=== PATIENT | male | born 1955 | race Two or more races ===

== ENCOUNTER 2016-11-28 16:06 | Inpatient (IN) | payer MEDICARE ==
[~2016-11-28] VITALS: Ht 170.2 cm; Wt 74.5 kg
[~2016-11-28 16:06] MED LIST: ALPR0.5T PO; ALPR0.5T6 PO; ALPR1TAB5; AMLO10TA2 PO; AMLO10TA4; AMLO10TA4 PO; ASPI-39 PO; CALC200T3 PO; CALC500O; CALC500T PO; CHOL20003 PO; CLON0.3T PO; CLOP75TA PO; DEXT50DI2 IV; DICY10CA53 PO; FERR210T; FURO80TA3 PO; FURO80TA72 PO; HYDR-2869; HYDR100T24 PO; Hydrocodone/Acetaminophen PO; ISOS30TA4 PO; LANT1000; LOSA100T6 PO; METO100T2 PO; OMEP20CA4 PO; OMEP20TA63 PO; PANT40TA3 PO; PARO10TA24 PO; PARO20TA2 PO; SULF500T PO; TAMS0.4C97 PO; VIT1TABL71 PO; [UNRECOGNIZED DRUG - CODE] PO; [UNRECOGNIZED DRUG - OTHER] PO
[2016-11-28 17:44] LABS: BASO # 0.1 x10^3/uL (0.0-0.2); BASO % 1 % (0-3); EOS % 3 % (0-3); HEMATOCRIT 35.3 % (39.0-53.0); HEMOGLOBIN 11.8 g/dL (13.0-17.5); LYMPH # 1.3 x10^3/uL (1.0-4.8); LYMPH % 12 % (24-48); MEAN CORPUSCULAR HEMOGLOBIN 31 pg (25-35); MEAN CORPUSCULAR HGB CONC 33 g/dL (31-37); MEAN CORPUSCULAR VOLUME 93 fL (79-100); MONO % 12 % (0-9); NEUT % 71 % (31-73); PLATELET COUNT 188 x10^3/uL (140-400); RED BLOOD COUNT 3.79 x10^6/uL (4.30-5.70); RED CELL DISTRIBUTION WIDTH 12.8 % (11.5-14.5)
[2016-11-28] MEDS ORDERED: ALPRAZOLAM 0.5 MG TABLET PO ONE (17:45)
[2016-11-28] MEDS ORDERED: IV NORMAL SALINE 500ML BAG 500 ML IV ONE (17:45)
[2016-11-28 18:00] LABS: ALBUMIN 3.8 g/dL (3.4-5.0); ALBUMIN/GLOBULIN RATIO 1.1 (1.0-1.7); CALCIUM 7.8 mg/dL (8.5-10.1); CREATININE 11.4 mg/dL (0.7-1.3); GFR 4.6; TOTAL BILIRUBIN 0.4 mg/dL (0.2-1.0); TOTAL PROTEIN 7.4 g/dL (6.4-8.2)
--- NOTE | 2016-11-28 18:02 | PHYS DOC ---
Past Medical History Past Medical History: Hypertension, AR, Renal Disease, Renal Failure Additional Past Medical Histor: Ulcers, Cardiac Stent, polycystic disease, dialysis Past Surgical History: Appendectomy, Cholecystectomy, Other Additional Past Surgical Histo: Dialysis shunt L) arm. cardiac stent, lens implants Alcohol Use: Sober Drug Use: None Adult General Chief Complaint Chief Complaint: NAUSEA/VOMITING/DIARRHA HPI HPI 61-year-old male with a history of multiple medical problems including end- stage renal disease on dialysis presents stating he has a headache and body aches some shortness of breath and generally just feeling bad. He states he had dialysis yesterday and was half a kilo below his dry weight. He also states that he is been very anxious lately and has actually out of his Xanax that he takes 3 times daily. He states he didn't have to wait and see his family doctor before he can get this prescription refill. He denies any fever chills or sweats. He's had a mild headache but no neck pain. He also states he has had a little bit of diarrhea today. He also saw his radar technician in the clinic and was told that his potassium was elevated. [] Review of Systems Review of Systems Constitutional: Denies fever or chills [] Eyes: Denies change in visual acuity, redness, or eye pain [] HENT: Denies nasal congestion or sore throat [] Respiratory: Denies cough or shortness of breath [] Cardiovascular: No additional information not addressed in HPI [] GI: Denies abdominal pain, nausea, vomiting, bloody stools or diarrhea [] : Denies dysuria or hematuria [] Musculoskeletal: Denies back pain or joint pain [] Integument: Denies rash or skin lesions [] Neurologic: Denies headache, focal weakness or sensory changes [] Endocrine: Denies polyuria or polydipsia [] Current Medications Current Medications Current Medications Medications (Trade) Dose Ordered Sig/Cirilo Start Time Stop Time Status Last Admin Dose Admin Albuterol Sulfate (Ventolin Neb Soln) 5 mg 1X ONCE 11/28/16 18:15 11/28/16 18:19 DC 11/28/16 18:39 5 MG Alprazolam 1 mg 1 mg 1X ONCE 11/28/16 17:45 11/28/16 17:46 DC 11/28/16 18:10 1 MG Calcium Gluconate 1,000 mg 1X ONCE 11/28/16 18:15 11/28/16 18:19 DC 11/28/16 18:28 1,000 MG Dextrose 25 gm 1X ONCE 11/28/16 18:15 11/28/16 18:19 DC 11/28/16 18:39 25 GM Insulin Human Regular (Novolin R Vial) 10 unit 1X ONCE 11/28/16 18:15 11/28/16 18:19 DC 11/28/16 18:37 10 UNIT Sodium Polystyrene Sulfonate (Kayexalate) 15 gm 1X ONCE 11/28/16 18:15 11/28/16 18:19 DC 11/28/16 18:39 15 GM Sodium Bicarbonate 50 meq 1X ONCE 11/28/16 18:15 11/28/16 18:19 DC 11/28/16 18:35 50 MEQ Sodium Chloride (Iv Sodium Chloride 0.9% 500ml Bag) 500 ml @ 0 mls/hr 1X ONCE 11/28/16 17:45 11/28/16 17:46 DC 11/28/16 18:10 0 MLS/HR Allergies Allergies Allergies Coded Allergies Type Severity Reaction Last Updated Verified aspirin Adverse Reaction Intermediate GI UPSET, TAKES 81MG ASPIRIN AT HOME 04/23 Yes Physical Exam Physical Exam Constitutional: Well developed, well nourished, no acute distress, non-toxic appearance. [] HENT: Normocephalic, atraumatic, bilateral external ears normal, oropharynx moist, no oral exudates, nose normal. [] Eyes: PERRLA, EOMI, conjunctiva normal, no discharge. [] Neck: Normal range of motion, no tenderness, supple, no stridor. [] Cardiovascular:Heart rate regular rhythm, no murmur [] Lungs & Thorax: Bilateral breath sounds clear to auscultation [] Abdomen: Bowel sounds normal, soft, no tenderness, no masses, no pulsatile masses. [] Skin: Warm, dry, no erythema, no rash. [] Back: No tenderness, no CVA tenderness. [] Extremities: Fistula left lower arm good thrill. [] Neurologic: Alert and oriented X 3, normal motor function, normal sensory function, no focal deficits noted. [] Psychologic: Very anxious. [] Current Patient Data Vital Signs Vital Signs Date Time Temp Pulse Resp B/P Pulse Ox O2 Delivery O2 Flow Rate FiO2 11/28/16 18:00 64 18 143/65 98 11/28/16 17:00 Room Air 11/28/16 16:30 96.8 96.8 Lab Values Laboratory Tests Test 11/28/16 17:34 11/28/16 18:14 White Blood Count 11.0x10^3/uL (4.0-11.0) Red Blood Count 3.79x10^6/uL (4.30-5.70) L Hemoglobin 11.8g/dL (13.0-17.5) L Hematocrit 35.3% (39.0-53.0) L Mean Corpuscular Volume 93fL (79-100) Mean Corpuscular Hemoglobin 31pg (25-35) Mean Corpuscular Hemoglobin Concent 33g/dL (31-37) Red Cell Distribution Width 12.8% (11.5-14.5) Platelet Count 188x10^3/uL (140-400) Neutrophils (%) (Auto) 71% (31-73) Lymphocytes (%) (Auto) 12% (24-48) L Monocytes (%) (Auto) 12% (0-9) H Eosinophils (%) (Auto) 3% (0-3) Basophils (%) (Auto) 1% (0-3) Neutrophils # (Auto) 7.8x10^3uL (1.8-7.7) H Lymphocytes # (Auto) 1.3x10^3/uL (1.0-4.8) Monocytes # (Auto) 1.3x10^3/uL (0.0-1.1) H Eosinophils # (Auto) 0.4x10^3/uL (0.0-0.7) Basophils # (Auto) 0.1x10^3/uL (0.0-0.2) Sodium Level 137mmol/L (136-145) Potassium Level 7.2mmol/L (3.5-5.1) *H Chloride Level 99mmol/L (98-107) Carbon Dioxide Level 23mmol/L (21-32) Anion Gap 15 (6-14) H Blood Urea Nitrogen 71mg/dL (8-26) H Creatinine 11.4mg/dL (0.7-1.3) H Estimated GFR (Cockcroft-Gault) 4.6 BUN/Creatinine Ratio 6 (6-20) Glucose Level 99mg/dL (70-99) Calcium Level 7.8mg/dL (8.5-10.1) L Total Bilirubin 0.4mg/dL (0.2-1.0) Aspartate Amino Transferase (AST) 16U/L (15-37) Alanine Aminotransferase (ALT) 17U/L (16-63) Alkaline Phosphatase 62U/L (46-116) WW-Lal-S-Type Natriuretic Peptide 27240mo/mL (0-124) H Total Protein 7.4g/dL (6.4-8.2) Albumin 3.8g/dL (3.4-5.0) Albumin/Globulin Ratio 1.1 (1.0-1.7) Influenza Type A Antigen Negative (NEGATIVE) Influenza Type B Antigen Negative (NEGATIVE) Laboratory Tests 11/28/16 17:34 Laboratory Tests 11/28/16 17:34 EKG EKG [] Radiology/Procedures Radiology/Procedures [] Course & Med Decision Making Course & Med Decision Making Pertinent Labs and Imaging studies reviewed. (See chart for details) [CRITICAL CARE time was 30 minutes - time exclusive of any procedures performed. Care included medical management, x-ray/lab interpretation, discussions with the patient and their family as well as appropriate medical consultants. ED course: Evaluation reveals 61-year-old male on dialysis with a potassium of 7.2. Patient was given multiple medications for his potassium and I spoke with the radar technician to [place] someone in to dialyze the patient.] Dragon Disclaimer Dragon Disclaimer This electronic medical record was generated, in whole or in part, using a voice recognition dictation system. Departure Departure Impression: Primary Impression: Hyperkalemia Disposition: ADMITTED INPATIENT Admitting Physician: Nevin Angel Condition: STABLE Referrals: TRACY POLANCO MD (PCP) GARETT SMITH DO Nov 28, 2016 18:02
[2016-11-28 18:12] LABS: POTASSIUM 7.2 mmol/L (3.5-5.1)
[2016-11-28] MEDS ORDERED: CALCIUM GLUCONATE 1,000 MG/10 ML VIAL IVP ONE (18:15)
[2016-11-28] MEDS ORDERED: SODIUM BICARB ADULT 8.4% 50 MEQ/50 ML DISP.SYRIN. IV ONE (18:15)
[2016-11-28] MEDS ORDERED: DEXTROSE 50% 25 GM / 50ML DISP.SYRIN. IV ONE (18:15)
[2016-11-28] MEDS ORDERED: ALBUTEROL SULFATE 2.5 MG/3 ML NEBU. NEB ONE (18:15)
[2016-11-28] MEDS ORDERED: SODIUM POLYSTYRENE SULFONATE 15 GM/60 ML ORAL.SUSP. PO ONE (18:15)
[2016-11-28] MEDS ORDERED: INSULIN REGULAR 100 UNIT/ML 10ML VIAL. IV ONE (18:15)
--- NOTE | 2016-11-28 18:22 | ACF ---
Admission Forms Criteria HYPONATREMIA; HYPERNATREMIA; HYPOKALEMIA; HYPERKALEMIA; HYPOCALCEMIA; HYPERCALCEMIA Clinical Indications for Inpatient Care (Place 'X' for any and all applicable criteria): Ongoing inpatient care may be indicated for ANY ONE of the following [G](1)(2)(3 )(5): [ ]I. Hyponatremia with ANY ONE of the following: [ ]a) Sodium less than 130 mEq/L (mmol/L) (new) (6)(22) [ ]b) Sodium less than 135 mEq/L (mmol/L) with ANY ONE of the following: [ ]i) Severe medical etiology requiring inpatient management (eg, heart failure, hypovolemia) [ ]ii) Altered mental status [ ]iii) Seizures [ ]II. Hypernatremia with ANY ONE of the following: [ ]a) Sodium greater than 155 mEq/L (mmol/L) [ ]b) Sodium greater than 150 mEq/L (mmol/L) with ANY ONE of the following: [ ] i) Altered mental status [ ]ii) Seizures [ ]iii) Severe medical etiology (eg, hypovolemia, diabetes insipidus) [ ]iv) Severe weakness [ ]v) Severe medical etiology (eg, hemolysis, infection, drug overdose) [ ]III. Hypokalemia with ANY ONE of the following: [ ]a) Potassium less than 2.5 mEq/L (mmol/L) despite outpatient and emergency treatment [ ]b) Potassium less than 3.0 mEq/L (mmol/L) with ANY ONE of the following: [ ]i) Weakness [ ]ii) Cardiac abnormality (eg, arrhythmia, conduction disturbance) [ ]iii) Cardiac ischemia [ ]iv) Ileus [ ]v) Ongoing medical cause requiring inpatient management. ( e.g., acute renal wasting, SIADH) [ ]vi) Other severe symptoms [X] IV. Hyperkalemia with ANY ONE of the following: [X]a) Potassium greater than 6.5 mEq/L (mmol/L) [ ]b) Potassium greater than 5 mEq/L (mmol/L) with ANY ONE of the following: [ ]i) Severe ECG findings [H] [ ]ii) Acute worsening of renal failure (creatinine greater than 2.5 mg/dL (221 micromoles/L) or significant elevation for age and size) [ ] V. Hypocalcemia with ANY ONE of the following: [ ]a) Calcium less than 7 mg/dL (1.75 mmol/L) despite outpatient and emergency treatment(19) [ ]b) Calcium less than 8 mg/dL (2 mmol/L) with significant symptoms or findings; examples include: [ ]i) Cardiac abnormality (eg, arrhythmia or conduction disturbance) [ ]ii) Altered mental status [ ]iii) Seizures [ ]iv) Breathing difficulty [ ]v) Muscle spasms [ ]. Hypercalcemia with ANY ONE of the following: [ ]a) Calcium greater than 14 mg/dL (3.5 mmol/L) [ ]b) Calcium greater than 12 mg/dL (3 mmol/L) with ANY ONE of the following: [ ]i) Significant dehydration or hypovolemia as indicated by ANY ONE of the following(2): [ ]1. Clinically significant dehydration as indicated by ANY ONE of the following: [ ]A. Acute loss of weight from baseline (5% of body weight in adults, 9% in pediatric patients) [ ]B. Hemodynamic instability [ ]C. Acute renal failure [ ]D. Serum sodium greater than 150 mEq/L (mmol/L) [ ]2) Dehydration that is persistent indicated by ALL of the following: [ ]A. Oral rehydration therapy not tolerated or insufficient to adequately correct dehydration [ ]B. Appropriate intravenous treatment (eg, fluids ) does not readily correct dehydration ie, after 12 to 24 hours of treatment) [ ]ii) Significant symptoms or findings; examples include: [ ]1) Altered mental status [ ]2) Cardiac abnormality (eg, arrhythmia, conduction disturbance) [ ]3) Cardiac abnormality (eg, arrhythmia, conduction disturbance) The original [facility] content created by [facility] has been revised. The portions of the content which have been revised are identified through the use of italic text or in bold, and [facility] has neither reviewed nor approved the modified material. All other unmodified content is copyright [facility] [employer] Please see references footnoted in the original [facility] [employer] edition 2016 Admission Criteria Met?: Yes YONI CRANE Nov 28, 2016 18:22
[2016-11-28] MEDS ORDERED: ONDANSETRON PF 4 MG/2 ML VIAL. IV PRN (18:30)
[2016-11-28 18:39] LABS: OBC FLU VALID
[2016-11-28] MEDS ORDERED: FENTANYL PF 100 MCG/2 ML VIAL. IV ONE (18:45)
[2016-11-28 19:45] VITALS: BP 130/62
[2016-11-28] MEDS ORDERED: IV NORMAL SALINE 1000ML BAG 1,000 ML IV PRN (20:36)
[2016-11-28] MEDS ORDERED: ALBUMIN HUMAN 25% 200 ML IV PRN (20:45)
[2016-11-28] MEDS ORDERED: ACETAMINOPHEN 500 MG TABLET PO PRN (20:45)
[2016-11-28] MEDS ORDERED: DIALYSIS PATIENT. MC PRN (20:45)
[2016-11-28] MEDS ORDERED: TAMSULOSIN 0.4 MG CAP.ER.24H. PO SCH (21:00)
[2016-11-28] MEDS: DIPHENHYDRAMINE 50 MG/ML VIAL IV PRN (21:03)
--- NOTE | 2016-11-28 21:35 | PDOC1 ---
History and Physical Date of Admission Date of Admission DATE: 11/28/16 TIME: 21:28 Identification/Chief Complaint Chief Complaint muscle cramps Source Source: Chart review, Patient History of Present Illness History of Present Illness Mr. Long is a 61-year-old male presents stating he has a headache and body aches some shortness of breath. He had foot and hand cramps and did not feel well in the ER. He went to HD yesterday and was compliant with diet, his K+ was 7.2, Ca++ insulin given, to HD, and he now feels better, I saw him in the hallway of the ER 3 hours ago, and now on HD, he reports feeling much better, better str. and no cramps He's had a mild headache but no neck pain. . [] Past Medical History Cardiovascular: CAD, HTN, [place] Pulmonary: Other GI: Constipation, GERD, Other Heme/Onc: Anemia NOS Psych: Depression Renal/: Chronic renal failure, Other Endocrine: Hyperparathyroidism Past Surgical History Past Surgical History: Appendectomy, Cholecystectomy, Other Family History Family History: Cancer, Diabetes, Kidney Disease, Stroke Social History Smoke: No ALCOHOL: none Drugs: None Current Problem List Problem List Problems Medical Problems: (1) Hyperkalemia Status: Acute Problems: Current Medications Current Medications Current Medications Alprazolam 1 mg 1 mg 1X ONCE PO Last administered on 11/28/16 18:10; Start at 17:45; Stop 11/28/16 at 17:46; Status DC Sodium Chloride (Iv Sodium Chloride 0.9% 500ml Bag) 500 ml @ 0 mls/hr 1X ONCE IV Last administered on 11/28/16 18:10; Start 11/28/16 at 17:45; Stop at 17:46; Status DC Sodium Polystyrene Sulfonate (Kayexalate) 15 gm 1X ONCE PO Last administered on 11/28/16 18:39; Start 11/28/16 at 18:15; Stop 11/28/16 at 18:19; Status DC Sodium Bicarbonate 50 meq 1X ONCE IV Last administered on 11/28/16 18:35; Start 11/28/16 at 18:15; Stop 11/28/16 at 18:19; Status DC Dextrose 25 gm 1X ONCE IV Last administered on 11/28/16 18:39; Start at 18:15; Stop 11/28/16 at 18:19; Status DC Insulin Human Regular (Novolin R Vial) 10 unit 1X ONCE IV Last administered on 11/28/16 18:37; Start 11/28/16 at 18:15; Stop 11/28/16 at 18:19; Status DC Calcium Gluconate 1,000 mg 1X ONCE IVP Last administered on 11/28/16 18:28; Start 11/28/16 at 18:15; Stop 11/28/16 at 18:19; Status DC Albuterol Sulfate (Ventolin Neb Soln) 5 mg 1X ONCE NEB Last administered on 18:39; Start 11/28/16 at 18:15; Stop 11/28/16 at 18:19; Status DC Ondansetron HCl (Zofran) 4 mg PRN Q8HRS PRN IV NAUSEA/VOMITING; Start 11/28/16 at 18:30; Stop 11/29/16 at 18:29 Fentanyl Citrate (Fentanyl 2ml Vial) 50 mcg 1X ONCE IV Last administered on 18:43; Start 11/28/16 at 18:45; Stop 11/28/16 at 18:46; Status DC Amlodipine Besylate (Norvasc) 10 mg BID PO ; Start 11/28/16 at 21:00 Tamsulosin HCl (Flomax) 0.4 mg QHS PO ; Start 11/28/16 at 21:00 Hydralazine HCl (Apresoline) 100 mg TID PO ; Start 11/28/16 at 21:00 Metoprolol Tartrate 100 mg 100 mg BID PO ; Start 11/28/16 at 21:00 Sodium Chloride 1,000 ml @ 1,000 mls/hr Q1H PRN IV hypotension; Start 11/28/16 at 20:36; Stop 11/29/16 at 02:35 Albumin Human (Albuminar) 200 ml @ 200 mls/hr 1X PRN PRN IV Hypotension; Start 11/28/16 at 20:45; Stop 11/29/16 at 02:44 Acetaminophen (Tylenol) 500 mg 1X PRN PRN PO MILD PAIN / TEMP; Start 11/28/16 at 20:45; Stop 11/29/16 at 20:44 Diphenhydramine HCl (Benadryl) 25 mg 1X PRN PRN IV ITCHING Last administered on 11/28/16t 21:03; Start 11/28/16 at 20:45; Stop 11/29/16 at 20:44 Info (PHARMACY MONITORING -- do not chart) 1 each PRN DAILY PRN MC SEE COMMENTS ; Start 11/28/16 at 20:45 Active Scripts Active Isosorbide Mononitrate Er (Isosorbide Mononitrate) 30 Mg Tab.er.24h 30 Mg PO DAILY Flomax (Tamsulosin Hcl) 0.4 Mg Cap.er.24h 0.4 Mg PO QHS Reported Paroxetine Cr (Paroxetine HCl) 12.5 Mg Tab.er.24h 10 Mg PO DAILY Omeprazole Magnesium 20 Mg Capsule.dr 20 Mg PO Clopidogrel (Clopidogrel Bisulfate) 75 Mg Tablet 1 Tab PO DAILY Clonidine Hcl 0.3 Mg Tablet 1 Tab PO Calcium Carbonate 500 Mg Tablet 2,000 Mg PO TIDWMEALS Hydralazine Hcl 100 Mg Tablet 100 Mg PO TID LAST DOSE: 02/24/16 AFTERNOON NEXT DOSE: 02/24/16 BEDTIME Amlodipine Besylate 10 Mg Tablet 10 Mg PO BID LAST DOSE: 02/24/16 AM NEXT DOSE: 02/25/16 AM Xanax (Alprazolam) 0.5 Mg Tablet 0.5 Mg PO Q6HRS PRN LAST DOSE: 02/23/16 BEDTIME NEXT DOSE: 02/24/16 BEDTIME Losartan Potassium 100 Mg Tablet 100 Mg PO HS LAST DOSE: 02/23/16 BEDTIME NEXT DOSE: 02/24/16 BEDTIME Metoprolol Tartrate 100 Mg Tablet 100 Mg PO BID LAST DOSE: 02/24/16 AM NEXT DOSE: 02/24/16 BEDTIME Lillian Chewable (Aspirin) 81 Mg Tab.chew 81 Mg PO DAILY LAST DOSE: 02/24/16 AM NEXT DOSE: 02/25/16 AM Allergies Allergies: Coded Allergies: aspirin (Verified Adverse Reaction, Intermediate, GI UPSET, TAKES 81MG ASPIRIN AT HOME, 04/23/16) Pt states GI upset with higher doses of ASA, tolerates 81mg daily home med ASA. ROS General: YES: Fatigue, Malaise, No: Appetite, Chills, Night Sweats, Other PSYCHOLOGICAL ROS: No: Anxiety, Behavioral Disorder, Concentration difficultie , Decreased libido, Depression, Disorientation, Hallucinations, Hostility, Irritablity, Memory difficulties, Mood Swings, Obsessive thoughts, Other, Physical abuse, Sexual abuse, Sleep disturbances, Suicidal ideation Eyes: No Blurry vision, No Decreased vision, No Double vision, No Dry eyes, No Excessive tearing, No Eye Pain, No Itchy Eyes, No Loss of vision, No Other, No Photophobia, No Scotomata, No Uses contacts, No Uses glasses HEENT: YES: Heacaches, No: Epistaxis, Hearing change, Nasal congestion, Nasal discharge, Oral lesions, Other, Sinus pain, Sneezing, Snoring, Sore Throat, Tinnitus, Vertigo, Visual Changes, Vocal changes Respiratory: No: Cough, Hemoptysis, Orthopnea, Other, Pleuritic Pain, SOB with excertion, Shortness of breath, Sputum Changes, Stridor, Tachypnea, Wheezing Cardiovascular: No Chest Pain, No Edema, No Lt Headedness, No Orthopnea, No Other, No Palpitations, No Paroxysmal Noc. Dyspnea Gastrointestinal: No Abdominal Pain, No Constipation, No Diarrhea, No Hematochezia, No Melena, No Nausea, No Other, No Vomiting Genitourinary: No , No , No , No , No , No , No , No Discharge, No Dysuria, No Flank Pain, No Frequency, No Hematuria, No Incontinence, No Other, No Pain, No Retention, No Urgency Musculoskeletal: Yes Muscle Pain, Yes Muscular Weakness, No Gait Disturbance, No Joint Pain, No Joint Stiffness, No Joint Swelling, No Other, No Pain In:, No Swelling In: Neurological: Yes Gait Disturbance, No Behavorial Changes, No Bowel/Bladder ControlChng, No Confusion, No Dizziness, No Headaches, No Impaired Coord/balance, No Memory Loss, No Numbness/ Tingling, No Other, No Seizures, No Speech Problems, No Tremors, No Visual Changes, No Weakness Skin: No Acne, No Dry Skin, No Eczema, No Hair Changes, No Lumps, No Mole Changes, No Mottling, No Nail Changes, No Other, No Pruritus, No Rash, No Skin Lesion Changes Physical Exam General: Alert, Oriented X3, Cooperative HEENT: Atraumatic, EOMI, Mucous membr. moist/pink Lungs: Normal air movement Heart: no gallops, no murmurs Abdomen: Normal bowel sounds, Soft Rectal Exam: not examined Extremities: No edema Skin: No significant lesion Neuro: Normal gait, Cranial nerves 3-12 NL Psych/Mental Status: Mood NL Vitals Vitals Vital Signs Date Time Temp Pulse Resp B/P Pulse Ox O2 Delivery O2 Flow Rate FiO2 11/28/16 19:45 97.9 86 22 130/62 96 Room Air 97.9 Labs Labs Laboratory Tests Test 11/28/16 17:34 11/28/16 18:14 White Blood Count 11.0x10^3/uL (4.0-11.0) Red Blood Count 3.79x10^6/uL (4.30-5.70) Hemoglobin 11.8g/dL (13.0-17.5) Hematocrit 35.3% (39.0-53.0) Mean Corpuscular Volume 93fL (79-100) Mean Corpuscular Hemoglobin 31pg (25-35) Mean Corpuscular Hemoglobin Concent 33g/dL (31-37) Red Cell Distribution Width 12.8% (11.5-14.5) Platelet Count 188x10^3/uL (140-400) Neutrophils (%) (Auto) 71% (31-73) Lymphocytes (%) (Auto) 12% (24-48) Monocytes (%) (Auto) 12% (0-9) Eosinophils (%) (Auto) 3% (0-3) Basophils (%) (Auto) 1% (0-3) Neutrophils # (Auto) 7.8x10^3uL (1.8-7.7) Lymphocytes # (Auto) 1.3x10^3/uL (1.0-4.8) Monocytes # (Auto) 1.3x10^3/uL (0.0-1.1) Eosinophils # (Auto) 0.4x10^3/uL (0.0-0.7) Basophils # (Auto) 0.1x10^3/uL (0.0-0.2) Sodium Level 137mmol/L (136-145) Potassium Level 7.2mmol/L (3.5-5.1) Chloride Level 99mmol/L (98-107) Carbon Dioxide Level 23mmol/L (21-32) Anion Gap 15 (6-14) Blood Urea Nitrogen 71mg/dL (8-26) Creatinine 11.4mg/dL (0.7-1.3) Estimated GFR (Cockcroft-Gault) 4.6 BUN/Creatinine Ratio 6 (6-20) Glucose Level 99mg/dL (70-99) Calcium Level 7.8mg/dL (8.5-10.1) Total Bilirubin 0.4mg/dL (0.2-1.0) Aspartate Amino Transf (AST/SGOT) 16U/L (15-37) Alanine Aminotransferase (ALT/SGPT) 17U/L (16-63) Alkaline Phosphatase 62U/L (46-116) UU-Bmx-F-Type Natriuretic Peptide 04223fs/mL (0-124) Total Protein 7.4g/dL (6.4-8.2) Albumin 3.8g/dL (3.4-5.0) Albumin/Globulin Ratio 1.1 (1.0-1.7) Influenza Type A Antigen Negative (NEGATIVE) Influenza Type B Antigen Negative (NEGATIVE) Laboratory Tests Test 11/28/16 17:34 11/28/16 18:14 White Blood Count 11.0x10^3/uL (4.0-11.0) Red Blood Count 3.79x10^6/uL (4.30-5.70) Hemoglobin 11.8g/dL (13.0-17.5) Hematocrit 35.3% (39.0-53.0) Mean Corpuscular Volume 93fL (79-100) Mean Corpuscular Hemoglobin 31pg (25-35) Mean Corpuscular Hemoglobin Concent 33g/dL (31-37) Red Cell Distribution Width 12.8% (11.5-14.5) Platelet Count 188x10^3/uL (140-400) Neutrophils (%) (Auto) 71% (31-73) Lymphocytes (%) (Auto) 12% (24-48) Monocytes (%) (Auto) 12% (0-9) Eosinophils (%) (Auto) 3% (0-3) Basophils (%) (Auto) 1% (0-3) Neutrophils # (Auto) 7.8x10^3uL (1.8-7.7) Lymphocytes # (Auto) 1.3x10^3/uL (1.0-4.8) Monocytes # (Auto) 1.3x10^3/uL (0.0-1.1) Eosinophils # (Auto) 0.4x10^3/uL (0.0-0.7) Basophils # (Auto) 0.1x10^3/uL (0.0-0.2) Sodium Level 137mmol/L (136-145) Potassium Level 7.2mmol/L (3.5-5.1) Chloride Level 99mmol/L (98-107) Carbon Dioxide Level 23mmol/L (21-32) Anion Gap 15 (6-14) Blood Urea Nitrogen 71mg/dL (8-26) Creatinine 11.4mg/dL (0.7-1.3) Estimated GFR (Cockcroft-Gault) 4.6 BUN/Creatinine Ratio 6 (6-20) Glucose Level 99mg/dL (70-99) Calcium Level 7.8mg/dL (8.5-10.1) Total Bilirubin 0.4mg/dL (0.2-1.0) Aspartate Amino Transf (AST/SGOT) 16U/L (15-37) Alanine Aminotransferase (ALT/SGPT) 17U/L (16-63) Alkaline Phosphatase 62U/L (46-116) QS-Dbr-Q-Type Natriuretic Peptide 22757zn/mL (0-124) Total Protein 7.4g/dL (6.4-8.2) Albumin 3.8g/dL (3.4-5.0) Albumin/Globulin Ratio 1.1 (1.0-1.7) Influenza Type A Antigen Negative (NEGATIVE) Influenza Type B Antigen Negative (NEGATIVE) VTE Prophylaxis Ordered VTE Prophylaxis Devices: Yes VTE Pharmacological Prophylaxi: No Assessment/Plan Assessment/Plan muscle cramps hyperkalemia ESRD admit for urgent HD tonight chronic diastolic CHF, htn BPH anemia of chronic CKD anxiety depression appear improved HD tonight, labs in JANNA VERA MD Nov 28, 2016 21:35
[2016-11-28] MEDS ORDERED: ALPRAZOLAM 0.5 MG TABLET PO PRN (21:45)
[2016-11-28] MEDS ORDERED: DIPHENHYDRAMINE HCL 25 MG CAPSULE PO PRN (22:00)
[2016-11-28] MEDS: AMLODIPINE BESYLATE 10 MG TABLET PO SCH (23:37)
[2016-11-28] MEDS: HYDRALAZINE 50 MG TABLET PO SCH (23:38)
[2016-11-28] MEDS: METOPROLOL TART IMMED RELEASE 50 MG TABLET PO SCH (23:38)
[2016-11-28] MEDS: CLONIDINE HCL 0.3 MG TABLET PO SCH (23:39)
[2016-11-28 23:43] VITALS: BP 168/78
[2016-11-29 03:20] VITALS: BP 101/49
[2016-11-29 05:50] LABS: BASO # 0.1 x10^3/uL (0.0-0.2); BASO % 1 % (0-3); EOS % 3 % (0-3); HEMATOCRIT 30.6 % (39.0-53.0); HEMOGLOBIN 10.2 g/dL (13.0-17.5); LYMPH # 1.2 x10^3/uL (1.0-4.8); LYMPH % 17 % (24-48); MEAN CORPUSCULAR HEMOGLOBIN 31 pg (25-35); MEAN CORPUSCULAR HGB CONC 34 g/dL (31-37); MEAN CORPUSCULAR VOLUME 94 fL (79-100); MONO % 12 % (0-9); NEUT % 67 % (31-73); PLATELET COUNT 150 x10^3/uL (140-400); RED BLOOD COUNT 3.26 x10^6/uL (4.30-5.70); RED CELL DISTRIBUTION WIDTH 12.9 % (11.5-14.5); WHITE BLOOD COUNT 7.1 x10^3/uL (4.0-11.0)
[2016-11-29 06:03] LABS: CALCIUM 7.7 mg/dL (8.5-10.1); CREATININE 8.1 mg/dL (0.7-1.3); GFR 6.8; POTASSIUM 4.1 mmol/L (3.5-5.1)
[2016-11-29 06:06] LABS: MAGNESIUM 2.3 mg/dL (1.8-2.4); PHOSPHORUS 7.2 mg/dL (2.6-4.7)
--- NOTE | 2016-11-29 06:41 | EKG ---
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
--- NOTE | 2016-11-29 07:27 | RAD ---
EXAM: Chest, single view. HISTORY: Cramping. COMPARISON: 09/05/2016. FINDINGS: A frontal view of the chest is obtained. There is no consolidation, effusion or pneumothorax. The heart is normal in size. There is a left port catheter with the tip in the superior vena cava.. There is nodular opacity overlying the right lower lobe, possibly corresponding with the combination of a nipple shadow and airspace disease within the right lower lobe on a prior CT. IMPRESSION: 1. No acute pulmonary finding. 2. Nodular opacity within the right lower lobe, possibly due to a nipple shadow and atelectasis or scarring when compared to a prior CT.
[2016-11-29 07:55] VITALS: BP 96/42
[2016-11-29] MEDS ORDERED: CALCIUM CARBONATE 500 MG TABLET PO SCH (08:00)
[2016-11-29] MEDS: CLONIDINE HCL 0.3 MG TABLET PO SCH (09:00)
[2016-11-29] MEDS ORDERED: ASPIRIN 81 MG TAB.CHEW PO SCH (09:00)
[2016-11-29] MEDS ORDERED: CLOPIDOGREL BISULFATE 75 MG TABLET PO SCH (09:00)
[2016-11-29] MEDS ORDERED: ISOSORBIDE MONONITRATE ER 30 MG TAB.ER.24H PO SCH (09:00)
[2016-11-29] MEDS ORDERED: PAROXETINE 10 MG TABLET. PO SCH (09:00)
[2016-11-29] MEDS ORDERED: IV NORMAL SALINE 1000ML BAG 1,000 ML IV PRN (10:12)
[2016-11-29] MEDS ORDERED: DIPHENHYDRAMINE 50 MG/ML VIAL IV PRN ×2 (10:15)
[2016-11-29] MEDS ORDERED: ACETAMINOPHEN 500 MG TABLET PO PRN (10:15)
[2016-11-29] MEDS ORDERED: DIALYSIS PATIENT. MC PRN (10:15)
[2016-11-29] MEDS ORDERED: ALBUMIN HUMAN 25% 200 ML IV PRN (10:15)
[2016-11-29] MEDS: DIPHENHYDRAMINE 50 MG/ML VIAL IV PRN (10:50)
--- NOTE | 2016-11-29 11:28 | PDOC2 ---
CONSULT Date of Consult Date of Consult DATE: 11/29/16 TIME: 11:24 Reason for Consult Reason for Consult: HYPERKALEMIA AND ESRD Referring Physician Referring Physician: FEDERICA Identification/Chief Complaint Chief Complaint GENERALIZED WEAKNESS Source Source: Chart review, Patient History of Present Illness Reason for Visit: THIS IS A 61 YR OLD ADMITTED WITH COMPLAINTS OF WEAKNESS WHEN HE WAS NOTED TO HAVE A K OF 7.2. HE HAS ESRD AND IS COMPLIANT WITH HIS HD ON TTS IN [place]. HE HAS HAD SIMILAR PRESENTATIONS IN THE PAST. OTHERWISE LABS ARE C/ W ESRD Past Medical History Cardiovascular: CAD, HTN, [place] Pulmonary: Other GI: Constipation, GERD, Other Heme/Onc: Anemia NOS Psych: Depression Renal/: Chronic renal failure, Other Endocrine: Hyperparathyroidism Past Surgical History Past Surgical History: Appendectomy, Cholecystectomy, Other Family History Family History: Cancer, Diabetes, Kidney Disease, Stroke Social History No ALCOHOL: none Drugs: None Lives: with Family Domestic Violence: Neg Current Problem List Problem List Problems Medical Problems: (1) Hyperkalemia Status: Acute Current Medications Current Medications Current Medications Alprazolam 1 mg 1 mg 1X ONCE PO Last administered on 11/28/16 18:10; Start at 17:45; Stop 11/28/16 at 17:46; Status DC Sodium Chloride (Iv Sodium Chloride 0.9% 500ml Bag) 500 ml @ 0 mls/hr 1X ONCE IV Last administered on 11/28/16 18:10; Start 11/28/16 at 17:45; Stop at 17:46; Status DC Sodium Polystyrene Sulfonate (Kayexalate) 15 gm 1X ONCE PO Last administered on 11/28/16 18:39; Start 11/28/16 at 18:15; Stop 11/28/16 at 18:19; Status DC Sodium Bicarbonate 50 meq 1X ONCE IV Last administered on 11/28/16 18:35; Start 11/28/16 at 18:15; Stop 11/28/16 at 18:19; Status DC Dextrose 25 gm 1X ONCE IV Last administered on 11/28/16 18:39; Start at 18:15; Stop 11/28/16 at 18:19; Status DC Insulin Human Regular (Novolin R Vial) 10 unit 1X ONCE IV Last administered on 11/28/16 18:37; Start 11/28/16 at 18:15; Stop 11/28/16 at 18:19; Status DC Calcium Gluconate 1,000 mg 1X ONCE IVP Last administered on 11/28/16 18:28; Start 11/28/16 at 18:15; Stop 11/28/16 at 18:19; Status DC Albuterol Sulfate (Ventolin Neb Soln) 5 mg 1X ONCE NEB Last administered on 18:39; Start 11/28/16 at 18:15; Stop 11/28/16 at 18:19; Status DC Ondansetron HCl (Zofran) 4 mg PRN Q8HRS PRN IV NAUSEA/VOMITING; Start 11/28/16 at 18:30; Stop 11/29/16 at 18:29 Fentanyl Citrate (Fentanyl 2ml Vial) 50 mcg 1X ONCE IV Last administered on 18:43; Start 11/28/16 at 18:45; Stop 11/28/16 at 18:46; Status DC Amlodipine Besylate (Norvasc) 10 mg BID PO Last administered on 11/28/16 23:37 ; Start 11/28/16 at 21:00 Tamsulosin HCl (Flomax) 0.4 mg QHS PO Last administered on 11/28/16 23:37; Start 11/28/16 at 21:00 Hydralazine HCl (Apresoline) 100 mg TID PO Last administered on 11/28/16 23:38 ; Start 11/28/16 at 21:00 Metoprolol Tartrate 100 mg 100 mg BID PO Last administered on 11/28/16 23:38; Start 11/28/16 at 21:00 Sodium Chloride 1,000 ml @ 1,000 mls/hr Q1H PRN IV hypotension; Start 11/28/16 at 20:36; Stop 11/29/16 at 02:35; Status DC Albumin Human (Albuminar) 200 ml @ 200 mls/hr 1X PRN PRN IV Hypotension; Start 11/28/16 at 20:45; Stop 11/29/16 at 02:44; Status DC Acetaminophen (Tylenol) 500 mg 1X PRN PRN PO MILD PAIN / TEMP; Start 11/28/16 at 20:45; Stop 11/29/16 at 20:44 Diphenhydramine HCl (Benadryl) 25 mg 1X PRN PRN IV ITCHING Last administered on 11/29/16 10:50; Start 11/28/16 at 20:45; Stop 11/29/16 at 20:44 Info (PHARMACY MONITORING -- do not chart) 1 each PRN DAILY PRN MC SEE COMMENTS ; Start 11/28/16 at 20:45 Alprazolam (Xanax) 0.5 mg PRN Q6HRS PRN PO ANXIETY / AGITATION Last administered on 11/29/16 05:47; Start 11/28/16 at 21:45 Aspirin (Children'S Aspirin) 81 mg DAILY PO ; Start 11/29/16 at 09:00 Calcium Carbonate/ Glycine (Oscal) 2,000 mg TIDWMEALS PO ; Start 11/29/16 at 08: 00 Clonidine HCl (Catapres) 0.3 mg BID PO Last administered on 11/28/16 23:39; Start 11/28/16 at 22:00 Clopidogrel Bisulfate (Plavix) 75 mg DAILY PO ; Start 11/29/16 at 09:00 Isosorbide Mononitrate (Imdur) 30 mg DAILY PO ; Start 11/29/16 at 09:00 Paroxetine HCl (Paxil) 10 mg DAILY PO ; Start 11/29/16 at 09:00 Diphenhydramine HCl 50 mg 50 mg PRN Q6HRS PRN PO ITCHING; Start 11/28/16 at 22: 00 Sodium Chloride 1,000 ml @ 1,000 mls/hr Q1H PRN IV hypotension; Start 11/29/16 at 10:12; Stop 11/29/16 at 16:11 Albumin Human (Albuminar) 200 ml @ 200 mls/hr 1X PRN PRN IV Hypotension; Start 11/29/16 at 10:15; Stop 11/29/16 at 16:14 Acetaminophen (Tylenol) 500 mg 1X PRN PRN PO MILD PAIN / TEMP; Start 11/29/16 at 10:15; Stop 11/30/16 at 10:14 Diphenhydramine HCl (Benadryl) 25 mg 1X PRN PRN IV ITCHING; Start 11/29/16 at 10:15; Stop 11/30/16 at 10:14 Diphenhydramine HCl (Benadryl) 25 mg 1X PRN PRN IV ITCHING; Start 11/29/16 at 10:15; Stop 11/30/16 at 10:14 Info (PHARMACY MONITORING -- do not chart) 1 each PRN DAILY PRN MC SEE COMMENTS ; Start 11/29/16 at 10:15; Status UNV Active Scripts Active Isosorbide Mononitrate Er (Isosorbide Mononitrate) 30 Mg Tab.er.24h 30 Mg PO DAILY Flomax (Tamsulosin Hcl) 0.4 Mg Cap.er.24h 0.4 Mg PO QHS Reported Paroxetine Cr (Paroxetine HCl) 12.5 Mg Tab.er.24h 10 Mg PO DAILY Omeprazole Magnesium 20 Mg Capsule.dr 20 Mg PO Clopidogrel (Clopidogrel Bisulfate) 75 Mg Tablet 1 Tab PO DAILY Clonidine Hcl 0.3 Mg Tablet 1 Tab PO Calcium Carbonate 500 Mg Tablet 2,000 Mg PO TIDWMEALS Hydralazine Hcl 100 Mg Tablet 100 Mg PO TID LAST DOSE: 02/24/16 AFTERNOON NEXT DOSE: 02/24/16 BEDTIME Amlodipine Besylate 10 Mg Tablet 10 Mg PO BID LAST DOSE: 02/24/16 AM NEXT DOSE: 02/25/16 AM Xanax (Alprazolam) 0.5 Mg Tablet 0.5 Mg PO Q6HRS PRN LAST DOSE: 02/23/16 BEDTIME NEXT DOSE: 02/24/16 BEDTIME Losartan Potassium 100 Mg Tablet 100 Mg PO HS LAST DOSE: 02/23/16 BEDTIME NEXT DOSE: 02/24/16 BEDTIME Metoprolol Tartrate 100 Mg Tablet 100 Mg PO BID LAST DOSE: 02/24/16 AM NEXT DOSE: 02/24/16 BEDTIME Lillian Chewable (Aspirin) 81 Mg Tab.chew 81 Mg PO DAILY LAST DOSE: 02/24/16 AM NEXT DOSE: 02/25/16 AM Allergies Allergies: Coded Allergies: aspirin (Verified Adverse Reaction, Intermediate, GI UPSET, TAKES 81MG ASPIRIN AT HOME, 04/23/16) Pt states GI upset with higher doses of ASA, tolerates 81mg daily home med ASA. ROS General: YES: Appetite, Fatigue PSYCHOLOGICAL ROS: YES: Anxiety Eyes: Yes Decreased vision HEENT: YES: Heacaches ALLERGY AND IMMUNOLOGY: YES: Hives Respiratory: YES: Cough, Shortness of breath Gastrointestinal: Yes Constipation Genitourinary: YES Other (OLIGURIC) Musculoskeletal: Yes Muscular Weakness Neurological: Yes Weakness Skin: Yes Dry Skin Physical Exam General: Alert, Oriented X3, Cooperative, No acute distress HEENT: Atraumatic, PERRLA, EOMI, Mucous membr. moist/pink Lungs: Clear to auscultation, Normal air movement Heart: Regular rate, Normal S1, Normal S2 Abdomen: Normal bowel sounds, Soft, No tenderness Extremities: No clubbing Skin: No rashes Neuro: Normal speech, Cranial nerves 3-12 NL Psych/Mental Status: Mental status NL, Mood NL MUSCULOSKELETAL: No deformity, No swelling Vitals VITALS Vital Signs Date Time Temp Pulse Resp B/P Pulse Ox O2 Delivery O2 Flow Rate FiO2 11/29/16 07:55 97.9 53 18 96/42 98 Room Air 97.9 Labs Labs Laboratory Tests Test 11/28/16 17:34 11/28/16 18:14 11/28/16 19:31 11/28/16 19:45 White Blood Count 11.0x10^3/uL (4.0-11.0) Red Blood Count 3.79x10^6/uL (4.30-5.70) Hemoglobin 11.8g/dL (13.0-17.5) Hematocrit 35.3% (39.0-53.0) Mean Corpuscular Volume 93fL (79-100) Mean Corpuscular Hemoglobin 31pg (25-35) Mean Corpuscular Hemoglobin Concent 33g/dL (31-37) Red Cell Distribution Width 12.8% (11.5-14.5) Platelet Count 188x10^3/uL (140-400) Neutrophils (%) (Auto) 71% (31-73) Lymphocytes (%) (Auto) 12% (24-48) Monocytes (%) (Auto) 12% (0-9) Eosinophils (%) (Auto) 3% (0-3) Basophils (%) (Auto) 1% (0-3) Neutrophils # (Auto) 7.8x10^3uL (1.8-7.7) Lymphocytes # (Auto) 1.3x10^3/uL (1.0-4.8) Monocytes # (Auto) 1.3x10^3/uL (0.0-1.1) Eosinophils # (Auto) 0.4x10^3/uL (0.0-0.7) Basophils # (Auto) 0.1x10^3/uL (0.0-0.2) Sodium Level 137mmol/L (136-145) Potassium Level 7.2mmol/L (3.5-5.1) Chloride Level 99mmol/L (98-107) Carbon Dioxide Level 23mmol/L (21-32) Anion Gap 15 (6-14) Blood Urea Nitrogen 71mg/dL (8-26) Creatinine 11.4mg/dL (0.7-1.3) Estimated GFR (Cockcroft-Gault) 4.6 BUN/Creatinine Ratio 6 (6-20) Glucose Level 99mg/dL (70-99) Calcium Level 7.8mg/dL (8.5-10.1) Total Bilirubin 0.4mg/dL (0.2-1.0) Aspartate Amino Transf (AST/SGOT) 16U/L (15-37) Alanine Aminotransferase (ALT/SGPT) 17U/L (16-63) Alkaline Phosphatase 62U/L (46-116) TQ-Gok-L-Type Natriuretic Peptide 27618sa/mL (0-124) Total Protein 7.4g/dL (6.4-8.2) Albumin 3.8g/dL (3.4-5.0) Albumin/Globulin Ratio 1.1 (1.0-1.7) Influenza Type A Antigen Negative (NEGATIVE) Influenza Type B Antigen Negative (NEGATIVE) Glucose (Fingerstick) 25mg/dL (70-99) 131mg/dL (70-99) Test 11/28/16 20:37 11/29/16 05:20 11/29/16 08:33 Glucose (Fingerstick) 100mg/dL (70-99) 77mg/dL (70-99) White Blood Count 7.1x10^3/uL (4.0-11.0) Red Blood Count 3.26x10^6/uL (4.30-5.70) Hemoglobin 10.2g/dL (13.0-17.5) Hematocrit 30.6% (39.0-53.0) Mean Corpuscular Volume 94fL (79-100) Mean Corpuscular Hemoglobin 31pg (25-35) Mean Corpuscular Hemoglobin Concent 34g/dL (31-37) Red Cell Distribution Width 12.9% (11.5-14.5) Platelet Count 150x10^3/uL (140-400) Neutrophils (%) (Auto) 67% (31-73) Lymphocytes (%) (Auto) 17% (24-48) Monocytes (%) (Auto) 12% (0-9) Eosinophils (%) (Auto) 3% (0-3) Basophils (%) (Auto) 1% (0-3) Neutrophils # (Auto) 4.8x10^3uL (1.8-7.7) Lymphocytes # (Auto) 1.2x10^3/uL (1.0-4.8) Monocytes # (Auto) 0.9x10^3/uL (0.0-1.1) Eosinophils # (Auto) 0.2x10^3/uL (0.0-0.7) Basophils # (Auto) 0.1x10^3/uL (0.0-0.2) Sodium Level 142mmol/L (136-145) Potassium Level 4.1mmol/L (3.5-5.1) Chloride Level 100mmol/L (98-107) Carbon Dioxide Level 27mmol/L (21-32) Anion Gap 15 (6-14) Blood Urea Nitrogen 45mg/dL (8-26) Creatinine 8.1mg/dL (0.7-1.3) Estimated GFR (Cockcroft-Gault) 6.8 Glucose Level 128mg/dL (70-99) Calcium Level 7.7mg/dL (8.5-10.1) Phosphorus Level 7.2mg/dL (2.6-4.7) Magnesium Level 2.3mg/dL (1.8-2.4) Laboratory Tests Test 11/28/16 17:34 11/28/16 18:14 11/28/16 19:31 11/28/16 19:45 White Blood Count 11.0x10^3/uL (4.0-11.0) Red Blood Count 3.79x10^6/uL (4.30-5.70) Hemoglobin 11.8g/dL (13.0-17.5) Hematocrit 35.3% (39.0-53.0) Mean Corpuscular Volume 93fL (79-100) Mean Corpuscular Hemoglobin 31pg (25-35) Mean Corpuscular Hemoglobin Concent 33g/dL (31-37) Red Cell Distribution Width 12.8% (11.5-14.5) Platelet Count 188x10^3/uL (140-400) Neutrophils (%) (Auto) 71% (31-73) Lymphocytes (%) (Auto) 12% (24-48) Monocytes (%) (Auto) 12% (0-9) Eosinophils (%) (Auto) 3% (0-3) Basophils (%) (Auto) 1% (0-3) Neutrophils # (Auto) 7.8x10^3uL (1.8-7.7) Lymphocytes # (Auto) 1.3x10^3/uL (1.0-4.8) Monocytes # (Auto) 1.3x10^3/uL (0.0-1.1) Eosinophils # (Auto) 0.4x10^3/uL (0.0-0.7) Basophils # (Auto) 0.1x10^3/uL (0.0-0.2) Sodium Level 137mmol/L (136-145) Potassium Level 7.2mmol/L (3.5-5.1) Chloride Level 99mmol/L (98-107) Carbon Dioxide Level 23mmol/L (21-32) Anion Gap 15 (6-14) Blood Urea Nitrogen 71mg/dL (8-26) Creatinine 11.4mg/dL (0.7-1.3) Estimated GFR (Cockcroft-Gault) 4.6 BUN/Creatinine Ratio 6 (6-20) Glucose Level 99mg/dL (70-99) Calcium Level 7.8mg/dL (8.5-10.1) Total Bilirubin 0.4mg/dL (0.2-1.0) Aspartate Amino Transf (AST/SGOT) 16U/L (15-37) Alanine Aminotransferase (ALT/SGPT) 17U/L (16-63) Alkaline Phosphatase 62U/L (46-116) NU-Lkn-G-Type Natriuretic Peptide 71639dx/mL (0-124) Total Protein 7.4g/dL (6.4-8.2) Albumin 3.8g/dL (3.4-5.0) Albumin/Globulin Ratio 1.1 (1.0-1.7) Influenza Type A Antigen Negative (NEGATIVE) Influenza Type B Antigen Negative (NEGATIVE) Glucose (Fingerstick) 25mg/dL (70-99) 131mg/dL (70-99) Test 11/28/16 20:37 11/29/16 05:20 11/29/16 08:33 Glucose (Fingerstick) 100mg/dL (70-99) 77mg/dL (70-99) White Blood Count 7.1x10^3/uL (4.0-11.0) Red Blood Count 3.26x10^6/uL (4.30-5.70) Hemoglobin 10.2g/dL (13.0-17.5) Hematocrit 30.6% (39.0-53.0) Mean Corpuscular Volume 94fL (79-100) Mean Corpuscular Hemoglobin 31pg (25-35) Mean Corpuscular Hemoglobin Concent 34g/dL (31-37) Red Cell Distribution Width 12.9% (11.5-14.5) Platelet Count 150x10^3/uL (140-400) Neutrophils (%) (Auto) 67% (31-73) Lymphocytes (%) (Auto) 17% (24-48) Monocytes (%) (Auto) 12% (0-9) Eosinophils (%) (Auto) 3% (0-3) Basophils (%) (Auto) 1% (0-3) Neutrophils # (Auto) 4.8x10^3uL (1.8-7.7) Lymphocytes # (Auto) 1.2x10^3/uL (1.0-4.8) Monocytes # (Auto) 0.9x10^3/uL (0.0-1.1) Eosinophils # (Auto) 0.2x10^3/uL (0.0-0.7) Basophils # (Auto) 0.1x10^3/uL (0.0-0.2) Sodium Level 142mmol/L (136-145) Potassium Level 4.1mmol/L (3.5-5.1) Chloride Level 100mmol/L (98-107) Carbon Dioxide Level 27mmol/L (21-32) Anion Gap 15 (6-14) Blood Urea Nitrogen 45mg/dL (8-26) Creatinine 8.1mg/dL (0.7-1.3) Estimated GFR (Cockcroft-Gault) 6.8 Glucose Level 128mg/dL (70-99) Calcium Level 7.7mg/dL (8.5-10.1) Phosphorus Level 7.2mg/dL (2.6-4.7) Magnesium Level 2.3mg/dL (1.8-2.4) Assessment/Plan Assessment/Plan IMP HYPERKALEMIA ANEMIA ESRD HTN PLAN EMERGENT HD DONE LAST NIGHT USING A LOW K DIALYSATE HD AGAIN TODAY TO DW ENC LOW DIET COMPLIANCE ARANESP OK TO D/C AFTER DIALYSIS TODAY FROM [facility] WILL FOLLOW NEEDED JAYDE NGUYEN MD Nov 29, 2016 11:28
[2016-11-29] MEDS: AMLODIPINE BESYLATE 10 MG TABLET PO SCH (14:40)
[2016-11-29] MEDS: METOPROLOL TART IMMED RELEASE 50 MG TABLET PO SCH (14:40)
[2016-11-29 14:41] VITALS: BP 124/66
[2016-11-29] MEDS: HYDRALAZINE 50 MG TABLET PO SCH (14:41)
[2016-11-29] MEDS ORDERED: DARBEPOETIN ALFA 60 MCG/0.3 ML DISP.SYRIN. SQ SCH (21:00)
== END 2016-11-29 15:14 | disposition home or self-care (01) | DRG 291 ==
LOC: ER 16:06 → 2 SOUTH 18:20
PROVIDERS: ADMIT Internal Medicine; ATTEND Internal Medicine
PROC: 5A1D00Z (ICD-10-PCS; principal; 2016-11-28)
DX: I13.2 Hypertensive heart and chronic kidney disease with heart failure and with stage 5 chronic kidney disease, or end stage renal disease (principal); N18.6 End stage renal disease; I50.32 Chronic diastolic (congestive) heart failure; E87.5 Hyperkalemia; D63.1 Anemia in chronic kidney disease; F41.8 Other specified anxiety disorders; Z96.1 Presence of intraocular lens; I25.10 Atherosclerotic heart disease of native coronary artery without angina pectoris; K21.9 Gastro-esophageal reflux disease without esophagitis; N40.0 Benign prostatic hyperplasia without lower urinary tract symptoms; Z82.3 Family history of stroke; Z83.3 Family history of diabetes mellitus; Z90.49 Acquired absence of other specified parts of digestive tract; Z95.5 Presence of coronary angioplasty implant and graft; Z99.2 Dependence on renal dialysis; Z88.6 Allergy status to analgesic agent
CPT/HCPCS: 36415; 71010; 80048; 80053; 82947; 83735; 83880; 84100; 85027; 87804; 93005; 94250; 94640; 96361; 96374; 96375; J0610; J1200; J1815; J3010; J7040; J7042; 99291-25

== ENCOUNTER 2016-12-15 17:19 | Inpatient (IN) | payer MEDICARE ==
[2016-12-14] MEDS: AMLODIPINE BESYLATE 10 MG TABLET PO SCH (21:30)
[~2016-12-15] VITALS: Ht 170.2 cm; Wt 73.2 kg
[2016-12-15] MEDS: AMLODIPINE BESYLATE 10 MG TABLET PO SCH ×2 (09:00→21:00)
[2016-12-15 20:04] VITALS: BP 119/82
[2016-12-15] MEDS ORDERED: CALC200T3 PO (20:15)
[2016-12-15] MEDS ORDERED: ONDANSETRON PF 4 MG/2 ML VIAL. IV PRN (21:00)
[2016-12-15] MEDS ORDERED: hydrALAZINE 20 MG/ML VIAL. IVP PRN (21:00)
[2016-12-15] MEDS ORDERED: ACETAMINOPHEN 325 MG TABLET. PO PRN (21:00)
[2016-12-15] MEDS ORDERED: PARO20TA2 PO (21:27)
[2016-12-15] MEDS: LOSARTAN POTASSIUM 50 MG TABLET. PO SCH (21:30)
[2016-12-15] MEDS: HYDRALAZINE 50 MG TABLET PO SCH (21:30)
[2016-12-15] MEDS: MORPHINE SULFATE 4 MG/ML DISP.SYRIN. IV PRN ×2 (21:48→23:37)
[2016-12-15] MEDS: METOPROLOL TART IMMED RELEASE 50 MG TABLET PO SCH (21:49)
[2016-12-15] MEDS: TAMSULOSIN 0.4 MG CAP.ER.24H. PO SCH (21:49)
[2016-12-15] MEDS ORDERED: DIPHENHYDRAMINE HCL 25 MG CAPSULE PO ONE (23:15)
[2016-12-15 23:20] VITALS: BP 108/65
[2016-12-15] MEDS: ALPRAZOLAM 0.5 MG TABLET PO PRN (23:35)
[2016-12-16] MEDS: MORPHINE SULFATE 4 MG/ML DISP.SYRIN. IV PRN ×3 (02:47→09:17)
[2016-12-16 03:40] VITALS: BP 89/53
[2016-12-16 05:49] LABS: BASO % 1 % (0-3); EOS % 2 % (0-3); HEMATOCRIT 36.7 % (39.0-53.0); HEMOGLOBIN 12.2 g/dL (13.0-17.5); LYMPH % 17 % (24-48); MEAN CORPUSCULAR HEMOGLOBIN 31 pg (25-35); MEAN CORPUSCULAR HGB CONC 33 g/dL (31-37); MEAN CORPUSCULAR VOLUME 93 fL (79-100); MONO % 15 % (0-9); NEUT % 66 % (31-73); PLATELET COUNT 184 x10^3/uL (140-400); RED BLOOD COUNT 3.93 x10^6/uL (4.30-5.70); RED CELL DISTRIBUTION WIDTH 13.5 % (11.5-14.5); WHITE BLOOD COUNT 6.1 x10^3/uL (4.0-11.0)
[2016-12-16] MEDS: ALPRAZOLAM 0.5 MG TABLET PO PRN ×2 (05:59→11:51)
[2016-12-16 06:50] LABS: CALCIUM 8.3 mg/dL (8.5-10.1); CREATININE 8.4 mg/dL (0.7-1.3); GFR 6.5; POTASSIUM 5.4 mmol/L (3.5-5.1)
[2016-12-16 07:00] VITALS: BP 101/53
[2016-12-16] MEDS: AMLODIPINE BESYLATE 10 MG TABLET PO SCH ×2 (09:00→21:00)
[2016-12-16] MEDS ORDERED: PAROXETINE ER 12.5 MG TAB.ER.24H. PO SCH (09:00)
[2016-12-16] MEDS: ISOSORBIDE MONONITRATE ER 30 MG TAB.ER.24H PO SCH (09:00)
[2016-12-16] MEDS: METOPROLOL TART IMMED RELEASE 50 MG TABLET PO SCH ×2 (09:00→21:00)
[2016-12-16] MEDS: CLONIDINE HCL 0.3 MG TABLET PO SCH (09:00)
[2016-12-16] MEDS: HYDRALAZINE 50 MG TABLET PO SCH ×3 (09:00→21:00)
[2016-12-16] MEDS ORDERED: SODIUM POLYSTYRENE SULFONATE 15 GM/60 ML ORAL.SUSP. PO ONE (09:15)
[2016-12-16] MEDS: PAROXETINE 10 MG TABLET. PO SCH (09:40)
[2016-12-16] MEDS: ASPIRIN 81 MG TAB.CHEW PO SCH (09:40)
[2016-12-16] MEDS: CALCIUM CARBONATE 500 MG TAB.CHEW PO SCH ×3 (09:41→15:56)
[2016-12-16] MEDS: CALCIUM CARBONATE 500 MG TABLET PO SCH ×3 (09:41→15:56)
[2016-12-16] MEDS: PANTOPRAZOLE 40 MG TABLET. PO SCH (09:42)
[2016-12-16 11:00] VITALS: BP 92/54
--- NOTE | 2016-12-16 11:00 | PDOC2 ---
CONSULT Date of Consult Date of Consult DATE: 12/16/16 TIME: 10:54 Reason for Consult Reason for Consult: HYPERKALEMIA, ESRD Referring Physician Referring Physician: KEIRA Identification/Chief Complaint Chief Complaint NOT FEELING WELL, CHEST PAIN, ITCHING, ANXIETY Source Source: Chart review, Patient History of Present Illness Reason for Visit: THIS IS A 61 YR OLD ADMITTED WITH CHEST PAIN, HE ALSO COMPLAINS OF WHOLE BODY ITCHING AND FEELING ANXIOUS. HE HAS SIMILAR ADMITS IN THE PAST AND CARDIAC W/U HAS BEEN NEGATIVE. HE HAS SIGNIFICANT ISSUES WITH ANXIETY AND HAS BEEN ON XANAX. LABS SHOWED MILD HYPERKALEMIA, OTHERWISE C/W ESRD Past Medical History Cardiovascular: CAD, HTN, [place] Pulmonary: Other GI: Constipation, GERD, Other Heme/Onc: Anemia NOS Psych: Depression Renal/: Chronic renal failure, Other Endocrine: Hyperparathyroidism Past Surgical History Past Surgical History: Appendectomy, Cholecystectomy, Other Family History Family History: Cancer, Diabetes, Kidney Disease, Stroke Social History ALCOHOL: none Drugs: None Lives: with Family Domestic Violence: Neg Current Medications Current Medications Current Medications Ondansetron HCl (Zofran) 4 mg PRN Q6HRS PRN IV NAUSEA/VOMITING; Start 12/15/16 at 21:00 Acetaminophen (Tylenol) 325 mg PRN Q4HRS PRN PO MILD PAIN / TEMP Last administered on 12/15/16 21:49; Start 12/15/16 at 21:00 Morphine Sulfate 3 mg PRN Q2HR PRN IV PAIN Last administered on 12/16/16 09:17 ; Start 12/15/16 at 21:00 Hydralazine HCl (Apresoline) 10 mg PRN Q4HRS PRN IVP ELEVATED BP, SEE COMMENTS ; Start 12/15/16 at 21:00 Alprazolam (Xanax) 0.5 mg PRN Q6HRS PRN PO ANXIETY / AGITATION Last administered on 12/16/16 05:59; Start 12/15/16 at 21:00 Amlodipine Besylate (Norvasc) 10 mg BID PO ; Start 12/14/16 at 21:30 Aspirin (Children'S Aspirin) 324 mg DAILY PO Last administered on 12/16/16 09: 40; Start 12/16/16 at 09:00 Calcium Carbonate/ Glycine (Oscal) 2,000 mg TIDWMEALS PO Last administered on 09:41; Start 12/16/16 at 08:00 Calcium Carbonate/ Glycine (Tums) 750 mg TIDAC PO Last administered on 09:41; Start 12/16/16 at 07:30 Isosorbide Mononitrate (Imdur) 30 mg DAILY PO ; Start 12/16/16 at 09:00 Paroxetine HCl (Paxil Cr) 10 mg DAILY PO ; Start 12/16/16 at 09:00; Status UNV Tamsulosin HCl (Flomax) 0.4 mg QHS PO Last administered on 12/15/16 21:49; Start 12/15/16 at 21:30 Hydralazine HCl (Apresoline) 100 mg TID PO HTN; Start 12/15/16 at 21:30 Losartan Potassium (Cozaar) 100 mg HS PO HTN; Start 12/15/16 at 21:30 Metoprolol Tartrate (Lopressor) 100 mg BID PO Heart Last administered on 21:49; Start 12/15/16 at 21:30 Pantoprazole Sodium (Protonix) 40 mg DAILYAC PO Last administered on 12/16/16 09:42; Start 12/16/16 at 07:30 Clonidine HCl (Catapres) 0.3 mg DAILY PO ; Start 12/16/16 at 09:00 Paroxetine HCl (Paxil) 10 mg DAILY PO Last administered on 12/16/16 09:40; Start 12/16/16 at 09:00 Diphenhydramine HCl (Benadryl) 25 mg 1X ONCE PO Last administered on 23:36; Start 12/15/16 at 23:15; Stop 12/15/16 at 23:16; Status DC Sodium Polystyrene Sulfonate (Kayexalate) 30 gm 1X ONCE PO Last administered on 12/16/16 09:42; Start 12/16/16 at 09:15; Stop 12/16/16 at 09:16; Status DC Active Scripts Active Isosorbide Mononitrate Er (Isosorbide Mononitrate) 30 Mg Tab.er.24h 30 Mg PO DAILY Flomax (Tamsulosin Hcl) 0.4 Mg Cap.er.24h 0.4 Mg PO QHS Reported Paroxetine Hcl 20 Mg Tablet 10 Mg PO DAILY Tums (Calcium Carbonate) 200 Mg Tab.chew 800 Mg PO TIDAC Omeprazole Magnesium 20 Mg Capsule.dr 20 Mg PO DAILY Clonidine Hcl 0.3 Mg Tablet 1 Tab PO DAILY Calcium Carbonate 500 Mg Tablet 2,000 Mg PO TIDWMEALS Hydralazine Hcl 100 Mg Tablet 100 Mg PO TID LAST DOSE: 02/24/16 AFTERNOON NEXT DOSE: 02/24/16 BEDTIME Amlodipine Besylate 10 Mg Tablet 10 Mg PO BID LAST DOSE: 02/24/16 AM NEXT DOSE: 02/25/16 AM Xanax (Alprazolam) 0.5 Mg Tablet 0.5 Mg PO Q6HRS PRN LAST DOSE: 02/23/16 BEDTIME NEXT DOSE: 02/24/16 BEDTIME Losartan Potassium 100 Mg Tablet 100 Mg PO HS LAST DOSE: 02/23/16 BEDTIME NEXT DOSE: 02/24/16 BEDTIME Metoprolol Tartrate 100 Mg Tablet 100 Mg PO BID LAST DOSE: 02/24/16 AM NEXT DOSE: 02/24/16 BEDTIME Lillian Chewable (Aspirin) 81 Mg Tab.chew 324 Mg PO DAILY LAST DOSE: 02/24/16 AM NEXT DOSE: 02/25/16 AM Allergies Allergies: Coded Allergies: aspirin (Verified Adverse Reaction, Intermediate, GI UPSET, TAKES 81MG ASPIRIN AT HOME, 04/23/16) Pt states GI upset with higher doses of ASA, tolerates 81mg daily home med ASA. ROS General: YES: Fatigue, Malaise PSYCHOLOGICAL ROS: YES: Anxiety Eyes: Yes Decreased vision Respiratory: YES: Cough Genitourinary: YES Other (ANURIA) Musculoskeletal: Yes Muscular Weakness Neurological: Yes Weakness Skin: Yes Dry Skin Physical Exam General: Alert, Oriented X3, Cooperative, No acute distress HEENT: Atraumatic, PERRLA Lungs: Clear to auscultation Heart: Regular rate, Normal S1, Normal S2 Abdomen: Normal bowel sounds, Soft, No tenderness Extremities: No clubbing, No cyanosis Skin: No rashes, No breakdown Neuro: Normal speech, Cranial nerves 3-12 NL Psych/Mental Status: Mental status NL, Other (ANXIOUS AFFECT) Vitals VITALS Vital Signs Date Time Temp Pulse Resp B/P Pulse Ox O2 Delivery O2 Flow Rate FiO2 12/16/16 09:47 18 95 Room Air 12/16/16 09:00 61 101/53 1/29/17 07:00 97.8 97.8 Labs Labs Laboratory Tests Test 12/15/16 21:50 12/15/16 23:25 12/16/16 05:00 12/16/16 05:15 Troponin I Quantitative 0.671ng/mL (0.000-0.055) 0.579ng/mL (0.000-0.055) Glucose (Fingerstick) 105mg/dL (70-99) Sodium Level 139mmol/L (136-145) Potassium Level 5.4mmol/L (3.5-5.1) Chloride Level 98mmol/L (98-107) Carbon Dioxide Level 29mmol/L (21-32) Anion Gap 12 (6-14) Blood Urea Nitrogen 41mg/dL (8-26) Creatinine 8.4mg/dL (0.7-1.3) Estimated GFR (Cockcroft-Gault) 6.5 Glucose Level 87mg/dL (70-99) Calcium Level 8.3mg/dL (8.5-10.1) White Blood Count 6.1x10^3/uL (4.0-11.0) Red Blood Count 3.93x10^6/uL (4.30-5.70) Hemoglobin 12.2g/dL (13.0-17.5) Hematocrit 36.7% (39.0-53.0) Mean Corpuscular Volume 93fL (79-100) Mean Corpuscular Hemoglobin 31pg (25-35) Mean Corpuscular Hemoglobin Concent 33g/dL (31-37) Red Cell Distribution Width 13.5% (11.5-14.5) Platelet Count 184x10^3/uL (140-400) Neutrophils (%) (Auto) 66% (31-73) Lymphocytes (%) (Auto) 17% (24-48) Monocytes (%) (Auto) 15% (0-9) Eosinophils (%) (Auto) 2% (0-3) Basophils (%) (Auto) 1% (0-3) Neutrophils # (Auto) 4.0x10^3uL (1.8-7.7) Lymphocytes # (Auto) 1.0x10^3/uL (1.0-4.8) Monocytes # (Auto) 0.9x10^3/uL (0.0-1.1) Eosinophils # (Auto) 0.1x10^3/uL (0.0-0.7) Basophils # (Auto) 0.0x10^3/uL (0.0-0.2) Laboratory Tests Test 12/15/16 21:50 12/15/16 23:25 12/16/16 05:00 12/16/16 05:15 Troponin I Quantitative 0.671ng/mL (0.000-0.055) 0.579ng/mL (0.000-0.055) Glucose (Fingerstick) 105mg/dL (70-99) Sodium Level 139mmol/L (136-145) Potassium Level 5.4mmol/L (3.5-5.1) Chloride Level 98mmol/L (98-107) Carbon Dioxide Level 29mmol/L (21-32) Anion Gap 12 (6-14) Blood Urea Nitrogen 41mg/dL (8-26) Creatinine 8.4mg/dL (0.7-1.3) Estimated GFR (Cockcroft-Gault) 6.5 Glucose Level 87mg/dL (70-99) Calcium Level 8.3mg/dL (8.5-10.1) White Blood Count 6.1x10^3/uL (4.0-11.0) Red Blood Count 3.93x10^6/uL (4.30-5.70) Hemoglobin 12.2g/dL (13.0-17.5) Hematocrit 36.7% (39.0-53.0) Mean Corpuscular Volume 93fL (79-100) Mean Corpuscular Hemoglobin 31pg (25-35) Mean Corpuscular Hemoglobin Concent 33g/dL (31-37) Red Cell Distribution Width 13.5% (11.5-14.5) Platelet Count 184x10^3/uL (140-400) Neutrophils (%) (Auto) 66% (31-73) Lymphocytes (%) (Auto) 17% (24-48) Monocytes (%) (Auto) 15% (0-9) Eosinophils (%) (Auto) 2% (0-3) Basophils (%) (Auto) 1% (0-3) Neutrophils # (Auto) 4.0x10^3uL (1.8-7.7) Lymphocytes # (Auto) 1.0x10^3/uL (1.0-4.8) Monocytes # (Auto) 0.9x10^3/uL (0.0-1.1) Eosinophils # (Auto) 0.1x10^3/uL (0.0-0.7) Basophils # (Auto) 0.0x10^3/uL (0.0-0.2) Assessment/Plan Assessment/Plan IMP HYPERKALEMIA ANEMIA-CONTROLLED CHEST PAIN-MOST LIKELY ANXIETY SEVERE ANXIETY ESRD HTN PRURITUS-MOST C/W ESRD RELATED HYPERPHOSPHATEMIA PLAN HD SaturdayLATE TODAY CARDIOLOGY EVAL LAINEY ENC LOW PO4 DIET AND COMPLIANCE WILL FOLLOW JAYDE NGUYEN MD Dec 16, 2016 11:00
[2016-12-16 15:00] VITALS: BP 110/41
--- NOTE | 2016-12-16 15:41 | PDOC1 ---
History and Physical Date of Admission Date of Admission DATE: 12/16/16 TIME: 15:38 Identification/Chief Complaint Chief Complaint anxiety' Source Source: Chart review, Patient History of Present Illness History of Present Illness 61 Male known to us, bec of CP, has had full work up in recent past. Very anxious, anxious again. Asking for benadryl and IV pain meds, LAbs ok except as what is seen in CKD. ALso chornic diarrhea known to GI hx of collagenous colitis, was on an unrecalled medication pt cant tell me but everytime he gets put back on it his diarrhea resolves. I really doubt his compliance now, HEAVY conversations in the past that seems to be going nowher with him with his frequent admits, ALl labs, stable as in past,except for ESRD numbers VS good Past Medical History Cardiovascular: CAD, HTN, [place] Pulmonary: Other GI: Constipation, GERD, Other Heme/Onc: Anemia NOS Psych: Depression Renal/: Chronic renal failure, Other Endocrine: Hyperparathyroidism Past Surgical History Past Surgical History: Appendectomy, Cholecystectomy, Other Family History Family History: Cancer, Diabetes, Kidney Disease, Stroke Social History Smoke: No ALCOHOL: none Drugs: None Current Medications Current Medications Current Medications Ondansetron HCl (Zofran) 4 mg PRN Q6HRS PRN IV NAUSEA/VOMITING; Start 12/15/16 at 21:00 Acetaminophen (Tylenol) 325 mg PRN Q4HRS PRN PO MILD PAIN / TEMP Last administered on 12/15/16 21:49; Start 12/15/16 at 21:00 Morphine Sulfate 3 mg PRN Q2HR PRN IV PAIN Last administered on 12/16/16 09:17 ; Start 12/15/16 at 21:00 Hydralazine HCl (Apresoline) 10 mg PRN Q4HRS PRN IVP ELEVATED BP, SEE COMMENTS ; Start 12/15/16 at 21:00 Alprazolam (Xanax) 0.5 mg PRN Q6HRS PRN PO ANXIETY / AGITATION Last administered on 12/16/16 11:51; Start 12/15/16 at 21:00 Amlodipine Besylate (Norvasc) 10 mg BID PO ; Start 12/14/16 at 21:30 Aspirin (Children'S Aspirin) 324 mg DAILY PO Last administered on 12/16/16 09: 40; Start 12/16/16 at 09:00 Calcium Carbonate/ Glycine (Oscal) 2,000 mg TIDWMEALS PO Last administered on 11:51; Start 12/16/16 at 08:00 Calcium Carbonate/ Glycine (Tums) 750 mg TIDAC PO Last administered on 11:51; Start 12/16/16 at 07:30 Isosorbide Mononitrate (Imdur) 30 mg DAILY PO ; Start 12/16/16 at 09:00 Paroxetine HCl (Paxil Cr) 10 mg DAILY PO ; Start 12/16/16 at 09:00; Status UNV Tamsulosin HCl (Flomax) 0.4 mg QHS PO Last administered on 12/15/16 21:49; Start 12/15/16 at 21:30 Hydralazine HCl (Apresoline) 100 mg TID PO HTN; Start 12/15/16 at 21:30 Losartan Potassium (Cozaar) 100 mg HS PO HTN; Start 12/15/16 at 21:30 Metoprolol Tartrate (Lopressor) 100 mg BID PO Heart Last administered on 21:49; Start 12/15/16 at 21:30 Pantoprazole Sodium (Protonix) 40 mg DAILYAC PO Last administered on 12/16/16 09:42; Start 12/16/16 at 07:30 Clonidine HCl (Catapres) 0.3 mg DAILY PO ; Start 12/16/16 at 09:00 Paroxetine HCl (Paxil) 10 mg DAILY PO Last administered on 12/16/16 09:40; Start 12/16/16 at 09:00 Diphenhydramine HCl (Benadryl) 25 mg 1X ONCE PO Last administered on 23:36; Start 12/15/16 at 23:15; Stop 12/15/16 at 23:16; Status DC Sodium Polystyrene Sulfonate (Kayexalate) 30 gm 1X ONCE PO Last administered on 12/16/16 09:42; Start 12/16/16 at 09:15; Stop 12/16/16 at 09:16; Status DC Active Scripts Active Isosorbide Mononitrate Er (Isosorbide Mononitrate) 30 Mg Tab.er.24h 30 Mg PO DAILY Flomax (Tamsulosin Hcl) 0.4 Mg Cap.er.24h 0.4 Mg PO QHS Reported Paroxetine Hcl 20 Mg Tablet 10 Mg PO DAILY Tums (Calcium Carbonate) 200 Mg Tab.chew 800 Mg PO TIDAC Omeprazole Magnesium 20 Mg Capsule.dr 20 Mg PO DAILY Clonidine Hcl 0.3 Mg Tablet 1 Tab PO DAILY Calcium Carbonate 500 Mg Tablet 2,000 Mg PO TIDWMEALS Hydralazine Hcl 100 Mg Tablet 100 Mg PO TID LAST DOSE: 02/24/16 AFTERNOON NEXT DOSE: 02/24/16 BEDTIME Amlodipine Besylate 10 Mg Tablet 10 Mg PO BID LAST DOSE: 02/24/16 AM NEXT DOSE: 02/25/16 AM Xanax (Alprazolam) 0.5 Mg Tablet 0.5 Mg PO Q6HRS PRN LAST DOSE: 02/23/16 BEDTIME NEXT DOSE: 02/24/16 BEDTIME Losartan Potassium 100 Mg Tablet 100 Mg PO HS LAST DOSE: 02/23/16 BEDTIME NEXT DOSE: 02/24/16 BEDTIME Metoprolol Tartrate 100 Mg Tablet 100 Mg PO BID LAST DOSE: 02/24/16 AM NEXT DOSE: 02/24/16 BEDTIME Lillian Chewable (Aspirin) 81 Mg Tab.chew 324 Mg PO DAILY LAST DOSE: 02/24/16 AM NEXT DOSE: 02/25/16 AM Allergies Allergies: Coded Allergies: aspirin (Verified Adverse Reaction, Intermediate, GI UPSET, TAKES 81MG ASPIRIN AT HOME, 04/23/16) Pt states GI upset with higher doses of ASA, tolerates 81mg daily home med ASA. ROS Review of System itchy, anxious, Physical Exam General: Alert, Oriented X3, Cooperative, No acute distress, Other (anxious) HEENT: Atraumatic, PERRLA Lungs: Clear to auscultation, Normal air movement Heart: S1S2, RRR, no thrills, no rubs, no gallops Cardiovascular: S1, S2 Breasts: Normal Abdomen: Normal bowel sounds, Soft, No tenderness, No hepatosplenomegaly, No masses Male Genitals Exam: normal genitalia, normal prostate Rectal Exam: not examined, mass PELVIC: Nml ext genitalia Extremities: No clubbing, No cyanosis, No edema, Normal pulses, No tenderness/ swelling Skin: No rashes, No breakdown, No significant lesion Psych/Mental Status: Other (anxious) Vitals Vitals Vital Signs Date Time Temp Pulse Resp B/P Pulse Ox O2 Delivery O2 Flow Rate FiO2 12/16/16 13:41 67 92/54 12/16/16 11:00 97.3 20 96 Room Air 97.3 Labs Labs Laboratory Tests Test 12/15/16 21:50 12/15/16 23:25 12/16/16 05:00 12/16/16 05:15 Troponin I Quantitative 0.671ng/mL (0.000-0.055) 0.579ng/mL (0.000-0.055) Glucose (Fingerstick) 105mg/dL (70-99) Sodium Level 139mmol/L (136-145) Potassium Level 5.4mmol/L (3.5-5.1) Chloride Level 98mmol/L (98-107) Carbon Dioxide Level 29mmol/L (21-32) Anion Gap 12 (6-14) Blood Urea Nitrogen 41mg/dL (8-26) Creatinine 8.4mg/dL (0.7-1.3) Estimated GFR (Cockcroft-Gault) 6.5 Glucose Level 87mg/dL (70-99) Calcium Level 8.3mg/dL (8.5-10.1) White Blood Count 6.1x10^3/uL (4.0-11.0) Red Blood Count 3.93x10^6/uL (4.30-5.70) Hemoglobin 12.2g/dL (13.0-17.5) Hematocrit 36.7% (39.0-53.0) Mean Corpuscular Volume 93fL (79-100) Mean Corpuscular Hemoglobin 31pg (25-35) Mean Corpuscular Hemoglobin Concent 33g/dL (31-37) Red Cell Distribution Width 13.5% (11.5-14.5) Platelet Count 184x10^3/uL (140-400) Neutrophils (%) (Auto) 66% (31-73) Lymphocytes (%) (Auto) 17% (24-48) Monocytes (%) (Auto) 15% (0-9) Eosinophils (%) (Auto) 2% (0-3) Basophils (%) (Auto) 1% (0-3) Neutrophils # (Auto) 4.0x10^3uL (1.8-7.7) Lymphocytes # (Auto) 1.0x10^3/uL (1.0-4.8) Monocytes # (Auto) 0.9x10^3/uL (0.0-1.1) Eosinophils # (Auto) 0.1x10^3/uL (0.0-0.7) Basophils # (Auto) 0.0x10^3/uL (0.0-0.2) Laboratory Tests Test 12/15/16 21:50 12/15/16 23:25 12/16/16 05:00 12/16/16 05:15 Troponin I Quantitative 0.671ng/mL (0.000-0.055) 0.579ng/mL (0.000-0.055) Glucose (Fingerstick) 105mg/dL (70-99) Sodium Level 139mmol/L (136-145) Potassium Level 5.4mmol/L (3.5-5.1) Chloride Level 98mmol/L (98-107) Carbon Dioxide Level 29mmol/L (21-32) Anion Gap 12 (6-14) Blood Urea Nitrogen 41mg/dL (8-26) Creatinine 8.4mg/dL (0.7-1.3) Estimated GFR (Cockcroft-Gault) 6.5 Glucose Level 87mg/dL (70-99) Calcium Level 8.3mg/dL (8.5-10.1) White Blood Count 6.1x10^3/uL (4.0-11.0) Red Blood Count 3.93x10^6/uL (4.30-5.70) Hemoglobin 12.2g/dL (13.0-17.5) Hematocrit 36.7% (39.0-53.0) Mean Corpuscular Volume 93fL (79-100) Mean Corpuscular Hemoglobin 31pg (25-35) Mean Corpuscular Hemoglobin Concent 33g/dL (31-37) Red Cell Distribution Width 13.5% (11.5-14.5) Platelet Count 184x10^3/uL (140-400) Neutrophils (%) (Auto) 66% (31-73) Lymphocytes (%) (Auto) 17% (24-48) Monocytes (%) (Auto) 15% (0-9) Eosinophils (%) (Auto) 2% (0-3) Basophils (%) (Auto) 1% (0-3) Neutrophils # (Auto) 4.0x10^3uL (1.8-7.7) Lymphocytes # (Auto) 1.0x10^3/uL (1.0-4.8) Monocytes # (Auto) 0.9x10^3/uL (0.0-1.1) Eosinophils # (Auto) 0.1x10^3/uL (0.0-0.7) Basophils # (Auto) 0.0x10^3/uL (0.0-0.2) VTE Prophylaxis Ordered VTE Prophylaxis Devices: Yes VTE Pharmacological Prophylaxi: Yes Assessment/Plan Assessment/Plan 1. 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 COllagenous colitis 3. Severe anxiety 4. Dietary indiscretion 5, AOCD 6. NOn cardiac cp 7. Pruritus sec to hyperphosphatemia PLAN: Ok for benadryl HD per renal Dw [facility] meds ARSALAN ESCAMILLA MD Dec 16, 2016 15:41
[2016-12-16] MEDS: DIPHENHYDRAMINE 50 MG/ML VIAL IVP PRN ×2 (15:54→21:02)
[2016-12-16 19:40] VITALS: BP 84/59
[2016-12-16] MEDS: TAMSULOSIN 0.4 MG CAP.ER.24H. PO SCH (20:56)
[2016-12-16] MEDS: LOSARTAN POTASSIUM 50 MG TABLET. PO SCH (21:00)
[2016-12-16 23:35] VITALS: BP 92/62
[2016-12-17 03:13] VITALS: BP 120/61
[2016-12-17] MEDS: ALPRAZOLAM 0.5 MG TABLET PO PRN ×3 (04:30→16:57)
[2016-12-17 05:55] LABS: CREATININE 11.6 mg/dL (0.7-1.3); GFR 4.5; POTASSIUM 4.9 mmol/L (3.5-5.1)
[2016-12-17 07:00] VITALS: BP 117/62
[2016-12-17] MEDS: DIPHENHYDRAMINE 50 MG/ML VIAL IVP PRN ×3 (08:53→23:16)
[2016-12-17] MEDS: PANTOPRAZOLE 40 MG TABLET. PO SCH (08:57)
[2016-12-17] MEDS: PAROXETINE 10 MG TABLET. PO SCH (08:57)
[2016-12-17] MEDS: CALCIUM CARBONATE 500 MG TABLET PO SCH ×3 (08:57→16:57)
[2016-12-17] MEDS: ASPIRIN 81 MG TAB.CHEW PO SCH (08:58)
[2016-12-17] MEDS: CALCIUM CARBONATE 500 MG TAB.CHEW PO SCH ×3 (08:58→16:57)
[2016-12-17] MEDS: METOPROLOL TART IMMED RELEASE 50 MG TABLET PO SCH ×2 (08:59→21:03)
[2016-12-17] MEDS: CLONIDINE HCL 0.3 MG TABLET PO SCH (09:00)
[2016-12-17] MEDS: HYDRALAZINE 50 MG TABLET PO SCH (09:00)
--- NOTE | 2016-12-17 10:46 | PDOC2 ---
CONSULT Date of Consult Date of Consult DATE: 12/17/16 TIME: 10:32 Reason for Consult Reason for Consult: Chest pain Referring Physician Referring Physician: Dr. Escobar Identification/Chief Complaint Chief Complaint Chest pain History of Present Illness Reason for Visit: Patient is a pleasant 61 year old male with history of CAD, HTN, [place] and CKD who presented with chest pain according to chart review. In talking with the patient today, he denied having chest pain or dyspnea on presentation. He says he was having severe muscle cramps in his neck, lower ribs, back and legs after dialysis yesterday and that he was "too dry". This diffuse pain came on while he was laying in bed, and he also had dizziness, a headache and lost his balance when he tried to walk due to the leg cramps. He denied chest pain, dyspnea, blurry vision, and leg swelling. While in the ED, his labs showed a mild hyperkalemia and elevated Cr and BUN consistent with his CKD. He had a troponin elevation of 0.579. He was given benadryl for his severe anxiety at the time. Today, he denies chest pain or dyspnea. Admits to pruritis all over his body. Still having some cramping, especially in his legs. Past Medical History Cardiovascular: CAD, HTN, [place] Pulmonary: Other GI: Constipation, GERD, Other Heme/Onc: Anemia NOS Psych: Depression Renal/: Chronic renal failure, Other Endocrine: Hyperparathyroidism Past Surgical History Past Surgical History: Appendectomy, Cholecystectomy, Other Family History Family History: Cancer, Diabetes, Kidney Disease, Stroke Social History No ALCOHOL: none Drugs: None Lives: with Family Domestic Violence: Neg Current Medications Current Medications Current Medications Ondansetron HCl (Zofran) 4 mg PRN Q6HRS PRN IV NAUSEA/VOMITING; Start 12/15/16 at 21:00 Acetaminophen (Tylenol) 325 mg PRN Q4HRS PRN PO MILD PAIN / TEMP Last administered on 12/15/16 21:49; Start 12/15/16 at 21:00 Morphine Sulfate 3 mg PRN Q2HR PRN IV PAIN Last administered on 12/16/16 09:17 ; Start 12/15/16 at 21:00 Hydralazine HCl (Apresoline) 10 mg PRN Q4HRS PRN IVP ELEVATED BP, SEE COMMENTS ; Start 12/15/16 at 21:00 Alprazolam (Xanax) 0.5 mg PRN Q6HRS PRN PO ANXIETY / AGITATION Last administered on 12/17/16 04:30; Start 12/15/16 at 21:00 Amlodipine Besylate (Norvasc) 10 mg BID PO ; Start 12/14/16 at 21:30 Aspirin (Children'S Aspirin) 324 mg DAILY PO Last administered on 12/17/16 08: 58; Start 12/16/16 at 09:00 Calcium Carbonate/ Glycine (Oscal) 2,000 mg TIDWMEALS PO Last administered on 08:57; Start 12/16/16 at 08:00 Calcium Carbonate/ Glycine (Tums) 750 mg TIDAC PO Last administered on 08:58; Start 12/16/16 at 07:30 Isosorbide Mononitrate (Imdur) 30 mg DAILY PO ; Start 12/16/16 at 09:00 Paroxetine HCl (Paxil Cr) 10 mg DAILY PO ; Start 12/16/16 at 09:00; Status UNV Tamsulosin HCl (Flomax) 0.4 mg QHS PO Last administered on 12/16/16 20:56; Start 12/15/16 at 21:30 Hydralazine HCl (Apresoline) 100 mg TID PO HTN; Start 12/15/16 at 21:30 Losartan Potassium (Cozaar) 100 mg HS PO HTN; Start 12/15/16 at 21:30 Metoprolol Tartrate (Lopressor) 100 mg BID PO Heart Last administered on 08:59; Start 12/15/16 at 21:30 Pantoprazole Sodium (Protonix) 40 mg DAILYAC PO Last administered on 12/17/16 08:57; Start 12/16/16 at 07:30 Clonidine HCl (Catapres) 0.3 mg DAILY PO ; Start 12/16/16 at 09:00 Paroxetine HCl (Paxil) 10 mg DAILY PO Last administered on 12/17/16 08:57; Start 12/16/16 at 09:00 Diphenhydramine HCl (Benadryl) 25 mg 1X ONCE PO Last administered on 23:36; Start 12/15/16 at 23:15; Stop 12/15/16 at 23:16; Status DC Sodium Polystyrene Sulfonate (Kayexalate) 30 gm 1X ONCE PO Last administered on 12/16/16 09:42; Start 12/16/16 at 09:15; Stop 12/16/16 at 09:16; Status DC Diphenhydramine HCl (Benadryl) 25 mg PRN Q6HRS PRN IVP ITCHING Last administered on 12/17/16 08:53; Start 12/16/16 at 15:45 Active Scripts Active Isosorbide Mononitrate Er (Isosorbide Mononitrate) 30 Mg Tab.er.24h 30 Mg PO DAILY Flomax (Tamsulosin Hcl) 0.4 Mg Cap.er.24h 0.4 Mg PO QHS Reported Paroxetine Hcl 20 Mg Tablet 10 Mg PO DAILY Tums (Calcium Carbonate) 200 Mg Tab.chew 800 Mg PO TIDAC Omeprazole Magnesium 20 Mg Capsule.dr 20 Mg PO DAILY Clonidine Hcl 0.3 Mg Tablet 1 Tab PO DAILY Calcium Carbonate 500 Mg Tablet 2,000 Mg PO TIDWMEALS Hydralazine Hcl 100 Mg Tablet 100 Mg PO TID LAST DOSE: 02/24/16 AFTERNOON NEXT DOSE: 02/24/16 BEDTIME Amlodipine Besylate 10 Mg Tablet 10 Mg PO BID LAST DOSE: 02/24/16 AM NEXT DOSE: 02/25/16 AM Xanax (Alprazolam) 0.5 Mg Tablet 0.5 Mg PO Q6HRS PRN LAST DOSE: 02/23/16 BEDTIME NEXT DOSE: 02/24/16 BEDTIME Losartan Potassium 100 Mg Tablet 100 Mg PO HS LAST DOSE: 02/23/16 BEDTIME NEXT DOSE: 02/24/16 BEDTIME Metoprolol Tartrate 100 Mg Tablet 100 Mg PO BID LAST DOSE: 02/24/16 AM NEXT DOSE: 02/24/16 BEDTIME Lillian Chewable (Aspirin) 81 Mg Tab.chew 324 Mg PO DAILY LAST DOSE: 02/24/16 AM NEXT DOSE: 02/25/16 AM Allergies Allergies: Coded Allergies: aspirin (Verified Adverse Reaction, Intermediate, GI UPSET, TAKES 81MG ASPIRIN AT HOME, 04/23/16) Pt states GI upset with higher doses of ASA, tolerates 81mg daily home med ASA. Physical Exam Physical Exam General: AAOx3, no acute distress Heart: regular rate, normal S1, normal S2 Lungs: clear to auscultation Abdomen: soft, nontender, bowel sounds heard Extremities: pulses +2/4 all extremities, no pretibial edema, HD cath in L arm Vitals VITALS Vital Signs Date Time Temp Pulse Resp B/P Pulse Ox O2 Delivery O2 Flow Rate FiO2 12/17/16 08:59 82 117/62 12/17/16 08:00 Room Air 12/17/16 07:00 97.5 20 92 97.5 Labs Labs Laboratory Tests Test 12/15/16 21:50 12/15/16 23:25 12/16/16 05:00 12/16/16 05:15 Troponin I Quantitative 0.671ng/mL (0.000-0.055) 0.579ng/mL (0.000-0.055) Glucose (Fingerstick) 105mg/dL (70-99) Sodium Level 139mmol/L (136-145) Potassium Level 5.4mmol/L (3.5-5.1) Chloride Level 98mmol/L (98-107) Carbon Dioxide Level 29mmol/L (21-32) Anion Gap 12 (6-14) Blood Urea Nitrogen 41mg/dL (8-26) Creatinine 8.4mg/dL (0.7-1.3) Estimated GFR (Cockcroft-Gault) 6.5 Glucose Level 87mg/dL (70-99) Calcium Level 8.3mg/dL (8.5-10.1) White Blood Count 6.1x10^3/uL (4.0-11.0) Red Blood Count 3.93x10^6/uL (4.30-5.70) Hemoglobin 12.2g/dL (13.0-17.5) Hematocrit 36.7% (39.0-53.0) Mean Corpuscular Volume 93fL (79-100) Mean Corpuscular Hemoglobin 31pg (25-35) Mean Corpuscular Hemoglobin Concent 33g/dL (31-37) Red Cell Distribution Width 13.5% (11.5-14.5) Platelet Count 184x10^3/uL (140-400) Neutrophils (%) (Auto) 66% (31-73) Lymphocytes (%) (Auto) 17% (24-48) Monocytes (%) (Auto) 15% (0-9) Eosinophils (%) (Auto) 2% (0-3) Basophils (%) (Auto) 1% (0-3) Neutrophils # (Auto) 4.0x10^3uL (1.8-7.7) Lymphocytes # (Auto) 1.0x10^3/uL (1.0-4.8) Monocytes # (Auto) 0.9x10^3/uL (0.0-1.1) Eosinophils # (Auto) 0.1x10^3/uL (0.0-0.7) Basophils # (Auto) 0.0x10^3/uL (0.0-0.2) Test 12/16/16 09:16 12/17/16 05:19 12/17/16 08:31 Glucose (Fingerstick) 92mg/dL (70-99) 100mg/dL (70-99) Sodium Level 143mmol/L (136-145) Potassium Level 4.9mmol/L (3.5-5.1) Chloride Level 99mmol/L (98-107) Carbon Dioxide Level 32mmol/L (21-32) Anion Gap 12 (6-14) Blood Urea Nitrogen 58mg/dL (8-26) Creatinine 11.6mg/dL (0.7-1.3) Estimated GFR (Cockcroft-Gault) 4.5 Glucose Level 110mg/dL (70-99) Calcium Level 8.0mg/dL (8.5-10.1) Laboratory Tests Test 12/17/16 05:19 12/17/16 08:31 Sodium Level 143mmol/L (136-145) Potassium Level 4.9mmol/L (3.5-5.1) Chloride Level 99mmol/L (98-107) Carbon Dioxide Level 32mmol/L (21-32) Anion Gap 12 (6-14) Blood Urea Nitrogen 58mg/dL (8-26) Creatinine 11.6mg/dL (0.7-1.3) Estimated GFR (Cockcroft-Gault) 4.5 Glucose Level 110mg/dL (70-99) Calcium Level 8.0mg/dL (8.5-10.1) Glucose (Fingerstick) 100mg/dL (70-99) Assessment/Plan Assessment/Plan Patient not currently having chest pain. Chest pain was likely noncardiac in nature since it resolved when the patient's anxiety subsided. Leg pains may be claudication. He has known PVD and has had previous stenting in view of this I would like to get an aortogram with runoff and then depending on the results then go from there but if he has restenosis of the stents he may be better off with surgery. Thank you for allowing me to participate in the care of this patient. ESTEFANÍA MANZO MD Dec 17, 2016 10:46
[2016-12-17] MEDS: AMLODIPINE BESYLATE 10 MG TABLET PO SCH ×2 (11:02→21:03)
[2016-12-17] MEDS: ISOSORBIDE MONONITRATE ER 30 MG TAB.ER.24H PO SCH (11:03)
--- NOTE | 2016-12-17 11:50 | PDOC ---
PROGRESS NOTES Chief Complaint Chief Complaint 1. 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 COllagenous colitis 3. Severe anxiety 4. Dietary indiscretion 5, AOCD 6. NOn cardiac cp 7. Pruritus sec to hyperphosphatemia 8. BIlateral leg pains, claudication? 9./ Generalized cramps History of Present Illness History of Present Illness PAin and anxiety better Itching better after the benadryl\ BUt dry mouth now bec of benadryl - has ice chips COmplains of claudication. Wants cards to check for arterial circulation Kidney transplant being on the works - follows with [facility] Still crampy all over - K ok Vitals Vitals Vital Signs Date Time Temp Pulse Resp B/P Pulse Ox O2 Delivery O2 Flow Rate FiO2 12/17/16 11:03 75 125/58 12/17/16 08:00 Room Air 12/17/16 07:00 97.5 20 92 97.5 Physical Exam General: Alert, Oriented X3, Cooperative, No acute distress, Other (anxious) Heart: Regular rate, Normal S1, Normal S2 Lungs: Clear Abdomen: Normal bowel sounds, Soft, No tenderness, No hepatosplenomegaly, No masses Extremities: No clubbing, No cyanosis, No edema, Normal pulses, No tenderness/ swelling Skin: No rashes, No breakdown, No significant lesion Labs LABS Laboratory Tests Test 12/17/16 05:19 12/17/16 08:31 12/17/16 11:04 Sodium Level 143mmol/L (136-145) Potassium Level 4.9mmol/L (3.5-5.1) Chloride Level 99mmol/L (98-107) Carbon Dioxide Level 32mmol/L (21-32) Anion Gap 12 (6-14) Blood Urea Nitrogen 58mg/dL (8-26) Creatinine 11.6mg/dL (0.7-1.3) Estimated GFR (Cockcroft-Gault) 4.5 Glucose Level 110mg/dL (70-99) Calcium Level 8.0mg/dL (8.5-10.1) Glucose (Fingerstick) 100mg/dL (70-99) 116mg/dL (70-99) Review of Systems Review of Systems anxiety, itch, cramps, shakes etc, leg pains Assessment and Plan Assessmemt and Plan Trial of zanaflex Will defer to cards work up for arterial insuff if deemed appropriate by the service Due HD eddie CPM Problems: Comment Review of Relevant I have reviewed the following items dionte (where applicable) has been applied. Labs Laboratory Tests Test 12/15/16 21:50 12/15/16 23:25 12/16/16 05:00 12/16/16 05:15 Troponin I Quantitative 0.671ng/mL (0.000-0.055) 0.579ng/mL (0.000-0.055) Glucose (Fingerstick) 105mg/dL (70-99) Sodium Level 139mmol/L (136-145) Potassium Level 5.4mmol/L (3.5-5.1) Chloride Level 98mmol/L (98-107) Carbon Dioxide Level 29mmol/L (21-32) Anion Gap 12 (6-14) Blood Urea Nitrogen 41mg/dL (8-26) Creatinine 8.4mg/dL (0.7-1.3) Estimated GFR (Cockcroft-Gault) 6.5 Glucose Level 87mg/dL (70-99) Calcium Level 8.3mg/dL (8.5-10.1) White Blood Count 6.1x10^3/uL (4.0-11.0) Red Blood Count 3.93x10^6/uL (4.30-5.70) Hemoglobin 12.2g/dL (13.0-17.5) Hematocrit 36.7% (39.0-53.0) Mean Corpuscular Volume 93fL (79-100) Mean Corpuscular Hemoglobin 31pg (25-35) Mean Corpuscular Hemoglobin Concent 33g/dL (31-37) Red Cell Distribution Width 13.5% (11.5-14.5) Platelet Count 184x10^3/uL (140-400) Neutrophils (%) (Auto) 66% (31-73) Lymphocytes (%) (Auto) 17% (24-48) Monocytes (%) (Auto) 15% (0-9) Eosinophils (%) (Auto) 2% (0-3) Basophils (%) (Auto) 1% (0-3) Neutrophils # (Auto) 4.0x10^3uL (1.8-7.7) Lymphocytes # (Auto) 1.0x10^3/uL (1.0-4.8) Monocytes # (Auto) 0.9x10^3/uL (0.0-1.1) Eosinophils # (Auto) 0.1x10^3/uL (0.0-0.7) Basophils # (Auto) 0.0x10^3/uL (0.0-0.2) Test 12/16/16 09:16 12/17/16 05:19 12/17/16 08:31 12/17/16 11:04 Glucose (Fingerstick) 92mg/dL (70-99) 100mg/dL (70-99) 116mg/dL (70-99) Sodium Level 143mmol/L (136-145) Potassium Level 4.9mmol/L (3.5-5.1) Chloride Level 99mmol/L (98-107) Carbon Dioxide Level 32mmol/L (21-32) Anion Gap 12 (6-14) Blood Urea Nitrogen 58mg/dL (8-26) Creatinine 11.6mg/dL (0.7-1.3) Estimated GFR (Cockcroft-Gault) 4.5 Glucose Level 110mg/dL (70-99) Calcium Level 8.0mg/dL (8.5-10.1) Laboratory Tests Test 12/17/16 05:19 12/17/16 08:31 12/17/16 11:04 Sodium Level 143mmol/L (136-145) Potassium Level 4.9mmol/L (3.5-5.1) Chloride Level 99mmol/L (98-107) Carbon Dioxide Level 32mmol/L (21-32) Anion Gap 12 (6-14) Blood Urea Nitrogen 58mg/dL (8-26) Creatinine 11.6mg/dL (0.7-1.3) Estimated GFR (Cockcroft-Gault) 4.5 Glucose Level 110mg/dL (70-99) Calcium Level 8.0mg/dL (8.5-10.1) Glucose (Fingerstick) 100mg/dL (70-99) 116mg/dL (70-99) Medications Current Medications Ondansetron HCl (Zofran) 4 mg PRN Q6HRS PRN IV NAUSEA/VOMITING; Start 12/15/16 at 21:00 Acetaminophen (Tylenol) 325 mg PRN Q4HRS PRN PO MILD PAIN / TEMP Last administered on 12/15/16 21:49; Start 12/15/16 at 21:00 Morphine Sulfate 3 mg PRN Q2HR PRN IV PAIN Last administered on 12/16/16 09:17 ; Start 12/15/16 at 21:00 Hydralazine HCl (Apresoline) 10 mg PRN Q4HRS PRN IVP ELEVATED BP, SEE COMMENTS ; Start 12/15/16 at 21:00 Alprazolam (Xanax) 0.5 mg PRN Q6HRS PRN PO ANXIETY / AGITATION Last administered on 12/17/16 10:59; Start 12/15/16 at 21:00 Amlodipine Besylate (Norvasc) 10 mg BID PO Last administered on 12/17/16 11:02 ; Start 12/14/16 at 21:30 Aspirin (Children'S Aspirin) 324 mg DAILY PO Last administered on 12/17/16 08: 58; Start 12/16/16 at 09:00 Calcium Carbonate/ Glycine (Oscal) 2,000 mg TIDWMEALS PO Last administered on 08:57; Start 12/16/16 at 08:00 Calcium Carbonate/ Glycine (Tums) 750 mg TIDAC PO Last administered on 08:58; Start 12/16/16 at 07:30 Isosorbide Mononitrate (Imdur) 30 mg DAILY PO Last administered on 12/17/16 11 :03; Start 12/16/16 at 09:00 Paroxetine HCl (Paxil Cr) 10 mg DAILY PO ; Start 12/16/16 at 09:00; Status UNV Tamsulosin HCl (Flomax) 0.4 mg QHS PO Last administered on 12/16/16 20:56; Start 12/15/16 at 21:30 Hydralazine HCl (Apresoline) 100 mg TID PO HTN; Start 12/15/16 at 21:30 Losartan Potassium (Cozaar) 100 mg HS PO HTN; Start 12/15/16 at 21:30 Metoprolol Tartrate (Lopressor) 100 mg BID PO Heart Last administered on 08:59; Start 12/15/16 at 21:30 Pantoprazole Sodium (Protonix) 40 mg DAILYAC PO Last administered on 12/17/16 08:57; Start 12/16/16 at 07:30 Clonidine HCl (Catapres) 0.3 mg DAILY PO ; Start 12/16/16 at 09:00 Paroxetine HCl (Paxil) 10 mg DAILY PO Last administered on 12/17/16 08:57; Start 12/16/16 at 09:00 Diphenhydramine HCl (Benadryl) 25 mg 1X ONCE PO Last administered on 23:36; Start 12/15/16 at 23:15; Stop 12/15/16 at 23:16; Status DC Sodium Polystyrene Sulfonate (Kayexalate) 30 gm 1X ONCE PO Last administered on 12/16/16 09:42; Start 12/16/16 at 09:15; Stop 12/16/16 at 09:16; Status DC Diphenhydramine HCl (Benadryl) 25 mg PRN Q6HRS PRN IVP ITCHING Last administered on 12/17/16 08:53; Start 12/16/16 at 15:45 Active Scripts Active Isosorbide Mononitrate Er (Isosorbide Mononitrate) 30 Mg Tab.er.24h 30 Mg PO DAILY Flomax (Tamsulosin Hcl) 0.4 Mg Cap.er.24h 0.4 Mg PO QHS Reported Paroxetine Hcl 20 Mg Tablet 10 Mg PO DAILY Tums (Calcium Carbonate) 200 Mg Tab.chew 800 Mg PO TIDAC Omeprazole Magnesium 20 Mg Capsule.dr 20 Mg PO DAILY Clonidine Hcl 0.3 Mg Tablet 1 Tab PO DAILY Calcium Carbonate 500 Mg Tablet 2,000 Mg PO TIDWMEALS Hydralazine Hcl 100 Mg Tablet 100 Mg PO TID LAST DOSE: 02/24/16 AFTERNOON NEXT DOSE: 02/24/16 BEDTIME Amlodipine Besylate 10 Mg Tablet 10 Mg PO BID LAST DOSE: 02/24/16 AM NEXT DOSE: 02/25/16 AM Xanax (Alprazolam) 0.5 Mg Tablet 0.5 Mg PO Q6HRS PRN LAST DOSE: 02/23/16 BEDTIME NEXT DOSE: 02/24/16 BEDTIME Losartan Potassium 100 Mg Tablet 100 Mg PO HS LAST DOSE: 02/23/16 BEDTIME NEXT DOSE: 02/24/16 BEDTIME Metoprolol Tartrate 100 Mg Tablet 100 Mg PO BID LAST DOSE: 02/24/16 AM NEXT DOSE: 02/24/16 BEDTIME Lillian Chewable (Aspirin) 81 Mg Tab.chew 324 Mg PO DAILY LAST DOSE: 02/24/16 AM NEXT DOSE: 02/25/16 AM Vitals/I & O Vital Sign - Last 24 Hours 12/16/16 12/16/16 12/16/16 12/16/16 13:41 15:00 19:40 20:00 Temp 97.3 98.2 97.3 98.2 Pulse 67 66 72 Resp 20 16 B/P 92/54 110/41 84/59 Pulse Ox 98 100 O2 Delivery Room Air Room Air Room Air 12/16/16 12/16/16 12/16/16 12/16/16 21:00 21:00 21:00 21:00 Pulse 72 72 72 72 B/P 84/59 84/59 84/59 84/59 12/16/16 12/17/16 12/17/16 12/17/16 23:35 03:13 07:00 08:00 Temp 98.5 98.6 97.5 98.5 98.6 97.5 Pulse 95 78 84 Resp 16 20 20 B/P 92/62 120/61 117/62 Pulse Ox 96 98 92 O2 Delivery Room Air Room Air Room Air Room Air 12/17/16 12/17/16 12/17/16 08:59 11:02 11:03 Pulse 82 75 75 B/P 117/62 125/68 125/58 Intake and Output 12/16/16 12/16/16 12/17/16 15:00 23:00 07:00 Intake Total 180 ml 500 ml Balance 180 ml 500 ml ARSALAN ESCAMILLA MD Dec 17, 2016 11:50
[2016-12-17 11:52] VITALS: BP 125/58
[2016-12-17] MEDS ORDERED: tiZANidine 4 MG TABLET. PO PRN (12:00)
--- NOTE | 2016-12-17 14:56 | PDOC ---
SUBJECTIVE ROS ESRD still min [id number] CVS: no Orthopnea, no CP RESP: no SOB, no FERNANDEZ GI: no Nausea, no Vomiting : no Dysuria, no Urgency OBJECTIVE Vital Signs Vital Signs Date Time Temp Pulse Resp B/P Pulse Ox O2 Delivery O2 Flow Rate FiO2 12/17/16 11:52 98.5 66 18 125/58 98 Room Air 98.5 I & 0 Intake and Output 12/17/16 07:00 Intake Total 680 ml Balance 680 ml Intake Oral 680 ml # Voids 5 PHYSICAL EXAM Physical Exam GEN: Awake, Oriented x 3, In no distress EYES: Vision Unchanged, Conjunctiva Normal EN: No EN Drainage, Mucous Membranes moist NECK: no JVD, no JVP, Supple, no Thyromegaly CVS: S1S2, soft Murmur, No Gallop, No Rub,no Edema RESP: no Rales, no Rhonchi,no Acc. Muscle Use GI: BS + ve, NO Bruit, Non Tender, Non Distended : no CVA tenderness, no Suprapubic Tenderness DIAGNOSIS/ASSESSMENT Assessment & Plan ESRD: Current fluid and E-lyte status does not necessitate emergent need for dialysis. Will re-evaluate for dialysis in the am and continue on TTSat schedule. ANEMIA; no Aranesp ordered for Hgb > 11, Transfuse with next HD as needed HTN: Current BP meds as reviewed. See orders for changes. Cramping - Will hold off of IVF for now; ? PVD eval ^K OA - now better CP with min +ve Trop - Given recurrence of CP - he may merit C Discussed Plan of Care with pt at bedside Problems: COMMENT/RELEVANT DATA Meds Current Medications Medications (Trade) Dose Ordered Sig/Cirilo Start Time Stop Time Status Last Admin Dose Admin Acetaminophen (Tylenol) 325 mg PRN Q4HRS PRN 12/15/16 21:00 12/15/16 21:49 325 MG Alprazolam (Xanax) 0.5 mg PRN Q6HRS PRN 12/15/16 21:00 12/17/16 10:59 0.5 MG Amlodipine Besylate (Norvasc) 10 mg BID 12/14/16 21:30 12/17/16 11:02 10 MG Aspirin (Children'S Aspirin) 324 mg DAILY 12/16/16 09:00 12/17/16 08:58 324 MG Calcium Carbonate/ Glycine (Oscal) 2,000 mg TIDWMEALS 12/16/16 08:00 12/17/16 12:18 2,000 MG Calcium Carbonate/ Glycine (Tums) 750 mg TIDAC 12/16/16 07:30 12/17/16 12:19 750 MG Clonidine HCl (Catapres) 0.3 mg DAILY 12/16/16 09:00 12/17/16 12:03 DC Diphenhydramine HCl (Benadryl) 25 mg PRN Q6HRS PRN 12/16/16 15:45 12/17/16 08:53 25 MG Hydralazine HCl (Apresoline) 100 mg TID 12/15/16 21:30 12/17/16 12:03 DC Isosorbide Mononitrate (Imdur) 30 mg DAILY 12/16/16 09:00 12/17/16 11:03 30 MG Losartan Potassium (Cozaar) 100 mg HS 12/15/16 21:30 Metoprolol Tartrate (Lopressor) 100 mg BID 12/15/16 21:30 12/17/16 08:59 100 MG Morphine Sulfate 3 mg PRN Q2HR PRN 12/15/16 21:00 12/16/16 09:17 3 MG Ondansetron HCl (Zofran) 4 mg PRN Q6HRS PRN 12/15/16 21:00 Pantoprazole Sodium (Protonix) 40 mg DAILYAC 12/16/16 07:30 12/17/16 08:57 40 MG Paroxetine HCl (Paxil Cr) 10 mg DAILY 12/16/16 09:00 UNV Paroxetine HCl (Paxil) 10 mg DAILY 12/16/16 09:00 12/17/16 08:57 10 MG Sodium Polystyrene Sulfonate (Kayexalate) 30 gm 1X ONCE 12/16/16 09:15 12/16/16 09:16 DC 12/16/16 09:42 30 GM Tamsulosin HCl (Flomax) 0.4 mg QHS 12/15/16 21:30 12/16/16 20:56 0.4 MG Tizanidine HCl (Zanaflex) 4 mg PRN Q8HRS PRN 12/17/16 12:00 12/17/16 12:25 4 MG Lab Laboratory Tests Test 12/17/16 05:19 12/17/16 08:31 12/17/16 11:04 Sodium Level 143mmol/L (136-145) Potassium Level 4.9mmol/L (3.5-5.1) Chloride Level 99mmol/L (98-107) Carbon Dioxide Level 32mmol/L (21-32) Anion Gap 12 (6-14) Blood Urea Nitrogen 58mg/dL (8-26) Creatinine 11.6mg/dL (0.7-1.3) Estimated GFR (Cockcroft-Gault) 4.5 Glucose Level 110mg/dL (70-99) Calcium Level 8.0mg/dL (8.5-10.1) Glucose (Fingerstick) 100mg/dL (70-99) 116mg/dL (70-99) TING GARDUNO MD Dec 17, 2016 14:56
[2016-12-17] MEDS ORDERED: MAGNESIUM SULFATE 2GM 50 ML IV PRN (15:00)
[2016-12-17 15:34] VITALS: BP 110/48
[2016-12-17 19:05] VITALS: BP 141/75
[2016-12-17] MEDS: LOSARTAN POTASSIUM 50 MG TABLET. PO SCH (21:04)
[2016-12-17] MEDS: TAMSULOSIN 0.4 MG CAP.ER.24H. PO SCH (21:04)
[2016-12-17] MEDS: MORPHINE SULFATE 4 MG/ML DISP.SYRIN. IV PRN (21:08)
[2016-12-17 23:05] VITALS: BP 137/53
[2016-12-18] VITALS (8 sets, daily range): BP systolic 115–138; BP diastolic 32–69
[2016-12-18 04:25] LABS: ALBUMIN 3.4 g/dL (3.4-5.0); CALCIUM 8.1 mg/dL (8.5-10.1); CREATININE 13.8 mg/dL (0.7-1.3); GFR 3.7; POTASSIUM 5.5 mmol/L (3.5-5.1)
[2016-12-18 04:27] LABS: PHOSPHORUS 10.1 mg/dL (2.6-4.7)
[2016-12-18] MEDS: CALCIUM CARBONATE 500 MG TAB.CHEW PO SCH ×3 (07:30→21:05)
[2016-12-18] MEDS: CALCIUM CARBONATE 500 MG TABLET PO SCH ×3 (08:00→21:04)
[2016-12-18 08:34] LABS: PROTHROMBIN TIME PATIENT 12.6 SEC (11.7-14.0)
[2016-12-18] MEDS: ASPIRIN 81 MG TAB.CHEW PO SCH (09:00)
[2016-12-18] MEDS: DIPHENHYDRAMINE 50 MG/ML VIAL IVP PRN (09:17)
[2016-12-18] MEDS: METOPROLOL TART IMMED RELEASE 50 MG TABLET PO SCH ×2 (09:18→21:05)
[2016-12-18] MEDS: ISOSORBIDE MONONITRATE ER 30 MG TAB.ER.24H PO SCH (09:18)
[2016-12-18] MEDS: PANTOPRAZOLE 40 MG TABLET. PO SCH (09:18)
[2016-12-18] MEDS: PAROXETINE 10 MG TABLET. PO SCH (09:18)
[2016-12-18] MEDS: ALPRAZOLAM 0.5 MG TABLET PO PRN ×3 (09:19→22:03)
[2016-12-18] MEDS: AMLODIPINE BESYLATE 10 MG TABLET PO SCH ×2 (09:19→21:05)
--- NOTE | 2016-12-18 10:25 | PDOC ---
PROGRESS NOTES Chief Complaint Chief Complaint 1. 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 COllagenous colitis 3. Severe anxiety 4. Dietary indiscretion 5, AOCD 6. NOn cardiac cp 7. Pruritus sec to hyperphosphatemia 8. BIlateral leg pains, claudication? 9./ Generalized cramps History of Present Illness History of Present Illness PAin and anxiety better Itching better after the benadryl\ BUt dry mouth now bec of benadryl - has ice chips COmplains of claudication. Wants cards to check for arterial circulation - ordered arteriogram today Kidney transplant being on the works - follows with [facility] Still crampy all over - K ok PLAN: arteriogarm today HD today Dc home eddie Cont present meds Vitals Vitals Vital Signs Date Time Temp Pulse Resp B/P Pulse Ox O2 Delivery O2 Flow Rate FiO2 12/18/16 09:19 61 127/57 12/18/16 08:00 97.7 18 98 Room Air 97.7 Physical Exam General: Alert, Oriented X3, Cooperative, No acute distress, Other (anxious) Heart: Regular rate, Normal S1, Normal S2 Lungs: Clear Abdomen: Normal bowel sounds, Soft, No tenderness, No hepatosplenomegaly, No masses Extremities: No clubbing, No cyanosis, No edema, Normal pulses, No tenderness/ swelling Skin: No rashes, No breakdown, No significant lesion Labs LABS Laboratory Tests Test 12/17/16 11:04 12/18/16 03:30 12/18/16 08:15 Glucose (Fingerstick) 116mg/dL (70-99) Hemoglobin 10.1g/dL (13.0-17.5) Sodium Level 142mmol/L (136-145) Potassium Level 5.5mmol/L (3.5-5.1) Chloride Level 99mmol/L (98-107) Carbon Dioxide Level 33mmol/L (21-32) Anion Gap 10 (6-14) Blood Urea Nitrogen 72mg/dL (8-26) Creatinine 13.8mg/dL (0.7-1.3) Estimated GFR (Cockcroft-Gault) 3.7 Glucose Level 106mg/dL (70-99) Calcium Level 8.1mg/dL (8.5-10.1) Phosphorus Level 10.1mg/dL (2.6-4.7) Magnesium Level 3.0mg/dL (1.8-2.4) Albumin 3.4g/dL (3.4-5.0) Prothrombin Time 12.6SEC (11.7-14.0) Prothromb Time International Ratio 1.0 (0.8-1.1) Comment Review of Relevant I have reviewed the following items dionte (where applicable) has been applied. Labs Laboratory Tests Test 12/17/16 05:19 12/17/16 08:31 12/17/16 11:04 12/18/16 03:30 Sodium Level 143mmol/L (136-145) 142mmol/L (136-145) Potassium Level 4.9mmol/L (3.5-5.1) 5.5mmol/L (3.5-5.1) Chloride Level 99mmol/L (98-107) 99mmol/L (98-107) Carbon Dioxide Level 32mmol/L (21-32) 33mmol/L (21-32) Anion Gap 12 (6-14) 10 (6-14) Blood Urea Nitrogen 58mg/dL (8-26) 72mg/dL (8-26) Creatinine 11.6mg/dL (0.7-1.3) 13.8mg/dL (0.7-1.3) Estimated GFR (Cockcroft-Gault) 4.5 3.7 Glucose Level 110mg/dL (70-99) 106mg/dL (70-99) Calcium Level 8.0mg/dL (8.5-10.1) 8.1mg/dL (8.5-10.1) Lipase 121U/L (73-393) Glucose (Fingerstick) 100mg/dL (70-99) 116mg/dL (70-99) Hemoglobin 10.1g/dL (13.0-17.5) Phosphorus Level 10.1mg/dL (2.6-4.7) Magnesium Level 3.0mg/dL (1.8-2.4) Albumin 3.4g/dL (3.4-5.0) Test 12/18/16 08:15 Prothrombin Time 12.6SEC (11.7-14.0) Prothromb Time International Ratio 1.0 (0.8-1.1) Laboratory Tests Test 12/17/16 11:04 12/18/16 03:30 12/18/16 08:15 Glucose (Fingerstick) 116mg/dL (70-99) Hemoglobin 10.1g/dL (13.0-17.5) Sodium Level 142mmol/L (136-145) Potassium Level 5.5mmol/L (3.5-5.1) Chloride Level 99mmol/L (98-107) Carbon Dioxide Level 33mmol/L (21-32) Anion Gap 10 (6-14) Blood Urea Nitrogen 72mg/dL (8-26) Creatinine 13.8mg/dL (0.7-1.3) Estimated GFR (Cockcroft-Gault) 3.7 Glucose Level 106mg/dL (70-99) Calcium Level 8.1mg/dL (8.5-10.1) Phosphorus Level 10.1mg/dL (2.6-4.7) Magnesium Level 3.0mg/dL (1.8-2.4) Albumin 3.4g/dL (3.4-5.0) Prothrombin Time 12.6SEC (11.7-14.0) Prothromb Time International Ratio 1.0 (0.8-1.1) Medications Current Medications Ondansetron HCl (Zofran) 4 mg PRN Q6HRS PRN IV NAUSEA/VOMITING; Start 12/15/16 at 21:00 Acetaminophen (Tylenol) 325 mg PRN Q4HRS PRN PO MILD PAIN / TEMP Last administered on 12/15/16 21:49; Start 12/15/16 at 21:00 Morphine Sulfate 3 mg PRN Q2HR PRN IV PAIN Last administered on 12/17/16 21:08 ; Start 12/15/16 at 21:00 Hydralazine HCl (Apresoline) 10 mg PRN Q4HRS PRN IVP ELEVATED BP, SEE COMMENTS ; Start 12/15/16 at 21:00 Alprazolam (Xanax) 0.5 mg PRN Q6HRS PRN PO ANXIETY / AGITATION Last administered on 12/18/16 09:19; Start 12/15/16 at 21:00 Amlodipine Besylate (Norvasc) 10 mg BID PO Last administered on 12/18/16 09:19 ; Start 12/14/16 at 21:30 Aspirin (Children'S Aspirin) 324 mg DAILY PO Last administered on 12/17/16 08: 58; Start 12/16/16 at 09:00 Calcium Carbonate/ Glycine (Oscal) 2,000 mg TIDWMEALS PO Last administered on 16:57; Start 12/16/16 at 08:00 Calcium Carbonate/ Glycine (Tums) 750 mg TIDAC PO Last administered on 16:57; Start 12/16/16 at 07:30 Isosorbide Mononitrate (Imdur) 30 mg DAILY PO Last administered on 12/18/16 09 :18; Start 12/16/16 at 09:00 Paroxetine HCl (Paxil Cr) 10 mg DAILY PO ; Start 12/16/16 at 09:00; Status UNV Tamsulosin HCl (Flomax) 0.4 mg QHS PO Last administered on 12/17/16 21:04; Start 12/15/16 at 21:30 Hydralazine HCl (Apresoline) 100 mg TID PO HTN; Start 12/15/16 at 21:30; Stop at 12:03; Status DC Losartan Potassium (Cozaar) 100 mg HS PO HTN Last administered on 12/17/16 21: 04; Start 12/15/16 at 21:30 Metoprolol Tartrate (Lopressor) 100 mg BID PO Heart Last administered on 09:18; Start 12/15/16 at 21:30 Pantoprazole Sodium (Protonix) 40 mg DAILYAC PO Last administered on 12/18/16 09:18; Start 12/16/16 at 07:30 Clonidine HCl (Catapres) 0.3 mg DAILY PO ; Start 12/16/16 at 09:00; Stop at 12:03; Status DC Paroxetine HCl (Paxil) 10 mg DAILY PO Last administered on 12/18/16 09:18; Start 12/16/16 at 09:00 Diphenhydramine HCl (Benadryl) 25 mg 1X ONCE PO Last administered on 23:36; Start 12/15/16 at 23:15; Stop 12/15/16 at 23:16; Status DC Sodium Polystyrene Sulfonate (Kayexalate) 30 gm 1X ONCE PO Last administered on 12/16/16 09:42; Start 12/16/16 at 09:15; Stop 12/16/16 at 09:16; Status DC Diphenhydramine HCl (Benadryl) 25 mg PRN Q6HRS PRN IVP ITCHING Last administered on 12/18/16 09:17; Start 12/16/16 at 15:45 Tizanidine HCl 4 mg 4 mg PRN Q8HRS PRN PO MUSCLE SPASMS Last administered on 12:25; Start 12/17/16 at 12:00 Magnesium Sulfate/ Dextrose (Magnesium Sulfate PREMIX 2GM) 50 ml @ 25 mls/hr PRN DAILY PRN IV for Mag < 1.7 on am labs; Start 12/17/16 at 15:00 Active Scripts Active Isosorbide Mononitrate Er (Isosorbide Mononitrate) 30 Mg Tab.er.24h 30 Mg PO DAILY Flomax (Tamsulosin Hcl) 0.4 Mg Cap.er.24h 0.4 Mg PO QHS Reported Paroxetine Hcl 20 Mg Tablet 10 Mg PO DAILY Tums (Calcium Carbonate) 200 Mg Tab.chew 800 Mg PO TIDAC Omeprazole Magnesium 20 Mg Capsule.dr 20 Mg PO DAILY Clonidine Hcl 0.3 Mg Tablet 1 Tab PO DAILY Calcium Carbonate 500 Mg Tablet 2,000 Mg PO TIDWMEALS Hydralazine Hcl 100 Mg Tablet 100 Mg PO TID LAST DOSE: 02/24/16 AFTERNOON NEXT DOSE: 02/24/16 BEDTIME Amlodipine Besylate 10 Mg Tablet 10 Mg PO BID LAST DOSE: 02/24/16 AM NEXT DOSE: 02/25/16 AM Xanax (Alprazolam) 0.5 Mg Tablet 0.5 Mg PO Q6HRS PRN LAST DOSE: 02/23/16 BEDTIME NEXT DOSE: 02/24/16 BEDTIME Losartan Potassium 100 Mg Tablet 100 Mg PO HS LAST DOSE: 02/23/16 BEDTIME NEXT DOSE: 02/24/16 BEDTIME Metoprolol Tartrate 100 Mg Tablet 100 Mg PO BID LAST DOSE: 02/24/16 AM NEXT DOSE: 02/24/16 BEDTIME Lillian Chewable (Aspirin) 81 Mg Tab.chew 324 Mg PO DAILY LAST DOSE: 02/24/16 AM NEXT DOSE: 02/25/16 AM Vitals/I & O Vital Sign - Last 24 Hours 12/17/16 12/17/16 12/17/16 12/17/16 11:02 11:03 11:52 15:34 Temp 98.5 97.7 98.5 97.7 Pulse 75 75 66 59 Resp 18 18 B/P 125/68 125/58 125/58 110/48 Pulse Ox 98 97 O2 Delivery Room Air Room Air 12/17/16 12/17/16 12/17/16 12/17/16 19:05 19:59 21:03 21:03 Temp 97.6 97.6 Pulse 64 64 64 Resp 18 B/P 141/75 141/75 141/75 Pulse Ox 97 O2 Delivery Room Air Room Air 12/17/16 12/17/16 12/18/16 12/18/16 21:04 23:05 03:00 07:48 Temp 97.4 97.8 97.4 97.8 Pulse 64 61 56 Resp 16 16 B/P 141/75 137/53 130/55 Pulse Ox 94 96 O2 Delivery Room Air Room Air Room Air 12/18/16 12/18/16 12/18/16 12/18/16 08:00 09:18 09:18 09:19 Temp 97.7 97.7 Pulse 61 61 61 61 Resp 18 B/P 127/57 127/57 127/57 127/57 Pulse Ox 98 O2 Delivery Room Air Intake and Output 12/17/16 12/17/16 12/18/16 15:00 23:00 07:00 Intake Total 300 ml 0 ml Balance 300 ml 0 ml ARSALAN ESCAMILLA MD Dec 18, 2016 10:25
--- NOTE | 2016-12-18 10:42 | PDOC ---
PROGRESS NOTES Subjective Subjective Patient says he is 50% better with Zanaflex for his cramps. Denies chest pain or dyspnea. Objective Objective Vital Signs Date Time Temp Pulse Resp B/P Pulse Ox O2 Delivery O2 Flow Rate FiO2 12/18/16 09:19 61 127/57 12/18/16 08:00 97.7 18 98 Room Air 97.7 Intake and Output 12/18/16 07:00 Intake Total 300 ml Balance 300 ml Intake Oral 300 ml # Voids 3 Physical Exam Physical Exam No significant changes in cardiac exam. Plan Plan of Care Aortogram with runoff pending for today. Results will determine need for further treatment. Comment Review of Relevant I have reviewed the following items dionte (where applicable) has been applied. Labs Laboratory Tests Test 12/17/16 05:19 12/17/16 08:31 12/17/16 11:04 12/18/16 03:30 Sodium Level 143mmol/L (136-145) 142mmol/L (136-145) Potassium Level 4.9mmol/L (3.5-5.1) 5.5mmol/L (3.5-5.1) Chloride Level 99mmol/L (98-107) 99mmol/L (98-107) Carbon Dioxide Level 32mmol/L (21-32) 33mmol/L (21-32) Anion Gap 12 (6-14) 10 (6-14) Blood Urea Nitrogen 58mg/dL (8-26) 72mg/dL (8-26) Creatinine 11.6mg/dL (0.7-1.3) 13.8mg/dL (0.7-1.3) Estimated GFR (Cockcroft-Gault) 4.5 3.7 Glucose Level 110mg/dL (70-99) 106mg/dL (70-99) Calcium Level 8.0mg/dL (8.5-10.1) 8.1mg/dL (8.5-10.1) Lipase 121U/L (73-393) Glucose (Fingerstick) 100mg/dL (70-99) 116mg/dL (70-99) Hemoglobin 10.1g/dL (13.0-17.5) Phosphorus Level 10.1mg/dL (2.6-4.7) Magnesium Level 3.0mg/dL (1.8-2.4) Albumin 3.4g/dL (3.4-5.0) Test 12/18/16 08:15 Prothrombin Time 12.6SEC (11.7-14.0) Prothromb Time International Ratio 1.0 (0.8-1.1) Laboratory Tests Test 12/17/16 11:04 12/18/16 03:30 12/18/16 08:15 Glucose (Fingerstick) 116mg/dL (70-99) Hemoglobin 10.1g/dL (13.0-17.5) Sodium Level 142mmol/L (136-145) Potassium Level 5.5mmol/L (3.5-5.1) Chloride Level 99mmol/L (98-107) Carbon Dioxide Level 33mmol/L (21-32) Anion Gap 10 (6-14) Blood Urea Nitrogen 72mg/dL (8-26) Creatinine 13.8mg/dL (0.7-1.3) Estimated GFR (Cockcroft-Gault) 3.7 Glucose Level 106mg/dL (70-99) Calcium Level 8.1mg/dL (8.5-10.1) Phosphorus Level 10.1mg/dL (2.6-4.7) Magnesium Level 3.0mg/dL (1.8-2.4) Albumin 3.4g/dL (3.4-5.0) Prothrombin Time 12.6SEC (11.7-14.0) Prothromb Time International Ratio 1.0 (0.8-1.1) Medications Current Medications Ondansetron HCl (Zofran) 4 mg PRN Q6HRS PRN IV NAUSEA/VOMITING; Start 12/15/16 at 21:00 Acetaminophen (Tylenol) 325 mg PRN Q4HRS PRN PO MILD PAIN / TEMP Last administered on 12/15/16 21:49; Start 12/15/16 at 21:00 Morphine Sulfate 3 mg PRN Q2HR PRN IV PAIN Last administered on 12/17/16 21:08 ; Start 12/15/16 at 21:00 Hydralazine HCl (Apresoline) 10 mg PRN Q4HRS PRN IVP ELEVATED BP, SEE COMMENTS ; Start 12/15/16 at 21:00 Alprazolam (Xanax) 0.5 mg PRN Q6HRS PRN PO ANXIETY / AGITATION Last administered on 12/18/16 09:19; Start 12/15/16 at 21:00 Amlodipine Besylate (Norvasc) 10 mg BID PO Last administered on 12/18/16 09:19 ; Start 12/14/16 at 21:30 Aspirin (Children'S Aspirin) 324 mg DAILY PO Last administered on 12/17/16 08: 58; Start 12/16/16 at 09:00 Calcium Carbonate/ Glycine (Oscal) 2,000 mg TIDWMEALS PO Last administered on 16:57; Start 12/16/16 at 08:00 Calcium Carbonate/ Glycine (Tums) 750 mg TIDAC PO Last administered on 16:57; Start 12/16/16 at 07:30 Isosorbide Mononitrate (Imdur) 30 mg DAILY PO Last administered on 12/18/16 09 :18; Start 12/16/16 at 09:00 Paroxetine HCl (Paxil Cr) 10 mg DAILY PO ; Start 12/16/16 at 09:00; Status UNV Tamsulosin HCl (Flomax) 0.4 mg QHS PO Last administered on 12/17/16 21:04; Start 12/15/16 at 21:30 Hydralazine HCl (Apresoline) 100 mg TID PO HTN; Start 12/15/16 at 21:30; Stop at 12:03; Status DC Losartan Potassium (Cozaar) 100 mg HS PO HTN Last administered on 12/17/16 21: 04; Start 12/15/16 at 21:30 Metoprolol Tartrate (Lopressor) 100 mg BID PO Heart Last administered on 09:18; Start 12/15/16 at 21:30 Pantoprazole Sodium (Protonix) 40 mg DAILYAC PO Last administered on 12/18/16 09:18; Start 12/16/16 at 07:30 Clonidine HCl (Catapres) 0.3 mg DAILY PO ; Start 12/16/16 at 09:00; Stop at 12:03; Status DC Paroxetine HCl (Paxil) 10 mg DAILY PO Last administered on 12/18/16 09:18; Start 12/16/16 at 09:00 Diphenhydramine HCl (Benadryl) 25 mg 1X ONCE PO Last administered on 23:36; Start 12/15/16 at 23:15; Stop 12/15/16 at 23:16; Status DC Sodium Polystyrene Sulfonate (Kayexalate) 30 gm 1X ONCE PO Last administered on 12/16/16 09:42; Start 12/16/16 at 09:15; Stop 12/16/16 at 09:16; Status DC Diphenhydramine HCl (Benadryl) 25 mg PRN Q6HRS PRN IVP ITCHING Last administered on 12/18/16 09:17; Start 12/16/16 at 15:45 Tizanidine HCl 4 mg 4 mg PRN Q8HRS PRN PO MUSCLE SPASMS Last administered on 12:25; Start 12/17/16 at 12:00 Magnesium Sulfate/ Dextrose (Magnesium Sulfate PREMIX 2GM) 50 ml @ 25 mls/hr PRN DAILY PRN IV for Mag < 1.7 on am labs; Start 12/17/16 at 15:00 Active Scripts Active Isosorbide Mononitrate Er (Isosorbide Mononitrate) 30 Mg Tab.er.24h 30 Mg PO DAILY Flomax (Tamsulosin Hcl) 0.4 Mg Cap.er.24h 0.4 Mg PO QHS Reported Paroxetine Hcl 20 Mg Tablet 10 Mg PO DAILY Tums (Calcium Carbonate) 200 Mg Tab.chew 800 Mg PO TIDAC Omeprazole Magnesium 20 Mg Capsule.dr 20 Mg PO DAILY Clonidine Hcl 0.3 Mg Tablet 1 Tab PO DAILY Calcium Carbonate 500 Mg Tablet 2,000 Mg PO TIDWMEALS Hydralazine Hcl 100 Mg Tablet 100 Mg PO TID LAST DOSE: 02/24/16 AFTERNOON NEXT DOSE: 02/24/16 BEDTIME Amlodipine Besylate 10 Mg Tablet 10 Mg PO BID LAST DOSE: 02/24/16 AM NEXT DOSE: 02/25/16 AM Xanax (Alprazolam) 0.5 Mg Tablet 0.5 Mg PO Q6HRS PRN LAST DOSE: 02/23/16 BEDTIME NEXT DOSE: 02/24/16 BEDTIME Losartan Potassium 100 Mg Tablet 100 Mg PO HS LAST DOSE: 02/23/16 BEDTIME NEXT DOSE: 02/24/16 BEDTIME Metoprolol Tartrate 100 Mg Tablet 100 Mg PO BID LAST DOSE: 02/24/16 AM NEXT DOSE: 02/24/16 BEDTIME Lillian Chewable (Aspirin) 81 Mg Tab.chew 324 Mg PO DAILY LAST DOSE: 02/24/16 AM NEXT DOSE: 02/25/16 AM Vitals/I & O Vital Sign - Last 24 Hours 12/17/16 12/17/16 12/17/16 12/17/16 11:02 11:03 11:52 15:34 Temp 98.5 97.7 98.5 97.7 Pulse 75 75 66 59 Resp 18 18 B/P 125/68 125/58 125/58 110/48 Pulse Ox 98 97 O2 Delivery Room Air Room Air 12/17/16 12/17/16 12/17/16 12/17/16 19:05 19:59 21:03 21:03 Temp 97.6 97.6 Pulse 64 64 64 Resp 18 B/P 141/75 141/75 141/75 Pulse Ox 97 O2 Delivery Room Air Room Air 12/17/16 12/17/16 12/18/16 12/18/16 21:04 23:05 03:00 07:48 Temp 97.4 97.8 97.4 97.8 Pulse 64 61 56 Resp 16 16 B/P 141/75 137/53 130/55 Pulse Ox 94 96 O2 Delivery Room Air Room Air Room Air 12/18/16 12/18/16 12/18/16 12/18/16 08:00 09:18 09:18 09:19 Temp 97.7 97.7 Pulse 61 61 61 61 Resp 18 B/P 127/57 127/57 127/57 127/57 Pulse Ox 98 O2 Delivery Room Air Intake and Output 12/17/16 12/17/16 12/18/16 15:00 23:00 07:00 Intake Total 300 ml 0 ml Balance 300 ml 0 ml ESTEFANÍA MANZO MD Dec 18, 2016 10:42
[2016-12-18] MEDS ORDERED: IODIXANOL 320MG/ML 50ML VIAL. ONE (12:31)
[2016-12-18] MEDS ORDERED: LIDOCAINE 1% / SOD BICARB 8.4% 20 ML VIAL. IJ ONE ×2 (12:31→13:15)
[2016-12-18] MEDS ORDERED: IOHEXOL 300 MG/ML 100ML VIAL. ONE (12:32)
[2016-12-18] MEDS ORDERED: HEPARIN for ARTERIAL LINE 1,500 ML ONE (12:34)
[2016-12-18] MEDS ORDERED: IODIXANOL 320 MG/ML 100 ML VIAL. ONE (12:34)
[2016-12-18] MEDS ORDERED: MIDAZOLAM HCL/PF 5 MG/5 ML VIAL IV ONE (13:15)
[2016-12-18] MEDS ORDERED: FENTANYL PF 250 MCG/5 ML VIAL. IV ONE (13:15)
[2016-12-18] MEDS ORDERED: IODIXANOL 320 MG/ML 100 ML VIAL. IART ONE (13:15)
[2016-12-18] MEDS ORDERED: IOHEXOL 300 MG/ML 100ML VIAL. IART ONE (13:15)
[2016-12-18] MEDS ORDERED: MIDAZOLAM HCL/PF 5 MG/5 ML VIAL ONE (13:19)
[2016-12-18] MEDS ORDERED: FENTANYL PF 250 MCG/5 ML VIAL. ONE (13:19)
[2016-12-18] MEDS ORDERED: CONTRAST GIVEN MC PRN (13:30)
[2016-12-18] MEDS ORDERED: HEPARIN for IV BOLUS 10,000 UNIT/10 ML VIAL. ONE (13:33)
[2016-12-18] MEDS ORDERED: DIPHENHYDRAMINE 50 MG/ML VIAL IVP ONE (14:15)
[2016-12-18] MEDS ORDERED: HEPARIN for IV BOLUS 10,000 UNIT/10 ML VIAL. IART ONE ×2 (14:15→16:00)
--- NOTE | 2016-12-18 14:48 | PDOC ---
SUBJECTIVE ROS ESRD Seen on IR Suite CVS: no Orthopnea, no CP RESP: no SOB, no FERNANDEZ GI: no Nausea, no Vomiting : no Dysuria, no Urgency OBJECTIVE Vital Signs Vital Signs Date Time Temp Pulse Resp B/P Pulse Ox O2 Delivery O2 Flow Rate FiO2 12/18/16 11:04 97.8 57 17 121/55 97 Room Air 97.8 I & 0 Intake and Output 12/18/16 07:00 Intake Total 300 ml Balance 300 ml Intake Oral 300 ml # Voids 3 PHYSICAL EXAM Physical Exam GEN: Awake, Oriented x 3, In no distress EYES: Vision Unchanged, Conjunctiva Normal EN: No EN Drainage, Mucous Membranes moist NECK: no JVD, no JVP, Supple, no Thyromegaly CVS: S1S2, soft Murmur, No Gallop, No Rub,no Edema RESP: no Rales, no Rhonchi,no Acc. Muscle Use GI: BS + ve, NO Bruit, Non Tender, Non Distended : no CVA tenderness, no Suprapubic Tenderness DIAGNOSIS/ASSESSMENT Assessment & Plan ESRD: Dialysis as below F 180 NR 3.5 Hrs 2 K 2.5 Ca 140 Na 30 HC03 Qb 350 + Qd 500+ Heparin 0 Units Uf to dry weight as tolerated May give 25-50 gms of 25% Albumin if needed to maintain Hemodynamic stability Treatment plan reviewed and discussed with portrait photographer ANEMIA; Aranap as ordered, Transfuse with next HD as needed HTN: Current BP meds as reviewed. See orders for changes. JANNA - (^^ Phos) suspect due to pts Non-compliance with Diet and binder regimen. PVD - S/p angion +/- PCI today Problems: COMMENT/RELEVANT DATA Meds Current Medications Medications (Trade) Dose Ordered Sig/Cirilo Start Time Stop Time Status Last Admin Dose Admin Acetaminophen (Tylenol) 325 mg PRN Q4HRS PRN 12/15/16 21:00 12/15/16 21:49 325 MG Alprazolam (Xanax) 0.5 mg PRN Q6HRS PRN 12/15/16 21:00 12/18/16 09:19 0.5 MG Amlodipine Besylate (Norvasc) 10 mg BID 12/14/16 21:30 12/18/16 09:19 10 MG Aspirin (Children'S Aspirin) 324 mg DAILY 12/16/16 09:00 12/17/16 08:58 324 MG Calcium Carbonate/ Glycine (Oscal) 2,000 mg TIDWMEALS 12/16/16 08:00 12/17/16 16:57 2,000 MG Calcium Carbonate/ Glycine (Tums) 750 mg TIDAC 12/16/16 07:30 12/17/16 16:57 750 MG Clonidine HCl (Catapres) 0.3 mg DAILY 12/16/16 09:00 12/17/16 12:03 DC Diphenhydramine HCl (Benadryl) 50 mg 1X ONCE 12/18/16 14:15 12/18/16 14:19 DC Fentanyl Citrate (Fentanyl 5ml Vial) 250 mcg 1X ONCE 12/18/16 13:15 12/18/16 13:26 DC Heparin Sodium (Porcine) 5,000 unit 1X ONCE 12/18/16 14:15 12/18/16 14:19 DC Heparin Sodium/ Sodium Chloride 1,000 unit 1X ONCE 12/18/16 13:15 12/18/16 13:26 DC Hydralazine HCl (Apresoline) 100 mg TID 12/15/16 21:30 12/17/16 12:03 DC Info (Do NOT chart on this entry -- for MONITORING) 1 each PRN DAILY PRN 12/18/16 13:30 12/20/16 13:29 Iodixanol (Visipaque 320) 150 ml 1X ONCE 12/18/16 13:15 12/18/16 13:26 DC Iohexol (Omnipaque 300 Mg/ml) 100 ml 1X ONCE 12/18/16 13:15 12/18/16 13:26 DC Isosorbide Mononitrate (Imdur) 30 mg DAILY 12/16/16 09:00 12/18/16 09:18 30 MG Lidocaine/Sodium Bicarbonate (Buffered Lidocaine 1%) 20 ml 1X ONCE 12/18/16 13:15 12/18/16 13:26 DC Losartan Potassium (Cozaar) 100 mg HS 12/15/16 21:30 12/17/16 21:04 100 MG Magnesium Sulfate/ Dextrose (Magnesium Sulfate PREMIX 2GM) 50 ml @ 25 mls/hr PRN DAILY PRN 12/17/16 15:00 Metoprolol Tartrate (Lopressor) 100 mg BID 12/15/16 21:30 12/18/16 09:18 100 MG Midazolam HCl (Versed) 5 mg 1X ONCE 12/18/16 13:15 12/18/16 13:26 DC Morphine Sulfate 3 mg PRN Q2HR PRN 12/15/16 21:00 12/17/16 21:08 3 MG Ondansetron HCl (Zofran) 4 mg PRN Q6HRS PRN 12/15/16 21:00 Pantoprazole Sodium (Protonix) 40 mg DAILYAC 12/16/16 07:30 12/18/16 09:18 40 MG Paroxetine HCl (Paxil Cr) 10 mg DAILY 12/16/16 09:00 UNV Paroxetine HCl (Paxil) 10 mg DAILY 12/16/16 09:00 12/18/16 09:18 10 MG Sodium Polystyrene Sulfonate (Kayexalate) 30 gm 1X ONCE 12/16/16 09:15 12/16/16 09:16 DC 12/16/16 09:42 30 GM Tamsulosin HCl (Flomax) 0.4 mg QHS 12/15/16 21:30 12/17/16 21:04 0.4 MG Tizanidine HCl 4 mg 4 mg PRN Q8HRS PRN 12/17/16 12:00 12/17/16 12:25 4 MG Lab Laboratory Tests Test 12/18/16 03:30 12/18/16 08:15 Hemoglobin 10.1g/dL (13.0-17.5) Sodium Level 142mmol/L (136-145) Potassium Level 5.5mmol/L (3.5-5.1) Chloride Level 99mmol/L (98-107) Carbon Dioxide Level 33mmol/L (21-32) Anion Gap 10 (6-14) Blood Urea Nitrogen 72mg/dL (8-26) Creatinine 13.8mg/dL (0.7-1.3) Estimated GFR (Cockcroft-Gault) 3.7 Glucose Level 106mg/dL (70-99) Calcium Level 8.1mg/dL (8.5-10.1) Phosphorus Level 10.1mg/dL (2.6-4.7) Magnesium Level 3.0mg/dL (1.8-2.4) Albumin 3.4g/dL (3.4-5.0) Prothrombin Time 12.6SEC (11.7-14.0) Prothromb Time International Ratio 1.0 (0.8-1.1) TING GARDUNO MD Dec 18, 2016 14:48
[2016-12-18] MEDS ORDERED: CLOPIDOGREL BISULFATE 75 MG TABLET ONE (14:50)
[2016-12-18] MEDS ORDERED: CLOPIDOGREL BISULFATE 75 MG TABLET PO ONE (15:00)
--- NOTE | 2016-12-18 15:51 | PDOC ---
MODERATE SEDATION ASSESSMENT RISKS/ALTERNATIVES Risks/Alternatives Risks and alternatives of this type of sedation and procedure discussed with: RISK/ALTERNATIVES: Patient H & P ON CHART H & P H & P on chart and reviewed for co-morbid conditions and appropriate labs. H&P ON CHART: Yes STATUS PREG STATUS ASSESSED: N/A MEDS/ALLERGIES REVIEWED Meds/Allergies Reviewed Medications and Allergies including time and route of recently administered narcotics and sedatives. MEDS/ALLERGIES REVIEWED: Yes ASA RATING ASA RATING: III AIRWAY ASSESSMENT Airway Assessment Airway patency, oral function limitations, presence of caps, crowns, dentures, partials, and ability to extend neck assessed. AIRWAY ASSESSMENT: Yes MALLAMPATI SCORE MALLAMPATI SCORE: II PRE-SEDATION ASSESSMENT PRE-SEDATION ASSESSMENT: Yes NATALIA OLSEN MD Dec 18, 2016 15:51
[2016-12-18] MEDS: MORPHINE SULFATE 4 MG/ML DISP.SYRIN. IV PRN ×2 (16:02→22:04)
--- NOTE | 2016-12-18 16:08 | PDOC ---
Exam Va Underwriter Va Underwriter Viola Aquatics Lifeguard Aquatics Lifeguard B Cates Pre-Procedure Diagnosis Pre-Procedure Diagnosis 61 YO male with known, angiographically proven significant bilateral SFA-Pop atherosclerotic occlusive disease, with bilateral calf claudication. Post-Procedure Diagnosis Post-Procedure Diagnosis Same. Advanced in-stent restenosis within previously placed bare metal right SFA stents. Severe, long segment gambell left SFA occlusive disease. Procedure Performed Procedure Performed Abdominal aortogram with selective left lower extremity angio Left SFA SOFTWARE ENGINEER KERNEL followed by Viabahn endograft implantation Type of Anesthesia Type of Anesthesia Local + mod sedation Estimated Blood Loss EBL: 50 cc Condition of Patient Condition of Patient Stable. No apparent complication. Disposition Disposition From IR to ICU for groin monitoring and for HD. F/u with Renal, HIMS, and Dr Kiran. Will reschedule for right SFA intervention in near future. Full report to follow. NATALIA OLSEN MD Dec 18, 2016 16:08
[2016-12-18] MEDS ORDERED: DIALYSIS PATIENT. MC PRN ×2 (17:15)
[2016-12-18] MEDS: TAMSULOSIN 0.4 MG CAP.ER.24H. PO SCH (21:03)
[2016-12-18] MEDS: LOSARTAN POTASSIUM 50 MG TABLET. PO SCH (21:04)
[2016-12-19 03:00] VITALS: BP 107/31
[2016-12-19 07:00] VITALS: BP 107/31
--- NOTE | 2016-12-19 07:10 | RAD ---
Abdominal aortogram with left lower extremity arteriogram Left SFA GRAIN GRADER followed by Viabahn endograft placement Indication: 61-year-old male with known, angiographically proven, significant bilateral SFA-popliteal atherosclerotic occlusive disease. He has bilateral calf claudication. Diagnostic arteriogram, with possible intervention, has been requested by cardiology. Fluoroscopy time: 30.0 minutes Kerma-area Product: 311 Gycm2 Contrast material: 55 cc Omnipaque 300. 126 cc Visipaque 320. Anesthesia: 96 minutes moderate sedation was provided utilizing a total of 4 mg Versed and 200 mcg fentanyl, IV. The patient was appropriately monitored by a qualified independent observer throughout the time of moderate sedation. Consent: The procedure was explained in its entirety to the patient and/or the patient's designated data entry representative by a member of the treatment team. This included a discussion of risks and benefits and commonly accepted alternatives to the procedure, as well as expected consequences of no treatment at all. Discussion of risks included, but was not limited to, those that are most frequent and those that are rare, but possibly severe or life-threatening, as well as the possibility of unforeseen complications. Sterility: All elements of maximal sterile barrier technique were utilized, including cap, mask, sterile gown, sterile gloves, large sterile sheet, appropriate hand hygiene, and 2% chlorhexidine for cutaneous antisepsis. Procedure: Informed consent was obtained from the patient. He was placed supine on the angiography table. Preliminary ultrasound examination of right groin revealed wide patency of right common femoral artery, which was documented with a single hard copy ultrasound image. Right groin was then prepped and draped in the usual sterile fashion, utilizing all elements of maximal sterile barrier technique, as described above. Moderate sedation was provided with IV Versed and fentanyl. Using aseptic technique, local anesthesia, direct ultrasound guidance, and the micropuncture system, a 5 [place]an right common femoral artery sheath was successfully introduced. Abdominal aortogram: A 5 [place] Omni Flush catheter was advanced through the right groin sheath and was positioned within suprarenal abdominal aorta. Omnipaque 300 was injected and abdominal aortogram DSA images were obtained. Findings: Distal infrarenal abdominal aorta shows moderate as described plaquing, without significant stricture, and without aneurysmal dilatation. Renal arteries are small, bilaterally, consistent with this patient's known end-stage renal disease, without hemodynamically significant stenosis. Celiac trunk, SMA, and FIFI are opacified. Oblique pelvis injections: The Omni Flush catheter was withdrawn into distal abdominal aorta. Omnipaque 300 was injected and DSA images were obtained over pelvis and groins in the JON and MILLER projections. Findings: Common iliac arteries show mild to moderate atherosclerotic plaquing, without hemodynamically significant stenosis. No significant stenosis is identified within external iliac arteries, bilaterally. Both hypogastric arteries are patent, with high-grade origin stenoses, bilaterally. Selective left lower extremity arteriogram: The Omni Flush catheter was advanced across aortic bifurcation over a Glidewire and was positioned within contralateral left common femoral artery. Visipaque was injected and DSA images were obtained from groin through knee. Following left SFA recanalization procedure, as described below, a Devin Cross catheter was successfully positioned within mid left popliteal artery. Visipaque was injected and DSA images were obtained from knee through foot. Findings: Left common femoral artery shows moderate calcific plaquing, without significant stenosis. Left deep femoral artery is widely patent. Proximal segment of left superficial femoral artery is diffusely small in caliber, with areas of moderate stenosis. Mid left superficial femoral artery is severely and diffusely disease, with focal areas of critical stenosis. Distal segment of left superficial femoral artery is completely occluded. Left popliteal artery is reconstituted near abductor canal. The reconstituted left popliteal artery shows moderate as described plaquing, without localized flow-limiting stenosis. Left tibial trifurcation is widely patent. With three-vessel runoff to distal calf/ankle. Perfusion to left foot is suboptimal, suggesting significant distal small vessel disease. Left SFA GRAIN GRADER and covered stent placement: Given this patient's left calf claudication, the decision was made to proceed with attempted recanalization of his severely diseased left superficial femoral artery. The patient's 5 Guinean right common femoral artery sheath was exchanged for a 7 Guinean 45 cm long Yrn sheath, which was directed across aortic bifurcation into contralateral left common femoral artery over a Terumo advantage guidewire. Subsequently, following IV bolus ministration of 5000 units heparin, a Devin Cross catheter was advanced through the Yrn sheath and was carefully directed over a 0.0.35 inch Terumo advantage guidewire, followed by a 0.018 inch Terumo advantage guidewire, through the patient's severely diseased left superficial femoral artery into mid left popliteal artery. Satisfactory intraluminal position of the Devin Cross catheter was confirmed with a contrast injection. The Devin Cross catheter was then removed over a 0.014 inch grand slam microguidewire. A 2.5 mm x 150 mm orifice saber GRAIN GRADER balloon was then advanced over the grand slam wire through the Yrn sheath and was utilized to perform preliminary balloon dilatation of the completely occluded distal left superficial femoral artery. The 2.5 mm saber GRAIN GRADER balloon was then exchanged for a 4 mm I 120 mm Cordis chocolate GRAIN GRADER balloon, which was utilized to perform prolonged balloon dilatation of entire left SFA, from origin through abductor canal, to a peak pressure of 12 chito. The chocolate GRAIN GRADER balloon was then deflated and removed. Subsequently, utilizing fluoroscopic guidance and road mapping technique, a 5 mm x 250 mm [place] Viabahn endograft was advanced through the Ancel sheath over the grand slam wire, and was successfully deployed, extending from origin SFA through distal SFA. Post dilatation of the endograft was then performed utilizing a 5 mm x 100 mm Cordis Powerflex GRAIN GRADER balloon, inflated to a peak pressure of 10 chito. The Powerflex balloon was then deflated and removed. Visipaque was injected through the Yrn sheath and completion DSA images were obtained. Those images revealed brisk antegrade flow through widely patent left superficial femoral artery, without evidence of complicating dissection, thrombosis, or distal embolization. Patient tolerated the procedures well without apparent complication. Prior to removal, the right groin Yrn sheath was withdrawn and was positioned with its tip within its lateral distal right external iliac artery. A single low volume hand-injection of Visipaque was performed and DSA images were obtained over right groin and the distal right thigh. Those images confirmed complete origin occlusion of previously stented right superficial femoral artery, with popliteal artery reconstitution near abductor canal. The Yrn sheath was then removed, and hemostasis was achieved at the right groin puncture site utilizing the Angio-Seal system. Impression: 1. No abdominal aortic aneurysm or significant iliac inflow stenosis, bilaterally. 2. Widely patent left deep femoral artery. 3. Diffusely and severely diseased left superficial femoral artery, with mid segment critical stenoses and the distal segment occlusion, for which successful, uneventful GRAIN GRADER followed by placement of a single 250 mm long Viabahn endograft was performed, as described. 4. Widely patent tibial trifurcation, with three-vessel distal runoff to ankle. Perfusion to left foot is suboptimal, raising the question of significant distal small vessel disease. 5. Prior to right groin sheath removal, a hand-injection of Visipaque was performed, confirming origin occlusion of previously stented right superficial femoral artery, with popliteal artery reconstitution near abductor canal. Given this patient's history of bilateral calf claudication, repeat right SFA percutaneous intervention or referral to vascular surgery for femoral-popliteal bypass graft placement is considered indicated.
[2016-12-19] MEDS ORDERED: CLOPIDOGREL BISULFATE 75 MG TABLET PO SCH (08:00)
[2016-12-19] MEDS: ALPRAZOLAM 0.5 MG TABLET PO PRN (08:18)
[2016-12-19] MEDS: CALCIUM CARBONATE 500 MG TAB.CHEW PO SCH (08:18)
[2016-12-19] MEDS: PAROXETINE 10 MG TABLET. PO SCH (08:18)
[2016-12-19] MEDS: AMLODIPINE BESYLATE 10 MG TABLET PO SCH (08:19)
[2016-12-19] MEDS: CALCIUM CARBONATE 500 MG TABLET PO SCH (08:19)
[2016-12-19] MEDS: PANTOPRAZOLE 40 MG TABLET. PO SCH (08:19)
[2016-12-19] MEDS: ISOSORBIDE MONONITRATE ER 30 MG TAB.ER.24H PO SCH ×2 (08:19→11:01)
[2016-12-19] MEDS: METOPROLOL TART IMMED RELEASE 50 MG TABLET PO SCH ×2 (08:21→11:12)
[2016-12-19] MEDS: ASPIRIN 81 MG TAB.CHEW PO SCH (08:22)
[2016-12-19] MEDS: MORPHINE SULFATE 4 MG/ML DISP.SYRIN. IV PRN (08:28)
[2016-12-19] MEDS ORDERED: CLOP75TA PO (10:29)
--- NOTE | 2016-12-19 10:33 | PDOC3 ---
Discharge Summary Visit Information Date of Admission: Dec 17, 2016 Date of Discharge: Dec 19, 2016 Admitting Diagnosis Comment: 1. 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 COllagenous colitis 3. Severe anxiety 4. Dietary indiscretion 5, AOCD 6. NOn cardiac cp 7. Pruritus sec to hyperphosphatemia 8. BIlateral leg pains, claudication? 9./ Generalized cramps 10. FEmoral artery dse s/p stenting (IR 12/18) Final Diagnosis Problems Medical Problems: (1) Femoral-popliteal artery atherosclerosis Status: Acute Brief Hospital Course Allergies Allergies Coded Allergies Type Severity Reaction Last Updated Verified aspirin Adverse Reaction Intermediate GI UPSET, TAKES 81MG ASPIRIN AT HOME 04/23 Yes Vital Signs Vital Signs Date Time Temp Pulse Resp B/P Pulse Ox O2 Delivery O2 Flow Rate FiO2 12/19/16 08:28 100 Room Air 12/19/16 08:19 56 136/31 12/19/16 07:00 10 12/19/16 03:00 98.6 98.6 12/18/16 16:02 3.0 Lab Results Laboratory Tests Test 12/17/16 11:04 12/18/16 03:30 12/18/16 08:15 Glucose (Fingerstick) 116mg/dL (70-99) Hemoglobin 10.1g/dL (13.0-17.5) Sodium Level 142mmol/L (136-145) Potassium Level 5.5mmol/L (3.5-5.1) Chloride Level 99mmol/L (98-107) Carbon Dioxide Level 33mmol/L (21-32) Anion Gap 10 (6-14) Blood Urea Nitrogen 72mg/dL (8-26) Creatinine 13.8mg/dL (0.7-1.3) Estimated GFR (Cockcroft-Gault) 3.7 Glucose Level 106mg/dL (70-99) Calcium Level 8.1mg/dL (8.5-10.1) Phosphorus Level 10.1mg/dL (2.6-4.7) Magnesium Level 3.0mg/dL (1.8-2.4) Albumin 3.4g/dL (3.4-5.0) Prothrombin Time 12.6SEC (11.7-14.0) Prothromb Time International Ratio 1.0 (0.8-1.1) Brief Hospital Course Mr. Long is a 61 old male known to us bec of high anxiety level, ESRD from PKD on HD TTHS. This time he also complained of claudication, arteriogram showed superficial fem artery dse needing stenting by IR., Tolerated proc well, started on plavix. To come back as oP for IR to do the other leg Rx for hydrocodones and plavix given Dc instructions discussed Pt seen and examined Dw [facility] [employer] DispO; home time 31 mins Discharge Information Condition at Discharge: Improved, Stable Follow Up: Weeks (Lalo martinez next week for stenting other leg) Disposition/Orders: D/C to Home Scheduled Amlodipine Besylate (Amlodipine Besylate) 10 MG PO BID (Reported) Aspirin (Lillian Chewable) 324 MG PO DAILY (Reported) Calcium Carbonate (Calcium Carbonate) 2,000 MG PO TIDWMEALS (Reported) Calcium Carbonate (Tums) 800 MG PO TIDAC (Reported) Clonidine Hcl (Clonidine Hcl) 1 TAB PO DAILY (Reported) Hydralazine Hcl (Hydralazine Hcl) 100 MG PO TID (Reported) Isosorbide Mononitrate (Isosorbide Mononitrate Er) 30 MG PO DAILY Losartan Potassium (Losartan Potassium) 100 MG PO HS (Reported) Metoprolol Tartrate (Metoprolol Tartrate) 100 MG PO BID (Reported) Omeprazole Magnesium (Omeprazole Magnesium) 20 MG PO DAILY (Reported) Paroxetine Hcl (Paroxetine Hcl) 10 MG PO DAILY (Reported) Tamsulosin Hcl (Flomax) 0.4 MG PO QHS Scheduled PRN Alprazolam (Xanax) 0.5 MG PO Q6HRS PRN PRN ANXIETY / AGITATION (Reported) Discontinued Medications Clopidogrel Bisulfate (Clopidogrel) 1 TAB PO DAILY (Reported) Paroxetine HCl (Paroxetine Cr) 10 MG PO DAILY (Reported) ARSALAN ESCAMILLA MD Dec 19, 2016 10:33
[2016-12-19] MEDS ORDERED: MAGNESIUM SULFATE 2GM 50 ML IV PRN (10:45)
[2016-12-19 11:05] LABS: ALBUMIN 3.2 g/dL (3.4-5.0); CALCIUM 8.7 mg/dL (8.5-10.1); CREATININE 9.2 mg/dL (0.7-1.3); GFR 5.9; PHOSPHORUS 5.7 mg/dL (2.6-4.7); POTASSIUM 4.9 mmol/L (3.5-5.1)
--- NOTE | 2016-12-19 11:13 | PDOC ---
SUBJECTIVE ROS ESRD Doing better this am CVS: no Orthopnea, no CP RESP: no SOB, no FERNANDEZ GI: no Nausea, no Vomiting : no Dysuria, no Urgency OBJECTIVE Vital Signs Vital Signs Date Time Temp Pulse Resp B/P Pulse Ox O2 Delivery O2 Flow Rate FiO2 12/19/16 11:01 62 136/36 12/19/16 08:58 100 Room Air 12/19/16 07:00 10 12/19/16 03:00 98.6 98.6 12/18/16 16:02 3.0 I & 0 Intake and Output 12/19/16 07:00 Intake Total 360 ml Balance 360 ml Intake Oral 360 ml PHYSICAL EXAM Physical Exam GEN: Awake, Oriented x 3, In no distress EYES: Vision Unchanged, Conjunctiva Normal EN: No EN Drainage, Mucous Membranes moist NECK: no JVD, no JVP, Supple, no Thyromegaly CVS: S1S2, soft Murmur, No Gallop, No Rub,no Edema RESP: no Rales, no Rhonchi,no Acc. Muscle Use GI: BS + ve, NO Bruit, Non Tender, Non Distended : no CVA tenderness, no Suprapubic Tenderness DIAGNOSIS/ASSESSMENT Assessment & Plan ESRD: Current fluid and E-lyte status does not necessitate emergent need for dialysis. Will re-evaluate for dialysis in the am and continue on TTSat schedule. ANEMIA; no Aranesp ordered for Hgb > 11 in the past, Transfuse with next HD as needed; restart EPO per OP Protocol HTN: Current BP meds as reviewed. See orders for changes. PVD eval as done yest, for more PCI in 2 weeks. Discussed Plan of Care with pt at bedside COMMENT/RELEVANT DATA Meds Current Medications Medications (Trade) Dose Ordered Sig/Cirilo Start Time Stop Time Status Last Admin Dose Admin Acetaminophen (Tylenol) 325 mg PRN Q4HRS PRN 12/15/16 21:00 12/15/16 21:49 325 MG Alprazolam (Xanax) 0.5 mg PRN Q6HRS PRN 12/15/16 21:00 12/19/16 08:18 0.5 MG Amlodipine Besylate (Norvasc) 10 mg BID 12/14/16 21:30 12/19/16 08:19 10 MG Aspirin (Children'S Aspirin) 324 mg DAILY 12/16/16 09:00 12/19/16 08:22 324 MG Calcium Carbonate/ Glycine (Oscal) 2,000 mg TIDWMEALS 12/16/16 08:00 12/19/16 08:19 2,000 MG Calcium Carbonate/ Glycine (Tums) 750 mg TIDAC 12/16/16 07:30 12/19/16 08:18 750 MG Clonidine HCl (Catapres) 0.3 mg DAILY 12/16/16 09:00 12/17/16 12:03 DC Clopidogrel Bisulfate (Plavix) 75 mg DAILYWBKFT 12/19/16 08:00 06/18/17 08:00 12/19/16 08:19 75 MG Diphenhydramine HCl (Benadryl) 50 mg 1X ONCE 12/18/16 14:15 12/18/16 14:19 DC 12/18/16 15:21 50 MG Fentanyl Citrate (Fentanyl 5ml Vial) 250 mcg 1X ONCE 12/18/16 13:15 12/18/16 13:26 DC 12/18/16 15:19 200 MCG Heparin Sodium (Porcine) 2,500 unit 1X ONCE 12/18/16 16:00 12/18/16 16:01 DC 12/18/16 15:30 2,500 UNIT Heparin Sodium/ Sodium Chloride 1,000 unit 1X ONCE 12/18/16 13:15 12/18/16 13:26 DC 12/18/16 15:20 1,000 UNIT Hydralazine HCl (Apresoline) 100 mg TID 12/15/16 21:30 12/17/16 12:03 DC Info (Do NOT chart on this entry -- for MONITORING) 1 each PRN DAILY PRN 12/18/16 13:30 12/20/16 13:29 Info (PHARMACY MONITORING -- do not chart) 1 each PRN DAILY PRN 12/18/16 17:15 UNV Info 1 each 1 each PRN DAILY PRN 12/18/16 17:15 Iodixanol (Visipaque 320) 150 ml 1X ONCE 12/18/16 13:15 12/18/16 13:26 DC 12/18/16 15:20 100 ML Iohexol (Omnipaque 300 Mg/ml) 100 ml 1X ONCE 12/18/16 13:15 12/18/16 13:26 DC 12/18/16 15:20 55 ML Isosorbide Mononitrate (Imdur) 30 mg DAILY 12/16/16 09:00 12/19/16 11:01 30 MG Lidocaine/Sodium Bicarbonate (Buffered Lidocaine 1%) 20 ml 1X ONCE 12/18/16 13:15 12/18/16 13:26 DC 12/18/16 15:19 7 ML Losartan Potassium (Cozaar) 100 mg HS 12/15/16 21:30 12/18/16 21:04 100 MG Magnesium Sulfate/ Dextrose (Magnesium Sulfate PREMIX 2GM) 50 ml @ 25 mls/hr PRN DAILY PRN 12/19/16 10:45 Metoprolol Tartrate (Lopressor) 100 mg BID 12/15/16 21:30 12/18/16 21:05 100 MG Midazolam HCl (Versed) 5 mg 1X ONCE 12/18/16 13:15 12/18/16 13:26 DC 12/18/16 15:18 4 MG Morphine Sulfate 3 mg PRN Q2HR PRN 12/15/16 21:00 12/19/16 08:28 3 MG Ondansetron HCl (Zofran) 4 mg PRN Q6HRS PRN 12/15/16 21:00 Pantoprazole Sodium (Protonix) 40 mg DAILYAC 12/16/16 07:30 12/19/16 08:19 40 MG Paroxetine HCl (Paxil Cr) 10 mg DAILY 12/16/16 09:00 UNV Paroxetine HCl (Paxil) 10 mg DAILY 12/16/16 09:00 12/19/16 08:18 10 MG Sodium Polystyrene Sulfonate (Kayexalate) 30 gm 1X ONCE 12/16/16 09:15 12/16/16 09:16 DC 12/16/16 09:42 30 GM Tamsulosin HCl (Flomax) 0.4 mg QHS 12/15/16 21:30 12/18/16 21:03 0.4 MG Tizanidine HCl (Zanaflex) 4 mg PRN Q8HRS PRN 12/17/16 12:00 12/17/16 12:25 4 MG Lab Laboratory Tests Test 12/19/16 10:45 Sodium Level 138mmol/L (136-145) Potassium Level 4.9mmol/L (3.5-5.1) Chloride Level 100mmol/L (98-107) Carbon Dioxide Level 30mmol/L (21-32) Anion Gap 8 (6-14) Blood Urea Nitrogen 38mg/dL (8-26) Creatinine 9.2mg/dL (0.7-1.3) Estimated GFR (Cockcroft-Gault) 5.9 Glucose Level 113mg/dL (70-99) Calcium Level 8.7mg/dL (8.5-10.1) Phosphorus Level 5.7mg/dL (2.6-4.7) Magnesium Level 2.2mg/dL (1.8-2.4) Albumin 3.2g/dL (3.4-5.0) TING GARDUNO MD Dec 19, 2016 11:13
[2016-12-19 11:14] VITALS: BP 121/36
--- NOTE | 2016-12-19 12:33 | PDOC ---
PROGRESS NOTES Subjective Subjective Patient reports he is feeling well enough to be discharged home. No new cardiac complaints Objective Objective Vital Signs Date Time Temp Pulse Resp B/P Pulse Ox O2 Delivery O2 Flow Rate FiO2 12/19/16 11:14 62 10 121/36 100 Room Air 12/19/16 03:00 98.6 98.6 12/18/16 16:02 3.0 Intake and Output 12/19/16 07:00 Intake Total 360 ml Balance 360 ml Intake Oral 360 ml Physical Exam Physical Exam Cardiac exam is unchanged Assessment Assessment Problems Medical Problems: (1) Femoral-popliteal artery atherosclerosis Status: Acute Plan Plan of Care Patient is stable from a cardiac standpoint for discharge. Recommend continuing aspirin and plavix. Patient reports he is coming back in two weeks for stenting of other leg, will see patient then and then set up follow up as outpatient at that time. Thank you for the consultation. Comment Review of Relevant I have reviewed the following items dionte (where applicable) has been applied. Labs Laboratory Tests Test 12/18/16 03:30 12/18/16 08:15 12/19/16 10:45 Hemoglobin 10.1g/dL (13.0-17.5) Sodium Level 142mmol/L (136-145) 138mmol/L (136-145) Potassium Level 5.5mmol/L (3.5-5.1) 4.9mmol/L (3.5-5.1) Chloride Level 99mmol/L (98-107) 100mmol/L (98-107) Carbon Dioxide Level 33mmol/L (21-32) 30mmol/L (21-32) Anion Gap 10 (6-14) 8 (6-14) Blood Urea Nitrogen 72mg/dL (8-26) 38mg/dL (8-26) Creatinine 13.8mg/dL (0.7-1.3) 9.2mg/dL (0.7-1.3) Estimated GFR (Cockcroft-Gault) 3.7 5.9 Glucose Level 106mg/dL (70-99) 113mg/dL (70-99) Calcium Level 8.1mg/dL (8.5-10.1) 8.7mg/dL (8.5-10.1) Phosphorus Level 10.1mg/dL (2.6-4.7) 5.7mg/dL (2.6-4.7) Magnesium Level 3.0mg/dL (1.8-2.4) 2.2mg/dL (1.8-2.4) Albumin 3.4g/dL (3.4-5.0) 3.2g/dL (3.4-5.0) Prothrombin Time 12.6SEC (11.7-14.0) Prothromb Time International Ratio 1.0 (0.8-1.1) Laboratory Tests Test 12/19/16 10:45 Sodium Level 138mmol/L (136-145) Potassium Level 4.9mmol/L (3.5-5.1) Chloride Level 100mmol/L (98-107) Carbon Dioxide Level 30mmol/L (21-32) Anion Gap 8 (6-14) Blood Urea Nitrogen 38mg/dL (8-26) Creatinine 9.2mg/dL (0.7-1.3) Estimated GFR (Cockcroft-Gault) 5.9 Glucose Level 113mg/dL (70-99) Calcium Level 8.7mg/dL (8.5-10.1) Phosphorus Level 5.7mg/dL (2.6-4.7) Magnesium Level 2.2mg/dL (1.8-2.4) Albumin 3.2g/dL (3.4-5.0) Medications Current Medications Ondansetron HCl (Zofran) 4 mg PRN Q6HRS PRN IV NAUSEA/VOMITING; Start 12/15/16 at 21:00 Acetaminophen (Tylenol) 325 mg PRN Q4HRS PRN PO MILD PAIN / TEMP Last administered on 12/15/16 21:49; Start 12/15/16 at 21:00 Morphine Sulfate 3 mg PRN Q2HR PRN IV PAIN Last administered on 12/19/16 08:28 ; Start 12/15/16 at 21:00 Hydralazine HCl (Apresoline) 10 mg PRN Q4HRS PRN IVP ELEVATED BP, SEE COMMENTS ; Start 12/15/16 at 21:00 Alprazolam (Xanax) 0.5 mg PRN Q6HRS PRN PO ANXIETY / AGITATION Last administered on 12/19/16 08:18; Start 12/15/16 at 21:00 Amlodipine Besylate (Norvasc) 10 mg BID PO Last administered on 12/19/16 08:19 ; Start 12/14/16 at 21:30 Aspirin (Children'S Aspirin) 324 mg DAILY PO Last administered on 12/19/16 08: 22; Start 12/16/16 at 09:00 Calcium Carbonate/ Glycine (Oscal) 2,000 mg TIDWMEALS PO Last administered on 08:19; Start 12/16/16 at 08:00 Calcium Carbonate/ Glycine (Tums) 750 mg TIDAC PO Last administered on 08:18; Start 12/16/16 at 07:30 Isosorbide Mononitrate (Imdur) 30 mg DAILY PO Last administered on 12/19/16 11: 01; Start 12/16/16 at 09:00 Paroxetine HCl (Paxil Cr) 10 mg DAILY PO ; Start 12/16/16 at 09:00; Status UNV Tamsulosin HCl (Flomax) 0.4 mg QHS PO Last administered on 12/18/16 21:03; Start 12/15/16 at 21:30 Hydralazine HCl (Apresoline) 100 mg TID PO HTN; Start 12/15/16 at 21:30; Stop at 12:03; Status DC Losartan Potassium (Cozaar) 100 mg HS PO HTN Last administered on 12/18/16 21: 04; Start 12/15/16 at 21:30 Metoprolol Tartrate (Lopressor) 100 mg BID PO Heart Last administered on 11:12; Start 12/15/16 at 21:30 Pantoprazole Sodium (Protonix) 40 mg DAILYAC PO Last administered on 12/19/16 08:19; Start 12/16/16 at 07:30 Clonidine HCl (Catapres) 0.3 mg DAILY PO ; Start 12/16/16 at 09:00; Stop at 12:03; Status DC Paroxetine HCl (Paxil) 10 mg DAILY PO Last administered on 12/19/16 08:18; Start 12/16/16 at 09:00 Diphenhydramine HCl (Benadryl) 25 mg 1X ONCE PO Last administered on 23:36; Start 12/15/16 at 23:15; Stop 12/15/16 at 23:16; Status DC Sodium Polystyrene Sulfonate (Kayexalate) 30 gm 1X ONCE PO Last administered on 12/16/16 09:42; Start 12/16/16 at 09:15; Stop 12/16/16 at 09:16; Status DC Diphenhydramine HCl (Benadryl) 25 mg PRN Q6HRS PRN IVP ITCHING Last administered on 12/18/16 09:17; Start 12/16/16 at 15:45 Tizanidine HCl 4 mg 4 mg PRN Q8HRS PRN PO MUSCLE SPASMS Last administered on 12:25; Start 12/17/16 at 12:00 Magnesium Sulfate/ Dextrose (Magnesium Sulfate PREMIX 2GM) 50 ml @ 25 mls/hr PRN DAILY PRN IV for Mag < 1.7 on am labs; Start 12/17/16 at 15:00 Lidocaine/Sodium Bicarbonate (Buffered Lidocaine 1%) 20 ml STK-MED ONCE IJ ; Start 12/18/16 at 12:31; Stop 12/18/16 at 12:32; Status DC Iodixanol (Visipaque 320) 50 ml STK-MED ONCE .ROUTE ; Start 12/18/16 at 12:31; Stop 12/18/16 at 12:32; Status DC Iohexol 100 ml 100 ml STK-MED ONCE .ROUTE ; Start 12/18/16 at 12:32; Stop at 12:33; Status DC Heparin Sodium/ Sodium Chloride 1,500 ml @ As Directed STK-MED ONCE .ROUTE ; Start 12/18/16 at 12:34; Stop 12/18/16 at 12:35; Status DC Iodixanol (Visipaque 320) 100 ml STK-MED ONCE .ROUTE ; Start 12/18/16 at 12:34; Stop 12/18/16 at 12:35; Status DC Midazolam HCl (Versed) 5 mg STK-MED ONCE .ROUTE ; Start 12/18/16 at 13:19; Stop 12/18/16 at 13:20; Status DC Fentanyl Citrate (Fentanyl 5ml Vial) 250 mcg STK-MED ONCE .ROUTE ; Start at 13:19; Stop 12/18/16 at 13:20; Status DC Heparin Sodium/ Sodium Chloride 1,000 unit 1X ONCE IART Last administered on 15:20; Start 12/18/16 at 13:15; Stop 12/18/16 at 13:26; Status DC Lidocaine/Sodium Bicarbonate (Buffered Lidocaine 1%) 20 ml 1X ONCE IJ Last administered on 12/18/16 15:19; Start 12/18/16 at 13:15; Stop 12/18/16 at 13:26 ; Status DC Midazolam HCl (Versed) 5 mg 1X ONCE IV Last administered on 12/18/16 15:18; Start 12/18/16 at 13:15; Stop 12/18/16 at 13:26; Status DC Fentanyl Citrate (Fentanyl 5ml Vial) 250 mcg 1X ONCE IV Last administered on 15:19; Start 12/18/16 at 13:15; Stop 12/18/16 at 13:26; Status DC Iohexol (Omnipaque 300 Mg/ml) 100 ml 1X ONCE IART Last administered on 15:20; Start 12/18/16 at 13:15; Stop 12/18/16 at 13:26; Status DC Iodixanol (Visipaque 320) 150 ml 1X ONCE IART Last administered on 12/18/16 15:20; Start 12/18/16 at 13:15; Stop 12/18/16 at 13:26; Status DC Info (Do NOT chart on this entry -- for MONITORING) 1 each PRN DAILY PRN MC SEE COMMENTS; Start 12/18/16 at 13:30; Stop 12/20/16 at 13:29 Heparin Sodium (Porcine) 10,000 unit STK-MED ONCE .ROUTE ; Start 12/18/16 at 13: 33; Stop 12/18/16 at 13:34; Status DC Heparin Sodium (Porcine) 5,000 unit 1X ONCE IART Last administered on 15:21; Start 12/18/16 at 14:15; Stop 12/18/16 at 14:19; Status DC Diphenhydramine HCl (Benadryl) 50 mg 1X ONCE IVP Last administered on 15:21; Start 12/18/16 at 14:15; Stop 12/18/16 at 14:19; Status DC Clopidogrel Bisulfate (Plavix) 75 mg STK-MED ONCE .ROUTE ; Start 12/18/16 at 14: 50; Stop 12/18/16 at 14:51; Status DC Clopidogrel Bisulfate (Plavix) 600 mg 1X ONCE PO Last administered on 15:17; Start 12/18/16 at 15:00; Stop 12/18/16 at 15:01; Status DC Heparin Sodium (Porcine) 2,500 unit 1X ONCE IART Last administered on 15:30; Start 12/18/16 at 16:00; Stop 12/18/16 at 16:01; Status DC Clopidogrel Bisulfate (Plavix) 75 mg DAILYWBKFT PO Last administered on 08:19; Start 12/19/16 at 08:00; Stop 06/18/17 at 08:00 Info (PHARMACY MONITORING -- do not chart) 1 each PRN DAILY PRN MC SEE COMMENTS ; Start 12/18/16 at 17:15; Status UNV Info 1 each 1 each PRN DAILY PRN MC SEE COMMENTS; Start 12/18/16 at 17:15 Magnesium Sulfate/ Dextrose (Magnesium Sulfate PREMIX 2GM) 50 ml @ 25 mls/hr PRN DAILY PRN IV for Mag < 1.7 on am labs; Start 12/19/16 at 10:45; Stop at 12:21; Status DC Active Scripts Active Clopidogrel (Clopidogrel Bisulfate) 75 Mg Tablet 1 Tab PO DAILY Isosorbide Mononitrate Er (Isosorbide Mononitrate) 30 Mg Tab.er.24h 30 Mg PO DAILY Flomax (Tamsulosin Hcl) 0.4 Mg Cap.er.24h 0.4 Mg PO QHS Reported Paroxetine Hcl 20 Mg Tablet 10 Mg PO DAILY Tums (Calcium Carbonate) 200 Mg Tab.chew 800 Mg PO TIDAC Omeprazole Magnesium 20 Mg Capsule.dr 20 Mg PO DAILY Clonidine Hcl 0.3 Mg Tablet 1 Tab PO DAILY Calcium Carbonate 500 Mg Tablet 2,000 Mg PO TIDWMEALS Hydralazine Hcl 100 Mg Tablet 100 Mg PO TID LAST DOSE: 02/24/16 AFTERNOON NEXT DOSE: 02/24/16 BEDTIME Amlodipine Besylate 10 Mg Tablet 10 Mg PO BID LAST DOSE: 02/24/16 AM NEXT DOSE: 02/25/16 AM Xanax (Alprazolam) 0.5 Mg Tablet 0.5 Mg PO Q6HRS PRN LAST DOSE: 02/23/16 BEDTIME NEXT DOSE: 02/24/16 BEDTIME Losartan Potassium 100 Mg Tablet 100 Mg PO HS LAST DOSE: 02/23/16 BEDTIME NEXT DOSE: 02/24/16 BEDTIME Metoprolol Tartrate 100 Mg Tablet 100 Mg PO BID LAST DOSE: 02/24/16 AM NEXT DOSE: 02/24/16 BEDTIME Lillian Chewable (Aspirin) 81 Mg Tab.chew 324 Mg PO DAILY LAST DOSE: 02/24/16 AM NEXT DOSE: 02/25/16 AM Vitals/I & O Vital Sign - Last 24 Hours 12/18/16 12/18/16 12/18/16 12/18/16 14:58 15:19 15:45 16:02 Pulse 59 Resp 15 20 Pulse Ox 92 92 92 O2 Delivery Nasal Cannula Nasal Cannula Room Air Room Air O2 Flow Rate 4.0 3.0 3.0 12/18/16 12/18/16 12/18/16 12/18/16 19:00 20:30 21:00 21:04 Temp 97.7 97.7 Pulse 54 56 61 Resp 16 16 B/P 116/46 115/48 116/69 Pulse Ox 99 100 O2 Delivery Room Air Room Air Room Air 12/18/16 12/18/16 12/18/16 12/18/16 21:05 21:05 22:00 22:04 Pulse 61 61 61 Resp 13 18 B/P 116/69 116/69 116/69 Pulse Ox 100 98 O2 Delivery Room Air 12/18/16 12/18/16 12/19/16 12/19/16 22:45 23:00 03:00 07:00 Temp 98.3 98.6 98.3 98.6 Pulse 61 54 56 Resp 20 20 10 10 B/P 138/32 107/31 107/31 Pulse Ox 95 100 100 O2 Delivery Room Air Room Air Room Air 12/19/16 12/19/16 12/19/16 12/19/16 08:00 08:19 08:28 08:58 Pulse 56 B/P 136/31 Pulse Ox 100 100 O2 Delivery Room Air Room Air Room Air 212/19/16 12/19/16 11:01 11:12 11:14 Pulse 62 58 62 Resp 10 B/P 136/36 121/36 121/36 Pulse Ox 100 O2 Delivery Room Air Intake and Output 12/18/16 12/18/16 12/19/16 15:00 23:00 07:00 Intake Total 240 ml 120 ml Balance 240 ml 120 ml ESTEFANÍA MANZO MD Dec 19, 2016 12:33
--- NOTE | 2016-12-19 12:47 | ACF ---
Admission Forms Criteria VASCULAR DISEASE GRG Clinical Indications for Admission to Inpatient Care (Place 'X' for any and all applicable criteria): Hospital admission is needed for appropriate care of the patient because of ANY ONE of the following (1)(2)(3)(4): [ ]I. Life-threatening or limb-threatening skin ulcer as indicated by ANY ONE of the following(5): [ ]a) Surrounding cellulitis unresponsive to outpatient treatment [ ]b) Wet gangrene [ ]c) Lymphangitis [ ]d) Bacteremia [ ]II. Gangrene requiring intensity and frequency of care not manageable to outpatient, emergency, or observation level of care(5) [ ]III. Severe pain requiring acute inpatient management [X]IV. Interventional revascularization (eg, surgery, thrombolysis) needed (eg , critical limb ischemia)(21) [ ]V. Urgent inpatient IV anticoagulation needed due to ALL of the following: [ ]a) Temporary subtherapeutic anticoagulation unacceptable because of high risk of short-term venous or arterial thromboembolism due to ANY ONE of the following(7)(8)(9): [ ]i) Venous thromboembolism within the past 12 months [ ]ii) Underlying malignancy [ ]iii) Patient with mechanical cardiac valve(10)(11) [ ]iv) Underlying hypercoagulable state (eg, protein C or protein S deficiency, antithrombin deficiency, antiphospholipid antibodies) [ ]v) Patient at high risk of thromboembolism (eg, status post orthopedic surgery, history of recurrent venous thromboembolism) [ ]vi) Atrial fibrillation with rheumatic valvular heart disease [ ]vii) Atrial fibrillation with 3 or MORE of the following : [ ]1) Congestive heart failure [ ]2) Hypertension [ ]3) Age 65 years or older [ ]4) Diabetes mellitus [ ]5) History of thromboembolism (eg, stroke, TIA , or systemic embolization) more than 3 months ago [ ]6) Female gender [ ]b) Contraindications to outpatient use of "bridging" agent or alternative oral anticoagulant as indicated by ALL of the following: [ ]i) Contraindication to outpatient use of low-molecular -weight heparin as "bridging" agent as indicated by ANY ONE of the following(8) : [ ]1) Documented current or history of heparin- induced thrombocytopenia(12) [ ]2) Severe thrombocytopenia (eg, platelet count less than 50,000/mm3 (50 x109/L)) [ ]3) Documented allergy to heparin, low- molecular-weight heparin, or pork products [ ]4) Renal failure (creatinine clearance < 30 mL /min/1.73m2 (0.50 mL/sec/1.73m2) or on dialysis) [ ]5) Inability to manage self-injection (eg, by patient, caregiver, or visiting nurse) [ ]ii) Contraindication to outpatient use of fondaparinux as "bridging" agent as indicated by ANY ONE of the following(13)(14)(15)(16): [ ]1) Severe thrombocytopenia (eg, platelet count less than 50,000/mm3 (50 x109/L)) [ ]2) Hypersensitivity to fondaparinux, related drugs, or product components [ ]3) Renal failure (creatinine clearance less than 30 mL/min/1.73m2 (0.50 mL/sec/1.73m2) or on dialysis) [ ]4) Inability to manage self-injection (eg, by patient, caregiver, or visiting nurse) [ ]iii) Oral direct thrombin inhibitor (eg, dabigatran) or oral coagulation factor Xa inhibitor (eg, rivaroxaban) not appropriate as oral anticoagulation (eg, indication not appropriate) or contraindicated (eg, hypersensitivity, renal failure)(13)(16)(17)(18)(19)(20) [ ]. Suspected severe acute ischemia due to peripheral vascular disease as indicated by ANY ONE of the following(5)(6): [ ]a) Tissue necrosis [ ]b) Severe pain [ ]c) Acute pulselessness [ ]d) Other evidence of acute severe ischemia (eg, lactic acidosis , motor dysfunction) [ ]VII. Acute or newly diagnosed major vessel (eg, aorta) dissection, rupture, or leakage(5)(6)(22)(23) [ ]VIII.Vascular Disease and ALL of the following: [ ]a) Symptom or finding for which emergency and observation care have failed or are not considered appropriate (Use General Criteria: Observation Care as appropriate) [ ]b) Presence of ANY ONE of the following: [ ]i) A General Admission Criteria [ ]ii) A Pediatric General Admission Criteria The [facility] content created by [facility] has been revised. The portions of the content which have been revised are identified through the use of italic text or in bold, and [facility] has neither reviewed nor approved the modified material. All other unmodified content is copyright [facility]. Please see references footnoted in the original [facility] edition 2016 Admission Criteria Met?: Yes ROB DAI Dec 19, 2016 12:47 SHANNAN CROCKETT MD Dec 24, 2016 08:51
== END 2016-12-19 13:10 | disposition home or self-care (01) | DRG 270 ==
LOC: 2 SOUTH 19:32 → OBSVTOIN 12-17 14:51 → 1 WEST ICU 12-18 15:40
PROVIDERS: ADMIT Internal Medicine; ATTEND Internal Medicine
PROC: 04VL3DZ Restriction of Left Femoral Artery with Intraluminal Device, Percutaneous Approach (ICD-10-PCS; principal; 2016-12-18)
PROC: 047L3ZZ Dilation of Left Femoral Artery, Percutaneous Approach (ICD-10-PCS; 2016-12-18)
PROC: B41D1ZZ Fluoroscopy of Aorta and Bilateral Lower Extremity Arteries using Low Osmolar Contrast (ICD-10-PCS; 2016-12-18)
DX: I70.213 Atherosclerosis of native arteries of extremities with intermittent claudication, bilateral legs (principal); N18.6 End stage renal disease; I12.0 Hypertensive chronic kidney disease with stage 5 chronic kidney disease or end stage renal disease; D63.8 Anemia in other chronic diseases classified elsewhere; E87.5 Hyperkalemia; F41.9 Anxiety disorder, unspecified; I25.10 Atherosclerotic heart disease of native coronary artery without angina pectoris; K21.9 Gastro-esophageal reflux disease without esophagitis; K52.831 Collagenous colitis; L29.9 Pruritus, unspecified; Z82.3 Family history of stroke; Z88.6 Allergy status to analgesic agent; Z83.3 Family history of diabetes mellitus
CPT/HCPCS: 36415; 37226; 75625; 75710; 75774; 76937; 80048; 80069; 82947; 83690; 83735; 84484; 85018; 85027; 85610; 99406; A4215; C1713; C1725; C1758; C1760; C1769; C1892; C1894; G0269; G0378; G0379; J1200; J2250; J2270; J3010; Q0163; Q9967

== ENCOUNTER 2017-01-02 08:24 | Outpatient (CLI) | payer MEDICARE ==
[~2017-01-02] VITALS: Ht 170.2 cm; Wt 73.5 kg
[2017-01-02] VITALS (9 sets, daily range): BP systolic 92–121; BP diastolic 48–58
[2017-01-02] MEDS ORDERED: FOLI0.8T3 PO (08:36)
[2017-01-02] MEDS ORDERED: FURO80TA3 PO (08:36)
[2017-01-02 08:45] LABS: BASO # 0.2 x10^3/uL (0.0-0.2); BASO % 1 % (0-3); EOS % 3 % (0-3); HEMATOCRIT 36.5 % (39.0-53.0); HEMOGLOBIN 11.9 g/dL (13.0-17.5); LYMPH # 1.4 x10^3/uL (1.0-4.8); LYMPH % 11 % (24-48); MEAN CORPUSCULAR HEMOGLOBIN 30 pg (25-35); MEAN CORPUSCULAR HGB CONC 33 g/dL (31-37); MEAN CORPUSCULAR VOLUME 93 fL (79-100); MONO % 12 % (0-9); NEUT % 73 % (31-73); PLATELET COUNT 400 x10^3/uL (140-400); RED BLOOD COUNT 3.91 x10^6/uL (4.30-5.70); WHITE BLOOD COUNT 12.2 x10^3/uL (4.0-11.0)
[2017-01-02 08:55] LABS: INR 0.9 (0.8-1.1); PROTHROMBIN TIME PATIENT 11.8 SEC (11.7-14.0)
[2017-01-02 09:12] LABS: CALCIUM 8.2 mg/dL (8.5-10.1); CREATININE 9.3 mg/dL (0.7-1.3); GFR 5.8; POTASSIUM 5.9 mmol/L (3.5-5.1)
[2017-01-02] MEDS ORDERED: IODIXANOL 320MG/ML 50ML VIAL. ONE (09:23)
[2017-01-02] MEDS ORDERED: HEPARIN for ARTERIAL LINE 1,500 ML ONE (09:23)
[2017-01-02] MEDS ORDERED: IOHEXOL 300 MG/ML 100ML VIAL. ONE (09:23)
[2017-01-02] MEDS ORDERED: IODIXANOL 320 MG/ML 100 ML VIAL. ONE (09:24)
[2017-01-02] MEDS ORDERED: MIDAZOLAM HCL 2 MG/2 ML VIAL. ONE (09:37)
[2017-01-02] MEDS ORDERED: FENTANYL PF 100 MCG/2 ML VIAL. ONE (09:37)
[2017-01-02] MEDS ORDERED: LIDOCAINE 1% / SOD BICARB 8.4% 20 ML VIAL. IJ ONE ×2 (09:45→10:00)
[2017-01-02] MEDS ORDERED: DIPHENHYDRAMINE 50 MG/ML VIAL ONE (09:47)
[2017-01-02] MEDS ORDERED: IODIXANOL 320 MG/ML 100 ML VIAL. IART ONE (10:00)
[2017-01-02] MEDS ORDERED: MIDAZOLAM HCL 2 MG/2 ML VIAL. IV ONE (10:00)
[2017-01-02] MEDS ORDERED: FENTANYL PF 100 MCG/2 ML VIAL. IV ONE (10:00)
--- NOTE | 2017-01-02 11:39 | PDOC ---
MODERATE SEDATION ASSESSMENT RISKS/ALTERNATIVES Risks/Alternatives Risks and alternatives of this type of sedation and procedure discussed with: RISK/ALTERNATIVES: Patient H & P ON CHART H & P H & P on chart and reviewed for co-morbid conditions and appropriate labs. H&P ON CHART: Yes STATUS PREG STATUS ASSESSED: N/A MEDS/ALLERGIES REVIEWED Meds/Allergies Reviewed Medications and Allergies including time and route of recently administered narcotics and sedatives. MEDS/ALLERGIES REVIEWED: Yes ASA RATING ASA RATING: III AIRWAY ASSESSMENT Airway Assessment Airway patency, oral function limitations, presence of caps, crowns, dentures, partials, and ability to extend neck assessed. AIRWAY ASSESSMENT: Yes MALLAMPATI SCORE MALLAMPATI SCORE: II PRE-SEDATION ASSESSMENT PRE-SEDATION ASSESSMENT: Yes NATALIA OLSEN MD Jan 02, 2017 11:39
--- NOTE | 2017-01-02 11:43 | PDOC1 ---
History and Physical Date of Procedure Date of Admission 01/02/17 Procedure Procedure Right lower extremity arteriogram with intervention Indication Indication 61 YO male with PAD. Multiple CV risk factors. Recurrent rt calf claudication. Recurrent rt SFA-POP in-stent re-stenosis/occlusion, s/p prior intervention in 2013. Past Medical History Past Medical History See Nursing Pre procedure PMH Past Surgical History Past Surgical History See Nursing Pre Procedure PSH Current Medications Current Medications Current Medications Iodixanol (Visipaque 320) 50 ml STK-MED ONCE .ROUTE ; Start 01/02/17 at 09:23; Stop 01/02/17 at 09:24; Status DC Iohexol 100 ml 100 ml STK-MED ONCE .ROUTE ; Start 01/02/17 at 09:23; Stop at 09:24; Status DC Heparin Sodium/ Sodium Chloride 1,500 ml @ As Directed STK-MED ONCE .ROUTE ; Start 01/02/17 at 09:23; Stop 01/02/17 at 09:24; Status DC Iodixanol (Visipaque 320) 100 ml STK-MED ONCE .ROUTE ; Start 01/02/17 at 09:24; Stop 01/02/17 at 09:25; Status DC Lidocaine/Sodium Bicarbonate (Buffered Lidocaine 1%) 20 ml 1X ONCE IJ Last administered on 01/02/17t 11:15; Start 01/02/17 at 09:45; Stop 01/02/17 at 09:46 ; Status DC Fentanyl Citrate (Fentanyl 2ml Vial) 100 mcg STK-MED ONCE .ROUTE ; Start at 09:37; Stop 01/02/17 at 09:38; Status DC Midazolam HCl (Versed) 2 mg STK-MED ONCE .ROUTE ; Start 01/02/17 at 09:37; Stop 01/02/17 at 09:38; Status DC Diphenhydramine HCl (Benadryl) 50 mg STK-MED ONCE .ROUTE ; Start 01/02/17 at 09: 47; Stop 01/02/17 at 09:49; Status DC Heparin Sodium/ Sodium Chloride 1,000 unit 1X ONCE IART Last administered on t 11:15; Start 01/02/17 at 10:00; Stop 01/02/17 at 10:01; Status DC Lidocaine/Sodium Bicarbonate (Buffered Lidocaine 1%) 20 ml 1X ONCE IJ ; Start 01/02/17 at 10:00; Stop 01/02/17 at 11:36; Status DC Midazolam HCl (Versed) 2 mg 1X ONCE IV Last administered on 01/02/17 11:16; Start 01/02/17 at 10:00; Stop 01/02/17 at 10:01; Status DC Fentanyl Citrate (Fentanyl 2ml Vial) 100 mcg 1X ONCE IV Last administered on 11:16; Start 01/02/17 at 10:00; Stop 01/02/17 at 10:01; Status DC Iodixanol (Visipaque 320) 100 ml 1X ONCE IART Last administered on 01/02/17 11:15; Start 01/02/17 at 10:00; Stop 01/02/17 at 10:01; Status DC Active Scripts Active Clopidogrel (Clopidogrel Bisulfate) 75 Mg Tablet 1 Tab PO DAILY Isosorbide Mononitrate Er (Isosorbide Mononitrate) 30 Mg Tab.er.24h 30 Mg PO DAILY Flomax (Tamsulosin Hcl) 0.4 Mg Cap.er.24h 0.4 Mg PO QHS Reported Furosemide 80 Mg Tablet 1 Tab PO BID Nephro-Chilo Tablet (Folic Acid/Vitamin B Comp W-C) 0.8 Mg Tablet 1 Tab PO DAILY Paroxetine Hcl 20 Mg Tablet 40 Mg PO DAILY Tums (Calcium Carbonate) 200 Mg Tab.chew 800 Mg PO TIDAC Omeprazole Magnesium 20 Mg Capsule.dr 20 Mg PO DAILY Clonidine Hcl 0.3 Mg Tablet 1 Tab PO DAILY Calcium Carbonate 500 Mg Tablet 2,000 Mg PO TIDWMEALS Hydralazine Hcl 100 Mg Tablet 100 Mg PO TID LAST DOSE: 02/24/16 AFTERNOON NEXT DOSE: 02/24/16 BEDTIME Amlodipine Besylate 10 Mg Tablet 10 Mg PO BID LAST DOSE: 02/24/16 AM NEXT DOSE: 02/25/16 AM Xanax (Alprazolam) 0.5 Mg Tablet 0.5 Mg PO Q6HRS PRN LAST DOSE: 02/23/16 BEDTIME NEXT DOSE: 02/24/16 BEDTIME Losartan Potassium 100 Mg Tablet 100 Mg PO HS LAST DOSE: 02/23/16 BEDTIME NEXT DOSE: 02/24/16 BEDTIME Metoprolol Tartrate 100 Mg Tablet 100 Mg PO BID LAST DOSE: 02/24/16 AM NEXT DOSE: 02/24/16 BEDTIME Lillian Chewable (Aspirin) 81 Mg Tab.chew 324 Mg PO DAILY LAST DOSE: 02/24/16 AM NEXT DOSE: 02/25/16 AM Allergies Allergies: Coded Allergies: No Known Drug Allergies (Unverified , 01/02/17) Physical Exam Vital Signs Vital Signs Date Time Temp Pulse Resp B/P Pulse Ox O2 Delivery O2 Flow Rate FiO2 01/02/17 11:24 56 10 98 Room Air 01/02/17 09:26 98.0 120/58 98.0 Lungs: Clear to auscultation Heart: Regular rate Psych/Mental Status: Mental status NL 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 Recurrent rt calf claudication. Nonpalpable rt ankle/foot pulses. Recurrent stenosis/occlusion rt SFA-POP stents. Problems: Plan Plan Diagnostic right lower extremity arteriogram with possible intervention NATALIA OLSEN MD Jan 02, 2017 11:43
--- NOTE | 2017-01-02 12:18 | PDOC ---
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 Recurrent rt calf claudication. Probable restenosis/occlusion within multiple right SFA-POP stents. Post-Procedure Diagnosis Post-Procedure Diagnosis Same. Mod to high grade stenosis at rt profunda origin. Long segment chronic occlusion thruout previously stented right SFA-POP segment. Pop reconstituted above patella. Dominant AT distal r/o. Focal severe stenosis at distal TPT, extending to peroneal and PT origins. Peroneal otherwise widely patent thru ankle, with collateral perfusion to plantar distribution at hindfoot. Diffusely tiny PT occluded distally. Procedure Performed Procedure Performed Selective rt lower extremity angio. Failed attempts to cross chronically occluded rt SFA-POP stents. Type of Anesthesia Type of Anesthesia Local + Mod sedation Estimated Blood Loss EBL: 50 cc Condition of Patient Condition of Patient Stable. No apparent complication. Disposition Disposition Home from [facility] post recovery, if no problems. F/U with Dr Muir at his office for consideration of rt leg bypass graft, with profundoplasty. Continue daily Plavix. Full report to follow. NATALIA OLSEN MD Jan 02, 2017 12:18
[2017-01-02] MEDS ORDERED: HEPARIN PF 500 UNIT/5 ML DISP.SYRIN. IV ONE (14:00)
--- NOTE | 2017-01-02 17:06 | RAD ---
Selective right lower extremity arteriogram Unsuccessful attempted right SFA-popliteal arterial intervention Indication: 61-year-old male smoker with hypertension, coronary artery disease, and end-stage renal disease, and angiographically proven PAD. He has multiple right SFA-popliteal stents, and is status post balloon angioplasty for in-stent restenosis in 2013. He now has recurrent right calf claudication and nonpalpable right ankle/foot pulses, consistent with recurrent right SFA-popliteal in-stent occlusive disease. Diagnostic angiography, with possible intervention, has been requested. Fluoroscopy time: 19.1 minutes Kerma-area Product: 76 Gycm2 Contrast material: 106 cc Visipaque 320 Anesthesia: 77 minutes moderate sedation was provided utilizing a total of 2 mg Versed and 100 mcg fentanyl, IV. The patient was appropriately monitored by a qualified independent observer throughout the time of moderate sedation. Consent: The procedure was explained in its entirety to the patient and/or the patient's designated traffic representative by a member of the treatment team. This included a discussion of risks and benefits and commonly accepted alternatives to the procedure, as well as expected consequences of no treatment at all. Discussion of risks included, but was not limited to, those that are most frequent and those that are rare, but possibly severe or life-threatening, as well as the possibility of unforeseen complications. Sterility: All elements of maximal sterile barrier technique were utilized, including cap, mask, sterile gown, sterile gloves, large sterile sheet, appropriate hand hygiene, and 2% chlorhexidine for cutaneous antisepsis. Procedure: Informed consent was obtained from the patient. He was placed supine on the angiography table. Preliminary ultrasound examination of left groin revealed wide patency of left common femoral artery, which was documented with a single hard copy ultrasound image. Left groin was then prepped and draped in the usual sterile fashion, utilizing all elements of maximal sterile barrier technique, as described above. Moderate sedation was provided with IV Versed and fentanyl. Using aseptic technique, local anesthesia, direct ultrasound guidance, and the micropuncture system, a 5 Faroese left common femoral artery sheath was successfully introduced. Right lower extremity arteriogram: A 5 Faroese Omni Flush catheter was advanced through the left groin sheath and was then successfully directed across aortic bifurcation over a Glidewire into contralateral right common femoral artery. Visipaque was injected and DSA images were obtained over right groin in the MILLER projection. Additional Visipaque was injected and digital angiographic images were obtained from distal right thigh through right foot. Findings: Atherosclerotic plaquing is identified within mid-distal right common femoral artery, without high-grade lesion. Note is made of moderate to high-grade stenosis at origin of right deep femoral artery, which is otherwise widely patent. Proximal 8 to 10 cm of right SFA is diffusely and severely diseased. Previously placed metallic stents commence at mid right SFA, and extend through right popliteal artery approximately 3 cm above patella. There is abrupt, complete, chronic occlusion of right SFA stents. Right popliteal artery is reconstituted just below the proximal popliteal artery stent. Retrograde opacification of the proximal popliteal artery stent revealed significant in-stent restenosis. The reconstituted mid-distal right popliteal artery shows mild to moderate atherosclerotic plaquing, without flow-limiting lesion. Dominant right lower extremity distal runoff is via anterior tibial artery, which is widely patent from origin through dorsalis pedis artery at mid foot. Most distal right tibial peroneal trunk shows focal, severe stenosis, extending to origins of peroneal artery and posterior tibial artery. Peroneal artery is otherwise widely patent through ankle, and provides collateral perfusion to plantar vessels at hindfoot. Posterior tibial artery is diffusely tiny throughout its length and is occluded at distal calf. Unsuccessful attempted percutaneous recanalization of right SFA-popliteal segment: Due to this patient's recurrent right calf claudication, the decision was made to attempt endovascular intervention. The Omni Flush catheter, previously positioned within right common femoral artery, was removed over a Poxelumo advantage guidewire, which was positioned with its tip within the diffusely diseased proximal right SFA segment. The 5 Faroese left groin sheath was exchanged over the advantage wire for a 7 Faroese Yrn sheath, which was directed across aortic bifurcation into contralateral right common femoral artery. A 0.035 inch quick cross catheter was then advanced through the Yrn sheath over the advantage wire across the diffusely diseased proximal right SFA segment. Subsequently, multiple unsuccessful attempts were made to cross the chronically occluded right SFA stents with this quick cross catheter, in conjunction with Terumo advantage guidewire and and road runner guidewire. The 0.035 inch quick cross catheter was then exchanged over the Terumo advantage guidewire for a 5 Faroese Tasty[employer] crossover guiding catheter, which was advanced through the diffusely diseased proximal right SFA segment to lie just proximal to the chronically occluded SFA stents. A 0.018 inch quick cross catheter advanced through the guiding catheter over an Astato guidewire could not be advanced through the chronically occluded stents. Similarly, a 0.014 inch quick cross catheter advanced through the guiding catheter could not be advanced across the chronically occluded stents over the Astato guidewire. At this point, further attempts at endovascular recanalization were abandoned. Patient tolerated the procedures well without apparent complication. Hemostasis was achieved at the left groin puncture site utilizing the Mynx closure system. Impression: 1. Moderate to high-grade stenosis lies at origin of right deep femoral artery. 2. Severe proximal right SFA recurrent stenosis, followed by marked, recurrent chronic occlusive disease throughout previously stented mid right SFA through proximal popliteal artery segment. Despite multiple attempts, endovascular recanalization of right SFA-popliteal segment could not be successfully performed. 3. Reconstituted mid--distal right popliteal artery shows no hemodynamically significant lesion. 4. Dominant right lower extremity distal runoff is via widely patent anterior tibial artery. 5. High-grade stenosis within most distal tibioperoneal trunk extends to origin of right peroneal artery, which is otherwise widely patent through distal calf, and provides collateral perfusion to plantar distribution at hindfoot. 6. Posterior tibial artery shows high-grade origin stenosis, is diffusely and severely attenuated, and is occluded at distal calf. 7. Follow-up with vascular surgery has been arranged, for consideration of possible right lower extremity bypass graft, with profundoplasty.
== END 2017-01-02 14:00 | disposition home or self-care (01) ==
LOC: INTRAD 08:24
PROVIDERS: ATTEND Radiology Vascular & Interventional Radiology
DX: I70.201 Unspecified atherosclerosis of native arteries of extremities, right leg (principal); I73.9 Peripheral vascular disease, unspecified; I12.0 Hypertensive chronic kidney disease with stage 5 chronic kidney disease or end stage renal disease; N18.6 End stage renal disease; E78.00 Pure hypercholesterolemia, unspecified; J44.9 Chronic obstructive pulmonary disease, unspecified; F41.9 Anxiety disorder, unspecified; F32.9 Major depressive disorder, single episode, unspecified; M19.90 Unspecified osteoarthritis, unspecified site; Z98.42 Cataract extraction status, left eye; Z98.41 Cataract extraction status, right eye
CPT/HCPCS: 36245; 36415; 75710; 75774; 76937; 80048; 85027; 85610; C1713; C1760; C1769; C1892; C1894; G0269; J2250; J3010

== ENCOUNTER 2017-01-28 22:01 | Inpatient (IN) | payer MEDICARE ==
[~2017-01-28] VITALS: Ht 170.2 cm; Wt 79.4 kg
[~2017-01-28 22:01] MED LIST changes: +FOLI0.8T3 PO; -PARO20TA2 PO; +PARO20TA3 PO
--- NOTE | 2017-01-28 23:09 | PHYS DOC ---
Past Medical History Past Medical History: Hypertension, LA, Pancreatitis, Renal Disease, Renal Failure Additional Past Medical Histor: Ulcers, Cardiac Stent, polycystic disease, dialysis Past Surgical History: Appendectomy, Cholecystectomy, Other Additional Past Surgical Histo: Dialysis shunt L) arm. cardiac stent, lens implants Alcohol Use: Sober Drug Use: None Adult General Chief Complaint Chief Complaint: FLANK PAIN HPI HPI 61-year-old male with a history of polycystic kidney disease with chronic right flank pain and a history of pancreatitis who is on dialysis presents with worsening pain in his right flank. I saw the patient at [facility] last night treated his pain and anxiety and let him go home. Today he states the pain is not been any better. He denies any fever chills or sweats. He has had some nausea but no vomiting. He has eaten today without difficulty. He denies melena or hematemesis. [] Review of Systems Review of Systems Constitutional: Denies fever or chills [] Eyes: Denies change in visual acuity, redness, or eye pain [] HENT: Denies nasal congestion or sore throat [] Respiratory: Denies cough or shortness of breath [] Cardiovascular: No additional information not addressed in HPI [] GI: Denies abdominal pain, nausea, vomiting, bloody stools or diarrhea [] : Denies dysuria or hematuria [] Musculoskeletal: Denies back pain or joint pain [] Integument: Denies rash or skin lesions [] Neurologic: Denies headache, focal weakness or sensory changes [] Endocrine: Denies polyuria or polydipsia [] Current Medications Current Medications Current Medications Medications (Trade) Dose Ordered Sig/Cirilo Start Time Stop Time Status Last Admin Dose Admin Diphenhydramine HCl (Benadryl) 50 mg STK-MED ONCE 01/29/17 00:26 01/29/17 00:27 DC Hydromorphone HCl (Dilaudid) 1 mg 1X ONCE 01/28/17 23:30 01/28/17 23:31 DC 01/28/17 23:57 1 MG Morphine Sulfate 4 mg 1X ONCE 01/29/17 02:15 01/29/17 02:16 UNV Ondansetron HCl 4 mg 4 mg 1X ONCE 01/28/17 23:30 01/28/17 23:31 DC 01/28/17 23:57 4 MG Sodium Chloride (Iv Sodium Chloride 0.9% 500ml Bag) 500 ml @ 0 mls/hr 1X ONCE 01/28/17 23:30 01/28/17 23:31 DC 01/28/17 23:39 999 MLS/HR Allergies Allergies Allergies Coded Allergies Type Severity Reaction Last Updated Verified No Known Drug Allergies 01/02/17 No Physical Exam Physical Exam Constitutional: Well developed, well nourished, moderate distress, non-toxic appearance. [] HENT: Normocephalic, atraumatic, bilateral external ears normal, oropharynx moist, no oral exudates, nose normal. [] Eyes: PERRLA, EOMI, conjunctiva normal, no discharge. [] Neck: Normal range of motion, no tenderness, supple, no stridor. [] Cardiovascular:Heart rate regular rhythm, no murmur [] Lungs & Thorax: Bilateral breath sounds clear to auscultation [] Abdomen: Bowel sounds normal, soft, no tenderness, no masses, no pulsatile masses. [] Skin: Warm, dry, no erythema, no rash. [] Back: No tenderness, no CVA tenderness. [] Extremities: Dialysis fistula left forearm good thrill. [] Neurologic: Alert and oriented X 3, normal motor function, normal sensory function, no focal deficits noted. [] Psychologic: Affect normal, judgement normal, mood normal. [] Current Patient Data Vital Signs Vital Signs Date Time Temp Pulse Resp B/P Pulse Ox O2 Delivery O2 Flow Rate FiO2 01/29/17 00:15 70 20 174/83 97 Room Air 01/28/17 22:41 97.6 97.6 Lab Values Laboratory Tests Test 01/28/17 23:40 White Blood Count 8.9x10^3/uL (4.0-11.0) Red Blood Count 3.17x10^6/uL (4.30-5.70) L Hemoglobin 9.9g/dL (13.0-17.5) L Hematocrit 29.3% (39.0-53.0) L Mean Corpuscular Volume 93fL (79-100) Mean Corpuscular Hemoglobin 31pg (25-35) Mean Corpuscular Hemoglobin Concent 34g/dL (31-37) Red Cell Distribution Width 13.7% (11.5-14.5) Platelet Count 178x10^3/uL (140-400) Neutrophils (%) (Auto) 77% (31-73) H Lymphocytes (%) (Auto) 13% (24-48) L Monocytes (%) (Auto) 7% (0-9) Eosinophils (%) (Auto) 2% (0-3) Basophils (%) (Auto) 1% (0-3) Neutrophils # (Auto) 6.9x10^3uL (1.8-7.7) Lymphocytes # (Auto) 1.2x10^3/uL (1.0-4.8) Monocytes # (Auto) 0.7x10^3/uL (0.0-1.1) Eosinophils # (Auto) 0.2x10^3/uL (0.0-0.7) Basophils # (Auto) 0.1x10^3/uL (0.0-0.2) Sodium Level 143mmol/L (136-145) Potassium Level 4.9mmol/L (3.5-5.1) Chloride Level 101mmol/L (98-107) Carbon Dioxide Level 22mmol/L (21-32) Anion Gap 20 (6-14) H Blood Urea Nitrogen 114mg/dL (8-26) H Creatinine 13.4mg/dL (0.7-1.3) H Estimated GFR (Cockcroft-Gault) 3.8 BUN/Creatinine Ratio 9 (6-20) Glucose Level 149mg/dL (70-99) H Calcium Level 6.7mg/dL (8.5-10.1) L Total Bilirubin 0.3mg/dL (0.2-1.0) Aspartate Amino Transferase (AST) 16U/L (15-37) Alanine Aminotransferase (ALT) 14U/L (16-63) L Alkaline Phosphatase 74U/L (46-116) Troponin I Quantitative 0.048ng/mL (0.000-0.055) Total Protein 6.8g/dL (6.4-8.2) Albumin 3.1g/dL (3.4-5.0) L Albumin/Globulin Ratio 0.8 (1.0-1.7) L Lipase 736U/L (73-393) H Laboratory Tests 01/28/17 23:40 Laboratory Tests 01/28/17 23:40 EKG EKG [] Radiology/Procedures Radiology/Procedures CT A/P: Impression: Stable CT abdomen and pelvis when compared with exam from May 2015. No acute feature is detected. Course & Med Decision Making Course & Med Decision Making Pertinent Labs and Imaging studies reviewed. (See chart for details) [ED course: Evaluation reveals 61-year-old male in mild to moderate distress secondary to flank pain. He was given pain medication and IV fluids during his stay in the department which did help alleviate his symptoms. Laboratory studies were pending at the time of this dictations turned over his care to Dr. Jaz Raman who will follow-up on laboratory studies and final disposition.] Patient care assumed from Dr. De Jesus. Imaging results as above. Labs notable for elevated lipase. Discussed results with patient, who continues to have significant pain. Will admit under the care of Dr. Giles for further evaluation and treatment. Dragon Disclaimer Dragon Disclaimer This electronic medical record was generated, in whole or in part, using a voice recognition dictation system. Departure Departure Impression: Primary Impression: Flank pain Additional Impression: Pancreatitis Disposition: ADMITTED INPATIENT Admitting Physician: Chi Giles Condition: STABLE Referrals: TRACY POLANCO MD (PCP) Problem Qualifiers GARETT DE JESUS DO Jan 28, 2017 23:08 JAZ RAMAN MD Jan 29, 2017 02:16
[2017-01-28] MEDS ORDERED: IV NORMAL SALINE 500ML BAG 500 ML IV ONE (23:30)
[2017-01-28] MEDS ORDERED: ONDANSETRON PF 4 MG/2 ML VIAL. IV ONE (23:30)
[2017-01-28] MEDS ORDERED: HYDROMORPHONE 2 MG/ML VIAL. IV ONE (23:30)
[2017-01-28 23:47] LABS: BASO # 0.1 x10^3/uL (0.0-0.2); BASO % 1 % (0-3); EOS % 2 % (0-3); HEMATOCRIT 29.3 % (39.0-53.0); HEMOGLOBIN 9.9 g/dL (13.0-17.5); LYMPH # 1.2 x10^3/uL (1.0-4.8); LYMPH % 13 % (24-48); MEAN CORPUSCULAR HEMOGLOBIN 31 pg (25-35); MEAN CORPUSCULAR HGB CONC 34 g/dL (31-37); MEAN CORPUSCULAR VOLUME 93 fL (79-100); MONO % 7 % (0-9); NEUT % 77 % (31-73); PLATELET COUNT 178 x10^3/uL (140-400); RED BLOOD COUNT 3.17 x10^6/uL (4.30-5.70); RED CELL DISTRIBUTION WIDTH 13.7 % (11.5-14.5); WHITE BLOOD COUNT 8.9 x10^3/uL (4.0-11.0)
[2017-01-28 23:59] LABS: CALCIUM 6.7 mg/dL (8.5-10.1); CREATININE 13.4 mg/dL (0.7-1.3); GFR 3.8; POTASSIUM 4.9 mmol/L (3.5-5.1)
[2017-01-29] VITALS (10 sets, daily range): BP systolic 90–179; BP diastolic 54–90
--- NOTE | 2017-01-29 00:03 | RAD ---
CT abdomen and pelvis without contrast Indication: Right-sided flank pain. Patient's history polycystic kidneys and pancreatitis. Axial imaging through the abdomen and pelvis was performed without contrast. PQRS STATEMENT One or more of the following individualized dose reduction techniques were utilized for this study: 1.Automated exposure control. 2.Adjustment of the mA and/orkVaccording to patient size. 3.Use of iterative reconstruction technique. Comparison is made with prior CT from 05/20/2015. The lung bases are clear. No discrete liver mass is detected. The gallbladder is surgically absent. The pancreas and spleen are unremarkable. No adrenal mass is identified. Findings consistent with autosomal dominant polycystic kidney disease is again noted. Multiple calcifications are identified bilaterally consistent with nonobstructing calculi. No definite hydronephrosis is seen. The ureters are not dilated. Aorta is calcified but not aneurysmal. The small and large bowel loops are normal caliber. There is no ascites. No definite acute inflammatory process is detected. Impression: Stable CT abdomen and pelvis when compared with exam from May 2015. No acute feature is detected. Electronically signed by: Layton Virgen MD (Jan 29, 2017 00:01:51)
[2017-01-29] MEDS ORDERED: DIPHENHYDRAMINE 50 MG/ML VIAL ONE (00:26)
[2017-01-29] MEDS ORDERED: DIPHENHYDRAMINE 50 MG/ML VIAL IVP ONE (00:30)
[2017-01-29 01:41] LABS: ALBUMIN 3.1 g/dL (3.4-5.0); ALBUMIN/GLOBULIN RATIO 0.8 (1.0-1.7); TOTAL BILIRUBIN 0.3 mg/dL (0.2-1.0); TOTAL PROTEIN 6.8 g/dL (6.4-8.2)
[2017-01-29] MEDS ORDERED: MORPHINE SULFATE 4 MG/ML DISP.SYRIN. IV ONE (02:15)
[2017-01-29] MEDS: IV NORMAL SALINE 1000ML BAG 1,000 ML IV SCH (02:54)
[2017-01-29] MEDS ORDERED: ONDANSETRON PF 4 MG/2 ML VIAL. IV PRN ×2 (03:00→18:45)
[2017-01-29] MEDS ORDERED: HYDR-2666 PO (03:40)
--- NOTE | 2017-01-29 04:54 | ACF ---
Admission Forms Criteria PANCREATITIS Clinical Indications for Admission to Inpatient Care (Place 'X' for any and all applicable criteria): Admission is indicated for ANY ONE of the following (1)(2)(3)(4): [ ]I. Acute pancreatitis[A] as indicated by 2 or more of the following: [ ]a) Abdominal pain (eg, epigastric, left upper quadrant) [ ]b) Serum amylase or serum lipase greater than 3 times the upper limit of normal [ ]c) Characteristic findings from abdominal imaging (eg, pancreatic inflammation, pancreatic necrosis, peripancreatic fluid collection)[B] [X]II. Pancreatitis (acute or chronic ) requiring inpatient care as indicated by 1 or more of the following : [ ]a) Inability to maintain oral hydration Hypoxemia [ ]b) Evidence of infection (eg, fever, peripancreatic abscess) [X]c) Severe pain requiring acute inpatient management [ ]d) Hemodynamic instability [ ]e) Hypoxemia [ ]f) Acute renal failure [ ]g) Severe electrolyte abnormalities Extended stay beyond goal length of stay may be needed for (1)(11) [ ]a) Severe acute pancreatitis (10)(19) [ ]b) Persistent symptoms, ascites, or pleural effusion [ ]c) Abdominal compartment syndrome (10) [ ]d) Late complications [ ]e) Acute renal failure (27) [ ]f) Gallstones in gallbladder The original [employer] content created by [employer] has been revised. The portions of the content which have been revised are identified through the use of italic text or in bold,and [facility] has neither reviewed nor approved the modified material.All other unmodified content is copyright [employer] [email or web address]. Please see references footnoted in the original [facility] [email or web address] edition 2016 Admission Criteria Met?: Yes EAMON CARROLL Jan 29, 2017 04:54
--- NOTE | 2017-01-29 07:09 | EKG ---
[facility] [address] [place] [address] Test Date: 2017-01-28 Test Time: 23:20:17 Pat Name: IVORY OCONNOR Department: Room: 567 1 Gender: Male Winemaker: IQRA : 1955 Requested By: GARETT SMITH Order Number: [id number] Reading MD: Leyla Jackson Measurements Intervals [place] Rate: 73 P: 51 MO: 144 QRS: 36 QRSD: 100 T: 103 QT: 456 QTc: 507 Interpretive Statements SINUS RHYTHM MISSING LEAD V4 LEFT ATRIAL ABNORMALITY Electronically Signed On 01-30-2017 21:05:25 CDT by Leyla Jackson
[2017-01-29] MEDS: MORPHINE SULFATE 4 MG/ML DISP.SYRIN. IV PRN ×2 (08:00→09:59)
[2017-01-29] MEDS ORDERED: HYDROCODONE/APAP 5/325MG TABLET. PO PRN (11:30)
[2017-01-29] MEDS: CALCIUM CARBONATE 500 MG TAB.CHEW PO SCH ×2 (11:30→16:30)
--- NOTE | 2017-01-29 11:37 | PDOC2 ---
CONSULT Date of Consult Date of Consult DATE: 01/29/17 TIME: 11:34 Reason for Consult Reason for Consult: ESRD Referring Physician Referring Physician: ROBINA Identification/Chief Complaint Chief Complaint ABD PAIN Source Source: Chart review History of Present Illness Reason for Visit: THIS IS A 61 YR OLD ADMITTED WITH ABD PAIN AND PANCREATITIS. HX IS NOTABLE FOR ESRD AND HE IS ON HD ON TTS AT [facility]. LAST HD WAS SAT. LABS ARE C/ W ESRD STATUS Past Medical History Cardiovascular: CAD, HTN, [place] Pulmonary: Other GI: Constipation, GERD, Other Heme/Onc: Anemia NOS Psych: Depression Renal/: Chronic renal failure, Other Endocrine: Hyperparathyroidism Past Surgical History Past Surgical History: Appendectomy, Cholecystectomy, Other Family History Family History: Cancer, Diabetes, Kidney Disease, Stroke Social History ALCOHOL: none Drugs: None Lives: with Family Domestic Violence: Neg Current Problem List Problem List Problems Medical Problems: (1) Flank pain Status: Acute (2) Pancreatitis Status: Acute Current Medications Current Medications Current Medications Hydromorphone HCl (Dilaudid) 1 mg 1X ONCE IV Last administered on 01/28/17 23 :57; Start 01/28/17 at 23:30; Stop 01/28/17 at 23:31; Status DC Ondansetron HCl 4 mg 4 mg 1X ONCE IV Last administered on 01/28/17 23:57; Start 01/28/17 at 23:30; Stop 01/28/17 at 23:31; Status DC Sodium Chloride (Iv Sodium Chloride 0.9% 500ml Bag) 500 ml @ 0 mls/hr 1X ONCE IV Last administered on 01/28/17 23:39; Start 01/28/17 at 23:30; Stop at 23:31; Status DC Diphenhydramine HCl (Benadryl) 50 mg 1X ONCE IVP Last administered on 00:29; Start 01/29/17 at 00:30; Stop 01/29/17 at 00:31; Status DC Diphenhydramine HCl (Benadryl) 50 mg STK-MED ONCE .ROUTE ; Start 01/29/17 at 00: 26; Stop 01/29/17 at 00:27; Status DC Morphine Sulfate 4 mg 1X ONCE IV Last administered on 01/29/17 03:55; Start 01/29/17 at 02:15; Stop 01/29/17 at 02:16; Status DC Ondansetron HCl (Zofran) 4 mg PRN Q8HRS PRN IV NAUSEA/VOMITING; Start 01/29/17 at 03:00; Stop 01/30/17 at 02:59 Morphine Sulfate 4 mg 4 mg PRN Q2HR PRN IV PAIN Last administered on 01/29/17t 09:59; Start 01/29/17 at 03:00; Stop 01/30/17 at 02:59 Sodium Chloride (Iv Sodium Chloride 0.9% 1000ml Bag) 1,000 ml @ 50 mls/hr Q20H IV Last administered on 01/29/17t 02:54; Start 01/29/17 at 02:12; Stop at 02:11 Alprazolam (Xanax) 0.5 mg Q6HRS PRN PO ANXIETY / AGITATION; Start 01/29/17 at 11:30; Status UNV Amlodipine Besylate (Norvasc) 10 mg BID PO ; Start 01/29/17 at 21:00; Status UNV Aspirin (Children'S Aspirin) 324 mg DAILY PO ; Start 01/30/17 at 09:00; Status UNV Calcium Carbonate/ Glycine (Tums) 800 mg TIDAC PO ; Start 01/29/17 at 11:30; Status UNV Clonidine HCl (Catapres) 0.3 mg DAILY PO ; Start 01/30/17 at 09:00; Status UNV Clopidogrel Bisulfate (Plavix) 75 mg DAILY PO ; Start 01/30/17 at 09:00; Status UNV Vitamin B Complex/ Vitamin C (Nephro-Chilo) 1 tab DAILY PO ; Start 01/30/17 at 09 :00; Status UNV Furosemide (Lasix) 80 mg BID PO ; Start 01/29/17 at 21:00; Status UNV Acetaminophen/ Hydrocodone Bitart (Lortab 5/325) 1 tab PRN Q6HRS PRN PO PAIN; Start 01/29/17 at 11:30; Status UNV Isosorbide Mononitrate (Imdur) 30 mg DAILY PO ; Start 01/30/17 at 09:00; Status UNV Paroxetine HCl (Paxil) 40 mg DAILY PO ; Start 01/30/17 at 09:00; Status UNV Tamsulosin HCl (Flomax) 0.4 mg QHS PO ; Start 01/29/17 at 21:00; Status UNV Non-Formulary Medication 100 mg TID PO HTN; Start 01/29/17 at 14:00; Status UNV Non-Formulary Medication 100 mg HS PO HTN; Start 01/29/17 at 21:00; Status UNV Non-Formulary Medication 100 mg BID PO Heart; Start 01/29/17 at 21:00; Status UNV Non-Formulary Medication 20 mg DAILY PO ; Start 01/30/17 at 09:00; Status UNV Active Scripts Active Clopidogrel (Clopidogrel Bisulfate) 75 Mg Tablet 1 Tab PO DAILY Isosorbide Mononitrate Er (Isosorbide Mononitrate) 30 Mg Tab.er.24h 30 Mg PO DAILY Flomax (Tamsulosin Hcl) 0.4 Mg Cap.er.24h 0.4 Mg PO QHS Reported Hydrocodone-Apap 5-325 (Hydrocodone Bit/Acetaminophen) 1 Each Tablet 1 Tab PO PRN Q6HRS PRN Furosemide 80 Mg Tablet 1 Tab PO BID Nephro-Chilo Tablet (Folic Acid/Vitamin B Comp W-C) 0.8 Mg Tablet 1 Tab PO DAILY Paroxetine Hcl 20 Mg Tablet 40 Mg PO DAILY Tums (Calcium Carbonate) 200 Mg Tab.chew 800 Mg PO TIDAC Omeprazole Magnesium 20 Mg Capsule.dr 20 Mg PO DAILY Clonidine Hcl 0.3 Mg Tablet 1 Tab PO DAILY Hydralazine Hcl 100 Mg Tablet 100 Mg PO TID LAST DOSE: 02/24/16 AFTERNOON NEXT DOSE: 02/24/16 BEDTIME Amlodipine Besylate 10 Mg Tablet 10 Mg PO BID LAST DOSE: 02/24/16 AM NEXT DOSE: 02/25/16 AM Xanax (Alprazolam) 0.5 Mg Tablet 0.5 Mg PO Q6HRS PRN LAST DOSE: 02/23/16 BEDTIME NEXT DOSE: 02/24/16 BEDTIME Losartan Potassium 100 Mg Tablet 100 Mg PO HS LAST DOSE: 02/23/16 BEDTIME NEXT DOSE: 02/24/16 BEDTIME Metoprolol Tartrate 100 Mg Tablet 100 Mg PO BID LAST DOSE: 02/24/16 AM NEXT DOSE: 02/24/16 BEDTIME Lillian Chewable (Aspirin) 81 Mg Tab.chew 324 Mg PO DAILY LAST DOSE: 02/24/16 AM NEXT DOSE: 02/25/16 AM Allergies Allergies: Coded Allergies: No Known Drug Allergies (Unverified , 01/02/17) ROS General: YES: Appetite, Fatigue, Malaise PSYCHOLOGICAL ROS: YES: Anxiety Eyes: Yes Decreased vision HEENT: YES: Heacaches Hematological and Lymphatic: YES: Bleeding Problems Respiratory: YES: Cough Gastrointestinal: Yes Abdominal Pain, Yes Constipation, Yes Nausea Musculoskeletal: Yes Joint Stiffness, Yes Muscular Weakness Neurological: Yes Weakness Skin: Yes Dry Skin Physical Exam General: Alert, Oriented X3, Cooperative, No acute distress HEENT: Atraumatic, PERRLA Lungs: Clear to auscultation Heart: Regular rate, Normal S1, Normal S2 Abdomen: Normal bowel sounds Extremities: No clubbing Skin: No breakdown Neuro: Normal speech, Sensation intact Psych/Mental Status: Mental status NL, Mood NL MUSCULOSKELETAL: No swelling Vitals VITALS Vital Signs Date Time Temp Pulse Resp B/P Pulse Ox O2 Delivery O2 Flow Rate FiO2 01/29/17 11:00 95.4 73 22 167/77 96 Room Air 95.4 Labs Labs Laboratory Tests Test 01/28/17 23:40 White Blood Count 8.9x10^3/uL (4.0-11.0) Red Blood Count 3.17x10^6/uL (4.30-5.70) Hemoglobin 9.9g/dL (13.0-17.5) Hematocrit 29.3% (39.0-53.0) Mean Corpuscular Volume 93fL (79-100) Mean Corpuscular Hemoglobin 31pg (25-35) Mean Corpuscular Hemoglobin Concent 34g/dL (31-37) Red Cell Distribution Width 13.7% (11.5-14.5) Platelet Count 178x10^3/uL (140-400) Neutrophils (%) (Auto) 77% (31-73) Lymphocytes (%) (Auto) 13% (24-48) Monocytes (%) (Auto) 7% (0-9) Eosinophils (%) (Auto) 2% (0-3) Basophils (%) (Auto) 1% (0-3) Neutrophils # (Auto) 6.9x10^3uL (1.8-7.7) Lymphocytes # (Auto) 1.2x10^3/uL (1.0-4.8) Monocytes # (Auto) 0.7x10^3/uL (0.0-1.1) Eosinophils # (Auto) 0.2x10^3/uL (0.0-0.7) Basophils # (Auto) 0.1x10^3/uL (0.0-0.2) Sodium Level 143mmol/L (136-145) Potassium Level 4.9mmol/L (3.5-5.1) Chloride Level 101mmol/L (98-107) Carbon Dioxide Level 22mmol/L (21-32) Anion Gap 20 (6-14) Blood Urea Nitrogen 114mg/dL (8-26) Creatinine 13.4mg/dL (0.7-1.3) Estimated GFR (Cockcroft-Gault) 3.8 BUN/Creatinine Ratio 9 (6-20) Glucose Level 149mg/dL (70-99) Calcium Level 6.7mg/dL (8.5-10.1) Total Bilirubin 0.3mg/dL (0.2-1.0) Aspartate Amino Transf (AST/SGOT) 16U/L (15-37) Alanine Aminotransferase (ALT/SGPT) 14U/L (16-63) Alkaline Phosphatase 74U/L (46-116) Troponin I Quantitative 0.048ng/mL (0.000-0.055) Total Protein 6.8g/dL (6.4-8.2) Albumin 3.1g/dL (3.4-5.0) Albumin/Globulin Ratio 0.8 (1.0-1.7) Lipase 736U/L (73-393) Laboratory Tests Test 01/28/17 23:40 White Blood Count 8.9x10^3/uL (4.0-11.0) Red Blood Count 3.17x10^6/uL (4.30-5.70) Hemoglobin 9.9g/dL (13.0-17.5) Hematocrit 29.3% (39.0-53.0) Mean Corpuscular Volume 93fL (79-100) Mean Corpuscular Hemoglobin 31pg (25-35) Mean Corpuscular Hemoglobin Concent 34g/dL (31-37) Red Cell Distribution Width 13.7% (11.5-14.5) Platelet Count 178x10^3/uL (140-400) Neutrophils (%) (Auto) 77% (31-73) Lymphocytes (%) (Auto) 13% (24-48) Monocytes (%) (Auto) 7% (0-9) Eosinophils (%) (Auto) 2% (0-3) Basophils (%) (Auto) 1% (0-3) Neutrophils # (Auto) 6.9x10^3uL (1.8-7.7) Lymphocytes # (Auto) 1.2x10^3/uL (1.0-4.8) Monocytes # (Auto) 0.7x10^3/uL (0.0-1.1) Eosinophils # (Auto) 0.2x10^3/uL (0.0-0.7) Basophils # (Auto) 0.1x10^3/uL (0.0-0.2) Sodium Level 143mmol/L (136-145) Potassium Level 4.9mmol/L (3.5-5.1) Chloride Level 101mmol/L (98-107) Carbon Dioxide Level 22mmol/L (21-32) Anion Gap 20 (6-14) Blood Urea Nitrogen 114mg/dL (8-26) Creatinine 13.4mg/dL (0.7-1.3) Estimated GFR (Cockcroft-Gault) 3.8 BUN/Creatinine Ratio 9 (6-20) Glucose Level 149mg/dL (70-99) Calcium Level 6.7mg/dL (8.5-10.1) Total Bilirubin 0.3mg/dL (0.2-1.0) Aspartate Amino Transf (AST/SGOT) 16U/L (15-37) Alanine Aminotransferase (ALT/SGPT) 14U/L (16-63) Alkaline Phosphatase 74U/L (46-116) Troponin I Quantitative 0.048ng/mL (0.000-0.055) Total Protein 6.8g/dL (6.4-8.2) Albumin 3.1g/dL (3.4-5.0) Albumin/Globulin Ratio 0.8 (1.0-1.7) Lipase 736U/L (73-393) Assessment/Plan Assessment/Plan IMP PANCREATITIS ANEMIA ESRD PLAN HD TODAY UF TO [facility] ARANESP WILL FOLLOW JAYDE NGUYEN MD Jan 29, 2017 11:37
--- NOTE | 2017-01-29 11:43 | HP ---
ADMIT DATE: 01/29/2017 CHIEF COMPLAINT: Abdominal pain. HISTORY OF PRESENT ILLNESS: The patient is a pleasant middle-aged male who is on dialysis for quite a few years. We know him well, he is admitted multiple times. At this time, he has got abdominal pain, it appears he has pancreatitis, rates it at 10/10. He has associated nausea and anxiety. I discussed the case with the ER physician. 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 PAST MEDICAL HISTORY: Previous pancreatitis a few years ago, myocardial infarction, hypertension, end-stage renal disease on dialysis for many years, polycystic kidney disease, appendectomy, cholecystectomy, anxiety, left arm shunt and lens implant. ALLERGIES: None. FAMILY HISTORY: Diabetes. SOCIAL HISTORY: Does not drink, smoke or take drugs. MEDICATIONS: Reviewed, please refer to the MRAD. REVIEW OF SYSTEMS: GENERAL: No history of weight change, weakness or fevers. SKIN: No bruising, hair changes or rashes. EYES: No blurred, double or loss of vision. NOSE AND THROAT: No history of nosebleeds, hoarseness or sore throat. HEART: No history of palpitations, chest pain or shortness of breath on exertion. LUNGS: Denies cough, hemoptysis, wheezing or shortness of breath. GASTROINTESTINAL: Severe abdominal pain. GENITOURINARY: No history of frequency, urgency, hesitancy or nocturia. NEUROLOGIC: Denies history of numbness, tingling, tremor or weakness. PSYCHIATRIC: No history of panic, anxiety or depression. ENDOCRINE: No history of heat or cold intolerance, polyuria or polydipsia. EXTREMITIES: Denies muscle weakness, joint pain, pain on walking or stiffness. PHYSICAL EXAMINATION: VITAL SIGNS: Temperature afebrile, pulse 68, respirations 18, blood pressure 178/82. GENERAL: He is alert, complaining of pain. HEART: Normal S1, S2. LUNGS: Clear. ABDOMEN: Soft. Decreased bowel sounds, tender to touch. EXTREMITIES: No edema. SKIN: No rashes. PSYCHIATRIC: He is anxious and depressed. VASCULAR: Good capillary refill. ENDOCRINE: No thyromegaly. LYMPHATICS: No cervical nodes. HEMATOPOIETIC: No bruising. LABORATORY DATA: White count 8.9, hemoglobin 9.9, platelets 178. Electrolytes: Sodium 143, potassium 4.6, chloride 101, bicarbonate 22, BUN 114, creatinine 13.4, glucose 149. Troponin 0.048. Lipase 736. ASSESSMENT AND PLAN: Pancreatitis in a middle-aged male with above-noted comorbidities. The patient has been admitted, will consult GI, gentle IV fluids. Consult Nephrology, p.r.n. narcotics. Continue his home meds. PROGNOSIS: Guarded. YIN QUARLES DO DR: EVELIN/alyson JOB#: [id number] / [id number]
[2017-01-29] MEDS: CLOPIDOGREL BISULFATE 75 MG TABLET PO SCH (12:00)
[2017-01-29] MEDS: ISOSORBIDE MONONITRATE ER 30 MG TAB.ER.24H PO SCH (12:00)
[2017-01-29] MEDS: PAROXETINE 20 MG TABLET. PO SCH (12:00)
[2017-01-29] MEDS: FOLIC/VIT B COMP W-C (RENAL) TABLET. PO SCH (12:00)
[2017-01-29] MEDS: AMLODIPINE BESYLATE 10 MG TABLET PO SCH ×2 (12:00→21:00)
[2017-01-29] MEDS: PANTOPRAZOLE 40 MG TABLET. PO SCH (12:00)
[2017-01-29] MEDS: METOPROLOL TART IMMED RELEASE 50 MG TABLET PO SCH ×2 (12:00→21:00)
[2017-01-29] MEDS: ASPIRIN 81 MG TAB.CHEW PO SCH (12:00)
[2017-01-29] MEDS: MORPHINE SULFATE 10 MG/ML VIAL. IV PRN ×4 (12:17→17:26)
[2017-01-29] MEDS: ALPRAZOLAM 0.5 MG TABLET PO PRN ×2 (12:31→20:27)
[2017-01-29] MEDS ORDERED: IV NORMAL SALINE 1000ML BAG 1,000 ML IV PRN (12:55)
[2017-01-29] MEDS ORDERED: DIALYSIS PATIENT. MC PRN ×2 (13:00)
[2017-01-29] MEDS ORDERED: DIPHENHYDRAMINE 50 MG/ML VIAL IV PRN (13:00)
[2017-01-29] MEDS: DIPHENHYDRAMINE 50 MG/ML VIAL IV PRN ×2 (13:06→19:12)
--- NOTE | 2017-01-29 13:14 | PDOC2 ---
GI CONSULT Reason For Consult: Pancreatitis HPI: HPI: 61 y/o male well-known to GI service. Admitted through ER for abd pain. Labs notable for normal WBC, Hgb 9.9, lipase 726, Cr 13.4. CT w/o contrast unrevealing. He reports epigastric and RUQ pain began last Saturday. He felt a little better after dialysis, but worse on Saturday after eating. Pain feels similar to pancreatitis. No n/v or diarrhea, but not much appetite. Tolerating clear liquids. Pain improved w/ morphine. PMH significant for recurrent pancreatitis s/p cholecystectomy w/ h/o alcohol use, PUD, GERD (always on PPI here, only takes Tums at home), microscopic/ lymphocytic colitis (previously on sulfasalazine, says he needs a refill). Prior workup: EGD 2014: mild gastritis and duodenitis. Colonoscopy 06/2016: internal hemorrhoids and random colon biopsies w/ microscopic/lymphocytic colitis. MRCP 11/2014: unremarkable. Labs 02/2016: CA19-9, IgG4, lipid profile WNL. CTA chest/abd/pelvis 10/2016: thoracic aorta shows mild calcification, moderately calcific abdominal aorta, moderately calcific common iliac arteries, bilaterally patent hypogastric arteries, external iliac arteries and common femoral arteries are small in caliber with moderate calcification, proximal segments of superficial femoral arteries show diffuse severe atherosclerotic involvement (right > left). (Additional imaging below). PMH: PMH: per HPI plus ESRD on dialysis, PA, CAD s/p stents, PVD s/p stents (Plavix, ASA) , HTN, RIC, appendectomy, bladder cancer, arthritis, hyperparathyroidism, depression/anxiety, anemia, peripheral neuropathy, PUD, A Fib, BPH, pneumonia, port placement/re-placement FH: Family History: Cancer, CAD, CVA, DM Social History: ALCOHOL: none Drugs: None ROS: GEN: Denies fevers, chills, sweats HEENT: Denies blurred vision, sore throat CV: Denies chest pain RESP: Denies shortness of air, cough GI: Per HPI : Denies hematuria, dysuria ENDO: Denies weight changes NEURO: Denies confusion, dizziness MSK: Denies weakness, joint pain/swelling SKIN: Denies jaundice, pruritus VItals: Vitals: Vital Signs Date Time Temp Pulse Resp B/P Pulse Ox O2 Delivery O2 Flow Rate FiO2 01/29/17 12:17 Room Air 01/29/17 11:00 95.4 73 22 167/77 96 95.4 Labs: Labs: Laboratory Tests Test 01/28/17 23:40 White Blood Count 8.9x10^3/uL (4.0-11.0) Red Blood Count 3.17x10^6/uL (4.30-5.70) Hemoglobin 9.9g/dL (13.0-17.5) Hematocrit 29.3% (39.0-53.0) Mean Corpuscular Volume 93fL (79-100) Mean Corpuscular Hemoglobin 31pg (25-35) Mean Corpuscular Hemoglobin Concent 34g/dL (31-37) Red Cell Distribution Width 13.7% (11.5-14.5) Platelet Count 178x10^3/uL (140-400) Neutrophils (%) (Auto) 77% (31-73) Lymphocytes (%) (Auto) 13% (24-48) Monocytes (%) (Auto) 7% (0-9) Eosinophils (%) (Auto) 2% (0-3) Basophils (%) (Auto) 1% (0-3) Neutrophils # (Auto) 6.9x10^3uL (1.8-7.7) Lymphocytes # (Auto) 1.2x10^3/uL (1.0-4.8) Monocytes # (Auto) 0.7x10^3/uL (0.0-1.1) Eosinophils # (Auto) 0.2x10^3/uL (0.0-0.7) Basophils # (Auto) 0.1x10^3/uL (0.0-0.2) Sodium Level 143mmol/L (136-145) Potassium Level 4.9mmol/L (3.5-5.1) Chloride Level 101mmol/L (98-107) Carbon Dioxide Level 22mmol/L (21-32) Anion Gap 20 (6-14) Blood Urea Nitrogen 114mg/dL (8-26) Creatinine 13.4mg/dL (0.7-1.3) Estimated GFR (Cockcroft-Gault) 3.8 BUN/Creatinine Ratio 9 (6-20) Glucose Level 149mg/dL (70-99) Calcium Level 6.7mg/dL (8.5-10.1) Total Bilirubin 0.3mg/dL (0.2-1.0) Aspartate Amino Transf (AST/SGOT) 16U/L (15-37) Alanine Aminotransferase (ALT/SGPT) 14U/L (16-63) Alkaline Phosphatase 74U/L (46-116) Troponin I Quantitative 0.048ng/mL (0.000-0.055) Total Protein 6.8g/dL (6.4-8.2) Albumin 3.1g/dL (3.4-5.0) Albumin/Globulin Ratio 0.8 (1.0-1.7) Lipase 736U/L (73-393) Allergies: Coded Allergies: No Known Drug Allergies (Unverified , 01/02/17) Medications: Current Medications Medications (Trade) Dose Ordered Sig/Cirilo Route PRN Reason Start Time Stop Time Status Last Admin Dose Admin Hydromorphone HCl (Dilaudid) 1 mg 1X ONCE IV 01/28/17 23:30 01/28/17 23:31 DC 01/28/17 23:57 Ondansetron HCl 4 mg 4 mg 1X ONCE IV 01/28/17 23:30 01/28/17 23:31 DC 01/28/17 23:57 Sodium Chloride (Iv Sodium Chloride 0.9% 500ml Bag) 500 ml @ 0 mls/hr 1X ONCE IV 01/28/17 23:30 01/28/17 23:31 DC 01/28/17 23:39 Diphenhydramine HCl (Benadryl) 50 mg 1X ONCE IVP 01/29/17 00:30 01/29/17 00:31 DC 01/29/17 00:29 Morphine Sulfate 4 mg 1X ONCE IV 01/29/17 02:15 01/29/17 02:16 DC 01/29/17 03:55 Morphine Sulfate 4 mg 4 mg PRN Q2HR PRN IV PAIN 01/29/17 03:00 01/29/17 11:47 DC 01/29/17 09:59 Sodium Chloride (Iv Sodium Chloride 0.9% 1000ml Bag) 1,000 ml @ 50 mls/hr Q20H IV 01/29/17 02:12 01/30/17 02:11 01/29/17 02:54 Alprazolam (Xanax) 0.5 mg PRN Q6HRS PRN PO ANXIETY / AGITATION 01/29/17 11:30 01/29/17 12:31 Morphine Sulfate 6 mg PRN Q2HR PRN IV PAIN 01/29/17 11:45 01/29/17 12:17 Imaging: Imaging: CT A/P w/o contrast 01/28/17 Impression: Stable CT abdomen and pelvis when compared with exam from May 2015. No acute feature is detected. Since we've last seen him: Abdominal aortogram with left lower extremity arteriogram 12/2016 Impression: 1. No abdominal aortic aneurysm or significant iliac inflow stenosis, bilaterally. 2. Widely patent left deep femoral artery. 3. Diffusely and severely diseased left superficial femoral artery, with mid segment critical stenoses and the distal segment occlusion, for which successful , uneventful AUGER PRESS OPERATOR followed by placement of a single 250 mm long Viabahn endograft was performed, as described. 4. Widely patent tibial trifurcation, with three-vessel distal runoff to ankle. Perfusion to left foot is suboptimal, raising the question of significant distal small vessel disease. 5. Prior to right groin sheath removal, a hand-injection of Visipaque was performed, confirming origin occlusion of previously stented right superficial femoral artery, with popliteal artery reconstitution near abductor canal. Given this patient's history of bilateral calf claudication, repeat right SFA percutaneous intervention or referral to vascular surgery for femoral-popliteal bypass graft placement is considered indicated. Selective RLE arteriogram 12/2016 Impression: 1. Moderate to high-grade stenosis lies at origin of right deep femoral artery. 2. Severe proximal right SFA recurrent stenosis, followed by marked, recurrent chronic occlusive disease throughout previously stented mid right SFA through proximal popliteal artery segment. Despite multiple attempts, endovascular recanalization of right SFA-popliteal segment could not be successfully performed. 3. Reconstituted mid--distal right popliteal artery shows no hemodynamically significant lesion. 4. Dominant right lower extremity distal runoff is via widely patent anterior tibial artery. 5. High-grade stenosis within most distal tibioperoneal trunk extends to origin of right peroneal artery, which is otherwise widely patent through distal calf, and provides collateral perfusion to plantar distribution at hindfoot. 6. Posterior tibial artery shows high-grade origin stenosis, is diffusely and severely attenuated, and is occluded at distal calf. 7. Follow-up with vascular surgery has been arranged, for consideration of possible right lower extremity bypass graft, with profundoplasty. PE: GEN: NAD, dialyzing HEENT: Atraumatic, PERRL LUNGS: CTAB anteriorly HEART: RRR ABD: NABS, S/ND, epigastric to RUQ/right flank tenderness EXTREMITY: No edema SKIN: No rashes, no jaundice NEURO/PSYCH: A & O 3 A/P: A/P: Epigastric/RUQ pain, right flank pain, anorexia Recurrent pancreatitis, elevated lipase -s/p cholecystectomy w/o h/o alcohol use GERD, h/o PUD -last EGD 2014 -always on PPI here, doesn't take at home (but instead uses Tums) Lymphocytic colitis -last colonoscopy 2015, sulfasalazine improved diarrhea (currently not taking) ESRD on HD PAD -says was supposed to see vascular surgery tomorrow as an outpatient to discuss possible RLE bypass -- Medical therapy for likely recurrent pancreatitis. He would like to continue clear liquids. Continue PPI. Doesn't have diarrhea currently, even off sulfasalazine. TOMMY SALVADOR Jan 29, 2017 13:14
[2017-01-29] MEDS: HYDRALAZINE 50 MG TABLET PO SCH ×2 (14:00→21:00)
[2017-01-29] MEDS: FUROSEMIDE 80 MG TABLET PO SCH (14:00)
[2017-01-29] MEDS ORDERED: NITROGLYCERIN SUBLINGUAL 0.4 MG BOTTLE OF 25. SL ONE ×2 (16:55→17:00)
--- NOTE | 2017-01-29 17:12 | EKG ---
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
[2017-01-29] MEDS ORDERED: HEPARIN for IV BOLUS 10,000 UNIT/10 ML VIAL. IV ONE ×2 (17:30→18:45)
--- NOTE | 2017-01-29 17:35 | PDOC2 ---
CONSULT Date of Consult Date of Consult DATE: 01/29/17 TIME: 17:30 Reason for Consult Reason for Consult: Chest pain Referring Physician Referring Physician: Dr Giles History of Present Illness Reason for Visit: Pt is a 61 y o gentleman that is a vasculopath with CAD, PVD, ESRD on dialysis. Pt developed acute onset of chest pain and the EKG shows acute ST elevation of inferior leads and this is new for him Past Medical History Cardiovascular: CAD, HTN, [place] Pulmonary: Other GI: Constipation, GERD, Other Heme/Onc: Anemia NOS Psych: Depression Renal/: Chronic renal failure, Other Endocrine: Hyperparathyroidism Past Surgical History Past Surgical History: Appendectomy, Cholecystectomy, Other Family History Family History: Cancer, Diabetes, Kidney Disease, Stroke Social History ALCOHOL: none Drugs: None Lives: with Family Domestic Violence: Neg Current Problem List Problem List Problems Medical Problems: (1) Flank pain Status: Acute (2) Pancreatitis Status: Acute Current Medications Current Medications Current Medications Hydromorphone HCl (Dilaudid) 1 mg 1X ONCE IV Last administered on 01/28/17 23 :57; Start 01/28/17 at 23:30; Stop 01/28/17 at 23:31; Status DC Ondansetron HCl 4 mg 4 mg 1X ONCE IV Last administered on 01/28/17 23:57; Start 01/28/17 at 23:30; Stop 01/28/17 at 23:31; Status DC Sodium Chloride (Iv Sodium Chloride 0.9% 500ml Bag) 500 ml @ 0 mls/hr 1X ONCE IV Last administered on 01/28/17 23:39; Start 01/28/17 at 23:30; Stop at 23:31; Status DC Diphenhydramine HCl (Benadryl) 50 mg 1X ONCE IVP Last administered on 00:29; Start 01/29/17 at 00:30; Stop 01/29/17 at 00:31; Status DC Diphenhydramine HCl (Benadryl) 50 mg STK-MED ONCE .ROUTE ; Start 01/29/17 at 00: 26; Stop 01/29/17 at 00:27; Status DC Morphine Sulfate 4 mg 1X ONCE IV Last administered on 01/29/17 03:55; Start 01/29/17 at 02:15; Stop 01/29/17 at 02:16; Status DC Ondansetron HCl (Zofran) 4 mg PRN Q8HRS PRN IV NAUSEA/VOMITING; Start 01/29/17 at 03:00; Stop 01/30/17 at 02:59 Morphine Sulfate 4 mg 4 mg PRN Q2HR PRN IV PAIN Last administered on 01/29/17 09:59; Start 01/29/17 at 03:00; Stop 01/29/17 at 11:47; Status DC Sodium Chloride (Iv Sodium Chloride 0.9% 1000ml Bag) 1,000 ml @ 50 mls/hr Q20H IV Last administered on 01/29/17 02:54; Start 01/29/17 at 02:12; Stop at 02:11 Alprazolam (Xanax) 0.5 mg PRN Q6HRS PRN PO ANXIETY / AGITATION Last administered on 01/29/17 12:31; Start 01/29/17 at 11:30 Amlodipine Besylate (Norvasc) 10 mg BID PO ; Start 01/29/17 at 12:00 Aspirin (Children'S Aspirin) 324 mg DAILY PO ; Start 01/29/17 at 12:00 Calcium Carbonate/ Glycine (Tums) 800 mg TIDAC PO ; Start 01/29/17 at 11:30 Clonidine HCl (Catapres) 0.3 mg DAILY PO ; Start 01/30/17 at 09:00 Clopidogrel Bisulfate (Plavix) 75 mg DAILY PO ; Start 01/29/17 at 12:00 Vitamin B Complex/ Vitamin C (Nephro-Chilo) 1 tab DAILY PO ; Start 01/29/17 at 12 :00 Furosemide (Lasix) 80 mg BID92 PO ; Start 01/29/17 at 14:00 Acetaminophen/ Hydrocodone Bitart (Lortab 5/325) 1 tab PRN Q6HRS PRN PO PAIN; Start 01/29/17 at 11:30 Isosorbide Mononitrate (Imdur) 30 mg DAILY PO ; Start 01/29/17 at 12:00 Paroxetine HCl (Paxil) 40 mg DAILY PO ; Start 01/29/17 at 12:00 Tamsulosin HCl (Flomax) 0.4 mg QHS PO ; Start 01/29/17 at 21:00 Hydralazine HCl (Apresoline) 100 mg TID PO ; Start 01/29/17 at 14:00 Losartan Potassium (Cozaar) 100 mg QHS PO ; Start 01/29/17 at 21:00 Metoprolol Tartrate (Lopressor) 100 mg BID PO ; Start 01/29/17 at 12:00 Pantoprazole Sodium (Protonix) 40 mg DAILYAC PO ; Start 01/29/17 at 12:00 Darbepoetin Percy (Aranesp) 60 mcg WEEKLYHS SQ ; Start 01/31/17 at 21:00 Morphine Sulfate 6 mg 6 mg PRN Q2HR PRN IV PAIN Last administered on 01/29/17 17:26; Start 01/29/17 at 11:45 Sodium Chloride (Iv Sodium Chloride 0.9% 1000ml Bag) 1,000 ml @ 1,000 mls/hr Q1H PRN IV hypotension; Start 01/29/17 at 12:55; Stop 01/29/17 at 18:54 Diphenhydramine HCl (Benadryl) 25 mg 1X PRN PRN IV ITCHING Last administered on 01/29/17 13:06; Start 01/29/17 at 13:00; Stop 01/30/17 at 12:59 Diphenhydramine HCl (Benadryl) 25 mg 1X PRN PRN IV ITCHING Last administered on 01/29/17 13:16; Start 01/29/17 at 13:00; Stop 01/30/17 at 12:59 Info (PHARMACY MONITORING -- do not chart) 1 each PRN DAILY PRN MC SEE COMMENTS ; Start 01/29/17 at 13:00; Status UNV Info (PHARMACY MONITORING -- do not chart) 1 each PRN DAILY PRN MC SEE COMMENTS ; Start 01/29/17 at 13:00 Nitroglycerin (Nitrostat) 0.4 mg STK-MED ONCE SL ; Start 01/29/17 at 16:55; Stop 01/29/17 at 16:56; Status DC Heparin Sodium (Porcine) 4,000 unit 1X ONCE IV ; Start 01/29/17 at 17:30; Stop 01/29/17 at 17:31 Active Scripts Active Clopidogrel (Clopidogrel Bisulfate) 75 Mg Tablet 1 Tab PO DAILY Isosorbide Mononitrate Er (Isosorbide Mononitrate) 30 Mg Tab.er.24h 30 Mg PO DAILY Flomax (Tamsulosin Hcl) 0.4 Mg Cap.er.24h 0.4 Mg PO QHS Reported Hydrocodone-Apap 5-325 (Hydrocodone Bit/Acetaminophen) 1 Each Tablet 1 Tab PO PRN Q6HRS PRN Furosemide 80 Mg Tablet 1 Tab PO BID Nephro-Chilo Tablet (Folic Acid/Vitamin B Comp W-C) 0.8 Mg Tablet 1 Tab PO DAILY Paroxetine Hcl 20 Mg Tablet 40 Mg PO DAILY Tums (Calcium Carbonate) 200 Mg Tab.chew 800 Mg PO TIDAC Omeprazole Magnesium 20 Mg Capsule.dr 20 Mg PO DAILY Clonidine Hcl 0.3 Mg Tablet 1 Tab PO DAILY Hydralazine Hcl 100 Mg Tablet 100 Mg PO TID LAST DOSE: 02/24/16 AFTERNOON NEXT DOSE: 02/24/16 BEDTIME Amlodipine Besylate 10 Mg Tablet 10 Mg PO BID LAST DOSE: 02/24/16 AM NEXT DOSE: 02/25/16 AM Xanax (Alprazolam) 0.5 Mg Tablet 0.5 Mg PO Q6HRS PRN LAST DOSE: 02/23/16 BEDTIME NEXT DOSE: 02/24/16 BEDTIME Losartan Potassium 100 Mg Tablet 100 Mg PO HS LAST DOSE: 02/23/16 BEDTIME NEXT DOSE: 02/24/16 BEDTIME Metoprolol Tartrate 100 Mg Tablet 100 Mg PO BID LAST DOSE: 02/24/16 AM NEXT DOSE: 02/24/16 BEDTIME Lillian Chewable (Aspirin) 81 Mg Tab.chew 324 Mg PO DAILY LAST DOSE: 02/24/16 AM NEXT DOSE: 02/25/16 AM Allergies Allergies: Coded Allergies: No Known Drug Allergies (Unverified , 01/02/17) Physical Exam General: Alert, Oriented X3, Cooperative HEENT: Atraumatic Lungs: Clear to auscultation Heart: Regular rate, Normal S1, Normal S2, Other (tachy and irregular) Abdomen: Other (BS (+), mild tenderness) Extremities: No edema, Other (poor pulses) Vitals VITALS Vital Signs Date Time Temp Pulse Resp B/P Pulse Ox O2 Delivery O2 Flow Rate FiO2 01/29/17 17:26 16 Nasal Cannula 2.0 01/29/17 15:00 73 143/71 01/29/17 11:00 95.4 96 95.4 Labs Labs Laboratory Tests Test 01/28/17 23:40 White Blood Count 8.9x10^3/uL (4.0-11.0) Red Blood Count 3.17x10^6/uL (4.30-5.70) Hemoglobin 9.9g/dL (13.0-17.5) Hematocrit 29.3% (39.0-53.0) Mean Corpuscular Volume 93fL (79-100) Mean Corpuscular Hemoglobin 31pg (25-35) Mean Corpuscular Hemoglobin Concent 34g/dL (31-37) Red Cell Distribution Width 13.7% (11.5-14.5) Platelet Count 178x10^3/uL (140-400) Neutrophils (%) (Auto) 77% (31-73) Lymphocytes (%) (Auto) 13% (24-48) Monocytes (%) (Auto) 7% (0-9) Eosinophils (%) (Auto) 2% (0-3) Basophils (%) (Auto) 1% (0-3) Neutrophils # (Auto) 6.9x10^3uL (1.8-7.7) Lymphocytes # (Auto) 1.2x10^3/uL (1.0-4.8) Monocytes # (Auto) 0.7x10^3/uL (0.0-1.1) Eosinophils # (Auto) 0.2x10^3/uL (0.0-0.7) Basophils # (Auto) 0.1x10^3/uL (0.0-0.2) Sodium Level 143mmol/L (136-145) Potassium Level 4.9mmol/L (3.5-5.1) Chloride Level 101mmol/L (98-107) Carbon Dioxide Level 22mmol/L (21-32) Anion Gap 20 (6-14) Blood Urea Nitrogen 114mg/dL (8-26) Creatinine 13.4mg/dL (0.7-1.3) Estimated GFR (Cockcroft-Gault) 3.8 BUN/Creatinine Ratio 9 (6-20) Glucose Level 149mg/dL (70-99) Calcium Level 6.7mg/dL (8.5-10.1) Total Bilirubin 0.3mg/dL (0.2-1.0) Aspartate Amino Transf (AST/SGOT) 16U/L (15-37) Alanine Aminotransferase (ALT/SGPT) 14U/L (16-63) Alkaline Phosphatase 74U/L (46-116) Troponin I Quantitative 0.048ng/mL (0.000-0.055) Total Protein 6.8g/dL (6.4-8.2) Albumin 3.1g/dL (3.4-5.0) Albumin/Globulin Ratio 0.8 (1.0-1.7) Lipase 736U/L (73-393) Laboratory Tests Test 01/28/17 23:40 White Blood Count 8.9x10^3/uL (4.0-11.0) Red Blood Count 3.17x10^6/uL (4.30-5.70) Hemoglobin 9.9g/dL (13.0-17.5) Hematocrit 29.3% (39.0-53.0) Mean Corpuscular Volume 93fL (79-100) Mean Corpuscular Hemoglobin 31pg (25-35) Mean Corpuscular Hemoglobin Concent 34g/dL (31-37) Red Cell Distribution Width 13.7% (11.5-14.5) Platelet Count 178x10^3/uL (140-400) Neutrophils (%) (Auto) 77% (31-73) Lymphocytes (%) (Auto) 13% (24-48) Monocytes (%) (Auto) 7% (0-9) Eosinophils (%) (Auto) 2% (0-3) Basophils (%) (Auto) 1% (0-3) Neutrophils # (Auto) 6.9x10^3uL (1.8-7.7) Lymphocytes # (Auto) 1.2x10^3/uL (1.0-4.8) Monocytes # (Auto) 0.7x10^3/uL (0.0-1.1) Eosinophils # (Auto) 0.2x10^3/uL (0.0-0.7) Basophils # (Auto) 0.1x10^3/uL (0.0-0.2) Sodium Level 143mmol/L (136-145) Potassium Level 4.9mmol/L (3.5-5.1) Chloride Level 101mmol/L (98-107) Carbon Dioxide Level 22mmol/L (21-32) Anion Gap 20 (6-14) Blood Urea Nitrogen 114mg/dL (8-26) Creatinine 13.4mg/dL (0.7-1.3) Estimated GFR (Cockcroft-Gault) 3.8 BUN/Creatinine Ratio 9 (6-20) Glucose Level 149mg/dL (70-99) Calcium Level 6.7mg/dL (8.5-10.1) Total Bilirubin 0.3mg/dL (0.2-1.0) Aspartate Amino Transf (AST/SGOT) 16U/L (15-37) Alanine Aminotransferase (ALT/SGPT) 14U/L (16-63) Alkaline Phosphatase 74U/L (46-116) Troponin I Quantitative 0.048ng/mL (0.000-0.055) Total Protein 6.8g/dL (6.4-8.2) Albumin 3.1g/dL (3.4-5.0) Albumin/Globulin Ratio 0.8 (1.0-1.7) Lipase 736U/L (73-393) Assessment/Plan Assessment/Plan Chest Pain Acute Inferior Wall [place] STEMI Will take to cath-lab emergently. Thank you ESTEFANÍA MANZO MD Jan 29, 2017 17:35
--- NOTE | 2017-01-29 17:36 | PDOC ---
MODERATE SEDATION ASSESSMENT RISKS/ALTERNATIVES Risks/Alternatives Risks and alternatives of this type of sedation and procedure discussed with: RISK/ALTERNATIVES: Patient H & P ON CHART H & P H & P on chart and reviewed for co-morbid conditions and appropriate labs. H&P ON CHART: Yes STATUS PREG STATUS ASSESSED: Yes MEDS/ALLERGIES REVIEWED Meds/Allergies Reviewed Medications and Allergies including time and route of recently administered narcotics and sedatives. MEDS/ALLERGIES REVIEWED: Yes ASA RATING ASA RATING: II AIRWAY ASSESSMENT Airway Assessment Airway patency, oral function limitations, presence of caps, crowns, dentures, partials, and ability to extend neck assessed. AIRWAY ASSESSMENT: Yes MALLAMPATI SCORE MALLAMPATI SCORE: II PRE-SEDATION ASSESSMENT PRE-SEDATION ASSESSMENT: Yes ESTEFANÍA MANZO MD Jan 29, 2017 17:35
[2017-01-29] MEDS ORDERED: IODIXANOL 320 MG/ML 100 ML VIAL. ONE (17:54)
[2017-01-29] MEDS ORDERED: LIDOCAINE 2% 20 ML VIAL. ONE (17:54)
[2017-01-29] MEDS ORDERED: FENTANYL PF 100 MCG/2 ML VIAL. ONE (18:05)
[2017-01-29] MEDS ORDERED: MIDAZOLAM HCL 2 MG/2 ML VIAL. ONE (18:05)
[2017-01-29] MEDS ORDERED: METOPROLOL TARTRATE 5 MG/5 ML VIAL. ONE ×2 (18:05→18:25)
[2017-01-29] MEDS ORDERED: HEPARIN for IV BOLUS 10,000 UNIT/10 ML VIAL. ONE (18:18)
[2017-01-29] MEDS ORDERED: HEPARIN 25,000UTS/500ML PREMIX 500 ML IV ONE (18:18)
[2017-01-29] MEDS ORDERED: HEPARIN 25,000UTS/500ML PREMIX 500 ML IV PRN (18:24)
[2017-01-29] MEDS ORDERED: MIDAZOLAM HCL 2 MG/2 ML VIAL. IV ONE (18:45)
[2017-01-29] MEDS ORDERED: NITROGLYCERIN SUBLINGUAL 0.4 MG BOTTLE OF 25. SL PRN (18:45)
[2017-01-29] MEDS ORDERED: 0.9 % SODIUM CHLORIDE 10 ML DISP.SYRIN. IV PRN (18:45)
[2017-01-29] MEDS ORDERED: FENTANYL PF 100 MCG/2 ML VIAL. IV ONE (18:45)
[2017-01-29] MEDS ORDERED: METOPROLOL TARTRATE 5 MG/5 ML VIAL. IVP ONE (18:45)
[2017-01-29] MEDS ORDERED: IODIXANOL 320 MG/ML 100 ML VIAL. IART ONE (18:45)
[2017-01-29] MEDS ORDERED: LIDOCAINE 2% 20 ML VIAL. IJ ONE (18:45)
[2017-01-29] MEDS ORDERED: DILTIAZEM 125 MG in IV DEXTROSE 5% 100 ML IV PRN (19:15)
[2017-01-29] MEDS ORDERED: DILTIAZEM IV PUSH 25 MG/5 ML VIAL. IVP ONE (19:15)
--- NOTE | 2017-01-29 19:22 | CARD ---
APPROVED REPORT Procedure(s) performed: Left Heart Catheterization HISTORY previous NH: diabetes mellitus with treatment, peripheral vascular disease, coronary artery disease, tobacco history() , hypertension, dyslipidemia, family history of premature CAD, Pt developed chest p ain at the end of dialysis with acute EKG changes of inferior leads. INDICATION The indication(s) include : chest pain, STEMI (>0 to less than or equal to 6 hours), abnormal ECG. CASE TECHNIQUE The patient was brought emergently into the cardiac catheterization lab. A timeout was performed conf irming the patient's name, date of , procedure, and site of procedure. All necessary parties wer e wearing the appropriate personal protective equipment and radiation monitoring devices. After expla ining the risks and benefits of the procedure, informed consent was obtained.(See nursing notes for m edications administered). The left groin was sterilely prepped and draped. The left femoral groin was infiltrated with 2% Lidocaine subcutaneous anesthesia. During this case, Fluoroscopy and low osmolar contrast were used for imaging. A sheath was inserted into the left femoral artery without difficult y. Coronary angiography was performed using coronary diagnostic catheters. The left coronary system w as accessed and visualized with a Diagnostic catheter. The right coronary system was accessed and vis ualized with a Diagnostic catheter. The left ventricle was accessed and visualized with a Diagnostic catheter. Left ventricular/Aortic Valve gradient assessed on pullback. Left ventriculogram was perfor med in MILLER projection. Pre-demployment femoral angiogram was performed . The patient tolerated the pr ocedure well and there were no complications associated with the procedure. The pt needs continued an ticoagulation and the L femoral artery has disease and is too small to deploy any closure device ther efore the sheath was sutured in place and pt transfered to ICU for further care. Coronary Angiography The patient's coronary anatomy is co-dominant. The left main coronary artery is a large size vessel with stenosis. There is a 65% stenosis in the di stal segment. The left main trifurcates to the left anterior descending, circumflex, and ramus. The left anterior descending artery is a large size vessel with intimal irregularities and without si gnificant stenosis. The first diagonal branch is a medium size vessel free of disease. The second reed gonal branch is a small size vessel free of disease. The third diagonal branch is a small size vessel free of disease. The circumflex artery is a large size vessel with stenosis. There is a 99% stenosis in the ostial seg ment. at the bifurcation with the LM The first obtuse marginal branch is a large size vessel with int imal irregularities and without significant stenosis. The second obtuse marginal branch is a large si ze vessel free of disease. The third obtuse marginal branch is a medium size vessel free of disease. The ramus intermedius artery is a small size vessel with intimal irregularities and without significa nt stenosis. The right coronary artery is a large size vessel with diffuse calcification noted throughout this ves peggy and with significant stenosis. there is thrombus distally and stenosis of 80% distal The right po sterior descending artery is a medium size vessel with intimal irregularities. There is a % stenosis i. there is good flow around the thrombus in the RCA into the PDA and it is a good size vessel The ri ght posterolateral branch is a small size vessel with stenosis. There is a 100% stenosis in the proxi mal segment. Left Ventriculography The left ventricle is hypertrophic in size with normal contractility. The left ventricular ejection f raction is estimated to be 65%. The left ventricular end diastolic pressure is 28 mmHg. There was no gradient across the aortic valve upon pullback. Conclusion This pt with severe CAD that includes LM disease, ostial Cx and distal RCA with associated thrombus h as a preserved LV function and from a cardiac standpoint he needs CABGS but he has noncardiac issues that need to be consider. The pancreatitis, PVD, DM, ESRD all play a role in his condition and prognosis. Will consult Dr Holbrook to get the surgical opinion. Keep the pt heparinized due to the presence of thrombus. If he is going to have surgery I do not want to give him thrombolitics because of the surgery AND the pancreatitis. I only want to give him heparin at this time.
[2017-01-29] MEDS: FENTANYL PF 100 MCG/2 ML VIAL. IV PRN ×2 (20:27→23:25)
[2017-01-29] MEDS: TAMSULOSIN 0.4 MG CAP.ER.24H. PO SCH (21:00)
[2017-01-29] MEDS: CYCLOBENZAPRINE 10 MG TABLET. PO PRN (21:00)
[2017-01-29] MEDS: DOCUSATE SODIUM 100 MG CAPSULE PO SCH (21:00)
[2017-01-29] MEDS: LOSARTAN POTASSIUM 50 MG TABLET. PO SCH (21:00)
[2017-01-29] MEDS: HYDROCODONE/APAP 5/325MG TABLET. PO PRN (21:01)
[2017-01-30] VITALS (24 sets, daily range): BP systolic 106–148; BP diastolic 49–80
[2017-01-30] MEDS: MORPHINE SULFATE 10 MG/ML VIAL. IV PRN ×3 (00:36→19:22)
[2017-01-30] MEDS: HYDROCODONE/APAP 5/325MG TABLET. PO PRN (05:21)
[2017-01-30] MEDS: ALPRAZOLAM 0.5 MG TABLET PO PRN ×2 (05:22→19:21)
[2017-01-30] MEDS: CYCLOBENZAPRINE 10 MG TABLET. PO PRN (05:22)
[2017-01-30 06:12] LABS: BASO % 1 % (0-3); EOS % 1 % (0-3); HEMATOCRIT 30.7 % (39.0-53.0); HEMOGLOBIN 10.3 g/dL (13.0-17.5); LYMPH # 0.9 x10^3/uL (1.0-4.8); LYMPH % 10 % (24-48); MEAN CORPUSCULAR HEMOGLOBIN 31 pg (25-35); MEAN CORPUSCULAR HGB CONC 33 g/dL (31-37); MEAN CORPUSCULAR VOLUME 94 fL (79-100); MONO % 10 % (0-9); NEUT % 79 % (31-73); PLATELET COUNT 193 x10^3/uL (140-400); RED BLOOD COUNT 3.28 x10^6/uL (4.30-5.70); WHITE BLOOD COUNT 8.9 x10^3/uL (4.0-11.0)
[2017-01-30 06:15] LABS: CALCIUM 7.4 mg/dL (8.5-10.1); CREATININE 8.8 mg/dL (0.7-1.3); GFR 6.2
[2017-01-30 06:17] LABS: POTASSIUM 5.4 mmol/L (3.5-5.1)
[2017-01-30 06:28] LABS: INR 1.2 (0.8-1.1); PROTHROMBIN TIME PATIENT 14.7 SEC (11.7-14.0)
[2017-01-30] MEDS: DIPHENHYDRAMINE 50 MG/ML VIAL IVP PRN ×2 (07:26→19:21)
[2017-01-30] MEDS: FUROSEMIDE 80 MG TABLET PO SCH ×2 (07:27→12:59)
[2017-01-30] MEDS: CALCIUM CARBONATE 500 MG TAB.CHEW PO SCH ×3 (07:27→16:30)
[2017-01-30] MEDS: PANTOPRAZOLE 40 MG TABLET. PO SCH (07:27)
[2017-01-30] MEDS: FOLIC/VIT B COMP W-C (RENAL) TABLET. PO SCH (07:27)
[2017-01-30] MEDS: IV NORMAL SALINE 1000ML BAG 1,000 ML IV SCH (07:28)
[2017-01-30] MEDS: ISOSORBIDE MONONITRATE ER 30 MG TAB.ER.24H PO SCH (07:38)
[2017-01-30] MEDS: ASPIRIN 81 MG TAB.CHEW PO SCH (07:38)
[2017-01-30] MEDS: CLONIDINE HCL 0.3 MG TABLET PO SCH (07:38)
[2017-01-30] MEDS: HYDRALAZINE 50 MG TABLET PO SCH ×3 (07:38→21:00)
[2017-01-30] MEDS: DOCUSATE SODIUM 100 MG CAPSULE PO SCH ×2 (07:38→21:00)
[2017-01-30] MEDS: METOPROLOL TART IMMED RELEASE 50 MG TABLET PO SCH ×2 (07:39→21:05)
[2017-01-30] MEDS: AMLODIPINE BESYLATE 10 MG TABLET PO SCH ×2 (07:39→21:00)
[2017-01-30] MEDS: CLOPIDOGREL BISULFATE 75 MG TABLET PO SCH (07:39)
--- NOTE | 2017-01-30 08:01 | EKG ---
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
[2017-01-30] MEDS: PAROXETINE 20 MG TABLET. PO SCH (08:51)
--- NOTE | 2017-01-30 10:12 | PDOC ---
Provider Note Provider Note Pt seen/examined full note dictated Pt has presented with pancreatitis Apparently developed acute NE while in hospital troponin today is 21 [facility] shows left main and sig multi-vessel cad I agree witht the need for cabg for HIM Timing is the main issue He has been off plavix since saturday He will need further w/u with echo, carotid duplex and EMILY's will also need vein mapping I anticipate CABG early next week to allow time to recover from Acute NE and to be off plavix Thanks ZUHAIR DÍAZ MD Jan 30, 2017 10:12
--- NOTE | 2017-01-30 10:25 | PDOC ---
PROGRESS NOTES Subjective Subjective Pt continues to report right flank pain, but improved from yesterday. Denies chest pain, nausea, and shortness of breath at this time. Objective Objective Vital Signs Date Time Temp Pulse Resp B/P Pulse Ox O2 Delivery O2 Flow Rate FiO2 01/30/17 10:00 87 23 125/65 94 Nasal Cannula 2.0 01/30/17 08:00 99.0 99.0 Intake and Output 01/30/17 07:00 Intake Total 1503 ml Output Total 0 ml Balance 1503 ml Intake Oral 230 ml IV Total 1273 ml Output Urine Total 0 ml Physical Exam Physical Exam No changes in cardiac exam. Assessment Assessment Pt with severe CAD that is a Vasculopath and is awaiting CABGS. Groin line DC'ed Problems Medical Problems: (1) Flank pain Status: Acute (2) Pancreatitis Status: Acute Plan Plan of Care Acute Inferior Wall CO STEMI Removed femoral line w/o complications Agree with current plan Continue medical management Plan for CABG Will restart heparin after 6pm Thank you Comment Review of Relevant I have reviewed the following items dionte (where applicable) has been applied. Labs Laboratory Tests Test 01/28/17 23:40 01/30/17 05:45 White Blood Count 8.9x10^3/uL (4.0-11.0) 8.9x10^3/uL (4.0-11.0) Red Blood Count 3.17x10^6/uL (4.30-5.70) 3.28x10^6/uL (4.30-5.70) Hemoglobin 9.9g/dL (13.0-17.5) 10.3g/dL (13.0-17.5) Hematocrit 29.3% (39.0-53.0) 30.7% (39.0-53.0) Mean Corpuscular Volume 93fL (79-100) 94fL (79-100) Mean Corpuscular Hemoglobin 31pg (25-35) 31pg (25-35) Mean Corpuscular Hemoglobin Concent 34g/dL (31-37) 33g/dL (31-37) Red Cell Distribution Width 13.7% (11.5-14.5) 14.0% (11.5-14.5) Platelet Count 178x10^3/uL (140-400) 193x10^3/uL (140-400) Neutrophils (%) (Auto) 77% (31-73) 79% (31-73) Lymphocytes (%) (Auto) 13% (24-48) 10% (24-48) Monocytes (%) (Auto) 7% (0-9) 10% (0-9) Eosinophils (%) (Auto) 2% (0-3) 1% (0-3) Basophils (%) (Auto) 1% (0-3) 1% (0-3) Neutrophils # (Auto) 6.9x10^3uL (1.8-7.7) 7.0x10^3uL (1.8-7.7) Lymphocytes # (Auto) 1.2x10^3/uL (1.0-4.8) 0.9x10^3/uL (1.0-4.8) Monocytes # (Auto) 0.7x10^3/uL (0.0-1.1) 0.9x10^3/uL (0.0-1.1) Eosinophils # (Auto) 0.2x10^3/uL (0.0-0.7) 0.1x10^3/uL (0.0-0.7) Basophils # (Auto) 0.1x10^3/uL (0.0-0.2) 0.0x10^3/uL (0.0-0.2) Sodium Level 143mmol/L (136-145) 140mmol/L (136-145) Potassium Level 4.9mmol/L (3.5-5.1) 5.4mmol/L (3.5-5.1) Chloride Level 101mmol/L (98-107) 102mmol/L (98-107) Carbon Dioxide Level 22mmol/L (21-32) 27mmol/L (21-32) Anion Gap 20 (6-14) 11 (6-14) Blood Urea Nitrogen 114mg/dL (8-26) 52mg/dL (8-26) Creatinine 13.4mg/dL (0.7-1.3) 8.8mg/dL (0.7-1.3) Estimated GFR (Cockcroft-Gault) 3.8 6.2 BUN/Creatinine Ratio 9 (6-20) Glucose Level 149mg/dL (70-99) 94mg/dL (70-99) Calcium Level 6.7mg/dL (8.5-10.1) 7.4mg/dL (8.5-10.1) Total Bilirubin 0.3mg/dL (0.2-1.0) Aspartate Amino Transf (AST/SGOT) 16U/L (15-37) Alanine Aminotransferase (ALT/SGPT) 14U/L (16-63) Alkaline Phosphatase 74U/L (46-116) Troponin I Quantitative 0.048ng/mL (0.000-0.055) 21.034ng/mL (0.000-0.055) Total Protein 6.8g/dL (6.4-8.2) Albumin 3.1g/dL (3.4-5.0) Albumin/Globulin Ratio 0.8 (1.0-1.7) Lipase 736U/L (73-393) 222U/L (73-393) Prothrombin Time 14.7SEC (11.7-14.0) Prothromb Time International Ratio 1.2 (0.8-1.1) Heparin Anti-Xa Act, Unfractionated 0.23IU/mL (0.30-0.70) Amylase Level 99U/L (25-115) Laboratory Tests Test 01/30/17 05:45 White Blood Count 8.9x10^3/uL (4.0-11.0) Red Blood Count 3.28x10^6/uL (4.30-5.70) Hemoglobin 10.3g/dL (13.0-17.5) Hematocrit 30.7% (39.0-53.0) Mean Corpuscular Volume 94fL (79-100) Mean Corpuscular Hemoglobin 31pg (25-35) Mean Corpuscular Hemoglobin Concent 33g/dL (31-37) Red Cell Distribution Width 14.0% (11.5-14.5) Platelet Count 193x10^3/uL (140-400) Neutrophils (%) (Auto) 79% (31-73) Lymphocytes (%) (Auto) 10% (24-48) Monocytes (%) (Auto) 10% (0-9) Eosinophils (%) (Auto) 1% (0-3) Basophils (%) (Auto) 1% (0-3) Neutrophils # (Auto) 7.0x10^3uL (1.8-7.7) Lymphocytes # (Auto) 0.9x10^3/uL (1.0-4.8) Monocytes # (Auto) 0.9x10^3/uL (0.0-1.1) Eosinophils # (Auto) 0.1x10^3/uL (0.0-0.7) Basophils # (Auto) 0.0x10^3/uL (0.0-0.2) Prothrombin Time 14.7SEC (11.7-14.0) Prothromb Time International Ratio 1.2 (0.8-1.1) Heparin Anti-Xa Act, Unfractionated 0.23IU/mL (0.30-0.70) Sodium Level 140mmol/L (136-145) Potassium Level 5.4mmol/L (3.5-5.1) Chloride Level 102mmol/L (98-107) Carbon Dioxide Level 27mmol/L (21-32) Anion Gap 11 (6-14) Blood Urea Nitrogen 52mg/dL (8-26) Creatinine 8.8mg/dL (0.7-1.3) Estimated GFR (Cockcroft-Gault) 6.2 Glucose Level 94mg/dL (70-99) Calcium Level 7.4mg/dL (8.5-10.1) Troponin I Quantitative 21.034ng/mL (0.000-0.055) Amylase Level 99U/L (25-115) Lipase 222U/L (73-393) Medications Current Medications Hydromorphone HCl (Dilaudid) 1 mg 1X ONCE IV Last administered on 01/28/17 23 :57; Start 01/28/17 at 23:30; Stop 01/28/17 at 23:31; Status DC Ondansetron HCl 4 mg 4 mg 1X ONCE IV Last administered on 01/28/17 23:57; Start 01/28/17 at 23:30; Stop 01/28/17 at 23:31; Status DC Sodium Chloride (Iv Sodium Chloride 0.9% 500ml Bag) 500 ml @ 0 mls/hr 1X ONCE IV Last administered on 01/28/17 23:39; Start 01/28/17 at 23:30; Stop at 23:31; Status DC Diphenhydramine HCl (Benadryl) 50 mg 1X ONCE IVP Last administered on 00:29; Start 01/29/17 at 00:30; Stop 01/29/17 at 00:31; Status DC Diphenhydramine HCl (Benadryl) 50 mg STK-MED ONCE .ROUTE ; Start 01/29/17 at 00: 26; Stop 01/29/17 at 00:27; Status DC Morphine Sulfate 4 mg 1X ONCE IV Last administered on 01/29/17 03:55; Start 01/29/17 at 02:15; Stop 01/29/17 at 02:16; Status DC Ondansetron HCl (Zofran) 4 mg PRN Q8HRS PRN IV NAUSEA/VOMITING; Start 01/29/17 at 03:00; Stop 01/30/17 at 02:59; Status DC Morphine Sulfate 4 mg 4 mg PRN Q2HR PRN IV PAIN Last administered on 01/29/17 09:59; Start 01/29/17 at 03:00; Stop 01/29/17 at 11:47; Status DC Sodium Chloride (Iv Sodium Chloride 0.9% 1000ml Bag) 1,000 ml @ 50 mls/hr Q20H IV Last administered on 01/30/17 07:28; Start 01/29/17 at 02:12; Stop at 02:11; Status DC Alprazolam (Xanax) 0.5 mg PRN Q6HRS PRN PO ANXIETY / AGITATION Last administered on 01/30/17 05:22; Start 01/29/17 at 11:30 Amlodipine Besylate (Norvasc) 10 mg BID PO ; Start 01/29/17 at 12:00 Aspirin (Children'S Aspirin) 324 mg DAILY PO ; Start 01/29/17 at 12:00 Calcium Carbonate/ Glycine (Tums) 800 mg TIDAC PO Last administered on 07:27; Start 01/29/17 at 11:30 Clonidine HCl (Catapres) 0.3 mg DAILY PO ; Start 01/30/17 at 09:00 Clopidogrel Bisulfate (Plavix) 75 mg DAILY PO ; Start 01/29/17 at 12:00; Stop at 09:45; Status DC Vitamin B Complex/ Vitamin C (Nephro-Chilo) 1 tab DAILY PO Last administered on 01/30/17 07:27; Start 01/29/17 at 12:00 Furosemide (Lasix) 80 mg BID92 PO Last administered on 01/30/17 07:27; Start 01/29/17 at 14:00 Acetaminophen/ Hydrocodone Bitart (Lortab 5/325) 1 tab PRN Q6HRS PRN PO PAIN; Start 01/29/17 at 11:30; Stop 01/29/17 at 18:58; Status DC Isosorbide Mononitrate (Imdur) 30 mg DAILY PO ; Start 01/29/17 at 12:00 Paroxetine HCl (Paxil) 40 mg DAILY PO Last administered on 01/30/17 08:51; Start 01/29/17 at 12:00 Tamsulosin HCl (Flomax) 0.4 mg QHS PO ; Start 01/29/17 at 21:00 Hydralazine HCl (Apresoline) 100 mg TID PO ; Start 01/29/17 at 14:00 Losartan Potassium (Cozaar) 100 mg QHS PO ; Start 01/29/17 at 21:00 Metoprolol Tartrate (Lopressor) 100 mg BID PO ; Start 01/29/17 at 12:00 Pantoprazole Sodium (Protonix) 40 mg DAILYAC PO Last administered on 01/30/17 07:27; Start 01/29/17 at 12:00 Darbepoetin Percy (Aranesp) 60 mcg WEEKLYHS SQ ; Start 01/31/17 at 21:00 Morphine Sulfate 6 mg 6 mg PRN Q2HR PRN IV PAIN Last administered on 01/30/17 07:27; Start 01/29/17 at 11:45 Sodium Chloride (Iv Sodium Chloride 0.9% 1000ml Bag) 1,000 ml @ 1,000 mls/hr Q1H PRN IV hypotension; Start 01/29/17 at 12:55; Stop 01/29/17 at 18:54; Status DC Diphenhydramine HCl (Benadryl) 25 mg 1X PRN PRN IV ITCHING Last administered on 01/29/17 19:12; Start 01/29/17 at 13:00; Stop 01/30/17 at 12:59 Diphenhydramine HCl (Benadryl) 25 mg 1X PRN PRN IV ITCHING Last administered on 01/29/17 13:16; Start 01/29/17 at 13:00; Stop 01/30/17 at 12:59 Info (PHARMACY MONITORING -- do not chart) 1 each PRN DAILY PRN MC SEE COMMENTS ; Start 01/29/17 at 13:00; Status UNV Info (PHARMACY MONITORING -- do not chart) 1 each PRN DAILY PRN MC SEE COMMENTS ; Start 01/29/17 at 13:00 Nitroglycerin (Nitrostat) 0.4 mg STK-MED ONCE SL ; Start 01/29/17 at 16:55; Stop 01/29/17 at 16:56; Status DC Heparin Sodium (Porcine) 4000 unit 4,000 unit 1X ONCE IV Last administered on 01/29/17 17:37; Start 01/29/17 at 17:30; Stop 01/29/17 at 17:31; Status DC Heparin Sodium/ Sodium Chloride 500 ml @ As Directed STK-MED ONCE .ROUTE ; Start 01/29/17 at 17:54; Stop 01/29/17 at 17:55; Status DC Lidocaine HCl 20 ml STK-MED ONCE .ROUTE ; Start 01/29/17 at 17:54; Stop at 17:55; Status DC Iodixanol (Visipaque 320) 100 ml STK-MED ONCE .ROUTE ; Start 01/29/17 at 17:54; Stop 01/29/17 at 17:55; Status DC Metoprolol Tartrate (Lopressor) 5 mg STK-MED ONCE .ROUTE ; Start 01/29/17 at 18: 05; Stop 01/29/17 at 18:06; Status DC Fentanyl Citrate (Fentanyl 2ml Vial) 100 mcg STK-MED ONCE .ROUTE ; Start at 18:05; Stop 01/29/17 at 18:06; Status DC Midazolam HCl 2 mg 2 mg STK-MED ONCE .ROUTE ; Start 01/29/17 at 18:05; Stop at 18:06; Status DC Heparin Sodium/ Dextrose 500 ml @ As Directed STK-MED ONCE IV ; Start 01/29/17 at 18:18; Stop 01/29/17 at 18:19; Status DC Heparin Sodium (Porcine) 10,000 unit STK-MED ONCE .ROUTE ; Start 01/29/17 at 18: 18; Stop 01/29/17 at 18:19; Status DC Metoprolol Tartrate (Lopressor) 5 mg STK-MED ONCE .ROUTE ; Start 01/29/17 at 18: 25; Stop 01/29/17 at 18:26; Status DC Heparin Sodium/ Sodium Chloride 1,000 unit 1X ONCE IART Last administered on 18:51; Start 01/29/17 at 18:45; Stop 01/29/17 at 18:53; Status DC Heparin Sodium/ Sodium Chloride 1,000 unit 1X ONCE IART Last administered on 18:51; Start 01/29/17 at 18:45; Stop 01/29/17 at 18:53; Status DC Midazolam HCl (Versed) 1 mg 1X ONCE IV Last administered on 01/29/17 18:53; Start 01/29/17 at 18:45; Stop 01/29/17 at 18:53; Status DC Fentanyl Citrate (Fentanyl 2ml Vial) 50 mcg 1X ONCE IV Last administered on 18:53; Start 01/29/17 at 18:45; Stop 01/29/17 at 18:53; Status DC Iodixanol (Visipaque 320) 105 ml 1X ONCE IART Last administered on 01/29/17 18:52; Start 01/29/17 at 18:45; Stop 01/29/17 at 18:53; Status DC Heparin Sodium (Porcine) 4000 unit 4,000 unit 1X ONCE IV Last administered on 01/29/17 18:53; Start 01/29/17 at 18:45; Stop 01/29/17 at 18:53; Status DC Heparin Sodium/ Dextrose 500 ml @ 20 mls/hr CONT PRN IV SEE I/O RECORD; Start 01/29/17 at 18:24 Metoprolol Tartrate (Lopressor) 10 mg 1X ONCE IVP Last administered on 18:52; Start 01/29/17 at 18:45; Stop 01/29/17 at 18:53; Status DC Lidocaine HCl 10 ml 1X ONCE IJ Last administered on 01/29/17 18:52; Start at 18:45; Stop 01/29/17 at 18:53; Status DC Sodium Chloride (Normal Saline Flush) 3 ml QSHIFT PRN IV AFTER MEDS AND BLOOD DRAWS; Start 01/29/17 at 18:45 Docusate Sodium (Colace) 100 mg BID PO ; Start 01/29/17 at 21:00 Fentanyl Citrate (Fentanyl 2ml Vial) 50 mcg PRN Q1HR PRN IV Moderate or severe pain Last administered on 01/29/17 23:25; Start 01/29/17 at 18:45 Cyclobenzaprine HCl (Flexeril) 10 mg PRN TID PRN PO MUSCLE SPASMS Last administered on 01/30/17 05:22; Start 01/29/17 at 18:45 Ondansetron HCl (Zofran) 4 mg PRN Q6HRS PRN IV NAUSEA/VOMITING; Start 01/29/17 at 18:45 Nitroglycerin (Nitrostat) 0.4 mg PRN Q5MIN PRN SL CHEST PAIN; Start 01/29/17 at 18:45 Acetaminophen/ Hydrocodone Bitart (Lortab 5/325) 1 tab PRN Q4HRS PRN PO MILD PAIN Last administered on 01/30/17 05:21; Start 01/29/17 at 18:45 Diltiazem HCl 5 mg 5 mg 1X ONCE IVP Last administered on 01/29/17 19:23; Start 01/29/17 at 19:15; Stop 01/29/17 at 19:18; Status DC Diltiazem HCl/ Dextrose (Cardizem) 125 ml @ 0 mls/hr CONT PRN IV SEE I/O RECORD ; Start 01/29/17 at 19:15 Diphenhydramine HCl (Benadryl) 50 mg PRN Q8HRS PRN IVP ITCHING Last administered on 01/30/17 07:26; Start 01/29/17 at 19:15 Nitroglycerin (Nitrostat) 0.4 mg STK-MED ONCE SL ; Start 01/29/17 at 17:00; Stop 01/30/17 at 08:02; Status DC Active Scripts Active Clopidogrel (Clopidogrel Bisulfate) 75 Mg Tablet 1 Tab PO DAILY Isosorbide Mononitrate Er (Isosorbide Mononitrate) 30 Mg Tab.er.24h 30 Mg PO DAILY Flomax (Tamsulosin Hcl) 0.4 Mg Cap.er.24h 0.4 Mg PO QHS Reported Hydrocodone-Apap 5-325 (Hydrocodone Bit/Acetaminophen) 1 Each Tablet 1 Tab PO PRN Q6HRS PRN Furosemide 80 Mg Tablet 1 Tab PO BID Nephro-Chilo Tablet (Folic Acid/Vitamin B Comp W-C) 0.8 Mg Tablet 1 Tab PO DAILY Paroxetine Hcl 20 Mg Tablet 40 Mg PO DAILY Tums (Calcium Carbonate) 200 Mg Tab.chew 800 Mg PO TIDAC Omeprazole Magnesium 20 Mg Capsule.dr 20 Mg PO DAILY Clonidine Hcl 0.3 Mg Tablet 1 Tab PO DAILY Hydralazine Hcl 100 Mg Tablet 100 Mg PO TID LAST DOSE: 02/24/16 AFTERNOON NEXT DOSE: 02/24/16 BEDTIME Amlodipine Besylate 10 Mg Tablet 10 Mg PO BID LAST DOSE: 02/24/16 AM NEXT DOSE: 02/25/16 AM Xanax (Alprazolam) 0.5 Mg Tablet 0.5 Mg PO Q6HRS PRN LAST DOSE: 02/23/16 BEDTIME NEXT DOSE: 02/24/16 BEDTIME Losartan Potassium 100 Mg Tablet 100 Mg PO HS LAST DOSE: 02/23/16 BEDTIME NEXT DOSE: 02/24/16 BEDTIME Metoprolol Tartrate 100 Mg Tablet 100 Mg PO BID LAST DOSE: 02/24/16 AM NEXT DOSE: 02/24/16 BEDTIME Lillian Chewable (Aspirin) 81 Mg Tab.chew 324 Mg PO DAILY LAST DOSE: 02/24/16 AM NEXT DOSE: 02/25/16 AM Vitals/I & O Vital Sign - Last 24 Hours 01/29/17 01/29/17 01/29/17 01/29/17 11:00 12:17 14:17 15:00 Temp 95.4 95.4 Pulse 73 73 Resp 22 16 B/P 167/77 143/71 Pulse Ox 96 O2 Delivery Room Air Room Air Room Air Room Air 01/29/17 01/29/17 01/29/17 01/29/17 16:18 17:26 18:52 18:53 Pulse 146 Resp 16 12 Pulse Ox 98 O2 Delivery Room Air Nasal Cannula Nasal Cannula O2 Flow Rate 2.0 2.0 01/29/17 01/29/17 01/29/17 01/29/17 18:54 19:00 19:23 20:00 Temp 98.7 98.7 Pulse 146 76 77 Resp 18 12 B/P 90/54 114/60 Pulse Ox 96 96 O2 Delivery Nasal Cannula Nasal Cannula Nasal Cannula O2 Flow Rate 2.0 2.0 2.0 01/29/17 01/29/17 01/29/17 01/29/17 20:00 20:27 20:57 21:00 Pulse 76 77 Resp 10 31 12 B/P 112/64 114/60 Pulse Ox 97 96 100 O2 Delivery Nasal Cannula Nasal Cannula Nasal Cannula O2 Flow Rate 2.0 2.0 2.0 01/29/17 01/29/17 01/29/17 01/29/17 21:00 21:01 22:00 23:00 Pulse 76 76 77 Resp B/P 116/90 116/75 104/63 Pulse Ox 93 96 100 100 O2 Delivery Room Air Room Air Nasal Cannula Nasal Cannula O2 Flow Rate 2.0 2.0 2.0 2.0 01/29/17 01/30/17 01/30/17 01/30/17 23:25 00:00 00:36 01:00 Temp 97.4 97.4 Pulse 78 75 Resp B/P 106/65 119/68 Pulse Ox 100 100 100 100 O2 Delivery Nasal Cannula Nasal Cannula Nasal Cannula Nasal Cannula O2 Flow Rate 2.0 2.0 2.0 2.0 01/30/17 01/30/17 01/30/17 01/30/17 02:00 03:00 04:00 05:00 Temp 99.1 99.1 Pulse 75 75 83 75 Resp 10 29 12 12 B/P 111/73 106/66 144/66 136/71 Pulse Ox 100 95 98 95 O2 Delivery Nasal Cannula Nasal Cannula Nasal Cannula Nasal Cannula O2 Flow Rate 2.0 2.0 2.0 2.0 01/30/17 01/30/17 01/30/17 01/30/17 05:21 06:00 06:21 07:00 Pulse 81 89 Resp 10 29 12 30 B/P 113/59 113/59 Pulse Ox 95 95 95 99 O2 Delivery Nasal Cannula Nasal Cannula Nasal Cannula Room Air O2 Flow Rate 2.0 2.0 2.0 01/30/17 01/30/17 01/30/17 01/30/17 07:27 08:00 08:00 08:03 Temp 99.0 99.0 Pulse 87 Resp 18 8 8 B/P 109/65 Pulse Ox 97 93 93 O2 Delivery Room Air Nasal Cannula Nasal Cannula Nasal Cannula O2 Flow Rate 2.0 2.0 2.0 01/30/17 01/30/17 09:00 10:00 Pulse 90 87 Resp 23 23 B/P 123/61 125/65 Pulse Ox 96 94 O2 Delivery Nasal Cannula Nasal Cannula O2 Flow Rate 2.0 2.0 Intake and Output 01/29/17 01/29/17 01/30/17 15:00 23:00 07:00 Intake Total 180 ml 750 ml 573 ml Output Total 0 ml Balance 180 ml 750 ml 573 ml ESTEFANÍA MANZO MD Jan 30, 2017 10:25
[2017-01-30] MEDS: ANTI-COAG MONITOR BY PHARMACY. MC PRN (10:49)
--- NOTE | 2017-01-30 10:54 | PDOC ---
Renal-Progress Notes Subjective Notes Notes FEELING BETTER History of Present Illness Hx of present illness HAD AFIB RVR YESTERDAY AT END OF HD AND THEN HEART CATH THAT REVEALED CAD Vitals Vitals Vital Signs Date Time Temp Pulse Resp B/P Pulse Ox O2 Delivery O2 Flow Rate FiO2 01/30/17 10:00 87 23 125/65 94 Nasal Cannula 2.0 01/30/17 08:00 99.0 99.0 Weight Weight [ ] I.O. Intake and Output Intake and Output 01/30/17 07:00 Intake Total 1503 ml Output Total 0 ml Balance 1503 ml Intake Oral 230 ml IV Total 1273 ml Output Urine Total 0 ml Labs Labs Laboratory Tests Test 01/30/17 05:45 White Blood Count 8.9x10^3/uL (4.0-11.0) Red Blood Count 3.28x10^6/uL (4.30-5.70) Hemoglobin 10.3g/dL (13.0-17.5) Hematocrit 30.7% (39.0-53.0) Mean Corpuscular Volume 94fL (79-100) Mean Corpuscular Hemoglobin 31pg (25-35) Mean Corpuscular Hemoglobin Concent 33g/dL (31-37) Red Cell Distribution Width 14.0% (11.5-14.5) Platelet Count 193x10^3/uL (140-400) Neutrophils (%) (Auto) 79% (31-73) Lymphocytes (%) (Auto) 10% (24-48) Monocytes (%) (Auto) 10% (0-9) Eosinophils (%) (Auto) 1% (0-3) Basophils (%) (Auto) 1% (0-3) Neutrophils # (Auto) 7.0x10^3uL (1.8-7.7) Lymphocytes # (Auto) 0.9x10^3/uL (1.0-4.8) Monocytes # (Auto) 0.9x10^3/uL (0.0-1.1) Eosinophils # (Auto) 0.1x10^3/uL (0.0-0.7) Basophils # (Auto) 0.0x10^3/uL (0.0-0.2) Prothrombin Time 14.7SEC (11.7-14.0) Prothromb Time International Ratio 1.2 (0.8-1.1) Heparin Anti-Xa Act, Unfractionated 0.23IU/mL (0.30-0.70) Sodium Level 140mmol/L (136-145) Potassium Level 5.4mmol/L (3.5-5.1) Chloride Level 102mmol/L (98-107) Carbon Dioxide Level 27mmol/L (21-32) Anion Gap 11 (6-14) Blood Urea Nitrogen 52mg/dL (8-26) Creatinine 8.8mg/dL (0.7-1.3) Estimated GFR (Cockcroft-Gault) 6.2 Glucose Level 94mg/dL (70-99) Calcium Level 7.4mg/dL (8.5-10.1) Troponin I Quantitative 21.034ng/mL (0.000-0.055) Amylase Level 99U/L (25-115) Lipase 222U/L (73-393) Review of Systems Constitutional: yes: alert, oriented Ears/Nose/Throat: Yes: no symptom reported Eyes: Yes: no symptom reported Pulmonary: Yes no symptom reported Cardiovascular: Yes no symptom reported Gastrointestional: Yes: no symptom reported Musculoskeletal: Yes: no symptom reported Psychiatric/Neurological: Yes: no symptom reported Physical Exam General Appearance: no apparent distress Respiratory: bilateral CTA Heart: S1S2 Abdomen: soft Extremities: pulses present Neurology: alert Assessment Assessment IMP ESRD ANEMIA AMI CAD PLAN HD TOMORROW CABG PENDING D/W CTS CONT JAYDE MILLER MD Jan 30, 2017 10:54
--- NOTE | 2017-01-30 12:22 | PDOC ---
PROGRESS NOTES Chief Complaint Chief Complaint Pancreatitis ASSESSMENT AND PLAN: 1. Pancreatitis: lipase improving 2. STEMI: EKG changes (incl brief afib), troponin #2 of [address] for further cardiac W/U prior to CABG poss early next week. on heparin gtt. cont cardiac meds 3. ESRD: on HD, Dr Luz sharma 4. Anemia: stable around 10. 2/2 ESRD. EPO, iron with HD as indicated 5. Prophylaxis: PPI Vitals Vitals Vital Signs Date Time Temp Pulse Resp B/P Pulse Ox O2 Delivery O2 Flow Rate FiO2 01/30/17 11:00 84 16 126/66 96 Nasal Cannula 2.0 01/30/17 08:00 99.0 99.0 Physical Exam General: Alert, Oriented X3, Cooperative Heart: Normal S1, Normal S2, Other (irreg) Lungs: Clear Abdomen: Normal bowel sounds, Soft, No tenderness Extremities: No edema, Other (poor pulses) Skin: No breakdown Labs LABS Laboratory Tests Test 01/30/17 05:45 White Blood Count 8.9x10^3/uL (4.0-11.0) Red Blood Count 3.28x10^6/uL (4.30-5.70) Hemoglobin 10.3g/dL (13.0-17.5) Hematocrit 30.7% (39.0-53.0) Mean Corpuscular Volume 94fL (79-100) Mean Corpuscular Hemoglobin 31pg (25-35) Mean Corpuscular Hemoglobin Concent 33g/dL (31-37) Red Cell Distribution Width 14.0% (11.5-14.5) Platelet Count 193x10^3/uL (140-400) Neutrophils (%) (Auto) 79% (31-73) Lymphocytes (%) (Auto) 10% (24-48) Monocytes (%) (Auto) 10% (0-9) Eosinophils (%) (Auto) 1% (0-3) Basophils (%) (Auto) 1% (0-3) Neutrophils # (Auto) 7.0x10^3uL (1.8-7.7) Lymphocytes # (Auto) 0.9x10^3/uL (1.0-4.8) Monocytes # (Auto) 0.9x10^3/uL (0.0-1.1) Eosinophils # (Auto) 0.1x10^3/uL (0.0-0.7) Basophils # (Auto) 0.0x10^3/uL (0.0-0.2) Prothrombin Time 14.7SEC (11.7-14.0) Prothromb Time International Ratio 1.2 (0.8-1.1) Heparin Anti-Xa Act, Unfractionated 0.23IU/mL (0.30-0.70) Sodium Level 140mmol/L (136-145) Potassium Level 5.4mmol/L (3.5-5.1) Chloride Level 102mmol/L (98-107) Carbon Dioxide Level 27mmol/L (21-32) Anion Gap 11 (6-14) Blood Urea Nitrogen 52mg/dL (8-26) Creatinine 8.8mg/dL (0.7-1.3) Estimated GFR (Cockcroft-Gault) 6.2 Glucose Level 94mg/dL (70-99) Calcium Level 7.4mg/dL (8.5-10.1) Troponin I Quantitative 21.034ng/mL (0.000-0.055) Amylase Level 99U/L (25-115) Lipase 222U/L (73-393) Review of Systems Review of Systems no further CP. no SOB. undergoing HD Comment Review of Relevant WENDI GUTIERREZ MD Jan 30, 2017 12:22
--- NOTE | 2017-01-30 12:57 | PDOC ---
Subjective: Subjective: Feeling a little better. Objective: Objective: D/w Dr. Kiran, RN. [place], card cath last night w/o intervention. Possible bypass on Saturday. On clears - not eating much. Anxious. Vital Signs: Vital Signs Date Time Temp Pulse Resp B/P Pulse Ox O2 Delivery O2 Flow Rate FiO2 01/30/17 11:00 84 16 126/66 96 Nasal Cannula 2.0 01/30/17 08:00 99.0 99.0 Labs: Laboratory Tests Test 01/30/17 05:45 White Blood Count 8.9x10^3/uL Red Blood Count 3.28x10^6/uL Hemoglobin 10.3g/dL Hematocrit 30.7% Mean Corpuscular Volume 94fL Mean Corpuscular Hemoglobin 31pg Mean Corpuscular Hemoglobin Concent 33g/dL Red Cell Distribution Width 14.0% Platelet Count 193x10^3/uL Neutrophils (%) (Auto) 79% Lymphocytes (%) (Auto) 10% Monocytes (%) (Auto) 10% Eosinophils (%) (Auto) 1% Basophils (%) (Auto) 1% Neutrophils # (Auto) 7.0x10^3uL Lymphocytes # (Auto) 0.9x10^3/uL Monocytes # (Auto) 0.9x10^3/uL Eosinophils # (Auto) 0.1x10^3/uL Basophils # (Auto) 0.0x10^3/uL Prothrombin Time 14.7SEC Prothromb Time International Ratio 1.2 Heparin Anti-Xa Act, Unfractionated 0.23IU/mL Sodium Level 140mmol/L Potassium Level 5.4mmol/L Chloride Level 102mmol/L Carbon Dioxide Level 27mmol/L Anion Gap 11 Blood Urea Nitrogen 52mg/dL Creatinine 8.8mg/dL Estimated GFR (Cockcroft-Gault) 6.2 Glucose Level 94mg/dL Calcium Level 7.4mg/dL Troponin I Quantitative 21.034ng/mL Amylase Level 99U/L Lipase 222U/L Imaging: Cath 01/29/17 Conclusion This pt with severe CAD that includes LM disease, ostial Cx and distal RCA with associated thrombus has a preserved LV function and from a cardiac standpoint he needs CABGS but he has noncardiac issues that need to be consider. The pancreatitis, PVD, DM, ESRD all play a role in his condition and prognosis. Will consult Dr Holbrook to get the surgical opinion. Keep the pt heparinized due to the presence of thrombus. If he is going to have surgery I do not want to give him thrombolitics because of the surgery AND the pancreatitis. I only want to give him heparin at this time. PE: GEN: NAD LUNGS: CTAB HEART: RRR ABD: less tender NEURO/PSYCH: A & O 3, anxious A/P: STEMI -cath 01/29, possible CABG later this week -Heparin drip to restart this evening Recurrent pancreatitis -upper abd pain improved, ongoing anorexia, lipase now WNL -s/p cholecystectomy w/o h/o alcohol use GERD, h/o PUD -last EGD 2014 -on PPI Lymphocytic colitis -last colonoscopy 2015, sulfasalazine improved diarrhea (currently not taking) ESRD on HD PAD -- Continue same per GI (clears, PPI). Will review w/ Dr. Nair. TOMMY SALVADOR Jan 30, 2017 12:57
--- NOTE | 2017-01-30 15:26 | RAD ---
Carotid ultrasound, 01/30/2017: History: Peripheral vascular disease, preop for heart surgery Duplex evaluation of the carotid arteries in the neck was performed including grayscale, color-flow and spectral Doppler analysis. There are mild to moderate scattered atherosclerotic plaques in the common carotid arteries and at the carotid bifurcations, left or right. The plaques are partially calcified. The internal carotid arteries are tortuous. The carotid velocity measurements in the left neck are generally higher than those on the right in this patient. No significant focal velocity acceleration is seen on either side to suggest high-grade stenosis. The internal carotid to common carotid artery ratio on the left is 1.2 and on the right is 0.9. Antegrade flow is present in both vertebral arteries in the neck. IMPRESSION: Moderate atherosclerotic plaquing, left greater than right, with underlying luminal narrowing at the bifurcations in the 0-50% diameter range bilaterally. Note: Stenosis calculations for CT, MRA and conventional angiography are based upon determination of the distal ICA diameter in accordance with the NASCET methodology. Stenosis calculations for Doppler studies are derived from validated velocity criteria which are known to correlate with NASCET methodology of determining stenosis.
--- NOTE | 2017-01-30 15:47 | RAD ---
Bilateral lower extremity arterial ultrasound, 01/30/2017: History: Peripheral vascular disease Duplex evaluation of the major arteries in both lower extremities was performed including grayscale, color-flow and spectral Doppler analysis. There are moderate bilateral calcific plaquing. On the right, the common femoral artery is patent with a biphasic Doppler waveform. There is a velocity acceleration at the origin of the right deep femoral artery up to 421 cm/s. This suggests moderate stenosis at the origin of that vessel. There appears to be an occluded stent within the [place] right superficial femoral artery. No blood flow is seen in that region. There is reconstitution of blood flow in the right popliteal artery which demonstrates a dampened monophasic Doppler waveform. Patent posterior tibial, anterior tibial, peroneal and dorsalis pedis arteries are present in the right lower leg and at the right ankle demonstrating abnormal dampened monophasic Doppler waveforms. On the left, the common femoral artery is patent demonstrating a biphasic Doppler waveform. Patent femoral and popliteal arteries are present in the left thigh. The Doppler waveforms are monophasic. No significant focal velocity acceleration is seen in these vessels to suggest high-grade stenosis. Patent anterior tibial, posterior tibial and peroneal arteries are present in the left lower leg demonstrating monophasic Doppler waveforms. The waveforms are of better amplitude and demonstrate a good systolic upstroke compared to the right side. The left dorsalis pedis artery is patent with a similar monophasic Doppler waveform. IMPRESSION: 1. Moderate bilateral calcific plaquing. 2. Occluded stent in the right superficial femoral artery. 3. High-grade stenosis at the origin of the right profunda femoris artery. 4. Reconstitution of the right popliteal artery with abnormal, dampened monophasic Doppler waveforms at and distal to that level. 5. Mild degradation of the Doppler waveforms at and distal to the left superficial femoral artery level without evidence of high-grade focal stenosis on the left.
[2017-01-30] MEDS: HEPARIN 25,000UTS/500ML PREMIX 500 ML IV PRN (17:37)
[2017-01-30] MEDS ORDERED: HEPARIN for IV BOLUS 10,000 UNIT/10 ML VIAL. IV ONE (18:00)
--- NOTE | 2017-01-30 18:27 | CARD ---
APPROVED REPORT EXAM: Two-dimensional and M-mode echocardiogram with Doppler and color Doppler. Other Information Quality : GoodHR: 94bpm Rhythm : NSR INDICATION Post AR 2D DIMENSIONS RVDd2.6 (2.9-3.5cm)Left Atrium(2D)3.7 (1.6-4.0cm) IVSd1.1 (0.7-1.1cm)Aortic Root(2D)2.8 (2.0-3.7cm) LVDd4.8 (3.9-5.9cm)LVOT Diameter2.0 (1.8-2.4cm) PWd1.2 (0.7-1.1cm)LVDs3.4 (2.5-4.0cm) FS (%) 28.8 %SV60.5 ml LVEF(%)60.0 (>50%) Aortic Valve AoV Peak Nathanael.149.8cm/sAoV VTI21.9cm AO Peak GR.9.0mmHgLVOT VTI 19.73cm AO Mean GR.5mmHg Mitral Valve MV E Hgyqwklx59.7cm/sMV E Peak Gr.3mmHg MV DECEL [id number] A Fqtfgxaa33.2cm/s MV E Mean Gr.1mmHgE/A Ratio0.8 MV A [id number] TDI Lateral E' P. V7.40cm/sMedial E' P. V6.02cm/s E/Lateral E'10.2E/Medial E'12.6 Pulmonary Vein S1 Dnjqhyhv02.8cm/sS2 Vzbytyfa88.13cm/s D2 Nnterbaw83.1cm/sPVa [id number] LEFT VENTRICLE The left ventricle is normal size. There is concentric left ventricular hypertrophy. The left ventric ular systolic function is normal and the ejection fraction is within normal range. The Ejection Fract ion is 60%. There is hypokinesis in the basal, mid and apical inferior calix. Transmitral Doppler sohail w pattern is Grade I-abnormal relaxation pattern. No left ventricle thrombus noted on this study. RIGHT VENTRICLE The right ventricle is normal size. There is normal right ventricular wall thickness. The right ventr icular systolic function is normal. ATRIA The left atrium size is normal. The right atrium size is normal. The interatrial septum is intact wit h no evidence for an atrial septal defect or patent foramen ovale as noted on 2-D or Doppler imaging. AORTIC VALVE The aortic valve is mildly The aortic valve is trileaflet. Doppler and Color Flow revealed no signifi cant aortic regurgitation. There is no significant aortic valvular stenosis. MITRAL VALVE Mitral annular calcification is mild. The mitral valve leaflets are thickened. There is no evidence o f mitral valve prolapse. There is no mitral valve stenosis. Doppler and Color Flow revealed mild mitr al regurgitation. TRICUSPID VALVE The tricuspid valve is normal in structure and function. Doppler and Color Flow revealed no tricuspid valve regurgitation noted. There is no pulmonary hypertension. PULMONIC VALVE Doppler and Color Flow revealed trace pulmonic valvular regurgitation. There is no pulmonic valvular stenosis. GREAT VESSELS The aortic root is normal in size. The ascending aorta is normal in size. The pulmonary artery is nor mal. The IVC is normal in size and collapses >50% with inspiration. PERICARDIAL EFFUSION There is no evidence of significant pericardial effusion. Critical Notification Critical Value: No <Conclusion> The left ventricular systolic function is normal and the ejection fraction is within normal range. The Ejection Fraction is 60%. There is concentric left ventricular hypertrophy. Transmitral Doppler flow pattern is Grade I-abnormal relaxation pattern. The left atrium size is normal. The right atrium size is normal. The aortic valve is mildly The aortic valve is trileaflet. Doppler and Color Flow revealed mild mitral regurgitation. Mitral annular calcification is mild. The mitral valve leaflets are thickened. The tricuspid valve is normal in structure and function. Doppler and Color Flow revealed trace pulmonic valvular regurgitation. There is no evidence of significant pericardial effusion.
--- NOTE | 2017-01-30 20:11 | PDOC ---
PROGRESS NOTES Chief Complaint Chief Complaint Pancreatitis ASSESSMENT AND PLAN: 1. Pancreatitis: lipase improving, asymptomatic. recurrent panc w/o EtOH hx, and s/p CCY 2. STEMI: EKG changes (incl brief afib), troponin #2 of [address] Kiran [facility] consulted. cath last nite , with plan for further cardiac W/ U prior to CABG poss early next week. on heparin gtt. cont cardiac meds 3. ESRD: on HD, Dr Luz sharma 4. Anemia: stable around 10. 2/2 ESRD. EPO, iron with HD as indicated 5. Prophylaxis: PPI 6. Disp: transfer to CCU Vitals Vitals Vital Signs Date Time Temp Pulse Resp B/P Pulse Ox O2 Delivery O2 Flow Rate FiO2 01/30/17 19:22 8 91 Nasal Cannula 01/30/17 19:00 84 144/64 2.0 01/30/17 12:00 98.2 98.2 Physical Exam General: Alert, Oriented X3, Cooperative Heart: Regular rate, Normal S1, Normal S2, Other (tachy and irregular) Lungs: Clear Abdomen: Other (BS (+), mild tenderness) Extremities: No edema, Other (poor pulses) Skin: No breakdown Labs LABS Laboratory Tests Test 01/29/17 21:00 01/30/17 05:45 Nasal Screen MRSA (PCR) Negative (Negative) White Blood Count 8.9x10^3/uL (4.0-11.0) Red Blood Count 3.28x10^6/uL (4.30-5.70) Hemoglobin 10.3g/dL (13.0-17.5) Hematocrit 30.7% (39.0-53.0) Mean Corpuscular Volume 94fL (79-100) Mean Corpuscular Hemoglobin 31pg (25-35) Mean Corpuscular Hemoglobin Concent 33g/dL (31-37) Red Cell Distribution Width 14.0% (11.5-14.5) Platelet Count 193x10^3/uL (140-400) Neutrophils (%) (Auto) 79% (31-73) Lymphocytes (%) (Auto) 10% (24-48) Monocytes (%) (Auto) 10% (0-9) Eosinophils (%) (Auto) 1% (0-3) Basophils (%) (Auto) 1% (0-3) Neutrophils # (Auto) 7.0x10^3uL (1.8-7.7) Lymphocytes # (Auto) 0.9x10^3/uL (1.0-4.8) Monocytes # (Auto) 0.9x10^3/uL (0.0-1.1) Eosinophils # (Auto) 0.1x10^3/uL (0.0-0.7) Basophils # (Auto) 0.0x10^3/uL (0.0-0.2) Prothrombin Time 14.7SEC (11.7-14.0) Prothromb Time International Ratio 1.2 (0.8-1.1) Heparin Anti-Xa Act, Unfractionated 0.23IU/mL (0.30-0.70) Sodium Level 140mmol/L (136-145) Potassium Level 5.4mmol/L (3.5-5.1) Chloride Level 102mmol/L (98-107) Carbon Dioxide Level 27mmol/L (21-32) Anion Gap 11 (6-14) Blood Urea Nitrogen 52mg/dL (8-26) Creatinine 8.8mg/dL (0.7-1.3) Estimated GFR (Cockcroft-Gault) 6.2 Glucose Level 94mg/dL (70-99) Calcium Level 7.4mg/dL (8.5-10.1) Troponin I Quantitative 21.034ng/mL (0.000-0.055) Amylase Level 99U/L (25-115) Lipase 222U/L (73-393) Review of Systems Review of Systems no further chest or abd pain, no SOB. Nutrition Consultation Dietary Evaluation: Recommendations by RD: Increase Calorie Intake Comments: Boost breeze TID - 250kcal and 9g protein per serving Expected Outcomes/Goals: diet advancement Malnutrition Findings: Weight Status: Overweight WENDI GUTIERREZ MD Jan 30, 2017 20:11
[2017-01-30] MEDS: LOSARTAN POTASSIUM 50 MG TABLET. PO SCH (21:00)
[2017-01-30] MEDS: TAMSULOSIN 0.4 MG CAP.ER.24H. PO SCH (21:05)
--- NOTE | 2017-01-30 21:59 | CONS ---
DATE OF CONSULTATION: 01/30/2017 CONSULTING PHYSICIAN: Dr. Leighton Kiran. CLINICAL HISTORY: The patient is a 61-year-old male with known multiple medical problems including hypertension, polycystic kidney disease, coronary artery disease, peripheral vascular occlusive disease, previous history of pancreatitis and end-stage renal disease on dialysis for many years. The patient was recently admitted on the with complaints of abdominal pain. He had an elevated lipase level consistent with pancreatitis. He was undergoing dialysis yesterday and apparently developed chest pain while in the hospital. His EKG demonstrated evidence of inferior wall myocardial infarction. He went to the [facility] emergently, was found to have multivessel coronary artery disease as well as left main coronary artery disease. There was some thrombus present at the takeoff of the PDA. The patient has been maintained on heparin since then. I have been asked to see him now to consider coronary bypass grafting. PAST MEDICAL HISTORY: As noted above. 1. Hypertension. 2. Coronary artery disease with prior stent by Dr. Kiran 4 years ago. 3. Peripheral vascular occlusive disease with prior stent in the left leg per patient. 4. Polycystic kidney disease. 5. End-stage renal disease. 6. History of pancreatitis. OPERATIONS IN THE PAST: 1. Appendectomy. 2. Cholecystectomy. 3. Left arm shunt. ALLERGIES: There are no known drug allergies. FAMILY HISTORY: Notable for diabetes. SOCIAL HISTORY: The patient is retired now. He has had multiple jobs in the past. He lives with his in [address] [place] [address]. He is a sufficiently active individual. MEDICATIONS: At home have included Flomax, isosorbide, Plavix. He is also on amlodipine, hydralazine, Xanax, losartan, Lopressor and aspirin. REVIEW OF SYSTEMS: This patient is a difficult historian and has a known history of noncompliance in the past. PHYSICAL EXAMINATION: GENERAL: Today reveals an awake, alert male, appears in no active distress. VITAL SIGNS: Heart rate 84 and sinus rhythm. Blood pressure is 110/80. He is on room air with good saturations. HEENT: Unremarkable. NECK: Shows no JVD. There are no bruits noted. CARDIOVASCULAR: Shows a regular rhythm and rate without murmur. LUNGS: Clear and equal bilaterally. ABDOMEN: His abdomen is soft, it is mildly tender. SKIN: There is a port in his left chest wall. There is an AV fistula in his left arm. EXTREMITIES: Legs show no edema. Pedal pulses are palpable. NEUROLOGIC: Without focal abnormalities. LABORATORY DATA: Notable for a troponin jump to 21 this morning. His lipase on admission was 736, has now gone to 222. Chemistries are noted. Potassium is 5.4. ASSESSMENT: This is a 61-year-old male with multiple medical problems, now presents with a complex setting with acute pancreatitis and also acute myocardial infarction. I have reviewed his left heart catheterization and agreed that coronary bypass grafting would be appropriate for him. We will need to wait at least 5 days off of Plavix. We also need to get an echo to assess his LV function after his acute [place]. We will also need further evaluation with a carotid duplex and lower extremity ABIs as well. I have discussed risks, benefits, alternatives of coronary bypass grafting with the patient. He appears to understand and is amenable to proceed. I am anticipating either this Saturday or next week for bypass surgery. Thank you very much for asking me to see this very pleasant gentleman in consultation. ZUHAIR DÍAZ MD DR: MARÍA ELENA/alyson JOB#: [id number] / [id number]
[2017-01-31] VITALS (17 sets, daily range): BP systolic 103–158; BP diastolic 43–87
[2017-01-31] MEDS: IV NORMAL SALINE 1000ML BAG 1,000 ML IV SCH ×3 (02:45→23:30)
[2017-01-31 05:19] LABS: BASO % 1 % (0-3); EOS % 1 % (0-3); HEMATOCRIT 31.2 % (39.0-53.0); HEMOGLOBIN 10.4 g/dL (13.0-17.5); LYMPH # 0.8 x10^3/uL (1.0-4.8); LYMPH % 10 % (24-48); MEAN CORPUSCULAR HEMOGLOBIN 31 pg (25-35); MEAN CORPUSCULAR HGB CONC 33 g/dL (31-37); MEAN CORPUSCULAR VOLUME 93 fL (79-100); MONO % 12 % (0-9); NEUT % 77 % (31-73); PLATELET COUNT 186 x10^3/uL (140-400); RED BLOOD COUNT 3.34 x10^6/uL (4.30-5.70); RED CELL DISTRIBUTION WIDTH 14.2 % (11.5-14.5); WHITE BLOOD COUNT 8.8 x10^3/uL (4.0-11.0)
[2017-01-31 05:40] LABS: CALCIUM 7.6 mg/dL (8.5-10.1); CREATININE 11.2 mg/dL (0.7-1.3); GFR 4.7
[2017-01-31 05:44] LABS: POTASSIUM 6.9 mmol/L (3.5-5.1)
[2017-01-31] MEDS: DIPHENHYDRAMINE 50 MG/ML VIAL IVP PRN ×2 (06:15→19:55)
[2017-01-31] MEDS ORDERED: DEXTROSE 50% 25 GM / 50ML DISP.SYRIN. IV ONE ×2 (06:30→09:00)
[2017-01-31] MEDS ORDERED: INSULIN REGULAR 100 UNIT/ML 10ML VIAL. IV ONE (06:30)
[2017-01-31] MEDS: DOCUSATE SODIUM 100 MG CAPSULE PO SCH ×2 (09:00→21:51)
[2017-01-31] MEDS: ISOSORBIDE MONONITRATE ER 30 MG TAB.ER.24H PO SCH (09:00)
[2017-01-31] MEDS: FUROSEMIDE 80 MG TABLET PO SCH ×2 (09:00→14:00)
[2017-01-31] MEDS: AMLODIPINE BESYLATE 10 MG TABLET PO SCH ×2 (09:00→21:54)
[2017-01-31] MEDS: HYDRALAZINE 50 MG TABLET PO SCH ×3 (09:00→21:52)
[2017-01-31] MEDS: CLONIDINE HCL 0.3 MG TABLET PO SCH (09:00)
[2017-01-31] MEDS: METOPROLOL TART IMMED RELEASE 50 MG TABLET PO SCH ×2 (09:00→21:53)
[2017-01-31] MEDS: CALCIUM CARBONATE 500 MG TAB.CHEW PO SCH ×3 (09:11→18:09)
[2017-01-31] MEDS: PANTOPRAZOLE 40 MG TABLET. PO SCH (09:11)
[2017-01-31] MEDS: PAROXETINE 20 MG TABLET. PO SCH (09:12)
[2017-01-31] MEDS: FOLIC/VIT B COMP W-C (RENAL) TABLET. PO SCH (09:12)
[2017-01-31] MEDS ORDERED: IV NORMAL SALINE 1000ML BAG 1,000 ML IV PRN (09:28)
[2017-01-31] MEDS ORDERED: ALBUMIN HUMAN 25% 200 ML IV PRN (09:30)
[2017-01-31] MEDS ORDERED: ACETAMINOPHEN 500 MG TABLET PO PRN (09:30)
[2017-01-31] MEDS ORDERED: DIPHENHYDRAMINE 50 MG/ML VIAL IV PRN (09:30)
[2017-01-31] MEDS ORDERED: DIALYSIS PATIENT. MC PRN (09:30)
--- NOTE | 2017-01-31 10:12 | PDOC ---
G I PROGRESS NOTE Reason for Follow-up Abd pain/pancreatitis Subjective ABd pain resolved Physical Exam Lungs decreased BS CV S1 S2 ABD distended, +BS, soft Review of Relevant I have reviewed the following items dionte (where applicable) has been applied. Labs Laboratory Tests Test 01/29/17 21:00 01/30/17 05:45 01/31/17 05:10 01/31/17 08:57 Nasal Screen MRSA (PCR) Negative (Negative) White Blood Count 8.9x10^3/uL (4.0-11.0) 8.8x10^3/uL (4.0-11.0) Red Blood Count 3.28x10^6/uL (4.30-5.70) 3.34x10^6/uL (4.30-5.70) Hemoglobin 10.3g/dL (13.0-17.5) 10.4g/dL (13.0-17.5) Hematocrit 30.7% (39.0-53.0) 31.2% (39.0-53.0) Mean Corpuscular Volume 94fL (79-100) 93fL (79-100) Mean Corpuscular Hemoglobin 31pg (25-35) 31pg (25-35) Mean Corpuscular Hemoglobin Concent 33g/dL (31-37) 33g/dL (31-37) Red Cell Distribution Width 14.0% (11.5-14.5) 14.2% (11.5-14.5) Platelet Count 193x10^3/uL (140-400) 186x10^3/uL (140-400) Neutrophils (%) (Auto) 79% (31-73) 77% (31-73) Lymphocytes (%) (Auto) 10% (24-48) 10% (24-48) Monocytes (%) (Auto) 10% (0-9) 12% (0-9) Eosinophils (%) (Auto) 1% (0-3) 1% (0-3) Basophils (%) (Auto) 1% (0-3) 1% (0-3) Neutrophils # (Auto) 7.0x10^3uL (1.8-7.7) 6.7x10^3uL (1.8-7.7) Lymphocytes # (Auto) 0.9x10^3/uL (1.0-4.8) 0.8x10^3/uL (1.0-4.8) Monocytes # (Auto) 0.9x10^3/uL (0.0-1.1) 1.1x10^3/uL (0.0-1.1) Eosinophils # (Auto) 0.1x10^3/uL (0.0-0.7) 0.1x10^3/uL (0.0-0.7) Basophils # (Auto) 0.0x10^3/uL (0.0-0.2) 0.0x10^3/uL (0.0-0.2) Prothrombin Time 14.7SEC (11.7-14.0) Prothromb Time International Ratio 1.2 (0.8-1.1) Heparin Anti-Xa Act, Unfractionated 0.23IU/mL (0.30-0.70) 0.45IU/mL (0.30-0.70) Sodium Level 140mmol/L (136-145) 137mmol/L (136-145) Potassium Level 5.4mmol/L (3.5-5.1) 6.9mmol/L (3.5-5.1) Chloride Level 102mmol/L (98-107) 97mmol/L (98-107) Carbon Dioxide Level 27mmol/L (21-32) 22mmol/L (21-32) Anion Gap 11 (6-14) 18 (6-14) Blood Urea Nitrogen 52mg/dL (8-26) 67mg/dL (8-26) Creatinine 8.8mg/dL (0.7-1.3) 11.2mg/dL (0.7-1.3) Estimated GFR (Cockcroft-Gault) 6.2 4.7 Glucose Level 94mg/dL (70-99) 70mg/dL (70-99) Calcium Level 7.4mg/dL (8.5-10.1) 7.6mg/dL (8.5-10.1) Troponin I Quantitative 21.034ng/mL (0.000-0.055) Amylase Level 99U/L (25-115) Lipase 222U/L (73-393) Glucose (Fingerstick) 28mg/dL (70-99) Test 01/31/17 09:06 Glucose (Fingerstick) 165mg/dL (70-99) Laboratory Tests Test 01/31/17 05:10 01/31/17 08:57 01/31/17 09:06 White Blood Count 8.8x10^3/uL (4.0-11.0) Red Blood Count 3.34x10^6/uL (4.30-5.70) Hemoglobin 10.4g/dL (13.0-17.5) Hematocrit 31.2% (39.0-53.0) Mean Corpuscular Volume 93fL (79-100) Mean Corpuscular Hemoglobin 31pg (25-35) Mean Corpuscular Hemoglobin Concent 33g/dL (31-37) Red Cell Distribution Width 14.2% (11.5-14.5) Platelet Count 186x10^3/uL (140-400) Neutrophils (%) (Auto) 77% (31-73) Lymphocytes (%) (Auto) 10% (24-48) Monocytes (%) (Auto) 12% (0-9) Eosinophils (%) (Auto) 1% (0-3) Basophils (%) (Auto) 1% (0-3) Neutrophils # (Auto) 6.7x10^3uL (1.8-7.7) Lymphocytes # (Auto) 0.8x10^3/uL (1.0-4.8) Monocytes # (Auto) 1.1x10^3/uL (0.0-1.1) Eosinophils # (Auto) 0.1x10^3/uL (0.0-0.7) Basophils # (Auto) 0.0x10^3/uL (0.0-0.2) Heparin Anti-Xa Act, Unfractionated 0.45IU/mL (0.30-0.70) Sodium Level 137mmol/L (136-145) Potassium Level 6.9mmol/L (3.5-5.1) Chloride Level 97mmol/L (98-107) Carbon Dioxide Level 22mmol/L (21-32) Anion Gap 18 (6-14) Blood Urea Nitrogen 67mg/dL (8-26) Creatinine 11.2mg/dL (0.7-1.3) Estimated GFR (Cockcroft-Gault) 4.7 Glucose Level 70mg/dL (70-99) Calcium Level 7.6mg/dL (8.5-10.1) Glucose (Fingerstick) 28mg/dL (70-99) 165mg/dL (70-99) Medications Current Medications Hydromorphone HCl (Dilaudid) 1 mg 1X ONCE IV Last administered on 01/28/17 23 :57; Start 01/28/17 at 23:30; Stop 01/28/17 at 23:31; Status DC Ondansetron HCl 4 mg 4 mg 1X ONCE IV Last administered on 01/28/17 23:57; Start 01/28/17 at 23:30; Stop 01/28/17 at 23:31; Status DC Sodium Chloride (Iv Sodium Chloride 0.9% 500ml Bag) 500 ml @ 0 mls/hr 1X ONCE IV Last administered on 01/28/17 23:39; Start 01/28/17 at 23:30; Stop at 23:31; Status DC Diphenhydramine HCl (Benadryl) 50 mg 1X ONCE IVP Last administered on 00:29; Start 01/29/17 at 00:30; Stop 01/29/17 at 00:31; Status DC Diphenhydramine HCl (Benadryl) 50 mg STK-MED ONCE .ROUTE ; Start 01/29/17 at 00: 26; Stop 01/29/17 at 00:27; Status DC Morphine Sulfate 4 mg 1X ONCE IV Last administered on 01/29/17 03:55; Start 01/29/17 at 02:15; Stop 01/29/17 at 02:16; Status DC Ondansetron HCl (Zofran) 4 mg PRN Q8HRS PRN IV NAUSEA/VOMITING; Start 01/29/17 at 03:00; Stop 01/30/17 at 02:59; Status DC Morphine Sulfate 4 mg 4 mg PRN Q2HR PRN IV PAIN Last administered on 01/29/17 09:59; Start 01/29/17 at 03:00; Stop 01/29/17 at 11:47; Status DC Sodium Chloride (Iv Sodium Chloride 0.9% 1000ml Bag) 1,000 ml @ 50 mls/hr Q20H IV Last administered on 01/30/17 07:28; Start 01/29/17 at 02:12; Stop at 02:11; Status DC Alprazolam (Xanax) 0.5 mg PRN Q6HRS PRN PO ANXIETY / AGITATION Last administered on 01/30/17 19:21; Start 01/29/17 at 11:30 Amlodipine Besylate (Norvasc) 10 mg BID PO ; Start 01/29/17 at 12:00 Aspirin (Children'S Aspirin) 324 mg DAILY PO ; Start 01/29/17 at 12:00; Stop at 18:32; Status DC Calcium Carbonate/ Glycine (Tums) 800 mg TIDAC PO Last administered on 09:11; Start 01/29/17 at 11:30 Clonidine HCl (Catapres) 0.3 mg DAILY PO ; Start 01/30/17 at 09:00 Clopidogrel Bisulfate (Plavix) 75 mg DAILY PO ; Start 01/29/17 at 12:00; Stop at 09:45; Status DC Vitamin B Complex/ Vitamin C (Nephro-Chilo) 1 tab DAILY PO Last administered on 01/31/17 09:12; Start 01/29/17 at 12:00 Furosemide (Lasix) 80 mg [id number] PO Last administered on 01/30/17 12:59; Start 01/29/17 at 14:00 Acetaminophen/ Hydrocodone Bitart (Lortab 5/325) 1 tab PRN Q6HRS PRN PO PAIN; Start 01/29/17 at 11:30; Stop 01/29/17 at 18:58; Status DC Isosorbide Mononitrate (Imdur) 30 mg DAILY PO ; Start 01/29/17 at 12:00 Paroxetine HCl (Paxil) 40 mg DAILY PO Last administered on 01/31/17 09:12; Start 01/29/17 at 12:00 Tamsulosin HCl (Flomax) 0.4 mg QHS PO Last administered on 01/30/17 21:05; Start 01/29/17 at 21:00 Hydralazine HCl (Apresoline) 100 mg TID PO ; Start 01/29/17 at 14:00 Losartan Potassium (Cozaar) 100 mg QHS PO ; Start 01/29/17 at 21:00 Metoprolol Tartrate (Lopressor) 100 mg BID PO Last administered on 01/30/17 21 :05; Start 01/29/17 at 12:00 Pantoprazole Sodium (Protonix) 40 mg DAILYAC PO Last administered on 01/31/17 09:11; Start 01/29/17 at 12:00 Darbepoetin Percy (Aranesp) 60 mcg [id number] SQ ; Start 02/02/17 at 21:00 Morphine Sulfate 6 mg 6 mg PRN Q2HR PRN IV PAIN Last administered on 01/30/17 19:22; Start 01/29/17 at 11:45 Sodium Chloride (Iv Sodium Chloride 0.9% 1000ml Bag) 1,000 ml @ 1,000 mls/hr Q1H PRN IV hypotension; Start 01/29/17 at 12:55; Stop 01/29/17 at 18:54; Status DC Diphenhydramine HCl (Benadryl) 25 mg 1X PRN PRN IV ITCHING Last administered on 01/29/17 19:12; Start 01/29/17 at 13:00; Stop 01/30/17 at 12:59; Status DC Diphenhydramine HCl (Benadryl) 25 mg 1X PRN PRN IV ITCHING Last administered on 01/29/17 13:16; Start 01/29/17 at 13:00; Stop 01/30/17 at 12:59; Status DC Info (PHARMACY MONITORING -- do not chart) 1 each PRN DAILY PRN MC SEE COMMENTS ; Start 01/29/17 at 13:00; Status UNV Info (PHARMACY MONITORING -- do not chart) 1 each PRN DAILY PRN MC SEE COMMENTS ; Start 01/29/17 at 13:00 Nitroglycerin (Nitrostat) 0.4 mg STK-MED ONCE SL ; Start 01/29/17 at 16:55; Stop 01/29/17 at 16:56; Status DC Heparin Sodium (Porcine) 4000 unit 4,000 unit 1X ONCE IV Last administered on 01/29/17 17:37; Start 01/29/17 at 17:30; Stop 01/29/17 at 17:31; Status DC Heparin Sodium/ Sodium Chloride 500 ml @ As Directed STK-MED ONCE .ROUTE ; Start 01/29/17 at 17:54; Stop 01/29/17 at 17:55; Status DC Lidocaine HCl 20 ml STK-MED ONCE .ROUTE ; Start 01/29/17 at 17:54; Stop at 17:55; Status DC Iodixanol (Visipaque 320) 100 ml STK-MED ONCE .ROUTE ; Start 01/29/17 at 17:54; Stop 01/29/17 at 17:55; Status DC Metoprolol Tartrate (Lopressor) 5 mg STK-MED ONCE .ROUTE ; Start 01/29/17 at 18: 05; Stop 01/29/17 at 18:06; Status DC Fentanyl Citrate (Fentanyl 2ml Vial) 100 mcg STK-MED ONCE .ROUTE ; Start at 18:05; Stop 01/29/17 at 18:06; Status DC Midazolam HCl 2 mg 2 mg STK-MED ONCE .ROUTE ; Start 01/29/17 at 18:05; Stop at 18:06; Status DC Heparin Sodium/ Dextrose 500 ml @ As Directed STK-MED ONCE IV ; Start 01/29/17 at 18:18; Stop 01/29/17 at 18:19; Status DC Heparin Sodium (Porcine) 10,000 unit STK-MED ONCE .ROUTE ; Start 01/29/17 at 18: 18; Stop 01/29/17 at 18:19; Status DC Metoprolol Tartrate (Lopressor) 5 mg STK-MED ONCE .ROUTE ; Start 01/29/17 at 18: 25; Stop 01/29/17 at 18:26; Status DC Heparin Sodium/ Sodium Chloride 1,000 unit 1X ONCE IART Last administered on 18:51; Start 01/29/17 at 18:45; Stop 01/29/17 at 18:53; Status DC Heparin Sodium/ Sodium Chloride 1,000 unit 1X ONCE IART Last administered on 18:51; Start 01/29/17 at 18:45; Stop 01/29/17 at 18:53; Status DC Midazolam HCl (Versed) 1 mg 1X ONCE IV Last administered on 01/29/17 18:53; Start 01/29/17 at 18:45; Stop 01/29/17 at 18:53; Status DC Fentanyl Citrate (Fentanyl 2ml Vial) 50 mcg 1X ONCE IV Last administered on 18:53; Start 01/29/17 at 18:45; Stop 01/29/17 at 18:53; Status DC Iodixanol (Visipaque 320) 105 ml 1X ONCE IART Last administered on 01/29/17 18:52; Start 01/29/17 at 18:45; Stop 01/29/17 at 18:53; Status DC Heparin Sodium (Porcine) 4000 unit 4,000 unit 1X ONCE IV Last administered on 01/29/17 18:53; Start 01/29/17 at 18:45; Stop 01/29/17 at 18:53; Status DC Heparin Sodium/ Dextrose 500 ml @ 20 mls/hr CONT PRN IV SEE I/O RECORD; Start 01/29/17 at 18:24; Stop 01/30/17 at 14:01; Status DC Metoprolol Tartrate (Lopressor) 10 mg 1X ONCE IVP Last administered on 18:52; Start 01/29/17 at 18:45; Stop 01/29/17 at 18:53; Status DC Lidocaine HCl 10 ml 1X ONCE IJ Last administered on 01/29/17 18:52; Start at 18:45; Stop 01/29/17 at 18:53; Status DC Sodium Chloride (Normal Saline Flush) 3 ml QSHIFT PRN IV AFTER MEDS AND BLOOD DRAWS; Start 01/29/17 at 18:45 Docusate Sodium (Colace) 100 mg BID PO ; Start 01/29/17 at 21:00 Fentanyl Citrate (Fentanyl 2ml Vial) 50 mcg PRN Q1HR PRN IV Moderate or severe pain Last administered on 01/29/17 23:25; Start 01/29/17 at 18:45 Cyclobenzaprine HCl (Flexeril) 10 mg PRN TID PRN PO MUSCLE SPASMS Last administered on 01/30/17 05:22; Start 01/29/17 at 18:45 Ondansetron HCl (Zofran) 4 mg PRN Q6HRS PRN IV NAUSEA/VOMITING; Start 01/29/17 at 18:45 Nitroglycerin (Nitrostat) 0.4 mg PRN Q5MIN PRN SL CHEST PAIN; Start 01/29/17 at 18:45 Acetaminophen/ Hydrocodone Bitart (Lortab 5/325) 1 tab PRN Q4HRS PRN PO MILD PAIN Last administered on 01/30/17 05:21; Start 01/29/17 at 18:45 Diltiazem HCl 5 mg 5 mg 1X ONCE IVP Last administered on 01/29/17 19:23; Start 01/29/17 at 19:15; Stop 01/29/17 at 19:18; Status DC Diltiazem HCl/ Dextrose (Cardizem) 125 ml @ 0 mls/hr CONT PRN IV SEE I/O RECORD ; Start 01/29/17 at 19:15 Diphenhydramine HCl (Benadryl) 50 mg PRN Q8HRS PRN IVP ITCHING Last administered on 01/31/17 06:15; Start 01/29/17 at 19:15 Nitroglycerin (Nitrostat) 0.4 mg STK-MED ONCE SL ; Start 01/29/17 at 17:00; Stop 01/30/17 at 08:02; Status DC Info (Anti-Coagulation Monitoring By Pharmacy) 1 each PRN DAILY PRN MC SEE COMMENTS Last administered on 01/30/17 10:49; Start 01/30/17 at 10:45 Heparin Sodium (Porcine) 3000 unit 3,000 unit 1X ONCE IV Last administered on 01/30/17 17:36; Start 01/30/17 at 18:00; Stop 01/30/17 at 18:01; Status DC Heparin Sodium/ Dextrose 500 ml @ 24 mls/hr CONT PRN IV SEE I/O RECORD Last administered on 01/30/17 17:37; Start 01/30/17 at 18:00 Sodium Chloride (Iv Sodium Chloride 0.9% 1000ml Bag) 1,000 ml @ 50 mls/hr Q20H IV Last administered on 01/31/17 02:45; Start 01/31/17 at 02:45 Dextrose 25 gm 1X ONCE IV Last administered on 01/31/17 06:05; Start at 06:30; Stop 01/31/17 at 06:31; Status DC Insulin Human Regular (Novolin R Vial) 10 unit 1X ONCE IV Last administered on 01/31/17 06:09; Start 01/31/17 at 06:30; Stop 01/31/17 at 06:31; Status DC Dextrose 25 gm 25 gm 1X ONCE IV Last administered on 01/31/17 09:04; Start at 09:00; Stop 01/31/17 at 09:03; Status DC Sodium Chloride 1,000 ml @ 1,000 mls/hr Q1H PRN IV hypotension; Start 01/31/17 at 09:28; Stop 01/31/17 at 15:27 Albumin Human (Albuminar) 200 ml @ 200 mls/hr 1X PRN PRN IV Hypotension; Start 01/31/17 at 09:30; Stop 01/31/17 at 15:29 Acetaminophen (Tylenol) 500 mg 1X PRN PRN PO MILD PAIN / TEMP; Start 01/31/17 at 09:30; Stop 02/01/17 at 09:29 Diphenhydramine HCl (Benadryl) 25 mg 1X PRN PRN IV ITCHING; Start 01/31/17 at 09:30; Stop 02/01/17 at 09:29 Diphenhydramine HCl (Benadryl) 25 mg 1X PRN PRN IV ITCHING; Start 01/31/17 at 09:30; Stop 02/01/17 at 09:29 Info (PHARMACY MONITORING -- do not chart) 1 each PRN DAILY PRN MC SEE COMMENTS ; Start 01/31/17 at 09:30; Status UNV Active Scripts Active Clopidogrel (Clopidogrel Bisulfate) 75 Mg Tablet 1 Tab PO DAILY Isosorbide Mononitrate Er (Isosorbide Mononitrate) 30 Mg Tab.er.24h 30 Mg PO DAILY Flomax (Tamsulosin Hcl) 0.4 Mg Cap.er.24h 0.4 Mg PO QHS Reported Hydrocodone-Apap 5-325 (Hydrocodone Bit/Acetaminophen) 1 Each Tablet 1 Tab PO PRN Q6HRS PRN Furosemide 80 Mg Tablet 1 Tab PO BID Nephro-Chilo Tablet (Folic Acid/Vitamin B Comp W-C) 0.8 Mg Tablet 1 Tab PO DAILY Paroxetine Hcl 20 Mg Tablet 40 Mg PO DAILY Tums (Calcium Carbonate) 200 Mg Tab.chew 800 Mg PO TIDAC Omeprazole Magnesium 20 Mg Capsule.dr 20 Mg PO DAILY Clonidine Hcl 0.3 Mg Tablet 1 Tab PO DAILY Hydralazine Hcl 100 Mg Tablet 100 Mg PO TID LAST DOSE: 02/24/16 AFTERNOON NEXT DOSE: 02/24/16 BEDTIME Amlodipine Besylate 10 Mg Tablet 10 Mg PO BID LAST DOSE: 02/24/16 AM NEXT DOSE: 02/25/16 AM Xanax (Alprazolam) 0.5 Mg Tablet 0.5 Mg PO Q6HRS PRN LAST DOSE: 02/23/16 BEDTIME NEXT DOSE: 02/24/16 BEDTIME Losartan Potassium 100 Mg Tablet 100 Mg PO HS LAST DOSE: 02/23/16 BEDTIME NEXT DOSE: 02/24/16 BEDTIME Metoprolol Tartrate 100 Mg Tablet 100 Mg PO BID LAST DOSE: 02/24/16 AM NEXT DOSE: 02/24/16 BEDTIME Lillian Chewable (Aspirin) 81 Mg Tab.chew 324 Mg PO DAILY LAST DOSE: 02/24/16 AM NEXT DOSE: 02/25/16 AM Vitals/I & O Vital Sign - Last 24 Hours 01/30/17 01/30/17 01/30/17 01/30/17 11:00 12:00 12:00 13:00 Temp 98.2 98.2 Pulse 84 94 89 Resp 16 34 32 B/P 126/66 129/66 148/67 Pulse Ox 96 92 100 O2 Delivery Nasal Cannula Room Air Room Air Nasal Cannula O2 Flow Rate 2.0 2.0 01/30/17 01/30/17 01/30/17 01/30/17 14:00 15:00 16:00 16:00 Pulse 89 86 86 Resp 13 14 13 B/P 132/67 145/80 146/68 Pulse Ox 89 99 92 O2 Delivery Nasal Cannula Nasal Cannula Nasal Cannula Nasal Cannula O2 Flow Rate 2.0 2.0 2.0 2.0 01/30/17 01/30/17 01/30/17 01/30/17 17:00 18:00 19:00 19:22 Pulse 87 87 84 Resp 13 9 9 8 B/P 106/72 143/65 144/64 Pulse Ox 96 98 91 91 O2 Delivery Nasal Cannula Nasal Cannula Nasal Cannula Nasal Cannula O2 Flow Rate 2.0 2.0 2.0 3/15/17 3/15/17 3/15/17 3/15/17 20:00 20:00 21:00 21:00 Temp 98.4 98.4 Pulse 88 86 86 Resp 11 B/P 143/72 140/72 140/72 Pulse Ox 93 O2 Delivery Nasal Cannula Nasal Cannula O2 Flow Rate 2.0 2.0 01/30/17 01/30/17 01/30/17 01/30/17 21:00 21:00 21:05 22:00 Pulse 86 86 85 Resp 15 9 B/P 140/72 140/72 140/72 Pulse Ox 93 O2 Delivery Nasal Cannula O2 Flow Rate 2.0 01/30/17 01/30/17 01/31/17 01/31/17 22:00 23:00 00:00 00:00 Temp 98.3 98.3 Pulse 82 81 82 Resp 16 11 18 B/P 115/69 134/71 145/67 Pulse Ox 96 96 97 O2 Delivery Nasal Cannula Nasal Cannula Nasal Cannula Nasal Cannula O2 Flow Rate 2.0 2.0 4.0 2.0 01/31/17 01/31/17 01/31/17 01/31/17 01:00 02:00 03:00 04:00 Pulse 84 84 85 Resp 16 20 23 B/P 131/87 122/67 143/70 Pulse Ox 99 97 99 O2 Delivery Nasal Cannula Nasal Cannula Nasal Cannula Nasal Cannula O2 Flow Rate 4.0 4.0 4.0 2.0 01/31/17 01/31/17 01/31/17 04:00 05:00 06:00 Temp 99.4 99.4 Pulse 89 101 72 Resp 29 22 16 B/P 143/64 148/69 158/74 Pulse Ox 94 94 97 O2 Delivery Nasal Cannula Nasal Cannula Nasal Cannula O2 Flow Rate 4.0 4.0 4.0 Intake and Output 01/30/17 01/30/17 01/31/17 15:00 23:00 07:00 Intake Total 600 ml 400 ml 1427 ml Output Total 0 ml 0 ml Balance 600 ml 400 ml 1427 ml Problem List Problems Medical Problems: (1) Flank pain Status: Acute (2) Pancreatitis Status: Acute Assessment Acute pancreatitis- S/p erin, clinically and biochemically improved OHD- S/P GA, CABG tentatively next week,cpm NGOZI SANCHEZ MD Jan 31, 2017 10:12
[2017-01-31] MEDS: DIPHENHYDRAMINE 50 MG/ML VIAL IV PRN ×2 (10:34→18:05)
--- NOTE | 2017-01-31 11:28 | PDOC ---
Renal-Progress Notes Vitals Vitals Vital Signs Date Time Temp Pulse Resp B/P Pulse Ox O2 Delivery O2 Flow Rate FiO2 01/31/17 11:00 62 12 125/43 100 Nasal Cannula 4.0 01/31/17 08:00 99.0 99.0 Weight Weight [ ] I.O. Intake and Output Intake and Output 01/31/17 07:00 Intake Total 2427 ml Output Total 0 ml Balance 2427 ml Intake Oral 1000 ml IV Total 1427 ml Output Urine Total 0 ml Labs Labs Laboratory Tests Test 01/31/17 05:10 01/31/17 08:57 01/31/17 09:06 01/31/17 11:02 White Blood Count 8.8x10^3/uL (4.0-11.0) Red Blood Count 3.34x10^6/uL (4.30-5.70) Hemoglobin 10.4g/dL (13.0-17.5) Hematocrit 31.2% (39.0-53.0) Mean Corpuscular Volume 93fL (79-100) Mean Corpuscular Hemoglobin 31pg (25-35) Mean Corpuscular Hemoglobin Concent 33g/dL (31-37) Red Cell Distribution Width 14.2% (11.5-14.5) Platelet Count 186x10^3/uL (140-400) Neutrophils (%) (Auto) 77% (31-73) Lymphocytes (%) (Auto) 10% (24-48) Monocytes (%) (Auto) 12% (0-9) Eosinophils (%) (Auto) 1% (0-3) Basophils (%) (Auto) 1% (0-3) Neutrophils # (Auto) 6.7x10^3uL (1.8-7.7) Lymphocytes # (Auto) 0.8x10^3/uL (1.0-4.8) Monocytes # (Auto) 1.1x10^3/uL (0.0-1.1) Eosinophils # (Auto) 0.1x10^3/uL (0.0-0.7) Basophils # (Auto) 0.0x10^3/uL (0.0-0.2) Heparin Anti-Xa Act, Unfractionated 0.45IU/mL (0.30-0.70) Sodium Level 137mmol/L (136-145) Potassium Level 6.9mmol/L (3.5-5.1) Chloride Level 97mmol/L (98-107) Carbon Dioxide Level 22mmol/L (21-32) Anion Gap 18 (6-14) Blood Urea Nitrogen 67mg/dL (8-26) Creatinine 11.2mg/dL (0.7-1.3) Estimated GFR (Cockcroft-Gault) 4.7 Glucose Level 70mg/dL (70-99) Calcium Level 7.6mg/dL (8.5-10.1) Glucose (Fingerstick) 28mg/dL (70-99) 165mg/dL (70-99) 127mg/dL (70-99) Review of Systems Constitutional: yes: alert, oriented Ears/Nose/Throat: Yes: no symptom reported Eyes: Yes: no symptom reported Pulmonary: Yes no symptom reported Cardiovascular: Yes no symptom reported Gastrointestional: Yes: no symptom reported Musculoskeletal: Yes: no symptom reported Psychiatric/Neurological: Yes: no symptom reported Physical Exam General Appearance: no apparent distress Respiratory: bilateral CTA Heart: S1S2 Abdomen: soft Extremities: pulses present Neurology: alert Assessment Assessment IMP ESRD ANEMIA AMI CAD HYPERKALEMIA PLAN HD TODAY UF TO DW CABG PENDING D/W CTS CONT JAYDE MILLER MD Jan 31, 2017 11:28
--- NOTE | 2017-01-31 11:30 | PDOC ---
PROGRESS NOTES Chief Complaint Chief Complaint error Nutrition Consultation Dietary Evaluation: Recommendations by RD: Increase Calorie Intake Comments: Boost breeze TID - 250kcal and 9g protein per serving Expected Outcomes/Goals: diet advancement Malnutrition Findings: Weight Status: Overweight WENID GUTIERREZ MD Jan 31, 2017 11:30
[2017-01-31] MEDS: ALPRAZOLAM 0.5 MG TABLET PO PRN ×2 (12:29→19:56)
[2017-01-31] MEDS: HEPARIN 25,000UTS/500ML PREMIX 500 ML IV PRN (12:41)
--- NOTE | 2017-01-31 13:52 | PDOC ---
PROGRESS NOTES Subjective Subjective No acute distress overnight. Pt getting dialyzed now, reports doing well. Denies chest pain or shortness of breath. Objective Objective Vital Signs Date Time Temp Pulse Resp B/P Pulse Ox O2 Delivery O2 Flow Rate FiO2 01/31/17 12:00 98.8 60 14 134/63 100 Nasal Cannula 4.0 98.8 Intake and Output 01/31/17 07:00 Intake Total 2427 ml Output Total 0 ml Balance 2427 ml Intake Oral 1000 ml IV Total 1427 ml Output Urine Total 0 ml Physical Exam Physical Exam No changes in cardiac exam. Groin looks clean without hematoma. Assessment Assessment Severe CAD Problems Medical Problems: (1) Flank pain Status: Acute (2) Pancreatitis Status: Acute Plan Plan of Care Pt with severe CAD that is a Vasculopath and is awaiting CABGS. Comment Review of Relevant I have reviewed the following items dionte (where applicable) has been applied. Labs Laboratory Tests Test 01/29/17 21:00 01/30/17 05:45 01/31/17 05:10 01/31/17 08:57 Nasal Screen MRSA (PCR) Negative (Negative) White Blood Count 8.9x10^3/uL (4.0-11.0) 8.8x10^3/uL (4.0-11.0) Red Blood Count 3.28x10^6/uL (4.30-5.70) 3.34x10^6/uL (4.30-5.70) Hemoglobin 10.3g/dL (13.0-17.5) 10.4g/dL (13.0-17.5) Hematocrit 30.7% (39.0-53.0) 31.2% (39.0-53.0) Mean Corpuscular Volume 94fL (79-100) 93fL (79-100) Mean Corpuscular Hemoglobin 31pg (25-35) 31pg (25-35) Mean Corpuscular Hemoglobin Concent 33g/dL (31-37) 33g/dL (31-37) Red Cell Distribution Width 14.0% (11.5-14.5) 14.2% (11.5-14.5) Platelet Count 193x10^3/uL (140-400) 186x10^3/uL (140-400) Neutrophils (%) (Auto) 79% (31-73) 77% (31-73) Lymphocytes (%) (Auto) 10% (24-48) 10% (24-48) Monocytes (%) (Auto) 10% (0-9) 12% (0-9) Eosinophils (%) (Auto) 1% (0-3) 1% (0-3) Basophils (%) (Auto) 1% (0-3) 1% (0-3) Neutrophils # (Auto) 7.0x10^3uL (1.8-7.7) 6.7x10^3uL (1.8-7.7) Lymphocytes # (Auto) 0.9x10^3/uL (1.0-4.8) 0.8x10^3/uL (1.0-4.8) Monocytes # (Auto) 0.9x10^3/uL (0.0-1.1) 1.1x10^3/uL (0.0-1.1) Eosinophils # (Auto) 0.1x10^3/uL (0.0-0.7) 0.1x10^3/uL (0.0-0.7) Basophils # (Auto) 0.0x10^3/uL (0.0-0.2) 0.0x10^3/uL (0.0-0.2) Prothrombin Time 14.7SEC (11.7-14.0) Prothromb Time International Ratio 1.2 (0.8-1.1) Heparin Anti-Xa Act, Unfractionated 0.23IU/mL (0.30-0.70) 0.45IU/mL (0.30-0.70) Sodium Level 140mmol/L (136-145) 137mmol/L (136-145) Potassium Level 5.4mmol/L (3.5-5.1) 6.9mmol/L (3.5-5.1) Chloride Level 102mmol/L (98-107) 97mmol/L (98-107) Carbon Dioxide Level 27mmol/L (21-32) 22mmol/L (21-32) Anion Gap 11 (6-14) 18 (6-14) Blood Urea Nitrogen 52mg/dL (8-26) 67mg/dL (8-26) Creatinine 8.8mg/dL (0.7-1.3) 11.2mg/dL (0.7-1.3) Estimated GFR (Cockcroft-Gault) 6.2 4.7 Glucose Level 94mg/dL (70-99) 70mg/dL (70-99) Calcium Level 7.4mg/dL (8.5-10.1) 7.6mg/dL (8.5-10.1) Troponin I Quantitative 21.034ng/mL (0.000-0.055) Amylase Level 99U/L (25-115) Lipase 222U/L (73-393) Glucose (Fingerstick) 28mg/dL (70-99) Test 01/31/17 09:06 01/31/17 11:02 01/31/17 11:25 Glucose (Fingerstick) 165mg/dL (70-99) 127mg/dL (70-99) Potassium Level 4.1mmol/L (3.5-5.1) Laboratory Tests Test 01/31/17 05:10 01/31/17 08:57 01/31/17 09:06 01/31/17 11:02 White Blood Count 8.8x10^3/uL (4.0-11.0) Red Blood Count 3.34x10^6/uL (4.30-5.70) Hemoglobin 10.4g/dL (13.0-17.5) Hematocrit 31.2% (39.0-53.0) Mean Corpuscular Volume 93fL (79-100) Mean Corpuscular Hemoglobin 31pg (25-35) Mean Corpuscular Hemoglobin Concent 33g/dL (31-37) Red Cell Distribution Width 14.2% (11.5-14.5) Platelet Count 186x10^3/uL (140-400) Neutrophils (%) (Auto) 77% (31-73) Lymphocytes (%) (Auto) 10% (24-48) Monocytes (%) (Auto) 12% (0-9) Eosinophils (%) (Auto) 1% (0-3) Basophils (%) (Auto) 1% (0-3) Neutrophils # (Auto) 6.7x10^3uL (1.8-7.7) Lymphocytes # (Auto) 0.8x10^3/uL (1.0-4.8) Monocytes # (Auto) 1.1x10^3/uL (0.0-1.1) Eosinophils # (Auto) 0.1x10^3/uL (0.0-0.7) Basophils # (Auto) 0.0x10^3/uL (0.0-0.2) Heparin Anti-Xa Act, Unfractionated 0.45IU/mL (0.30-0.70) Sodium Level 137mmol/L (136-145) Potassium Level 6.9mmol/L (3.5-5.1) Chloride Level 97mmol/L (98-107) Carbon Dioxide Level 22mmol/L (21-32) Anion Gap 18 (6-14) Blood Urea Nitrogen 67mg/dL (8-26) Creatinine 11.2mg/dL (0.7-1.3) Estimated GFR (Cockcroft-Gault) 4.7 Glucose Level 70mg/dL (70-99) Calcium Level 7.6mg/dL (8.5-10.1) Glucose (Fingerstick) 28mg/dL (70-99) 165mg/dL (70-99) 127mg/dL (70-99) Test 01/31/17 11:25 Potassium Level 4.1mmol/L (3.5-5.1) Medications Current Medications Hydromorphone HCl (Dilaudid) 1 mg 1X ONCE IV Last administered on 01/28/17 23 :57; Start 01/28/17 at 23:30; Stop 01/28/17 at 23:31; Status DC Ondansetron HCl 4 mg 4 mg 1X ONCE IV Last administered on 01/28/17 23:57; Start 01/28/17 at 23:30; Stop 01/28/17 at 23:31; Status DC Sodium Chloride (Iv Sodium Chloride 0.9% 500ml Bag) 500 ml @ 0 mls/hr 1X ONCE IV Last administered on 01/28/17 23:39; Start 01/28/17 at 23:30; Stop at 23:31; Status DC Diphenhydramine HCl (Benadryl) 50 mg 1X ONCE IVP Last administered on 00:29; Start 01/29/17 at 00:30; Stop 01/29/17 at 00:31; Status DC Diphenhydramine HCl (Benadryl) 50 mg STK-MED ONCE .ROUTE ; Start 01/29/17 at 00: 26; Stop 01/29/17 at 00:27; Status DC Morphine Sulfate 4 mg 1X ONCE IV Last administered on 01/29/17 03:55; Start 01/29/17 at 02:15; Stop 01/29/17 at 02:16; Status DC Ondansetron HCl (Zofran) 4 mg PRN Q8HRS PRN IV NAUSEA/VOMITING; Start 01/29/17 at 03:00; Stop 01/30/17 at 02:59; Status DC Morphine Sulfate 4 mg 4 mg PRN Q2HR PRN IV PAIN Last administered on 01/29/17 09:59; Start 01/29/17 at 03:00; Stop 01/29/17 at 11:47; Status DC Sodium Chloride (Iv Sodium Chloride 0.9% 1000ml Bag) 1,000 ml @ 50 mls/hr Q20H IV Last administered on 01/30/17 07:28; Start 01/29/17 at 02:12; Stop at 02:11; Status DC Alprazolam (Xanax) 0.5 mg PRN Q6HRS PRN PO ANXIETY / AGITATION Last administered on 01/31/17 12:29; Start 01/29/17 at 11:30 Amlodipine Besylate (Norvasc) 10 mg BID PO ; Start 01/29/17 at 12:00 Aspirin (Children'S Aspirin) 324 mg DAILY PO ; Start 01/29/17 at 12:00; Stop at 18:32; Status DC Calcium Carbonate/ Glycine (Tums) 800 mg TIDAC PO Last administered on 12:30; Start 01/29/17 at 11:30 Clonidine HCl (Catapres) 0.3 mg DAILY PO ; Start 01/30/17 at 09:00 Clopidogrel Bisulfate (Plavix) 75 mg DAILY PO ; Start 01/29/17 at 12:00; Stop at 09:45; Status DC Vitamin B Complex/ Vitamin C (Nephro-Chilo) 1 tab DAILY PO Last administered on 01/31/17 09:12; Start 01/29/17 at 12:00 Furosemide (Lasix) 80 mg [id number] PO Last administered on 01/30/17 12:59; Start 01/29/17 at 14:00 Acetaminophen/ Hydrocodone Bitart (Lortab 5/325) 1 tab PRN Q6HRS PRN PO PAIN; Start 01/29/17 at 11:30; Stop 01/29/17 at 18:58; Status DC Isosorbide Mononitrate (Imdur) 30 mg DAILY PO ; Start 01/29/17 at 12:00 Paroxetine HCl (Paxil) 40 mg DAILY PO Last administered on 01/31/17 09:12; Start 01/29/17 at 12:00 Tamsulosin HCl (Flomax) 0.4 mg QHS PO Last administered on 01/30/17 21:05; Start 01/29/17 at 21:00 Hydralazine HCl (Apresoline) 100 mg TID PO ; Start 01/29/17 at 14:00 Losartan Potassium (Cozaar) 100 mg QHS PO ; Start 01/29/17 at 21:00 Metoprolol Tartrate (Lopressor) 100 mg BID PO Last administered on 01/30/17 21 :05; Start 01/29/17 at 12:00 Pantoprazole Sodium (Protonix) 40 mg DAILYAC PO Last administered on 01/31/17 09:11; Start 01/29/17 at 12:00 Darbepoetin Percy (Aranesp) 60 mcg WEEKLYHS SQ ; Start 02/02/17 at 21:00 Morphine Sulfate 6 mg 6 mg PRN Q2HR PRN IV PAIN Last administered on 01/30/17 19:22; Start 01/29/17 at 11:45 Sodium Chloride (Iv Sodium Chloride 0.9% 1000ml Bag) 1,000 ml @ 1,000 mls/hr Q1H PRN IV hypotension; Start 01/29/17 at 12:55; Stop 01/29/17 at 18:54; Status DC Diphenhydramine HCl (Benadryl) 25 mg 1X PRN PRN IV ITCHING Last administered on 01/29/17 19:12; Start 01/29/17 at 13:00; Stop 01/30/17 at 12:59; Status DC Diphenhydramine HCl (Benadryl) 25 mg 1X PRN PRN IV ITCHING Last administered on 01/29/17t 13:16; Start 01/29/17 at 13:00; Stop 01/30/17 at 12:59; Status DC Info (PHARMACY MONITORING -- do not chart) 1 each PRN DAILY PRN MC SEE COMMENTS ; Start 01/29/17 at 13:00; Status UNV Info (PHARMACY MONITORING -- do not chart) 1 each PRN DAILY PRN MC SEE COMMENTS ; Start 01/29/17 at 13:00 Nitroglycerin (Nitrostat) 0.4 mg STK-MED ONCE SL ; Start 01/29/17 at 16:55; Stop 01/29/17 at 16:56; Status DC Heparin Sodium (Porcine) 4000 unit 4,000 unit 1X ONCE IV Last administered on 01/29/17t 17:37; Start 01/29/17 at 17:30; Stop 01/29/17 at 17:31; Status DC Heparin Sodium/ Sodium Chloride 500 ml @ As Directed STK-MED ONCE .ROUTE ; Start 01/29/17 at 17:54; Stop 01/29/17 at 17:55; Status DC Lidocaine HCl 20 ml STK-MED ONCE .ROUTE ; Start 01/29/17 at 17:54; Stop at 17:55; Status DC Iodixanol (Visipaque 320) 100 ml STK-MED ONCE .ROUTE ; Start 01/29/17 at 17:54; Stop 01/29/17 at 17:55; Status DC Metoprolol Tartrate (Lopressor) 5 mg STK-MED ONCE .ROUTE ; Start 01/29/17 at 18: 05; Stop 01/29/17 at 18:06; Status DC Fentanyl Citrate (Fentanyl 2ml Vial) 100 mcg STK-MED ONCE .ROUTE ; Start at 18:05; Stop 01/29/17 at 18:06; Status DC Midazolam HCl 2 mg 2 mg STK-MED ONCE .ROUTE ; Start 01/29/17 at 18:05; Stop at 18:06; Status DC Heparin Sodium/ Dextrose 500 ml @ As Directed STK-MED ONCE IV ; Start 01/29/17 at 18:18; Stop 01/29/17 at 18:19; Status DC Heparin Sodium (Porcine) 10,000 unit STK-MED ONCE .ROUTE ; Start 01/29/17 at 18: 18; Stop 01/29/17 at 18:19; Status DC Metoprolol Tartrate (Lopressor) 5 mg STK-MED ONCE .ROUTE ; Start 01/29/17 at 18: 25; Stop 01/29/17 at 18:26; Status DC Heparin Sodium/ Sodium Chloride 1,000 unit 1X ONCE IART Last administered on 18:51; Start 01/29/17 at 18:45; Stop 01/29/17 at 18:53; Status DC Heparin Sodium/ Sodium Chloride 1,000 unit 1X ONCE IART Last administered on 18:51; Start 01/29/17 at 18:45; Stop 01/29/17 at 18:53; Status DC Midazolam HCl (Versed) 1 mg 1X ONCE IV Last administered on 01/29/17 18:53; Start 01/29/17 at 18:45; Stop 01/29/17 at 18:53; Status DC Fentanyl Citrate (Fentanyl 2ml Vial) 50 mcg 1X ONCE IV Last administered on 18:53; Start 01/29/17 at 18:45; Stop 01/29/17 at 18:53; Status DC Iodixanol (Visipaque 320) 105 ml 1X ONCE IART Last administered on 01/29/17 18:52; Start 01/29/17 at 18:45; Stop 01/29/17 at 18:53; Status DC Heparin Sodium (Porcine) 4000 unit 4,000 unit 1X ONCE IV Last administered on 01/29/17 18:53; Start 01/29/17 at 18:45; Stop 01/29/17 at 18:53; Status DC Heparin Sodium/ Dextrose 500 ml @ 20 mls/hr CONT PRN IV SEE I/O RECORD; Start 01/29/17 at 18:24; Stop 01/30/17 at 14:01; Status DC Metoprolol Tartrate (Lopressor) 10 mg 1X ONCE IVP Last administered on 18:52; Start 01/29/17 at 18:45; Stop 01/29/17 at 18:53; Status DC Lidocaine HCl 10 ml 1X ONCE IJ Last administered on 01/29/17 18:52; Start at 18:45; Stop 01/29/17 at 18:53; Status DC Sodium Chloride (Normal Saline Flush) 3 ml QSHIFT PRN IV AFTER MEDS AND BLOOD DRAWS; Start 01/29/17 at 18:45 Docusate Sodium (Colace) 100 mg BID PO ; Start 01/29/17 at 21:00 Fentanyl Citrate (Fentanyl 2ml Vial) 50 mcg PRN Q1HR PRN IV Moderate or severe pain Last administered on 01/29/17 23:25; Start 01/29/17 at 18:45 Cyclobenzaprine HCl (Flexeril) 10 mg PRN TID PRN PO MUSCLE SPASMS Last administered on 01/30/17 05:22; Start 01/29/17 at 18:45 Ondansetron HCl (Zofran) 4 mg PRN Q6HRS PRN IV NAUSEA/VOMITING; Start 01/29/17 at 18:45 Nitroglycerin (Nitrostat) 0.4 mg PRN Q5MIN PRN SL CHEST PAIN; Start 01/29/17 at 18:45 Acetaminophen/ Hydrocodone Bitart (Lortab 5/325) 1 tab PRN Q4HRS PRN PO MILD PAIN Last administered on 01/30/17 05:21; Start 01/29/17 at 18:45 Diltiazem HCl 5 mg 5 mg 1X ONCE IVP Last administered on 01/29/17 19:23; Start 01/29/17 at 19:15; Stop 01/29/17 at 19:18; Status DC Diltiazem HCl/ Dextrose (Cardizem) 125 ml @ 0 mls/hr CONT PRN IV SEE I/O RECORD ; Start 01/29/17 at 19:15 Diphenhydramine HCl (Benadryl) 50 mg PRN Q8HRS PRN IVP ITCHING Last administered on 01/31/17 06:15; Start 01/29/17 at 19:15 Nitroglycerin (Nitrostat) 0.4 mg STK-MED ONCE SL ; Start 01/29/17 at 17:00; Stop 01/30/17 at 08:02; Status DC Info (Anti-Coagulation Monitoring By Pharmacy) 1 each PRN DAILY PRN MC SEE COMMENTS Last administered on 01/30/17 10:49; Start 01/30/17 at 10:45 Heparin Sodium (Porcine) 3000 unit 3,000 unit 1X ONCE IV Last administered on 01/30/17 17:36; Start 01/30/17 at 18:00; Stop 01/30/17 at 18:01; Status DC Heparin Sodium/ Dextrose 500 ml @ 24 mls/hr CONT PRN IV SEE I/O RECORD Last administered on 01/31/17 12:41; Start 01/30/17 at 18:00 Sodium Chloride (Iv Sodium Chloride 0.9% 1000ml Bag) 1,000 ml @ 50 mls/hr Q20H IV Last administered on 01/31/17 02:45; Start 01/31/17 at 02:45 Dextrose 25 gm 1X ONCE IV Last administered on 01/31/17 06:05; Start at 06:30; Stop 01/31/17 at 06:31; Status DC Insulin Human Regular (Novolin R Vial) 10 unit 1X ONCE IV Last administered on 01/31/17 06:09; Start 01/31/17 at 06:30; Stop 01/31/17 at 06:31; Status DC Dextrose 25 gm 25 gm 1X ONCE IV Last administered on 01/31/17 09:04; Start at 09:00; Stop 01/31/17 at 09:03; Status DC Sodium Chloride 1,000 ml @ 1,000 mls/hr Q1H PRN IV hypotension; Start 01/31/17 at 09:28; Stop 01/31/17 at 15:27 Albumin Human (Albuminar) 200 ml @ 200 mls/hr 1X PRN PRN IV Hypotension; Start 01/31/17 at 09:30; Stop 01/31/17 at 15:29 Acetaminophen (Tylenol) 500 mg 1X PRN PRN PO MILD PAIN / TEMP; Start 01/31/17 at 09:30; Stop 02/01/17 at 09:29 Diphenhydramine HCl (Benadryl) 25 mg 1X PRN PRN IV ITCHING Last administered on 01/31/17 10:34; Start 01/31/17 at 09:30; Stop 02/01/17 at 09:29 Diphenhydramine HCl (Benadryl) 25 mg 1X PRN PRN IV ITCHING; Start 01/31/17 at 09:30; Stop 02/01/17 at 09:29 Info (PHARMACY MONITORING -- do not chart) 1 each PRN DAILY PRN MC SEE COMMENTS ; Start 01/31/17 at 09:30; Status UNV Active Scripts Active Clopidogrel (Clopidogrel Bisulfate) 75 Mg Tablet 1 Tab PO DAILY Isosorbide Mononitrate Er (Isosorbide Mononitrate) 30 Mg Tab.er.24h 30 Mg PO DAILY Flomax (Tamsulosin Hcl) 0.4 Mg Cap.er.24h 0.4 Mg PO QHS Reported Hydrocodone-Apap 5-325 (Hydrocodone Bit/Acetaminophen) 1 Each Tablet 1 Tab PO PRN Q6HRS PRN Furosemide 80 Mg Tablet 1 Tab PO BID Nephro-Chilo Tablet (Folic Acid/Vitamin B Comp W-C) 0.8 Mg Tablet 1 Tab PO DAILY Paroxetine Hcl 20 Mg Tablet 40 Mg PO DAILY Tums (Calcium Carbonate) 200 Mg Tab.chew 800 Mg PO TIDAC Omeprazole Magnesium 20 Mg Capsule.dr 20 Mg PO DAILY Clonidine Hcl 0.3 Mg Tablet 1 Tab PO DAILY Hydralazine Hcl 100 Mg Tablet 100 Mg PO TID LAST DOSE: 02/24/16 AFTERNOON NEXT DOSE: 02/24/16 BEDTIME Amlodipine Besylate 10 Mg Tablet 10 Mg PO BID LAST DOSE: 02/24/16 AM NEXT DOSE: 02/25/16 AM Xanax (Alprazolam) 0.5 Mg Tablet 0.5 Mg PO Q6HRS PRN LAST DOSE: 02/23/16 BEDTIME NEXT DOSE: 02/24/16 BEDTIME Losartan Potassium 100 Mg Tablet 100 Mg PO HS LAST DOSE: 02/23/16 BEDTIME NEXT DOSE: 02/24/16 BEDTIME Metoprolol Tartrate 100 Mg Tablet 100 Mg PO BID LAST DOSE: 02/24/16 AM NEXT DOSE: 02/24/16 BEDTIME Lillian Chewable (Aspirin) 81 Mg Tab.chew 324 Mg PO DAILY LAST DOSE: 02/24/16 AM NEXT DOSE: 02/25/16 AM Vitals/I & O Vital Sign - Last 24 Hours 01/30/17 01/30/17 01/30/17 01/30/17 14:00 15:00 16:00 16:00 Pulse 89 86 86 Resp 13 14 13 B/P 132/67 145/80 146/68 Pulse Ox 89 99 92 O2 Delivery Nasal Cannula Nasal Cannula Nasal Cannula Nasal Cannula O2 Flow Rate 2.0 2.0 2.0 2.0 01/30/17 3/17 315/17 317 17:00 18:00 19:00 19:22 Pulse 87 87 84 Resp 13 9 9 8 B/P 106/72 143/65 144/64 Pulse Ox 96 98 91 91 O2 Delivery Nasal Cannula Nasal Cannula Nasal Cannula Nasal Cannula O2 Flow Rate 2.0 2.0 2.0 01/30/17 01/30/17 3/17 01/30/17 20:00 20:00 21:00 21:00 Temp 98.4 98.4 Pulse 88 86 86 Resp 11 B/P 143/72 140/72 140/72 Pulse Ox 93 O2 Delivery Nasal Cannula Nasal Cannula O2 Flow Rate 2.0 2.0 17 17 01/30/17 01/30/17 21:00 21:00 21:05 22:00 Pulse 86 86 85 Resp 15 9 B/P 140/72 140/72 140/72 Pulse Ox 93 O2 Delivery Nasal Cannula O2 Flow Rate 2.0 01/30/17 01/30/17 01/31/17 17 22:00 23:00 00:00 00:00 Temp 98.3 98.3 Pulse 82 81 82 Resp 16 11 18 B/P 115/69 134/71 145/67 Pulse Ox 96 96 97 O2 Delivery Nasal Cannula Nasal Cannula Nasal Cannula Nasal Cannula O2 Flow Rate 2.0 2.0 4.0 2.0 16/17 16/17 16/17 17 01:00 02:00 03:00 04:00 Pulse 84 84 85 Resp 16 20 23 B/P 131/87 122/67 143/70 Pulse Ox 99 97 99 O2 Delivery Nasal Cannula Nasal Cannula Nasal Cannula Nasal Cannula O2 Flow Rate 4.0 4.0 4.0 2.0 16/17 3/16/17 316/17 316/17 04:00 05:00 06:00 07:00 Temp 99.4 99.4 Pulse 89 101 72 68 Resp 29 22 16 16 B/P 143/64 148/69 158/74 130/55 Pulse Ox 94 94 97 96 O2 Delivery Nasal Cannula Nasal Cannula Nasal Cannula Nasal Cannula O2 Flow Rate 4.0 4.0 4.0 4.0 01/31/17 01/31/17 01/31/17 01/31/17 08:00 08:45 09:00 10:00 Temp 99.0 99.0 Pulse 74 76 64 Resp 14 16 14 B/P 153/85 154/80 133/66 Pulse Ox 94 94 97 O2 Delivery Nasal Cannula Nasal Cannula Nasal Cannula Nasal Cannula O2 Flow Rate 4.0 4.0 4.0 4.0 01/31/17 01/31/17 01/31/17 11:00 12:00 12:00 Temp 98.8 98.8 Pulse 62 60 Resp 12 14 B/P 125/43 134/63 Pulse Ox 100 100 O2 Delivery Nasal Cannula Nasal Cannula Nasal Cannula O2 Flow Rate 4.0 4.0 4.0 Intake and Output 01/30/17 01/30/17 01/31/17 15:00 23:00 07:00 Intake Total 600 ml 400 ml 1427 ml Output Total 0 ml 0 ml Balance 600 ml 400 ml 1427 ml Nutrition Consultation Dietary Evaluation: Recommendations by RD: Increase Calorie Intake Comments: Boost breeze TID - 250kcal and 9g protein per serving Expected Outcomes/Goals: diet advancement Malnutrition Findings: Weight Status: Overweight ESTEFANÍA MANZO MD Jan 31, 2017 13:52
--- NOTE | 2017-01-31 16:46 | PDOC ---
Provider Note Provider Note The Pt is clinically stable and has had no further chest pain SR 71 VSS on RA Abd pain is resolved Carotid duplex and LE Doppler studies noted Will obtain vein from the left leg The Pt reports having a lung Bx at [facility] recently Will obtain a new CT scan of the chest OR plans are for Saturday ZUHAIR SHABAZZ MD Jan 31, 2017 16:46
--- NOTE | 2017-01-31 17:47 | PDOC ---
PROGRESS NOTES Chief Complaint Chief Complaint Pancreatitis ASSESSMENT AND PLAN: 1. Pancreatitis: recurrent, unk etiology. resolved 2. STEMI: EKG changes (incl brief afib), troponin #2 of [address] 01/29with multi-vessel dz. CABG ?Fri. on heparin gtt. cont cardiac meds 3. ESRD: on HD, Dr Luz sharma 4. Hyperkalemia: received insulin/ Glu IV 5. Hypoglycemia (post insulin): symptomatic. IV glu (not diabetic) 4. Anemia: stable around 10. 2/2 ESRD. EPO, iron with HD as indicated 5. Prophylaxis: PPI Vitals Vitals Vital Signs Date Time Temp Pulse Resp B/P Pulse Ox O2 Delivery O2 Flow Rate FiO2 01/31/17 16:00 98.0 66 14 110/63 100 Nasal Cannula 4.0 98.0 Physical Exam General: Alert, Oriented X3, Cooperative Heart: Regular rate, Normal S1, Normal S2, Other (sl irreg) Lungs: Clear Abdomen: Other (BS (+), mild tenderness) Extremities: No edema, Other (poor pulses) Skin: No breakdown Labs LABS Laboratory Tests Test 01/31/17 05:10 01/31/17 08:57 01/31/17 09:06 01/31/17 11:02 White Blood Count 8.8x10^3/uL (4.0-11.0) Red Blood Count 3.34x10^6/uL (4.30-5.70) Hemoglobin 10.4g/dL (13.0-17.5) Hematocrit 31.2% (39.0-53.0) Mean Corpuscular Volume 93fL (79-100) Mean Corpuscular Hemoglobin 31pg (25-35) Mean Corpuscular Hemoglobin Concent 33g/dL (31-37) Red Cell Distribution Width 14.2% (11.5-14.5) Platelet Count 186x10^3/uL (140-400) Neutrophils (%) (Auto) 77% (31-73) Lymphocytes (%) (Auto) 10% (24-48) Monocytes (%) (Auto) 12% (0-9) Eosinophils (%) (Auto) 1% (0-3) Basophils (%) (Auto) 1% (0-3) Neutrophils # (Auto) 6.7x10^3uL (1.8-7.7) Lymphocytes # (Auto) 0.8x10^3/uL (1.0-4.8) Monocytes # (Auto) 1.1x10^3/uL (0.0-1.1) Eosinophils # (Auto) 0.1x10^3/uL (0.0-0.7) Basophils # (Auto) 0.0x10^3/uL (0.0-0.2) Heparin Anti-Xa Act, Unfractionated 0.45IU/mL (0.30-0.70) Sodium Level 137mmol/L (136-145) Potassium Level 6.9mmol/L (3.5-5.1) Chloride Level 97mmol/L (98-107) Carbon Dioxide Level 22mmol/L (21-32) Anion Gap 18 (6-14) Blood Urea Nitrogen 67mg/dL (8-26) Creatinine 11.2mg/dL (0.7-1.3) Estimated GFR (Cockcroft-Gault) 4.7 Glucose Level 70mg/dL (70-99) Calcium Level 7.6mg/dL (8.5-10.1) Glucose (Fingerstick) 28mg/dL (70-99) 165mg/dL (70-99) 127mg/dL (70-99) Test 01/31/17 11:25 Potassium Level 4.1mmol/L (3.5-5.1) Review of Systems Review of Systems feels ok. completely recovered from hypoglycemic episode Nutrition Consultation Dietary Evaluation: Recommendations by RD: Increase Calorie Intake Comments: Boost breeze TID - 250kcal and 9g protein per serving Expected Outcomes/Goals: diet advancement Malnutrition Findings: Weight Status: Overweight WENDI GUTIERREZ MD Jan 31, 2017 17:47
[2017-01-31] MEDS: HYDROCODONE/APAP 5/325MG TABLET. PO PRN (18:09)
[2017-01-31] MEDS: TAMSULOSIN 0.4 MG CAP.ER.24H. PO SCH (21:51)
[2017-01-31] MEDS: LOSARTAN POTASSIUM 50 MG TABLET. PO SCH (21:53)
[2017-02-01] VITALS (7 sets, daily range): BP systolic 109–147; BP diastolic 50–71
[2017-02-01] MEDS: ALPRAZOLAM 0.5 MG TABLET PO PRN ×3 (02:43→21:08)
[2017-02-01 06:02] LABS: BASO % 1 % (0-3); EOS % 1 % (0-3); HEMOGLOBIN 8.6 g/dL (13.0-17.5); LYMPH # 0.8 x10^3/uL (1.0-4.8); LYMPH % 14 % (24-48); MEAN CORPUSCULAR HEMOGLOBIN 31 pg (25-35); MEAN CORPUSCULAR HGB CONC 33 g/dL (31-37); MEAN CORPUSCULAR VOLUME 93 fL (79-100); MONO % 14 % (0-9); NEUT % 71 % (31-73); PLATELET COUNT 153 x10^3/uL (140-400); RED CELL DISTRIBUTION WIDTH 13.7 % (11.5-14.5); WHITE BLOOD COUNT 5.7 x10^3/uL (4.0-11.0)
[2017-02-01 06:17] LABS: CALCIUM 7.8 mg/dL (8.5-10.1); CREATININE 7.5 mg/dL (0.7-1.3); GFR 7.5
--- NOTE | 2017-02-01 07:28 | RAD ---
Portable chest, 01/31/2017: History: Preop CABG Comparison is made to a study from 11/28/2016. A left-sided Port-A-Cath extends into the inferior aspect of the superior vena cava. The heart size and pulmonary vascularity are normal. There is minimal linear atelectasis or scarring in the right parahilar region. The lungs are otherwise clear. There is no evidence of pleural fluid or pneumothorax. IMPRESSION: 1. A left Port-A-Cath is in satisfactory position. 2. Minimal right perihilar linear atelectasis.
[2017-02-01] MEDS: HEPARIN 25,000UTS/500ML PREMIX 500 ML IV PRN (08:02)
[2017-02-01] MEDS: FOLIC/VIT B COMP W-C (RENAL) TABLET. PO SCH (08:02)
[2017-02-01] MEDS: DOCUSATE SODIUM 100 MG CAPSULE PO SCH ×2 (08:03→21:07)
[2017-02-01] MEDS: ISOSORBIDE MONONITRATE ER 30 MG TAB.ER.24H PO SCH (08:04)
[2017-02-01] MEDS: FUROSEMIDE 80 MG TABLET PO SCH ×2 (08:05→14:31)
[2017-02-01] MEDS: PANTOPRAZOLE 40 MG TABLET. PO SCH (08:05)
[2017-02-01] MEDS: CALCIUM CARBONATE 500 MG TAB.CHEW PO SCH ×3 (08:05→17:09)
[2017-02-01] MEDS: PAROXETINE 20 MG TABLET. PO SCH (08:05)
[2017-02-01] MEDS: HYDRALAZINE 50 MG TABLET PO SCH ×3 (09:00→21:08)
[2017-02-01] MEDS: METOPROLOL TART IMMED RELEASE 50 MG TABLET PO SCH ×2 (09:00→21:09)
[2017-02-01] MEDS: AMLODIPINE BESYLATE 10 MG TABLET PO SCH ×2 (09:00→21:10)
[2017-02-01] MEDS: CLONIDINE HCL 0.3 MG TABLET PO SCH (09:00)
--- NOTE | 2017-02-01 09:42 | PDOC ---
PROGRESS NOTES Subjective Subjective Patient is resting comfortably in the bed. Per report from the nurse patient was confused over night but is now reoriented. Plans for surgery Saturday after patient has been off anticoagulants for 5 days. Objective Objective Vital Signs Date Time Temp Pulse Resp B/P Pulse Ox O2 Delivery O2 Flow Rate FiO2 02/01/17 08:04 70 132/57 02/01/17 04:06 Nasal Cannula 4.0 02/01/17 04:00 98.1 18 100 98.1 Intake and Output 02/01/17 07:00 Intake Total 2273 ml Output Total 0 ml Balance 2273 ml Intake Oral 720 ml IV Total 1553 ml Output Urine Total 0 ml Physical Exam Physical Exam no changes in cardiac exam. General: Alert, Oriented X3, Cooperative, No acute distress Assessment Assessment Severe CAD Problems Medical Problems: (1) Flank pain Status: Acute (2) Pancreatitis Status: Acute Plan Plan of Care Patient is currently stable from a cardiac standpoint. Continue current plan of care. Await surgery Saturday. Comment Review of Relevant I have reviewed the following items dionte (where applicable) has been applied. Labs Laboratory Tests Test 01/31/17 05:10 01/31/17 08:57 01/31/17 09:06 01/31/17 11:02 White Blood Count 8.8x10^3/uL (4.0-11.0) Red Blood Count 3.34x10^6/uL (4.30-5.70) Hemoglobin 10.4g/dL (13.0-17.5) Hematocrit 31.2% (39.0-53.0) Mean Corpuscular Volume 93fL (79-100) Mean Corpuscular Hemoglobin 31pg (25-35) Mean Corpuscular Hemoglobin Concent 33g/dL (31-37) Red Cell Distribution Width 14.2% (11.5-14.5) Platelet Count 186x10^3/uL (140-400) Neutrophils (%) (Auto) 77% (31-73) Lymphocytes (%) (Auto) 10% (24-48) Monocytes (%) (Auto) 12% (0-9) Eosinophils (%) (Auto) 1% (0-3) Basophils (%) (Auto) 1% (0-3) Neutrophils # (Auto) 6.7x10^3uL (1.8-7.7) Lymphocytes # (Auto) 0.8x10^3/uL (1.0-4.8) Monocytes # (Auto) 1.1x10^3/uL (0.0-1.1) Eosinophils # (Auto) 0.1x10^3/uL (0.0-0.7) Basophils # (Auto) 0.0x10^3/uL (0.0-0.2) Heparin Anti-Xa Act, Unfractionated 0.45IU/mL (0.30-0.70) Sodium Level 137mmol/L (136-145) Potassium Level 6.9mmol/L (3.5-5.1) Chloride Level 97mmol/L (98-107) Carbon Dioxide Level 22mmol/L (21-32) Anion Gap 18 (6-14) Blood Urea Nitrogen 67mg/dL (8-26) Creatinine 11.2mg/dL (0.7-1.3) Estimated GFR (Cockcroft-Gault) 4.7 Glucose Level 70mg/dL (70-99) Calcium Level 7.6mg/dL (8.5-10.1) Glucose (Fingerstick) 28mg/dL (70-99) 165mg/dL (70-99) 127mg/dL (70-99) Test 01/31/17 11:25 02/01/17 05:25 Potassium Level 4.1mmol/L (3.5-5.1) 4.0mmol/L (3.5-5.1) White Blood Count 5.7x10^3/uL (4.0-11.0) Red Blood Count 2.80x10^6/uL (4.30-5.70) Hemoglobin 8.6g/dL (13.0-17.5) Hematocrit 26.0% (39.0-53.0) Mean Corpuscular Volume 93fL (79-100) Mean Corpuscular Hemoglobin 31pg (25-35) Mean Corpuscular Hemoglobin Concent 33g/dL (31-37) Red Cell Distribution Width 13.7% (11.5-14.5) Platelet Count 153x10^3/uL (140-400) Neutrophils (%) (Auto) 71% (31-73) Lymphocytes (%) (Auto) 14% (24-48) Monocytes (%) (Auto) 14% (0-9) Eosinophils (%) (Auto) 1% (0-3) Basophils (%) (Auto) 1% (0-3) Neutrophils # (Auto) 4.0x10^3uL (1.8-7.7) Lymphocytes # (Auto) 0.8x10^3/uL (1.0-4.8) Monocytes # (Auto) 0.8x10^3/uL (0.0-1.1) Eosinophils # (Auto) 0.1x10^3/uL (0.0-0.7) Basophils # (Auto) 0.0x10^3/uL (0.0-0.2) Heparin Anti-Xa Act, Unfractionated 0.33IU/mL (0.30-0.70) Sodium Level 138mmol/L (136-145) Chloride Level 96mmol/L (98-107) Carbon Dioxide Level 32mmol/L (21-32) Anion Gap 10 (6-14) Blood Urea Nitrogen 36mg/dL (8-26) Creatinine 7.5mg/dL (0.7-1.3) Estimated GFR (Cockcroft-Gault) 7.5 Glucose Level 122mg/dL (70-99) Calcium Level 7.8mg/dL (8.5-10.1) Laboratory Tests Test 01/31/17 11:02 01/31/17 11:25 02/01/17 05:25 Glucose (Fingerstick) 127mg/dL (70-99) Potassium Level 4.1mmol/L (3.5-5.1) 4.0mmol/L (3.5-5.1) White Blood Count 5.7x10^3/uL (4.0-11.0) Red Blood Count 2.80x10^6/uL (4.30-5.70) Hemoglobin 8.6g/dL (13.0-17.5) Hematocrit 26.0% (39.0-53.0) Mean Corpuscular Volume 93fL (79-100) Mean Corpuscular Hemoglobin 31pg (25-35) Mean Corpuscular Hemoglobin Concent 33g/dL (31-37) Red Cell Distribution Width 13.7% (11.5-14.5) Platelet Count 153x10^3/uL (140-400) Neutrophils (%) (Auto) 71% (31-73) Lymphocytes (%) (Auto) 14% (24-48) Monocytes (%) (Auto) 14% (0-9) Eosinophils (%) (Auto) 1% (0-3) Basophils (%) (Auto) 1% (0-3) Neutrophils # (Auto) 4.0x10^3uL (1.8-7.7) Lymphocytes # (Auto) 0.8x10^3/uL (1.0-4.8) Monocytes # (Auto) 0.8x10^3/uL (0.0-1.1) Eosinophils # (Auto) 0.1x10^3/uL (0.0-0.7) Basophils # (Auto) 0.0x10^3/uL (0.0-0.2) Heparin Anti-Xa Act, Unfractionated 0.33IU/mL (0.30-0.70) Sodium Level 138mmol/L (136-145) Chloride Level 96mmol/L (98-107) Carbon Dioxide Level 32mmol/L (21-32) Anion Gap 10 (6-14) Blood Urea Nitrogen 36mg/dL (8-26) Creatinine 7.5mg/dL (0.7-1.3) Estimated GFR (Cockcroft-Gault) 7.5 Glucose Level 122mg/dL (70-99) Calcium Level 7.8mg/dL (8.5-10.1) Medications Current Medications Hydromorphone HCl (Dilaudid) 1 mg 1X ONCE IV Last administered on 01/28/17 23 :57; Start 01/28/17 at 23:30; Stop 01/28/17 at 23:31; Status DC Ondansetron HCl 4 mg 4 mg 1X ONCE IV Last administered on 01/28/17 23:57; Start 01/28/17 at 23:30; Stop 01/28/17 at 23:31; Status DC Sodium Chloride (Iv Sodium Chloride 0.9% 500ml Bag) 500 ml @ 0 mls/hr 1X ONCE IV Last administered on 01/28/17 23:39; Start 01/28/17 at 23:30; Stop at 23:31; Status DC Diphenhydramine HCl (Benadryl) 50 mg 1X ONCE IVP Last administered on 00:29; Start 01/29/17 at 00:30; Stop 01/29/17 at 00:31; Status DC Diphenhydramine HCl (Benadryl) 50 mg STK-MED ONCE .ROUTE ; Start 01/29/17 at 00: 26; Stop 01/29/17 at 00:27; Status DC Morphine Sulfate 4 mg 1X ONCE IV Last administered on 01/29/17 03:55; Start 01/29/17 at 02:15; Stop 01/29/17 at 02:16; Status DC Ondansetron HCl (Zofran) 4 mg PRN Q8HRS PRN IV NAUSEA/VOMITING; Start 01/29/17 at 03:00; Stop 01/30/17 at 02:59; Status DC Morphine Sulfate 4 mg 4 mg PRN Q2HR PRN IV PAIN Last administered on 01/29/17 09:59; Start 01/29/17 at 03:00; Stop 01/29/17 at 11:47; Status DC Sodium Chloride (Iv Sodium Chloride 0.9% 1000ml Bag) 1,000 ml @ 50 mls/hr Q20H IV Last administered on 01/30/17 07:28; Start 01/29/17 at 02:12; Stop at 02:11; Status DC Alprazolam (Xanax) 0.5 mg PRN Q6HRS PRN PO ANXIETY / AGITATION Last administered on 02/01/17 02:43; Start 01/29/17 at 11:30 Amlodipine Besylate (Norvasc) 10 mg BID PO Last administered on 01/31/17 21:54 ; Start 01/29/17 at 12:00 Aspirin (Children'S Aspirin) 324 mg DAILY PO ; Start 01/29/17 at 12:00; Stop at 18:32; Status DC Calcium Carbonate/ Glycine (Tums) 800 mg TIDAC PO Last administered on 08:05; Start 01/29/17 at 11:30 Clonidine HCl (Catapres) 0.3 mg DAILY PO ; Start 01/30/17 at 09:00 Clopidogrel Bisulfate (Plavix) 75 mg DAILY PO ; Start 01/29/17 at 12:00; Stop at 09:45; Status DC Vitamin B Complex/ Vitamin C (Nephro-Chilo) 1 tab DAILY PO Last administered on 02/01/17 08:02; Start 01/29/17 at 12:00 Furosemide (Lasix) 80 mg BID92 PO Last administered on 02/01/17 08:05; Start 01/29/17 at 14:00 Acetaminophen/ Hydrocodone Bitart (Lortab 5/325) 1 tab PRN Q6HRS PRN PO PAIN; Start 01/29/17 at 11:30; Stop 01/29/17 at 18:58; Status DC Isosorbide Mononitrate (Imdur) 30 mg DAILY PO Last administered on 02/01/17 08 :04; Start 01/29/17 at 12:00 Paroxetine HCl (Paxil) 40 mg DAILY PO Last administered on 02/01/17 08:05; Start 01/29/17 at 12:00 Tamsulosin HCl (Flomax) 0.4 mg QHS PO Last administered on 01/31/17 21:51; Start 01/29/17 at 21:00 Hydralazine HCl (Apresoline) 100 mg TID PO Last administered on 01/31/17 21:52 ; Start 01/29/17 at 14:00 Losartan Potassium (Cozaar) 100 mg QHS PO Last administered on 01/31/17 21:53 ; Start 01/29/17 at 21:00 Metoprolol Tartrate (Lopressor) 100 mg BID PO Last administered on 01/31/17 21 :53; Start 01/29/17 at 12:00 Pantoprazole Sodium (Protonix) 40 mg DAILYAC PO Last administered on 02/01/17 08:05; Start 01/29/17 at 12:00 Darbepoetin Percy (Aranesp) 60 mcg WEEKLYHS SQ ; Start 02/02/17 at 21:00 Morphine Sulfate 6 mg 6 mg PRN Q2HR PRN IV PAIN Last administered on 01/30/17 19:22; Start 01/29/17 at 11:45 Sodium Chloride (Iv Sodium Chloride 0.9% 1000ml Bag) 1,000 ml @ 1,000 mls/hr Q1H PRN IV hypotension; Start 01/29/17 at 12:55; Stop 01/29/17 at 18:54; Status DC Diphenhydramine HCl (Benadryl) 25 mg 1X PRN PRN IV ITCHING Last administered on 01/29/17 19:12; Start 01/29/17 at 13:00; Stop 01/30/17 at 12:59; Status DC Diphenhydramine HCl (Benadryl) 25 mg 1X PRN PRN IV ITCHING Last administered on 01/29/17 13:16; Start 01/29/17 at 13:00; Stop 01/30/17 at 12:59; Status DC Info (PHARMACY MONITORING -- do not chart) 1 each PRN DAILY PRN MC SEE COMMENTS ; Start 01/29/17 at 13:00; Status UNV Info (PHARMACY MONITORING -- do not chart) 1 each PRN DAILY PRN MC SEE COMMENTS ; Start 01/29/17 at 13:00 Nitroglycerin (Nitrostat) 0.4 mg STK-MED ONCE SL ; Start 01/29/17 at 16:55; Stop 01/29/17 at 16:56; Status DC Heparin Sodium (Porcine) 4000 unit 4,000 unit 1X ONCE IV Last administered on 01/29/17 17:37; Start 01/29/17 at 17:30; Stop 01/29/17 at 17:31; Status DC Heparin Sodium/ Sodium Chloride 500 ml @ As Directed STK-MED ONCE .ROUTE ; Start 01/29/17 at 17:54; Stop 01/29/17 at 17:55; Status DC Lidocaine HCl 20 ml STK-MED ONCE .ROUTE ; Start 01/29/17 at 17:54; Stop at 17:55; Status DC Iodixanol (Visipaque 320) 100 ml STK-MED ONCE .ROUTE ; Start 01/29/17 at 17:54; Stop 01/29/17 at 17:55; Status DC Metoprolol Tartrate (Lopressor) 5 mg STK-MED ONCE .ROUTE ; Start 01/29/17 at 18: 05; Stop 01/29/17 at 18:06; Status DC Fentanyl Citrate (Fentanyl 2ml Vial) 100 mcg STK-MED ONCE .ROUTE ; Start at 18:05; Stop 01/29/17 at 18:06; Status DC Midazolam HCl 2 mg 2 mg STK-MED ONCE .ROUTE ; Start 01/29/17 at 18:05; Stop at 18:06; Status DC Heparin Sodium/ Dextrose 500 ml @ As Directed STK-MED ONCE IV ; Start 01/29/17 at 18:18; Stop 01/29/17 at 18:19; Status DC Heparin Sodium (Porcine) 10,000 unit STK-MED ONCE .ROUTE ; Start 01/29/17 at 18: 18; Stop 01/29/17 at 18:19; Status DC Metoprolol Tartrate (Lopressor) 5 mg STK-MED ONCE .ROUTE ; Start 01/29/17 at 18: 25; Stop 01/29/17 at 18:26; Status DC Heparin Sodium/ Sodium Chloride 1,000 unit 1X ONCE IART Last administered on 18:51; Start 01/29/17 at 18:45; Stop 01/29/17 at 18:53; Status DC Heparin Sodium/ Sodium Chloride 1,000 unit 1X ONCE IART Last administered on 18:51; Start 01/29/17 at 18:45; Stop 01/29/17 at 18:53; Status DC Midazolam HCl (Versed) 1 mg 1X ONCE IV Last administered on 01/29/17 18:53; Start 01/29/17 at 18:45; Stop 01/29/17 at 18:53; Status DC Fentanyl Citrate (Fentanyl 2ml Vial) 50 mcg 1X ONCE IV Last administered on 18:53; Start 01/29/17 at 18:45; Stop 01/29/17 at 18:53; Status DC Iodixanol (Visipaque 320) 105 ml 1X ONCE IART Last administered on 01/29/17 18:52; Start 01/29/17 at 18:45; Stop 01/29/17 at 18:53; Status DC Heparin Sodium (Porcine) 4000 unit 4,000 unit 1X ONCE IV Last administered on 01/29/17 18:53; Start 01/29/17 at 18:45; Stop 01/29/17 at 18:53; Status DC Heparin Sodium/ Dextrose 500 ml @ 20 mls/hr CONT PRN IV SEE I/O RECORD; Start 01/29/17 at 18:24; Stop 01/30/17 at 14:01; Status DC Metoprolol Tartrate (Lopressor) 10 mg 1X ONCE IVP Last administered on 18:52; Start 01/29/17 at 18:45; Stop 01/29/17 at 18:53; Status DC Lidocaine HCl 10 ml 1X ONCE IJ Last administered on 01/29/17 18:52; Start at 18:45; Stop 01/29/17 at 18:53; Status DC Sodium Chloride (Normal Saline Flush) 3 ml QSHIFT PRN IV AFTER MEDS AND BLOOD DRAWS; Start 01/29/17 at 18:45 Docusate Sodium (Colace) 100 mg BID PO Last administered on 02/01/17 08:03; Start 01/29/17 at 21:00 Fentanyl Citrate (Fentanyl 2ml Vial) 50 mcg PRN Q1HR PRN IV Moderate or severe pain Last administered on 01/29/17 23:25; Start 01/29/17 at 18:45 Cyclobenzaprine HCl (Flexeril) 10 mg PRN TID PRN PO MUSCLE SPASMS Last administered on 01/30/17 05:22; Start 01/29/17 at 18:45 Ondansetron HCl (Zofran) 4 mg PRN Q6HRS PRN IV NAUSEA/VOMITING; Start 01/29/17 at 18:45 Nitroglycerin (Nitrostat) 0.4 mg PRN Q5MIN PRN SL CHEST PAIN; Start 01/29/17 at 18:45 Acetaminophen/ Hydrocodone Bitart (Lortab 5/325) 1 tab PRN Q4HRS PRN PO MILD PAIN Last administered on 01/31/17 18:09; Start 01/29/17 at 18:45 Diltiazem HCl 5 mg 5 mg 1X ONCE IVP Last administered on 01/29/17 19:23; Start 01/29/17 at 19:15; Stop 01/29/17 at 19:18; Status DC Diltiazem HCl/ Dextrose (Cardizem) 125 ml @ 0 mls/hr CONT PRN IV SEE I/O RECORD ; Start 01/29/17 at 19:15 Diphenhydramine HCl (Benadryl) 50 mg PRN Q8HRS PRN IVP ITCHING Last administered on 01/31/17 19:55; Start 01/29/17 at 19:15 Nitroglycerin (Nitrostat) 0.4 mg STK-MED ONCE SL ; Start 01/29/17 at 17:00; Stop 01/30/17 at 08:02; Status DC Info (Anti-Coagulation Monitoring By Pharmacy) 1 each PRN DAILY PRN MC SEE COMMENTS Last administered on 01/30/17 10:49; Start 01/30/17 at 10:45 Heparin Sodium (Porcine) 3000 unit 3,000 unit 1X ONCE IV Last administered on 01/30/17 17:36; Start 01/30/17 at 18:00; Stop 01/30/17 at 18:01; Status DC Heparin Sodium/ Dextrose 500 ml @ 24 mls/hr CONT PRN IV SEE I/O RECORD Last administered on 02/01/17 08:02; Start 01/30/17 at 18:00 Sodium Chloride (Iv Sodium Chloride 0.9% 1000ml Bag) 1,000 ml @ 50 mls/hr Q20H IV Last administered on 01/31/17 21:51; Start 01/31/17 at 02:45 Dextrose 25 gm 1X ONCE IV Last administered on 01/31/17 06:05; Start at 06:30; Stop 01/31/17 at 06:31; Status DC Insulin Human Regular (Novolin R Vial) 10 unit 1X ONCE IV Last administered on 01/31/17 06:09; Start 01/31/17 at 06:30; Stop 01/31/17 at 06:31; Status DC Dextrose 25 gm 25 gm 1X ONCE IV Last administered on 01/31/17 09:04; Start at 09:00; Stop 01/31/17 at 09:03; Status DC Sodium Chloride 1,000 ml @ 1,000 mls/hr Q1H PRN IV hypotension; Start 01/31/17 at 09:28; Stop 01/31/17 at 15:27; Status DC Albumin Human (Albuminar) 200 ml @ 200 mls/hr 1X PRN PRN IV Hypotension; Start 01/31/17 at 09:30; Stop 01/31/17 at 15:29; Status DC Acetaminophen (Tylenol) 500 mg 1X PRN PRN PO MILD PAIN / TEMP; Start 01/31/17 at 09:30; Stop 02/01/17 at 09:29; Status DC Diphenhydramine HCl (Benadryl) 25 mg 1X PRN PRN IV ITCHING Last administered on 01/31/17t 18:05; Start 01/31/17 at 09:30; Stop 02/01/17 at 09:29; Status DC Diphenhydramine HCl (Benadryl) 25 mg 1X PRN PRN IV ITCHING; Start 01/31/17 at 09:30; Stop 02/01/17 at 09:29; Status DC Info (PHARMACY MONITORING -- do not chart) 1 each PRN DAILY PRN MC SEE COMMENTS ; Start 01/31/17 at 09:30; Status UNV Active Scripts Active Clopidogrel (Clopidogrel Bisulfate) 75 Mg Tablet 1 Tab PO DAILY Isosorbide Mononitrate Er (Isosorbide Mononitrate) 30 Mg Tab.er.24h 30 Mg PO DAILY Flomax (Tamsulosin Hcl) 0.4 Mg Cap.er.24h 0.4 Mg PO QHS Reported Hydrocodone-Apap 5-325 (Hydrocodone Bit/Acetaminophen) 1 Each Tablet 1 Tab PO PRN Q6HRS PRN Furosemide 80 Mg Tablet 1 Tab PO BID Nephro-Chilo Tablet (Folic Acid/Vitamin B Comp W-C) 0.8 Mg Tablet 1 Tab PO DAILY Paroxetine Hcl 20 Mg Tablet 40 Mg PO DAILY Tums (Calcium Carbonate) 200 Mg Tab.chew 800 Mg PO TIDAC Omeprazole Magnesium 20 Mg Capsule.dr 20 Mg PO DAILY Clonidine Hcl 0.3 Mg Tablet 1 Tab PO DAILY Hydralazine Hcl 100 Mg Tablet 100 Mg PO TID LAST DOSE: 02/24/16 AFTERNOON NEXT DOSE: 02/24/16 BEDTIME Amlodipine Besylate 10 Mg Tablet 10 Mg PO BID LAST DOSE: 02/24/16 AM NEXT DOSE: 02/25/16 AM Xanax (Alprazolam) 0.5 Mg Tablet 0.5 Mg PO Q6HRS PRN LAST DOSE: 02/23/16 BEDTIME NEXT DOSE: 02/24/16 BEDTIME Losartan Potassium 100 Mg Tablet 100 Mg PO HS LAST DOSE: 02/23/16 BEDTIME NEXT DOSE: 02/24/16 BEDTIME Metoprolol Tartrate 100 Mg Tablet 100 Mg PO BID LAST DOSE: 02/24/16 AM NEXT DOSE: 02/24/16 BEDTIME Lillian Chewable (Aspirin) 81 Mg Tab.chew 324 Mg PO DAILY LAST DOSE: 02/24/16 AM NEXT DOSE: 02/25/16 AM Vitals/I & O Vital Sign - Last 24 Hours 01/31/17 01/31/17 01/31/17 01/31/17 10:00 11:00 12:00 12:00 Temp 98.8 98.8 Pulse 64 62 60 Resp 14 12 14 B/P 133/66 125/43 134/63 Pulse Ox 97 100 100 O2 Delivery Nasal Cannula Nasal Cannula Nasal Cannula Nasal Cannula O2 Flow Rate 4.0 4.0 4.0 4.0 01/31/17 01/31/17 01/31/17 01/31/17 14:00 14:00 15:00 16:00 Pulse 73 70 70 Resp 15 14 B/P 115/59 103/65 103/65 Pulse Ox 96 93 O2 Delivery Nasal Cannula Nasal Cannula Nasal Cannula O2 Flow Rate 4.0 4.0 4.0 01/31/17 01/31/17 01/31/17 01/31/17 16:00 18:09 20:00 20:00 Temp 98.0 98.2 98.0 98.2 Pulse 66 74 Resp 14 22 14 B/P 110/63 127/46 Pulse Ox 100 100 100 O2 Delivery Nasal Cannula Room Air Nasal Cannula Nasal Cannula O2 Flow Rate 4.0 4.0 4.0 01/31/17 01/31/17 01/31/17 01/31/17 21:52 21:53 21:53 21:54 Pulse 79 76 76 76 B/P 146/63 146/63 146/63 146/63 02/01/17 02/01/17 02/01/17 02/01/17 00:00 00:00 04:00 04:06 Temp 98.8 98.1 98.8 98.1 Pulse 76 68 Resp 20 18 B/P 127/50 119/56 Pulse Ox 98 100 O2 Delivery Nasal Cannula Nasal Cannula Nasal Cannula Nasal Cannula O2 Flow Rate 4.0 4.0 4.0 4.0 02/01/17 08:04 Pulse 70 B/P 132/57 Intake and Output 01/31/17 01/31/17 02/01/17 15:00 23:00 07:00 Intake Total 1126 ml 1147 ml Output Total 0 ml 0 ml 0 ml Balance 0 ml 1126 ml 1147 ml Nutrition Consultation Dietary Evaluation: Recommendations by RD: Increase Calorie Intake Comments: Boost breeze TID - 250kcal and 9g protein per serving Expected Outcomes/Goals: diet advancement Malnutrition Findings: Weight Status: Overweight ESTEFANÍA MANZO MD Feb 01, 2017 09:42
[2017-02-01] MEDS: DIPHENHYDRAMINE 50 MG/ML VIAL IVP PRN ×2 (10:14→17:09)
--- NOTE | 2017-02-01 10:16 | PDOC ---
PROGRESS NOTES Chief Complaint Chief Complaint Pancreatitis ACS ASSESSMENT AND PLAN: 1. Pancreatitis: recurrent panc w/o EtOH hx, and s/p CCY. resolved 2. STEMI: EKG changes (incl brief afib). cath on 01/[address] Kiran: multivessel dz. CABG planned for , 02/05 (hold plavix x5d). cont cardiac meds 3. ESRD: on HD, Dr Escobar following 4. Anemia: stable around 10. 2/2 ESRD. EPO, iron with HD as indicated 5. Prophylaxis: PPI 6. AMS : resolved 7. Disp: transfer to CCU Vitals Vitals Vital Signs Date Time Temp Pulse Resp B/P Pulse Ox O2 Delivery O2 Flow Rate FiO2 02/01/17 08:04 70 132/57 02/01/17 04:06 Nasal Cannula 4.0 02/01/17 04:00 98.1 18 100 98.1 Physical Exam General: Alert, Oriented X3, Cooperative, No acute distress Heart: Normal S1, Normal S2, Other (irreg) Abdomen: Normal bowel sounds, Soft, No tenderness Labs LABS Laboratory Tests Test 01/31/17 11:02 01/31/17 11:25 02/01/17 05:25 Glucose (Fingerstick) 127mg/dL (70-99) Potassium Level 4.1mmol/L (3.5-5.1) 4.0mmol/L (3.5-5.1) White Blood Count 5.7x10^3/uL (4.0-11.0) Red Blood Count 2.80x10^6/uL (4.30-5.70) Hemoglobin 8.6g/dL (13.0-17.5) Hematocrit 26.0% (39.0-53.0) Mean Corpuscular Volume 93fL (79-100) Mean Corpuscular Hemoglobin 31pg (25-35) Mean Corpuscular Hemoglobin Concent 33g/dL (31-37) Red Cell Distribution Width 13.7% (11.5-14.5) Platelet Count 153x10^3/uL (140-400) Neutrophils (%) (Auto) 71% (31-73) Lymphocytes (%) (Auto) 14% (24-48) Monocytes (%) (Auto) 14% (0-9) Eosinophils (%) (Auto) 1% (0-3) Basophils (%) (Auto) 1% (0-3) Neutrophils # (Auto) 4.0x10^3uL (1.8-7.7) Lymphocytes # (Auto) 0.8x10^3/uL (1.0-4.8) Monocytes # (Auto) 0.8x10^3/uL (0.0-1.1) Eosinophils # (Auto) 0.1x10^3/uL (0.0-0.7) Basophils # (Auto) 0.0x10^3/uL (0.0-0.2) Heparin Anti-Xa Act, Unfractionated 0.33IU/mL (0.30-0.70) Sodium Level 138mmol/L (136-145) Chloride Level 96mmol/L (98-107) Carbon Dioxide Level 32mmol/L (21-32) Anion Gap 10 (6-14) Blood Urea Nitrogen 36mg/dL (8-26) Creatinine 7.5mg/dL (0.7-1.3) Estimated GFR (Cockcroft-Gault) 7.5 Glucose Level 122mg/dL (70-99) Calcium Level 7.8mg/dL (8.5-10.1) Review of Systems Review of Systems feels well, no CP, SOB or other c/o Nutrition Consultation Dietary Evaluation: Recommendations by RD: Increase Calorie Intake Comments: Boost breeze TID - 250kcal and 9g protein per serving Expected Outcomes/Goals: diet advancement Malnutrition Findings: Weight Status: Overweight WENDI GUTIERREZ MD Feb 01, 2017 10:16
--- NOTE | 2017-02-01 10:50 | PDOC ---
Renal-Progress Notes Subjective Notes Notes BETTER History of Present Illness Hx of present illness BETTER Vitals Vitals Vital Signs Date Time Temp Pulse Resp B/P Pulse Ox O2 Delivery O2 Flow Rate FiO2 02/01/17 08:04 70 132/57 02/01/17 04:06 Nasal Cannula 4.0 02/01/17 04:00 98.1 18 100 98.1 Weight Weight [ ] I.O. Intake and Output Intake and Output 02/01/17 07:00 Intake Total 2273 ml Output Total 0 ml Balance 2273 ml Intake Oral 720 ml IV Total 1553 ml Output Urine Total 0 ml Labs Labs Laboratory Tests Test 01/31/17 11:02 01/31/17 11:25 02/01/17 05:25 Glucose (Fingerstick) 127mg/dL (70-99) Potassium Level 4.1mmol/L (3.5-5.1) 4.0mmol/L (3.5-5.1) White Blood Count 5.7x10^3/uL (4.0-11.0) Red Blood Count 2.80x10^6/uL (4.30-5.70) Hemoglobin 8.6g/dL (13.0-17.5) Hematocrit 26.0% (39.0-53.0) Mean Corpuscular Volume 93fL (79-100) Mean Corpuscular Hemoglobin 31pg (25-35) Mean Corpuscular Hemoglobin Concent 33g/dL (31-37) Red Cell Distribution Width 13.7% (11.5-14.5) Platelet Count 153x10^3/uL (140-400) Neutrophils (%) (Auto) 71% (31-73) Lymphocytes (%) (Auto) 14% (24-48) Monocytes (%) (Auto) 14% (0-9) Eosinophils (%) (Auto) 1% (0-3) Basophils (%) (Auto) 1% (0-3) Neutrophils # (Auto) 4.0x10^3uL (1.8-7.7) Lymphocytes # (Auto) 0.8x10^3/uL (1.0-4.8) Monocytes # (Auto) 0.8x10^3/uL (0.0-1.1) Eosinophils # (Auto) 0.1x10^3/uL (0.0-0.7) Basophils # (Auto) 0.0x10^3/uL (0.0-0.2) Heparin Anti-Xa Act, Unfractionated 0.33IU/mL (0.30-0.70) Sodium Level 138mmol/L (136-145) Chloride Level 96mmol/L (98-107) Carbon Dioxide Level 32mmol/L (21-32) Anion Gap 10 (6-14) Blood Urea Nitrogen 36mg/dL (8-26) Creatinine 7.5mg/dL (0.7-1.3) Estimated GFR (Cockcroft-Gault) 7.5 Glucose Level 122mg/dL (70-99) Calcium Level 7.8mg/dL (8.5-10.1) Review of Systems Constitutional: yes: alert, oriented Ears/Nose/Throat: Yes: no symptom reported Eyes: Yes: no symptom reported Pulmonary: Yes no symptom reported Cardiovascular: Yes no symptom reported Gastrointestional: Yes: no symptom reported Musculoskeletal: Yes: no symptom reported Psychiatric/Neurological: Yes: no symptom reported Physical Exam General Appearance: no apparent distress Respiratory: bilateral CTA Heart: S1S2 Abdomen: soft Extremities: pulses present Neurology: alert Assessment Assessment IMP ESRD ANEMIA AMI CAD PLAN HD TOMORROW CABG PENDING FOR SATURDAY D/ CTS CONT JAYDE MILLER MD Feb 01, 2017 10:50
--- NOTE | 2017-02-01 10:58 | RAD ---
CT of the chest without contrast, 02/01/2017: History: Right upper lobe nodule Noncontrast scans were obtained and compared to a study from 10/19/2016. There is a calcified granuloma laterally in the right upper lobe. In the anterolateral aspect of the right pulmonary apex there is a 11 mm subsolid opacity abutting the pleura as seen on image 33 of series #3. It was not evident on the previous study. There is a peripheral groundglass opacity in the lateral aspect of the right upper lobe as seen on image 61 of series #3 which was also not present on the previous study. It measures nearly 3 cm. This is probably an inflammatory process. A similar new peripheral groundglass opacity is present medially in the left upper lobe as seen on image 109 of series #3. It measures approximately 2 cm. There are new mild linear opacities in both lower lobes, worse on the right, probably due to atelectasis. There are small peripheral subpleural opacities in the right lower lobe posteriorly and in the left posterior costophrenic angle, probably due to atelectasis. There is a trace amount of bilateral pleural fluid in the posterior costophrenic angles. There is moderate calcific plaquing of the thoracic aorta and coronary arteries. There is no evidence of aortic aneurysm. A left Port-A-Cath is in place extending into the superior vena cava. No mediastinal adenopathy is seen. Polycystic renal disease is present with scattered renal parenchymal calcifications. The kidneys are incompletely visualized on the chest images. IMPRESSION: 1. Mild to moderate atelectasis in both lower lobes, more so on the right. 2. Trace bilateral pleural effusions. 3. New small peripheral subsolid opacities in both upper lobes, likely inflammatory in nature. CT follow-up is suggested to exclude a neoplastic etiology. 4. Calcific plaquing of the aorta and coronary arteries. 5. Polycystic renal disease. PQRS Compliance Statement: One or more of the following individualized dose reduction techniques were utilized for this examination: 1. Automated exposure control 2. Adjustment of the mA and/or kV according to patient size 3. Use of iterative reconstruction technique
[2017-02-01] MEDS ORDERED: FENTANYL PF 100 MCG/2 ML VIAL. IV PRN (15:15)
[2017-02-01] MEDS: HYDROCODONE/APAP 5/325MG TABLET. PO PRN ×2 (16:11→21:07)
--- NOTE | 2017-02-01 17:42 | PDOC ---
G I PROGRESS NOTE Reason for Follow-up Abd pain pancreatitis Subjective Tolerating PO Physical Exam Lungs clear CV S1 S2 ABD +BS, soft, nontender Review of Relevant I have reviewed the following items dionte (where applicable) has been applied. Labs Laboratory Tests Test 01/31/17 05:10 01/31/17 08:57 01/31/17 09:06 01/31/17 11:02 White Blood Count 8.8x10^3/uL (4.0-11.0) Red Blood Count 3.34x10^6/uL (4.30-5.70) Hemoglobin 10.4g/dL (13.0-17.5) Hematocrit 31.2% (39.0-53.0) Mean Corpuscular Volume 93fL (79-100) Mean Corpuscular Hemoglobin 31pg (25-35) Mean Corpuscular Hemoglobin Concent 33g/dL (31-37) Red Cell Distribution Width 14.2% (11.5-14.5) Platelet Count 186x10^3/uL (140-400) Neutrophils (%) (Auto) 77% (31-73) Lymphocytes (%) (Auto) 10% (24-48) Monocytes (%) (Auto) 12% (0-9) Eosinophils (%) (Auto) 1% (0-3) Basophils (%) (Auto) 1% (0-3) Neutrophils # (Auto) 6.7x10^3uL (1.8-7.7) Lymphocytes # (Auto) 0.8x10^3/uL (1.0-4.8) Monocytes # (Auto) 1.1x10^3/uL (0.0-1.1) Eosinophils # (Auto) 0.1x10^3/uL (0.0-0.7) Basophils # (Auto) 0.0x10^3/uL (0.0-0.2) Heparin Anti-Xa Act, Unfractionated 0.45IU/mL (0.30-0.70) Sodium Level 137mmol/L (136-145) Potassium Level 6.9mmol/L (3.5-5.1) Chloride Level 97mmol/L (98-107) Carbon Dioxide Level 22mmol/L (21-32) Anion Gap 18 (6-14) Blood Urea Nitrogen 67mg/dL (8-26) Creatinine 11.2mg/dL (0.7-1.3) Estimated GFR (Cockcroft-Gault) 4.7 Glucose Level 70mg/dL (70-99) Calcium Level 7.6mg/dL (8.5-10.1) Glucose (Fingerstick) 28mg/dL (70-99) 165mg/dL (70-99) 127mg/dL (70-99) Test 01/31/17 11:25 02/01/17 05:25 Potassium Level 4.1mmol/L (3.5-5.1) 4.0mmol/L (3.5-5.1) White Blood Count 5.7x10^3/uL (4.0-11.0) Red Blood Count 2.80x10^6/uL (4.30-5.70) Hemoglobin 8.6g/dL (13.0-17.5) Hematocrit 26.0% (39.0-53.0) Mean Corpuscular Volume 93fL (79-100) Mean Corpuscular Hemoglobin 31pg (25-35) Mean Corpuscular Hemoglobin Concent 33g/dL (31-37) Red Cell Distribution Width 13.7% (11.5-14.5) Platelet Count 153x10^3/uL (140-400) Neutrophils (%) (Auto) 71% (31-73) Lymphocytes (%) (Auto) 14% (24-48) Monocytes (%) (Auto) 14% (0-9) Eosinophils (%) (Auto) 1% (0-3) Basophils (%) (Auto) 1% (0-3) Neutrophils # (Auto) 4.0x10^3uL (1.8-7.7) Lymphocytes # (Auto) 0.8x10^3/uL (1.0-4.8) Monocytes # (Auto) 0.8x10^3/uL (0.0-1.1) Eosinophils # (Auto) 0.1x10^3/uL (0.0-0.7) Basophils # (Auto) 0.0x10^3/uL (0.0-0.2) Heparin Anti-Xa Act, Unfractionated 0.33IU/mL (0.30-0.70) Sodium Level 138mmol/L (136-145) Chloride Level 96mmol/L (98-107) Carbon Dioxide Level 32mmol/L (21-32) Anion Gap 10 (6-14) Blood Urea Nitrogen 36mg/dL (8-26) Creatinine 7.5mg/dL (0.7-1.3) Estimated GFR (Cockcroft-Gault) 7.5 Glucose Level 122mg/dL (70-99) Calcium Level 7.8mg/dL (8.5-10.1) Laboratory Tests Test 02/01/17 05:25 White Blood Count 5.7x10^3/uL (4.0-11.0) Red Blood Count 2.80x10^6/uL (4.30-5.70) Hemoglobin 8.6g/dL (13.0-17.5) Hematocrit 26.0% (39.0-53.0) Mean Corpuscular Volume 93fL (79-100) Mean Corpuscular Hemoglobin 31pg (25-35) Mean Corpuscular Hemoglobin Concent 33g/dL (31-37) Red Cell Distribution Width 13.7% (11.5-14.5) Platelet Count 153x10^3/uL (140-400) Neutrophils (%) (Auto) 71% (31-73) Lymphocytes (%) (Auto) 14% (24-48) Monocytes (%) (Auto) 14% (0-9) Eosinophils (%) (Auto) 1% (0-3) Basophils (%) (Auto) 1% (0-3) Neutrophils # (Auto) 4.0x10^3uL (1.8-7.7) Lymphocytes # (Auto) 0.8x10^3/uL (1.0-4.8) Monocytes # (Auto) 0.8x10^3/uL (0.0-1.1) Eosinophils # (Auto) 0.1x10^3/uL (0.0-0.7) Basophils # (Auto) 0.0x10^3/uL (0.0-0.2) Heparin Anti-Xa Act, Unfractionated 0.33IU/mL (0.30-0.70) Sodium Level 138mmol/L (136-145) Potassium Level 4.0mmol/L (3.5-5.1) Chloride Level 96mmol/L (98-107) Carbon Dioxide Level 32mmol/L (21-32) Anion Gap 10 (6-14) Blood Urea Nitrogen 36mg/dL (8-26) Creatinine 7.5mg/dL (0.7-1.3) Estimated GFR (Cockcroft-Gault) 7.5 Glucose Level 122mg/dL (70-99) Calcium Level 7.8mg/dL (8.5-10.1) Medications Current Medications Hydromorphone HCl (Dilaudid) 1 mg 1X ONCE IV Last administered on 01/28/17 23 :57; Start 01/28/17 at 23:30; Stop 01/28/17 at 23:31; Status DC Ondansetron HCl 4 mg 4 mg 1X ONCE IV Last administered on 01/28/17 23:57; Start 01/28/17 at 23:30; Stop 01/28/17 at 23:31; Status DC Sodium Chloride (Iv Sodium Chloride 0.9% 500ml Bag) 500 ml @ 0 mls/hr 1X ONCE IV Last administered on 01/28/17 23:39; Start 01/28/17 at 23:30; Stop at 23:31; Status DC Diphenhydramine HCl (Benadryl) 50 mg 1X ONCE IVP Last administered on 00:29; Start 01/29/17 at 00:30; Stop 01/29/17 at 00:31; Status DC Diphenhydramine HCl (Benadryl) 50 mg STK-MED ONCE .ROUTE ; Start 01/29/17 at 00: 26; Stop 01/29/17 at 00:27; Status DC Morphine Sulfate 4 mg 1X ONCE IV Last administered on 01/29/17 03:55; Start 01/29/17 at 02:15; Stop 01/29/17 at 02:16; Status DC Ondansetron HCl (Zofran) 4 mg PRN Q8HRS PRN IV NAUSEA/VOMITING; Start 01/29/17 at 03:00; Stop 01/30/17 at 02:59; Status DC Morphine Sulfate 4 mg 4 mg PRN Q2HR PRN IV PAIN Last administered on 01/29/17 09:59; Start 01/29/17 at 03:00; Stop 01/29/17 at 11:47; Status DC Sodium Chloride (Iv Sodium Chloride 0.9% 1000ml Bag) 1,000 ml @ 50 mls/hr Q20H IV Last administered on 01/30/17 07:28; Start 01/29/17 at 02:12; Stop at 02:11; Status DC Alprazolam (Xanax) 0.5 mg PRN Q6HRS PRN PO ANXIETY / AGITATION Last administered on 02/01/17 14:30; Start 01/29/17 at 11:30 Amlodipine Besylate (Norvasc) 10 mg BID PO Last administered on 01/31/17 21:54 ; Start 01/29/17 at 12:00 Aspirin (Children'S Aspirin) 324 mg DAILY PO ; Start 01/29/17 at 12:00; Stop at 18:32; Status DC Calcium Carbonate/ Glycine (Tums) 800 mg TIDAC PO Last administered on 17:09; Start 01/29/17 at 11:30 Clonidine HCl (Catapres) 0.3 mg DAILY PO ; Start 01/30/17 at 09:00 Clopidogrel Bisulfate (Plavix) 75 mg DAILY PO ; Start 01/29/17 at 12:00; Stop at 09:45; Status DC Vitamin B Complex/ Vitamin C (Nephro-Chilo) 1 tab DAILY PO Last administered on 02/01/17 08:02; Start 01/29/17 at 12:00 Furosemide (Lasix) 80 mg [id number] PO Last administered on 02/01/17 14:31; Start 01/29/17 at 14:00 Acetaminophen/ Hydrocodone Bitart (Lortab 5/325) 1 tab PRN Q6HRS PRN PO PAIN; Start 01/29/17 at 11:30; Stop 01/29/17 at 18:58; Status DC Isosorbide Mononitrate (Imdur) 30 mg DAILY PO Last administered on 02/01/17 08 :04; Start 01/29/17 at 12:00 Paroxetine HCl (Paxil) 40 mg DAILY PO Last administered on 02/01/17 08:05; Start 01/29/17 at 12:00 Tamsulosin HCl (Flomax) 0.4 mg QHS PO Last administered on 01/31/17 21:51; Start 01/29/17 at 21:00 Hydralazine HCl (Apresoline) 100 mg TID PO Last administered on 01/31/17 21:52 ; Start 01/29/17 at 14:00 Losartan Potassium (Cozaar) 100 mg QHS PO Last administered on 01/31/17 21:53 ; Start 01/29/17 at 21:00 Metoprolol Tartrate (Lopressor) 100 mg BID PO Last administered on 01/31/17 21 :53; Start 01/29/17 at 12:00 Pantoprazole Sodium (Protonix) 40 mg DAILYAC PO Last administered on 02/01/17 08:05; Start 01/29/17 at 12:00 Darbepoetin Percy (Aranesp) 60 mcg WEEKLYHS SQ ; Start 02/02/17 at 21:00 Morphine Sulfate 6 mg 6 mg PRN Q2HR PRN IV PAIN Last administered on 01/30/17 19:22; Start 01/29/17 at 11:45; Stop 02/01/17 at 15:20; Status DC Sodium Chloride (Iv Sodium Chloride 0.9% 1000ml Bag) 1,000 ml @ 1,000 mls/hr Q1H PRN IV hypotension; Start 01/29/17 at 12:55; Stop 01/29/17 at 18:54; Status DC Diphenhydramine HCl (Benadryl) 25 mg 1X PRN PRN IV ITCHING Last administered on 01/29/17 19:12; Start 01/29/17 at 13:00; Stop 01/30/17 at 12:59; Status DC Diphenhydramine HCl (Benadryl) 25 mg 1X PRN PRN IV ITCHING Last administered on 01/29/17 13:16; Start 01/29/17 at 13:00; Stop 01/30/17 at 12:59; Status DC Info (PHARMACY MONITORING -- do not chart) 1 each PRN DAILY PRN MC SEE COMMENTS ; Start 01/29/17 at 13:00; Status UNV Info (PHARMACY MONITORING -- do not chart) 1 each PRN DAILY PRN MC SEE COMMENTS ; Start 01/29/17 at 13:00 Nitroglycerin (Nitrostat) 0.4 mg STK-MED ONCE SL ; Start 01/29/17 at 16:55; Stop 01/29/17 at 16:56; Status DC Heparin Sodium (Porcine) 4000 unit 4,000 unit 1X ONCE IV Last administered on 01/29/17t 17:37; Start 01/29/17 at 17:30; Stop 01/29/17 at 17:31; Status DC Heparin Sodium/ Sodium Chloride 500 ml @ As Directed STK-MED ONCE .ROUTE ; Start 01/29/17 at 17:54; Stop 01/29/17 at 17:55; Status DC Lidocaine HCl 20 ml STK-MED ONCE .ROUTE ; Start 01/29/17 at 17:54; Stop at 17:55; Status DC Iodixanol (Visipaque 320) 100 ml STK-MED ONCE .ROUTE ; Start 01/29/17 at 17:54; Stop 01/29/17 at 17:55; Status DC Metoprolol Tartrate (Lopressor) 5 mg STK-MED ONCE .ROUTE ; Start 01/29/17 at 18: 05; Stop 01/29/17 at 18:06; Status DC Fentanyl Citrate (Fentanyl 2ml Vial) 100 mcg STK-MED ONCE .ROUTE ; Start at 18:05; Stop 01/29/17 at 18:06; Status DC Midazolam HCl 2 mg 2 mg STK-MED ONCE .ROUTE ; Start 01/29/17 at 18:05; Stop at 18:06; Status DC Heparin Sodium/ Dextrose 500 ml @ As Directed STK-MED ONCE IV ; Start 01/29/17 at 18:18; Stop 01/29/17 at 18:19; Status DC Heparin Sodium (Porcine) 10,000 unit STK-MED ONCE .ROUTE ; Start 01/29/17 at 18: 18; Stop 01/29/17 at 18:19; Status DC Metoprolol Tartrate (Lopressor) 5 mg STK-MED ONCE .ROUTE ; Start 01/29/17 at 18: 25; Stop 01/29/17 at 18:26; Status DC Heparin Sodium/ Sodium Chloride 1,000 unit 1X ONCE IART Last administered on t 18:51; Start 01/29/17 at 18:45; Stop 01/29/17 at 18:53; Status DC Heparin Sodium/ Sodium Chloride 1,000 unit 1X ONCE IART Last administered on 18:51; Start 01/29/17 at 18:45; Stop 01/29/17 at 18:53; Status DC Midazolam HCl (Versed) 1 mg 1X ONCE IV Last administered on 01/29/17 18:53; Start 01/29/17 at 18:45; Stop 01/29/17 at 18:53; Status DC Fentanyl Citrate (Fentanyl 2ml Vial) 50 mcg 1X ONCE IV Last administered on 18:53; Start 01/29/17 at 18:45; Stop 01/29/17 at 18:53; Status DC Iodixanol (Visipaque 320) 105 ml 1X ONCE IART Last administered on 01/29/17 18:52; Start 01/29/17 at 18:45; Stop 01/29/17 at 18:53; Status DC Heparin Sodium (Porcine) 4000 unit 4,000 unit 1X ONCE IV Last administered on 01/29/17 18:53; Start 01/29/17 at 18:45; Stop 01/29/17 at 18:53; Status DC Heparin Sodium/ Dextrose 500 ml @ 20 mls/hr CONT PRN IV SEE I/O RECORD; Start 01/29/17 at 18:24; Stop 01/30/17 at 14:01; Status DC Metoprolol Tartrate (Lopressor) 10 mg 1X ONCE IVP Last administered on 18:52; Start 01/29/17 at 18:45; Stop 01/29/17 at 18:53; Status DC Lidocaine HCl 10 ml 1X ONCE IJ Last administered on 01/29/17 18:52; Start at 18:45; Stop 01/29/17 at 18:53; Status DC Sodium Chloride (Normal Saline Flush) 3 ml QSHIFT PRN IV AFTER MEDS AND BLOOD DRAWS; Start 01/29/17 at 18:45 Docusate Sodium (Colace) 100 mg BID PO Last administered on 02/01/17 08:03; Start 01/29/17 at 21:00 Fentanyl Citrate (Fentanyl 2ml Vial) 50 mcg PRN Q1HR PRN IV Moderate or severe pain Last administered on 01/29/17 23:25; Start 01/29/17 at 18:45 Cyclobenzaprine HCl (Flexeril) 10 mg PRN TID PRN PO MUSCLE SPASMS Last administered on 01/30/17 05:22; Start 01/29/17 at 18:45 Ondansetron HCl (Zofran) 4 mg PRN Q6HRS PRN IV NAUSEA/VOMITING; Start 01/29/17 at 18:45 Nitroglycerin (Nitrostat) 0.4 mg PRN Q5MIN PRN SL CHEST PAIN; Start 01/29/17 at 18:45 Acetaminophen/ Hydrocodone Bitart (Lortab 5/325) 1 tab PRN Q4HRS PRN PO MILD PAIN Last administered on 02/01/17 16:11; Start 01/29/17 at 18:45 Diltiazem HCl 5 mg 5 mg 1X ONCE IVP Last administered on 01/29/17 19:23; Start 01/29/17 at 19:15; Stop 01/29/17 at 19:18; Status DC Diltiazem HCl/ Dextrose (Cardizem) 125 ml @ 0 mls/hr CONT PRN IV SEE I/O RECORD ; Start 01/29/17 at 19:15 Diphenhydramine HCl (Benadryl) 50 mg PRN Q8HRS PRN IVP ITCHING Last administered on 02/01/17 10:14; Start 01/29/17 at 19:15 Nitroglycerin (Nitrostat) 0.4 mg STK-MED ONCE SL ; Start 01/29/17 at 17:00; Stop 01/30/17 at 08:02; Status DC Info (Anti-Coagulation Monitoring By Pharmacy) 1 each PRN DAILY PRN MC SEE COMMENTS Last administered on 01/30/17 10:49; Start 01/30/17 at 10:45 Heparin Sodium (Porcine) 3000 unit 3,000 unit 1X ONCE IV Last administered on 01/30/17 17:36; Start 01/30/17 at 18:00; Stop 01/30/17 at 18:01; Status DC Heparin Sodium/ Dextrose 500 ml @ 24 mls/hr CONT PRN IV SEE I/O RECORD Last administered on 02/01/17 08:02; Start 01/30/17 at 18:00 Sodium Chloride (Iv Sodium Chloride 0.9% 1000ml Bag) 1,000 ml @ 50 mls/hr Q20H IV Last administered on 01/31/17 21:51; Start 01/31/17 at 02:45 Dextrose 25 gm 1X ONCE IV Last administered on 01/31/17 06:05; Start at 06:30; Stop 01/31/17 at 06:31; Status DC Insulin Human Regular (Novolin R Vial) 10 unit 1X ONCE IV Last administered on 01/31/17 06:09; Start 01/31/17 at 06:30; Stop 01/31/17 at 06:31; Status DC Dextrose 25 gm 25 gm 1X ONCE IV Last administered on 01/31/17 09:04; Start at 09:00; Stop 01/31/17 at 09:03; Status DC Sodium Chloride 1,000 ml @ 1,000 mls/hr Q1H PRN IV hypotension; Start 01/31/17 at 09:28; Stop 01/31/17 at 15:27; Status DC Albumin Human (Albuminar) 200 ml @ 200 mls/hr 1X PRN PRN IV Hypotension; Start 01/31/17 at 09:30; Stop 01/31/17 at 15:29; Status DC Acetaminophen (Tylenol) 500 mg 1X PRN PRN PO MILD PAIN / TEMP; Start 01/31/17 at 09:30; Stop 02/01/17 at 09:29; Status DC Diphenhydramine HCl (Benadryl) 25 mg 1X PRN PRN IV ITCHING Last administered on 01/31/17 18:05; Start 01/31/17 at 09:30; Stop 02/01/17 at 09:29; Status DC Diphenhydramine HCl (Benadryl) 25 mg 1X PRN PRN IV ITCHING; Start 01/31/17 at 09:30; Stop 02/01/17 at 09:29; Status DC Info (PHARMACY MONITORING -- do not chart) 1 each PRN DAILY PRN MC SEE COMMENTS ; Start 01/31/17 at 09:30; Status UNV Diphenhydramine HCl (Benadryl) 50 mg PRN Q6HRS PRN IVP ITCHING Last administered on 3/17/17at 17:09; Start 02/01/17 at 15:15 Fentanyl Citrate (Fentanyl 2ml Vial) 25 mcg PRN Q4HRS PRN IV PAIN; Start at 15:15 Active Scripts Active Clopidogrel (Clopidogrel Bisulfate) 75 Mg Tablet 1 Tab PO DAILY Isosorbide Mononitrate Er (Isosorbide Mononitrate) 30 Mg Tab.er.24h 30 Mg PO DAILY Flomax (Tamsulosin Hcl) 0.4 Mg Cap.er.24h 0.4 Mg PO QHS Reported Hydrocodone-Apap 5-325 (Hydrocodone Bit/Acetaminophen) 1 Each Tablet 1 Tab PO PRN Q6HRS PRN Furosemide 80 Mg Tablet 1 Tab PO BID Nephro-Chilo Tablet (Folic Acid/Vitamin B Comp W-C) 0.8 Mg Tablet 1 Tab PO DAILY Paroxetine Hcl 20 Mg Tablet 40 Mg PO DAILY Tums (Calcium Carbonate) 200 Mg Tab.chew 800 Mg PO TIDAC Omeprazole Magnesium 20 Mg Capsule.dr 20 Mg PO DAILY Clonidine Hcl 0.3 Mg Tablet 1 Tab PO DAILY Hydralazine Hcl 100 Mg Tablet 100 Mg PO TID LAST DOSE: 02/24/16 AFTERNOON NEXT DOSE: 02/24/16 BEDTIME Amlodipine Besylate 10 Mg Tablet 10 Mg PO BID LAST DOSE: 02/24/16 AM NEXT DOSE: 02/25/16 AM Xanax (Alprazolam) 0.5 Mg Tablet 0.5 Mg PO Q6HRS PRN LAST DOSE: 02/23/16 BEDTIME NEXT DOSE: 02/24/16 BEDTIME Losartan Potassium 100 Mg Tablet 100 Mg PO HS LAST DOSE: 02/23/16 BEDTIME NEXT DOSE: 02/24/16 BEDTIME Metoprolol Tartrate 100 Mg Tablet 100 Mg PO BID LAST DOSE: 02/24/16 AM NEXT DOSE: 02/24/16 BEDTIME Lillian Chewable (Aspirin) 81 Mg Tab.chew 324 Mg PO DAILY LAST DOSE: 02/24/16 AM NEXT DOSE: 02/25/16 AM Vitals/I & O Vital Sign - Last 24 Hours 01/31/17 01/31/17 01/31/17 01/31/17 18:09 20:00 20:00 21:52 Temp 98.2 98.2 Pulse 74 79 Resp 22 14 B/P 127/46 146/63 Pulse Ox 100 100 O2 Delivery Room Air Nasal Cannula Nasal Cannula O2 Flow Rate 4.0 4.0 01/31/17 01/31/17 01/31/17 02/01/17 21:53 21:53 21:54 00:00 Pulse 76 76 76 B/P 146/63 146/63 146/63 O2 Delivery Nasal Cannula O2 Flow Rate 4.0 02/01/17 02/01/17 02/01/17 02/01/17 00:00 04:00 04:06 08:00 Temp 98.8 98.1 98.8 98.1 Pulse 76 68 Resp 20 18 B/P 127/50 119/56 Pulse Ox 98 100 O2 Delivery Nasal Cannula Nasal Cannula Nasal Cannula Room Air O2 Flow Rate 4.0 4.0 4.0 02/01/17 02/01/17 02/01/17 02/01/17 08:00 08:04 10:00 12:00 Temp 98.2 98.2 98.2 98.2 Pulse 70 70 66 66 Resp 20 18 14 B/P 132/57 132/57 109/51 122/58 Pulse Ox 100 100 98 O2 Delivery Room Air Room Air Room Air 02/01/17 02/01/17 16:11 17:12 Resp 16 16 Pulse Ox 98 O2 Delivery Room Air Room Air Intake and Output 01/31/17 01/31/17 02/01/17 15:00 23:00 07:00 Intake Total 1126 ml 1147 ml Output Total 0 ml 0 ml 0 ml Balance 0 ml 1126 ml 1147 ml Problem List Problems Medical Problems: (1) Flank pain Status: Acute (2) Pancreatitis Status: Acute Assessment Recurrent pancreatitis- improving, tolerating PO S/P erin, will reassess Saturday OHD- S/p TN, CABG tentatively next week NGOZI SANCHEZ MD Feb 01, 2017 17:42
[2017-02-01] MEDS: TAMSULOSIN 0.4 MG CAP.ER.24H. PO SCH (21:06)
[2017-02-01] MEDS: LOSARTAN POTASSIUM 50 MG TABLET. PO SCH (21:09)
[2017-02-02 02:50] VITALS: BP 125/55
[2017-02-02 04:22] LABS: BASO % 1 % (0-3); EOS % 2 % (0-3); HEMATOCRIT 25.6 % (39.0-53.0); HEMOGLOBIN 8.5 g/dL (13.0-17.5); LYMPH # 0.7 x10^3/uL (1.0-4.8); LYMPH % 14 % (24-48); MEAN CORPUSCULAR HEMOGLOBIN 31 pg (25-35); MEAN CORPUSCULAR HGB CONC 33 g/dL (31-37); MEAN CORPUSCULAR VOLUME 93 fL (79-100); MONO % 14 % (0-9); NEUT % 69 % (31-73); PLATELET COUNT 155 x10^3/uL (140-400); RED BLOOD COUNT 2.74 x10^6/uL (4.30-5.70); RED CELL DISTRIBUTION WIDTH 13.7 % (11.5-14.5); WHITE BLOOD COUNT 4.8 x10^3/uL (4.0-11.0)
[2017-02-02 04:40] LABS: CALCIUM 7.3 mg/dL (8.5-10.1); CREATININE 9.8 mg/dL (0.7-1.3); GFR 5.5; POTASSIUM 3.9 mmol/L (3.5-5.1)
[2017-02-02 07:25] VITALS: BP 118/62
[2017-02-02] MEDS: PAROXETINE 20 MG TABLET. PO SCH (08:13)
[2017-02-02] MEDS: HYDRALAZINE 50 MG TABLET PO SCH ×3 (08:14→21:09)
[2017-02-02] MEDS: METOPROLOL TART IMMED RELEASE 50 MG TABLET PO SCH ×2 (08:15→21:09)
[2017-02-02] MEDS: FUROSEMIDE 80 MG TABLET PO SCH ×2 (08:16→14:10)
[2017-02-02] MEDS: DOCUSATE SODIUM 100 MG CAPSULE PO SCH ×2 (08:16→21:09)
[2017-02-02] MEDS: ISOSORBIDE MONONITRATE ER 30 MG TAB.ER.24H PO SCH (08:16)
[2017-02-02] MEDS: PANTOPRAZOLE 40 MG TABLET. PO SCH (08:16)
[2017-02-02] MEDS: AMLODIPINE BESYLATE 10 MG TABLET PO SCH ×2 (08:16→21:10)
[2017-02-02] MEDS: CLONIDINE HCL 0.3 MG TABLET PO SCH (08:17)
[2017-02-02] MEDS: FOLIC/VIT B COMP W-C (RENAL) TABLET. PO SCH (08:17)
[2017-02-02] MEDS: CALCIUM CARBONATE 500 MG TAB.CHEW PO SCH ×3 (08:21→16:48)
[2017-02-02] MEDS: ALPRAZOLAM 0.5 MG TABLET PO PRN ×2 (08:22→17:10)
[2017-02-02] MEDS: HEPARIN 25,000UTS/500ML PREMIX 500 ML IV PRN (08:23)
[2017-02-02] MEDS ORDERED: DIALYSIS PATIENT. MC PRN ×2 (09:30)
[2017-02-02] MEDS ORDERED: DIPHENHYDRAMINE 50 MG/ML VIAL IV PRN (09:30)
[2017-02-02] MEDS: DIPHENHYDRAMINE 50 MG/ML VIAL IVP PRN (09:41)
--- NOTE | 2017-02-02 11:00 | PDOC ---
PROGRESS NOTES Chief Complaint Chief Complaint Pancreatitis ACS ASSESSMENT AND PLAN: 1. Pancreatitis: recurrent panc w/o EtOH hx, and s/p CCY. resolved 2. STEMI: EKG changes (incl brief afib). cath on 01/[address] Kiran: multivessel dz. CABG planned for , 02/05 (hold plavix x5d). cont cardiac meds 3. ESRD: on HD, Dr Escobar following 4. Anemia: stable around 10. 2/2 ESRD. EPO, iron with HD as indicated 5. Prophylaxis: PPI 6. AMS : resolved Vitals Vitals Vital Signs Date Time Temp Pulse Resp B/P Pulse Ox O2 Delivery O2 Flow Rate FiO2 02/02/17 08:17 66 149/65 02/02/17 07:45 Room Air 02/02/17 07:25 98.0 20 97 98.0 Physical Exam General: Alert, Oriented X3, Cooperative, No acute distress Heart: Normal S1, Normal S2, Other (irreg) Abdomen: Normal bowel sounds, Soft, No tenderness Labs LABS Laboratory Tests Test 02/02/17 03:45 02/02/17 09:26 White Blood Count 4.8x10^3/uL (4.0-11.0) Red Blood Count 2.74x10^6/uL (4.30-5.70) Hemoglobin 8.5g/dL (13.0-17.5) Hematocrit 25.6% (39.0-53.0) Mean Corpuscular Volume 93fL (79-100) Mean Corpuscular Hemoglobin 31pg (25-35) Mean Corpuscular Hemoglobin Concent 33g/dL (31-37) Red Cell Distribution Width 13.7% (11.5-14.5) Platelet Count 155x10^3/uL (140-400) Neutrophils (%) (Auto) 69% (31-73) Lymphocytes (%) (Auto) 14% (24-48) Monocytes (%) (Auto) 14% (0-9) Eosinophils (%) (Auto) 2% (0-3) Basophils (%) (Auto) 1% (0-3) Neutrophils # (Auto) 3.3x10^3uL (1.8-7.7) Lymphocytes # (Auto) 0.7x10^3/uL (1.0-4.8) Monocytes # (Auto) 0.7x10^3/uL (0.0-1.1) Eosinophils # (Auto) 0.1x10^3/uL (0.0-0.7) Basophils # (Auto) 0.0x10^3/uL (0.0-0.2) Sodium Level 140mmol/L (136-145) Potassium Level 3.9mmol/L (3.5-5.1) Chloride Level 98mmol/L (98-107) Carbon Dioxide Level 28mmol/L (21-32) Anion Gap 14 (6-14) Blood Urea Nitrogen 46mg/dL (8-26) Creatinine 9.8mg/dL (0.7-1.3) Estimated GFR (Cockcroft-Gault) 5.5 Glucose Level 94mg/dL (70-99) Calcium Level 7.3mg/dL (8.5-10.1) Heparin Anti-Xa Act, Unfractionated 0.14IU/mL (0.30-0.70) Review of Systems Review of Systems no c/o Nutrition Consultation Dietary Evaluation: Recommendations by RD: Increase Calorie Intake Comments: Boost breeze TID - 250kcal and 9g protein per serving Expected Outcomes/Goals: diet advancement Malnutrition Findings: Weight Status: Overweight WENDI GUTIERREZ MD Feb 02, 2017 11:00
--- NOTE | 2017-02-02 11:07 | PDOC ---
Provider Note Provider Note Pt seen\examined No c/o chest pain tolerating HD well OR plans for CABG are for Saturday cxr and CT of chest show no sig masses that will require biopsy ZUHAIR DÍAZ MD Feb 02, 2017 11:07
--- NOTE | 2017-02-02 11:17 | PDOC ---
Renal-Progress Notes Subjective Notes Notes NONE History of Present Illness Hx of present illness STABLE Vitals Vitals Vital Signs Date Time Temp Pulse Resp B/P Pulse Ox O2 Delivery O2 Flow Rate FiO2 02/02/17 08:17 66 149/65 02/02/17 07:45 Room Air 02/02/17 07:25 98.0 20 97 98.0 Weight Weight [ ] I.O. Intake and Output Intake and Output 02/02/17 07:00 Intake Total 1285 ml Output Total 0 ml Balance 1285 ml Intake Oral 720 ml IV Total 565 ml Output Urine Total 0 ml Labs Labs Laboratory Tests Test 02/02/17 03:45 02/02/17 09:26 White Blood Count 4.8x10^3/uL (4.0-11.0) Red Blood Count 2.74x10^6/uL (4.30-5.70) Hemoglobin 8.5g/dL (13.0-17.5) Hematocrit 25.6% (39.0-53.0) Mean Corpuscular Volume 93fL (79-100) Mean Corpuscular Hemoglobin 31pg (25-35) Mean Corpuscular Hemoglobin Concent 33g/dL (31-37) Red Cell Distribution Width 13.7% (11.5-14.5) Platelet Count 155x10^3/uL (140-400) Neutrophils (%) (Auto) 69% (31-73) Lymphocytes (%) (Auto) 14% (24-48) Monocytes (%) (Auto) 14% (0-9) Eosinophils (%) (Auto) 2% (0-3) Basophils (%) (Auto) 1% (0-3) Neutrophils # (Auto) 3.3x10^3uL (1.8-7.7) Lymphocytes # (Auto) 0.7x10^3/uL (1.0-4.8) Monocytes # (Auto) 0.7x10^3/uL (0.0-1.1) Eosinophils # (Auto) 0.1x10^3/uL (0.0-0.7) Basophils # (Auto) 0.0x10^3/uL (0.0-0.2) Sodium Level 140mmol/L (136-145) Potassium Level 3.9mmol/L (3.5-5.1) Chloride Level 98mmol/L (98-107) Carbon Dioxide Level 28mmol/L (21-32) Anion Gap 14 (6-14) Blood Urea Nitrogen 46mg/dL (8-26) Creatinine 9.8mg/dL (0.7-1.3) Estimated GFR (Cockcroft-Gault) 5.5 Glucose Level 94mg/dL (70-99) Calcium Level 7.3mg/dL (8.5-10.1) Heparin Anti-Xa Act, Unfractionated 0.14IU/mL (0.30-0.70) Review of Systems Constitutional: yes: alert, oriented Ears/Nose/Throat: Yes: no symptom reported Eyes: Yes: no symptom reported Pulmonary: Yes no symptom reported Cardiovascular: Yes no symptom reported Gastrointestional: Yes: no symptom reported Musculoskeletal: Yes: no symptom reported Psychiatric/Neurological: Yes: no symptom reported Physical Exam General Appearance: no apparent distress Respiratory: bilateral CTA Heart: S1S2 Abdomen: soft Extremities: pulses present Neurology: alert Assessment Assessment IMP ESRD ANEMIA AMI CAD PLAN HD TODAY UF TO DW CABG PENDING FOR SATURDAY D/W CTS CONT JAYDE MILLER MD Feb 02, 2017 11:17
--- NOTE | 2017-02-02 12:47 | PDOC ---
PROGRESS NOTES Subjective Subjective No new cardiac complaints Objective Objective Vital Signs Date Time Temp Pulse Resp B/P Pulse Ox O2 Delivery O2 Flow Rate FiO2 02/02/17 08:17 66 149/65 02/02/17 07:45 Room Air 02/02/17 07:25 98.0 20 97 98.0 02/01/17 04:06 4.0 Intake and Output 02/02/17 07:00 Intake Total 1285 ml Output Total 0 ml Balance 1285 ml Intake Oral 720 ml IV Total 565 ml Output Urine Total 0 ml Physical Exam Physical Exam No changes in cardiac exam Assessment Assessment Severe CAD CABGS on saturday Problems Medical Problems: (1) Flank pain Status: Acute (2) Pancreatitis Status: Acute Comment Review of Relevant I have reviewed the following items dionte (where applicable) has been applied. Labs Laboratory Tests Test 02/01/17 05:25 02/02/17 03:45 02/02/17 09:26 White Blood Count 5.7x10^3/uL (4.0-11.0) 4.8x10^3/uL (4.0-11.0) Red Blood Count 2.80x10^6/uL (4.30-5.70) 2.74x10^6/uL (4.30-5.70) Hemoglobin 8.6g/dL (13.0-17.5) 8.5g/dL (13.0-17.5) Hematocrit 26.0% (39.0-53.0) 25.6% (39.0-53.0) Mean Corpuscular Volume 93fL (79-100) 93fL (79-100) Mean Corpuscular Hemoglobin 31pg (25-35) 31pg (25-35) Mean Corpuscular Hemoglobin Concent 33g/dL (31-37) 33g/dL (31-37) Red Cell Distribution Width 13.7% (11.5-14.5) 13.7% (11.5-14.5) Platelet Count 153x10^3/uL (140-400) 155x10^3/uL (140-400) Neutrophils (%) (Auto) 71% (31-73) 69% (31-73) Lymphocytes (%) (Auto) 14% (24-48) 14% (24-48) Monocytes (%) (Auto) 14% (0-9) 14% (0-9) Eosinophils (%) (Auto) 1% (0-3) 2% (0-3) Basophils (%) (Auto) 1% (0-3) 1% (0-3) Neutrophils # (Auto) 4.0x10^3uL (1.8-7.7) 3.3x10^3uL (1.8-7.7) Lymphocytes # (Auto) 0.8x10^3/uL (1.0-4.8) 0.7x10^3/uL (1.0-4.8) Monocytes # (Auto) 0.8x10^3/uL (0.0-1.1) 0.7x10^3/uL (0.0-1.1) Eosinophils # (Auto) 0.1x10^3/uL (0.0-0.7) 0.1x10^3/uL (0.0-0.7) Basophils # (Auto) 0.0x10^3/uL (0.0-0.2) 0.0x10^3/uL (0.0-0.2) Heparin Anti-Xa Act, Unfractionated 0.33IU/mL (0.30-0.70) 0.14IU/mL (0.30-0.70) Sodium Level 138mmol/L (136-145) 140mmol/L (136-145) Potassium Level 4.0mmol/L (3.5-5.1) 3.9mmol/L (3.5-5.1) Chloride Level 96mmol/L (98-107) 98mmol/L (98-107) Carbon Dioxide Level 32mmol/L (21-32) 28mmol/L (21-32) Anion Gap 10 (6-14) 14 (6-14) Blood Urea Nitrogen 36mg/dL (8-26) 46mg/dL (8-26) Creatinine 7.5mg/dL (0.7-1.3) 9.8mg/dL (0.7-1.3) Estimated GFR (Cockcroft-Gault) 7.5 5.5 Glucose Level 122mg/dL (70-99) 94mg/dL (70-99) Calcium Level 7.8mg/dL (8.5-10.1) 7.3mg/dL (8.5-10.1) Laboratory Tests Test 02/02/17 03:45 02/02/17 09:26 White Blood Count 4.8x10^3/uL (4.0-11.0) Red Blood Count 2.74x10^6/uL (4.30-5.70) Hemoglobin 8.5g/dL (13.0-17.5) Hematocrit 25.6% (39.0-53.0) Mean Corpuscular Volume 93fL (79-100) Mean Corpuscular Hemoglobin 31pg (25-35) Mean Corpuscular Hemoglobin Concent 33g/dL (31-37) Red Cell Distribution Width 13.7% (11.5-14.5) Platelet Count 155x10^3/uL (140-400) Neutrophils (%) (Auto) 69% (31-73) Lymphocytes (%) (Auto) 14% (24-48) Monocytes (%) (Auto) 14% (0-9) Eosinophils (%) (Auto) 2% (0-3) Basophils (%) (Auto) 1% (0-3) Neutrophils # (Auto) 3.3x10^3uL (1.8-7.7) Lymphocytes # (Auto) 0.7x10^3/uL (1.0-4.8) Monocytes # (Auto) 0.7x10^3/uL (0.0-1.1) Eosinophils # (Auto) 0.1x10^3/uL (0.0-0.7) Basophils # (Auto) 0.0x10^3/uL (0.0-0.2) Sodium Level 140mmol/L (136-145) Potassium Level 3.9mmol/L (3.5-5.1) Chloride Level 98mmol/L (98-107) Carbon Dioxide Level 28mmol/L (21-32) Anion Gap 14 (6-14) Blood Urea Nitrogen 46mg/dL (8-26) Creatinine 9.8mg/dL (0.7-1.3) Estimated GFR (Cockcroft-Gault) 5.5 Glucose Level 94mg/dL (70-99) Calcium Level 7.3mg/dL (8.5-10.1) Heparin Anti-Xa Act, Unfractionated 0.14IU/mL (0.30-0.70) Medications Current Medications Hydromorphone HCl (Dilaudid) 1 mg 1X ONCE IV Last administered on 01/28/17 23 :57; Start 01/28/17 at 23:30; Stop 01/28/17 at 23:31; Status DC Ondansetron HCl 4 mg 4 mg 1X ONCE IV Last administered on 01/28/17 23:57; Start 01/28/17 at 23:30; Stop 01/28/17 at 23:31; Status DC Sodium Chloride (Iv Sodium Chloride 0.9% 500ml Bag) 500 ml @ 0 mls/hr 1X ONCE IV Last administered on 01/28/17 23:39; Start 01/28/17 at 23:30; Stop at 23:31; Status DC Diphenhydramine HCl (Benadryl) 50 mg 1X ONCE IVP Last administered on 00:29; Start 01/29/17 at 00:30; Stop 01/29/17 at 00:31; Status DC Diphenhydramine HCl (Benadryl) 50 mg STK-MED ONCE .ROUTE ; Start 01/29/17 at 00: 26; Stop 01/29/17 at 00:27; Status DC Morphine Sulfate 4 mg 1X ONCE IV Last administered on 01/29/17 03:55; Start 01/29/17 at 02:15; Stop 01/29/17 at 02:16; Status DC Ondansetron HCl (Zofran) 4 mg PRN Q8HRS PRN IV NAUSEA/VOMITING; Start 01/29/17 at 03:00; Stop 01/30/17 at 02:59; Status DC Morphine Sulfate 4 mg 4 mg PRN Q2HR PRN IV PAIN Last administered on 01/29/17 09:59; Start 01/29/17 at 03:00; Stop 01/29/17 at 11:47; Status DC Sodium Chloride (Iv Sodium Chloride 0.9% 1000ml Bag) 1,000 ml @ 50 mls/hr Q20H IV Last administered on 01/30/17 07:28; Start 01/29/17 at 02:12; Stop at 02:11; Status DC Alprazolam (Xanax) 0.5 mg PRN Q6HRS PRN PO ANXIETY / AGITATION Last administered on 02/02/17 08:22; Start 01/29/17 at 11:30 Amlodipine Besylate (Norvasc) 10 mg BID PO Last administered on 02/02/17 08:16 ; Start 01/29/17 at 12:00 Aspirin (Children'S Aspirin) 324 mg DAILY PO ; Start 01/29/17 at 12:00; Stop at 18:32; Status DC Calcium Carbonate/ Glycine (Tums) 800 mg TIDAC PO Last administered on 08:21; Start 01/29/17 at 11:30 Clonidine HCl (Catapres) 0.3 mg DAILY PO Last administered on 02/02/17 08:17; Start 01/30/17 at 09:00 Clopidogrel Bisulfate (Plavix) 75 mg DAILY PO ; Start 01/29/17 at 12:00; Stop at 09:45; Status DC Vitamin B Complex/ Vitamin C (Nephro-Chilo) 1 tab DAILY PO Last administered on 02/02/17 08:17; Start 01/29/17 at 12:00 Furosemide (Lasix) 80 mg BID92 PO Last administered on 02/02/17 08:16; Start 01/29/17 at 14:00 Acetaminophen/ Hydrocodone Bitart (Lortab 5/325) 1 tab PRN Q6HRS PRN PO PAIN; Start 01/29/17 at 11:30; Stop 01/29/17 at 18:58; Status DC Isosorbide Mononitrate (Imdur) 30 mg DAILY PO Last administered on 02/02/17 08 :16; Start 01/29/17 at 12:00 Paroxetine HCl (Paxil) 40 mg DAILY PO Last administered on 02/02/17 08:13; Start 01/29/17 at 12:00 Tamsulosin HCl (Flomax) 0.4 mg QHS PO Last administered on 02/01/17 21:06; Start 01/29/17 at 21:00 Hydralazine HCl (Apresoline) 100 mg TID PO Last administered on 02/02/17 08:14 ; Start 01/29/17 at 14:00 Losartan Potassium (Cozaar) 100 mg QHS PO Last administered on 02/01/17 21:09 ; Start 01/29/17 at 21:00 Metoprolol Tartrate (Lopressor) 100 mg BID PO Last administered on 02/02/17 08 :15; Start 01/29/17 at 12:00 Pantoprazole Sodium (Protonix) 40 mg DAILYAC PO Last administered on 02/02/17 08:16; Start 01/29/17 at 12:00 Darbepoetin Percy (Aranesp) 60 mcg WEEKLYHS SQ ; Start 02/02/17 at 21:00 Morphine Sulfate 6 mg 6 mg PRN Q2HR PRN IV PAIN Last administered on 01/30/17 19:22; Start 01/29/17 at 11:45; Stop 02/01/17 at 15:20; Status DC Sodium Chloride (Iv Sodium Chloride 0.9% 1000ml Bag) 1,000 ml @ 1,000 mls/hr Q1H PRN IV hypotension; Start 01/29/17 at 12:55; Stop 01/29/17 at 18:54; Status DC Diphenhydramine HCl (Benadryl) 25 mg 1X PRN PRN IV ITCHING Last administered on 01/29/17 19:12; Start 01/29/17 at 13:00; Stop 01/30/17 at 12:59; Status DC Diphenhydramine HCl (Benadryl) 25 mg 1X PRN PRN IV ITCHING Last administered on 01/29/17 13:16; Start 01/29/17 at 13:00; Stop 01/30/17 at 12:59; Status DC Info (PHARMACY MONITORING -- do not chart) 1 each PRN DAILY PRN MC SEE COMMENTS ; Start 01/29/17 at 13:00; Status UNV Info (PHARMACY MONITORING -- do not chart) 1 each PRN DAILY PRN MC SEE COMMENTS ; Start 01/29/17 at 13:00 Nitroglycerin (Nitrostat) 0.4 mg STK-MED ONCE SL ; Start 01/29/17 at 16:55; Stop 01/29/17 at 16:56; Status DC Heparin Sodium (Porcine) 4000 unit 4,000 unit 1X ONCE IV Last administered on 01/29/17 17:37; Start 01/29/17 at 17:30; Stop 01/29/17 at 17:31; Status DC Heparin Sodium/ Sodium Chloride 500 ml @ As Directed STK-MED ONCE .ROUTE ; Start 01/29/17 at 17:54; Stop 01/29/17 at 17:55; Status DC Lidocaine HCl 20 ml STK-MED ONCE .ROUTE ; Start 01/29/17 at 17:54; Stop at 17:55; Status DC Iodixanol (Visipaque 320) 100 ml STK-MED ONCE .ROUTE ; Start 01/29/17 at 17:54; Stop 01/29/17 at 17:55; Status DC Metoprolol Tartrate (Lopressor) 5 mg STK-MED ONCE .ROUTE ; Start 01/29/17 at 18: 05; Stop 01/29/17 at 18:06; Status DC Fentanyl Citrate (Fentanyl 2ml Vial) 100 mcg STK-MED ONCE .ROUTE ; Start at 18:05; Stop 01/29/17 at 18:06; Status DC Midazolam HCl 2 mg 2 mg STK-MED ONCE .ROUTE ; Start 01/29/17 at 18:05; Stop at 18:06; Status DC Heparin Sodium/ Dextrose 500 ml @ As Directed STK-MED ONCE IV ; Start 01/29/17 at 18:18; Stop 01/29/17 at 18:19; Status DC Heparin Sodium (Porcine) 10,000 unit STK-MED ONCE .ROUTE ; Start 01/29/17 at 18: 18; Stop 01/29/17 at 18:19; Status DC Metoprolol Tartrate (Lopressor) 5 mg STK-MED ONCE .ROUTE ; Start 01/29/17 at 18: 25; Stop 01/29/17 at 18:26; Status DC Heparin Sodium/ Sodium Chloride 1,000 unit 1X ONCE IART Last administered on 18:51; Start 01/29/17 at 18:45; Stop 01/29/17 at 18:53; Status DC Heparin Sodium/ Sodium Chloride 1,000 unit 1X ONCE IART Last administered on 18:51; Start 01/29/17 at 18:45; Stop 01/29/17 at 18:53; Status DC Midazolam HCl (Versed) 1 mg 1X ONCE IV Last administered on 01/29/17 18:53; Start 01/29/17 at 18:45; Stop 01/29/17 at 18:53; Status DC Fentanyl Citrate (Fentanyl 2ml Vial) 50 mcg 1X ONCE IV Last administered on 18:53; Start 01/29/17 at 18:45; Stop 01/29/17 at 18:53; Status DC Iodixanol (Visipaque 320) 105 ml 1X ONCE IART Last administered on 01/29/17 18:52; Start 01/29/17 at 18:45; Stop 01/29/17 at 18:53; Status DC Heparin Sodium (Porcine) 4000 unit 4,000 unit 1X ONCE IV Last administered on 01/29/17 18:53; Start 01/29/17 at 18:45; Stop 01/29/17 at 18:53; Status DC Heparin Sodium/ Dextrose 500 ml @ 20 mls/hr CONT PRN IV SEE I/O RECORD; Start 01/29/17 at 18:24; Stop 01/30/17 at 14:01; Status DC Metoprolol Tartrate (Lopressor) 10 mg 1X ONCE IVP Last administered on 18:52; Start 01/29/17 at 18:45; Stop 01/29/17 at 18:53; Status DC Lidocaine HCl 10 ml 1X ONCE IJ Last administered on 01/29/17 18:52; Start at 18:45; Stop 01/29/17 at 18:53; Status DC Sodium Chloride (Normal Saline Flush) 3 ml QSHIFT PRN IV AFTER MEDS AND BLOOD DRAWS; Start 01/29/17 at 18:45 Docusate Sodium (Colace) 100 mg BID PO Last administered on 02/02/17 08:16; Start 01/29/17 at 21:00 Fentanyl Citrate (Fentanyl 2ml Vial) 50 mcg PRN Q1HR PRN IV Moderate or severe pain Last administered on 01/29/17 23:25; Start 01/29/17 at 18:45 Cyclobenzaprine HCl (Flexeril) 10 mg PRN TID PRN PO MUSCLE SPASMS Last administered on 01/30/17 05:22; Start 01/29/17 at 18:45 Ondansetron HCl (Zofran) 4 mg PRN Q6HRS PRN IV NAUSEA/VOMITING; Start 01/29/17 at 18:45 Nitroglycerin (Nitrostat) 0.4 mg PRN Q5MIN PRN SL CHEST PAIN; Start 01/29/17 at 18:45 Acetaminophen/ Hydrocodone Bitart (Lortab 5/325) 1 tab PRN Q4HRS PRN PO MILD PAIN Last administered on 02/01/17 21:07; Start 01/29/17 at 18:45 Diltiazem HCl 5 mg 5 mg 1X ONCE IVP Last administered on 01/29/17 19:23; Start 01/29/17 at 19:15; Stop 01/29/17 at 19:18; Status DC Diltiazem HCl/ Dextrose (Cardizem) 125 ml @ 0 mls/hr CONT PRN IV SEE I/O RECORD ; Start 01/29/17 at 19:15 Diphenhydramine HCl (Benadryl) 50 mg PRN Q8HRS PRN IVP ITCHING Last administered on 02/02/17 09:41; Start 01/29/17 at 19:15 Nitroglycerin (Nitrostat) 0.4 mg STK-MED ONCE SL ; Start 01/29/17 at 17:00; Stop 01/30/17 at 08:02; Status DC Info (Anti-Coagulation Monitoring By Pharmacy) 1 each PRN DAILY PRN MC SEE COMMENTS Last administered on 01/30/17 10:49; Start 01/30/17 at 10:45 Heparin Sodium (Porcine) 3000 unit 3,000 unit 1X ONCE IV Last administered on 01/30/17 17:36; Start 01/30/17 at 18:00; Stop 01/30/17 at 18:01; Status DC Heparin Sodium/ Dextrose 500 ml @ 24 mls/hr CONT PRN IV SEE I/O RECORD Last administered on 02/02/17 08:23; Start 01/30/17 at 18:00 Sodium Chloride (Iv Sodium Chloride 0.9% 1000ml Bag) 1,000 ml @ 50 mls/hr Q20H IV Last administered on 01/31/17 23:30; Start 01/31/17 at 02:45 Dextrose 25 gm 1X ONCE IV Last administered on 01/31/17 06:05; Start at 06:30; Stop 01/31/17 at 06:31; Status DC Insulin Human Regular (Novolin R Vial) 10 unit 1X ONCE IV Last administered on 01/31/17 06:09; Start 01/31/17 at 06:30; Stop 01/31/17 at 06:31; Status DC Dextrose 25 gm 25 gm 1X ONCE IV Last administered on 01/31/17 09:04; Start at 09:00; Stop 01/31/17 at 09:03; Status DC Sodium Chloride 1,000 ml @ 1,000 mls/hr Q1H PRN IV hypotension; Start 01/31/17 at 09:28; Stop 01/31/17 at 15:27; Status DC Albumin Human (Albuminar) 200 ml @ 200 mls/hr 1X PRN PRN IV Hypotension; Start 01/31/17 at 09:30; Stop 01/31/17 at 15:29; Status DC Acetaminophen (Tylenol) 500 mg 1X PRN PRN PO MILD PAIN / TEMP; Start 01/31/17 at 09:30; Stop 02/01/17 at 09:29; Status DC Diphenhydramine HCl (Benadryl) 25 mg 1X PRN PRN IV ITCHING Last administered on 01/31/17 18:05; Start 01/31/17 at 09:30; Stop 02/01/17 at 09:29; Status DC Diphenhydramine HCl (Benadryl) 25 mg 1X PRN PRN IV ITCHING; Start 01/31/17 at 09:30; Stop 02/01/17 at 09:29; Status DC Info (PHARMACY MONITORING -- do not chart) 1 each PRN DAILY PRN MC SEE COMMENTS ; Start 01/31/17 at 09:30; Status UNV Diphenhydramine HCl (Benadryl) 50 mg PRN Q6HRS PRN IVP ITCHING Last administered on 02/01/17 17:09; Start 02/01/17 at 15:15 Fentanyl Citrate (Fentanyl 2ml Vial) 25 mcg PRN Q4HRS PRN IV PAIN; Start at 15:15 Diphenhydramine HCl (Benadryl) 25 mg 1X PRN PRN IV ITCHING; Start 02/02/17 at 09:30; Stop 02/03/17 at 09:29 Info (PHARMACY MONITORING -- do not chart) 1 each PRN DAILY PRN MC SEE COMMENTS ; Start 02/02/17 at 09:30 Info (PHARMACY MONITORING -- do not chart) 1 each PRN DAILY PRN MC SEE COMMENTS ; Start 02/02/17 at 09:30 Active Scripts Active Clopidogrel (Clopidogrel Bisulfate) 75 Mg Tablet 1 Tab PO DAILY Isosorbide Mononitrate Er (Isosorbide Mononitrate) 30 Mg Tab.er.24h 30 Mg PO DAILY Flomax (Tamsulosin Hcl) 0.4 Mg Cap.er.24h 0.4 Mg PO QHS Reported Hydrocodone-Apap 5-325 (Hydrocodone Bit/Acetaminophen) 1 Each Tablet 1 Tab PO PRN Q6HRS PRN Furosemide 80 Mg Tablet 1 Tab PO BID Nephro-Chilo Tablet (Folic Acid/Vitamin B Comp W-C) 0.8 Mg Tablet 1 Tab PO DAILY Paroxetine Hcl 20 Mg Tablet 40 Mg PO DAILY Tums (Calcium Carbonate) 200 Mg Tab.chew 800 Mg PO TIDAC Omeprazole Magnesium 20 Mg Capsule.dr 20 Mg PO DAILY Clonidine Hcl 0.3 Mg Tablet 1 Tab PO DAILY Hydralazine Hcl 100 Mg Tablet 100 Mg PO TID LAST DOSE: 02/24/16 AFTERNOON NEXT DOSE: 02/24/16 BEDTIME Amlodipine Besylate 10 Mg Tablet 10 Mg PO BID LAST DOSE: 02/24/16 AM NEXT DOSE: 02/25/16 AM Xanax (Alprazolam) 0.5 Mg Tablet 0.5 Mg PO Q6HRS PRN LAST DOSE: 02/23/16 BEDTIME NEXT DOSE: 02/24/16 BEDTIME Losartan Potassium 100 Mg Tablet 100 Mg PO HS LAST DOSE: 02/23/16 BEDTIME NEXT DOSE: 02/24/16 BEDTIME Metoprolol Tartrate 100 Mg Tablet 100 Mg PO BID LAST DOSE: 02/24/16 AM NEXT DOSE: 02/24/16 BEDTIME Lillian Chewable (Aspirin) 81 Mg Tab.chew 324 Mg PO DAILY LAST DOSE: 02/24/16 AM NEXT DOSE: 02/25/16 AM Vitals/I & O Vital Sign - Last 24 Hours 02/01/17 02/01/17 02/01/1702/01/17 16:11 19:30 20:20 21:07 Temp 97.5 97.5 Pulse 67 Resp 16 18 18 B/P 141/63 Pulse Ox 98 96 96 O2 Delivery Room Air Room Air Room Air Room Air 02/01/17 02/01/17 02/01/17 02/01/17 21:08 21:09 21:09 21:10 Pulse 63 63 63 63 B/P 141/63 141/63 141/63 141/63 02/01/17 02/01/17 02/02/17 02/02/17 22:07 22:50 02:50 07:25 Temp 97.6 97.8 98.0 97.6 97.8 98.0 Pulse 68 62 66 Resp 18 20 20 20 B/P 147/71 125/55 118/62 Pulse Ox 98 98 96 97 O2 Delivery Room Air Room Air Room Air Room Air 02/02/17 02/02/17 02/02/17 02/02/17 07:45 08:14 08:15 08:16 Pulse 66 66 66 B/P 118/62 149/65 149/65 O2 Delivery Room Air 02/02/17 02/02/17 08:16 08:17 Pulse 66 66 B/P 149/65 149/65 Intake and Output 02/01/17 02/01/17 02/02/17 15:00 23:00 07:00 Intake Total 1285 ml Output Total 0 ml Balance 0 ml 1285 ml Nutrition Consultation Dietary Evaluation: Recommendations by RD: Increase Calorie Intake Comments: Boost breeze TID - 250kcal and 9g protein per serving Expected Outcomes/Goals: diet advancement Malnutrition Findings: Weight Status: Overweight ESTEFANÍA MANZO MD Feb 02, 2017 12:47
[2017-02-02 14:10] VITALS: BP 116/52
[2017-02-02] MEDS: IV NORMAL SALINE 1000ML BAG 1,000 ML IV SCH (14:45)
[2017-02-02 19:00] VITALS: BP 129/57
[2017-02-02] MEDS ORDERED: DARBEPOETIN ALFA 60 MCG/0.3 ML DISP.SYRIN. SQ SCH (21:00)
[2017-02-02] MEDS: LOSARTAN POTASSIUM 50 MG TABLET. PO SCH (21:08)
[2017-02-02] MEDS: TAMSULOSIN 0.4 MG CAP.ER.24H. PO SCH (21:10)
[2017-02-02] MEDS: HYDROCODONE/APAP 5/325MG TABLET. PO PRN (21:11)
[2017-02-02 23:27] VITALS: BP 115/52
[2017-02-03 03:00] VITALS: BP 121/63
[2017-02-03] MEDS: HEPARIN 25,000UTS/500ML PREMIX 500 ML IV PRN (05:47)
[2017-02-03 06:42] LABS: BASO % 1 % (0-3); EOS % 3 % (0-3); HEMOGLOBIN 9.1 g/dL (13.0-17.5); LYMPH # 0.6 x10^3/uL (1.0-4.8); LYMPH % 12 % (24-48); MEAN CORPUSCULAR HEMOGLOBIN 31 pg (25-35); MEAN CORPUSCULAR HGB CONC 34 g/dL (31-37); MEAN CORPUSCULAR VOLUME 92 fL (79-100); MONO % 13 % (0-9); NEUT % 71 % (31-73); PLATELET COUNT 171 x10^3/uL (140-400); RED BLOOD COUNT 2.93 x10^6/uL (4.30-5.70); RED CELL DISTRIBUTION WIDTH 13.9 % (11.5-14.5); WHITE BLOOD COUNT 5.3 x10^3/uL (4.0-11.0)
[2017-02-03 06:47] LABS: CALCIUM 7.7 mg/dL (8.5-10.1); CREATININE 6.8 mg/dL (0.7-1.3); GFR 8.3; POTASSIUM 4.3 mmol/L (3.5-5.1)
[2017-02-03 07:00] VITALS: BP 138/64
[2017-02-03] MEDS: BENZOCAINE/MENTHOL LOZENGE. PO PRN ×2 (07:40→20:49)
[2017-02-03] MEDS: DOCUSATE SODIUM 100 MG CAPSULE PO SCH ×2 (07:40→20:49)
[2017-02-03] MEDS: CALCIUM CARBONATE 500 MG TAB.CHEW PO SCH ×3 (07:40→17:06)
[2017-02-03] MEDS: FOLIC/VIT B COMP W-C (RENAL) TABLET. PO SCH (07:40)
[2017-02-03] MEDS: FUROSEMIDE 80 MG TABLET PO SCH ×2 (07:40→14:14)
[2017-02-03] MEDS: ISOSORBIDE MONONITRATE ER 30 MG TAB.ER.24H PO SCH (07:41)
[2017-02-03] MEDS: CLONIDINE HCL 0.3 MG TABLET PO SCH (07:41)
[2017-02-03] MEDS: METOPROLOL TART IMMED RELEASE 50 MG TABLET PO SCH ×2 (07:42→20:51)
[2017-02-03] MEDS: PANTOPRAZOLE 40 MG TABLET. PO SCH (07:42)
[2017-02-03] MEDS: PAROXETINE 20 MG TABLET. PO SCH (07:44)
[2017-02-03] MEDS: HYDRALAZINE 50 MG TABLET PO SCH ×4 (07:45→20:52)
[2017-02-03] MEDS: AMLODIPINE BESYLATE 10 MG TABLET PO SCH ×2 (07:45→20:50)
[2017-02-03] MEDS: ALPRAZOLAM 0.5 MG TABLET PO PRN ×2 (07:45→20:49)
--- NOTE | 2017-02-03 10:08 | PDOC ---
PROGRESS NOTES Chief Complaint Chief Complaint Pancreatitis ACS ASSESSMENT AND PLAN: 1. Pancreatitis: recurrent panc w/o EtOH hx, and s/p CCY. resolved 2. STEMI: EKG changes (incl brief afib). cath on 01/[address] Kiran: multivessel dz. CABG planned for , 02/05 (hold plavix x5d). cont cardiac meds 3. ESRD: on HD, Dr Escobar following 4. Anemia: stable around 10. 2/2 ESRD. EPO, iron with HD as indicated 5. Anxiety: Xanax PRN, .25-.5 PRN 6. AMS : resolved (benzo induced) 7. Sore throat: prob viral, but r/o Strep. cepacol 8. Prophylaxis: PPI Vitals Vitals Vital Signs Date Time Temp Pulse Resp B/P Pulse Ox O2 Delivery O2 Flow Rate FiO2 02/03/17 08:00 Room Air 02/03/17 07:45 66 138/64 02/03/17 07:00 98.0 16 99 98.0 Physical Exam General: Alert, Oriented X3, Cooperative, No acute distress Heart: Normal S1, Normal S2, Other (irreg) Lungs: Clear Abdomen: Normal bowel sounds, Soft, No tenderness Skin: No rashes Labs LABS Laboratory Tests Test 02/03/17 04:30 White Blood Count 5.3x10^3/uL (4.0-11.0) Red Blood Count 2.93x10^6/uL (4.30-5.70) Hemoglobin 9.1g/dL (13.0-17.5) Hematocrit 27.0% (39.0-53.0) Mean Corpuscular Volume 92fL (79-100) Mean Corpuscular Hemoglobin 31pg (25-35) Mean Corpuscular Hemoglobin Concent 34g/dL (31-37) Red Cell Distribution Width 13.9% (11.5-14.5) Platelet Count 171x10^3/uL (140-400) Neutrophils (%) (Auto) 71% (31-73) Lymphocytes (%) (Auto) 12% (24-48) Monocytes (%) (Auto) 13% (0-9) Eosinophils (%) (Auto) 3% (0-3) Basophils (%) (Auto) 1% (0-3) Neutrophils # (Auto) 3.8x10^3uL (1.8-7.7) Lymphocytes # (Auto) 0.6x10^3/uL (1.0-4.8) Monocytes # (Auto) 0.7x10^3/uL (0.0-1.1) Eosinophils # (Auto) 0.1x10^3/uL (0.0-0.7) Basophils # (Auto) 0.0x10^3/uL (0.0-0.2) Heparin Anti-Xa Act, Unfractionated 0.23IU/mL (0.30-0.70) Sodium Level 143mmol/L (136-145) Potassium Level 4.3mmol/L (3.5-5.1) Chloride Level 102mmol/L (98-107) Carbon Dioxide Level 30mmol/L (21-32) Anion Gap 11 (6-14) Blood Urea Nitrogen 27mg/dL (8-26) Creatinine 6.8mg/dL (0.7-1.3) Estimated GFR (Cockcroft-Gault) 8.3 Glucose Level 85mg/dL (70-99) Calcium Level 7.7mg/dL (8.5-10.1) Review of Systems Review of Systems very anxious. sore throat Nutrition Consultation Dietary Evaluation: Recommendations by RD: Increase Calorie Intake Comments: Boost breeze TID - 250kcal and 9g protein per serving Expected Outcomes/Goals: diet advancement Malnutrition Findings: Weight Status: Overweight WENDI GUTIERREZ MD Feb 03, 2017 10:08
[2017-02-03] MEDS: IV NORMAL SALINE 1000ML BAG 1,000 ML IV SCH (10:45)
[2017-02-03 10:48] VITALS: BP 129/62
--- NOTE | 2017-02-03 10:50 | PDOC ---
Renal-Progress Notes Subjective Notes Notes NERVOUS History of Present Illness Hx of present illness STABLE Vitals Vitals Vital Signs Date Time Temp Pulse Resp B/P Pulse Ox O2 Delivery O2 Flow Rate FiO2 02/03/17 08:00 Room Air 02/03/17 07:45 66 138/64 02/03/17 07:00 98.0 16 99 98.0 Weight Weight [ ] I.O. Intake and Output Intake and Output 02/03/17 07:00 Intake Total 910 ml Balance 910 ml Intake Oral 100 ml IV Total 810 ml # Voids 4 Labs Labs Laboratory Tests Test 02/03/17 04:30 White Blood Count 5.3x10^3/uL (4.0-11.0) Red Blood Count 2.93x10^6/uL (4.30-5.70) Hemoglobin 9.1g/dL (13.0-17.5) Hematocrit 27.0% (39.0-53.0) Mean Corpuscular Volume 92fL (79-100) Mean Corpuscular Hemoglobin 31pg (25-35) Mean Corpuscular Hemoglobin Concent 34g/dL (31-37) Red Cell Distribution Width 13.9% (11.5-14.5) Platelet Count 171x10^3/uL (140-400) Neutrophils (%) (Auto) 71% (31-73) Lymphocytes (%) (Auto) 12% (24-48) Monocytes (%) (Auto) 13% (0-9) Eosinophils (%) (Auto) 3% (0-3) Basophils (%) (Auto) 1% (0-3) Neutrophils # (Auto) 3.8x10^3uL (1.8-7.7) Lymphocytes # (Auto) 0.6x10^3/uL (1.0-4.8) Monocytes # (Auto) 0.7x10^3/uL (0.0-1.1) Eosinophils # (Auto) 0.1x10^3/uL (0.0-0.7) Basophils # (Auto) 0.0x10^3/uL (0.0-0.2) Heparin Anti-Xa Act, Unfractionated 0.23IU/mL (0.30-0.70) Sodium Level 143mmol/L (136-145) Potassium Level 4.3mmol/L (3.5-5.1) Chloride Level 102mmol/L (98-107) Carbon Dioxide Level 30mmol/L (21-32) Anion Gap 11 (6-14) Blood Urea Nitrogen 27mg/dL (8-26) Creatinine 6.8mg/dL (0.7-1.3) Estimated GFR (Cockcroft-Gault) 8.3 Glucose Level 85mg/dL (70-99) Calcium Level 7.7mg/dL (8.5-10.1) Review of Systems Constitutional: yes: alert, oriented Ears/Nose/Throat: Yes: no symptom reported Eyes: Yes: no symptom reported Pulmonary: Yes no symptom reported Cardiovascular: Yes no symptom reported Gastrointestional: Yes: no symptom reported Musculoskeletal: Yes: no symptom reported Psychiatric/Neurological: Yes: no symptom reported Physical Exam General Appearance: no apparent distress Respiratory: bilateral CTA Heart: S1S2 Abdomen: soft Extremities: pulses present Neurology: alert Assessment Assessment IMP ANXIETY ESRD ANEMIA AMI CAD PLAN HD TOMORROW CABG PENDING FOR SATURDAY PRN LAINEY D/W CTS CONT JAYDE MILLER MD Feb 03, 2017 10:50
[2017-02-03] MEDS ORDERED: ALPRAZOLAM 0.5 MG TABLET PO PRN (12:15)
[2017-02-03 12:41] LABS: NEGATIVE OBC STREP NEG; POSITIVE OBC STREP POS
[2017-02-03 14:29] VITALS: BP 114/55
--- NOTE | 2017-02-03 15:14 | PDOC ---
PROGRESS NOTES Subjective Subjective Very anxious, no confusion today We had a talk Objective Objective Vital Signs Date Time Temp Pulse Resp B/P Pulse Ox O2 Delivery O2 Flow Rate FiO2 02/03/17 14:29 98.0 56 114/55 Room Air 98.0 02/03/17 10:48 16 98 02/01/17 04:06 4.0 Intake and Output 02/03/17 07:00 Intake Total 910 ml Balance 910 ml Intake Oral 100 ml IV Total 810 ml # Voids 4 Physical Exam Physical Exam No changes in cardiac exam Assessment Assessment Severe CAD CABGS on saturday Problems Medical Problems: (1) Flank pain Status: Acute (2) Pancreatitis Status: Acute Comment Review of Relevant I have reviewed the following items dionte (where applicable) has been applied. Labs Laboratory Tests Test 02/02/17 03:45 02/02/17 09:26 02/03/17 04:30 02/03/17 12:17 White Blood Count 4.8x10^3/uL (4.0-11.0) 5.3x10^3/uL (4.0-11.0) Red Blood Count 2.74x10^6/uL (4.30-5.70) 2.93x10^6/uL (4.30-5.70) Hemoglobin 8.5g/dL (13.0-17.5) 9.1g/dL (13.0-17.5) Hematocrit 25.6% (39.0-53.0) 27.0% (39.0-53.0) Mean Corpuscular Volume 93fL (79-100) 92fL (79-100) Mean Corpuscular Hemoglobin 31pg (25-35) 31pg (25-35) Mean Corpuscular Hemoglobin Concent 33g/dL (31-37) 34g/dL (31-37) Red Cell Distribution Width 13.7% (11.5-14.5) 13.9% (11.5-14.5) Platelet Count 155x10^3/uL (140-400) 171x10^3/uL (140-400) Neutrophils (%) (Auto) 69% (31-73) 71% (31-73) Lymphocytes (%) (Auto) 14% (24-48) 12% (24-48) Monocytes (%) (Auto) 14% (0-9) 13% (0-9) Eosinophils (%) (Auto) 2% (0-3) 3% (0-3) Basophils (%) (Auto) 1% (0-3) 1% (0-3) Neutrophils # (Auto) 3.3x10^3uL (1.8-7.7) 3.8x10^3uL (1.8-7.7) Lymphocytes # (Auto) 0.7x10^3/uL (1.0-4.8) 0.6x10^3/uL (1.0-4.8) Monocytes # (Auto) 0.7x10^3/uL (0.0-1.1) 0.7x10^3/uL (0.0-1.1) Eosinophils # (Auto) 0.1x10^3/uL (0.0-0.7) 0.1x10^3/uL (0.0-0.7) Basophils # (Auto) 0.0x10^3/uL (0.0-0.2) 0.0x10^3/uL (0.0-0.2) Sodium Level 140mmol/L (136-145) 143mmol/L (136-145) Potassium Level 3.9mmol/L (3.5-5.1) 4.3mmol/L (3.5-5.1) Chloride Level 98mmol/L (98-107) 102mmol/L (98-107) Carbon Dioxide Level 28mmol/L (21-32) 30mmol/L (21-32) Anion Gap 14 (6-14) 11 (6-14) Blood Urea Nitrogen 46mg/dL (8-26) 27mg/dL (8-26) Creatinine 9.8mg/dL (0.7-1.3) 6.8mg/dL (0.7-1.3) Estimated GFR (Cockcroft-Gault) 5.5 8.3 Glucose Level 94mg/dL (70-99) 85mg/dL (70-99) Calcium Level 7.3mg/dL (8.5-10.1) 7.7mg/dL (8.5-10.1) Heparin Anti-Xa Act, Unfractionated 0.14IU/mL (0.30-0.70) 0.23IU/mL (0.30-0.70) Group A Streptococcus Rapid Negative (NEGATIVE) Laboratory Tests Test 02/03/17 04:30 02/03/17 12:17 White Blood Count 5.3x10^3/uL (4.0-11.0) Red Blood Count 2.93x10^6/uL (4.30-5.70) Hemoglobin 9.1g/dL (13.0-17.5) Hematocrit 27.0% (39.0-53.0) Mean Corpuscular Volume 92fL (79-100) Mean Corpuscular Hemoglobin 31pg (25-35) Mean Corpuscular Hemoglobin Concent 34g/dL (31-37) Red Cell Distribution Width 13.9% (11.5-14.5) Platelet Count 171x10^3/uL (140-400) Neutrophils (%) (Auto) 71% (31-73) Lymphocytes (%) (Auto) 12% (24-48) Monocytes (%) (Auto) 13% (0-9) Eosinophils (%) (Auto) 3% (0-3) Basophils (%) (Auto) 1% (0-3) Neutrophils # (Auto) 3.8x10^3uL (1.8-7.7) Lymphocytes # (Auto) 0.6x10^3/uL (1.0-4.8) Monocytes # (Auto) 0.7x10^3/uL (0.0-1.1) Eosinophils # (Auto) 0.1x10^3/uL (0.0-0.7) Basophils # (Auto) 0.0x10^3/uL (0.0-0.2) Heparin Anti-Xa Act, Unfractionated 0.23IU/mL (0.30-0.70) Sodium Level 143mmol/L (136-145) Potassium Level 4.3mmol/L (3.5-5.1) Chloride Level 102mmol/L (98-107) Carbon Dioxide Level 30mmol/L (21-32) Anion Gap 11 (6-14) Blood Urea Nitrogen 27mg/dL (8-26) Creatinine 6.8mg/dL (0.7-1.3) Estimated GFR (Cockcroft-Gault) 8.3 Glucose Level 85mg/dL (70-99) Calcium Level 7.7mg/dL (8.5-10.1) Group A Streptococcus Rapid Negative (NEGATIVE) Medications Current Medications Hydromorphone HCl (Dilaudid) 1 mg 1X ONCE IV Last administered on 01/28/17 23 :57; Start 01/28/17 at 23:30; Stop 01/28/17 at 23:31; Status DC Ondansetron HCl 4 mg 4 mg 1X ONCE IV Last administered on 01/28/17 23:57; Start 01/28/17 at 23:30; Stop 01/28/17 at 23:31; Status DC Sodium Chloride (Iv Sodium Chloride 0.9% 500ml Bag) 500 ml @ 0 mls/hr 1X ONCE IV Last administered on 01/28/17 23:39; Start 01/28/17 at 23:30; Stop at 23:31; Status DC Diphenhydramine HCl (Benadryl) 50 mg 1X ONCE IVP Last administered on 00:29; Start 01/29/17 at 00:30; Stop 01/29/17 at 00:31; Status DC Diphenhydramine HCl (Benadryl) 50 mg STK-MED ONCE .ROUTE ; Start 01/29/17 at 00: 26; Stop 01/29/17 at 00:27; Status DC Morphine Sulfate 4 mg 1X ONCE IV Last administered on 01/29/17 03:55; Start 01/29/17 at 02:15; Stop 01/29/17 at 02:16; Status DC Ondansetron HCl (Zofran) 4 mg PRN Q8HRS PRN IV NAUSEA/VOMITING; Start 01/29/17 at 03:00; Stop 01/30/17 at 02:59; Status DC Morphine Sulfate 4 mg 4 mg PRN Q2HR PRN IV PAIN Last administered on 01/29/17 09:59; Start 01/29/17 at 03:00; Stop 01/29/17 at 11:47; Status DC Sodium Chloride (Iv Sodium Chloride 0.9% 1000ml Bag) 1,000 ml @ 50 mls/hr Q20H IV Last administered on 01/30/17 07:28; Start 01/29/17 at 02:12; Stop at 02:11; Status DC Alprazolam (Xanax) 0.5 mg PRN Q6HRS PRN PO ANXIETY / AGITATION Last administered on 02/03/17 07:45; Start 01/29/17 at 11:30; Stop 02/03/17 at 12:13 ; Status DC Amlodipine Besylate (Norvasc) 10 mg BID PO Last administered on 02/03/17 07:45 ; Start 01/29/17 at 12:00 Aspirin (Children'S Aspirin) 324 mg DAILY PO ; Start 01/29/17 at 12:00; Stop at 18:32; Status DC Calcium Carbonate/ Glycine (Tums) 800 mg TIDAC PO Last administered on 11:27; Start 01/29/17 at 11:30 Clonidine HCl (Catapres) 0.3 mg DAILY PO Last administered on 02/03/17 07:41; Start 01/30/17 at 09:00 Clopidogrel Bisulfate (Plavix) 75 mg DAILY PO ; Start 01/29/17 at 12:00; Stop at 09:45; Status DC Vitamin B Complex/ Vitamin C (Nephro-Chilo) 1 tab DAILY PO Last administered on 02/03/17 07:40; Start 01/29/17 at 12:00 Furosemide (Lasix) 80 mg BID92 PO Last administered on 02/03/17 14:14; Start 01/29/17 at 14:00 Acetaminophen/ Hydrocodone Bitart (Lortab 5/325) 1 tab PRN Q6HRS PRN PO PAIN; Start 01/29/17 at 11:30; Stop 01/29/17 at 18:58; Status DC Isosorbide Mononitrate (Imdur) 30 mg DAILY PO Last administered on 02/03/17 07 :41; Start 01/29/17 at 12:00 Paroxetine HCl (Paxil) 40 mg DAILY PO Last administered on 02/03/17 07:44; Start 01/29/17 at 12:00 Tamsulosin HCl (Flomax) 0.4 mg QHS PO Last administered on 02/02/17 21:10; Start 01/29/17 at 21:00 Hydralazine HCl (Apresoline) 100 mg TID PO Last administered on 02/03/17 07:45 ; Start 01/29/17 at 14:00 Losartan Potassium (Cozaar) 100 mg QHS PO Last administered on 02/02/17 21:08 ; Start 01/29/17 at 21:00 Metoprolol Tartrate (Lopressor) 100 mg BID PO Last administered on 02/03/17 07 :42; Start 01/29/17 at 12:00 Pantoprazole Sodium (Protonix) 40 mg DAILYAC PO Last administered on 02/03/17 07:42; Start 01/29/17 at 12:00 Darbepoetin Percy (Aranesp) 60 mcg WEEKLYHS SQ Last administered on 02/02/17 21 :15; Start 02/02/17 at 21:00 Morphine Sulfate 6 mg 6 mg PRN Q2HR PRN IV PAIN Last administered on 01/30/17 19:22; Start 01/29/17 at 11:45; Stop 02/01/17 at 15:20; Status DC Sodium Chloride (Iv Sodium Chloride 0.9% 1000ml Bag) 1,000 ml @ 1,000 mls/hr Q1H PRN IV hypotension; Start 01/29/17 at 12:55; Stop 01/29/17 at 18:54; Status DC Diphenhydramine HCl (Benadryl) 25 mg 1X PRN PRN IV ITCHING Last administered on 01/29/17 19:12; Start 01/29/17 at 13:00; Stop 01/30/17 at 12:59; Status DC Diphenhydramine HCl (Benadryl) 25 mg 1X PRN PRN IV ITCHING Last administered on 01/29/17 13:16; Start 01/29/17 at 13:00; Stop 01/30/17 at 12:59; Status DC Info (PHARMACY MONITORING -- do not chart) 1 each PRN DAILY PRN MC SEE COMMENTS ; Start 01/29/17 at 13:00; Status UNV Info (PHARMACY MONITORING -- do not chart) 1 each PRN DAILY PRN MC SEE COMMENTS ; Start 01/29/17 at 13:00; Stop 02/03/17 at 09:04; Status DC Nitroglycerin (Nitrostat) 0.4 mg STK-MED ONCE SL ; Start 01/29/17 at 16:55; Stop 01/29/17 at 16:56; Status DC Heparin Sodium (Porcine) 4000 unit 4,000 unit 1X ONCE IV Last administered on 01/29/17t 17:37; Start 01/29/17 at 17:30; Stop 01/29/17 at 17:31; Status DC Heparin Sodium/ Sodium Chloride 500 ml @ As Directed STK-MED ONCE .ROUTE ; Start 01/29/17 at 17:54; Stop 01/29/17 at 17:55; Status DC Lidocaine HCl 20 ml STK-MED ONCE .ROUTE ; Start 01/29/17 at 17:54; Stop at 17:55; Status DC Iodixanol (Visipaque 320) 100 ml STK-MED ONCE .ROUTE ; Start 01/29/17 at 17:54; Stop 01/29/17 at 17:55; Status DC Metoprolol Tartrate (Lopressor) 5 mg STK-MED ONCE .ROUTE ; Start 01/29/17 at 18: 05; Stop 01/29/17 at 18:06; Status DC Fentanyl Citrate (Fentanyl 2ml Vial) 100 mcg STK-MED ONCE .ROUTE ; Start at 18:05; Stop 01/29/17 at 18:06; Status DC Midazolam HCl 2 mg 2 mg STK-MED ONCE .ROUTE ; Start 01/29/17 at 18:05; Stop at 18:06; Status DC Heparin Sodium/ Dextrose 500 ml @ As Directed STK-MED ONCE IV ; Start 01/29/17 at 18:18; Stop 01/29/17 at 18:19; Status DC Heparin Sodium (Porcine) 10,000 unit STK-MED ONCE .ROUTE ; Start 01/29/17 at 18: 18; Stop 01/29/17 at 18:19; Status DC Metoprolol Tartrate (Lopressor) 5 mg STK-MED ONCE .ROUTE ; Start 01/29/17 at 18: 25; Stop 01/29/17 at 18:26; Status DC Heparin Sodium/ Sodium Chloride 1,000 unit 1X ONCE IART Last administered on t 18:51; Start 01/29/17 at 18:45; Stop 01/29/17 at 18:53; Status DC Heparin Sodium/ Sodium Chloride 1,000 unit 1X ONCE IART Last administered on 18:51; Start 01/29/17 at 18:45; Stop 01/29/17 at 18:53; Status DC Midazolam HCl (Versed) 1 mg 1X ONCE IV Last administered on 01/29/17 18:53; Start 01/29/17 at 18:45; Stop 01/29/17 at 18:53; Status DC Fentanyl Citrate (Fentanyl 2ml Vial) 50 mcg 1X ONCE IV Last administered on 18:53; Start 01/29/17 at 18:45; Stop 01/29/17 at 18:53; Status DC Iodixanol (Visipaque 320) 105 ml 1X ONCE IART Last administered on 01/29/17 18:52; Start 01/29/17 at 18:45; Stop 01/29/17 at 18:53; Status DC Heparin Sodium (Porcine) 4000 unit 4,000 unit 1X ONCE IV Last administered on 01/29/17 18:53; Start 01/29/17 at 18:45; Stop 01/29/17 at 18:53; Status DC Heparin Sodium/ Dextrose 500 ml @ 20 mls/hr CONT PRN IV SEE I/O RECORD; Start 01/29/17 at 18:24; Stop 01/30/17 at 14:01; Status DC Metoprolol Tartrate (Lopressor) 10 mg 1X ONCE IVP Last administered on 18:52; Start 01/29/17 at 18:45; Stop 01/29/17 at 18:53; Status DC Lidocaine HCl 10 ml 1X ONCE IJ Last administered on 01/29/17 18:52; Start at 18:45; Stop 01/29/17 at 18:53; Status DC Sodium Chloride (Normal Saline Flush) 3 ml QSHIFT PRN IV AFTER MEDS AND BLOOD DRAWS; Start 01/29/17 at 18:45 Docusate Sodium (Colace) 100 mg BID PO Last administered on 02/03/17 07:40; Start 01/29/17 at 21:00 Fentanyl Citrate (Fentanyl 2ml Vial) 50 mcg PRN Q1HR PRN IV SEVERE PAIN Last administered on 01/29/17 23:25; Start 01/29/17 at 18:45 Cyclobenzaprine HCl (Flexeril) 10 mg PRN TID PRN PO MUSCLE SPASMS Last administered on 01/30/17 05:22; Start 01/29/17 at 18:45 Ondansetron HCl (Zofran) 4 mg PRN Q6HRS PRN IV NAUSEA/VOMITING; Start 01/29/17 at 18:45 Nitroglycerin (Nitrostat) 0.4 mg PRN Q5MIN PRN SL CHEST PAIN; Start 01/29/17 at 18:45 Acetaminophen/ Hydrocodone Bitart (Lortab 5/325) 1 tab PRN Q4HRS PRN PO MILD PAIN Last administered on 02/02/17 21:11; Start 01/29/17 at 18:45 Diltiazem HCl 5 mg 5 mg 1X ONCE IVP Last administered on 01/29/17 19:23; Start 01/29/17 at 19:15; Stop 01/29/17 at 19:18; Status DC Diltiazem HCl/ Dextrose (Cardizem) 125 ml @ 0 mls/hr CONT PRN IV SEE I/O RECORD ; Start 01/29/17 at 19:15; Stop 02/03/17 at 12:13; Status DC Diphenhydramine HCl (Benadryl) 50 mg PRN Q8HRS PRN IVP ITCHING Last administered on 02/02/17 09:41; Start 01/29/17 at 19:15; Stop 02/03/17 at 09:05 ; Status DC Nitroglycerin (Nitrostat) 0.4 mg STK-MED ONCE SL ; Start 01/29/17 at 17:00; Stop 01/30/17 at 08:02; Status DC Info (Anti-Coagulation Monitoring By Pharmacy) 1 each PRN DAILY PRN MC SEE COMMENTS Last administered on 01/30/17 10:49; Start 01/30/17 at 10:45 Heparin Sodium (Porcine) 3000 unit 3,000 unit 1X ONCE IV Last administered on 01/30/17 17:36; Start 01/30/17 at 18:00; Stop 01/30/17 at 18:01; Status DC Heparin Sodium/ Dextrose 500 ml @ 24 mls/hr CONT PRN IV SEE I/O RECORD Last administered on 02/03/17 05:47; Start 01/30/17 at 18:00 Sodium Chloride (Iv Sodium Chloride 0.9% 1000ml Bag) 1,000 ml @ 50 mls/hr Q20H IV Last administered on 01/31/17 23:30; Start 01/31/17 at 02:45; Stop at 12:13; Status DC Dextrose 25 gm 1X ONCE IV Last administered on 01/31/17 06:05; Start at 06:30; Stop 01/31/17 at 06:31; Status DC Insulin Human Regular (Novolin R Vial) 10 unit 1X ONCE IV Last administered on 01/31/17 06:09; Start 01/31/17 at 06:30; Stop 01/31/17 at 06:31; Status DC Dextrose 25 gm 25 gm 1X ONCE IV Last administered on 01/31/17 09:04; Start at 09:00; Stop 01/31/17 at 09:03; Status DC Sodium Chloride 1,000 ml @ 1,000 mls/hr Q1H PRN IV hypotension; Start 01/31/17 at 09:28; Stop 01/31/17 at 15:27; Status DC Albumin Human (Albuminar) 200 ml @ 200 mls/hr 1X PRN PRN IV Hypotension; Start 01/31/17 at 09:30; Stop 01/31/17 at 15:29; Status DC Acetaminophen (Tylenol) 500 mg 1X PRN PRN PO MILD PAIN / TEMP; Start 01/31/17 at 09:30; Stop 02/01/17 at 09:29; Status DC Diphenhydramine HCl (Benadryl) 25 mg 1X PRN PRN IV ITCHING Last administered on 01/31/17 18:05; Start 01/31/17 at 09:30; Stop 02/01/17 at 09:29; Status DC Diphenhydramine HCl (Benadryl) 25 mg 1X PRN PRN IV ITCHING; Start 01/31/17 at 09:30; Stop 02/01/17 at 09:29; Status DC Info (PHARMACY MONITORING -- do not chart) 1 each PRN DAILY PRN MC SEE COMMENTS ; Start 01/31/17 at 09:30; Status UNV Diphenhydramine HCl (Benadryl) 50 mg PRN Q6HRS PRN IVP ITCHING Last administered on 02/01/17 17:09; Start 02/01/17 at 15:15 Fentanyl Citrate (Fentanyl 2ml Vial) 25 mcg PRN Q4HRS PRN IV MODERATE PAIN; Start 02/01/17 at 15:15 Diphenhydramine HCl (Benadryl) 25 mg 1X PRN PRN IV ITCHING; Start 02/02/17 at 09:30; Stop 02/03/17 at 09:29; Status DC Info (PHARMACY MONITORING -- do not chart) 1 each PRN DAILY PRN MC SEE COMMENTS ; Start 02/02/17 at 09:30; Stop 02/03/17 at 09:05; Status DC Info (PHARMACY MONITORING -- do not chart) 1 each PRN DAILY PRN MC SEE COMMENTS ; Start 02/02/17 at 09:30 Throat Lozenges (Cepacol Sore Throat Lozenge) 1 estelita PRN Q2HRS PRN PO SORE THROAT Last administered on 02/03/17 07:40; Start 02/03/17 at 07:15 Alprazolam (Xanax) 0.25 mg PRN Q6HRS PRN PO ANXIETY / AGITATION, 1ST CHOIC Last administered on 02/03/17 14:15; Start 02/03/17 at 12:15 Alprazolam (Xanax) 0.5 mg PRN Q6HRS PRN PO ANXIETY / AGITATION, 2ND CHOIC; Start 02/03/17 at 12:30 Active Scripts Active Clopidogrel (Clopidogrel Bisulfate) 75 Mg Tablet 1 Tab PO DAILY Isosorbide Mononitrate Er (Isosorbide Mononitrate) 30 Mg Tab.er.24h 30 Mg PO DAILY Flomax (Tamsulosin Hcl) 0.4 Mg Cap.er.24h 0.4 Mg PO QHS Reported Hydrocodone-Apap 5-325 (Hydrocodone Bit/Acetaminophen) 1 Each Tablet 1 Tab PO PRN Q6HRS PRN Furosemide 80 Mg Tablet 1 Tab PO BID Nephro-Chilo Tablet (Folic Acid/Vitamin B Comp W-C) 0.8 Mg Tablet 1 Tab PO DAILY Paroxetine Hcl 20 Mg Tablet 40 Mg PO DAILY Tums (Calcium Carbonate) 200 Mg Tab.chew 800 Mg PO TIDAC Omeprazole Magnesium 20 Mg Capsule.dr 20 Mg PO DAILY Clonidine Hcl 0.3 Mg Tablet 1 Tab PO DAILY Hydralazine Hcl 100 Mg Tablet 100 Mg PO TID LAST DOSE: 02/24/16 AFTERNOON NEXT DOSE: 02/24/16 BEDTIME Amlodipine Besylate 10 Mg Tablet 10 Mg PO BID LAST DOSE: 02/24/16 AM NEXT DOSE: 02/25/16 AM Xanax (Alprazolam) 0.5 Mg Tablet 0.5 Mg PO Q6HRS PRN LAST DOSE: 02/23/16 BEDTIME NEXT DOSE: 02/24/16 BEDTIME Losartan Potassium 100 Mg Tablet 100 Mg PO HS LAST DOSE: 02/23/16 BEDTIME NEXT DOSE: 02/24/16 BEDTIME Metoprolol Tartrate 100 Mg Tablet 100 Mg PO BID LAST DOSE: 02/24/16 AM NEXT DOSE: 02/24/16 BEDTIME Lillian Chewable (Aspirin) 81 Mg Tab.chew 324 Mg PO DAILY LAST DOSE: 02/24/16 AM NEXT DOSE: 02/25/16 AM Vitals/I & O Vital Sign - Last 24 Hours 02/02/17 02/02/17 02/02/17 02/02/17 19:00 20:00 21:08 21:09 Temp 97.9 97.9 Pulse 60 60 60 Resp 16 B/P 129/57 129/57 129/57 Pulse Ox 95 O2 Delivery Room Air Room Air 02/02/17 02/02/17 02/02/17 02/02/17 21:09 21:10 21:11 22:11 Pulse 60 60 Resp 18 20 B/P 129/57 129/57 Pulse Ox 95 95 O2 Delivery Room Air Room Air 02/02/17 02/03/17 02/03/17 02/03/17 23:27 03:00 07:00 07:41 Temp 98.4 98.1 98.0 98.4 98.1 98.0 Pulse 56 60 66 67 Resp 18 18 16 B/P 115/52 121/63 138/64 138/64 Pulse Ox 96 95 99 O2 Delivery Room Air Room Air Room Air 02/03/17 02/03/17 02/03/17 02/03/17 07:41 07:42 07:45 07:45 Pulse 66 66 66 66 B/P 138/64 138/64 138/64 138/64 02/03/17 02/03/17 02/03/17 08:00 10:48 14:29 Temp 98.2 98.0 98.2 98.0 Pulse 56 56 Resp 16 B/P 129/62 114/55 Pulse Ox 98 O2 Delivery Room Air Room Air Room Air Intake and Output 02/02/17 02/02/17 02/03/17 15:00 23:00 07:00 Intake Total 910 ml Balance 910 ml Nutrition Consultation Dietary Evaluation: Recommendations by RD: Increase Calorie Intake Comments: Boost breeze TID - 250kcal and 9g protein per serving Expected Outcomes/Goals: diet advancement Malnutrition Findings: Weight Status: Overweight ESTEFANÍA MANZO MD Feb 03, 2017 15:14
[2017-02-03 19:25] VITALS: BP 125/56
[2017-02-03] MEDS: LOSARTAN POTASSIUM 50 MG TABLET. PO SCH (20:49)
[2017-02-03] MEDS: TAMSULOSIN 0.4 MG CAP.ER.24H. PO SCH (20:49)
[2017-02-03] MEDS: HYDROCODONE/APAP 5/325MG TABLET. PO PRN (20:50)
[2017-02-03 22:45] VITALS: BP 106/40
[2017-02-04 03:50] VITALS: BP 113/57
[2017-02-04] MEDS: ALPRAZOLAM 0.5 MG TABLET PO PRN ×3 (04:54→23:00)
[2017-02-04 04:55] LABS: BASO # 0.1 x10^3/uL (0.0-0.2); BASO % 1 % (0-3); EOS % 2 % (0-3); HEMATOCRIT 26.9 % (39.0-53.0); HEMOGLOBIN 9.1 g/dL (13.0-17.5); LYMPH # 0.6 x10^3/uL (1.0-4.8); LYMPH % 9 % (24-48); MEAN CORPUSCULAR HEMOGLOBIN 31 pg (25-35); MEAN CORPUSCULAR HGB CONC 34 g/dL (31-37); MEAN CORPUSCULAR VOLUME 93 fL (79-100); MONO % 12 % (0-9); NEUT % 77 % (31-73); PLATELET COUNT 169 x10^3/uL (140-400); RED BLOOD COUNT 2.91 x10^6/uL (4.30-5.70); RED CELL DISTRIBUTION WIDTH 13.9 % (11.5-14.5); WHITE BLOOD COUNT 7.2 x10^3/uL (4.0-11.0)
[2017-02-04] MEDS: HYDROCODONE/APAP 5/325MG TABLET. PO PRN ×2 (04:55→17:16)
[2017-02-04 05:27] LABS: CALCIUM 7.7 mg/dL (8.5-10.1); CREATININE 8.9 mg/dL (0.7-1.3); GFR 6.1; POTASSIUM 4.5 mmol/L (3.5-5.1)
[2017-02-04 07:21] VITALS: BP 133/68
[2017-02-04] MEDS: CALCIUM CARBONATE 500 MG TAB.CHEW PO SCH ×3 (07:30→17:19)
[2017-02-04] MEDS: HYDRALAZINE 50 MG TABLET PO SCH ×3 (09:00→20:54)
[2017-02-04] MEDS: DOCUSATE SODIUM 100 MG CAPSULE PO SCH ×2 (09:00→20:54)
[2017-02-04] MEDS: FUROSEMIDE 80 MG TABLET PO SCH ×3 (09:00→15:11)
[2017-02-04] MEDS: ANTI-COAG MONITOR BY PHARMACY. MC PRN (09:51)
--- NOTE | 2017-02-04 09:52 | PDOC ---
Subjective: Subjective: No GI complaints. Does have sore throat and hoarseness. Objective: Objective: Per RN - CABG tomorrow, no GI concerns. Vital Signs: Vital Signs Date Time Temp Pulse Resp B/P Pulse Ox O2 Delivery O2 Flow Rate FiO2 02/04/17 07:21 97.8 61 20 133/68 96 Nasal Cannula 2.0 97.8 Labs: Laboratory Tests Test 02/03/17 12:17 02/04/17 04:45 Group A Streptococcus Rapid Negative White Blood Count 7.2x10^3/uL Red Blood Count 2.91x10^6/uL Hemoglobin 9.1g/dL Hematocrit 26.9% Mean Corpuscular Volume 93fL Mean Corpuscular Hemoglobin 31pg Mean Corpuscular Hemoglobin Concent 34g/dL Red Cell Distribution Width 13.9% Platelet Count 169x10^3/uL Neutrophils (%) (Auto) 77% Lymphocytes (%) (Auto) 9% Monocytes (%) (Auto) 12% Eosinophils (%) (Auto) 2% Basophils (%) (Auto) 1% Neutrophils # (Auto) 5.6x10^3uL Lymphocytes # (Auto) 0.6x10^3/uL Monocytes # (Auto) 0.8x10^3/uL Eosinophils # (Auto) 0.1x10^3/uL Basophils # (Auto) 0.1x10^3/uL Sodium Level 140mmol/L Potassium Level 4.5mmol/L Chloride Level 100mmol/L Carbon Dioxide Level 28mmol/L Anion Gap 12 Blood Urea Nitrogen 34mg/dL Creatinine 8.9mg/dL Estimated GFR (Cockcroft-Gault) 6.1 Glucose Level 100mg/dL Calcium Level 7.7mg/dL PE: GEN: NAD, laying in bed w/ lights off, friendly LUNGS: nasal cannula HEART: S1S2 ABD: S/ND/NT NEURO/PSYCH: A & O 3 A/P: STEMI 01/29, CAD, PAD, ESRD on HD -CABG tomorrow Recurrent pancreatitis -pain resolved, appetite improved -s/p cholecystectomy w/o h/o alcohol use GERD, h/o PUD -last EGD 2014 -on PPI Sore throat, hoarseness -per primary, rapid strep neg -- Stable GI-amado. Will follow. TOMMY SALVADOR Feb 04, 2017 09:52 NGOZI SANCHEZ MD Feb 04, 2017 12:01
[2017-02-04] MEDS ORDERED: IV NORMAL SALINE 1000ML BAG 1,000 ML IV PRN (09:55)
[2017-02-04] MEDS ORDERED: DIALYSIS PATIENT. MC PRN (10:00)
[2017-02-04 10:05] VITALS: BP 127/59
--- NOTE | 2017-02-04 10:34 | PDOC ---
PROGRESS NOTES Subjective Subjective Pt up in chair. Reports shortness of breath overnight, felt like choking, but improved with pain meds/xanax. No complaints this morning. Objective Objective Vital Signs Date Time Temp Pulse Resp B/P Pulse Ox O2 Delivery O2 Flow Rate FiO2 02/04/17 10:05 98.0 62 20 127/59 96 Nasal Cannula 2.0 98.0 Intake and Output 02/04/17 07:00 Intake Total 1988 ml Balance 1988 ml Intake Oral 1700 ml IV Total 288 ml # Voids 2 # Bowel Movements 1 Physical Exam Physical Exam No changes in cardiac exam Assessment Assessment Problems Medical Problems: (1) Flank pain Status: Acute (2) Pancreatitis Status: Acute Plan Plan of Care Severe CAD HD today CABGS tomorrow Comment Review of Relevant I have reviewed the following items dionte (where applicable) has been applied. Labs Laboratory Tests Test 02/03/17 04:30 02/03/17 12:17 02/04/17 04:45 White Blood Count 5.3x10^3/uL (4.0-11.0) 7.2x10^3/uL (4.0-11.0) Red Blood Count 2.93x10^6/uL (4.30-5.70) 2.91x10^6/uL (4.30-5.70) Hemoglobin 9.1g/dL (13.0-17.5) 9.1g/dL (13.0-17.5) Hematocrit 27.0% (39.0-53.0) 26.9% (39.0-53.0) Mean Corpuscular Volume 92fL (79-100) 93fL (79-100) Mean Corpuscular Hemoglobin 31pg (25-35) 31pg (25-35) Mean Corpuscular Hemoglobin Concent 34g/dL (31-37) 34g/dL (31-37) Red Cell Distribution Width 13.9% (11.5-14.5) 13.9% (11.5-14.5) Platelet Count 171x10^3/uL (140-400) 169x10^3/uL (140-400) Neutrophils (%) (Auto) 71% (31-73) 77% (31-73) Lymphocytes (%) (Auto) 12% (24-48) 9% (24-48) Monocytes (%) (Auto) 13% (0-9) 12% (0-9) Eosinophils (%) (Auto) 3% (0-3) 2% (0-3) Basophils (%) (Auto) 1% (0-3) 1% (0-3) Neutrophils # (Auto) 3.8x10^3uL (1.8-7.7) 5.6x10^3uL (1.8-7.7) Lymphocytes # (Auto) 0.6x10^3/uL (1.0-4.8) 0.6x10^3/uL (1.0-4.8) Monocytes # (Auto) 0.7x10^3/uL (0.0-1.1) 0.8x10^3/uL (0.0-1.1) Eosinophils # (Auto) 0.1x10^3/uL (0.0-0.7) 0.1x10^3/uL (0.0-0.7) Basophils # (Auto) 0.0x10^3/uL (0.0-0.2) 0.1x10^3/uL (0.0-0.2) Heparin Anti-Xa Act, Unfractionated 0.23IU/mL (0.30-0.70) Sodium Level 143mmol/L (136-145) 140mmol/L (136-145) Potassium Level 4.3mmol/L (3.5-5.1) 4.5mmol/L (3.5-5.1) Chloride Level 102mmol/L (98-107) 100mmol/L (98-107) Carbon Dioxide Level 30mmol/L (21-32) 28mmol/L (21-32) Anion Gap 11 (6-14) 12 (6-14) Blood Urea Nitrogen 27mg/dL (8-26) 34mg/dL (8-26) Creatinine 6.8mg/dL (0.7-1.3) 8.9mg/dL (0.7-1.3) Estimated GFR (Cockcroft-Gault) 8.3 6.1 Glucose Level 85mg/dL (70-99) 100mg/dL (70-99) Calcium Level 7.7mg/dL (8.5-10.1) 7.7mg/dL (8.5-10.1) Group A Streptococcus Rapid Negative (NEGATIVE) Laboratory Tests Test 02/03/17 12:17 02/04/17 04:45 Group A Streptococcus Rapid Negative (NEGATIVE) White Blood Count 7.2x10^3/uL (4.0-11.0) Red Blood Count 2.91x10^6/uL (4.30-5.70) Hemoglobin 9.1g/dL (13.0-17.5) Hematocrit 26.9% (39.0-53.0) Mean Corpuscular Volume 93fL (79-100) Mean Corpuscular Hemoglobin 31pg (25-35) Mean Corpuscular Hemoglobin Concent 34g/dL (31-37) Red Cell Distribution Width 13.9% (11.5-14.5) Platelet Count 169x10^3/uL (140-400) Neutrophils (%) (Auto) 77% (31-73) Lymphocytes (%) (Auto) 9% (24-48) Monocytes (%) (Auto) 12% (0-9) Eosinophils (%) (Auto) 2% (0-3) Basophils (%) (Auto) 1% (0-3) Neutrophils # (Auto) 5.6x10^3uL (1.8-7.7) Lymphocytes # (Auto) 0.6x10^3/uL (1.0-4.8) Monocytes # (Auto) 0.8x10^3/uL (0.0-1.1) Eosinophils # (Auto) 0.1x10^3/uL (0.0-0.7) Basophils # (Auto) 0.1x10^3/uL (0.0-0.2) Sodium Level 140mmol/L (136-145) Potassium Level 4.5mmol/L (3.5-5.1) Chloride Level 100mmol/L (98-107) Carbon Dioxide Level 28mmol/L (21-32) Anion Gap 12 (6-14) Blood Urea Nitrogen 34mg/dL (8-26) Creatinine 8.9mg/dL (0.7-1.3) Estimated GFR (Cockcroft-Gault) 6.1 Glucose Level 100mg/dL (70-99) Calcium Level 7.7mg/dL (8.5-10.1) Medications Current Medications Hydromorphone HCl (Dilaudid) 1 mg 1X ONCE IV Last administered on 01/28/17 23 :57; Start 01/28/17 at 23:30; Stop 01/28/17 at 23:31; Status DC Ondansetron HCl 4 mg 4 mg 1X ONCE IV Last administered on 01/28/17 23:57; Start 01/28/17 at 23:30; Stop 01/28/17 at 23:31; Status DC Sodium Chloride (Iv Sodium Chloride 0.9% 500ml Bag) 500 ml @ 0 mls/hr 1X ONCE IV Last administered on 01/28/17 23:39; Start 01/28/17 at 23:30; Stop at 23:31; Status DC Diphenhydramine HCl (Benadryl) 50 mg 1X ONCE IVP Last administered on 00:29; Start 01/29/17 at 00:30; Stop 01/29/17 at 00:31; Status DC Diphenhydramine HCl (Benadryl) 50 mg STK-MED ONCE .ROUTE ; Start 01/29/17 at 00: 26; Stop 01/29/17 at 00:27; Status DC Morphine Sulfate 4 mg 1X ONCE IV Last administered on 01/29/17 03:55; Start 01/29/17 at 02:15; Stop 01/29/17 at 02:16; Status DC Ondansetron HCl (Zofran) 4 mg PRN Q8HRS PRN IV NAUSEA/VOMITING; Start 01/29/17 at 03:00; Stop 01/30/17 at 02:59; Status DC Morphine Sulfate 4 mg 4 mg PRN Q2HR PRN IV PAIN Last administered on 01/29/17 09:59; Start 01/29/17 at 03:00; Stop 01/29/17 at 11:47; Status DC Sodium Chloride (Iv Sodium Chloride 0.9% 1000ml Bag) 1,000 ml @ 50 mls/hr Q20H IV Last administered on 01/30/17 07:28; Start 01/29/17 at 02:12; Stop at 02:11; Status DC Alprazolam (Xanax) 0.5 mg PRN Q6HRS PRN PO ANXIETY / AGITATION Last administered on 02/03/17 07:45; Start 01/29/17 at 11:30; Stop 02/03/17 at 12:13 ; Status DC Amlodipine Besylate (Norvasc) 10 mg BID PO Last administered on 02/03/17 20:50 ; Start 01/29/17 at 12:00 Aspirin (Children'S Aspirin) 324 mg DAILY PO ; Start 01/29/17 at 12:00; Stop at 18:32; Status DC Calcium Carbonate/ Glycine (Tums) 800 mg TIDAC PO Last administered on 17:06; Start 01/29/17 at 11:30 Clonidine HCl (Catapres) 0.3 mg DAILY PO Last administered on 02/03/17 07:41; Start 01/30/17 at 09:00 Clopidogrel Bisulfate (Plavix) 75 mg DAILY PO ; Start 01/29/17 at 12:00; Stop at 09:45; Status DC Vitamin B Complex/ Vitamin C (Nephro-Chilo) 1 tab DAILY PO Last administered on 02/03/17 07:40; Start 01/29/17 at 12:00 Furosemide (Lasix) 80 mg [id number] PO Last administered on 02/03/17 14:14; Start 01/29/17 at 14:00 Acetaminophen/ Hydrocodone Bitart (Lortab 5/325) 1 tab PRN Q6HRS PRN PO PAIN; Start 01/29/17 at 11:30; Stop 01/29/17 at 18:58; Status DC Isosorbide Mononitrate (Imdur) 30 mg DAILY PO Last administered on 02/03/17 07 :41; Start 01/29/17 at 12:00 Paroxetine HCl (Paxil) 40 mg DAILY PO Last administered on 02/03/17 07:44; Start 01/29/17 at 12:00 Tamsulosin HCl (Flomax) 0.4 mg QHS PO Last administered on 02/03/17 20:49; Start 01/29/17 at 21:00 Hydralazine HCl (Apresoline) 100 mg TID PO Last administered on 02/03/17 20:52 ; Start 01/29/17 at 14:00 Losartan Potassium (Cozaar) 100 mg QHS PO Last administered on 02/03/17 20:49 ; Start 01/29/17 at 21:00 Metoprolol Tartrate (Lopressor) 100 mg BID PO Last administered on 02/03/17 20 :51; Start 01/29/17 at 12:00 Pantoprazole Sodium (Protonix) 40 mg DAILYAC PO Last administered on 02/03/17 07:42; Start 01/29/17 at 12:00 Darbepoetin Percy (Aranesp) 60 mcg [id number] SQ Last administered on 02/02/17 21 :15; Start 02/02/17 at 21:00 Morphine Sulfate 6 mg 6 mg PRN Q2HR PRN IV PAIN Last administered on 01/30/17 19:22; Start 01/29/17 at 11:45; Stop 02/01/17 at 15:20; Status DC Sodium Chloride (Iv Sodium Chloride 0.9% 1000ml Bag) 1,000 ml @ 1,000 mls/hr Q1H PRN IV hypotension; Start 01/29/17 at 12:55; Stop 01/29/17 at 18:54; Status DC Diphenhydramine HCl (Benadryl) 25 mg 1X PRN PRN IV ITCHING Last administered on 01/29/17 19:12; Start 01/29/17 at 13:00; Stop 01/30/17 at 12:59; Status DC Diphenhydramine HCl (Benadryl) 25 mg 1X PRN PRN IV ITCHING Last administered on 01/29/17 13:16; Start 01/29/17 at 13:00; Stop 01/30/17 at 12:59; Status DC Info (PHARMACY MONITORING -- do not chart) 1 each PRN DAILY PRN MC SEE COMMENTS ; Start 01/29/17 at 13:00; Status UNV Info (PHARMACY MONITORING -- do not chart) 1 each PRN DAILY PRN MC SEE COMMENTS ; Start 01/29/17 at 13:00; Stop 02/03/17 at 09:04; Status DC Nitroglycerin (Nitrostat) 0.4 mg STK-MED ONCE SL ; Start 01/29/17 at 16:55; Stop 01/29/17 at 16:56; Status DC Heparin Sodium (Porcine) 4000 unit 4,000 unit 1X ONCE IV Last administered on 01/29/17 17:37; Start 01/29/17 at 17:30; Stop 01/29/17 at 17:31; Status DC Heparin Sodium/ Sodium Chloride 500 ml @ As Directed STK-MED ONCE .ROUTE ; Start 01/29/17 at 17:54; Stop 01/29/17 at 17:55; Status DC Lidocaine HCl 20 ml STK-MED ONCE .ROUTE ; Start 01/29/17 at 17:54; Stop at 17:55; Status DC Iodixanol (Visipaque 320) 100 ml STK-MED ONCE .ROUTE ; Start 01/29/17 at 17:54; Stop 01/29/17 at 17:55; Status DC Metoprolol Tartrate (Lopressor) 5 mg STK-MED ONCE .ROUTE ; Start 01/29/17 at 18: 05; Stop 01/29/17 at 18:06; Status DC Fentanyl Citrate (Fentanyl 2ml Vial) 100 mcg STK-MED ONCE .ROUTE ; Start at 18:05; Stop 01/29/17 at 18:06; Status DC Midazolam HCl 2 mg 2 mg STK-MED ONCE .ROUTE ; Start 01/29/17 at 18:05; Stop at 18:06; Status DC Heparin Sodium/ Dextrose 500 ml @ As Directed STK-MED ONCE IV ; Start 01/29/17 at 18:18; Stop 01/29/17 at 18:19; Status DC Heparin Sodium (Porcine) 10,000 unit STK-MED ONCE .ROUTE ; Start 01/29/17 at 18: 18; Stop 01/29/17 at 18:19; Status DC Metoprolol Tartrate (Lopressor) 5 mg STK-MED ONCE .ROUTE ; Start 01/29/17 at 18: 25; Stop 01/29/17 at 18:26; Status DC Heparin Sodium/ Sodium Chloride 1,000 unit 1X ONCE IART Last administered on 18:51; Start 01/29/17 at 18:45; Stop 01/29/17 at 18:53; Status DC Heparin Sodium/ Sodium Chloride 1,000 unit 1X ONCE IART Last administered on 18:51; Start 01/29/17 at 18:45; Stop 01/29/17 at 18:53; Status DC Midazolam HCl (Versed) 1 mg 1X ONCE IV Last administered on 01/29/17 18:53; Start 01/29/17 at 18:45; Stop 01/29/17 at 18:53; Status DC Fentanyl Citrate (Fentanyl 2ml Vial) 50 mcg 1X ONCE IV Last administered on 18:53; Start 01/29/17 at 18:45; Stop 01/29/17 at 18:53; Status DC Iodixanol (Visipaque 320) 105 ml 1X ONCE IART Last administered on 01/29/17 18:52; Start 01/29/17 at 18:45; Stop 01/29/17 at 18:53; Status DC Heparin Sodium (Porcine) 4000 unit 4,000 unit 1X ONCE IV Last administered on 01/29/17 18:53; Start 01/29/17 at 18:45; Stop 01/29/17 at 18:53; Status DC Heparin Sodium/ Dextrose 500 ml @ 20 mls/hr CONT PRN IV SEE I/O RECORD; Start 01/29/17 at 18:24; Stop 01/30/17 at 14:01; Status DC Metoprolol Tartrate (Lopressor) 10 mg 1X ONCE IVP Last administered on 18:52; Start 01/29/17 at 18:45; Stop 01/29/17 at 18:53; Status DC Lidocaine HCl 10 ml 1X ONCE IJ Last administered on 01/29/17 18:52; Start at 18:45; Stop 01/29/17 at 18:53; Status DC Sodium Chloride (Normal Saline Flush) 3 ml QSHIFT PRN IV AFTER MEDS AND BLOOD DRAWS; Start 01/29/17 at 18:45 Docusate Sodium (Colace) 100 mg BID PO Last administered on 02/03/17 20:49; Start 01/29/17 at 21:00 Fentanyl Citrate (Fentanyl 2ml Vial) 50 mcg PRN Q1HR PRN IV SEVERE PAIN Last administered on 01/29/17 23:25; Start 01/29/17 at 18:45 Cyclobenzaprine HCl (Flexeril) 10 mg PRN TID PRN PO MUSCLE SPASMS Last administered on 01/30/17 05:22; Start 01/29/17 at 18:45 Ondansetron HCl (Zofran) 4 mg PRN Q6HRS PRN IV NAUSEA/VOMITING; Start 01/29/17 at 18:45 Nitroglycerin (Nitrostat) 0.4 mg PRN Q5MIN PRN SL CHEST PAIN; Start 01/29/17 at 18:45 Acetaminophen/ Hydrocodone Bitart (Lortab 5/325) 1 tab PRN Q4HRS PRN PO MILD PAIN Last administered on 02/04/17 04:55; Start 01/29/17 at 18:45 Diltiazem HCl 5 mg 5 mg 1X ONCE IVP Last administered on 01/29/17 19:23; Start 01/29/17 at 19:15; Stop 01/29/17 at 19:18; Status DC Diltiazem HCl/ Dextrose (Cardizem) 125 ml @ 0 mls/hr CONT PRN IV SEE I/O RECORD ; Start 01/29/17 at 19:15; Stop 02/03/17 at 12:13; Status DC Diphenhydramine HCl (Benadryl) 50 mg PRN Q8HRS PRN IVP ITCHING Last administered on 02/02/17 09:41; Start 01/29/17 at 19:15; Stop 02/03/17 at 09:05 ; Status DC Nitroglycerin (Nitrostat) 0.4 mg STK-MED ONCE SL ; Start 01/29/17 at 17:00; Stop 01/30/17 at 08:02; Status DC Info (Anti-Coagulation Monitoring By Pharmacy) 1 each PRN DAILY PRN MC SEE COMMENTS Last administered on 02/04/17 09:51; Start 01/30/17 at 10:45 Heparin Sodium (Porcine) 3000 unit 3,000 unit 1X ONCE IV Last administered on 01/30/17 17:36; Start 01/30/17 at 18:00; Stop 01/30/17 at 18:01; Status DC Heparin Sodium/ Dextrose 500 ml @ 24 mls/hr CONT PRN IV SEE I/O RECORD Last administered on 02/03/17 05:47; Start 01/30/17 at 18:00 Sodium Chloride (Iv Sodium Chloride 0.9% 1000ml Bag) 1,000 ml @ 50 mls/hr Q20H IV Last administered on 01/31/17 23:30; Start 01/31/17 at 02:45; Stop at 12:13; Status DC Dextrose 25 gm 1X ONCE IV Last administered on 01/31/17 06:05; Start at 06:30; Stop 01/31/17 at 06:31; Status DC Insulin Human Regular (Novolin R Vial) 10 unit 1X ONCE IV Last administered on 01/31/17 06:09; Start 01/31/17 at 06:30; Stop 01/31/17 at 06:31; Status DC Dextrose 25 gm 25 gm 1X ONCE IV Last administered on 01/31/17 09:04; Start at 09:00; Stop 01/31/17 at 09:03; Status DC Sodium Chloride 1,000 ml @ 1,000 mls/hr Q1H PRN IV hypotension; Start 01/31/17 at 09:28; Stop 01/31/17 at 15:27; Status DC Albumin Human (Albuminar) 200 ml @ 200 mls/hr 1X PRN PRN IV Hypotension; Start 01/31/17 at 09:30; Stop 01/31/17 at 15:29; Status DC Acetaminophen (Tylenol) 500 mg 1X PRN PRN PO MILD PAIN / TEMP; Start 01/31/17 at 09:30; Stop 02/01/17 at 09:29; Status DC Diphenhydramine HCl (Benadryl) 25 mg 1X PRN PRN IV ITCHING Last administered on 01/31/17 18:05; Start 01/31/17 at 09:30; Stop 02/01/17 at 09:29; Status DC Diphenhydramine HCl (Benadryl) 25 mg 1X PRN PRN IV ITCHING; Start 01/31/17 at 09:30; Stop 02/01/17 at 09:29; Status DC Info (PHARMACY MONITORING -- do not chart) 1 each PRN DAILY PRN MC SEE COMMENTS ; Start 01/31/17 at 09:30; Status UNV Diphenhydramine HCl (Benadryl) 50 mg PRN Q6HRS PRN IVP ITCHING Last administered on 02/01/17 17:09; Start 02/01/17 at 15:15 Fentanyl Citrate (Fentanyl 2ml Vial) 25 mcg PRN Q4HRS PRN IV MODERATE PAIN; Start 02/01/17 at 15:15 Diphenhydramine HCl (Benadryl) 25 mg 1X PRN PRN IV ITCHING; Start 02/02/17 at 09:30; Stop 02/03/17 at 09:29; Status DC Info (PHARMACY MONITORING -- do not chart) 1 each PRN DAILY PRN MC SEE COMMENTS ; Start 02/02/17 at 09:30; Stop 02/03/17 at 09:05; Status DC Info (PHARMACY MONITORING -- do not chart) 1 each PRN DAILY PRN MC SEE COMMENTS ; Start 02/02/17 at 09:30 Throat Lozenges (Cepacol Sore Throat Lozenge) 1 estelita PRN Q2HRS PRN PO SORE THROAT Last administered on 02/03/17 20:49; Start 02/03/17 at 07:15 Alprazolam (Xanax) 0.25 mg PRN Q6HRS PRN PO ANXIETY / AGITATION, 1ST CHOIC Last administered on 02/03/17 14:15; Start 02/03/17 at 12:15 Alprazolam 0.5 mg 0.5 mg PRN Q6HRS PRN PO ANXIETY / AGITATION, 2ND CHOIC Last administered on 02/04/17 04:54; Start 02/03/17 at 12:30 Vancomycin HCl 250 ml @ 250 mls/hr 1X PREOP ONCE IV ; Start 02/05/17 at 06:00 ; Stop 02/05/17 at 06:59 Ondansetron HCl (Zofran) 4 mg PRN Q6HRS PRN IV Nausea; Start 02/05/17 at 07:00 ; Stop 02/06/17 at 06:59 Fentanyl Citrate (Fentanyl 2ml Vial) 25 mcg PRN Q5MIN PRN IV MILD PAIN; Start 02/05/17 at 07:00; Stop 02/06/17 at 06:59 Fentanyl Citrate (Fentanyl 2ml Vial) 50 mcg PRN Q5MIN PRN IV MODERATE PAIN; Start 02/05/17 at 07:00; Stop 02/06/17 at 06:59 Morphine Sulfate 1 mg 1 mg PRN Q10MIN PRN IV SEVERE PAIN; Start 02/05/17 at 07: 00; Stop 02/06/17 at 06:59 Lactated Ringer's (Iv Lactated Ringers) 1,000 ml @ 0 mls/hr Q0M IV ; Start at 07:00; Stop 02/05/17 at 18:59 Lidocaine HCl 2 ml 1X PRN PRN ID IV START; Start 02/05/17 at 07:00; Stop at 06:59 Hydromorphone HCl (Dilaudid) 0.5 mg PRN Q10MIN PRN IV SEVERE PAIN, Second choice; Start 02/05/17 at 07:00; Stop 02/06/17 at 06:59 Prochlorperazine Edisylate 5 mg 5 mg PACU PRN PRN IV NAUSEA; Start 02/05/17 at 07:00; Stop 02/06/17 at 06:59 Sodium Chloride (Iv Sodium Chloride 0.9% 1000ml Bag) 1,000 ml @ 1,000 mls/hr Q1H PRN IV hypotension; Start 02/04/17 at 09:55; Stop 02/04/17 at 15:54 Info (PHARMACY MONITORING -- do not chart) 1 each PRN DAILY PRN MC SEE COMMENTS ; Start 02/04/17 at 10:00 Active Scripts Active Clopidogrel (Clopidogrel Bisulfate) 75 Mg Tablet 1 Tab PO DAILY Isosorbide Mononitrate Er (Isosorbide Mononitrate) 30 Mg Tab.er.24h 30 Mg PO DAILY Flomax (Tamsulosin Hcl) 0.4 Mg Cap.er.24h 0.4 Mg PO QHS Reported Hydrocodone-Apap 5-325 (Hydrocodone Bit/Acetaminophen) 1 Each Tablet 1 Tab PO PRN Q6HRS PRN Furosemide 80 Mg Tablet 1 Tab PO BID Nephro-Chilo Tablet (Folic Acid/Vitamin B Comp W-C) 0.8 Mg Tablet 1 Tab PO DAILY Paroxetine Hcl 20 Mg Tablet 40 Mg PO DAILY Tums (Calcium Carbonate) 200 Mg Tab.chew 800 Mg PO TIDAC Omeprazole Magnesium 20 Mg Capsule.dr 20 Mg PO DAILY Clonidine Hcl 0.3 Mg Tablet 1 Tab PO DAILY Hydralazine Hcl 100 Mg Tablet 100 Mg PO TID LAST DOSE: 02/24/16 AFTERNOON NEXT DOSE: 02/24/16 BEDTIME Amlodipine Besylate 10 Mg Tablet 10 Mg PO BID LAST DOSE: 02/24/16 AM NEXT DOSE: 02/25/16 AM Xanax (Alprazolam) 0.5 Mg Tablet 0.5 Mg PO Q6HRS PRN LAST DOSE: 02/23/16 BEDTIME NEXT DOSE: 02/24/16 BEDTIME Losartan Potassium 100 Mg Tablet 100 Mg PO HS LAST DOSE: 02/23/16 BEDTIME NEXT DOSE: 02/24/16 BEDTIME Metoprolol Tartrate 100 Mg Tablet 100 Mg PO BID LAST DOSE: 02/24/16 AM NEXT DOSE: 02/24/16 BEDTIME Lillian Chewable (Aspirin) 81 Mg Tab.chew 324 Mg PO DAILY LAST DOSE: 02/24/16 AM NEXT DOSE: 02/25/16 AM Vitals/I & O Vital Sign - Last 24 Hours 02/03/17 02/03/17 02/03/17 02/03/17 10:48 14:29 19:25 20:00 Temp 98.2 98.0 98.0 98.2 98.0 98.0 Pulse 56 56 59 Resp 16 18 B/P 129/62 114/55 125/56 Pulse Ox 98 97 O2 Delivery Room Air Room Air Nasal Cannula Room Air O2 Flow Rate 2.0 02/03/17 02/03/17 02/03/17 02/03/17 20:49 20:50 20:50 20:51 Pulse 60 60 60 Resp 18 B/P 125/56 125/56 125/56 Pulse Ox 97 O2 Delivery Room Air 02/03/17 02/03/17 02/04/17 02/04/17 20:52 22:45 03:50 04:55 Temp 98.0 97.7 98.0 97.7 Pulse 60 61 65 Resp 20 20 22 B/P 125/56 106/40 113/57 Pulse Ox 96 92 92 O2 Delivery Nasal Cannula Nasal Cannula Room Air O2 Flow Rate 2.0 2.0 2.0 02/04/17 02/04/17 02/04/17 06:00 07:21 10:05 Temp 97.8 98.0 97.8 98.0 Pulse 61 62 Resp 20 20 20 B/P 133/68 127/59 Pulse Ox 92 96 96 O2 Delivery Nasal Cannula Nasal Cannula Nasal Cannula O2 Flow Rate 2.0 2.0 2.0 Intake and Output 02/03/17 02/03/17 02/04/17 15:00 23:00 07:00 Intake Total 1388 ml 600 ml Balance 1388 ml 600 ml Nutrition Consultation Dietary Evaluation: Recommendations by RD: Increase Calorie Intake Comments: Tato breeztawnya TID - 250kcal and 9g protein per serving Expected Outcomes/Goals: diet advancement Malnutrition Findings: Weight Status: Overweight ESTEFANÍA MANZO MD Feb 04, 2017 10:34
[2017-02-04] MEDS ORDERED: BENZOCAINE/MENTHOL LOZENGE. PO PRN (11:00)
--- NOTE | 2017-02-04 11:21 | PDOC ---
PROGRESS NOTES Chief Complaint Chief Complaint Pancreatitis ACS ASSESSMENT AND PLAN: 1. Pancreatitis: recurrent panc w/o EtOH hx, and s/p CCY. resolved 2. STEMI: EKG changes (incl brief afib). cath on 01/[address] Kiran: multivessel dz. CABG planned for , 02/05 (hold plavix x5d). cont cardiac meds 3. ESRD: on HD, Dr Escobar following 4. Anemia: stable around 10. 2/2 ESRD. EPO, iron with HD as indicated 5. Anxiety: Xanax PRN, .25-.5 PRN 6. AMS : resolved (benzo induced) 7. Sore throat: prob viral, but r/o Strep. cepacol 8. Prophylaxis: PPI History of Present Illness History of Present Illness Out having HD Planned for CABg eddie Some sore throat per other notes PLAN Cepacol prn CABg eddie Vitals Vitals Vital Signs Date Time Temp Pulse Resp B/P Pulse Ox O2 Delivery O2 Flow Rate FiO2 02/04/17 10:05 98.0 62 20 127/59 96 Nasal Cannula 2.0 98.0 Physical Exam General: Alert, Oriented X3, Cooperative, No acute distress Heart: Normal S1, Normal S2, Other (irreg) Lungs: Clear Abdomen: Normal bowel sounds, Soft, No tenderness Skin: No rashes Labs LABS Laboratory Tests Test 02/03/17 12:17 02/04/17 04:45 Group A Streptococcus Rapid Negative (NEGATIVE) White Blood Count 7.2x10^3/uL (4.0-11.0) Red Blood Count 2.91x10^6/uL (4.30-5.70) Hemoglobin 9.1g/dL (13.0-17.5) Hematocrit 26.9% (39.0-53.0) Mean Corpuscular Volume 93fL (79-100) Mean Corpuscular Hemoglobin 31pg (25-35) Mean Corpuscular Hemoglobin Concent 34g/dL (31-37) Red Cell Distribution Width 13.9% (11.5-14.5) Platelet Count 169x10^3/uL (140-400) Neutrophils (%) (Auto) 77% (31-73) Lymphocytes (%) (Auto) 9% (24-48) Monocytes (%) (Auto) 12% (0-9) Eosinophils (%) (Auto) 2% (0-3) Basophils (%) (Auto) 1% (0-3) Neutrophils # (Auto) 5.6x10^3uL (1.8-7.7) Lymphocytes # (Auto) 0.6x10^3/uL (1.0-4.8) Monocytes # (Auto) 0.8x10^3/uL (0.0-1.1) Eosinophils # (Auto) 0.1x10^3/uL (0.0-0.7) Basophils # (Auto) 0.1x10^3/uL (0.0-0.2) Sodium Level 140mmol/L (136-145) Potassium Level 4.5mmol/L (3.5-5.1) Chloride Level 100mmol/L (98-107) Carbon Dioxide Level 28mmol/L (21-32) Anion Gap 12 (6-14) Blood Urea Nitrogen 34mg/dL (8-26) Creatinine 8.9mg/dL (0.7-1.3) Estimated GFR (Cockcroft-Gault) 6.1 Glucose Level 100mg/dL (70-99) Calcium Level 7.7mg/dL (8.5-10.1) Review of Systems Review of Systems sore throat, no CP, no SOA Assessment and Plan Assessmemt and Plan Problems Medical Problems: (1) Flank pain Status: Acute (2) Pancreatitis Status: Acute Problems: Comment Review of Relevant I have reviewed the following items dionte (where applicable) has been applied. Labs Laboratory Tests Test 02/03/17 04:30 02/03/17 12:17 02/04/17 04:45 White Blood Count 5.3x10^3/uL (4.0-11.0) 7.2x10^3/uL (4.0-11.0) Red Blood Count 2.93x10^6/uL (4.30-5.70) 2.91x10^6/uL (4.30-5.70) Hemoglobin 9.1g/dL (13.0-17.5) 9.1g/dL (13.0-17.5) Hematocrit 27.0% (39.0-53.0) 26.9% (39.0-53.0) Mean Corpuscular Volume 92fL (79-100) 93fL (79-100) Mean Corpuscular Hemoglobin 31pg (25-35) 31pg (25-35) Mean Corpuscular Hemoglobin Concent 34g/dL (31-37) 34g/dL (31-37) Red Cell Distribution Width 13.9% (11.5-14.5) 13.9% (11.5-14.5) Platelet Count 171x10^3/uL (140-400) 169x10^3/uL (140-400) Neutrophils (%) (Auto) 71% (31-73) 77% (31-73) Lymphocytes (%) (Auto) 12% (24-48) 9% (24-48) Monocytes (%) (Auto) 13% (0-9) 12% (0-9) Eosinophils (%) (Auto) 3% (0-3) 2% (0-3) Basophils (%) (Auto) 1% (0-3) 1% (0-3) Neutrophils # (Auto) 3.8x10^3uL (1.8-7.7) 5.6x10^3uL (1.8-7.7) Lymphocytes # (Auto) 0.6x10^3/uL (1.0-4.8) 0.6x10^3/uL (1.0-4.8) Monocytes # (Auto) 0.7x10^3/uL (0.0-1.1) 0.8x10^3/uL (0.0-1.1) Eosinophils # (Auto) 0.1x10^3/uL (0.0-0.7) 0.1x10^3/uL (0.0-0.7) Basophils # (Auto) 0.0x10^3/uL (0.0-0.2) 0.1x10^3/uL (0.0-0.2) Heparin Anti-Xa Act, Unfractionated 0.23IU/mL (0.30-0.70) Sodium Level 143mmol/L (136-145) 140mmol/L (136-145) Potassium Level 4.3mmol/L (3.5-5.1) 4.5mmol/L (3.5-5.1) Chloride Level 102mmol/L (98-107) 100mmol/L (98-107) Carbon Dioxide Level 30mmol/L (21-32) 28mmol/L (21-32) Anion Gap 11 (6-14) 12 (6-14) Blood Urea Nitrogen 27mg/dL (8-26) 34mg/dL (8-26) Creatinine 6.8mg/dL (0.7-1.3) 8.9mg/dL (0.7-1.3) Estimated GFR (Cockcroft-Gault) 8.3 6.1 Glucose Level 85mg/dL (70-99) 100mg/dL (70-99) Calcium Level 7.7mg/dL (8.5-10.1) 7.7mg/dL (8.5-10.1) Group A Streptococcus Rapid Negative (NEGATIVE) Laboratory Tests Test 02/03/17 12:17 02/04/17 04:45 Group A Streptococcus Rapid Negative (NEGATIVE) White Blood Count 7.2x10^3/uL (4.0-11.0) Red Blood Count 2.91x10^6/uL (4.30-5.70) Hemoglobin 9.1g/dL (13.0-17.5) Hematocrit 26.9% (39.0-53.0) Mean Corpuscular Volume 93fL (79-100) Mean Corpuscular Hemoglobin 31pg (25-35) Mean Corpuscular Hemoglobin Concent 34g/dL (31-37) Red Cell Distribution Width 13.9% (11.5-14.5) Platelet Count 169x10^3/uL (140-400) Neutrophils (%) (Auto) 77% (31-73) Lymphocytes (%) (Auto) 9% (24-48) Monocytes (%) (Auto) 12% (0-9) Eosinophils (%) (Auto) 2% (0-3) Basophils (%) (Auto) 1% (0-3) Neutrophils # (Auto) 5.6x10^3uL (1.8-7.7) Lymphocytes # (Auto) 0.6x10^3/uL (1.0-4.8) Monocytes # (Auto) 0.8x10^3/uL (0.0-1.1) Eosinophils # (Auto) 0.1x10^3/uL (0.0-0.7) Basophils # (Auto) 0.1x10^3/uL (0.0-0.2) Sodium Level 140mmol/L (136-145) Potassium Level 4.5mmol/L (3.5-5.1) Chloride Level 100mmol/L (98-107) Carbon Dioxide Level 28mmol/L (21-32) Anion Gap 12 (6-14) Blood Urea Nitrogen 34mg/dL (8-26) Creatinine 8.9mg/dL (0.7-1.3) Estimated GFR (Cockcroft-Gault) 6.1 Glucose Level 100mg/dL (70-99) Calcium Level 7.7mg/dL (8.5-10.1) Medications Current Medications Hydromorphone HCl (Dilaudid) 1 mg 1X ONCE IV Last administered on 01/28/17 23 :57; Start 01/28/17 at 23:30; Stop 01/28/17 at 23:31; Status DC Ondansetron HCl 4 mg 4 mg 1X ONCE IV Last administered on 01/28/17 23:57; Start 01/28/17 at 23:30; Stop 01/28/17 at 23:31; Status DC Sodium Chloride (Iv Sodium Chloride 0.9% 500ml Bag) 500 ml @ 0 mls/hr 1X ONCE IV Last administered on 01/28/17 23:39; Start 01/28/17 at 23:30; Stop at 23:31; Status DC Diphenhydramine HCl (Benadryl) 50 mg 1X ONCE IVP Last administered on 00:29; Start 01/29/17 at 00:30; Stop 01/29/17 at 00:31; Status DC Diphenhydramine HCl (Benadryl) 50 mg STK-MED ONCE .ROUTE ; Start 01/29/17 at 00: 26; Stop 01/29/17 at 00:27; Status DC Morphine Sulfate 4 mg 1X ONCE IV Last administered on 01/29/17 03:55; Start 01/29/17 at 02:15; Stop 01/29/17 at 02:16; Status DC Ondansetron HCl (Zofran) 4 mg PRN Q8HRS PRN IV NAUSEA/VOMITING; Start 01/29/17 at 03:00; Stop 01/30/17 at 02:59; Status DC Morphine Sulfate 4 mg 4 mg PRN Q2HR PRN IV PAIN Last administered on 01/29/17 09:59; Start 01/29/17 at 03:00; Stop 01/29/17 at 11:47; Status DC Sodium Chloride (Iv Sodium Chloride 0.9% 1000ml Bag) 1,000 ml @ 50 mls/hr Q20H IV Last administered on 01/30/17 07:28; Start 01/29/17 at 02:12; Stop at 02:11; Status DC Alprazolam (Xanax) 0.5 mg PRN Q6HRS PRN PO ANXIETY / AGITATION Last administered on 02/03/17 07:45; Start 01/29/17 at 11:30; Stop 02/03/17 at 12:13 ; Status DC Amlodipine Besylate (Norvasc) 10 mg BID PO Last administered on 02/03/17 20:50 ; Start 01/29/17 at 12:00 Aspirin (Children'S Aspirin) 324 mg DAILY PO ; Start 01/29/17 at 12:00; Stop at 18:32; Status DC Calcium Carbonate/ Glycine (Tums) 800 mg TIDAC PO Last administered on 17:06; Start 01/29/17 at 11:30 Clonidine HCl (Catapres) 0.3 mg DAILY PO Last administered on 02/03/17 07:41; Start 01/30/17 at 09:00 Clopidogrel Bisulfate (Plavix) 75 mg DAILY PO ; Start 01/29/17 at 12:00; Stop at 09:45; Status DC Vitamin B Complex/ Vitamin C (Nephro-Chilo) 1 tab DAILY PO Last administered on 02/03/17 07:40; Start 01/29/17 at 12:00 Furosemide (Lasix) 80 mg [id number] PO Last administered on 02/03/17 14:14; Start 01/29/17 at 14:00 Acetaminophen/ Hydrocodone Bitart (Lortab 5/325) 1 tab PRN Q6HRS PRN PO PAIN; Start 01/29/17 at 11:30; Stop 01/29/17 at 18:58; Status DC Isosorbide Mononitrate (Imdur) 30 mg DAILY PO Last administered on 02/03/17 07 :41; Start 01/29/17 at 12:00 Paroxetine HCl (Paxil) 40 mg DAILY PO Last administered on 02/03/17 07:44; Start 01/29/17 at 12:00 Tamsulosin HCl (Flomax) 0.4 mg QHS PO Last administered on 02/03/17 20:49; Start 01/29/17 at 21:00 Hydralazine HCl (Apresoline) 100 mg TID PO Last administered on 02/03/17 20:52 ; Start 01/29/17 at 14:00 Losartan Potassium (Cozaar) 100 mg QHS PO Last administered on 02/03/17 20:49 ; Start 01/29/17 at 21:00 Metoprolol Tartrate (Lopressor) 100 mg BID PO Last administered on 02/03/17 20 :51; Start 01/29/17 at 12:00 Pantoprazole Sodium (Protonix) 40 mg DAILYAC PO Last administered on 02/03/17 07:42; Start 01/29/17 at 12:00 Darbepoetin Percy (Aranesp) 60 mcg [id number] SQ Last administered on 02/02/17 21 :15; Start 02/02/17 at 21:00 Morphine Sulfate 6 mg 6 mg PRN Q2HR PRN IV PAIN Last administered on 01/30/17 19:22; Start 01/29/17 at 11:45; Stop 02/01/17 at 15:20; Status DC Sodium Chloride (Iv Sodium Chloride 0.9% 1000ml Bag) 1,000 ml @ 1,000 mls/hr Q1H PRN IV hypotension; Start 01/29/17 at 12:55; Stop 01/29/17 at 18:54; Status DC Diphenhydramine HCl (Benadryl) 25 mg 1X PRN PRN IV ITCHING Last administered on 01/29/17 19:12; Start 01/29/17 at 13:00; Stop 01/30/17 at 12:59; Status DC Diphenhydramine HCl (Benadryl) 25 mg 1X PRN PRN IV ITCHING Last administered on 01/29/17t 13:16; Start 01/29/17 at 13:00; Stop 01/30/17 at 12:59; Status DC Info (PHARMACY MONITORING -- do not chart) 1 each PRN DAILY PRN MC SEE COMMENTS ; Start 01/29/17 at 13:00; Status UNV Info (PHARMACY MONITORING -- do not chart) 1 each PRN DAILY PRN MC SEE COMMENTS ; Start 01/29/17 at 13:00; Stop 02/03/17 at 09:04; Status DC Nitroglycerin (Nitrostat) 0.4 mg STK-MED ONCE SL ; Start 01/29/17 at 16:55; Stop 01/29/17 at 16:56; Status DC Heparin Sodium (Porcine) 4000 unit 4,000 unit 1X ONCE IV Last administered on 01/29/17t 17:37; Start 01/29/17 at 17:30; Stop 01/29/17 at 17:31; Status DC Heparin Sodium/ Sodium Chloride 500 ml @ As Directed STK-MED ONCE .ROUTE ; Start 01/29/17 at 17:54; Stop 01/29/17 at 17:55; Status DC Lidocaine HCl 20 ml STK-MED ONCE .ROUTE ; Start 01/29/17 at 17:54; Stop at 17:55; Status DC Iodixanol (Visipaque 320) 100 ml STK-MED ONCE .ROUTE ; Start 01/29/17 at 17:54; Stop 01/29/17 at 17:55; Status DC Metoprolol Tartrate (Lopressor) 5 mg STK-MED ONCE .ROUTE ; Start 01/29/17 at 18: 05; Stop 01/29/17 at 18:06; Status DC Fentanyl Citrate (Fentanyl 2ml Vial) 100 mcg STK-MED ONCE .ROUTE ; Start at 18:05; Stop 01/29/17 at 18:06; Status DC Midazolam HCl 2 mg 2 mg STK-MED ONCE .ROUTE ; Start 01/29/17 at 18:05; Stop at 18:06; Status DC Heparin Sodium/ Dextrose 500 ml @ As Directed STK-MED ONCE IV ; Start 01/29/17 at 18:18; Stop 01/29/17 at 18:19; Status DC Heparin Sodium (Porcine) 10,000 unit STK-MED ONCE .ROUTE ; Start 01/29/17 at 18: 18; Stop 01/29/17 at 18:19; Status DC Metoprolol Tartrate (Lopressor) 5 mg STK-MED ONCE .ROUTE ; Start 01/29/17 at 18: 25; Stop 01/29/17 at 18:26; Status DC Heparin Sodium/ Sodium Chloride 1,000 unit 1X ONCE IART Last administered on 18:51; Start 01/29/17 at 18:45; Stop 01/29/17 at 18:53; Status DC Heparin Sodium/ Sodium Chloride 1,000 unit 1X ONCE IART Last administered on 18:51; Start 01/29/17 at 18:45; Stop 01/29/17 at 18:53; Status DC Midazolam HCl (Versed) 1 mg 1X ONCE IV Last administered on 01/29/17 18:53; Start 01/29/17 at 18:45; Stop 01/29/17 at 18:53; Status DC Fentanyl Citrate (Fentanyl 2ml Vial) 50 mcg 1X ONCE IV Last administered on 18:53; Start 01/29/17 at 18:45; Stop 01/29/17 at 18:53; Status DC Iodixanol (Visipaque 320) 105 ml 1X ONCE IART Last administered on 01/29/17 18:52; Start 01/29/17 at 18:45; Stop 01/29/17 at 18:53; Status DC Heparin Sodium (Porcine) 4000 unit 4,000 unit 1X ONCE IV Last administered on 01/29/17 18:53; Start 01/29/17 at 18:45; Stop 01/29/17 at 18:53; Status DC Heparin Sodium/ Dextrose 500 ml @ 20 mls/hr CONT PRN IV SEE I/O RECORD; Start 01/29/17 at 18:24; Stop 01/30/17 at 14:01; Status DC Metoprolol Tartrate (Lopressor) 10 mg 1X ONCE IVP Last administered on 18:52; Start 01/29/17 at 18:45; Stop 01/29/17 at 18:53; Status DC Lidocaine HCl 10 ml 1X ONCE IJ Last administered on 01/29/17 18:52; Start at 18:45; Stop 01/29/17 at 18:53; Status DC Sodium Chloride (Normal Saline Flush) 3 ml QSHIFT PRN IV AFTER MEDS AND BLOOD DRAWS; Start 01/29/17 at 18:45 Docusate Sodium (Colace) 100 mg BID PO Last administered on 02/03/17 20:49; Start 01/29/17 at 21:00 Fentanyl Citrate (Fentanyl 2ml Vial) 50 mcg PRN Q1HR PRN IV SEVERE PAIN Last administered on 01/29/17 23:25; Start 01/29/17 at 18:45 Cyclobenzaprine HCl (Flexeril) 10 mg PRN TID PRN PO MUSCLE SPASMS Last administered on 01/30/17 05:22; Start 01/29/17 at 18:45 Ondansetron HCl (Zofran) 4 mg PRN Q6HRS PRN IV NAUSEA/VOMITING; Start 01/29/17 at 18:45 Nitroglycerin (Nitrostat) 0.4 mg PRN Q5MIN PRN SL CHEST PAIN; Start 01/29/17 at 18:45 Acetaminophen/ Hydrocodone Bitart (Lortab 5/325) 1 tab PRN Q4HRS PRN PO MILD PAIN Last administered on 02/04/17 04:55; Start 01/29/17 at 18:45 Diltiazem HCl 5 mg 5 mg 1X ONCE IVP Last administered on 01/29/17 19:23; Start 01/29/17 at 19:15; Stop 01/29/17 at 19:18; Status DC Diltiazem HCl/ Dextrose (Cardizem) 125 ml @ 0 mls/hr CONT PRN IV SEE I/O RECORD ; Start 01/29/17 at 19:15; Stop 02/03/17 at 12:13; Status DC Diphenhydramine HCl (Benadryl) 50 mg PRN Q8HRS PRN IVP ITCHING Last administered on 02/02/17 09:41; Start 01/29/17 at 19:15; Stop 02/03/17 at 09:05 ; Status DC Nitroglycerin (Nitrostat) 0.4 mg STK-MED ONCE SL ; Start 01/29/17 at 17:00; Stop 01/30/17 at 08:02; Status DC Info (Anti-Coagulation Monitoring By Pharmacy) 1 each PRN DAILY PRN MC SEE COMMENTS Last administered on 02/04/17 09:51; Start 01/30/17 at 10:45 Heparin Sodium (Porcine) 3000 unit 3,000 unit 1X ONCE IV Last administered on 01/30/17 17:36; Start 01/30/17 at 18:00; Stop 01/30/17 at 18:01; Status DC Heparin Sodium/ Dextrose 500 ml @ 24 mls/hr CONT PRN IV SEE I/O RECORD Last administered on 02/03/17 05:47; Start 01/30/17 at 18:00 Sodium Chloride (Iv Sodium Chloride 0.9% 1000ml Bag) 1,000 ml @ 50 mls/hr Q20H IV Last administered on 01/31/17 23:30; Start 01/31/17 at 02:45; Stop at 12:13; Status DC Dextrose 25 gm 1X ONCE IV Last administered on 01/31/17 06:05; Start at 06:30; Stop 01/31/17 at 06:31; Status DC Insulin Human Regular (Novolin R Vial) 10 unit 1X ONCE IV Last administered on 01/31/17 06:09; Start 01/31/17 at 06:30; Stop 01/31/17 at 06:31; Status DC Dextrose 25 gm 25 gm 1X ONCE IV Last administered on 01/31/17 09:04; Start at 09:00; Stop 01/31/17 at 09:03; Status DC Sodium Chloride 1,000 ml @ 1,000 mls/hr Q1H PRN IV hypotension; Start 01/31/17 at 09:28; Stop 01/31/17 at 15:27; Status DC Albumin Human (Albuminar) 200 ml @ 200 mls/hr 1X PRN PRN IV Hypotension; Start 01/31/17 at 09:30; Stop 01/31/17 at 15:29; Status DC Acetaminophen (Tylenol) 500 mg 1X PRN PRN PO MILD PAIN / TEMP; Start 01/31/17 at 09:30; Stop 02/01/17 at 09:29; Status DC Diphenhydramine HCl (Benadryl) 25 mg 1X PRN PRN IV ITCHING Last administered on 01/31/17 18:05; Start 01/31/17 at 09:30; Stop 02/01/17 at 09:29; Status DC Diphenhydramine HCl (Benadryl) 25 mg 1X PRN PRN IV ITCHING; Start 01/31/17 at 09:30; Stop 02/01/17 at 09:29; Status DC Info (PHARMACY MONITORING -- do not chart) 1 each PRN DAILY PRN MC SEE COMMENTS ; Start 01/31/17 at 09:30; Status UNV Diphenhydramine HCl (Benadryl) 50 mg PRN Q6HRS PRN IVP ITCHING Last administered on 02/01/17 17:09; Start 02/01/17 at 15:15 Fentanyl Citrate (Fentanyl 2ml Vial) 25 mcg PRN Q4HRS PRN IV MODERATE PAIN; Start 02/01/17 at 15:15 Diphenhydramine HCl (Benadryl) 25 mg 1X PRN PRN IV ITCHING; Start 02/02/17 at 09:30; Stop 02/03/17 at 09:29; Status DC Info (PHARMACY MONITORING -- do not chart) 1 each PRN DAILY PRN MC SEE COMMENTS ; Start 02/02/17 at 09:30; Stop 02/03/17 at 09:05; Status DC Info (PHARMACY MONITORING -- do not chart) 1 each PRN DAILY PRN MC SEE COMMENTS ; Start 02/02/17 at 09:30 Throat Lozenges (Cepacol Sore Throat Lozenge) 1 estelita PRN Q2HRS PRN PO SORE THROAT Last administered on 02/03/17 20:49; Start 02/03/17 at 07:15 Alprazolam (Xanax) 0.25 mg PRN Q6HRS PRN PO ANXIETY / AGITATION, 1ST CHOIC Last administered on 02/03/17 14:15; Start 02/03/17 at 12:15 Alprazolam 0.5 mg 0.5 mg PRN Q6HRS PRN PO ANXIETY / AGITATION, 2ND CHOIC Last administered on 02/04/17 04:54; Start 02/03/17 at 12:30 Vancomycin HCl 250 ml @ 250 mls/hr 1X PREOP ONCE IV ; Start 02/05/17 at 06:00 ; Stop 02/05/17 at 06:59 Ondansetron HCl (Zofran) 4 mg PRN Q6HRS PRN IV Nausea; Start 02/05/17 at 07:00 ; Stop 02/06/17 at 06:59 Fentanyl Citrate (Fentanyl 2ml Vial) 25 mcg PRN Q5MIN PRN IV MILD PAIN; Start 02/05/17 at 07:00; Stop 02/06/17 at 06:59 Fentanyl Citrate (Fentanyl 2ml Vial) 50 mcg PRN Q5MIN PRN IV MODERATE PAIN; Start 02/05/17 at 07:00; Stop 02/06/17 at 06:59 Morphine Sulfate 1 mg 1 mg PRN Q10MIN PRN IV SEVERE PAIN; Start 02/05/17 at 07: 00; Stop 02/06/17 at 06:59 Lactated Ringer's (Iv Lactated Ringers) 1,000 ml @ 0 mls/hr Q0M IV ; Start at 07:00; Stop 02/05/17 at 18:59 Lidocaine HCl 2 ml 1X PRN PRN ID IV START; Start 02/05/17 at 07:00; Stop at 06:59 Hydromorphone HCl (Dilaudid) 0.5 mg PRN Q10MIN PRN IV SEVERE PAIN, Second choice; Start 02/05/17 at 07:00; Stop 02/06/17 at 06:59 Prochlorperazine Edisylate 5 mg 5 mg PACU PRN PRN IV NAUSEA; Start 02/05/17 at 07:00; Stop 02/06/17 at 06:59 Sodium Chloride (Iv Sodium Chloride 0.9% 1000ml Bag) 1,000 ml @ 1,000 mls/hr Q1H PRN IV hypotension; Start 02/04/17 at 09:55; Stop 02/04/17 at 15:54 Info (PHARMACY MONITORING -- do not chart) 1 each PRN DAILY PRN MC SEE COMMENTS ; Start 02/04/17 at 10:00 Throat Lozenges (Cepacol Sore Throat Lozenge) 1 estelita PRN Q2HRS PRN PO SORE THROAT; Start 02/04/17 at 11:00 Active Scripts Active Clopidogrel (Clopidogrel Bisulfate) 75 Mg Tablet 1 Tab PO DAILY Isosorbide Mononitrate Er (Isosorbide Mononitrate) 30 Mg Tab.er.24h 30 Mg PO DAILY Flomax (Tamsulosin Hcl) 0.4 Mg Cap.er.24h 0.4 Mg PO QHS Reported Hydrocodone-Apap 5-325 (Hydrocodone Bit/Acetaminophen) 1 Each Tablet 1 Tab PO PRN Q6HRS PRN Furosemide 80 Mg Tablet 1 Tab PO BID Nephro-Chilo Tablet (Folic Acid/Vitamin B Comp W-C) 0.8 Mg Tablet 1 Tab PO DAILY Paroxetine Hcl 20 Mg Tablet 40 Mg PO DAILY Tums (Calcium Carbonate) 200 Mg Tab.chew 800 Mg PO TIDAC Omeprazole Magnesium 20 Mg Capsule.dr 20 Mg PO DAILY Clonidine Hcl 0.3 Mg Tablet 1 Tab PO DAILY Hydralazine Hcl 100 Mg Tablet 100 Mg PO TID LAST DOSE: 02/24/16 AFTERNOON NEXT DOSE: 02/24/16 BEDTIME Amlodipine Besylate 10 Mg Tablet 10 Mg PO BID LAST DOSE: 02/24/16 AM NEXT DOSE: 02/25/16 AM Xanax (Alprazolam) 0.5 Mg Tablet 0.5 Mg PO Q6HRS PRN LAST DOSE: 02/23/16 BEDTIME NEXT DOSE: 02/24/16 BEDTIME Losartan Potassium 100 Mg Tablet 100 Mg PO HS LAST DOSE: 02/23/16 BEDTIME NEXT DOSE: 02/24/16 BEDTIME Metoprolol Tartrate 100 Mg Tablet 100 Mg PO BID LAST DOSE: 02/24/16 AM NEXT DOSE: 02/24/16 BEDTIME Lillian Chewable (Aspirin) 81 Mg Tab.chew 324 Mg PO DAILY LAST DOSE: 02/24/16 AM NEXT DOSE: 02/25/16 AM Vitals/I & O Vital Sign - Last 24 Hours 02/03/17 02/03/17 02/03/17 02/03/17 14:29 19:25 20:00 20:49 Temp 98.0 98.0 98.0 98.0 Pulse 56 59 60 Resp 18 B/P 114/55 125/56 125/56 Pulse Ox 97 O2 Delivery Room Air Nasal Cannula Room Air O2 Flow Rate 2.0 02/03/17 02/03/17 02/03/17 02/03/17 20:50 20:50 20:51 20:52 Pulse 60 60 60 Resp 18 B/P 125/56 125/56 125/56 Pulse Ox 97 O2 Delivery Room Air 02/03/17 02/04/17 02/04/17 02/04/17 22:45 03:50 04:55 06:00 Temp 98.0 97.7 98.0 97.7 Pulse 61 65 Resp 20 20 22 20 B/P 106/40 113/57 Pulse Ox 96 92 92 92 O2 Delivery Nasal Cannula Nasal Cannula Room Air Nasal Cannula O2 Flow Rate 2.0 2.0 2.0 2.0 02/04/17 02/04/17 02/04/17 07:21 08:00 10:05 Temp 97.8 98.0 97.8 98.0 Pulse 61 62 Resp 20 20 B/P 133/68 127/59 Pulse Ox 96 96 O2 Delivery Nasal Cannula Room Air Nasal Cannula O2 Flow Rate 2.0 2.0 Intake and Output 02/03/17 02/03/17 02/04/17 15:00 23:00 07:00 Intake Total 1388 ml 600 ml Balance 1388 ml 600 ml Nutrition Consultation Dietary Evaluation: Recommendations by RD: Increase Calorie Intake Comments: Discussed typical nutrition care plan for CABG surgery Continue to encourage diet compliance to the cardiac/renal diets D/C the boost breeze-pt diet advanced, meeting nutrition needs via PO intake Expected Outcomes/Goals: meet 75% estimated nutrition needs Malnutrition Findings: Reduced Investment Counselor Strength: N/A Weight Status: Overweight ARSALAN ESCAMILLA MD Feb 04, 2017 11:21
[2017-02-04] MEDS ORDERED: MAGNESIUM SULFATE 2GM 50 ML IV PRN (11:30)
--- NOTE | 2017-02-04 11:33 | PDOC ---
Dialysis Progress Note Dialysis Note Dialysis Note Seen on Hemodialysis, tolerating treatment Well Vitals on Hemodialysis: 137/66 63 afeb 16 General Appearance: Awake: Alert Oriented x 3 Neck: No JVD or JVP Chest: CTA Oliver Heart: S1 S2 Abdomen - Soft NTND Extremities - No Edema ESRD : Dialysis as below F 180 NR 3.5 Hrs 3 K 2.5 Ca 140 Na 35 HC03 Qb 350 + Qd 500+ Heparin gtt Uf 4-5 Kgs or to dry weight as tolerated may give 25-50 gms of 25% Albumin if needed to maintain Hemodynamic stability Treatment plan reviewed and discussed with combination saw operator Vitals Vital Signs Vital Signs Date Time Temp Pulse Resp B/P Pulse Ox O2 Delivery O2 Flow Rate FiO2 02/04/17 10:05 98.0 62 20 127/59 96 Nasal Cannula 2.0 98.0 Labs Last Labs Laboratory Tests Test 02/03/17 04:30 02/03/17 12:17 02/04/17 04:45 White Blood Count 5.3x10^3/uL (4.0-11.0) 7.2x10^3/uL (4.0-11.0) Red Blood Count 2.93x10^6/uL (4.30-5.70) 2.91x10^6/uL (4.30-5.70) Hemoglobin 9.1g/dL (13.0-17.5) 9.1g/dL (13.0-17.5) Hematocrit 27.0% (39.0-53.0) 26.9% (39.0-53.0) Mean Corpuscular Volume 92fL (79-100) 93fL (79-100) Mean Corpuscular Hemoglobin 31pg (25-35) 31pg (25-35) Mean Corpuscular Hemoglobin Concent 34g/dL (31-37) 34g/dL (31-37) Red Cell Distribution Width 13.9% (11.5-14.5) 13.9% (11.5-14.5) Platelet Count 171x10^3/uL (140-400) 169x10^3/uL (140-400) Neutrophils (%) (Auto) 71% (31-73) 77% (31-73) Lymphocytes (%) (Auto) 12% (24-48) 9% (24-48) Monocytes (%) (Auto) 13% (0-9) 12% (0-9) Eosinophils (%) (Auto) 3% (0-3) 2% (0-3) Basophils (%) (Auto) 1% (0-3) 1% (0-3) Neutrophils # (Auto) 3.8x10^3uL (1.8-7.7) 5.6x10^3uL (1.8-7.7) Lymphocytes # (Auto) 0.6x10^3/uL (1.0-4.8) 0.6x10^3/uL (1.0-4.8) Monocytes # (Auto) 0.7x10^3/uL (0.0-1.1) 0.8x10^3/uL (0.0-1.1) Eosinophils # (Auto) 0.1x10^3/uL (0.0-0.7) 0.1x10^3/uL (0.0-0.7) Basophils # (Auto) 0.0x10^3/uL (0.0-0.2) 0.1x10^3/uL (0.0-0.2) Heparin Anti-Xa Act, Unfractionated 0.23IU/mL (0.30-0.70) Sodium Level 143mmol/L (136-145) 140mmol/L (136-145) Potassium Level 4.3mmol/L (3.5-5.1) 4.5mmol/L (3.5-5.1) Chloride Level 102mmol/L (98-107) 100mmol/L (98-107) Carbon Dioxide Level 30mmol/L (21-32) 28mmol/L (21-32) Anion Gap 11 (6-14) 12 (6-14) Blood Urea Nitrogen 27mg/dL (8-26) 34mg/dL (8-26) Creatinine 6.8mg/dL (0.7-1.3) 8.9mg/dL (0.7-1.3) Estimated GFR (Cockcroft-Gault) 8.3 6.1 Glucose Level 85mg/dL (70-99) 100mg/dL (70-99) Calcium Level 7.7mg/dL (8.5-10.1) 7.7mg/dL (8.5-10.1) Group A Streptococcus Rapid Negative (NEGATIVE) Laboratory Tests Test 02/03/17 12:17 02/04/17 04:45 Group A Streptococcus Rapid Negative (NEGATIVE) White Blood Count 7.2x10^3/uL (4.0-11.0) Red Blood Count 2.91x10^6/uL (4.30-5.70) Hemoglobin 9.1g/dL (13.0-17.5) Hematocrit 26.9% (39.0-53.0) Mean Corpuscular Volume 93fL (79-100) Mean Corpuscular Hemoglobin 31pg (25-35) Mean Corpuscular Hemoglobin Concent 34g/dL (31-37) Red Cell Distribution Width 13.9% (11.5-14.5) Platelet Count 169x10^3/uL (140-400) Neutrophils (%) (Auto) 77% (31-73) Lymphocytes (%) (Auto) 9% (24-48) Monocytes (%) (Auto) 12% (0-9) Eosinophils (%) (Auto) 2% (0-3) Basophils (%) (Auto) 1% (0-3) Neutrophils # (Auto) 5.6x10^3uL (1.8-7.7) Lymphocytes # (Auto) 0.6x10^3/uL (1.0-4.8) Monocytes # (Auto) 0.8x10^3/uL (0.0-1.1) Eosinophils # (Auto) 0.1x10^3/uL (0.0-0.7) Basophils # (Auto) 0.1x10^3/uL (0.0-0.2) Sodium Level 140mmol/L (136-145) Potassium Level 4.5mmol/L (3.5-5.1) Chloride Level 100mmol/L (98-107) Carbon Dioxide Level 28mmol/L (21-32) Anion Gap 12 (6-14) Blood Urea Nitrogen 34mg/dL (8-26) Creatinine 8.9mg/dL (0.7-1.3) Estimated GFR (Cockcroft-Gault) 6.1 Glucose Level 100mg/dL (70-99) Calcium Level 7.7mg/dL (8.5-10.1) Assessment Assessment Problems Medical Problems: (1) Flank pain Status: Acute (2) Pancreatitis Status: Acute Problems: Plan Plan of Care Problems Medical Problems: (1) Flank pain Status: Acute (2) Pancreatitis Status: Acute TING GARDUNO MD Feb 04, 2017 11:33
[2017-02-04] MEDS: CLONIDINE HCL 0.3 MG TABLET PO SCH (14:59)
[2017-02-04] MEDS: FOLIC/VIT B COMP W-C (RENAL) TABLET. PO SCH (14:59)
[2017-02-04] MEDS: PAROXETINE 20 MG TABLET. PO SCH (15:00)
[2017-02-04] MEDS: PANTOPRAZOLE 40 MG TABLET. PO SCH (15:01)
[2017-02-04] MEDS: ISOSORBIDE MONONITRATE ER 30 MG TAB.ER.24H PO SCH (15:01)
[2017-02-04] MEDS: AMLODIPINE BESYLATE 10 MG TABLET PO SCH ×2 (15:02→20:55)
[2017-02-04] MEDS: METOPROLOL TART IMMED RELEASE 50 MG TABLET PO SCH ×2 (17:16→20:56)
[2017-02-04 19:15] VITALS: BP 123/54
[2017-02-04] MEDS: TAMSULOSIN 0.4 MG CAP.ER.24H. PO SCH (20:54)
[2017-02-04] MEDS: LOSARTAN POTASSIUM 50 MG TABLET. PO SCH (20:56)
[2017-02-04 23:00] VITALS: BP 125/61
[2017-02-04] MEDS: DIPHENHYDRAMINE 50 MG/ML VIAL IVP PRN (23:01)
[2017-02-05] VITALS (18 sets, daily range): BP systolic 112–148; BP diastolic 41–87
[2017-02-05 04:11] LABS: ALBUMIN 2.8 g/dL (3.4-5.0); CALCIUM 8.4 mg/dL (8.5-10.1); CREATININE 6.3 mg/dL (0.7-1.3); GFR 9.1; PHOSPHORUS 4.2 mg/dL (2.6-4.7)
[2017-02-05 04:19] LABS: BASO % 1 % (0-3); EOS % 2 % (0-3); HEMATOCRIT 26.2 % (39.0-53.0); HEMOGLOBIN 8.6 g/dL (13.0-17.5); LYMPH # 0.8 x10^3/uL (1.0-4.8); LYMPH % 16 % (24-48); MEAN CORPUSCULAR HEMOGLOBIN 31 pg (25-35); MEAN CORPUSCULAR HGB CONC 33 g/dL (31-37); MEAN CORPUSCULAR VOLUME 93 fL (79-100); MONO % 15 % (0-9); NEUT % 67 % (31-73); PLATELET COUNT 180 x10^3/uL (140-400); RED BLOOD COUNT 2.81 x10^6/uL (4.30-5.70); RED CELL DISTRIBUTION WIDTH 13.9 % (11.5-14.5); WHITE BLOOD COUNT 5.2 x10^3/uL (4.0-11.0)
[2017-02-05] MEDS ORDERED: POTASSIUM CHLORIDE 70 MEQ, SODIUM BICARBONATE VIAL 12.5 MEQ, LIDOCAINE 2% 24 ML in IV E... IRR ONE (06:00)
[2017-02-05] MEDS ORDERED: POTASSIUM CHLORIDE 15 MEQ, SODIUM BICARBONATE VIAL 12.5 MEQ in IV ELECTROLYTE-S (PH 7.4... IRR ONE (06:00)
[2017-02-05] MEDS ORDERED: HEPARIN 20,000 UNIT in IV RINGERS,LACTATED 1000ML 1,000 ML IRR ONE (06:00)
[2017-02-05] MEDS ORDERED: VANCOMYCIN 1GM IVPB FOR OMNI 250 ML IV ONE (06:00)
[2017-02-05] MEDS ORDERED: ETOMIDATE 20 MG/10 ML VIAL. IV ONE (06:13)
[2017-02-05] MEDS ORDERED: LIDOCAINE 2% 100 MG/5 ML DISP.SYRIN. ONE (06:13)
[2017-02-05] MEDS ORDERED: AMINOCAPROIC ACID 5,000 MG/20 ML VIAL IV ONE ×2 (06:13→12:59)
[2017-02-05] MEDS ORDERED: ROCURONIUM 100 MG/10 ML VIAL. ONE ×2 (06:14→09:43)
[2017-02-05] MEDS ORDERED: MIDAZOLAM HCL 2 MG/2 ML VIAL. ONE (06:14)
[2017-02-05] MEDS ORDERED: EPHEDRINE PF IN SALINE 50 MG/5 ML DISP.SYRIN. IV ONE (06:14)
[2017-02-05] MEDS ORDERED: SUFentanil 100 MCG/2 ML AMPUL. ONE ×2 (06:14→08:01)
[2017-02-05] MEDS ORDERED: PHENYLEPHRINE 10 MG/ML VIAL. ONE (06:14)
[2017-02-05] MEDS ORDERED: FENTANYL PF 100 MCG/2 ML VIAL. ONE (06:15)
[2017-02-05] MEDS ORDERED: NITROGLYCERIN PREMIX 250 ML IV ONE (06:15)
[2017-02-05] MEDS ORDERED: HEPARIN 30,000 UNIT/30 ML VIAL. ONE ×2 (06:16→12:59)
[2017-02-05] MEDS: METOPROLOL TART IMMED RELEASE 50 MG TABLET PO SCH (06:34)
[2017-02-05] MEDS ORDERED: ASPIRIN 300 MG SUPP.RECT ONE (06:42)
[2017-02-05] MEDS ORDERED: PAPAVERINE 60 MG/2 ML VIAL FOR OR ONLY. ONE (06:42)
[2017-02-05] MEDS ORDERED: SURGICEL HEMOSTAT 4X8 EACH. ONE (06:42)
[2017-02-05] MEDS ORDERED: MINERAL OIL 10 ML VIAL MC ONE (06:43)
[2017-02-05] MEDS ORDERED: 0.9 % SODIUM CHLORIDE 50 ML VIAL. IJ ONE (06:43)
[2017-02-05] MEDS ORDERED: MORPHINE SULFATE 2 MG/ML DISP.SYRIN. IV PRN (07:00)
[2017-02-05] MEDS ORDERED: HYDROMORPHONE 2 MG/ML VIAL. IV PRN (07:00)
[2017-02-05] MEDS ORDERED: LIDOCAINE 1% 1 ML SYRINGE. ID PRN (07:00)
[2017-02-05] MEDS ORDERED: ONDANSETRON PF 4 MG/2 ML VIAL. IV PRN ×2 (07:00→13:15)
[2017-02-05] MEDS ORDERED: IV RINGERS,LACTATED 1000ML 1,000 ML IV SCH (07:00)
[2017-02-05] MEDS ORDERED: FENTANYL PF 100 MCG/2 ML VIAL. IV PRN ×2 (07:00)
[2017-02-05] MEDS ORDERED: PROCHLORPERAZINE 10 MG/2 ML VIAL. IV PRN (07:00)
[2017-02-05] MEDS ORDERED: MANNITOL 20% PREMIX 500 ML IV ONE (07:15)
[2017-02-05] MEDS: PANTOPRAZOLE 40 MG TABLET. PO SCH (07:30)
[2017-02-05] MEDS: CALCIUM CARBONATE 500 MG TAB.CHEW PO SCH ×3 (07:30→16:06)
[2017-02-05] MEDS: FUROSEMIDE 80 MG TABLET PO SCH ×2 (09:00→14:00)
[2017-02-05] MEDS: ISOSORBIDE MONONITRATE ER 30 MG TAB.ER.24H PO SCH (09:00)
[2017-02-05] MEDS: AMLODIPINE BESYLATE 10 MG TABLET PO SCH ×2 (09:00→21:00)
[2017-02-05] MEDS: CLONIDINE HCL 0.3 MG TABLET PO SCH (09:00)
[2017-02-05] MEDS: DOCUSATE SODIUM 100 MG CAPSULE PO SCH ×2 (09:00→21:00)
[2017-02-05] MEDS: PAROXETINE 20 MG TABLET. PO SCH (09:00)
[2017-02-05] MEDS: FOLIC/VIT B COMP W-C (RENAL) TABLET. PO SCH (09:00)
[2017-02-05] MEDS: HYDRALAZINE 50 MG TABLET PO SCH ×3 (09:00→21:00)
[2017-02-05] MEDS ORDERED: MIDAZOLAM HCL/PF 5 MG/5 ML VIAL ONE (09:10)
[2017-02-05] MEDS ORDERED: HEPARIN for IV BOLUS 10,000 UNIT/10 ML VIAL. ONE ×3 (09:15→12:59)
--- NOTE | 2017-02-05 10:42 | PDOC ---
PROGRESS NOTES Chief Complaint Chief Complaint Pancreatitis ACS ASSESSMENT AND PLAN: 2. STEMI: EKG changes (incl brief afib). cath on 01/[address] Kiran: multivessel dz. CABG this AM. as per CV team 3. ESRD: on HD, Dr Luz sharma 4. Anemia: 2/2 ESRD. EPO, iron with HD as indicated. acute blood loss from surgery. transfuse aggressively (slowed bone marrow response) 5. Anxiety: Xanax PRN, .25-.5 PRN 6. AMS : resolved (benzo induced) 7. Sore throat: prob viral, Strep neg. cepacol 8. Pancreatitis: recurrent panc w/o EtOH hx, and s/p CCY. resolved 9. Prophylaxis: PPI History of Present Illness History of Present Illness Vitals Vitals Vital Signs Date Time Temp Pulse Resp B/P Pulse Ox O2 Delivery O2 Flow Rate FiO2 02/05/17 07:15 97.3 84 18 148/87 96 Nasal Cannula 2.0 97.3 Physical Exam General: Other (intubated, sedated) Heart: Normal S1, Normal S2, Other (irreg) Lungs: Clear Abdomen: Normal bowel sounds, Soft, No tenderness Skin: No rashes Labs LABS Laboratory Tests Test 02/04/17 11:10 02/05/17 03:35 Heparin Anti-Xa Act, Unfractionated 0.17IU/mL (0.30-0.70) White Blood Count 5.2x10^3/uL (4.0-11.0) Red Blood Count 2.81x10^6/uL (4.30-5.70) Hemoglobin 8.6g/dL (13.0-17.5) Hematocrit 26.2% (39.0-53.0) Mean Corpuscular Volume 93fL (79-100) Mean Corpuscular Hemoglobin 31pg (25-35) Mean Corpuscular Hemoglobin Concent 33g/dL (31-37) Red Cell Distribution Width 13.9% (11.5-14.5) Platelet Count 180x10^3/uL (140-400) Neutrophils (%) (Auto) 67% (31-73) Lymphocytes (%) (Auto) 16% (24-48) Monocytes (%) (Auto) 15% (0-9) Eosinophils (%) (Auto) 2% (0-3) Basophils (%) (Auto) 1% (0-3) Neutrophils # (Auto) 3.4x10^3uL (1.8-7.7) Lymphocytes # (Auto) 0.8x10^3/uL (1.0-4.8) Monocytes # (Auto) 0.8x10^3/uL (0.0-1.1) Eosinophils # (Auto) 0.1x10^3/uL (0.0-0.7) Basophils # (Auto) 0.0x10^3/uL (0.0-0.2) Sodium Level 141mmol/L (136-145) Potassium Level 4.0mmol/L (3.5-5.1) Chloride Level 101mmol/L (98-107) Carbon Dioxide Level 32mmol/L (21-32) Anion Gap 8 (6-14) Blood Urea Nitrogen 21mg/dL (8-26) Creatinine 6.3mg/dL (0.7-1.3) Estimated GFR (Cockcroft-Gault) 9.1 Glucose Level 94mg/dL (70-99) Calcium Level 8.4mg/dL (8.5-10.1) Phosphorus Level 4.2mg/dL (2.6-4.7) Magnesium Level 1.7mg/dL (1.8-2.4) Albumin 2.8g/dL (3.4-5.0) Review of Systems Review of Systems intubated Nutrition Consultation Dietary Evaluation: Recommendations by RD: Increase Calorie Intake Comments: Discussed typical nutrition care plan for CABG surgery Continue to encourage diet compliance to the cardiac/renal diets D/C the boost yolanda-pt diet advanced, meeting nutrition needs via PO intake Expected Outcomes/Goals: meet 75% estimated nutrition needs Malnutrition Findings: Reduced Housing Specialist Strength: N/A Weight Status: Overweight WENDI GUTIERREZ MD Feb 05, 2017 10:42
--- NOTE | 2017-02-05 10:52 | PDOC ---
PROGRESS NOTES Subjective Subjective Patient was in surgery this morning when rounds were made. Objective Objective Vital Signs Date Time Temp Pulse Resp B/P Pulse Ox O2 Delivery O2 Flow Rate FiO2 02/05/17 07:15 97.3 84 18 148/87 96 Nasal Cannula 2.0 97.3 Intake and Output 02/05/17 07:00 Intake Total 680 ml Balance 680 ml Intake Oral 680 ml # Voids 2 Physical Exam Physical Exam patient not examined, in surgery Assessment Assessment Problems Medical Problems: (1) Flank pain Status: Acute (2) Pancreatitis Status: Acute Plan Plan of Care follow patient after surgery complete Comment Review of Relevant I have reviewed the following items dionte (where applicable) has been applied. Labs Laboratory Tests Test 02/03/17 12:17 02/04/17 04:45 02/04/17 11:10 02/05/17 03:35 Group A Streptococcus Rapid Negative (NEGATIVE) White Blood Count 7.2x10^3/uL (4.0-11.0) 5.2x10^3/uL (4.0-11.0) Red Blood Count 2.91x10^6/uL (4.30-5.70) 2.81x10^6/uL (4.30-5.70) Hemoglobin 9.1g/dL (13.0-17.5) 8.6g/dL (13.0-17.5) Hematocrit 26.9% (39.0-53.0) 26.2% (39.0-53.0) Mean Corpuscular Volume 93fL (79-100) 93fL (79-100) Mean Corpuscular Hemoglobin 31pg (25-35) 31pg (25-35) Mean Corpuscular Hemoglobin Concent 34g/dL (31-37) 33g/dL (31-37) Red Cell Distribution Width 13.9% (11.5-14.5) 13.9% (11.5-14.5) Platelet Count 169x10^3/uL (140-400) 180x10^3/uL (140-400) Neutrophils (%) (Auto) 77% (31-73) 67% (31-73) Lymphocytes (%) (Auto) 9% (24-48) 16% (24-48) Monocytes (%) (Auto) 12% (0-9) 15% (0-9) Eosinophils (%) (Auto) 2% (0-3) 2% (0-3) Basophils (%) (Auto) 1% (0-3) 1% (0-3) Neutrophils # (Auto) 5.6x10^3uL (1.8-7.7) 3.4x10^3uL (1.8-7.7) Lymphocytes # (Auto) 0.6x10^3/uL (1.0-4.8) 0.8x10^3/uL (1.0-4.8) Monocytes # (Auto) 0.8x10^3/uL (0.0-1.1) 0.8x10^3/uL (0.0-1.1) Eosinophils # (Auto) 0.1x10^3/uL (0.0-0.7) 0.1x10^3/uL (0.0-0.7) Basophils # (Auto) 0.1x10^3/uL (0.0-0.2) 0.0x10^3/uL (0.0-0.2) Sodium Level 140mmol/L (136-145) 141mmol/L (136-145) Potassium Level 4.5mmol/L (3.5-5.1) 4.0mmol/L (3.5-5.1) Chloride Level 100mmol/L (98-107) 101mmol/L (98-107) Carbon Dioxide Level 28mmol/L (21-32) 32mmol/L (21-32) Anion Gap 12 (6-14) 8 (6-14) Blood Urea Nitrogen 34mg/dL (8-26) 21mg/dL (8-26) Creatinine 8.9mg/dL (0.7-1.3) 6.3mg/dL (0.7-1.3) Estimated GFR (Cockcroft-Gault) 6.1 9.1 Glucose Level 100mg/dL (70-99) 94mg/dL (70-99) Calcium Level 7.7mg/dL (8.5-10.1) 8.4mg/dL (8.5-10.1) Heparin Anti-Xa Act, Unfractionated 0.17IU/mL (0.30-0.70) Phosphorus Level 4.2mg/dL (2.6-4.7) Magnesium Level 1.7mg/dL (1.8-2.4) Albumin 2.8g/dL (3.4-5.0) Laboratory Tests Test 02/04/17 11:10 02/05/17 03:35 Heparin Anti-Xa Act, Unfractionated 0.17IU/mL (0.30-0.70) White Blood Count 5.2x10^3/uL (4.0-11.0) Red Blood Count 2.81x10^6/uL (4.30-5.70) Hemoglobin 8.6g/dL (13.0-17.5) Hematocrit 26.2% (39.0-53.0) Mean Corpuscular Volume 93fL (79-100) Mean Corpuscular Hemoglobin 31pg (25-35) Mean Corpuscular Hemoglobin Concent 33g/dL (31-37) Red Cell Distribution Width 13.9% (11.5-14.5) Platelet Count 180x10^3/uL (140-400) Neutrophils (%) (Auto) 67% (31-73) Lymphocytes (%) (Auto) 16% (24-48) Monocytes (%) (Auto) 15% (0-9) Eosinophils (%) (Auto) 2% (0-3) Basophils (%) (Auto) 1% (0-3) Neutrophils # (Auto) 3.4x10^3uL (1.8-7.7) Lymphocytes # (Auto) 0.8x10^3/uL (1.0-4.8) Monocytes # (Auto) 0.8x10^3/uL (0.0-1.1) Eosinophils # (Auto) 0.1x10^3/uL (0.0-0.7) Basophils # (Auto) 0.0x10^3/uL (0.0-0.2) Sodium Level 141mmol/L (136-145) Potassium Level 4.0mmol/L (3.5-5.1) Chloride Level 101mmol/L (98-107) Carbon Dioxide Level 32mmol/L (21-32) Anion Gap 8 (6-14) Blood Urea Nitrogen 21mg/dL (8-26) Creatinine 6.3mg/dL (0.7-1.3) Estimated GFR (Cockcroft-Gault) 9.1 Glucose Level 94mg/dL (70-99) Calcium Level 8.4mg/dL (8.5-10.1) Phosphorus Level 4.2mg/dL (2.6-4.7) Magnesium Level 1.7mg/dL (1.8-2.4) Albumin 2.8g/dL (3.4-5.0) Microbiology 02/03/17 Throat Culture - Preliminary, Resulted 02/03/17 - Preliminary, Resulted Medications Current Medications Hydromorphone HCl (Dilaudid) 1 mg 1X ONCE IV Last administered on 01/28/17 23 :57; Start 01/28/17 at 23:30; Stop 01/28/17 at 23:31; Status DC Ondansetron HCl 4 mg 4 mg 1X ONCE IV Last administered on 01/28/17 23:57; Start 01/28/17 at 23:30; Stop 01/28/17 at 23:31; Status DC Sodium Chloride (Iv Sodium Chloride 0.9% 500ml Bag) 500 ml @ 0 mls/hr 1X ONCE IV Last administered on 01/28/17 23:39; Start 01/28/17 at 23:30; Stop at 23:31; Status DC Diphenhydramine HCl (Benadryl) 50 mg 1X ONCE IVP Last administered on 00:29; Start 01/29/17 at 00:30; Stop 01/29/17 at 00:31; Status DC Diphenhydramine HCl (Benadryl) 50 mg STK-MED ONCE .ROUTE ; Start 01/29/17 at 00: 26; Stop 01/29/17 at 00:27; Status DC Morphine Sulfate 4 mg 1X ONCE IV Last administered on 01/29/17 03:55; Start 01/29/17 at 02:15; Stop 01/29/17 at 02:16; Status DC Ondansetron HCl (Zofran) 4 mg PRN Q8HRS PRN IV NAUSEA/VOMITING; Start 01/29/17 at 03:00; Stop 01/30/17 at 02:59; Status DC Morphine Sulfate 4 mg 4 mg PRN Q2HR PRN IV PAIN Last administered on 01/29/17 09:59; Start 01/29/17 at 03:00; Stop 01/29/17 at 11:47; Status DC Sodium Chloride (Iv Sodium Chloride 0.9% 1000ml Bag) 1,000 ml @ 50 mls/hr Q20H IV Last administered on 01/30/17 07:28; Start 01/29/17 at 02:12; Stop at 02:11; Status DC Alprazolam (Xanax) 0.5 mg PRN Q6HRS PRN PO ANXIETY / AGITATION Last administered on 02/03/17 07:45; Start 01/29/17 at 11:30; Stop 02/03/17 at 12:13 ; Status DC Amlodipine Besylate (Norvasc) 10 mg BID PO Last administered on 02/04/17 20:55 ; Start 01/29/17 at 12:00 Aspirin (Children'S Aspirin) 324 mg DAILY PO ; Start 01/29/17 at 12:00; Stop at 18:32; Status DC Calcium Carbonate/ Glycine (Tums) 800 mg TIDAC PO Last administered on 17:19; Start 01/29/17 at 11:30 Clonidine HCl (Catapres) 0.3 mg DAILY PO Last administered on 02/04/17 14:59; Start 01/30/17 at 09:00 Clopidogrel Bisulfate (Plavix) 75 mg DAILY PO ; Start 01/29/17 at 12:00; Stop at 09:45; Status DC Vitamin B Complex/ Vitamin C (Nephro-Chilo) 1 tab DAILY PO Last administered on 02/04/17 14:59; Start 01/29/17 at 12:00 Furosemide (Lasix) 80 mg [id number] PO Last administered on 02/04/17 15:11; Start 01/29/17 at 14:00 Acetaminophen/ Hydrocodone Bitart (Lortab 5/325) 1 tab PRN Q6HRS PRN PO PAIN; Start 01/29/17 at 11:30; Stop 01/29/17 at 18:58; Status DC Isosorbide Mononitrate (Imdur) 30 mg DAILY PO Last administered on 02/04/17 15 :01; Start 01/29/17 at 12:00 Paroxetine HCl (Paxil) 40 mg DAILY PO Last administered on 02/04/17 15:00; Start 01/29/17 at 12:00 Tamsulosin HCl (Flomax) 0.4 mg QHS PO Last administered on 02/04/17 20:54; Start 01/29/17 at 21:00 Hydralazine HCl (Apresoline) 100 mg TID PO Last administered on 02/04/17 20:54 ; Start 01/29/17 at 14:00 Losartan Potassium (Cozaar) 100 mg QHS PO Last administered on 02/04/17 20:56 ; Start 01/29/17 at 21:00 Metoprolol Tartrate (Lopressor) 100 mg BID PO Last administered on 02/05/17 06 :34; Start 01/29/17 at 12:00 Pantoprazole Sodium (Protonix) 40 mg DAILYAC PO Last administered on 02/04/17 15:01; Start 01/29/17 at 12:00 Darbepoetin Percy (Aranesp) 60 mcg [id number] SQ Last administered on 02/02/17 21 :15; Start 02/02/17 at 21:00 Morphine Sulfate 6 mg 6 mg PRN Q2HR PRN IV PAIN Last administered on 01/30/17 19:22; Start 01/29/17 at 11:45; Stop 02/01/17 at 15:20; Status DC Sodium Chloride (Iv Sodium Chloride 0.9% 1000ml Bag) 1,000 ml @ 1,000 mls/hr Q1H PRN IV hypotension; Start 01/29/17 at 12:55; Stop 01/29/17 at 18:54; Status DC Diphenhydramine HCl (Benadryl) 25 mg 1X PRN PRN IV ITCHING Last administered on 01/29/17 19:12; Start 01/29/17 at 13:00; Stop 01/30/17 at 12:59; Status DC Diphenhydramine HCl (Benadryl) 25 mg 1X PRN PRN IV ITCHING Last administered on 01/29/17 13:16; Start 01/29/17 at 13:00; Stop 01/30/17 at 12:59; Status DC Info (PHARMACY MONITORING -- do not chart) 1 each PRN DAILY PRN MC SEE COMMENTS ; Start 01/29/17 at 13:00; Status UNV Info (PHARMACY MONITORING -- do not chart) 1 each PRN DAILY PRN MC SEE COMMENTS ; Start 01/29/17 at 13:00; Stop 02/03/17 at 09:04; Status DC Nitroglycerin (Nitrostat) 0.4 mg STK-MED ONCE SL ; Start 01/29/17 at 16:55; Stop 01/29/17 at 16:56; Status DC Heparin Sodium (Porcine) 4000 unit 4,000 unit 1X ONCE IV Last administered on 01/29/17t 17:37; Start 01/29/17 at 17:30; Stop 01/29/17 at 17:31; Status DC Heparin Sodium/ Sodium Chloride 500 ml @ As Directed STK-MED ONCE .ROUTE ; Start 01/29/17 at 17:54; Stop 01/29/17 at 17:55; Status DC Lidocaine HCl 20 ml STK-MED ONCE .ROUTE ; Start 01/29/17 at 17:54; Stop at 17:55; Status DC Iodixanol (Visipaque 320) 100 ml STK-MED ONCE .ROUTE ; Start 01/29/17 at 17:54; Stop 01/29/17 at 17:55; Status DC Metoprolol Tartrate (Lopressor) 5 mg STK-MED ONCE .ROUTE ; Start 01/29/17 at 18: 05; Stop 01/29/17 at 18:06; Status DC Fentanyl Citrate (Fentanyl 2ml Vial) 100 mcg STK-MED ONCE .ROUTE ; Start at 18:05; Stop 01/29/17 at 18:06; Status DC Midazolam HCl 2 mg 2 mg STK-MED ONCE .ROUTE ; Start 01/29/17 at 18:05; Stop at 18:06; Status DC Heparin Sodium/ Dextrose 500 ml @ As Directed STK-MED ONCE IV ; Start 01/29/17 at 18:18; Stop 01/29/17 at 18:19; Status DC Heparin Sodium (Porcine) 10,000 unit STK-MED ONCE .ROUTE ; Start 01/29/17 at 18: 18; Stop 01/29/17 at 18:19; Status DC Metoprolol Tartrate (Lopressor) 5 mg STK-MED ONCE .ROUTE ; Start 01/29/17 at 18: 25; Stop 01/29/17 at 18:26; Status DC Heparin Sodium/ Sodium Chloride 1,000 unit 1X ONCE IART Last administered on 18:51; Start 01/29/17 at 18:45; Stop 01/29/17 at 18:53; Status DC Heparin Sodium/ Sodium Chloride 1,000 unit 1X ONCE IART Last administered on 18:51; Start 01/29/17 at 18:45; Stop 01/29/17 at 18:53; Status DC Midazolam HCl (Versed) 1 mg 1X ONCE IV Last administered on 01/29/17 18:53; Start 01/29/17 at 18:45; Stop 01/29/17 at 18:53; Status DC Fentanyl Citrate (Fentanyl 2ml Vial) 50 mcg 1X ONCE IV Last administered on 18:53; Start 01/29/17 at 18:45; Stop 01/29/17 at 18:53; Status DC Iodixanol (Visipaque 320) 105 ml 1X ONCE IART Last administered on 01/29/17 18:52; Start 01/29/17 at 18:45; Stop 01/29/17 at 18:53; Status DC Heparin Sodium (Porcine) 4000 unit 4,000 unit 1X ONCE IV Last administered on 01/29/17 18:53; Start 01/29/17 at 18:45; Stop 01/29/17 at 18:53; Status DC Heparin Sodium/ Dextrose 500 ml @ 20 mls/hr CONT PRN IV SEE I/O RECORD; Start 01/29/17 at 18:24; Stop 01/30/17 at 14:01; Status DC Metoprolol Tartrate (Lopressor) 10 mg 1X ONCE IVP Last administered on 18:52; Start 01/29/17 at 18:45; Stop 01/29/17 at 18:53; Status DC Lidocaine HCl 10 ml 1X ONCE IJ Last administered on 01/29/17 18:52; Start at 18:45; Stop 01/29/17 at 18:53; Status DC Sodium Chloride (Normal Saline Flush) 3 ml QSHIFT PRN IV AFTER MEDS AND BLOOD DRAWS; Start 01/29/17 at 18:45 Docusate Sodium (Colace) 100 mg BID PO Last administered on 02/04/17 20:54; Start 01/29/17 at 21:00 Fentanyl Citrate (Fentanyl 2ml Vial) 50 mcg PRN Q1HR PRN IV SEVERE PAIN Last administered on 01/29/17 23:25; Start 01/29/17 at 18:45 Cyclobenzaprine HCl (Flexeril) 10 mg PRN TID PRN PO MUSCLE SPASMS Last administered on 01/30/17 05:22; Start 01/29/17 at 18:45 Ondansetron HCl (Zofran) 4 mg PRN Q6HRS PRN IV NAUSEA/VOMITING; Start 01/29/17 at 18:45 Nitroglycerin (Nitrostat) 0.4 mg PRN Q5MIN PRN SL CHEST PAIN; Start 01/29/17 at 18:45 Acetaminophen/ Hydrocodone Bitart (Lortab 5/325) 1 tab PRN Q4HRS PRN PO MILD PAIN Last administered on 02/04/17 17:16; Start 01/29/17 at 18:45 Diltiazem HCl 5 mg 5 mg 1X ONCE IVP Last administered on 01/29/17 19:23; Start 01/29/17 at 19:15; Stop 01/29/17 at 19:18; Status DC Diltiazem HCl/ Dextrose (Cardizem) 125 ml @ 0 mls/hr CONT PRN IV SEE I/O RECORD ; Start 01/29/17 at 19:15; Stop 02/03/17 at 12:13; Status DC Diphenhydramine HCl (Benadryl) 50 mg PRN Q8HRS PRN IVP ITCHING Last administered on 02/02/17 09:41; Start 01/29/17 at 19:15; Stop 02/03/17 at 09:05 ; Status DC Nitroglycerin (Nitrostat) 0.4 mg STK-MED ONCE SL ; Start 01/29/17 at 17:00; Stop 01/30/17 at 08:02; Status DC Info (Anti-Coagulation Monitoring By Pharmacy) 1 each PRN DAILY PRN MC SEE COMMENTS Last administered on 02/04/17 09:51; Start 01/30/17 at 10:45; Stop at 18:43; Status DC Heparin Sodium (Porcine) 3000 unit 3,000 unit 1X ONCE IV Last administered on 01/30/17 17:36; Start 01/30/17 at 18:00; Stop 01/30/17 at 18:01; Status DC Heparin Sodium/ Dextrose 500 ml @ 24 mls/hr CONT PRN IV SEE I/O RECORD Last administered on 02/03/17 05:47; Start 01/30/17 at 18:00; Stop 02/04/17 at 18:41 ; Status DC Sodium Chloride (Iv Sodium Chloride 0.9% 1000ml Bag) 1,000 ml @ 50 mls/hr Q20H IV Last administered on 01/31/17 23:30; Start 01/31/17 at 02:45; Stop at 12:13; Status DC Dextrose 25 gm 1X ONCE IV Last administered on 01/31/17 06:05; Start at 06:30; Stop 01/31/17 at 06:31; Status DC Insulin Human Regular (Novolin R Vial) 10 unit 1X ONCE IV Last administered on 01/31/17 06:09; Start 01/31/17 at 06:30; Stop 01/31/17 at 06:31; Status DC Dextrose 25 gm 25 gm 1X ONCE IV Last administered on 01/31/17 09:04; Start at 09:00; Stop 01/31/17 at 09:03; Status DC Sodium Chloride 1,000 ml @ 1,000 mls/hr Q1H PRN IV hypotension; Start 01/31/17 at 09:28; Stop 01/31/17 at 15:27; Status DC Albumin Human (Albuminar) 200 ml @ 200 mls/hr 1X PRN PRN IV Hypotension; Start 01/31/17 at 09:30; Stop 01/31/17 at 15:29; Status DC Acetaminophen (Tylenol) 500 mg 1X PRN PRN PO MILD PAIN / TEMP; Start 01/31/17 at 09:30; Stop 02/01/17 at 09:29; Status DC Diphenhydramine HCl (Benadryl) 25 mg 1X PRN PRN IV ITCHING Last administered on 3/16/17at 18:05; Start 01/31/17 at 09:30; Stop 02/01/17 at 09:29; Status DC Diphenhydramine HCl (Benadryl) 25 mg 1X PRN PRN IV ITCHING; Start 01/31/17 at 09:30; Stop 02/01/17 at 09:29; Status DC Info (PHARMACY MONITORING -- do not chart) 1 each PRN DAILY PRN MC SEE COMMENTS ; Start 01/31/17 at 09:30; Status UNV Diphenhydramine HCl (Benadryl) 50 mg PRN Q6HRS PRN IVP ITCHING Last administered on 02/04/17 23:01; Start 02/01/17 at 15:15 Fentanyl Citrate (Fentanyl 2ml Vial) 25 mcg PRN Q4HRS PRN IV MODERATE PAIN; Start 02/01/17 at 15:15 Diphenhydramine HCl (Benadryl) 25 mg 1X PRN PRN IV ITCHING; Start 02/02/17 at 09:30; Stop 02/03/17 at 09:29; Status DC Info (PHARMACY MONITORING -- do not chart) 1 each PRN DAILY PRN MC SEE COMMENTS ; Start 02/02/17 at 09:30; Stop 02/03/17 at 09:05; Status DC Info (PHARMACY MONITORING -- do not chart) 1 each PRN DAILY PRN MC SEE COMMENTS ; Start 02/02/17 at 09:30; Status Cancel Throat Lozenges (Cepacol Sore Throat Lozenge) 1 estelita PRN Q2HRS PRN PO SORE THROAT Last administered on 02/03/17 20:49; Start 02/03/17 at 07:15 Alprazolam (Xanax) 0.25 mg PRN Q6HRS PRN PO ANXIETY / AGITATION, 1ST CHOIC Last administered on 02/03/17 14:15; Start 02/03/17 at 12:15 Alprazolam 0.5 mg 0.5 mg PRN Q6HRS PRN PO ANXIETY / AGITATION, 2ND CHOIC Last administered on 02/04/17 23:00; Start 02/03/17 at 12:30 Vancomycin HCl 250 ml @ 250 mls/hr 1X PREOP ONCE IV ; Start 02/05/17 at 06:00 ; Stop 02/05/17 at 06:59; Status DC Ondansetron HCl (Zofran) 4 mg PRN Q6HRS PRN IV Nausea; Start 02/05/17 at 07:00 ; Stop 02/06/17 at 06:59 Fentanyl Citrate (Fentanyl 2ml Vial) 25 mcg PRN Q5MIN PRN IV MILD PAIN; Start 02/05/17 at 07:00; Stop 02/06/17 at 06:59 Fentanyl Citrate (Fentanyl 2ml Vial) 50 mcg PRN Q5MIN PRN IV MODERATE PAIN; Start 02/05/17 at 07:00; Stop 02/06/17 at 06:59 Morphine Sulfate 1 mg 1 mg PRN Q10MIN PRN IV SEVERE PAIN; Start 02/05/17 at 07: 00; Stop 02/06/17 at 06:59 Lactated Ringer's (Iv Lactated Ringers) 1,000 ml @ 0 mls/hr Q0M IV Last administered on 02/05/17t 07:32; Start 02/05/17 at 07:00; Stop 02/05/17 at 18:59 Lidocaine HCl 2 ml 1X PRN PRN ID IV START; Start 02/05/17 at 07:00; Stop at 06:59 Hydromorphone HCl (Dilaudid) 0.5 mg PRN Q10MIN PRN IV SEVERE PAIN, Second choice; Start 02/05/17 at 07:00; Stop 02/06/17 at 06:59 Prochlorperazine Edisylate 5 mg 5 mg PACU PRN PRN IV NAUSEA; Start 02/05/17 at 07:00; Stop 02/06/17 at 06:59 Sodium Chloride (Iv Sodium Chloride 0.9% 1000ml Bag) 1,000 ml @ 1,000 mls/hr Q1H PRN IV hypotension; Start 02/04/17 at 09:55; Stop 02/04/17 at 15:54; Status DC Info (PHARMACY MONITORING -- do not chart) 1 each PRN DAILY PRN MC SEE COMMENTS ; Start 02/04/17 at 10:00 Throat Lozenges 1 estelita 1 estelita PRN Q2HRS PRN PO SORE THROAT; Start 02/04/17 at 11: 00 Magnesium Sulfate/ Dextrose 50 ml @ 25 mls/hr PRN DAILY PRN IV for Mag < 1.7 on am labs; Start 02/04/17 at 11:30 Potassium Chloride 70 meq/ Sodium Bicarbonate 12.5 meq/Lidocaine HCl 24 ml/ Parenteral Electrolytes 571.5 ml @ 571.5 mls/ hr 1X PERIOP ONCE IRR Last administered on 02/05/17 09:42; Start 02/05/17 at 06:00; Stop 02/05/17 at 06:59 ; Status DC Potassium Chloride 15 meq/ Sodium Bicarbonate 12.5 meq/Parenteral Electrolytes 520 ml @ 520 mls/hr 1X PERIOP ONCE IRR Last administered on 02/05/17 09:42; Start 02/05/17 at 06:00; Stop 02/05/17 at 06:59; Status DC Heparin Sodium (Porcine)/ Lactated Ringer's (Iv Lactated Ringers) 1,020 ml @ 1, 020 mls/hr 1X PERIOP ONCE IRR Last administered on 02/05/17 08:42; Start at 06:00; Stop 02/05/17 at 06:59; Status DC Aminocaproic Acid (Amicar) 5,000 mg STK-MED ONCE IV ; Start 02/05/17 at 06:13; Stop 02/05/17 at 06:14; Status DC Etomidate (Amidate) 20 mg STK-MED ONCE IV ; Start 02/05/17 at 06:13; Stop at 06:14; Status DC Lidocaine HCl 100 mg STK-MED ONCE .ROUTE ; Start 02/05/17 at 06:13; Stop at 06:14; Status DC Rocuronium [place] (Zemuron) 100 mg STK-MED ONCE .ROUTE ; Start 02/05/17 at 06: 14; Stop 02/05/17 at 06:15; Status DC Ephedrine Sulfate 50 mg STK-MED ONCE IV ; Start 02/05/17 at 06:14; Stop at 06:15; Status DC Phenylephrine HCl (Alexis-Synephrine Inj) 10 mg STK-MED ONCE .ROUTE ; Start at 06:14; Stop 02/05/17 at 06:15; Status DC Sufentanil Citrate (Sufenta) 100 mcg STK-MED ONCE .ROUTE ; Start 02/05/17 at 06: 14; Stop 02/05/17 at 06:15; Status DC Midazolam HCl (Versed) 2 mg STK-MED ONCE .ROUTE ; Start 02/05/17 at 06:14; Stop 02/05/17 at 06:15; Status DC Fentanyl Citrate 100 mcg 100 mcg STK-MED ONCE .ROUTE ; Start 02/05/17 at 06:15; Stop 02/05/17 at 06:16; Status DC Nitroglycerin/ Dextrose (Nitroglycerin Drip) 250 ml @ As Directed STK-MED ONCE IV ; Start 02/05/17 at 06:15; Stop 02/05/17 at 06:16; Status DC Heparin Sodium (Porcine) 30,000 unit STK-MED ONCE .ROUTE ; Start 02/05/17 at 06: 16; Stop 02/05/17 at 06:17; Status DC Cellulose 1 each STK-MED ONCE .ROUTE Last administered on 02/05/17 08:42; Start 02/05/17 at 06:42; Stop 02/05/17 at 06:43; Status DC Papaverine HCl 60 mg STK-MED ONCE .ROUTE Last administered on 02/05/17 08:42; Start 02/05/17 at 06:42; Stop 02/05/17 at 06:43; Status DC Aspirin (Aspirin) 300 mg STK-MED ONCE .ROUTE Last administered on 02/05/17 10: 08; Start 02/05/17 at 06:42; Stop 02/05/17 at 06:43; Status DC Mineral Oil (Muri-Lube) 10 ml STK-MED ONCE MC Last administered on 02/05/17 10 :06; Start 02/05/17 at 06:43; Stop 02/05/17 at 06:44; Status DC Sodium Chloride 50 ml 50 ml STK-MED ONCE IJ Last administered on 02/05/17 08: 42; Start 02/05/17 at 06:43; Stop 02/05/17 at 06:44; Status DC Mannitol (Mannitol Iv Soln) 500 ml @ 0 mls/hr 1X ONCE IV ; Start 02/05/17 at 07 :15; Stop 02/05/17 at 07:16; Status DC Sufentanil Citrate (Sufenta) 100 mcg STK-MED ONCE .ROUTE ; Start 02/05/17 at 08: 01; Stop 02/05/17 at 08:02; Status DC Midazolam HCl (Versed) 5 mg STK-MED ONCE .ROUTE ; Start 02/05/17 at 09:10; Stop 02/05/17 at 09:11; Status DC Heparin Sodium (Porcine) 10,000 unit STK-MED ONCE .ROUTE ; Start 02/05/17 at 09: 15; Stop 02/05/17 at 09:16; Status DC Rocuronium [place] (Zemuron) 100 mg STK-MED ONCE .ROUTE ; Start 02/05/17 at 09: 43; Stop 02/05/17 at 09:44; Status DC Active Scripts Active Clopidogrel (Clopidogrel Bisulfate) 75 Mg Tablet 1 Tab PO DAILY Isosorbide Mononitrate Er (Isosorbide Mononitrate) 30 Mg Tab.er.24h 30 Mg PO DAILY Flomax (Tamsulosin Hcl) 0.4 Mg Cap.er.24h 0.4 Mg PO QHS Reported Hydrocodone-Apap 5-325 (Hydrocodone Bit/Acetaminophen) 1 Each Tablet 1 Tab PO PRN Q6HRS PRN Furosemide 80 Mg Tablet 1 Tab PO BID Nephro-Chilo Tablet (Folic Acid/Vitamin B Comp W-C) 0.8 Mg Tablet 1 Tab PO DAILY Paroxetine Hcl 20 Mg Tablet 40 Mg PO DAILY Tums (Calcium Carbonate) 200 Mg Tab.chew 800 Mg PO TIDAC Omeprazole Magnesium 20 Mg Capsule.dr 20 Mg PO DAILY Clonidine Hcl 0.3 Mg Tablet 1 Tab PO DAILY Hydralazine Hcl 100 Mg Tablet 100 Mg PO TID LAST DOSE: 02/24/16 AFTERNOON NEXT DOSE: 02/24/16 BEDTIME Amlodipine Besylate 10 Mg Tablet 10 Mg PO BID LAST DOSE: 02/24/16 AM NEXT DOSE: 02/25/16 AM Xanax (Alprazolam) 0.5 Mg Tablet 0.5 Mg PO Q6HRS PRN LAST DOSE: 02/23/16 BEDTIME NEXT DOSE: 02/24/16 BEDTIME Losartan Potassium 100 Mg Tablet 100 Mg PO HS LAST DOSE: 02/23/16 BEDTIME NEXT DOSE: 02/24/16 BEDTIME Metoprolol Tartrate 100 Mg Tablet 100 Mg PO BID LAST DOSE: 02/24/16 AM NEXT DOSE: 4/8/16 BEDTIME Lillian Chewable (Aspirin) 81 Mg Tab.chew 324 Mg PO DAILY LAST DOSE: 02/24/16 AM NEXT DOSE: 02/25/16 AM Vitals/I & O Vital Sign - Last 24 Hours 02/04/17 02/04/17 02/04/17 02/04/17 14:59 15:01 15:02 15:03 Pulse 65 65 65 65 B/P 165/77 165/77 165/77 165/77 02/04/17 02/04/17 02/04/17 02/04/17 17:16 17:16 18:24 19:15 Temp 98.3 98.3 Pulse 69 61 Resp 16 16 20 B/P 144/69 123/54 Pulse Ox 94 O2 Delivery Room Air Room Air Room Air 02/04/17 02/04/17 02/04/17 02/04/17 20:00 20:54 20:55 20:56 Pulse 61 61 61 B/P 123/54 123/54 123/54 O2 Delivery Room Air O2 Flow Rate 2.0 02/04/17 02/04/17 02/05/17 02/05/17 20:56 23:00 03:45 06:34 Temp 98.2 97.9 98.2 97.9 Pulse 61 63 60 60 Resp 18 18 B/P 123/54 125/61 128/54 128/54 Pulse Ox 97 95 O2 Delivery Room Air Room Air 02/05/17 02/05/17 07:12 07:15 Temp 97.2 97.3 97.2 97.3 Pulse 60 84 Resp 20 18 B/P 172/64 148/87 Pulse Ox 98 96 O2 Delivery Room Air Nasal Cannula O2 Flow Rate 2.0 Intake and Output 02/04/17 02/04/17 02/05/17 15:00 23:00 07:00 Intake Total 120 ml 560 ml Balance 120 ml 560 ml Nutrition Consultation Dietary Evaluation: Recommendations by RD: Increase Calorie Intake Comments: Discussed typical nutrition care plan for CABG surgery Continue to encourage diet compliance to the cardiac/renal diets D/C the boost brejulio cesare-pt diet advanced, meeting nutrition needs via PO intake Expected Outcomes/Goals: meet 75% estimated nutrition needs Malnutrition Findings: Reduced Sole Stapler Welt Strength: N/A Weight Status: Overweight ESTEFANÍA MANZO MD Feb 05, 2017 10:52
[2017-02-05] MEDS ORDERED: PROTAMINE 250 MG/25 ML VIAL IV ONE (11:08)
[2017-02-05] MEDS ORDERED: PROTAMINE 50 MG/5 ML VIAL. IV ONE ×3 (11:09)
[2017-02-05] MEDS ORDERED: ISOFLURANE > 120 MINUTES. IH ONE (11:34)
[2017-02-05 12:21] LABS: HEMATOCRIT 21.9 % (39.0-53.0); HEMOGLOBIN 7.3 g/dL (13.0-17.5)
[2017-02-05 12:24] LABS: WHITE BLOOD COUNT 4.9 x10^3/uL (4.0-11.0)
[2017-02-05 12:31] LABS: INR 1.6 (0.8-1.1); PROTHROMBIN TIME PATIENT 17.8 SEC (11.7-14.0)
--- NOTE | 2017-02-05 12:48 | PDOC ---
Subjective: Subjective: Out of room. Objective: Vital Signs: Vital Signs Date Time Temp Pulse Resp B/P Pulse Ox O2 Delivery O2 Flow Rate FiO2 02/05/17 07:15 97.3 84 18 148/87 96 Nasal Cannula 2.0 97.3 Labs: Laboratory Tests Test 02/05/17 03:35 02/05/17 12:16 White Blood Count 5.2x10^3/uL 4.9x10^3/uL Red Blood Count 2.81x10^6/uL Hemoglobin 8.6g/dL 7.3g/dL Hematocrit 26.2% 21.9% Mean Corpuscular Volume 93fL Mean Corpuscular Hemoglobin 31pg Mean Corpuscular Hemoglobin Concent 33g/dL Red Cell Distribution Width 13.9% Platelet Count 180x10^3/uL 90x10^3/uL Neutrophils (%) (Auto) 67% Lymphocytes (%) (Auto) 16% Monocytes (%) (Auto) 15% Eosinophils (%) (Auto) 2% Basophils (%) (Auto) 1% Neutrophils # (Auto) 3.4x10^3uL Lymphocytes # (Auto) 0.8x10^3/uL Monocytes # (Auto) 0.8x10^3/uL Eosinophils # (Auto) 0.1x10^3/uL Basophils # (Auto) 0.0x10^3/uL Sodium Level 141mmol/L Potassium Level 4.0mmol/L Chloride Level 101mmol/L Carbon Dioxide Level 32mmol/L Anion Gap 8 Blood Urea Nitrogen 21mg/dL Creatinine 6.3mg/dL Estimated GFR (Cockcroft-Gault) 9.1 Glucose Level 94mg/dL Calcium Level 8.4mg/dL Phosphorus Level 4.2mg/dL Magnesium Level 1.7mg/dL Albumin 2.8g/dL Prothrombin Time 17.8SEC Prothromb Time International Ratio 1.6 Activated Partial Thromboplast Time 42SEC Fibrinogen 392mg/dL PE: no exam A/P: STEMI 01/29, CAD, PAD, ESRD on HD Recurrent pancreatitis - symptoms improved this admission -s/p cholecystectomy w/o h/o alcohol use GERD, h/o PUD -last EGD 2014, on PPI -- Out for CABG, will follow. TOMMY SALVADOR Feb 05, 2017 12:48
[2017-02-05] MEDS ORDERED: MAGNESIUM SULFATE 5 GM/10 ML VIAL. ONE (12:59)
[2017-02-05] MEDS ORDERED: ALBUMIN HUMAN 25% 200 ML IV ONE (12:59)
[2017-02-05] MEDS ORDERED: LIDOCAINE 1% PF 5 ML VIAL. ONE (12:59)
[2017-02-05] MEDS ORDERED: CALCIUM CHLORIDE 1,000 MG/10 ML DISP.SYRIN IV ONE (12:59)
[2017-02-05 13:04] LABS: ART BE ISTAT 4 mmol/L (0-3); ART GLUC ISTAT 107 mg/dL (70-99); ART HCO3 ISTAT 28 mmol/L (21-28); ART HCT ISTAT 23 % (37-52); ART HGB ISTAT 7.8 g/dL (14-18); ART ION CA ISTAT 0.93 mmol/L (1.13-1.32); ART K ISTAT 4.9 mmol/L (3.5-5.0); ART NA ISTAT 135 mmol/L (135-145); ART PCO2 ISTAT 43 mmHg (35-45); ART PH ISTAT 7.42 (7.35-7.45); ART PO2 ISTAT 318 mmHg (75-100); ART SAT O2 SAT 100 % (95-99); ART TCO2 ISTAT 30 mmol/L (21-32); TOSPEC ART
[2017-02-05 13:04] LABS: ART BE ISTAT 7 mmol/L (0-3); ART GLUC ISTAT 103 mg/dL (70-99); ART HCO3 ISTAT 31 mmol/L (21-28); ART HCT ISTAT 23 % (37-52); ART HGB ISTAT 7.8 g/dL (14-18); ART ION CA ISTAT 0.92 mmol/L (1.13-1.32); ART K ISTAT 4.7 mmol/L (3.5-5.0); ART NA ISTAT 136 mmol/L (135-145); ART PCO2 ISTAT 44 mmHg (35-45); ART PH ISTAT 7.46 (7.35-7.45); ART PO2 ISTAT 377 mmHg (75-100); ART SAT O2 SAT 100 % (95-99); ART TCO2 ISTAT 32 mmol/L (21-32); TOSPEC ART
[2017-02-05 13:04] LABS: ART BE ISTAT 5 mmol/L (0-3); ART GLUC ISTAT 108 mg/dL (70-99); ART HCO3 ISTAT 28 mmol/L (21-28); ART HCT ISTAT 25 % (37-52); ART HGB ISTAT 8.5 g/dL (14-18); ART ION CA ISTAT 0.93 mmol/L (1.13-1.32); ART K ISTAT 4.9 mmol/L (3.5-5.0); ART NA ISTAT 136 mmol/L (135-145); ART PCO2 ISTAT 40 mmHg (35-45); ART PH ISTAT 7.46 (7.35-7.45); ART PO2 ISTAT 327 mmHg (75-100); ART SAT O2 SAT 100 % (95-99); ART TCO2 ISTAT 30 mmol/L (21-32); TOSPEC ART
[2017-02-05 13:04] LABS: ART BE ISTAT 5 mmol/L (0-3); ART GLUC ISTAT 97 mg/dL (70-99); ART HCO3 ISTAT 30 mmol/L (21-28); ART HCT ISTAT 25 % (37-52); ART HGB ISTAT 8.5 g/dL (14-18); ART ION CA ISTAT 0.93 mmol/L (1.13-1.32); ART K ISTAT 4.6 mmol/L (3.5-5.0); ART NA ISTAT 136 mmol/L (135-145); ART PCO2 ISTAT 47 mmHg (35-45); ART PH ISTAT 7.41 (7.35-7.45); ART PO2 ISTAT 501 mmHg (75-100); ART SAT O2 SAT 100 % (95-99); ART TCO2 ISTAT 31 mmol/L (21-32); TOSPEC ART
[2017-02-05 13:04] LABS: ART BE ISTAT 12 mmol/L (0-3); ART GLUC ISTAT 100 mg/dL (70-99); ART HCO3 ISTAT 32 mmol/L (21-28); ART HCT ISTAT 24 % (37-52); ART HGB ISTAT 8.2 g/dL (14-18); ART ION CA ISTAT 0.95 mmol/L (1.13-1.32); ART K ISTAT 3.8 mmol/L (3.5-5.0); ART NA ISTAT 136 mmol/L (135-145); ART PCO2 ISTAT 27 mmHg (35-45); ART PH ISTAT 7.68 (7.35-7.45); ART PO2 ISTAT 308 mmHg (75-100); ART SAT O2 SAT 100 % (95-99); ART TCO2 ISTAT 33 mmol/L (21-32); TOSPEC ART
[2017-02-05 13:04] LABS: FIO2 ISTAT 100; TOSPEC VEN; VEN BASE EXCESS ISTAT -1 mmol/L (0-3); VEN GLUC ISTAT 101 mg/dL (70-99); VEN HCO3 ISTAT 24 mmol/L (24-28); VEN HCT ISTAT 23 % (37-52); VEN HGB ISTAT 7.8 g/dL (14-18); VEN ION CA ISTAT 0.88 mmol/L (1.13-1.32); VEN K ISTAT 3.8 mmol/L (3.5-5.0); VEN NA ISTAT 134 mmol/L (135-145); VEN O2 ISTAT 47 mmHg (20-40); VEN PCO2 ISTAT 37 mmHg (41-51); VEN PH ISTAT 7.42 (7.32-7.42); VEN SO2 ISTAT 83 %; VEN TCO2 ISTAT 25 mmol/L (21-32)
[2017-02-05 13:04] LABS: FIO2 ISTAT 100; TOSPEC VEN; VEN BASE EXCESS ISTAT 3 mmol/L (0-3); VEN GLUC ISTAT 94 mg/dL (70-99); VEN HCO3 ISTAT 26 mmol/L (24-28); VEN HCT ISTAT 22 % (37-52); VEN HGB ISTAT 7.5 g/dL (14-18); VEN ION CA ISTAT 0.97 mmol/L (1.13-1.32); VEN K ISTAT 3.5 mmol/L (3.5-5.0); VEN NA ISTAT 137 mmol/L (135-145); VEN O2 ISTAT 34 mmHg (20-40); VEN PCO2 ISTAT 28 mmHg (41-51); VEN PH ISTAT 7.57 (7.32-7.42); VEN SO2 ISTAT 76 %; VEN TCO2 ISTAT 26 mmol/L (21-32)
[2017-02-05 13:04] LABS: ART BE ISTAT 4 mmol/L (0-3); ART GLUC ISTAT 101 mg/dL (70-99); ART HCO3 ISTAT 27 mmol/L (21-28); ART HCT ISTAT 22 % (37-52); ART HGB ISTAT 7.5 g/dL (14-18); ART ION CA ISTAT 1.45 mmol/L (1.13-1.32); ART K ISTAT 4.6 mmol/L (3.5-5.0); ART NA ISTAT 135 mmol/L (135-145); ART PCO2 ISTAT 38 mmHg (35-45); ART PH ISTAT 7.47 (7.35-7.45); ART PO2 ISTAT 286 mmHg (75-100); ART SAT O2 SAT 100 % (95-99); ART TCO2 ISTAT 29 mmol/L (21-32); TOSPEC ART
[2017-02-05 13:04] LABS: ART BE ISTAT 8 mmol/L (0-3); ART GLUC ISTAT 95 mg/dL (70-99); ART HCO3 ISTAT 30 mmol/L (21-28); ART HCT ISTAT 22 % (37-52); ART HGB ISTAT 7.5 g/dL (14-18); ART ION CA ISTAT 0.96 mmol/L (1.13-1.32); ART K ISTAT 3.7 mmol/L (3.5-5.0); ART NA ISTAT 136 mmol/L (135-145); ART PCO2 ISTAT 34 mmHg (35-45); ART PH ISTAT 7.56 (7.35-7.45); ART PO2 ISTAT 357 mmHg (75-100); ART SAT O2 SAT 100 % (95-99); ART TCO2 ISTAT 31 mmol/L (21-32); TOSPEC ART
[2017-02-05] MEDS ORDERED: ACETAMINOPHEN 650 MG SUPP.RECT. PR PRN (13:15)
[2017-02-05] MEDS ORDERED: CLEVIDIPINE BUTYRATE 100 ML IV PRN (13:15)
[2017-02-05] MEDS ORDERED: NITROGLYCERIN PREMIX 250 ML IV PRN (13:15)
[2017-02-05] MEDS ORDERED: AMIODARONE 150 MG in IV DEXTROSE 5% 100 ML IV PRN (13:15)
[2017-02-05] MEDS ORDERED: PROPOFOL 100 ML IV PRN (13:15)
[2017-02-05] MEDS ORDERED: AMIODARONE 900 MG in IV DEXTROSE 5% 500 ML IV PRN (13:15)
[2017-02-05] MEDS ORDERED: DEXTROSE 50% 25 GM / 50ML DISP.SYRIN. IV PRN (13:15)
[2017-02-05] MEDS ORDERED: BISACODYL 10 MG SUPP.RECT PR PRN (13:15)
[2017-02-05] MEDS ORDERED: MEPERIDINE PF 25 MG/ML VIAL. IV PRN (13:15)
[2017-02-05] MEDS ORDERED: MAGNESIUM SULFATE 1GM 100 ML IV PRN (13:15)
[2017-02-05] MEDS ORDERED: ASPIRIN 300 MG SUPP.RECT PR PRN (13:15)
[2017-02-05] MEDS ORDERED: INSULIN REGULAR VIAL 150 UNIT in 0.9 % SODIUM CHLORIDE 150ML 150 ML IV PRN (13:15)
[2017-02-05] MEDS ORDERED: ACETAMINOPHEN 325 MG TABLET. PO PRN (13:15)
--- NOTE | 2017-02-05 13:15 | PDOC ---
BRIEF OPERATIVE NOTE Date: Feb 05, 2017 Pre-Op Diagnosis CAD Acute HI less than 7 days Nl LV function Post-Op Diagnosis same Procedure Performed CABG X 5 with WHITEHEAD to LAD SVG to DX then to OM SVG to PDA then to PL branch Surgeon Brittney Holbrook MD Combining Machine Operator RANGEL Gomez Anesthesiologist Tod Anesthesia Type: General Blood Loss see perfusion record IV Fluid see anesthesia record Urine Output renal failure Pt Specimens Obtained none Findings good target sites and good conduit Pt off CPB without inotropic support Complications none noted ZUHAIR HOLBROOK MD Feb 05, 2017 13:15
[2017-02-05] MEDS ORDERED: VANCOMYCIN 1.5 GM in IV NORMAL SALINE 500ML BAG 500 ML IV SCH (13:30)
[2017-02-05] MEDS ORDERED: VECURONIUM BOLUS 10 MG VIAL. IV ONE ×2 (13:30→13:32)
--- NOTE | 2017-02-05 14:15 | RAD ---
Indication assess endotracheal tube placement. Single view of the chest was obtained at 1350 and is compared to a study approximately 45 minutes earlier. Postoperative changes are noted. Endotracheal tube has been repositioned and now has its tip well above the laura. There is some volume loss in the right upper lobe compatible with atelectasis given positioning of the tube on the previous exam. Left lung is clear. Nasogastric tube has been advanced relative to the previous study and now has its tip beyond the mid body of the stomach. The stomach, however, is somewhat distended with gas. Mediastinal and left chest tubes are noted. There is no pneumothorax. [place]-Caro catheter is unchanged in position and has its tip in the pulmonary outflow tract. IMPRESSION: Repositioning of the endotracheal tube. It is now appropriately positioned above the laura. Mildly atelectatic right upper lobe. Nasogastric tube now has its tip beyond the mid body of the stomach.
--- NOTE | 2017-02-05 14:16 | RAD ---
Indication assess nasogastric tube placement. Single view of the abdomen was obtained. A nasogastric tube is noted which has its tip near the antrum of the stomach. The stomach is moderately distended with gas despite positioning of the nasogastric tube. There are slight dilatation of several small bowel loops. This is nonspecific but may reflect mild ileus. IMPRESSION: NG tube with its tip in the antrum of the stomach
[2017-02-05 14:29] LABS: HEMOGLOBIN 8.7 g/dL (13.0-17.5); RED BLOOD COUNT 2.84 x10^6/uL (4.30-5.70); RED CELL DISTRIBUTION WIDTH 14.8 % (11.5-14.5); WHITE BLOOD COUNT 6.2 x10^3/uL (4.0-11.0)
[2017-02-05 14:40] LABS: CALCIUM 9.8 mg/dL (8.5-10.1); CREATININE 6.8 mg/dL (0.7-1.3); GFR 8.3; POTASSIUM 4.8 mmol/L (3.5-5.1)
[2017-02-05 14:43] LABS: MAGNESIUM 2.1 mg/dL (1.8-2.4)
--- NOTE | 2017-02-05 14:44 | EKG ---
[facility] [address] [place] [address] Test Date: 2017-02-05 Test Time: 14:43:36 Pat Name: IVORY OCONNOR Department: Room: 102 1 Gender: M [employer] System Specialist: : [id number] Requested By: ZUHAIR DÍAZ Order Number: [id number] Reading MD: Measurements Intervals Sherman Rate: 61 P: 64 OK: 166 QRS: 72 QRSD: 108 T: -38 QT: 458 QTc: 467 Interpretive Statements SINUS RHYTHM LOW LIMB LEAD VOLTAGE T ABNORMALITY IN ANTEROLATERAL LEADS INFEROLATERAL LEADS ABNORMAL ECG RI6.01 Compared to ECG 01/30/2017 06:52:35 T-wave abnormality now present
--- NOTE | 2017-02-05 15:29 | RAD ---
Portable chest compared to similar exam dated 01/31/2017 for OR, post CABG. Findings: Endotracheal tube is present approximately 1 cm above the laura. This is functional but should be repositioned by withdrawing 2 to 3 cm. [place]-Caro catheter is present with the distal tip in the main pulmonary artery. Left IJ Port-A-Cath is unchanged. An enteric tube is present in the distal esophagus. A mediastinal drain and 2 left chest tubes are noted. There is no pneumothorax. Mildly increased opacity of the right lung relative the left may represent mild asymmetric pulmonary edema, however no focal infiltrates are evident. Impression: 1. Post surgical changes as described, possibly with mildly asymmetric right pulmonary edema. 2. Lines and tubes as described. Consider advancement or withdrawal of the [place]-Caro catheter for optimal functionality as desired, and consider withdrawal of the endotracheal tube x 2 cm.
--- NOTE | 2017-02-05 16:34 | PDOC ---
PROGRESS NOTES Subjective Subjective PT INTUBATED Objective Objective Vital Signs Date Time Temp Pulse Resp B/P Pulse Ox O2 Delivery O2 Flow Rate FiO2 02/05/17 16:00 Mechanical Ventilator 2.0 02/05/17 16:00 60 120/55 02/05/17 13:25 98 02/05/17 07:15 97.3 18 97.3 Intake and Output 02/05/17 07:00 Intake Total 680 ml Balance 680 ml Intake Oral 680 ml # Voids 2 Physical Exam Physical Exam MOVING AIR WELL (+) PERICARDIAL RUB NO EDEMA Assessment Assessment PT TOLERATED SURGERY WELL Problems Medical Problems: (1) Flank pain Status: Acute (2) Pancreatitis Status: Acute (3) Unstable angina pectoris Status: Acute Plan Plan of Care AGREE WITH PRESENT PLAN Comment Labs Laboratory Tests Test 02/04/17 04:45 02/04/17 11:10 02/05/17 03:35 02/05/17 08:30 White Blood Count 7.2x10^3/uL (4.0-11.0) 5.2x10^3/uL (4.0-11.0) Red Blood Count 2.91x10^6/uL (4.30-5.70) 2.81x10^6/uL (4.30-5.70) Hemoglobin 9.1g/dL (13.0-17.5) 8.6g/dL (13.0-17.5) Hematocrit 26.9% (39.0-53.0) 26.2% (39.0-53.0) Mean Corpuscular Volume 93fL (79-100) 93fL (79-100) Mean Corpuscular Hemoglobin 31pg (25-35) 31pg (25-35) Mean Corpuscular Hemoglobin Concent 34g/dL (31-37) 33g/dL (31-37) Red Cell Distribution Width 13.9% (11.5-14.5) 13.9% (11.5-14.5) Platelet Count 169x10^3/uL (140-400) 180x10^3/uL (140-400) Neutrophils (%) (Auto) 77% (31-73) 67% (31-73) Lymphocytes (%) (Auto) 9% (24-48) 16% (24-48) Monocytes (%) (Auto) 12% (0-9) 15% (0-9) Eosinophils (%) (Auto) 2% (0-3) 2% (0-3) Basophils (%) (Auto) 1% (0-3) 1% (0-3) Neutrophils # (Auto) 5.6x10^3uL (1.8-7.7) 3.4x10^3uL (1.8-7.7) Lymphocytes # (Auto) 0.6x10^3/uL (1.0-4.8) 0.8x10^3/uL (1.0-4.8) Monocytes # (Auto) 0.8x10^3/uL (0.0-1.1) 0.8x10^3/uL (0.0-1.1) Eosinophils # (Auto) 0.1x10^3/uL (0.0-0.7) 0.1x10^3/uL (0.0-0.7) Basophils # (Auto) 0.1x10^3/uL (0.0-0.2) 0.0x10^3/uL (0.0-0.2) Sodium Level 140mmol/L (136-145) 141mmol/L (136-145) Potassium Level 4.5mmol/L (3.5-5.1) 4.0mmol/L (3.5-5.1) Chloride Level 100mmol/L (98-107) 101mmol/L (98-107) Carbon Dioxide Level 28mmol/L (21-32) 32mmol/L (21-32) Anion Gap 12 (6-14) 8 (6-14) Blood Urea Nitrogen 34mg/dL (8-26) 21mg/dL (8-26) Creatinine 8.9mg/dL (0.7-1.3) 6.3mg/dL (0.7-1.3) Estimated GFR (Cockcroft-Gault) 6.1 9.1 Glucose Level 100mg/dL (70-99) 94mg/dL (70-99) 100mg/dL (70-99) Calcium Level 7.7mg/dL (8.5-10.1) 8.4mg/dL (8.5-10.1) Heparin Anti-Xa Act, Unfractionated 0.17IU/mL (0.30-0.70) Phosphorus Level 4.2mg/dL (2.6-4.7) Magnesium Level 1.7mg/dL (1.8-2.4) Albumin 2.8g/dL (3.4-5.0) Bedside Hemoglobin (Calculated) 8.2g/dL (14-18) Bedside Hematocrit 24% (37-52) Bedside Arterial pH 7.68 (7.35-7.45) Bedside Arterial pCO2 27mmHg (35-45) Bedside Arterial pO2 308mmHg (75-100) Bedside Arterial HCO3 32mmol/L (21-28) Bedside Arterial Total CO2 33mmol/L (21-32) Arterial Bld O2 Saturation (Measur) 100% (95-99) Bedside Arterial Blood Base Excess 12mmol/L (0-3) Bedside FiO2 100.0 Bedside Sodium 136mmol/L (135-145) Bedside Potassium 3.8mmol/L (3.5-5.0) Bedside Ionized Calcium (Mac) 0.95mmol/L (1.13-1.32) Test 02/05/17 08:46 02/05/17 09:21 02/05/17 09:48 02/05/17 10:17 Bedside Hematocrit 22% (37-52) 22% (37-52) 23% (37-52) 25% (37-52) Bedside Venous pH 7.57 (7.32-7.42) 7.42 (7.32-7.42) Bedside Venous pCO2 28mmHg (41-51) 37mmHg (41-51) Bedside Venous pO2 34mmHg (20-40) 47mmHg (20-40) Bedside Venous HCO3 26mmol/L (24-28) 24mmol/L (24-28) Bedside Venous Blood Total CO2 26mmol/L (21-32) 25mmol/L (21-32) Bedside Venous Blood O2 Saturation 76% 83% Bedside Venous Blood Base Excess 3mmol/L (0-3) -1mmol/L (0-3) POC Venous Hemoglobin (Calc) 7.5g/dL (14-18) 7.8g/dL (14-18) Bedside FiO2 100 100.0 100 100.0 Bedside Sodium 137mmol/L (135-145) 136mmol/L (135-145) 134mmol/L (135-145) 136mmol/L (135-145) Bedside Potassium 3.5mmol/L (3.5-5.0) 3.7mmol/L (3.5-5.0) 3.8mmol/L (3.5-5.0) 4.6mmol/L (3.5-5.0) Glucose Level 94mg/dL (70-99) 95mg/dL (70-99) 101mg/dL (70-99) 97mg/dL (70-99) Bedside Ionized Calcium (Mac) 0.97mmol/L (1.13-1.32) 0.96mmol/L (1.13-1.32) 0.88mmol/L (1.13-1.32) 0.93mmol/L (1.13-1.32) Bedside Hemoglobin (Calculated) 7.5g/dL (14-18) 8.5g/dL (14-18) Bedside Arterial pH 7.56 (7.35-7.45) 7.41 (7.35-7.45) Bedside Arterial pCO2 34mmHg (35-45) 47mmHg (35-45) Bedside Arterial pO2 357mmHg (75-100) 501mmHg (75-100) Bedside Arterial HCO3 30mmol/L (21-28) 30mmol/L (21-28) Bedside Arterial Total CO2 31mmol/L (21-32) 31mmol/L (21-32) Arterial Bld O2 Saturation (Measur) 100% (95-99) 100% (95-99) Bedside Arterial Blood Base Excess 8mmol/L (0-3) 5mmol/L (0-3) Test 02/05/17 10:47 02/05/17 11:17 02/05/17 11:49 02/05/17 12:14 Bedside Hemoglobin (Calculated) 7.8g/dL (14-18) 8.5g/dL (14-18) 7.8g/dL (14-18) 7.5g/dL (14-18) Bedside Hematocrit 23% (37-52) 25% (37-52) 23% (37-52) 22% (37-52) Bedside Arterial pH 7.46 (7.35-7.45) 7.46 (7.35-7.45) 7.42 (7.35-7.45) 7.47 (7.35-7.45) Bedside Arterial pCO2 44mmHg (35-45) 40mmHg (35-45) 43mmHg (35-45) 38mmHg (35 -45) Bedside Arterial pO2 377mmHg (75-100) 327mmHg (75-100) 318mmHg (75-100) 286mmHg (75-100) Bedside Arterial HCO3 31mmol/L (21-28) 28mmol/L (21-28) 28mmol/L (21-28) 27mmol/L (21-28) Bedside Arterial Total CO2 32mmol/L (21-32) 30mmol/L (21-32) 30mmol/L (21-32) 29mmol/L (21-32) Arterial Bld O2 Saturation (Measur) 100% (95-99) 100% (95-99) 100% (95-99) 100% (95-99) Bedside Arterial Blood Base Excess 7mmol/L (0-3) 5mmol/L (0-3) 4mmol/L (0-3) 4mmol/L (0-3) Bedside FiO2 100.0 80.0 80.0 100.0 Bedside Sodium 136mmol/L (135-145) 136mmol/L (135-145) 135mmol/L (135-145) 135mmol/L (135-145) Bedside Potassium 4.7mmol/L (3.5-5.0) 4.9mmol/L (3.5-5.0) 4.9mmol/L (3.5-5.0) 4.6mmol/L (3.5-5.0) Glucose Level 103mg/dL (70-99) 108mg/dL (70-99) 107mg/dL (70-99) 101mg/dL (70-99) Bedside Ionized Calcium (Mac) 0.92mmol/L (1.13-1.32) 0.93mmol/L (1.13-1.32) 0.93mmol/L (1.13-1.32) 1.45mmol/L (1.13-1.32) Test 02/05/17 12:16 02/05/17 14:20 White Blood Count 4.9x10^3/uL (4.0-11.0) 6.2x10^3/uL (4.0-11.0) Hemoglobin 7.3g/dL (13.0-17.5) 8.7g/dL (13.0-17.5) Hematocrit 21.9% (39.0-53.0) 26.0% (39.0-53.0) Platelet Count 90x10^3/uL (140-400) 135x10^3/uL (140-400) Prothrombin Time 17.8SEC (11.7-14.0) Prothromb Time International Ratio 1.6 (0.8-1.1) Activated Partial Thromboplast Time 42SEC (24-38) Fibrinogen 392mg/dL (200-440) Red Blood Count 2.84x10^6/uL (4.30-5.70) Mean Corpuscular Volume 92fL (79-100) Mean Corpuscular Hemoglobin 31pg (25-35) Mean Corpuscular Hemoglobin Concent 33g/dL (31-37) Red Cell Distribution Width 14.8% (11.5-14.5) Sodium Level 137mmol/L (136-145) Potassium Level 4.8mmol/L (3.5-5.1) Chloride Level 100mmol/L (98-107) Carbon Dioxide Level 22mmol/L (21-32) Anion Gap 15 (6-14) Blood Urea Nitrogen 22mg/dL (8-26) Creatinine 6.8mg/dL (0.7-1.3) Estimated GFR (Cockcroft-Gault) 8.3 Glucose Level 136mg/dL (70-99) Glucose (Fingerstick) 127mg/dL (70-99) Calcium Level 9.8mg/dL (8.5-10.1) Magnesium Level 2.1mg/dL (1.8-2.4) Laboratory Tests Test 02/05/17 03:35 02/05/17 08:30 02/05/17 08:46 02/05/17 09:21 White Blood Count 5.2x10^3/uL (4.0-11.0) Red Blood Count 2.81x10^6/uL (4.30-5.70) Hemoglobin 8.6g/dL (13.0-17.5) Hematocrit 26.2% (39.0-53.0) Mean Corpuscular Volume 93fL (79-100) Mean Corpuscular Hemoglobin 31pg (25-35) Mean Corpuscular Hemoglobin Concent 33g/dL (31-37) Red Cell Distribution Width 13.9% (11.5-14.5) Platelet Count 180x10^3/uL (140-400) Neutrophils (%) (Auto) 67% (31-73) Lymphocytes (%) (Auto) 16% (24-48) Monocytes (%) (Auto) 15% (0-9) Eosinophils (%) (Auto) 2% (0-3) Basophils (%) (Auto) 1% (0-3) Neutrophils # (Auto) 3.4x10^3uL (1.8-7.7) Lymphocytes # (Auto) 0.8x10^3/uL (1.0-4.8) Monocytes # (Auto) 0.8x10^3/uL (0.0-1.1) Eosinophils # (Auto) 0.1x10^3/uL (0.0-0.7) Basophils # (Auto) 0.0x10^3/uL (0.0-0.2) Sodium Level 141mmol/L (136-145) Potassium Level 4.0mmol/L (3.5-5.1) Chloride Level 101mmol/L (98-107) Carbon Dioxide Level 32mmol/L (21-32) Anion Gap 8 (6-14) Blood Urea Nitrogen 21mg/dL (8-26) Creatinine 6.3mg/dL (0.7-1.3) Estimated GFR (Cockcroft-Gault) 9.1 Glucose Level 94mg/dL (70-99) 100mg/dL (70-99) 94mg/dL (70-99) 95mg/dL (70-99) Calcium Level 8.4mg/dL (8.5-10.1) Phosphorus Level 4.2mg/dL (2.6-4.7) Magnesium Level 1.7mg/dL (1.8-2.4) Albumin 2.8g/dL (3.4-5.0) Bedside Hemoglobin (Calculated) 8.2g/dL (14-18) 7.5g/dL (14-18) Bedside Hematocrit 24% (37-52) 22% (37-52) 22% (37-52) Bedside Arterial pH 7.68 (7.35-7.45) 7.56 (7.35-7.45) Bedside Arterial pCO2 27mmHg (35-45) 34mmHg (35-45) Bedside Arterial pO2 308mmHg (75-100) 357mmHg (75-100) Bedside Arterial HCO3 32mmol/L (21-28) 30mmol/L (21-28) Bedside Arterial Total CO2 33mmol/L (21-32) 31mmol/L (21-32) Arterial Bld O2 Saturation (Measur) 100% (95-99) 100% (95-99) Bedside Arterial Blood Base Excess 12mmol/L (0-3) 8mmol/L (0-3) Bedside FiO2 100.0 100 100.0 Bedside Sodium 136mmol/L (135-145) 137mmol/L (135-145) 136mmol/L (135-145) Bedside Potassium 3.8mmol/L (3.5-5.0) 3.5mmol/L (3.5-5.0) 3.7mmol/L (3.5-5.0) Bedside Ionized Calcium (Mac) 0.95mmol/L (1.13-1.32) 0.97mmol/L (1.13-1.32) 0.96mmol/L (1.13-1.32) Bedside Venous pH 7.57 (7.32-7.42) Bedside Venous pCO2 28mmHg (41-51) Bedside Venous pO2 34mmHg (20-40) Bedside Venous HCO3 26mmol/L (24-28) Bedside Venous Blood Total CO2 26mmol/L (21-32) Bedside Venous Blood O2 Saturation 76% Bedside Venous Blood Base Excess 3mmol/L (0-3) POC Venous Hemoglobin (Calc) 7.5g/dL (14-18) Test 3/21/17 09:48 02/05/17 10:17 02/05/17 10:47 02/05/17 11:17 Bedside Hematocrit 23% (37-52) 25% (37-52) 23% (37-52) 25% (37-52) Bedside Venous pH 7.42 (7.32-7.42) Bedside Venous pCO2 37mmHg (41-51) Bedside Venous pO2 47mmHg (20-40) Bedside Venous HCO3 24mmol/L (24-28) Bedside Venous Blood Total CO2 25mmol/L (21-32) Bedside Venous Blood O2 Saturation 83% Bedside Venous Blood Base Excess -1mmol/L (0-3) POC Venous Hemoglobin (Calc) 7.8g/dL (14-18) Bedside FiO2 100 100.0 100.0 80.0 Bedside Sodium 134mmol/L (135-145) 136mmol/L (135-145) 136mmol/L (135-145) 136mmol/L (135-145) Bedside Potassium 3.8mmol/L (3.5-5.0) 4.6mmol/L (3.5-5.0) 4.7mmol/L (3.5-5.0) 4.9mmol/L (3.5-5.0) Glucose Level 101mg/dL (70-99) 97mg/dL (70-99) 103mg/dL (70-99) 108mg/dL (70-99) Bedside Ionized Calcium (Mac) 0.88mmol/L (1.13-1.32) 0.93mmol/L (1.13-1.32) 0.92mmol/L (1.13-1.32) 0.93mmol/L (1.13-1.32) Bedside Hemoglobin (Calculated) 8.5g/dL (14-18) 7.8g/dL (14-18) 8.5g/dL (14-18) Bedside Arterial pH 7.41 (7.35-7.45) 7.46 (7.35-7.45) 7.46 (7.35-7.45) Bedside Arterial pCO2 47mmHg (35-45) 44mmHg (35-45) 40mmHg (35-45) Bedside Arterial pO2 501mmHg (75-100) 377mmHg (75-100) 327mmHg (75-100) Bedside Arterial HCO3 30mmol/L (21-28) 31mmol/L (21-28) 28mmol/L (21-28) Bedside Arterial Total CO2 31mmol/L (21-32) 32mmol/L (21-32) 30mmol/L (21-32) Arterial Bld O2 Saturation (Measur) 100% (95-99) 100% (95-99) 100% (95-99) Bedside Arterial Blood Base Excess 5mmol/L (0-3) 7mmol/L (0-3) 5mmol/L (0-3) Test 02/05/17 11:49 02/05/17 12:14 02/05/17 12:16 02/05/17 14:20 Bedside Hemoglobin (Calculated) 7.8g/dL (14-18) 7.5g/dL (14-18) Bedside Hematocrit 23% (37-52) 22% (37-52) Bedside Arterial pH 7.42 (7.35-7.45) 7.47 (7.35-7.45) Bedside Arterial pCO2 43mmHg (35-45) 38mmHg (35-45) Bedside Arterial pO2 318mmHg (75-100) 286mmHg (75-100) Bedside Arterial HCO3 28mmol/L (21-28) 27mmol/L (21-28) Bedside Arterial Total CO2 30mmol/L (21-32) 29mmol/L (21-32) Arterial Bld O2 Saturation (Measur) 100% (95-99) 100% (95-99) Bedside Arterial Blood Base Excess 4mmol/L (0-3) 4mmol/L (0-3) Bedside FiO2 80.0 100.0 Bedside Sodium 135mmol/L (135-145) 135mmol/L (135-145) Bedside Potassium 4.9mmol/L (3.5-5.0) 4.6mmol/L (3.5-5.0) Glucose Level 107mg/dL (70-99) 101mg/dL (70-99) 136mg/dL (70-99) Bedside Ionized Calcium (Mac) 0.93mmol/L (1.13-1.32) 1.45mmol/L (1.13-1.32) White Blood Count 4.9x10^3/uL (4.0-11.0) 6.2x10^3/uL (4.0-11.0) Hemoglobin 7.3g/dL (13.0-17.5) 8.7g/dL (13.0-17.5) Hematocrit 21.9% (39.0-53.0) 26.0% (39.0-53.0) Platelet Count 90x10^3/uL (140-400) 135x10^3/uL (140-400) Prothrombin Time 17.8SEC (11.7-14.0) Prothromb Time International Ratio 1.6 (0.8-1.1) Activated Partial Thromboplast Time 42SEC (24-38) Fibrinogen 392mg/dL (200-440) Red Blood Count 2.84x10^6/uL (4.30-5.70) Mean Corpuscular Volume 92fL (79-100) Mean Corpuscular Hemoglobin 31pg (25-35) Mean Corpuscular Hemoglobin Concent 33g/dL (31-37) Red Cell Distribution Width 14.8% (11.5-14.5) Sodium Level 137mmol/L (136-145) Potassium Level 4.8mmol/L (3.5-5.1) Chloride Level 100mmol/L (98-107) Carbon Dioxide Level 22mmol/L (21-32) Anion Gap 15 (6-14) Blood Urea Nitrogen 22mg/dL (8-26) Creatinine 6.8mg/dL (0.7-1.3) Estimated GFR (Cockcroft-Gault) 8.3 Glucose (Fingerstick) 127mg/dL (70-99) Calcium Level 9.8mg/dL (8.5-10.1) Magnesium Level 2.1mg/dL (1.8-2.4) Microbiology 02/03/17 Throat Culture - Final, Complete 02/03/17 - Final, Complete Medications Current Medications Hydromorphone HCl (Dilaudid) 1 mg 1X ONCE IV Last administered on 01/28/17t 23 :57; Start 01/28/17 at 23:30; Stop 01/28/17 at 23:31; Status DC Ondansetron HCl 4 mg 4 mg 1X ONCE IV Last administered on 01/28/17 23:57; Start 01/28/17 at 23:30; Stop 01/28/17 at 23:31; Status DC Sodium Chloride (Iv Sodium Chloride 0.9% 500ml Bag) 500 ml @ 0 mls/hr 1X ONCE IV Last administered on 01/28/17 23:39; Start 01/28/17 at 23:30; Stop at 23:31; Status DC Diphenhydramine HCl (Benadryl) 50 mg 1X ONCE IVP Last administered on 00:29; Start 01/29/17 at 00:30; Stop 01/29/17 at 00:31; Status DC Diphenhydramine HCl (Benadryl) 50 mg STK-MED ONCE .ROUTE ; Start 01/29/17 at 00: 26; Stop 01/29/17 at 00:27; Status DC Morphine Sulfate 4 mg 1X ONCE IV Last administered on 01/29/17 03:55; Start 01/29/17 at 02:15; Stop 01/29/17 at 02:16; Status DC Ondansetron HCl (Zofran) 4 mg PRN Q8HRS PRN IV NAUSEA/VOMITING; Start 01/29/17 at 03:00; Stop 01/30/17 at 02:59; Status DC Morphine Sulfate 4 mg 4 mg PRN Q2HR PRN IV PAIN Last administered on 01/29/17 09:59; Start 01/29/17 at 03:00; Stop 01/29/17 at 11:47; Status DC Sodium Chloride (Iv Sodium Chloride 0.9% 1000ml Bag) 1,000 ml @ 50 mls/hr Q20H IV Last administered on 01/30/17 07:28; Start 01/29/17 at 02:12; Stop at 02:11; Status DC Alprazolam (Xanax) 0.5 mg PRN Q6HRS PRN PO ANXIETY / AGITATION Last administered on 02/03/17 07:45; Start 01/29/17 at 11:30; Stop 02/03/17 at 12:13 ; Status DC Amlodipine Besylate (Norvasc) 10 mg BID PO Last administered on 02/04/17 20:55 ; Start 01/29/17 at 12:00 Aspirin (Children'S Aspirin) 324 mg DAILY PO ; Start 01/29/17 at 12:00; Stop at 18:32; Status DC Calcium Carbonate/ Glycine (Tums) 800 mg TIDAC PO Last administered on 17:19; Start 01/29/17 at 11:30 Clonidine HCl (Catapres) 0.3 mg DAILY PO Last administered on 02/04/17 14:59; Start 01/30/17 at 09:00 Clopidogrel Bisulfate (Plavix) 75 mg DAILY PO ; Start 01/29/17 at 12:00; Stop at 09:45; Status DC Vitamin B Complex/ Vitamin C (Nephro-Chilo) 1 tab DAILY PO Last administered on 02/04/17 14:59; Start 01/29/17 at 12:00 Furosemide (Lasix) 80 mg [id number] PO Last administered on 02/04/17 15:11; Start 01/29/17 at 14:00 Acetaminophen/ Hydrocodone Bitart (Lortab 5/325) 1 tab PRN Q6HRS PRN PO PAIN; Start 01/29/17 at 11:30; Stop 01/29/17 at 18:58; Status DC Isosorbide Mononitrate (Imdur) 30 mg DAILY PO Last administered on 02/04/17 15 :01; Start 01/29/17 at 12:00 Paroxetine HCl (Paxil) 40 mg DAILY PO Last administered on 02/04/17 15:00; Start 01/29/17 at 12:00 Tamsulosin HCl (Flomax) 0.4 mg QHS PO Last administered on 02/04/17 20:54; Start 01/29/17 at 21:00 Hydralazine HCl (Apresoline) 100 mg TID PO Last administered on 02/04/17 20:54 ; Start 01/29/17 at 14:00 Losartan Potassium (Cozaar) 100 mg QHS PO Last administered on 02/04/17 20:56 ; Start 01/29/17 at 21:00 Metoprolol Tartrate (Lopressor) 100 mg BID PO Last administered on 02/05/17 06 :34; Start 01/29/17 at 12:00; Stop 02/05/17 at 13:28; Status DC Pantoprazole Sodium (Protonix) 40 mg DAILYAC PO Last administered on 02/04/17 15:01; Start 01/29/17 at 12:00 Darbepoetin Percy (Aranesp) 60 mcg [id number] SQ Last administered on 02/02/17 21 :15; Start 02/02/17 at 21:00 Morphine Sulfate 6 mg 6 mg PRN Q2HR PRN IV PAIN Last administered on 01/30/17 19:22; Start 01/29/17 at 11:45; Stop 02/01/17 at 15:20; Status DC Sodium Chloride (Iv Sodium Chloride 0.9% 1000ml Bag) 1,000 ml @ 1,000 mls/hr Q1H PRN IV hypotension; Start 01/29/17 at 12:55; Stop 01/29/17 at 18:54; Status DC Diphenhydramine HCl (Benadryl) 25 mg 1X PRN PRN IV ITCHING Last administered on 01/29/17 19:12; Start 01/29/17 at 13:00; Stop 01/30/17 at 12:59; Status DC Diphenhydramine HCl (Benadryl) 25 mg 1X PRN PRN IV ITCHING Last administered on 01/29/17 13:16; Start 01/29/17 at 13:00; Stop 01/30/17 at 12:59; Status DC Info (PHARMACY MONITORING -- do not chart) 1 each PRN DAILY PRN MC SEE COMMENTS ; Start 01/29/17 at 13:00; Status UNV Info (PHARMACY MONITORING -- do not chart) 1 each PRN DAILY PRN MC SEE COMMENTS ; Start 01/29/17 at 13:00; Stop 02/03/17 at 09:04; Status DC Nitroglycerin (Nitrostat) 0.4 mg STK-MED ONCE SL ; Start 01/29/17 at 16:55; Stop 01/29/17 at 16:56; Status DC Heparin Sodium (Porcine) 4000 unit 4,000 unit 1X ONCE IV Last administered on 01/29/17 17:37; Start 01/29/17 at 17:30; Stop 01/29/17 at 17:31; Status DC Heparin Sodium/ Sodium Chloride 500 ml @ As Directed STK-MED ONCE .ROUTE ; Start 01/29/17 at 17:54; Stop 01/29/17 at 17:55; Status DC Lidocaine HCl 20 ml STK-MED ONCE .ROUTE ; Start 01/29/17 at 17:54; Stop at 17:55; Status DC Iodixanol (Visipaque 320) 100 ml STK-MED ONCE .ROUTE ; Start 01/29/17 at 17:54; Stop 01/29/17 at 17:55; Status DC Metoprolol Tartrate (Lopressor) 5 mg STK-MED ONCE .ROUTE ; Start 01/29/17 at 18: 05; Stop 01/29/17 at 18:06; Status DC Fentanyl Citrate (Fentanyl 2ml Vial) 100 mcg STK-MED ONCE .ROUTE ; Start at 18:05; Stop 01/29/17 at 18:06; Status DC Midazolam HCl 2 mg 2 mg STK-MED ONCE .ROUTE ; Start 01/29/17 at 18:05; Stop at 18:06; Status DC Heparin Sodium/ Dextrose 500 ml @ As Directed STK-MED ONCE IV ; Start 01/29/17 at 18:18; Stop 01/29/17 at 18:19; Status DC Heparin Sodium (Porcine) 10,000 unit STK-MED ONCE .ROUTE ; Start 01/29/17 at 18: 18; Stop 01/29/17 at 18:19; Status DC Metoprolol Tartrate (Lopressor) 5 mg STK-MED ONCE .ROUTE ; Start 01/29/17 at 18: 25; Stop 01/29/17 at 18:26; Status DC Heparin Sodium/ Sodium Chloride 1,000 unit 1X ONCE IART Last administered on 18:51; Start 01/29/17 at 18:45; Stop 01/29/17 at 18:53; Status DC Heparin Sodium/ Sodium Chloride 1,000 unit 1X ONCE IART Last administered on 18:51; Start 01/29/17 at 18:45; Stop 01/29/17 at 18:53; Status DC Midazolam HCl (Versed) 1 mg 1X ONCE IV Last administered on 01/29/17t 18:53; Start 01/29/17 at 18:45; Stop 01/29/17 at 18:53; Status DC Fentanyl Citrate (Fentanyl 2ml Vial) 50 mcg 1X ONCE IV Last administered on 18:53; Start 01/29/17 at 18:45; Stop 01/29/17 at 18:53; Status DC Iodixanol (Visipaque 320) 105 ml 1X ONCE IART Last administered on 01/29/17 18:52; Start 01/29/17 at 18:45; Stop 01/29/17 at 18:53; Status DC Heparin Sodium (Porcine) 4000 unit 4,000 unit 1X ONCE IV Last administered on 01/29/17 18:53; Start 01/29/17 at 18:45; Stop 01/29/17 at 18:53; Status DC Heparin Sodium/ Dextrose 500 ml @ 20 mls/hr CONT PRN IV SEE I/O RECORD; Start 01/29/17 at 18:24; Stop 01/30/17 at 14:01; Status DC Metoprolol Tartrate (Lopressor) 10 mg 1X ONCE IVP Last administered on 18:52; Start 01/29/17 at 18:45; Stop 01/29/17 at 18:53; Status DC Lidocaine HCl 10 ml 1X ONCE IJ Last administered on 01/29/17 18:52; Start at 18:45; Stop 01/29/17 at 18:53; Status DC Sodium Chloride (Normal Saline Flush) 3 ml QSHIFT PRN IV AFTER MEDS AND BLOOD DRAWS; Start 01/29/17 at 18:45 Docusate Sodium (Colace) 100 mg BID PO Last administered on 02/04/17 20:54; Start 01/29/17 at 21:00 Fentanyl Citrate (Fentanyl 2ml Vial) 50 mcg PRN Q1HR PRN IV SEVERE PAIN Last administered on 01/29/17 23:25; Start 01/29/17 at 18:45 Cyclobenzaprine HCl (Flexeril) 10 mg PRN TID PRN PO MUSCLE SPASMS Last administered on 01/30/17 05:22; Start 01/29/17 at 18:45 Ondansetron HCl (Zofran) 4 mg PRN Q6HRS PRN IV NAUSEA/VOMITING; Start 01/29/17 at 18:45; Stop 02/05/17 at 13:28; Status DC Nitroglycerin (Nitrostat) 0.4 mg PRN Q5MIN PRN SL CHEST PAIN; Start 01/29/17 at 18:45 Acetaminophen/ Hydrocodone Bitart (Lortab 5/325) 1 tab PRN Q4HRS PRN PO MILD PAIN Last administered on 02/04/17 17:16; Start 01/29/17 at 18:45 Diltiazem HCl 5 mg 5 mg 1X ONCE IVP Last administered on 01/29/17 19:23; Start 01/29/17 at 19:15; Stop 01/29/17 at 19:18; Status DC Diltiazem HCl/ Dextrose (Cardizem) 125 ml @ 0 mls/hr CONT PRN IV SEE I/O RECORD ; Start 01/29/17 at 19:15; Stop 02/03/17 at 12:13; Status DC Diphenhydramine HCl (Benadryl) 50 mg PRN Q8HRS PRN IVP ITCHING Last administered on 02/02/17 09:41; Start 01/29/17 at 19:15; Stop 02/03/17 at 09:05 ; Status DC Nitroglycerin (Nitrostat) 0.4 mg STK-MED ONCE SL ; Start 01/29/17 at 17:00; Stop 01/30/17 at 08:02; Status DC Info (Anti-Coagulation Monitoring By Pharmacy) 1 each PRN DAILY PRN MC SEE COMMENTS Last administered on 02/04/17 09:51; Start 01/30/17 at 10:45; Stop at 18:43; Status DC Heparin Sodium (Porcine) 3000 unit 3,000 unit 1X ONCE IV Last administered on 01/30/17 17:36; Start 01/30/17 at 18:00; Stop 01/30/17 at 18:01; Status DC Heparin Sodium/ Dextrose 500 ml @ 24 mls/hr CONT PRN IV SEE I/O RECORD Last administered on 02/03/17 05:47; Start 01/30/17 at 18:00; Stop 02/04/17 at 18:41 ; Status DC Sodium Chloride (Iv Sodium Chloride 0.9% 1000ml Bag) 1,000 ml @ 50 mls/hr Q20H IV Last administered on 01/31/17 23:30; Start 01/31/17 at 02:45; Stop at 12:13; Status DC Dextrose 25 gm 1X ONCE IV Last administered on 01/31/17 06:05; Start at 06:30; Stop 01/31/17 at 06:31; Status DC Insulin Human Regular (Novolin R Vial) 10 unit 1X ONCE IV Last administered on 01/31/17 06:09; Start 01/31/17 at 06:30; Stop 01/31/17 at 06:31; Status DC Dextrose 25 gm 25 gm 1X ONCE IV Last administered on 01/31/17 09:04; Start at 09:00; Stop 01/31/17 at 09:03; Status DC Sodium Chloride 1,000 ml @ 1,000 mls/hr Q1H PRN IV hypotension; Start 01/31/17 at 09:28; Stop 01/31/17 at 15:27; Status DC Albumin Human (Albuminar) 200 ml @ 200 mls/hr 1X PRN PRN IV Hypotension; Start 01/31/17 at 09:30; Stop 01/31/17 at 15:29; Status DC Acetaminophen (Tylenol) 500 mg 1X PRN PRN PO MILD PAIN / TEMP; Start 01/31/17 at 09:30; Stop 02/01/17 at 09:29; Status DC Diphenhydramine HCl (Benadryl) 25 mg 1X PRN PRN IV ITCHING Last administered on 01/31/17 18:05; Start 01/31/17 at 09:30; Stop 02/01/17 at 09:29; Status DC Diphenhydramine HCl (Benadryl) 25 mg 1X PRN PRN IV ITCHING; Start 01/31/17 at 09:30; Stop 02/01/17 at 09:29; Status DC Info (PHARMACY MONITORING -- do not chart) 1 each PRN DAILY PRN MC SEE COMMENTS ; Start 01/31/17 at 09:30; Status UNV Diphenhydramine HCl (Benadryl) 50 mg PRN Q6HRS PRN IVP ITCHING Last administered on 02/04/17 23:01; Start 02/01/17 at 15:15 Fentanyl Citrate (Fentanyl 2ml Vial) 25 mcg PRN Q4HRS PRN IV MODERATE PAIN; Start 02/01/17 at 15:15 Diphenhydramine HCl (Benadryl) 25 mg 1X PRN PRN IV ITCHING; Start 02/02/17 at 09:30; Stop 02/03/17 at 09:29; Status DC Info (PHARMACY MONITORING -- do not chart) 1 each PRN DAILY PRN MC SEE COMMENTS ; Start 02/02/17 at 09:30; Stop 02/03/17 at 09:05; Status DC Info (PHARMACY MONITORING -- do not chart) 1 each PRN DAILY PRN MC SEE COMMENTS ; Start 02/02/17 at 09:30; Status Cancel Throat Lozenges (Cepacol Sore Throat Lozenge) 1 estelita PRN Q2HRS PRN PO SORE THROAT Last administered on 02/03/17 20:49; Start 02/03/17 at 07:15; Stop 02/05 at 13:28; Status DC Alprazolam (Xanax) 0.25 mg PRN Q6HRS PRN PO ANXIETY / AGITATION, 1ST CHOIC Last administered on 02/03/17 14:15; Start 02/03/17 at 12:15 Alprazolam 0.5 mg 0.5 mg PRN Q6HRS PRN PO ANXIETY / AGITATION, 2ND CHOIC Last administered on 02/04/17 23:00; Start 02/03/17 at 12:30 Vancomycin HCl 250 ml @ 250 mls/hr 1X PREOP ONCE IV Last administered on 02/05 08:33; Start 02/05/17 at 06:00; Stop 02/05/17 at 06:59; Status DC Ondansetron HCl (Zofran) 4 mg PRN Q6HRS PRN IV Nausea; Start 02/05/17 at 07:00 ; Stop 02/05/17 at 13:28; Status DC Fentanyl Citrate (Fentanyl 2ml Vial) 25 mcg PRN Q5MIN PRN IV MILD PAIN; Start 02/05/17 at 07:00; Stop 02/06/17 at 06:59 Fentanyl Citrate (Fentanyl 2ml Vial) 50 mcg PRN Q5MIN PRN IV MODERATE PAIN; Start 02/05/17 at 07:00; Stop 02/06/17 at 06:59 Morphine Sulfate 1 mg 1 mg PRN Q10MIN PRN IV SEVERE PAIN; Start 02/05/17 at 07: 00; Stop 02/06/17 at 06:59 Lactated Ringer's (Iv Lactated Ringers) 1,000 ml @ 0 mls/hr Q0M IV Last administered on 02/05/17 07:32; Start 02/05/17 at 07:00; Stop 02/05/17 at 13:28 ; Status DC Lidocaine HCl 2 ml 1X PRN PRN ID IV START; Start 02/05/17 at 07:00; Stop at 06:59 Hydromorphone HCl (Dilaudid) 0.5 mg PRN Q10MIN PRN IV SEVERE PAIN, Second choice; Start 02/05/17 at 07:00; Stop 02/06/17 at 06:59 Prochlorperazine Edisylate 5 mg 5 mg PACU PRN PRN IV NAUSEA; Start 02/05/17 at 07:00; Stop 02/06/17 at 06:59 Sodium Chloride (Iv Sodium Chloride 0.9% 1000ml Bag) 1,000 ml @ 1,000 mls/hr Q1H PRN IV hypotension; Start 02/04/17 at 09:55; Stop 02/04/17 at 15:54; Status DC Info (PHARMACY MONITORING -- do not chart) 1 each PRN DAILY PRN MC SEE COMMENTS ; Start 02/04/17 at 10:00 Throat Lozenges 1 estelita 1 estelita PRN Q2HRS PRN PO SORE THROAT; Start 02/04/17 at 11: 00 Magnesium Sulfate/ Dextrose 50 ml @ 25 mls/hr PRN DAILY PRN IV for Mag < 1.7 on am labs; Start 02/04/17 at 11:30; Stop 02/05/17 at 13:28; Status DC Potassium Chloride 70 meq/ Sodium Bicarbonate 12.5 meq/Lidocaine HCl 24 ml/ Parenteral Electrolytes 571.5 ml @ 571.5 mls/ hr 1X PERIOP ONCE IRR Last administered on 02/05/17 09:42; Start 02/05/17 at 06:00; Stop 02/05/17 at 06:59 ; Status DC Potassium Chloride 15 meq/ Sodium Bicarbonate 12.5 meq/Parenteral Electrolytes 520 ml @ 520 mls/hr 1X PERIOP ONCE IRR Last administered on 02/05/17t 09:42; Start 02/05/17 at 06:00; Stop 02/05/17 at 06:59; Status DC Heparin Sodium (Porcine)/ Lactated Ringer's (Iv Lactated Ringers) 1,020 ml @ 1, 020 mls/hr 1X PERIOP ONCE IRR Last administered on 02/05/17t 08:42; Start at 06:00; Stop 02/05/17 at 06:59; Status DC Aminocaproic Acid (Amicar) 5,000 mg STK-MED ONCE IV ; Start 02/05/17 at 06:13; Stop 02/05/17 at 06:14; Status DC Etomidate (Amidate) 20 mg STK-MED ONCE IV ; Start 02/05/17 at 06:13; Stop at 06:14; Status DC Lidocaine HCl 100 mg STK-MED ONCE .ROUTE ; Start 02/05/17 at 06:13; Stop at 06:14; Status DC Rocuronium [place] (Zemuron) 100 mg STK-MED ONCE .ROUTE ; Start 02/05/17 at 06: 14; Stop 02/05/17 at 06:15; Status DC Ephedrine Sulfate 50 mg STK-MED ONCE IV ; Start 02/05/17 at 06:14; Stop at 06:15; Status DC Phenylephrine HCl (Alexis-Synephrine Inj) 10 mg STK-MED ONCE .ROUTE ; Start at 06:14; Stop 02/05/17 at 06:15; Status DC Sufentanil Citrate (Sufenta) 100 mcg STK-MED ONCE .ROUTE ; Start 02/05/17 at 06: 14; Stop 02/05/17 at 06:15; Status DC Midazolam HCl (Versed) 2 mg STK-MED ONCE .ROUTE ; Start 02/05/17 at 06:14; Stop 02/05/17 at 06:15; Status DC Fentanyl Citrate 100 mcg 100 mcg STK-MED ONCE .ROUTE ; Start 02/05/17 at 06:15; Stop 02/05/17 at 06:16; Status DC Nitroglycerin/ Dextrose (Nitroglycerin Drip) 250 ml @ As Directed STK-MED ONCE IV ; Start 02/05/17 at 06:15; Stop 02/05/17 at 06:16; Status DC Heparin Sodium (Porcine) 30,000 unit STK-MED ONCE .ROUTE ; Start 02/05/17 at 06: 16; Stop 02/05/17 at 06:17; Status DC Cellulose 1 each STK-MED ONCE .ROUTE Last administered on 02/05/17 08:42; Start 02/05/17 at 06:42; Stop 02/05/17 at 06:43; Status DC Papaverine HCl 60 mg STK-MED ONCE .ROUTE Last administered on 02/05/17 08:42; Start 02/05/17 at 06:42; Stop 02/05/17 at 06:43; Status DC Aspirin (Aspirin) 300 mg STK-MED ONCE .ROUTE Last administered on 02/05/17 12: 58; Start 02/05/17 at 06:42; Stop 02/05/17 at 06:43; Status DC Mineral Oil (Muri-Lube) 10 ml STK-MED ONCE MC Last administered on 02/05/17 12 :10; Start 02/05/17 at 06:43; Stop 02/05/17 at 06:44; Status DC Sodium Chloride 50 ml 50 ml STK-MED ONCE IJ Last administered on 02/05/17 08: 42; Start 02/05/17 at 06:43; Stop 02/05/17 at 06:44; Status DC Mannitol (Mannitol Iv Soln) 500 ml @ 0 mls/hr 1X ONCE IV ; Start 02/05/17 at 07 :15; Stop 02/05/17 at 07:16; Status DC Sufentanil Citrate (Sufenta) 100 mcg STK-MED ONCE .ROUTE ; Start 02/05/17 at 08: 01; Stop 02/05/17 at 08:02; Status DC Midazolam HCl (Versed) 5 mg STK-MED ONCE .ROUTE ; Start 02/05/17 at 09:10; Stop 02/05/17 at 09:11; Status DC Heparin Sodium (Porcine) 10,000 unit STK-MED ONCE .ROUTE ; Start 02/05/17 at 09: 15; Stop 02/05/17 at 09:16; Status DC Rocuronium [place] (Zemuron) 100 mg STK-MED ONCE .ROUTE ; Start 02/05/17 at 09: 43; Stop 02/05/17 at 09:44; Status DC Heparin Sodium (Porcine) 10,000 unit STK-MED ONCE .ROUTE ; Start 02/05/17 at 10: 57; Stop 02/05/17 at 10:58; Status DC Protamine Sulfate 250 mg STK-MED ONCE IV ; Start 02/05/17 at 11:08; Stop at 11:09; Status DC Protamine Sulfate 50 mg STK-MED ONCE IV ; Start 02/05/17 at 11:09; Stop at 11:10; Status DC Protamine Sulfate 50 mg STK-MED ONCE IV ; Start 02/05/17 at 11:09; Stop at 11:10; Status DC Protamine Sulfate 50 mg STK-MED ONCE IV ; Start 02/05/17 at 11:09; Stop at 11:10; Status DC Isoflurane (Isoflurane) 90 ml STK-MED ONCE IH ; Start 02/05/17 at 11:34; Stop at 11:35; Status DC Heparin Sodium (Porcine) 10,000 unit STK-MED ONCE .ROUTE ; Start 02/05/17 at 12: 59; Stop 02/05/17 at 13:00; Status DC Lidocaine HCl (Xylocaine-Mpf 1% Vial) 5 ml STK-MED ONCE .ROUTE ; Start 02/05/17 at 12:59; Stop 02/05/17 at 13:00; Status DC Aminocaproic Acid (Amicar) 5,000 mg STK-MED ONCE IV ; Start 02/05/17 at 12:59; Stop 02/05/17 at 13:00; Status DC Magnesium Sulfate 5 gm STK-MED ONCE .ROUTE ; Start 02/05/17 at 12:59; Stop 02/05 at 13:00; Status DC Calcium Chloride 1000 mg 1,000 mg STK-MED ONCE IV ; Start 02/05/17 at 12:59; Stop 02/05/17 at 13:00; Status DC Albumin Human (Albuminar) 200 ml @ As Directed STK-MED ONCE IV ; Start at 12:59; Stop 02/05/17 at 13:00; Status DC Heparin Sodium (Porcine) 12420 unit 30,000 unit STK-MED ONCE .ROUTE ; Start at 12:59; Stop 02/05/17 at 13:00; Status DC Lactated Ringer's 1,000 ml @ 30 mls/hr Q24H IV ; Start 02/05/17 at 13:15 Albumin Human 250 ml @ 60 mls/hr PRN Q4HRS PRN IV SEE I/O RECORD; Start at 13:15 Vancomycin HCl 1.5 gm/Sodium Chloride 500 ml @ 250 mls/hr Q12H IV ; Start 02/05 at 13:30; Stop 02/06/17 at 15:29; Status UNV Insulin Human Regular/Sodium Chloride (Novolin R Vial/ Iv Normal Saline 150ml) 151.5 ml @ 0 mls/hr CONT PRN PRN IV SEE I/O RECORD; Start 02/05/17 at 13:15 Dextrose 25 gm 25 gm PRN Q15MIN PRN IV LOW BLOOD SUGAR; Start 02/05/17 at 13:15 Nitroglycerin/ Dextrose 250 ml @ 0 mls/hr CONT PRN PRN IV SEE I/O RECORD; Start 02/05/17 at 13:15 Amiodarone HCl 900 mg/Dextrose 518 ml @ 33.33 mls/ hr CONT PRN PRN IV RUNS OF VT; Start 02/05/17 at 13:15 Amiodarone HCl 150 mg/Dextrose 103 ml @ 200 mls/hr 1X PRN PRN IV VT; Start at 13:15 Magnesium Sulfate/ Dextrose (Magnesium Sulfate PREMIX 1GM) 100 ml @ 100 mls/hr PRN DAILY PRN IV FOR MAG < 2.2; Start 02/05/17 at 13:15 Famotidine (Pepcid) 20 mg Q48H IVP ; Start 02/05/17 at 21:00 Ondansetron HCl (Zofran) 4 mg PRN Q4HRS PRN IV NAUSEA/VOMITING; Start 02/05/17 at 13:15 Morphine Sulfate 2 mg PRN Q1HR PRN IV PAIN; Start 02/05/17 at 13:15 Acetaminophen (Tylenol) 650 mg PRN Q4HRS PRN PO MILD PAIN / TEMP; Start at 13:15 Acetaminophen (Tylenol) 650 mg PRN Q4HRS PRN RI MILD PAIN / TEMP; Start at 13:15 Meperidine HCl 12.5 mg 12.5 mg PRN Q15MIN PRN IV SHIVERING; Start 02/05/17 at 13:15; Stop 02/06/17 at 23:59 Propofol (Diprivan) 100 ml @ 0 mls/hr CONT PRN PRN IV POSTOP SEDATION UNTIL EXTUBATE; Start 02/05/17 at 13:15 Senna/Docusate Sodium (Senna Plus) 1 tab BID PO ; Start 02/05/17 at 21:00 Bisacodyl (Dulcolax Supp) 10 mg PRN DAILY PRN RI NO BOWEL MOVEMENT; Start 02/05 at 13:15 Chlorhexidine Gluconate (Peridex) 15 ml BID MM ; Start 02/05/17 at 21:00 Aspirin (Ecotrin) 325 mg DAILYWBKFT PO ; Start 02/06/17 at 08:00 Aspirin (Aspirin) 300 mg PRN DAILY PRN RI IF UNABLE TO TAKE PO; Start 02/05/17 at 13:15 Albuterol Sulfate (Ventolin Neb Soln) 2.5 mg PRN Q4HRS PRN NEB SHORTNESS OF BREATH; Start 02/05/17 at 13:15 Metoprolol Tartrate 25 mg 25 mg BID PO ; Start 02/06/17 at 09:00 Clevidipine (Cleviprex) 100 ml @ 0 mls/hr CONT PRN IV PER PROTOCOL; Start 02/05 at 13:15 Oxycodone/ Acetaminophen (Percocet 5/325) 1 tab PRN Q4HRS PRN PO MILD PAIN; Start 02/05/17 at 13:15 Oxycodone/ Acetaminophen (Percocet 5/325) 2 tab PRN Q4HRS PRN PO MODERATE PAIN , SEVERE PAIN; Start 02/05/17 at 13:15 Vecuronium [place] 10 mg 10 mg STK-MED ONCE IV ; Start 02/05/17 at 13:32; Stop 02/05/17 at 13:33; Status DC Vancomycin HCl/ Sodium Chloride (Iv Sodium Chloride 0.9% 100ml) 100 ml @ 100 mls/hr 1X ONCE IV ; Start 02/06/17 at 16:00; Stop 02/06/17 at 16:59 Active Scripts Active Clopidogrel (Clopidogrel Bisulfate) 75 Mg Tablet 1 Tab PO DAILY Isosorbide Mononitrate Er (Isosorbide Mononitrate) 30 Mg Tab.er.24h 30 Mg PO DAILY Flomax (Tamsulosin Hcl) 0.4 Mg Cap.er.24h 0.4 Mg PO QHS Reported Hydrocodone-Apap 5-325 (Hydrocodone Bit/Acetaminophen) 1 Each Tablet 1 Tab PO PRN Q6HRS PRN Furosemide 80 Mg Tablet 1 Tab PO BID Nephro-Chilo Tablet (Folic Acid/Vitamin B Comp W-C) 0.8 Mg Tablet 1 Tab PO DAILY Paroxetine Hcl 20 Mg Tablet 40 Mg PO DAILY Tums (Calcium Carbonate) 200 Mg Tab.chew 800 Mg PO TIDAC Omeprazole Magnesium 20 Mg Capsule.dr 20 Mg PO DAILY Clonidine Hcl 0.3 Mg Tablet 1 Tab PO DAILY Hydralazine Hcl 100 Mg Tablet 100 Mg PO TID LAST DOSE: 02/24/16 AFTERNOON NEXT DOSE: 02/24/16 BEDTIME Amlodipine Besylate 10 Mg Tablet 10 Mg PO BID LAST DOSE: 02/24/16 AM NEXT DOSE: 02/25/16 AM Xanax (Alprazolam) 0.5 Mg Tablet 0.5 Mg PO Q6HRS PRN LAST DOSE: 02/23/16 BEDTIME NEXT DOSE: 02/24/16 BEDTIME Losartan Potassium 100 Mg Tablet 100 Mg PO HS LAST DOSE: 02/23/16 BEDTIME NEXT DOSE: 02/24/16 BEDTIME Metoprolol Tartrate 100 Mg Tablet 100 Mg PO BID LAST DOSE: 02/24/16 AM NEXT DOSE: 02/24/16 BEDTIME Lillian Chewable (Aspirin) 81 Mg Tab.chew 324 Mg PO DAILY LAST DOSE: 02/24/16 AM NEXT DOSE: 02/25/16 AM Vitals/I & O Vital Sign - Last 24 Hours 02/04/17 02/04/17 02/04/17 02/04/17 17:16 17:16 18:24 19:15 Temp 98.3 98.3 Pulse 69 61 Resp 16 16 20 B/P 144/69 123/54 Pulse Ox 94 O2 Delivery Room Air Room Air Room Air 02/04/17 02/04/17 02/04/17 02/04/17 20:00 20:54 20:55 20:56 Pulse 61 61 61 B/P 123/54 123/54 123/54 O2 Delivery Room Air O2 Flow Rate 2.0 02/04/17 02/04/17 02/05/17 02/05/17 20:56 23:00 03:45 06:34 Temp 98.2 97.9 98.2 97.9 Pulse 61 63 60 60 Resp 18 18 B/P 123/54 125/61 128/54 128/54 Pulse Ox 97 95 O2 Delivery Room Air Room Air 02/05/17 02/05/17 02/05/17 02/05/17 07:12 07:15 13:25 13:40 Temp 97.2 97.3 97.2 97.3 Pulse 60 84 80 Resp 20 18 B/P 172/64 148/87 147/68 Pulse Ox 98 96 98 O2 Delivery Room Air Nasal Cannula Ventilator O2 Flow Rate 2.0 02/05/17 02/05/17 02/05/17 02/05/17 13:45 14:00 14:15 14:22 Pulse 80 79 80 B/P 120/80 122/58 125/53 O2 Delivery Mechanical Ventilator O2 Flow Rate 2.0 02/05/17 02/05/17 02/05/17 02/05/17 14:30 15:00 16:00 16:00 Pulse 60 60 60 B/P 119/44 121/52 120/55 O2 Delivery Mechanical Ventilator O2 Flow Rate 2.0 Intake and Output 02/04/17 02/04/17 02/05/17 15:00 23:00 07:00 Intake Total 120 ml 560 ml Balance 120 ml 560 ml Nutrition Consultation Dietary Evaluation: Recommendations by RD: Increase Calorie Intake Comments: Discussed typical nutrition care plan for CABG surgery Continue to encourage diet compliance to the cardiac/renal diets D/C the boost breeze-pt diet advanced, meeting nutrition needs via PO intake Expected Outcomes/Goals: meet 75% estimated nutrition needs Malnutrition Findings: 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
[2017-02-05 16:46] LABS: INR 1.2 (0.8-1.1); PROTHROMBIN TIME PATIENT 14.9 SEC (11.7-14.0)
[2017-02-05] MEDS: MORPHINE SULFATE 2 MG/ML DISP.SYRIN. IV PRN ×4 (17:02→20:35)
[2017-02-05] MEDS: ALBUMIN HUMAN 5% 250 ML IV PRN ×3 (17:18→17:20)
[2017-02-05] MEDS: IV RINGERS,LACTATED 1000ML 1,000 ML IV SCH (17:27)
--- NOTE | 2017-02-05 17:27 | PDOC ---
SUBJECTIVE ROS ESRD Just back from CABG Remains sedated and intubated OBJECTIVE Vital Signs Vital Signs Date Time Temp Pulse Resp B/P Pulse Ox O2 Delivery O2 Flow Rate FiO2 02/05/17 17:14 16 95 02/05/17 17:02 Ventilator 02/05/17 16:00 99.0 60 127/64 99.0 02/05/17 16:00 2.0 I & 0 Intake and Output 02/05/17 07:00 Intake Total 680 ml Balance 680 ml Intake Oral 680 ml # Voids 2 PHYSICAL EXAM Physical Exam GEN: SEdated intubated, In min distress EYES: Vision Unchanged, Conjunctiva Normal EN: No EN Drainage, Mucous Membranes moist NECK: no JVD, no JVP, Supple, no Thyromegaly CVS: S1S2, no Murmur, No Gallop, No Rub,no Edema RESP: no Rales, no Rhonchi,no Acc. Muscle Use GI: BS + ve, NO Bruit, Non Tender, Non Distended : no CVA tenderness, no Suprapubic Tenderness DIAGNOSIS/ASSESSMENT Assessment & Plan ESRD: Current fluid and E-lyte status does not necessitate emergent need for dialysis. Will re-evaluate for dialysis in the am and continue on MWF schedule for now and then TTSat once closer to D/c ANEMIA : Now post op drop, remains on Aranesp as ordered, Transfuse with next HD as needed HTN: Current BP meds as reviewed. Reval once closer to extubation and gradually resume Rx BONE & MINERAL: follow phos and alter/ restart Binders prn Kreplacement post CABG - if K < 4.0 Problems: COMMENT/RELEVANT DATA Meds Current Medications Medications (Trade) Dose Ordered Sig/Cirilo Start Time Stop Time Status Last Admin Dose Admin Acetaminophen (Tylenol) 650 mg PRN Q4HRS PRN 02/05/17 13:15 Acetaminophen/ Hydrocodone Bitart (Lortab 5/325) 1 tab PRN Q4HRS PRN 01/29/17 18:45 02/04/17 17:16 1 TAB Albumin Human 250 ml @ 60 mls/hr PRN Q4HRS PRN 02/05/17 13:15 02/05/17 17:19 60 MLS/HR Albumin Human (Albuminar) 200 ml @ As Directed STK-MED ONCE 02/05/17 12:59 02/05/17 13:00 DC Albuterol Sulfate (Ventolin Neb Soln) 2.5 mg PRN Q4HRS PRN 02/05/17 13:15 Alprazolam (Xanax) 0.5 mg PRN Q6HRS PRN 02/03/17 12:30 02/04/17 23:00 0.5 MG Aminocaproic Acid (Amicar) 5,000 mg STK-MED ONCE 02/05/17 12:59 02/05/17 13:00 DC Amiodarone HCl 150 mg/Dextrose 103 ml @ 200 mls/hr 1X PRN PRN 02/05/17 13:15 Amiodarone HCl 900 mg/Dextrose 518 ml @ 33.33 mls/ hr CONT PRN PRN 02/05/17 13:15 Amlodipine Besylate (Norvasc) 10 mg BID 01/29/17 12:00 02/04/17 20:55 10 MG Aspirin (Aspirin) 300 mg PRN DAILY PRN 02/05/17 13:15 Aspirin (Children'S Aspirin) 324 mg DAILY 01/29/17 12:00 01/30/17 18:32 DC Aspirin (Ecotrin) 325 mg [id number] 02/06/17 08:00 Bisacodyl (Dulcolax Supp) 10 mg PRN DAILY PRN 02/05/17 13:15 Calcium Carbonate/ Glycine (Tums) 800 mg TIDAC 01/29/17 11:30 02/04/17 17:19 800 MG Calcium Chloride 1000 mg 1,000 mg STK-MED ONCE 02/05/17 12:59 02/05/17 13:00 DC Cellulose 1 each STK-MED ONCE 02/05/17 06:42 02/05/17 06:43 DC 02/05/17 08:42 1 EACH Chlorhexidine Gluconate (Peridex) 15 ml BID 02/05/17 21:00 Clevidipine (Cleviprex) 100 ml @ 0 mls/hr CONT PRN 02/05/17 13:15 Clonidine HCl (Catapres) 0.3 mg DAILY 01/30/17 09:00 02/04/17 14:59 0.3 MG Clopidogrel Bisulfate (Plavix) 75 mg DAILY 01/29/17 12:00 01/30/17 09:45 DC Cyclobenzaprine HCl (Flexeril) 10 mg PRN TID PRN 01/29/17 18:45 01/30/17 05:22 10 MG Darbepoetin Percy (Aranesp) 60 mcg WEEKLYHS 02/02/17 21:00 02/02/17 21:15 60 MCG Dextrose 25 gm 1X ONCE 01/31/17 09:00 01/31/17 09:03 DC 01/31/17 09:04 25 GM Dextrose 25 gm 25 gm PRN Q15MIN PRN 02/05/17 13:15 Diltiazem HCl 5 mg 5 mg 1X ONCE 01/29/17 19:15 01/29/17 19:18 DC 01/29/17 19:23 5 MG Diltiazem HCl/ Dextrose (Cardizem) 125 ml @ 0 mls/hr CONT PRN 01/29/17 19:15 02/03/17 12:13 DC Diphenhydramine HCl (Benadryl) 25 mg 1X PRN PRN 02/02/17 09:30 02/03/17 09:29 DC Docusate Sodium (Colace) 100 mg BID 01/29/17 21:00 02/04/17 20:54 100 MG Ephedrine Sulfate 50 mg STK-MED ONCE 02/05/17 06:14 02/05/17 06:15 DC Etomidate (Amidate) 20 mg STK-MED ONCE 02/05/17 06:13 02/05/17 06:14 DC Famotidine (Pepcid) 20 mg Q48H 02/05/17 21:00 Fentanyl Citrate (Fentanyl 2ml Vial) 50 mcg PRN Q5MIN PRN 02/05/17 07:00 02/06/17 06:59 Fentanyl Citrate 100 mcg 100 mcg STK-MED ONCE 02/05/17 06:15 02/05/17 06:16 DC Furosemide (Lasix) 80 mg [id number] 01/29/17 14:00 02/04/17 15:11 80 MG Heparin Sodium (Porcine) 10,000 unit STK-MED ONCE 02/05/17 12:59 02/05/17 13:00 DC Heparin Sodium (Porcine) 3000 unit 3,000 unit 1X ONCE 01/30/17 18:00 01/30/17 18:01 DC 01/30/17 17:36 3 UNIT Heparin Sodium (Porcine) 93518 unit 30,000 unit STK-MED ONCE 02/05/17 12:59 02/05/17 13:00 DC Heparin Sodium (Porcine)/ Lactated Ringer's (Iv Lactated Ringers) 1,020 ml @ 1,020 mls/hr 1X PERIOP ONCE 02/05/17 06:00 02/05/17 06:59 DC 02/05/17 08:42 Heparin Sodium/ Dextrose 500 ml @ 24 mls/hr CONT PRN 01/30/17 18:00 02/04/17 18:41 DC 02/03/17 05:47 24 MLS/HR Heparin Sodium/ Sodium Chloride 1,000 unit 1X ONCE 01/29/17 18:45 01/29/17 18:53 DC 01/29/17 18:51 1,000 UNIT Hydralazine HCl (Apresoline) 100 mg TID 01/29/17 14:00 02/04/17 20:54 100 MG Hydromorphone HCl (Dilaudid) 0.5 mg PRN Q10MIN PRN 02/05/17 07:00 02/06/17 06:59 Info (Anti-Coagulation Monitoring By Pharmacy) 1 each PRN DAILY PRN 01/30/17 10:45 02/04/17 18:43 DC 02/04/17 09:51 1 EACH Info (PHARMACY MONITORING -- do not chart) 1 each PRN DAILY PRN 02/04/17 10:00 Insulin Human Regular (Novolin R Vial) 10 unit 1X ONCE 01/31/17 06:30 01/31/17 06:31 DC 01/31/17 06:09 10 UNIT Insulin Human Regular/Sodium Chloride (Novolin R Vial/ Iv Normal Saline 150ml) 151.5 ml @ 0 mls/hr CONT PRN PRN 02/05/17 13:15 Iodixanol (Visipaque 320) 105 ml 1X ONCE 01/29/17 18:45 01/29/17 18:53 DC 01/29/17 18:52 105 ML Isoflurane (Isoflurane) 90 ml STK-MED ONCE 02/05/17 11:34 02/05/17 11:35 DC Isosorbide Mononitrate (Imdur) 30 mg DAILY 01/29/17 12:00 02/04/17 15:01 30 MG Lactated Ringer's 1,000 ml @ 30 mls/hr Q24H 02/05/17 13:15 Lactated Ringer's (Iv Lactated Ringers) 1,000 ml @ 0 mls/hr Q0M 02/05/17 07:00 02/05/17 13:28 DC 02/05/17 07:32 30 MLS/HR Lidocaine HCl (Xylocaine-Mpf 1% Vial) 5 ml STK-MED ONCE 02/05/17 12:59 02/05/17 13:00 DC Losartan Potassium (Cozaar) 100 mg QHS 01/29/17 21:00 02/04/17 20:56 100 MG Magnesium Sulfate 5 gm STK-MED ONCE 02/05/17 12:59 02/05/17 13:00 DC Magnesium Sulfate/ Dextrose (Magnesium Sulfate PREMIX 1GM) 100 ml @ 100 mls/hr PRN DAILY PRN 02/05/17 13:15 Mannitol (Mannitol Iv Soln) 500 ml @ 0 mls/hr 1X ONCE 02/05/17 07:15 02/05/17 07:16 DC Meperidine HCl 12.5 mg 12.5 mg PRN Q15MIN PRN 02/05/17 13:15 02/06/17 23:59 Metoprolol Tartrate (Lopressor) 10 mg 1X ONCE 01/29/17 18:45 01/29/17 18:53 DC 01/29/17 18:52 10 MG Metoprolol Tartrate 25 mg 25 mg BID 02/06/17 09:00 Midazolam HCl (Versed) 5 mg STK-MED ONCE 02/05/17 09:10 02/05/17 09:11 DC Mineral Oil (Muri-Lube) 10 ml STK-MED ONCE 02/05/17 06:43 02/05/17 06:44 DC 02/05/17 12:10 10 ML Morphine Sulfate 2 mg PRN Q1HR PRN 02/05/17 13:15 02/05/17 17:14 2 MG Morphine Sulfate 1 mg 1 mg PRN Q10MIN PRN 02/05/17 07:00 02/06/17 06:59 Nitroglycerin (Nitrostat) 0.4 mg STK-MED ONCE 01/29/17 17:00 01/30/17 08:02 DC Nitroglycerin/ Dextrose 250 ml @ 0 mls/hr CONT PRN PRN 02/05/17 13:15 Nitroglycerin/ Dextrose (Nitroglycerin Drip) 250 ml @ As Directed STK-MED ONCE 02/05/17 06:15 02/05/17 06:16 DC Ondansetron HCl (Zofran) 4 mg PRN Q4HRS PRN 02/05/17 13:15 Ondansetron HCl 4 mg 4 mg 1X ONCE 01/28/17 23:30 01/28/17 23:31 DC 01/28/17 23:57 4 MG Oxycodone/ Acetaminophen (Percocet 5/325) 2 tab PRN Q4HRS PRN 02/05/17 13:15 Pantoprazole Sodium (Protonix) 40 mg DAILYAC 01/29/17 12:00 02/04/17 15:01 40 MG Papaverine HCl 60 mg STK-MED ONCE 02/05/17 06:42 02/05/17 06:43 DC 02/05/17 08:42 60 MG Paroxetine HCl (Paxil) 40 mg DAILY 01/29/17 12:00 02/04/17 15:00 40 MG Phenylephrine HCl (Alexis-Synephrine Inj) 10 mg STK-MED ONCE 02/05/17 06:14 02/05/17 06:15 DC Potassium Chloride 15 meq/ Sodium Bicarbonate 12.5 meq/Parenteral Electrolytes 520 ml @ 520 mls/hr 1X PERIOP ONCE 02/05/17 06:00 02/05/17 06:59 DC 02/05/17 09:42 520 MLS/HR Potassium Chloride 70 meq/ Sodium Bicarbonate 12.5 meq/Lidocaine HCl 24 ml/Parenteral Electrolytes 571.5 ml @ 571.5 mls/ hr 1X PERIOP ONCE 02/05/17 06:00 02/05/17 06:59 DC 02/05/17 09:42 571.5 MLS/HR Prochlorperazine Edisylate 5 mg 5 mg PACU PRN PRN 02/05/17 07:00 02/06/17 06:59 Propofol (Diprivan) 100 ml @ 0 mls/hr CONT PRN PRN 02/05/17 13:15 Protamine Sulfate 50 mg STK-MED ONCE 02/05/17 11:09 02/05/17 11:10 DC Rocuronium [place] (Zemuron) 100 mg STK-MED ONCE 02/05/17 09:43 02/05/17 09:44 DC Senna/Docusate Sodium (Senna Plus) 1 tab BID 02/05/17 21:00 Sodium Chloride (Iv Sodium Chloride 0.9% 500ml Bag) 500 ml @ 0 mls/hr 1X ONCE 01/28/17 23:30 01/28/17 23:31 DC 01/28/17 23:39 999 MLS/HR Sodium Chloride (Iv Sodium Chloride 0.9% 1000ml Bag) 1,000 ml @ 1,000 mls/hr Q1H PRN 02/04/17 09:55 02/04/17 15:54 DC Sodium Chloride (Normal Saline Flush) 3 ml QSHIFT PRN 01/29/17 18:45 Sodium Chloride 50 ml 50 ml STK-MED ONCE 02/05/17 06:43 02/05/17 06:44 DC 02/05/17 08:42 50 ML Sufentanil Citrate (Sufenta) 100 mcg STK-MED ONCE 02/05/17 08:01 02/05/17 08:02 DC Tamsulosin HCl (Flomax) 0.4 mg QHS 01/29/17 21:00 02/04/17 20:54 0.4 MG Throat Lozenges (Cepacol Sore Throat Lozenge) 1 imka PRN Q2HRS PRN 02/03/17 07:15 02/05/17 13:28 DC 02/03/17 20:49 1 MIKA Throat Lozenges 1 mika 1 mika PRN Q2HRS PRN 02/04/17 11:00 Vancomycin HCl 1.5 gm/Sodium Chloride 500 ml @ 250 mls/hr Q12H 02/05/17 13:30 02/06/17 15:29 UNV Vancomycin HCl/ Sodium Chloride (Iv Sodium Chloride 0.9% 100ml) 100 ml @ 100 mls/hr 1X ONCE 02/06/17 16:00 02/06/17 16:59 Vecuronium [place] 10 mg 10 mg STK-MED ONCE 02/05/17 13:32 02/05/17 13:33 DC Vitamin B Complex/ Vitamin C (Nephro-Chilo) 1 tab DAILY 01/29/17 12:00 02/04/17 14:59 1 TAB Lab Laboratory Tests Test 02/05/17 03:35 02/05/17 08:27 02/05/17 08:30 02/05/17 08:46 White Blood Count 5.2x10^3/uL (4.0-11.0) Red Blood Count 2.81x10^6/uL (4.30-5.70) Hemoglobin 8.6g/dL (13.0-17.5) Hematocrit 26.2% (39.0-53.0) Mean Corpuscular Volume 93fL (79-100) Mean Corpuscular Hemoglobin 31pg (25-35) Mean Corpuscular Hemoglobin Concent 33g/dL (31-37) Red Cell Distribution Width 13.9% (11.5-14.5) Platelet Count 180x10^3/uL (140-400) Neutrophils (%) (Auto) 67% (31-73) Lymphocytes (%) (Auto) 16% (24-48) Monocytes (%) (Auto) 15% (0-9) Eosinophils (%) (Auto) 2% (0-3) Basophils (%) (Auto) 1% (0-3) Neutrophils # (Auto) 3.4x10^3uL (1.8-7.7) Lymphocytes # (Auto) 0.8x10^3/uL (1.0-4.8) Monocytes # (Auto) 0.8x10^3/uL (0.0-1.1) Eosinophils # (Auto) 0.1x10^3/uL (0.0-0.7) Basophils # (Auto) 0.0x10^3/uL (0.0-0.2) Sodium Level 141mmol/L (136-145) Potassium Level 4.0mmol/L (3.5-5.1) Chloride Level 101mmol/L (98-107) Carbon Dioxide Level 32mmol/L (21-32) Anion Gap 8 (6-14) Blood Urea Nitrogen 21mg/dL (8-26) Creatinine 6.3mg/dL (0.7-1.3) Estimated GFR (Cockcroft-Gault) 9.1 Glucose Level 94mg/dL (70-99) 100mg/dL (70-99) 94mg/dL (70-99) Calcium Level 8.4mg/dL (8.5-10.1) Phosphorus Level 4.2mg/dL (2.6-4.7) Magnesium Level 1.7mg/dL (1.8-2.4) Albumin 2.8g/dL (3.4-5.0) Activated Clotting Time 95SEC (90-125) Bedside Hemoglobin (Calculated) 8.2g/dL (14-18) Bedside Hematocrit 24% (37-52) 22% (37-52) Bedside Arterial pH 7.68 (7.35-7.45) Bedside Arterial pCO2 27mmHg (35-45) Bedside Arterial pO2 308mmHg (75-100) Bedside Arterial HCO3 32mmol/L (21-28) Bedside Arterial Total CO2 33mmol/L (21-32) Arterial Bld O2 Saturation (Measur) 100% (95-99) Bedside Arterial Blood Base Excess 12mmol/L (0-3) Bedside FiO2 100.0 100 Bedside Sodium 136mmol/L (135-145) 137mmol/L (135-145) Bedside Potassium 3.8mmol/L (3.5-5.0) 3.5mmol/L (3.5-5.0) Bedside Ionized Calcium (Mac) 0.95mmol/L (1.13-1.32) 0.97mmol/L (1.13-1.32) Bedside Venous pH 7.57 (7.32-7.42) Bedside Venous pCO2 28mmHg (41-51) Bedside Venous pO2 34mmHg (20-40) Bedside Venous HCO3 26mmol/L (24-28) Bedside Venous Blood Total CO2 26mmol/L (21-32) Bedside Venous Blood O2 Saturation 76% Bedside Venous Blood Base Excess 3mmol/L (0-3) POC Venous Hemoglobin (Calc) 7.5g/dL (14-18) Test 02/05/17 09:19 02/05/17 09:21 02/05/17 09:48 02/05/17 10:17 Activated Clotting Time 608SEC (90-125) Bedside Hemoglobin (Calculated) 7.5g/dL (14-18) 8.5g/dL (14-18) Bedside Hematocrit 22% (37-52) 23% (37-52) 25% (37-52) Bedside Arterial pH 7.56 (7.35-7.45) 7.41 (7.35-7.45) Bedside Arterial pCO2 34mmHg (35-45) 47mmHg (35-45) Bedside Arterial pO2 357mmHg (75-100) 501mmHg (75-100) Bedside Arterial HCO3 30mmol/L (21-28) 30mmol/L (21-28) Bedside Arterial Total CO2 31mmol/L (21-32) 31mmol/L (21-32) Arterial Bld O2 Saturation (Measur) 100% (95-99) 100% (95-99) Bedside Arterial Blood Base Excess 8mmol/L (0-3) 5mmol/L (0-3) Bedside FiO2 100.0 100 100.0 Bedside Sodium 136mmol/L (135-145) 134mmol/L (135-145) 136mmol/L (135-145) Bedside Potassium 3.7mmol/L (3.5-5.0) 3.8mmol/L (3.5-5.0) 4.6mmol/L (3.5-5.0) Glucose Level 95mg/dL (70-99) 101mg/dL (70-99) 97mg/dL (70-99) Bedside Ionized Calcium (Mac) 0.96mmol/L (1.13-1.32) 0.88mmol/L (1.13-1.32) 0.93mmol/L (1.13-1.32) Bedside Venous pH 7.42 (7.32-7.42) Bedside Venous pCO2 37mmHg (41-51) Bedside Venous pO2 47mmHg (20-40) Bedside Venous HCO3 24mmol/L (24-28) Bedside Venous Blood Total CO2 25mmol/L (21-32) Bedside Venous Blood O2 Saturation 83% Bedside Venous Blood Base Excess -1mmol/L (0-3) POC Venous Hemoglobin (Calc) 7.8g/dL (14-18) Test 02/05/17 10:45 02/05/17 10:47 02/05/17 11:14 02/05/17 11:17 Activated Clotting Time 500SEC (90-125) 570SEC (90-125) Bedside Hemoglobin (Calculated) 7.8g/dL (14-18) 8.5g/dL (14-18) Bedside Hematocrit 23% (37-52) 25% (37-52) Bedside Arterial pH 7.46 (7.35-7.45) 7.46 (7.35-7.45) Bedside Arterial pCO2 44mmHg (35-45) 40mmHg (35-45) Bedside Arterial pO2 377mmHg (75-100) 327mmHg (75-100) Bedside Arterial HCO3 31mmol/L (21-28) 28mmol/L (21-28) Bedside Arterial Total CO2 32mmol/L (21-32) 30mmol/L (21-32) Arterial Bld O2 Saturation (Measur) 100% (95-99) 100% (95-99) Bedside Arterial Blood Base Excess 7mmol/L (0-3) 5mmol/L (0-3) Bedside FiO2 100.0 80.0 Bedside Sodium 136mmol/L (135-145) 136mmol/L (135-145) Bedside Potassium 4.7mmol/L (3.5-5.0) 4.9mmol/L (3.5-5.0) Glucose Level 103mg/dL (70-99) 108mg/dL (70-99) Bedside Ionized Calcium (Mac) 0.92mmol/L (1.13-1.32) 0.93mmol/L (1.13-1.32) Test 02/05/17 11:47 02/05/17 11:49 02/05/17 12:12 02/05/17 12:14 Activated Clotting Time 446SEC (90-125) 105SEC (90-125) Bedside Hemoglobin (Calculated) 7.8g/dL (14-18) 7.5g/dL (14-18) Bedside Hematocrit 23% (37-52) 22% (37-52) Bedside Arterial pH 7.42 (7.35-7.45) 7.47 (7.35-7.45) Bedside Arterial pCO2 43mmHg (35-45) 38mmHg (35-45) Bedside Arterial pO2 318mmHg (75-100) 286mmHg (75-100) Bedside Arterial HCO3 28mmol/L (21-28) 27mmol/L (21-28) Bedside Arterial Total CO2 30mmol/L (21-32) 29mmol/L (21-32) Arterial Bld O2 Saturation (Measur) 100% (95-99) 100% (95-99) Bedside Arterial Blood Base Excess 4mmol/L (0-3) 4mmol/L (0-3) Bedside FiO2 80.0 100.0 Bedside Sodium 135mmol/L (135-145) 135mmol/L (135-145) Bedside Potassium 4.9mmol/L (3.5-5.0) 4.6mmol/L (3.5-5.0) Glucose Level 107mg/dL (70-99) 101mg/dL (70-99) Bedside Ionized Calcium (Mac) 0.93mmol/L (1.13-1.32) 1.45mmol/L (1.13-1.32) Test 02/05/17 12:16 02/05/17 14:20 White Blood Count 4.9x10^3/uL (4.0-11.0) 6.2x10^3/uL (4.0-11.0) Hemoglobin 7.3g/dL (13.0-17.5) 8.7g/dL (13.0-17.5) Hematocrit 21.9% (39.0-53.0) 26.0% (39.0-53.0) Platelet Count 90x10^3/uL (140-400) 135x10^3/uL (140-400) Prothrombin Time 17.8SEC (11.7-14.0) 14.9SEC (11.7-14.0) Prothromb Time International Ratio 1.6 (0.8-1.1) 1.2 (0.8-1.1) Activated Partial Thromboplast Time 42SEC (24-38) Fibrinogen 392mg/dL (200-440) Red Blood Count 2.84x10^6/uL (4.30-5.70) Mean Corpuscular Volume 92fL (79-100) Mean Corpuscular Hemoglobin 31pg (25-35) Mean Corpuscular Hemoglobin Concent 33g/dL (31-37) Red Cell Distribution Width 14.8% (11.5-14.5) Sodium Level 137mmol/L (136-145) Potassium Level 4.8mmol/L (3.5-5.1) Chloride Level 100mmol/L (98-107) Carbon Dioxide Level 22mmol/L (21-32) Anion Gap 15 (6-14) Blood Urea Nitrogen 22mg/dL (8-26) Creatinine 6.8mg/dL (0.7-1.3) Estimated GFR (Cockcroft-Gault) 8.3 Glucose Level 136mg/dL (70-99) Glucose (Fingerstick) 127mg/dL (70-99) Calcium Level 9.8mg/dL (8.5-10.1) Magnesium Level 2.1mg/dL (1.8-2.4) TING GARDUNO MD Feb 05, 2017 17:27
--- NOTE | 2017-02-05 17:44 | OP ---
DATE OF SURGERY: 02/05/2017 PREOPERATIVE DIAGNOSES: End-stage renal disease, hypertension and normal LV systolic function. FINAL DIAGNOSES: End-stage renal disease, hypertension and normal LV systolic function. OPERATIVE PROCEDURES PERFORMED: 1. Coronary artery bypass grafting x 5 with left internal mammary artery to the LAD, saphenous vein graft sequence to the diagonal vessel and then to OM. 2. Separate saphenous vein graft sequence to the PDA and then to posterolateral branch SURGEON: Dr. Héctor Holbrook. SNOWBOARDER: RANGEL Gomez. ANESTHESIA: General. OPERATIVE INDICATIONS: The patient is a 61-year-old gentleman with a long history of diffuse atherosclerosis. The patient has had stents placed in his heart before as well as his right lower extremity. The patient has been admitted to the hospital and while undergoing dialysis suffer chest pain, was found to have an acute WV, was taken emergently to the laborer cheesemaking and found to have left main disease as well as multivessel disease. It was a clot sitting in the PDA. The patient remained stable post-WV. He was maintained on a heparin drip. We awaited 7 days for his Plavix to wear off. He was brought to the operating room now for coronary bypass grafting. DESCRIPTION OF PROCEDURE: The patient was brought to the operating room and placed on the OR table in supine position. After anesthesia was induced via general endotracheal route, monitoring lines have been position. The patient was prepped and draped in sterile fashion with chlorhexidine. A median sternotomy incision was made. The left internal mammary artery was harvested in standard fashion. Concurrently, saphenous vein was harvested from the left lower extremity using endoscopic techniques. We opened the pericardium systemically, anticoagulate the patient with heparin. Cannulae were placed in ascending aorta and the right atrium. An antegrade cardioplegic cannula was positioned in the ascending aorta. Cardiopulmonary bypass was begun. We then positioned retrograde cardioplegic cannula under low flow conditions, the aorta was cross clamped. The heart was arrested with approximately 1 liter of cold antegrade cardioplegia, followed by 500 mL cold retrograde cardioplegia. This was augmented with topical ice slush ____. Diastolic arrest was achieved and maintained throughout this operation with intermittent doses of cold antegrade and retrograde cardioplegia as well as cardioplegia given down the grafts and topical ice slush. We first opened up the obtuse marginal vessel. A 1.8 mm vessel, minimally diseased at the site of distal anastomosis was carried out and then end-to-side fashion with 7-0 Prolene. We then constructed a [id number] anastomosis to the diagonal vessel. This was done with a 7-0 Prolene as well. This segment of saphenous vein was brought around to the ascending aorta and a proximal fashion to the ascending aorta with a 6-0 Prolene after 4.8 punch aortotomy was created. Next, we examined the right coronary artery system. The posterolateral branch was relatively small vessel, but was graftable. We opened it about a 1.5 or 1.6 mm vessel. Distal anastomosis was carried out in an end-to-side fashion with 7-0 Prolene. We then constructed a quau-if-zikb anastomosis to the PDA was a much larger vessel. There are 2 mm in size. Anastomosis was carried out in a [id number] fashion with 7-0 Prolene. This segment of saphenous vein was brought around to the ascending aorta and anastomosed to the ascending aorta with 6-0 Prolene after 4.8 punch aortotomy was created. Lastly, the FIFI was anastomosed to the LAD. The LAD was intramyocardial and we had to undertake extensive dissection in order to find it. We opened this vessel is about 1.7 or 1.8 mm in size. At this point, a distal anastomosis was carried out in an end-to-side fashion with 7-0 Prolene. We placed a couple of reinforcement sutures. The leak site and use some BioGlue to help seal this. We closed the areas where the dissection had been performed. We then gave a warm cardioplegia both retrograde and antegrade. We took care to deair the ascending aorta and the vein graft. Under low flow conditions, the aortic cross clamp was released to begin the period of reperfusion. The patient was rewarmed to 37 degrees centigrade. We gave 3 successive doses of calcium and single dose of magnesium all over 3-5 minute intervals. After a suitable period of reperfusion, the lungs were reinflated. The patient was weaned from cardiopulmonary bypass without inotropic support. Protamine was given to reverse the heparin. Decannulation was effected. Once satisfactory hemostasis position, we placed two 32-Chinese chest tube in anterior mediastinum and a 24 Zaid drain in left pleural space. They were all brought out through separate stab incisions. The sternum was closed with #7 wire. The fascia, subcutaneous and skin were closed in multiple layers with absorbable suture. The procedure was completed. The patient was taken to the [facility] ICU in stable condition. Cardiopulmonary bypass time was listed at 138 minutes. CROSS CLAMP TIME: 170 minutes. HÉCTOR HOLBROOK MD DR: MARÍA ELENA/alyson JOB#: [id number] / [id number]
[2017-02-05 17:45] LABS: HEMOGLOBIN 8.1 g/dL (13.0-17.5); RED BLOOD COUNT 2.71 x10^6/uL (4.30-5.70); WHITE BLOOD COUNT 9.8 x10^3/uL (4.0-11.0)
[2017-02-05 18:02] LABS: BASE EXCESS COOX -3 mmol/L (-3-3); CARBON MONOXIDE 0.3 % (0.0-1.9); HCO3 COOX 21 mmol/L (21-28); METHEMOGLOBIN 0.2 % (0.0-1.9); PCO2 COOX 32 mmHg (35-46); PH COOX 7.44 (7.35-7.45); PO2 COOX 69 mmHg (65-108); SAT O2 COOX 94 % (92-99); TOTAL HEMOGLOBIN 11.4 g/dL
[2017-02-05 18:02] LABS: HCO3 ABG 20 mmol/L (21-28); PCO2 ABG 34 mmHg (35-46); PH ABG 7.39 (7.35-7.45); PO2 ABG 57 mmHg (65-108); SAT O2 ABG 88 % (92-99)
[2017-02-05 18:03] LABS: FIO2 ABG 40
[2017-02-05 18:04] LABS: FIO2 COOX 80
[2017-02-05] MEDS: OXYCODONE/APAP 5/325 TABLET. PO PRN (20:10)
[2017-02-05] MEDS: ALBUTEROL SULFATE 2.5 MG/3 ML NEBU. NEB PRN (20:12)
[2017-02-05] MEDS: LOSARTAN POTASSIUM 50 MG TABLET. PO SCH (21:00)
[2017-02-05] MEDS ORDERED: FAMOTIDINE 20 MG/2 ML VIAL IVP SCH (21:00)
[2017-02-05] MEDS ORDERED: CHLORHEXIDINE 0.12% 15 ML MOUTHWASH. MM SCH (21:00)
[2017-02-05] MEDS: TAMSULOSIN 0.4 MG CAP.ER.24H. PO SCH (21:00)
[2017-02-05] MEDS: SENNOSIDES/DOCUSATE 8.6/50MG TABLET. PO SCH (21:00)
[2017-02-05] MEDS: FENTANYL PF 100 MCG/2 ML VIAL. IV PRN (22:00)
[2017-02-06] VITALS (24 sets, daily range): BP systolic 96–130; BP diastolic 32–64
[2017-02-06] MEDS: OXYCODONE/APAP 5/325 TABLET. PO PRN ×6 (00:06→23:05)
[2017-02-06] MEDS: ALBUTEROL SULFATE 2.5 MG/3 ML NEBU. NEB PRN (00:15)
[2017-02-06] MEDS: MORPHINE SULFATE 2 MG/ML DISP.SYRIN. IV PRN ×5 (02:17→21:02)
[2017-02-06 06:18] LABS: ALBUMIN 3.5 g/dL (3.4-5.0); CALCIUM 9.2 mg/dL (8.5-10.1); CREATININE 8.3 mg/dL (0.7-1.3); GFR 6.6; PHOSPHORUS 6.5 mg/dL (2.6-4.7)
[2017-02-06 06:22] LABS: HEMATOCRIT 25.3 % (39.0-53.0); HEMOGLOBIN 8.1 g/dL (13.0-17.5); RED BLOOD COUNT 2.71 x10^6/uL (4.30-5.70); WHITE BLOOD COUNT 14.5 x10^3/uL (4.0-11.0)
[2017-02-06] MEDS ORDERED: CALCIUM CHLORIDE 1,000 MG/10 ML DISP.SYRIN IV ONE (07:30)
[2017-02-06] MEDS ORDERED: INSULIN REGULAR 100 UNIT/ML 10ML VIAL. IV ONE (07:30)
[2017-02-06] MEDS ORDERED: DEXTROSE 50% 25 GM / 50ML DISP.SYRIN. IV ONE (07:30)
--- NOTE | 2017-02-06 07:37 | RAD ---
Portable chest, 02/06/2017: History: Postop evaluation Comparison is made to yesterday's study. The ET tube, NG tube and [place]-Car[place] catheter have been removed. A left jugular vascular sheath remains in place. 2 mediastinal drains and a left chest tube are unchanged in positions. A left Port-A-Cath remains in place extending to the atriocaval junction level. The heart size and pulmonary vascularity are within normal limits. Right upper lobe atelectasis has partially cleared. There is a mild residual streaky right perihilar opacity. There is minimal residual left basilar atelectasis. There is no evidence of pneumothorax or pleural fluid. IMPRESSION: 1. Improving right upper lobe atelectasis. 2. Minimal residual left basilar atelectasis. 3. No new postoperative abnormality is detected.
[2017-02-06] MEDS: FOLIC/VIT B COMP W-C (RENAL) TABLET. PO SCH (08:13)
[2017-02-06] MEDS: ALPRAZOLAM 0.5 MG TABLET PO PRN ×2 (08:13→22:27)
[2017-02-06] MEDS: ASPIRIN ENTERIC COATED 325 MG TABLET.DR. PO SCH (08:14)
[2017-02-06] MEDS ORDERED: IV NORMAL SALINE 1000ML BAG 1,000 ML IV PRN (08:26)
[2017-02-06] MEDS ORDERED: ALBUMIN HUMAN 25% 200 ML IV PRN (08:30)
[2017-02-06] MEDS ORDERED: ACETAMINOPHEN 500 MG TABLET PO PRN (08:30)
[2017-02-06] MEDS ORDERED: DIPHENHYDRAMINE 50 MG/ML VIAL IV PRN ×2 (08:30)
[2017-02-06] MEDS ORDERED: DIALYSIS PATIENT. MC PRN (08:30)
--- NOTE | 2017-02-06 08:58 | PDOC ---
PROGRESS NOTES Chief Complaint Chief Complaint Pancreatitis ACS ASSESSMENT AND PLAN: 1. STEMI: EKG changes (incl brief afib). cath on 01/[address] Kiran: multivessel dz. CABG on 02/[address] Holbrook. 2. Pain control: not optimal. med adjustments 3. ESRD: on HD, Dr Luz sharma 4. Hyperkalemia: critical. to be addressed at HD 5. Anemia: stable at this time. 2/2 ESRD. EPO, iron with HD as indicated. acute blood loss from surgery. transfuse aggressively (slowed bone marrow response) 6. DM: currently welll controlled. ISS 7. Anxiety: Xanax PRN, .25-.5 PRN 7. AMS : resolved (benzo induced) 9. Sore throat: resolved 10 Pancreatitis: recurrent panc w/o EtOH hx, and s/p CCY. resolved 11. Prophylaxis: PPI History of Present Illness History of Present Illness Vitals Vitals Vital Signs Date Time Temp Pulse Resp B/P Pulse Ox O2 Delivery O2 Flow Rate FiO2 02/06/17 07:00 53 18 104/32 93 Nasal Cannula 6.0 02/06/17 05:00 97.6 97.6 Physical Exam General: Alert, Oriented X3, Cooperative, No acute distress Heart: Normal S1, Normal S2, Other (irreg) Lungs: Clear, Other (sternal incison covered with gauze, dried blood in gauze) Abdomen: Normal bowel sounds, Soft, No tenderness Extremities: No cyanosis Skin: No rashes Labs LABS Laboratory Tests Test 02/05/17 09:19 02/05/17 09:21 02/05/17 09:48 02/05/17 10:17 Activated Clotting Time 608SEC (90-125) Bedside Hemoglobin (Calculated) 7.5g/dL (14-18) 8.5g/dL (14-18) Bedside Hematocrit 22% (37-52) 23% (37-52) 25% (37-52) Bedside Arterial pH 7.56 (7.35-7.45) 7.41 (7.35-7.45) Bedside Arterial pCO2 34mmHg (35-45) 47mmHg (35-45) Bedside Arterial pO2 357mmHg (75-100) 501mmHg (75-100) Bedside Arterial HCO3 30mmol/L (21-28) 30mmol/L (21-28) Bedside Arterial Total CO2 31mmol/L (21-32) 31mmol/L (21-32) Arterial Bld O2 Saturation (Measur) 100% (95-99) 100% (95-99) Bedside Arterial Blood Base Excess 8mmol/L (0-3) 5mmol/L (0-3) Bedside FiO2 100.0 100 100.0 Bedside Sodium 136mmol/L (135-145) 134mmol/L (135-145) 136mmol/L (135-145) Bedside Potassium 3.7mmol/L (3.5-5.0) 3.8mmol/L (3.5-5.0) 4.6mmol/L (3.5-5.0) Glucose Level 95mg/dL (70-99) 101mg/dL (70-99) 97mg/dL (70-99) Bedside Ionized Calcium (Mac) 0.96mmol/L (1.13-1.32) 0.88mmol/L (1.13-1.32) 0.93mmol/L (1.13-1.32) Bedside Venous pH 7.42 (7.32-7.42) Bedside Venous pCO2 37mmHg (41-51) Bedside Venous pO2 47mmHg (20-40) Bedside Venous HCO3 24mmol/L (24-28) Bedside Venous Blood Total CO2 25mmol/L (21-32) Bedside Venous Blood O2 Saturation 83% Bedside Venous Blood Base Excess -1mmol/L (0-3) POC Venous Hemoglobin (Calc) 7.8g/dL (14-18) Test 02/05/17 10:45 02/05/17 10:47 02/05/17 11:14 02/05/17 11:17 Activated Clotting Time 500SEC (90-125) 570SEC (90-125) Bedside Hemoglobin (Calculated) 7.8g/dL (14-18) 8.5g/dL (14-18) Bedside Hematocrit 23% (37-52) 25% (37-52) Bedside Arterial pH 7.46 (7.35-7.45) 7.46 (7.35-7.45) Bedside Arterial pCO2 44mmHg (35-45) 40mmHg (35-45) Bedside Arterial pO2 377mmHg (75-100) 327mmHg (75-100) Bedside Arterial HCO3 31mmol/L (21-28) 28mmol/L (21-28) Bedside Arterial Total CO2 32mmol/L (21-32) 30mmol/L (21-32) Arterial Bld O2 Saturation (Measur) 100% (95-99) 100% (95-99) Bedside Arterial Blood Base Excess 7mmol/L (0-3) 5mmol/L (0-3) Bedside FiO2 100.0 80.0 Bedside Sodium 136mmol/L (135-145) 136mmol/L (135-145) Bedside Potassium 4.7mmol/L (3.5-5.0) 4.9mmol/L (3.5-5.0) Glucose Level 103mg/dL (70-99) 108mg/dL (70-99) Bedside Ionized Calcium (Mac) 0.92mmol/L (1.13-1.32) 0.93mmol/L (1.13-1.32) Test 02/05/17 11:47 02/05/17 11:49 02/05/17 12:12 02/05/17 12:14 Activated Clotting Time 446SEC (90-125) 105SEC (90-125) Bedside Hemoglobin (Calculated) 7.8g/dL (14-18) 7.5g/dL (14-18) Bedside Hematocrit 23% (37-52) 22% (37-52) Bedside Arterial pH 7.42 (7.35-7.45) 7.47 (7.35-7.45) Bedside Arterial pCO2 43mmHg (35-45) 38mmHg (35-45) Bedside Arterial pO2 318mmHg (75-100) 286mmHg (75-100) Bedside Arterial HCO3 28mmol/L (21-28) 27mmol/L (21-28) Bedside Arterial Total CO2 30mmol/L (21-32) 29mmol/L (21-32) Arterial Bld O2 Saturation (Measur) 100% (95-99) 100% (95-99) Bedside Arterial Blood Base Excess 4mmol/L (0-3) 4mmol/L (0-3) Bedside FiO2 80.0 100.0 Bedside Sodium 135mmol/L (135-145) 135mmol/L (135-145) Bedside Potassium 4.9mmol/L (3.5-5.0) 4.6mmol/L (3.5-5.0) Glucose Level 107mg/dL (70-99) 101mg/dL (70-99) Bedside Ionized Calcium (Mac) 0.93mmol/L (1.13-1.32) 1.45mmol/L (1.13-1.32) Test 02/05/17 12:16 02/05/17 13:15 02/05/17 14:15 02/05/17 14:20 White Blood Count 4.9x10^3/uL (4.0-11.0) 6.2x10^3/uL (4.0-11.0) Hemoglobin 7.3g/dL (13.0-17.5) 8.7g/dL (13.0-17.5) Hematocrit 21.9% (39.0-53.0) 26.0% (39.0-53.0) Platelet Count 90x10^3/uL (140-400) 135x10^3/uL (140-400) Prothrombin Time 17.8SEC (11.7-14.0) 14.9SEC (11.7-14.0) Prothromb Time International Ratio 1.6 (0.8-1.1) 1.2 (0.8-1.1) Activated Partial Thromboplast Time 42SEC (24-38) Fibrinogen 392mg/dL (200-440) O2 Saturation 94% (92-99) 88% (92-99) Arterial Blood pH 7.44 (7.35-7.45) 7.39 (7.35-7.45) Arterial Blood pCO2 at Patient Temp 32mmHg (35-46) 34mmHg (35-46) Arterial Blood pO2 at Patient Temp 69mmHg (65-108) 57mmHg (65-108) Arterial Blood HCO3 21mmol/L (21-28) 20mmol/L (21-28) Arterial Blood Base Excess -3mmol/L (-3-3) -4mmol/L (-3-3) Oxyhemoglobin 93.0% Methemoglobin 0.2% (0.0-1.9) Carbon Monoxide, Quantitative 0.3% (0.0-1.9) FiO2 80 40 Red Blood Count 2.84x10^6/uL (4.30-5.70) Mean Corpuscular Volume 92fL (79-100) Mean Corpuscular Hemoglobin 31pg (25-35) Mean Corpuscular Hemoglobin Concent 33g/dL (31-37) Red Cell Distribution Width 14.8% (11.5-14.5) Sodium Level 137mmol/L (136-145) Potassium Level 4.8mmol/L (3.5-5.1) Chloride Level 100mmol/L (98-107) Carbon Dioxide Level 22mmol/L (21-32) Anion Gap 15 (6-14) Blood Urea Nitrogen 22mg/dL (8-26) Creatinine 6.8mg/dL (0.7-1.3) Estimated GFR (Cockcroft-Gault) 8.3 Glucose Level 136mg/dL (70-99) Glucose (Fingerstick) 127mg/dL (70-99) Calcium Level 9.8mg/dL (8.5-10.1) Magnesium Level 2.1mg/dL (1.8-2.4) Test 02/05/17 17:00 02/05/17 17:30 02/05/17 19:02 02/05/17 20:13 Glucose (Fingerstick) 104mg/dL (70-99) 132mg/dL (70-99) 122mg/dL (70-99) White Blood Count 9.8x10^3/uL (4.0-11.0) Red Blood Count 2.71x10^6/uL (4.30-5.70) Hemoglobin 8.1g/dL (13.0-17.5) Hematocrit 25.0% (39.0-53.0) Mean Corpuscular Volume 92fL (79-100) Mean Corpuscular Hemoglobin 30pg (25-35) Mean Corpuscular Hemoglobin Concent 33g/dL (31-37) Red Cell Distribution Width 15.0% (11.5-14.5) Platelet Count 141x10^3/uL (140-400) Potassium Level 5.5mmol/L (3.5-5.1) Test 02/05/17 21:58 02/06/17 00:11 02/06/17 02:11 02/06/17 04:22 Glucose (Fingerstick) 129mg/dL (70-99) 138mg/dL (70-99) 130mg/dL (70-99) 132mg/dL (70-99) Test 02/06/17 05:35 02/06/17 05:45 02/06/17 05:46 02/06/17 08:48 Potassium Level 6.8mmol/L (3.5-5.1) 7.0mmol/L (3.5-5.1) White Blood Count 14.5x10^3/uL (4.0-11.0) Red Blood Count 2.71x10^6/uL (4.30-5.70) Hemoglobin 8.1g/dL (13.0-17.5) Hematocrit 25.3% (39.0-53.0) Mean Corpuscular Volume 94fL (79-100) Mean Corpuscular Hemoglobin 30pg (25-35) Mean Corpuscular Hemoglobin Concent 32g/dL (31-37) Red Cell Distribution Width 15.0% (11.5-14.5) Platelet Count 157x10^3/uL (140-400) Sodium Level 135mmol/L (136-145) Chloride Level 98mmol/L (98-107) Carbon Dioxide Level 17mmol/L (21-32) Anion Gap 20 (6-14) Blood Urea Nitrogen 30mg/dL (8-26) Creatinine 8.3mg/dL (0.7-1.3) Estimated GFR (Cockcroft-Gault) 6.6 Glucose Level 142mg/dL (70-99) Calcium Level 9.2mg/dL (8.5-10.1) Phosphorus Level 6.5mg/dL (2.6-4.7) Magnesium Level 2.3mg/dL (1.8-2.4) Creatine Kinase 669U/L (39-308) Albumin 3.5g/dL (3.4-5.0) Glucose (Fingerstick) 127mg/dL (70-99) 150mg/dL (70-99) Review of Systems Review of Systems no CP, but poorly controlled pain at abd end of incision/drain site. anxious Nutrition Consultation Dietary Evaluation: Recommendations by RD: Increase Calorie Intake Comments: Discussed typical nutrition care plan for CABG surgery Continue to encourage diet compliance to the cardiac/renal diets D/C the boost breeze-pt diet advanced, meeting nutrition needs via PO intake Expected Outcomes/Goals: meet 75% estimated nutrition needs Malnutrition Findings: Reduced Livestock Feeder Strength: N/A Weight Status: Overweight WENDI GUTIERREZ MD Feb 06, 2017 08:58
[2017-02-06] MEDS: AMLODIPINE BESYLATE 10 MG TABLET PO SCH (09:00)
[2017-02-06] MEDS: HYDRALAZINE 50 MG TABLET PO SCH ×2 (09:00→14:00)
[2017-02-06] MEDS ORDERED: METOPROLOL TART IMMED RELEASE 25 MG TABLET PO SCH (09:00)
[2017-02-06] MEDS: PAROXETINE 20 MG TABLET. PO SCH (09:31)
--- NOTE | 2017-02-06 09:34 | PDOC ---
Subjective: Subjective: Some chest pain. Feels tired. Ate a little this morning. Objective: Objective: Per RN - no GI concerns. Vital Signs: Vital Signs Date Time Temp Pulse Resp B/P Pulse Ox O2 Delivery O2 Flow Rate FiO2 02/06/17 09:00 80 18 130/53 93 Nasal Cannula 6.0 02/06/17 08:00 97.6 97.6 Labs: Laboratory Tests Test 02/05/17 09:48 02/05/17 10:17 02/05/17 10:45 02/05/17 10:47 Bedside Hematocrit 23% 25% 23% Bedside Venous pH 7.42 Bedside Venous pCO2 37mmHg Bedside Venous pO2 47mmHg Bedside Venous HCO3 24mmol/L Bedside Venous Blood Total CO2 25mmol/L Bedside Venous Blood O2 Saturation 83% Bedside Venous Blood Base Excess -1mmol/L POC Venous Hemoglobin (Calc) 7.8g/dL Bedside FiO2 100 100.0 100.0 Bedside Sodium 134mmol/L 136mmol/L 136mmol/L Bedside Potassium 3.8mmol/L 4.6mmol/L 4.7mmol/L Glucose Level 101mg/dL 97mg/dL 103mg/dL Bedside Ionized Calcium (Mac) 0.88mmol/L 0.93mmol/L 0.92mmol/L Bedside Hemoglobin (Calculated) 8.5g/dL 7.8g/dL Bedside Arterial pH 7.41 7.46 Bedside Arterial pCO2 47mmHg 44mmHg Bedside Arterial pO2 501mmHg 377mmHg Bedside Arterial HCO3 30mmol/L 31mmol/L Bedside Arterial Total CO2 31mmol/L 32mmol/L Arterial Bld O2 Saturation (Measur) 100% 100% Bedside Arterial Blood Base Excess 5mmol/L 7mmol/L Activated Clotting Time 500SEC Test 02/05/17 11:14 02/05/17 11:17 02/05/17 11:47 02/05/17 11:49 Activated Clotting Time 570SEC 446SEC Bedside Hemoglobin (Calculated) 8.5g/dL 7.8g/dL Bedside Hematocrit 25% 23% Bedside Arterial pH 7.46 7.42 Bedside Arterial pCO2 40mmHg 43mmHg Bedside Arterial pO2 327mmHg 318mmHg Bedside Arterial HCO3 28mmol/L 28mmol/L Bedside Arterial Total CO2 30mmol/L 30mmol/L Arterial Bld O2 Saturation (Measur) 100% 100% Bedside Arterial Blood Base Excess 5mmol/L 4mmol/L Bedside FiO2 80.0 80.0 Bedside Sodium 136mmol/L 135mmol/L Bedside Potassium 4.9mmol/L 4.9mmol/L Glucose Level 108mg/dL 107mg/dL Bedside Ionized Calcium (Mac) 0.93mmol/L 0.93mmol/L Test 02/05/17 12:12 02/05/17 12:14 02/05/17 12:16 02/05/17 13:15 Activated Clotting Time 105SEC Bedside Hemoglobin (Calculated) 7.5g/dL Bedside Hematocrit 22% Bedside Arterial pH 7.47 Bedside Arterial pCO2 38mmHg Bedside Arterial pO2 286mmHg Bedside Arterial HCO3 27mmol/L Bedside Arterial Total CO2 29mmol/L Arterial Bld O2 Saturation (Measur) 100% Bedside Arterial Blood Base Excess 4mmol/L Bedside FiO2 100.0 Bedside Sodium 135mmol/L Bedside Potassium 4.6mmol/L Glucose Level 101mg/dL Bedside Ionized Calcium (Mac) 1.45mmol/L White Blood Count 4.9x10^3/uL Hemoglobin 7.3g/dL Hematocrit 21.9% Platelet Count 90x10^3/uL Prothrombin Time 17.8SEC Prothromb Time International Ratio 1.6 Activated Partial Thromboplast Time 42SEC Fibrinogen 392mg/dL O2 Saturation 94% Arterial Blood pH 7.44 Arterial Blood pCO2 at Patient Temp 32mmHg Arterial Blood pO2 at Patient Temp 69mmHg Arterial Blood HCO3 21mmol/L Arterial Blood Base Excess -3mmol/L Oxyhemoglobin 93.0% Methemoglobin 0.2% Carbon Monoxide, Quantitative 0.3% FiO2 80 Test 02/05/17 14:15 02/05/17 14:20 02/05/17 17:00 02/05/17 17:30 O2 Saturation 88% Arterial Blood pH 7.39 Arterial Blood pCO2 at Patient Temp 34mmHg Arterial Blood pO2 at Patient Temp 57mmHg Arterial Blood HCO3 20mmol/L Arterial Blood Base Excess -4mmol/L FiO2 40 White Blood Count 6.2x10^3/uL 9.8x10^3/uL Red Blood Count 2.84x10^6/uL 2.71x10^6/uL Hemoglobin 8.7g/dL 8.1g/dL Hematocrit 26.0% 25.0% Mean Corpuscular Volume 92fL 92fL Mean Corpuscular Hemoglobin 31pg 30pg Mean Corpuscular Hemoglobin Concent 33g/dL 33g/dL Red Cell Distribution Width 14.8% 15.0% Platelet Count 135x10^3/uL 141x10^3/uL Prothrombin Time 14.9SEC Prothromb Time International Ratio 1.2 Sodium Level 137mmol/L Potassium Level 4.8mmol/L 5.5mmol/L Chloride Level 100mmol/L Carbon Dioxide Level 22mmol/L Anion Gap 15 Blood Urea Nitrogen 22mg/dL Creatinine 6.8mg/dL Estimated GFR (Cockcroft-Gault) 8.3 Glucose Level 136mg/dL Glucose (Fingerstick) 127mg/dL 104mg/dL Calcium Level 9.8mg/dL Magnesium Level 2.1mg/dL Test 02/05/17 19:02 02/05/17 20:13 02/05/17 21:58 02/06/17 00:11 Glucose (Fingerstick) 132mg/dL 122mg/dL 129mg/dL 138mg/dL Test 02/06/17 02:11 02/06/17 04:22 02/06/17 05:35 02/06/17 05:45 Glucose (Fingerstick) 130mg/dL 132mg/dL Potassium Level 6.8mmol/L 7.0mmol/L White Blood Count 14.5x10^3/uL Red Blood Count 2.71x10^6/uL Hemoglobin 8.1g/dL Hematocrit 25.3% Mean Corpuscular Volume 94fL Mean Corpuscular Hemoglobin 30pg Mean Corpuscular Hemoglobin Concent 32g/dL Red Cell Distribution Width 15.0% Platelet Count 157x10^3/uL Sodium Level 135mmol/L Chloride Level 98mmol/L Carbon Dioxide Level 17mmol/L Anion Gap 20 Blood Urea Nitrogen 30mg/dL Creatinine 8.3mg/dL Estimated GFR (Cockcroft-Gault) 6.6 Glucose Level 142mg/dL Calcium Level 9.2mg/dL Phosphorus Level 6.5mg/dL Magnesium Level 2.3mg/dL Creatine Kinase 669U/L Albumin 3.5g/dL Test 02/06/17 05:46 02/06/17 08:48 Glucose (Fingerstick) 127mg/dL 150mg/dL PE: GEN: NAD LUNGS: clear anteriorly, poor effort HEART: RRR ABD: BS+, soft NEURO/PSYCH: A & O 3 A/P: S/p CABG Recurrent pancreatitis - resolved GERD, h/o PUD -on PPI -- Stable GI-amado. Will follow. TOMMY SALVADOR Feb 06, 2017 09:34
[2017-02-06] MEDS ORDERED: CLONAZEPAM 0.5 MG TABLET PO PRN (10:15)
--- NOTE | 2017-02-06 10:20 | PDOC ---
PROGRESS NOTES Subjective Subjective Pt getting dialyzed at this time. Reports pain around surgery sites not relieved by pain meds. Also reports passing gas, but no BM. Objective Objective Vital Signs Date Time Temp Pulse Resp B/P Pulse Ox O2 Delivery O2 Flow Rate FiO2 02/06/17 09:32 20 95 Nasal Cannula 6.0 02/06/17 09:00 80 130/53 02/06/17 08:00 97.6 97.6 Intake and Output 02/06/17 07:00 Intake Total 1968 ml Output Total 650 ml Balance 1318 ml Intake Oral 880 ml IV Total 1088 ml Output Urine Total 0 ml Chest Tube Drainage Total 500 ml Drainage Total 150 ml Physical Exam Physical Exam Clean, dry intact wound dressing. Paced rhythm. (+) Pericardial and pleural rub Assessment Assessment Post CABGS, extubated Good progress Problems Medical Problems: (1) Flank pain Status: Acute (2) Pancreatitis Status: Acute (3) Unstable angina pectoris Status: Acute Plan Plan of Care POD #1 s/p CABG x5 Extubated 02/06/17 Agree with current plan. Cont cardiac monitoring per floor protocol. Comment Review of Relevant I have reviewed the following items dionte (where applicable) has been applied. Labs Laboratory Tests Test 02/04/17 11:10 02/05/17 03:35 02/05/17 08:27 02/05/17 08:30 Heparin Anti-Xa Act, Unfractionated 0.17IU/mL (0.30-0.70) White Blood Count 5.2x10^3/uL (4.0-11.0) Red Blood Count 2.81x10^6/uL (4.30-5.70) Hemoglobin 8.6g/dL (13.0-17.5) Hematocrit 26.2% (39.0-53.0) Mean Corpuscular Volume 93fL (79-100) Mean Corpuscular Hemoglobin 31pg (25-35) Mean Corpuscular Hemoglobin Concent 33g/dL (31-37) Red Cell Distribution Width 13.9% (11.5-14.5) Platelet Count 180x10^3/uL (140-400) Neutrophils (%) (Auto) 67% (31-73) Lymphocytes (%) (Auto) 16% (24-48) Monocytes (%) (Auto) 15% (0-9) Eosinophils (%) (Auto) 2% (0-3) Basophils (%) (Auto) 1% (0-3) Neutrophils # (Auto) 3.4x10^3uL (1.8-7.7) Lymphocytes # (Auto) 0.8x10^3/uL (1.0-4.8) Monocytes # (Auto) 0.8x10^3/uL (0.0-1.1) Eosinophils # (Auto) 0.1x10^3/uL (0.0-0.7) Basophils # (Auto) 0.0x10^3/uL (0.0-0.2) Sodium Level 141mmol/L (136-145) Potassium Level 4.0mmol/L (3.5-5.1) Chloride Level 101mmol/L (98-107) Carbon Dioxide Level 32mmol/L (21-32) Anion Gap 8 (6-14) Blood Urea Nitrogen 21mg/dL (8-26) Creatinine 6.3mg/dL (0.7-1.3) Estimated GFR (Cockcroft-Gault) 9.1 Glucose Level 94mg/dL (70-99) 100mg/dL (70-99) Calcium Level 8.4mg/dL (8.5-10.1) Phosphorus Level 4.2mg/dL (2.6-4.7) Magnesium Level 1.7mg/dL (1.8-2.4) Albumin 2.8g/dL (3.4-5.0) Activated Clotting Time 95SEC (90-125) Bedside Hemoglobin (Calculated) 8.2g/dL (14-18) Bedside Hematocrit 24% (37-52) Bedside Arterial pH 7.68 (7.35-7.45) Bedside Arterial pCO2 27mmHg (35-45) Bedside Arterial pO2 308mmHg (75-100) Bedside Arterial HCO3 32mmol/L (21-28) Bedside Arterial Total CO2 33mmol/L (21-32) Arterial Bld O2 Saturation (Measur) 100% (95-99) Bedside Arterial Blood Base Excess 12mmol/L (0-3) Bedside FiO2 100.0 Bedside Sodium 136mmol/L (135-145) Bedside Potassium 3.8mmol/L (3.5-5.0) Bedside Ionized Calcium (Mac) 0.95mmol/L (1.13-1.32) Test 02/05/17 08:46 02/05/17 09:19 02/05/17 09:21 02/05/17 09:48 Bedside Hematocrit 22% (37-52) 22% (37-52) 23% (37-52) Bedside Venous pH 7.57 (7.32-7.42) 7.42 (7.32-7.42) Bedside Venous pCO2 28mmHg (41-51) 37mmHg (41-51) Bedside Venous pO2 34mmHg (20-40) 47mmHg (20-40) Bedside Venous HCO3 26mmol/L (24-28) 24mmol/L (24-28) Bedside Venous Blood Total CO2 26mmol/L (21-32) 25mmol/L (21-32) Bedside Venous Blood O2 Saturation 76% 83% Bedside Venous Blood Base Excess 3mmol/L (0-3) -1mmol/L (0-3) POC Venous Hemoglobin (Calc) 7.5g/dL (14-18) 7.8g/dL (14-18) Bedside FiO2 100 100.0 100 Bedside Sodium 137mmol/L (135-145) 136mmol/L (135-145) 134mmol/L (135-145) Bedside Potassium 3.5mmol/L (3.5-5.0) 3.7mmol/L (3.5-5.0) 3.8mmol/L (3.5-5.0) Glucose Level 94mg/dL (70-99) 95mg/dL (70-99) 101mg/dL (70-99) Bedside Ionized Calcium (Mac) 0.97mmol/L (1.13-1.32) 0.96mmol/L (1.13-1.32) 0.88mmol/L (1.13-1.32) Activated Clotting Time 608SEC (90-125) Bedside Hemoglobin (Calculated) 7.5g/dL (14-18) Bedside Arterial pH 7.56 (7.35-7.45) Bedside Arterial pCO2 34mmHg (35-45) Bedside Arterial pO2 357mmHg (75-100) Bedside Arterial HCO3 30mmol/L (21-28) Bedside Arterial Total CO2 31mmol/L (21-32) Arterial Bld O2 Saturation (Measur) 100% (95-99) Bedside Arterial Blood Base Excess 8mmol/L (0-3) Test 02/05/17 10:17 02/05/17 10:45 02/05/17 10:47 02/05/17 11:14 Bedside Hemoglobin (Calculated) 8.5g/dL (14-18) 7.8g/dL (14-18) Bedside Hematocrit 25% (37-52) 23% (37-52) Bedside Arterial pH 7.41 (7.35-7.45) 7.46 (7.35-7.45) Bedside Arterial pCO2 47mmHg (35-45) 44mmHg (35-45) Bedside Arterial pO2 501mmHg (75-100) 377mmHg (75-100) Bedside Arterial HCO3 30mmol/L (21-28) 31mmol/L (21-28) Bedside Arterial Total CO2 31mmol/L (21-32) 32mmol/L (21-32) Arterial Bld O2 Saturation (Measur) 100% (95-99) 100% (95-99) Bedside Arterial Blood Base Excess 5mmol/L (0-3) 7mmol/L (0-3) Bedside FiO2 100.0 100.0 Bedside Sodium 136mmol/L (135-145) 136mmol/L (135-145) Bedside Potassium 4.6mmol/L (3.5-5.0) 4.7mmol/L (3.5-5.0) Glucose Level 97mg/dL (70-99) 103mg/dL (70-99) Bedside Ionized Calcium (Mac) 0.93mmol/L (1.13-1.32) 0.92mmol/L (1.13-1.32) Activated Clotting Time 500SEC (90-125) 570SEC (90-125) Test 02/05/17 11:17 02/05/17 11:47 02/05/17 11:49 02/05/17 12:12 Bedside Hemoglobin (Calculated) 8.5g/dL (14-18) 7.8g/dL (14-18) Bedside Hematocrit 25% (37-52) 23% (37-52) Bedside Arterial pH 7.46 (7.35-7.45) 7.42 (7.35-7.45) Bedside Arterial pCO2 40mmHg (35-45) 43mmHg (35-45) Bedside Arterial pO2 327mmHg (75-100) 318mmHg (75-100) Bedside Arterial HCO3 28mmol/L (21-28) 28mmol/L (21-28) Bedside Arterial Total CO2 30mmol/L (21-32) 30mmol/L (21-32) Arterial Bld O2 Saturation (Measur) 100% (95-99) 100% (95-99) Bedside Arterial Blood Base Excess 5mmol/L (0-3) 4mmol/L (0-3) Bedside FiO2 80.0 80.0 Bedside Sodium 136mmol/L (135-145) 135mmol/L (135-145) Bedside Potassium 4.9mmol/L (3.5-5.0) 4.9mmol/L (3.5-5.0) Glucose Level 108mg/dL (70-99) 107mg/dL (70-99) Bedside Ionized Calcium (Mac) 0.93mmol/L (1.13-1.32) 0.93mmol/L (1.13-1.32) Activated Clotting Time 446SEC (90-125) 105SEC (90-125) Test 02/05/17 12:14 02/05/17 12:16 02/05/17 13:15 02/05/17 14:15 Bedside Hemoglobin (Calculated) 7.5g/dL (14-18) Bedside Hematocrit 22% (37-52) Bedside Arterial pH 7.47 (7.35-7.45) Bedside Arterial pCO2 38mmHg (35-45) Bedside Arterial pO2 286mmHg (75-100) Bedside Arterial HCO3 27mmol/L (21-28) Bedside Arterial Total CO2 29mmol/L (21-32) Arterial Bld O2 Saturation (Measur) 100% (95-99) Bedside Arterial Blood Base Excess 4mmol/L (0-3) Bedside FiO2 100.0 Bedside Sodium 135mmol/L (135-145) Bedside Potassium 4.6mmol/L (3.5-5.0) Glucose Level 101mg/dL (70-99) Bedside Ionized Calcium (Mac) 1.45mmol/L (1.13-1.32) White Blood Count 4.9x10^3/uL (4.0-11.0) Hemoglobin 7.3g/dL (13.0-17.5) Hematocrit 21.9% (39.0-53.0) Platelet Count 90x10^3/uL (140-400) Prothrombin Time 17.8SEC (11.7-14.0) Prothromb Time International Ratio 1.6 (0.8-1.1) Activated Partial Thromboplast Time 42SEC (24-38) Fibrinogen 392mg/dL (200-440) O2 Saturation 94% (92-99) 88% (92-99) Arterial Blood pH 7.44 (7.35-7.45) 7.39 (7.35-7.45) Arterial Blood pCO2 at Patient Temp 32mmHg (35-46) 34mmHg (35-46) Arterial Blood pO2 at Patient Temp 69mmHg (65-108) 57mmHg (65-108) Arterial Blood HCO3 21mmol/L (21-28) 20mmol/L (21-28) Arterial Blood Base Excess -3mmol/L (-3-3) -4mmol/L (-3-3) Oxyhemoglobin 93.0% Methemoglobin 0.2% (0.0-1.9) Carbon Monoxide, Quantitative 0.3% (0.0-1.9) FiO2 80 40 Test 02/05/17 14:20 02/05/17 17:00 02/05/17 17:30 02/05/17 19:02 White Blood Count 6.2x10^3/uL (4.0-11.0) 9.8x10^3/uL (4.0-11.0) Red Blood Count 2.84x10^6/uL (4.30-5.70) 2.71x10^6/uL (4.30-5.70) Hemoglobin 8.7g/dL (13.0-17.5) 8.1g/dL (13.0-17.5) Hematocrit 26.0% (39.0-53.0) 25.0% (39.0-53.0) Mean Corpuscular Volume 92fL (79-100) 92fL (79-100) Mean Corpuscular Hemoglobin 31pg (25-35) 30pg (25-35) Mean Corpuscular Hemoglobin Concent 33g/dL (31-37) 33g/dL (31-37) Red Cell Distribution Width 14.8% (11.5-14.5) 15.0% (11.5-14.5) Platelet Count 135x10^3/uL (140-400) 141x10^3/uL (140-400) Prothrombin Time 14.9SEC (11.7-14.0) Prothromb Time International Ratio 1.2 (0.8-1.1) Sodium Level 137mmol/L (136-145) Potassium Level 4.8mmol/L (3.5-5.1) 5.5mmol/L (3.5-5.1) Chloride Level 100mmol/L (98-107) Carbon Dioxide Level 22mmol/L (21-32) Anion Gap 15 (6-14) Blood Urea Nitrogen 22mg/dL (8-26) Creatinine 6.8mg/dL (0.7-1.3) Estimated GFR (Cockcroft-Gault) 8.3 Glucose Level 136mg/dL (70-99) Glucose (Fingerstick) 127mg/dL (70-99) 104mg/dL (70-99) 132mg/dL (70-99) Calcium Level 9.8mg/dL (8.5-10.1) Magnesium Level 2.1mg/dL (1.8-2.4) Test 02/05/17 20:13 02/05/17 21:58 02/06/17 00:11 02/06/17 02:11 Glucose (Fingerstick) 122mg/dL (70-99) 129mg/dL (70-99) 138mg/dL (70-99) 130mg/dL (70-99) Test 02/06/17 04:22 02/06/17 05:35 02/06/17 05:45 02/06/17 05:46 Glucose (Fingerstick) 132mg/dL (70-99) 127mg/dL (70-99) Potassium Level 6.8mmol/L (3.5-5.1) 7.0mmol/L (3.5-5.1) White Blood Count 14.5x10^3/uL (4.0-11.0) Red Blood Count 2.71x10^6/uL (4.30-5.70) Hemoglobin 8.1g/dL (13.0-17.5) Hematocrit 25.3% (39.0-53.0) Mean Corpuscular Volume 94fL (79-100) Mean Corpuscular Hemoglobin 30pg (25-35) Mean Corpuscular Hemoglobin Concent 32g/dL (31-37) Red Cell Distribution Width 15.0% (11.5-14.5) Platelet Count 157x10^3/uL (140-400) Sodium Level 135mmol/L (136-145) Chloride Level 98mmol/L (98-107) Carbon Dioxide Level 17mmol/L (21-32) Anion Gap 20 (6-14) Blood Urea Nitrogen 30mg/dL (8-26) Creatinine 8.3mg/dL (0.7-1.3) Estimated GFR (Cockcroft-Gault) 6.6 Glucose Level 142mg/dL (70-99) Calcium Level 9.2mg/dL (8.5-10.1) Phosphorus Level 6.5mg/dL (2.6-4.7) Magnesium Level 2.3mg/dL (1.8-2.4) Creatine Kinase 669U/L (39-308) Albumin 3.5g/dL (3.4-5.0) Test 02/06/17 08:48 Glucose (Fingerstick) 150mg/dL (70-99) Laboratory Tests Test 02/05/17 10:17 02/05/17 10:45 02/05/17 10:47 02/05/17 11:14 Bedside Hemoglobin (Calculated) 8.5g/dL (14-18) 7.8g/dL (14-18) Bedside Hematocrit 25% (37-52) 23% (37-52) Bedside Arterial pH 7.41 (7.35-7.45) 7.46 (7.35-7.45) Bedside Arterial pCO2 47mmHg (35-45) 44mmHg (35-45) Bedside Arterial pO2 501mmHg (75-100) 377mmHg (75-100) Bedside Arterial HCO3 30mmol/L (21-28) 31mmol/L (21-28) Bedside Arterial Total CO2 31mmol/L (21-32) 32mmol/L (21-32) Arterial Bld O2 Saturation (Measur) 100% (95-99) 100% (95-99) Bedside Arterial Blood Base Excess 5mmol/L (0-3) 7mmol/L (0-3) Bedside FiO2 100.0 100.0 Bedside Sodium 136mmol/L (135-145) 136mmol/L (135-145) Bedside Potassium 4.6mmol/L (3.5-5.0) 4.7mmol/L (3.5-5.0) Glucose Level 97mg/dL (70-99) 103mg/dL (70-99) Bedside Ionized Calcium (Mac) 0.93mmol/L (1.13-1.32) 0.92mmol/L (1.13-1.32) Activated Clotting Time 500SEC (90-125) 570SEC (90-125) Test 02/05/17 11:17 02/05/17 11:47 02/05/17 11:49 02/05/17 12:12 Bedside Hemoglobin (Calculated) 8.5g/dL (14-18) 7.8g/dL (14-18) Bedside Hematocrit 25% (37-52) 23% (37-52) Bedside Arterial pH 7.46 (7.35-7.45) 7.42 (7.35-7.45) Bedside Arterial pCO2 40mmHg (35-45) 43mmHg (35-45) Bedside Arterial pO2 327mmHg (75-100) 318mmHg (75-100) Bedside Arterial HCO3 28mmol/L (21-28) 28mmol/L (21-28) Bedside Arterial Total CO2 30mmol/L (21-32) 30mmol/L (21-32) Arterial Bld O2 Saturation (Measur) 100% (95-99) 100% (95-99) Bedside Arterial Blood Base Excess 5mmol/L (0-3) 4mmol/L (0-3) Bedside FiO2 80.0 80.0 Bedside Sodium 136mmol/L (135-145) 135mmol/L (135-145) Bedside Potassium 4.9mmol/L (3.5-5.0) 4.9mmol/L (3.5-5.0) Glucose Level 108mg/dL (70-99) 107mg/dL (70-99) Bedside Ionized Calcium (Mac) 0.93mmol/L (1.13-1.32) 0.93mmol/L (1.13-1.32) Activated Clotting Time 446SEC (90-125) 105SEC (90-125) Test 02/05/17 12:14 02/05/17 12:16 02/05/17 13:15 02/05/17 14:15 Bedside Hemoglobin (Calculated) 7.5g/dL (14-18) Bedside Hematocrit 22% (37-52) Bedside Arterial pH 7.47 (7.35-7.45) Bedside Arterial pCO2 38mmHg (35-45) Bedside Arterial pO2 286mmHg (75-100) Bedside Arterial HCO3 27mmol/L (21-28) Bedside Arterial Total CO2 29mmol/L (21-32) Arterial Bld O2 Saturation (Measur) 100% (95-99) Bedside Arterial Blood Base Excess 4mmol/L (0-3) Bedside FiO2 100.0 Bedside Sodium 135mmol/L (135-145) Bedside Potassium 4.6mmol/L (3.5-5.0) Glucose Level 101mg/dL (70-99) Bedside Ionized Calcium (Mac) 1.45mmol/L (1.13-1.32) White Blood Count 4.9x10^3/uL (4.0-11.0) Hemoglobin 7.3g/dL (13.0-17.5) Hematocrit 21.9% (39.0-53.0) Platelet Count 90x10^3/uL (140-400) Prothrombin Time 17.8SEC (11.7-14.0) Prothromb Time International Ratio 1.6 (0.8-1.1) Activated Partial Thromboplast Time 42SEC (24-38) Fibrinogen 392mg/dL (200-440) O2 Saturation 94% (92-99) 88% (92-99) Arterial Blood pH 7.44 (7.35-7.45) 7.39 (7.35-7.45) Arterial Blood pCO2 at Patient Temp 32mmHg (35-46) 34mmHg (35-46) Arterial Blood pO2 at Patient Temp 69mmHg (65-108) 57mmHg (65-108) Arterial Blood HCO3 21mmol/L (21-28) 20mmol/L (21-28) Arterial Blood Base Excess -3mmol/L (-3-3) -4mmol/L (-3-3) Oxyhemoglobin 93.0% Methemoglobin 0.2% (0.0-1.9) Carbon Monoxide, Quantitative 0.3% (0.0-1.9) FiO2 80 40 Test 02/05/17 14:20 02/05/17 17:00 02/05/17 17:30 02/05/17 19:02 White Blood Count 6.2x10^3/uL (4.0-11.0) 9.8x10^3/uL (4.0-11.0) Red Blood Count 2.84x10^6/uL (4.30-5.70) 2.71x10^6/uL (4.30-5.70) Hemoglobin 8.7g/dL (13.0-17.5) 8.1g/dL (13.0-17.5) Hematocrit 26.0% (39.0-53.0) 25.0% (39.0-53.0) Mean Corpuscular Volume 92fL (79-100) 92fL (79-100) Mean Corpuscular Hemoglobin 31pg (25-35) 30pg (25-35) Mean Corpuscular Hemoglobin Concent 33g/dL (31-37) 33g/dL (31-37) Red Cell Distribution Width 14.8% (11.5-14.5) 15.0% (11.5-14.5) Platelet Count 135x10^3/uL (140-400) 141x10^3/uL (140-400) Prothrombin Time 14.9SEC (11.7-14.0) Prothromb Time International Ratio 1.2 (0.8-1.1) Sodium Level 137mmol/L (136-145) Potassium Level 4.8mmol/L (3.5-5.1) 5.5mmol/L (3.5-5.1) Chloride Level 100mmol/L (98-107) Carbon Dioxide Level 22mmol/L (21-32) Anion Gap 15 (6-14) Blood Urea Nitrogen 22mg/dL (8-26) Creatinine 6.8mg/dL (0.7-1.3) Estimated GFR (Cockcroft-Gault) 8.3 Glucose Level 136mg/dL (70-99) Glucose (Fingerstick) 127mg/dL (70-99) 104mg/dL (70-99) 132mg/dL (70-99) Calcium Level 9.8mg/dL (8.5-10.1) Magnesium Level 2.1mg/dL (1.8-2.4) Test 02/05/17 20:13 02/05/17 21:58 02/06/17 00:11 02/06/17 02:11 Glucose (Fingerstick) 122mg/dL (70-99) 129mg/dL (70-99) 138mg/dL (70-99) 130mg/dL (70-99) Test 02/06/17 04:22 02/06/17 05:35 02/06/17 05:45 02/06/17 05:46 Glucose (Fingerstick) 132mg/dL (70-99) 127mg/dL (70-99) Potassium Level 6.8mmol/L (3.5-5.1) 7.0mmol/L (3.5-5.1) White Blood Count 14.5x10^3/uL (4.0-11.0) Red Blood Count 2.71x10^6/uL (4.30-5.70) Hemoglobin 8.1g/dL (13.0-17.5) Hematocrit 25.3% (39.0-53.0) Mean Corpuscular Volume 94fL (79-100) Mean Corpuscular Hemoglobin 30pg (25-35) Mean Corpuscular Hemoglobin Concent 32g/dL (31-37) Red Cell Distribution Width 15.0% (11.5-14.5) Platelet Count 157x10^3/uL (140-400) Sodium Level 135mmol/L (136-145) Chloride Level 98mmol/L (98-107) Carbon Dioxide Level 17mmol/L (21-32) Anion Gap 20 (6-14) Blood Urea Nitrogen 30mg/dL (8-26) Creatinine 8.3mg/dL (0.7-1.3) Estimated GFR (Cockcroft-Gault) 6.6 Glucose Level 142mg/dL (70-99) Calcium Level 9.2mg/dL (8.5-10.1) Phosphorus Level 6.5mg/dL (2.6-4.7) Magnesium Level 2.3mg/dL (1.8-2.4) Creatine Kinase 669U/L (39-308) Albumin 3.5g/dL (3.4-5.0) Test 02/06/17 08:48 Glucose (Fingerstick) 150mg/dL (70-99) Microbiology 02/03/17 Throat Culture - Final, Complete 02/03/17 - Final, Complete Medications Current Medications Hydromorphone HCl (Dilaudid) 1 mg 1X ONCE IV Last administered on 01/28/17 23 :57; Start 01/28/17 at 23:30; Stop 01/28/17 at 23:31; Status DC Ondansetron HCl 4 mg 4 mg 1X ONCE IV Last administered on 01/28/17 23:57; Start 01/28/17 at 23:30; Stop 01/28/17 at 23:31; Status DC Sodium Chloride (Iv Sodium Chloride 0.9% 500ml Bag) 500 ml @ 0 mls/hr 1X ONCE IV Last administered on 01/28/17 23:39; Start 01/28/17 at 23:30; Stop at 23:31; Status DC Diphenhydramine HCl (Benadryl) 50 mg 1X ONCE IVP Last administered on 00:29; Start 01/29/17 at 00:30; Stop 01/29/17 at 00:31; Status DC Diphenhydramine HCl (Benadryl) 50 mg STK-MED ONCE .ROUTE ; Start 01/29/17 at 00: 26; Stop 01/29/17 at 00:27; Status DC Morphine Sulfate 4 mg 1X ONCE IV Last administered on 01/29/17 03:55; Start 01/29/17 at 02:15; Stop 01/29/17 at 02:16; Status DC Ondansetron HCl (Zofran) 4 mg PRN Q8HRS PRN IV NAUSEA/VOMITING; Start 01/29/17 at 03:00; Stop 01/30/17 at 02:59; Status DC Morphine Sulfate 4 mg 4 mg PRN Q2HR PRN IV PAIN Last administered on 01/29/17 09:59; Start 01/29/17 at 03:00; Stop 01/29/17 at 11:47; Status DC Sodium Chloride (Iv Sodium Chloride 0.9% 1000ml Bag) 1,000 ml @ 50 mls/hr Q20H IV Last administered on 01/30/17 07:28; Start 01/29/17 at 02:12; Stop at 02:11; Status DC Alprazolam (Xanax) 0.5 mg PRN Q6HRS PRN PO ANXIETY / AGITATION Last administered on 02/03/17 07:45; Start 01/29/17 at 11:30; Stop 02/03/17 at 12:13 ; Status DC Amlodipine Besylate (Norvasc) 10 mg BID PO Last administered on 02/04/17 20:55 ; Start 01/29/17 at 12:00 Aspirin (Children'S Aspirin) 324 mg DAILY PO ; Start 01/29/17 at 12:00; Stop at 18:32; Status DC Calcium Carbonate/ Glycine (Tums) 800 mg TIDAC PO Last administered on 17:19; Start 01/29/17 at 11:30 Clonidine HCl (Catapres) 0.3 mg DAILY PO Last administered on 02/04/17 14:59; Start 01/30/17 at 09:00; Stop 02/06/17 at 08:54; Status DC Clopidogrel Bisulfate (Plavix) 75 mg DAILY PO ; Start 01/29/17 at 12:00; Stop at 09:45; Status DC Vitamin B Complex/ Vitamin C (Nephro-Chilo) 1 tab DAILY PO Last administered on 02/06/17 08:13; Start 01/29/17 at 12:00 Furosemide (Lasix) 80 mg [id number] PO Last administered on 02/04/17 15:11; Start 01/29/17 at 14:00; Stop 02/06/17 at 08:54; Status DC Acetaminophen/ Hydrocodone Bitart (Lortab 5/325) 1 tab PRN Q6HRS PRN PO PAIN; Start 01/29/17 at 11:30; Stop 01/29/17 at 18:58; Status DC Isosorbide Mononitrate (Imdur) 30 mg DAILY PO Last administered on 02/04/17 15 :01; Start 01/29/17 at 12:00; Stop 02/06/17 at 08:54; Status DC Paroxetine HCl (Paxil) 40 mg DAILY PO Last administered on 02/06/17 09:31; Start 01/29/17 at 12:00 Tamsulosin HCl (Flomax) 0.4 mg QHS PO Last administered on 02/04/17 20:54; Start 01/29/17 at 21:00 Hydralazine HCl (Apresoline) 100 mg TID PO Last administered on 02/04/17 20:54 ; Start 01/29/17 at 14:00 Losartan Potassium (Cozaar) 100 mg QHS PO Last administered on 02/04/17 20:56 ; Start 01/29/17 at 21:00 Metoprolol Tartrate (Lopressor) 100 mg BID PO Last administered on 02/05/17 06 :34; Start 01/29/17 at 12:00; Stop 02/05/17 at 13:28; Status DC Pantoprazole Sodium (Protonix) 40 mg DAILYAC PO Last administered on 02/04/17 15:01; Start 01/29/17 at 12:00 Darbepoetin Percy (Aranesp) 60 mcg [id number] SQ Last administered on 02/02/17 21 :15; Start 02/02/17 at 21:00 Morphine Sulfate 6 mg 6 mg PRN Q2HR PRN IV PAIN Last administered on 01/30/17 19:22; Start 01/29/17 at 11:45; Stop 02/01/17 at 15:20; Status DC Sodium Chloride (Iv Sodium Chloride 0.9% 1000ml Bag) 1,000 ml @ 1,000 mls/hr Q1H PRN IV hypotension; Start 01/29/17 at 12:55; Stop 01/29/17 at 18:54; Status DC Diphenhydramine HCl (Benadryl) 25 mg 1X PRN PRN IV ITCHING Last administered on 01/29/17 19:12; Start 01/29/17 at 13:00; Stop 01/30/17 at 12:59; Status DC Diphenhydramine HCl (Benadryl) 25 mg 1X PRN PRN IV ITCHING Last administered on 01/29/17 13:16; Start 01/29/17 at 13:00; Stop 01/30/17 at 12:59; Status DC Info (PHARMACY MONITORING -- do not chart) 1 each PRN DAILY PRN MC SEE COMMENTS ; Start 01/29/17 at 13:00; Status UNV Info (PHARMACY MONITORING -- do not chart) 1 each PRN DAILY PRN MC SEE COMMENTS ; Start 01/29/17 at 13:00; Stop 02/03/17 at 09:04; Status DC Nitroglycerin (Nitrostat) 0.4 mg STK-MED ONCE SL ; Start 01/29/17 at 16:55; Stop 01/29/17 at 16:56; Status DC Heparin Sodium (Porcine) 4000 unit 4,000 unit 1X ONCE IV Last administered on 01/29/17 17:37; Start 01/29/17 at 17:30; Stop 01/29/17 at 17:31; Status DC Heparin Sodium/ Sodium Chloride 500 ml @ As Directed STK-MED ONCE .ROUTE ; Start 01/29/17 at 17:54; Stop 01/29/17 at 17:55; Status DC Lidocaine HCl 20 ml STK-MED ONCE .ROUTE ; Start 01/29/17 at 17:54; Stop at 17:55; Status DC Iodixanol (Visipaque 320) 100 ml STK-MED ONCE .ROUTE ; Start 01/29/17 at 17:54; Stop 01/29/17 at 17:55; Status DC Metoprolol Tartrate (Lopressor) 5 mg STK-MED ONCE .ROUTE ; Start 01/29/17 at 18: 05; Stop 01/29/17 at 18:06; Status DC Fentanyl Citrate (Fentanyl 2ml Vial) 100 mcg STK-MED ONCE .ROUTE ; Start at 18:05; Stop 01/29/17 at 18:06; Status DC Midazolam HCl 2 mg 2 mg STK-MED ONCE .ROUTE ; Start 01/29/17 at 18:05; Stop at 18:06; Status DC Heparin Sodium/ Dextrose 500 ml @ As Directed STK-MED ONCE IV ; Start 01/29/17 at 18:18; Stop 01/29/17 at 18:19; Status DC Heparin Sodium (Porcine) 10,000 unit STK-MED ONCE .ROUTE ; Start 01/29/17 at 18: 18; Stop 01/29/17 at 18:19; Status DC Metoprolol Tartrate (Lopressor) 5 mg STK-MED ONCE .ROUTE ; Start 01/29/17 at 18: 25; Stop 01/29/17 at 18:26; Status DC Heparin Sodium/ Sodium Chloride 1,000 unit 1X ONCE IART Last administered on 18:51; Start 01/29/17 at 18:45; Stop 01/29/17 at 18:53; Status DC Heparin Sodium/ Sodium Chloride 1,000 unit 1X ONCE IART Last administered on 18:51; Start 01/29/17 at 18:45; Stop 01/29/17 at 18:53; Status DC Midazolam HCl (Versed) 1 mg 1X ONCE IV Last administered on 01/29/17 18:53; Start 01/29/17 at 18:45; Stop 01/29/17 at 18:53; Status DC Fentanyl Citrate (Fentanyl 2ml Vial) 50 mcg 1X ONCE IV Last administered on 18:53; Start 01/29/17 at 18:45; Stop 01/29/17 at 18:53; Status DC Iodixanol (Visipaque 320) 105 ml 1X ONCE IART Last administered on 01/29/17 18:52; Start 01/29/17 at 18:45; Stop 01/29/17 at 18:53; Status DC Heparin Sodium (Porcine) 4000 unit 4,000 unit 1X ONCE IV Last administered on 01/29/17 18:53; Start 01/29/17 at 18:45; Stop 01/29/17 at 18:53; Status DC Heparin Sodium/ Dextrose 500 ml @ 20 mls/hr CONT PRN IV SEE I/O RECORD; Start 01/29/17 at 18:24; Stop 01/30/17 at 14:01; Status DC Metoprolol Tartrate (Lopressor) 10 mg 1X ONCE IVP Last administered on 18:52; Start 01/29/17 at 18:45; Stop 01/29/17 at 18:53; Status DC Lidocaine HCl 10 ml 1X ONCE IJ Last administered on 01/29/17 18:52; Start at 18:45; Stop 01/29/17 at 18:53; Status DC Sodium Chloride (Normal Saline Flush) 3 ml QSHIFT PRN IV AFTER MEDS AND BLOOD DRAWS; Start 01/29/17 at 18:45 Docusate Sodium (Colace) 100 mg BID PO Last administered on 02/04/17 20:54; Start 01/29/17 at 21:00 Fentanyl Citrate (Fentanyl 2ml Vial) 50 mcg PRN Q1HR PRN IV SEVERE PAIN Last administered on 02/05/17 22:00; Start 01/29/17 at 18:45 Cyclobenzaprine HCl (Flexeril) 10 mg PRN TID PRN PO MUSCLE SPASMS Last administered on 01/30/17 05:22; Start 01/29/17 at 18:45 Ondansetron HCl (Zofran) 4 mg PRN Q6HRS PRN IV NAUSEA/VOMITING; Start 01/29/17 at 18:45; Stop 02/05/17 at 13:28; Status DC Nitroglycerin (Nitrostat) 0.4 mg PRN Q5MIN PRN SL CHEST PAIN; Start 01/29/17 at 18:45 Acetaminophen/ Hydrocodone Bitart (Lortab 5/325) 1 tab PRN Q4HRS PRN PO MILD PAIN Last administered on 02/04/17 17:16; Start 01/29/17 at 18:45 Diltiazem HCl 5 mg 5 mg 1X ONCE IVP Last administered on 01/29/17 19:23; Start 01/29/17 at 19:15; Stop 01/29/17 at 19:18; Status DC Diltiazem HCl/ Dextrose (Cardizem) 125 ml @ 0 mls/hr CONT PRN IV SEE I/O RECORD ; Start 01/29/17 at 19:15; Stop 02/03/17 at 12:13; Status DC Diphenhydramine HCl (Benadryl) 50 mg PRN Q8HRS PRN IVP ITCHING Last administered on 02/02/17 09:41; Start 01/29/17 at 19:15; Stop 02/03/17 at 09:05 ; Status DC Nitroglycerin (Nitrostat) 0.4 mg STK-MED ONCE SL ; Start 01/29/17 at 17:00; Stop 01/30/17 at 08:02; Status DC Info (Anti-Coagulation Monitoring By Pharmacy) 1 each PRN DAILY PRN MC SEE COMMENTS Last administered on 02/04/17 09:51; Start 01/30/17 at 10:45; Stop at 18:43; Status DC Heparin Sodium (Porcine) 3000 unit 3,000 unit 1X ONCE IV Last administered on 01/30/17 17:36; Start 01/30/17 at 18:00; Stop 01/30/17 at 18:01; Status DC Heparin Sodium/ Dextrose 500 ml @ 24 mls/hr CONT PRN IV SEE I/O RECORD Last administered on 02/03/17 05:47; Start 01/30/17 at 18:00; Stop 02/04/17 at 18:41 ; Status DC Sodium Chloride (Iv Sodium Chloride 0.9% 1000ml Bag) 1,000 ml @ 50 mls/hr Q20H IV Last administered on 01/31/17 23:30; Start 01/31/17 at 02:45; Stop at 12:13; Status DC Dextrose 25 gm 1X ONCE IV Last administered on 01/31/17 06:05; Start at 06:30; Stop 01/31/17 at 06:31; Status DC Insulin Human Regular (Novolin R Vial) 10 unit 1X ONCE IV Last administered on 01/31/17 06:09; Start 01/31/17 at 06:30; Stop 01/31/17 at 06:31; Status DC Dextrose 25 gm 25 gm 1X ONCE IV Last administered on 01/31/17 09:04; Start at 09:00; Stop 01/31/17 at 09:03; Status DC Sodium Chloride 1,000 ml @ 1,000 mls/hr Q1H PRN IV hypotension; Start 01/31/17 at 09:28; Stop 01/31/17 at 15:27; Status DC Albumin Human (Albuminar) 200 ml @ 200 mls/hr 1X PRN PRN IV Hypotension; Start 01/31/17 at 09:30; Stop 01/31/17 at 15:29; Status DC Acetaminophen (Tylenol) 500 mg 1X PRN PRN PO MILD PAIN / TEMP; Start 01/31/17 at 09:30; Stop 02/01/17 at 09:29; Status DC Diphenhydramine HCl (Benadryl) 25 mg 1X PRN PRN IV ITCHING Last administered on 01/31/17 18:05; Start 01/31/17 at 09:30; Stop 02/01/17 at 09:29; Status DC Diphenhydramine HCl (Benadryl) 25 mg 1X PRN PRN IV ITCHING; Start 01/31/17 at 09:30; Stop 02/01/17 at 09:29; Status DC Info (PHARMACY MONITORING -- do not chart) 1 each PRN DAILY PRN MC SEE COMMENTS ; Start 01/31/17 at 09:30; Status UNV Diphenhydramine HCl (Benadryl) 50 mg PRN Q6HRS PRN IVP ITCHING Last administered on 02/04/17 23:01; Start 02/01/17 at 15:15 Fentanyl Citrate (Fentanyl 2ml Vial) 25 mcg PRN Q4HRS PRN IV MODERATE PAIN; Start 02/01/17 at 15:15 Diphenhydramine HCl (Benadryl) 25 mg 1X PRN PRN IV ITCHING; Start 02/02/17 at 09:30; Stop 02/03/17 at 09:29; Status DC Info (PHARMACY MONITORING -- do not chart) 1 each PRN DAILY PRN MC SEE COMMENTS ; Start 02/02/17 at 09:30; Stop 02/03/17 at 09:05; Status DC Info (PHARMACY MONITORING -- do not chart) 1 each PRN DAILY PRN MC SEE COMMENTS ; Start 02/02/17 at 09:30; Status Cancel Throat Lozenges (Cepacol Sore Throat Lozenge) 1 estelita PRN Q2HRS PRN PO SORE THROAT Last administered on 02/03/17 20:49; Start 02/03/17 at 07:15; Stop 02/05 at 13:28; Status DC Alprazolam (Xanax) 0.25 mg PRN Q6HRS PRN PO ANXIETY / AGITATION, 1ST CHOIC Last administered on 02/03/17 14:15; Start 02/03/17 at 12:15 Alprazolam 0.5 mg 0.5 mg PRN Q6HRS PRN PO ANXIETY / AGITATION, 2ND CHOIC Last administered on 02/06/17 08:13; Start 02/03/17 at 12:30 Vancomycin HCl 250 ml @ 250 mls/hr 1X PREOP ONCE IV Last administered on 02/05 08:33; Start 02/05/17 at 06:00; Stop 02/05/17 at 06:59; Status DC Ondansetron HCl (Zofran) 4 mg PRN Q6HRS PRN IV Nausea; Start 02/05/17 at 07:00 ; Stop 02/05/17 at 13:28; Status DC Fentanyl Citrate (Fentanyl 2ml Vial) 25 mcg PRN Q5MIN PRN IV MILD PAIN; Start 02/05/17 at 07:00; Stop 02/05/17 at 22:13; Status DC Fentanyl Citrate (Fentanyl 2ml Vial) 50 mcg PRN Q5MIN PRN IV MODERATE PAIN; Start 02/05/17 at 07:00; Stop 02/05/17 at 22:13; Status DC Morphine Sulfate 1 mg 1 mg PRN Q10MIN PRN IV SEVERE PAIN Last administered on 19:01; Start 02/05/17 at 07:00; Stop 02/06/17 at 06:59; Status DC Lactated Ringer's (Iv Lactated Ringers) 1,000 ml @ 0 mls/hr Q0M IV Last administered on 02/05/17 07:32; Start 02/05/17 at 07:00; Stop 02/05/17 at 13:28 ; Status DC Lidocaine HCl 2 ml 1X PRN PRN ID IV START; Start 02/05/17 at 07:00; Stop at 06:59; Status DC Hydromorphone HCl (Dilaudid) 0.5 mg PRN Q10MIN PRN IV SEVERE PAIN, Second choice; Start 02/05/17 at 07:00; Stop 02/06/17 at 06:59; Status DC Prochlorperazine Edisylate 5 mg 5 mg PACU PRN PRN IV NAUSEA; Start 02/05/17 at 07:00; Stop 02/06/17 at 06:59; Status DC Sodium Chloride (Iv Sodium Chloride 0.9% 1000ml Bag) 1,000 ml @ 1,000 mls/hr Q1H PRN IV hypotension; Start 02/04/17 at 09:55; Stop 02/04/17 at 15:54; Status DC Info (PHARMACY MONITORING -- do not chart) 1 each PRN DAILY PRN MC SEE COMMENTS ; Start 02/04/17 at 10:00 Throat Lozenges 1 estelita 1 estelita PRN Q2HRS PRN PO SORE THROAT; Start 02/04/17 at 11: 00 Magnesium Sulfate/ Dextrose 50 ml @ 25 mls/hr PRN DAILY PRN IV for Mag < 1.7 on am labs; Start 02/04/17 at 11:30; Stop 02/05/17 at 13:28; Status DC Potassium Chloride 70 meq/ Sodium Bicarbonate 12.5 meq/Lidocaine HCl 24 ml/ Parenteral Electrolytes 571.5 ml @ 571.5 mls/ hr 1X PERIOP ONCE IRR Last administered on 02/05/17 09:42; Start 02/05/17 at 06:00; Stop 02/05/17 at 06:59 ; Status DC Potassium Chloride 15 meq/ Sodium Bicarbonate 12.5 meq/Parenteral Electrolytes 520 ml @ 520 mls/hr 1X PERIOP ONCE IRR Last administered on 02/05/17 09:42; Start 02/05/17 at 06:00; Stop 02/05/17 at 06:59; Status DC Heparin Sodium (Porcine)/ Lactated Ringer's (Iv Lactated Ringers) 1,020 ml @ 1, 020 mls/hr 1X PERIOP ONCE IRR Last administered on 02/05/17 08:42; Start at 06:00; Stop 02/05/17 at 06:59; Status DC Aminocaproic Acid (Amicar) 5,000 mg STK-MED ONCE IV ; Start 02/05/17 at 06:13; Stop 02/05/17 at 06:14; Status DC Etomidate (Amidate) 20 mg STK-MED ONCE IV ; Start 02/05/17 at 06:13; Stop at 06:14; Status DC Lidocaine HCl 100 mg STK-MED ONCE .ROUTE ; Start 02/05/17 at 06:13; Stop at 06:14; Status DC Rocuronium [place] (Zemuron) 100 mg STK-MED ONCE .ROUTE ; Start 02/05/17 at 06: 14; Stop 02/05/17 at 06:15; Status DC Ephedrine Sulfate 50 mg STK-MED ONCE IV ; Start 02/05/17 at 06:14; Stop at 06:15; Status DC Phenylephrine HCl (Alexis-Synephrine Inj) 10 mg STK-MED ONCE .ROUTE ; Start at 06:14; Stop 02/05/17 at 06:15; Status DC Sufentanil Citrate (Sufenta) 100 mcg STK-MED ONCE .ROUTE ; Start 02/05/17 at 06: 14; Stop 02/05/17 at 06:15; Status DC Midazolam HCl (Versed) 2 mg STK-MED ONCE .ROUTE ; Start 02/05/17 at 06:14; Stop 02/05/17 at 06:15; Status DC Fentanyl Citrate 100 mcg 100 mcg STK-MED ONCE .ROUTE ; Start 02/05/17 at 06:15; Stop 02/05/17 at 06:16; Status DC Nitroglycerin/ Dextrose (Nitroglycerin Drip) 250 ml @ As Directed STK-MED ONCE IV ; Start 02/05/17 at 06:15; Stop 02/05/17 at 06:16; Status DC Heparin Sodium (Porcine) 30,000 unit STK-MED ONCE .ROUTE ; Start 02/05/17 at 06: 16; Stop 02/05/17 at 06:17; Status DC Cellulose 1 each STK-MED ONCE .ROUTE Last administered on 02/05/17 08:42; Start 02/05/17 at 06:42; Stop 02/05/17 at 06:43; Status DC Papaverine HCl 60 mg STK-MED ONCE .ROUTE Last administered on 02/05/17 08:42; Start 02/05/17 at 06:42; Stop 02/05/17 at 06:43; Status DC Aspirin (Aspirin) 300 mg STK-MED ONCE .ROUTE Last administered on 3/21/17at 12: 58; Start 02/05/17 at 06:42; Stop 02/05/17 at 06:43; Status DC Mineral Oil (Muri-Lube) 10 ml STK-MED ONCE MC Last administered on 02/05/17 12 :10; Start 02/05/17 at 06:43; Stop 02/05/17 at 06:44; Status DC Sodium Chloride 50 ml 50 ml STK-MED ONCE IJ Last administered on 02/05/17 08: 42; Start 02/05/17 at 06:43; Stop 02/05/17 at 06:44; Status DC Mannitol (Mannitol Iv Soln) 500 ml @ 0 mls/hr 1X ONCE IV ; Start 02/05/17 at 07 :15; Stop 02/05/17 at 07:16; Status DC Sufentanil Citrate (Sufenta) 100 mcg STK-MED ONCE .ROUTE ; Start 02/05/17 at 08: 01; Stop 02/05/17 at 08:02; Status DC Midazolam HCl (Versed) 5 mg STK-MED ONCE .ROUTE ; Start 02/05/17 at 09:10; Stop 02/05/17 at 09:11; Status DC Heparin Sodium (Porcine) 10,000 unit STK-MED ONCE .ROUTE ; Start 02/05/17 at 09: 15; Stop 02/05/17 at 09:16; Status DC Rocuronium [place] (Zemuron) 100 mg STK-MED ONCE .ROUTE ; Start 02/05/17 at 09: 43; Stop 02/05/17 at 09:44; Status DC Heparin Sodium (Porcine) 10,000 unit STK-MED ONCE .ROUTE ; Start 02/05/17 at 10: 57; Stop 02/05/17 at 10:58; Status DC Protamine Sulfate 250 mg STK-MED ONCE IV ; Start 02/05/17 at 11:08; Stop at 11:09; Status DC Protamine Sulfate 50 mg STK-MED ONCE IV ; Start 02/05/17 at 11:09; Stop at 11:10; Status DC Protamine Sulfate 50 mg STK-MED ONCE IV ; Start 02/05/17 at 11:09; Stop at 11:10; Status DC Protamine Sulfate 50 mg STK-MED ONCE IV ; Start 02/05/17 at 11:09; Stop at 11:10; Status DC Isoflurane (Isoflurane) 90 ml STK-MED ONCE IH ; Start 02/05/17 at 11:34; Stop at 11:35; Status DC Heparin Sodium (Porcine) 10,000 unit STK-MED ONCE .ROUTE ; Start 02/05/17 at 12: 59; Stop 02/05/17 at 13:00; Status DC Lidocaine HCl (Xylocaine-Mpf 1% Vial) 5 ml STK-MED ONCE .ROUTE ; Start 02/05/17 at 12:59; Stop 02/05/17 at 13:00; Status DC Aminocaproic Acid (Amicar) 5,000 mg STK-MED ONCE IV ; Start 02/05/17 at 12:59; Stop 02/05/17 at 13:00; Status DC Magnesium Sulfate 5 gm STK-MED ONCE .ROUTE ; Start 02/05/17 at 12:59; Stop 02/05 at 13:00; Status DC Calcium Chloride 1000 mg 1,000 mg STK-MED ONCE IV ; Start 02/05/17 at 12:59; Stop 02/05/17 at 13:00; Status DC Albumin Human (Albuminar) 200 ml @ As Directed STK-MED ONCE IV ; Start at 12:59; Stop 02/05/17 at 13:00; Status DC Heparin Sodium (Porcine) 21220 unit 30,000 unit STK-MED ONCE .ROUTE ; Start at 12:59; Stop 02/05/17 at 13:00; Status DC Lactated Ringer's 1,000 ml @ 30 mls/hr Q24H IV Last administered on 02/05/17 17:27; Start 02/05/17 at 13:15 Albumin Human 250 ml @ 60 mls/hr PRN Q4HRS PRN IV SEE I/O RECORD Last administered on 02/05/17 17:20; Start 02/05/17 at 13:15 Vancomycin HCl 1.5 gm/Sodium Chloride 500 ml @ 250 mls/hr Q12H IV ; Start 02/05 at 13:30; Stop 02/06/17 at 15:29; Status UNV Insulin Human Regular/Sodium Chloride (Novolin R Vial/ Iv Normal Saline 150ml) 151.5 ml @ 0 mls/hr CONT PRN PRN IV SEE I/O RECORD; Start 02/05/17 at 13:15 Dextrose 25 gm 25 gm PRN Q15MIN PRN IV LOW BLOOD SUGAR; Start 02/05/17 at 13:15 Nitroglycerin/ Dextrose 250 ml @ 0 mls/hr CONT PRN PRN IV SEE I/O RECORD; Start 02/05/17 at 13:15 Amiodarone HCl 900 mg/Dextrose 518 ml @ 33.33 mls/ hr CONT PRN PRN IV RUNS OF VT; Start 02/05/17 at 13:15 Amiodarone HCl 150 mg/Dextrose 103 ml @ 200 mls/hr 1X PRN PRN IV VT; Start at 13:15 Magnesium Sulfate/ Dextrose (Magnesium Sulfate PREMIX 1GM) 100 ml @ 100 mls/hr PRN DAILY PRN IV FOR MAG < 2.2; Start 02/05/17 at 13:15 Famotidine (Pepcid) 20 mg Q48H IVP Last administered on 02/05/17 20:37; Start 02/05/17 at 21:00 Ondansetron HCl (Zofran) 4 mg PRN Q4HRS PRN IV NAUSEA/VOMITING Last administered on 02/05/17 20:02; Start 02/05/17 at 13:15 Morphine Sulfate 2 mg PRN Q1HR PRN IV PAIN Last administered on 02/06/17 06:13 ; Start 02/05/17 at 13:15 Acetaminophen (Tylenol) 650 mg PRN Q4HRS PRN PO MILD PAIN / TEMP; Start at 13:15 Acetaminophen (Tylenol) 650 mg PRN Q4HRS PRN MA MILD PAIN / TEMP; Start at 13:15 Meperidine HCl 12.5 mg 12.5 mg PRN Q15MIN PRN IV SHIVERING; Start 02/05/17 at 13:15; Stop 02/06/17 at 23:59 Propofol (Diprivan) 100 ml @ 0 mls/hr CONT PRN PRN IV POSTOP SEDATION UNTIL EXTUBATE Last administered on 02/05/17 17:23; Start 02/05/17 at 13:15; Stop at 22:13; Status DC Senna/Docusate Sodium (Senna Plus) 1 tab BID PO ; Start 02/05/17 at 21:00 Bisacodyl (Dulcolax Supp) 10 mg PRN DAILY PRN MA NO BOWEL MOVEMENT; Start 02/05 at 13:15 Chlorhexidine Gluconate (Peridex) 15 ml BID MM Last administered on 02/05/17 20:37; Start 02/05/17 at 21:00; Stop 02/05/17 at 22:13; Status DC Aspirin (Ecotrin) 325 mg DAILYWBKFT PO Last administered on 02/06/17 08:14; Start 02/06/17 at 08:00 Aspirin (Aspirin) 300 mg PRN DAILY PRN MA IF UNABLE TO TAKE PO; Start 02/05/17 at 13:15 Albuterol Sulfate (Ventolin Neb Soln) 2.5 mg PRN Q4HRS PRN NEB SHORTNESS OF BREATH Last administered on 02/06/17 00:15; Start 02/05/17 at 13:15 Metoprolol Tartrate 25 mg 25 mg BID PO ; Start 02/06/17 at 09:00 Clevidipine (Cleviprex) 100 ml @ 0 mls/hr CONT PRN IV PER PROTOCOL Last administered on 02/05/17 17:25; Start 02/05/17 at 13:15 Oxycodone/ Acetaminophen (Percocet 5/325) 1 tab PRN Q4HRS PRN PO MILD PAIN; Start 02/05/17 at 13:15 Oxycodone/ Acetaminophen (Percocet 5/325) 2 tab PRN Q4HRS PRN PO MODERATE PAIN , SEVERE PAIN Last administered on 02/06/17 09:32; Start 02/05/17 at 13:15 Vecuronium [place] 10 mg 10 mg STK-MED ONCE IV ; Start 02/05/17 at 13:32; Stop 02/05/17 at 13:33; Status DC Vancomycin HCl/ Sodium Chloride (Iv Sodium Chloride 0.9% 100ml) 100 ml @ 100 mls/hr 1X ONCE IV ; Start 02/06/17 at 16:00; Stop 02/06/17 at 16:59 Dextrose 25 gm 1X ONCE IV ; Start 02/06/17 at 07:30; Stop 02/06/17 at 07:31; Status DC Calcium Chloride 2,000 mg 1X ONCE IV ; Start 02/06/17 at 07:30; Stop 02/06/17 at 07:31; Status DC Insulin Human Regular (Novolin R Vial) 10 unit 1X ONCE IV ; Start 02/06/17 at 07:30; Stop 02/06/17 at 07:31; Status DC Vecuronium [place] 10 mg 10 mg STK-MED ONCE IV ; Start 02/05/17 at 13:30; Stop 02/06/17 at 07:51; Status DC Sodium Chloride 1,000 ml @ 1,000 mls/hr Q1H PRN IV hypotension; Start 02/06/17 at 08:26; Stop 02/06/17 at 14:25 Albumin Human (Albuminar) 200 ml @ 200 mls/hr 1X PRN PRN IV Hypotension Last administered on 02/06/17t 09:30; Start 02/06/17 at 08:30; Stop 02/06/17 at 14:29 Acetaminophen (Tylenol) 500 mg 1X PRN PRN PO MILD PAIN / TEMP; Start 02/06/17 at 08:30; Stop 02/07/17 at 08:29 Diphenhydramine HCl (Benadryl) 25 mg 1X PRN PRN IV ITCHING; Start 02/06/17 at 08:30; Stop 02/07/17 at 08:29 Diphenhydramine HCl (Benadryl) 25 mg 1X PRN PRN IV ITCHING; Start 02/06/17 at 08:30; Stop 02/07/17 at 08:29 Info (PHARMACY MONITORING -- do not chart) 1 each PRN DAILY PRN MC SEE COMMENTS ; Start 02/06/17 at 08:30 Active Scripts Active Clopidogrel (Clopidogrel Bisulfate) 75 Mg Tablet 1 Tab PO DAILY Isosorbide Mononitrate Er (Isosorbide Mononitrate) 30 Mg Tab.er.24h 30 Mg PO DAILY Flomax (Tamsulosin Hcl) 0.4 Mg Cap.er.24h 0.4 Mg PO QHS Reported Hydrocodone-Apap 5-325 (Hydrocodone Bit/Acetaminophen) 1 Each Tablet 1 Tab PO PRN Q6HRS PRN Furosemide 80 Mg Tablet 1 Tab PO BID Nephro-Chilo Tablet (Folic Acid/Vitamin B Comp W-C) 0.8 Mg Tablet 1 Tab PO DAILY Paroxetine Hcl 20 Mg Tablet 40 Mg PO DAILY Tums (Calcium Carbonate) 200 Mg Tab.chew 800 Mg PO TIDAC Omeprazole Magnesium 20 Mg Capsule.dr 20 Mg PO DAILY Clonidine Hcl 0.3 Mg Tablet 1 Tab PO DAILY Hydralazine Hcl 100 Mg Tablet 100 Mg PO TID LAST DOSE: 02/24/16 AFTERNOON NEXT DOSE: 02/24/16 BEDTIME Amlodipine Besylate 10 Mg Tablet 10 Mg PO BID LAST DOSE: 02/24/16 AM NEXT DOSE: 02/25/16 AM Xanax (Alprazolam) 0.5 Mg Tablet 0.5 Mg PO Q6HRS PRN LAST DOSE: 02/23/16 BEDTIME NEXT DOSE: 02/24/16 BEDTIME Losartan Potassium 100 Mg Tablet 100 Mg PO HS LAST DOSE: 02/23/16 BEDTIME NEXT DOSE: 02/24/16 BEDTIME Metoprolol Tartrate 100 Mg Tablet 100 Mg PO BID LAST DOSE: 02/24/16 AM NEXT DOSE: 02/24/16 BEDTIME Lillian Chewable (Aspirin) 81 Mg Tab.chew 324 Mg PO DAILY LAST DOSE: 02/24/16 AM NEXT DOSE: 02/25/16 AM Vitals/I & O Vital Sign - Last 24 Hours 02/05/17 02/05/17 02/05/17 02/05/17 13:20 13:25 13:40 13:45 Temp 97.0 97.0 Pulse 80 80 80 Resp 16 B/P 147/68 147/68 120/80 Pulse Ox 98 O2 Delivery Ventilator Ventilator 02/05/17 02/05/17 02/05/17 02/05/17 13:45 14:00 14:00 14:15 Temp 97.2 96.0 97.2 96.0 Pulse 80 79 79 80 Resp 16 16 B/P 121/54 122/58 125/53 O2 Delivery Ventilator Ventilator 02/05/17 02/05/17 02/05/17 02/05/17 14:15 14:22 14:30 14:30 Temp 97.0 97.3 97.0 97.3 Pulse 60 60 60 Resp 16 16 B/P 119/44 O2 Delivery Ventilator Mechanical Ventilator Ventilator O2 Flow Rate 2.0 02/05/17 02/05/17 02/05/17 02/05/17 15:00 15:00 16:00 16:00 Temp 98.0 98.0 Pulse 60 60 60 Resp 16 B/P 119/66 121/52 120/55 Pulse Ox 98 O2 Delivery Ventilator Ventilator 02/05/17 02/05/17 02/05/17 02/05/17 16:00 16:00 16:30 16:50 Temp 99.0 99.0 Pulse 60 Resp 16 B/P 127/64 Pulse Ox 95 95 O2 Delivery Mechanical Ventilator Ventilator Ventilator Ventilator O2 Flow Rate 2.0 02/05/17 02/05/17 02/05/17 02/05/17 17:00 17:00 17:02 17:14 Temp 99.0 99.0 Pulse 60 58 Resp 16 1 16 B/P 122/50 130/70 Pulse Ox 95 95 O2 Delivery Ventilator Ventilator 02/05/17 02/05/17 02/05/17 02/05/17 17:15 17:25 18:00 18:00 Pulse 65 60 Resp 16 B/P 145/72 112/62 122/50 Pulse Ox 93 O2 Delivery Ventilator Ventilator 02/05/17 02/05/17 02/05/17 02/05/17 18:04 19:00 19:00 19:01 Temp 99.1 99.1 Pulse 59 Resp 24 20 B/P 124/47 Pulse Ox 93 92 90 O2 Delivery Nasal Cannula Nasal Cannula O2 Flow Rate 5.0 5.0 02/05/17 02/05/17 02/05/17 02/05/17 19:30 20:00 20:00 20:00 Temp 99.0 99.0 Pulse 60 60 Resp 16 20 B/P 133/50 Pulse Ox 94 94 O2 Delivery Nasal Cannula Nasal Cannula Nasal Cannula O2 Flow Rate 5.0 5.0 5.0 02/05/17 02/05/17 02/05/17 02/05/17 20:10 20:13 20:35 20:57 Pulse 62 Resp 20 24 B/P Pulse Ox 94 97 93 O2 Delivery Nasal Cannula Nasal Cannula Nasal Cannula O2 Flow Rate 5.0 5.0 5.0 02/05/17 02/05/17 02/05/17 02/05/17 21:00 22:00 22:00 22:30 Temp 98.7 98.7 Pulse 62 60 Resp 20 28 22 18 B/P 120/51 130/50 Pulse Ox 94 92 92 90 O2 Delivery Nasal Cannula Nasal Cannula Nasal Cannula Nasal Cannula O2 Flow Rate 5.0 5.0 5.0 5.0 02/05/17 02/05/17 02/05/17 02/05/17 23:00 23:59 23:59 23:59 Temp 97.7 97.7 Pulse 59 57 57 Resp 20 24 B/P 128/47 123/41 123/41 Pulse Ox 95 96 O2 Delivery Nasal Cannula Nasal Cannula Nasal Cannula O2 Flow Rate 5.0 5.0 5.0 02/06/17 02/06/17 02/06/17 02/06/17 00:06 00:15 01:00 02:00 Pulse 57 53 Resp 24 20 24 B/P 118/46 108/37 Pulse Ox 94 93 96 92 O2 Delivery Nasal Cannula Nasal Cannula Nasal Cannula Nasal Cannula O2 Flow Rate 5.0 5.0 5.0 5.0 02/06/17 02/06/17 02/06/17 02/06/17 02:17 03:00 04:00 04:00 Pulse 52 53 Resp 24 20 B/P 121/47 118/47 Pulse Ox 94 92 O2 Delivery Nasal Cannula Nasal Cannula Nasal Cannula O2 Flow Rate 5.0 5.0 5.0 02/06/17 02/06/17 02/06/17 02/06/17 04:00 04:16 05:00 05:05 Temp 97.6 97.6 Pulse 53 52 Resp 22 24 24 B/P 118/47 118/48 Pulse Ox 92 92 88 94 O2 Delivery Nasal Cannula Nasal Cannula Nasal Cannula Nasal Cannula O2 Flow Rate 5.0 5.0 5.0 6.0 02/06/17 02/06/17 02/06/17 02/06/17 06:00 06:13 06:40 07:00 Pulse 52 53 Resp 30 30 22 18 B/P 128/64 104/32 Pulse Ox 95 98 91 93 O2 Delivery Nasal Cannula Nasal Cannula Venturi Mask Nasal Cannula O2 Flow Rate 6.0 12.0 6.0 02/06/17 02/06/17 02/06/17 02/06/17 08:00 08:00 09:00 09:32 Temp 97.6 97.6 Pulse 58 80 Resp 18 18 20 B/P 120/43 130/53 Pulse Ox 94 93 95 O2 Delivery Nasal Cannula Nasal Cannula Nasal Cannula Nasal Cannula O2 Flow Rate 6.0 6.0 6.0 6.0 Intake and Output 02/05/17 02/05/17 02/06/17 15:00 23:00 07:00 Intake Total 0 ml 1118 ml 850 ml Output Total 285 ml 185 ml 180 ml Balance -285 ml 933 ml 670 ml Nutrition Consultation Dietary Evaluation: Recommendations by RD: Increase Calorie Intake Comments: Discussed typical nutrition care plan for CABG surgery Continue to encourage diet compliance to the cardiac/renal diets D/C the boost brejulio cesare-pt diet advanced, meeting nutrition needs via PO intake Expected Outcomes/Goals: meet 75% estimated nutrition needs Malnutrition Findings: Reduced Anesthesiologist Assistant Strength: N/A Weight Status: Overweight ESTEFANÍA MANZO MD Feb 06, 2017 10:20
--- NOTE | 2017-02-06 10:44 | PDOC ---
Dialysis Progress Note Dialysis Note Dialysis Note Seen on Hemodialysis, tolerating treatment Well Vitals on Hemodialysis: 110/48 103 (in Pain) afeb 16 General Appearance: Awake: Alert Oriented x 3 Neck: No JVD or JVP Chest: CTA Oliver Heart: S1 S2 Abdomen - Soft NTND Extremities - No Edema ESRD : Dialysis as below F 180 NR 3.5 Hrs 1K for 1 hr; 2K for 2.5 hrs 2.5 Ca 140 Na 40 HC03 Qb 350 + Qd 500+ Heparin gtt Uf 1 Kgs or to dry weight as tolerated may give 25-50 gms of 25% Albumin if needed to maintain Hemodynamic stability Treatment plan reviewed and discussed with global transportation manager Vitals Vital Signs Vital Signs Date Time Temp Pulse Resp B/P Pulse Ox O2 Delivery O2 Flow Rate FiO2 02/06/17 09:32 20 95 Nasal Cannula 6.0 02/06/17 09:00 80 130/53 02/06/17 08:00 97.6 97.6 Labs Last Labs Laboratory Tests Test 02/04/17 11:10 02/05/17 03:35 02/05/17 08:27 02/05/17 08:30 Heparin Anti-Xa Act, Unfractionated 0.17IU/mL (0.30-0.70) White Blood Count 5.2x10^3/uL (4.0-11.0) Red Blood Count 2.81x10^6/uL (4.30-5.70) Hemoglobin 8.6g/dL (13.0-17.5) Hematocrit 26.2% (39.0-53.0) Mean Corpuscular Volume 93fL (79-100) Mean Corpuscular Hemoglobin 31pg (25-35) Mean Corpuscular Hemoglobin Concent 33g/dL (31-37) Red Cell Distribution Width 13.9% (11.5-14.5) Platelet Count 180x10^3/uL (140-400) Neutrophils (%) (Auto) 67% (31-73) Lymphocytes (%) (Auto) 16% (24-48) Monocytes (%) (Auto) 15% (0-9) Eosinophils (%) (Auto) 2% (0-3) Basophils (%) (Auto) 1% (0-3) Neutrophils # (Auto) 3.4x10^3uL (1.8-7.7) Lymphocytes # (Auto) 0.8x10^3/uL (1.0-4.8) Monocytes # (Auto) 0.8x10^3/uL (0.0-1.1) Eosinophils # (Auto) 0.1x10^3/uL (0.0-0.7) Basophils # (Auto) 0.0x10^3/uL (0.0-0.2) Sodium Level 141mmol/L (136-145) Potassium Level 4.0mmol/L (3.5-5.1) Chloride Level 101mmol/L (98-107) Carbon Dioxide Level 32mmol/L (21-32) Anion Gap 8 (6-14) Blood Urea Nitrogen 21mg/dL (8-26) Creatinine 6.3mg/dL (0.7-1.3) Estimated GFR (Cockcroft-Gault) 9.1 Glucose Level 94mg/dL (70-99) 100mg/dL (70-99) Calcium Level 8.4mg/dL (8.5-10.1) Phosphorus Level 4.2mg/dL (2.6-4.7) Magnesium Level 1.7mg/dL (1.8-2.4) Albumin 2.8g/dL (3.4-5.0) Activated Clotting Time 95SEC (90-125) Bedside Hemoglobin (Calculated) 8.2g/dL (14-18) Bedside Hematocrit 24% (37-52) Bedside Arterial pH 7.68 (7.35-7.45) Bedside Arterial pCO2 27mmHg (35-45) Bedside Arterial pO2 308mmHg (75-100) Bedside Arterial HCO3 32mmol/L (21-28) Bedside Arterial Total CO2 33mmol/L (21-32) Arterial Bld O2 Saturation (Measur) 100% (95-99) Bedside Arterial Blood Base Excess 12mmol/L (0-3) Bedside FiO2 100.0 Bedside Sodium 136mmol/L (135-145) Bedside Potassium 3.8mmol/L (3.5-5.0) Bedside Ionized Calcium (Mac) 0.95mmol/L (1.13-1.32) Test 02/05/17 08:46 02/05/17 09:19 02/05/17 09:21 02/05/17 09:48 Bedside Hematocrit 22% (37-52) 22% (37-52) 23% (37-52) Bedside Venous pH 7.57 (7.32-7.42) 7.42 (7.32-7.42) Bedside Venous pCO2 28mmHg (41-51) 37mmHg (41-51) Bedside Venous pO2 34mmHg (20-40) 47mmHg (20-40) Bedside Venous HCO3 26mmol/L (24-28) 24mmol/L (24-28) Bedside Venous Blood Total CO2 26mmol/L (21-32) 25mmol/L (21-32) Bedside Venous Blood O2 Saturation 76% 83% Bedside Venous Blood Base Excess 3mmol/L (0-3) -1mmol/L (0-3) POC Venous Hemoglobin (Calc) 7.5g/dL (14-18) 7.8g/dL (14-18) Bedside FiO2 100 100.0 100 Bedside Sodium 137mmol/L (135-145) 136mmol/L (135-145) 134mmol/L (135-145) Bedside Potassium 3.5mmol/L (3.5-5.0) 3.7mmol/L (3.5-5.0) 3.8mmol/L (3.5-5.0) Glucose Level 94mg/dL (70-99) 95mg/dL (70-99) 101mg/dL (70-99) Bedside Ionized Calcium (Mac) 0.97mmol/L (1.13-1.32) 0.96mmol/L (1.13-1.32) 0.88mmol/L (1.13-1.32) Activated Clotting Time 608SEC (90-125) Bedside Hemoglobin (Calculated) 7.5g/dL (14-18) Bedside Arterial pH 7.56 (7.35-7.45) Bedside Arterial pCO2 34mmHg (35-45) Bedside Arterial pO2 357mmHg (75-100) Bedside Arterial HCO3 30mmol/L (21-28) Bedside Arterial Total CO2 31mmol/L (21-32) Arterial Bld O2 Saturation (Measur) 100% (95-99) Bedside Arterial Blood Base Excess 8mmol/L (0-3) Test 02/05/17 10:17 02/05/17 10:45 02/05/17 10:47 02/05/17 11:14 Bedside Hemoglobin (Calculated) 8.5g/dL (14-18) 7.8g/dL (14-18) Bedside Hematocrit 25% (37-52) 23% (37-52) Bedside Arterial pH 7.41 (7.35-7.45) 7.46 (7.35-7.45) Bedside Arterial pCO2 47mmHg (35-45) 44mmHg (35-45) Bedside Arterial pO2 501mmHg (75-100) 377mmHg (75-100) Bedside Arterial HCO3 30mmol/L (21-28) 31mmol/L (21-28) Bedside Arterial Total CO2 31mmol/L (21-32) 32mmol/L (21-32) Arterial Bld O2 Saturation (Measur) 100% (95-99) 100% (95-99) Bedside Arterial Blood Base Excess 5mmol/L (0-3) 7mmol/L (0-3) Bedside FiO2 100.0 100.0 Bedside Sodium 136mmol/L (135-145) 136mmol/L (135-145) Bedside Potassium 4.6mmol/L (3.5-5.0) 4.7mmol/L (3.5-5.0) Glucose Level 97mg/dL (70-99) 103mg/dL (70-99) Bedside Ionized Calcium (Mac) 0.93mmol/L (1.13-1.32) 0.92mmol/L (1.13-1.32) Activated Clotting Time 500SEC (90-125) 570SEC (90-125) Test 02/05/17 11:17 02/05/17 11:47 02/05/17 11:49 02/05/17 12:12 Bedside Hemoglobin (Calculated) 8.5g/dL (14-18) 7.8g/dL (14-18) Bedside Hematocrit 25% (37-52) 23% (37-52) Bedside Arterial pH 7.46 (7.35-7.45) 7.42 (7.35-7.45) Bedside Arterial pCO2 40mmHg (35-45) 43mmHg (35-45) Bedside Arterial pO2 327mmHg (75-100) 318mmHg (75-100) Bedside Arterial HCO3 28mmol/L (21-28) 28mmol/L (21-28) Bedside Arterial Total CO2 30mmol/L (21-32) 30mmol/L (21-32) Arterial Bld O2 Saturation (Measur) 100% (95-99) 100% (95-99) Bedside Arterial Blood Base Excess 5mmol/L (0-3) 4mmol/L (0-3) Bedside FiO2 80.0 80.0 Bedside Sodium 136mmol/L (135-145) 135mmol/L (135-145) Bedside Potassium 4.9mmol/L (3.5-5.0) 4.9mmol/L (3.5-5.0) Glucose Level 108mg/dL (70-99) 107mg/dL (70-99) Bedside Ionized Calcium (Mac) 0.93mmol/L (1.13-1.32) 0.93mmol/L (1.13-1.32) Activated Clotting Time 446SEC (90-125) 105SEC (90-125) Test 02/05/17 12:14 02/05/17 12:16 02/05/17 13:15 02/05/17 14:15 Bedside Hemoglobin (Calculated) 7.5g/dL (14-18) Bedside Hematocrit 22% (37-52) Bedside Arterial pH 7.47 (7.35-7.45) Bedside Arterial pCO2 38mmHg (35-45) Bedside Arterial pO2 286mmHg (75-100) Bedside Arterial HCO3 27mmol/L (21-28) Bedside Arterial Total CO2 29mmol/L (21-32) Arterial Bld O2 Saturation (Measur) 100% (95-99) Bedside Arterial Blood Base Excess 4mmol/L (0-3) Bedside FiO2 100.0 Bedside Sodium 135mmol/L (135-145) Bedside Potassium 4.6mmol/L (3.5-5.0) Glucose Level 101mg/dL (70-99) Bedside Ionized Calcium (Mac) 1.45mmol/L (1.13-1.32) White Blood Count 4.9x10^3/uL (4.0-11.0) Hemoglobin 7.3g/dL (13.0-17.5) Hematocrit 21.9% (39.0-53.0) Platelet Count 90x10^3/uL (140-400) Prothrombin Time 17.8SEC (11.7-14.0) Prothromb Time International Ratio 1.6 (0.8-1.1) Activated Partial Thromboplast Time 42SEC (24-38) Fibrinogen 392mg/dL (200-440) O2 Saturation 94% (92-99) 88% (92-99) Arterial Blood pH 7.44 (7.35-7.45) 7.39 (7.35-7.45) Arterial Blood pCO2 at Patient Temp 32mmHg (35-46) 34mmHg (35-46) Arterial Blood pO2 at Patient Temp 69mmHg (65-108) 57mmHg (65-108) Arterial Blood HCO3 21mmol/L (21-28) 20mmol/L (21-28) Arterial Blood Base Excess -3mmol/L (-3-3) -4mmol/L (-3-3) Oxyhemoglobin 93.0% Methemoglobin 0.2% (0.0-1.9) Carbon Monoxide, Quantitative 0.3% (0.0-1.9) FiO2 80 40 Test 02/05/17 14:20 02/05/17 17:00 02/05/17 17:30 02/05/17 19:02 White Blood Count 6.2x10^3/uL (4.0-11.0) 9.8x10^3/uL (4.0-11.0) Red Blood Count 2.84x10^6/uL (4.30-5.70) 2.71x10^6/uL (4.30-5.70) Hemoglobin 8.7g/dL (13.0-17.5) 8.1g/dL (13.0-17.5) Hematocrit 26.0% (39.0-53.0) 25.0% (39.0-53.0) Mean Corpuscular Volume 92fL (79-100) 92fL (79-100) Mean Corpuscular Hemoglobin 31pg (25-35) 30pg (25-35) Mean Corpuscular Hemoglobin Concent 33g/dL (31-37) 33g/dL (31-37) Red Cell Distribution Width 14.8% (11.5-14.5) 15.0% (11.5-14.5) Platelet Count 135x10^3/uL (140-400) 141x10^3/uL (140-400) Prothrombin Time 14.9SEC (11.7-14.0) Prothromb Time International Ratio 1.2 (0.8-1.1) Sodium Level 137mmol/L (136-145) Potassium Level 4.8mmol/L (3.5-5.1) 5.5mmol/L (3.5-5.1) Chloride Level 100mmol/L (98-107) Carbon Dioxide Level 22mmol/L (21-32) Anion Gap 15 (6-14) Blood Urea Nitrogen 22mg/dL (8-26) Creatinine 6.8mg/dL (0.7-1.3) Estimated GFR (Cockcroft-Gault) 8.3 Glucose Level 136mg/dL (70-99) Glucose (Fingerstick) 127mg/dL (70-99) 104mg/dL (70-99) 132mg/dL (70-99) Calcium Level 9.8mg/dL (8.5-10.1) Magnesium Level 2.1mg/dL (1.8-2.4) Test 02/05/17 20:13 02/05/17 21:58 02/06/17 00:11 02/06/17 02:11 Glucose (Fingerstick) 122mg/dL (70-99) 129mg/dL (70-99) 138mg/dL (70-99) 130mg/dL (70-99) Test 02/06/17 04:22 02/06/17 05:35 02/06/17 05:45 02/06/17 05:46 Glucose (Fingerstick) 132mg/dL (70-99) 127mg/dL (70-99) Potassium Level 6.8mmol/L (3.5-5.1) 7.0mmol/L (3.5-5.1) White Blood Count 14.5x10^3/uL (4.0-11.0) Red Blood Count 2.71x10^6/uL (4.30-5.70) Hemoglobin 8.1g/dL (13.0-17.5) Hematocrit 25.3% (39.0-53.0) Mean Corpuscular Volume 94fL (79-100) Mean Corpuscular Hemoglobin 30pg (25-35) Mean Corpuscular Hemoglobin Concent 32g/dL (31-37) Red Cell Distribution Width 15.0% (11.5-14.5) Platelet Count 157x10^3/uL (140-400) Sodium Level 135mmol/L (136-145) Chloride Level 98mmol/L (98-107) Carbon Dioxide Level 17mmol/L (21-32) Anion Gap 20 (6-14) Blood Urea Nitrogen 30mg/dL (8-26) Creatinine 8.3mg/dL (0.7-1.3) Estimated GFR (Cockcroft-Gault) 6.6 Glucose Level 142mg/dL (70-99) Calcium Level 9.2mg/dL (8.5-10.1) Phosphorus Level 6.5mg/dL (2.6-4.7) Magnesium Level 2.3mg/dL (1.8-2.4) Creatine Kinase 669U/L (39-308) Albumin 3.5g/dL (3.4-5.0) Test 02/06/17 08:48 Glucose (Fingerstick) 150mg/dL (70-99) Laboratory Tests Test 02/05/17 10:45 02/05/17 10:47 02/05/17 11:14 02/05/17 11:17 Activated Clotting Time 500SEC (90-125) 570SEC (90-125) Bedside Hemoglobin (Calculated) 7.8g/dL (14-18) 8.5g/dL (14-18) Bedside Hematocrit 23% (37-52) 25% (37-52) Bedside Arterial pH 7.46 (7.35-7.45) 7.46 (7.35-7.45) Bedside Arterial pCO2 44mmHg (35-45) 40mmHg (35-45) Bedside Arterial pO2 377mmHg (75-100) 327mmHg (75-100) Bedside Arterial HCO3 31mmol/L (21-28) 28mmol/L (21-28) Bedside Arterial Total CO2 32mmol/L (21-32) 30mmol/L (21-32) Arterial Bld O2 Saturation (Measur) 100% (95-99) 100% (95-99) Bedside Arterial Blood Base Excess 7mmol/L (0-3) 5mmol/L (0-3) Bedside FiO2 100.0 80.0 Bedside Sodium 136mmol/L (135-145) 136mmol/L (135-145) Bedside Potassium 4.7mmol/L (3.5-5.0) 4.9mmol/L (3.5-5.0) Glucose Level 103mg/dL (70-99) 108mg/dL (70-99) Bedside Ionized Calcium (Mac) 0.92mmol/L (1.13-1.32) 0.93mmol/L (1.13-1.32) Test 02/05/17 11:47 02/05/17 11:49 02/05/17 12:12 02/05/17 12:14 Activated Clotting Time 446SEC (90-125) 105SEC (90-125) Bedside Hemoglobin (Calculated) 7.8g/dL (14-18) 7.5g/dL (14-18) Bedside Hematocrit 23% (37-52) 22% (37-52) Bedside Arterial pH 7.42 (7.35-7.45) 7.47 (7.35-7.45) Bedside Arterial pCO2 43mmHg (35-45) 38mmHg (35-45) Bedside Arterial pO2 318mmHg (75-100) 286mmHg (75-100) Bedside Arterial HCO3 28mmol/L (21-28) 27mmol/L (21-28) Bedside Arterial Total CO2 30mmol/L (21-32) 29mmol/L (21-32) Arterial Bld O2 Saturation (Measur) 100% (95-99) 100% (95-99) Bedside Arterial Blood Base Excess 4mmol/L (0-3) 4mmol/L (0-3) Bedside FiO2 80.0 100.0 Bedside Sodium 135mmol/L (135-145) 135mmol/L (135-145) Bedside Potassium 4.9mmol/L (3.5-5.0) 4.6mmol/L (3.5-5.0) Glucose Level 107mg/dL (70-99) 101mg/dL (70-99) Bedside Ionized Calcium (Mac) 0.93mmol/L (1.13-1.32) 1.45mmol/L (1.13-1.32) Test 02/05/17 12:16 02/05/17 13:15 02/05/17 14:15 02/05/17 14:20 White Blood Count 4.9x10^3/uL (4.0-11.0) 6.2x10^3/uL (4.0-11.0) Hemoglobin 7.3g/dL (13.0-17.5) 8.7g/dL (13.0-17.5) Hematocrit 21.9% (39.0-53.0) 26.0% (39.0-53.0) Platelet Count 90x10^3/uL (140-400) 135x10^3/uL (140-400) Prothrombin Time 17.8SEC (11.7-14.0) 14.9SEC (11.7-14.0) Prothromb Time International Ratio 1.6 (0.8-1.1) 1.2 (0.8-1.1) Activated Partial Thromboplast Time 42SEC (24-38) Fibrinogen 392mg/dL (200-440) O2 Saturation 94% (92-99) 88% (92-99) Arterial Blood pH 7.44 (7.35-7.45) 7.39 (7.35-7.45) Arterial Blood pCO2 at Patient Temp 32mmHg (35-46) 34mmHg (35-46) Arterial Blood pO2 at Patient Temp 69mmHg (65-108) 57mmHg (65-108) Arterial Blood HCO3 21mmol/L (21-28) 20mmol/L (21-28) Arterial Blood Base Excess -3mmol/L (-3-3) -4mmol/L (-3-3) Oxyhemoglobin 93.0% Methemoglobin 0.2% (0.0-1.9) Carbon Monoxide, Quantitative 0.3% (0.0-1.9) FiO2 80 40 Red Blood Count 2.84x10^6/uL (4.30-5.70) Mean Corpuscular Volume 92fL (79-100) Mean Corpuscular Hemoglobin 31pg (25-35) Mean Corpuscular Hemoglobin Concent 33g/dL (31-37) Red Cell Distribution Width 14.8% (11.5-14.5) Sodium Level 137mmol/L (136-145) Potassium Level 4.8mmol/L (3.5-5.1) Chloride Level 100mmol/L (98-107) Carbon Dioxide Level 22mmol/L (21-32) Anion Gap 15 (6-14) Blood Urea Nitrogen 22mg/dL (8-26) Creatinine 6.8mg/dL (0.7-1.3) Estimated GFR (Cockcroft-Gault) 8.3 Glucose Level 136mg/dL (70-99) Glucose (Fingerstick) 127mg/dL (70-99) Calcium Level 9.8mg/dL (8.5-10.1) Magnesium Level 2.1mg/dL (1.8-2.4) Test 02/05/17 17:00 02/05/17 17:30 02/05/17 19:02 02/05/17 20:13 Glucose (Fingerstick) 104mg/dL (70-99) 132mg/dL (70-99) 122mg/dL (70-99) White Blood Count 9.8x10^3/uL (4.0-11.0) Red Blood Count 2.71x10^6/uL (4.30-5.70) Hemoglobin 8.1g/dL (13.0-17.5) Hematocrit 25.0% (39.0-53.0) Mean Corpuscular Volume 92fL (79-100) Mean Corpuscular Hemoglobin 30pg (25-35) Mean Corpuscular Hemoglobin Concent 33g/dL (31-37) Red Cell Distribution Width 15.0% (11.5-14.5) Platelet Count 141x10^3/uL (140-400) Potassium Level 5.5mmol/L (3.5-5.1) Test 02/05/17 21:58 02/06/17 00:11 02/06/17 02:11 02/06/17 04:22 Glucose (Fingerstick) 129mg/dL (70-99) 138mg/dL (70-99) 130mg/dL (70-99) 132mg/dL (70-99) Test 02/06/17 05:35 02/06/17 05:45 02/06/17 05:46 02/06/17 08:48 Potassium Level 6.8mmol/L (3.5-5.1) 7.0mmol/L (3.5-5.1) White Blood Count 14.5x10^3/uL (4.0-11.0) Red Blood Count 2.71x10^6/uL (4.30-5.70) Hemoglobin 8.1g/dL (13.0-17.5) Hematocrit 25.3% (39.0-53.0) Mean Corpuscular Volume 94fL (79-100) Mean Corpuscular Hemoglobin 30pg (25-35) Mean Corpuscular Hemoglobin Concent 32g/dL (31-37) Red Cell Distribution Width 15.0% (11.5-14.5) Platelet Count 157x10^3/uL (140-400) Sodium Level 135mmol/L (136-145) Chloride Level 98mmol/L (98-107) Carbon Dioxide Level 17mmol/L (21-32) Anion Gap 20 (6-14) Blood Urea Nitrogen 30mg/dL (8-26) Creatinine 8.3mg/dL (0.7-1.3) Estimated GFR (Cockcroft-Gault) 6.6 Glucose Level 142mg/dL (70-99) Calcium Level 9.2mg/dL (8.5-10.1) Phosphorus Level 6.5mg/dL (2.6-4.7) Magnesium Level 2.3mg/dL (1.8-2.4) Creatine Kinase 669U/L (39-308) Albumin 3.5g/dL (3.4-5.0) Glucose (Fingerstick) 127mg/dL (70-99) 150mg/dL (70-99) Assessment Assessment Problems Medical Problems: (1) Flank pain Status: Acute (2) Pancreatitis Status: Acute (3) Unstable angina pectoris Status: Acute Problems: Plan Plan of Care Problems Medical Problems: (1) Flank pain Status: Acute (2) Pancreatitis Status: Acute TING GARDUNO MD Feb 06, 2017 10:44
[2017-02-06] MEDS: CALCIUM CARBONATE 500 MG TAB.CHEW PO SCH ×3 (11:30→16:11)
[2017-02-06] MEDS: SENNOSIDES/DOCUSATE 8.6/50MG TABLET. PO SCH ×2 (12:32→21:02)
[2017-02-06] MEDS: DOCUSATE SODIUM 100 MG CAPSULE PO SCH ×2 (12:32→21:02)
[2017-02-06] MEDS: PANTOPRAZOLE 40 MG TABLET. PO SCH (12:32)
[2017-02-06] MEDS: IV RINGERS,LACTATED 1000ML 1,000 ML IV SCH (12:37)
--- NOTE | 2017-02-06 14:40 | PDOC ---
Provider Note Provider Note Pt awake, alert Rhyth irregular was a paced underlying appears sius with frequent bigeminal PAC's VSSS wound sites ok labs noted cxr reviewed Plan: will d/c Mediastinal tubes, leave wires in hold b beryl and amiodarone due to recent bradycardia ZUHAIR DÍAZ MD Feb 06, 2017 14:40
[2017-02-06] MEDS ORDERED: VANCOMYCIN 500 MG in IV NORMAL SALINE 100ML 100 ML IV ONE (16:00)
[2017-02-06] MEDS ORDERED: ALBUMIN HUMAN 5% 250 ML IV PRN (16:09)
[2017-02-06] MEDS: TAMSULOSIN 0.4 MG CAP.ER.24H. PO SCH (21:02)
[2017-02-07] VITALS (22 sets, daily range): BP systolic 89–133; BP diastolic 33–72
[2017-02-07] MEDS: MORPHINE SULFATE 2 MG/ML DISP.SYRIN. IV PRN (01:32)
[2017-02-07] MEDS: OXYCODONE/APAP 5/325 TABLET. PO PRN ×2 (05:32→20:53)
[2017-02-07 06:09] LABS: HEMATOCRIT 23.5 % (39.0-53.0); HEMOGLOBIN 7.7 g/dL (13.0-17.5); RED BLOOD COUNT 2.54 x10^6/uL (4.30-5.70); RED CELL DISTRIBUTION WIDTH 14.9 % (11.5-14.5); WHITE BLOOD COUNT 9.1 x10^3/uL (4.0-11.0)
[2017-02-07 06:25] LABS: ALBUMIN 3.4 g/dL (3.4-5.0); CALCIUM 9.1 mg/dL (8.5-10.1); GFR 9.6; PHOSPHORUS 4.9 mg/dL (2.6-4.7)
[2017-02-07] MEDS: CALCIUM CARBONATE 500 MG TAB.CHEW PO SCH ×3 (07:30→16:30)
--- NOTE | 2017-02-07 08:21 | PDOC ---
PROGRESS NOTES Chief Complaint Chief Complaint Pancreatitis ACS ASSESSMENT AND PLAN: 1. STEMI: cath on 01/[address] Kiran: multivessel dz. CABG on 02/[address] Holbrook. 2. KnownCAD 3. ESRD: on HD, 4. Anemia: blood loss on topf of CKD 5. DM: currently welll controlled. 6. Anxiety: 7. AMS : resolved 8. Sore throat: resolved 9 Pancreatitis: recurrent panc w/o EtOH hx, and s/p CCY. resolved 10. Prophylaxis: PPI History of Present Illness History of Present Illness PAin post op site 1 SELENE drain Mediastinal tubes out VS ok Off amio gtt On renal diet HAs ambulated up to chair only PLAn: OK to t/o ICU MAy inc morphine to 4 mgs IV q2 prn Add colace PT/OT HD per renal Vitals Vitals Vital Signs Date Time Temp Pulse Resp B/P Pulse Ox O2 Delivery O2 Flow Rate FiO2 02/07/17 07:00 70 22 112/54 94 Nasal Cannula 4.0 02/06/17 23:59 97.9 97.9 Physical Exam General: Alert, Oriented X3, Cooperative, No acute distress Heart: Normal S1, Normal S2, Other (irreg) Lungs: Clear, Other (sternal incison covered with gauze, dried blood in gauze) Abdomen: Normal bowel sounds, Soft, No tenderness Extremities: No cyanosis Skin: No rashes Labs LABS Laboratory Tests Test 02/06/17 08:48 02/06/17 11:07 02/06/17 12:45 02/06/17 17:22 Glucose (Fingerstick) 150mg/dL (70-99) 125mg/dL (70-99) 115mg/dL (70-99) Potassium Level 3.7mmol/L (3.5-5.1) Test 02/06/17 22:17 02/07/17 05:35 Glucose (Fingerstick) 121mg/dL (70-99) White Blood Count 9.1x10^3/uL (4.0-11.0) Red Blood Count 2.54x10^6/uL (4.30-5.70) Hemoglobin 7.7g/dL (13.0-17.5) Hematocrit 23.5% (39.0-53.0) Mean Corpuscular Volume 93fL (79-100) Mean Corpuscular Hemoglobin 30pg (25-35) Mean Corpuscular Hemoglobin Concent 33g/dL (31-37) Red Cell Distribution Width 14.9% (11.5-14.5) Platelet Count 136x10^3/uL (140-400) Sodium Level 141mmol/L (136-145) Potassium Level 4.0mmol/L (3.5-5.1) Chloride Level 97mmol/L (98-107) Carbon Dioxide Level 31mmol/L (21-32) Anion Gap 13 (6-14) Blood Urea Nitrogen 22mg/dL (8-26) Creatinine 6.0mg/dL (0.7-1.3) Estimated GFR (Cockcroft-Gault) 9.6 Glucose Level 117mg/dL (70-99) Calcium Level 9.1mg/dL (8.5-10.1) Phosphorus Level 4.9mg/dL (2.6-4.7) Magnesium Level 1.9mg/dL (1.8-2.4) Albumin 3.4g/dL (3.4-5.0) Review of Systems Review of Systems post op pain, no n/v/diarrhea, weak Assessment and Plan Assessmemt and Plan Problems Medical Problems: (1) Flank pain Status: Acute (2) Pancreatitis Status: Acute (3) Unstable angina pectoris Status: Acute Problems: Comment Review of Relevant I have reviewed the following items dionte (where applicable) has been applied. Labs Laboratory Tests Test 02/05/17 08:27 02/05/17 08:30 02/05/17 08:46 02/05/17 09:19 Activated Clotting Time 95SEC (90-125) 608SEC (90-125) Bedside Hemoglobin (Calculated) 8.2g/dL (14-18) Bedside Hematocrit 24% (37-52) 22% (37-52) Bedside Arterial pH 7.68 (7.35-7.45) Bedside Arterial pCO2 27mmHg (35-45) Bedside Arterial pO2 308mmHg (75-100) Bedside Arterial HCO3 32mmol/L (21-28) Bedside Arterial Total CO2 33mmol/L (21-32) Arterial Bld O2 Saturation (Measur) 100% (95-99) Bedside Arterial Blood Base Excess 12mmol/L (0-3) Bedside FiO2 100.0 100 Bedside Sodium 136mmol/L (135-145) 137mmol/L (135-145) Bedside Potassium 3.8mmol/L (3.5-5.0) 3.5mmol/L (3.5-5.0) Glucose Level 100mg/dL (70-99) 94mg/dL (70-99) Bedside Ionized Calcium (Mac) 0.95mmol/L (1.13-1.32) 0.97mmol/L (1.13-1.32) Bedside Venous pH 7.57 (7.32-7.42) Bedside Venous pCO2 28mmHg (41-51) Bedside Venous pO2 34mmHg (20-40) Bedside Venous HCO3 26mmol/L (24-28) Bedside Venous Blood Total CO2 26mmol/L (21-32) Bedside Venous Blood O2 Saturation 76% Bedside Venous Blood Base Excess 3mmol/L (0-3) POC Venous Hemoglobin (Calc) 7.5g/dL (14-18) Test 02/05/17 09:21 02/05/17 09:48 02/05/17 10:17 02/05/17 10:45 Bedside Hemoglobin (Calculated) 7.5g/dL (14-18) 8.5g/dL (14-18) Bedside Hematocrit 22% (37-52) 23% (37-52) 25% (37-52) Bedside Arterial pH 7.56 (7.35-7.45) 7.41 (7.35-7.45) Bedside Arterial pCO2 34mmHg (35-45) 47mmHg (35-45) Bedside Arterial pO2 357mmHg (75-100) 501mmHg (75-100) Bedside Arterial HCO3 30mmol/L (21-28) 30mmol/L (21-28) Bedside Arterial Total CO2 31mmol/L (21-32) 31mmol/L (21-32) Arterial Bld O2 Saturation (Measur) 100% (95-99) 100% (95-99) Bedside Arterial Blood Base Excess 8mmol/L (0-3) 5mmol/L (0-3) Bedside FiO2 100.0 100 100.0 Bedside Sodium 136mmol/L (135-145) 134mmol/L (135-145) 136mmol/L (135-145) Bedside Potassium 3.7mmol/L (3.5-5.0) 3.8mmol/L (3.5-5.0) 4.6mmol/L (3.5-5.0) Glucose Level 95mg/dL (70-99) 101mg/dL (70-99) 97mg/dL (70-99) Bedside Ionized Calcium (Mac) 0.96mmol/L (1.13-1.32) 0.88mmol/L (1.13-1.32) 0.93mmol/L (1.13-1.32) Bedside Venous pH 7.42 (7.32-7.42) Bedside Venous pCO2 37mmHg (41-51) Bedside Venous pO2 47mmHg (20-40) Bedside Venous HCO3 24mmol/L (24-28) Bedside Venous Blood Total CO2 25mmol/L (21-32) Bedside Venous Blood O2 Saturation 83% Bedside Venous Blood Base Excess -1mmol/L (0-3) POC Venous Hemoglobin (Calc) 7.8g/dL (14-18) Activated Clotting Time 500SEC (90-125) Test 02/05/17 10:47 02/05/17 11:14 02/05/17 11:17 02/05/17 11:47 Bedside Hemoglobin (Calculated) 7.8g/dL (14-18) 8.5g/dL (14-18) Bedside Hematocrit 23% (37-52) 25% (37-52) Bedside Arterial pH 7.46 (7.35-7.45) 7.46 (7.35-7.45) Bedside Arterial pCO2 44mmHg (35-45) 40mmHg (35-45) Bedside Arterial pO2 377mmHg (75-100) 327mmHg (75-100) Bedside Arterial HCO3 31mmol/L (21-28) 28mmol/L (21-28) Bedside Arterial Total CO2 32mmol/L (21-32) 30mmol/L (21-32) Arterial Bld O2 Saturation (Measur) 100% (95-99) 100% (95-99) Bedside Arterial Blood Base Excess 7mmol/L (0-3) 5mmol/L (0-3) Bedside FiO2 100.0 80.0 Bedside Sodium 136mmol/L (135-145) 136mmol/L (135-145) Bedside Potassium 4.7mmol/L (3.5-5.0) 4.9mmol/L (3.5-5.0) Glucose Level 103mg/dL (70-99) 108mg/dL (70-99) Bedside Ionized Calcium (Mac) 0.92mmol/L (1.13-1.32) 0.93mmol/L (1.13-1.32) Activated Clotting Time 570SEC (90-125) 446SEC (90-125) Test 02/05/17 11:49 02/05/17 12:12 02/05/17 12:14 02/05/17 12:16 Bedside Hemoglobin (Calculated) 7.8g/dL (14-18) 7.5g/dL (14-18) Bedside Hematocrit 23% (37-52) 22% (37-52) Bedside Arterial pH 7.42 (7.35-7.45) 7.47 (7.35-7.45) Bedside Arterial pCO2 43mmHg (35-45) 38mmHg (35-45) Bedside Arterial pO2 318mmHg (75-100) 286mmHg (75-100) Bedside Arterial HCO3 28mmol/L (21-28) 27mmol/L (21-28) Bedside Arterial Total CO2 30mmol/L (21-32) 29mmol/L (21-32) Arterial Bld O2 Saturation (Measur) 100% (95-99) 100% (95-99) Bedside Arterial Blood Base Excess 4mmol/L (0-3) 4mmol/L (0-3) Bedside FiO2 80.0 100.0 Bedside Sodium 135mmol/L (135-145) 135mmol/L (135-145) Bedside Potassium 4.9mmol/L (3.5-5.0) 4.6mmol/L (3.5-5.0) Glucose Level 107mg/dL (70-99) 101mg/dL (70-99) Bedside Ionized Calcium (Mac) 0.93mmol/L (1.13-1.32) 1.45mmol/L (1.13-1.32) Activated Clotting Time 105SEC (90-125) White Blood Count 4.9x10^3/uL (4.0-11.0) Hemoglobin 7.3g/dL (13.0-17.5) Hematocrit 21.9% (39.0-53.0) Platelet Count 90x10^3/uL (140-400) Prothrombin Time 17.8SEC (11.7-14.0) Prothromb Time International Ratio 1.6 (0.8-1.1) Activated Partial Thromboplast Time 42SEC (24-38) Fibrinogen 392mg/dL (200-440) Test 02/05/17 13:15 02/05/17 14:15 02/05/17 14:20 02/05/17 17:00 O2 Saturation 94% (92-99) 88% (92-99) Arterial Blood pH 7.44 (7.35-7.45) 7.39 (7.35-7.45) Arterial Blood pCO2 at Patient Temp 32mmHg (35-46) 34mmHg (35-46) Arterial Blood pO2 at Patient Temp 69mmHg (65-108) 57mmHg (65-108) Arterial Blood HCO3 21mmol/L (21-28) 20mmol/L (21-28) Arterial Blood Base Excess -3mmol/L (-3-3) -4mmol/L (-3-3) Oxyhemoglobin 93.0% Methemoglobin 0.2% (0.0-1.9) Carbon Monoxide, Quantitative 0.3% (0.0-1.9) FiO2 80 40 White Blood Count 6.2x10^3/uL (4.0-11.0) Red Blood Count 2.84x10^6/uL (4.30-5.70) Hemoglobin 8.7g/dL (13.0-17.5) Hematocrit 26.0% (39.0-53.0) Mean Corpuscular Volume 92fL (79-100) Mean Corpuscular Hemoglobin 31pg (25-35) Mean Corpuscular Hemoglobin Concent 33g/dL (31-37) Red Cell Distribution Width 14.8% (11.5-14.5) Platelet Count 135x10^3/uL (140-400) Prothrombin Time 14.9SEC (11.7-14.0) Prothromb Time International Ratio 1.2 (0.8-1.1) Sodium Level 137mmol/L (136-145) Potassium Level 4.8mmol/L (3.5-5.1) Chloride Level 100mmol/L (98-107) Carbon Dioxide Level 22mmol/L (21-32) Anion Gap 15 (6-14) Blood Urea Nitrogen 22mg/dL (8-26) Creatinine 6.8mg/dL (0.7-1.3) Estimated GFR (Cockcroft-Gault) 8.3 Glucose Level 136mg/dL (70-99) Glucose (Fingerstick) 127mg/dL (70-99) 104mg/dL (70-99) Calcium Level 9.8mg/dL (8.5-10.1) Magnesium Level 2.1mg/dL (1.8-2.4) Test 02/05/17 17:30 02/05/17 19:02 02/05/17 20:13 02/05/17 21:58 White Blood Count 9.8x10^3/uL (4.0-11.0) Red Blood Count 2.71x10^6/uL (4.30-5.70) Hemoglobin 8.1g/dL (13.0-17.5) Hematocrit 25.0% (39.0-53.0) Mean Corpuscular Volume 92fL (79-100) Mean Corpuscular Hemoglobin 30pg (25-35) Mean Corpuscular Hemoglobin Concent 33g/dL (31-37) Red Cell Distribution Width 15.0% (11.5-14.5) Platelet Count 141x10^3/uL (140-400) Potassium Level 5.5mmol/L (3.5-5.1) Glucose (Fingerstick) 132mg/dL (70-99) 122mg/dL (70-99) 129mg/dL (70-99) Test 02/06/17 00:11 02/06/17 02:11 02/06/17 04:22 02/06/17 05:35 Glucose (Fingerstick) 138mg/dL (70-99) 130mg/dL (70-99) 132mg/dL (70-99) Potassium Level 6.8mmol/L (3.5-5.1) Test 02/06/17 05:45 02/06/17 05:46 02/06/17 08:48 02/06/17 11:07 White Blood Count 14.5x10^3/uL (4.0-11.0) Red Blood Count 2.71x10^6/uL (4.30-5.70) Hemoglobin 8.1g/dL (13.0-17.5) Hematocrit 25.3% (39.0-53.0) Mean Corpuscular Volume 94fL (79-100) Mean Corpuscular Hemoglobin 30pg (25-35) Mean Corpuscular Hemoglobin Concent 32g/dL (31-37) Red Cell Distribution Width 15.0% (11.5-14.5) Platelet Count 157x10^3/uL (140-400) Sodium Level 135mmol/L (136-145) Potassium Level 7.0mmol/L (3.5-5.1) Chloride Level 98mmol/L (98-107) Carbon Dioxide Level 17mmol/L (21-32) Anion Gap 20 (6-14) Blood Urea Nitrogen 30mg/dL (8-26) Creatinine 8.3mg/dL (0.7-1.3) Estimated GFR (Cockcroft-Gault) 6.6 Glucose Level 142mg/dL (70-99) Calcium Level 9.2mg/dL (8.5-10.1) Phosphorus Level 6.5mg/dL (2.6-4.7) Magnesium Level 2.3mg/dL (1.8-2.4) Creatine Kinase 669U/L (39-308) Albumin 3.5g/dL (3.4-5.0) Glucose (Fingerstick) 127mg/dL (70-99) 150mg/dL (70-99) 125mg/dL (70-99) Test 02/06/17 12:45 02/06/17 17:22 02/06/17 22:17 02/07/17 05:35 Potassium Level 3.7mmol/L (3.5-5.1) 4.0mmol/L (3.5-5.1) Glucose (Fingerstick) 115mg/dL (70-99) 121mg/dL (70-99) White Blood Count 9.1x10^3/uL (4.0-11.0) Red Blood Count 2.54x10^6/uL (4.30-5.70) Hemoglobin 7.7g/dL (13.0-17.5) Hematocrit 23.5% (39.0-53.0) Mean Corpuscular Volume 93fL (79-100) Mean Corpuscular Hemoglobin 30pg (25-35) Mean Corpuscular Hemoglobin Concent 33g/dL (31-37) Red Cell Distribution Width 14.9% (11.5-14.5) Platelet Count 136x10^3/uL (140-400) Sodium Level 141mmol/L (136-145) Chloride Level 97mmol/L (98-107) Carbon Dioxide Level 31mmol/L (21-32) Anion Gap 13 (6-14) Blood Urea Nitrogen 22mg/dL (8-26) Creatinine 6.0mg/dL (0.7-1.3) Estimated GFR (Cockcroft-Gault) 9.6 Glucose Level 117mg/dL (70-99) Calcium Level 9.1mg/dL (8.5-10.1) Phosphorus Level 4.9mg/dL (2.6-4.7) Magnesium Level 1.9mg/dL (1.8-2.4) Albumin 3.4g/dL (3.4-5.0) Laboratory Tests Test 02/06/17 08:48 02/06/17 11:07 02/06/17 12:45 02/06/17 17:22 Glucose (Fingerstick) 150mg/dL (70-99) 125mg/dL (70-99) 115mg/dL (70-99) Potassium Level 3.7mmol/L (3.5-5.1) Test 02/06/17 22:17 02/07/17 05:35 Glucose (Fingerstick) 121mg/dL (70-99) White Blood Count 9.1x10^3/uL (4.0-11.0) Red Blood Count 2.54x10^6/uL (4.30-5.70) Hemoglobin 7.7g/dL (13.0-17.5) Hematocrit 23.5% (39.0-53.0) Mean Corpuscular Volume 93fL (79-100) Mean Corpuscular Hemoglobin 30pg (25-35) Mean Corpuscular Hemoglobin Concent 33g/dL (31-37) Red Cell Distribution Width 14.9% (11.5-14.5) Platelet Count 136x10^3/uL (140-400) Sodium Level 141mmol/L (136-145) Potassium Level 4.0mmol/L (3.5-5.1) Chloride Level 97mmol/L (98-107) Carbon Dioxide Level 31mmol/L (21-32) Anion Gap 13 (6-14) Blood Urea Nitrogen 22mg/dL (8-26) Creatinine 6.0mg/dL (0.7-1.3) Estimated GFR (Cockcroft-Gault) 9.6 Glucose Level 117mg/dL (70-99) Calcium Level 9.1mg/dL (8.5-10.1) Phosphorus Level 4.9mg/dL (2.6-4.7) Magnesium Level 1.9mg/dL (1.8-2.4) Albumin 3.4g/dL (3.4-5.0) Microbiology 02/03/17 Throat Culture - Final, Complete 02/03/17 - Final, Complete Medications Current Medications Hydromorphone HCl (Dilaudid) 1 mg 1X ONCE IV Last administered on 01/28/17 23 :57; Start 01/28/17 at 23:30; Stop 01/28/17 at 23:31; Status DC Ondansetron HCl 4 mg 4 mg 1X ONCE IV Last administered on 01/28/17 23:57; Start 01/28/17 at 23:30; Stop 01/28/17 at 23:31; Status DC Sodium Chloride (Iv Sodium Chloride 0.9% 500ml Bag) 500 ml @ 0 mls/hr 1X ONCE IV Last administered on 01/28/17 23:39; Start 01/28/17 at 23:30; Stop at 23:31; Status DC Diphenhydramine HCl (Benadryl) 50 mg 1X ONCE IVP Last administered on 00:29; Start 01/29/17 at 00:30; Stop 01/29/17 at 00:31; Status DC Diphenhydramine HCl (Benadryl) 50 mg STK-MED ONCE .ROUTE ; Start 01/29/17 at 00: 26; Stop 01/29/17 at 00:27; Status DC Morphine Sulfate 4 mg 1X ONCE IV Last administered on 01/29/17 03:55; Start 01/29/17 at 02:15; Stop 01/29/17 at 02:16; Status DC Ondansetron HCl (Zofran) 4 mg PRN Q8HRS PRN IV NAUSEA/VOMITING; Start 01/29/17 at 03:00; Stop 01/30/17 at 02:59; Status DC Morphine Sulfate 4 mg 4 mg PRN Q2HR PRN IV PAIN Last administered on 01/29/17 09:59; Start 01/29/17 at 03:00; Stop 01/29/17 at 11:47; Status DC Sodium Chloride (Iv Sodium Chloride 0.9% 1000ml Bag) 1,000 ml @ 50 mls/hr Q20H IV Last administered on 01/30/17 07:28; Start 01/29/17 at 02:12; Stop at 02:11; Status DC Alprazolam (Xanax) 0.5 mg PRN Q6HRS PRN PO ANXIETY / AGITATION Last administered on 02/03/17 07:45; Start 01/29/17 at 11:30; Stop 02/03/17 at 12:13 ; Status DC Amlodipine Besylate (Norvasc) 10 mg BID PO Last administered on 02/04/17 20:55 ; Start 01/29/17 at 12:00; Stop 02/06/17 at 17:20; Status DC Aspirin (Children'S Aspirin) 324 mg DAILY PO ; Start 01/29/17 at 12:00; Stop at 18:32; Status DC Calcium Carbonate/ Glycine (Tums) 800 mg TIDAC PO Last administered on 16:11; Start 01/29/17 at 11:30 Clonidine HCl (Catapres) 0.3 mg DAILY PO Last administered on 02/04/17 14:59; Start 01/30/17 at 09:00; Stop 02/06/17 at 08:54; Status DC Clopidogrel Bisulfate (Plavix) 75 mg DAILY PO ; Start 01/29/17 at 12:00; Stop at 09:45; Status DC Vitamin B Complex/ Vitamin C (Nephro-Chilo) 1 tab DAILY PO Last administered on 02/06/17 08:13; Start 01/29/17 at 12:00 Furosemide (Lasix) 80 mg [id number] PO Last administered on 02/04/17 15:11; Start 01/29/17 at 14:00; Stop 02/06/17 at 08:54; Status DC Acetaminophen/ Hydrocodone Bitart (Lortab 5/325) 1 tab PRN Q6HRS PRN PO PAIN; Start 01/29/17 at 11:30; Stop 01/29/17 at 18:58; Status DC Isosorbide Mononitrate (Imdur) 30 mg DAILY PO Last administered on 02/04/17 15 :01; Start 01/29/17 at 12:00; Stop 02/06/17 at 08:54; Status DC Paroxetine HCl (Paxil) 40 mg DAILY PO Last administered on 02/06/17 09:31; Start 01/29/17 at 12:00 Tamsulosin HCl (Flomax) 0.4 mg QHS PO Last administered on 02/06/17 21:02; Start 01/29/17 at 21:00 Hydralazine HCl (Apresoline) 100 mg TID PO Last administered on 02/04/17 20:54 ; Start 01/29/17 at 14:00; Stop 02/06/17 at 17:16; Status DC Losartan Potassium (Cozaar) 100 mg QHS PO Last administered on 02/04/17 20:56 ; Start 01/29/17 at 21:00; Stop 02/06/17 at 17:16; Status DC Metoprolol Tartrate (Lopressor) 100 mg BID PO Last administered on 02/05/17 06 :34; Start 01/29/17 at 12:00; Stop 02/05/17 at 13:28; Status DC Pantoprazole Sodium (Protonix) 40 mg DAILYAC PO Last administered on 02/06/17 12:32; Start 01/29/17 at 12:00 Darbepoetin Percy (Aranesp) 60 mcg [id number] SQ Last administered on 02/02/17 21 :15; Start 02/02/17 at 21:00 Morphine Sulfate 6 mg 6 mg PRN Q2HR PRN IV PAIN Last administered on 01/30/17 19:22; Start 01/29/17 at 11:45; Stop 02/01/17 at 15:20; Status DC Sodium Chloride (Iv Sodium Chloride 0.9% 1000ml Bag) 1,000 ml @ 1,000 mls/hr Q1H PRN IV hypotension; Start 01/29/17 at 12:55; Stop 01/29/17 at 18:54; Status DC Diphenhydramine HCl (Benadryl) 25 mg 1X PRN PRN IV ITCHING Last administered on 01/29/17 19:12; Start 01/29/17 at 13:00; Stop 01/30/17 at 12:59; Status DC Diphenhydramine HCl (Benadryl) 25 mg 1X PRN PRN IV ITCHING Last administered on 01/29/17 13:16; Start 01/29/17 at 13:00; Stop 01/30/17 at 12:59; Status DC Info (PHARMACY MONITORING -- do not chart) 1 each PRN DAILY PRN MC SEE COMMENTS ; Start 01/29/17 at 13:00; Status UNV Info (PHARMACY MONITORING -- do not chart) 1 each PRN DAILY PRN MC SEE COMMENTS ; Start 01/29/17 at 13:00; Stop 02/03/17 at 09:04; Status DC Nitroglycerin (Nitrostat) 0.4 mg STK-MED ONCE SL ; Start 01/29/17 at 16:55; Stop 01/29/17 at 16:56; Status DC Heparin Sodium (Porcine) 4000 unit 4,000 unit 1X ONCE IV Last administered on 01/29/17 17:37; Start 01/29/17 at 17:30; Stop 01/29/17 at 17:31; Status DC Heparin Sodium/ Sodium Chloride 500 ml @ As Directed STK-MED ONCE .ROUTE ; Start 01/29/17 at 17:54; Stop 01/29/17 at 17:55; Status DC Lidocaine HCl 20 ml STK-MED ONCE .ROUTE ; Start 01/29/17 at 17:54; Stop at 17:55; Status DC Iodixanol (Visipaque 320) 100 ml STK-MED ONCE .ROUTE ; Start 01/29/17 at 17:54; Stop 01/29/17 at 17:55; Status DC Metoprolol Tartrate (Lopressor) 5 mg STK-MED ONCE .ROUTE ; Start 01/29/17 at 18: 05; Stop 01/29/17 at 18:06; Status DC Fentanyl Citrate (Fentanyl 2ml Vial) 100 mcg STK-MED ONCE .ROUTE ; Start at 18:05; Stop 01/29/17 at 18:06; Status DC Midazolam HCl 2 mg 2 mg STK-MED ONCE .ROUTE ; Start 01/29/17 at 18:05; Stop at 18:06; Status DC Heparin Sodium/ Dextrose 500 ml @ As Directed STK-MED ONCE IV ; Start 01/29/17 at 18:18; Stop 01/29/17 at 18:19; Status DC Heparin Sodium (Porcine) 10,000 unit STK-MED ONCE .ROUTE ; Start 01/29/17 at 18: 18; Stop 01/29/17 at 18:19; Status DC Metoprolol Tartrate (Lopressor) 5 mg STK-MED ONCE .ROUTE ; Start 01/29/17 at 18: 25; Stop 01/29/17 at 18:26; Status DC Heparin Sodium/ Sodium Chloride 1,000 unit 1X ONCE IART Last administered on 18:51; Start 01/29/17 at 18:45; Stop 01/29/17 at 18:53; Status DC Heparin Sodium/ Sodium Chloride 1,000 unit 1X ONCE IART Last administered on 18:51; Start 01/29/17 at 18:45; Stop 01/29/17 at 18:53; Status DC Midazolam HCl (Versed) 1 mg 1X ONCE IV Last administered on 01/29/17 18:53; Start 01/29/17 at 18:45; Stop 01/29/17 at 18:53; Status DC Fentanyl Citrate (Fentanyl 2ml Vial) 50 mcg 1X ONCE IV Last administered on 18:53; Start 01/29/17 at 18:45; Stop 01/29/17 at 18:53; Status DC Iodixanol (Visipaque 320) 105 ml 1X ONCE IART Last administered on 01/29/17 18:52; Start 01/29/17 at 18:45; Stop 01/29/17 at 18:53; Status DC Heparin Sodium (Porcine) 4000 unit 4,000 unit 1X ONCE IV Last administered on 01/29/17 18:53; Start 01/29/17 at 18:45; Stop 01/29/17 at 18:53; Status DC Heparin Sodium/ Dextrose 500 ml @ 20 mls/hr CONT PRN IV SEE I/O RECORD; Start 01/29/17 at 18:24; Stop 01/30/17 at 14:01; Status DC Metoprolol Tartrate (Lopressor) 10 mg 1X ONCE IVP Last administered on 18:52; Start 01/29/17 at 18:45; Stop 01/29/17 at 18:53; Status DC Lidocaine HCl 10 ml 1X ONCE IJ Last administered on 01/29/17 18:52; Start at 18:45; Stop 01/29/17 at 18:53; Status DC Sodium Chloride (Normal Saline Flush) 3 ml QSHIFT PRN IV AFTER MEDS AND BLOOD DRAWS; Start 01/29/17 at 18:45 Docusate Sodium (Colace) 100 mg BID PO Last administered on 02/06/17 21:02; Start 01/29/17 at 21:00 Fentanyl Citrate (Fentanyl 2ml Vial) 50 mcg PRN Q1HR PRN IV SEVERE PAIN Last administered on 02/05/17 22:00; Start 01/29/17 at 18:45; Stop 02/06/17 at 10:21 ; Status DC Cyclobenzaprine HCl (Flexeril) 10 mg PRN TID PRN PO MUSCLE SPASMS Last administered on 01/30/17 05:22; Start 01/29/17 at 18:45 Ondansetron HCl (Zofran) 4 mg PRN Q6HRS PRN IV NAUSEA/VOMITING; Start 01/29/17 at 18:45; Stop 02/05/17 at 13:28; Status DC Nitroglycerin (Nitrostat) 0.4 mg PRN Q5MIN PRN SL CHEST PAIN; Start 01/29/17 at 18:45 Acetaminophen/ Hydrocodone Bitart (Lortab 5/325) 1 tab PRN Q4HRS PRN PO MILD PAIN Last administered on 02/04/17 17:16; Start 01/29/17 at 18:45; Stop at 10:21; Status DC Diltiazem HCl 5 mg 5 mg 1X ONCE IVP Last administered on 01/29/17 19:23; Start 01/29/17 at 19:15; Stop 01/29/17 at 19:18; Status DC Diltiazem HCl/ Dextrose (Cardizem) 125 ml @ 0 mls/hr CONT PRN IV SEE I/O RECORD ; Start 01/29/17 at 19:15; Stop 02/03/17 at 12:13; Status DC Diphenhydramine HCl (Benadryl) 50 mg PRN Q8HRS PRN IVP ITCHING Last administered on 02/02/17 09:41; Start 01/29/17 at 19:15; Stop 02/03/17 at 09:05 ; Status DC Nitroglycerin (Nitrostat) 0.4 mg STK-MED ONCE SL ; Start 01/29/17 at 17:00; Stop 01/30/17 at 08:02; Status DC Info (Anti-Coagulation Monitoring By Pharmacy) 1 each PRN DAILY PRN MC SEE COMMENTS Last administered on 02/04/17 09:51; Start 01/30/17 at 10:45; Stop at 18:43; Status DC Heparin Sodium (Porcine) 3000 unit 3,000 unit 1X ONCE IV Last administered on 01/30/17 17:36; Start 01/30/17 at 18:00; Stop 01/30/17 at 18:01; Status DC Heparin Sodium/ Dextrose 500 ml @ 24 mls/hr CONT PRN IV SEE I/O RECORD Last administered on 02/03/17 05:47; Start 01/30/17 at 18:00; Stop 02/04/17 at 18:41 ; Status DC Sodium Chloride (Iv Sodium Chloride 0.9% 1000ml Bag) 1,000 ml @ 50 mls/hr Q20H IV Last administered on 01/31/17 23:30; Start 01/31/17 at 02:45; Stop at 12:13; Status DC Dextrose 25 gm 1X ONCE IV Last administered on 01/31/17 06:05; Start at 06:30; Stop 01/31/17 at 06:31; Status DC Insulin Human Regular (Novolin R Vial) 10 unit 1X ONCE IV Last administered on 01/31/17 06:09; Start 01/31/17 at 06:30; Stop 01/31/17 at 06:31; Status DC Dextrose 25 gm 25 gm 1X ONCE IV Last administered on 01/31/17 09:04; Start at 09:00; Stop 01/31/17 at 09:03; Status DC Sodium Chloride 1,000 ml @ 1,000 mls/hr Q1H PRN IV hypotension; Start 01/31/17 at 09:28; Stop 01/31/17 at 15:27; Status DC Albumin Human (Albuminar) 200 ml @ 200 mls/hr 1X PRN PRN IV Hypotension; Start 01/31/17 at 09:30; Stop 01/31/17 at 15:29; Status DC Acetaminophen (Tylenol) 500 mg 1X PRN PRN PO MILD PAIN / TEMP; Start 01/31/17 at 09:30; Stop 02/01/17 at 09:29; Status DC Diphenhydramine HCl (Benadryl) 25 mg 1X PRN PRN IV ITCHING Last administered on 01/31/17 18:05; Start 01/31/17 at 09:30; Stop 02/01/17 at 09:29; Status DC Diphenhydramine HCl (Benadryl) 25 mg 1X PRN PRN IV ITCHING; Start 01/31/17 at 09:30; Stop 02/01/17 at 09:29; Status DC Info (PHARMACY MONITORING -- do not chart) 1 each PRN DAILY PRN MC SEE COMMENTS ; Start 01/31/17 at 09:30; Status UNV Diphenhydramine HCl (Benadryl) 50 mg PRN Q6HRS PRN IVP ITCHING Last administered on 02/04/17 23:01; Start 02/01/17 at 15:15 Fentanyl Citrate (Fentanyl 2ml Vial) 25 mcg PRN Q4HRS PRN IV MODERATE PAIN; Start 02/01/17 at 15:15; Stop 02/06/17 at 10:21; Status DC Diphenhydramine HCl (Benadryl) 25 mg 1X PRN PRN IV ITCHING; Start 02/02/17 at 09:30; Stop 02/03/17 at 09:29; Status DC Info (PHARMACY MONITORING -- do not chart) 1 each PRN DAILY PRN MC SEE COMMENTS ; Start 02/02/17 at 09:30; Stop 02/03/17 at 09:05; Status DC Info (PHARMACY MONITORING -- do not chart) 1 each PRN DAILY PRN MC SEE COMMENTS ; Start 02/02/17 at 09:30; Status Cancel Throat Lozenges (Cepacol Sore Throat Lozenge) 1 estelita PRN Q2HRS PRN PO SORE THROAT Last administered on 02/03/17 20:49; Start 02/03/17 at 07:15; Stop 02/05 at 13:28; Status DC Alprazolam (Xanax) 0.25 mg PRN Q6HRS PRN PO ANXIETY / AGITATION, 1ST CHOIC Last administered on 02/03/17 14:15; Start 02/03/17 at 12:15; Stop 02/06/17 at 10:21; Status DC Alprazolam 0.5 mg 0.5 mg PRN Q6HRS PRN PO ANXIETY / AGITATION, 2ND CHOIC Last administered on 02/06/17 08:13; Start 02/03/17 at 12:30; Stop 02/06/17 at 10:21 ; Status DC Vancomycin HCl 250 ml @ 250 mls/hr 1X PREOP ONCE IV Last administered on 02/05 08:33; Start 02/05/17 at 06:00; Stop 02/05/17 at 06:59; Status DC Ondansetron HCl (Zofran) 4 mg PRN Q6HRS PRN IV Nausea; Start 02/05/17 at 07:00 ; Stop 02/05/17 at 13:28; Status DC Fentanyl Citrate (Fentanyl 2ml Vial) 25 mcg PRN Q5MIN PRN IV MILD PAIN; Start 02/05/17 at 07:00; Stop 02/05/17 at 22:13; Status DC Fentanyl Citrate (Fentanyl 2ml Vial) 50 mcg PRN Q5MIN PRN IV MODERATE PAIN; Start 02/05/17 at 07:00; Stop 02/05/17 at 22:13; Status DC Morphine Sulfate 1 mg 1 mg PRN Q10MIN PRN IV SEVERE PAIN Last administered on 19:01; Start 02/05/17 at 07:00; Stop 02/06/17 at 06:59; Status DC Lactated Ringer's (Iv Lactated Ringers) 1,000 ml @ 0 mls/hr Q0M IV Last administered on 02/05/17 07:32; Start 02/05/17 at 07:00; Stop 02/05/17 at 13:28 ; Status DC Lidocaine HCl 2 ml 1X PRN PRN ID IV START; Start 02/05/17 at 07:00; Stop at 06:59; Status DC Hydromorphone HCl (Dilaudid) 0.5 mg PRN Q10MIN PRN IV SEVERE PAIN, Second choice; Start 02/05/17 at 07:00; Stop 02/06/17 at 06:59; Status DC Prochlorperazine Edisylate 5 mg 5 mg PACU PRN PRN IV NAUSEA; Start 02/05/17 at 07:00; Stop 02/06/17 at 06:59; Status DC Sodium Chloride (Iv Sodium Chloride 0.9% 1000ml Bag) 1,000 ml @ 1,000 mls/hr Q1H PRN IV hypotension; Start 02/04/17 at 09:55; Stop 02/04/17 at 15:54; Status DC Info (PHARMACY MONITORING -- do not chart) 1 each PRN DAILY PRN MC SEE COMMENTS ; Start 02/04/17 at 10:00 Throat Lozenges 1 estelita 1 estelita PRN Q2HRS PRN PO SORE THROAT; Start 02/04/17 at 11: 00 Magnesium Sulfate/ Dextrose 50 ml @ 25 mls/hr PRN DAILY PRN IV for Mag < 1.7 on am labs; Start 02/04/17 at 11:30; Stop 02/05/17 at 13:28; Status DC Potassium Chloride 70 meq/ Sodium Bicarbonate 12.5 meq/Lidocaine HCl 24 ml/ Parenteral Electrolytes 571.5 ml @ 571.5 mls/ hr 1X PERIOP ONCE IRR Last administered on 02/05/17 09:42; Start 02/05/17 at 06:00; Stop 02/05/17 at 06:59 ; Status DC Potassium Chloride 15 meq/ Sodium Bicarbonate 12.5 meq/Parenteral Electrolytes 520 ml @ 520 mls/hr 1X PERIOP ONCE IRR Last administered on 02/05/17t 09:42; Start 02/05/17 at 06:00; Stop 02/05/17 at 06:59; Status DC Heparin Sodium (Porcine)/ Lactated Ringer's (Iv Lactated Ringers) 1,020 ml @ 1, 020 mls/hr 1X PERIOP ONCE IRR Last administered on 02/05/17t 08:42; Start at 06:00; Stop 02/05/17 at 06:59; Status DC Aminocaproic Acid (Amicar) 5,000 mg STK-MED ONCE IV ; Start 02/05/17 at 06:13; Stop 02/05/17 at 06:14; Status DC Etomidate (Amidate) 20 mg STK-MED ONCE IV ; Start 02/05/17 at 06:13; Stop at 06:14; Status DC Lidocaine HCl 100 mg STK-MED ONCE .ROUTE ; Start 02/05/17 at 06:13; Stop at 06:14; Status DC Rocuronium [place] (Zemuron) 100 mg STK-MED ONCE .ROUTE ; Start 02/05/17 at 06: 14; Stop 02/05/17 at 06:15; Status DC Ephedrine Sulfate 50 mg STK-MED ONCE IV ; Start 02/05/17 at 06:14; Stop at 06:15; Status DC Phenylephrine HCl (Alexis-Synephrine Inj) 10 mg STK-MED ONCE .ROUTE ; Start at 06:14; Stop 02/05/17 at 06:15; Status DC Sufentanil Citrate (Sufenta) 100 mcg STK-MED ONCE .ROUTE ; Start 02/05/17 at 06: 14; Stop 02/05/17 at 06:15; Status DC Midazolam HCl (Versed) 2 mg STK-MED ONCE .ROUTE ; Start 02/05/17 at 06:14; Stop 02/05/17 at 06:15; Status DC Fentanyl Citrate 100 mcg 100 mcg STK-MED ONCE .ROUTE ; Start 02/05/17 at 06:15; Stop 02/05/17 at 06:16; Status DC Nitroglycerin/ Dextrose (Nitroglycerin Drip) 250 ml @ As Directed STK-MED ONCE IV ; Start 02/05/17 at 06:15; Stop 02/05/17 at 06:16; Status DC Heparin Sodium (Porcine) 30,000 unit STK-MED ONCE .ROUTE ; Start 02/05/17 at 06: 16; Stop 02/05/17 at 06:17; Status DC Cellulose 1 each STK-MED ONCE .ROUTE Last administered on 02/05/17 08:42; Start 02/05/17 at 06:42; Stop 02/05/17 at 06:43; Status DC Papaverine HCl 60 mg STK-MED ONCE .ROUTE Last administered on 02/05/17 08:42; Start 02/05/17 at 06:42; Stop 02/05/17 at 06:43; Status DC Aspirin (Aspirin) 300 mg STK-MED ONCE .ROUTE Last administered on 02/05/17 12: 58; Start 02/05/17 at 06:42; Stop 02/05/17 at 06:43; Status DC Mineral Oil (Muri-Lube) 10 ml STK-MED ONCE MC Last administered on 02/05/17 12 :10; Start 02/05/17 at 06:43; Stop 02/05/17 at 06:44; Status DC Sodium Chloride 50 ml 50 ml STK-MED ONCE IJ Last administered on 02/05/17 08: 42; Start 02/05/17 at 06:43; Stop 02/05/17 at 06:44; Status DC Mannitol (Mannitol Iv Soln) 500 ml @ 0 mls/hr 1X ONCE IV ; Start 02/05/17 at 07 :15; Stop 02/05/17 at 07:16; Status DC Sufentanil Citrate (Sufenta) 100 mcg STK-MED ONCE .ROUTE ; Start 02/05/17 at 08: 01; Stop 02/05/17 at 08:02; Status DC Midazolam HCl (Versed) 5 mg STK-MED ONCE .ROUTE ; Start 02/05/17 at 09:10; Stop 02/05/17 at 09:11; Status DC Heparin Sodium (Porcine) 10,000 unit STK-MED ONCE .ROUTE ; Start 02/05/17 at 09: 15; Stop 02/05/17 at 09:16; Status DC Rocuronium [place] (Zemuron) 100 mg STK-MED ONCE .ROUTE ; Start 02/05/17 at 09: 43; Stop 02/05/17 at 09:44; Status DC Heparin Sodium (Porcine) 10,000 unit STK-MED ONCE .ROUTE ; Start 02/05/17 at 10: 57; Stop 02/05/17 at 10:58; Status DC Protamine Sulfate 250 mg STK-MED ONCE IV ; Start 02/05/17 at 11:08; Stop at 11:09; Status DC Protamine Sulfate 50 mg STK-MED ONCE IV ; Start 02/05/17 at 11:09; Stop at 11:10; Status DC Protamine Sulfate 50 mg STK-MED ONCE IV ; Start 02/05/17 at 11:09; Stop at 11:10; Status DC Protamine Sulfate 50 mg STK-MED ONCE IV ; Start 02/05/17 at 11:09; Stop at 11:10; Status DC Isoflurane (Isoflurane) 90 ml STK-MED ONCE IH ; Start 02/05/17 at 11:34; Stop at 11:35; Status DC Heparin Sodium (Porcine) 10,000 unit STK-MED ONCE .ROUTE ; Start 02/05/17 at 12: 59; Stop 02/05/17 at 13:00; Status DC Lidocaine HCl (Xylocaine-Mpf 1% Vial) 5 ml STK-MED ONCE .ROUTE ; Start 02/05/17 at 12:59; Stop 02/05/17 at 13:00; Status DC Aminocaproic Acid (Amicar) 5,000 mg STK-MED ONCE IV ; Start 02/05/17 at 12:59; Stop 02/05/17 at 13:00; Status DC Magnesium Sulfate 5 gm STK-MED ONCE .ROUTE ; Start 02/05/17 at 12:59; Stop 02/05 at 13:00; Status DC Calcium Chloride 1000 mg 1,000 mg STK-MED ONCE IV ; Start 02/05/17 at 12:59; Stop 02/05/17 at 13:00; Status DC Albumin Human (Albuminar) 200 ml @ As Directed STK-MED ONCE IV ; Start at 12:59; Stop 02/05/17 at 13:00; Status DC Heparin Sodium (Porcine) 62918 unit 30,000 unit STK-MED ONCE .ROUTE ; Start at 12:59; Stop 02/05/17 at 13:00; Status DC Lactated Ringer's 1,000 ml @ 30 mls/hr Q24H IV Last administered on 02/06/17 12:37; Start 02/05/17 at 13:15 Albumin Human 250 ml @ 60 mls/hr PRN Q4HRS PRN IV SEE I/O RECORD Last administered on 02/05/17 17:20; Start 02/05/17 at 13:15; Stop 02/06/17 at 16:09 ; Status DC Vancomycin HCl 1.5 gm/Sodium Chloride 500 ml @ 250 mls/hr Q12H IV ; Start 02/05 at 13:30; Stop 02/06/17 at 15:29; Status UNV Insulin Human Regular/Sodium Chloride (Novolin R Vial/ Iv Normal Saline 150ml) 151.5 ml @ 0 mls/hr CONT PRN PRN IV SEE I/O RECORD; Start 02/05/17 at 13:15 Dextrose 25 gm 25 gm PRN Q15MIN PRN IV LOW BLOOD SUGAR; Start 02/05/17 at 13:15 Nitroglycerin/ Dextrose 250 ml @ 0 mls/hr CONT PRN PRN IV SEE I/O RECORD; Start 02/05/17 at 13:15 Amiodarone HCl 900 mg/Dextrose 518 ml @ 33.33 mls/ hr CONT PRN PRN IV RUNS OF VT; Start 02/05/17 at 13:15 Amiodarone HCl 150 mg/Dextrose 103 ml @ 200 mls/hr 1X PRN PRN IV VT; Start at 13:15 Magnesium Sulfate/ Dextrose (Magnesium Sulfate PREMIX 1GM) 100 ml @ 100 mls/hr PRN DAILY PRN IV FOR MAG < 2.2; Start 02/05/17 at 13:15 Famotidine (Pepcid) 20 mg Q48H IVP Last administered on 02/05/17 20:37; Start 02/05/17 at 21:00; Stop 02/06/17 at 15:11; Status DC Ondansetron HCl (Zofran) 4 mg PRN Q4HRS PRN IV NAUSEA/VOMITING Last administered on 02/05/17 20:02; Start 02/05/17 at 13:15 Morphine Sulfate 2 mg PRN Q1HR PRN IV PAIN Last administered on 02/07/17 01:32 ; Start 02/05/17 at 13:15 Acetaminophen (Tylenol) 650 mg PRN Q4HRS PRN PO MILD PAIN / TEMP; Start at 13:15 Acetaminophen (Tylenol) 650 mg PRN Q4HRS PRN CO MILD PAIN / TEMP; Start at 13:15 Meperidine HCl 12.5 mg 12.5 mg PRN Q15MIN PRN IV SHIVERING; Start 02/05/17 at 13:15; Stop 02/06/17 at 10:21; Status DC Propofol (Diprivan) 100 ml @ 0 mls/hr CONT PRN PRN IV POSTOP SEDATION UNTIL EXTUBATE Last administered on 02/05/17 17:23; Start 02/05/17 at 13:15; Stop at 22:13; Status DC Senna/Docusate Sodium (Senna Plus) 1 tab BID PO Last administered on 02/06/17 21:02; Start 02/05/17 at 21:00 Bisacodyl (Dulcolax Supp) 10 mg PRN DAILY PRN CO NO BOWEL MOVEMENT; Start 02/05 at 13:15 Chlorhexidine Gluconate (Peridex) 15 ml BID MM Last administered on 02/05/17 20:37; Start 02/05/17 at 21:00; Stop 02/05/17 at 22:13; Status DC Aspirin (Ecotrin) 325 mg DAILYWBKFT PO Last administered on 02/06/17 08:14; Start 02/06/17 at 08:00 Aspirin (Aspirin) 300 mg PRN DAILY PRN CO IF UNABLE TO TAKE PO; Start 02/05/17 at 13:15 Albuterol Sulfate (Ventolin Neb Soln) 2.5 mg PRN Q4HRS PRN NEB SHORTNESS OF BREATH Last administered on 02/06/17 00:15; Start 02/05/17 at 13:15 Metoprolol Tartrate 25 mg 25 mg BID PO ; Start 02/06/17 at 09:00; Stop 02/06/17 at 17:16; Status DC Clevidipine (Cleviprex) 100 ml @ 0 mls/hr CONT PRN IV PER PROTOCOL Last administered on 02/05/17 17:25; Start 02/05/17 at 13:15 Oxycodone/ Acetaminophen (Percocet 5/325) 1 tab PRN Q4HRS PRN PO MILD PAIN; Start 02/05/17 at 13:15 Oxycodone/ Acetaminophen (Percocet 5/325) 2 tab PRN Q4HRS PRN PO MODERATE PAIN , SEVERE PAIN Last administered on 02/07/17 05:32; Start 02/05/17 at 13:15 Vecuronium [place] 10 mg 10 mg STK-MED ONCE IV ; Start 02/05/17 at 13:32; Stop 02/05/17 at 13:33; Status DC Vancomycin HCl/ Sodium Chloride (Iv Sodium Chloride 0.9% 100ml) 100 ml @ 100 mls/hr 1X ONCE IV Last administered on 02/06/17 15:00; Start 02/06/17 at 16: 00; Stop 02/06/17 at 16:59; Status DC Dextrose 25 gm 1X ONCE IV ; Start 02/06/17 at 07:30; Stop 02/06/17 at 07:31; Status DC Calcium Chloride 2,000 mg 1X ONCE IV ; Start 02/06/17 at 07:30; Stop 02/06/17 at 07:31; Status DC Insulin Human Regular (Novolin R Vial) 10 unit 1X ONCE IV ; Start 02/06/17 at 07:30; Stop 02/06/17 at 07:31; Status DC Vecuronium [place] 10 mg 10 mg STK-MED ONCE IV ; Start 02/05/17 at 13:30; Stop 02/06/17 at 07:51; Status DC Sodium Chloride 1,000 ml @ 1,000 mls/hr Q1H PRN IV hypotension; Start 02/06/17 at 08:26; Stop 02/06/17 at 14:25; Status DC Albumin Human (Albuminar) 200 ml @ 200 mls/hr 1X PRN PRN IV Hypotension Last administered on 02/06/17 09:30; Start 02/06/17 at 08:30; Stop 02/06/17 at 14:29 ; Status DC Acetaminophen (Tylenol) 500 mg 1X PRN PRN PO MILD PAIN / TEMP; Start 02/06/17 at 08:30; Stop 02/07/17 at 08:29 Diphenhydramine HCl (Benadryl) 25 mg 1X PRN PRN IV ITCHING; Start 02/06/17 at 08:30; Stop 02/07/17 at 08:29 Diphenhydramine HCl (Benadryl) 25 mg 1X PRN PRN IV ITCHING; Start 02/06/17 at 08:30; Stop 02/07/17 at 08:29 Info (PHARMACY MONITORING -- do not chart) 1 each PRN DAILY PRN MC SEE COMMENTS ; Start 02/06/17 at 08:30; Stop 02/06/17 at 15:09; Status DC Clonazepam (Klonopin) 0.5 mg PRN Q6HRS PRN PO ANXIETY / AGITATION; Start at 10:15 Famotidine 20 mg 20 mg Q48H PO ; Start 02/07/17 at 21:00 Albumin Human (Plasmanate) 250 ml @ 60 mls/hr PRN Q4HRS PRN IV SEE I/O RECORD ; Start 02/06/17 at 16:09 Alprazolam (Xanax) 0.5 mg PRN Q8HRS PRN PO ANXIETY / AGITATION Last administered on 02/06/17t 22:27; Start 02/06/17 at 22:15 Active Scripts Active Clopidogrel (Clopidogrel Bisulfate) 75 Mg Tablet 1 Tab PO DAILY Isosorbide Mononitrate Er (Isosorbide Mononitrate) 30 Mg Tab.er.24h 30 Mg PO DAILY Flomax (Tamsulosin Hcl) 0.4 Mg Cap.er.24h 0.4 Mg PO QHS Reported Hydrocodone-Apap 5-325 (Hydrocodone Bit/Acetaminophen) 1 Each Tablet 1 Tab PO PRN Q6HRS PRN Furosemide 80 Mg Tablet 1 Tab PO BID Nephro-Chilo Tablet (Folic Acid/Vitamin B Comp W-C) 0.8 Mg Tablet 1 Tab PO DAILY Paroxetine Hcl 20 Mg Tablet 40 Mg PO DAILY Tums (Calcium Carbonate) 200 Mg Tab.chew 800 Mg PO TIDAC Omeprazole Magnesium 20 Mg Capsule.dr 20 Mg PO DAILY Clonidine Hcl 0.3 Mg Tablet 1 Tab PO DAILY Hydralazine Hcl 100 Mg Tablet 100 Mg PO TID LAST DOSE: 02/24/16 AFTERNOON NEXT DOSE: 02/24/16 BEDTIME Amlodipine Besylate 10 Mg Tablet 10 Mg PO BID LAST DOSE: 02/24/16 AM NEXT DOSE: 02/25/16 AM Xanax (Alprazolam) 0.5 Mg Tablet 0.5 Mg PO Q6HRS PRN LAST DOSE: 02/23/16 BEDTIME NEXT DOSE: 02/24/16 BEDTIME Losartan Potassium 100 Mg Tablet 100 Mg PO HS LAST DOSE: 02/23/16 BEDTIME NEXT DOSE: 02/24/16 BEDTIME Metoprolol Tartrate 100 Mg Tablet 100 Mg PO BID LAST DOSE: 02/24/16 AM NEXT DOSE: 02/24/16 BEDTIME Lillian Chewable (Aspirin) 81 Mg Tab.chew 324 Mg PO DAILY LAST DOSE: 02/24/16 AM NEXT DOSE: 02/25/16 AM Vitals/I & O Vital Sign - Last 24 Hours 02/06/17 02/06/17 02/06/17 02/06/17 09:00 09:32 10:00 11:00 Pulse 80 80 106 Resp 18 20 18 18 B/P 130/53 108/54 121/48 Pulse Ox 93 95 93 97 O2 Delivery Nasal Cannula Nasal Cannula Nasal Cannula Nasal Cannula O2 Flow Rate 6.0 6.0 6.0 6.0 02/06/17 02/06/17 02/06/17 02/06/17 12:00 12:00 12:33 13:00 Pulse 80 80 Resp 18 18 18 B/P 110/55 106/55 Pulse Ox 97 97 97 O2 Delivery Nasal Cannula Nasal Cannula Nasal Cannula Nasal Cannula O2 Flow Rate 6.0 4.0 6.0 6.0 02/06/17 02/06/17 02/06/17 02/06/17 14:00 14:55 15:00 16:00 Temp 98.4 98.4 Pulse 80 72 67 Resp 20 18 20 20 B/P 108/52 108/52 107/50 Pulse Ox 96 96 93 93 O2 Delivery Nasal Cannula Nasal Cannula Nasal Cannula Nasal Cannula O2 Flow Rate 5.0 5.0 4.0 4.0 02/06/17 02/06/17 02/06/17 02/06/17 16:00 16:11 17:00 18:00 Pulse 70 68 Resp 18 16 16 B/P 102/51 96/50 Pulse Ox 93 94 95 O2 Delivery Nasal Cannula Nasal Cannula Nasal Cannula Nasal Cannula O2 Flow Rate 4.0 4.0 4.0 4.0 02/06/17 02/06/17 02/06/17 02/06/17 19:00 19:05 20:00 20:00 Temp 98.2 98.2 Pulse 70 70 Resp 18 22 20 B/P 105/59 110/53 Pulse Ox 94 94 92 O2 Delivery Nasal Cannula Nasal Cannula Nasal Cannula Nasal Cannula O2 Flow Rate 4.0 4.0 4.0 4.0 02/06/17 02/06/17 02/06/17 02/06/17 21:00 21:02 22:00 23:00 Pulse 72 76 74 Resp 24 B/P 99/49 102/46 108/57 Pulse Ox 94 94 93 94 O2 Delivery Nasal Cannula Nasal Cannula Nasal Cannula Nasal Cannula O2 Flow Rate 4.0 4.0 4.0 4.0 02/06/17 02/06/17 02/06/17 02/07/17 23:05 23:59 23:59 01:00 Temp 97.9 97.9 Pulse 71 71 Resp 24 22 20 B/P 100/51 106/42 Pulse Ox 92 94 93 O2 Delivery BiPAP/CPAP Nasal Cannula Nasal Cannula Nasal Cannula O2 Flow Rate 4.0 4.0 4.0 4.0 02/07/17 02/07/17 02/07/17 02/07/17 01:32 02:00 02:00 03:00 Pulse 70 72 Resp 24 18 18 18 B/P 110/56 94/47 Pulse Ox 95 95 95 93 O2 Delivery Nasal Cannula Nasal Cannula Nasal Cannula Nasal Cannula O2 Flow Rate 4.0 4.0 4.0 4.0 02/07/17 02/07/17 02/07/17 02/07/17 04:00 04:00 05:00 05:32 Pulse 70 70 Resp 16 18 18 B/P 103/46 96/49 Pulse Ox 92 94 93 O2 Delivery Nasal Cannula Nasal Cannula Nasal Cannula Nasal Cannula O2 Flow Rate 4.0 4.0 4.0 4.0 02/07/17 02/07/17 02/07/17 06:00 06:30 07:00 Pulse 72 70 Resp 22 18 22 B/P 118/69 112/54 Pulse Ox 96 90 94 O2 Delivery Nasal Cannula Nasal Cannula Nasal Cannula O2 Flow Rate 4.0 4.0 4.0 Intake and Output 02/06/17 02/06/17 02/07/17 15:00 23:00 07:00 Intake Total 285 ml 850 ml 545 ml Output Total 105 ml 5 ml 40 ml Balance 180 ml 845 ml 505 ml Nutrition Consultation Dietary Evaluation: Recommendations by RD: Increase Calorie Intake Comments: Discussed typical nutrition care plan for CABG surgery Continue to encourage diet compliance to the cardiac/renal diets D/C the boost brejulio cesare-pt diet advanced, meeting nutrition needs via PO intake Expected Outcomes/Goals: meet 75% estimated nutrition needs Malnutrition Findings: Reduced Resin Coater Strength: N/A Weight Status: Overweight ARSALAN ESCAMILLA MD Feb 07, 2017 08:21
--- NOTE | 2017-02-07 08:36 | RAD ---
Indication respiratory distress. A single view of the chest was obtained and is compared to a study one day earlier. Postoperative changes are noted. Left Port-A-Cath and left IJ catheter are noted as well as a left chest tube. Mediastinal tube, seen previously, has been removed. Some volume loss, compatible with atelectasis, persists in the right upper lobe similar to the previous study. There is new volume loss in the left lower lobe likely reflecting atelectasis. IMPRESSION: Unchanged volume loss, compatible with atelectasis, in the right upper lobe. New volume loss, probably reflecting atelectasis, in the left lower lobe
--- NOTE | 2017-02-07 09:13 | PDOC ---
Dialysis Progress Note Dialysis Note Dialysis Note Seen on Hemodialysis, tolerating treatment Well so far Vitals on Hemodialysis: 113/50 76 afeb 16 General Appearance: Awake: Alert Oriented x 2- 3 Neck: No JVD or JVP Chest: CTA Oliver Heart: S1 S2 Abdomen - Soft NTND Extremities - No Edema ESRD : Dialysis as below F 180 NR 3.5 Hrs 3K 2.5 Ca 140 Na 30 HC03 Qb 350 + Qd 500+ Heparin none Uf 3-4 Kgs or to dry weight as tolerated may give 25-50 gms of 25% Albumin if needed to maintain Hemodynamic stability One time toradol if needed for pain since pt develops AMS, ? 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 Vitals Vital Signs Vital Signs Date Time Temp Pulse Resp B/P Pulse Ox O2 Delivery O2 Flow Rate FiO2 02/07/17 07:00 70 22 112/54 94 Nasal Cannula 4.0 02/06/17 23:59 97.9 97.9 Labs Last Labs Laboratory Tests Test 02/05/17 09:19 02/05/17 09:21 02/05/17 09:48 02/05/17 10:17 Activated Clotting Time 608SEC (90-125) Bedside Hemoglobin (Calculated) 7.5g/dL (14-18) 8.5g/dL (14-18) Bedside Hematocrit 22% (37-52) 23% (37-52) 25% (37-52) Bedside Arterial pH 7.56 (7.35-7.45) 7.41 (7.35-7.45) Bedside Arterial pCO2 34mmHg (35-45) 47mmHg (35-45) Bedside Arterial pO2 357mmHg (75-100) 501mmHg (75-100) Bedside Arterial HCO3 30mmol/L (21-28) 30mmol/L (21-28) Bedside Arterial Total CO2 31mmol/L (21-32) 31mmol/L (21-32) Arterial Bld O2 Saturation (Measur) 100% (95-99) 100% (95-99) Bedside Arterial Blood Base Excess 8mmol/L (0-3) 5mmol/L (0-3) Bedside FiO2 100.0 100 100.0 Bedside Sodium 136mmol/L (135-145) 134mmol/L (135-145) 136mmol/L (135-145) Bedside Potassium 3.7mmol/L (3.5-5.0) 3.8mmol/L (3.5-5.0) 4.6mmol/L (3.5-5.0) Glucose Level 95mg/dL (70-99) 101mg/dL (70-99) 97mg/dL (70-99) Bedside Ionized Calcium (Mac) 0.96mmol/L (1.13-1.32) 0.88mmol/L (1.13-1.32) 0.93mmol/L (1.13-1.32) Bedside Venous pH 7.42 (7.32-7.42) Bedside Venous pCO2 37mmHg (41-51) Bedside Venous pO2 47mmHg (20-40) Bedside Venous HCO3 24mmol/L (24-28) Bedside Venous Blood Total CO2 25mmol/L (21-32) Bedside Venous Blood O2 Saturation 83% Bedside Venous Blood Base Excess -1mmol/L (0-3) POC Venous Hemoglobin (Calc) 7.8g/dL (14-18) Test 02/05/17 10:45 02/05/17 10:47 02/05/17 11:14 02/05/17 11:17 Activated Clotting Time 500SEC (90-125) 570SEC (90-125) Bedside Hemoglobin (Calculated) 7.8g/dL (14-18) 8.5g/dL (14-18) Bedside Hematocrit 23% (37-52) 25% (37-52) Bedside Arterial pH 7.46 (7.35-7.45) 7.46 (7.35-7.45) Bedside Arterial pCO2 44mmHg (35-45) 40mmHg (35-45) Bedside Arterial pO2 377mmHg (75-100) 327mmHg (75-100) Bedside Arterial HCO3 31mmol/L (21-28) 28mmol/L (21-28) Bedside Arterial Total CO2 32mmol/L (21-32) 30mmol/L (21-32) Arterial Bld O2 Saturation (Measur) 100% (95-99) 100% (95-99) Bedside Arterial Blood Base Excess 7mmol/L (0-3) 5mmol/L (0-3) Bedside FiO2 100.0 80.0 Bedside Sodium 136mmol/L (135-145) 136mmol/L (135-145) Bedside Potassium 4.7mmol/L (3.5-5.0) 4.9mmol/L (3.5-5.0) Glucose Level 103mg/dL (70-99) 108mg/dL (70-99) Bedside Ionized Calcium (Mac) 0.92mmol/L (1.13-1.32) 0.93mmol/L (1.13-1.32) Test 02/05/17 11:47 02/05/17 11:49 02/05/17 12:12 02/05/17 12:14 Activated Clotting Time 446SEC (90-125) 105SEC (90-125) Bedside Hemoglobin (Calculated) 7.8g/dL (14-18) 7.5g/dL (14-18) Bedside Hematocrit 23% (37-52) 22% (37-52) Bedside Arterial pH 7.42 (7.35-7.45) 7.47 (7.35-7.45) Bedside Arterial pCO2 43mmHg (35-45) 38mmHg (35-45) Bedside Arterial pO2 318mmHg (75-100) 286mmHg (75-100) Bedside Arterial HCO3 28mmol/L (21-28) 27mmol/L (21-28) Bedside Arterial Total CO2 30mmol/L (21-32) 29mmol/L (21-32) Arterial Bld O2 Saturation (Measur) 100% (95-99) 100% (95-99) Bedside Arterial Blood Base Excess 4mmol/L (0-3) 4mmol/L (0-3) Bedside FiO2 80.0 100.0 Bedside Sodium 135mmol/L (135-145) 135mmol/L (135-145) Bedside Potassium 4.9mmol/L (3.5-5.0) 4.6mmol/L (3.5-5.0) Glucose Level 107mg/dL (70-99) 101mg/dL (70-99) Bedside Ionized Calcium (Mac) 0.93mmol/L (1.13-1.32) 1.45mmol/L (1.13-1.32) Test 02/05/17 12:16 02/05/17 13:15 02/05/17 14:15 02/05/17 14:20 White Blood Count 4.9x10^3/uL (4.0-11.0) 6.2x10^3/uL (4.0-11.0) Hemoglobin 7.3g/dL (13.0-17.5) 8.7g/dL (13.0-17.5) Hematocrit 21.9% (39.0-53.0) 26.0% (39.0-53.0) Platelet Count 90x10^3/uL (140-400) 135x10^3/uL (140-400) Prothrombin Time 17.8SEC (11.7-14.0) 14.9SEC (11.7-14.0) Prothromb Time International Ratio 1.6 (0.8-1.1) 1.2 (0.8-1.1) Activated Partial Thromboplast Time 42SEC (24-38) Fibrinogen 392mg/dL (200-440) O2 Saturation 94% (92-99) 88% (92-99) Arterial Blood pH 7.44 (7.35-7.45) 7.39 (7.35-7.45) Arterial Blood pCO2 at Patient Temp 32mmHg (35-46) 34mmHg (35-46) Arterial Blood pO2 at Patient Temp 69mmHg (65-108) 57mmHg (65-108) Arterial Blood HCO3 21mmol/L (21-28) 20mmol/L (21-28) Arterial Blood Base Excess -3mmol/L (-3-3) -4mmol/L (-3-3) Oxyhemoglobin 93.0% Methemoglobin 0.2% (0.0-1.9) Carbon Monoxide, Quantitative 0.3% (0.0-1.9) FiO2 80 40 Red Blood Count 2.84x10^6/uL (4.30-5.70) Mean Corpuscular Volume 92fL (79-100) Mean Corpuscular Hemoglobin 31pg (25-35) Mean Corpuscular Hemoglobin Concent 33g/dL (31-37) Red Cell Distribution Width 14.8% (11.5-14.5) Sodium Level 137mmol/L (136-145) Potassium Level 4.8mmol/L (3.5-5.1) Chloride Level 100mmol/L (98-107) Carbon Dioxide Level 22mmol/L (21-32) Anion Gap 15 (6-14) Blood Urea Nitrogen 22mg/dL (8-26) Creatinine 6.8mg/dL (0.7-1.3) Estimated GFR (Cockcroft-Gault) 8.3 Glucose Level 136mg/dL (70-99) Glucose (Fingerstick) 127mg/dL (70-99) Calcium Level 9.8mg/dL (8.5-10.1) Magnesium Level 2.1mg/dL (1.8-2.4) Test 02/05/17 17:00 02/05/17 17:30 02/05/17 19:02 02/05/17 20:13 Glucose (Fingerstick) 104mg/dL (70-99) 132mg/dL (70-99) 122mg/dL (70-99) White Blood Count 9.8x10^3/uL (4.0-11.0) Red Blood Count 2.71x10^6/uL (4.30-5.70) Hemoglobin 8.1g/dL (13.0-17.5) Hematocrit 25.0% (39.0-53.0) Mean Corpuscular Volume 92fL (79-100) Mean Corpuscular Hemoglobin 30pg (25-35) Mean Corpuscular Hemoglobin Concent 33g/dL (31-37) Red Cell Distribution Width 15.0% (11.5-14.5) Platelet Count 141x10^3/uL (140-400) Potassium Level 5.5mmol/L (3.5-5.1) Test 02/05/17 21:58 02/06/17 00:11 02/06/17 02:11 02/06/17 04:22 Glucose (Fingerstick) 129mg/dL (70-99) 138mg/dL (70-99) 130mg/dL (70-99) 132mg/dL (70-99) Test 02/06/17 05:35 02/06/17 05:45 02/06/17 05:46 02/06/17 08:48 Potassium Level 6.8mmol/L (3.5-5.1) 7.0mmol/L (3.5-5.1) White Blood Count 14.5x10^3/uL (4.0-11.0) Red Blood Count 2.71x10^6/uL (4.30-5.70) Hemoglobin 8.1g/dL (13.0-17.5) Hematocrit 25.3% (39.0-53.0) Mean Corpuscular Volume 94fL (79-100) Mean Corpuscular Hemoglobin 30pg (25-35) Mean Corpuscular Hemoglobin Concent 32g/dL (31-37) Red Cell Distribution Width 15.0% (11.5-14.5) Platelet Count 157x10^3/uL (140-400) Sodium Level 135mmol/L (136-145) Chloride Level 98mmol/L (98-107) Carbon Dioxide Level 17mmol/L (21-32) Anion Gap 20 (6-14) Blood Urea Nitrogen 30mg/dL (8-26) Creatinine 8.3mg/dL (0.7-1.3) Estimated GFR (Cockcroft-Gault) 6.6 Glucose Level 142mg/dL (70-99) Calcium Level 9.2mg/dL (8.5-10.1) Phosphorus Level 6.5mg/dL (2.6-4.7) Magnesium Level 2.3mg/dL (1.8-2.4) Creatine Kinase 669U/L (39-308) Albumin 3.5g/dL (3.4-5.0) Glucose (Fingerstick) 127mg/dL (70-99) 150mg/dL (70-99) Test 02/06/17 11:07 02/06/17 12:45 02/06/17 17:22 02/06/17 22:17 Glucose (Fingerstick) 125mg/dL (70-99) 115mg/dL (70-99) 121mg/dL (70-99) Potassium Level 3.7mmol/L (3.5-5.1) Test 02/07/17 05:35 White Blood Count 9.1x10^3/uL (4.0-11.0) Red Blood Count 2.54x10^6/uL (4.30-5.70) Hemoglobin 7.7g/dL (13.0-17.5) Hematocrit 23.5% (39.0-53.0) Mean Corpuscular Volume 93fL (79-100) Mean Corpuscular Hemoglobin 30pg (25-35) Mean Corpuscular Hemoglobin Concent 33g/dL (31-37) Red Cell Distribution Width 14.9% (11.5-14.5) Platelet Count 136x10^3/uL (140-400) Sodium Level 141mmol/L (136-145) Potassium Level 4.0mmol/L (3.5-5.1) Chloride Level 97mmol/L (98-107) Carbon Dioxide Level 31mmol/L (21-32) Anion Gap 13 (6-14) Blood Urea Nitrogen 22mg/dL (8-26) Creatinine 6.0mg/dL (0.7-1.3) Estimated GFR (Cockcroft-Gault) 9.6 Glucose Level 117mg/dL (70-99) Calcium Level 9.1mg/dL (8.5-10.1) Phosphorus Level 4.9mg/dL (2.6-4.7) Magnesium Level 1.9mg/dL (1.8-2.4) Albumin 3.4g/dL (3.4-5.0) Laboratory Tests Test 02/06/17 11:07 02/06/17 12:45 02/06/17 17:22 02/06/17 22:17 Glucose (Fingerstick) 125mg/dL (70-99) 115mg/dL (70-99) 121mg/dL (70-99) Potassium Level 3.7mmol/L (3.5-5.1) Test 02/07/17 05:35 White Blood Count 9.1x10^3/uL (4.0-11.0) Red Blood Count 2.54x10^6/uL (4.30-5.70) Hemoglobin 7.7g/dL (13.0-17.5) Hematocrit 23.5% (39.0-53.0) Mean Corpuscular Volume 93fL (79-100) Mean Corpuscular Hemoglobin 30pg (25-35) Mean Corpuscular Hemoglobin Concent 33g/dL (31-37) Red Cell Distribution Width 14.9% (11.5-14.5) Platelet Count 136x10^3/uL (140-400) Sodium Level 141mmol/L (136-145) Potassium Level 4.0mmol/L (3.5-5.1) Chloride Level 97mmol/L (98-107) Carbon Dioxide Level 31mmol/L (21-32) Anion Gap 13 (6-14) Blood Urea Nitrogen 22mg/dL (8-26) Creatinine 6.0mg/dL (0.7-1.3) Estimated GFR (Cockcroft-Gault) 9.6 Glucose Level 117mg/dL (70-99) Calcium Level 9.1mg/dL (8.5-10.1) Phosphorus Level 4.9mg/dL (2.6-4.7) Magnesium Level 1.9mg/dL (1.8-2.4) Albumin 3.4g/dL (3.4-5.0) Assessment Assessment Problems Medical Problems: (1) Flank pain Status: Acute (2) Pancreatitis Status: Acute (3) Unstable angina pectoris Status: Acute Problems: Plan Plan of Care Problems Medical Problems: (1) Flank pain Status: Acute (2) Pancreatitis Status: Acute TING GARDUNO MD Feb 07, 2017 09:12
[2017-02-07] MEDS: DIPHENHYDRAMINE 50 MG/ML VIAL IVP PRN (10:24)
[2017-02-07] MEDS ORDERED: DIALYSIS PATIENT. MC PRN (11:30)
[2017-02-07] MEDS ORDERED: KETOROLAC 15 MG/ML VIAL. IV ONE (12:00)
--- NOTE | 2017-02-07 12:32 | PDOC ---
Subjective: Subjective: Pt - upset, frustrated with everyone, in pain, anxious, wants to leave, hungry. Objective: Objective: Per RN - c/o pain today, upset he couldn't eat before dialysis (ate w/o issue yesterday), pericardial friction rub, surgeon to eval and remove drain. Vital Signs: Vital Signs Date Time Temp Pulse Resp B/P Pulse Ox O2 Delivery O2 Flow Rate FiO2 02/07/17 07:00 70 22 112/54 94 Nasal Cannula 4.0 02/06/17 23:59 97.9 97.9 Labs: Laboratory Tests Test 02/06/17 12:45 02/06/17 17:22 02/06/17 22:17 02/07/17 05:35 Potassium Level 3.7mmol/L 4.0mmol/L Glucose (Fingerstick) 115mg/dL 121mg/dL White Blood Count 9.1x10^3/uL Red Blood Count 2.54x10^6/uL Hemoglobin 7.7g/dL Hematocrit 23.5% Mean Corpuscular Volume 93fL Mean Corpuscular Hemoglobin 30pg Mean Corpuscular Hemoglobin Concent 33g/dL Red Cell Distribution Width 14.9% Platelet Count 136x10^3/uL Sodium Level 141mmol/L Chloride Level 97mmol/L Carbon Dioxide Level 31mmol/L Anion Gap 13 Blood Urea Nitrogen 22mg/dL Creatinine 6.0mg/dL Estimated GFR (Cockcroft-Gault) 9.6 Glucose Level 117mg/dL Calcium Level 9.1mg/dL Phosphorus Level 4.9mg/dL Magnesium Level 1.9mg/dL Albumin 3.4g/dL PE: GEN: NAD, dialyzing LUNGS: nasal cannula HEART: S1S2, dressing dry +drain ABD: BS+ soft NEURO/PSYCH: A & O 3, upset A/P: S/p CABG, chest pain Recurrent pancreatitis -lipase WNL prior to CABG GERD, h/o PUD -on PPI, H2 beryl, Tums -- Significant pain and anxiety today. CTS to see re: pain, remove drain. Will recheck lipase. TOMMY SALVADOR Feb 07, 2017 12:31
[2017-02-07] MEDS: PAROXETINE 20 MG TABLET. PO SCH (13:00)
[2017-02-07] MEDS ORDERED: MORPHINE SULFATE 2 MG/ML DISP.SYRIN. IV PRN (13:15)
--- NOTE | 2017-02-07 13:45 | PDOC ---
PROGRESS NOTES Subjective Subjective Pt in chair. Improving, but still c/o chest pain. Objective Objective Vital Signs Date Time Temp Pulse Resp B/P Pulse Ox O2 Delivery O2 Flow Rate FiO2 02/07/17 07:00 70 22 112/54 94 Nasal Cannula 4.0 02/06/17 23:59 97.9 97.9 Intake and Output 02/07/17 07:00 Intake Total 1680 ml Output Total 150 ml Balance 1530 ml Intake Oral 1135 ml IV Total 545 ml Chest Tube Drainage Total 75 ml Drainage Total 75 ml # Voids 1 Physical Exam Physical Exam No changes in cardiac exam Clean, dry, intact wound dressing + pericardial/pleural rub Assessment Assessment S/P CABGS Problems Medical Problems: (1) Flank pain Status: Acute (2) Pancreatitis Status: Acute (3) Unstable angina pectoris Status: Acute Plan Plan of Care POD #2 s/p [id number] Extubated 02/06/17 Agree with current plan PT/OT as tolerated Cont cardiac monitoring per floor protocol Comment Review of Relevant I have reviewed the following items dionte (where applicable) has been applied. Labs Laboratory Tests Test 02/05/17 14:15 02/05/17 14:20 02/05/17 17:00 02/05/17 17:30 O2 Saturation 88% (92-99) Arterial Blood pH 7.39 (7.35-7.45) Arterial Blood pCO2 at Patient Temp 34mmHg (35-46) Arterial Blood pO2 at Patient Temp 57mmHg (65-108) Arterial Blood HCO3 20mmol/L (21-28) Arterial Blood Base Excess -4mmol/L (-3-3) FiO2 40 White Blood Count 6.2x10^3/uL (4.0-11.0) 9.8x10^3/uL (4.0-11.0) Red Blood Count 2.84x10^6/uL (4.30-5.70) 2.71x10^6/uL (4.30-5.70) Hemoglobin 8.7g/dL (13.0-17.5) 8.1g/dL (13.0-17.5) Hematocrit 26.0% (39.0-53.0) 25.0% (39.0-53.0) Mean Corpuscular Volume 92fL (79-100) 92fL (79-100) Mean Corpuscular Hemoglobin 31pg (25-35) 30pg (25-35) Mean Corpuscular Hemoglobin Concent 33g/dL (31-37) 33g/dL (31-37) Red Cell Distribution Width 14.8% (11.5-14.5) 15.0% (11.5-14.5) Platelet Count 135x10^3/uL (140-400) 141x10^3/uL (140-400) Prothrombin Time 14.9SEC (11.7-14.0) Prothromb Time International Ratio 1.2 (0.8-1.1) Sodium Level 137mmol/L (136-145) Potassium Level 4.8mmol/L (3.5-5.1) 5.5mmol/L (3.5-5.1) Chloride Level 100mmol/L (98-107) Carbon Dioxide Level 22mmol/L (21-32) Anion Gap 15 (6-14) Blood Urea Nitrogen 22mg/dL (8-26) Creatinine 6.8mg/dL (0.7-1.3) Estimated GFR (Cockcroft-Gault) 8.3 Glucose Level 136mg/dL (70-99) Glucose (Fingerstick) 127mg/dL (70-99) 104mg/dL (70-99) Calcium Level 9.8mg/dL (8.5-10.1) Magnesium Level 2.1mg/dL (1.8-2.4) Test 02/05/17 19:02 02/05/17 20:13 02/05/17 21:58 02/06/17 00:11 Glucose (Fingerstick) 132mg/dL (70-99) 122mg/dL (70-99) 129mg/dL (70-99) 138mg/dL (70-99) Test 02/06/17 02:11 02/06/17 04:22 02/06/17 05:35 02/06/17 05:45 Glucose (Fingerstick) 130mg/dL (70-99) 132mg/dL (70-99) Potassium Level 6.8mmol/L (3.5-5.1) 7.0mmol/L (3.5-5.1) White Blood Count 14.5x10^3/uL (4.0-11.0) Red Blood Count 2.71x10^6/uL (4.30-5.70) Hemoglobin 8.1g/dL (13.0-17.5) Hematocrit 25.3% (39.0-53.0) Mean Corpuscular Volume 94fL (79-100) Mean Corpuscular Hemoglobin 30pg (25-35) Mean Corpuscular Hemoglobin Concent 32g/dL (31-37) Red Cell Distribution Width 15.0% (11.5-14.5) Platelet Count 157x10^3/uL (140-400) Sodium Level 135mmol/L (136-145) Chloride Level 98mmol/L (98-107) Carbon Dioxide Level 17mmol/L (21-32) Anion Gap 20 (6-14) Blood Urea Nitrogen 30mg/dL (8-26) Creatinine 8.3mg/dL (0.7-1.3) Estimated GFR (Cockcroft-Gault) 6.6 Glucose Level 142mg/dL (70-99) Calcium Level 9.2mg/dL (8.5-10.1) Phosphorus Level 6.5mg/dL (2.6-4.7) Magnesium Level 2.3mg/dL (1.8-2.4) Creatine Kinase 669U/L (39-308) Albumin 3.5g/dL (3.4-5.0) Test 02/06/17 05:46 02/06/17 08:48 02/06/17 11:07 02/06/17 12:45 Glucose (Fingerstick) 127mg/dL (70-99) 150mg/dL (70-99) 125mg/dL (70-99) Potassium Level 3.7mmol/L (3.5-5.1) Test 02/06/17 17:22 02/06/17 22:17 02/07/17 05:35 Glucose (Fingerstick) 115mg/dL (70-99) 121mg/dL (70-99) White Blood Count 9.1x10^3/uL (4.0-11.0) Red Blood Count 2.54x10^6/uL (4.30-5.70) Hemoglobin 7.7g/dL (13.0-17.5) Hematocrit 23.5% (39.0-53.0) Mean Corpuscular Volume 93fL (79-100) Mean Corpuscular Hemoglobin 30pg (25-35) Mean Corpuscular Hemoglobin Concent 33g/dL (31-37) Red Cell Distribution Width 14.9% (11.5-14.5) Platelet Count 136x10^3/uL (140-400) Sodium Level 141mmol/L (136-145) Potassium Level 4.0mmol/L (3.5-5.1) Chloride Level 97mmol/L (98-107) Carbon Dioxide Level 31mmol/L (21-32) Anion Gap 13 (6-14) Blood Urea Nitrogen 22mg/dL (8-26) Creatinine 6.0mg/dL (0.7-1.3) Estimated GFR (Cockcroft-Gault) 9.6 Glucose Level 117mg/dL (70-99) Calcium Level 9.1mg/dL (8.5-10.1) Phosphorus Level 4.9mg/dL (2.6-4.7) Magnesium Level 1.9mg/dL (1.8-2.4) Albumin 3.4g/dL (3.4-5.0) Lipase 178U/L (73-393) Laboratory Tests Test 02/06/17 17:22 02/06/17 22:17 02/07/17 05:35 Glucose (Fingerstick) 115mg/dL (70-99) 121mg/dL (70-99) White Blood Count 9.1x10^3/uL (4.0-11.0) Red Blood Count 2.54x10^6/uL (4.30-5.70) Hemoglobin 7.7g/dL (13.0-17.5) Hematocrit 23.5% (39.0-53.0) Mean Corpuscular Volume 93fL (79-100) Mean Corpuscular Hemoglobin 30pg (25-35) Mean Corpuscular Hemoglobin Concent 33g/dL (31-37) Red Cell Distribution Width 14.9% (11.5-14.5) Platelet Count 136x10^3/uL (140-400) Sodium Level 141mmol/L (136-145) Potassium Level 4.0mmol/L (3.5-5.1) Chloride Level 97mmol/L (98-107) Carbon Dioxide Level 31mmol/L (21-32) Anion Gap 13 (6-14) Blood Urea Nitrogen 22mg/dL (8-26) Creatinine 6.0mg/dL (0.7-1.3) Estimated GFR (Cockcroft-Gault) 9.6 Glucose Level 117mg/dL (70-99) Calcium Level 9.1mg/dL (8.5-10.1) Phosphorus Level 4.9mg/dL (2.6-4.7) Magnesium Level 1.9mg/dL (1.8-2.4) Albumin 3.4g/dL (3.4-5.0) Lipase 178U/L (73-393) Microbiology 02/03/17 Throat Culture - Final, Complete 02/03/17 - Final, Complete Medications Current Medications Hydromorphone HCl (Dilaudid) 1 mg 1X ONCE IV Last administered on 01/28/17 23 :57; Start 01/28/17 at 23:30; Stop 01/28/17 at 23:31; Status DC Ondansetron HCl 4 mg 4 mg 1X ONCE IV Last administered on 01/28/17 23:57; Start 01/28/17 at 23:30; Stop 01/28/17 at 23:31; Status DC Sodium Chloride (Iv Sodium Chloride 0.9% 500ml Bag) 500 ml @ 0 mls/hr 1X ONCE IV Last administered on 01/28/17 23:39; Start 01/28/17 at 23:30; Stop at 23:31; Status DC Diphenhydramine HCl (Benadryl) 50 mg 1X ONCE IVP Last administered on 00:29; Start 01/29/17 at 00:30; Stop 01/29/17 at 00:31; Status DC Diphenhydramine HCl (Benadryl) 50 mg STK-MED ONCE .ROUTE ; Start 01/29/17 at 00: 26; Stop 01/29/17 at 00:27; Status DC Morphine Sulfate 4 mg 1X ONCE IV Last administered on 01/29/17 03:55; Start 01/29/17 at 02:15; Stop 01/29/17 at 02:16; Status DC Ondansetron HCl (Zofran) 4 mg PRN Q8HRS PRN IV NAUSEA/VOMITING; Start 01/29/17 at 03:00; Stop 01/30/17 at 02:59; Status DC Morphine Sulfate 4 mg 4 mg PRN Q2HR PRN IV PAIN Last administered on 01/29/17 09:59; Start 01/29/17 at 03:00; Stop 01/29/17 at 11:47; Status DC Sodium Chloride (Iv Sodium Chloride 0.9% 1000ml Bag) 1,000 ml @ 50 mls/hr Q20H IV Last administered on 01/30/17 07:28; Start 01/29/17 at 02:12; Stop at 02:11; Status DC Alprazolam (Xanax) 0.5 mg PRN Q6HRS PRN PO ANXIETY / AGITATION Last administered on 02/03/17 07:45; Start 01/29/17 at 11:30; Stop 02/03/17 at 12:13 ; Status DC Amlodipine Besylate (Norvasc) 10 mg BID PO Last administered on 02/04/17 20:55 ; Start 01/29/17 at 12:00; Stop 02/06/17 at 17:20; Status DC Aspirin (Children'S Aspirin) 324 mg DAILY PO ; Start 01/29/17 at 12:00; Stop at 18:32; Status DC Calcium Carbonate/ Glycine (Tums) 800 mg TIDAC PO Last administered on 16:11; Start 01/29/17 at 11:30 Clonidine HCl (Catapres) 0.3 mg DAILY PO Last administered on 02/04/17 14:59; Start 01/30/17 at 09:00; Stop 02/06/17 at 08:54; Status DC Clopidogrel Bisulfate (Plavix) 75 mg DAILY PO ; Start 01/29/17 at 12:00; Stop at 09:45; Status DC Vitamin B Complex/ Vitamin C (Nephro-Chilo) 1 tab DAILY PO Last administered on 02/06/17 08:13; Start 01/29/17 at 12:00 Furosemide (Lasix) 80 mg [id number] PO Last administered on 02/04/17 15:11; Start 01/29/17 at 14:00; Stop 02/06/17 at 08:54; Status DC Acetaminophen/ Hydrocodone Bitart (Lortab 5/325) 1 tab PRN Q6HRS PRN PO PAIN; Start 01/29/17 at 11:30; Stop 01/29/17 at 18:58; Status DC Isosorbide Mononitrate (Imdur) 30 mg DAILY PO Last administered on 02/04/17 15 :01; Start 01/29/17 at 12:00; Stop 02/06/17 at 08:54; Status DC Paroxetine HCl (Paxil) 40 mg DAILY PO Last administered on 02/06/17 09:31; Start 01/29/17 at 12:00 Tamsulosin HCl (Flomax) 0.4 mg QHS PO Last administered on 02/06/17 21:02; Start 01/29/17 at 21:00 Hydralazine HCl (Apresoline) 100 mg TID PO Last administered on 02/04/17 20:54 ; Start 01/29/17 at 14:00; Stop 02/06/17 at 17:16; Status DC Losartan Potassium (Cozaar) 100 mg QHS PO Last administered on 02/04/17 20:56 ; Start 01/29/17 at 21:00; Stop 02/06/17 at 17:16; Status DC Metoprolol Tartrate (Lopressor) 100 mg BID PO Last administered on 02/05/17 06 :34; Start 01/29/17 at 12:00; Stop 02/05/17 at 13:28; Status DC Pantoprazole Sodium (Protonix) 40 mg DAILYAC PO Last administered on 02/06/17 12:32; Start 01/29/17 at 12:00 Darbepoetin Percy (Aranesp) 60 mcg [id number] SQ Last administered on 02/02/17 21 :15; Start 02/02/17 at 21:00 Morphine Sulfate 6 mg 6 mg PRN Q2HR PRN IV PAIN Last administered on 01/30/17 19:22; Start 01/29/17 at 11:45; Stop 02/01/17 at 15:20; Status DC Sodium Chloride (Iv Sodium Chloride 0.9% 1000ml Bag) 1,000 ml @ 1,000 mls/hr Q1H PRN IV hypotension; Start 01/29/17 at 12:55; Stop 01/29/17 at 18:54; Status DC Diphenhydramine HCl (Benadryl) 25 mg 1X PRN PRN IV ITCHING Last administered on 01/29/17 19:12; Start 01/29/17 at 13:00; Stop 01/30/17 at 12:59; Status DC Diphenhydramine HCl (Benadryl) 25 mg 1X PRN PRN IV ITCHING Last administered on 01/29/17 13:16; Start 01/29/17 at 13:00; Stop 01/30/17 at 12:59; Status DC Info (PHARMACY MONITORING -- do not chart) 1 each PRN DAILY PRN MC SEE COMMENTS ; Start 01/29/17 at 13:00; Status UNV Info (PHARMACY MONITORING -- do not chart) 1 each PRN DAILY PRN MC SEE COMMENTS ; Start 01/29/17 at 13:00; Stop 02/03/17 at 09:04; Status DC Nitroglycerin (Nitrostat) 0.4 mg STK-MED ONCE SL ; Start 01/29/17 at 16:55; Stop 01/29/17 at 16:56; Status DC Heparin Sodium (Porcine) 4000 unit 4,000 unit 1X ONCE IV Last administered on 01/29/17 17:37; Start 01/29/17 at 17:30; Stop 01/29/17 at 17:31; Status DC Heparin Sodium/ Sodium Chloride 500 ml @ As Directed STK-MED ONCE .ROUTE ; Start 01/29/17 at 17:54; Stop 01/29/17 at 17:55; Status DC Lidocaine HCl 20 ml STK-MED ONCE .ROUTE ; Start 01/29/17 at 17:54; Stop at 17:55; Status DC Iodixanol (Visipaque 320) 100 ml STK-MED ONCE .ROUTE ; Start 01/29/17 at 17:54; Stop 01/29/17 at 17:55; Status DC Metoprolol Tartrate (Lopressor) 5 mg STK-MED ONCE .ROUTE ; Start 01/29/17 at 18: 05; Stop 01/29/17 at 18:06; Status DC Fentanyl Citrate (Fentanyl 2ml Vial) 100 mcg STK-MED ONCE .ROUTE ; Start at 18:05; Stop 01/29/17 at 18:06; Status DC Midazolam HCl 2 mg 2 mg STK-MED ONCE .ROUTE ; Start 01/29/17 at 18:05; Stop at 18:06; Status DC Heparin Sodium/ Dextrose 500 ml @ As Directed STK-MED ONCE IV ; Start 01/29/17 at 18:18; Stop 01/29/17 at 18:19; Status DC Heparin Sodium (Porcine) 10,000 unit STK-MED ONCE .ROUTE ; Start 01/29/17 at 18: 18; Stop 01/29/17 at 18:19; Status DC Metoprolol Tartrate (Lopressor) 5 mg STK-MED ONCE .ROUTE ; Start 01/29/17 at 18: 25; Stop 01/29/17 at 18:26; Status DC Heparin Sodium/ Sodium Chloride 1,000 unit 1X ONCE IART Last administered on 18:51; Start 01/29/17 at 18:45; Stop 01/29/17 at 18:53; Status DC Heparin Sodium/ Sodium Chloride 1,000 unit 1X ONCE IART Last administered on 18:51; Start 01/29/17 at 18:45; Stop 01/29/17 at 18:53; Status DC Midazolam HCl (Versed) 1 mg 1X ONCE IV Last administered on 01/29/17 18:53; Start 01/29/17 at 18:45; Stop 01/29/17 at 18:53; Status DC Fentanyl Citrate (Fentanyl 2ml Vial) 50 mcg 1X ONCE IV Last administered on 18:53; Start 01/29/17 at 18:45; Stop 01/29/17 at 18:53; Status DC Iodixanol (Visipaque 320) 105 ml 1X ONCE IART Last administered on 01/29/17 18:52; Start 01/29/17 at 18:45; Stop 01/29/17 at 18:53; Status DC Heparin Sodium (Porcine) 4000 unit 4,000 unit 1X ONCE IV Last administered on 01/29/17 18:53; Start 01/29/17 at 18:45; Stop 01/29/17 at 18:53; Status DC Heparin Sodium/ Dextrose 500 ml @ 20 mls/hr CONT PRN IV SEE I/O RECORD; Start 01/29/17 at 18:24; Stop 01/30/17 at 14:01; Status DC Metoprolol Tartrate (Lopressor) 10 mg 1X ONCE IVP Last administered on 18:52; Start 01/29/17 at 18:45; Stop 01/29/17 at 18:53; Status DC Lidocaine HCl 10 ml 1X ONCE IJ Last administered on 01/29/17 18:52; Start at 18:45; Stop 01/29/17 at 18:53; Status DC Sodium Chloride (Normal Saline Flush) 3 ml QSHIFT PRN IV AFTER MEDS AND BLOOD DRAWS; Start 01/29/17 at 18:45 Docusate Sodium (Colace) 100 mg BID PO Last administered on 02/06/17 21:02; Start 01/29/17 at 21:00; Stop 02/07/17 at 13:21; Status DC Fentanyl Citrate (Fentanyl 2ml Vial) 50 mcg PRN Q1HR PRN IV SEVERE PAIN Last administered on 02/05/17 22:00; Start 01/29/17 at 18:45; Stop 02/06/17 at 10:21 ; Status DC Cyclobenzaprine HCl (Flexeril) 10 mg PRN TID PRN PO MUSCLE SPASMS Last administered on 01/30/17 05:22; Start 01/29/17 at 18:45 Ondansetron HCl (Zofran) 4 mg PRN Q6HRS PRN IV NAUSEA/VOMITING; Start 01/29/17 at 18:45; Stop 02/05/17 at 13:28; Status DC Nitroglycerin (Nitrostat) 0.4 mg PRN Q5MIN PRN SL CHEST PAIN; Start 01/29/17 at 18:45 Acetaminophen/ Hydrocodone Bitart (Lortab 5/325) 1 tab PRN Q4HRS PRN PO MILD PAIN Last administered on 02/04/17 17:16; Start 01/29/17 at 18:45; Stop at 10:21; Status DC Diltiazem HCl 5 mg 5 mg 1X ONCE IVP Last administered on 01/29/17 19:23; Start 01/29/17 at 19:15; Stop 01/29/17 at 19:18; Status DC Diltiazem HCl/ Dextrose (Cardizem) 125 ml @ 0 mls/hr CONT PRN IV SEE I/O RECORD ; Start 01/29/17 at 19:15; Stop 02/03/17 at 12:13; Status DC Diphenhydramine HCl (Benadryl) 50 mg PRN Q8HRS PRN IVP ITCHING Last administered on 02/02/17 09:41; Start 01/29/17 at 19:15; Stop 02/03/17 at 09:05 ; Status DC Nitroglycerin (Nitrostat) 0.4 mg STK-MED ONCE SL ; Start 01/29/17 at 17:00; Stop 01/30/17 at 08:02; Status DC Info (Anti-Coagulation Monitoring By Pharmacy) 1 each PRN DAILY PRN MC SEE COMMENTS Last administered on 02/04/17 09:51; Start 01/30/17 at 10:45; Stop at 18:43; Status DC Heparin Sodium (Porcine) 3000 unit 3,000 unit 1X ONCE IV Last administered on 01/30/17 17:36; Start 01/30/17 at 18:00; Stop 01/30/17 at 18:01; Status DC Heparin Sodium/ Dextrose 500 ml @ 24 mls/hr CONT PRN IV SEE I/O RECORD Last administered on 02/03/17 05:47; Start 01/30/17 at 18:00; Stop 02/04/17 at 18:41 ; Status DC Sodium Chloride (Iv Sodium Chloride 0.9% 1000ml Bag) 1,000 ml @ 50 mls/hr Q20H IV Last administered on 01/31/17 23:30; Start 01/31/17 at 02:45; Stop at 12:13; Status DC Dextrose 25 gm 1X ONCE IV Last administered on 01/31/17 06:05; Start at 06:30; Stop 01/31/17 at 06:31; Status DC Insulin Human Regular (Novolin R Vial) 10 unit 1X ONCE IV Last administered on 01/31/17 06:09; Start 01/31/17 at 06:30; Stop 01/31/17 at 06:31; Status DC Dextrose 25 gm 25 gm 1X ONCE IV Last administered on 01/31/17 09:04; Start at 09:00; Stop 01/31/17 at 09:03; Status DC Sodium Chloride 1,000 ml @ 1,000 mls/hr Q1H PRN IV hypotension; Start 01/31/17 at 09:28; Stop 01/31/17 at 15:27; Status DC Albumin Human (Albuminar) 200 ml @ 200 mls/hr 1X PRN PRN IV Hypotension; Start 01/31/17 at 09:30; Stop 01/31/17 at 15:29; Status DC Acetaminophen (Tylenol) 500 mg 1X PRN PRN PO MILD PAIN / TEMP; Start 01/31/17 at 09:30; Stop 02/01/17 at 09:29; Status DC Diphenhydramine HCl (Benadryl) 25 mg 1X PRN PRN IV ITCHING Last administered on 01/31/17 18:05; Start 01/31/17 at 09:30; Stop 02/01/17 at 09:29; Status DC Diphenhydramine HCl (Benadryl) 25 mg 1X PRN PRN IV ITCHING; Start 01/31/17 at 09:30; Stop 02/01/17 at 09:29; Status DC Info (PHARMACY MONITORING -- do not chart) 1 each PRN DAILY PRN MC SEE COMMENTS ; Start 01/31/17 at 09:30; Status UNV Diphenhydramine HCl (Benadryl) 50 mg PRN Q6HRS PRN IVP ITCHING Last administered on 02/07/17 10:24; Start 02/01/17 at 15:15 Fentanyl Citrate (Fentanyl 2ml Vial) 25 mcg PRN Q4HRS PRN IV MODERATE PAIN; Start 02/01/17 at 15:15; Stop 02/06/17 at 10:21; Status DC Diphenhydramine HCl (Benadryl) 25 mg 1X PRN PRN IV ITCHING; Start 02/02/17 at 09:30; Stop 02/03/17 at 09:29; Status DC Info (PHARMACY MONITORING -- do not chart) 1 each PRN DAILY PRN MC SEE COMMENTS ; Start 02/02/17 at 09:30; Stop 02/03/17 at 09:05; Status DC Info (PHARMACY MONITORING -- do not chart) 1 each PRN DAILY PRN MC SEE COMMENTS ; Start 02/02/17 at 09:30; Status Cancel Throat Lozenges (Cepacol Sore Throat Lozenge) 1 estelita PRN Q2HRS PRN PO SORE THROAT Last administered on 02/03/17 20:49; Start 02/03/17 at 07:15; Stop 02/05 at 13:28; Status DC Alprazolam (Xanax) 0.25 mg PRN Q6HRS PRN PO ANXIETY / AGITATION, 1ST CHOIC Last administered on 02/03/17 14:15; Start 02/03/17 at 12:15; Stop 02/06/17 at 10:21; Status DC Alprazolam 0.5 mg 0.5 mg PRN Q6HRS PRN PO ANXIETY / AGITATION, 2ND CHOIC Last administered on 02/06/17 08:13; Start 02/03/17 at 12:30; Stop 02/06/17 at 10:21 ; Status DC Vancomycin HCl 250 ml @ 250 mls/hr 1X PREOP ONCE IV Last administered on 02/05 08:33; Start 02/05/17 at 06:00; Stop 02/05/17 at 06:59; Status DC Ondansetron HCl (Zofran) 4 mg PRN Q6HRS PRN IV Nausea; Start 02/05/17 at 07:00 ; Stop 02/05/17 at 13:28; Status DC Fentanyl Citrate (Fentanyl 2ml Vial) 25 mcg PRN Q5MIN PRN IV MILD PAIN; Start 02/05/17 at 07:00; Stop 02/05/17 at 22:13; Status DC Fentanyl Citrate (Fentanyl 2ml Vial) 50 mcg PRN Q5MIN PRN IV MODERATE PAIN; Start 02/05/17 at 07:00; Stop 02/05/17 at 22:13; Status DC Morphine Sulfate 1 mg 1 mg PRN Q10MIN PRN IV SEVERE PAIN Last administered on 19:01; Start 02/05/17 at 07:00; Stop 02/06/17 at 06:59; Status DC Lactated Ringer's (Iv Lactated Ringers) 1,000 ml @ 0 mls/hr Q0M IV Last administered on 02/05/17 07:32; Start 02/05/17 at 07:00; Stop 02/05/17 at 13:28 ; Status DC Lidocaine HCl 2 ml 1X PRN PRN ID IV START; Start 02/05/17 at 07:00; Stop at 06:59; Status DC Hydromorphone HCl (Dilaudid) 0.5 mg PRN Q10MIN PRN IV SEVERE PAIN, Second choice; Start 02/05/17 at 07:00; Stop 02/06/17 at 06:59; Status DC Prochlorperazine Edisylate 5 mg 5 mg PACU PRN PRN IV NAUSEA; Start 02/05/17 at 07:00; Stop 02/06/17 at 06:59; Status DC Sodium Chloride (Iv Sodium Chloride 0.9% 1000ml Bag) 1,000 ml @ 1,000 mls/hr Q1H PRN IV hypotension; Start 02/04/17 at 09:55; Stop 02/04/17 at 15:54; Status DC Info (PHARMACY MONITORING -- do not chart) 1 each PRN DAILY PRN MC SEE COMMENTS ; Start 02/04/17 at 10:00 Throat Lozenges 1 estelita 1 estelita PRN Q2HRS PRN PO SORE THROAT; Start 02/04/17 at 11: 00 Magnesium Sulfate/ Dextrose 50 ml @ 25 mls/hr PRN DAILY PRN IV for Mag < 1.7 on am labs; Start 02/04/17 at 11:30; Stop 02/05/17 at 13:28; Status DC Potassium Chloride 70 meq/ Sodium Bicarbonate 12.5 meq/Lidocaine HCl 24 ml/ Parenteral Electrolytes 571.5 ml @ 571.5 mls/ hr 1X PERIOP ONCE IRR Last administered on 02/05/17 09:42; Start 02/05/17 at 06:00; Stop 02/05/17 at 06:59 ; Status DC Potassium Chloride 15 meq/ Sodium Bicarbonate 12.5 meq/Parenteral Electrolytes 520 ml @ 520 mls/hr 1X PERIOP ONCE IRR Last administered on 02/05/17 09:42; Start 02/05/17 at 06:00; Stop 02/05/17 at 06:59; Status DC Heparin Sodium (Porcine)/ Lactated Ringer's (Iv Lactated Ringers) 1,020 ml @ 1, 020 mls/hr 1X PERIOP ONCE IRR Last administered on 02/05/17t 08:42; Start at 06:00; Stop 02/05/17 at 06:59; Status DC Aminocaproic Acid (Amicar) 5,000 mg STK-MED ONCE IV ; Start 02/05/17 at 06:13; Stop 02/05/17 at 06:14; Status DC Etomidate (Amidate) 20 mg STK-MED ONCE IV ; Start 02/05/17 at 06:13; Stop at 06:14; Status DC Lidocaine HCl 100 mg STK-MED ONCE .ROUTE ; Start 02/05/17 at 06:13; Stop at 06:14; Status DC Rocuronium [place] (Zemuron) 100 mg STK-MED ONCE .ROUTE ; Start 02/05/17 at 06: 14; Stop 02/05/17 at 06:15; Status DC Ephedrine Sulfate 50 mg STK-MED ONCE IV ; Start 02/05/17 at 06:14; Stop at 06:15; Status DC Phenylephrine HCl (Alexis-Synephrine Inj) 10 mg STK-MED ONCE .ROUTE ; Start at 06:14; Stop 02/05/17 at 06:15; Status DC Sufentanil Citrate (Sufenta) 100 mcg STK-MED ONCE .ROUTE ; Start 02/05/17 at 06: 14; Stop 02/05/17 at 06:15; Status DC Midazolam HCl (Versed) 2 mg STK-MED ONCE .ROUTE ; Start 02/05/17 at 06:14; Stop 02/05/17 at 06:15; Status DC Fentanyl Citrate 100 mcg 100 mcg STK-MED ONCE .ROUTE ; Start 02/05/17 at 06:15; Stop 02/05/17 at 06:16; Status DC Nitroglycerin/ Dextrose (Nitroglycerin Drip) 250 ml @ As Directed STK-MED ONCE IV ; Start 02/05/17 at 06:15; Stop 02/05/17 at 06:16; Status DC Heparin Sodium (Porcine) 30,000 unit STK-MED ONCE .ROUTE ; Start 02/05/17 at 06: 16; Stop 02/05/17 at 06:17; Status DC Cellulose 1 each STK-MED ONCE .ROUTE Last administered on 02/05/17 08:42; Start 02/05/17 at 06:42; Stop 02/05/17 at 06:43; Status DC Papaverine HCl 60 mg STK-MED ONCE .ROUTE Last administered on 02/05/17 08:42; Start 02/05/17 at 06:42; Stop 02/05/17 at 06:43; Status DC Aspirin (Aspirin) 300 mg STK-MED ONCE .ROUTE Last administered on 02/05/17 12: 58; Start 02/05/17 at 06:42; Stop 02/05/17 at 06:43; Status DC Mineral Oil (Muri-Lube) 10 ml STK-MED ONCE MC Last administered on 02/05/17 12 :10; Start 02/05/17 at 06:43; Stop 02/05/17 at 06:44; Status DC Sodium Chloride 50 ml 50 ml STK-MED ONCE IJ Last administered on 02/05/17 08: 42; Start 02/05/17 at 06:43; Stop 02/05/17 at 06:44; Status DC Mannitol (Mannitol Iv Soln) 500 ml @ 0 mls/hr 1X ONCE IV ; Start 02/05/17 at 07 :15; Stop 02/05/17 at 07:16; Status DC Sufentanil Citrate (Sufenta) 100 mcg STK-MED ONCE .ROUTE ; Start 02/05/17 at 08: 01; Stop 02/05/17 at 08:02; Status DC Midazolam HCl (Versed) 5 mg STK-MED ONCE .ROUTE ; Start 02/05/17 at 09:10; Stop 02/05/17 at 09:11; Status DC Heparin Sodium (Porcine) 10,000 unit STK-MED ONCE .ROUTE ; Start 02/05/17 at 09: 15; Stop 02/05/17 at 09:16; Status DC Rocuronium [place] (Zemuron) 100 mg STK-MED ONCE .ROUTE ; Start 02/05/17 at 09: 43; Stop 02/05/17 at 09:44; Status DC Heparin Sodium (Porcine) 10,000 unit STK-MED ONCE .ROUTE ; Start 02/05/17 at 10: 57; Stop 02/05/17 at 10:58; Status DC Protamine Sulfate 250 mg STK-MED ONCE IV ; Start 02/05/17 at 11:08; Stop at 11:09; Status DC Protamine Sulfate 50 mg STK-MED ONCE IV ; Start 02/05/17 at 11:09; Stop at 11:10; Status DC Protamine Sulfate 50 mg STK-MED ONCE IV ; Start 02/05/17 at 11:09; Stop at 11:10; Status DC Protamine Sulfate 50 mg STK-MED ONCE IV ; Start 02/05/17 at 11:09; Stop at 11:10; Status DC Isoflurane (Isoflurane) 90 ml STK-MED ONCE IH ; Start 02/05/17 at 11:34; Stop at 11:35; Status DC Heparin Sodium (Porcine) 10,000 unit STK-MED ONCE .ROUTE ; Start 02/05/17 at 12: 59; Stop 02/05/17 at 13:00; Status DC Lidocaine HCl (Xylocaine-Mpf 1% Vial) 5 ml STK-MED ONCE .ROUTE ; Start 02/05/17 at 12:59; Stop 02/05/17 at 13:00; Status DC Aminocaproic Acid (Amicar) 5,000 mg STK-MED ONCE IV ; Start 02/05/17 at 12:59; Stop 02/05/17 at 13:00; Status DC Magnesium Sulfate 5 gm STK-MED ONCE .ROUTE ; Start 02/05/17 at 12:59; Stop 02/05 at 13:00; Status DC Calcium Chloride 1000 mg 1,000 mg STK-MED ONCE IV ; Start 02/05/17 at 12:59; Stop 02/05/17 at 13:00; Status DC Albumin Human (Albuminar) 200 ml @ As Directed STK-MED ONCE IV ; Start at 12:59; Stop 02/05/17 at 13:00; Status DC Heparin Sodium (Porcine) 59878 unit 30,000 unit STK-MED ONCE .ROUTE ; Start at 12:59; Stop 02/05/17 at 13:00; Status DC Lactated Ringer's 1,000 ml @ 30 mls/hr Q24H IV Last administered on 02/06/17 12:37; Start 02/05/17 at 13:15 Albumin Human 250 ml @ 60 mls/hr PRN Q4HRS PRN IV SEE I/O RECORD Last administered on 02/05/17 17:20; Start 02/05/17 at 13:15; Stop 02/06/17 at 16:09 ; Status DC Vancomycin HCl 1.5 gm/Sodium Chloride 500 ml @ 250 mls/hr Q12H IV ; Start 02/05 at 13:30; Stop 02/06/17 at 15:29; Status UNV Insulin Human Regular/Sodium Chloride (Novolin R Vial/ Iv Normal Saline 150ml) 151.5 ml @ 0 mls/hr CONT PRN PRN IV SEE I/O RECORD; Start 02/05/17 at 13:15 Dextrose 25 gm 25 gm PRN Q15MIN PRN IV LOW BLOOD SUGAR; Start 02/05/17 at 13:15 Nitroglycerin/ Dextrose 250 ml @ 0 mls/hr CONT PRN PRN IV SEE I/O RECORD; Start 02/05/17 at 13:15 Amiodarone HCl 900 mg/Dextrose 518 ml @ 33.33 mls/ hr CONT PRN PRN IV RUNS OF VT; Start 02/05/17 at 13:15 Amiodarone HCl 150 mg/Dextrose 103 ml @ 200 mls/hr 1X PRN PRN IV VT; Start at 13:15 Magnesium Sulfate/ Dextrose (Magnesium Sulfate PREMIX 1GM) 100 ml @ 100 mls/hr PRN DAILY PRN IV FOR MAG < 2.2; Start 02/05/17 at 13:15 Famotidine (Pepcid) 20 mg Q48H IVP Last administered on 02/05/17 20:37; Start 02/05/17 at 21:00; Stop 02/06/17 at 15:11; Status DC Ondansetron HCl (Zofran) 4 mg PRN Q4HRS PRN IV NAUSEA/VOMITING Last administered on 02/05/17 20:02; Start 02/05/17 at 13:15 Morphine Sulfate 2 mg PRN Q1HR PRN IV PAIN Last administered on 02/07/17 01:32 ; Start 02/05/17 at 13:15; Stop 02/07/17 at 08:19; Status DC Acetaminophen (Tylenol) 650 mg PRN Q4HRS PRN PO MILD PAIN / TEMP; Start at 13:15 Acetaminophen (Tylenol) 650 mg PRN Q4HRS PRN SC MILD PAIN / TEMP; Start at 13:15 Meperidine HCl 12.5 mg 12.5 mg PRN Q15MIN PRN IV SHIVERING; Start 02/05/17 at 13:15; Stop 02/06/17 at 10:21; Status DC Propofol (Diprivan) 100 ml @ 0 mls/hr CONT PRN PRN IV POSTOP SEDATION UNTIL EXTUBATE Last administered on 02/05/17 17:23; Start 02/05/17 at 13:15; Stop at 22:13; Status DC Senna/Docusate Sodium (Senna Plus) 1 tab BID PO Last administered on 02/06/17 21:02; Start 02/05/17 at 21:00 Bisacodyl (Dulcolax Supp) 10 mg PRN DAILY PRN SC NO BOWEL MOVEMENT; Start 02/05 at 13:15 Chlorhexidine Gluconate (Peridex) 15 ml BID MM Last administered on 02/05/17 20:37; Start 02/05/17 at 21:00; Stop 02/05/17 at 22:13; Status DC Aspirin (Ecotrin) 325 mg DAILYWBKFT PO Last administered on 02/06/17 08:14; Start 02/06/17 at 08:00 Aspirin (Aspirin) 300 mg PRN DAILY PRN SC IF UNABLE TO TAKE PO; Start 02/05/17 at 13:15 Albuterol Sulfate (Ventolin Neb Soln) 2.5 mg PRN Q4HRS PRN NEB SHORTNESS OF BREATH Last administered on 02/06/17 00:15; Start 02/05/17 at 13:15 Metoprolol Tartrate 25 mg 25 mg BID PO ; Start 02/06/17 at 09:00; Stop 02/06/17 at 17:16; Status DC Clevidipine (Cleviprex) 100 ml @ 0 mls/hr CONT PRN IV PER PROTOCOL Last administered on 02/05/17 17:25; Start 02/05/17 at 13:15 Oxycodone/ Acetaminophen (Percocet 5/325) 1 tab PRN Q4HRS PRN PO MILD PAIN; Start 02/05/17 at 13:15 Oxycodone/ Acetaminophen (Percocet 5/325) 2 tab PRN Q4HRS PRN PO MODERATE PAIN , SEVERE PAIN Last administered on 02/07/17 05:32; Start 02/05/17 at 13:15 Vecuronium [place] 10 mg 10 mg STK-MED ONCE IV ; Start 02/05/17 at 13:32; Stop 02/05/17 at 13:33; Status DC Vancomycin HCl/ Sodium Chloride (Iv Sodium Chloride 0.9% 100ml) 100 ml @ 100 mls/hr 1X ONCE IV Last administered on 02/06/17 15:00; Start 02/06/17 at 16: 00; Stop 02/06/17 at 16:59; Status DC Dextrose 25 gm 1X ONCE IV ; Start 02/06/17 at 07:30; Stop 02/06/17 at 07:31; Status DC Calcium Chloride 2,000 mg 1X ONCE IV ; Start 02/06/17 at 07:30; Stop 02/06/17 at 07:31; Status DC Insulin Human Regular (Novolin R Vial) 10 unit 1X ONCE IV ; Start 02/06/17 at 07:30; Stop 02/06/17 at 07:31; Status DC Vecuronium [place] 10 mg 10 mg STK-MED ONCE IV ; Start 02/05/17 at 13:30; Stop 02/06/17 at 07:51; Status DC Sodium Chloride 1,000 ml @ 1,000 mls/hr Q1H PRN IV hypotension; Start 02/06/17 at 08:26; Stop 02/06/17 at 14:25; Status DC Albumin Human (Albuminar) 200 ml @ 200 mls/hr 1X PRN PRN IV Hypotension Last administered on 02/06/17 09:30; Start 02/06/17 at 08:30; Stop 02/06/17 at 14:29 ; Status DC Acetaminophen (Tylenol) 500 mg 1X PRN PRN PO MILD PAIN / TEMP; Start 02/06/17 at 08:30; Stop 02/07/17 at 08:29; Status DC Diphenhydramine HCl (Benadryl) 25 mg 1X PRN PRN IV ITCHING; Start 02/06/17 at 08:30; Stop 02/07/17 at 08:29; Status DC Diphenhydramine HCl (Benadryl) 25 mg 1X PRN PRN IV ITCHING; Start 02/06/17 at 08:30; Stop 02/07/17 at 08:29; Status DC Info (PHARMACY MONITORING -- do not chart) 1 each PRN DAILY PRN MC SEE COMMENTS ; Start 02/06/17 at 08:30; Stop 02/06/17 at 15:09; Status DC Clonazepam (Klonopin) 0.5 mg PRN Q6HRS PRN PO ANXIETY / AGITATION; Start at 10:15 Famotidine 20 mg 20 mg Q48H PO ; Start 02/07/17 at 21:00 Albumin Human (Plasmanate) 250 ml @ 60 mls/hr PRN Q4HRS PRN IV SEE I/O RECORD ; Start 02/06/17 at 16:09 Alprazolam (Xanax) 0.5 mg PRN Q8HRS PRN PO ANXIETY / AGITATION Last administered on 02/06/17t 22:27; Start 02/06/17 at 22:15 Docusate Sodium (Colace) 100 mg DAILY PO ; Start 02/07/17 at 09:00 Morphine Sulfate 4 mg PRN Q2HR PRN IV PAIN; Start 02/07/17 at 13:15 Info (PHARMACY MONITORING -- do not chart) 1 each PRN DAILY PRN MC SEE COMMENTS ; Start 02/07/17 at 11:30; Stop 02/07/17 at 11:30; Status DC Ketorolac Tromethamine (Toradol) 15 mg 1X ONCE IV ; Start 02/07/17 at 12:00; Stop 02/07/17 at 12:01; Status DC Active Scripts Active Clopidogrel (Clopidogrel Bisulfate) 75 Mg Tablet 1 Tab PO DAILY Isosorbide Mononitrate Er (Isosorbide Mononitrate) 30 Mg Tab.er.24h 30 Mg PO DAILY Flomax (Tamsulosin Hcl) 0.4 Mg Cap.er.24h 0.4 Mg PO QHS Reported Hydrocodone-Apap 5-325 (Hydrocodone Bit/Acetaminophen) 1 Each Tablet 1 Tab PO PRN Q6HRS PRN Furosemide 80 Mg Tablet 1 Tab PO BID Nephro-Chilo Tablet (Folic Acid/Vitamin B Comp W-C) 0.8 Mg Tablet 1 Tab PO DAILY Paroxetine Hcl 20 Mg Tablet 40 Mg PO DAILY Tums (Calcium Carbonate) 200 Mg Tab.chew 800 Mg PO TIDAC Omeprazole Magnesium 20 Mg Capsule.dr 20 Mg PO DAILY Clonidine Hcl 0.3 Mg Tablet 1 Tab PO DAILY Hydralazine Hcl 100 Mg Tablet 100 Mg PO TID LAST DOSE: 02/24/16 AFTERNOON NEXT DOSE: 02/24/16 BEDTIME Amlodipine Besylate 10 Mg Tablet 10 Mg PO BID LAST DOSE: 02/24/16 AM NEXT DOSE: 02/25/16 AM Xanax (Alprazolam) 0.5 Mg Tablet 0.5 Mg PO Q6HRS PRN LAST DOSE: 02/23/16 BEDTIME NEXT DOSE: 02/24/16 BEDTIME Losartan Potassium 100 Mg Tablet 100 Mg PO HS LAST DOSE: 02/23/16 BEDTIME NEXT DOSE: 02/24/16 BEDTIME Metoprolol Tartrate 100 Mg Tablet 100 Mg PO BID LAST DOSE: 02/24/16 AM NEXT DOSE: 02/24/16 BEDTIME Lillian Chewable (Aspirin) 81 Mg Tab.chew 324 Mg PO DAILY LAST DOSE: 02/24/16 AM NEXT DOSE: 02/25/16 AM Vitals/I & O Vital Sign - Last 24 Hours 02/06/17 02/06/17 02/06/17 02/06/17 14:00 14:55 15:00 16:00 Temp 98.4 98.4 Pulse 80 72 67 Resp 20 18 20 20 B/P 108/52 108/52 107/50 Pulse Ox 96 96 93 93 O2 Delivery Nasal Cannula Nasal Cannula Nasal Cannula Nasal Cannula O2 Flow Rate 5.0 5.0 4.0 4.0 02/06/17 02/06/17 02/06/17 02/06/17 16:00 16:11 17:00 18:00 Pulse 70 68 Resp 18 16 16 B/P 102/51 96/50 Pulse Ox 93 94 95 O2 Delivery Nasal Cannula Nasal Cannula Nasal Cannula Nasal Cannula O2 Flow Rate 4.0 4.0 4.0 4.0 02/06/17 02/06/17 02/06/17 02/06/17 19:00 19:05 20:00 20:00 Temp 98.2 98.2 Pulse 70 70 Resp 18 22 20 B/P 105/59 110/53 Pulse Ox 94 94 92 O2 Delivery Nasal Cannula Nasal Cannula Nasal Cannula Nasal Cannula O2 Flow Rate 4.0 4.0 4.0 4.0 02/06/17 02/06/17 02/06/17 02/06/17 21:00 21:02 22:00 23:00 Pulse 72 76 74 Resp 24 B/P 99/49 102/46 108/57 Pulse Ox 94 94 93 94 O2 Delivery Nasal Cannula Nasal Cannula Nasal Cannula Nasal Cannula O2 Flow Rate 4.0 4.0 4.0 4.0 02/06/17 02/06/17 02/06/17 02/07/17 23:05 23:59 23:59 01:00 Temp 97.9 97.9 Pulse 71 71 Resp 20 B/P 100/51 106/42 Pulse Ox 92 94 93 O2 Delivery BiPAP/CPAP Nasal Cannula Nasal Cannula Nasal Cannula O2 Flow Rate 4.0 4.0 4.0 4.0 02/07/17 02/07/17 02/07/17 02/07/17 01:32 02:00 02:00 03:00 Pulse 70 72 Resp 24 18 18 18 B/P 110/56 94/47 Pulse Ox 95 95 95 93 O2 Delivery Nasal Cannula Nasal Cannula Nasal Cannula Nasal Cannula O2 Flow Rate 4.0 4.0 4.0 4.0 02/07/17 02/07/17 02/07/17 02/07/17 04:00 04:00 05:00 05:32 Pulse 70 70 Resp 16 18 18 B/P 103/46 96/49 Pulse Ox 92 94 93 O2 Delivery Nasal Cannula Nasal Cannula Nasal Cannula Nasal Cannula O2 Flow Rate 4.0 4.0 4.0 4.0 02/07/17 02/07/17 02/07/17 06:00 06:30 07:00 Pulse 72 70 Resp 22 B/P 118/69 112/54 Pulse Ox 96 90 94 O2 Delivery Nasal Cannula Nasal Cannula Nasal Cannula O2 Flow Rate 4.0 4.0 4.0 Intake and Output 02/06/17 02/06/17 02/07/17 15:00 23:00 07:00 Intake Total 285 ml 850 ml 545 ml Output Total 105 ml 5 ml 40 ml Balance 180 ml 845 ml 505 ml Nutrition Consultation Dietary Evaluation: Recommendations by RD: Increase Calorie Intake Comments: Continue to encourage diet compliance to the cardiac/renal diets Intake 25% of meals, does not meet nutrition needs. Rec. add novasource renal BID until intake improves (475 calories/22 grams protein) Expected Outcomes/Goals: meet 75% estimated nutrition needs Malnutrition Findings: Reduced Sample Hand Strength: N/A Weight Status: Overweight ESTEFANÍA MANZO MD Feb 07, 2017 13:45
[2017-02-07] MEDS: DOCUSATE SODIUM 100 MG CAPSULE PO SCH (14:03)
[2017-02-07] MEDS: PANTOPRAZOLE 40 MG TABLET. PO SCH (14:03)
[2017-02-07] MEDS: ASPIRIN ENTERIC COATED 325 MG TABLET.DR. PO SCH (14:03)
[2017-02-07] MEDS: SENNOSIDES/DOCUSATE 8.6/50MG TABLET. PO SCH ×2 (14:03→20:45)
[2017-02-07] MEDS: FOLIC/VIT B COMP W-C (RENAL) TABLET. PO SCH (14:04)
--- NOTE | 2017-02-07 17:29 | PDOC ---
Provider Note Provider Note He seems to be doing well SR still on 4 liters oxygen many of the pac's have resolved wound sites look good labs noted magnesium replaced cxr is appropriate SELENE drain removed. Plan: advance diet/activity will need to stay in CVICU area for HD I do not feel it is safe for him to have HD on the 5th floor. He can be CVC status here will add low dose b beryl to med regimen ZUHAIR DÍAZ MD Feb 07, 2017 17:29
[2017-02-07] MEDS ORDERED: MAGNESIUM SULFATE 2GM 50 ML IV ONE (18:30)
[2017-02-07] MEDS: TAMSULOSIN 0.4 MG CAP.ER.24H. PO SCH (20:44)
[2017-02-07] MEDS: FAMOTIDINE 20 MG TABLET. PO SCH (20:55)
[2017-02-07] MEDS: METOPROLOL TART IMMED RELEASE 25 MG TABLET PO SCH (21:40)
[2017-02-07] MEDS: ALPRAZOLAM 0.5 MG TABLET PO PRN (23:27)
[2017-02-08] VITALS (15 sets, daily range): BP systolic 86–144; BP diastolic 36–64
[2017-02-08] MEDS: OXYCODONE/APAP 5/325 TABLET. PO PRN ×2 (05:53→19:57)
[2017-02-08 06:28] LABS: RED BLOOD COUNT 2.21 x10^6/uL (4.30-5.70); RED CELL DISTRIBUTION WIDTH 15.1 % (11.5-14.5); WHITE BLOOD COUNT 7.7 x10^3/uL (4.0-11.0)
[2017-02-08 06:40] LABS: HEMATOCRIT 20.5 % (39.0-53.0); HEMOGLOBIN 6.7 g/dL (13.0-17.5)
[2017-02-08 06:51] LABS: CALCIUM 8.8 mg/dL (8.5-10.1); CREATININE 5.7 mg/dL (0.7-1.3); GFR 10.2; MAGNESIUM 2.5 mg/dL (1.8-2.4); PHOSPHORUS 3.8 mg/dL (2.6-4.7); POTASSIUM 3.8 mmol/L (3.5-5.1)
--- NOTE | 2017-02-08 08:29 | RAD ---
Indication status post CODE BLUE. Hypothermia protocol. A single view of the chest was obtained and is compared to a study one day earlier. Postoperative changes are noted. There is a left Port-A-Cath. Left chest tube has been removed. Aeration of the lungs has improved. Some minimal volume loss, compatible with atelectasis, is present in the left mid lung. Heart size and pulmonary vessels are within normal limits. IMPRESSION: Interval improvement.
--- NOTE | 2017-02-08 09:38 | PDOC ---
SUBJECTIVE ROS ESRD c/o Pain but otherwise feeling much better CVS: no Orthopnea, no CP RESP: no SOB, no FERNANDEZ GI: no Nausea, no Vomiting : no Dysuria, no Urgency OBJECTIVE Vital Signs Vital Signs Date Time Temp Pulse Resp B/P Pulse Ox O2 Delivery O2 Flow Rate FiO2 02/08/17 08:00 Nasal Cannula 1.5 02/08/17 08:00 78 12 132/64 100 02/08/17 04:30 97.4 97.4 I & 0 Intake and Output 02/08/17 07:00 Intake Total 645 ml Output Total 250 ml Balance 395 ml Intake Oral 595 ml IV Total 50 ml Output Urine Total 0 ml Drainage Total 250 ml PHYSICAL EXAM Physical Exam GEN: Awake, Oriented x 3, In no distress EYES: Vision Unchanged, Conjunctiva Normal EN: No EN Drainage, Mucous Membranes moist NECK: no JVD, no JVP, Supple, no Thyromegaly CVS: S1S2, ? Murmur, No Gallop, ? Rub,no Edema RESP: + vera Basal Rales, no Rhonchi,no Acc. Muscle Use GI: BS + ve, NO Bruit, Non Tender, Non Distended : no CVA tenderness, no Suprapubic Tenderness DIAGNOSIS/ASSESSMENT Assessment & Plan ESRD: Current fluid and E-lyte status does not necessitate emergent need for dialysis. Will re-evaluate for dialysis in the am and continue on TTSat schedule. ANEMIA; ^ Aranap as ordered, Transfuse with next HD as needed HTN: Current BP meds as reviewed. See orders for changes. BONE & MINERAL: Phos is now WNL - watch now that PO intake has resumed Discussed Plan of Care with opt at bedside Problems: COMMENT/RELEVANT DATA Meds Current Medications Medications (Trade) Dose Ordered Sig/Cirilo Start Time Stop Time Status Last Admin Dose Admin Acetaminophen (Tylenol) 500 mg 1X PRN PRN 02/06/17 08:30 02/07/17 08:29 DC Acetaminophen/ Hydrocodone Bitart (Lortab 5/325) 1 tab PRN Q4HRS PRN 01/29/17 18:45 02/06/17 10:21 DC 02/04/17 17:16 1 TAB Albumin Human (Albuminar) 200 ml @ 200 mls/hr 1X PRN PRN 02/06/17 08:30 02/06/17 14:29 DC 02/06/17 09:30 200 MLS/HR Albumin Human (Plasmanate) 250 ml @ 60 mls/hr PRN Q4HRS PRN 02/06/17 16:09 Albuterol Sulfate (Ventolin Neb Soln) 2.5 mg PRN Q4HRS PRN 02/05/17 13:15 02/06/17 00:15 2.5 MG Alprazolam (Xanax) 0.5 mg PRN Q8HRS PRN 02/06/17 22:15 02/07/17 23:27 0.5 MG Aminocaproic Acid (Amicar) 5,000 mg STK-MED ONCE 02/05/17 12:59 02/05/17 13:00 DC Amiodarone HCl 150 mg/Dextrose 103 ml @ 200 mls/hr 1X PRN PRN 02/05/17 13:15 02/07/17 17:31 DC Amiodarone HCl 900 mg/Dextrose 518 ml @ 33.33 mls/ hr CONT PRN PRN 02/05/17 13:15 02/07/17 17:31 DC Amlodipine Besylate (Norvasc) 10 mg BID 01/29/17 12:00 02/06/17 17:20 DC 02/04/17 20:55 10 MG Aspirin (Aspirin) 300 mg PRN DAILY PRN 02/05/17 13:15 02/07/17 17:31 DC Aspirin (Children'S Aspirin) 324 mg DAILY 01/29/17 12:00 01/30/17 18:32 DC Aspirin (Ecotrin) 325 mg DAILYWBKFT 02/06/17 08:00 02/07/17 14:03 325 MG Bisacodyl (Dulcolax Supp) 10 mg PRN DAILY PRN 02/05/17 13:15 Calcium Carbonate/ Glycine (Tums) 800 mg TIDAC 01/29/17 11:30 02/06/17 16:11 800 MG Calcium Chloride 2,000 mg 1X ONCE 02/06/17 07:30 02/06/17 07:31 DC Cellulose 1 each STK-MED ONCE 02/05/17 06:42 02/05/17 06:43 DC 02/05/17 08:42 1 EACH Chlorhexidine Gluconate (Peridex) 15 ml BID 02/05/17 21:00 02/05/17 22:13 DC 02/05/17 20:37 15 ML Clevidipine (Cleviprex) 100 ml @ 0 mls/hr CONT PRN 02/05/17 13:15 02/07/17 17:31 DC 02/05/17 17:25 4 MLS/HR Clonazepam (Klonopin) 0.5 mg PRN Q6HRS PRN 02/06/17 10:15 Clonidine HCl (Catapres) 0.3 mg DAILY 01/30/17 09:00 02/06/17 08:54 DC 02/04/17 14:59 0.3 MG Clopidogrel Bisulfate (Plavix) 75 mg DAILY 01/29/17 12:00 01/30/17 09:45 DC Cyclobenzaprine HCl (Flexeril) 10 mg PRN TID PRN 01/29/17 18:45 01/30/17 05:22 10 MG Darbepoetin Percy (Aranesp) 60 mcg WEEKLYHS 02/02/17 21:00 02/02/17 21:15 60 MCG Dextrose 25 gm 1X ONCE 02/06/17 07:30 02/06/17 07:31 DC Dextrose 25 gm 25 gm PRN Q15MIN PRN 02/05/17 13:15 Diltiazem HCl 5 mg 5 mg 1X ONCE 01/29/17 19:15 01/29/17 19:18 DC 01/29/17 19:23 5 MG Diltiazem HCl/ Dextrose (Cardizem) 125 ml @ 0 mls/hr CONT PRN 01/29/17 19:15 02/03/17 12:13 DC Diphenhydramine HCl (Benadryl) 25 mg 1X PRN PRN 02/06/17 08:30 02/07/17 08:29 DC Docusate Sodium (Colace) 100 mg DAILY 02/07/17 09:00 02/07/17 14:03 100 MG Ephedrine Sulfate 50 mg STK-MED ONCE 02/05/17 06:14 02/05/17 06:15 DC Etomidate (Amidate) 20 mg STK-MED ONCE 02/05/17 06:13 02/05/17 06:14 DC Famotidine (Pepcid) 20 mg Q48H 02/05/17 21:00 02/06/17 15:11 DC 02/05/17 20:37 20 MG Famotidine 20 mg 20 mg Q48H 02/07/17 21:00 02/07/17 20:55 20 MG Fentanyl Citrate (Fentanyl 2ml Vial) 50 mcg PRN Q5MIN PRN 02/05/17 07:00 02/05/17 22:13 DC Fentanyl Citrate 100 mcg 100 mcg STK-MED ONCE 02/05/17 06:15 02/05/17 06:16 DC Furosemide (Lasix) 80 mg [id number] 01/29/17 14:00 02/06/17 08:54 DC 02/04/17 15:11 80 MG Heparin Sodium (Porcine) 10,000 unit STK-MED ONCE 02/05/17 12:59 02/05/17 13:00 DC Heparin Sodium (Porcine) 3000 unit 3,000 unit 1X ONCE 01/30/17 18:00 01/30/17 18:01 DC 01/30/17 17:36 3 UNIT Heparin Sodium (Porcine) 94156 unit 30,000 unit STK-MED ONCE 02/05/17 12:59 02/05/17 13:00 DC Heparin Sodium (Porcine)/ Lactated Ringer's (Iv Lactated Ringers) 1,020 ml @ 1,020 mls/hr 1X PERIOP ONCE 02/05/17 06:00 02/05/17 06:59 DC 02/05/17 08:42 Heparin Sodium/ Dextrose 500 ml @ 24 mls/hr CONT PRN 01/30/17 18:00 02/04/17 18:41 DC 02/03/17 05:47 24 MLS/HR Heparin Sodium/ Sodium Chloride 1,000 unit 1X ONCE 01/29/17 18:45 01/29/17 18:53 DC 01/29/17 18:51 1,000 UNIT Hydralazine HCl (Apresoline) 100 mg TID 01/29/17 14:00 02/06/17 17:16 DC 02/04/17 20:54 100 MG Hydromorphone HCl (Dilaudid) 0.5 mg PRN Q10MIN PRN 02/05/17 07:00 02/06/17 06:59 DC Info (Anti-Coagulation Monitoring By Pharmacy) 1 each PRN DAILY PRN 01/30/17 10:45 02/04/17 18:43 DC 02/04/17 09:51 1 EACH Info (PHARMACY MONITORING -- do not chart) 1 each PRN DAILY PRN 02/07/17 11:30 02/07/17 11:30 DC Insulin Human Regular (Novolin R Vial) 10 unit 1X ONCE 02/06/17 07:30 02/06/17 07:31 DC Insulin Human Regular/Sodium Chloride (Novolin R Vial/ Iv Normal Saline 150ml) 151.5 ml @ 0 mls/hr CONT PRN PRN 02/05/17 13:15 02/07/17 17:31 DC Iodixanol (Visipaque 320) 105 ml 1X ONCE 01/29/17 18:45 01/29/17 18:53 DC 01/29/17 18:52 105 ML Isoflurane (Isoflurane) 90 ml STK-MED ONCE 02/05/17 11:34 02/05/17 11:35 DC Isosorbide Mononitrate (Imdur) 30 mg DAILY 01/29/17 12:00 02/06/17 08:54 DC 02/04/17 15:01 30 MG Ketorolac Tromethamine (Toradol) 15 mg 1X ONCE 02/07/17 12:00 02/07/17 12:01 DC 02/07/17 12:00 15 MG Lactated Ringer's 1,000 ml @ 30 mls/hr Q24H 02/05/17 13:15 02/07/17 17:31 DC 02/06/17 12:37 30 MLS/HR Lactated Ringer's (Iv Lactated Ringers) 1,000 ml @ 0 mls/hr Q0M 02/05/17 07:00 02/05/17 13:28 DC 02/05/17 07:32 30 MLS/HR Lidocaine HCl (Xylocaine-Mpf 1% Vial) 5 ml STK-MED ONCE 02/05/17 12:59 02/05/17 13:00 DC Losartan Potassium (Cozaar) 100 mg QHS 01/29/17 21:00 02/06/17 17:16 DC 02/04/17 20:56 100 MG Magnesium Sulfate 5 gm STK-MED ONCE 02/05/17 12:59 02/05/17 13:00 DC Magnesium Sulfate/ Dextrose (Magnesium Sulfate PREMIX 1GM) 100 ml @ 100 mls/hr PRN DAILY PRN 02/05/17 13:15 Magnesium Sulfate/ Dextrose (Magnesium Sulfate PREMIX 2GM) 50 ml @ 25 mls/hr 1X ONCE 02/07/17 18:30 02/07/17 20:29 DC 02/07/17 18:30 25 MLS/HR Mannitol (Mannitol Iv Soln) 500 ml @ 0 mls/hr 1X ONCE 02/05/17 07:15 02/05/17 07:16 DC Meperidine HCl 12.5 mg 12.5 mg PRN Q15MIN PRN 02/05/17 13:15 02/06/17 10:21 DC Metoprolol Tartrate (Lopressor) 10 mg 1X ONCE 01/29/17 18:45 01/29/17 18:53 DC 01/29/17 18:52 10 MG Metoprolol Tartrate 12.5 mg 12.5 mg BID 02/07/17 21:00 Metoprolol Tartrate 25 mg 25 mg BID 02/06/17 09:00 02/06/17 17:16 DC Midazolam HCl (Versed) 5 mg STK-MED ONCE 02/05/17 09:10 02/05/17 09:11 DC Mineral Oil (Muri-Lube) 10 ml STK-MED ONCE 02/05/17 06:43 02/05/17 06:44 DC 02/05/17 12:10 10 ML Morphine Sulfate 4 mg PRN Q2HR PRN 02/07/17 13:15 Morphine Sulfate 1 mg 1 mg PRN Q10MIN PRN 02/05/17 07:00 02/06/17 06:59 DC 02/05/17 19:01 1 MG Nitroglycerin (Nitrostat) 0.4 mg STK-MED ONCE 01/29/17 17:00 01/30/17 08:02 DC Nitroglycerin/ Dextrose 250 ml @ 0 mls/hr CONT PRN PRN 02/05/17 13:15 02/07/17 17:31 DC Nitroglycerin/ Dextrose (Nitroglycerin Drip) 250 ml @ As Directed STK-MED ONCE 02/05/17 06:15 02/05/17 06:16 DC Ondansetron HCl (Zofran) 4 mg PRN Q4HRS PRN 02/05/17 13:15 02/05/17 20:02 4 MG Ondansetron HCl 4 mg 4 mg 1X ONCE 01/28/17 23:30 01/28/17 23:31 DC 01/28/17 23:57 4 MG Oxycodone/ Acetaminophen (Percocet 5/325) 1 tab PRN Q4HRS PRN 02/05/17 13:15 02/08/17 05:53 1 TAB Oxycodone/ Acetaminophen 2 tab 2 tab PRN Q4HRS PRN 02/05/17 13:15 02/07/17 20:53 2 TAB Pantoprazole Sodium (Protonix) 40 mg DAILYAC 01/29/17 12:00 02/07/17 14:03 40 MG Papaverine HCl 60 mg STK-MED ONCE 02/05/17 06:42 02/05/17 06:43 DC 02/05/17 08:42 60 MG Paroxetine HCl (Paxil) 40 mg DAILY 01/29/17 12:00 02/07/17 13:00 40 MG Phenylephrine HCl (Alexis-Synephrine Inj) 10 mg STK-MED ONCE 02/05/17 06:14 02/05/17 06:15 DC Potassium Chloride 15 meq/ Sodium Bicarbonate 12.5 meq/Parenteral Electrolytes 520 ml @ 520 mls/hr 1X PERIOP ONCE 02/05/17 06:00 02/05/17 06:59 DC 02/05/17 09:42 520 MLS/HR Potassium Chloride 70 meq/ Sodium Bicarbonate 12.5 meq/Lidocaine HCl 24 ml/Parenteral Electrolytes 571.5 ml @ 571.5 mls/ hr 1X PERIOP ONCE 02/05/17 06:00 02/05/17 06:59 DC 02/05/17 09:42 571.5 MLS/HR Prochlorperazine Edisylate 5 mg 5 mg PACU PRN PRN 02/05/17 07:00 02/06/17 06:59 DC Propofol (Diprivan) 100 ml @ 0 mls/hr CONT PRN PRN 02/05/17 13:15 02/05/17 22:13 DC 02/05/17 17:23 2 MLS/HR Protamine Sulfate 50 mg STK-MED ONCE 02/05/17 11:09 02/05/17 11:10 DC Rocuronium Tabor (Zemuron) 100 mg STK-MED ONCE 02/05/17 09:43 02/05/17 09:44 DC Senna/Docusate Sodium (Senna Plus) 1 tab BID 02/05/17 21:00 02/07/17 20:45 1 TAB Sodium Chloride 1,000 ml @ 1,000 mls/hr Q1H PRN 02/06/17 08:26 02/06/17 14:25 DC Sodium Chloride (Iv Sodium Chloride 0.9% 500ml Bag) 500 ml @ 0 mls/hr 1X ONCE 01/28/17 23:30 01/28/17 23:31 DC 01/28/17 23:39 999 MLS/HR Sodium Chloride (Iv Sodium Chloride 0.9% 1000ml Bag) 1,000 ml @ 1,000 mls/hr Q1H PRN 02/04/17 09:55 02/04/17 15:54 DC Sodium Chloride (Normal Saline Flush) 3 ml QSHIFT PRN 01/29/17 18:45 Sodium Chloride 50 ml 50 ml STK-MED ONCE 02/05/17 06:43 02/05/17 06:44 DC 02/05/17 08:42 50 ML Sufentanil Citrate (Sufenta) 100 mcg STK-MED ONCE 02/05/17 08:01 02/05/17 08:02 DC Tamsulosin HCl (Flomax) 0.4 mg QHS 01/29/17 21:00 02/07/17 20:44 0.4 MG Throat Lozenges (Cepacol Sore Throat Lozenge) 1 mika PRN Q2HRS PRN 02/03/17 07:15 02/05/17 13:28 DC 02/03/17 20:49 1 MIKA Throat Lozenges 1 mika 1 mika PRN Q2HRS PRN 02/04/17 11:00 02/08/17 06:01 1 MIKA Vancomycin HCl 1.5 gm/Sodium Chloride 500 ml @ 250 mls/hr Q12H 02/05/17 13:30 02/06/17 15:29 UNV Vancomycin HCl/ Sodium Chloride (Iv Sodium Chloride 0.9% 100ml) 100 ml @ 100 mls/hr 1X ONCE 02/06/17 16:00 02/06/17 16:59 DC 02/06/17 15:00 100 MLS/HR Vecuronium Tabor 10 mg 10 mg STK-MED ONCE 02/05/17 13:30 02/06/17 07:51 DC Vitamin B Complex/ Vitamin C (Nephro-Chilo) 1 tab DAILY 01/29/17 12:00 02/07/17 14:04 1 TAB Lab Laboratory Tests Test 02/08/17 06:00 White Blood Count 7.7x10^3/uL (4.0-11.0) Red Blood Count 2.21x10^6/uL (4.30-5.70) Hemoglobin 6.7g/dL (13.0-17.5) Hematocrit 20.5% (39.0-53.0) Mean Corpuscular Volume 93fL (79-100) Mean Corpuscular Hemoglobin 31pg (25-35) Mean Corpuscular Hemoglobin Concent 33g/dL (31-37) Red Cell Distribution Width 15.1% (11.5-14.5) Platelet Count 155x10^3/uL (140-400) Sodium Level 139mmol/L (136-145) Potassium Level 3.8mmol/L (3.5-5.1) Chloride Level 100mmol/L (98-107) Carbon Dioxide Level 29mmol/L (21-32) Anion Gap 10 (6-14) Blood Urea Nitrogen 25mg/dL (8-26) Creatinine 5.7mg/dL (0.7-1.3) Estimated GFR (Cockcroft-Gault) 10.2 Glucose Level 114mg/dL (70-99) Calcium Level 8.8mg/dL (8.5-10.1) Phosphorus Level 3.8mg/dL (2.6-4.7) Magnesium Level 2.5mg/dL (1.8-2.4) Albumin 3.0g/dL (3.4-5.0) TING GARDUNO MD Feb 08, 2017 09:38
--- NOTE | 2017-02-08 10:06 | PDOC ---
PROGRESS NOTES Chief Complaint Chief Complaint Pancreatitis ACS ASSESSMENT AND PLAN: 1. STEMI: cath on 01/[address] Kiran: multivessel dz. CABG on 02/[address] Holbrook. 2. KnownCAD 3. ESRD: on HD, 4. Anemia: blood loss on top of CKD 5. DM: currently welll controlled. 6. Anxiety: 7. AMS : resolved 8. Sore throat: resolved 9 Pancreatitis: recurrent panc w/o EtOH hx, and s/p CCY. resolved 10. Prophylaxis: PPI History of Present Illness History of Present Illness Better today PAin under control now Hgb 6,.7 today Ambulating good Planned for home on saturday SELENE drain out, rod out Mediastinal dressing needs to be changed PLAN: \Transfuse 1 pRBC HH again eddie Cont PT/OT Out pt cardiac rehab Planned for home on saturday Dw pt and CVC RN HD TtHS Vitals Vitals Vital Signs Date Time Temp Pulse Resp B/P Pulse Ox O2 Delivery O2 Flow Rate FiO2 02/08/17 09:43 97.3 84 16 113/63 97.3 02/08/17 08:00 Nasal Cannula 1.5 02/08/17 08:00 100 Physical Exam General: Alert, Oriented X3, Cooperative, No acute distress Heart: Normal S1, Normal S2, Other (irreg) Lungs: Clear, Other (sternal incison covered with gauze, dried blood in gauze) Abdomen: Normal bowel sounds, Soft, No tenderness Extremities: No cyanosis Skin: No rashes Labs LABS Laboratory Tests Test 02/08/17 06:00 White Blood Count 7.7x10^3/uL (4.0-11.0) Red Blood Count 2.21x10^6/uL (4.30-5.70) Hemoglobin 6.7g/dL (13.0-17.5) Hematocrit 20.5% (39.0-53.0) Mean Corpuscular Volume 93fL (79-100) Mean Corpuscular Hemoglobin 31pg (25-35) Mean Corpuscular Hemoglobin Concent 33g/dL (31-37) Red Cell Distribution Width 15.1% (11.5-14.5) Platelet Count 155x10^3/uL (140-400) Sodium Level 139mmol/L (136-145) Potassium Level 3.8mmol/L (3.5-5.1) Chloride Level 100mmol/L (98-107) Carbon Dioxide Level 29mmol/L (21-32) Anion Gap 10 (6-14) Blood Urea Nitrogen 25mg/dL (8-26) Creatinine 5.7mg/dL (0.7-1.3) Estimated GFR (Cockcroft-Gault) 10.2 Glucose Level 114mg/dL (70-99) Calcium Level 8.8mg/dL (8.5-10.1) Phosphorus Level 3.8mg/dL (2.6-4.7) Magnesium Level 2.5mg/dL (1.8-2.4) Albumin 3.0g/dL (3.4-5.0) Review of Systems Review of Systems no inc in pain, cp, soa, emesis Assessment and Plan Assessmemt and Plan Problems Medical Problems: (1) Flank pain Status: Acute (2) Pancreatitis Status: Acute (3) Unstable angina pectoris Status: Acute Problems: Comment Review of Relevant I have reviewed the following items dionte (where applicable) has been applied. Labs Laboratory Tests Test 02/06/17 11:07 02/06/17 12:45 02/06/17 17:22 02/06/17 22:17 Glucose (Fingerstick) 125mg/dL (70-99) 115mg/dL (70-99) 121mg/dL (70-99) Potassium Level 3.7mmol/L (3.5-5.1) Test 02/07/17 05:35 02/08/17 06:00 White Blood Count 9.1x10^3/uL (4.0-11.0) 7.7x10^3/uL (4.0-11.0) Red Blood Count 2.54x10^6/uL (4.30-5.70) 2.21x10^6/uL (4.30-5.70) Hemoglobin 7.7g/dL (13.0-17.5) 6.7g/dL (13.0-17.5) Hematocrit 23.5% (39.0-53.0) 20.5% (39.0-53.0) Mean Corpuscular Volume 93fL (79-100) 93fL (79-100) Mean Corpuscular Hemoglobin 30pg (25-35) 31pg (25-35) Mean Corpuscular Hemoglobin Concent 33g/dL (31-37) 33g/dL (31-37) Red Cell Distribution Width 14.9% (11.5-14.5) 15.1% (11.5-14.5) Platelet Count 136x10^3/uL (140-400) 155x10^3/uL (140-400) Sodium Level 141mmol/L (136-145) 139mmol/L (136-145) Potassium Level 4.0mmol/L (3.5-5.1) 3.8mmol/L (3.5-5.1) Chloride Level 97mmol/L (98-107) 100mmol/L (98-107) Carbon Dioxide Level 31mmol/L (21-32) 29mmol/L (21-32) Anion Gap 13 (6-14) 10 (6-14) Blood Urea Nitrogen 22mg/dL (8-26) 25mg/dL (8-26) Creatinine 6.0mg/dL (0.7-1.3) 5.7mg/dL (0.7-1.3) Estimated GFR (Cockcroft-Gault) 9.6 10.2 Glucose Level 117mg/dL (70-99) 114mg/dL (70-99) Calcium Level 9.1mg/dL (8.5-10.1) 8.8mg/dL (8.5-10.1) Phosphorus Level 4.9mg/dL (2.6-4.7) 3.8mg/dL (2.6-4.7) Magnesium Level 1.9mg/dL (1.8-2.4) 2.5mg/dL (1.8-2.4) Albumin 3.4g/dL (3.4-5.0) 3.0g/dL (3.4-5.0) Lipase 178U/L (73-393) Laboratory Tests Test 02/08/17 06:00 White Blood Count 7.7x10^3/uL (4.0-11.0) Red Blood Count 2.21x10^6/uL (4.30-5.70) Hemoglobin 6.7g/dL (13.0-17.5) Hematocrit 20.5% (39.0-53.0) Mean Corpuscular Volume 93fL (79-100) Mean Corpuscular Hemoglobin 31pg (25-35) Mean Corpuscular Hemoglobin Concent 33g/dL (31-37) Red Cell Distribution Width 15.1% (11.5-14.5) Platelet Count 155x10^3/uL (140-400) Sodium Level 139mmol/L (136-145) Potassium Level 3.8mmol/L (3.5-5.1) Chloride Level 100mmol/L (98-107) Carbon Dioxide Level 29mmol/L (21-32) Anion Gap 10 (6-14) Blood Urea Nitrogen 25mg/dL (8-26) Creatinine 5.7mg/dL (0.7-1.3) Estimated GFR (Cockcroft-Gault) 10.2 Glucose Level 114mg/dL (70-99) Calcium Level 8.8mg/dL (8.5-10.1) Phosphorus Level 3.8mg/dL (2.6-4.7) Magnesium Level 2.5mg/dL (1.8-2.4) Albumin 3.0g/dL (3.4-5.0) Microbiology 02/03/17 Throat Culture - Final, Complete 02/03/17 - Final, Complete Medications Current Medications Hydromorphone HCl (Dilaudid) 1 mg 1X ONCE IV Last administered on 01/28/17 23 :57; Start 01/28/17 at 23:30; Stop 01/28/17 at 23:31; Status DC Ondansetron HCl 4 mg 4 mg 1X ONCE IV Last administered on 01/28/17 23:57; Start 01/28/17 at 23:30; Stop 01/28/17 at 23:31; Status DC Sodium Chloride (Iv Sodium Chloride 0.9% 500ml Bag) 500 ml @ 0 mls/hr 1X ONCE IV Last administered on 01/28/17 23:39; Start 01/28/17 at 23:30; Stop at 23:31; Status DC Diphenhydramine HCl (Benadryl) 50 mg 1X ONCE IVP Last administered on 00:29; Start 01/29/17 at 00:30; Stop 01/29/17 at 00:31; Status DC Diphenhydramine HCl (Benadryl) 50 mg STK-MED ONCE .ROUTE ; Start 01/29/17 at 00: 26; Stop 01/29/17 at 00:27; Status DC Morphine Sulfate 4 mg 1X ONCE IV Last administered on 01/29/17 03:55; Start 01/29/17 at 02:15; Stop 01/29/17 at 02:16; Status DC Ondansetron HCl (Zofran) 4 mg PRN Q8HRS PRN IV NAUSEA/VOMITING; Start 01/29/17 at 03:00; Stop 01/30/17 at 02:59; Status DC Morphine Sulfate 4 mg 4 mg PRN Q2HR PRN IV PAIN Last administered on 01/29/17 09:59; Start 01/29/17 at 03:00; Stop 01/29/17 at 11:47; Status DC Sodium Chloride (Iv Sodium Chloride 0.9% 1000ml Bag) 1,000 ml @ 50 mls/hr Q20H IV Last administered on 01/30/17 07:28; Start 01/29/17 at 02:12; Stop at 02:11; Status DC Alprazolam (Xanax) 0.5 mg PRN Q6HRS PRN PO ANXIETY / AGITATION Last administered on 02/03/17 07:45; Start 01/29/17 at 11:30; Stop 02/03/17 at 12:13 ; Status DC Amlodipine Besylate (Norvasc) 10 mg BID PO Last administered on 02/04/17 20:55 ; Start 01/29/17 at 12:00; Stop 02/06/17 at 17:20; Status DC Aspirin (Children'S Aspirin) 324 mg DAILY PO ; Start 01/29/17 at 12:00; Stop at 18:32; Status DC Calcium Carbonate/ Glycine (Tums) 800 mg TIDAC PO Last administered on 16:11; Start 01/29/17 at 11:30 Clonidine HCl (Catapres) 0.3 mg DAILY PO Last administered on 02/04/17 14:59; Start 01/30/17 at 09:00; Stop 02/06/17 at 08:54; Status DC Clopidogrel Bisulfate (Plavix) 75 mg DAILY PO ; Start 01/29/17 at 12:00; Stop at 09:45; Status DC Vitamin B Complex/ Vitamin C (Nephro-Chilo) 1 tab DAILY PO Last administered on 02/07/17 14:04; Start 01/29/17 at 12:00 Furosemide (Lasix) 80 mg [id number] PO Last administered on 02/04/17 15:11; Start 01/29/17 at 14:00; Stop 02/06/17 at 08:54; Status DC Acetaminophen/ Hydrocodone Bitart (Lortab 5/325) 1 tab PRN Q6HRS PRN PO PAIN; Start 01/29/17 at 11:30; Stop 01/29/17 at 18:58; Status DC Isosorbide Mononitrate (Imdur) 30 mg DAILY PO Last administered on 02/04/17 15 :01; Start 01/29/17 at 12:00; Stop 02/06/17 at 08:54; Status DC Paroxetine HCl (Paxil) 40 mg DAILY PO Last administered on 02/07/17 13:00; Start 01/29/17 at 12:00 Tamsulosin HCl (Flomax) 0.4 mg QHS PO Last administered on 02/07/17 20:44; Start 01/29/17 at 21:00 Hydralazine HCl (Apresoline) 100 mg TID PO Last administered on 02/04/17 20:54 ; Start 01/29/17 at 14:00; Stop 02/06/17 at 17:16; Status DC Losartan Potassium (Cozaar) 100 mg QHS PO Last administered on 02/04/17 20:56 ; Start 01/29/17 at 21:00; Stop 02/06/17 at 17:16; Status DC Metoprolol Tartrate (Lopressor) 100 mg BID PO Last administered on 02/05/17 06 :34; Start 01/29/17 at 12:00; Stop 02/05/17 at 13:28; Status DC Pantoprazole Sodium (Protonix) 40 mg DAILYAC PO Last administered on 02/07/17 14:03; Start 01/29/17 at 12:00 Darbepoetin Percy (Aranesp) 60 mcg [id number] SQ Last administered on 02/02/17 21 :15; Start 02/02/17 at 21:00; Stop 02/08/17 at 09:40; Status DC Morphine Sulfate 6 mg 6 mg PRN Q2HR PRN IV PAIN Last administered on 01/30/17 19:22; Start 01/29/17 at 11:45; Stop 02/01/17 at 15:20; Status DC Sodium Chloride (Iv Sodium Chloride 0.9% 1000ml Bag) 1,000 ml @ 1,000 mls/hr Q1H PRN IV hypotension; Start 01/29/17 at 12:55; Stop 01/29/17 at 18:54; Status DC Diphenhydramine HCl (Benadryl) 25 mg 1X PRN PRN IV ITCHING Last administered on 01/29/17 19:12; Start 01/29/17 at 13:00; Stop 01/30/17 at 12:59; Status DC Diphenhydramine HCl (Benadryl) 25 mg 1X PRN PRN IV ITCHING Last administered on 01/29/17 13:16; Start 01/29/17 at 13:00; Stop 01/30/17 at 12:59; Status DC Info (PHARMACY MONITORING -- do not chart) 1 each PRN DAILY PRN MC SEE COMMENTS ; Start 01/29/17 at 13:00; Status UNV Info (PHARMACY MONITORING -- do not chart) 1 each PRN DAILY PRN MC SEE COMMENTS ; Start 01/29/17 at 13:00; Stop 02/03/17 at 09:04; Status DC Nitroglycerin (Nitrostat) 0.4 mg STK-MED ONCE SL ; Start 01/29/17 at 16:55; Stop 01/29/17 at 16:56; Status DC Heparin Sodium (Porcine) 4000 unit 4,000 unit 1X ONCE IV Last administered on 01/29/17 17:37; Start 01/29/17 at 17:30; Stop 01/29/17 at 17:31; Status DC Heparin Sodium/ Sodium Chloride 500 ml @ As Directed STK-MED ONCE .ROUTE ; Start 01/29/17 at 17:54; Stop 01/29/17 at 17:55; Status DC Lidocaine HCl 20 ml STK-MED ONCE .ROUTE ; Start 01/29/17 at 17:54; Stop at 17:55; Status DC Iodixanol (Visipaque 320) 100 ml STK-MED ONCE .ROUTE ; Start 01/29/17 at 17:54; Stop 01/29/17 at 17:55; Status DC Metoprolol Tartrate (Lopressor) 5 mg STK-MED ONCE .ROUTE ; Start 01/29/17 at 18: 05; Stop 01/29/17 at 18:06; Status DC Fentanyl Citrate (Fentanyl 2ml Vial) 100 mcg STK-MED ONCE .ROUTE ; Start at 18:05; Stop 01/29/17 at 18:06; Status DC Midazolam HCl 2 mg 2 mg STK-MED ONCE .ROUTE ; Start 01/29/17 at 18:05; Stop at 18:06; Status DC Heparin Sodium/ Dextrose 500 ml @ As Directed STK-MED ONCE IV ; Start 01/29/17 at 18:18; Stop 01/29/17 at 18:19; Status DC Heparin Sodium (Porcine) 10,000 unit STK-MED ONCE .ROUTE ; Start 01/29/17 at 18: 18; Stop 01/29/17 at 18:19; Status DC Metoprolol Tartrate (Lopressor) 5 mg STK-MED ONCE .ROUTE ; Start 01/29/17 at 18: 25; Stop 01/29/17 at 18:26; Status DC Heparin Sodium/ Sodium Chloride 1,000 unit 1X ONCE IART Last administered on 18:51; Start 01/29/17 at 18:45; Stop 01/29/17 at 18:53; Status DC Heparin Sodium/ Sodium Chloride 1,000 unit 1X ONCE IART Last administered on 18:51; Start 01/29/17 at 18:45; Stop 01/29/17 at 18:53; Status DC Midazolam HCl (Versed) 1 mg 1X ONCE IV Last administered on 01/29/17 18:53; Start 01/29/17 at 18:45; Stop 01/29/17 at 18:53; Status DC Fentanyl Citrate (Fentanyl 2ml Vial) 50 mcg 1X ONCE IV Last administered on 18:53; Start 01/29/17 at 18:45; Stop 01/29/17 at 18:53; Status DC Iodixanol (Visipaque 320) 105 ml 1X ONCE IART Last administered on 01/29/17 18:52; Start 01/29/17 at 18:45; Stop 01/29/17 at 18:53; Status DC Heparin Sodium (Porcine) 4000 unit 4,000 unit 1X ONCE IV Last administered on 01/29/17 18:53; Start 01/29/17 at 18:45; Stop 01/29/17 at 18:53; Status DC Heparin Sodium/ Dextrose 500 ml @ 20 mls/hr CONT PRN IV SEE I/O RECORD; Start 01/29/17 at 18:24; Stop 01/30/17 at 14:01; Status DC Metoprolol Tartrate (Lopressor) 10 mg 1X ONCE IVP Last administered on 18:52; Start 01/29/17 at 18:45; Stop 01/29/17 at 18:53; Status DC Lidocaine HCl 10 ml 1X ONCE IJ Last administered on 01/29/17 18:52; Start at 18:45; Stop 01/29/17 at 18:53; Status DC Sodium Chloride (Normal Saline Flush) 3 ml QSHIFT PRN IV AFTER MEDS AND BLOOD DRAWS; Start 01/29/17 at 18:45 Docusate Sodium (Colace) 100 mg BID PO Last administered on 02/06/17 21:02; Start 01/29/17 at 21:00; Stop 02/07/17 at 13:21; Status DC Fentanyl Citrate (Fentanyl 2ml Vial) 50 mcg PRN Q1HR PRN IV SEVERE PAIN Last administered on 02/05/17 22:00; Start 01/29/17 at 18:45; Stop 02/06/17 at 10:21 ; Status DC Cyclobenzaprine HCl (Flexeril) 10 mg PRN TID PRN PO MUSCLE SPASMS Last administered on 01/30/17 05:22; Start 01/29/17 at 18:45 Ondansetron HCl (Zofran) 4 mg PRN Q6HRS PRN IV NAUSEA/VOMITING; Start 01/29/17 at 18:45; Stop 02/05/17 at 13:28; Status DC Nitroglycerin (Nitrostat) 0.4 mg PRN Q5MIN PRN SL CHEST PAIN; Start 01/29/17 at 18:45 Acetaminophen/ Hydrocodone Bitart (Lortab 5/325) 1 tab PRN Q4HRS PRN PO MILD PAIN Last administered on 02/04/17 17:16; Start 01/29/17 at 18:45; Stop at 10:21; Status DC Diltiazem HCl 5 mg 5 mg 1X ONCE IVP Last administered on 01/29/17 19:23; Start 01/29/17 at 19:15; Stop 01/29/17 at 19:18; Status DC Diltiazem HCl/ Dextrose (Cardizem) 125 ml @ 0 mls/hr CONT PRN IV SEE I/O RECORD ; Start 01/29/17 at 19:15; Stop 02/03/17 at 12:13; Status DC Diphenhydramine HCl (Benadryl) 50 mg PRN Q8HRS PRN IVP ITCHING Last administered on 02/02/17 09:41; Start 01/29/17 at 19:15; Stop 02/03/17 at 09:05 ; Status DC Nitroglycerin (Nitrostat) 0.4 mg STK-MED ONCE SL ; Start 01/29/17 at 17:00; Stop 01/30/17 at 08:02; Status DC Info (Anti-Coagulation Monitoring By Pharmacy) 1 each PRN DAILY PRN MC SEE COMMENTS Last administered on 02/04/17 09:51; Start 01/30/17 at 10:45; Stop at 18:43; Status DC Heparin Sodium (Porcine) 3000 unit 3,000 unit 1X ONCE IV Last administered on 01/30/17 17:36; Start 01/30/17 at 18:00; Stop 01/30/17 at 18:01; Status DC Heparin Sodium/ Dextrose 500 ml @ 24 mls/hr CONT PRN IV SEE I/O RECORD Last administered on 02/03/17 05:47; Start 01/30/17 at 18:00; Stop 02/04/17 at 18:41 ; Status DC Sodium Chloride (Iv Sodium Chloride 0.9% 1000ml Bag) 1,000 ml @ 50 mls/hr Q20H IV Last administered on 01/31/17 23:30; Start 01/31/17 at 02:45; Stop at 12:13; Status DC Dextrose 25 gm 1X ONCE IV Last administered on 01/31/17 06:05; Start at 06:30; Stop 01/31/17 at 06:31; Status DC Insulin Human Regular (Novolin R Vial) 10 unit 1X ONCE IV Last administered on 01/31/17 06:09; Start 01/31/17 at 06:30; Stop 01/31/17 at 06:31; Status DC Dextrose 25 gm 25 gm 1X ONCE IV Last administered on 01/31/17 09:04; Start at 09:00; Stop 01/31/17 at 09:03; Status DC Sodium Chloride 1,000 ml @ 1,000 mls/hr Q1H PRN IV hypotension; Start 01/31/17 at 09:28; Stop 01/31/17 at 15:27; Status DC Albumin Human (Albuminar) 200 ml @ 200 mls/hr 1X PRN PRN IV Hypotension; Start 01/31/17 at 09:30; Stop 01/31/17 at 15:29; Status DC Acetaminophen (Tylenol) 500 mg 1X PRN PRN PO MILD PAIN / TEMP; Start 01/31/17 at 09:30; Stop 02/01/17 at 09:29; Status DC Diphenhydramine HCl (Benadryl) 25 mg 1X PRN PRN IV ITCHING Last administered on 01/31/17 18:05; Start 01/31/17 at 09:30; Stop 02/01/17 at 09:29; Status DC Diphenhydramine HCl (Benadryl) 25 mg 1X PRN PRN IV ITCHING; Start 01/31/17 at 09:30; Stop 02/01/17 at 09:29; Status DC Info (PHARMACY MONITORING -- do not chart) 1 each PRN DAILY PRN MC SEE COMMENTS ; Start 01/31/17 at 09:30; Status UNV Diphenhydramine HCl (Benadryl) 50 mg PRN Q6HRS PRN IVP ITCHING Last administered on 02/07/17 10:24; Start 02/01/17 at 15:15 Fentanyl Citrate (Fentanyl 2ml Vial) 25 mcg PRN Q4HRS PRN IV MODERATE PAIN; Start 02/01/17 at 15:15; Stop 02/06/17 at 10:21; Status DC Diphenhydramine HCl (Benadryl) 25 mg 1X PRN PRN IV ITCHING; Start 02/02/17 at 09:30; Stop 02/03/17 at 09:29; Status DC Info (PHARMACY MONITORING -- do not chart) 1 each PRN DAILY PRN MC SEE COMMENTS ; Start 02/02/17 at 09:30; Stop 02/03/17 at 09:05; Status DC Info (PHARMACY MONITORING -- do not chart) 1 each PRN DAILY PRN MC SEE COMMENTS ; Start 02/02/17 at 09:30; Status Cancel Throat Lozenges (Cepacol Sore Throat Lozenge) 1 estelita PRN Q2HRS PRN PO SORE THROAT Last administered on 02/03/17 20:49; Start 02/03/17 at 07:15; Stop 02/05 at 13:28; Status DC Alprazolam (Xanax) 0.25 mg PRN Q6HRS PRN PO ANXIETY / AGITATION, 1ST CHOIC Last administered on 02/03/17 14:15; Start 02/03/17 at 12:15; Stop 02/06/17 at 10:21; Status DC Alprazolam 0.5 mg 0.5 mg PRN Q6HRS PRN PO ANXIETY / AGITATION, 2ND CHOIC Last administered on 02/06/17 08:13; Start 02/03/17 at 12:30; Stop 02/06/17 at 10:21 ; Status DC Vancomycin HCl 250 ml @ 250 mls/hr 1X PREOP ONCE IV Last administered on 02/05 08:33; Start 02/05/17 at 06:00; Stop 02/05/17 at 06:59; Status DC Ondansetron HCl (Zofran) 4 mg PRN Q6HRS PRN IV Nausea; Start 02/05/17 at 07:00 ; Stop 02/05/17 at 13:28; Status DC Fentanyl Citrate (Fentanyl 2ml Vial) 25 mcg PRN Q5MIN PRN IV MILD PAIN; Start 02/05/17 at 07:00; Stop 02/05/17 at 22:13; Status DC Fentanyl Citrate (Fentanyl 2ml Vial) 50 mcg PRN Q5MIN PRN IV MODERATE PAIN; Start 02/05/17 at 07:00; Stop 02/05/17 at 22:13; Status DC Morphine Sulfate 1 mg 1 mg PRN Q10MIN PRN IV SEVERE PAIN Last administered on 19:01; Start 02/05/17 at 07:00; Stop 02/06/17 at 06:59; Status DC Lactated Ringer's (Iv Lactated Ringers) 1,000 ml @ 0 mls/hr Q0M IV Last administered on 02/05/17 07:32; Start 02/05/17 at 07:00; Stop 02/05/17 at 13:28 ; Status DC Lidocaine HCl 2 ml 1X PRN PRN ID IV START; Start 02/05/17 at 07:00; Stop at 06:59; Status DC Hydromorphone HCl (Dilaudid) 0.5 mg PRN Q10MIN PRN IV SEVERE PAIN, Second choice; Start 02/05/17 at 07:00; Stop 02/06/17 at 06:59; Status DC Prochlorperazine Edisylate 5 mg 5 mg PACU PRN PRN IV NAUSEA; Start 02/05/17 at 07:00; Stop 02/06/17 at 06:59; Status DC Sodium Chloride (Iv Sodium Chloride 0.9% 1000ml Bag) 1,000 ml @ 1,000 mls/hr Q1H PRN IV hypotension; Start 02/04/17 at 09:55; Stop 02/04/17 at 15:54; Status DC Info (PHARMACY MONITORING -- do not chart) 1 each PRN DAILY PRN MC SEE COMMENTS ; Start 02/04/17 at 10:00 Throat Lozenges 1 estelita 1 estelita PRN Q2HRS PRN PO SORE THROAT Last administered on 06:01; Start 02/04/17 at 11:00 Magnesium Sulfate/ Dextrose 50 ml @ 25 mls/hr PRN DAILY PRN IV for Mag < 1.7 on am labs; Start 02/04/17 at 11:30; Stop 02/05/17 at 13:28; Status DC Potassium Chloride 70 meq/ Sodium Bicarbonate 12.5 meq/Lidocaine HCl 24 ml/ Parenteral Electrolytes 571.5 ml @ 571.5 mls/ hr 1X PERIOP ONCE IRR Last administered on 02/05/17 09:42; Start 02/05/17 at 06:00; Stop 02/05/17 at 06:59 ; Status DC Potassium Chloride 15 meq/ Sodium Bicarbonate 12.5 meq/Parenteral Electrolytes 520 ml @ 520 mls/hr 1X PERIOP ONCE IRR Last administered on 02/05/17 09:42; Start 02/05/17 at 06:00; Stop 02/05/17 at 06:59; Status DC Heparin Sodium (Porcine)/ Lactated Ringer's (Iv Lactated Ringers) 1,020 ml @ 1, 020 mls/hr 1X PERIOP ONCE IRR Last administered on 02/05/17 08:42; Start at 06:00; Stop 02/05/17 at 06:59; Status DC Aminocaproic Acid (Amicar) 5,000 mg STK-MED ONCE IV ; Start 02/05/17 at 06:13; Stop 02/05/17 at 06:14; Status DC Etomidate (Amidate) 20 mg STK-MED ONCE IV ; Start 02/05/17 at 06:13; Stop at 06:14; Status DC Lidocaine HCl 100 mg STK-MED ONCE .ROUTE ; Start 02/05/17 at 06:13; Stop at 06:14; Status DC Rocuronium [place] (Zemuron) 100 mg STK-MED ONCE .ROUTE ; Start 02/05/17 at 06: 14; Stop 02/05/17 at 06:15; Status DC Ephedrine Sulfate 50 mg STK-MED ONCE IV ; Start 02/05/17 at 06:14; Stop at 06:15; Status DC Phenylephrine HCl (Alexis-Synephrine Inj) 10 mg STK-MED ONCE .ROUTE ; Start at 06:14; Stop 02/05/17 at 06:15; Status DC Sufentanil Citrate (Sufenta) 100 mcg STK-MED ONCE .ROUTE ; Start 02/05/17 at 06: 14; Stop 02/05/17 at 06:15; Status DC Midazolam HCl (Versed) 2 mg STK-MED ONCE .ROUTE ; Start 02/05/17 at 06:14; Stop 02/05/17 at 06:15; Status DC Fentanyl Citrate 100 mcg 100 mcg STK-MED ONCE .ROUTE ; Start 02/05/17 at 06:15; Stop 02/05/17 at 06:16; Status DC Nitroglycerin/ Dextrose (Nitroglycerin Drip) 250 ml @ As Directed STK-MED ONCE IV ; Start 02/05/17 at 06:15; Stop 02/05/17 at 06:16; Status DC Heparin Sodium (Porcine) 30,000 unit STK-MED ONCE .ROUTE ; Start 02/05/17 at 06: 16; Stop 02/05/17 at 06:17; Status DC Cellulose 1 each STK-MED ONCE .ROUTE Last administered on 02/05/17 08:42; Start 02/05/17 at 06:42; Stop 02/05/17 at 06:43; Status DC Papaverine HCl 60 mg STK-MED ONCE .ROUTE Last administered on 02/05/17 08:42; Start 02/05/17 at 06:42; Stop 02/05/17 at 06:43; Status DC Aspirin (Aspirin) 300 mg STK-MED ONCE .ROUTE Last administered on 02/05/17 12: 58; Start 02/05/17 at 06:42; Stop 02/05/17 at 06:43; Status DC Mineral Oil (Muri-Lube) 10 ml STK-MED ONCE MC Last administered on 02/05/17 12 :10; Start 02/05/17 at 06:43; Stop 02/05/17 at 06:44; Status DC Sodium Chloride 50 ml 50 ml STK-MED ONCE IJ Last administered on 02/05/17 08: 42; Start 02/05/17 at 06:43; Stop 02/05/17 at 06:44; Status DC Mannitol (Mannitol Iv Soln) 500 ml @ 0 mls/hr 1X ONCE IV ; Start 02/05/17 at 07 :15; Stop 02/05/17 at 07:16; Status DC Sufentanil Citrate (Sufenta) 100 mcg STK-MED ONCE .ROUTE ; Start 02/05/17 at 08: 01; Stop 02/05/17 at 08:02; Status DC Midazolam HCl (Versed) 5 mg STK-MED ONCE .ROUTE ; Start 02/05/17 at 09:10; Stop 02/05/17 at 09:11; Status DC Heparin Sodium (Porcine) 10,000 unit STK-MED ONCE .ROUTE ; Start 02/05/17 at 09: 15; Stop 02/05/17 at 09:16; Status DC Rocuronium [place] (Zemuron) 100 mg STK-MED ONCE .ROUTE ; Start 02/05/17 at 09: 43; Stop 02/05/17 at 09:44; Status DC Heparin Sodium (Porcine) 10,000 unit STK-MED ONCE .ROUTE ; Start 02/05/17 at 10: 57; Stop 02/05/17 at 10:58; Status DC Protamine Sulfate 250 mg STK-MED ONCE IV ; Start 02/05/17 at 11:08; Stop at 11:09; Status DC Protamine Sulfate 50 mg STK-MED ONCE IV ; Start 02/05/17 at 11:09; Stop at 11:10; Status DC Protamine Sulfate 50 mg STK-MED ONCE IV ; Start 02/05/17 at 11:09; Stop at 11:10; Status DC Protamine Sulfate 50 mg STK-MED ONCE IV ; Start 02/05/17 at 11:09; Stop at 11:10; Status DC Isoflurane (Isoflurane) 90 ml STK-MED ONCE IH ; Start 02/05/17 at 11:34; Stop at 11:35; Status DC Heparin Sodium (Porcine) 10,000 unit STK-MED ONCE .ROUTE ; Start 02/05/17 at 12: 59; Stop 02/05/17 at 13:00; Status DC Lidocaine HCl (Xylocaine-Mpf 1% Vial) 5 ml STK-MED ONCE .ROUTE ; Start 02/05/17 at 12:59; Stop 02/05/17 at 13:00; Status DC Aminocaproic Acid (Amicar) 5,000 mg STK-MED ONCE IV ; Start 02/05/17 at 12:59; Stop 02/05/17 at 13:00; Status DC Magnesium Sulfate 5 gm STK-MED ONCE .ROUTE ; Start 02/05/17 at 12:59; Stop 02/05 at 13:00; Status DC Calcium Chloride 1000 mg 1,000 mg STK-MED ONCE IV ; Start 02/05/17 at 12:59; Stop 02/05/17 at 13:00; Status DC Albumin Human (Albuminar) 200 ml @ As Directed STK-MED ONCE IV ; Start at 12:59; Stop 02/05/17 at 13:00; Status DC Heparin Sodium (Porcine) 66420 unit 30,000 unit STK-MED ONCE .ROUTE ; Start at 12:59; Stop 02/05/17 at 13:00; Status DC Lactated Ringer's 1,000 ml @ 30 mls/hr Q24H IV Last administered on 02/06/17t 12:37; Start 02/05/17 at 13:15; Stop 02/07/17 at 17:31; Status DC Albumin Human 250 ml @ 60 mls/hr PRN Q4HRS PRN IV SEE I/O RECORD Last administered on 02/05/17t 17:20; Start 02/05/17 at 13:15; Stop 02/06/17 at 16:09 ; Status DC Vancomycin HCl 1.5 gm/Sodium Chloride 500 ml @ 250 mls/hr Q12H IV ; Start 02/05 at 13:30; Stop 02/06/17 at 15:29; Status UNV Insulin Human Regular/Sodium Chloride (Novolin R Vial/ Iv Normal Saline 150ml) 151.5 ml @ 0 mls/hr CONT PRN PRN IV SEE I/O RECORD; Start 02/05/17 at 13:15; Stop 02/07/17 at 17:31; Status DC Dextrose 25 gm 25 gm PRN Q15MIN PRN IV LOW BLOOD SUGAR; Start 02/05/17 at 13:15 Nitroglycerin/ Dextrose 250 ml @ 0 mls/hr CONT PRN PRN IV SEE I/O RECORD; Start 02/05/17 at 13:15; Stop 02/07/17 at 17:31; Status DC Amiodarone HCl 900 mg/Dextrose 518 ml @ 33.33 mls/ hr CONT PRN PRN IV RUNS OF VT; Start 02/05/17 at 13:15; Stop 02/07/17 at 17:31; Status DC Amiodarone HCl 150 mg/Dextrose 103 ml @ 200 mls/hr 1X PRN PRN IV VT; Start at 13:15; Stop 02/07/17 at 17:31; Status DC Magnesium Sulfate/ Dextrose (Magnesium Sulfate PREMIX 1GM) 100 ml @ 100 mls/hr PRN DAILY PRN IV FOR MAG < 2.2; Start 02/05/17 at 13:15 Famotidine (Pepcid) 20 mg Q48H IVP Last administered on 02/05/17 20:37; Start 02/05/17 at 21:00; Stop 02/06/17 at 15:11; Status DC Ondansetron HCl (Zofran) 4 mg PRN Q4HRS PRN IV NAUSEA/VOMITING Last administered on 02/05/17 20:02; Start 02/05/17 at 13:15 Morphine Sulfate 2 mg PRN Q1HR PRN IV PAIN Last administered on 02/07/17 01:32 ; Start 02/05/17 at 13:15; Stop 02/07/17 at 08:19; Status DC Acetaminophen (Tylenol) 650 mg PRN Q4HRS PRN PO MILD PAIN / TEMP; Start at 13:15 Acetaminophen (Tylenol) 650 mg PRN Q4HRS PRN AK MILD PAIN / TEMP; Start at 13:15 Meperidine HCl 12.5 mg 12.5 mg PRN Q15MIN PRN IV SHIVERING; Start 02/05/17 at 13:15; Stop 02/06/17 at 10:21; Status DC Propofol (Diprivan) 100 ml @ 0 mls/hr CONT PRN PRN IV POSTOP SEDATION UNTIL EXTUBATE Last administered on 02/05/17 17:23; Start 02/05/17 at 13:15; Stop at 22:13; Status DC Senna/Docusate Sodium (Senna Plus) 1 tab BID PO Last administered on 02/07/17 20:45; Start 02/05/17 at 21:00 Bisacodyl (Dulcolax Supp) 10 mg PRN DAILY PRN AK NO BOWEL MOVEMENT; Start 02/05 at 13:15 Chlorhexidine Gluconate (Peridex) 15 ml BID MM Last administered on 02/05/17 20:37; Start 02/05/17 at 21:00; Stop 02/05/17 at 22:13; Status DC Aspirin (Ecotrin) 325 mg DAILYWBKFT PO Last administered on 02/07/17 14:03; Start 02/06/17 at 08:00 Aspirin (Aspirin) 300 mg PRN DAILY PRN AK IF UNABLE TO TAKE PO; Start 02/05/17 at 13:15; Stop 02/07/17 at 17:31; Status DC Albuterol Sulfate (Ventolin Neb Soln) 2.5 mg PRN Q4HRS PRN NEB SHORTNESS OF BREATH Last administered on 02/06/17 00:15; Start 02/05/17 at 13:15 Metoprolol Tartrate 25 mg 25 mg BID PO ; Start 02/06/17 at 09:00; Stop 02/06/17 at 17:16; Status DC Clevidipine (Cleviprex) 100 ml @ 0 mls/hr CONT PRN IV PER PROTOCOL Last administered on 02/05/17 17:25; Start 02/05/17 at 13:15; Stop 02/07/17 at 17:31 ; Status DC Oxycodone/ Acetaminophen (Percocet 5/325) 1 tab PRN Q4HRS PRN PO MILD PAIN Last administered on 02/08/17 05:53; Start 02/05/17 at 13:15 Oxycodone/ Acetaminophen (Percocet 5/325) 2 tab PRN Q4HRS PRN PO MODERATE PAIN , SEVERE PAIN Last administered on 02/07/17 20:53; Start 02/05/17 at 13:15 Vecuronium [place] 10 mg 10 mg STK-MED ONCE IV ; Start 02/05/17 at 13:32; Stop 02/05/17 at 13:33; Status DC Vancomycin HCl/ Sodium Chloride (Iv Sodium Chloride 0.9% 100ml) 100 ml @ 100 mls/hr 1X ONCE IV Last administered on 02/06/17 15:00; Start 02/06/17 at 16: 00; Stop 02/06/17 at 16:59; Status DC Dextrose 25 gm 1X ONCE IV ; Start 02/06/17 at 07:30; Stop 02/06/17 at 07:31; Status DC Calcium Chloride 2,000 mg 1X ONCE IV ; Start 02/06/17 at 07:30; Stop 02/06/17 at 07:31; Status DC Insulin Human Regular (Novolin R Vial) 10 unit 1X ONCE IV ; Start 02/06/17 at 07:30; Stop 02/06/17 at 07:31; Status DC Vecuronium [place] 10 mg 10 mg STK-MED ONCE IV ; Start 02/05/17 at 13:30; Stop 02/06/17 at 07:51; Status DC Sodium Chloride 1,000 ml @ 1,000 mls/hr Q1H PRN IV hypotension; Start 02/06/17 at 08:26; Stop 02/06/17 at 14:25; Status DC Albumin Human (Albuminar) 200 ml @ 200 mls/hr 1X PRN PRN IV Hypotension Last administered on 02/06/17 09:30; Start 02/06/17 at 08:30; Stop 02/06/17 at 14:29 ; Status DC Acetaminophen (Tylenol) 500 mg 1X PRN PRN PO MILD PAIN / TEMP; Start 02/06/17 at 08:30; Stop 02/07/17 at 08:29; Status DC Diphenhydramine HCl (Benadryl) 25 mg 1X PRN PRN IV ITCHING; Start 02/06/17 at 08:30; Stop 02/07/17 at 08:29; Status DC Diphenhydramine HCl (Benadryl) 25 mg 1X PRN PRN IV ITCHING; Start 02/06/17 at 08:30; Stop 02/07/17 at 08:29; Status DC Info (PHARMACY MONITORING -- do not chart) 1 each PRN DAILY PRN MC SEE COMMENTS ; Start 02/06/17 at 08:30; Stop 02/06/17 at 15:09; Status DC Clonazepam (Klonopin) 0.5 mg PRN Q6HRS PRN PO ANXIETY / AGITATION; Start at 10:15 Famotidine 20 mg 20 mg Q48H PO Last administered on 02/07/17t 20:55; Start at 21:00 Albumin Human (Plasmanate) 250 ml @ 60 mls/hr PRN Q4HRS PRN IV SEE I/O RECORD ; Start 02/06/17 at 16:09 Alprazolam (Xanax) 0.5 mg PRN Q8HRS PRN PO ANXIETY / AGITATION Last administered on 02/07/17 23:27; Start 02/06/17 at 22:15 Docusate Sodium (Colace) 100 mg DAILY PO Last administered on 02/07/17 14:03; Start 02/07/17 at 09:00 Morphine Sulfate 4 mg PRN Q2HR PRN IV PAIN; Start 02/07/17 at 13:15 Info (PHARMACY MONITORING -- do not chart) 1 each PRN DAILY PRN MC SEE COMMENTS ; Start 02/07/17 at 11:30; Stop 02/07/17 at 11:30; Status DC Ketorolac Tromethamine (Toradol) 15 mg 1X ONCE IV Last administered on 12:00; Start 02/07/17 at 12:00; Stop 02/07/17 at 12:01; Status DC Metoprolol Tartrate 12.5 mg 12.5 mg BID PO ; Start 02/07/17 at 21:00 Magnesium Sulfate/ Dextrose (Magnesium Sulfate PREMIX 2GM) 50 ml @ 25 mls/hr 1X ONCE IV Last administered on 02/07/17 18:30; Start 02/07/17 at 18:30; Stop 02/07/17 at 20:29; Status DC Darbepoetin Percy (Aranesp) 100 mcg WEEKLYHS SQ ; Start 02/09/17 at 21:00 Active Scripts Active Clopidogrel (Clopidogrel Bisulfate) 75 Mg Tablet 1 Tab PO DAILY Isosorbide Mononitrate Er (Isosorbide Mononitrate) 30 Mg Tab.er.24h 30 Mg PO DAILY Flomax (Tamsulosin Hcl) 0.4 Mg Cap.er.24h 0.4 Mg PO QHS Reported Hydrocodone-Apap 5-325 (Hydrocodone Bit/Acetaminophen) 1 Each Tablet 1 Tab PO PRN Q6HRS PRN Furosemide 80 Mg Tablet 1 Tab PO BID Nephro-Chilo Tablet (Folic Acid/Vitamin B Comp W-C) 0.8 Mg Tablet 1 Tab PO DAILY Paroxetine Hcl 20 Mg Tablet 40 Mg PO DAILY Tums (Calcium Carbonate) 200 Mg Tab.chew 800 Mg PO TIDAC Omeprazole Magnesium 20 Mg Capsule.dr 20 Mg PO DAILY Clonidine Hcl 0.3 Mg Tablet 1 Tab PO DAILY Hydralazine Hcl 100 Mg Tablet 100 Mg PO TID LAST DOSE: 02/24/16 AFTERNOON NEXT DOSE: 02/24/16 BEDTIME Amlodipine Besylate 10 Mg Tablet 10 Mg PO BID LAST DOSE: 02/24/16 AM NEXT DOSE: 02/25/16 AM Xanax (Alprazolam) 0.5 Mg Tablet 0.5 Mg PO Q6HRS PRN LAST DOSE: 02/23/16 BEDTIME NEXT DOSE: 02/24/16 BEDTIME Losartan Potassium 100 Mg Tablet 100 Mg PO HS LAST DOSE: 02/23/16 BEDTIME NEXT DOSE: 02/24/16 BEDTIME Metoprolol Tartrate 100 Mg Tablet 100 Mg PO BID LAST DOSE: 02/24/16 AM NEXT DOSE: 02/24/16 BEDTIME Lillian Chewable (Aspirin) 81 Mg Tab.chew 324 Mg PO DAILY LAST DOSE: 02/24/16 AM NEXT DOSE: 02/25/16 AM Vitals/I & O Vital Sign - Last 24 Hours 02/07/17 02/07/17 02/07/17 02/07/17 11:00 12:00 12:00 14:00 Pulse 80 76 78 Resp 22 20 B/P 133/72 128/55 104/48 Pulse Ox 95 95 99 O2 Delivery Nasal Cannula Nasal Cannula Nasal Cannula Nasal Cannula O2 Flow Rate 4.0 4.0 4.0 3.0 02/07/17 02/07/17 02/07/17 02/07/17 15:00 16:00 16:00 17:00 Temp 98.0 98.0 Pulse 80 76 72 Resp 16 14 14 B/P 115/36 93/47 104/41 Pulse Ox 97 99 98 O2 Delivery Nasal Cannula Nasal Cannula Nasal Cannula Nasal Cannula O2 Flow Rate 3.0 4.0 3.0 3.0 02/07/17 02/07/17 02/07/17 02/07/17 19:00 20:00 20:00 20:53 Pulse 72 84 Resp 16 16 16 B/P 103/54 101/33 Pulse Ox 98 91 98 O2 Delivery Nasal Cannula Nasal Cannula Nasal Cannula Nasal Cannula O2 Flow Rate 3.0 3.0 3.0 3.0 02/07/17 02/07/17 02/07/17 02/07/17 21:00 21:40 21:50 21:50 Pulse 76 75 74 Resp 20 16 16 B/P 89/56 89/56 Pulse Ox 98 97 94 O2 Delivery Nasal Cannula Nasal Cannula Nasal Cannula O2 Flow Rate 3.0 3.0 3.0 02/07/17 02/07/17 02/07/17 02/07/17 22:00 23:00 23:59 23:59 Temp 97.9 97.9 Pulse 76 73 72 Resp 16 18 B/P 117/54 114/55 119/49 Pulse Ox 98 95 99 O2 Delivery Nasal Cannula Nasal Cannula Nasal Cannula Nasal Cannula O2 Flow Rate 3.0 3.0 3.0 3.0 02/08/17 02/08/17 02/08/17 02/08/17 01:00 02:00 03:00 04:00 Pulse 74 67 71 73 Resp 16 B/P 118/45 86/44 111/59 101/43 Pulse Ox 94 94 98 97 O2 Delivery Nasal Cannula Nasal Cannula Nasal Cannula Nasal Cannula O2 Flow Rate 3.0 3.0 3.0 3.0 02/08/17 02/08/17 02/08/17 02/08/17 04:30 04:30 05:00 05:53 Temp 97.4 97.4 Pulse 71 Resp 16 16 B/P 114/36 Pulse Ox 95 95 O2 Delivery Nasal Cannula Nasal Cannula Nasal Cannula O2 Flow Rate 3.0 3.0 2.0 02/08/17 02/08/17 02/08/17 02/08/17 06:00 06:55 07:00 08:00 Pulse 73 69 78 Resp 16 16 16 12 B/P 123/54 123/54 132/64 Pulse Ox 97 99 99 100 O2 Delivery Nasal Cannula Nasal Cannula Nasal Cannula Nasal Cannula O2 Flow Rate 3.0 3.0 3.0 2.0 02/08/17 02/08/17 08:00 09:43 Temp 97.3 97.3 Pulse 84 Resp 16 B/P 113/63 O2 Delivery Nasal Cannula O2 Flow Rate 1.5 Intake and Output 02/07/17 02/07/17 02/08/17 15:00 23:00 07:00 Intake Total 100 ml 245 ml 300 ml Output Total 200 ml 50 ml Balance -100 ml 195 ml 300 ml Nutrition Consultation Dietary Evaluation: Recommendations by RD: Increase Calorie Intake Comments: Continue to encourage diet compliance to the cardiac/renal diets Intake 25% of meals, does not meet nutrition needs. Rec. add novasource renal BID until intake improves (475 calories/22 grams protein) Expected Outcomes/Goals: meet 75% estimated nutrition needs Malnutrition Findings: Reduced Label Paster Strength: N/A Weight Status: Overweight ARSALAN ESCAMILLA MD Feb 08, 2017 10:06
[2017-02-08] MEDS: SENNOSIDES/DOCUSATE 8.6/50MG TABLET. PO SCH ×2 (10:21→21:33)
[2017-02-08] MEDS: CALCIUM CARBONATE 500 MG TAB.CHEW PO SCH ×3 (10:21→16:30)
[2017-02-08] MEDS: PANTOPRAZOLE 40 MG TABLET. PO SCH (10:21)
[2017-02-08] MEDS: ALPRAZOLAM 0.5 MG TABLET PO PRN ×2 (10:21→21:33)
[2017-02-08] MEDS: PAROXETINE 20 MG TABLET. PO SCH (10:22)
[2017-02-08] MEDS: ASPIRIN ENTERIC COATED 325 MG TABLET.DR. PO SCH (10:22)
[2017-02-08] MEDS: DOCUSATE SODIUM 100 MG CAPSULE PO SCH (10:23)
[2017-02-08] MEDS: METOPROLOL TART IMMED RELEASE 25 MG TABLET PO SCH ×2 (10:23→21:33)
[2017-02-08] MEDS: FOLIC/VIT B COMP W-C (RENAL) TABLET. PO SCH (10:24)
--- NOTE | 2017-02-08 11:14 | PDOC ---
Subjective: Subjective: Feeling much better. Denies bleeding. Objective: Objective: Per RN - better today, eating w/o issue, up walking, less pain, drain removed last night, transfusing. Vital Signs: Vital Signs Date Time Temp Pulse Resp B/P Pulse Ox O2 Delivery O2 Flow Rate FiO2 02/08/17 10:23 80 144/56 02/08/17 10:10 20 02/08/17 09:43 97.3 97.3 02/08/17 08:00 Nasal Cannula 1.5 02/08/17 08:00 100 Labs: Laboratory Tests Test 02/08/17 06:00 White Blood Count 7.7x10^3/uL Red Blood Count 2.21x10^6/uL Hemoglobin 6.7g/dL Hematocrit 20.5% Mean Corpuscular Volume 93fL Mean Corpuscular Hemoglobin 31pg Mean Corpuscular Hemoglobin Concent 33g/dL Red Cell Distribution Width 15.1% Platelet Count 155x10^3/uL Sodium Level 139mmol/L Potassium Level 3.8mmol/L Chloride Level 100mmol/L Carbon Dioxide Level 29mmol/L Anion Gap 10 Blood Urea Nitrogen 25mg/dL Creatinine 5.7mg/dL Estimated GFR (Cockcroft-Gault) 10.2 Glucose Level 114mg/dL Calcium Level 8.8mg/dL Phosphorus Level 3.8mg/dL Magnesium Level 2.5mg/dL Albumin 3.0g/dL Imaging: CXR 02/08/17 IMPRESSION: Interval improvement. PE: GEN: NAD, up to chair LUNGS: clear anteriorly HEART: S1S2, dressing ABD: +BS, S/ND/NT NEURO/PSYCH: A & O 3 A/P: S/p CABG -chest pain much better today Recurrent pancreatitis - lipase WNL GERD, h/o PUD -on PPI, H2 beryl, Tums Anemia, ESRD on HD -- Improved today. Continue same per GI. TOMMY SALVADOR Feb 08, 2017 11:14 NGOZI SANCHEZ MD Feb 08, 2017 11:25
[2017-02-08] MEDS ORDERED: BISACODYL 10 MG SUPP.RECT. PR PRN (13:11)
--- NOTE | 2017-02-08 13:56 | PDOC ---
PROGRESS NOTES Subjective Subjective Pt improving Objective Objective Vital Signs Date Time Temp Pulse Resp B/P Pulse Ox O2 Delivery O2 Flow Rate FiO2 02/08/17 11:57 98.4 74 16 126/59 98.4 02/08/17 08:00 Nasal Cannula 1.5 02/08/17 08:00 100 Intake and Output 02/08/17 07:00 Intake Total 645 ml Output Total 250 ml Balance 395 ml Intake Oral 595 ml IV Total 50 ml Output Urine Total 0 ml Drainage Total 250 ml Physical Exam Physical Exam No changes in cardiac exam Assessment Assessment Problems Medical Problems: (1) Flank pain Status: Acute (2) Pancreatitis Status: Acute (3) Unstable angina pectoris Status: Acute Plan Plan of Care POD #3 s/p [id number] Extubated 02/06/17 Agree with current plan Received 1unit of pRBC PT/OT as tolerated Cont cardiac monitoring per floor protocol Labs in am Comment Review of Relevant I have reviewed the following items dionte (where applicable) has been applied. Labs Laboratory Tests Test 02/06/17 17:22 02/06/17 22:17 02/07/17 05:35 02/08/17 06:00 Glucose (Fingerstick) 115mg/dL (70-99) 121mg/dL (70-99) White Blood Count 9.1x10^3/uL (4.0-11.0) 7.7x10^3/uL (4.0-11.0) Red Blood Count 2.54x10^6/uL (4.30-5.70) 2.21x10^6/uL (4.30-5.70) Hemoglobin 7.7g/dL (13.0-17.5) 6.7g/dL (13.0-17.5) Hematocrit 23.5% (39.0-53.0) 20.5% (39.0-53.0) Mean Corpuscular Volume 93fL (79-100) 93fL (79-100) Mean Corpuscular Hemoglobin 30pg (25-35) 31pg (25-35) Mean Corpuscular Hemoglobin Concent 33g/dL (31-37) 33g/dL (31-37) Red Cell Distribution Width 14.9% (11.5-14.5) 15.1% (11.5-14.5) Platelet Count 136x10^3/uL (140-400) 155x10^3/uL (140-400) Sodium Level 141mmol/L (136-145) 139mmol/L (136-145) Potassium Level 4.0mmol/L (3.5-5.1) 3.8mmol/L (3.5-5.1) Chloride Level 97mmol/L (98-107) 100mmol/L (98-107) Carbon Dioxide Level 31mmol/L (21-32) 29mmol/L (21-32) Anion Gap 13 (6-14) 10 (6-14) Blood Urea Nitrogen 22mg/dL (8-26) 25mg/dL (8-26) Creatinine 6.0mg/dL (0.7-1.3) 5.7mg/dL (0.7-1.3) Estimated GFR (Cockcroft-Gault) 9.6 10.2 Glucose Level 117mg/dL (70-99) 114mg/dL (70-99) Calcium Level 9.1mg/dL (8.5-10.1) 8.8mg/dL (8.5-10.1) Phosphorus Level 4.9mg/dL (2.6-4.7) 3.8mg/dL (2.6-4.7) Magnesium Level 1.9mg/dL (1.8-2.4) 2.5mg/dL (1.8-2.4) Albumin 3.4g/dL (3.4-5.0) 3.0g/dL (3.4-5.0) Lipase 178U/L (73-393) Test 02/08/17 12:14 Glucose (Fingerstick) 121mg/dL (70-99) Laboratory Tests Test 02/08/17 06:00 02/08/17 12:14 White Blood Count 7.7x10^3/uL (4.0-11.0) Red Blood Count 2.21x10^6/uL (4.30-5.70) Hemoglobin 6.7g/dL (13.0-17.5) Hematocrit 20.5% (39.0-53.0) Mean Corpuscular Volume 93fL (79-100) Mean Corpuscular Hemoglobin 31pg (25-35) Mean Corpuscular Hemoglobin Concent 33g/dL (31-37) Red Cell Distribution Width 15.1% (11.5-14.5) Platelet Count 155x10^3/uL (140-400) Sodium Level 139mmol/L (136-145) Potassium Level 3.8mmol/L (3.5-5.1) Chloride Level 100mmol/L (98-107) Carbon Dioxide Level 29mmol/L (21-32) Anion Gap 10 (6-14) Blood Urea Nitrogen 25mg/dL (8-26) Creatinine 5.7mg/dL (0.7-1.3) Estimated GFR (Cockcroft-Gault) 10.2 Glucose Level 114mg/dL (70-99) Calcium Level 8.8mg/dL (8.5-10.1) Phosphorus Level 3.8mg/dL (2.6-4.7) Magnesium Level 2.5mg/dL (1.8-2.4) Albumin 3.0g/dL (3.4-5.0) Glucose (Fingerstick) 121mg/dL (70-99) Microbiology 02/03/17 Throat Culture - Final, Complete 02/03/17 - Final, Complete Medications Current Medications Hydromorphone HCl (Dilaudid) 1 mg 1X ONCE IV Last administered on 01/28/17 23 :57; Start 01/28/17 at 23:30; Stop 01/28/17 at 23:31; Status DC Ondansetron HCl 4 mg 4 mg 1X ONCE IV Last administered on 01/28/17 23:57; Start 01/28/17 at 23:30; Stop 01/28/17 at 23:31; Status DC Sodium Chloride (Iv Sodium Chloride 0.9% 500ml Bag) 500 ml @ 0 mls/hr 1X ONCE IV Last administered on 01/28/17 23:39; Start 01/28/17 at 23:30; Stop at 23:31; Status DC Diphenhydramine HCl (Benadryl) 50 mg 1X ONCE IVP Last administered on 00:29; Start 01/29/17 at 00:30; Stop 01/29/17 at 00:31; Status DC Diphenhydramine HCl (Benadryl) 50 mg STK-MED ONCE .ROUTE ; Start 01/29/17 at 00: 26; Stop 01/29/17 at 00:27; Status DC Morphine Sulfate 4 mg 1X ONCE IV Last administered on 01/29/17 03:55; Start 01/29/17 at 02:15; Stop 01/29/17 at 02:16; Status DC Ondansetron HCl (Zofran) 4 mg PRN Q8HRS PRN IV NAUSEA/VOMITING; Start 01/29/17 at 03:00; Stop 01/30/17 at 02:59; Status DC Morphine Sulfate 4 mg 4 mg PRN Q2HR PRN IV PAIN Last administered on 01/29/17 09:59; Start 01/29/17 at 03:00; Stop 01/29/17 at 11:47; Status DC Sodium Chloride (Iv Sodium Chloride 0.9% 1000ml Bag) 1,000 ml @ 50 mls/hr Q20H IV Last administered on 01/30/17 07:28; Start 01/29/17 at 02:12; Stop at 02:11; Status DC Alprazolam (Xanax) 0.5 mg PRN Q6HRS PRN PO ANXIETY / AGITATION Last administered on 02/03/17 07:45; Start 01/29/17 at 11:30; Stop 02/03/17 at 12:13 ; Status DC Amlodipine Besylate (Norvasc) 10 mg BID PO Last administered on 02/04/17 20:55 ; Start 01/29/17 at 12:00; Stop 02/06/17 at 17:20; Status DC Aspirin (Children'S Aspirin) 324 mg DAILY PO ; Start 01/29/17 at 12:00; Stop at 18:32; Status DC Calcium Carbonate/ Glycine (Tums) 800 mg TIDAC PO Last administered on 10:21; Start 01/29/17 at 11:30 Clonidine HCl (Catapres) 0.3 mg DAILY PO Last administered on 02/04/17 14:59; Start 01/30/17 at 09:00; Stop 02/06/17 at 08:54; Status DC Clopidogrel Bisulfate (Plavix) 75 mg DAILY PO ; Start 01/29/17 at 12:00; Stop at 09:45; Status DC Vitamin B Complex/ Vitamin C (Nephro-Chilo) 1 tab DAILY PO Last administered on 02/08/17 10:24; Start 01/29/17 at 12:00 Furosemide (Lasix) 80 mg [id number] PO Last administered on 02/04/17 15:11; Start 01/29/17 at 14:00; Stop 02/06/17 at 08:54; Status DC Acetaminophen/ Hydrocodone Bitart (Lortab 5/325) 1 tab PRN Q6HRS PRN PO PAIN; Start 01/29/17 at 11:30; Stop 01/29/17 at 18:58; Status DC Isosorbide Mononitrate (Imdur) 30 mg DAILY PO Last administered on 02/04/17 15 :01; Start 01/29/17 at 12:00; Stop 02/06/17 at 08:54; Status DC Paroxetine HCl (Paxil) 40 mg DAILY PO Last administered on 02/08/17 10:22; Start 01/29/17 at 12:00 Tamsulosin HCl (Flomax) 0.4 mg QHS PO Last administered on 02/07/17 20:44; Start 01/29/17 at 21:00 Hydralazine HCl (Apresoline) 100 mg TID PO Last administered on 02/04/17 20:54 ; Start 01/29/17 at 14:00; Stop 02/06/17 at 17:16; Status DC Losartan Potassium (Cozaar) 100 mg QHS PO Last administered on 02/04/17 20:56 ; Start 01/29/17 at 21:00; Stop 02/06/17 at 17:16; Status DC Metoprolol Tartrate (Lopressor) 100 mg BID PO Last administered on 02/05/17 06 :34; Start 01/29/17 at 12:00; Stop 02/05/17 at 13:28; Status DC Pantoprazole Sodium (Protonix) 40 mg DAILYAC PO Last administered on 02/08/17 10:21; Start 01/29/17 at 12:00 Darbepoetin Percy (Aranesp) 60 mcg [id number] SQ Last administered on 02/02/17 21 :15; Start 02/02/17 at 21:00; Stop 02/08/17 at 09:40; Status DC Morphine Sulfate 6 mg 6 mg PRN Q2HR PRN IV PAIN Last administered on 01/30/17 19:22; Start 01/29/17 at 11:45; Stop 02/01/17 at 15:20; Status DC Sodium Chloride (Iv Sodium Chloride 0.9% 1000ml Bag) 1,000 ml @ 1,000 mls/hr Q1H PRN IV hypotension; Start 01/29/17 at 12:55; Stop 01/29/17 at 18:54; Status DC Diphenhydramine HCl (Benadryl) 25 mg 1X PRN PRN IV ITCHING Last administered on 01/29/17 19:12; Start 01/29/17 at 13:00; Stop 01/30/17 at 12:59; Status DC Diphenhydramine HCl (Benadryl) 25 mg 1X PRN PRN IV ITCHING Last administered on 01/29/17 13:16; Start 01/29/17 at 13:00; Stop 01/30/17 at 12:59; Status DC Info (PHARMACY MONITORING -- do not chart) 1 each PRN DAILY PRN MC SEE COMMENTS ; Start 01/29/17 at 13:00; Status UNV Info (PHARMACY MONITORING -- do not chart) 1 each PRN DAILY PRN MC SEE COMMENTS ; Start 01/29/17 at 13:00; Stop 02/03/17 at 09:04; Status DC Nitroglycerin (Nitrostat) 0.4 mg STK-MED ONCE SL ; Start 01/29/17 at 16:55; Stop 01/29/17 at 16:56; Status DC Heparin Sodium (Porcine) 4000 unit 4,000 unit 1X ONCE IV Last administered on 01/29/17 17:37; Start 01/29/17 at 17:30; Stop 01/29/17 at 17:31; Status DC Heparin Sodium/ Sodium Chloride 500 ml @ As Directed STK-MED ONCE .ROUTE ; Start 01/29/17 at 17:54; Stop 01/29/17 at 17:55; Status DC Lidocaine HCl 20 ml STK-MED ONCE .ROUTE ; Start 01/29/17 at 17:54; Stop at 17:55; Status DC Iodixanol (Visipaque 320) 100 ml STK-MED ONCE .ROUTE ; Start 01/29/17 at 17:54; Stop 01/29/17 at 17:55; Status DC Metoprolol Tartrate (Lopressor) 5 mg STK-MED ONCE .ROUTE ; Start 01/29/17 at 18: 05; Stop 01/29/17 at 18:06; Status DC Fentanyl Citrate (Fentanyl 2ml Vial) 100 mcg STK-MED ONCE .ROUTE ; Start at 18:05; Stop 01/29/17 at 18:06; Status DC Midazolam HCl 2 mg 2 mg STK-MED ONCE .ROUTE ; Start 01/29/17 at 18:05; Stop at 18:06; Status DC Heparin Sodium/ Dextrose 500 ml @ As Directed STK-MED ONCE IV ; Start 01/29/17 at 18:18; Stop 01/29/17 at 18:19; Status DC Heparin Sodium (Porcine) 10,000 unit STK-MED ONCE .ROUTE ; Start 01/29/17 at 18: 18; Stop 01/29/17 at 18:19; Status DC Metoprolol Tartrate (Lopressor) 5 mg STK-MED ONCE .ROUTE ; Start 01/29/17 at 18: 25; Stop 01/29/17 at 18:26; Status DC Heparin Sodium/ Sodium Chloride 1,000 unit 1X ONCE IART Last administered on 18:51; Start 01/29/17 at 18:45; Stop 01/29/17 at 18:53; Status DC Heparin Sodium/ Sodium Chloride 1,000 unit 1X ONCE IART Last administered on 18:51; Start 01/29/17 at 18:45; Stop 01/29/17 at 18:53; Status DC Midazolam HCl (Versed) 1 mg 1X ONCE IV Last administered on 01/29/17 18:53; Start 01/29/17 at 18:45; Stop 01/29/17 at 18:53; Status DC Fentanyl Citrate (Fentanyl 2ml Vial) 50 mcg 1X ONCE IV Last administered on 18:53; Start 01/29/17 at 18:45; Stop 01/29/17 at 18:53; Status DC Iodixanol (Visipaque 320) 105 ml 1X ONCE IART Last administered on 01/29/17 18:52; Start 01/29/17 at 18:45; Stop 01/29/17 at 18:53; Status DC Heparin Sodium (Porcine) 4000 unit 4,000 unit 1X ONCE IV Last administered on 01/29/17 18:53; Start 01/29/17 at 18:45; Stop 01/29/17 at 18:53; Status DC Heparin Sodium/ Dextrose 500 ml @ 20 mls/hr CONT PRN IV SEE I/O RECORD; Start 01/29/17 at 18:24; Stop 01/30/17 at 14:01; Status DC Metoprolol Tartrate (Lopressor) 10 mg 1X ONCE IVP Last administered on 18:52; Start 01/29/17 at 18:45; Stop 01/29/17 at 18:53; Status DC Lidocaine HCl 10 ml 1X ONCE IJ Last administered on 01/29/17 18:52; Start at 18:45; Stop 01/29/17 at 18:53; Status DC Sodium Chloride (Normal Saline Flush) 3 ml QSHIFT PRN IV AFTER MEDS AND BLOOD DRAWS; Start 01/29/17 at 18:45 Docusate Sodium (Colace) 100 mg BID PO Last administered on 02/06/17 21:02; Start 01/29/17 at 21:00; Stop 02/07/17 at 13:21; Status DC Fentanyl Citrate (Fentanyl 2ml Vial) 50 mcg PRN Q1HR PRN IV SEVERE PAIN Last administered on 02/05/17 22:00; Start 01/29/17 at 18:45; Stop 02/06/17 at 10:21 ; Status DC Cyclobenzaprine HCl (Flexeril) 10 mg PRN TID PRN PO MUSCLE SPASMS Last administered on 01/30/17 05:22; Start 01/29/17 at 18:45 Ondansetron HCl (Zofran) 4 mg PRN Q6HRS PRN IV NAUSEA/VOMITING; Start 01/29/17 at 18:45; Stop 02/05/17 at 13:28; Status DC Nitroglycerin (Nitrostat) 0.4 mg PRN Q5MIN PRN SL CHEST PAIN; Start 01/29/17 at 18:45 Acetaminophen/ Hydrocodone Bitart (Lortab 5/325) 1 tab PRN Q4HRS PRN PO MILD PAIN Last administered on 02/04/17 17:16; Start 01/29/17 at 18:45; Stop at 10:21; Status DC Diltiazem HCl 5 mg 5 mg 1X ONCE IVP Last administered on 01/29/17 19:23; Start 01/29/17 at 19:15; Stop 01/29/17 at 19:18; Status DC Diltiazem HCl/ Dextrose (Cardizem) 125 ml @ 0 mls/hr CONT PRN IV SEE I/O RECORD ; Start 01/29/17 at 19:15; Stop 02/03/17 at 12:13; Status DC Diphenhydramine HCl (Benadryl) 50 mg PRN Q8HRS PRN IVP ITCHING Last administered on 02/02/17 09:41; Start 01/29/17 at 19:15; Stop 02/03/17 at 09:05 ; Status DC Nitroglycerin (Nitrostat) 0.4 mg STK-MED ONCE SL ; Start 01/29/17 at 17:00; Stop 01/30/17 at 08:02; Status DC Info (Anti-Coagulation Monitoring By Pharmacy) 1 each PRN DAILY PRN MC SEE COMMENTS Last administered on 02/04/17 09:51; Start 01/30/17 at 10:45; Stop at 18:43; Status DC Heparin Sodium (Porcine) 3000 unit 3,000 unit 1X ONCE IV Last administered on 01/30/17 17:36; Start 01/30/17 at 18:00; Stop 01/30/17 at 18:01; Status DC Heparin Sodium/ Dextrose 500 ml @ 24 mls/hr CONT PRN IV SEE I/O RECORD Last administered on 02/03/17 05:47; Start 01/30/17 at 18:00; Stop 02/04/17 at 18:41 ; Status DC Sodium Chloride (Iv Sodium Chloride 0.9% 1000ml Bag) 1,000 ml @ 50 mls/hr Q20H IV Last administered on 01/31/17 23:30; Start 01/31/17 at 02:45; Stop at 12:13; Status DC Dextrose 25 gm 1X ONCE IV Last administered on 01/31/17 06:05; Start at 06:30; Stop 01/31/17 at 06:31; Status DC Insulin Human Regular (Novolin R Vial) 10 unit 1X ONCE IV Last administered on 01/31/17 06:09; Start 01/31/17 at 06:30; Stop 01/31/17 at 06:31; Status DC Dextrose 25 gm 25 gm 1X ONCE IV Last administered on 01/31/17 09:04; Start at 09:00; Stop 01/31/17 at 09:03; Status DC Sodium Chloride 1,000 ml @ 1,000 mls/hr Q1H PRN IV hypotension; Start 01/31/17 at 09:28; Stop 01/31/17 at 15:27; Status DC Albumin Human (Albuminar) 200 ml @ 200 mls/hr 1X PRN PRN IV Hypotension; Start 01/31/17 at 09:30; Stop 01/31/17 at 15:29; Status DC Acetaminophen (Tylenol) 500 mg 1X PRN PRN PO MILD PAIN / TEMP; Start 01/31/17 at 09:30; Stop 02/01/17 at 09:29; Status DC Diphenhydramine HCl (Benadryl) 25 mg 1X PRN PRN IV ITCHING Last administered on 01/31/17 18:05; Start 01/31/17 at 09:30; Stop 02/01/17 at 09:29; Status DC Diphenhydramine HCl (Benadryl) 25 mg 1X PRN PRN IV ITCHING; Start 01/31/17 at 09:30; Stop 02/01/17 at 09:29; Status DC Info (PHARMACY MONITORING -- do not chart) 1 each PRN DAILY PRN MC SEE COMMENTS ; Start 01/31/17 at 09:30; Status UNV Diphenhydramine HCl (Benadryl) 50 mg PRN Q6HRS PRN IVP ITCHING Last administered on 02/07/17 10:24; Start 02/01/17 at 15:15 Fentanyl Citrate (Fentanyl 2ml Vial) 25 mcg PRN Q4HRS PRN IV MODERATE PAIN; Start 02/01/17 at 15:15; Stop 02/06/17 at 10:21; Status DC Diphenhydramine HCl (Benadryl) 25 mg 1X PRN PRN IV ITCHING; Start 02/02/17 at 09:30; Stop 02/03/17 at 09:29; Status DC Info (PHARMACY MONITORING -- do not chart) 1 each PRN DAILY PRN MC SEE COMMENTS ; Start 02/02/17 at 09:30; Stop 02/03/17 at 09:05; Status DC Info (PHARMACY MONITORING -- do not chart) 1 each PRN DAILY PRN MC SEE COMMENTS ; Start 02/02/17 at 09:30; Status Cancel Throat Lozenges (Cepacol Sore Throat Lozenge) 1 estelita PRN Q2HRS PRN PO SORE THROAT Last administered on 02/03/17 20:49; Start 02/03/17 at 07:15; Stop 02/05 at 13:28; Status DC Alprazolam (Xanax) 0.25 mg PRN Q6HRS PRN PO ANXIETY / AGITATION, 1ST CHOIC Last administered on 02/03/17 14:15; Start 02/03/17 at 12:15; Stop 02/06/17 at 10:21; Status DC Alprazolam 0.5 mg 0.5 mg PRN Q6HRS PRN PO ANXIETY / AGITATION, 2ND CHOIC Last administered on 02/06/17 08:13; Start 02/03/17 at 12:30; Stop 02/06/17 at 10:21 ; Status DC Vancomycin HCl 250 ml @ 250 mls/hr 1X PREOP ONCE IV Last administered on 02/05 08:33; Start 02/05/17 at 06:00; Stop 02/05/17 at 06:59; Status DC Ondansetron HCl (Zofran) 4 mg PRN Q6HRS PRN IV Nausea; Start 02/05/17 at 07:00 ; Stop 02/05/17 at 13:28; Status DC Fentanyl Citrate (Fentanyl 2ml Vial) 25 mcg PRN Q5MIN PRN IV MILD PAIN; Start 02/05/17 at 07:00; Stop 02/05/17 at 22:13; Status DC Fentanyl Citrate (Fentanyl 2ml Vial) 50 mcg PRN Q5MIN PRN IV MODERATE PAIN; Start 02/05/17 at 07:00; Stop 02/05/17 at 22:13; Status DC Morphine Sulfate 1 mg 1 mg PRN Q10MIN PRN IV SEVERE PAIN Last administered on 19:01; Start 02/05/17 at 07:00; Stop 02/06/17 at 06:59; Status DC Lactated Ringer's (Iv Lactated Ringers) 1,000 ml @ 0 mls/hr Q0M IV Last administered on 02/05/17 07:32; Start 02/05/17 at 07:00; Stop 02/05/17 at 13:28 ; Status DC Lidocaine HCl 2 ml 1X PRN PRN ID IV START; Start 02/05/17 at 07:00; Stop at 06:59; Status DC Hydromorphone HCl (Dilaudid) 0.5 mg PRN Q10MIN PRN IV SEVERE PAIN, Second choice; Start 02/05/17 at 07:00; Stop 02/06/17 at 06:59; Status DC Prochlorperazine Edisylate 5 mg 5 mg PACU PRN PRN IV NAUSEA; Start 02/05/17 at 07:00; Stop 02/06/17 at 06:59; Status DC Sodium Chloride (Iv Sodium Chloride 0.9% 1000ml Bag) 1,000 ml @ 1,000 mls/hr Q1H PRN IV hypotension; Start 02/04/17 at 09:55; Stop 02/04/17 at 15:54; Status DC Info (PHARMACY MONITORING -- do not chart) 1 each PRN DAILY PRN MC SEE COMMENTS ; Start 02/04/17 at 10:00 Throat Lozenges 1 estelita 1 estelita PRN Q2HRS PRN PO SORE THROAT Last administered on 06:01; Start 02/04/17 at 11:00 Magnesium Sulfate/ Dextrose 50 ml @ 25 mls/hr PRN DAILY PRN IV for Mag < 1.7 on am labs; Start 02/04/17 at 11:30; Stop 02/05/17 at 13:28; Status DC Potassium Chloride 70 meq/ Sodium Bicarbonate 12.5 meq/Lidocaine HCl 24 ml/ Parenteral Electrolytes 571.5 ml @ 571.5 mls/ hr 1X PERIOP ONCE IRR Last administered on 02/05/17 09:42; Start 02/05/17 at 06:00; Stop 02/05/17 at 06:59 ; Status DC Potassium Chloride 15 meq/ Sodium Bicarbonate 12.5 meq/Parenteral Electrolytes 520 ml @ 520 mls/hr 1X PERIOP ONCE IRR Last administered on 02/05/17 09:42; Start 02/05/17 at 06:00; Stop 02/05/17 at 06:59; Status DC Heparin Sodium (Porcine)/ Lactated Ringer's (Iv Lactated Ringers) 1,020 ml @ 1, 020 mls/hr 1X PERIOP ONCE IRR Last administered on 02/05/17 08:42; Start at 06:00; Stop 02/05/17 at 06:59; Status DC Aminocaproic Acid (Amicar) 5,000 mg STK-MED ONCE IV ; Start 02/05/17 at 06:13; Stop 02/05/17 at 06:14; Status DC Etomidate (Amidate) 20 mg STK-MED ONCE IV ; Start 02/05/17 at 06:13; Stop at 06:14; Status DC Lidocaine HCl 100 mg STK-MED ONCE .ROUTE ; Start 02/05/17 at 06:13; Stop at 06:14; Status DC Rocuronium [place] (Zemuron) 100 mg STK-MED ONCE .ROUTE ; Start 02/05/17 at 06: 14; Stop 02/05/17 at 06:15; Status DC Ephedrine Sulfate 50 mg STK-MED ONCE IV ; Start 02/05/17 at 06:14; Stop at 06:15; Status DC Phenylephrine HCl (Alexis-Synephrine Inj) 10 mg STK-MED ONCE .ROUTE ; Start at 06:14; Stop 02/05/17 at 06:15; Status DC Sufentanil Citrate (Sufenta) 100 mcg STK-MED ONCE .ROUTE ; Start 02/05/17 at 06: 14; Stop 02/05/17 at 06:15; Status DC Midazolam HCl (Versed) 2 mg STK-MED ONCE .ROUTE ; Start 02/05/17 at 06:14; Stop 02/05/17 at 06:15; Status DC Fentanyl Citrate 100 mcg 100 mcg STK-MED ONCE .ROUTE ; Start 02/05/17 at 06:15; Stop 02/05/17 at 06:16; Status DC Nitroglycerin/ Dextrose (Nitroglycerin Drip) 250 ml @ As Directed STK-MED ONCE IV ; Start 02/05/17 at 06:15; Stop 02/05/17 at 06:16; Status DC Heparin Sodium (Porcine) 30,000 unit STK-MED ONCE .ROUTE ; Start 02/05/17 at 06: 16; Stop 02/05/17 at 06:17; Status DC Cellulose 1 each STK-MED ONCE .ROUTE Last administered on 02/05/17 08:42; Start 02/05/17 at 06:42; Stop 02/05/17 at 06:43; Status DC Papaverine HCl 60 mg STK-MED ONCE .ROUTE Last administered on 02/05/17 08:42; Start 02/05/17 at 06:42; Stop 02/05/17 at 06:43; Status DC Aspirin (Aspirin) 300 mg STK-MED ONCE .ROUTE Last administered on 02/05/17 12: 58; Start 02/05/17 at 06:42; Stop 02/05/17 at 06:43; Status DC Mineral Oil (Muri-Lube) 10 ml STK-MED ONCE MC Last administered on 02/05/17 12 :10; Start 02/05/17 at 06:43; Stop 02/05/17 at 06:44; Status DC Sodium Chloride 50 ml 50 ml STK-MED ONCE IJ Last administered on 02/05/17 08: 42; Start 02/05/17 at 06:43; Stop 02/05/17 at 06:44; Status DC Mannitol (Mannitol Iv Soln) 500 ml @ 0 mls/hr 1X ONCE IV ; Start 02/05/17 at 07 :15; Stop 02/05/17 at 07:16; Status DC Sufentanil Citrate (Sufenta) 100 mcg STK-MED ONCE .ROUTE ; Start 02/05/17 at 08: 01; Stop 02/05/17 at 08:02; Status DC Midazolam HCl (Versed) 5 mg STK-MED ONCE .ROUTE ; Start 02/05/17 at 09:10; Stop 02/05/17 at 09:11; Status DC Heparin Sodium (Porcine) 10,000 unit STK-MED ONCE .ROUTE ; Start 02/05/17 at 09: 15; Stop 02/05/17 at 09:16; Status DC Rocuronium [place] (Zemuron) 100 mg STK-MED ONCE .ROUTE ; Start 02/05/17 at 09: 43; Stop 02/05/17 at 09:44; Status DC Heparin Sodium (Porcine) 10,000 unit STK-MED ONCE .ROUTE ; Start 02/05/17 at 10: 57; Stop 02/05/17 at 10:58; Status DC Protamine Sulfate 250 mg STK-MED ONCE IV ; Start 02/05/17 at 11:08; Stop at 11:09; Status DC Protamine Sulfate 50 mg STK-MED ONCE IV ; Start 02/05/17 at 11:09; Stop at 11:10; Status DC Protamine Sulfate 50 mg STK-MED ONCE IV ; Start 02/05/17 at 11:09; Stop at 11:10; Status DC Protamine Sulfate 50 mg STK-MED ONCE IV ; Start 02/05/17 at 11:09; Stop at 11:10; Status DC Isoflurane (Isoflurane) 90 ml STK-MED ONCE IH ; Start 02/05/17 at 11:34; Stop at 11:35; Status DC Heparin Sodium (Porcine) 10,000 unit STK-MED ONCE .ROUTE ; Start 02/05/17 at 12: 59; Stop 02/05/17 at 13:00; Status DC Lidocaine HCl (Xylocaine-Mpf 1% Vial) 5 ml STK-MED ONCE .ROUTE ; Start 02/05/17 at 12:59; Stop 02/05/17 at 13:00; Status DC Aminocaproic Acid (Amicar) 5,000 mg STK-MED ONCE IV ; Start 02/05/17 at 12:59; Stop 02/05/17 at 13:00; Status DC Magnesium Sulfate 5 gm STK-MED ONCE .ROUTE ; Start 02/05/17 at 12:59; Stop 02/05 at 13:00; Status DC Calcium Chloride 1000 mg 1,000 mg STK-MED ONCE IV ; Start 02/05/17 at 12:59; Stop 02/05/17 at 13:00; Status DC Albumin Human (Albuminar) 200 ml @ As Directed STK-MED ONCE IV ; Start at 12:59; Stop 02/05/17 at 13:00; Status DC Heparin Sodium (Porcine) 58102 unit 30,000 unit STK-MED ONCE .ROUTE ; Start at 12:59; Stop 02/05/17 at 13:00; Status DC Lactated Ringer's 1,000 ml @ 30 mls/hr Q24H IV Last administered on 02/06/17t 12:37; Start 02/05/17 at 13:15; Stop 02/07/17 at 17:31; Status DC Albumin Human 250 ml @ 60 mls/hr PRN Q4HRS PRN IV SEE I/O RECORD Last administered on 02/05/17t 17:20; Start 02/05/17 at 13:15; Stop 02/06/17 at 16:09 ; Status DC Vancomycin HCl 1.5 gm/Sodium Chloride 500 ml @ 250 mls/hr Q12H IV ; Start 02/05 at 13:30; Stop 02/06/17 at 15:29; Status UNV Insulin Human Regular/Sodium Chloride (Novolin R Vial/ Iv Normal Saline 150ml) 151.5 ml @ 0 mls/hr CONT PRN PRN IV SEE I/O RECORD; Start 02/05/17 at 13:15; Stop 02/07/17 at 17:31; Status DC Dextrose 25 gm 25 gm PRN Q15MIN PRN IV LOW BLOOD SUGAR; Start 02/05/17 at 13:15 Nitroglycerin/ Dextrose 250 ml @ 0 mls/hr CONT PRN PRN IV SEE I/O RECORD; Start 02/05/17 at 13:15; Stop 02/07/17 at 17:31; Status DC Amiodarone HCl 900 mg/Dextrose 518 ml @ 33.33 mls/ hr CONT PRN PRN IV RUNS OF VT; Start 02/05/17 at 13:15; Stop 02/07/17 at 17:31; Status DC Amiodarone HCl 150 mg/Dextrose 103 ml @ 200 mls/hr 1X PRN PRN IV VT; Start at 13:15; Stop 02/07/17 at 17:31; Status DC Magnesium Sulfate/ Dextrose (Magnesium Sulfate PREMIX 1GM) 100 ml @ 100 mls/hr PRN DAILY PRN IV FOR MAG < 2.2; Start 02/05/17 at 13:15 Famotidine (Pepcid) 20 mg Q48H IVP Last administered on 02/05/17 20:37; Start 02/05/17 at 21:00; Stop 02/06/17 at 15:11; Status DC Ondansetron HCl (Zofran) 4 mg PRN Q4HRS PRN IV NAUSEA/VOMITING Last administered on 02/05/17 20:02; Start 02/05/17 at 13:15 Morphine Sulfate 2 mg PRN Q1HR PRN IV PAIN Last administered on 02/07/17 01:32 ; Start 02/05/17 at 13:15; Stop 02/07/17 at 08:19; Status DC Acetaminophen (Tylenol) 650 mg PRN Q4HRS PRN PO MILD PAIN / TEMP; Start at 13:15 Acetaminophen (Tylenol) 650 mg PRN Q4HRS PRN [place] MILD PAIN / TEMP; Start at 13:15 Meperidine HCl 12.5 mg 12.5 mg PRN Q15MIN PRN IV SHIVERING; Start 02/05/17 at 13:15; Stop 02/06/17 at 10:21; Status DC Propofol (Diprivan) 100 ml @ 0 mls/hr CONT PRN PRN IV POSTOP SEDATION UNTIL EXTUBATE Last administered on 02/05/17 17:23; Start 02/05/17 at 13:15; Stop at 22:13; Status DC Senna/Docusate Sodium (Senna Plus) 1 tab BID PO Last administered on 02/08/17 10:21; Start 02/05/17 at 21:00 Bisacodyl (Dulcolax Supp) 10 mg PRN DAILY PRN [place] NO BOWEL MOVEMENT; Start 02/05 at 13:15; Stop 02/08/17 at 13:11; Status DC Chlorhexidine Gluconate (Peridex) 15 ml BID MM Last administered on 02/05/17 20:37; Start 02/05/17 at 21:00; Stop 02/05/17 at 22:13; Status DC Aspirin (Ecotrin) 325 mg [id number] PO Last administered on 02/08/17 10:22; Start 02/06/17 at 08:00 Aspirin (Aspirin) 300 mg PRN DAILY PRN [place] IF UNABLE TO TAKE PO; Start 02/05/17 at 13:15; Stop 02/07/17 at 17:31; Status DC Albuterol Sulfate (Ventolin Neb Soln) 2.5 mg PRN Q4HRS PRN NEB SHORTNESS OF BREATH Last administered on 02/06/17 00:15; Start 02/05/17 at 13:15 Metoprolol Tartrate 25 mg 25 mg BID PO ; Start 02/06/17 at 09:00; Stop 02/06/17 at 17:16; Status DC Clevidipine (Cleviprex) 100 ml @ 0 mls/hr CONT PRN IV PER PROTOCOL Last administered on 02/05/17 17:25; Start 02/05/17 at 13:15; Stop 02/07/17 at 17:31 ; Status DC Oxycodone/ Acetaminophen (Percocet 5/325) 1 tab PRN Q4HRS PRN PO MILD PAIN Last administered on 02/08/17 05:53; Start 02/05/17 at 13:15 Oxycodone/ Acetaminophen (Percocet 5/325) 2 tab PRN Q4HRS PRN PO MODERATE PAIN , SEVERE PAIN Last administered on 02/07/17 20:53; Start 02/05/17 at 13:15 Vecuronium [place] 10 mg 10 mg STK-MED ONCE IV ; Start 02/05/17 at 13:32; Stop 02/05/17 at 13:33; Status DC Vancomycin HCl/ Sodium Chloride (Iv Sodium Chloride 0.9% 100ml) 100 ml @ 100 mls/hr 1X ONCE IV Last administered on 02/06/17 15:00; Start 02/06/17 at 16: 00; Stop 02/06/17 at 16:59; Status DC Dextrose 25 gm 1X ONCE IV ; Start 02/06/17 at 07:30; Stop 02/06/17 at 07:31; Status DC Calcium Chloride 2,000 mg 1X ONCE IV ; Start 02/06/17 at 07:30; Stop 02/06/17 at 07:31; Status DC Insulin Human Regular (Novolin R Vial) 10 unit 1X ONCE IV ; Start 02/06/17 at 07:30; Stop 02/06/17 at 07:31; Status DC Vecuronium [place] 10 mg 10 mg STK-MED ONCE IV ; Start 02/05/17 at 13:30; Stop 02/06/17 at 07:51; Status DC Sodium Chloride 1,000 ml @ 1,000 mls/hr Q1H PRN IV hypotension; Start 02/06/17 at 08:26; Stop 02/06/17 at 14:25; Status DC Albumin Human (Albuminar) 200 ml @ 200 mls/hr 1X PRN PRN IV Hypotension Last administered on 02/06/17 09:30; Start 02/06/17 at 08:30; Stop 02/06/17 at 14:29 ; Status DC Acetaminophen (Tylenol) 500 mg 1X PRN PRN PO MILD PAIN / TEMP; Start 02/06/17 at 08:30; Stop 02/07/17 at 08:29; Status DC Diphenhydramine HCl (Benadryl) 25 mg 1X PRN PRN IV ITCHING; Start 02/06/17 at 08:30; Stop 02/07/17 at 08:29; Status DC Diphenhydramine HCl (Benadryl) 25 mg 1X PRN PRN IV ITCHING; Start 02/06/17 at 08:30; Stop 02/07/17 at 08:29; Status DC Info (PHARMACY MONITORING -- do not chart) 1 each PRN DAILY PRN MC SEE COMMENTS ; Start 02/06/17 at 08:30; Stop 02/06/17 at 15:09; Status DC Clonazepam (Klonopin) 0.5 mg PRN Q6HRS PRN PO ANXIETY / AGITATION; Start at 10:15 Famotidine 20 mg 20 mg Q48H PO Last administered on 02/07/17 20:55; Start at 21:00 Albumin Human (Plasmanate) 250 ml @ 60 mls/hr PRN Q4HRS PRN IV SEE I/O RECORD ; Start 02/06/17 at 16:09 Alprazolam (Xanax) 0.5 mg PRN Q8HRS PRN PO ANXIETY / AGITATION Last administered on 02/08/17 10:21; Start 02/06/17 at 22:15 Docusate Sodium (Colace) 100 mg DAILY PO Last administered on 02/08/17 10:23; Start 02/07/17 at 09:00 Morphine Sulfate 4 mg PRN Q2HR PRN IV PAIN; Start 02/07/17 at 13:15 Info (PHARMACY MONITORING -- do not chart) 1 each PRN DAILY PRN MC SEE COMMENTS ; Start 02/07/17 at 11:30; Stop 02/07/17 at 11:30; Status DC Ketorolac Tromethamine (Toradol) 15 mg 1X ONCE IV Last administered on 12:00; Start 02/07/17 at 12:00; Stop 02/07/17 at 12:01; Status DC Metoprolol Tartrate 12.5 mg 12.5 mg BID PO Last administered on 02/08/17 10:23 ; Start 02/07/17 at 21:00 Magnesium Sulfate/ Dextrose (Magnesium Sulfate PREMIX 2GM) 50 ml @ 25 mls/hr 1X ONCE IV Last administered on 02/07/17 18:30; Start 02/07/17 at 18:30; Stop 02/07/17 at 20:29; Status DC Darbepoetin [place] (Aranesp) 100 mcg [id number] SQ ; Start 02/09/17 at 21:00 Bisacodyl (Dulcolax Supp) 10 mg PRN DAILY PRN [place] NO BOWEL MOVEMENT; Start 02/08 at 13:11 Active Scripts Active Clopidogrel (Clopidogrel Bisulfate) 75 Mg Tablet 1 Tab PO DAILY Isosorbide Mononitrate Er (Isosorbide Mononitrate) 30 Mg Tab.er.24h 30 Mg PO DAILY Flomax (Tamsulosin Hcl) 0.4 Mg Cap.er.24h 0.4 Mg PO QHS Reported Hydrocodone-Apap 5-325 (Hydrocodone Bit/Acetaminophen) 1 Each Tablet 1 Tab PO PRN Q6HRS PRN Furosemide 80 Mg Tablet 1 Tab PO BID Nephro-Chilo Tablet (Folic Acid/Vitamin B Comp W-C) 0.8 Mg Tablet 1 Tab PO DAILY Paroxetine Hcl 20 Mg Tablet 40 Mg PO DAILY Tums (Calcium Carbonate) 200 Mg Tab.chew 800 Mg PO TIDAC Omeprazole Magnesium 20 Mg Capsule.dr 20 Mg PO DAILY Clonidine Hcl 0.3 Mg Tablet 1 Tab PO DAILY Hydralazine Hcl 100 Mg Tablet 100 Mg PO TID LAST DOSE: 02/24/16 AFTERNOON NEXT DOSE: 02/24/16 BEDTIME Amlodipine Besylate 10 Mg Tablet 10 Mg PO BID LAST DOSE: 02/24/16 AM NEXT DOSE: 02/25/16 AM Xanax (Alprazolam) 0.5 Mg Tablet 0.5 Mg PO Q6HRS PRN LAST DOSE: 02/23/16 BEDTIME NEXT DOSE: 02/24/16 BEDTIME Losartan Potassium 100 Mg Tablet 100 Mg PO HS LAST DOSE: 02/23/16 BEDTIME NEXT DOSE: 02/24/16 BEDTIME Metoprolol Tartrate 100 Mg Tablet 100 Mg PO BID LAST DOSE: 02/24/16 AM NEXT DOSE: 02/24/16 BEDTIME Lillian Chewable (Aspirin) 81 Mg Tab.chew 324 Mg PO DAILY LAST DOSE: 02/24/16 AM NEXT DOSE: 02/25/16 AM Vitals/I & O Vital Sign - Last 24 Hours 02/07/17 02/07/17 02/07/17 02/07/17 14:00 15:00 16:00 16:00 Pulse 78 80 76 Resp 16 14 B/P 104/48 115/36 93/47 Pulse Ox 99 97 99 O2 Delivery Nasal Cannula Nasal Cannula Nasal Cannula Nasal Cannula O2 Flow Rate 3.0 3.0 4.0 3.0 02/07/17 02/07/17 02/07/17 02/07/17 17:00 19:00 20:00 20:00 Temp 98.0 98.0 Pulse 72 72 84 Resp 14 16 16 B/P 104/41 103/54 101/33 Pulse Ox 98 98 91 O2 Delivery Nasal Cannula Nasal Cannula Nasal Cannula Nasal Cannula O2 Flow Rate 3.0 3.0 3.0 3.0 02/07/17 02/07/17 02/07/17 02/07/17 20:53 21:00 21:40 21:50 Pulse 76 75 Resp 16 20 16 B/P 89/56 Pulse Ox 98 98 97 O2 Delivery Nasal Cannula Nasal Cannula Nasal Cannula O2 Flow Rate 3.0 3.0 3.0 02/07/17 02/07/17 02/07/17 02/07/17 21:50 22:00 23:00 23:59 Pulse 74 76 73 Resp 16 16 16 B/P 89/56 117/54 114/55 Pulse Ox 94 98 95 O2 Delivery Nasal Cannula Nasal Cannula Nasal Cannula Nasal Cannula O2 Flow Rate 3.0 3.0 3.0 3.0 02/07/17 02/08/17 02/08/17 02/08/17 23:59 01:00 02:00 03:00 Temp 97.9 97.9 Pulse 72 74 67 71 Resp 18 18 16 16 B/P 119/49 118/45 86/44 111/59 Pulse Ox 99 94 94 98 O2 Delivery Nasal Cannula Nasal Cannula Nasal Cannula Nasal Cannula O2 Flow Rate 3.0 3.0 3.0 3.0 02/08/17 02/08/17 02/08/17 02/08/17 04:00 04:30 04:30 05:00 Temp 97.4 97.4 Pulse 73 71 Resp 16 16 B/P 101/43 114/36 Pulse Ox 97 95 O2 Delivery Nasal Cannula Nasal Cannula Nasal Cannula O2 Flow Rate 3.0 3.0 3.0 02/08/17 02/08/17 02/08/17 02/08/17 05:53 06:00 06:55 07:00 Pulse 73 69 Resp 16 16 16 B/P 123/54 123/54 Pulse Ox 95 97 99 99 O2 Delivery Nasal Cannula Nasal Cannula Nasal Cannula Nasal Cannula O2 Flow Rate 2.0 3.0 3.0 3.0 02/08/17 02/08/17 02/08/17 02/08/17 08:00 08:00 09:43 10:10 Temp 97.3 97.3 Pulse 78 84 77 Resp 16 20 B/P 132/64 113/63 144/57 Pulse Ox 100 O2 Delivery Nasal Cannula Nasal Cannula O2 Flow Rate 2.0 1.5 02/08/17 02/08/17 02/08/17 10:23 10:40 11:57 Temp 98.3 98.4 98.3 98.4 Pulse 80 72 74 Resp 16 16 B/P 144/56 131/49 126/59 Intake and Output 02/07/17 02/07/17 02/08/17 15:00 23:00 07:00 Intake Total 100 ml 245 ml 300 ml Output Total 200 ml 50 ml Balance -100 ml 195 ml 300 ml Nutrition Consultation Dietary Evaluation: Recommendations by RD: Increase Calorie Intake Comments: Continue to encourage diet compliance to the cardiac/renal diets Intake 25% of meals, does not meet nutrition needs. Rec. 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
[2017-02-08] MEDS: TAMSULOSIN 0.4 MG CAP.ER.24H. PO SCH (21:33)
[2017-02-09] VITALS (7 sets, daily range): BP systolic 112–132; BP diastolic 48–75
[2017-02-09 04:46] LABS: HEMATOCRIT 25.3 % (39.0-53.0); HEMOGLOBIN 8.2 g/dL (13.0-17.5)
[2017-02-09 05:37] LABS: ALBUMIN 2.8 g/dL (3.4-5.0); CALCIUM 8.5 mg/dL (8.5-10.1); GFR 6.9; PHOSPHORUS 3.4 mg/dL (2.6-4.7); POTASSIUM 3.7 mmol/L (3.5-5.1)
[2017-02-09] MEDS: OXYCODONE/APAP 5/325 TABLET. PO PRN ×3 (06:05→21:01)
[2017-02-09] MEDS ORDERED: IV NORMAL SALINE 1000ML BAG 1,000 ML IV PRN (07:12)
[2017-02-09] MEDS ORDERED: DIALYSIS PATIENT. MC PRN ×2 (07:15)
[2017-02-09] MEDS ORDERED: ACETAMINOPHEN 500 MG TABLET PO PRN (07:15)
[2017-02-09] MEDS ORDERED: DIPHENHYDRAMINE 50 MG/ML VIAL IV PRN ×2 (07:15)
[2017-02-09] MEDS ORDERED: ALBUMIN HUMAN 25% 200 ML IV PRN (07:15)
[2017-02-09] MEDS: CALCIUM CARBONATE 500 MG TAB.CHEW PO SCH ×3 (07:30→16:30)
[2017-02-09] MEDS: ALPRAZOLAM 0.5 MG TABLET PO PRN ×2 (07:49→20:58)
[2017-02-09] MEDS: DIPHENHYDRAMINE 50 MG/ML VIAL IVP PRN (07:49)
--- NOTE | 2017-02-09 11:01 | PDOC ---
PROGRESS NOTES Chief Complaint Chief Complaint Pancreatitis ACS ASSESSMENT AND PLAN: 1. STEMI: cath on 01/[address] Kiran: multivessel dz. CABG on 02/[address] Holbrook. 2. KnownCAD 3. ESRD: on HD, 4. Anemia: blood loss on top of CKD 5. DM: currently welll controlled. 6. Anxiety: 7. AMS : resolved 8. Sore throat: resolved 9 Pancreatitis: recurrent panc w/o EtOH hx, and s/p CCY. resolved 10. Prophylaxis: PPI History of Present Illness History of Present Illness HAving HD no acute issues Planned for home by [facility] on saturday Hgb stable NO more drains Spencer out PLAn: CPM Target home saturday Vitals Vitals Vital Signs Date Time Temp Pulse Resp B/P Pulse Ox O2 Delivery O2 Flow Rate FiO2 02/09/17 08:00 Nasal Cannula 1.5 02/09/17 04:00 98.7 72 18 120/48 94 98.7 Physical Exam General: Alert, Oriented X3, Cooperative, No acute distress Heart: Normal S1, Normal S2, Other (irreg) Lungs: Clear, Other (sternal incison covered with gauze, dried blood in gauze) Abdomen: Normal bowel sounds, Soft, No tenderness Extremities: No cyanosis Skin: No rashes Labs LABS Laboratory Tests Test 02/08/17 12:14 02/09/17 04:30 Glucose (Fingerstick) 121mg/dL (70-99) Hemoglobin 8.2g/dL (13.0-17.5) Hematocrit 25.3% (39.0-53.0) Mean Corpuscular Hemoglobin Concent 33g/dL (31-37) Sodium Level 142mmol/L (136-145) Potassium Level 3.7mmol/L (3.5-5.1) Chloride Level 100mmol/L (98-107) Carbon Dioxide Level 26mmol/L (21-32) Anion Gap 16 (6-14) Blood Urea Nitrogen 42mg/dL (8-26) Creatinine 8.0mg/dL (0.7-1.3) Estimated GFR (Cockcroft-Gault) 6.9 Glucose Level 102mg/dL (70-99) Calcium Level 8.5mg/dL (8.5-10.1) Phosphorus Level 3.4mg/dL (2.6-4.7) Magnesium Level 2.7mg/dL (1.8-2.4) Albumin 2.8g/dL (3.4-5.0) Review of Systems Review of Systems all 14 pt systems reveiwed Assessment and Plan Assessmemt and Plan Problems Medical Problems: (1) Flank pain Status: Acute (2) Pancreatitis Status: Acute (3) Unstable angina pectoris Status: Acute Problems: Comment Review of Relevant I have reviewed the following items dionte (where applicable) has been applied. Labs Laboratory Tests Test 02/08/17 06:00 02/08/17 12:14 02/09/17 04:30 White Blood Count 7.7x10^3/uL (4.0-11.0) Red Blood Count 2.21x10^6/uL (4.30-5.70) Hemoglobin 6.7g/dL (13.0-17.5) 8.2g/dL (13.0-17.5) Hematocrit 20.5% (39.0-53.0) 25.3% (39.0-53.0) Mean Corpuscular Volume 93fL (79-100) Mean Corpuscular Hemoglobin 31pg (25-35) Mean Corpuscular Hemoglobin Concent 33g/dL (31-37) 33g/dL (31-37) Red Cell Distribution Width 15.1% (11.5-14.5) Platelet Count 155x10^3/uL (140-400) Sodium Level 139mmol/L (136-145) 142mmol/L (136-145) Potassium Level 3.8mmol/L (3.5-5.1) 3.7mmol/L (3.5-5.1) Chloride Level 100mmol/L (98-107) 100mmol/L (98-107) Carbon Dioxide Level 29mmol/L (21-32) 26mmol/L (21-32) Anion Gap 10 (6-14) 16 (6-14) Blood Urea Nitrogen 25mg/dL (8-26) 42mg/dL (8-26) Creatinine 5.7mg/dL (0.7-1.3) 8.0mg/dL (0.7-1.3) Estimated GFR (Cockcroft-Gault) 10.2 6.9 Glucose Level 114mg/dL (70-99) 102mg/dL (70-99) Calcium Level 8.8mg/dL (8.5-10.1) 8.5mg/dL (8.5-10.1) Phosphorus Level 3.8mg/dL (2.6-4.7) 3.4mg/dL (2.6-4.7) Magnesium Level 2.5mg/dL (1.8-2.4) 2.7mg/dL (1.8-2.4) Albumin 3.0g/dL (3.4-5.0) 2.8g/dL (3.4-5.0) Glucose (Fingerstick) 121mg/dL (70-99) Laboratory Tests Test 02/08/17 12:14 02/09/17 04:30 Glucose (Fingerstick) 121mg/dL (70-99) Hemoglobin 8.2g/dL (13.0-17.5) Hematocrit 25.3% (39.0-53.0) Mean Corpuscular Hemoglobin Concent 33g/dL (31-37) Sodium Level 142mmol/L (136-145) Potassium Level 3.7mmol/L (3.5-5.1) Chloride Level 100mmol/L (98-107) Carbon Dioxide Level 26mmol/L (21-32) Anion Gap 16 (6-14) Blood Urea Nitrogen 42mg/dL (8-26) Creatinine 8.0mg/dL (0.7-1.3) Estimated GFR (Cockcroft-Gault) 6.9 Glucose Level 102mg/dL (70-99) Calcium Level 8.5mg/dL (8.5-10.1) Phosphorus Level 3.4mg/dL (2.6-4.7) Magnesium Level 2.7mg/dL (1.8-2.4) Albumin 2.8g/dL (3.4-5.0) Microbiology 02/03/17 Throat Culture - Final, Complete 02/03/17 - Final, Complete Medications Current Medications Hydromorphone HCl (Dilaudid) 1 mg 1X ONCE IV Last administered on 01/28/17t 23 :57; Start 01/28/17 at 23:30; Stop 01/28/17 at 23:31; Status DC Ondansetron HCl 4 mg 4 mg 1X ONCE IV Last administered on 01/28/17 23:57; Start 01/28/17 at 23:30; Stop 01/28/17 at 23:31; Status DC Sodium Chloride (Iv Sodium Chloride 0.9% 500ml Bag) 500 ml @ 0 mls/hr 1X ONCE IV Last administered on 01/28/17 23:39; Start 01/28/17 at 23:30; Stop at 23:31; Status DC Diphenhydramine HCl (Benadryl) 50 mg 1X ONCE IVP Last administered on 00:29; Start 01/29/17 at 00:30; Stop 01/29/17 at 00:31; Status DC Diphenhydramine HCl (Benadryl) 50 mg STK-MED ONCE .ROUTE ; Start 01/29/17 at 00: 26; Stop 01/29/17 at 00:27; Status DC Morphine Sulfate 4 mg 1X ONCE IV Last administered on 01/29/17 03:55; Start 01/29/17 at 02:15; Stop 01/29/17 at 02:16; Status DC Ondansetron HCl (Zofran) 4 mg PRN Q8HRS PRN IV NAUSEA/VOMITING; Start 01/29/17 at 03:00; Stop 01/30/17 at 02:59; Status DC Morphine Sulfate 4 mg 4 mg PRN Q2HR PRN IV PAIN Last administered on 01/29/17 09:59; Start 01/29/17 at 03:00; Stop 01/29/17 at 11:47; Status DC Sodium Chloride (Iv Sodium Chloride 0.9% 1000ml Bag) 1,000 ml @ 50 mls/hr Q20H IV Last administered on 01/30/17 07:28; Start 01/29/17 at 02:12; Stop at 02:11; Status DC Alprazolam (Xanax) 0.5 mg PRN Q6HRS PRN PO ANXIETY / AGITATION Last administered on 02/03/17 07:45; Start 01/29/17 at 11:30; Stop 02/03/17 at 12:13 ; Status DC Amlodipine Besylate (Norvasc) 10 mg BID PO Last administered on 02/04/17 20:55 ; Start 01/29/17 at 12:00; Stop 02/06/17 at 17:20; Status DC Aspirin (Children'S Aspirin) 324 mg DAILY PO ; Start 01/29/17 at 12:00; Stop at 18:32; Status DC Calcium Carbonate/ Glycine (Tums) 800 mg TIDAC PO Last administered on 10:21; Start 01/29/17 at 11:30 Clonidine HCl (Catapres) 0.3 mg DAILY PO Last administered on 02/04/17 14:59; Start 01/30/17 at 09:00; Stop 02/06/17 at 08:54; Status DC Clopidogrel Bisulfate (Plavix) 75 mg DAILY PO ; Start 01/29/17 at 12:00; Stop at 09:45; Status DC Vitamin B Complex/ Vitamin C (Nephro-Chilo) 1 tab DAILY PO Last administered on 02/08/17 10:24; Start 01/29/17 at 12:00 Furosemide (Lasix) 80 mg [id number] PO Last administered on 02/04/17 15:11; Start 01/29/17 at 14:00; Stop 02/06/17 at 08:54; Status DC Acetaminophen/ Hydrocodone Bitart (Lortab 5/325) 1 tab PRN Q6HRS PRN PO PAIN; Start 01/29/17 at 11:30; Stop 01/29/17 at 18:58; Status DC Isosorbide Mononitrate (Imdur) 30 mg DAILY PO Last administered on 02/04/17 15 :01; Start 01/29/17 at 12:00; Stop 02/06/17 at 08:54; Status DC Paroxetine HCl (Paxil) 40 mg DAILY PO Last administered on 02/08/17 10:22; Start 01/29/17 at 12:00 Tamsulosin HCl (Flomax) 0.4 mg QHS PO Last administered on 02/08/17 21:33; Start 01/29/17 at 21:00 Hydralazine HCl (Apresoline) 100 mg TID PO Last administered on 02/04/17 20:54 ; Start 01/29/17 at 14:00; Stop 02/06/17 at 17:16; Status DC Losartan Potassium (Cozaar) 100 mg QHS PO Last administered on 02/04/17 20:56 ; Start 01/29/17 at 21:00; Stop 02/06/17 at 17:16; Status DC Metoprolol Tartrate (Lopressor) 100 mg BID PO Last administered on 02/05/17 06 :34; Start 01/29/17 at 12:00; Stop 02/05/17 at 13:28; Status DC Pantoprazole Sodium (Protonix) 40 mg DAILYAC PO Last administered on 02/08/17 10:21; Start 01/29/17 at 12:00 Darbepoetin Percy (Aranesp) 60 mcg [id number] SQ Last administered on 02/02/17 21 :15; Start 02/02/17 at 21:00; Stop 02/08/17 at 09:40; Status DC Morphine Sulfate 6 mg 6 mg PRN Q2HR PRN IV PAIN Last administered on 01/30/17 19:22; Start 01/29/17 at 11:45; Stop 02/01/17 at 15:20; Status DC Sodium Chloride (Iv Sodium Chloride 0.9% 1000ml Bag) 1,000 ml @ 1,000 mls/hr Q1H PRN IV hypotension; Start 01/29/17 at 12:55; Stop 01/29/17 at 18:54; Status DC Diphenhydramine HCl (Benadryl) 25 mg 1X PRN PRN IV ITCHING Last administered on 01/29/17 19:12; Start 01/29/17 at 13:00; Stop 01/30/17 at 12:59; Status DC Diphenhydramine HCl (Benadryl) 25 mg 1X PRN PRN IV ITCHING Last administered on 01/29/17 13:16; Start 01/29/17 at 13:00; Stop 01/30/17 at 12:59; Status DC Info (PHARMACY MONITORING -- do not chart) 1 each PRN DAILY PRN MC SEE COMMENTS ; Start 01/29/17 at 13:00; Status UNV Info (PHARMACY MONITORING -- do not chart) 1 each PRN DAILY PRN MC SEE COMMENTS ; Start 01/29/17 at 13:00; Stop 02/03/17 at 09:04; Status DC Nitroglycerin (Nitrostat) 0.4 mg STK-MED ONCE SL ; Start 01/29/17 at 16:55; Stop 01/29/17 at 16:56; Status DC Heparin Sodium (Porcine) 4000 unit 4,000 unit 1X ONCE IV Last administered on 01/29/17t 17:37; Start 01/29/17 at 17:30; Stop 01/29/17 at 17:31; Status DC Heparin Sodium/ Sodium Chloride 500 ml @ As Directed STK-MED ONCE .ROUTE ; Start 01/29/17 at 17:54; Stop 01/29/17 at 17:55; Status DC Lidocaine HCl 20 ml STK-MED ONCE .ROUTE ; Start 01/29/17 at 17:54; Stop at 17:55; Status DC Iodixanol (Visipaque 320) 100 ml STK-MED ONCE .ROUTE ; Start 01/29/17 at 17:54; Stop 01/29/17 at 17:55; Status DC Metoprolol Tartrate (Lopressor) 5 mg STK-MED ONCE .ROUTE ; Start 01/29/17 at 18: 05; Stop 01/29/17 at 18:06; Status DC Fentanyl Citrate (Fentanyl 2ml Vial) 100 mcg STK-MED ONCE .ROUTE ; Start at 18:05; Stop 01/29/17 at 18:06; Status DC Midazolam HCl 2 mg 2 mg STK-MED ONCE .ROUTE ; Start 01/29/17 at 18:05; Stop at 18:06; Status DC Heparin Sodium/ Dextrose 500 ml @ As Directed STK-MED ONCE IV ; Start 01/29/17 at 18:18; Stop 01/29/17 at 18:19; Status DC Heparin Sodium (Porcine) 10,000 unit STK-MED ONCE .ROUTE ; Start 01/29/17 at 18: 18; Stop 01/29/17 at 18:19; Status DC Metoprolol Tartrate (Lopressor) 5 mg STK-MED ONCE .ROUTE ; Start 01/29/17 at 18: 25; Stop 01/29/17 at 18:26; Status DC Heparin Sodium/ Sodium Chloride 1,000 unit 1X ONCE IART Last administered on t 18:51; Start 01/29/17 at 18:45; Stop 01/29/17 at 18:53; Status DC Heparin Sodium/ Sodium Chloride 1,000 unit 1X ONCE IART Last administered on 18:51; Start 01/29/17 at 18:45; Stop 01/29/17 at 18:53; Status DC Midazolam HCl (Versed) 1 mg 1X ONCE IV Last administered on 01/29/17 18:53; Start 01/29/17 at 18:45; Stop 01/29/17 at 18:53; Status DC Fentanyl Citrate (Fentanyl 2ml Vial) 50 mcg 1X ONCE IV Last administered on 18:53; Start 01/29/17 at 18:45; Stop 01/29/17 at 18:53; Status DC Iodixanol (Visipaque 320) 105 ml 1X ONCE IART Last administered on 01/29/17 18:52; Start 01/29/17 at 18:45; Stop 01/29/17 at 18:53; Status DC Heparin Sodium (Porcine) 4000 unit 4,000 unit 1X ONCE IV Last administered on 01/29/17 18:53; Start 01/29/17 at 18:45; Stop 01/29/17 at 18:53; Status DC Heparin Sodium/ Dextrose 500 ml @ 20 mls/hr CONT PRN IV SEE I/O RECORD; Start 01/29/17 at 18:24; Stop 01/30/17 at 14:01; Status DC Metoprolol Tartrate (Lopressor) 10 mg 1X ONCE IVP Last administered on 18:52; Start 01/29/17 at 18:45; Stop 01/29/17 at 18:53; Status DC Lidocaine HCl 10 ml 1X ONCE IJ Last administered on 01/29/17 18:52; Start at 18:45; Stop 01/29/17 at 18:53; Status DC Sodium Chloride (Normal Saline Flush) 3 ml QSHIFT PRN IV AFTER MEDS AND BLOOD DRAWS; Start 01/29/17 at 18:45 Docusate Sodium (Colace) 100 mg BID PO Last administered on 02/06/17 21:02; Start 01/29/17 at 21:00; Stop 02/07/17 at 13:21; Status DC Fentanyl Citrate (Fentanyl 2ml Vial) 50 mcg PRN Q1HR PRN IV SEVERE PAIN Last administered on 02/05/17 22:00; Start 01/29/17 at 18:45; Stop 02/06/17 at 10:21 ; Status DC Cyclobenzaprine HCl (Flexeril) 10 mg PRN TID PRN PO MUSCLE SPASMS Last administered on 01/30/17 05:22; Start 01/29/17 at 18:45 Ondansetron HCl (Zofran) 4 mg PRN Q6HRS PRN IV NAUSEA/VOMITING; Start 01/29/17 at 18:45; Stop 02/05/17 at 13:28; Status DC Nitroglycerin (Nitrostat) 0.4 mg PRN Q5MIN PRN SL CHEST PAIN; Start 01/29/17 at 18:45 Acetaminophen/ Hydrocodone Bitart (Lortab 5/325) 1 tab PRN Q4HRS PRN PO MILD PAIN Last administered on 02/04/17 17:16; Start 01/29/17 at 18:45; Stop at 10:21; Status DC Diltiazem HCl 5 mg 5 mg 1X ONCE IVP Last administered on 01/29/17 19:23; Start 01/29/17 at 19:15; Stop 01/29/17 at 19:18; Status DC Diltiazem HCl/ Dextrose (Cardizem) 125 ml @ 0 mls/hr CONT PRN IV SEE I/O RECORD ; Start 01/29/17 at 19:15; Stop 02/03/17 at 12:13; Status DC Diphenhydramine HCl (Benadryl) 50 mg PRN Q8HRS PRN IVP ITCHING Last administered on 02/02/17 09:41; Start 01/29/17 at 19:15; Stop 02/03/17 at 09:05 ; Status DC Nitroglycerin (Nitrostat) 0.4 mg STK-MED ONCE SL ; Start 01/29/17 at 17:00; Stop 01/30/17 at 08:02; Status DC Info (Anti-Coagulation Monitoring By Pharmacy) 1 each PRN DAILY PRN MC SEE COMMENTS Last administered on 02/04/17 09:51; Start 01/30/17 at 10:45; Stop at 18:43; Status DC Heparin Sodium (Porcine) 3000 unit 3,000 unit 1X ONCE IV Last administered on 01/30/17 17:36; Start 01/30/17 at 18:00; Stop 01/30/17 at 18:01; Status DC Heparin Sodium/ Dextrose 500 ml @ 24 mls/hr CONT PRN IV SEE I/O RECORD Last administered on 02/03/17 05:47; Start 01/30/17 at 18:00; Stop 02/04/17 at 18:41 ; Status DC Sodium Chloride (Iv Sodium Chloride 0.9% 1000ml Bag) 1,000 ml @ 50 mls/hr Q20H IV Last administered on 01/31/17 23:30; Start 01/31/17 at 02:45; Stop at 12:13; Status DC Dextrose 25 gm 1X ONCE IV Last administered on 01/31/17 06:05; Start at 06:30; Stop 01/31/17 at 06:31; Status DC Insulin Human Regular (Novolin R Vial) 10 unit 1X ONCE IV Last administered on 01/31/17 06:09; Start 01/31/17 at 06:30; Stop 01/31/17 at 06:31; Status DC Dextrose 25 gm 25 gm 1X ONCE IV Last administered on 01/31/17 09:04; Start at 09:00; Stop 01/31/17 at 09:03; Status DC Sodium Chloride 1,000 ml @ 1,000 mls/hr Q1H PRN IV hypotension; Start 01/31/17 at 09:28; Stop 01/31/17 at 15:27; Status DC Albumin Human (Albuminar) 200 ml @ 200 mls/hr 1X PRN PRN IV Hypotension; Start 01/31/17 at 09:30; Stop 01/31/17 at 15:29; Status DC Acetaminophen (Tylenol) 500 mg 1X PRN PRN PO MILD PAIN / TEMP; Start 01/31/17 at 09:30; Stop 02/01/17 at 09:29; Status DC Diphenhydramine HCl (Benadryl) 25 mg 1X PRN PRN IV ITCHING Last administered on 01/31/17 18:05; Start 01/31/17 at 09:30; Stop 02/01/17 at 09:29; Status DC Diphenhydramine HCl (Benadryl) 25 mg 1X PRN PRN IV ITCHING; Start 01/31/17 at 09:30; Stop 02/01/17 at 09:29; Status DC Info (PHARMACY MONITORING -- do not chart) 1 each PRN DAILY PRN MC SEE COMMENTS ; Start 01/31/17 at 09:30; Status UNV Diphenhydramine HCl (Benadryl) 50 mg PRN Q6HRS PRN IVP ITCHING Last administered on 02/09/17 07:49; Start 02/01/17 at 15:15 Fentanyl Citrate (Fentanyl 2ml Vial) 25 mcg PRN Q4HRS PRN IV MODERATE PAIN; Start 02/01/17 at 15:15; Stop 02/06/17 at 10:21; Status DC Diphenhydramine HCl (Benadryl) 25 mg 1X PRN PRN IV ITCHING; Start 02/02/17 at 09:30; Stop 02/03/17 at 09:29; Status DC Info (PHARMACY MONITORING -- do not chart) 1 each PRN DAILY PRN MC SEE COMMENTS ; Start 02/02/17 at 09:30; Stop 02/03/17 at 09:05; Status DC Info (PHARMACY MONITORING -- do not chart) 1 each PRN DAILY PRN MC SEE COMMENTS ; Start 02/02/17 at 09:30; Status Cancel Throat Lozenges (Cepacol Sore Throat Lozenge) 1 estelita PRN Q2HRS PRN PO SORE THROAT Last administered on 02/03/17 20:49; Start 02/03/17 at 07:15; Stop 02/05 at 13:28; Status DC Alprazolam (Xanax) 0.25 mg PRN Q6HRS PRN PO ANXIETY / AGITATION, 1ST CHOIC Last administered on 02/03/17 14:15; Start 02/03/17 at 12:15; Stop 02/06/17 at 10:21; Status DC Alprazolam 0.5 mg 0.5 mg PRN Q6HRS PRN PO ANXIETY / AGITATION, 2ND CHOIC Last administered on 02/06/17 08:13; Start 02/03/17 at 12:30; Stop 02/06/17 at 10:21 ; Status DC Vancomycin HCl 250 ml @ 250 mls/hr 1X PREOP ONCE IV Last administered on 02/05 08:33; Start 02/05/17 at 06:00; Stop 02/05/17 at 06:59; Status DC Ondansetron HCl (Zofran) 4 mg PRN Q6HRS PRN IV Nausea; Start 02/05/17 at 07:00 ; Stop 02/05/17 at 13:28; Status DC Fentanyl Citrate (Fentanyl 2ml Vial) 25 mcg PRN Q5MIN PRN IV MILD PAIN; Start 02/05/17 at 07:00; Stop 02/05/17 at 22:13; Status DC Fentanyl Citrate (Fentanyl 2ml Vial) 50 mcg PRN Q5MIN PRN IV MODERATE PAIN; Start 02/05/17 at 07:00; Stop 02/05/17 at 22:13; Status DC Morphine Sulfate 1 mg 1 mg PRN Q10MIN PRN IV SEVERE PAIN Last administered on 19:01; Start 02/05/17 at 07:00; Stop 02/06/17 at 06:59; Status DC Lactated Ringer's (Iv Lactated Ringers) 1,000 ml @ 0 mls/hr Q0M IV Last administered on 02/05/17 07:32; Start 02/05/17 at 07:00; Stop 02/05/17 at 13:28 ; Status DC Lidocaine HCl 2 ml 1X PRN PRN ID IV START; Start 02/05/17 at 07:00; Stop at 06:59; Status DC Hydromorphone HCl (Dilaudid) 0.5 mg PRN Q10MIN PRN IV SEVERE PAIN, Second choice; Start 02/05/17 at 07:00; Stop 02/06/17 at 06:59; Status DC Prochlorperazine Edisylate 5 mg 5 mg PACU PRN PRN IV NAUSEA; Start 02/05/17 at 07:00; Stop 02/06/17 at 06:59; Status DC Sodium Chloride (Iv Sodium Chloride 0.9% 1000ml Bag) 1,000 ml @ 1,000 mls/hr Q1H PRN IV hypotension; Start 02/04/17 at 09:55; Stop 02/04/17 at 15:54; Status DC Info (PHARMACY MONITORING -- do not chart) 1 each PRN DAILY PRN MC SEE COMMENTS ; Start 02/04/17 at 10:00 Throat Lozenges 1 estelita 1 estelita PRN Q2HRS PRN PO SORE THROAT Last administered on 06:01; Start 02/04/17 at 11:00 Magnesium Sulfate/ Dextrose 50 ml @ 25 mls/hr PRN DAILY PRN IV for Mag < 1.7 on am labs; Start 02/04/17 at 11:30; Stop 02/05/17 at 13:28; Status DC Potassium Chloride 70 meq/ Sodium Bicarbonate 12.5 meq/Lidocaine HCl 24 ml/ Parenteral Electrolytes 571.5 ml @ 571.5 mls/ hr 1X PERIOP ONCE IRR Last administered on 02/05/17 09:42; Start 02/05/17 at 06:00; Stop 02/05/17 at 06:59 ; Status DC Potassium Chloride 15 meq/ Sodium Bicarbonate 12.5 meq/Parenteral Electrolytes 520 ml @ 520 mls/hr 1X PERIOP ONCE IRR Last administered on 02/05/17 09:42; Start 02/05/17 at 06:00; Stop 02/05/17 at 06:59; Status DC Heparin Sodium (Porcine)/ Lactated Ringer's (Iv Lactated Ringers) 1,020 ml @ 1, 020 mls/hr 1X PERIOP ONCE IRR Last administered on 02/05/17 08:42; Start at 06:00; Stop 02/05/17 at 06:59; Status DC Aminocaproic Acid (Amicar) 5,000 mg STK-MED ONCE IV ; Start 02/05/17 at 06:13; Stop 02/05/17 at 06:14; Status DC Etomidate (Amidate) 20 mg STK-MED ONCE IV ; Start 02/05/17 at 06:13; Stop at 06:14; Status DC Lidocaine HCl 100 mg STK-MED ONCE .ROUTE ; Start 02/05/17 at 06:13; Stop at 06:14; Status DC Rocuronium [place] (Zemuron) 100 mg STK-MED ONCE .ROUTE ; Start 02/05/17 at 06: 14; Stop 02/05/17 at 06:15; Status DC Ephedrine Sulfate 50 mg STK-MED ONCE IV ; Start 02/05/17 at 06:14; Stop at 06:15; Status DC Phenylephrine HCl (Alexis-Synephrine Inj) 10 mg STK-MED ONCE .ROUTE ; Start at 06:14; Stop 02/05/17 at 06:15; Status DC Sufentanil Citrate (Sufenta) 100 mcg STK-MED ONCE .ROUTE ; Start 02/05/17 at 06: 14; Stop 02/05/17 at 06:15; Status DC Midazolam HCl (Versed) 2 mg STK-MED ONCE .ROUTE ; Start 02/05/17 at 06:14; Stop 02/05/17 at 06:15; Status DC Fentanyl Citrate 100 mcg 100 mcg STK-MED ONCE .ROUTE ; Start 02/05/17 at 06:15; Stop 02/05/17 at 06:16; Status DC Nitroglycerin/ Dextrose (Nitroglycerin Drip) 250 ml @ As Directed STK-MED ONCE IV ; Start 02/05/17 at 06:15; Stop 02/05/17 at 06:16; Status DC Heparin Sodium (Porcine) 30,000 unit STK-MED ONCE .ROUTE ; Start 02/05/17 at 06: 16; Stop 02/05/17 at 06:17; Status DC Cellulose 1 each STK-MED ONCE .ROUTE Last administered on 02/05/17 08:42; Start 02/05/17 at 06:42; Stop 02/05/17 at 06:43; Status DC Papaverine HCl 60 mg STK-MED ONCE .ROUTE Last administered on 02/05/17 08:42; Start 02/05/17 at 06:42; Stop 02/05/17 at 06:43; Status DC Aspirin (Aspirin) 300 mg STK-MED ONCE .ROUTE Last administered on 02/05/17 12: 58; Start 02/05/17 at 06:42; Stop 02/05/17 at 06:43; Status DC Mineral Oil (Muri-Lube) 10 ml STK-MED ONCE MC Last administered on 02/05/17 12 :10; Start 02/05/17 at 06:43; Stop 02/05/17 at 06:44; Status DC Sodium Chloride 50 ml 50 ml STK-MED ONCE IJ Last administered on 02/05/17t 08: 42; Start 02/05/17 at 06:43; Stop 02/05/17 at 06:44; Status DC Mannitol (Mannitol Iv Soln) 500 ml @ 0 mls/hr 1X ONCE IV ; Start 02/05/17 at 07 :15; Stop 02/05/17 at 07:16; Status DC Sufentanil Citrate (Sufenta) 100 mcg STK-MED ONCE .ROUTE ; Start 02/05/17 at 08: 01; Stop 02/05/17 at 08:02; Status DC Midazolam HCl (Versed) 5 mg STK-MED ONCE .ROUTE ; Start 02/05/17 at 09:10; Stop 02/05/17 at 09:11; Status DC Heparin Sodium (Porcine) 10,000 unit STK-MED ONCE .ROUTE ; Start 02/05/17 at 09: 15; Stop 02/05/17 at 09:16; Status DC Rocuronium [place] (Zemuron) 100 mg STK-MED ONCE .ROUTE ; Start 02/05/17 at 09: 43; Stop 02/05/17 at 09:44; Status DC Heparin Sodium (Porcine) 10,000 unit STK-MED ONCE .ROUTE ; Start 02/05/17 at 10: 57; Stop 02/05/17 at 10:58; Status DC Protamine Sulfate 250 mg STK-MED ONCE IV ; Start 02/05/17 at 11:08; Stop at 11:09; Status DC Protamine Sulfate 50 mg STK-MED ONCE IV ; Start 02/05/17 at 11:09; Stop at 11:10; Status DC Protamine Sulfate 50 mg STK-MED ONCE IV ; Start 02/05/17 at 11:09; Stop at 11:10; Status DC Protamine Sulfate 50 mg STK-MED ONCE IV ; Start 02/05/17 at 11:09; Stop at 11:10; Status DC Isoflurane (Isoflurane) 90 ml STK-MED ONCE IH ; Start 02/05/17 at 11:34; Stop at 11:35; Status DC Heparin Sodium (Porcine) 10,000 unit STK-MED ONCE .ROUTE ; Start 02/05/17 at 12: 59; Stop 02/05/17 at 13:00; Status DC Lidocaine HCl (Xylocaine-Mpf 1% Vial) 5 ml STK-MED ONCE .ROUTE ; Start 02/05/17 at 12:59; Stop 02/05/17 at 13:00; Status DC Aminocaproic Acid (Amicar) 5,000 mg STK-MED ONCE IV ; Start 02/05/17 at 12:59; Stop 02/05/17 at 13:00; Status DC Magnesium Sulfate 5 gm STK-MED ONCE .ROUTE ; Start 02/05/17 at 12:59; Stop 02/05 at 13:00; Status DC Calcium Chloride 1000 mg 1,000 mg STK-MED ONCE IV ; Start 02/05/17 at 12:59; Stop 02/05/17 at 13:00; Status DC Albumin Human (Albuminar) 200 ml @ As Directed STK-MED ONCE IV ; Start at 12:59; Stop 02/05/17 at 13:00; Status DC Heparin Sodium (Porcine) 10633 unit 30,000 unit STK-MED ONCE .ROUTE ; Start at 12:59; Stop 02/05/17 at 13:00; Status DC Lactated Ringer's 1,000 ml @ 30 mls/hr Q24H IV Last administered on 02/06/17 12:37; Start 02/05/17 at 13:15; Stop 02/07/17 at 17:31; Status DC Albumin Human 250 ml @ 60 mls/hr PRN Q4HRS PRN IV SEE I/O RECORD Last administered on 02/05/17 17:20; Start 02/05/17 at 13:15; Stop 02/06/17 at 16:09 ; Status DC Vancomycin HCl 1.5 gm/Sodium Chloride 500 ml @ 250 mls/hr Q12H IV ; Start 02/05 at 13:30; Stop 02/06/17 at 15:29; Status UNV Insulin Human Regular/Sodium Chloride (Novolin R Vial/ Iv Normal Saline 150ml) 151.5 ml @ 0 mls/hr CONT PRN PRN IV SEE I/O RECORD; Start 02/05/17 at 13:15; Stop 02/07/17 at 17:31; Status DC Dextrose 25 gm 25 gm PRN Q15MIN PRN IV LOW BLOOD SUGAR; Start 02/05/17 at 13:15 Nitroglycerin/ Dextrose 250 ml @ 0 mls/hr CONT PRN PRN IV SEE I/O RECORD; Start 02/05/17 at 13:15; Stop 02/07/17 at 17:31; Status DC Amiodarone HCl 900 mg/Dextrose 518 ml @ 33.33 mls/ hr CONT PRN PRN IV RUNS OF VT; Start 02/05/17 at 13:15; Stop 02/07/17 at 17:31; Status DC Amiodarone HCl 150 mg/Dextrose 103 ml @ 200 mls/hr 1X PRN PRN IV VT; Start at 13:15; Stop 02/07/17 at 17:31; Status DC Magnesium Sulfate/ Dextrose (Magnesium Sulfate PREMIX 1GM) 100 ml @ 100 mls/hr PRN DAILY PRN IV FOR MAG < 2.2; Start 02/05/17 at 13:15 Famotidine (Pepcid) 20 mg Q48H IVP Last administered on 02/05/17 20:37; Start 02/05/17 at 21:00; Stop 02/06/17 at 15:11; Status DC Ondansetron HCl (Zofran) 4 mg PRN Q4HRS PRN IV NAUSEA/VOMITING Last administered on 02/05/17 20:02; Start 02/05/17 at 13:15 Morphine Sulfate 2 mg PRN Q1HR PRN IV PAIN Last administered on 02/07/17 01:32 ; Start 02/05/17 at 13:15; Stop 02/07/17 at 08:19; Status DC Acetaminophen (Tylenol) 650 mg PRN Q4HRS PRN PO MILD PAIN / TEMP; Start at 13:15 Acetaminophen (Tylenol) 650 mg PRN Q4HRS PRN TX MILD PAIN / TEMP; Start at 13:15 Meperidine HCl 12.5 mg 12.5 mg PRN Q15MIN PRN IV SHIVERING; Start 02/05/17 at 13:15; Stop 02/06/17 at 10:21; Status DC Propofol (Diprivan) 100 ml @ 0 mls/hr CONT PRN PRN IV POSTOP SEDATION UNTIL EXTUBATE Last administered on 02/05/17 17:23; Start 02/05/17 at 13:15; Stop at 22:13; Status DC Senna/Docusate Sodium (Senna Plus) 1 tab BID PO Last administered on 02/08/17 21:33; Start 02/05/17 at 21:00 Bisacodyl (Dulcolax Supp) 10 mg PRN DAILY PRN TX NO BOWEL MOVEMENT; Start 02/05 at 13:15; Stop 02/08/17 at 13:11; Status DC Chlorhexidine Gluconate (Peridex) 15 ml BID MM Last administered on 02/05/17 20:37; Start 02/05/17 at 21:00; Stop 02/05/17 at 22:13; Status DC Aspirin (Ecotrin) 325 mg [id number] PO Last administered on 02/08/17 10:22; Start 02/06/17 at 08:00 Aspirin (Aspirin) 300 mg PRN DAILY PRN TX IF UNABLE TO TAKE PO; Start 02/05/17 at 13:15; Stop 02/07/17 at 17:31; Status DC Albuterol Sulfate (Ventolin Neb Soln) 2.5 mg PRN Q4HRS PRN NEB SHORTNESS OF BREATH Last administered on 02/06/17 00:15; Start 02/05/17 at 13:15 Metoprolol Tartrate 25 mg 25 mg BID PO ; Start 02/06/17 at 09:00; Stop 02/06/17 at 17:16; Status DC Clevidipine (Cleviprex) 100 ml @ 0 mls/hr CONT PRN IV PER PROTOCOL Last administered on 02/05/17 17:25; Start 02/05/17 at 13:15; Stop 02/07/17 at 17:31 ; Status DC Oxycodone/ Acetaminophen (Percocet 5/325) 1 tab PRN Q4HRS PRN PO MILD PAIN Last administered on 02/08/17 05:53; Start 02/05/17 at 13:15 Oxycodone/ Acetaminophen (Percocet 5/325) 2 tab PRN Q4HRS PRN PO MODERATE PAIN , SEVERE PAIN Last administered on 02/09/17 06:05; Start 02/05/17 at 13:15 Vecuronium [place] 10 mg 10 mg STK-MED ONCE IV ; Start 02/05/17 at 13:32; Stop 02/05/17 at 13:33; Status DC Vancomycin HCl/ Sodium Chloride (Iv Sodium Chloride 0.9% 100ml) 100 ml @ 100 mls/hr 1X ONCE IV Last administered on 02/06/17 15:00; Start 02/06/17 at 16: 00; Stop 02/06/17 at 16:59; Status DC Dextrose 25 gm 1X ONCE IV ; Start 02/06/17 at 07:30; Stop 02/06/17 at 07:31; Status DC Calcium Chloride 2,000 mg 1X ONCE IV ; Start 02/06/17 at 07:30; Stop 02/06/17 at 07:31; Status DC Insulin Human Regular (Novolin R Vial) 10 unit 1X ONCE IV ; Start 02/06/17 at 07:30; Stop 02/06/17 at 07:31; Status DC Vecuronium [place] 10 mg 10 mg STK-MED ONCE IV ; Start 02/05/17 at 13:30; Stop 02/06/17 at 07:51; Status DC Sodium Chloride 1,000 ml @ 1,000 mls/hr Q1H PRN IV hypotension; Start 02/06/17 at 08:26; Stop 02/06/17 at 14:25; Status DC Albumin Human (Albuminar) 200 ml @ 200 mls/hr 1X PRN PRN IV Hypotension Last administered on 02/06/17 09:30; Start 02/06/17 at 08:30; Stop 02/06/17 at 14:29 ; Status DC Acetaminophen (Tylenol) 500 mg 1X PRN PRN PO MILD PAIN / TEMP; Start 02/06/17 at 08:30; Stop 02/07/17 at 08:29; Status DC Diphenhydramine HCl (Benadryl) 25 mg 1X PRN PRN IV ITCHING; Start 02/06/17 at 08:30; Stop 02/07/17 at 08:29; Status DC Diphenhydramine HCl (Benadryl) 25 mg 1X PRN PRN IV ITCHING; Start 02/06/17 at 08:30; Stop 02/07/17 at 08:29; Status DC Info (PHARMACY MONITORING -- do not chart) 1 each PRN DAILY PRN MC SEE COMMENTS ; Start 02/06/17 at 08:30; Stop 02/06/17 at 15:09; Status DC Clonazepam (Klonopin) 0.5 mg PRN Q6HRS PRN PO ANXIETY / AGITATION; Start at 10:15 Famotidine 20 mg 20 mg Q48H PO Last administered on 02/07/17 20:55; Start at 21:00 Albumin Human (Plasmanate) 250 ml @ 60 mls/hr PRN Q4HRS PRN IV SEE I/O RECORD ; Start 02/06/17 at 16:09 Alprazolam (Xanax) 0.5 mg PRN Q8HRS PRN PO ANXIETY / AGITATION Last administered on 02/09/17 07:49; Start 02/06/17 at 22:15 Docusate Sodium (Colace) 100 mg DAILY PO Last administered on 02/08/17 10:23; Start 02/07/17 at 09:00 Morphine Sulfate 4 mg PRN Q2HR PRN IV PAIN; Start 02/07/17 at 13:15 Info (PHARMACY MONITORING -- do not chart) 1 each PRN DAILY PRN MC SEE COMMENTS ; Start 02/07/17 at 11:30; Stop 02/07/17 at 11:30; Status DC Ketorolac Tromethamine (Toradol) 15 mg 1X ONCE IV Last administered on 12:00; Start 02/07/17 at 12:00; Stop 02/07/17 at 12:01; Status DC Metoprolol Tartrate 12.5 mg 12.5 mg BID PO Last administered on 02/08/17 21:33 ; Start 02/07/17 at 21:00 Magnesium Sulfate/ Dextrose (Magnesium Sulfate PREMIX 2GM) 50 ml @ 25 mls/hr 1X ONCE IV Last administered on 02/07/17 18:30; Start 02/07/17 at 18:30; Stop 02/07/17 at 20:29; Status DC Darbepoetin [place] (Aranesp) 100 mcg [id number] SQ ; Start 02/09/17 at 21:00 Bisacodyl 10 mg 10 mg PRN DAILY PRN TX NO BOWEL MOVEMENT; Start 02/08/17 at 13: 11 Sodium Chloride 1,000 ml @ 1,000 mls/hr Q1H PRN IV hypotension; Start 02/09/17 at 07:12; Stop 02/09/17 at 13:11 Albumin Human (Albuminar) 200 ml @ 200 mls/hr 1X PRN PRN IV Hypotension; Start 02/09/17 at 07:15; Stop 02/09/17 at 13:14 Acetaminophen (Tylenol) 500 mg 1X PRN PRN PO MILD PAIN / TEMP; Start 02/09/17 at 07:15; Stop 02/10/17 at 07:14 Diphenhydramine HCl (Benadryl) 25 mg 1X PRN PRN IV ITCHING; Start 02/09/17 at 07:15; Stop 02/10/17 at 07:14 Diphenhydramine HCl (Benadryl) 25 mg 1X PRN PRN IV ITCHING; Start 02/09/17 at 07:15; Stop 02/10/17 at 07:14 Info (PHARMACY MONITORING -- do not chart) 1 each PRN DAILY PRN MC SEE COMMENTS ; Start 02/09/17 at 07:15; Status UNV Info (PHARMACY MONITORING -- do not chart) 1 each PRN DAILY PRN MC SEE COMMENTS ; Start 02/09/17 at 07:15; Status UNV Active Scripts Active Clopidogrel (Clopidogrel Bisulfate) 75 Mg Tablet 1 Tab PO DAILY Isosorbide Mononitrate Er (Isosorbide Mononitrate) 30 Mg Tab.er.24h 30 Mg PO DAILY Flomax (Tamsulosin Hcl) 0.4 Mg Cap.er.24h 0.4 Mg PO QHS Reported Hydrocodone-Apap 5-325 (Hydrocodone Bit/Acetaminophen) 1 Each Tablet 1 Tab PO PRN Q6HRS PRN Furosemide 80 Mg Tablet 1 Tab PO BID Nephro-Chilo Tablet (Folic Acid/Vitamin B Comp W-C) 0.8 Mg Tablet 1 Tab PO DAILY Paroxetine Hcl 20 Mg Tablet 40 Mg PO DAILY Tums (Calcium Carbonate) 200 Mg Tab.chew 800 Mg PO TIDAC Omeprazole Magnesium 20 Mg Capsule.dr 20 Mg PO DAILY Clonidine Hcl 0.3 Mg Tablet 1 Tab PO DAILY Hydralazine Hcl 100 Mg Tablet 100 Mg PO TID LAST DOSE: 02/24/16 AFTERNOON NEXT DOSE: 02/24/16 BEDTIME Amlodipine Besylate 10 Mg Tablet 10 Mg PO BID LAST DOSE: 02/24/16 AM NEXT DOSE: 02/25/16 AM Xanax (Alprazolam) 0.5 Mg Tablet 0.5 Mg PO Q6HRS PRN LAST DOSE: 02/23/16 BEDTIME NEXT DOSE: 02/24/16 BEDTIME Losartan Potassium 100 Mg Tablet 100 Mg PO HS LAST DOSE: 02/23/16 BEDTIME NEXT DOSE: 02/24/16 BEDTIME Metoprolol Tartrate 100 Mg Tablet 100 Mg PO BID LAST DOSE: 02/24/16 AM NEXT DOSE: 02/24/16 BEDTIME Lillian Chewable (Aspirin) 81 Mg Tab.chew 324 Mg PO DAILY LAST DOSE: 02/24/16 AM NEXT DOSE: 02/25/16 AM Vitals/I & O Vital Sign - Last 24 Hours 02/08/17 02/08/17 02/08/17 02/08/17 11:57 12:00 12:00 16:00 Temp 98.4 98.0 98.4 98.0 Pulse 74 78 Resp 16 14 B/P 126/59 126/59 Pulse Ox 95 O2 Delivery Nasal Cannula Nasal Cannula Nasal Cannula O2 Flow Rate 1.5 1.5 1.5 02/08/17 02/08/17 02/08/17 02/08/17 17:45 19:57 20:00 21:00 Temp 98.6 98.3 98.6 98.3 Pulse 70 79 Resp 14 14 16 B/P 123/50 121/52 Pulse Ox 95 95 95 O2 Delivery Room Air Room Air Room Air Room Air 02/08/17 02/09/17 02/09/17 02/09/17 21:33 00:00 04:00 06:05 Temp 98.4 98.7 98.4 98.7 Pulse 86 69 72 Resp 16 18 B/P 121/51 132/60 120/48 Pulse Ox 96 94 O2 Delivery Room Air Room Air Room Air 02/09/17 08:00 O2 Delivery Nasal Cannula O2 Flow Rate 1.5 Intake and Output 02/08/17 02/08/17 02/09/17 15:00 23:00 07:00 Intake Total 125 ml 75 ml 500 ml Output Total 0 ml Balance 125 ml 75 ml 500 ml Nutrition Consultation Dietary Evaluation: Recommendations by RD: Increase Calorie Intake Comments: Continue to encourage diet compliance to the cardiac/renal diets Intake 25% of meals, does not meet nutrition needs. Rec. add novasource renal BID until intake improves (475 calories/22 grams protein) Expected Outcomes/Goals: meet 75% estimated nutrition needs Malnutrition Findings: Reduced Tray Filler Strength: N/A Weight Status: Overweight ARSALAN ESCAMILLA MD Feb 09, 2017 11:01
--- NOTE | 2017-02-09 12:04 | PDOC ---
PROGRESS NOTES Subjective Subjective SEEN IN FOLLOW UP OF ESRD Objective Objective Vital Signs Date Time Temp Pulse Resp B/P Pulse Ox O2 Delivery O2 Flow Rate FiO2 02/09/17 08:00 Nasal Cannula 1.5 02/09/17 04:00 98.7 72 18 120/48 94 98.7 Intake and Output 02/09/17 07:00 Intake Total 700 ml Output Total 0 ml Balance 700 ml Intake Oral 700 ml Output Urine Total 0 ml Physical Exam Abdomen: Normal bowel sounds, Soft, No tenderness, No hepatosplenomegaly, No masses Heart: Regular rate, Normal S1, Normal S2, No murmurs, Gallops Extremities: No clubbing, No cyanosis, No edema, Normal pulses, No tenderness/ swelling General: Alert, Oriented X3, Cooperative, No acute distress Lungs: Clear to auscultation, Normal air movement Psych/Mental Status: Mental status NL, Mood NL Diagnosis RENAL FAILURE: ESRD, Other Assessment Assessment Problems Medical Problems: (1) Flank pain Status: Acute (2) Pancreatitis Status: Acute (3) Unstable angina pectoris Status: Acute Plan Plan of Care SEEN ON DIALYSIS AND TOLERATING WELL Comment Review of Relevant I have reviewed the following items dionte (where applicable) has been applied. Labs Laboratory Tests Test 02/08/17 06:00 02/08/17 12:14 02/09/17 04:30 White Blood Count 7.7x10^3/uL (4.0-11.0) Red Blood Count 2.21x10^6/uL (4.30-5.70) Hemoglobin 6.7g/dL (13.0-17.5) 8.2g/dL (13.0-17.5) Hematocrit 20.5% (39.0-53.0) 25.3% (39.0-53.0) Mean Corpuscular Volume 93fL (79-100) Mean Corpuscular Hemoglobin 31pg (25-35) Mean Corpuscular Hemoglobin Concent 33g/dL (31-37) 33g/dL (31-37) Red Cell Distribution Width 15.1% (11.5-14.5) Platelet Count 155x10^3/uL (140-400) Sodium Level 139mmol/L (136-145) 142mmol/L (136-145) Potassium Level 3.8mmol/L (3.5-5.1) 3.7mmol/L (3.5-5.1) Chloride Level 100mmol/L (98-107) 100mmol/L (98-107) Carbon Dioxide Level 29mmol/L (21-32) 26mmol/L (21-32) Anion Gap 10 (6-14) 16 (6-14) Blood Urea Nitrogen 25mg/dL (8-26) 42mg/dL (8-26) Creatinine 5.7mg/dL (0.7-1.3) 8.0mg/dL (0.7-1.3) Estimated GFR (Cockcroft-Gault) 10.2 6.9 Glucose Level 114mg/dL (70-99) 102mg/dL (70-99) Calcium Level 8.8mg/dL (8.5-10.1) 8.5mg/dL (8.5-10.1) Phosphorus Level 3.8mg/dL (2.6-4.7) 3.4mg/dL (2.6-4.7) Magnesium Level 2.5mg/dL (1.8-2.4) 2.7mg/dL (1.8-2.4) Albumin 3.0g/dL (3.4-5.0) 2.8g/dL (3.4-5.0) Glucose (Fingerstick) 121mg/dL (70-99) Laboratory Tests Test 02/08/17 12:14 02/09/17 04:30 Glucose (Fingerstick) 121mg/dL (70-99) Hemoglobin 8.2g/dL (13.0-17.5) Hematocrit 25.3% (39.0-53.0) Mean Corpuscular Hemoglobin Concent 33g/dL (31-37) Sodium Level 142mmol/L (136-145) Potassium Level 3.7mmol/L (3.5-5.1) Chloride Level 100mmol/L (98-107) Carbon Dioxide Level 26mmol/L (21-32) Anion Gap 16 (6-14) Blood Urea Nitrogen 42mg/dL (8-26) Creatinine 8.0mg/dL (0.7-1.3) Estimated GFR (Cockcroft-Gault) 6.9 Glucose Level 102mg/dL (70-99) Calcium Level 8.5mg/dL (8.5-10.1) Phosphorus Level 3.4mg/dL (2.6-4.7) Magnesium Level 2.7mg/dL (1.8-2.4) Albumin 2.8g/dL (3.4-5.0) Microbiology 02/03/17 Throat Culture - Final, Complete 02/03/17 - Final, Complete Medications Current Medications Hydromorphone HCl (Dilaudid) 1 mg 1X ONCE IV Last administered on 01/28/17 23 :57; Start 01/28/17 at 23:30; Stop 01/28/17 at 23:31; Status DC Ondansetron HCl 4 mg 4 mg 1X ONCE IV Last administered on 01/28/17 23:57; Start 01/28/17 at 23:30; Stop 01/28/17 at 23:31; Status DC Sodium Chloride (Iv Sodium Chloride 0.9% 500ml Bag) 500 ml @ 0 mls/hr 1X ONCE IV Last administered on 01/28/17 23:39; Start 01/28/17 at 23:30; Stop at 23:31; Status DC Diphenhydramine HCl (Benadryl) 50 mg 1X ONCE IVP Last administered on 00:29; Start 01/29/17 at 00:30; Stop 01/29/17 at 00:31; Status DC Diphenhydramine HCl (Benadryl) 50 mg STK-MED ONCE .ROUTE ; Start 01/29/17 at 00: 26; Stop 01/29/17 at 00:27; Status DC Morphine Sulfate 4 mg 1X ONCE IV Last administered on 01/29/17 03:55; Start 01/29/17 at 02:15; Stop 01/29/17 at 02:16; Status DC Ondansetron HCl (Zofran) 4 mg PRN Q8HRS PRN IV NAUSEA/VOMITING; Start 01/29/17 at 03:00; Stop 01/30/17 at 02:59; Status DC Morphine Sulfate 4 mg 4 mg PRN Q2HR PRN IV PAIN Last administered on 01/29/17 09:59; Start 01/29/17 at 03:00; Stop 01/29/17 at 11:47; Status DC Sodium Chloride (Iv Sodium Chloride 0.9% 1000ml Bag) 1,000 ml @ 50 mls/hr Q20H IV Last administered on 01/30/17 07:28; Start 01/29/17 at 02:12; Stop at 02:11; Status DC Alprazolam (Xanax) 0.5 mg PRN Q6HRS PRN PO ANXIETY / AGITATION Last administered on 02/03/17 07:45; Start 01/29/17 at 11:30; Stop 02/03/17 at 12:13 ; Status DC Amlodipine Besylate (Norvasc) 10 mg BID PO Last administered on 02/04/17 20:55 ; Start 01/29/17 at 12:00; Stop 02/06/17 at 17:20; Status DC Aspirin (Children'S Aspirin) 324 mg DAILY PO ; Start 01/29/17 at 12:00; Stop at 18:32; Status DC Calcium Carbonate/ Glycine (Tums) 800 mg TIDAC PO Last administered on 10:21; Start 01/29/17 at 11:30 Clonidine HCl (Catapres) 0.3 mg DAILY PO Last administered on 02/04/17 14:59; Start 01/30/17 at 09:00; Stop 02/06/17 at 08:54; Status DC Clopidogrel Bisulfate (Plavix) 75 mg DAILY PO ; Start 01/29/17 at 12:00; Stop at 09:45; Status DC Vitamin B Complex/ Vitamin C (Nephro-Chilo) 1 tab DAILY PO Last administered on 02/08/17 10:24; Start 01/29/17 at 12:00 Furosemide (Lasix) 80 mg [id number] PO Last administered on 02/04/17 15:11; Start 01/29/17 at 14:00; Stop 02/06/17 at 08:54; Status DC Acetaminophen/ Hydrocodone Bitart (Lortab 5/325) 1 tab PRN Q6HRS PRN PO PAIN; Start 01/29/17 at 11:30; Stop 01/29/17 at 18:58; Status DC Isosorbide Mononitrate (Imdur) 30 mg DAILY PO Last administered on 02/04/17 15 :01; Start 01/29/17 at 12:00; Stop 02/06/17 at 08:54; Status DC Paroxetine HCl (Paxil) 40 mg DAILY PO Last administered on 02/08/17 10:22; Start 01/29/17 at 12:00 Tamsulosin HCl (Flomax) 0.4 mg QHS PO Last administered on 02/08/17 21:33; Start 01/29/17 at 21:00 Hydralazine HCl (Apresoline) 100 mg TID PO Last administered on 02/04/17 20:54 ; Start 01/29/17 at 14:00; Stop 02/06/17 at 17:16; Status DC Losartan Potassium (Cozaar) 100 mg QHS PO Last administered on 02/04/17 20:56 ; Start 01/29/17 at 21:00; Stop 02/06/17 at 17:16; Status DC Metoprolol Tartrate (Lopressor) 100 mg BID PO Last administered on 02/05/17 06 :34; Start 01/29/17 at 12:00; Stop 02/05/17 at 13:28; Status DC Pantoprazole Sodium (Protonix) 40 mg DAILYAC PO Last administered on 02/08/17 10:21; Start 01/29/17 at 12:00 Darbepoetin Percy (Aranesp) 60 mcg [id number] SQ Last administered on 02/02/17 21 :15; Start 02/02/17 at 21:00; Stop 02/08/17 at 09:40; Status DC Morphine Sulfate 6 mg 6 mg PRN Q2HR PRN IV PAIN Last administered on 01/30/17 19:22; Start 01/29/17 at 11:45; Stop 02/01/17 at 15:20; Status DC Sodium Chloride (Iv Sodium Chloride 0.9% 1000ml Bag) 1,000 ml @ 1,000 mls/hr Q1H PRN IV hypotension; Start 01/29/17 at 12:55; Stop 01/29/17 at 18:54; Status DC Diphenhydramine HCl (Benadryl) 25 mg 1X PRN PRN IV ITCHING Last administered on 01/29/17 19:12; Start 01/29/17 at 13:00; Stop 01/30/17 at 12:59; Status DC Diphenhydramine HCl (Benadryl) 25 mg 1X PRN PRN IV ITCHING Last administered on 01/29/17t 13:16; Start 01/29/17 at 13:00; Stop 01/30/17 at 12:59; Status DC Info (PHARMACY MONITORING -- do not chart) 1 each PRN DAILY PRN MC SEE COMMENTS ; Start 01/29/17 at 13:00; Status UNV Info (PHARMACY MONITORING -- do not chart) 1 each PRN DAILY PRN MC SEE COMMENTS ; Start 01/29/17 at 13:00; Stop 02/03/17 at 09:04; Status DC Nitroglycerin (Nitrostat) 0.4 mg STK-MED ONCE SL ; Start 01/29/17 at 16:55; Stop 01/29/17 at 16:56; Status DC Heparin Sodium (Porcine) 4000 unit 4,000 unit 1X ONCE IV Last administered on 01/29/17t 17:37; Start 01/29/17 at 17:30; Stop 01/29/17 at 17:31; Status DC Heparin Sodium/ Sodium Chloride 500 ml @ As Directed STK-MED ONCE .ROUTE ; Start 01/29/17 at 17:54; Stop 01/29/17 at 17:55; Status DC Lidocaine HCl 20 ml STK-MED ONCE .ROUTE ; Start 01/29/17 at 17:54; Stop at 17:55; Status DC Iodixanol (Visipaque 320) 100 ml STK-MED ONCE .ROUTE ; Start 01/29/17 at 17:54; Stop 01/29/17 at 17:55; Status DC Metoprolol Tartrate (Lopressor) 5 mg STK-MED ONCE .ROUTE ; Start 01/29/17 at 18: 05; Stop 01/29/17 at 18:06; Status DC Fentanyl Citrate (Fentanyl 2ml Vial) 100 mcg STK-MED ONCE .ROUTE ; Start at 18:05; Stop 01/29/17 at 18:06; Status DC Midazolam HCl 2 mg 2 mg STK-MED ONCE .ROUTE ; Start 01/29/17 at 18:05; Stop at 18:06; Status DC Heparin Sodium/ Dextrose 500 ml @ As Directed STK-MED ONCE IV ; Start 01/29/17 at 18:18; Stop 01/29/17 at 18:19; Status DC Heparin Sodium (Porcine) 10,000 unit STK-MED ONCE .ROUTE ; Start 01/29/17 at 18: 18; Stop 01/29/17 at 18:19; Status DC Metoprolol Tartrate (Lopressor) 5 mg STK-MED ONCE .ROUTE ; Start 01/29/17 at 18: 25; Stop 01/29/17 at 18:26; Status DC Heparin Sodium/ Sodium Chloride 1,000 unit 1X ONCE IART Last administered on 18:51; Start 01/29/17 at 18:45; Stop 01/29/17 at 18:53; Status DC Heparin Sodium/ Sodium Chloride 1,000 unit 1X ONCE IART Last administered on 18:51; Start 01/29/17 at 18:45; Stop 01/29/17 at 18:53; Status DC Midazolam HCl (Versed) 1 mg 1X ONCE IV Last administered on 01/29/17 18:53; Start 01/29/17 at 18:45; Stop 01/29/17 at 18:53; Status DC Fentanyl Citrate (Fentanyl 2ml Vial) 50 mcg 1X ONCE IV Last administered on 18:53; Start 01/29/17 at 18:45; Stop 01/29/17 at 18:53; Status DC Iodixanol (Visipaque 320) 105 ml 1X ONCE IART Last administered on 01/29/17 18:52; Start 01/29/17 at 18:45; Stop 01/29/17 at 18:53; Status DC Heparin Sodium (Porcine) 4000 unit 4,000 unit 1X ONCE IV Last administered on 01/29/17 18:53; Start 01/29/17 at 18:45; Stop 01/29/17 at 18:53; Status DC Heparin Sodium/ Dextrose 500 ml @ 20 mls/hr CONT PRN IV SEE I/O RECORD; Start 01/29/17 at 18:24; Stop 01/30/17 at 14:01; Status DC Metoprolol Tartrate (Lopressor) 10 mg 1X ONCE IVP Last administered on 18:52; Start 01/29/17 at 18:45; Stop 01/29/17 at 18:53; Status DC Lidocaine HCl 10 ml 1X ONCE IJ Last administered on 01/29/17 18:52; Start at 18:45; Stop 01/29/17 at 18:53; Status DC Sodium Chloride (Normal Saline Flush) 3 ml QSHIFT PRN IV AFTER MEDS AND BLOOD DRAWS; Start 01/29/17 at 18:45 Docusate Sodium (Colace) 100 mg BID PO Last administered on 02/06/17 21:02; Start 01/29/17 at 21:00; Stop 02/07/17 at 13:21; Status DC Fentanyl Citrate (Fentanyl 2ml Vial) 50 mcg PRN Q1HR PRN IV SEVERE PAIN Last administered on 02/05/17 22:00; Start 01/29/17 at 18:45; Stop 02/06/17 at 10:21 ; Status DC Cyclobenzaprine HCl (Flexeril) 10 mg PRN TID PRN PO MUSCLE SPASMS Last administered on 01/30/17 05:22; Start 01/29/17 at 18:45 Ondansetron HCl (Zofran) 4 mg PRN Q6HRS PRN IV NAUSEA/VOMITING; Start 01/29/17 at 18:45; Stop 02/05/17 at 13:28; Status DC Nitroglycerin (Nitrostat) 0.4 mg PRN Q5MIN PRN SL CHEST PAIN; Start 01/29/17 at 18:45 Acetaminophen/ Hydrocodone Bitart (Lortab 5/325) 1 tab PRN Q4HRS PRN PO MILD PAIN Last administered on 02/04/17 17:16; Start 01/29/17 at 18:45; Stop at 10:21; Status DC Diltiazem HCl 5 mg 5 mg 1X ONCE IVP Last administered on 01/29/17 19:23; Start 01/29/17 at 19:15; Stop 01/29/17 at 19:18; Status DC Diltiazem HCl/ Dextrose (Cardizem) 125 ml @ 0 mls/hr CONT PRN IV SEE I/O RECORD ; Start 01/29/17 at 19:15; Stop 02/03/17 at 12:13; Status DC Diphenhydramine HCl (Benadryl) 50 mg PRN Q8HRS PRN IVP ITCHING Last administered on 02/02/17 09:41; Start 01/29/17 at 19:15; Stop 02/03/17 at 09:05 ; Status DC Nitroglycerin (Nitrostat) 0.4 mg STK-MED ONCE SL ; Start 01/29/17 at 17:00; Stop 01/30/17 at 08:02; Status DC Info (Anti-Coagulation Monitoring By Pharmacy) 1 each PRN DAILY PRN MC SEE COMMENTS Last administered on 02/04/17 09:51; Start 01/30/17 at 10:45; Stop at 18:43; Status DC Heparin Sodium (Porcine) 3000 unit 3,000 unit 1X ONCE IV Last administered on 01/30/17 17:36; Start 01/30/17 at 18:00; Stop 01/30/17 at 18:01; Status DC Heparin Sodium/ Dextrose 500 ml @ 24 mls/hr CONT PRN IV SEE I/O RECORD Last administered on 02/03/17 05:47; Start 01/30/17 at 18:00; Stop 02/04/17 at 18:41 ; Status DC Sodium Chloride (Iv Sodium Chloride 0.9% 1000ml Bag) 1,000 ml @ 50 mls/hr Q20H IV Last administered on 01/31/17 23:30; Start 01/31/17 at 02:45; Stop at 12:13; Status DC Dextrose 25 gm 1X ONCE IV Last administered on 01/31/17 06:05; Start at 06:30; Stop 01/31/17 at 06:31; Status DC Insulin Human Regular (Novolin R Vial) 10 unit 1X ONCE IV Last administered on 01/31/17 06:09; Start 01/31/17 at 06:30; Stop 01/31/17 at 06:31; Status DC Dextrose 25 gm 25 gm 1X ONCE IV Last administered on 01/31/17 09:04; Start at 09:00; Stop 01/31/17 at 09:03; Status DC Sodium Chloride 1,000 ml @ 1,000 mls/hr Q1H PRN IV hypotension; Start 01/31/17 at 09:28; Stop 01/31/17 at 15:27; Status DC Albumin Human (Albuminar) 200 ml @ 200 mls/hr 1X PRN PRN IV Hypotension; Start 01/31/17 at 09:30; Stop 01/31/17 at 15:29; Status DC Acetaminophen (Tylenol) 500 mg 1X PRN PRN PO MILD PAIN / TEMP; Start 01/31/17 at 09:30; Stop 02/01/17 at 09:29; Status DC Diphenhydramine HCl (Benadryl) 25 mg 1X PRN PRN IV ITCHING Last administered on 01/31/17 18:05; Start 01/31/17 at 09:30; Stop 02/01/17 at 09:29; Status DC Diphenhydramine HCl (Benadryl) 25 mg 1X PRN PRN IV ITCHING; Start 01/31/17 at 09:30; Stop 02/01/17 at 09:29; Status DC Info (PHARMACY MONITORING -- do not chart) 1 each PRN DAILY PRN MC SEE COMMENTS ; Start 01/31/17 at 09:30; Status UNV Diphenhydramine HCl (Benadryl) 50 mg PRN Q6HRS PRN IVP ITCHING Last administered on 02/09/17 07:49; Start 02/01/17 at 15:15 Fentanyl Citrate (Fentanyl 2ml Vial) 25 mcg PRN Q4HRS PRN IV MODERATE PAIN; Start 02/01/17 at 15:15; Stop 02/06/17 at 10:21; Status DC Diphenhydramine HCl (Benadryl) 25 mg 1X PRN PRN IV ITCHING; Start 02/02/17 at 09:30; Stop 02/03/17 at 09:29; Status DC Info (PHARMACY MONITORING -- do not chart) 1 each PRN DAILY PRN MC SEE COMMENTS ; Start 02/02/17 at 09:30; Stop 02/03/17 at 09:05; Status DC Info (PHARMACY MONITORING -- do not chart) 1 each PRN DAILY PRN MC SEE COMMENTS ; Start 02/02/17 at 09:30; Status Cancel Throat Lozenges (Cepacol Sore Throat Lozenge) 1 estelita PRN Q2HRS PRN PO SORE THROAT Last administered on 02/03/17 20:49; Start 02/03/17 at 07:15; Stop 02/05 at 13:28; Status DC Alprazolam (Xanax) 0.25 mg PRN Q6HRS PRN PO ANXIETY / AGITATION, 1ST CHOIC Last administered on 02/03/17 14:15; Start 02/03/17 at 12:15; Stop 02/06/17 at 10:21; Status DC Alprazolam 0.5 mg 0.5 mg PRN Q6HRS PRN PO ANXIETY / AGITATION, 2ND CHOIC Last administered on 02/06/17 08:13; Start 02/03/17 at 12:30; Stop 02/06/17 at 10:21 ; Status DC Vancomycin HCl 250 ml @ 250 mls/hr 1X PREOP ONCE IV Last administered on 02/05 08:33; Start 02/05/17 at 06:00; Stop 02/05/17 at 06:59; Status DC Ondansetron HCl (Zofran) 4 mg PRN Q6HRS PRN IV Nausea; Start 02/05/17 at 07:00 ; Stop 02/05/17 at 13:28; Status DC Fentanyl Citrate (Fentanyl 2ml Vial) 25 mcg PRN Q5MIN PRN IV MILD PAIN; Start 02/05/17 at 07:00; Stop 02/05/17 at 22:13; Status DC Fentanyl Citrate (Fentanyl 2ml Vial) 50 mcg PRN Q5MIN PRN IV MODERATE PAIN; Start 02/05/17 at 07:00; Stop 02/05/17 at 22:13; Status DC Morphine Sulfate 1 mg 1 mg PRN Q10MIN PRN IV SEVERE PAIN Last administered on 19:01; Start 02/05/17 at 07:00; Stop 02/06/17 at 06:59; Status DC Lactated Ringer's (Iv Lactated Ringers) 1,000 ml @ 0 mls/hr Q0M IV Last administered on 02/05/17 07:32; Start 02/05/17 at 07:00; Stop 02/05/17 at 13:28 ; Status DC Lidocaine HCl 2 ml 1X PRN PRN ID IV START; Start 02/05/17 at 07:00; Stop at 06:59; Status DC Hydromorphone HCl (Dilaudid) 0.5 mg PRN Q10MIN PRN IV SEVERE PAIN, Second choice; Start 02/05/17 at 07:00; Stop 02/06/17 at 06:59; Status DC Prochlorperazine Edisylate 5 mg 5 mg PACU PRN PRN IV NAUSEA; Start 02/05/17 at 07:00; Stop 02/06/17 at 06:59; Status DC Sodium Chloride (Iv Sodium Chloride 0.9% 1000ml Bag) 1,000 ml @ 1,000 mls/hr Q1H PRN IV hypotension; Start 02/04/17 at 09:55; Stop 02/04/17 at 15:54; Status DC Info (PHARMACY MONITORING -- do not chart) 1 each PRN DAILY PRN MC SEE COMMENTS ; Start 02/04/17 at 10:00 Throat Lozenges 1 estelita 1 estelita PRN Q2HRS PRN PO SORE THROAT Last administered on 06:01; Start 02/04/17 at 11:00 Magnesium Sulfate/ Dextrose 50 ml @ 25 mls/hr PRN DAILY PRN IV for Mag < 1.7 on am labs; Start 02/04/17 at 11:30; Stop 02/05/17 at 13:28; Status DC Potassium Chloride 70 meq/ Sodium Bicarbonate 12.5 meq/Lidocaine HCl 24 ml/ Parenteral Electrolytes 571.5 ml @ 571.5 mls/ hr 1X PERIOP ONCE IRR Last administered on 02/05/17 09:42; Start 02/05/17 at 06:00; Stop 02/05/17 at 06:59 ; Status DC Potassium Chloride 15 meq/ Sodium Bicarbonate 12.5 meq/Parenteral Electrolytes 520 ml @ 520 mls/hr 1X PERIOP ONCE IRR Last administered on 02/05/17 09:42; Start 02/05/17 at 06:00; Stop 02/05/17 at 06:59; Status DC Heparin Sodium (Porcine)/ Lactated Ringer's (Iv Lactated Ringers) 1,020 ml @ 1, 020 mls/hr 1X PERIOP ONCE IRR Last administered on 02/05/17 08:42; Start at 06:00; Stop 02/05/17 at 06:59; Status DC Aminocaproic Acid (Amicar) 5,000 mg STK-MED ONCE IV ; Start 02/05/17 at 06:13; Stop 02/05/17 at 06:14; Status DC Etomidate (Amidate) 20 mg STK-MED ONCE IV ; Start 02/05/17 at 06:13; Stop at 06:14; Status DC Lidocaine HCl 100 mg STK-MED ONCE .ROUTE ; Start 02/05/17 at 06:13; Stop at 06:14; Status DC Rocuronium Zap (Zemuron) 100 mg STK-MED ONCE .ROUTE ; Start 02/05/17 at 06: 14; Stop 02/05/17 at 06:15; Status DC Ephedrine Sulfate 50 mg STK-MED ONCE IV ; Start 02/05/17 at 06:14; Stop at 06:15; Status DC Phenylephrine HCl (Alexis-Synephrine Inj) 10 mg STK-MED ONCE .ROUTE ; Start at 06:14; Stop 02/05/17 at 06:15; Status DC Sufentanil Citrate (Sufenta) 100 mcg STK-MED ONCE .ROUTE ; Start 02/05/17 at 06: 14; Stop 02/05/17 at 06:15; Status DC Midazolam HCl (Versed) 2 mg STK-MED ONCE .ROUTE ; Start 02/05/17 at 06:14; Stop 02/05/17 at 06:15; Status DC Fentanyl Citrate 100 mcg 100 mcg STK-MED ONCE .ROUTE ; Start 02/05/17 at 06:15; Stop 02/05/17 at 06:16; Status DC Nitroglycerin/ Dextrose (Nitroglycerin Drip) 250 ml @ As Directed STK-MED ONCE IV ; Start 02/05/17 at 06:15; Stop 02/05/17 at 06:16; Status DC Heparin Sodium (Porcine) 30,000 unit STK-MED ONCE .ROUTE ; Start 02/05/17 at 06: 16; Stop 02/05/17 at 06:17; Status DC Cellulose 1 each STK-MED ONCE .ROUTE Last administered on 02/05/17t 08:42; Start 02/05/17 at 06:42; Stop 02/05/17 at 06:43; Status DC Papaverine HCl 60 mg STK-MED ONCE .ROUTE Last administered on 02/05/17 08:42; Start 02/05/17 at 06:42; Stop 02/05/17 at 06:43; Status DC Aspirin (Aspirin) 300 mg STK-MED ONCE .ROUTE Last administered on 02/05/17 12: 58; Start 02/05/17 at 06:42; Stop 02/05/17 at 06:43; Status DC Mineral Oil (Muri-Lube) 10 ml STK-MED ONCE MC Last administered on 02/05/17 12 :10; Start 02/05/17 at 06:43; Stop 02/05/17 at 06:44; Status DC Sodium Chloride 50 ml 50 ml STK-MED ONCE IJ Last administered on 02/05/17 08: 42; Start 02/05/17 at 06:43; Stop 02/05/17 at 06:44; Status DC Mannitol (Mannitol Iv Soln) 500 ml @ 0 mls/hr 1X ONCE IV ; Start 02/05/17 at 07 :15; Stop 02/05/17 at 07:16; Status DC Sufentanil Citrate (Sufenta) 100 mcg STK-MED ONCE .ROUTE ; Start 02/05/17 at 08: 01; Stop 02/05/17 at 08:02; Status DC Midazolam HCl (Versed) 5 mg STK-MED ONCE .ROUTE ; Start 02/05/17 at 09:10; Stop 02/05/17 at 09:11; Status DC Heparin Sodium (Porcine) 10,000 unit STK-MED ONCE .ROUTE ; Start 02/05/17 at 09: 15; Stop 02/05/17 at 09:16; Status DC Rocuronium Zap (Zemuron) 100 mg STK-MED ONCE .ROUTE ; Start 02/05/17 at 09: 43; Stop 02/05/17 at 09:44; Status DC Heparin Sodium (Porcine) 10,000 unit STK-MED ONCE .ROUTE ; Start 02/05/17 at 10: 57; Stop 02/05/17 at 10:58; Status DC Protamine Sulfate 250 mg STK-MED ONCE IV ; Start 02/05/17 at 11:08; Stop at 11:09; Status DC Protamine Sulfate 50 mg STK-MED ONCE IV ; Start 02/05/17 at 11:09; Stop at 11:10; Status DC Protamine Sulfate 50 mg STK-MED ONCE IV ; Start 02/05/17 at 11:09; Stop at 11:10; Status DC Protamine Sulfate 50 mg STK-MED ONCE IV ; Start 02/05/17 at 11:09; Stop at 11:10; Status DC Isoflurane (Isoflurane) 90 ml STK-MED ONCE IH ; Start 02/05/17 at 11:34; Stop at 11:35; Status DC Heparin Sodium (Porcine) 10,000 unit STK-MED ONCE .ROUTE ; Start 02/05/17 at 12: 59; Stop 02/05/17 at 13:00; Status DC Lidocaine HCl (Xylocaine-Mpf 1% Vial) 5 ml STK-MED ONCE .ROUTE ; Start 02/05/17 at 12:59; Stop 02/05/17 at 13:00; Status DC Aminocaproic Acid (Amicar) 5,000 mg STK-MED ONCE IV ; Start 02/05/17 at 12:59; Stop 02/05/17 at 13:00; Status DC Magnesium Sulfate 5 gm STK-MED ONCE .ROUTE ; Start 02/05/17 at 12:59; Stop 02/05 at 13:00; Status DC Calcium Chloride 1000 mg 1,000 mg STK-MED ONCE IV ; Start 02/05/17 at 12:59; Stop 02/05/17 at 13:00; Status DC Albumin Human (Albuminar) 200 ml @ As Directed STK-MED ONCE IV ; Start at 12:59; Stop 02/05/17 at 13:00; Status DC Heparin Sodium (Porcine) 93137 unit 30,000 unit STK-MED ONCE .ROUTE ; Start at 12:59; Stop 02/05/17 at 13:00; Status DC Lactated Ringer's 1,000 ml @ 30 mls/hr Q24H IV Last administered on 02/06/17t 12:37; Start 02/05/17 at 13:15; Stop 02/07/17 at 17:31; Status DC Albumin Human 250 ml @ 60 mls/hr PRN Q4HRS PRN IV SEE I/O RECORD Last administered on 02/05/17 17:20; Start 02/05/17 at 13:15; Stop 02/06/17 at 16:09 ; Status DC Vancomycin HCl 1.5 gm/Sodium Chloride 500 ml @ 250 mls/hr Q12H IV ; Start 02/05 at 13:30; Stop 02/06/17 at 15:29; Status UNV Insulin Human Regular/Sodium Chloride (Novolin R Vial/ Iv Normal Saline 150ml) 151.5 ml @ 0 mls/hr CONT PRN PRN IV SEE I/O RECORD; Start 02/05/17 at 13:15; Stop 02/07/17 at 17:31; Status DC Dextrose 25 gm 25 gm PRN Q15MIN PRN IV LOW BLOOD SUGAR; Start 02/05/17 at 13:15 Nitroglycerin/ Dextrose 250 ml @ 0 mls/hr CONT PRN PRN IV SEE I/O RECORD; Start 02/05/17 at 13:15; Stop 02/07/17 at 17:31; Status DC Amiodarone HCl 900 mg/Dextrose 518 ml @ 33.33 mls/ hr CONT PRN PRN IV RUNS OF VT; Start 02/05/17 at 13:15; Stop 02/07/17 at 17:31; Status DC Amiodarone HCl 150 mg/Dextrose 103 ml @ 200 mls/hr 1X PRN PRN IV [place]; Start at 13:15; Stop 02/07/17 at 17:31; Status DC Magnesium Sulfate/ Dextrose (Magnesium Sulfate PREMIX 1GM) 100 ml @ 100 mls/hr PRN DAILY PRN IV FOR MAG < 2.2; Start 02/05/17 at 13:15 Famotidine (Pepcid) 20 mg Q48H IVP Last administered on 02/05/17 20:37; Start 02/05/17 at 21:00; Stop 02/06/17 at 15:11; Status DC Ondansetron HCl (Zofran) 4 mg PRN Q4HRS PRN IV NAUSEA/VOMITING Last administered on 02/05/17 20:02; Start 02/05/17 at 13:15 Morphine Sulfate 2 mg PRN Q1HR PRN IV PAIN Last administered on 02/07/17 01:32 ; Start 02/05/17 at 13:15; Stop 02/07/17 at 08:19; Status DC Acetaminophen (Tylenol) 650 mg PRN Q4HRS PRN PO MILD PAIN / TEMP; Start at 13:15 Acetaminophen (Tylenol) 650 mg PRN Q4HRS PRN [place] MILD PAIN / TEMP; Start at 13:15 Meperidine HCl 12.5 mg 12.5 mg PRN Q15MIN PRN IV SHIVERING; Start 02/05/17 at 13:15; Stop 02/06/17 at 10:21; Status DC Propofol (Diprivan) 100 ml @ 0 mls/hr CONT PRN PRN IV POSTOP SEDATION UNTIL EXTUBATE Last administered on 02/05/17 17:23; Start 02/05/17 at 13:15; Stop at 22:13; Status DC Senna/Docusate Sodium (Senna Plus) 1 tab BID PO Last administered on 02/08/17 21:33; Start 02/05/17 at 21:00 Bisacodyl (Dulcolax Supp) 10 mg PRN DAILY PRN [place] NO BOWEL MOVEMENT; Start 02/05 at 13:15; Stop 02/08/17 at 13:11; Status DC Chlorhexidine Gluconate (Peridex) 15 ml BID MM Last administered on 02/05/17 20:37; Start 02/05/17 at 21:00; Stop 02/05/17 at 22:13; Status DC Aspirin (Ecotrin) 325 mg [id number] PO Last administered on 02/08/17 10:22; Start 02/06/17 at 08:00 Aspirin (Aspirin) 300 mg PRN DAILY PRN [place] IF UNABLE TO TAKE PO; Start 02/05/17 at 13:15; Stop 02/07/17 at 17:31; Status DC Albuterol Sulfate (Ventolin Neb Soln) 2.5 mg PRN Q4HRS PRN NEB SHORTNESS OF BREATH Last administered on 02/06/17 00:15; Start 02/05/17 at 13:15 Metoprolol Tartrate 25 mg 25 mg BID PO ; Start 02/06/17 at 09:00; Stop 02/06/17 at 17:16; Status DC Clevidipine (Cleviprex) 100 ml @ 0 mls/hr CONT PRN IV PER PROTOCOL Last administered on 02/05/17 17:25; Start 02/05/17 at 13:15; Stop 02/07/17 at 17:31 ; Status DC Oxycodone/ Acetaminophen (Percocet 5/325) 1 tab PRN Q4HRS PRN PO MILD PAIN Last administered on 02/08/17 05:53; Start 02/05/17 at 13:15 Oxycodone/ Acetaminophen (Percocet 5/325) 2 tab PRN Q4HRS PRN PO MODERATE PAIN , SEVERE PAIN Last administered on 02/09/17 06:05; Start 02/05/17 at 13:15 Vecuronium Zap 10 mg 10 mg STK-MED ONCE IV ; Start 02/05/17 at 13:32; Stop 02/05/17 at 13:33; Status DC Vancomycin HCl/ Sodium Chloride (Iv Sodium Chloride 0.9% 100ml) 100 ml @ 100 mls/hr 1X ONCE IV Last administered on 02/06/17 15:00; Start 02/06/17 at 16: 00; Stop 02/06/17 at 16:59; Status DC Dextrose 25 gm 1X ONCE IV ; Start 02/06/17 at 07:30; Stop 02/06/17 at 07:31; Status DC Calcium Chloride 2,000 mg 1X ONCE IV ; Start 02/06/17 at 07:30; Stop 02/06/17 at 07:31; Status DC Insulin Human Regular (Novolin R Vial) 10 unit 1X ONCE IV ; Start 02/06/17 at 07:30; Stop 02/06/17 at 07:31; Status DC Vecuronium Zap 10 mg 10 mg STK-MED ONCE IV ; Start 02/05/17 at 13:30; Stop 02/06/17 at 07:51; Status DC Sodium Chloride 1,000 ml @ 1,000 mls/hr Q1H PRN IV hypotension; Start 02/06/17 at 08:26; Stop 02/06/17 at 14:25; Status DC Albumin Human (Albuminar) 200 ml @ 200 mls/hr 1X PRN PRN IV Hypotension Last administered on 02/06/17 09:30; Start 02/06/17 at 08:30; Stop 02/06/17 at 14:29 ; Status DC Acetaminophen (Tylenol) 500 mg 1X PRN PRN PO MILD PAIN / TEMP; Start 02/06/17 at 08:30; Stop 02/07/17 at 08:29; Status DC Diphenhydramine HCl (Benadryl) 25 mg 1X PRN PRN IV ITCHING; Start 02/06/17 at 08:30; Stop 02/07/17 at 08:29; Status DC Diphenhydramine HCl (Benadryl) 25 mg 1X PRN PRN IV ITCHING; Start 02/06/17 at 08:30; Stop 02/07/17 at 08:29; Status DC Info (PHARMACY MONITORING -- do not chart) 1 each PRN DAILY PRN MC SEE COMMENTS ; Start 02/06/17 at 08:30; Stop 02/06/17 at 15:09; Status DC Clonazepam (Klonopin) 0.5 mg PRN Q6HRS PRN PO ANXIETY / AGITATION; Start at 10:15 Famotidine 20 mg 20 mg Q48H PO Last administered on 02/07/17 20:55; Start at 21:00 Albumin Human (Plasmanate) 250 ml @ 60 mls/hr PRN Q4HRS PRN IV SEE I/O RECORD ; Start 02/06/17 at 16:09 Alprazolam (Xanax) 0.5 mg PRN Q8HRS PRN PO ANXIETY / AGITATION Last administered on 02/09/17 07:49; Start 02/06/17 at 22:15 Docusate Sodium (Colace) 100 mg DAILY PO Last administered on 02/08/17 10:23; Start 02/07/17 at 09:00 Morphine Sulfate 4 mg PRN Q2HR PRN IV PAIN; Start 02/07/17 at 13:15 Info (PHARMACY MONITORING -- do not chart) 1 each PRN DAILY PRN MC SEE COMMENTS ; Start 02/07/17 at 11:30; Stop 02/07/17 at 11:30; Status DC Ketorolac Tromethamine (Toradol) 15 mg 1X ONCE IV Last administered on 12:00; Start 02/07/17 at 12:00; Stop 02/07/17 at 12:01; Status DC Metoprolol Tartrate 12.5 mg 12.5 mg BID PO Last administered on 02/08/17 21:33 ; Start 02/07/17 at 21:00 Magnesium Sulfate/ Dextrose (Magnesium Sulfate PREMIX 2GM) 50 ml @ 25 mls/hr 1X ONCE IV Last administered on 02/07/17 18:30; Start 02/07/17 at 18:30; Stop 02/07/17 at 20:29; Status DC Darbepoetin Percy (Aranesp) 100 mcg [id number] SQ ; Start 02/09/17 at 21:00 Bisacodyl 10 mg 10 mg PRN DAILY PRN [place] NO BOWEL MOVEMENT; Start 02/08/17 at 13: 11 Sodium Chloride 1,000 ml @ 1,000 mls/hr Q1H PRN IV hypotension; Start 02/09/17 at 07:12; Stop 02/09/17 at 13:11 Albumin Human (Albuminar) 200 ml @ 200 mls/hr 1X PRN PRN IV Hypotension; Start 02/09/17 at 07:15; Stop 02/09/17 at 13:14 Acetaminophen (Tylenol) 500 mg 1X PRN PRN PO MILD PAIN / TEMP; Start 02/09/17 at 07:15; Stop 02/10/17 at 07:14 Diphenhydramine HCl (Benadryl) 25 mg 1X PRN PRN IV ITCHING; Start 02/09/17 at 07:15; Stop 02/10/17 at 07:14 Diphenhydramine HCl (Benadryl) 25 mg 1X PRN PRN IV ITCHING; Start 02/09/17 at 07:15; Stop 02/10/17 at 07:14 Info (PHARMACY MONITORING -- do not chart) 1 each PRN DAILY PRN MC SEE COMMENTS ; Start 02/09/17 at 07:15; Status UNV Info (PHARMACY MONITORING -- do not chart) 1 each PRN DAILY PRN MC SEE COMMENTS ; Start 02/09/17 at 07:15; Status UNV Active Scripts Active Clopidogrel (Clopidogrel Bisulfate) 75 Mg Tablet 1 Tab PO DAILY Isosorbide Mononitrate Er (Isosorbide Mononitrate) 30 Mg Tab.er.24h 30 Mg PO DAILY Flomax (Tamsulosin Hcl) 0.4 Mg Cap.er.24h 0.4 Mg PO QHS Reported Hydrocodone-Apap 5-325 (Hydrocodone Bit/Acetaminophen) 1 Each Tablet 1 Tab PO PRN Q6HRS PRN Furosemide 80 Mg Tablet 1 Tab PO BID Nephro-Chilo Tablet (Folic Acid/Vitamin B Comp W-C) 0.8 Mg Tablet 1 Tab PO DAILY Paroxetine Hcl 20 Mg Tablet 40 Mg PO DAILY Tums (Calcium Carbonate) 200 Mg Tab.chew 800 Mg PO TIDAC Omeprazole Magnesium 20 Mg Capsule.dr 20 Mg PO DAILY Clonidine Hcl 0.3 Mg Tablet 1 Tab PO DAILY Hydralazine Hcl 100 Mg Tablet 100 Mg PO TID LAST DOSE: 02/24/16 AFTERNOON NEXT DOSE: 02/24/16 BEDTIME Amlodipine Besylate 10 Mg Tablet 10 Mg PO BID LAST DOSE: 02/24/16 AM NEXT DOSE: 02/25/16 AM Xanax (Alprazolam) 0.5 Mg Tablet 0.5 Mg PO Q6HRS PRN LAST DOSE: 02/23/16 BEDTIME NEXT DOSE: 02/24/16 BEDTIME Losartan Potassium 100 Mg Tablet 100 Mg PO HS LAST DOSE: 02/23/16 BEDTIME NEXT DOSE: 02/24/16 BEDTIME Metoprolol Tartrate 100 Mg Tablet 100 Mg PO BID LAST DOSE: 02/24/16 AM NEXT DOSE: 02/24/16 BEDTIME Lillian Chewable (Aspirin) 81 Mg Tab.chew 324 Mg PO DAILY LAST DOSE: 02/24/16 AM NEXT DOSE: 02/25/16 AM Vitals/I & O Vital Sign - Last 24 Hours 02/08/17 02/08/17 02/08/17 02/08/17 16:00 17:45 19:57 20:00 Temp 98.6 98.3 98.6 98.3 Pulse 70 79 Resp 14 14 B/P 123/50 121/52 Pulse Ox 95 95 O2 Delivery Nasal Cannula Room Air Room Air Room Air O2 Flow Rate 1.5 02/08/17 02/08/17 02/09/17 02/09/17 21:00 21:33 00:00 04:00 Temp 98.4 98.7 98.4 98.7 Pulse 86 69 72 Resp 16 16 18 B/P 121/51 132/60 120/48 Pulse Ox 95 96 94 O2 Delivery Room Air Room Air Room Air 02/09/17 02/09/17 06:05 08:00 O2 Delivery Room Air Nasal Cannula O2 Flow Rate 1.5 Intake and Output 02/08/17 02/08/17 02/09/17 15:00 23:00 07:00 Intake Total 125 ml 75 ml 500 ml Output Total 0 ml Balance 125 ml 75 ml 500 ml Nutrition Consultation Dietary Evaluation: Recommendations by RD: Increase Calorie Intake Comments: Continue to encourage diet compliance to the cardiac/renal diets Intake 25% of meals, does not meet nutrition needs. Rec. add novasource renal BID until intake improves (475 calories/22 grams protein) Expected Outcomes/Goals: meet 75% estimated nutrition needs Malnutrition Findings: Reduced Complaints Coordinator Strength: N/A Weight Status: Overweight ZUHAIR IBRAHIM MD Feb 09, 2017 12:04
[2017-02-09] MEDS: SENNOSIDES/DOCUSATE 8.6/50MG TABLET. PO SCH ×2 (12:50→20:54)
[2017-02-09] MEDS: METOPROLOL TART IMMED RELEASE 25 MG TABLET PO SCH ×2 (12:51→20:53)
[2017-02-09] MEDS: PAROXETINE 20 MG TABLET. PO SCH (12:52)
[2017-02-09] MEDS: FOLIC/VIT B COMP W-C (RENAL) TABLET. PO SCH (12:52)
[2017-02-09] MEDS: DOCUSATE SODIUM 100 MG CAPSULE PO SCH (12:52)
[2017-02-09] MEDS: PANTOPRAZOLE 40 MG TABLET. PO SCH (12:52)
[2017-02-09] MEDS: ASPIRIN ENTERIC COATED 325 MG TABLET.DR. PO SCH (12:52)
--- NOTE | 2017-02-09 14:38 | PDOC ---
PROGRESS NOTES Subjective Subjective Patient feels better. Seems to be having less pain. No confusion today. Had dialysis earlier. Objective Objective Vital Signs Date Time Temp Pulse Resp B/P Pulse Ox O2 Delivery O2 Flow Rate FiO2 02/09/17 12:52 22 Room Air 02/09/17 12:51 80 125/64 02/09/17 08:00 1.5 02/09/17 07:05 96 02/09/17 04:00 98.7 98.7 Intake and Output 02/09/17 07:00 Intake Total 700 ml Output Total 0 ml Balance 700 ml Intake Oral 700 ml Output Urine Total 0 ml Physical Exam Physical Exam Lungs moving air well. Heart regular rate, no changes. Extremities no edema. Assessment Assessment Patient improving. I agree with present plan. Need to increase the patient's level of activity and perhaps he may be able to go home on Saturday after dialysis. Problems Medical Problems: (1) Flank pain Status: Acute (2) Pancreatitis Status: Acute (3) Unstable angina pectoris Status: Acute Comment Review of Relevant I have reviewed the following items dionte (where applicable) has been applied. Labs Laboratory Tests Test 02/08/17 06:00 02/08/17 12:14 02/09/17 04:30 White Blood Count 7.7x10^3/uL (4.0-11.0) Red Blood Count 2.21x10^6/uL (4.30-5.70) Hemoglobin 6.7g/dL (13.0-17.5) 8.2g/dL (13.0-17.5) Hematocrit 20.5% (39.0-53.0) 25.3% (39.0-53.0) Mean Corpuscular Volume 93fL (79-100) Mean Corpuscular Hemoglobin 31pg (25-35) Mean Corpuscular Hemoglobin Concent 33g/dL (31-37) 33g/dL (31-37) Red Cell Distribution Width 15.1% (11.5-14.5) Platelet Count 155x10^3/uL (140-400) Sodium Level 139mmol/L (136-145) 142mmol/L (136-145) Potassium Level 3.8mmol/L (3.5-5.1) 3.7mmol/L (3.5-5.1) Chloride Level 100mmol/L (98-107) 100mmol/L (98-107) Carbon Dioxide Level 29mmol/L (21-32) 26mmol/L (21-32) Anion Gap 10 (6-14) 16 (6-14) Blood Urea Nitrogen 25mg/dL (8-26) 42mg/dL (8-26) Creatinine 5.7mg/dL (0.7-1.3) 8.0mg/dL (0.7-1.3) Estimated GFR (Cockcroft-Gault) 10.2 6.9 Glucose Level 114mg/dL (70-99) 102mg/dL (70-99) Calcium Level 8.8mg/dL (8.5-10.1) 8.5mg/dL (8.5-10.1) Phosphorus Level 3.8mg/dL (2.6-4.7) 3.4mg/dL (2.6-4.7) Magnesium Level 2.5mg/dL (1.8-2.4) 2.7mg/dL (1.8-2.4) Albumin 3.0g/dL (3.4-5.0) 2.8g/dL (3.4-5.0) Glucose (Fingerstick) 121mg/dL (70-99) Laboratory Tests Test 02/09/17 04:30 Hemoglobin 8.2g/dL (13.0-17.5) Hematocrit 25.3% (39.0-53.0) Mean Corpuscular Hemoglobin Concent 33g/dL (31-37) Sodium Level 142mmol/L (136-145) Potassium Level 3.7mmol/L (3.5-5.1) Chloride Level 100mmol/L (98-107) Carbon Dioxide Level 26mmol/L (21-32) Anion Gap 16 (6-14) Blood Urea Nitrogen 42mg/dL (8-26) Creatinine 8.0mg/dL (0.7-1.3) Estimated GFR (Cockcroft-Gault) 6.9 Glucose Level 102mg/dL (70-99) Calcium Level 8.5mg/dL (8.5-10.1) Phosphorus Level 3.4mg/dL (2.6-4.7) Magnesium Level 2.7mg/dL (1.8-2.4) Albumin 2.8g/dL (3.4-5.0) Microbiology 02/03/17 Throat Culture - Final, Complete 02/03/17 - Final, Complete Medications Current Medications Hydromorphone HCl (Dilaudid) 1 mg 1X ONCE IV Last administered on 01/28/17 23 :57; Start 01/28/17 at 23:30; Stop 01/28/17 at 23:31; Status DC Ondansetron HCl 4 mg 4 mg 1X ONCE IV Last administered on 01/28/17 23:57; Start 01/28/17 at 23:30; Stop 01/28/17 at 23:31; Status DC Sodium Chloride (Iv Sodium Chloride 0.9% 500ml Bag) 500 ml @ 0 mls/hr 1X ONCE IV Last administered on 01/28/17 23:39; Start 01/28/17 at 23:30; Stop at 23:31; Status DC Diphenhydramine HCl (Benadryl) 50 mg 1X ONCE IVP Last administered on 00:29; Start 01/29/17 at 00:30; Stop 01/29/17 at 00:31; Status DC Diphenhydramine HCl (Benadryl) 50 mg STK-MED ONCE .ROUTE ; Start 01/29/17 at 00: 26; Stop 01/29/17 at 00:27; Status DC Morphine Sulfate 4 mg 1X ONCE IV Last administered on 01/29/17 03:55; Start 01/29/17 at 02:15; Stop 01/29/17 at 02:16; Status DC Ondansetron HCl (Zofran) 4 mg PRN Q8HRS PRN IV NAUSEA/VOMITING; Start 01/29/17 at 03:00; Stop 01/30/17 at 02:59; Status DC Morphine Sulfate 4 mg 4 mg PRN Q2HR PRN IV PAIN Last administered on 01/29/17 09:59; Start 01/29/17 at 03:00; Stop 01/29/17 at 11:47; Status DC Sodium Chloride (Iv Sodium Chloride 0.9% 1000ml Bag) 1,000 ml @ 50 mls/hr Q20H IV Last administered on 01/30/17 07:28; Start 01/29/17 at 02:12; Stop at 02:11; Status DC Alprazolam (Xanax) 0.5 mg PRN Q6HRS PRN PO ANXIETY / AGITATION Last administered on 02/03/17 07:45; Start 01/29/17 at 11:30; Stop 02/03/17 at 12:13 ; Status DC Amlodipine Besylate (Norvasc) 10 mg BID PO Last administered on 02/04/17 20:55 ; Start 01/29/17 at 12:00; Stop 02/06/17 at 17:20; Status DC Aspirin (Children'S Aspirin) 324 mg DAILY PO ; Start 01/29/17 at 12:00; Stop at 18:32; Status DC Calcium Carbonate/ Glycine (Tums) 800 mg TIDAC PO Last administered on 10:21; Start 01/29/17 at 11:30 Clonidine HCl (Catapres) 0.3 mg DAILY PO Last administered on 02/04/17 14:59; Start 01/30/17 at 09:00; Stop 02/06/17 at 08:54; Status DC Clopidogrel Bisulfate (Plavix) 75 mg DAILY PO ; Start 01/29/17 at 12:00; Stop at 09:45; Status DC Vitamin B Complex/ Vitamin C (Nephro-Chilo) 1 tab DAILY PO Last administered on 02/09/17 12:52; Start 01/29/17 at 12:00 Furosemide (Lasix) 80 mg [id number] PO Last administered on 02/04/17 15:11; Start 01/29/17 at 14:00; Stop 02/06/17 at 08:54; Status DC Acetaminophen/ Hydrocodone Bitart (Lortab 5/325) 1 tab PRN Q6HRS PRN PO PAIN; Start 01/29/17 at 11:30; Stop 01/29/17 at 18:58; Status DC Isosorbide Mononitrate (Imdur) 30 mg DAILY PO Last administered on 02/04/17 15 :01; Start 01/29/17 at 12:00; Stop 02/06/17 at 08:54; Status DC Paroxetine HCl (Paxil) 40 mg DAILY PO Last administered on 02/09/17 12:52; Start 01/29/17 at 12:00 Tamsulosin HCl (Flomax) 0.4 mg QHS PO Last administered on 02/08/17 21:33; Start 01/29/17 at 21:00 Hydralazine HCl (Apresoline) 100 mg TID PO Last administered on 02/04/17 20:54 ; Start 01/29/17 at 14:00; Stop 02/06/17 at 17:16; Status DC Losartan Potassium (Cozaar) 100 mg QHS PO Last administered on 02/04/17 20:56 ; Start 01/29/17 at 21:00; Stop 02/06/17 at 17:16; Status DC Metoprolol Tartrate (Lopressor) 100 mg BID PO Last administered on 02/05/17 06 :34; Start 01/29/17 at 12:00; Stop 02/05/17 at 13:28; Status DC Pantoprazole Sodium (Protonix) 40 mg DAILYAC PO Last administered on 02/09/17 12:52; Start 01/29/17 at 12:00 Darbepoetin Percy (Aranesp) 60 mcg [id number] SQ Last administered on 02/02/17 21 :15; Start 02/02/17 at 21:00; Stop 02/08/17 at 09:40; Status DC Morphine Sulfate 6 mg 6 mg PRN Q2HR PRN IV PAIN Last administered on 01/30/17 19:22; Start 01/29/17 at 11:45; Stop 02/01/17 at 15:20; Status DC Sodium Chloride (Iv Sodium Chloride 0.9% 1000ml Bag) 1,000 ml @ 1,000 mls/hr Q1H PRN IV hypotension; Start 01/29/17 at 12:55; Stop 01/29/17 at 18:54; Status DC Diphenhydramine HCl (Benadryl) 25 mg 1X PRN PRN IV ITCHING Last administered on 01/29/17 19:12; Start 01/29/17 at 13:00; Stop 01/30/17 at 12:59; Status DC Diphenhydramine HCl (Benadryl) 25 mg 1X PRN PRN IV ITCHING Last administered on 01/29/17 13:16; Start 01/29/17 at 13:00; Stop 01/30/17 at 12:59; Status DC Info (PHARMACY MONITORING -- do not chart) 1 each PRN DAILY PRN MC SEE COMMENTS ; Start 01/29/17 at 13:00; Status UNV Info (PHARMACY MONITORING -- do not chart) 1 each PRN DAILY PRN MC SEE COMMENTS ; Start 01/29/17 at 13:00; Stop 02/03/17 at 09:04; Status DC Nitroglycerin (Nitrostat) 0.4 mg STK-MED ONCE SL ; Start 01/29/17 at 16:55; Stop 01/29/17 at 16:56; Status DC Heparin Sodium (Porcine) 4000 unit 4,000 unit 1X ONCE IV Last administered on 01/29/17 17:37; Start 01/29/17 at 17:30; Stop 01/29/17 at 17:31; Status DC Heparin Sodium/ Sodium Chloride 500 ml @ As Directed STK-MED ONCE .ROUTE ; Start 01/29/17 at 17:54; Stop 01/29/17 at 17:55; Status DC Lidocaine HCl 20 ml STK-MED ONCE .ROUTE ; Start 01/29/17 at 17:54; Stop at 17:55; Status DC Iodixanol (Visipaque 320) 100 ml STK-MED ONCE .ROUTE ; Start 01/29/17 at 17:54; Stop 01/29/17 at 17:55; Status DC Metoprolol Tartrate (Lopressor) 5 mg STK-MED ONCE .ROUTE ; Start 01/29/17 at 18: 05; Stop 01/29/17 at 18:06; Status DC Fentanyl Citrate (Fentanyl 2ml Vial) 100 mcg STK-MED ONCE .ROUTE ; Start at 18:05; Stop 01/29/17 at 18:06; Status DC Midazolam HCl 2 mg 2 mg STK-MED ONCE .ROUTE ; Start 01/29/17 at 18:05; Stop at 18:06; Status DC Heparin Sodium/ Dextrose 500 ml @ As Directed STK-MED ONCE IV ; Start 01/29/17 at 18:18; Stop 01/29/17 at 18:19; Status DC Heparin Sodium (Porcine) 10,000 unit STK-MED ONCE .ROUTE ; Start 01/29/17 at 18: 18; Stop 01/29/17 at 18:19; Status DC Metoprolol Tartrate (Lopressor) 5 mg STK-MED ONCE .ROUTE ; Start 01/29/17 at 18: 25; Stop 01/29/17 at 18:26; Status DC Heparin Sodium/ Sodium Chloride 1,000 unit 1X ONCE IART Last administered on 18:51; Start 01/29/17 at 18:45; Stop 01/29/17 at 18:53; Status DC Heparin Sodium/ Sodium Chloride 1,000 unit 1X ONCE IART Last administered on 18:51; Start 01/29/17 at 18:45; Stop 01/29/17 at 18:53; Status DC Midazolam HCl (Versed) 1 mg 1X ONCE IV Last administered on 01/29/17 18:53; Start 01/29/17 at 18:45; Stop 01/29/17 at 18:53; Status DC Fentanyl Citrate (Fentanyl 2ml Vial) 50 mcg 1X ONCE IV Last administered on 18:53; Start 01/29/17 at 18:45; Stop 01/29/17 at 18:53; Status DC Iodixanol (Visipaque 320) 105 ml 1X ONCE IART Last administered on 01/29/17 18:52; Start 01/29/17 at 18:45; Stop 01/29/17 at 18:53; Status DC Heparin Sodium (Porcine) 4000 unit 4,000 unit 1X ONCE IV Last administered on 01/29/17 18:53; Start 01/29/17 at 18:45; Stop 01/29/17 at 18:53; Status DC Heparin Sodium/ Dextrose 500 ml @ 20 mls/hr CONT PRN IV SEE I/O RECORD; Start 01/29/17 at 18:24; Stop 01/30/17 at 14:01; Status DC Metoprolol Tartrate (Lopressor) 10 mg 1X ONCE IVP Last administered on 18:52; Start 01/29/17 at 18:45; Stop 01/29/17 at 18:53; Status DC Lidocaine HCl 10 ml 1X ONCE IJ Last administered on 01/29/17 18:52; Start at 18:45; Stop 01/29/17 at 18:53; Status DC Sodium Chloride (Normal Saline Flush) 3 ml QSHIFT PRN IV AFTER MEDS AND BLOOD DRAWS; Start 01/29/17 at 18:45 Docusate Sodium (Colace) 100 mg BID PO Last administered on 02/06/17 21:02; Start 01/29/17 at 21:00; Stop 02/07/17 at 13:21; Status DC Fentanyl Citrate (Fentanyl 2ml Vial) 50 mcg PRN Q1HR PRN IV SEVERE PAIN Last administered on 02/05/17 22:00; Start 01/29/17 at 18:45; Stop 02/06/17 at 10:21 ; Status DC Cyclobenzaprine HCl (Flexeril) 10 mg PRN TID PRN PO MUSCLE SPASMS Last administered on 01/30/17 05:22; Start 01/29/17 at 18:45 Ondansetron HCl (Zofran) 4 mg PRN Q6HRS PRN IV NAUSEA/VOMITING; Start 01/29/17 at 18:45; Stop 02/05/17 at 13:28; Status DC Nitroglycerin (Nitrostat) 0.4 mg PRN Q5MIN PRN SL CHEST PAIN; Start 01/29/17 at 18:45 Acetaminophen/ Hydrocodone Bitart (Lortab 5/325) 1 tab PRN Q4HRS PRN PO MILD PAIN Last administered on 02/04/17 17:16; Start 01/29/17 at 18:45; Stop at 10:21; Status DC Diltiazem HCl 5 mg 5 mg 1X ONCE IVP Last administered on 01/29/17 19:23; Start 01/29/17 at 19:15; Stop 01/29/17 at 19:18; Status DC Diltiazem HCl/ Dextrose (Cardizem) 125 ml @ 0 mls/hr CONT PRN IV SEE I/O RECORD ; Start 01/29/17 at 19:15; Stop 02/03/17 at 12:13; Status DC Diphenhydramine HCl (Benadryl) 50 mg PRN Q8HRS PRN IVP ITCHING Last administered on 02/02/17 09:41; Start 01/29/17 at 19:15; Stop 02/03/17 at 09:05 ; Status DC Nitroglycerin (Nitrostat) 0.4 mg STK-MED ONCE SL ; Start 01/29/17 at 17:00; Stop 01/30/17 at 08:02; Status DC Info (Anti-Coagulation Monitoring By Pharmacy) 1 each PRN DAILY PRN MC SEE COMMENTS Last administered on 02/04/17 09:51; Start 01/30/17 at 10:45; Stop at 18:43; Status DC Heparin Sodium (Porcine) 3000 unit 3,000 unit 1X ONCE IV Last administered on 01/30/17 17:36; Start 01/30/17 at 18:00; Stop 01/30/17 at 18:01; Status DC Heparin Sodium/ Dextrose 500 ml @ 24 mls/hr CONT PRN IV SEE I/O RECORD Last administered on 02/03/17 05:47; Start 01/30/17 at 18:00; Stop 02/04/17 at 18:41 ; Status DC Sodium Chloride (Iv Sodium Chloride 0.9% 1000ml Bag) 1,000 ml @ 50 mls/hr Q20H IV Last administered on 01/31/17 23:30; Start 01/31/17 at 02:45; Stop at 12:13; Status DC Dextrose 25 gm 1X ONCE IV Last administered on 01/31/17 06:05; Start at 06:30; Stop 01/31/17 at 06:31; Status DC Insulin Human Regular (Novolin R Vial) 10 unit 1X ONCE IV Last administered on 01/31/17 06:09; Start 01/31/17 at 06:30; Stop 01/31/17 at 06:31; Status DC Dextrose 25 gm 25 gm 1X ONCE IV Last administered on 01/31/17 09:04; Start at 09:00; Stop 01/31/17 at 09:03; Status DC Sodium Chloride 1,000 ml @ 1,000 mls/hr Q1H PRN IV hypotension; Start 01/31/17 at 09:28; Stop 01/31/17 at 15:27; Status DC Albumin Human (Albuminar) 200 ml @ 200 mls/hr 1X PRN PRN IV Hypotension; Start 01/31/17 at 09:30; Stop 01/31/17 at 15:29; Status DC Acetaminophen (Tylenol) 500 mg 1X PRN PRN PO MILD PAIN / TEMP; Start 01/31/17 at 09:30; Stop 02/01/17 at 09:29; Status DC Diphenhydramine HCl (Benadryl) 25 mg 1X PRN PRN IV ITCHING Last administered on 01/31/17 18:05; Start 01/31/17 at 09:30; Stop 02/01/17 at 09:29; Status DC Diphenhydramine HCl (Benadryl) 25 mg 1X PRN PRN IV ITCHING; Start 01/31/17 at 09:30; Stop 02/01/17 at 09:29; Status DC Info (PHARMACY MONITORING -- do not chart) 1 each PRN DAILY PRN MC SEE COMMENTS ; Start 01/31/17 at 09:30; Status UNV Diphenhydramine HCl (Benadryl) 50 mg PRN Q6HRS PRN IVP ITCHING Last administered on 02/09/17 07:49; Start 02/01/17 at 15:15 Fentanyl Citrate (Fentanyl 2ml Vial) 25 mcg PRN Q4HRS PRN IV MODERATE PAIN; Start 02/01/17 at 15:15; Stop 02/06/17 at 10:21; Status DC Diphenhydramine HCl (Benadryl) 25 mg 1X PRN PRN IV ITCHING; Start 02/02/17 at 09:30; Stop 02/03/17 at 09:29; Status DC Info (PHARMACY MONITORING -- do not chart) 1 each PRN DAILY PRN MC SEE COMMENTS ; Start 02/02/17 at 09:30; Stop 02/03/17 at 09:05; Status DC Info (PHARMACY MONITORING -- do not chart) 1 each PRN DAILY PRN MC SEE COMMENTS ; Start 02/02/17 at 09:30; Status Cancel Throat Lozenges (Cepacol Sore Throat Lozenge) 1 estelita PRN Q2HRS PRN PO SORE THROAT Last administered on 02/03/17 20:49; Start 02/03/17 at 07:15; Stop 02/05 at 13:28; Status DC Alprazolam (Xanax) 0.25 mg PRN Q6HRS PRN PO ANXIETY / AGITATION, 1ST CHOIC Last administered on 02/03/17 14:15; Start 02/03/17 at 12:15; Stop 02/06/17 at 10:21; Status DC Alprazolam 0.5 mg 0.5 mg PRN Q6HRS PRN PO ANXIETY / AGITATION, 2ND CHOIC Last administered on 02/06/17 08:13; Start 02/03/17 at 12:30; Stop 02/06/17 at 10:21 ; Status DC Vancomycin HCl 250 ml @ 250 mls/hr 1X PREOP ONCE IV Last administered on 02/05 08:33; Start 02/05/17 at 06:00; Stop 02/05/17 at 06:59; Status DC Ondansetron HCl (Zofran) 4 mg PRN Q6HRS PRN IV Nausea; Start 02/05/17 at 07:00 ; Stop 02/05/17 at 13:28; Status DC Fentanyl Citrate (Fentanyl 2ml Vial) 25 mcg PRN Q5MIN PRN IV MILD PAIN; Start 02/05/17 at 07:00; Stop 02/05/17 at 22:13; Status DC Fentanyl Citrate (Fentanyl 2ml Vial) 50 mcg PRN Q5MIN PRN IV MODERATE PAIN; Start 02/05/17 at 07:00; Stop 02/05/17 at 22:13; Status DC Morphine Sulfate 1 mg 1 mg PRN Q10MIN PRN IV SEVERE PAIN Last administered on 19:01; Start 02/05/17 at 07:00; Stop 02/06/17 at 06:59; Status DC Lactated Ringer's (Iv Lactated Ringers) 1,000 ml @ 0 mls/hr Q0M IV Last administered on 02/05/17 07:32; Start 02/05/17 at 07:00; Stop 02/05/17 at 13:28 ; Status DC Lidocaine HCl 2 ml 1X PRN PRN ID IV START; Start 02/05/17 at 07:00; Stop at 06:59; Status DC Hydromorphone HCl (Dilaudid) 0.5 mg PRN Q10MIN PRN IV SEVERE PAIN, Second choice; Start 02/05/17 at 07:00; Stop 02/06/17 at 06:59; Status DC Prochlorperazine Edisylate 5 mg 5 mg PACU PRN PRN IV NAUSEA; Start 02/05/17 at 07:00; Stop 02/06/17 at 06:59; Status DC Sodium Chloride (Iv Sodium Chloride 0.9% 1000ml Bag) 1,000 ml @ 1,000 mls/hr Q1H PRN IV hypotension; Start 02/04/17 at 09:55; Stop 02/04/17 at 15:54; Status DC Info (PHARMACY MONITORING -- do not chart) 1 each PRN DAILY PRN MC SEE COMMENTS ; Start 02/04/17 at 10:00 Throat Lozenges 1 estelita 1 estelita PRN Q2HRS PRN PO SORE THROAT Last administered on 06:01; Start 02/04/17 at 11:00 Magnesium Sulfate/ Dextrose 50 ml @ 25 mls/hr PRN DAILY PRN IV for Mag < 1.7 on am labs; Start 02/04/17 at 11:30; Stop 02/05/17 at 13:28; Status DC Potassium Chloride 70 meq/ Sodium Bicarbonate 12.5 meq/Lidocaine HCl 24 ml/ Parenteral Electrolytes 571.5 ml @ 571.5 mls/ hr 1X PERIOP ONCE IRR Last administered on 02/05/17 09:42; Start 02/05/17 at 06:00; Stop 02/05/17 at 06:59 ; Status DC Potassium Chloride 15 meq/ Sodium Bicarbonate 12.5 meq/Parenteral Electrolytes 520 ml @ 520 mls/hr 1X PERIOP ONCE IRR Last administered on 02/05/17 09:42; Start 02/05/17 at 06:00; Stop 02/05/17 at 06:59; Status DC Heparin Sodium (Porcine)/ Lactated Ringer's (Iv Lactated Ringers) 1,020 ml @ 1, 020 mls/hr 1X PERIOP ONCE IRR Last administered on 02/05/17 08:42; Start at 06:00; Stop 02/05/17 at 06:59; Status DC Aminocaproic Acid (Amicar) 5,000 mg STK-MED ONCE IV ; Start 02/05/17 at 06:13; Stop 02/05/17 at 06:14; Status DC Etomidate (Amidate) 20 mg STK-MED ONCE IV ; Start 02/05/17 at 06:13; Stop at 06:14; Status DC Lidocaine HCl 100 mg STK-MED ONCE .ROUTE ; Start 02/05/17 at 06:13; Stop at 06:14; Status DC Rocuronium [place] (Zemuron) 100 mg STK-MED ONCE .ROUTE ; Start 02/05/17 at 06: 14; Stop 02/05/17 at 06:15; Status DC Ephedrine Sulfate 50 mg STK-MED ONCE IV ; Start 02/05/17 at 06:14; Stop at 06:15; Status DC Phenylephrine HCl (Alexis-Synephrine Inj) 10 mg STK-MED ONCE .ROUTE ; Start at 06:14; Stop 02/05/17 at 06:15; Status DC Sufentanil Citrate (Sufenta) 100 mcg STK-MED ONCE .ROUTE ; Start 02/05/17 at 06: 14; Stop 02/05/17 at 06:15; Status DC Midazolam HCl (Versed) 2 mg STK-MED ONCE .ROUTE ; Start 02/05/17 at 06:14; Stop 02/05/17 at 06:15; Status DC Fentanyl Citrate 100 mcg 100 mcg STK-MED ONCE .ROUTE ; Start 02/05/17 at 06:15; Stop 02/05/17 at 06:16; Status DC Nitroglycerin/ Dextrose (Nitroglycerin Drip) 250 ml @ As Directed STK-MED ONCE IV ; Start 02/05/17 at 06:15; Stop 02/05/17 at 06:16; Status DC Heparin Sodium (Porcine) 30,000 unit STK-MED ONCE .ROUTE ; Start 02/05/17 at 06: 16; Stop 02/05/17 at 06:17; Status DC Cellulose 1 each STK-MED ONCE .ROUTE Last administered on 02/05/17 08:42; Start 02/05/17 at 06:42; Stop 02/05/17 at 06:43; Status DC Papaverine HCl 60 mg STK-MED ONCE .ROUTE Last administered on 02/05/17 08:42; Start 02/05/17 at 06:42; Stop 02/05/17 at 06:43; Status DC Aspirin (Aspirin) 300 mg STK-MED ONCE .ROUTE Last administered on 02/05/17 12: 58; Start 02/05/17 at 06:42; Stop 02/05/17 at 06:43; Status DC Mineral Oil (Muri-Lube) 10 ml STK-MED ONCE MC Last administered on 02/05/17 12 :10; Start 02/05/17 at 06:43; Stop 02/05/17 at 06:44; Status DC Sodium Chloride 50 ml 50 ml STK-MED ONCE IJ Last administered on 02/05/17 08: 42; Start 02/05/17 at 06:43; Stop 02/05/17 at 06:44; Status DC Mannitol (Mannitol Iv Soln) 500 ml @ 0 mls/hr 1X ONCE IV ; Start 02/05/17 at 07 :15; Stop 02/05/17 at 07:16; Status DC Sufentanil Citrate (Sufenta) 100 mcg STK-MED ONCE .ROUTE ; Start 02/05/17 at 08: 01; Stop 02/05/17 at 08:02; Status DC Midazolam HCl (Versed) 5 mg STK-MED ONCE .ROUTE ; Start 02/05/17 at 09:10; Stop 02/05/17 at 09:11; Status DC Heparin Sodium (Porcine) 10,000 unit STK-MED ONCE .ROUTE ; Start 02/05/17 at 09: 15; Stop 02/05/17 at 09:16; Status DC Rocuronium [place] (Zemuron) 100 mg STK-MED ONCE .ROUTE ; Start 02/05/17 at 09: 43; Stop 02/05/17 at 09:44; Status DC Heparin Sodium (Porcine) 10,000 unit STK-MED ONCE .ROUTE ; Start 02/05/17 at 10: 57; Stop 02/05/17 at 10:58; Status DC Protamine Sulfate 250 mg STK-MED ONCE IV ; Start 02/05/17 at 11:08; Stop at 11:09; Status DC Protamine Sulfate 50 mg STK-MED ONCE IV ; Start 02/05/17 at 11:09; Stop at 11:10; Status DC Protamine Sulfate 50 mg STK-MED ONCE IV ; Start 02/05/17 at 11:09; Stop at 11:10; Status DC Protamine Sulfate 50 mg STK-MED ONCE IV ; Start 02/05/17 at 11:09; Stop at 11:10; Status DC Isoflurane (Isoflurane) 90 ml STK-MED ONCE IH ; Start 02/05/17 at 11:34; Stop at 11:35; Status DC Heparin Sodium (Porcine) 10,000 unit STK-MED ONCE .ROUTE ; Start 02/05/17 at 12: 59; Stop 02/05/17 at 13:00; Status DC Lidocaine HCl (Xylocaine-Mpf 1% Vial) 5 ml STK-MED ONCE .ROUTE ; Start 02/05/17 at 12:59; Stop 02/05/17 at 13:00; Status DC Aminocaproic Acid (Amicar) 5,000 mg STK-MED ONCE IV ; Start 02/05/17 at 12:59; Stop 02/05/17 at 13:00; Status DC Magnesium Sulfate 5 gm STK-MED ONCE .ROUTE ; Start 02/05/17 at 12:59; Stop 02/05 at 13:00; Status DC Calcium Chloride 1000 mg 1,000 mg STK-MED ONCE IV ; Start 02/05/17 at 12:59; Stop 02/05/17 at 13:00; Status DC Albumin Human (Albuminar) 200 ml @ As Directed STK-MED ONCE IV ; Start at 12:59; Stop 02/05/17 at 13:00; Status DC Heparin Sodium (Porcine) [id number] unit 30,000 unit STK-MED ONCE .ROUTE ; Start at 12:59; Stop 02/05/17 at 13:00; Status DC Lactated Ringer's 1,000 ml @ 30 mls/hr Q24H IV Last administered on 02/06/17 12:37; Start 02/05/17 at 13:15; Stop 02/07/17 at 17:31; Status DC Albumin Human 250 ml @ 60 mls/hr PRN Q4HRS PRN IV SEE I/O RECORD Last administered on 02/05/17 17:20; Start 02/05/17 at 13:15; Stop 02/06/17 at 16:09 ; Status DC Vancomycin HCl 1.5 gm/Sodium Chloride 500 ml @ 250 mls/hr Q12H IV ; Start 02/05 at 13:30; Stop 02/06/17 at 15:29; Status UNV Insulin Human Regular/Sodium Chloride (Novolin R Vial/ Iv Normal Saline 150ml) 151.5 ml @ 0 mls/hr CONT PRN PRN IV SEE I/O RECORD; Start 02/05/17 at 13:15; Stop 02/07/17 at 17:31; Status DC Dextrose 25 gm 25 gm PRN Q15MIN PRN IV LOW BLOOD SUGAR; Start 02/05/17 at 13:15 Nitroglycerin/ Dextrose 250 ml @ 0 mls/hr CONT PRN PRN IV SEE I/O RECORD; Start 02/05/17 at 13:15; Stop 02/07/17 at 17:31; Status DC Amiodarone HCl 900 mg/Dextrose 518 ml @ 33.33 mls/ hr CONT PRN PRN IV RUNS OF VT; Start 02/05/17 at 13:15; Stop 02/07/17 at 17:31; Status DC Amiodarone HCl 150 mg/Dextrose 103 ml @ 200 mls/hr 1X PRN PRN IV VT; Start at 13:15; Stop 02/07/17 at 17:31; Status DC Magnesium Sulfate/ Dextrose (Magnesium Sulfate PREMIX 1GM) 100 ml @ 100 mls/hr PRN DAILY PRN IV FOR MAG < 2.2; Start 02/05/17 at 13:15 Famotidine (Pepcid) 20 mg Q48H IVP Last administered on 02/05/17 20:37; Start 02/05/17 at 21:00; Stop 02/06/17 at 15:11; Status DC Ondansetron HCl (Zofran) 4 mg PRN Q4HRS PRN IV NAUSEA/VOMITING Last administered on 02/05/17 20:02; Start 02/05/17 at 13:15 Morphine Sulfate 2 mg PRN Q1HR PRN IV PAIN Last administered on 02/07/17 01:32 ; Start 02/05/17 at 13:15; Stop 02/07/17 at 08:19; Status DC Acetaminophen (Tylenol) 650 mg PRN Q4HRS PRN PO MILD PAIN / TEMP; Start at 13:15 Acetaminophen (Tylenol) 650 mg PRN Q4HRS PRN TX MILD PAIN / TEMP; Start at 13:15 Meperidine HCl 12.5 mg 12.5 mg PRN Q15MIN PRN IV SHIVERING; Start 02/05/17 at 13:15; Stop 02/06/17 at 10:21; Status DC Propofol (Diprivan) 100 ml @ 0 mls/hr CONT PRN PRN IV POSTOP SEDATION UNTIL EXTUBATE Last administered on 02/05/17 17:23; Start 02/05/17 at 13:15; Stop at 22:13; Status DC Senna/Docusate Sodium (Senna Plus) 1 tab BID PO Last administered on 02/09/17 12:50; Start 02/05/17 at 21:00 Bisacodyl (Dulcolax Supp) 10 mg PRN DAILY PRN TX NO BOWEL MOVEMENT; Start 02/05 at 13:15; Stop 02/08/17 at 13:11; Status DC Chlorhexidine Gluconate (Peridex) 15 ml BID MM Last administered on 02/05/17 20:37; Start 02/05/17 at 21:00; Stop 02/05/17 at 22:13; Status DC Aspirin (Ecotrin) 325 mg [id number] PO Last administered on 02/09/17 12:52; Start 02/06/17 at 08:00 Aspirin (Aspirin) 300 mg PRN DAILY PRN TX IF UNABLE TO TAKE PO; Start 02/05/17 at 13:15; Stop 02/07/17 at 17:31; Status DC Albuterol Sulfate (Ventolin Neb Soln) 2.5 mg PRN Q4HRS PRN NEB SHORTNESS OF BREATH Last administered on 02/06/17 00:15; Start 02/05/17 at 13:15 Metoprolol Tartrate 25 mg 25 mg BID PO ; Start 02/06/17 at 09:00; Stop 02/06/17 at 17:16; Status DC Clevidipine (Cleviprex) 100 ml @ 0 mls/hr CONT PRN IV PER PROTOCOL Last administered on 02/05/17 17:25; Start 02/05/17 at 13:15; Stop 02/07/17 at 17:31 ; Status DC Oxycodone/ Acetaminophen (Percocet 5/325) 1 tab PRN Q4HRS PRN PO MILD PAIN Last administered on 02/08/17 05:53; Start 02/05/17 at 13:15 Oxycodone/ Acetaminophen (Percocet 5/325) 2 tab PRN Q4HRS PRN PO MODERATE PAIN , SEVERE PAIN Last administered on 02/09/17 12:52; Start 02/05/17 at 13:15 Vecuronium [place] 10 mg 10 mg STK-MED ONCE IV ; Start 02/05/17 at 13:32; Stop 02/05/17 at 13:33; Status DC Vancomycin HCl/ Sodium Chloride (Iv Sodium Chloride 0.9% 100ml) 100 ml @ 100 mls/hr 1X ONCE IV Last administered on 02/06/17 15:00; Start 02/06/17 at 16: 00; Stop 02/06/17 at 16:59; Status DC Dextrose 25 gm 1X ONCE IV ; Start 02/06/17 at 07:30; Stop 02/06/17 at 07:31; Status DC Calcium Chloride 2,000 mg 1X ONCE IV ; Start 02/06/17 at 07:30; Stop 02/06/17 at 07:31; Status DC Insulin Human Regular (Novolin R Vial) 10 unit 1X ONCE IV ; Start 02/06/17 at 07:30; Stop 02/06/17 at 07:31; Status DC Vecuronium [place] 10 mg 10 mg STK-MED ONCE IV ; Start 02/05/17 at 13:30; Stop 02/06/17 at 07:51; Status DC Sodium Chloride 1,000 ml @ 1,000 mls/hr Q1H PRN IV hypotension; Start 02/06/17 at 08:26; Stop 02/06/17 at 14:25; Status DC Albumin Human (Albuminar) 200 ml @ 200 mls/hr 1X PRN PRN IV Hypotension Last administered on 02/06/17 09:30; Start 02/06/17 at 08:30; Stop 02/06/17 at 14:29 ; Status DC Acetaminophen (Tylenol) 500 mg 1X PRN PRN PO MILD PAIN / TEMP; Start 02/06/17 at 08:30; Stop 02/07/17 at 08:29; Status DC Diphenhydramine HCl (Benadryl) 25 mg 1X PRN PRN IV ITCHING; Start 02/06/17 at 08:30; Stop 02/07/17 at 08:29; Status DC Diphenhydramine HCl (Benadryl) 25 mg 1X PRN PRN IV ITCHING; Start 02/06/17 at 08:30; Stop 02/07/17 at 08:29; Status DC Info (PHARMACY MONITORING -- do not chart) 1 each PRN DAILY PRN MC SEE COMMENTS ; Start 02/06/17 at 08:30; Stop 02/06/17 at 15:09; Status DC Clonazepam (Klonopin) 0.5 mg PRN Q6HRS PRN PO ANXIETY / AGITATION; Start at 10:15 Famotidine 20 mg 20 mg Q48H PO Last administered on 02/07/17 20:55; Start at 21:00 Albumin Human (Plasmanate) 250 ml @ 60 mls/hr PRN Q4HRS PRN IV SEE I/O RECORD ; Start 02/06/17 at 16:09 Alprazolam (Xanax) 0.5 mg PRN Q8HRS PRN PO ANXIETY / AGITATION Last administered on 02/09/17 07:49; Start 02/06/17 at 22:15 Docusate Sodium (Colace) 100 mg DAILY PO Last administered on 02/09/17 12:52; Start 02/07/17 at 09:00 Morphine Sulfate 4 mg PRN Q2HR PRN IV PAIN; Start 02/07/17 at 13:15 Info (PHARMACY MONITORING -- do not chart) 1 each PRN DAILY PRN MC SEE COMMENTS ; Start 02/07/17 at 11:30; Stop 02/07/17 at 11:30; Status DC Ketorolac Tromethamine (Toradol) 15 mg 1X ONCE IV Last administered on 12:00; Start 02/07/17 at 12:00; Stop 02/07/17 at 12:01; Status DC Metoprolol Tartrate 12.5 mg 12.5 mg BID PO Last administered on 02/09/17 12:51 ; Start 02/07/17 at 21:00 Magnesium Sulfate/ Dextrose (Magnesium Sulfate PREMIX 2GM) 50 ml @ 25 mls/hr 1X ONCE IV Last administered on 02/07/17t 18:30; Start 02/07/17 at 18:30; Stop 02/07/17 at 20:29; Status DC Darbepoetin Percy (Aranesp) 100 mcg WEEKLYHS SQ ; Start 02/09/17 at 21:00 Bisacodyl 10 mg 10 mg PRN DAILY PRN TX NO BOWEL MOVEMENT; Start 02/08/17 at 13: 11 Sodium Chloride 1,000 ml @ 1,000 mls/hr Q1H PRN IV hypotension; Start 02/09/17 at 07:12; Stop 02/09/17 at 13:11; Status DC Albumin Human (Albuminar) 200 ml @ 200 mls/hr 1X PRN PRN IV Hypotension; Start 02/09/17 at 07:15; Stop 02/09/17 at 13:14; Status DC Acetaminophen (Tylenol) 500 mg 1X PRN PRN PO MILD PAIN / TEMP; Start 02/09/17 at 07:15; Stop 02/10/17 at 07:14 Diphenhydramine HCl (Benadryl) 25 mg 1X PRN PRN IV ITCHING; Start 02/09/17 at 07:15; Stop 02/10/17 at 07:14 Diphenhydramine HCl (Benadryl) 25 mg 1X PRN PRN IV ITCHING; Start 02/09/17 at 07:15; Stop 02/10/17 at 07:14 Info (PHARMACY MONITORING -- do not chart) 1 each PRN DAILY PRN MC SEE COMMENTS ; Start 02/09/17 at 07:15; Status UNV Info (PHARMACY MONITORING -- do not chart) 1 each PRN DAILY PRN MC SEE COMMENTS ; Start 02/09/17 at 07:15; Status UNV Active Scripts Active Clopidogrel (Clopidogrel Bisulfate) 75 Mg Tablet 1 Tab PO DAILY Isosorbide Mononitrate Er (Isosorbide Mononitrate) 30 Mg Tab.er.24h 30 Mg PO DAILY Flomax (Tamsulosin Hcl) 0.4 Mg Cap.er.24h 0.4 Mg PO QHS Reported Hydrocodone-Apap 5-325 (Hydrocodone Bit/Acetaminophen) 1 Each Tablet 1 Tab PO PRN Q6HRS PRN Furosemide 80 Mg Tablet 1 Tab PO BID Nephro-Chilo Tablet (Folic Acid/Vitamin B Comp W-C) 0.8 Mg Tablet 1 Tab PO DAILY Paroxetine Hcl 20 Mg Tablet 40 Mg PO DAILY Tums (Calcium Carbonate) 200 Mg Tab.chew 800 Mg PO TIDAC Omeprazole Magnesium 20 Mg Capsule.dr 20 Mg PO DAILY Clonidine Hcl 0.3 Mg Tablet 1 Tab PO DAILY Hydralazine Hcl 100 Mg Tablet 100 Mg PO TID LAST DOSE: 02/24/16 AFTERNOON NEXT DOSE: 02/24/16 BEDTIME Amlodipine Besylate 10 Mg Tablet 10 Mg PO BID LAST DOSE: 02/24/16 AM NEXT DOSE: 02/25/16 AM Xanax (Alprazolam) 0.5 Mg Tablet 0.5 Mg PO Q6HRS PRN LAST DOSE: 02/23/16 BEDTIME NEXT DOSE: 02/24/16 BEDTIME Losartan Potassium 100 Mg Tablet 100 Mg PO HS LAST DOSE: 02/23/16 BEDTIME NEXT DOSE: 02/24/16 BEDTIME Metoprolol Tartrate 100 Mg Tablet 100 Mg PO BID LAST DOSE: 02/24/16 AM NEXT DOSE: 02/24/16 BEDTIME Lillian Chewable (Aspirin) 81 Mg Tab.chew 324 Mg PO DAILY LAST DOSE: 02/24/16 AM NEXT DOSE: 02/25/16 AM Vitals/I & O Vital Sign - Last 24 Hours 02/08/17 02/08/17 02/08/17 02/08/17 16:00 17:45 19:57 20:00 Temp 98.6 98.3 98.6 98.3 Pulse 70 79 Resp 14 14 B/P 123/50 121/52 Pulse Ox 95 95 O2 Delivery Nasal Cannula Room Air Room Air Room Air O2 Flow Rate 1.5 02/08/17 02/09/17 02/09/17 02/09/17 21:33 00:00 04:00 06:05 Temp 98.4 98.7 98.4 98.7 Pulse 86 69 72 Resp 16 18 B/P 121/51 132/60 120/48 Pulse Ox 96 94 O2 Delivery Room Air Room Air Room Air 02/09/17 02/09/17 02/09/17 02/09/17 07:05 08:00 12:51 12:52 Pulse 80 Resp 20 22 B/P 125/64 Pulse Ox 96 O2 Delivery Room Air Nasal Cannula Room Air O2 Flow Rate 1.5 Intake and Output 02/08/17 02/08/17 02/09/17 15:00 23:00 07:00 Intake Total 125 ml 75 ml 500 ml Output Total 0 ml Balance 125 ml 75 ml 500 ml Nutrition Consultation Dietary Evaluation: Recommendations by RD: Increase Calorie Intake Comments: Continue to encourage diet compliance to the cardiac/renal diets Intake 25% of meals, does not meet nutrition needs. Rec. 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
[2017-02-09] MEDS: TAMSULOSIN 0.4 MG CAP.ER.24H. PO SCH (20:54)
[2017-02-09] MEDS: FAMOTIDINE 20 MG TABLET. PO SCH (20:54)
[2017-02-09] MEDS ORDERED: DARBEPOETIN ALFA 100 MCG/0.5 ML DISP.SYRIN. SQ SCH (21:00)
[2017-02-10 02:54] VITALS: BP 126/59
[2017-02-10 05:37] LABS: ALBUMIN 2.9 g/dL (3.4-5.0); CALCIUM 8.6 mg/dL (8.5-10.1); CREATININE 6.1 mg/dL (0.7-1.3); GFR 9.5; PHOSPHORUS 2.8 mg/dL (2.6-4.7); POTASSIUM 3.9 mmol/L (3.5-5.1)
[2017-02-10 07:00] VITALS: BP 128/62
[2017-02-10] MEDS: ASPIRIN ENTERIC COATED 325 MG TABLET.DR. PO SCH (08:01)
[2017-02-10] MEDS: DOCUSATE SODIUM 100 MG CAPSULE PO SCH (08:02)
[2017-02-10] MEDS: FOLIC/VIT B COMP W-C (RENAL) TABLET. PO SCH (08:02)
[2017-02-10] MEDS: PAROXETINE 20 MG TABLET. PO SCH (08:02)
[2017-02-10] MEDS: PANTOPRAZOLE 40 MG TABLET. PO SCH (08:02)
[2017-02-10] MEDS: SENNOSIDES/DOCUSATE 8.6/50MG TABLET. PO SCH (08:02)
[2017-02-10] MEDS: METOPROLOL TART IMMED RELEASE 25 MG TABLET PO SCH (08:03)
[2017-02-10] MEDS: CALCIUM CARBONATE 500 MG TAB.CHEW PO SCH ×2 (08:05→11:30)
[2017-02-10] MEDS: OXYCODONE/APAP 5/325 TABLET. PO PRN (08:12)
[2017-02-10 11:00] VITALS: BP 122/58
[2017-02-10] MEDS ORDERED: METO25TA4 PO (11:01)
[2017-02-10] MEDS ORDERED: ASPI325T4 PO (11:02)
--- NOTE | 2017-02-10 11:05 | PDOC3 ---
Discharge Summary Visit Information Date of Admission: Jan 29, 2017 Date of Discharge: Feb 10, 2017 Admitting Diagnosis Comment: 1. STEMI: cath on 01/[address] Kiran: multivessel dz. CABG on 02/[address] Holbrook. 2. KnownCAD 3. ESRD: on HD, 4. Anemia: blood loss on top of CKD 5. DM: currently welll controlled. 6. Anxiety: 7. AMS : resolved 8. Sore throat: resolved 9 Pancreatitis: recurrent panc w/o EtOH hx, and s/p CCY. resolved 10. Prophylaxis: PPI Final Diagnosis Problems Medical Problems: (1) CAD (coronary artery disease) Status: Acute (2) Flank pain Status: Acute (3) Pancreatitis Status: Acute (4) Unstable angina pectoris Status: Acute Brief Hospital Course Allergies Allergies Coded Allergies Type Severity Reaction Last Updated Verified No Known Drug Allergies 02/05/17 No Vital Signs Vital Signs Date Time Temp Pulse Resp B/P Pulse Ox O2 Delivery O2 Flow Rate FiO2 02/10/17 09:12 18 97 Room Air 02/10/17 08:03 74 128/62 02/10/17 07:00 97.8 97.8 02/09/17 08:00 1.5 Lab Results Laboratory Tests Test 02/08/17 12:14 02/09/17 04:30 02/10/17 04:45 Glucose (Fingerstick) 121mg/dL (70-99) Hemoglobin 8.2g/dL (13.0-17.5) Hematocrit 25.3% (39.0-53.0) Mean Corpuscular Hemoglobin Concent 33g/dL (31-37) Sodium Level 142mmol/L (136-145) 140mmol/L (136-145) Potassium Level 3.7mmol/L (3.5-5.1) 3.9mmol/L (3.5-5.1) Chloride Level 100mmol/L (98-107) 100mmol/L (98-107) Carbon Dioxide Level 26mmol/L (21-32) 30mmol/L (21-32) Anion Gap 16 (6-14) 10 (6-14) Blood Urea Nitrogen 42mg/dL (8-26) 29mg/dL (8-26) Creatinine 8.0mg/dL (0.7-1.3) 6.1mg/dL (0.7-1.3) Estimated GFR (Cockcroft-Gault) 6.9 9.5 Glucose Level 102mg/dL (70-99) 93mg/dL (70-99) Calcium Level 8.5mg/dL (8.5-10.1) 8.6mg/dL (8.5-10.1) Phosphorus Level 3.4mg/dL (2.6-4.7) 2.8mg/dL (2.6-4.7) Magnesium Level 2.7mg/dL (1.8-2.4) Albumin 2.8g/dL (3.4-5.0) 2.9g/dL (3.4-5.0) Laboratory Tests Test 02/10/17 04:45 Sodium Level 140mmol/L (136-145) Potassium Level 3.9mmol/L (3.5-5.1) Chloride Level 100mmol/L (98-107) Carbon Dioxide Level 30mmol/L (21-32) Anion Gap 10 (6-14) Blood Urea Nitrogen 29mg/dL (8-26) Creatinine 6.1mg/dL (0.7-1.3) Estimated GFR (Cockcroft-Gault) 9.5 Glucose Level 93mg/dL (70-99) Calcium Level 8.6mg/dL (8.5-10.1) Phosphorus Level 2.8mg/dL (2.6-4.7) Albumin 2.9g/dL (3.4-5.0) Brief Hospital Course Mr. Long is a 61 old male known to us, ESRD on HD TTHS sec to PKD, chest pains, this time found to have STEMI, Cath done, then eventually needed CABG x 5. DOne by Cleared to dc. 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 Condition at Discharge: Improved, Stable Follow Up: Weeks ([facility] as instructed) Disposition/Orders: D/C to Home Scheduled Amlodipine Besylate (Amlodipine Besylate) 10 MG PO BID (Reported) Aspirin (Lillian Chewable) 324 MG PO DAILY (Reported) Calcium Carbonate (Tums) 800 MG PO TIDAC (Reported) Clonidine Hcl (Clonidine Hcl) 1 TAB PO DAILY (Reported) Clopidogrel Bisulfate (Clopidogrel) 1 TAB PO DAILY Folic Acid/Vitamin B Comp W-C (Nephro-Chilo Tablet) 1 TAB PO DAILY (Reported) Furosemide (Furosemide) 1 TAB PO BID (Reported) Hydralazine Hcl (Hydralazine Hcl) 100 MG PO TID (Reported) Isosorbide Mononitrate (Isosorbide Mononitrate Er) 30 MG PO DAILY Losartan Potassium (Losartan Potassium) 100 MG PO HS (Reported) Metoprolol Tartrate (Metoprolol Tartrate) 100 MG PO BID (Reported) Omeprazole Magnesium (Omeprazole Magnesium) 20 MG PO DAILY (Reported) Paroxetine Hcl (Paroxetine Hcl) 40 MG PO DAILY (Reported) Tamsulosin Hcl (Flomax) 0.4 MG PO QHS Scheduled PRN Alprazolam (Xanax) 0.5 MG PO Q6HRS PRN PRN ANXIETY / AGITATION (Reported) Hydrocodone Bit/Acetaminophen (Hydrocodone-Apap 5-325 ) 1 TAB PO PRN Q6HRS PRN PRN PAIN (Reported) ARSALAN ESCAMILLA MD Feb 10, 2017 11:05
--- NOTE | 2017-02-10 20:36 | PDOC ---
Provider Note Provider Note RENAL F/U : ANILA Doing better VSS Afebrile. Alert Lungs : Non labored CVS : RRR No edema Labs stable. CPM HD per schedule if here. KIM HIGH MD Feb 10, 2017 20:35
== END 2017-02-10 14:15 | disposition home or self-care (01) | DRG 233 ==
LOC: ER 22:01 → 5 SOUTH 01-29 02:10 → 1 WEST ICU 01-29 18:50 → 2 NORTH 02-01 16:26 → 1 WEST ICU 02-05 10:08 → CVICU 02-07 07:42
PROVIDERS: ADMIT Internal Medicine; ATTEND Internal Medicine
PROC: 4A023N7 Measurement of Cardiac Sampling and Pressure, Left Heart, Percutaneous Approach (ICD-10-PCS; principal; 2017-01-29)
PROC: B2111ZZ Fluoroscopy of Multiple Coronary Arteries using Low Osmolar Contrast (ICD-10-PCS; 2017-01-29)
PROC: B2151ZZ Fluoroscopy of Left Heart using Low Osmolar Contrast (ICD-10-PCS; 2017-01-29)
PROC: 5A1D60Z (ICD-10-PCS; 2017-02-04)
PROC: 02100Z9 Bypass Coronary Artery, One Artery from Left Internal Mammary, Open Approach (ICD-10-PCS; 2017-02-05)
PROC: 021309W Bypass Coronary Artery, Four or More Arteries from Aorta with Autologous Venous Tissue, Open Approach (ICD-10-PCS; 2017-02-05)
PROC: 06BQ4ZZ Excision of Left Saphenous Vein, Percutaneous Endoscopic Approach (ICD-10-PCS; 2017-02-05)
PROC: 30233L1 Transfusion of Nonautologous Fresh Plasma into Peripheral Vein, Percutaneous Approach (ICD-10-PCS; 2017-02-05)
PROC: 30233N1 Transfusion of Nonautologous Red Blood Cells into Peripheral Vein, Percutaneous Approach (ICD-10-PCS; 2017-02-05)
PROC: 30233R1 Transfusion of Nonautologous Platelets into Peripheral Vein, Percutaneous Approach (ICD-10-PCS; 2017-02-05)
PROC: 30233K1 Transfusion of Nonautologous Frozen Plasma into Peripheral Vein, Percutaneous Approach (ICD-10-PCS; 2017-02-05)
PROC: 5A1935Z Respiratory Ventilation, Less than 24 Consecutive Hours (ICD-10-PCS; 2017-02-05)
PROC: 0BH17EZ Insertion of Endotracheal Airway into Trachea, Via Natural or Artificial Opening (ICD-10-PCS; 2017-02-05)
PROC: 5A1221Z Performance of Cardiac Output, Continuous (ICD-10-PCS; 2017-02-05)
DX: I21.19 ST elevation (STEMI) myocardial infarction involving other coronary artery of inferior wall (principal); K85.90 Acute pancreatitis without necrosis or infection, unspecified; N18.6 End stage renal disease; E46 Unspecified protein-calorie malnutrition; I12.0 Hypertensive chronic kidney disease with stage 5 chronic kidney disease or end stage renal disease; Q61.3 Polycystic kidney, unspecified; K86.1 Other chronic pancreatitis; I25.110 Atherosclerotic heart disease of native coronary artery with unstable angina pectoris; E11.649 Type 2 diabetes mellitus with hypoglycemia without coma; E21.3 Hyperparathyroidism, unspecified; E87.5 Hyperkalemia; F32.9 Major depressive disorder, single episode, unspecified; F41.9 Anxiety disorder, unspecified; G47.33 Obstructive sleep apnea (adult) (pediatric); D63.1 Anemia in chronic kidney disease; K21.9 Gastro-esophageal reflux disease without esophagitis; K27.9 Peptic ulcer, site unspecified, unspecified as acute or chronic, without hemorrhage or perforation; M19.90 Unspecified osteoarthritis, unspecified site; N40.0 Benign prostatic hyperplasia without lower urinary tract symptoms; Z96.1 Presence of intraocular lens; K52.832 Lymphocytic colitis; J02.9 Acute pharyngitis, unspecified; K59.00 Constipation, unspecified; D50.0 Iron deficiency anemia secondary to blood loss (chronic); E11.22 Type 2 diabetes mellitus with diabetic chronic kidney disease; I48.91 Unspecified atrial fibrillation; E11.51 Type 2 diabetes mellitus with diabetic peripheral angiopathy without gangrene; K29.80 Duodenitis without bleeding; Z99.2 Dependence on renal dialysis; Z82.3 Family history of stroke; Z82.49 Family history of ischemic heart disease and other diseases of the circulatory system; Z83.3 Family history of diabetes mellitus; Z87.11 Personal history of peptic ulcer disease; Z90.49 Acquired absence of other specified parts of digestive tract; Z95.1 Presence of aortocoronary bypass graft; Z95.5 Presence of coronary angioplasty implant and graft; Z68.27 Body mass index [BMI] 27.0-27.9, adult; Z87.01 Personal history of pneumonia (recurrent)
CPT/HCPCS: 36415; 36600; 71010; 71250; 74000; 74176; 80048; 80053; 80069; 82150; 82550; 82803; 82805; 82947; 83690; 83735; 84132; 84484; 85014; 85018; 85027; 85347; 85384; 85520; 85610; 85730; 86850; 86900; 86901; 86920; 87070; 87641; 87880; 93005; 93306; 93458; 93880; 93925; 94002; 94250; 94640; 96361; 96374; 96375; C1757; C1769; C1892; J0881; J1170; J1200; J1644; J1815; J1885; J2250; J2270; J2405; J2440; J2704; J3010; J3370; J3475; J3490; J7030; J7040; J7042; J7060; J7120; P9016; P9041; P9046; S0028; 97116; 97530; 99285-25; C9248

== ENCOUNTER 2017-05-06 02:43 | Inpatient (IN) | payer MEDICARE ==
[2017-05-06] VITALS (10 sets, daily range): BP systolic 130–172; BP diastolic 68–89
[~2017-05-06] VITALS: Ht 167.6 cm; Wt 73.7 kg
[~2017-05-06 02:43] MED LIST changes: +ASPI-612; +ASPI325T8 PO; -CHOL20003 PO; +CHOL20009 PO; +CLOP75TA57; +FURO80TA3; +HYDR-2758 PO; +LOSA100T6; +METO100T11; +METO25TA4 PO; +OMEP-203 PO; -OMEP20CA4 PO; +PANT40TA5; -PARO10TA24 PO; +PARO10TA57 PO; +PARO12.517 PO; -[UNRECOGNIZED DRUG - CODE] PO
[2017-05-06] MEDS ORDERED: HYDROcodone/APAP 5/325MG 1 TAB TABLET PO PRN (03:15)
[2017-05-06] MEDS ORDERED: hydrALAZINE 20 MG/ML VIAL. IVP PRN (03:45)
[2017-05-06] MEDS ORDERED: ONDANSETRON PF 4 MG/2 ML VIAL. IV PRN (03:45)
[2017-05-06] MEDS ORDERED: IV NORMAL SALINE 1000ML BAG 1,000 ML IV PRN (03:57)
[2017-05-06] MEDS ORDERED: LORazepam 1 MG TABLET PO ONE (04:00)
[2017-05-06] MEDS ORDERED: DIALYSIS PATIENT. MC PRN (04:00)
[2017-05-06 06:05] LABS: BASO # 0.2 x10^3/uL (0.0-0.2); BASO % 1 % (0-3); EOS % 3 % (0-3); HEMATOCRIT 36.1 % (39.0-53.0); HEMOGLOBIN 12.5 g/dL (13.0-17.5); LYMPH # 0.9 x10^3/uL (1.0-4.8); LYMPH % 9 % (24-48); MEAN CORPUSCULAR HEMOGLOBIN 31 pg (25-35); MEAN CORPUSCULAR HGB CONC 35 g/dL (31-37); MEAN CORPUSCULAR VOLUME 88 fL (79-100); MONO % 6 % (0-9); NEUT % 81 % (31-73); PLATELET COUNT 229 x10^3/uL (140-400); RED CELL DISTRIBUTION WIDTH 15.3 % (11.5-14.5); WHITE BLOOD COUNT 10.6 x10^3/uL (4.0-11.0)
[2017-05-06] MEDS: CALCIUM CARBONATE 500 MG TAB.CHEW PO SCH ×3 (07:30→17:29)
[2017-05-06] MEDS: FOLIC/VIT B COMP W-C (RENAL) TABLET. PO SCH (08:41)
[2017-05-06] MEDS: PARoxetine 20 MG TABLET PO SCH (08:41)
[2017-05-06] MEDS: ALPRAZolam 0.5 MG TABLET PO PRN ×3 (08:41→22:00)
[2017-05-06] MEDS: PANTOPRAZOLE 40 MG TABLET.DR. PO SCH (08:41)
[2017-05-06] MEDS: CLOPIDOGREL BISULFATE 75 MG TABLET PO SCH (08:41)
[2017-05-06] MEDS: LOSARTAN POTASSIUM 50 MG TABLET. PO SCH (08:42)
--- NOTE | 2017-05-06 08:51 | PDOC1 ---
History and Physical Past Medical History Cardiovascular: CAD, HTN, NC Pulmonary: Other GI: Constipation, GERD, Other Heme/Onc: Anemia NOS Psych: Depression Renal/: Chronic renal failure, Other Endocrine: Diabetes, Hyperparathyroidism Past Surgical History Past Surgical History: Appendectomy, Cholecystectomy, Other Family History Family History: Cancer, Diabetes, Kidney Disease, Stroke Social History ALCOHOL: none Drugs: None Current Medications Current Medications Current Medications Medications (Trade) Dose Ordered Sig/Cirilo Start Time Stop Time Status Last Admin Dose Admin Acetaminophen/ Hydrocodone Bitart (Lortab 5/325) 1 tab PRN Q6HRS PRN 05/06/17 03:15 Alprazolam (Xanax) 0.5 mg PRN Q6HRS PRN 05/06/17 03:15 05/06/17 08:41 0.5 MG Calcium Carbonate/ Glycine (Tums) 500 mg TIDAC 05/06/17 07:30 05/06/17 07:30 500 MG Clopidogrel Bisulfate (Plavix) 75 mg DAILY 05/06/17 09:00 05/06/17 08:41 75 MG Hydralazine HCl (Apresoline) 10 mg PRN Q4HRS PRN 05/06/17 03:45 Info (PHARMACY MONITORING -- do not chart) 1 each PRN DAILY PRN 05/06/17 04:00 Lorazepam (Ativan) 1 mg 1X ONCE 05/06/17 04:00 05/06/17 04:01 DC 05/06/17 04:01 1 MG Losartan Potassium (Cozaar) 100 mg DAILY 05/06/17 09:00 05/06/17 08:42 100 MG Metoprolol Tartrate (Lopressor) 100 mg BID 05/06/17 09:00 Non-Formulary Medication 20 mg DAILY 05/06/17 09:00 UNV Ondansetron HCl (Zofran) 4 mg PRN Q6HRS PRN 05/06/17 03:45 Pantoprazole Sodium (Protonix) 40 mg DAILYAC 05/06/17 07:30 05/06/17 08:41 40 MG Paroxetine HCl (Paxil) 40 mg DAILY 05/06/17 09:00 05/06/17 08:41 40 MG Sodium Chloride 1,000 ml @ 1,000 mls/hr Q1H PRN 05/06/17 03:57 05/06/17 09:56 Tamsulosin HCl (Flomax) 0.4 mg QHS 05/06/17 21:00 Vitamin B Complex/ Vitamin C (Frances-Chilo) 1 tab DAILY 05/06/17 09:00 05/06/17 08:41 1 TAB Allergies Allergies Allergies Coded Allergies Type Severity Reaction Last Updated Verified aspirin Allergy Intermediate 04/16/17 Yes ROS Review of System CONSTITUTIONAL: No fever or chills EYES: No recent changes SKIN: No rash or itching CARDIOVASCULAR: No chest pain, syncope, palpitations, or edema RESPIRATORY: SOB GASTROINTESTINAL: No nausea, vomiting or abdominal pain NEUROLOGICAL: No headaches or weakness ENDOCRINE: No cold or heat intolerance GENITOURINARY: No urgency or frequency of urination MUSCULOSKELETAL: No back pain or joint pain LYMPHATICS: No enlarged lymph nodes PSYCHIATRIC: No anxiety or depression Physical Exam Physical Exam GEN.: No apparent distress. Alert and oriented. HEENT: Head is normocephalic, atraumatic NECK: Supple. no JVD LUNGS: Clear to auscultation. normal airflow HEART: RRR, S1, S2 present. Peripheral pulses intact ABDOMEN: Soft, nontender. Positive bowel sounds. EXTREMITIES: Without any cyanosis. NEUROLOGIC: Normal speech, normal tone PSYCHIATRIC: Normal affect, normal mood. SKIN: healing scar on chest, on visible ulcerations Vitals Vitals Vital Signs Date Time Temp Pulse Resp B/P (MAP) Pulse Ox O2 Delivery O2 Flow Rate FiO2 05/06/17 08:43 70 172/88 05/06/17 06:00 18 99 Nasal Cannula 3.0 05/06/17 03:00 98.0 98.0 Labs Labs Laboratory Tests Test 05/06/17 06:00 White Blood Count 10.6 x10^3/uL (4.0-11.0) Red Blood Count 4.10 x10^6/uL (4.30-5.70) Hemoglobin 12.5 g/dL (13.0-17.5) Hematocrit 36.1 % (39.0-53.0) Mean Corpuscular Volume 88 fL (79-100) Mean Corpuscular Hemoglobin 31 pg (25-35) Mean Corpuscular Hemoglobin Concent 35 g/dL (31-37) Red Cell Distribution Width 15.3 % (11.5-14.5) Platelet Count 229 x10^3/uL (140-400) Neutrophils (%) (Auto) 81 % (31-73) Lymphocytes (%) (Auto) 9 % (24-48) Monocytes (%) (Auto) 6 % (0-9) Eosinophils (%) (Auto) 3 % (0-3) Basophils (%) (Auto) 1 % (0-3) Neutrophils # (Auto) 8.6 x10^3uL (1.8-7.7) Lymphocytes # (Auto) 0.9 x10^3/uL (1.0-4.8) Monocytes # (Auto) 0.7 x10^3/uL (0.0-1.1) Eosinophils # (Auto) 0.3 x10^3/uL (0.0-0.7) Basophils # (Auto) 0.2 x10^3/uL (0.0-0.2) Troponin I Quantitative 0.063 ng/mL (0.000-0.055) Laboratory Tests Test 05/06/17 06:00 White Blood Count 10.6 x10^3/uL (4.0-11.0) Red Blood Count 4.10 x10^6/uL (4.30-5.70) Hemoglobin 12.5 g/dL (13.0-17.5) Hematocrit 36.1 % (39.0-53.0) Mean Corpuscular Volume 88 fL (79-100) Mean Corpuscular Hemoglobin 31 pg (25-35) Mean Corpuscular Hemoglobin Concent 35 g/dL (31-37) Red Cell Distribution Width 15.3 % (11.5-14.5) Platelet Count 229 x10^3/uL (140-400) Neutrophils (%) (Auto) 81 % (31-73) Lymphocytes (%) (Auto) 9 % (24-48) Monocytes (%) (Auto) 6 % (0-9) Eosinophils (%) (Auto) 3 % (0-3) Basophils (%) (Auto) 1 % (0-3) Neutrophils # (Auto) 8.6 x10^3uL (1.8-7.7) Lymphocytes # (Auto) 0.9 x10^3/uL (1.0-4.8) Monocytes # (Auto) 0.7 x10^3/uL (0.0-1.1) Eosinophils # (Auto) 0.3 x10^3/uL (0.0-0.7) Basophils # (Auto) 0.2 x10^3/uL (0.0-0.2) Troponin I Quantitative 0.063 ng/mL (0.000-0.055) VTE Prophylaxis Ordered VTE Prophylaxis Devices: Yes VTE Pharmacological Prophylaxi: Yes SHANNAN CROCKETT MD May 06, 2017 08:51
[2017-05-06] MEDS ORDERED: OMEPRAZOLE MAGNESIUM 20 MG PO SCH (09:00)
--- NOTE | 2017-05-06 09:09 | PDOC2 ---
CONSULT Date of Consult Date of Consult DATE: 05/06/17 TIME: 09:07 Reason for Consult Reason for Consult: ESRD Referring Physician Referring Physician: Dr Jacobsen Identification/Chief Complaint Chief Complaint SOB Problems: Source Source: Chart review, Patient History of Present Illness Reason for Visit: as dictated Past Medical History Cardiovascular: CAD, HTN, ID Pulmonary: Other GI: Constipation, GERD, Other Heme/Onc: Anemia NOS Psych: Depression Renal/: Chronic renal failure, Other Endocrine: Diabetes, Hyperparathyroidism Past Surgical History Past Surgical History: Appendectomy, Cholecystectomy, Other Family History Family History: Cancer, Diabetes, Kidney Disease, Stroke Social History ALCOHOL: none Drugs: None Lives: with Family Domestic Violence: Neg Current Medications Current Medications Current Medications Alprazolam (Xanax) 0.5 mg PRN Q6HRS PRN PO ANXIETY / AGITATION Last administered on 05/06/17 08:41; Start 05/06/17 at 03:15 Calcium Carbonate/ Glycine (Tums) 500 mg TIDAC PO Last administered on 07:30; Start 05/06/17 at 07:30 Vitamin B Complex/ Vitamin C (Frances-Chilo) 1 tab DAILY PO Last administered on 08:41; Start 05/06/17 at 09:00 Hydralazine HCl (Apresoline) 50 mg TID PO Last administered on 05/06/17 08:43 ; Start 05/06/17 at 09:00 Acetaminophen/ Hydrocodone Bitart (Lortab 5/325) 1 tab PRN Q6HRS PRN PO SEVERE PAIN; Start 05/06/17 at 03:15 Metoprolol Tartrate (Lopressor) 100 mg BID PO ; Start 05/06/17 at 09:00 Pantoprazole Sodium (Protonix) 40 mg DAILYAC PO Last administered on 05/06/17 08:41; Start 05/06/17 at 07:30 Paroxetine HCl (Paxil) 40 mg DAILY PO Last administered on 05/06/17 08:41; Start 05/06/17 at 09:00 Tamsulosin HCl (Flomax) 0.4 mg QHS PO ; Start 05/06/17 at 21:00 Losartan Potassium (Cozaar) 100 mg DAILY PO Last administered on 05/06/17 08: 42; Start 05/06/17 at 09:00 Non-Formulary Medication 20 mg DAILY PO ; Start 05/06/17 at 09:00; Status UNV Clopidogrel Bisulfate (Plavix) 75 mg DAILY PO Last administered on 05/06/17 08 :41; Start 05/06/17 at 09:00 Ondansetron HCl (Zofran) 4 mg PRN Q6HRS PRN IV NAUSEA/VOMITING; Start 05/06/17 at 03:45 Lorazepam (Ativan) 1 mg 1X ONCE PO Last administered on 05/06/17 04:01; Start 05/06/17 at 04:00; Stop 05/06/17 at 04:01; Status DC Hydralazine HCl (Apresoline) 10 mg PRN Q4HRS PRN IVP ELEVATED BP, SEE COMMENTS ; Start 05/06/17 at 03:45 Sodium Chloride 1,000 ml @ 1,000 mls/hr Q1H PRN IV hypotension; Start 05/06/17 at 03:57; Stop 05/06/17 at 09:56 Info (PHARMACY MONITORING -- do not chart) 1 each PRN DAILY PRN MC SEE COMMENTS ; Start 05/06/17 at 04:00 Active Scripts Active Flomax (Tamsulosin Hcl) 0.4 Mg Cap.er.24h 0.4 Mg PO QHS Reported Metoprolol Succinate ( Xl ) (Metoprolol Succinate) 100 Mg Tab.er.24h 100 BID Pantoprazole Sodium 40 Mg Tablet.dr 40 BID Plavix (Clopidogrel Bisulfate) 75 Mg Tablet 75 DAILY Losartan Potassium 100 Mg Tablet 100 DAILY Furosemide 80 Mg Tablet 80 BID Hydralazine Hcl 50 Mg Tablet 50 TID Hydrocodone-Apap 5-325 (Hydrocodone Bit/Acetaminophen) 1 Each Tablet 1 Tab PO PRN Q6HRS PRN Nephro-Chilo Tablet (Folic Acid/Vitamin B Comp W-C) 0.8 Mg Tablet 1 Tab PO DAILY Paroxetine Hcl 20 Mg Tablet 40 Mg PO DAILY Tums (Calcium Carbonate) 200 Mg Tab.chew 800 Mg PO TIDAC Omeprazole Magnesium 20 Mg Capsule.dr 20 Mg PO DAILY Xanax (Alprazolam) 0.5 Mg Tablet 0.5 Mg PO Q6HRS PRN LAST DOSE: 02/23/16 BEDTIME NEXT DOSE: 02/24/16 BEDTIME Allergies Allergies: Coded Allergies: aspirin (Verified Allergy, Intermediate, 04/16/17) ROS Review of System GEN: no Fevers no Chills EYES: no new Visual Complaints ENT: no EN Drainage no Hearing deficits CVS: min Orthopnea no CP RESP: + SOB + FERNANDEZ GI: no Nausea no Vomiting : no Dysuria no Urgency HEME: no easy bruising no Palp Ly Nodes NEURO no Focal Weakness no Sz PSYCH: no Suicidal Ideation no Depression SKIN: no Rashes ENDO: no Polyuria or Polydipsia no Hot/Cold Intolerance MU SK: no Arthralgia no Myalgia Physical Exam Physical Exam General Appearance: Awake Alert Oriented x 3 In no Distress Eyes: VIsion Unchanged Conjunctiva Normal EN: No EN Drainage Mucous Memb. moist Neck: no JVD min JVP Supple no Thyromegaly CVS: S1 S2 + Murmur No Gallop No Rub no Edema Resp: no Rales no Rhonchi no Acc. Muscle use GI: BS +ve NO Bruit Non Tender Non Distended : no CVA tenderness; no Suprapubic Tenderness SKIN: no Rashes Breast Exam deferred Mu.Sk: Adequate ROM no Muscle Atrophy Heme: Unable to palpate Obvious LAD no Splenomegaly NEURO: Good Strength and Tone Cranial Nerves II - XII grossly intact Psych: no Depressed no Active hallucination Vital Signs Vital Signs Date Time Temp Pulse Resp B/P (MAP) Pulse Ox O2 Delivery O2 Flow Rate FiO2 05/06/17 08:43 70 172/88 05/06/17 06:00 18 99 Nasal Cannula 3.0 05/06/17 03:00 98.0 98.0 Assessment & Plan ESRD: Pt dialyzed early this am due to resp distress SOB/ Hypoxia - HyperVolemia - better with Uf as done earlier today Pulm edema - If no cardiac etio found - consideration to RA Stenting can be given to see if it helps minimize these episodes CAROL ANN - ? endarterectomy at time of [place] ext [place]. Will defer to Dr Kiran and Dr Galicia et al Anemia: no Epogen for hgb > 12. Transfuse with next HD as needed natali-op ? HTN: Current BP meds reviewed. reval after fluid status is optimized Sev HyperPhosphatemia in the past - follow phos and alter binder regimen as needed NSTEMI - ? Demand Ischemia PVD - pt had Qs regarding same - defer to Dr Kiran and Dr Galicia Discussed Plan of Care and prognosis etc. at length with family. Labs Labs Laboratory Tests Test 05/06/17 06:00 White Blood Count 10.6 x10^3/uL (4.0-11.0) Red Blood Count 4.10 x10^6/uL (4.30-5.70) Hemoglobin 12.5 g/dL (13.0-17.5) Hematocrit 36.1 % (39.0-53.0) Mean Corpuscular Volume 88 fL (79-100) Mean Corpuscular Hemoglobin 31 pg (25-35) Mean Corpuscular Hemoglobin Concent 35 g/dL (31-37) Red Cell Distribution Width 15.3 % (11.5-14.5) Platelet Count 229 x10^3/uL (140-400) Neutrophils (%) (Auto) 81 % (31-73) Lymphocytes (%) (Auto) 9 % (24-48) Monocytes (%) (Auto) 6 % (0-9) Eosinophils (%) (Auto) 3 % (0-3) Basophils (%) (Auto) 1 % (0-3) Neutrophils # (Auto) 8.6 x10^3uL (1.8-7.7) Lymphocytes # (Auto) 0.9 x10^3/uL (1.0-4.8) Monocytes # (Auto) 0.7 x10^3/uL (0.0-1.1) Eosinophils # (Auto) 0.3 x10^3/uL (0.0-0.7) Basophils # (Auto) 0.2 x10^3/uL (0.0-0.2) Troponin I Quantitative 0.063 ng/mL (0.000-0.055) Laboratory Tests Test 05/06/17 06:00 White Blood Count 10.6 x10^3/uL (4.0-11.0) Red Blood Count 4.10 x10^6/uL (4.30-5.70) Hemoglobin 12.5 g/dL (13.0-17.5) Hematocrit 36.1 % (39.0-53.0) Mean Corpuscular Volume 88 fL (79-100) Mean Corpuscular Hemoglobin 31 pg (25-35) Mean Corpuscular Hemoglobin Concent 35 g/dL (31-37) Red Cell Distribution Width 15.3 % (11.5-14.5) Platelet Count 229 x10^3/uL (140-400) Neutrophils (%) (Auto) 81 % (31-73) Lymphocytes (%) (Auto) 9 % (24-48) Monocytes (%) (Auto) 6 % (0-9) Eosinophils (%) (Auto) 3 % (0-3) Basophils (%) (Auto) 1 % (0-3) Neutrophils # (Auto) 8.6 x10^3uL (1.8-7.7) Lymphocytes # (Auto) 0.9 x10^3/uL (1.0-4.8) Monocytes # (Auto) 0.7 x10^3/uL (0.0-1.1) Eosinophils # (Auto) 0.3 x10^3/uL (0.0-0.7) Basophils # (Auto) 0.2 x10^3/uL (0.0-0.2) Troponin I Quantitative 0.063 ng/mL (0.000-0.055) Images Images Both kidneys are served by single renal artery. Both the renal arteries demonstrate diffuse calcified and noncalcified atherosclerotic plaquing. There is evidence of a high-grade stenosis involving the proximal left renal artery, may be up to 90%. There is estimated 50% luminal diameter stenosis of the origin of the right renal artery secondary to atherosclerotic plaquing. TING GARDUNO MD May 06, 2017 09:09
[2017-05-06 09:59] LABS: CALCIUM 7.7 mg/dL (8.5-10.1); GFR 6.9; POTASSIUM 4.3 mmol/L (3.5-5.1)
--- NOTE | 2017-05-06 10:21 | CONS ---
DATE OF CONSULTATION: 05/06/2017 PRIMARY PHYSICIAN: Dr. David Jacobsen. REASON FOR CONSULTATION: dialysis and hypervolemia. HISTORY OF PRESENT ILLNESS: The patient is a 61-year-old gentleman with extensive past medical history. He has had 2 recent family episodes including the demise of his mom as well as his son's wedding, for which he was in [place] this weekend. He thereafter celebrated Father's Day while he claims he has not missed any dialysis. It does appear that he has not shown up regularly for his dialysis on his daily schedules per se. He even tells me he dialyzed once in [place]; however, his son's wedding was in [place]. He tells that these are not verifiable at this time. He, however, vehemently denies missing any dialysis. In this setting, he presented to [facility] with significant hypoxemia, dyspnea on exertion, PND, and orthopnea. He also had pink frothy sputum as reported. He was placed on oxygen and transferred to [facility] ICU in critical condition with significant hypoxemia. He was emergently dialyzed this morning and is now currently doing much better. He did eat breakfast. He denies fevers, chills, or chest pain per se. He asks questions about his peripheral vascular disease and deferred this to Dr. Kiran and Dr. Galicia. I have reviewed his previous CTA and it does appear that he has some renal artery stenosis and this may need to be addressed if he continues to have recurrence of pulmonary edema. The timing for intervention could be coordinated either with his lower extremity PVD and/or separate PCI, which will be deferred to Dr. Kiran and Dr. Galicia. TING GARDUNO MD DR: MACARIO/alyson JOB#: [id number] / [id number]
[2017-05-06] MEDS: METOPROLOL TART IMMED RELEASE 50 MG TABLET. PO SCH ×2 (10:30→21:57)
--- NOTE | 2017-05-06 17:40 | PDOC2 ---
CONSULT Date of Consult Date of Consult DATE: 05/06/17 TIME: 17:33 Past Medical History Cardiovascular: CAD, HTN, ND Pulmonary: Other GI: Constipation, GERD, Other Heme/Onc: Anemia NOS Psych: Depression Renal/: Chronic renal failure, Other Endocrine: Diabetes, Hyperparathyroidism Past Surgical History Past Surgical History: Appendectomy, Cholecystectomy, Other Family History Family History: Cancer, Diabetes, Kidney Disease, Stroke Social History ALCOHOL: none Drugs: None Lives: with Family Domestic Violence: Neg Current Medications Current Medications Current Medications Alprazolam (Xanax) 0.5 mg PRN Q6HRS PRN PO ANXIETY / AGITATION Last administered on 05/06/17 14:25; Start 05/06/17 at 03:15 Calcium Carbonate/ Glycine (Tums) 500 mg TIDAC PO Last administered on 17:29; Start 05/06/17 at 07:30 Vitamin B Complex/ Vitamin C (Frances-Chilo) 1 tab DAILY PO Last administered on 08:41; Start 05/06/17 at 09:00 Hydralazine HCl (Apresoline) 50 mg TID PO Last administered on 05/06/17 14:19 ; Start 05/06/17 at 09:00 Acetaminophen/ Hydrocodone Bitart (Lortab 5/325) 1 tab PRN Q6HRS PRN PO SEVERE PAIN; Start 05/06/17 at 03:15 Metoprolol Tartrate (Lopressor) 100 mg BID PO Last administered on 05/06/17 10 :30; Start 05/06/17 at 09:00 Pantoprazole Sodium (Protonix) 40 mg DAILYAC PO Last administered on 05/06/17 08:41; Start 05/06/17 at 07:30 Paroxetine HCl (Paxil) 40 mg DAILY PO Last administered on 05/06/17 08:41; Start 05/06/17 at 09:00 Tamsulosin HCl (Flomax) 0.4 mg QHS PO ; Start 05/06/17 at 21:00 Losartan Potassium (Cozaar) 100 mg DAILY PO Last administered on 05/06/17 08: 42; Start 05/06/17 at 09:00 Non-Formulary Medication 20 mg DAILY PO ; Start 05/06/17 at 09:00; Status UNV Clopidogrel Bisulfate (Plavix) 75 mg DAILY PO Last administered on 05/06/17 08 :41; Start 05/06/17 at 09:00 Ondansetron HCl (Zofran) 4 mg PRN Q6HRS PRN IV NAUSEA/VOMITING; Start 05/06/17 at 03:45 Lorazepam (Ativan) 1 mg 1X ONCE PO Last administered on 05/06/17t 04:01; Start 05/06/17 at 04:00; Stop 05/06/17 at 04:01; Status DC Hydralazine HCl (Apresoline) 10 mg PRN Q4HRS PRN IVP ELEVATED BP, SEE COMMENTS ; Start 05/06/17 at 03:45 Sodium Chloride 1,000 ml @ 1,000 mls/hr Q1H PRN IV hypotension; Start 05/06/17 at 03:57; Stop 05/06/17 at 09:56; Status DC Info (PHARMACY MONITORING -- do not chart) 1 each PRN DAILY PRN MC SEE COMMENTS ; Start 05/06/17 at 04:00 Active Scripts Active Flomax (Tamsulosin Hcl) 0.4 Mg Cap.er.24h 0.4 Mg PO QHS Reported Metoprolol Succinate ( Xl ) (Metoprolol Succinate) 100 Mg Tab.er.24h 100 BID Pantoprazole Sodium 40 Mg Tablet.dr 40 BID Plavix (Clopidogrel Bisulfate) 75 Mg Tablet 75 DAILY Losartan Potassium 100 Mg Tablet 100 DAILY Furosemide 80 Mg Tablet 80 BID Hydralazine Hcl 50 Mg Tablet 50 TID Hydrocodone-Apap 5-325 (Hydrocodone Bit/Acetaminophen) 1 Each Tablet 1 Tab PO PRN Q6HRS PRN Nephro-Chilo Tablet (Folic Acid/Vitamin B Comp W-C) 0.8 Mg Tablet 1 Tab PO DAILY Paroxetine Hcl 20 Mg Tablet 40 Mg PO DAILY Tums (Calcium Carbonate) 200 Mg Tab.chew 800 Mg PO TIDAC Omeprazole Magnesium 20 Mg Capsule.dr 20 Mg PO DAILY Xanax (Alprazolam) 0.5 Mg Tablet 0.5 Mg PO Q6HRS PRN LAST DOSE: 02/23/16 BEDTIME NEXT DOSE: 02/24/16 BEDTIME Allergies Allergies: Coded Allergies: aspirin (Verified Allergy, Intermediate, 04/16/17) Vitals VITALS Vital Signs Date Time Temp Pulse Resp B/P (MAP) Pulse Ox O2 Delivery O2 Flow Rate FiO2 05/06/17 16:00 98.0 63 18 153/68 (96) 96 Room Air 98.0 05/06/17 12:00 3.0 Labs Labs Laboratory Tests Test 05/06/17 06:00 05/06/17 09:15 05/06/17 12:00 05/06/17 16:34 White Blood Count 10.6 x10^3/uL (4.0-11.0) Red Blood Count 4.10 x10^6/uL (4.30-5.70) Hemoglobin 12.5 g/dL (13.0-17.5) Hematocrit 36.1 % (39.0-53.0) Mean Corpuscular Volume 88 fL (79-100) Mean Corpuscular Hemoglobin 31 pg (25-35) Mean Corpuscular Hemoglobin Concent 35 g/dL (31-37) Red Cell Distribution Width 15.3 % (11.5-14.5) Platelet Count 229 x10^3/uL (140-400) Neutrophils (%) (Auto) 81 % (31-73) Lymphocytes (%) (Auto) 9 % (24-48) Monocytes (%) (Auto) 6 % (0-9) Eosinophils (%) (Auto) 3 % (0-3) Basophils (%) (Auto) 1 % (0-3) Neutrophils # (Auto) 8.6 x10^3uL (1.8-7.7) Lymphocytes # (Auto) 0.9 x10^3/uL (1.0-4.8) Monocytes # (Auto) 0.7 x10^3/uL (0.0-1.1) Eosinophils # (Auto) 0.3 x10^3/uL (0.0-0.7) Basophils # (Auto) 0.2 x10^3/uL (0.0-0.2) Troponin I Quantitative 0.063 ng/mL (0.000-0.055) 0.048 ng/mL (0.000-0.055) Sodium Level 138 mmol/L (136-145) Potassium Level 4.3 mmol/L (3.5-5.1) Chloride Level 97 mmol/L (98-107) Carbon Dioxide Level 32 mmol/L (21-32) Anion Gap 9 (6-14) Blood Urea Nitrogen 36 mg/dL (8-26) Creatinine 8.0 mg/dL (0.7-1.3) Estimated GFR (Cockcroft-Gault) 6.9 Glucose Level 180 mg/dL (70-99) Calcium Level 7.7 mg/dL (8.5-10.1) Glucose (Fingerstick) 151 mg/dL (70-99) Laboratory Tests Test 05/06/17 06:00 05/06/17 09:15 05/06/17 12:00 05/06/17 16:34 White Blood Count 10.6 x10^3/uL (4.0-11.0) Red Blood Count 4.10 x10^6/uL (4.30-5.70) Hemoglobin 12.5 g/dL (13.0-17.5) Hematocrit 36.1 % (39.0-53.0) Mean Corpuscular Volume 88 fL (79-100) Mean Corpuscular Hemoglobin 31 pg (25-35) Mean Corpuscular Hemoglobin Concent 35 g/dL (31-37) Red Cell Distribution Width 15.3 % (11.5-14.5) Platelet Count 229 x10^3/uL (140-400) Neutrophils (%) (Auto) 81 % (31-73) Lymphocytes (%) (Auto) 9 % (24-48) Monocytes (%) (Auto) 6 % (0-9) Eosinophils (%) (Auto) 3 % (0-3) Basophils (%) (Auto) 1 % (0-3) Neutrophils # (Auto) 8.6 x10^3uL (1.8-7.7) Lymphocytes # (Auto) 0.9 x10^3/uL (1.0-4.8) Monocytes # (Auto) 0.7 x10^3/uL (0.0-1.1) Eosinophils # (Auto) 0.3 x10^3/uL (0.0-0.7) Basophils # (Auto) 0.2 x10^3/uL (0.0-0.2) Troponin I Quantitative 0.063 ng/mL (0.000-0.055) 0.048 ng/mL (0.000-0.055) Sodium Level 138 mmol/L (136-145) Potassium Level 4.3 mmol/L (3.5-5.1) Chloride Level 97 mmol/L (98-107) Carbon Dioxide Level 32 mmol/L (21-32) Anion Gap 9 (6-14) Blood Urea Nitrogen 36 mg/dL (8-26) Creatinine 8.0 mg/dL (0.7-1.3) Estimated GFR (Cockcroft-Gault) 6.9 Glucose Level 180 mg/dL (70-99) Calcium Level 7.7 mg/dL (8.5-10.1) Glucose (Fingerstick) 151 mg/dL (70-99) Assessment/Plan Assessment/Plan Vascular Consult dictated Imp: 1. arterial insufficiency right leg with near disabling claudication. Known right profunda femoral origin stenosis and occlusion of the superficial femoral artery. Ant. tibial and peroneal arteries are the runoff vessels. Stenosis at the origin of the peroneal artery by prior angio. 2. ESRD, chronic, requiring hemodialysis for the past 5 years. 3. tobaccoism 4. pulmonary edema which responds to acute dialysis. Currently pt is back to baseline 5. s/p CABG with vein harvest left leg Rec: 1. obtain vein mapping right leg 2. candidate for right femoral endarterectomy and right fem to popliteal or proximal anterior tibial artery bypass. 3. procedure can be done electively. Will check OR and surgeon availability. AMBROCIO HENNING II, MD May 06, 2017 17:40
--- NOTE | 2017-05-06 20:48 | HP ---
ADMIT DATE: 05/06/2017 CHIEF COMPLAINT: Shortness of breath. HISTORY OF THE PRESENT ILLNESS: A 61-year-old male patient with several comorbid conditions who presented to the [facility] ER with complaints of shortness of breath and orthopnea. As per the patient, he denies any hemodialysis; however, recently, he visited [place] for his son's birthday. Also, he had a family member . Lately, he is not controlling his diet, but denies missing any hemodialysis. At the time of arrival to the ER, the patient was requiring nonrebreather, and he was significantly hypoxemic and dyspneic, and he was requiring IV Lasix. Later, the patient was transferred to [facility] for emergent hemodialysis. After dialysis, the patient's symptoms improved, and this morning when I examined, the patient denies any chest pain, shortness of breath, or palpitations. He had a recent CABG nearly 2 weeks ago. PAST MEDICAL HISTORY: Please see my electronic H and P. REVIEW OF SYSTEMS: Please see my electronic H and P. PHYSICAL EXAMINATION: Please see my electronic H and P. LABORATORY FINDINGS: Sodium 138, potassium 4.3, chloride is 97, carbon dioxide 32, anion gap is 9, BUN is 36, creatinine is 0.8, GFR is 6.9, , calcium 7.7, The patient had a chronically elevated troponins. WBC 10.6, hemoglobin 12.5, MCV is 88, and platelets 229. UA: . Recent images showed severe decreased peripheral vascular disease. Both renal arteries demonstrated 90% luminal diameter stenosis with proximal left renal artery. ASSESSMENT AND PLAN: 1. Acute hypoxic respiratory failure due to volume overload. 2. Coronary artery disease with recent coronary artery bypass graft. 3. Severe anxiety. 4. Obesity. 5. Hypertension. 6. Gastritis. 7. Elevated troponins. 8. Renal artery stenosis. PLAN: I discussed with the ER physician on the patient's case, and we arranged for emergent hemodialysis. Later, the patient's symptoms have been improving. The patient has mild elevation of troponins which is chronic in nature due to hemodialysis and end-stage renal disease. At this time, the patient did not have any acute chest pain. His initial EKG did not show any acute severe changes. I did discuss with the Nephrology. We will continue hemodialysis and consult Vascular Surgery for any further recommendation for surgical intervention. Cardiology has been consulted. Christin. Xanax for anxiety. Ativan IV has been prescribed. Blood pressure controlled with p.r.n. hydralazine and home medications. CBC and BMP in the a.m. Total critical care time is 31 minutes. SHANNAN CROCKETT MD DR: MARIA/alyson JOB#: [id number] / [id number] ISAAC
[2017-05-06] MEDS: TAMSULOSIN 0.4 MG CAP.ER.24H. PO SCH (21:55)
[2017-05-07] VITALS: BP 145/73
[2017-05-07 03:00] VITALS: BP 148/77
--- NOTE | 2017-05-07 04:20 | CONS ---
DATE OF CONSULTATION: 05/06/2017 CLINICAL HISTORY: This is a 61-year-old gentleman who was previously evaluated for peripheral vascular disease, specifically disabling claudication of the right leg. He was admitted this morning for acute shortness of breath, which was relieved with dialysis. He currently is not short of breath, is not requiring oxygen and states that he is pretty much back to baseline. He has a history of peripheral vascular disease, having an aortogram with runoff by Dr. Rod, I believe, back in January and then a CT angiogram, which was done in March. I reviewed both of these studies. He has diffuse aortoiliac disease, but no significant stenosis. He has stenosis of the origin of the right profunda femoris artery and occlusion of a previously stented superficial femoral artery. There is reconstitution at the knee and runoff primarily via the anterior tibial artery. There is stenosis at the origin of the peroneal artery. He is having no symptoms regarding the left leg. He has significant renal artery stenosis, but has been on dialysis for the past 5 years. He has a fistula in the left forearm. He does not complain of rest pain. He claudicates after about 1/2 -1 block. He is able to sleep. He is able to get around and do most things fairly well. Unfortunately, he continues to smoke. PAST MEDICAL HISTORY: Significant for recent coronary artery bypass with vein harvested from the left leg. He is having no chest pain, and his symptoms, which preceded his coronary artery bypass, are now resolved. He has had an appendectomy and a cholecystectomy. ALLERGIES: INCLUDE ASPIRIN. MEDICATIONS: His medications are as listed and per his medical reconciliation list. Other medical illnesses include chronic renal insufficiency requiring dialysis for the past 5 years, recurrent pulmonary edema. He has no history of stroke. REVIEW OF SYSTEMS: Twelve-point review of systems is obtained and is negative other than what was mentioned in the history. PHYSICAL EXAMINATION: GENERAL: The patient is alert and awake. He is in no distress. He is not requiring oxygen to maintain adequate oxygen saturation. NECK: He has 2+ carotid and radial pulses. ABDOMEN: Soft and nontender. EXTREMITIES: He has palpable femoral pulses bilaterally, a 1+ left popliteal pulse, absent right popliteal and absent right pedal pulse. The right foot is inspected. There are no ulcerations and there is no edema in either extremity. LABORATORY DATA: Consistent with someone on dialysis. IMPRESSION: 1. Arterial insufficiency of the right leg with disabling claudication of the right leg. He unfortunately continues to smoke occasionally. 2. History of atherosclerotic heart disease. 3. History of end-stage renal disease requiring hemodialysis. 4. History of flash pulmonary edema, which responds to acute dialysis. RECOMMENDATION: We will obtain venous duplex mapping of the right leg for evaluation of the saphenous veins for use as bypass. He would be a candidate for a right common femoral endarterectomy and bypass to the below-knee popliteal or proximal anterior tibial artery. I will obtain these studies and check the schedule to see if this can be done electively this admission. If not, then he can certainly be discharged and readmitted for an elective bypass. The operation, risks and benefits were explained to the patient and he understands and wishes to proceed. AMBROCIO HENNING MD DR: ENMA/alyson JOB#: [id number] / [id number]
[2017-05-07] MEDS: ALPRAZolam 0.5 MG TABLET PO PRN ×3 (06:24→20:24)
[2017-05-07] MEDS: PANTOPRAZOLE 40 MG TABLET.DR. PO SCH (06:24)
[2017-05-07 07:50] VITALS: BP 130/73
[2017-05-07] MEDS: LOSARTAN POTASSIUM 50 MG TABLET. PO SCH (08:40)
[2017-05-07] MEDS: CALCIUM CARBONATE 500 MG TAB.CHEW PO SCH ×3 (08:40→20:27)
[2017-05-07] MEDS: FOLIC/VIT B COMP W-C (RENAL) TABLET. PO SCH (08:40)
[2017-05-07] MEDS: PARoxetine 20 MG TABLET PO SCH (08:40)
[2017-05-07] MEDS: CLOPIDOGREL BISULFATE 75 MG TABLET PO SCH (08:40)
[2017-05-07] MEDS: METOPROLOL TART IMMED RELEASE 50 MG TABLET. PO SCH ×2 (08:41→20:25)
--- NOTE | 2017-05-07 08:51 | PDOC ---
PROGRESS NOTES Subjective Subjective "I want to come back later for my leg surgery. I will call the office when I want to schedule." Objective Objective Vascular Surgery follow up: O: Walking around room on RA. Wants to go home today. Vein mapping performed this a.m. No results in computer yet. Patient needs a right fem-pop bypass for non-limb threatening PAD. States his synbbd-wi-bnd is ill in [place] and he needs to go see her prior to surgery. Will work on getting dialysis arranged in [place]. Seeing [facility] at tomorrow for "shadow on lung." Previous VQ scan done here reviewed. MIKY spot? Plan: 1 Ok to discharge to home when medically stable. 2. Will coordinate elective admission for PAD, Right fem-pop bypass when patient returns from [place] for family issue. 3. Await results of Pulm eval at tomorrow. 4. Continue antiplatelet therapy on Plavix upon discharge. Vital Signs Date Time Temp Pulse Resp B/P (MAP) Pulse Ox O2 Delivery O2 Flow Rate FiO2 05/07/17 08:41 62 130/73 05/07/17 07:50 97.5 18 97 Room Air 97.5 05/06/17 12:00 3.0 Intake and Output 05/07/17 07:00 Intake Total 1254 ml Output Total 0 ml Balance 1254 ml Intake Oral 1254 ml Output Urine Total 0 ml Stool Total 0 ml # Voids 2 Comment Review of Relevant I have reviewed the following items dionte (where applicable) has been applied. Labs Laboratory Tests Test 05/06/17 06:00 05/06/17 09:15 05/06/17 12:00 05/06/17 16:34 White Blood Count 10.6 x10^3/uL (4.0-11.0) Red Blood Count 4.10 x10^6/uL (4.30-5.70) Hemoglobin 12.5 g/dL (13.0-17.5) Hematocrit 36.1 % (39.0-53.0) Mean Corpuscular Volume 88 fL (79-100) Mean Corpuscular Hemoglobin 31 pg (25-35) Mean Corpuscular Hemoglobin Concent 35 g/dL (31-37) Red Cell Distribution Width 15.3 % (11.5-14.5) Platelet Count 229 x10^3/uL (140-400) Neutrophils (%) (Auto) 81 % (31-73) Lymphocytes (%) (Auto) 9 % (24-48) Monocytes (%) (Auto) 6 % (0-9) Eosinophils (%) (Auto) 3 % (0-3) Basophils (%) (Auto) 1 % (0-3) Neutrophils # (Auto) 8.6 x10^3uL (1.8-7.7) Lymphocytes # (Auto) 0.9 x10^3/uL (1.0-4.8) Monocytes # (Auto) 0.7 x10^3/uL (0.0-1.1) Eosinophils # (Auto) 0.3 x10^3/uL (0.0-0.7) Basophils # (Auto) 0.2 x10^3/uL (0.0-0.2) Troponin I Quantitative 0.063 ng/mL (0.000-0.055) 0.048 ng/mL (0.000-0.055) Sodium Level 138 mmol/L (136-145) Potassium Level 4.3 mmol/L (3.5-5.1) Chloride Level 97 mmol/L (98-107) Carbon Dioxide Level 32 mmol/L (21-32) Anion Gap 9 (6-14) Blood Urea Nitrogen 36 mg/dL (8-26) Creatinine 8.0 mg/dL (0.7-1.3) Estimated GFR (Cockcroft-Gault) 6.9 Glucose Level 180 mg/dL (70-99) Calcium Level 7.7 mg/dL (8.5-10.1) Glucose (Fingerstick) 151 mg/dL (70-99) Laboratory Tests Test 05/06/17 09:15 05/06/17 12:00 05/06/17 16:34 Sodium Level 138 mmol/L (136-145) Potassium Level 4.3 mmol/L (3.5-5.1) Chloride Level 97 mmol/L (98-107) Carbon Dioxide Level 32 mmol/L (21-32) Anion Gap 9 (6-14) Blood Urea Nitrogen 36 mg/dL (8-26) Creatinine 8.0 mg/dL (0.7-1.3) Estimated GFR (Cockcroft-Gault) 6.9 Glucose Level 180 mg/dL (70-99) Calcium Level 7.7 mg/dL (8.5-10.1) Troponin I Quantitative 0.048 ng/mL (0.000-0.055) Glucose (Fingerstick) 151 mg/dL (70-99) Medications Current Medications Alprazolam (Xanax) 0.5 mg PRN Q6HRS PRN PO ANXIETY / AGITATION Last administered on 05/07/17 06:24; Start 05/06/17 at 03:15 Calcium Carbonate/ Glycine (Tums) 500 mg TIDAC PO Last administered on 08:40; Start 05/06/17 at 07:30 Vitamin B Complex/ Vitamin C (Frances-Chilo) 1 tab DAILY PO Last administered on 08:40; Start 05/06/17 at 09:00 Hydralazine HCl (Apresoline) 50 mg TID PO Last administered on 05/07/17 08:41 ; Start 05/06/17 at 09:00 Acetaminophen/ Hydrocodone Bitart (Lortab 5/325) 1 tab PRN Q6HRS PRN PO SEVERE PAIN; Start 05/06/17 at 03:15 Metoprolol Tartrate (Lopressor) 100 mg BID PO Last administered on 05/07/17 08 :41; Start 05/06/17 at 09:00 Pantoprazole Sodium (Protonix) 40 mg DAILYAC PO Last administered on 05/07/17 06:24; Start 05/06/17 at 07:30 Paroxetine HCl (Paxil) 40 mg DAILY PO Last administered on 05/07/17 08:40; Start 05/06/17 at 09:00 Tamsulosin HCl (Flomax) 0.4 mg QHS PO Last administered on 05/06/17 21:55; Start 05/06/17 at 21:00 Losartan Potassium (Cozaar) 100 mg DAILY PO Last administered on 05/07/17 08: 40; Start 05/06/17 at 09:00 Non-Formulary Medication 20 mg DAILY PO ; Start 05/06/17 at 09:00; Status UNV Clopidogrel Bisulfate (Plavix) 75 mg DAILY PO Last administered on 05/07/17 08 :40; Start 05/06/17 at 09:00 Ondansetron HCl (Zofran) 4 mg PRN Q6HRS PRN IV NAUSEA/VOMITING; Start 05/06/17 at 03:45 Lorazepam (Ativan) 1 mg 1X ONCE PO Last administered on 05/06/17t 04:01; Start 05/06/17 at 04:00; Stop 05/06/17 at 04:01; Status DC Hydralazine HCl (Apresoline) 10 mg PRN Q4HRS PRN IVP ELEVATED BP, SEE COMMENTS ; Start 05/06/17 at 03:45 Sodium Chloride 1,000 ml @ 1,000 mls/hr Q1H PRN IV hypotension; Start 05/06/17 at 03:57; Stop 05/06/17 at 09:56; Status DC Info (PHARMACY MONITORING -- do not chart) 1 each PRN DAILY PRN MC SEE COMMENTS ; Start 05/06/17 at 04:00 Active Scripts Active Flomax (Tamsulosin Hcl) 0.4 Mg Cap.er.24h 0.4 Mg PO QHS Reported Metoprolol Succinate ( Xl ) (Metoprolol Succinate) 100 Mg Tab.er.24h 100 BID Pantoprazole Sodium 40 Mg Tablet.dr 40 BID Plavix (Clopidogrel Bisulfate) 75 Mg Tablet 75 DAILY Losartan Potassium 100 Mg Tablet 100 DAILY Furosemide 80 Mg Tablet 80 BID Hydralazine Hcl 50 Mg Tablet 50 TID Hydrocodone-Apap 5-325 (Hydrocodone Bit/Acetaminophen) 1 Each Tablet 1 Tab PO PRN Q6HRS PRN Nephro-Chilo Tablet (Folic Acid/Vitamin B Comp W-C) 0.8 Mg Tablet 1 Tab PO DAILY Paroxetine Hcl 20 Mg Tablet 40 Mg PO DAILY Tums (Calcium Carbonate) 200 Mg Tab.chew 800 Mg PO TIDAC Omeprazole Magnesium 20 Mg Capsule.dr 20 Mg PO DAILY Xanax (Alprazolam) 0.5 Mg Tablet 0.5 Mg PO Q6HRS PRN LAST DOSE: 02/23/16 BEDTIME NEXT DOSE: 02/24/16 BEDTIME Vitals/I & O Vital Sign - Last 24 Hours 05/06/17 05/06/17 05/06/17 05/06/17 09:00 10:30 12:00 12:00 Pulse 67 78 75 Resp 20 B/P (MAP) 172/88 (116) 155/69 155/72 (99) Pulse Ox 98 98 O2 Delivery Nasal Cannula Room Air Nasal Cannula O2 Flow Rate 3.0 3.0 05/06/17 05/06/17 05/06/17 05/06/17 14:19 16:00 20:00 21:56 Temp 98.0 97.4 98.0 97.4 Pulse 75 63 71 71 Resp 18 19 B/P (MAP) 155/72 153/68 (96) 157/89 (111) 157/89 Pulse Ox 96 97 O2 Delivery Room Air Room Air 05/06/17 05/07/17 05/07/17 05/07/17 21:57 00:00 03:00 07:50 Temp 97.5 97.0 97.5 97.5 97.0 97.5 Pulse 71 64 62 62 Resp 18 18 B/P (MAP) 157/89 145/73 (97) 148/77 (100) 130/73 (92) Pulse Ox 97 93 97 O2 Delivery Room Air Room Air Room Air 05/07/17 05/07/17 05/07/17 08:40 08:41 08:41 Pulse 62 62 62 B/P (MAP) 130/73 130/73 130/73 Intake and Output 05/06/17 05/06/17 05/07/17 15:00 23:00 07:00 Intake Total 554 ml 700 ml Output Total 0 ml 0 ml Balance 554 ml 700 ml 0 ml PAM THOMSON APRN May 07, 2017 08:51
--- NOTE | 2017-05-07 09:52 | RAD ---
Examination: Ultrasound right lower extremity vein mapping History: History of right leg venous mapping for bypass Comparison: 04/17/2017 Technique: Grayscale, color Doppler 2-D, spectral waveform analysis of the right lower extremity superficial venous system was performed Findings The right greater saphenous vein measures 4.7 mm at its junction with the common femoral vein. It measures 3.6 mm in the proximal thigh, 2.4 mm in the mid thigh, and 2.3 mm in the distal thigh. The greater saphenous vein in the region of the knee measures 1.8 mm, proximal calf it measures 2 mm , in the mid calf measures 2.1 mm, and the distal calf measures 1.7 mm in diameter. In the proximal calf the right lesser saphenous vein measures 3.2 mm, mid calf it measures 3.2 mm, in the distal calf the lesser saphenous vein measures 2.4 mm. Impression: Right lower extremity superficial vein mapping as described.
[2017-05-07 10:30] VITALS: BP 143/67
--- NOTE | 2017-05-07 13:58 | PDOC ---
PROGRESS NOTES Chief Complaint Chief Complaint Acute hypoxic respiratory failure ASSESSMENT AND PLAN: 1. Flash pulm edema: received emergent HD with resolution of sx. 2. CAD: hx CABG. no acute issues. 3. Troponin elevation: chronic 2/2 ESRD 4. Arterial insufficiency of the right leg with disabling claudication of the right leg: appreciate vasc surg input: will have elective bypass surgery on O/ P basis 5. Pulm abn: has manisha.t with ID and Pulm at [facility] for F/U in AM to r/o Tb 6. Renal artery stenosis. 7. 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 Severe anxiety: on xanax tid. requesting script. cont paxil 9. Hypertension: borderline high on multi-drug home regimen. may need adjustment; F/U with nephro and cards 10. Gastritis: chronic. on PPI 11. Obesity. History of Present Illness History of Present Illness feels good, no SOB or CP. wants to go home Vitals Vitals Vital Signs Date Time Temp Pulse Resp B/P (MAP) Pulse Ox O2 Delivery O2 Flow Rate FiO2 05/07/17 10:30 96.4 60 18 143/67 (92) 96 Room Air 96.4 05/06/17 12:00 3.0 Physical Exam General: Alert, Oriented X3, Cooperative, No acute distress Heart: Regular rate Lungs: Crackles (mild bilat), Other Abdomen: Normal bowel sounds, Soft, No tenderness Extremities: No edema Skin: No rashes Labs LABS Laboratory Tests Test 05/06/17 16:34 Glucose (Fingerstick) 151 mg/dL (70-99) Comment Review of Relevant I have reviewed the following items dionte (where applicable) has been applied. Labs Laboratory Tests Test 05/06/17 06:00 05/06/17 09:15 05/06/17 12:00 05/06/17 16:34 White Blood Count 10.6 x10^3/uL (4.0-11.0) Red Blood Count 4.10 x10^6/uL (4.30-5.70) Hemoglobin 12.5 g/dL (13.0-17.5) Hematocrit 36.1 % (39.0-53.0) Mean Corpuscular Volume 88 fL (79-100) Mean Corpuscular Hemoglobin 31 pg (25-35) Mean Corpuscular Hemoglobin Concent 35 g/dL (31-37) Red Cell Distribution Width 15.3 % (11.5-14.5) Platelet Count 229 x10^3/uL (140-400) Neutrophils (%) (Auto) 81 % (31-73) Lymphocytes (%) (Auto) 9 % (24-48) Monocytes (%) (Auto) 6 % (0-9) Eosinophils (%) (Auto) 3 % (0-3) Basophils (%) (Auto) 1 % (0-3) Neutrophils # (Auto) 8.6 x10^3uL (1.8-7.7) Lymphocytes # (Auto) 0.9 x10^3/uL (1.0-4.8) Monocytes # (Auto) 0.7 x10^3/uL (0.0-1.1) Eosinophils # (Auto) 0.3 x10^3/uL (0.0-0.7) Basophils # (Auto) 0.2 x10^3/uL (0.0-0.2) Troponin I Quantitative 0.063 ng/mL (0.000-0.055) 0.048 ng/mL (0.000-0.055) Sodium Level 138 mmol/L (136-145) Potassium Level 4.3 mmol/L (3.5-5.1) Chloride Level 97 mmol/L (98-107) Carbon Dioxide Level 32 mmol/L (21-32) Anion Gap 9 (6-14) Blood Urea Nitrogen 36 mg/dL (8-26) Creatinine 8.0 mg/dL (0.7-1.3) Estimated GFR (Cockcroft-Gault) 6.9 Glucose Level 180 mg/dL (70-99) Calcium Level 7.7 mg/dL (8.5-10.1) Glucose (Fingerstick) 151 mg/dL (70-99) Laboratory Tests Test 05/06/17 16:34 Glucose (Fingerstick) 151 mg/dL (70-99) Medications Current Medications Alprazolam (Xanax) 0.5 mg PRN Q6HRS PRN PO ANXIETY / AGITATION Last administered on 05/07/17 12:36; Start 05/06/17 at 03:15 Calcium Carbonate/ Glycine (Tums) 500 mg TIDAC PO Last administered on 11:50; Start 05/06/17 at 07:30 Vitamin B Complex/ Vitamin C (Frances-Chilo) 1 tab DAILY PO Last administered on 08:40; Start 05/06/17 at 09:00 Hydralazine HCl (Apresoline) 50 mg TID PO Last administered on 05/07/17 08:41 ; Start 05/06/17 at 09:00 Acetaminophen/ Hydrocodone Bitart (Lortab 5/325) 1 tab PRN Q6HRS PRN PO SEVERE PAIN; Start 05/06/17 at 03:15 Metoprolol Tartrate (Lopressor) 100 mg BID PO Last administered on 05/07/17 08 :41; Start 05/06/17 at 09:00 Pantoprazole Sodium (Protonix) 40 mg DAILYAC PO Last administered on 05/07/17 06:24; Start 05/06/17 at 07:30 Paroxetine HCl (Paxil) 40 mg DAILY PO Last administered on 05/07/17 08:40; Start 05/06/17 at 09:00 Tamsulosin HCl (Flomax) 0.4 mg QHS PO Last administered on 05/06/17 21:55; Start 05/06/17 at 21:00 Losartan Potassium (Cozaar) 100 mg DAILY PO Last administered on 05/07/17 08: 40; Start 05/06/17 at 09:00 Non-Formulary Medication 20 mg DAILY PO ; Start 05/06/17 at 09:00; Status UNV Clopidogrel Bisulfate (Plavix) 75 mg DAILY PO Last administered on 05/07/17 08 :40; Start 05/06/17 at 09:00 Ondansetron HCl (Zofran) 4 mg PRN Q6HRS PRN IV NAUSEA/VOMITING; Start 05/06/17 at 03:45 Lorazepam (Ativan) 1 mg 1X ONCE PO Last administered on 05/06/17 04:01; Start 05/06/17 at 04:00; Stop 05/06/17 at 04:01; Status DC Hydralazine HCl (Apresoline) 10 mg PRN Q4HRS PRN IVP ELEVATED BP, SEE COMMENTS ; Start 05/06/17 at 03:45 Sodium Chloride 1,000 ml @ 1,000 mls/hr Q1H PRN IV hypotension; Start 05/06/17 at 03:57; Stop 05/06/17 at 09:56; Status DC Info (PHARMACY MONITORING -- do not chart) 1 each PRN DAILY PRN MC SEE COMMENTS ; Start 05/06/17 at 04:00 Active Scripts Active Flomax (Tamsulosin Hcl) 0.4 Mg Cap.er.24h 0.4 Mg PO QHS Reported Metoprolol Succinate ( Xl ) (Metoprolol Succinate) 100 Mg Tab.er.24h 100 BID Pantoprazole Sodium 40 Mg Tablet.dr 40 BID Plavix (Clopidogrel Bisulfate) 75 Mg Tablet 75 DAILY Losartan Potassium 100 Mg Tablet 100 DAILY Furosemide 80 Mg Tablet 80 BID Hydralazine Hcl 50 Mg Tablet 50 TID Hydrocodone-Apap 5-325 (Hydrocodone Bit/Acetaminophen) 1 Each Tablet 1 Tab PO PRN Q6HRS PRN Nephro-Chilo Tablet (Folic Acid/Vitamin B Comp W-C) 0.8 Mg Tablet 1 Tab PO DAILY Paroxetine Hcl 20 Mg Tablet 40 Mg PO DAILY Tums (Calcium Carbonate) 200 Mg Tab.chew 800 Mg PO TIDAC Omeprazole Magnesium 20 Mg Capsule.dr 20 Mg PO DAILY Xanax (Alprazolam) 0.5 Mg Tablet 0.5 Mg PO Q6HRS PRN LAST DOSE: 02/23/16 BEDTIME NEXT DOSE: 02/24/16 BEDTIME Vitals/I & O Vital Sign - Last 24 Hours 05/06/17 05/06/17 05/06/17 05/06/17 14:19 16:00 20:00 21:56 Temp 98.0 97.4 98.0 97.4 Pulse 75 63 71 71 Resp 18 19 B/P (MAP) 155/72 153/68 (96) 157/89 (111) 157/89 Pulse Ox 96 97 O2 Delivery Room Air Room Air 05/06/17 05/07/17 05/07/17 05/07/17 21:57 00:00 03:00 07:50 Temp 97.5 97.0 97.5 97.5 97.0 97.5 Pulse 71 64 62 62 Resp 18 18 B/P (MAP) 157/89 145/73 (97) 148/77 (100) 130/73 (92) Pulse Ox 97 93 97 O2 Delivery Room Air Room Air Room Air 05/07/17 05/07/17 05/07/17 05/07/17 08:30 08:40 08:41 08:41 Pulse 62 62 62 B/P (MAP) 130/73 130/73 130/73 O2 Delivery Room Air 05/07/17 10:30 Temp 96.4 96.4 Pulse 60 Resp 18 B/P (MAP) 143/67 (92) Pulse Ox 96 O2 Delivery Room Air Intake and Output 05/06/17 05/06/17 05/07/17 15:00 23:00 07:00 Intake Total 554 ml 700 ml Output Total 0 ml 0 ml Balance 554 ml 700 ml 0 ml WENDI GUTIERREZ MD May 07, 2017 13:58
[2017-05-07] MEDS ORDERED: ALPR0.5T PO (14:10)
[2017-05-07 14:30] VITALS: BP 138/66
[2017-05-07] MEDS ORDERED: IV NORMAL SALINE 1000ML BAG 1,000 ML IV PRN (16:19)
[2017-05-07] MEDS ORDERED: diphenhydrAMINE 50 MG/ML VIAL IV PRN ×2 (16:30)
[2017-05-07] MEDS ORDERED: DIALYSIS PATIENT. MC PRN ×2 (16:30)
--- NOTE | 2017-05-07 17:20 | PDOC ---
Dialysis Progress Note Dialysis Note Dialysis Note Seen on Hemodialysis, tolerating treatment Okay Vitals on Hemodialysis: 147/71 59 afeb General Appearance: Awake: Alert Oriented x 3 Neck: No JVD or JVP Chest: CTA Oliver Heart: S1 S2 Abdomen - Soft NTND Extremities - No EdemaESRD ARF: Dialysis as below F 180 NR 3.5 Hrs 3 K 3.0 Ca 140 Na 35 HC03 Qb 350 + Qd 500+ Heparin 0 Units Uf 3 Kgs or to dry weight as tolerated May give 25-50 gms of 25% Albumin if needed to maintain Hemodynamic stability Treatment plan reviewed and discussed with tool and machine maintainer Vitals Vital Signs Vital Signs Date Time Temp Pulse Resp B/P (MAP) Pulse Ox O2 Delivery O2 Flow Rate FiO2 05/07/17 14:30 97.5 62 18 138/66 (90) 98 Room Air 97.5 05/06/17 12:00 3.0 Labs Last Labs Laboratory Tests Test 05/06/17 06:00 05/06/17 09:15 05/06/17 12:00 05/06/17 16:34 White Blood Count 10.6 x10^3/uL (4.0-11.0) Red Blood Count 4.10 x10^6/uL (4.30-5.70) Hemoglobin 12.5 g/dL (13.0-17.5) Hematocrit 36.1 % (39.0-53.0) Mean Corpuscular Volume 88 fL (79-100) Mean Corpuscular Hemoglobin 31 pg (25-35) Mean Corpuscular Hemoglobin Concent 35 g/dL (31-37) Red Cell Distribution Width 15.3 % (11.5-14.5) Platelet Count 229 x10^3/uL (140-400) Neutrophils (%) (Auto) 81 % (31-73) Lymphocytes (%) (Auto) 9 % (24-48) Monocytes (%) (Auto) 6 % (0-9) Eosinophils (%) (Auto) 3 % (0-3) Basophils (%) (Auto) 1 % (0-3) Neutrophils # (Auto) 8.6 x10^3uL (1.8-7.7) Lymphocytes # (Auto) 0.9 x10^3/uL (1.0-4.8) Monocytes # (Auto) 0.7 x10^3/uL (0.0-1.1) Eosinophils # (Auto) 0.3 x10^3/uL (0.0-0.7) Basophils # (Auto) 0.2 x10^3/uL (0.0-0.2) Troponin I Quantitative 0.063 ng/mL (0.000-0.055) 0.048 ng/mL (0.000-0.055) Sodium Level 138 mmol/L (136-145) Potassium Level 4.3 mmol/L (3.5-5.1) Chloride Level 97 mmol/L (98-107) Carbon Dioxide Level 32 mmol/L (21-32) Anion Gap 9 (6-14) Blood Urea Nitrogen 36 mg/dL (8-26) Creatinine 8.0 mg/dL (0.7-1.3) Estimated GFR (Cockcroft-Gault) 6.9 Glucose Level 180 mg/dL (70-99) Calcium Level 7.7 mg/dL (8.5-10.1) Glucose (Fingerstick) 151 mg/dL (70-99) TING GARDUNO MD May 07, 2017 17:20
[2017-05-07] MEDS ORDERED: HEPARIN PF 500 UNIT/5 ML DISP.SYRIN. IV ONE (19:00)
[2017-05-07 20:26] VITALS: BP 168/84
[2017-05-07] MEDS: TAMSULOSIN 0.4 MG CAP.ER.24H. PO SCH (20:26)
--- NOTE | 2017-05-08 23:04 | DS ---
DATE OF DISCHARGE: 05/07/2017 CHIEF COMPLAINT: Acute hypoxic respiratory failure. HOSPITAL COURSE: The patient is a 61-year-old gentleman with known history of CAD, CHF and end-stage renal disease who presented with flash pulmonary edema to the Emergency Room. He received emergent dialysis with complete resolution of his symptoms. He had experienced no other chest pain, nausea, vomiting, fevers, chills and was ready for discharge the following day. PHYSICAL EXAMINATION: Please refer to note from same day. DISCHARGE DATE: 05/07/2017 DISCHARGE DIAGNOSIS: Flash pulmonary edema DISCHARGE DISPOSITION: To home. DISCHARGE CONDITION: Improved. DISCHARGE MEDICATIONS: Please refer to MAR. DISCHARGE INSTRUCTIONS: The patient will follow up with ID and Pulmonary at [facility] as arranged on 05/08/2017. He will also follow up with Vascular Surgery for evaluation of an elective bypass surgery in the near future. He will see his PCP in 1-2 weeks. WENDI GUTIERREZ MD DR: UR/nts JOB#: [id number] / [id number] TRACY Fagan MD
== END 2017-05-07 20:35 | disposition home or self-care (01) | DRG 189 ==
LOC: 1 WEST ICU 02:43 → 5 NORTH 14:03
PROVIDERS: ADMIT Internal Medicine; ATTEND Internal Medicine
PROC: 5A1D00Z (ICD-10-PCS; principal; 2017-05-07)
DX: J96.01 Acute respiratory failure with hypoxia (principal); N18.6 End stage renal disease; I13.2 Hypertensive heart and chronic kidney disease with heart failure and with stage 5 chronic kidney disease, or end stage renal disease; Q61.3 Polycystic kidney, unspecified; E87.70 Fluid overload, unspecified; E11.22 Type 2 diabetes mellitus with diabetic chronic kidney disease; E66.9 Obesity, unspecified; F17.200 Nicotine dependence, unspecified, uncomplicated; F41.9 Anxiety disorder, unspecified; I25.10 Atherosclerotic heart disease of native coronary artery without angina pectoris; D64.9 Anemia, unspecified; E11.51 Type 2 diabetes mellitus with diabetic peripheral angiopathy without gangrene; I77.1 Stricture of artery; I70.1 Atherosclerosis of renal artery; E21.3 Hyperparathyroidism, unspecified; F32.9 Major depressive disorder, single episode, unspecified; K59.00 Constipation, unspecified; K21.9 Gastro-esophageal reflux disease without esophagitis; K29.70 Gastritis, unspecified, without bleeding; Z82.3 Family history of stroke; Z83.3 Family history of diabetes mellitus; Z95.1 Presence of aortocoronary bypass graft; Z99.2 Dependence on renal dialysis; Z90.49 Acquired absence of other specified parts of digestive tract; Z88.6 Allergy status to analgesic agent; Z80.9 Family history of malignant neoplasm, unspecified; Z84.1 Family history of disorders of kidney and ureter; I25.2 Old myocardial infarction; I50.9 Heart failure, unspecified
CPT/HCPCS: 36415; 80048; 82962; 84484; 85027; 93971; J1200

== ENCOUNTER 2017-07-01 21:32 | Inpatient (IN) | payer MEDICARE ==
[~2017-07-01] VITALS: Ht 170.2 cm; Wt 72.3 kg
[2017-07-01] MEDS ORDERED: NITROGLYCERIN SUBLINGUAL 0.4 MG BOTTLE OF 25. SL PRN (22:00)
[2017-07-01] MEDS ORDERED: ONDANSETRON PF 4 MG/2 ML VIAL. IV ONE (22:00)
[2017-07-01 22:12] LABS: BASO # 0.1 x10^3/uL (0.0-0.2); BASO % 1 % (0-3); EOS % 3 % (0-3); HEMATOCRIT 31.2 % (39.0-53.0); HEMOGLOBIN 10.6 g/dL (13.0-17.5); LYMPH # 0.8 x10^3/uL (1.0-4.8); LYMPH % 9 % (24-48); MEAN CORPUSCULAR HEMOGLOBIN 30 pg (25-35); MEAN CORPUSCULAR HGB CONC 34 g/dL (31-37); MEAN CORPUSCULAR VOLUME 89 fL (79-100); MONO % 10 % (0-9); NEUT % 78 % (31-73); PLATELET COUNT 209 x10^3/uL (140-400); RED CELL DISTRIBUTION WIDTH 14.5 % (11.5-14.5); WHITE BLOOD COUNT 9.2 x10^3/uL (4.0-11.0)
[2017-07-01 22:22] LABS: INR 0.9 (0.8-1.1); PROTHROMBIN TIME PATIENT 11.8 SEC (11.7-14.0)
[2017-07-01 22:27] LABS: CREATININE 13.3 mg/dL (0.7-1.3); GFR 3.8; POTASSIUM 5.2 mmol/L (3.5-5.1)
[2017-07-01 22:33] LABS: ALBUMIN 3.5 g/dL (3.4-5.0); ALBUMIN/GLOBULIN RATIO 0.9 (1.0-1.7); TOTAL BILIRUBIN 0.5 mg/dL (0.2-1.0); TOTAL PROTEIN 7.4 g/dL (6.4-8.2)
[2017-07-01] MEDS ORDERED: ACETAMINOPHEN 325 MG TABLET. PO PRN (23:30)
[2017-07-01] MEDS ORDERED: LORazepam 1 MG TABLET PO PRN (23:30)
[2017-07-01] MEDS ORDERED: ONDANSETRON PF 4 MG/2 ML VIAL. IV PRN (23:30)
--- NOTE | 2017-07-01 23:38 | PHYS DOC ---
Past Medical History Past Medical History: A-Fib, Anxiety, Cancer, CHF, High Cholesterol, Hypertension, VA, Pancreatitis, Renal Disease, Renal Failure Additional Past Medical Histor: Ulcers, Cardiac Stent, polycystic disease, dialysis Past Surgical History: Appendectomy, Cholecystectomy, Coronary Bypass Surgery, Other Additional Past Surgical Histo: Dialysis shunt L) arm. cardiac stent, lens implants Alcohol Use: Sober Drug Use: None Adult General Chief Complaint Chief Complaint: CHEST PAIN HPI HPI Patient is a 61 year old male who presents with chest pain, body aches, & shortness of breath. Symptoms began earlier today. He reports sharp substernal chest pain, epigastric abdominal pain, vomiting, shortness of breath. States he only received dialysis for 1 hour on Saturday due to travel. Usual schedule is //Sat. EKG no specific changes. Obtained labs & CXR. Findings of CHF. Gave aspirin & nitro upon arrival. Dyspnea & pain improved with nitro. Obtained labs which show no elevation of troponin. Recommend admission to the hospital for further evaluation & treatment. The patient agrees with plan of care. Discussed with Dr. Giles who agrees to admit to inpatient status. The patient is admitted in stable condition. Review of Systems Review of Systems Constitutional: Denies fever or chills Eyes: Denies change in visual acuity HENT: Denies nasal congestion or sore throat Respiratory: Denies cough, reports shortness of breath Cardiovascular: Reports chest pain, denies edema GI: Denies abdominal pain, nausea, vomiting, bloody stools or diarrhea Musculoskeletal: Denies back pain or joint pain Integument: Denies rash or skin lesions Neurologic: Denies headache, focal weakness or sensory changes Current Medications Current Medications Current Medications Medications (Trade) Dose Ordered Sig/Cirilo Start Time Stop Time Status Last Admin Dose Admin Nitroglycerin (Nitrostat) 0.4 mg PRN Q5MIN PRN 07/01/17 22:00 07/01/17 22:36 0.4 MG Ondansetron HCl (Zofran) 4 mg 1X ONCE 07/01/17 22:00 07/01/17 22:02 DC 07/01/17 22:36 4 MG Allergies Allergies Allergies Coded Allergies Type Severity Reaction Last Updated Verified aspirin Allergy Intermediate 04/16/17 Yes Physical Exam Physical Exam Constitutional: Well developed, well nourished, no acute distress, non-toxic appearance. HENT: Normocephalic, atraumatic, bilateral external ears normal, oropharynx moist, nose normal. Eyeconjunctiva normal, no discharge. Neck: supple, no stridor. Cardiovascular: RRR, no murmurs, no edema. Lungs & Thorax: LCTAB, no wheezing, no respiratory distress. Abdomen: soft, nontender, nondistended. Skin: Warm, dry, no erythema, no rash. Back: No tenderness. Extremities: No tenderness, no edema. Neurologic: Alert and oriented X 3, no focal deficits noted. Psychologic: Affect normal, judgement normal, mood normal. Current Patient Data Vital Signs Vital Signs Date Time Temp Pulse Resp B/P (MAP) Pulse Ox O2 Delivery O2 Flow Rate FiO2 07/01/17 22:40 65 18 138/67 (90) 91 Nasal Cannula 2.0 07/01/17 21:40 97.8 97.8 Lab Values Laboratory Tests Test 07/01/17 22:00 White Blood Count 9.2 x10^3/uL (4.0-11.0) Red Blood Count 3.50 x10^6/uL (4.30-5.70) L Hemoglobin 10.6 g/dL (13.0-17.5) L Hematocrit 31.2 % (39.0-53.0) L Mean Corpuscular Volume 89 fL (79-100) Mean Corpuscular Hemoglobin 30 pg (25-35) Mean Corpuscular Hemoglobin Concent 34 g/dL (31-37) Red Cell Distribution Width 14.5 % (11.5-14.5) Platelet Count 209 x10^3/uL (140-400) Neutrophils (%) (Auto) 78 % (31-73) H Lymphocytes (%) (Auto) 9 % (24-48) L Monocytes (%) (Auto) 10 % (0-9) H Eosinophils (%) (Auto) 3 % (0-3) Basophils (%) (Auto) 1 % (0-3) Neutrophils # (Auto) 7.1 x10^3uL (1.8-7.7) Lymphocytes # (Auto) 0.8 x10^3/uL (1.0-4.8) L Monocytes # (Auto) 0.9 x10^3/uL (0.0-1.1) Eosinophils # (Auto) 0.2 x10^3/uL (0.0-0.7) Basophils # (Auto) 0.1 x10^3/uL (0.0-0.2) Prothrombin Time 11.8 SEC (11.7-14.0) Prothrombin Time INR 0.9 (0.8-1.1) PTT 38 SEC (24-38) Sodium Level 132 mmol/L (136-145) L Potassium Level 5.2 mmol/L (3.5-5.1) H Chloride Level 93 mmol/L (98-107) L Carbon Dioxide Level 20 mmol/L (21-32) L Anion Gap 19 (6-14) H Blood Urea Nitrogen 75 mg/dL (8-26) H Creatinine 13.3 mg/dL (0.7-1.3) H Estimated GFR (Cockcroft-Gault) 3.8 BUN/Creatinine Ratio 6 (6-20) Glucose Level 115 mg/dL (70-99) H Calcium Level 7.0 mg/dL (8.5-10.1) L Total Bilirubin 0.5 mg/dL (0.2-1.0) Aspartate Amino Transferase (AST) 25 U/L (15-37) Alanine Aminotransferase (ALT) 12 U/L (16-63) L Alkaline Phosphatase 99 U/L (46-116) Troponin I Quantitative 0.035 ng/mL (0.000-0.055) BN-Kru-H-Type Natriuretic Peptide > 14679 pg/mL (0-124) H Total Protein 7.4 g/dL (6.4-8.2) Albumin 3.5 g/dL (3.4-5.0) Albumin/Globulin Ratio 0.9 (1.0-1.7) L Lipase 512 U/L (73-393) H Laboratory Tests 07/01/17 22:00 Laboratory Tests 07/01/17 22:00 EKG EKG interpreted by me: NSR rate 64, no STEMI, T waves inverted leads V5-V6, 1, 2, aVL, QTc prolonged 531 ms, no ectopy. Radiology/Procedures Radiology/Procedures CXR, portable: interpreted by me: cardiomegaly, CHF, no focal infiltrate, no pneumothorax.[] Course & Med Decision Making Course & Med Decision Making Pertinent Labs and Imaging studies reviewed. (See chart for details) The patient presents with chest pain. Significant cardiac history s/p CABG. Obtained labs, EKG, CXR. Findings show CHF with slight hyperkalemia. Gave kayexalate here Recommended admission to the hospital for further evaluation & treatment, including urgent dialysis. THe patient agrees with plan of care. Discussed with Dr. Giles who agrees t o admit to inpatient status. Cardiology consult to Dr. Kiran & nephrology consult to Dr. Gonzalez. The patient is being admitted in stable condition. Dragon Disclaimer Dragon Disclaimer This electronic medical record was generated, in whole or in part, using a voice recognition dictation system. Departure Departure Impression: Primary Impression: Chest pain Additional Impressions: Fluid overload End stage renal disease CAD (coronary artery disease) Pancreatitis Accelerated hypertension Disposition: 09 ADMITTED INPATIENT Admitting Physician: Chi Giles Condition: STABLE Referrals: NO PCP (PCP) Problem Qualifiers SPIKE DURHAM MD Jul 01, 2017 23:38
[2017-07-01 23:45] VITALS: BP 148/73
[2017-07-01] MEDS ORDERED: SODIUM POLYSTYRENE SULFONATE 15 GM/60 ML ORAL.SUSP. PO ONE (23:45)
[2017-07-02] VITALS (8 sets, daily range): BP systolic 136–168; BP diastolic 67–83
[2017-07-02] MEDS: MORPHINE SULFATE 4 MG/ML DISP.SYRIN. IV PRN ×2 (00:04→06:14)
--- NOTE | 2017-07-02 06:36 | EKG ---
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
[2017-07-02 06:39] LABS: CALCIUM 6.5 mg/dL (8.5-10.1); CREATININE 13.9 mg/dL (0.7-1.3); GFR 3.7
[2017-07-02 06:41] LABS: POTASSIUM 5.2 mmol/L (3.5-5.1)
[2017-07-02 06:53] LABS: BASO # 0.1 x10^3/uL (0.0-0.2); BASO % 1 % (0-3); EOS % 3 % (0-3); HEMATOCRIT 27.9 % (39.0-53.0); HEMOGLOBIN 9.8 g/dL (13.0-17.5); LYMPH % 13 % (24-48); MEAN CORPUSCULAR HEMOGLOBIN 31 pg (25-35); MEAN CORPUSCULAR HGB CONC 35 g/dL (31-37); MEAN CORPUSCULAR VOLUME 88 fL (79-100); MONO % 10 % (0-9); NEUT % 74 % (31-73); PLATELET COUNT 178 x10^3/uL (140-400); RED BLOOD COUNT 3.18 x10^6/uL (4.30-5.70); RED CELL DISTRIBUTION WIDTH 14.7 % (11.5-14.5); WHITE BLOOD COUNT 7.7 x10^3/uL (4.0-11.0)
--- NOTE | 2017-07-02 07:04 | EKG ---
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
--- NOTE | 2017-07-02 08:18 | RAD ---
Chest radiograph 07/01/2017 at 2247 hours Indication: Shortness of air Comparison: Chest radiograph 04/17/2017 Technique: Single frontal view of the chest is provided. Findings: A left chest wall infusion port catheter is identified with the distal tip projecting over the cavoatrial junction. Median sternotomy changes are identified. Cardiomediastinal silhouette is borderline enlarged. Mild pulmonary vascular congestion. No significant pleural effusions or pneumothorax. There is bibasilar subsegmental atelectasis. Visualized osseous structures are within normal limits. Impression: 1. Stable borderline enlarged cardiomediastinal silhouette with new mild pulmonary vascular congestion, this may be seen in the setting of congestive heart failure.
[2017-07-02] MEDS ORDERED: OMEPRAZOLE MAGNESIUM 20 MG PO SCH (09:00)
--- NOTE | 2017-07-02 09:50 | PDOC2 ---
CONSULT Date of Consult Date of Consult DATE: 07/02/17 TIME: 09:43 Reason for Consult Reason for Consult: ESRD and ^ed K Referring Physician Referring Physician: Dr Giles Identification/Chief Complaint Chief Complaint SOB Problems: Source Source: Chart review, Patient History of Present Illness Reason for Visit: as dictated Past Medical History Cardiovascular: CAD, HTN, [place] Pulmonary: Other GI: Constipation, GERD, Other Heme/Onc: Anemia NOS Psych: Depression Renal/: Chronic renal failure, Other Endocrine: Diabetes, Hyperparathyroidism Past Surgical History Past Surgical History: Appendectomy, Cholecystectomy, Other Family History Family History: Cancer, Diabetes, Kidney Disease, Stroke Social History ALCOHOL: none Drugs: None Lives: with Family Domestic Violence: Neg Current Problem List Problem List Problems Medical Problems: (1) Accelerated hypertension Status: Acute (2) CAD (coronary artery disease) Status: Acute (3) Chest pain Status: Acute (4) End stage renal disease Status: Acute (5) Fluid overload Status: Acute (6) Pancreatitis Status: Acute Current Medications Current Medications Current Medications Ondansetron HCl (Zofran) 4 mg 1X ONCE IV Last administered on 07/01/17 22:36 ; Start 07/01/17 at 22:00; Stop 07/01/17 at 22:02; Status DC Nitroglycerin (Nitrostat) 0.4 mg PRN Q5MIN PRN SL CHEST PAIN Last administered on 07/01/17 22:36; Start 07/01/17 at 22:00 Ondansetron HCl (Zofran) 4 mg PRN Q8HRS PRN IV NAUSEA/VOMITING; Start 07/01/17 at 23:30; Stop 07/02/17 at 23:29 Morphine Sulfate 2 mg PRN Q2HR PRN IV PAIN Last administered on 07/02/17 06:14 ; Start 07/01/17 at 23:30; Stop 07/02/17 at 23:29 Acetaminophen (Tylenol) 650 mg PRN Q4HRS PRN PO FEVER; Start 07/01/17 at 23:30 ; Stop 07/02/17 at 23:29 Sodium Polystyrene Sulfonate (Kayexalate) 15 gm 1X ONCE PO ; Start 07/01/17 at 23:45; Stop 07/01/17 at 23:46; Status DC Lorazepam (Ativan) 1 mg PRN Q6HRS PRN PO ANXIETY / AGITATION Last administered on 07/02/17t 00:05; Start 07/01/17 at 23:30 Alprazolam (Xanax) 0.5 mg TID PRN PO ANXIETY / AGITATION; Start 07/02/17 at 09: 00 Calcium Carbonate/ Glycine (Tums) 500 mg TIDAC PO ; Start 07/02/17 at 11:30 Clopidogrel Bisulfate (Plavix) 75 mg DAILYWBKFT PO ; Start 07/02/17 at 09:00 Vitamin B Complex/ Vitamin C (Frances-Chilo) 1 tab DAILY PO ; Start 07/02/17 at 09: 00 Furosemide (Lasix) 80 mg BID92 PO ; Start 07/02/17 at 09:00 Hydralazine HCl (Apresoline) 50 mg TID PO ; Start 07/02/17 at 09:00 Acetaminophen/ Hydrocodone Bitart (Lortab 5/325) 1 tab PRN Q6HRS PRN PO PAIN; Start 07/02/17 at 09:00 Metoprolol Succinate (Toprol Xl) 100 mg BID PO ; Start 07/02/17 at 09:00 Pantoprazole Sodium (Protonix) 40 mg BIDAC PO ; Start 07/02/17 at 09:00 Paroxetine HCl (Paxil) 40 mg DAILY PO ; Start 07/02/17 at 09:00 Tamsulosin HCl (Flomax) 0.4 mg QHS PO ; Start 07/02/17 at 21:00 Losartan Potassium (Cozaar) 100 mg DAILY PO ; Start 07/02/17 at 09:00 Non-Formulary Medication 20 mg DAILY PO ; Start 07/02/17 at 09:00; Status UNV Active Scripts Active Xanax (Alprazolam) 0.5 Mg Tablet 0.5 Mg PO TID PRN LAST DOSE: 02/23/16 BEDTIME NEXT DOSE: 02/24/16 BEDTIME Flomax (Tamsulosin Hcl) 0.4 Mg Cap.er.24h 0.4 Mg PO QHS Reported Metoprolol Succinate ( Xl ) (Metoprolol Succinate) 100 Mg Tab.er.24h 100 BID Pantoprazole Sodium 40 Mg Tablet.dr 40 BID Plavix (Clopidogrel Bisulfate) 75 Mg Tablet 75 DAILY Losartan Potassium 100 Mg Tablet 100 DAILY Furosemide 80 Mg Tablet 80 BID Hydralazine Hcl 50 Mg Tablet 50 TID Hydrocodone-Apap 5-325 (Hydrocodone Bit/Acetaminophen) 1 Each Tablet 1 Tab PO PRN Q6HRS PRN Nephro-Chilo Tablet (Folic Acid/Vitamin B Comp W-C) 0.8 Mg Tablet 1 Tab PO DAILY Paroxetine Hcl 20 Mg Tablet 40 Mg PO DAILY Tums (Calcium Carbonate) 200 Mg Tab.chew 800 Mg PO TIDAC Omeprazole Magnesium 20 Mg Capsule.dr 20 Mg PO DAILY Allergies Allergies: Coded Allergies: aspirin (Verified Allergy, Intermediate, 04/16/17) ROS Review of System GEN: no Fevers no Chills EYES: no Visual Complaints ENT: no EN Drainage no Hearing deficiets CVS: min Orthopnea no CP RESP: + SOB + FERNANDEZ GI: no Nausea no Vomiting : no Dysuria no Urgency HEME: no easy bruising no Palp Ly Nodes NEURO no Focal Weakness no Sz PSYCH: no Suicidal Ideation no Depression SKIN: no Rashes ENDO: no Polyuria or Polydipsia no Hot/Cold Intolerance MU SK: no Arthraigia no Myalgia Physical Exam Physical Exam General Appearance: Awake Alert Oriented x 3 In no Distress Eyes: VIsion Unchanged Conjunctiva Normal EN: No EN Drainage Mucous Memb. moist Neck: no JVD no JVP Supple no Thyromegaly CVS: S1 S2 + Murmur No Gallop No Rub no Edema Resp: no Rales no Rhonchi no Acc. Muscle use GI: BAS +ve NO Bruit Non Tender Non Distended : no CVA tenderness; no Suprapubic Tenderness SKIN: no Rashes Breast Exam deferred Mu.Sk: Adequate ROM no Muscle Atrophy Heme: Unable to palpate Obvious LAD no Splenomegaly NEURO: Good Strength and Tone Cranial Nerves II - XII grossly intact Psych: no Depressed no Active hallucination Vital Signs Vital Signs Date Time Temp Pulse Resp B/P (MAP) Pulse Ox O2 Delivery O2 Flow Rate FiO2 07/02/17 06:44 20 91 3.0 07/02/17 03:00 97.8 60 143/83 (103) Nasal Cannula 97.8 Assessment & Plan ESRD: Dialysis as below F 180 NR 3.5 Hrs 2 K 3.5 Ca 140 Na 40 HC03 Qb 350 + Qd 500+ Heparin 0 Units Uf to dry weight as tolerated May give 25-50 gms of 25% Albumin if needed to maintain Hemodynamic stability Treatment plan reviewed and 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 ^ Ignacio with HD ^ed K - due to dietary non-compliance Anemia: Epogen Transfuse with next HD as needed. HTN: Current BP meds reviewed. See orders for changes. Bone & Mineral: Follow phos and alter binder regimen as needed dietary non-compliance - pt has been educated on a renal diet on numerous occasions here and as OP but remains stubbornly unwilling to change his ways Discussed Plan of Care and prognosis etc. at length with pt - Compliance with diet, fluid and OP HD re-emphasized with pt Labs Labs Laboratory Tests Test 07/01/17 22:00 07/02/17 06:00 White Blood Count 9.2 x10^3/uL (4.0-11.0) 7.7 x10^3/uL (4.0-11.0) Red Blood Count 3.50 x10^6/uL (4.30-5.70) 3.18 x10^6/uL (4.30-5.70) Hemoglobin 10.6 g/dL (13.0-17.5) 9.8 g/dL (13.0-17.5) Hematocrit 31.2 % (39.0-53.0) 27.9 % (39.0-53.0) Mean Corpuscular Volume 89 fL (79-100) 88 fL (79-100) Mean Corpuscular Hemoglobin 30 pg (25-35) 31 pg (25-35) Mean Corpuscular Hemoglobin Concent 34 g/dL (31-37) 35 g/dL (31-37) Red Cell Distribution Width 14.5 % (11.5-14.5) 14.7 % (11.5-14.5) Platelet Count 209 x10^3/uL (140-400) 178 x10^3/uL (140-400) Neutrophils (%) (Auto) 78 % (31-73) 74 % (31-73) Lymphocytes (%) (Auto) 9 % (24-48) 13 % (24-48) Monocytes (%) (Auto) 10 % (0-9) 10 % (0-9) Eosinophils (%) (Auto) 3 % (0-3) 3 % (0-3) Basophils (%) (Auto) 1 % (0-3) 1 % (0-3) Neutrophils # (Auto) 7.1 x10^3uL (1.8-7.7) 5.7 x10^3uL (1.8-7.7) Lymphocytes # (Auto) 0.8 x10^3/uL (1.0-4.8) 1.0 x10^3/uL (1.0-4.8) Monocytes # (Auto) 0.9 x10^3/uL (0.0-1.1) 0.7 x10^3/uL (0.0-1.1) Eosinophils # (Auto) 0.2 x10^3/uL (0.0-0.7) 0.2 x10^3/uL (0.0-0.7) Basophils # (Auto) 0.1 x10^3/uL (0.0-0.2) 0.1 x10^3/uL (0.0-0.2) Prothrombin Time 11.8 SEC (11.7-14.0) Prothromb Time International Ratio 0.9 (0.8-1.1) Activated Partial Thromboplast Time 38 SEC (24-38) Sodium Level 132 mmol/L (136-145) 134 mmol/L (136-145) Potassium Level 5.2 mmol/L (3.5-5.1) 5.2 mmol/L (3.5-5.1) Chloride Level 93 mmol/L (98-107) 95 mmol/L (98-107) Carbon Dioxide Level 20 mmol/L (21-32) 22 mmol/L (21-32) Anion Gap 19 (6-14) 17 (6-14) Blood Urea Nitrogen 75 mg/dL (8-26) 81 mg/dL (8-26) Creatinine 13.3 mg/dL (0.7-1.3) 13.9 mg/dL (0.7-1.3) Estimated GFR (Cockcroft-Gault) 3.8 3.7 BUN/Creatinine Ratio 6 (6-20) Glucose Level 115 mg/dL (70-99) 83 mg/dL (70-99) Calcium Level 7.0 mg/dL (8.5-10.1) 6.5 mg/dL (8.5-10.1) Total Bilirubin 0.5 mg/dL (0.2-1.0) Aspartate Amino Transf (AST/SGOT) 25 U/L (15-37) Alanine Aminotransferase (ALT/SGPT) 12 U/L (16-63) Alkaline Phosphatase 99 U/L (46-116) Troponin I Quantitative 0.035 ng/mL (0.000-0.055) 0.029 ng/mL (0.000-0.055) BQ-Blu-R-Type Natriuretic Peptide > 69329 pg/mL (0-124) Total Protein 7.4 g/dL (6.4-8.2) Albumin 3.5 g/dL (3.4-5.0) Albumin/Globulin Ratio 0.9 (1.0-1.7) Lipase 512 U/L (73-393) Laboratory Tests Test 07/01/17 22:00 07/02/17 06:00 White Blood Count 9.2 x10^3/uL (4.0-11.0) 7.7 x10^3/uL (4.0-11.0) Red Blood Count 3.50 x10^6/uL (4.30-5.70) 3.18 x10^6/uL (4.30-5.70) Hemoglobin 10.6 g/dL (13.0-17.5) 9.8 g/dL (13.0-17.5) Hematocrit 31.2 % (39.0-53.0) 27.9 % (39.0-53.0) Mean Corpuscular Volume 89 fL (79-100) 88 fL (79-100) Mean Corpuscular Hemoglobin 30 pg (25-35) 31 pg (25-35) Mean Corpuscular Hemoglobin Concent 34 g/dL (31-37) 35 g/dL (31-37) Red Cell Distribution Width 14.5 % (11.5-14.5) 14.7 % (11.5-14.5) Platelet Count 209 x10^3/uL (140-400) 178 x10^3/uL (140-400) Neutrophils (%) (Auto) 78 % (31-73) 74 % (31-73) Lymphocytes (%) (Auto) 9 % (24-48) 13 % (24-48) Monocytes (%) (Auto) 10 % (0-9) 10 % (0-9) Eosinophils (%) (Auto) 3 % (0-3) 3 % (0-3) Basophils (%) (Auto) 1 % (0-3) 1 % (0-3) Neutrophils # (Auto) 7.1 x10^3uL (1.8-7.7) 5.7 x10^3uL (1.8-7.7) Lymphocytes # (Auto) 0.8 x10^3/uL (1.0-4.8) 1.0 x10^3/uL (1.0-4.8) Monocytes # (Auto) 0.9 x10^3/uL (0.0-1.1) 0.7 x10^3/uL (0.0-1.1) Eosinophils # (Auto) 0.2 x10^3/uL (0.0-0.7) 0.2 x10^3/uL (0.0-0.7) Basophils # (Auto) 0.1 x10^3/uL (0.0-0.2) 0.1 x10^3/uL (0.0-0.2) Prothrombin Time 11.8 SEC (11.7-14.0) Prothromb Time International Ratio 0.9 (0.8-1.1) Activated Partial Thromboplast Time 38 SEC (24-38) Sodium Level 132 mmol/L (136-145) 134 mmol/L (136-145) Potassium Level 5.2 mmol/L (3.5-5.1) 5.2 mmol/L (3.5-5.1) Chloride Level 93 mmol/L (98-107) 95 mmol/L (98-107) Carbon Dioxide Level 20 mmol/L (21-32) 22 mmol/L (21-32) Anion Gap 19 (6-14) 17 (6-14) Blood Urea Nitrogen 75 mg/dL (8-26) 81 mg/dL (8-26) Creatinine 13.3 mg/dL (0.7-1.3) 13.9 mg/dL (0.7-1.3) Estimated GFR (Cockcroft-Gault) 3.8 3.7 BUN/Creatinine Ratio 6 (6-20) Glucose Level 115 mg/dL (70-99) 83 mg/dL (70-99) Calcium Level 7.0 mg/dL (8.5-10.1) 6.5 mg/dL (8.5-10.1) Total Bilirubin 0.5 mg/dL (0.2-1.0) Aspartate Amino Transf (AST/SGOT) 25 U/L (15-37) Alanine Aminotransferase (ALT/SGPT) 12 U/L (16-63) Alkaline Phosphatase 99 U/L (46-116) Troponin I Quantitative 0.035 ng/mL (0.000-0.055) 0.029 ng/mL (0.000-0.055) DM-Zap-Y-Type Natriuretic Peptide > 01226 pg/mL (0-124) Total Protein 7.4 g/dL (6.4-8.2) Albumin 3.5 g/dL (3.4-5.0) Albumin/Globulin Ratio 0.9 (1.0-1.7) Lipase 512 U/L (73-393) Images Images 1. Stable borderline enlarged cardiomediastinal silhouette with new mild pulmonary vascular congestion, this may be seen in the setting of congestive heart failure. TING GARDUNO MD Jul 02, 2017 09:50
[2017-07-02] MEDS ORDERED: MAGNESIUM SULFATE 2GM 50 ML IV PRN (10:00)
[2017-07-02] MEDS: FOLIC/VIT B COMP W-C (RENAL) TABLET. PO SCH (10:14)
[2017-07-02] MEDS: FUROSEMIDE 80 MG TABLET. PO SCH ×2 (10:14→17:59)
[2017-07-02] MEDS: METOPROLOL SUCC 24HR ER 100 MG TAB.ER.24H. PO SCH ×2 (10:15→21:11)
[2017-07-02] MEDS: ALPRAZolam 0.5 MG TABLET PO PRN ×2 (10:17→23:29)
[2017-07-02] MEDS: CLOPIDOGREL BISULFATE 75 MG TABLET PO SCH (10:17)
[2017-07-02] MEDS: CALCIUM CARBONATE 500 MG TAB.CHEW PO SCH ×2 (10:17→16:30)
[2017-07-02] MEDS: LOSARTAN POTASSIUM 50 MG TABLET. PO SCH (10:17)
[2017-07-02] MEDS: PANTOPRAZOLE 40 MG TABLET.DR. PO SCH ×2 (10:18→17:59)
[2017-07-02] MEDS: PARoxetine 20 MG TABLET PO SCH (10:18)
--- NOTE | 2017-07-02 10:33 | PDOC2 ---
CONSULT Date of Consult Date of Consult DATE: 07/02/17 TIME: 10:26 Reason for Consult Reason for Consult: Chest pain and shortness of breath History of Present Illness Reason for Visit: Pt was scheduled for dialysis on Saturday but due to travel states that he missed it. On admission his potassium was 5.2 and calcium was 7. Pt started to have chest pain Saturday night accompanied by shortness of breath. Pt came to the ED directly. Past Medical History Cardiovascular: CAD, HTN, [place] Pulmonary: Other GI: Constipation, GERD, Other Heme/Onc: Anemia NOS Psych: Depression Renal/: Chronic renal failure, Other Endocrine: Diabetes, Hyperparathyroidism Past Surgical History Past Surgical History: Appendectomy, Cholecystectomy, Other Family History Family History: Cancer, Diabetes, Kidney Disease, Stroke Social History ALCOHOL: none Drugs: None Lives: with Family Domestic Violence: Neg Current Problem List Problem List Problems Medical Problems: (1) Accelerated hypertension Status: Acute (2) CAD (coronary artery disease) Status: Acute (3) Chest pain Status: Acute (4) End stage renal disease Status: Acute (5) Fluid overload Status: Acute (6) Pancreatitis Status: Acute Current Medications Current Medications Current Medications Ondansetron HCl (Zofran) 4 mg 1X ONCE IV Last administered on 07/01/17 22:36 ; Start 07/01/17 at 22:00; Stop 07/01/17 at 22:02; Status DC Nitroglycerin (Nitrostat) 0.4 mg PRN Q5MIN PRN SL CHEST PAIN Last administered on 07/01/17 22:36; Start 07/01/17 at 22:00 Ondansetron HCl (Zofran) 4 mg PRN Q8HRS PRN IV NAUSEA/VOMITING; Start 07/01/17 at 23:30; Stop 07/02/17 at 23:29 Morphine Sulfate 2 mg PRN Q2HR PRN IV PAIN Last administered on 07/02/17 06:14 ; Start 07/01/17 at 23:30; Stop 07/02/17 at 23:29 Acetaminophen (Tylenol) 650 mg PRN Q4HRS PRN PO FEVER; Start 07/01/17 at 23:30 ; Stop 07/02/17 at 23:29 Sodium Polystyrene Sulfonate (Kayexalate) 15 gm 1X ONCE PO ; Start 07/01/17 at 23:45; Stop 07/01/17 at 23:46; Status DC Lorazepam (Ativan) 1 mg PRN Q6HRS PRN PO ANXIETY / AGITATION Last administered on 07/02/17 00:05; Start 07/01/17 at 23:30 Alprazolam (Xanax) 0.5 mg TID PRN PO ANXIETY / AGITATION Last administered on 10:17; Start 07/02/17 at 09:00 Calcium Carbonate/ Glycine (Tums) 500 mg TIDAC PO Last administered on 10:17; Start 07/02/17 at 11:30 Clopidogrel Bisulfate (Plavix) 75 mg DAILYWBKFT PO Last administered on 10:17; Start 07/02/17 at 09:00 Vitamin B Complex/ Vitamin C (Frances-Chilo) 1 tab DAILY PO Last administered on 10:14; Start 07/02/17 at 09:00 Furosemide (Lasix) 80 mg BID92 PO Last administered on 07/02/17 10:14; Start 07/02/17 at 09:00 Hydralazine HCl (Apresoline) 50 mg TID PO Last administered on 07/02/17 10:16 ; Start 07/02/17 at 09:00 Acetaminophen/ Hydrocodone Bitart (Lortab 5/325) 1 tab PRN Q6HRS PRN PO PAIN; Start 07/02/17 at 09:00 Metoprolol Succinate (Toprol Xl) 100 mg BID PO Last administered on 07/02/17 10:15; Start 07/02/17 at 09:00 Pantoprazole Sodium (Protonix) 40 mg BIDAC PO Last administered on 07/02/17 10 :18; Start 07/02/17 at 09:00 Paroxetine HCl (Paxil) 40 mg DAILY PO Last administered on 07/02/17 10:18; Start 07/02/17 at 09:00 Tamsulosin HCl (Flomax) 0.4 mg QHS PO ; Start 07/02/17 at 21:00 Losartan Potassium (Cozaar) 100 mg DAILY PO Last administered on 07/02/17 10: 17; Start 07/02/17 at 09:00 Non-Formulary Medication 20 mg DAILY PO ; Start 07/02/17 at 09:00; Status UNV Magnesium Sulfate/ Dextrose 50 ml @ 25 mls/hr PRN DAILY PRN IV for Mag < 1.7 on am labs; Start 07/02/17 at 10:00 Darbepoetin Percy (Aranesp) 60 mcg WEEKLYHS SQ ; Start 07/02/17 at 21:00 Active Scripts Active Xanax (Alprazolam) 0.5 Mg Tablet 0.5 Mg PO TID PRN LAST DOSE: 02/23/16 BEDTIME NEXT DOSE: 02/24/16 BEDTIME Flomax (Tamsulosin Hcl) 0.4 Mg Cap.er.24h 0.4 Mg PO QHS Reported Metoprolol Succinate ( Xl ) (Metoprolol Succinate) 100 Mg Tab.er.24h 100 BID Pantoprazole Sodium 40 Mg Tablet.dr 40 BID Plavix (Clopidogrel Bisulfate) 75 Mg Tablet 75 DAILY Losartan Potassium 100 Mg Tablet 100 DAILY Furosemide 80 Mg Tablet 80 BID Hydralazine Hcl 50 Mg Tablet 50 TID Hydrocodone-Apap 5-325 (Hydrocodone Bit/Acetaminophen) 1 Each Tablet 1 Tab PO PRN Q6HRS PRN Nephro-Chilo Tablet (Folic Acid/Vitamin B Comp W-C) 0.8 Mg Tablet 1 Tab PO DAILY Paroxetine Hcl 20 Mg Tablet 40 Mg PO DAILY Tums (Calcium Carbonate) 200 Mg Tab.chew 800 Mg PO TIDAC Omeprazole Magnesium 20 Mg Capsule.dr 20 Mg PO DAILY Allergies Allergies: Coded Allergies: aspirin (Verified Allergy, Intermediate, 04/16/17) Physical Exam Physical Exam Gen: pt resting in bed. Pt is pleasant, cooperative and conversational. No acute distress or pain Neck: no JVD Card: no new heart sounds Resp: clear to auscultation Neuro: pt awake, alert and oriented Extremities: warm to touch. Vitals VITALS Vital Signs Date Time Temp Pulse Resp B/P (MAP) Pulse Ox O2 Delivery O2 Flow Rate FiO2 07/02/17 10:17 62 145/70 07/02/17 08:10 97.4 25 94 Nasal Cannula 8.0 97.4 Labs Labs Laboratory Tests Test 07/01/17 22:00 07/02/17 06:00 White Blood Count 9.2 x10^3/uL (4.0-11.0) 7.7 x10^3/uL (4.0-11.0) Red Blood Count 3.50 x10^6/uL (4.30-5.70) 3.18 x10^6/uL (4.30-5.70) Hemoglobin 10.6 g/dL (13.0-17.5) 9.8 g/dL (13.0-17.5) Hematocrit 31.2 % (39.0-53.0) 27.9 % (39.0-53.0) Mean Corpuscular Volume 89 fL (79-100) 88 fL (79-100) Mean Corpuscular Hemoglobin 30 pg (25-35) 31 pg (25-35) Mean Corpuscular Hemoglobin Concent 34 g/dL (31-37) 35 g/dL (31-37) Red Cell Distribution Width 14.5 % (11.5-14.5) 14.7 % (11.5-14.5) Platelet Count 209 x10^3/uL (140-400) 178 x10^3/uL (140-400) Neutrophils (%) (Auto) 78 % (31-73) 74 % (31-73) Lymphocytes (%) (Auto) 9 % (24-48) 13 % (24-48) Monocytes (%) (Auto) 10 % (0-9) 10 % (0-9) Eosinophils (%) (Auto) 3 % (0-3) 3 % (0-3) Basophils (%) (Auto) 1 % (0-3) 1 % (0-3) Neutrophils # (Auto) 7.1 x10^3uL (1.8-7.7) 5.7 x10^3uL (1.8-7.7) Lymphocytes # (Auto) 0.8 x10^3/uL (1.0-4.8) 1.0 x10^3/uL (1.0-4.8) Monocytes # (Auto) 0.9 x10^3/uL (0.0-1.1) 0.7 x10^3/uL (0.0-1.1) Eosinophils # (Auto) 0.2 x10^3/uL (0.0-0.7) 0.2 x10^3/uL (0.0-0.7) Basophils # (Auto) 0.1 x10^3/uL (0.0-0.2) 0.1 x10^3/uL (0.0-0.2) Prothrombin Time 11.8 SEC (11.7-14.0) Prothromb Time International Ratio 0.9 (0.8-1.1) Activated Partial Thromboplast Time 38 SEC (24-38) Sodium Level 132 mmol/L (136-145) 134 mmol/L (136-145) Potassium Level 5.2 mmol/L (3.5-5.1) 5.2 mmol/L (3.5-5.1) Chloride Level 93 mmol/L (98-107) 95 mmol/L (98-107) Carbon Dioxide Level 20 mmol/L (21-32) 22 mmol/L (21-32) Anion Gap 19 (6-14) 17 (6-14) Blood Urea Nitrogen 75 mg/dL (8-26) 81 mg/dL (8-26) Creatinine 13.3 mg/dL (0.7-1.3) 13.9 mg/dL (0.7-1.3) Estimated GFR (Cockcroft-Gault) 3.8 3.7 BUN/Creatinine Ratio 6 (6-20) Glucose Level 115 mg/dL (70-99) 83 mg/dL (70-99) Calcium Level 7.0 mg/dL (8.5-10.1) 6.5 mg/dL (8.5-10.1) Total Bilirubin 0.5 mg/dL (0.2-1.0) Aspartate Amino Transf (AST/SGOT) 25 U/L (15-37) Alanine Aminotransferase (ALT/SGPT) 12 U/L (16-63) Alkaline Phosphatase 99 U/L (46-116) Troponin I Quantitative 0.035 ng/mL (0.000-0.055) 0.029 ng/mL (0.000-0.055) VT-Ctx-F-Type Natriuretic Peptide > 24626 pg/mL (0-124) Total Protein 7.4 g/dL (6.4-8.2) Albumin 3.5 g/dL (3.4-5.0) Albumin/Globulin Ratio 0.9 (1.0-1.7) Lipase 512 U/L (73-393) Laboratory Tests Test 07/01/17 22:00 07/02/17 06:00 White Blood Count 9.2 x10^3/uL (4.0-11.0) 7.7 x10^3/uL (4.0-11.0) Red Blood Count 3.50 x10^6/uL (4.30-5.70) 3.18 x10^6/uL (4.30-5.70) Hemoglobin 10.6 g/dL (13.0-17.5) 9.8 g/dL (13.0-17.5) Hematocrit 31.2 % (39.0-53.0) 27.9 % (39.0-53.0) Mean Corpuscular Volume 89 fL (79-100) 88 fL (79-100) Mean Corpuscular Hemoglobin 30 pg (25-35) 31 pg (25-35) Mean Corpuscular Hemoglobin Concent 34 g/dL (31-37) 35 g/dL (31-37) Red Cell Distribution Width 14.5 % (11.5-14.5) 14.7 % (11.5-14.5) Platelet Count 209 x10^3/uL (140-400) 178 x10^3/uL (140-400) Neutrophils (%) (Auto) 78 % (31-73) 74 % (31-73) Lymphocytes (%) (Auto) 9 % (24-48) 13 % (24-48) Monocytes (%) (Auto) 10 % (0-9) 10 % (0-9) Eosinophils (%) (Auto) 3 % (0-3) 3 % (0-3) Basophils (%) (Auto) 1 % (0-3) 1 % (0-3) Neutrophils # (Auto) 7.1 x10^3uL (1.8-7.7) 5.7 x10^3uL (1.8-7.7) Lymphocytes # (Auto) 0.8 x10^3/uL (1.0-4.8) 1.0 x10^3/uL (1.0-4.8) Monocytes # (Auto) 0.9 x10^3/uL (0.0-1.1) 0.7 x10^3/uL (0.0-1.1) Eosinophils # (Auto) 0.2 x10^3/uL (0.0-0.7) 0.2 x10^3/uL (0.0-0.7) Basophils # (Auto) 0.1 x10^3/uL (0.0-0.2) 0.1 x10^3/uL (0.0-0.2) Prothrombin Time 11.8 SEC (11.7-14.0) Prothromb Time International Ratio 0.9 (0.8-1.1) Activated Partial Thromboplast Time 38 SEC (24-38) Sodium Level 132 mmol/L (136-145) 134 mmol/L (136-145) Potassium Level 5.2 mmol/L (3.5-5.1) 5.2 mmol/L (3.5-5.1) Chloride Level 93 mmol/L (98-107) 95 mmol/L (98-107) Carbon Dioxide Level 20 mmol/L (21-32) 22 mmol/L (21-32) Anion Gap 19 (6-14) 17 (6-14) Blood Urea Nitrogen 75 mg/dL (8-26) 81 mg/dL (8-26) Creatinine 13.3 mg/dL (0.7-1.3) 13.9 mg/dL (0.7-1.3) Estimated GFR (Cockcroft-Gault) 3.8 3.7 BUN/Creatinine Ratio 6 (6-20) Glucose Level 115 mg/dL (70-99) 83 mg/dL (70-99) Calcium Level 7.0 mg/dL (8.5-10.1) 6.5 mg/dL (8.5-10.1) Total Bilirubin 0.5 mg/dL (0.2-1.0) Aspartate Amino Transf (AST/SGOT) 25 U/L (15-37) Alanine Aminotransferase (ALT/SGPT) 12 U/L (16-63) Alkaline Phosphatase 99 U/L (46-116) Troponin I Quantitative 0.035 ng/mL (0.000-0.055) 0.029 ng/mL (0.000-0.055) MH-Llw-I-Type Natriuretic Peptide > 66666 pg/mL (0-124) Total Protein 7.4 g/dL (6.4-8.2) Albumin 3.5 g/dL (3.4-5.0) Albumin/Globulin Ratio 0.9 (1.0-1.7) Lipase 512 U/L (73-393) Assessment/Plan Assessment/Plan Pt's heart condition is secondary to HTN and his failing kidneys. Pt in need of a kidney transplant. He also has significant PVD and is post multiple stentings. If he needs something to be done for the legs I would be inclined to the direction of surgery with bypass. Stents fail with him. Agree with present plan. Thank you for asking me to participate in the care of this pt. ESTEFANÍA MANZO MD Jul 02, 2017 10:33
--- NOTE | 2017-07-02 10:37 | EKG ---
[facility] [address] [place] [address] Test Date: 2017-07-01 Test Time: 21:37:28 Pat Name: IVORY OCONNOR Department: Room: 209 1 Gender: M Service Porter: : 1955 Requested By: SPIKE DURHAM Order Number: [id number] Reading MD: Leyla Jackson Measurements Intervals [place] Rate: 64 P: [place]: QRS: 62 QRSD: 102 T: -147 QT: 510 QTc: 531 Interpretive Statements SINUS RHYTHM QRS(T) CONTOUR ABNORMALITY CANNOT RULE OUT ANTEROSEPTAL MYOCARDIAL DAMAGE T ABNORMALITY IN ANTEROLATERAL LEADS INFEROLATERAL LEADS PROLONGED QT Electronically Signed On 07-03-2017 20:28:29 CDT by Leyla Jackson
--- NOTE | 2017-07-02 12:03 | CONS ---
DATE OF CONSULTATION: PRIMARY PHYSICIAN: Dr. Giles. REASON FOR CONSULTATION: Shortness of breath. HISTORY OF PRESENT ILLNESS: The patient is a 61-year-old gentleman who I follow for his ESRD needs. He is known to be significantly noncompliant with his diet and fluid intake. He does not have a primary care physician at this time since Dr. Le left the practice. He just returned from [place] last Saturday. He claims he was set up for dialysis at his usual dialysis unit as an outpatient. His phone did not have battery and there was some misunderstanding in that time, he went there at about 11:30 instead of 9:30. He only got 1 hour of dialysis. On Saturday, he began to feel increasingly short of breath, so he represented to the ER. In the ER, he is noted to have mild CHF. He is minimally short of breath currently. Dialysis has been arranged for the patient. Potassium is also noted to be mildly elevated. For rest of details, see electronic records. TING GARDUNO MD DR: MACARIO/alyson JOB#: [id number] / [id number]
[2017-07-02] MEDS ORDERED: IV NORMAL SALINE 1000ML BAG 1,000 ML IV PRN (13:04)
[2017-07-02] MEDS ORDERED: ALBUMIN HUMAN 25% 200 ML IV PRN (13:15)
[2017-07-02] MEDS ORDERED: DIALYSIS PATIENT. MC PRN (13:15)
[2017-07-02] MEDS ORDERED: diphenhydrAMINE 50 MG/ML VIAL IV PRN (13:15)
[2017-07-02] MEDS ORDERED: ACETAMINOPHEN 500 MG TABLET PO PRN (13:15)
--- NOTE | 2017-07-02 14:51 | PDOC2 ---
CONSULT Date of Consult Date of Consult DATE: 07/02/17 TIME: 14:42 Reason for Consult Reason for Consult: Right lower extremity short distance claudication History of Present Illness Reason for Visit: This is a pleasant 61-year-old male with end-stage renal disease on hemodialysis who has known peripheral vascular disease. He had had previous superficial femoral artery stenting by interventional radiology and these have since occluded on the right. Patient describes short distance calf claudication at approximately one half block. He denies any rest pain symptoms and denies any ulceration or gangrenous changes. Past Medical History Cardiovascular: CAD, HTN, NV Pulmonary: Other GI: Constipation, GERD, Other Heme/Onc: Anemia NOS Psych: Depression Renal/: Chronic renal failure, Other Endocrine: Diabetes, Hyperparathyroidism Past Surgical History Past Surgical History: Appendectomy, Cholecystectomy, Other (bilateral lower extremity superficial femoral artery stenting, left upper extremity AV fistula) Family History Family History: Cancer, Diabetes, Kidney Disease, Stroke Social History ALCOHOL: none Drugs: None Lives: with Family Domestic Violence: Neg Current Problem List Problem List Problems Medical Problems: (1) Accelerated hypertension Status: Acute (2) CAD (coronary artery disease) Status: Acute (3) Chest pain Status: Acute (4) End stage renal disease Status: Acute (5) Fluid overload Status: Acute (6) Pancreatitis Status: Acute Current Medications Current Medications Current Medications Ondansetron HCl (Zofran) 4 mg 1X ONCE IV Last administered on 07/01/17 22:36 ; Start 07/01/17 at 22:00; Stop 07/01/17 at 22:02; Status DC Nitroglycerin (Nitrostat) 0.4 mg PRN Q5MIN PRN SL CHEST PAIN Last administered on 07/01/17 22:36; Start 07/01/17 at 22:00 Ondansetron HCl (Zofran) 4 mg PRN Q8HRS PRN IV NAUSEA/VOMITING; Start 07/01/17 at 23:30; Stop 07/02/17 at 23:29 Morphine Sulfate 2 mg PRN Q2HR PRN IV PAIN Last administered on 07/02/17 06:14 ; Start 07/01/17 at 23:30; Stop 07/02/17 at 23:29 Acetaminophen (Tylenol) 650 mg PRN Q4HRS PRN PO FEVER; Start 07/01/17 at 23:30 ; Stop 07/02/17 at 23:29 Sodium Polystyrene Sulfonate (Kayexalate) 15 gm 1X ONCE PO ; Start 07/01/17 at 23:45; Stop 07/01/17 at 23:46; Status DC Lorazepam (Ativan) 1 mg PRN Q6HRS PRN PO ANXIETY / AGITATION Last administered on 07/02/17 00:05; Start 07/01/17 at 23:30 Alprazolam (Xanax) 0.5 mg TID PRN PO ANXIETY / AGITATION Last administered on 10:17; Start 07/02/17 at 09:00 Calcium Carbonate/ Glycine (Tums) 500 mg TIDAC PO Last administered on 10:17; Start 07/02/17 at 11:30 Clopidogrel Bisulfate (Plavix) 75 mg DAILYWBKFT PO Last administered on 10:17; Start 07/02/17 at 09:00 Vitamin B Complex/ Vitamin C (Frances-Chilo) 1 tab DAILY PO Last administered on 10:14; Start 07/02/17 at 09:00 Furosemide (Lasix) 80 mg BID92 PO Last administered on 07/02/17 10:14; Start 07/02/17 at 09:00 Hydralazine HCl (Apresoline) 50 mg TID PO Last administered on 07/02/17 10:16 ; Start 07/02/17 at 09:00 Acetaminophen/ Hydrocodone Bitart (Lortab 5/325) 1 tab PRN Q6HRS PRN PO PAIN; Start 07/02/17 at 09:00 Metoprolol Succinate (Toprol Xl) 100 mg BID PO Last administered on 07/02/17 10:15; Start 07/02/17 at 09:00 Pantoprazole Sodium (Protonix) 40 mg BIDAC PO Last administered on 07/02/17 10 :18; Start 07/02/17 at 09:00 Paroxetine HCl (Paxil) 40 mg DAILY PO Last administered on 07/02/17 10:18; Start 07/02/17 at 09:00 Tamsulosin HCl (Flomax) 0.4 mg QHS PO ; Start 07/02/17 at 21:00 Losartan Potassium (Cozaar) 100 mg DAILY PO Last administered on 07/02/17t 10: 17; Start 07/02/17 at 09:00 Non-Formulary Medication 20 mg DAILY PO ; Start 07/02/17 at 09:00; Status UNV Magnesium Sulfate/ Dextrose 50 ml @ 25 mls/hr PRN DAILY PRN IV for Mag < 1.7 on am labs; Start 07/02/17 at 10:00 Darbepoetin Percy (Aranesp) 60 mcg WEEKLYHS SQ ; Start 07/02/17 at 21:00 Sodium Chloride 1,000 ml @ 1,000 mls/hr Q1H PRN IV hypotension; Start 07/02/17 at 13:04; Stop 07/02/17 at 19:03 Albumin Human 200 ml @ 200 mls/hr 1X PRN PRN IV Hypotension; Start 07/02/17 at 13:15; Stop 07/02/17 at 19:14 Acetaminophen (Tylenol) 500 mg 1X PRN PRN PO MILD PAIN / TEMP; Start 07/02/17 at 13:15; Stop 07/03/17 at 13:14 Diphenhydramine HCl (Benadryl) 25 mg 1X PRN PRN IV ITCHING Last administered on 07/02/17t 13:25; Start 07/02/17 at 13:15; Stop 07/03/17 at 13:14 Info (PHARMACY MONITORING -- do not chart) 1 each PRN DAILY PRN MC SEE COMMENTS ; Start 07/02/17 at 13:15 Active Scripts Active Xanax (Alprazolam) 0.5 Mg Tablet 0.5 Mg PO TID PRN LAST DOSE: 02/23/16 BEDTIME NEXT DOSE: 02/24/16 BEDTIME Flomax (Tamsulosin Hcl) 0.4 Mg Cap.er.24h 0.4 Mg PO QHS Reported Metoprolol Succinate ( Xl ) (Metoprolol Succinate) 100 Mg Tab.er.24h 100 BID Pantoprazole Sodium 40 Mg Tablet.dr 40 BID Plavix (Clopidogrel Bisulfate) 75 Mg Tablet 75 DAILY Losartan Potassium 100 Mg Tablet 100 DAILY Furosemide 80 Mg Tablet 80 BID Hydralazine Hcl 50 Mg Tablet 50 TID Hydrocodone-Apap 5-325 (Hydrocodone Bit/Acetaminophen) 1 Each Tablet 1 Tab PO PRN Q6HRS PRN Nephro-Chilo Tablet (Folic Acid/Vitamin B Comp W-C) 0.8 Mg Tablet 1 Tab PO DAILY Paroxetine Hcl 20 Mg Tablet 40 Mg PO DAILY Tums (Calcium Carbonate) 200 Mg Tab.chew 800 Mg PO TIDAC Omeprazole Magnesium 20 Mg Capsule.dr 20 Mg PO DAILY Allergies Allergies: Coded Allergies: aspirin (Verified Allergy, Intermediate, 04/16/17) ROS Musculoskeletal: Yes Pain In: (right calf with ambulation) Physical Exam General: Alert, Oriented X3, Cooperative, No acute distress HEENT: Atraumatic, PERRLA, EOMI Lungs: Clear to auscultation, Normal air movement Heart: Regular rate, Normal S1, Normal S2, No murmurs Abdomen: Normal bowel sounds, Soft, No tenderness Extremities: No clubbing, No cyanosis, No edema, Other (he has palpable femoral pulses bilaterally, dorsalis pedis and posterior tibial Doppler signals bilaterally) Skin: No rashes, No breakdown, No significant lesion Neuro: Strength at 5/5 X4 ext, Normal tone, Sensation intact Psych/Mental Status: Mental status NL, Mood NL MUSCULOSKELETAL: No joint tenderness, No deformity, No muscular tenderness noted, Full range of motion without pain Vitals VITALS Vital Signs Date Time Temp Pulse Resp B/P (MAP) Pulse Ox O2 Delivery O2 Flow Rate FiO2 07/02/17 11:00 97.4 61 20 136/67 (90) 92 Nasal Cannula 5.0 97.4 Labs Labs Laboratory Tests Test 07/01/17 22:00 07/02/17 00:01 07/02/17 06:00 07/02/17 13:00 White Blood Count 9.2 x10^3/uL (4.0-11.0) 7.7 x10^3/uL (4.0-11.0) Red Blood Count 3.50 x10^6/uL (4.30-5.70) 3.18 x10^6/uL (4.30-5.70) Hemoglobin 10.6 g/dL (13.0-17.5) 9.8 g/dL (13.0-17.5) Hematocrit 31.2 % (39.0-53.0) 27.9 % (39.0-53.0) Mean Corpuscular Volume 89 fL (79-100) 88 fL (79-100) Mean Corpuscular Hemoglobin 30 pg (25-35) 31 pg (25-35) Mean Corpuscular Hemoglobin Concent 34 g/dL (31-37) 35 g/dL (31-37) Red Cell Distribution Width 14.5 % (11.5-14.5) 14.7 % (11.5-14.5) Platelet Count 209 x10^3/uL (140-400) 178 x10^3/uL (140-400) Neutrophils (%) (Auto) 78 % (31-73) 74 % (31-73) Lymphocytes (%) (Auto) 9 % (24-48) 13 % (24-48) Monocytes (%) (Auto) 10 % (0-9) 10 % (0-9) Eosinophils (%) (Auto) 3 % (0-3) 3 % (0-3) Basophils (%) (Auto) 1 % (0-3) 1 % (0-3) Neutrophils # (Auto) 7.1 x10^3uL (1.8-7.7) 5.7 x10^3uL (1.8-7.7) Lymphocytes # (Auto) 0.8 x10^3/uL (1.0-4.8) 1.0 x10^3/uL (1.0-4.8) Monocytes # (Auto) 0.9 x10^3/uL (0.0-1.1) 0.7 x10^3/uL (0.0-1.1) Eosinophils # (Auto) 0.2 x10^3/uL (0.0-0.7) 0.2 x10^3/uL (0.0-0.7) Basophils # (Auto) 0.1 x10^3/uL (0.0-0.2) 0.1 x10^3/uL (0.0-0.2) Prothrombin Time 11.8 SEC (11.7-14.0) Prothromb Time International Ratio 0.9 (0.8-1.1) Activated Partial Thromboplast Time 38 SEC (24-38) Sodium Level 132 mmol/L (136-145) 134 mmol/L (136-145) Potassium Level 5.2 mmol/L (3.5-5.1) 5.2 mmol/L (3.5-5.1) Chloride Level 93 mmol/L (98-107) 95 mmol/L (98-107) Carbon Dioxide Level 20 mmol/L (21-32) 22 mmol/L (21-32) Anion Gap 19 (6-14) 17 (6-14) Blood Urea Nitrogen 75 mg/dL (8-26) 81 mg/dL (8-26) Creatinine 13.3 mg/dL (0.7-1.3) 13.9 mg/dL (0.7-1.3) Estimated GFR (Cockcroft-Gault) 3.8 3.7 BUN/Creatinine Ratio 6 (6-20) Glucose Level 115 mg/dL (70-99) 83 mg/dL (70-99) Calcium Level 7.0 mg/dL (8.5-10.1) 6.5 mg/dL (8.5-10.1) Total Bilirubin 0.5 mg/dL (0.2-1.0) Aspartate Amino Transf (AST/SGOT) 25 U/L (15-37) Alanine Aminotransferase (ALT/SGPT) 12 U/L (16-63) Alkaline Phosphatase 99 U/L (46-116) Troponin I Quantitative 0.035 ng/mL (0.000-0.055) 0.029 ng/mL (0.000-0.055) 0.024 ng/mL (0.000-0.055) ES-Cxs-K-Type Natriuretic Peptide > 80217 pg/mL (0-124) Total Protein 7.4 g/dL (6.4-8.2) Albumin 3.5 g/dL (3.4-5.0) Albumin/Globulin Ratio 0.9 (1.0-1.7) Lipase 512 U/L (73-393) Nasal Screen MRSA (PCR) Negative (Negative) Phosphorus Level 9.2 mg/dL (2.6-4.7) Laboratory Tests Test 07/01/17 22:00 07/02/17 00:01 07/02/17 06:00 07/02/17 13:00 White Blood Count 9.2 x10^3/uL (4.0-11.0) 7.7 x10^3/uL (4.0-11.0) Red Blood Count 3.50 x10^6/uL (4.30-5.70) 3.18 x10^6/uL (4.30-5.70) Hemoglobin 10.6 g/dL (13.0-17.5) 9.8 g/dL (13.0-17.5) Hematocrit 31.2 % (39.0-53.0) 27.9 % (39.0-53.0) Mean Corpuscular Volume 89 fL (79-100) 88 fL (79-100) Mean Corpuscular Hemoglobin 30 pg (25-35) 31 pg (25-35) Mean Corpuscular Hemoglobin Concent 34 g/dL (31-37) 35 g/dL (31-37) Red Cell Distribution Width 14.5 % (11.5-14.5) 14.7 % (11.5-14.5) Platelet Count 209 x10^3/uL (140-400) 178 x10^3/uL (140-400) Neutrophils (%) (Auto) 78 % (31-73) 74 % (31-73) Lymphocytes (%) (Auto) 9 % (24-48) 13 % (24-48) Monocytes (%) (Auto) 10 % (0-9) 10 % (0-9) Eosinophils (%) (Auto) 3 % (0-3) 3 % (0-3) Basophils (%) (Auto) 1 % (0-3) 1 % (0-3) Neutrophils # (Auto) 7.1 x10^3uL (1.8-7.7) 5.7 x10^3uL (1.8-7.7) Lymphocytes # (Auto) 0.8 x10^3/uL (1.0-4.8) 1.0 x10^3/uL (1.0-4.8) Monocytes # (Auto) 0.9 x10^3/uL (0.0-1.1) 0.7 x10^3/uL (0.0-1.1) Eosinophils # (Auto) 0.2 x10^3/uL (0.0-0.7) 0.2 x10^3/uL (0.0-0.7) Basophils # (Auto) 0.1 x10^3/uL (0.0-0.2) 0.1 x10^3/uL (0.0-0.2) Prothrombin Time 11.8 SEC (11.7-14.0) Prothromb Time International Ratio 0.9 (0.8-1.1) Activated Partial Thromboplast Time 38 SEC (24-38) Sodium Level 132 mmol/L (136-145) 134 mmol/L (136-145) Potassium Level 5.2 mmol/L (3.5-5.1) 5.2 mmol/L (3.5-5.1) Chloride Level 93 mmol/L (98-107) 95 mmol/L (98-107) Carbon Dioxide Level 20 mmol/L (21-32) 22 mmol/L (21-32) Anion Gap 19 (6-14) 17 (6-14) Blood Urea Nitrogen 75 mg/dL (8-26) 81 mg/dL (8-26) Creatinine 13.3 mg/dL (0.7-1.3) 13.9 mg/dL (0.7-1.3) Estimated GFR (Cockcroft-Gault) 3.8 3.7 BUN/Creatinine Ratio 6 (6-20) Glucose Level 115 mg/dL (70-99) 83 mg/dL (70-99) Calcium Level 7.0 mg/dL (8.5-10.1) 6.5 mg/dL (8.5-10.1) Total Bilirubin 0.5 mg/dL (0.2-1.0) Aspartate Amino Transf (AST/SGOT) 25 U/L (15-37) Alanine Aminotransferase (ALT/SGPT) 12 U/L (16-63) Alkaline Phosphatase 99 U/L (46-116) Troponin I Quantitative 0.035 ng/mL (0.000-0.055) 0.029 ng/mL (0.000-0.055) 0.024 ng/mL (0.000-0.055) KI-Yup-A-Type Natriuretic Peptide > 84004 pg/mL (0-124) Total Protein 7.4 g/dL (6.4-8.2) Albumin 3.5 g/dL (3.4-5.0) Albumin/Globulin Ratio 0.9 (1.0-1.7) Lipase 512 U/L (73-393) Nasal Screen MRSA (PCR) Negative (Negative) Phosphorus Level 9.2 mg/dL (2.6-4.7) Assessment/Plan Assessment/Plan Right lower extremity calf claudication--I did review the patient's CT angiogram study from April 18 which does reveal occlusion of the right superficial femoral artery. The patient does have evidence of tibial vessel occlusive disease as well, but this is not very well imaged on the CT angiogram. The patient has lifestyle limiting claudication of the right lower extremity. I will ask interventional radiology to perform a diagnostic angiogram of the right lower extremity to get a better idea of the patient's outflow and runoff vessels. I will ensure that the patient is on 81 mg aspirin and Plavix. In addition the patient should be on a statin agent given his risk factors. I will review these findings and make appropriate recommendations based on the above information. I will discuss the patient with Dr. Muir who knows the patient well. End-stage renal disease on hemodialysis--he will continue his current dialysis treatments through his left upper extremity AV fistula. Eleno De Leon DO, FACS, RPVI [facility] ELENO DE LEON DO Jul 02, 2017 14:51
[2017-07-02] MEDS ORDERED: DARBEPOETIN ALFA 60 MCG/0.3 ML DISP.SYRIN. SQ SCH (21:00)
[2017-07-02] MEDS: TAMSULOSIN 0.4 MG CAP.ER.24H. PO SCH (21:10)
[2017-07-03] VITALS (11 sets, daily range): BP systolic 123–160; BP diastolic 65–82
[2017-07-03 05:44] LABS: ALBUMIN 3.2 g/dL (3.4-5.0); CREATININE 8.4 mg/dL (0.7-1.3); GFR 6.5; MAGNESIUM 2.2 mg/dL (1.8-2.4); PHOSPHORUS 6.2 mg/dL (2.6-4.7); POTASSIUM 4.3 mmol/L (3.5-5.1)
[2017-07-03 05:48] LABS: CALCIUM 8.6 mg/dL (8.5-10.1)
[2017-07-03] MEDS: CALCIUM CARBONATE 500 MG TAB.CHEW PO SCH ×3 (07:30→17:40)
[2017-07-03] MEDS: CLOPIDOGREL BISULFATE 75 MG TABLET PO SCH (08:00)
[2017-07-03] MEDS: PANTOPRAZOLE 40 MG TABLET.DR. PO SCH ×2 (08:39→17:40)
[2017-07-03] MEDS: ALPRAZolam 0.5 MG TABLET PO PRN ×3 (08:40→22:56)
[2017-07-03] MEDS: LOSARTAN POTASSIUM 50 MG TABLET. PO SCH (08:40)
[2017-07-03] MEDS: FOLIC/VIT B COMP W-C (RENAL) TABLET. PO SCH (08:41)
[2017-07-03] MEDS: FUROSEMIDE 80 MG TABLET. PO SCH ×2 (09:00→14:44)
--- NOTE | 2017-07-03 09:03 | PDOC ---
PROGRESS NOTES Subjective Subjective Pt having difficult time breathing last night and was put on oxygen. Pt denies chest pain. No other complaints. Objective Objective Gen: pt resting comfortably in bed. Pt is pleasant, cooperative and conversational. No acute distress or pain. Card: no new heart sounds. Resp: CTAB no rales rhonchi or wheezes Extremities: no edema. Neuro: awake, alert and oriented. Vital Signs Date Time Temp Pulse Resp B/P (MAP) Pulse Ox O2 Delivery O2 Flow Rate FiO2 07/03/17 08:40 64 146/65 07/03/17 07:15 98.1 18 97 Nasal Cannula 5.0 98.1 Intake and Output 07/03/17 07:00 Intake Total 620 ml Output Total 0 ml Balance 620 ml Intake Oral 620 ml Output Urine Total 0 ml Assessment Assessment Problems Medical Problems: (1) Accelerated hypertension Status: Acute (2) CAD (coronary artery disease) Status: Acute (3) Chest pain Status: Acute (4) End stage renal disease Status: Acute (5) Fluid overload Status: Acute (6) Pancreatitis Status: Acute Pt is scheduled to have an arteriogram on his legs today. Pt is in the process of trying to get a kidney transplant and due to his previous hx of numerous stents without resolution of claudication I recommend that if any intervention is to be done that it should be a bypass. Pt is stable cardiac amado. I agree with the current treatment plan. Comment Review of Relevant I have reviewed the following items dionte (where applicable) has been applied. Labs Laboratory Tests Test 07/01/17 22:00 07/02/17 00:01 07/02/17 06:00 07/02/17 13:00 White Blood Count 9.2 x10^3/uL (4.0-11.0) 7.7 x10^3/uL (4.0-11.0) Red Blood Count 3.50 x10^6/uL (4.30-5.70) 3.18 x10^6/uL (4.30-5.70) Hemoglobin 10.6 g/dL (13.0-17.5) 9.8 g/dL (13.0-17.5) Hematocrit 31.2 % (39.0-53.0) 27.9 % (39.0-53.0) Mean Corpuscular Volume 89 fL (79-100) 88 fL (79-100) Mean Corpuscular Hemoglobin 30 pg (25-35) 31 pg (25-35) Mean Corpuscular Hemoglobin Concent 34 g/dL (31-37) 35 g/dL (31-37) Red Cell Distribution Width 14.5 % (11.5-14.5) 14.7 % (11.5-14.5) Platelet Count 209 x10^3/uL (140-400) 178 x10^3/uL (140-400) Neutrophils (%) (Auto) 78 % (31-73) 74 % (31-73) Lymphocytes (%) (Auto) 9 % (24-48) 13 % (24-48) Monocytes (%) (Auto) 10 % (0-9) 10 % (0-9) Eosinophils (%) (Auto) 3 % (0-3) 3 % (0-3) Basophils (%) (Auto) 1 % (0-3) 1 % (0-3) Neutrophils # (Auto) 7.1 x10^3uL (1.8-7.7) 5.7 x10^3uL (1.8-7.7) Lymphocytes # (Auto) 0.8 x10^3/uL (1.0-4.8) 1.0 x10^3/uL (1.0-4.8) Monocytes # (Auto) 0.9 x10^3/uL (0.0-1.1) 0.7 x10^3/uL (0.0-1.1) Eosinophils # (Auto) 0.2 x10^3/uL (0.0-0.7) 0.2 x10^3/uL (0.0-0.7) Basophils # (Auto) 0.1 x10^3/uL (0.0-0.2) 0.1 x10^3/uL (0.0-0.2) Prothrombin Time 11.8 SEC (11.7-14.0) Prothromb Time International Ratio 0.9 (0.8-1.1) Activated Partial Thromboplast Time 38 SEC (24-38) Sodium Level 132 mmol/L (136-145) 134 mmol/L (136-145) Potassium Level 5.2 mmol/L (3.5-5.1) 5.2 mmol/L (3.5-5.1) Chloride Level 93 mmol/L (98-107) 95 mmol/L (98-107) Carbon Dioxide Level 20 mmol/L (21-32) 22 mmol/L (21-32) Anion Gap 19 (6-14) 17 (6-14) Blood Urea Nitrogen 75 mg/dL (8-26) 81 mg/dL (8-26) Creatinine 13.3 mg/dL (0.7-1.3) 13.9 mg/dL (0.7-1.3) Estimated GFR (Cockcroft-Gault) 3.8 3.7 BUN/Creatinine Ratio 6 (6-20) Glucose Level 115 mg/dL (70-99) 83 mg/dL (70-99) Calcium Level 7.0 mg/dL (8.5-10.1) 6.5 mg/dL (8.5-10.1) Total Bilirubin 0.5 mg/dL (0.2-1.0) Aspartate Amino Transf (AST/SGOT) 25 U/L (15-37) Alanine Aminotransferase (ALT/SGPT) 12 U/L (16-63) Alkaline Phosphatase 99 U/L (46-116) Troponin I Quantitative 0.035 ng/mL (0.000-0.055) 0.029 ng/mL (0.000-0.055) 0.024 ng/mL (0.000-0.055) AJ-Uci-K-Type Natriuretic Peptide > 12534 pg/mL (0-124) Total Protein 7.4 g/dL (6.4-8.2) Albumin 3.5 g/dL (3.4-5.0) Albumin/Globulin Ratio 0.9 (1.0-1.7) Lipase 512 U/L (73-393) Nasal Screen MRSA (PCR) Negative (Negative) Phosphorus Level 9.2 mg/dL (2.6-4.7) Test 07/03/17 05:00 Hemoglobin 9.4 g/dL (13.0-17.5) Sodium Level 138 mmol/L (136-145) Potassium Level 4.3 mmol/L (3.5-5.1) Chloride Level 98 mmol/L (98-107) Carbon Dioxide Level 31 mmol/L (21-32) Anion Gap 9 (6-14) Blood Urea Nitrogen 38 mg/dL (8-26) Creatinine 8.4 mg/dL (0.7-1.3) Estimated GFR (Cockcroft-Gault) 6.5 Glucose Level 95 mg/dL (70-99) Calcium Level 8.6 mg/dL (8.5-10.1) Phosphorus Level 6.2 mg/dL (2.6-4.7) Magnesium Level 2.2 mg/dL (1.8-2.4) Albumin 3.2 g/dL (3.4-5.0) Laboratory Tests Test 07/02/17 13:00 07/03/17 05:00 Troponin I Quantitative 0.024 ng/mL (0.000-0.055) Hemoglobin 9.4 g/dL (13.0-17.5) Sodium Level 138 mmol/L (136-145) Potassium Level 4.3 mmol/L (3.5-5.1) Chloride Level 98 mmol/L (98-107) Carbon Dioxide Level 31 mmol/L (21-32) Anion Gap 9 (6-14) Blood Urea Nitrogen 38 mg/dL (8-26) Creatinine 8.4 mg/dL (0.7-1.3) Estimated GFR (Cockcroft-Gault) 6.5 Glucose Level 95 mg/dL (70-99) Calcium Level 8.6 mg/dL (8.5-10.1) Phosphorus Level 6.2 mg/dL (2.6-4.7) Magnesium Level 2.2 mg/dL (1.8-2.4) Albumin 3.2 g/dL (3.4-5.0) Medications Current Medications Ondansetron HCl (Zofran) 4 mg 1X ONCE IV Last administered on 07/01/17 22:36 ; Start 07/01/17 at 22:00; Stop 07/01/17 at 22:02; Status DC Nitroglycerin (Nitrostat) 0.4 mg PRN Q5MIN PRN SL CHEST PAIN Last administered on 07/01/17 22:36; Start 07/01/17 at 22:00 Ondansetron HCl (Zofran) 4 mg PRN Q8HRS PRN IV NAUSEA/VOMITING; Start 07/01/17 at 23:30; Stop 07/02/17 at 23:29; Status DC Morphine Sulfate 2 mg PRN Q2HR PRN IV PAIN Last administered on 07/02/17 06:14 ; Start 07/01/17 at 23:30; Stop 07/02/17 at 23:29; Status DC Acetaminophen (Tylenol) 650 mg PRN Q4HRS PRN PO FEVER; Start 07/01/17 at 23:30 ; Stop 07/02/17 at 23:29; Status DC Sodium Polystyrene Sulfonate (Kayexalate) 15 gm 1X ONCE PO ; Start 07/01/17 at 23:45; Stop 07/01/17 at 23:46; Status DC Lorazepam (Ativan) 1 mg PRN Q6HRS PRN PO ANXIETY / AGITATION Last administered on 07/02/17 00:05; Start 07/01/17 at 23:30 Alprazolam (Xanax) 0.5 mg TID PRN PO ANXIETY / AGITATION Last administered on 08:40; Start 07/02/17 at 09:00 Calcium Carbonate/ Glycine (Tums) 500 mg TIDAC PO Last administered on 16:30; Start 07/02/17 at 11:30 Clopidogrel Bisulfate (Plavix) 75 mg DAILYWBKFT PO Last administered on 10:17; Start 07/02/17 at 09:00 Vitamin B Complex/ Vitamin C (Frances-Chilo) 1 tab DAILY PO Last administered on 08:41; Start 07/02/17 at 09:00 Furosemide (Lasix) 80 mg BID92 PO Last administered on 07/02/17 17:59; Start 07/02/17 at 09:00 Hydralazine HCl (Apresoline) 50 mg TID PO Last administered on 07/03/17 08:40 ; Start 07/02/17 at 09:00 Acetaminophen/ Hydrocodone Bitart (Lortab 5/325) 1 tab PRN Q6HRS PRN PO PAIN; Start 07/02/17 at 09:00 Metoprolol Succinate (Toprol Xl) 100 mg BID PO Last administered on 07/02/17 21:11; Start 07/02/17 at 09:00 Pantoprazole Sodium (Protonix) 40 mg BIDAC PO Last administered on 07/03/17 08 :39; Start 07/02/17 at 09:00 Paroxetine HCl (Paxil) 40 mg DAILY PO Last administered on 07/02/17 10:18; Start 07/02/17 at 09:00 Tamsulosin HCl (Flomax) 0.4 mg QHS PO Last administered on 07/02/17 21:10; Start 07/02/17 at 21:00 Losartan Potassium (Cozaar) 100 mg DAILY PO Last administered on 07/03/17 08: 40; Start 07/02/17 at 09:00 Non-Formulary Medication 20 mg DAILY PO ; Start 07/02/17 at 09:00; Status UNV Magnesium Sulfate/ Dextrose 50 ml @ 25 mls/hr PRN DAILY PRN IV for Mag < 1.7 on am labs; Start 07/02/17 at 10:00 Darbepoetin Percy (Aranesp) 60 mcg WEEKLYHS SQ Last administered on 07/02/17 21 :12; Start 07/02/17 at 21:00 Sodium Chloride 1,000 ml @ 1,000 mls/hr Q1H PRN IV hypotension; Start 07/02/17 at 13:04; Stop 07/02/17 at 19:03; Status DC Albumin Human 200 ml @ 200 mls/hr 1X PRN PRN IV Hypotension; Start 07/02/17 at 13:15; Stop 07/02/17 at 19:14; Status DC Acetaminophen (Tylenol) 500 mg 1X PRN PRN PO MILD PAIN / TEMP; Start 07/02/17 at 13:15; Stop 07/03/17 at 13:14 Diphenhydramine HCl (Benadryl) 25 mg 1X PRN PRN IV ITCHING Last administered on 07/02/17 13:25; Start 07/02/17 at 13:15; Stop 07/03/17 at 13:14 Info (PHARMACY MONITORING -- do not chart) 1 each PRN DAILY PRN MC SEE COMMENTS ; Start 07/02/17 at 13:15 Active Scripts Active Xanax (Alprazolam) 0.5 Mg Tablet 0.5 Mg PO TID PRN LAST DOSE: 02/23/16 BEDTIME NEXT DOSE: 02/24/16 BEDTIME Flomax (Tamsulosin Hcl) 0.4 Mg Cap.er.24h 0.4 Mg PO QHS Reported Metoprolol Succinate ( Xl ) (Metoprolol Succinate) 100 Mg Tab.er.24h 100 BID Pantoprazole Sodium 40 Mg Tablet.dr 40 BID Plavix (Clopidogrel Bisulfate) 75 Mg Tablet 75 DAILY Losartan Potassium 100 Mg Tablet 100 DAILY Furosemide 80 Mg Tablet 80 BID Hydralazine Hcl 50 Mg Tablet 50 TID Hydrocodone-Apap 5-325 (Hydrocodone Bit/Acetaminophen) 1 Each Tablet 1 Tab PO PRN Q6HRS PRN Nephro-Chilo Tablet (Folic Acid/Vitamin B Comp W-C) 0.8 Mg Tablet 1 Tab PO DAILY Paroxetine Hcl 20 Mg Tablet 40 Mg PO DAILY Tums (Calcium Carbonate) 200 Mg Tab.chew 800 Mg PO TIDAC Omeprazole Magnesium 20 Mg Capsule.dr 20 Mg PO DAILY Vitals/I & O Vital Sign - Last 24 Hours 07/02/17 07/02/17 07/02/17 07/02/17 10:15 10:16 10:17 11:00 Temp 97.4 97.4 Pulse 62 62 62 61 Resp 20 B/P (MAP) 145/70 145/70 145/70 136/67 (90) Pulse Ox 92 O2 Delivery Nasal Cannula O2 Flow Rate 5.0 07/02/17 07/02/17 07/02/17 07/02/17 17:59 19:30 20:00 21:10 Temp 98.0 98.0 Pulse 97 82 66 Resp 21 B/P (MAP) 166/72 168/70 (102) 165/77 Pulse Ox 96 O2 Delivery Nasal Cannula Nasal Cannula O2 Flow Rate 5.0 4.0 07/02/17 07/02/17 07/03/17 07/03/17 21:11 23:25 03:10 07:15 Temp 98.1 98.4 98.1 98.1 98.4 98.1 Pulse 66 72 67 62 Resp 20 18 18 B/P (MAP) 165/77 141/68 (92) 160/75 (103) 146/65 (92) Pulse Ox 92 94 97 O2 Delivery Nasal Cannula Nasal Cannula Nasal Cannula O2 Flow Rate 5.0 5.0 5.0 07/03/17 07/03/17 08:40 08:40 Pulse 64 64 B/P (MAP) 146/65 146/65 Intake and Output 07/02/17 07/02/17 07/03/17 15:00 23:00 07:00 Intake Total 220 ml 100 ml 300 ml Output Total 0 ml 0 ml Balance 220 ml 100 ml 300 ml ESTEFANÍA MANZO MD Jul 03, 2017 09:03
--- NOTE | 2017-07-03 09:09 | HP ---
ADMIT DATE: 07/01/2017 CHIEF COMPLAINT: Chest pain. HISTORY OF PRESENT ILLNESS: The patient is a pleasant middle-aged male well known to our service. He gets admitted every month or so with usually volume overload. He is on dialysis. At this time, he has got a little bit of chest pain, he rates it 7/10. He has associated weakness. I have discussed the case with the ER physician. We are going to admit the patient and consult Cardiology. PAST MEDICAL HISTORY: End-stage renal disease; CHF; vague history of bladder cancer, although I have never been quite clear if he really had that or not. Hypertension, diabetes, anxiety, depression. Peripheral vascular disease (he states he is going to have a bypass in his lower extremities soon). GERD, insomnia and BPH. ALLERGIES: None. FAMILY HISTORY: Diabetes. SOCIAL HISTORY: Does not drink, smoke or take drugs. MEDICATIONS: Reviewed, please refer to the MRAD. REVIEW OF SYSTEMS: GENERAL: No history of weight change, weakness or fevers. SKIN: No bruising, hair changes or rashes. EYES: No blurred, double or loss of vision. NOSE AND THROAT: No history of nosebleeds, hoarseness or sore throat. HEART: No history of palpitations, chest pain or shortness of breath on exertion. LUNGS: Denies cough, hemoptysis, wheezing or shortness of breath. GASTROINTESTINAL: Denies changes in appetite, nausea, vomiting, diarrhea or constipation. GENITOURINARY: No history of frequency, urgency, hesitancy or nocturia. NEUROLOGIC: Denies history of numbness, tingling, tremor or weakness. PSYCHIATRIC: No history of panic, anxiety or depression. ENDOCRINE: No history of heat or cold intolerance, polyuria or polydipsia. EXTREMITIES: Denies muscle weakness, joint pain, pain on walking or stiffness. PHYSICAL EXAMINATION: VITAL SIGNS: Temperature afebrile, pulse 74, respirations 20, blood pressure 160/90. GENERAL: He is alert, cooperative. HEART: Normal S1, S2. LUNGS: Clear. ABDOMEN: Soft. EXTREMITIES: No edema. SKIN: No rashes. PSYCHIATRIC: He is little depressed. VASCULAR: Good capillary refill. ENDOCRINE: No thyromegaly. LYMPHATICS: No cervical nodes. HEMATOPOIETIC: No bruising. ASSESSMENT AND PLAN: Chest pain in a middle-aged male with above-noted comorbidities. We will check serial enzymes, serial EKGs, cardiac monitoring. Daily aspirin. Continue home medicines. Consult Cardiology. YNI QUARLES DO DR: EVELIN/alyson JOB#: [id number] / [id number]
[2017-07-03] MEDS ORDERED: IOHEXOL 300 MG/ML 100ML VIAL. ONE (10:30)
[2017-07-03] MEDS ORDERED: LIDOCAINE 1% / SOD BICARB 8.4% 20 ML VIAL. IJ ONE ×2 (10:30→12:00)
[2017-07-03] MEDS ORDERED: IODIXANOL 320 MG/ML 100 ML VIAL. ONE (10:31)
[2017-07-03] MEDS ORDERED: fentaNYL PF VIAL 100 MCG/2 ML VIAL ONE (11:03)
[2017-07-03] MEDS ORDERED: MIDAZOLAM HCL/PF 2 MG/2 ML VIAL. ONE (11:03)
[2017-07-03] MEDS ORDERED: MIDAZOLAM HCL/PF 2 MG/2 ML VIAL. IV ONE (12:00)
[2017-07-03] MEDS ORDERED: IODIXANOL 320 MG/ML 100 ML VIAL. IART ONE (12:00)
[2017-07-03] MEDS ORDERED: fentaNYL PF VIAL 100 MCG/2 ML VIAL IV ONE (12:00)
--- NOTE | 2017-07-03 12:04 | PDOC ---
MODERATE SEDATION ASSESSMENT RISKS/ALTERNATIVES Risks/Alternatives Risks and alternatives of this type of sedation and procedure discussed with: RISK/ALTERNATIVES: Patient H & P ON CHART H & P H & P on chart and reviewed for co-morbid conditions and appropriate labs. H&P ON CHART: Yes STATUS PREG STATUS ASSESSED: Yes MEDS/ALLERGIES REVIEWED Meds/Allergies Reviewed Medications and Allergies including time and route of recently administered narcotics and sedatives. MEDS/ALLERGIES REVIEWED: Yes ASA RATING ASA RATING: II AIRWAY ASSESSMENT Airway Assessment Airway patency, oral function limitations, presence of caps, crowns, dentures, partials, and ability to extend neck assessed. AIRWAY ASSESSMENT: Yes MALLAMPATI SCORE MALLAMPATI SCORE: II PRE-SEDATION ASSESSMENT PRE-SEDATION ASSESSMENT: Yes ALEKSANDAR COLE MD Jul 03, 2017 12:04
--- NOTE | 2017-07-03 12:07 | PDOC ---
BRIEF OPERATIVE NOTE Pre-Op Diagnosis PAD Post-Op Diagnosis same Procedure Performed RLE arteriogram, diagnostic Surgeon Lise Anesthesia Type: Conscious Sedation Findings Occluded right femoral artery stents with reconstituted popliteal via profunda collaterals. There is a focal high grade distal tibioperoneal stenosis. AT patent with inline flow to the DP and peroneal patent to the ankle and reconstitutes the PT of the foot. PT of the leg tapers to occlusion above the ankle. Moderate fusiform narrowing of the right external iliac artery. Complications No immediate ALEKSANDAR COLE MD Jul 03, 2017 12:07
[2017-07-03] MEDS: METOPROLOL SUCC 24HR ER 100 MG TAB.ER.24H. PO SCH ×2 (12:33→20:32)
[2017-07-03] MEDS: HYDROcodone/APAP 5/325MG 1 TAB TABLET PO PRN ×2 (12:34→22:56)
[2017-07-03] MEDS: PARoxetine 20 MG TABLET PO SCH (12:34)
--- NOTE | 2017-07-03 13:04 | PDOC ---
PROGRESS NOTES Chief Complaint Chief Complaint CC: Chest pain -End stage renal failure -CHF -HTN -Diabetes History of Present Illness History of Present Illness -Pt was seen in his room resting in bed -Appeared awake, alert, and in NAD Vitals Vitals Vital Signs Date Time Temp Pulse Resp B/P (MAP) Pulse Ox O2 Delivery O2 Flow Rate FiO2 07/03/17 12:34 100 Nasal Cannula 4.0 07/03/17 12:33 70 144/76 07/03/17 12:03 16 07/03/17 07:15 98.1 98.1 Physical Exam General: Alert, Oriented X3, Cooperative, No acute distress Heart: Regular rate, Normal S1, Normal S2, No murmurs Lungs: Clear, Other (No RRW) Abdomen: Normal bowel sounds, Soft, No tenderness Extremities: No clubbing, No cyanosis, No edema, Other (He has palpable femoral pulses bilaterally, dorsalis pedis and posterior tibial Doppler signals bilaterally) Skin: No rashes, No breakdown, No significant lesion Labs LABS Laboratory Tests Test 07/03/17 05:00 Hemoglobin 9.4 g/dL (13.0-17.5) Sodium Level 138 mmol/L (136-145) Potassium Level 4.3 mmol/L (3.5-5.1) Chloride Level 98 mmol/L (98-107) Carbon Dioxide Level 31 mmol/L (21-32) Anion Gap 9 (6-14) Blood Urea Nitrogen 38 mg/dL (8-26) Creatinine 8.4 mg/dL (0.7-1.3) Estimated GFR (Cockcroft-Gault) 6.5 Glucose Level 95 mg/dL (70-99) Calcium Level 8.6 mg/dL (8.5-10.1) Phosphorus Level 6.2 mg/dL (2.6-4.7) Magnesium Level 2.2 mg/dL (1.8-2.4) Albumin 3.2 g/dL (3.4-5.0) Review of Systems Review of Systems -Denies chest pain -Denies n/v/d -Complains of weakness Assessment and Plan Assessmemt and Plan Problems Medical Problems: (1) Accelerated hypertension Status: Acute (2) CAD (coronary artery disease) Status: Acute (3) Chest pain Status: Acute (4) End stage renal disease Status: Acute (5) Fluid overload Status: Acute (6) Pancreatitis Status: Acute CC: Chest pain -End stage renal failure -CHF -HTN -Diabetes Plan: -Cont. home meds -Cont. dialysis -Discussed angiography findings with Dr. Lezama -Awaiting input from vascular surgery -Recheck labs Problems: Comment Review of Relevant I have reviewed the following items dionte (where applicable) has been applied. Labs Laboratory Tests Test 07/01/17 22:00 07/02/17 00:01 07/02/17 06:00 07/02/17 13:00 White Blood Count 9.2 x10^3/uL (4.0-11.0) 7.7 x10^3/uL (4.0-11.0) Red Blood Count 3.50 x10^6/uL (4.30-5.70) 3.18 x10^6/uL (4.30-5.70) Hemoglobin 10.6 g/dL (13.0-17.5) 9.8 g/dL (13.0-17.5) Hematocrit 31.2 % (39.0-53.0) 27.9 % (39.0-53.0) Mean Corpuscular Volume 89 fL (79-100) 88 fL (79-100) Mean Corpuscular Hemoglobin 30 pg (25-35) 31 pg (25-35) Mean Corpuscular Hemoglobin Concent 34 g/dL (31-37) 35 g/dL (31-37) Red Cell Distribution Width 14.5 % (11.5-14.5) 14.7 % (11.5-14.5) Platelet Count 209 x10^3/uL (140-400) 178 x10^3/uL (140-400) Neutrophils (%) (Auto) 78 % (31-73) 74 % (31-73) Lymphocytes (%) (Auto) 9 % (24-48) 13 % (24-48) Monocytes (%) (Auto) 10 % (0-9) 10 % (0-9) Eosinophils (%) (Auto) 3 % (0-3) 3 % (0-3) Basophils (%) (Auto) 1 % (0-3) 1 % (0-3) Neutrophils # (Auto) 7.1 x10^3uL (1.8-7.7) 5.7 x10^3uL (1.8-7.7) Lymphocytes # (Auto) 0.8 x10^3/uL (1.0-4.8) 1.0 x10^3/uL (1.0-4.8) Monocytes # (Auto) 0.9 x10^3/uL (0.0-1.1) 0.7 x10^3/uL (0.0-1.1) Eosinophils # (Auto) 0.2 x10^3/uL (0.0-0.7) 0.2 x10^3/uL (0.0-0.7) Basophils # (Auto) 0.1 x10^3/uL (0.0-0.2) 0.1 x10^3/uL (0.0-0.2) Prothrombin Time 11.8 SEC (11.7-14.0) Prothromb Time International Ratio 0.9 (0.8-1.1) Activated Partial Thromboplast Time 38 SEC (24-38) Sodium Level 132 mmol/L (136-145) 134 mmol/L (136-145) Potassium Level 5.2 mmol/L (3.5-5.1) 5.2 mmol/L (3.5-5.1) Chloride Level 93 mmol/L (98-107) 95 mmol/L (98-107) Carbon Dioxide Level 20 mmol/L (21-32) 22 mmol/L (21-32) Anion Gap 19 (6-14) 17 (6-14) Blood Urea Nitrogen 75 mg/dL (8-26) 81 mg/dL (8-26) Creatinine 13.3 mg/dL (0.7-1.3) 13.9 mg/dL (0.7-1.3) Estimated GFR (Cockcroft-Gault) 3.8 3.7 BUN/Creatinine Ratio 6 (6-20) Glucose Level 115 mg/dL (70-99) 83 mg/dL (70-99) Calcium Level 7.0 mg/dL (8.5-10.1) 6.5 mg/dL (8.5-10.1) Total Bilirubin 0.5 mg/dL (0.2-1.0) Aspartate Amino Transf (AST/SGOT) 25 U/L (15-37) Alanine Aminotransferase (ALT/SGPT) 12 U/L (16-63) Alkaline Phosphatase 99 U/L (46-116) Troponin I Quantitative 0.035 ng/mL (0.000-0.055) 0.029 ng/mL (0.000-0.055) 0.024 ng/mL (0.000-0.055) VS-Aai-E-Type Natriuretic Peptide > 03060 pg/mL (0-124) Total Protein 7.4 g/dL (6.4-8.2) Albumin 3.5 g/dL (3.4-5.0) Albumin/Globulin Ratio 0.9 (1.0-1.7) Lipase 512 U/L (73-393) Nasal Screen MRSA (PCR) Negative (Negative) Phosphorus Level 9.2 mg/dL (2.6-4.7) Test 07/03/17 05:00 Hemoglobin 9.4 g/dL (13.0-17.5) Sodium Level 138 mmol/L (136-145) Potassium Level 4.3 mmol/L (3.5-5.1) Chloride Level 98 mmol/L (98-107) Carbon Dioxide Level 31 mmol/L (21-32) Anion Gap 9 (6-14) Blood Urea Nitrogen 38 mg/dL (8-26) Creatinine 8.4 mg/dL (0.7-1.3) Estimated GFR (Cockcroft-Gault) 6.5 Glucose Level 95 mg/dL (70-99) Calcium Level 8.6 mg/dL (8.5-10.1) Phosphorus Level 6.2 mg/dL (2.6-4.7) Magnesium Level 2.2 mg/dL (1.8-2.4) Albumin 3.2 g/dL (3.4-5.0) Laboratory Tests Test 07/03/17 05:00 Hemoglobin 9.4 g/dL (13.0-17.5) Sodium Level 138 mmol/L (136-145) Potassium Level 4.3 mmol/L (3.5-5.1) Chloride Level 98 mmol/L (98-107) Carbon Dioxide Level 31 mmol/L (21-32) Anion Gap 9 (6-14) Blood Urea Nitrogen 38 mg/dL (8-26) Creatinine 8.4 mg/dL (0.7-1.3) Estimated GFR (Cockcroft-Gault) 6.5 Glucose Level 95 mg/dL (70-99) Calcium Level 8.6 mg/dL (8.5-10.1) Phosphorus Level 6.2 mg/dL (2.6-4.7) Magnesium Level 2.2 mg/dL (1.8-2.4) Albumin 3.2 g/dL (3.4-5.0) Medications Current Medications Ondansetron HCl (Zofran) 4 mg 1X ONCE IV Last administered on 07/01/17 22:36 ; Start 07/01/17 at 22:00; Stop 07/01/17 at 22:02; Status DC Nitroglycerin (Nitrostat) 0.4 mg PRN Q5MIN PRN SL CHEST PAIN Last administered on 07/01/17 22:36; Start 07/01/17 at 22:00 Ondansetron HCl (Zofran) 4 mg PRN Q8HRS PRN IV NAUSEA/VOMITING; Start 07/01/17 at 23:30; Stop 07/02/17 at 23:29; Status DC Morphine Sulfate 2 mg PRN Q2HR PRN IV PAIN Last administered on 07/02/17 06:14 ; Start 07/01/17 at 23:30; Stop 07/02/17 at 23:29; Status DC Acetaminophen (Tylenol) 650 mg PRN Q4HRS PRN PO FEVER; Start 07/01/17 at 23:30 ; Stop 07/02/17 at 23:29; Status DC Sodium Polystyrene Sulfonate (Kayexalate) 15 gm 1X ONCE PO ; Start 07/01/17 at 23:45; Stop 07/01/17 at 23:46; Status DC Lorazepam (Ativan) 1 mg PRN Q6HRS PRN PO ANXIETY / AGITATION Last administered on 07/02/17 00:05; Start 07/01/17 at 23:30 Alprazolam (Xanax) 0.5 mg TID PRN PO ANXIETY / AGITATION Last administered on 08:40; Start 07/02/17 at 09:00 Calcium Carbonate/ Glycine (Tums) 500 mg TIDAC PO Last administered on 12:34; Start 07/02/17 at 11:30 Clopidogrel Bisulfate (Plavix) 75 mg [id number] PO Last administered on 10:17; Start 07/02/17 at 09:00 Vitamin B Complex/ Vitamin C (Frances-Chilo) 1 tab DAILY PO Last administered on 08:41; Start 07/02/17 at 09:00 Furosemide (Lasix) 80 mg BID92 PO Last administered on 07/02/17 17:59; Start 07/02/17 at 09:00 Hydralazine HCl (Apresoline) 50 mg TID PO Last administered on 07/03/17 08:40 ; Start 07/02/17 at 09:00 Acetaminophen/ Hydrocodone Bitart (Lortab 5/325) 1 tab PRN Q6HRS PRN PO PAIN Last administered on 07/03/17 12:34; Start 07/02/17 at 09:00 Metoprolol Succinate (Toprol Xl) 100 mg BID PO Last administered on 07/03/17 12:33; Start 07/02/17 at 09:00 Pantoprazole Sodium (Protonix) 40 mg BIDAC PO Last administered on 07/03/17 08 :39; Start 07/02/17 at 09:00 Paroxetine HCl (Paxil) 40 mg DAILY PO Last administered on 07/03/17 12:34; Start 07/02/17 at 09:00 Tamsulosin HCl (Flomax) 0.4 mg QHS PO Last administered on 07/02/17 21:10; Start 07/02/17 at 21:00 Losartan Potassium (Cozaar) 100 mg DAILY PO Last administered on 07/03/17 08: 40; Start 07/02/17 at 09:00 Non-Formulary Medication 20 mg DAILY PO ; Start 07/02/17 at 09:00; Status UNV Magnesium Sulfate/ Dextrose 50 ml @ 25 mls/hr PRN DAILY PRN IV for Mag < 1.7 on am labs; Start 07/02/17 at 10:00 Darbepoetin Percy (Aranesp) 60 mcg WEEKLYHS SQ Last administered on 07/02/17 21 :12; Start 07/02/17 at 21:00 Sodium Chloride 1,000 ml @ 1,000 mls/hr Q1H PRN IV hypotension; Start 07/02/17 at 13:04; Stop 07/02/17 at 19:03; Status DC Albumin Human 200 ml @ 200 mls/hr 1X PRN PRN IV Hypotension; Start 07/02/17 at 13:15; Stop 07/02/17 at 19:14; Status DC Acetaminophen (Tylenol) 500 mg 1X PRN PRN PO MILD PAIN / TEMP; Start 07/02/17 at 13:15; Stop 07/03/17 at 13:14 Diphenhydramine HCl (Benadryl) 25 mg 1X PRN PRN IV ITCHING Last administered on 07/02/17t 13:25; Start 07/02/17 at 13:15; Stop 07/03/17 at 13:14 Info (PHARMACY MONITORING -- do not chart) 1 each PRN DAILY PRN MC SEE COMMENTS ; Start 07/02/17 at 13:15 Iohexol (Omnipaque 300 Mg/ml) 100 ml STK-MED ONCE .ROUTE ; Start 07/03/17 at 10: 30; Stop 07/03/17 at 10:31; Status DC Lidocaine/Sodium Bicarbonate (Buffered Lidocaine 1%) 20 ml STK-MED ONCE IJ ; Start 07/03/17 at 10:30; Stop 07/03/17 at 10:31; Status DC Heparin Sodium/ Sodium Chloride 1,000 ml @ As Directed STK-MED ONCE .ROUTE ; Start 07/03/17 at 10:30; Stop 07/03/17 at 10:31; Status DC Iodixanol (Visipaque 320) 100 ml STK-MED ONCE .ROUTE ; Start 07/03/17 at 10:31; Stop 07/03/17 at 10:32; Status DC Fentanyl Citrate (Fentanyl 2ml Vial) 100 mcg STK-MED ONCE .ROUTE ; Start at 11:03; Stop 07/03/17 at 11:04; Status DC Midazolam HCl (Versed) 2 mg STK-MED ONCE .ROUTE ; Start 07/03/17 at 11:03; Stop 07/03/17 at 11:04; Status DC Heparin Sodium/ Sodium Chloride 1,000 unit 1X ONCE IART Last administered on t 12:02; Start 07/03/17 at 12:00; Stop 07/03/17 at 12:01; Status DC Heparin Sodium/ Sodium Chloride 1,000 unit 1X ONCE IART Last administered on 12:02; Start 07/03/17 at 12:00; Stop 07/03/17 at 12:01; Status DC Lidocaine/Sodium Bicarbonate (Buffered Lidocaine 1%) 4 ml 1X ONCE IJ Last administered on 07/03/17 12:01; Start 07/03/17 at 12:00; Stop 07/03/17 at 12:01 ; Status DC Midazolam HCl (Versed) 1 mg 1X ONCE IV Last administered on 07/03/17 12:03; Start 07/03/17 at 12:00; Stop 07/03/17 at 12:01; Status DC Fentanyl Citrate (Fentanyl 2ml Vial) 50 mcg 1X ONCE IV Last administered on 12:02; Start 07/03/17 at 12:00; Stop 07/03/17 at 12:01; Status DC Iodixanol (Visipaque 320) 109 ml 1X ONCE IART Last administered on 07/03/17 12:01; Start 07/03/17 at 12:00; Stop 07/03/17 at 12:01; Status DC Active Scripts Active Xanax (Alprazolam) 0.5 Mg Tablet 0.5 Mg PO TID PRN LAST DOSE: 02/23/16 BEDTIME NEXT DOSE: 02/24/16 BEDTIME Flomax (Tamsulosin Hcl) 0.4 Mg Cap.er.24h 0.4 Mg PO QHS Reported Metoprolol Succinate ( Xl ) (Metoprolol Succinate) 100 Mg Tab.er.24h 100 BID Pantoprazole Sodium 40 Mg Tablet.dr 40 BID Plavix (Clopidogrel Bisulfate) 75 Mg Tablet 75 DAILY Losartan Potassium 100 Mg Tablet 100 DAILY Furosemide 80 Mg Tablet 80 BID Hydralazine Hcl 50 Mg Tablet 50 TID Hydrocodone-Apap 5-325 (Hydrocodone Bit/Acetaminophen) 1 Each Tablet 1 Tab PO PRN Q6HRS PRN Nephro-Chilo Tablet (Folic Acid/Vitamin B Comp W-C) 0.8 Mg Tablet 1 Tab PO DAILY Paroxetine Hcl 20 Mg Tablet 40 Mg PO DAILY Tums (Calcium Carbonate) 200 Mg Tab.chew 800 Mg PO TIDAC Omeprazole Magnesium 20 Mg Capsule.dr 20 Mg PO DAILY Vitals/I & O Vital Sign - Last 24 Hours 07/02/17 07/02/17 07/02/17 07/02/17 17:59 19:30 20:00 21:10 Temp 98.0 98.0 Pulse 97 82 66 Resp 21 B/P (MAP) 166/72 168/70 (102) 165/77 Pulse Ox 96 O2 Delivery Nasal Cannula Nasal Cannula O2 Flow Rate 5.0 4.0 07/02/17 07/02/17 07/03/17 07/03/17 21:11 23:25 03:10 07:15 Temp 98.1 98.4 98.1 98.1 98.4 98.1 Pulse 66 72 67 62 Resp 20 18 18 B/P (MAP) 165/77 141/68 (92) 160/75 (103) 146/65 (92) Pulse Ox 92 94 97 O2 Delivery Nasal Cannula Nasal Cannula Nasal Cannula O2 Flow Rate 5.0 5.0 5.0 07/03/17 07/03/17 07/03/17 07/03/17 08:00 08:40 08:40 12:02 Pulse 64 64 Resp 16 B/P (MAP) 146/65 146/65 Pulse Ox 98 O2 Delivery Nasal Cannula Nasal Cannula O2 Flow Rate 3.0 4.0 07/03/17 07/03/17 07/03/17 12:03 12:33 12:34 Pulse 59 70 Resp 16 B/P (MAP) 144/76 Pulse Ox 100 100 O2 Delivery Nasal Cannula Nasal Cannula O2 Flow Rate 4.0 4.0 Intake and Output 07/02/17 07/02/17 07/03/17 15:00 23:00 07:00 Intake Total 220 ml 100 ml 300 ml Output Total 0 ml 0 ml Balance 220 ml 100 ml 300 ml YIN QUARLES III DO Jul 03, 2017 13:04
--- NOTE | 2017-07-03 13:58 | RAD ---
Procedure: Diagnostic right lower extremity arteriogram Clinical Indication: 61-year-old male with peripheral arterial disease and multiple prior right lower extremity arterial interventions, recurrent claudication Sedation: Conscious sedation was administered for 47 minutes. The patient was monitored by a qualified independent observer throughout the time of sedation. Please refer to the medical record for exact doses of medications utilized to achieve moderate sedation. Antibiotics: None Exposure: Kerma-Area Product: 40.14 Gycm Sterility: All elements of maximal sterile barrier technique including the use of a cap, mask, sterile gown, sterile gloves, large sterile sheet, appropriate hand hygiene, and 2% chlorhexidine for cutaneous antisepsis (or acceptable alternative antiseptic per current guidelines) were followed for this procedure. Consent: The procedure was explained in its entirety to the patient or the patients designated patient admitting representative by a member of the treatment team, including a discussion of the risks, benefits and commonly accepted alternatives to the procedure, as well as the expected consequences of no therapy whatsoever. Discussion of the risks included, but was not limited to, those that are most frequent and those that are rare but possibly severe or life-threatening, as well as the possibility of unforeseen complications. Technique and Findings: Following informed consent, the patient was prepped and draped in usual sterile fashion. Ultrasound interrogation of the left groin revealed patency of the left common femoral artery. Hardcopy ultrasound image was recorded as a 21-gauge micropuncture needle was used to gain access to this artery. The needle was exchanged over wire for a 5 Vietnamese sheath. A flush catheter was advanced into the abdominal aorta and contrast aortography of the pelvis was performed in multiple obliquities. The catheter was then advanced to the contralateral common femoral artery and contrast angiography of the right leg was performed. The catheter was then removed, and the sheath was exchanged for a minx closure device which was successfully utilized to obtain hemostasis. There is moderate diffuse atherosclerosis throughout the iliac arteries, though all vessels are patent, with no clinically significant stenoses identified. The right external iliac artery demonstrates a long smooth circumferential narrowing of roughly 40% diameter reduction. In the left external iliac artery, there is a focal 50% stenosis just distal to the origin of the left hypogastric artery. This does not appear to produce flow limitation angiographically however. The right superficial femoral artery has been stented throughout most of its length. The right superficial femoral artery is occluded at its origin, however the right profunda femoral artery is widely patent and there is a robust network of collateral arteries throughout the thigh that reconstitute the distal superficial femoral artery near its junction with the popliteal artery. There is mild amount of retrograde flow within the distal 10 cm of the stented segment of the SFA, though these stents appear to be significantly diseased distally as well. The popliteal artery is widely patent and provides in-line flow to widely patent anterior tibial artery which further provides in-line flow to a patent dorsalis pedis artery. There is a mild nonflow limiting ostial stenosis at the origin of the right anterior tibial artery. The tibioperoneal trunk is notable for short high-grade calcified stenosis distally just above the origin of the peroneal artery and posterior tibial arteries. The peroneal artery is patent and prominent, providing brisk flow to the level the ankle, where it reconstitutes the posterior tibial artery at the foot. Posterior tibial artery is patent to the level of the ankle where it tapers to occlusion over a very short segment just behind the medial malleolus. Complications: No immediate Impression: 1. Moderate circumferential atherosclerotic narrowing of the right external iliac artery, without discrete focal stenosis or angiographic flow limitation. 2. Moderate focal stenosis of the left external iliac artery, also without angiographic flow limitation. 3. Complete occlusion of the previously stented superficial femoral artery proximally, with reconstitution distally via well-developed network of collaterals from the profunda. 4. High-grade focal stenosis of the distal tibial peroneal trunk. 5. Widely patent anterior tibial artery with in-line flow to the dorsalis pedis artery. 6. Widely patent peroneal artery, which rapidly reconstitutes the posterior tibial artery of the foot. 7. Patent but diminutive posterior tibial artery which tapers to occlusion posterior to the medial malleolus, but is rapidly reconstituted by the peroneal artery.
--- NOTE | 2017-07-03 14:32 | PDOC ---
SUBJECTIVE ROS ESRD Doing OK overall CVS: no Orthopnea, no CP RESP: no SOB, no FERNANDEZ GI: no Nausea, no Vomiting : no Dysuria, no Urgency OBJECTIVE Vital Signs Vital Signs Date Time Temp Pulse Resp B/P (MAP) Pulse Ox O2 Delivery O2 Flow Rate FiO2 07/03/17 13:34 100 Nasal Cannula 4.0 07/03/17 13:00 59 140/74 (96) 07/03/17 12:03 16 07/03/17 07:15 98.1 98.1 I & 0 Intake and Output 07/03/17 07:00 Intake Total 620 ml Output Total 0 ml Balance 620 ml Intake Oral 620 ml Output Urine Total 0 ml PHYSICAL EXAM Physical Exam General Appearance: Awake Alert Oriented x 3 In no Distress Eyes: VIsion Unchanged Conjunctiva Normal EN: No EN Drainage Mucous Memb. moist Neck: no JVD no JVP Supple no Thyromegaly CVS: S1 S2 + Murmur No Gallop No Rub no Edema Resp: no Rales no Rhonchi no Acc. Muscle use GI: BAS +ve NO Bruit Non Tender Non Distended : no CVA tenderness; no Suprapubic Tenderness SKIN: no Rashes Breast Exam deferred DIAGNOSIS/ASSESSMENT Assessment & Plan ESRD: Current fluid and E-lyte status does not necessitate emergent need for dialysis. Will re-evaluate for dialysis in the am and continue on TTSat schedule. HypoCal - better with HD ^ed K - due to dietary non-compliance; now better Anemia: Epogen as ordered; Transfuse with next HD as needed. HTN: Current BP meds reviewed. See orders for changes. PVD - for ? Bypass soon Bone & Mineral: Follow phos and alter binder regimen as needed Problems: COMMENT/RELEVANT DATA Meds Current Medications Medications (Trade) Dose Ordered Sig/Cirilo Start Time Stop Time Status Last Admin Dose Admin Acetaminophen (Tylenol) 500 mg 1X PRN PRN 07/02/17 13:15 07/03/17 13:14 DC Acetaminophen/ Hydrocodone Bitart (Lortab 5/325) 1 tab PRN Q6HRS PRN 07/02/17 09:00 07/03/17 12:34 1 TAB Albumin Human 200 ml @ 200 mls/hr 1X PRN PRN 07/02/17 13:15 07/02/17 19:14 DC Alprazolam (Xanax) 0.5 mg TID PRN 07/02/17 09:00 07/03/17 08:40 0.5 MG Calcium Carbonate/ Glycine (Tums) 500 mg TIDAC 07/02/17 11:30 07/03/17 12:34 500 MG Clopidogrel Bisulfate (Plavix) 75 mg DAILYWBKFT 07/02/17 09:00 07/02/17 10:17 75 MG Darbepoetin Percy (Aranesp) 60 mcg WEEKLYHS 07/02/17 21:00 07/02/17 21:12 60 MCG Diphenhydramine HCl (Benadryl) 25 mg 1X PRN PRN 07/02/17 13:15 07/03/17 13:14 DC 07/02/17 13:25 25 MG Fentanyl Citrate (Fentanyl 2ml Vial) 50 mcg 1X ONCE 07/03/17 12:00 07/03/17 12:01 DC 07/03/17 12:02 50 MCG Furosemide (Lasix) 80 mg [id number] 07/02/17 09:00 07/02/17 17:59 80 MG Heparin Sodium/ Sodium Chloride 1,000 unit 1X ONCE 07/03/17 12:00 07/03/17 12:01 DC 07/03/17 12:02 1,000 UNIT Hydralazine HCl (Apresoline) 50 mg TID 07/02/17 09:00 07/03/17 08:40 50 MG Info (PHARMACY MONITORING -- do not chart) 1 each PRN DAILY PRN 07/02/17 13:15 Iodixanol (Visipaque 320) 109 ml 1X ONCE 07/03/17 12:00 07/03/17 12:01 DC 07/03/17 12:01 109 ML Iohexol (Omnipaque 300 Mg/ml) 100 ml STK-MED ONCE 07/03/17 10:30 07/03/17 10:31 DC Lidocaine/Sodium Bicarbonate (Buffered Lidocaine 1%) 4 ml 1X ONCE 07/03/17 12:00 07/03/17 12:01 DC 07/03/17 12:01 4 ML Lorazepam (Ativan) 1 mg PRN Q6HRS PRN 07/01/17 23:30 07/02/17 00:05 1 MG Losartan Potassium (Cozaar) 100 mg DAILY 07/02/17 09:00 07/03/17 08:40 100 MG Magnesium Sulfate/ Dextrose 50 ml @ 25 mls/hr PRN DAILY PRN 07/02/17 10:00 Metoprolol Succinate (Toprol Xl) 100 mg BID 07/02/17 09:00 07/03/17 12:33 100 MG Midazolam HCl (Versed) 1 mg 1X ONCE 07/03/17 12:00 07/03/17 12:01 DC 07/03/17 12:03 1 MG Morphine Sulfate 2 mg PRN Q2HR PRN 07/01/17 23:30 07/02/17 23:29 DC 07/02/17 06:14 2 MG Nitroglycerin (Nitrostat) 0.4 mg PRN Q5MIN PRN 07/01/17 22:00 07/01/17 22:36 0.4 MG Non-Formulary Medication 20 mg DAILY 07/02/17 09:00 UNV Ondansetron HCl (Zofran) 4 mg PRN Q8HRS PRN 07/01/17 23:30 07/02/17 23:29 DC Pantoprazole Sodium (Protonix) 40 mg BIDAC 07/02/17 09:00 07/03/17 08:39 40 MG Paroxetine HCl (Paxil) 40 mg DAILY 07/02/17 09:00 07/03/17 12:34 40 MG Sodium Polystyrene Sulfonate (Kayexalate) 15 gm 1X ONCE 07/01/17 23:45 07/01/17 23:46 DC Sodium Chloride 1,000 ml @ 1,000 mls/hr Q1H PRN 07/02/17 13:04 07/02/17 19:03 DC Tamsulosin HCl (Flomax) 0.4 mg QHS 07/02/17 21:00 07/02/17 21:10 0.4 MG Vitamin B Complex/ Vitamin C (Frances-Chilo) 1 tab DAILY 07/02/17 09:00 07/03/17 08:41 1 TAB Lab Laboratory Tests Test 07/03/17 05:00 Hemoglobin 9.4 g/dL (13.0-17.5) Sodium Level 138 mmol/L (136-145) Potassium Level 4.3 mmol/L (3.5-5.1) Chloride Level 98 mmol/L (98-107) Carbon Dioxide Level 31 mmol/L (21-32) Anion Gap 9 (6-14) Blood Urea Nitrogen 38 mg/dL (8-26) Creatinine 8.4 mg/dL (0.7-1.3) Estimated GFR (Cockcroft-Gault) 6.5 Glucose Level 95 mg/dL (70-99) Calcium Level 8.6 mg/dL (8.5-10.1) Phosphorus Level 6.2 mg/dL (2.6-4.7) Magnesium Level 2.2 mg/dL (1.8-2.4) Albumin 3.2 g/dL (3.4-5.0) TING GARDUNO MD Jul 03, 2017 14:32
--- NOTE | 2017-07-03 15:13 | PDOC ---
Provider Note Provider Note AF VSS awake and alert left groin soft with no hematoma right groin palpable femoral pulse lower legs warm with no skin breakdown in the feet angiogram reviewed which shows complete occlusion fo the superficial femoral artery from origin to the above knee popliteal artery, no percutaneous intervention amenable A/P 68 year old male with right leg peripheral artery disease symptomatic with claudication, no rest pain nor tissue loss. Angiogram shows complete occlusion of the right superficial femoral artery which would require a right femoral to below knee popliteal artery bypass. I discussed the surgical option of a bypass operation with him vs continued conservative treatment since his symptoms are claudication. He does not want a bypass operation at this point which I think is reasonable. I will have him follow up in one month to evaluate symptoms and follow him in the future. If his symptoms progress to rest pain or tissue loss he will need a bypass surgery. AUDREY BELTRAN MD Jul 03, 2017 15:13
--- NOTE | 2017-07-03 15:20 | DISCH ---
DISCHARGE INSTRUCTIONS Follow-Up Follow up with: Dr. Holguin 08/02/2017 at 8:30am, , [id number] [id number] AUDREY BELTRAN MD Jul 03, 2017 15:19
[2017-07-03] MEDS: TAMSULOSIN 0.4 MG CAP.ER.24H. PO SCH (20:30)
[2017-07-04 03:35] VITALS: BP 146/75
[2017-07-04] MEDS: ALPRAZolam 0.5 MG TABLET PO PRN ×2 (03:59→14:38)
[2017-07-04 07:15] VITALS: BP 145/44
[2017-07-04] MEDS: PANTOPRAZOLE 40 MG TABLET.DR. PO SCH (08:15)
[2017-07-04] MEDS: CALCIUM CARBONATE 500 MG TAB.CHEW PO SCH ×2 (08:16→11:30)
[2017-07-04] MEDS: FOLIC/VIT B COMP W-C (RENAL) TABLET. PO SCH (08:16)
[2017-07-04] MEDS: LOSARTAN POTASSIUM 50 MG TABLET. PO SCH (08:16)
[2017-07-04] MEDS: PARoxetine 20 MG TABLET PO SCH (08:16)
[2017-07-04] MEDS: FUROSEMIDE 80 MG TABLET. PO SCH (08:16)
[2017-07-04] MEDS: CLOPIDOGREL BISULFATE 75 MG TABLET PO SCH (08:16)
[2017-07-04] MEDS: METOPROLOL SUCC 24HR ER 100 MG TAB.ER.24H. PO SCH (08:18)
[2017-07-04 08:54] LABS: ALBUMIN 3.1 g/dL (3.4-5.0); CALCIUM 7.5 mg/dL (8.5-10.1); CREATININE 11.4 mg/dL (0.7-1.3); GFR 4.6; MAGNESIUM 2.3 mg/dL (1.8-2.4); PHOSPHORUS 6.6 mg/dL (2.6-4.7); POTASSIUM 4.4 mmol/L (3.5-5.1)
[2017-07-04] MEDS ORDERED: IV NORMAL SALINE 1000ML BAG 1,000 ML IV PRN ×2 (09:43)
[2017-07-04] MEDS ORDERED: DIALYSIS PATIENT. MC PRN (09:45)
[2017-07-04] MEDS ORDERED: diphenhydrAMINE 50 MG/ML VIAL IV PRN (09:45)
--- NOTE | 2017-07-04 10:05 | PDOC ---
Dialysis Progress Note Dialysis Note Dialysis Note Seen on Hemodialysis, tolerating treatment Well Vitals on Hemodialysis: 152/71 58 afeb NSR General Appearance: Awake: Alert Oriented x 3 Neck: No JVD or JVP Chest: CTA Oliver Heart: S1 S2 Abdomen - Soft NTND Extremities - No Edema ESRD : Dialysis as below F 180 NR 3.5 Hrs 3 K 3.0 Ca 140 Na 30 HC03 Qb 350 + Qd 500+ Heparin 0 Units Uf 3-4 Kgs or to dry weight as tolerated May give 25-50 gms of 25% Albumin if needed to maintain Hemodynamic stability Treatment plan reviewed and discussed with seat joiner chainstitch Vitals Vital Signs Vital Signs Date Time Temp Pulse Resp B/P (MAP) Pulse Ox O2 Delivery O2 Flow Rate FiO2 07/04/17 08:18 61 145/44 07/04/17 07:32 Room Air 07/04/17 07:15 97.4 18 96 5.0 97.4 Labs Last Labs Laboratory Tests Test 07/02/17 13:00 07/03/17 05:00 07/04/17 08:20 Troponin I Quantitative 0.024 ng/mL (0.000-0.055) Hemoglobin 9.4 g/dL (13.0-17.5) Sodium Level 138 mmol/L (136-145) 141 mmol/L (136-145) Potassium Level 4.3 mmol/L (3.5-5.1) 4.4 mmol/L (3.5-5.1) Chloride Level 98 mmol/L (98-107) 99 mmol/L (98-107) Carbon Dioxide Level 31 mmol/L (21-32) 32 mmol/L (21-32) Anion Gap 9 (6-14) 10 (6-14) Blood Urea Nitrogen 38 mg/dL (8-26) 52 mg/dL (8-26) Creatinine 8.4 mg/dL (0.7-1.3) 11.4 mg/dL (0.7-1.3) Estimated GFR (Cockcroft-Gault) 6.5 4.6 Glucose Level 95 mg/dL (70-99) 154 mg/dL (70-99) Calcium Level 8.6 mg/dL (8.5-10.1) 7.5 mg/dL (8.5-10.1) Phosphorus Level 6.2 mg/dL (2.6-4.7) 6.6 mg/dL (2.6-4.7) Magnesium Level 2.2 mg/dL (1.8-2.4) 2.3 mg/dL (1.8-2.4) Albumin 3.2 g/dL (3.4-5.0) 3.1 g/dL (3.4-5.0) Laboratory Tests Test 07/04/17 08:20 Sodium Level 141 mmol/L (136-145) Potassium Level 4.4 mmol/L (3.5-5.1) Chloride Level 99 mmol/L (98-107) Carbon Dioxide Level 32 mmol/L (21-32) Anion Gap 10 (6-14) Blood Urea Nitrogen 52 mg/dL (8-26) Creatinine 11.4 mg/dL (0.7-1.3) Estimated GFR (Cockcroft-Gault) 4.6 Glucose Level 154 mg/dL (70-99) Calcium Level 7.5 mg/dL (8.5-10.1) Phosphorus Level 6.6 mg/dL (2.6-4.7) Magnesium Level 2.3 mg/dL (1.8-2.4) Albumin 3.1 g/dL (3.4-5.0) Assessment Assessment Problems Medical Problems: (1) Accelerated hypertension Status: Acute (2) CAD (coronary artery disease) Status: Acute (3) Chest pain Status: Acute (4) End stage renal disease Status: Acute (5) Fluid overload Status: Acute (6) Pancreatitis Status: Acute Problems: Plan Plan of Care Problems Medical Problems: (1) Accelerated hypertension Status: Acute (2) CAD (coronary artery disease) Status: Acute (3) Chest pain Status: Acute (4) End stage renal disease Status: Acute (5) Fluid overload Status: Acute (6) Pancreatitis Status: Acute TING GARDUNO MD Jul 04, 2017 10:05
--- NOTE | 2017-07-04 12:16 | PDOC3 ---
Discharge Summary Visit Information Date of Admission: Jul 01, 2017 Date of Discharge: Jul 04, 2017 Admitting Diagnosis: leg pain Final Diagnosis chest pain and leg pain -End stage renal failure -CHF -HTN, acclerated -Diabetes 2 depression and anxiety Problems Medical Problems: (1) Accelerated hypertension Status: Acute (2) CAD (coronary artery disease) Status: Acute (3) Chest pain Status: Acute (4) End stage renal disease Status: Acute (5) Fluid overload Status: Acute (6) Pancreatitis Status: Acute Brief Hospital Course Allergies Allergies Coded Allergies Type Severity Reaction Last Updated Verified aspirin Allergy Intermediate 04/16/17 Yes Vital Signs Vital Signs Date Time Temp Pulse Resp B/P (MAP) Pulse Ox O2 Delivery O2 Flow Rate FiO2 07/04/17 08:18 61 145/44 07/04/17 07:32 Room Air 07/04/17 07:15 97.4 18 96 5.0 97.4 Lab Results Laboratory Tests Test 07/02/17 13:00 07/03/17 05:00 07/04/17 08:20 Troponin I Quantitative 0.024 ng/mL (0.000-0.055) Hemoglobin 9.4 g/dL (13.0-17.5) Sodium Level 138 mmol/L (136-145) 141 mmol/L (136-145) Potassium Level 4.3 mmol/L (3.5-5.1) 4.4 mmol/L (3.5-5.1) Chloride Level 98 mmol/L (98-107) 99 mmol/L (98-107) Carbon Dioxide Level 31 mmol/L (21-32) 32 mmol/L (21-32) Anion Gap 9 (6-14) 10 (6-14) Blood Urea Nitrogen 38 mg/dL (8-26) 52 mg/dL (8-26) Creatinine 8.4 mg/dL (0.7-1.3) 11.4 mg/dL (0.7-1.3) Estimated GFR (Cockcroft-Gault) 6.5 4.6 Glucose Level 95 mg/dL (70-99) 154 mg/dL (70-99) Calcium Level 8.6 mg/dL (8.5-10.1) 7.5 mg/dL (8.5-10.1) Phosphorus Level 6.2 mg/dL (2.6-4.7) 6.6 mg/dL (2.6-4.7) Magnesium Level 2.2 mg/dL (1.8-2.4) 2.3 mg/dL (1.8-2.4) Albumin 3.2 g/dL (3.4-5.0) 3.1 g/dL (3.4-5.0) Laboratory Tests Test 07/04/17 08:20 Sodium Level 141 mmol/L (136-145) Potassium Level 4.4 mmol/L (3.5-5.1) Chloride Level 99 mmol/L (98-107) Carbon Dioxide Level 32 mmol/L (21-32) Anion Gap 10 (6-14) Blood Urea Nitrogen 52 mg/dL (8-26) Creatinine 11.4 mg/dL (0.7-1.3) Estimated GFR (Cockcroft-Gault) 4.6 Glucose Level 154 mg/dL (70-99) Calcium Level 7.5 mg/dL (8.5-10.1) Phosphorus Level 6.6 mg/dL (2.6-4.7) Magnesium Level 2.3 mg/dL (1.8-2.4) Albumin 3.1 g/dL (3.4-5.0) Brief Hospital Course Mr. Long is a 61 old admit with right leg pain, HD patient, known PAD, PER VASCULAR note: left groin soft with no hematoma, right groin palpable femoral pulse angiogram reviewed which shows complete occlusion fo the superficial femoral artery from origin to the above knee popliteal artery, no percutaneous intervention amenable He does not want a bypass operation at this point which Dr. Ye thinks is reasonable. f/u vascular one month depression and anxiety improved from previous Discharge Information Condition at Discharge: Improved Follow Up: Weeks Disposition/Orders: D/C to Home Scheduled Calcium Carbonate (Tums), 800 MG PO TIDAC, (Reported) Clopidogrel Bisulfate (Plavix), 75 DAILY, (Reported) Folic Acid/Vitamin B Comp W-C (Nephro-Chilo Tablet), 1 TAB PO DAILY, (Reported) Furosemide (Furosemide), 80 BID, (Reported) Hydralazine Hcl (Hydralazine Hcl), 50 TID, (Reported) Losartan Potassium (Losartan Potassium), 100 DAILY, (Reported) Metoprolol Succinate (Metoprolol Succinate ( Xl )), 100 BID, (Reported) Omeprazole Magnesium (Omeprazole Magnesium), 20 MG PO DAILY, (Reported) Pantoprazole Sodium (Pantoprazole Sodium), 40 BID, (Reported) Paroxetine Hcl (Paroxetine Hcl), 40 MG PO DAILY, (Reported) Tamsulosin Hcl (Flomax), 0.4 MG PO QHS Scheduled PRN Alprazolam (Xanax), 0.5 MG PO TID PRN for ANXIETY / AGITATION Hydrocodone Bit/Acetaminophen (Hydrocodone-Apap 5-325 ), 1 TAB PO PRN Q6HRS PRN for PAIN, (Reported) Patient Instructions Patient Instructions > 30min JANNA STALLWORTH MD Jul 04, 2017 12:16
--- NOTE | 2017-07-04 12:31 | PDOC ---
PROGRESS NOTES Subjective Subjective Pt getting dialysis. Pt has no complaints. Objective Objective Gen: pt resting comfortably in bed. Pt is pleasant, cooperative and conversational. No acute pain or distress. Neck: no jvd Card: no new heart sounds Resp: CTAB Neuro: pt awake, alert and oriented. Vital Signs Date Time Temp Pulse Resp B/P (MAP) Pulse Ox O2 Delivery O2 Flow Rate FiO2 07/04/17 08:18 61 145/44 07/04/17 07:32 Room Air 07/04/17 07:15 97.4 18 96 5.0 97.4 Intake and Output 07/04/17 07:00 Intake Total 220 ml Output Total 0 ml Balance 220 ml Intake Oral 220 ml Output Urine Total 0 ml Assessment Assessment Problems Medical Problems: (1) Accelerated hypertension Status: Acute (2) CAD (coronary artery disease) Status: Acute (3) Chest pain Status: Acute (4) End stage renal disease Status: Acute (5) Fluid overload Status: Acute (6) Pancreatitis Status: Acute Pt stable cardiac amado. Pt is in need of arterial bypass surgery in both legs. Pt is ready to be discharged. Pt will follow up with me in 3 weeks in clinic. Comment Review of Relevant I have reviewed the following items dionte (where applicable) has been applied. Labs Laboratory Tests Test 07/02/17 13:00 07/03/17 05:00 07/04/17 08:20 Troponin I Quantitative 0.024 ng/mL (0.000-0.055) Hemoglobin 9.4 g/dL (13.0-17.5) Sodium Level 138 mmol/L (136-145) 141 mmol/L (136-145) Potassium Level 4.3 mmol/L (3.5-5.1) 4.4 mmol/L (3.5-5.1) Chloride Level 98 mmol/L (98-107) 99 mmol/L (98-107) Carbon Dioxide Level 31 mmol/L (21-32) 32 mmol/L (21-32) Anion Gap 9 (6-14) 10 (6-14) Blood Urea Nitrogen 38 mg/dL (8-26) 52 mg/dL (8-26) Creatinine 8.4 mg/dL (0.7-1.3) 11.4 mg/dL (0.7-1.3) Estimated GFR (Cockcroft-Gault) 6.5 4.6 Glucose Level 95 mg/dL (70-99) 154 mg/dL (70-99) Calcium Level 8.6 mg/dL (8.5-10.1) 7.5 mg/dL (8.5-10.1) Phosphorus Level 6.2 mg/dL (2.6-4.7) 6.6 mg/dL (2.6-4.7) Magnesium Level 2.2 mg/dL (1.8-2.4) 2.3 mg/dL (1.8-2.4) Albumin 3.2 g/dL (3.4-5.0) 3.1 g/dL (3.4-5.0) Laboratory Tests Test 07/04/17 08:20 Sodium Level 141 mmol/L (136-145) Potassium Level 4.4 mmol/L (3.5-5.1) Chloride Level 99 mmol/L (98-107) Carbon Dioxide Level 32 mmol/L (21-32) Anion Gap 10 (6-14) Blood Urea Nitrogen 52 mg/dL (8-26) Creatinine 11.4 mg/dL (0.7-1.3) Estimated GFR (Cockcroft-Gault) 4.6 Glucose Level 154 mg/dL (70-99) Calcium Level 7.5 mg/dL (8.5-10.1) Phosphorus Level 6.6 mg/dL (2.6-4.7) Magnesium Level 2.3 mg/dL (1.8-2.4) Albumin 3.1 g/dL (3.4-5.0) Medications Current Medications Ondansetron HCl (Zofran) 4 mg 1X ONCE IV Last administered on 07/01/17 22:36 ; Start 07/01/17 at 22:00; Stop 07/01/17 at 22:02; Status DC Nitroglycerin (Nitrostat) 0.4 mg PRN Q5MIN PRN SL CHEST PAIN Last administered on 07/01/17 22:36; Start 07/01/17 at 22:00 Ondansetron HCl (Zofran) 4 mg PRN Q8HRS PRN IV NAUSEA/VOMITING; Start 07/01/17 at 23:30; Stop 07/02/17 at 23:29; Status DC Morphine Sulfate 2 mg PRN Q2HR PRN IV PAIN Last administered on 07/02/17 06:14 ; Start 07/01/17 at 23:30; Stop 07/02/17 at 23:29; Status DC Acetaminophen (Tylenol) 650 mg PRN Q4HRS PRN PO FEVER; Start 07/01/17 at 23:30 ; Stop 07/02/17 at 23:29; Status DC Sodium Polystyrene Sulfonate (Kayexalate) 15 gm 1X ONCE PO ; Start 07/01/17 at 23:45; Stop 07/01/17 at 23:46; Status DC Lorazepam (Ativan) 1 mg PRN Q6HRS PRN PO ANXIETY / AGITATION Last administered on 07/02/17 00:05; Start 07/01/17 at 23:30 Alprazolam (Xanax) 0.5 mg TID PRN PO ANXIETY / AGITATION Last administered on 03:59; Start 07/02/17 at 09:00 Calcium Carbonate/ Glycine (Tums) 500 mg TIDAC PO Last administered on 08:16; Start 07/02/17 at 11:30 Clopidogrel Bisulfate (Plavix) 75 mg DAILYWBKFT PO Last administered on 08:16; Start 07/02/17 at 09:00 Vitamin B Complex/ Vitamin C (Frances-Chilo) 1 tab DAILY PO Last administered on 08:16; Start 07/02/17 at 09:00 Furosemide (Lasix) 80 mg BID92 PO Last administered on 07/04/17 08:16; Start 07/02/17 at 09:00 Hydralazine HCl (Apresoline) 50 mg TID PO Last administered on 07/04/17 08:17 ; Start 07/02/17 at 09:00 Acetaminophen/ Hydrocodone Bitart (Lortab 5/325) 1 tab PRN Q6HRS PRN PO PAIN Last administered on 07/03/17 22:56; Start 07/02/17 at 09:00 Metoprolol Succinate (Toprol Xl) 100 mg BID PO Last administered on 07/04/17 08:18; Start 07/02/17 at 09:00 Pantoprazole Sodium (Protonix) 40 mg BIDAC PO Last administered on 07/04/17 08 :15; Start 07/02/17 at 09:00 Paroxetine HCl (Paxil) 40 mg DAILY PO Last administered on 07/04/17 08:16; Start 07/02/17 at 09:00 Tamsulosin HCl (Flomax) 0.4 mg QHS PO Last administered on 07/03/17 20:30; Start 07/02/17 at 21:00 Losartan Potassium (Cozaar) 100 mg DAILY PO Last administered on 07/04/17 08: 16; Start 07/02/17 at 09:00 Non-Formulary Medication 20 mg DAILY PO ; Start 07/02/17 at 09:00; Status UNV Magnesium Sulfate/ Dextrose 50 ml @ 25 mls/hr PRN DAILY PRN IV for Mag < 1.7 on am labs; Start 07/02/17 at 10:00 Darbepoetin Percy (Aranesp) 60 mcg WEEKLYHS SQ Last administered on 07/02/17 21 :12; Start 07/02/17 at 21:00 Sodium Chloride 1,000 ml @ 1,000 mls/hr Q1H PRN IV hypotension; Start 07/02/17 at 13:04; Stop 07/02/17 at 19:03; Status DC Albumin Human 200 ml @ 200 mls/hr 1X PRN PRN IV Hypotension; Start 07/02/17 at 13:15; Stop 07/02/17 at 19:14; Status DC Acetaminophen (Tylenol) 500 mg 1X PRN PRN PO MILD PAIN / TEMP; Start 07/02/17 at 13:15; Stop 07/03/17 at 13:14; Status DC Diphenhydramine HCl (Benadryl) 25 mg 1X PRN PRN IV ITCHING Last administered on 07/02/17 13:25; Start 07/02/17 at 13:15; Stop 07/03/17 at 13:14; Status DC Info (PHARMACY MONITORING -- do not chart) 1 each PRN DAILY PRN MC SEE COMMENTS ; Start 07/02/17 at 13:15 Iohexol (Omnipaque 300 Mg/ml) 100 ml STK-MED ONCE .ROUTE ; Start 07/03/17 at 10: 30; Stop 07/03/17 at 10:31; Status DC Lidocaine/Sodium Bicarbonate (Buffered Lidocaine 1%) 20 ml STK-MED ONCE IJ ; Start 07/03/17 at 10:30; Stop 07/03/17 at 10:31; Status DC Heparin Sodium/ Sodium Chloride 1,000 ml @ As Directed STK-MED ONCE .ROUTE ; Start 07/03/17 at 10:30; Stop 07/03/17 at 10:31; Status DC Iodixanol (Visipaque 320) 100 ml STK-MED ONCE .ROUTE ; Start 07/03/17 at 10:31; Stop 07/03/17 at 10:32; Status DC Fentanyl Citrate (Fentanyl 2ml Vial) 100 mcg STK-MED ONCE .ROUTE ; Start at 11:03; Stop 07/03/17 at 11:04; Status DC Midazolam HCl (Versed) 2 mg STK-MED ONCE .ROUTE ; Start 07/03/17 at 11:03; Stop 07/03/17 at 11:04; Status DC Heparin Sodium/ Sodium Chloride 1,000 unit 1X ONCE IART Last administered on 12:02; Start 07/03/17 at 12:00; Stop 07/03/17 at 12:01; Status DC Heparin Sodium/ Sodium Chloride 1,000 unit 1X ONCE IART Last administered on 12:02; Start 07/03/17 at 12:00; Stop 07/03/17 at 12:01; Status DC Lidocaine/Sodium Bicarbonate (Buffered Lidocaine 1%) 4 ml 1X ONCE IJ Last administered on 07/03/17 12:01; Start 07/03/17 at 12:00; Stop 07/03/17 at 12:01 ; Status DC Midazolam HCl (Versed) 1 mg 1X ONCE IV Last administered on 07/03/17 12:03; Start 07/03/17 at 12:00; Stop 07/03/17 at 12:01; Status DC Fentanyl Citrate (Fentanyl 2ml Vial) 50 mcg 1X ONCE IV Last administered on 12:02; Start 07/03/17 at 12:00; Stop 07/03/17 at 12:01; Status DC Iodixanol (Visipaque 320) 109 ml 1X ONCE IART Last administered on 07/03/17 12:01; Start 07/03/17 at 12:00; Stop 07/03/17 at 12:01; Status DC Sodium Chloride 1,000 ml @ 1,000 mls/hr Q1H PRN IV hypotension; Start 07/04/17 at 09:43; Stop 07/04/17 at 15:42 Diphenhydramine HCl (Benadryl) 50 mg 1X PRN PRN IV ITCHING Last administered on 07/04/17t 10:38; Start 07/04/17 at 09:45; Stop 07/05/17 at 09:44 Sodium Chloride 1,000 ml @ 400 mls/hr Q2H30M PRN IV PATENCY; Start 07/04/17 at 09:43; Stop 07/04/17 at 21:42 Info (PHARMACY MONITORING -- do not chart) 1 each PRN DAILY PRN MC SEE COMMENTS ; Start 07/04/17 at 09:45; Status UNV Active Scripts Active Xanax (Alprazolam) 0.5 Mg Tablet 0.5 Mg PO TID PRN LAST DOSE: 02/23/16 BEDTIME NEXT DOSE: 02/24/16 BEDTIME Flomax (Tamsulosin Hcl) 0.4 Mg Cap.er.24h 0.4 Mg PO QHS Reported Metoprolol Succinate ( Xl ) (Metoprolol Succinate) 100 Mg Tab.er.24h 100 BID Pantoprazole Sodium 40 Mg Tablet.dr 40 BID Plavix (Clopidogrel Bisulfate) 75 Mg Tablet 75 DAILY Losartan Potassium 100 Mg Tablet 100 DAILY Furosemide 80 Mg Tablet 80 BID Hydralazine Hcl 50 Mg Tablet 50 TID Hydrocodone-Apap 5-325 (Hydrocodone Bit/Acetaminophen) 1 Each Tablet 1 Tab PO PRN Q6HRS PRN Nephro-Chilo Tablet (Folic Acid/Vitamin B Comp W-C) 0.8 Mg Tablet 1 Tab PO DAILY Paroxetine Hcl 20 Mg Tablet 40 Mg PO DAILY Tums (Calcium Carbonate) 200 Mg Tab.chew 800 Mg PO TIDAC Omeprazole Magnesium 20 Mg Capsule.dr 20 Mg PO DAILY Vitals/I & O Vital Sign - Last 24 Hours 07/03/17 07/03/17 07/03/17 07/03/17 12:33 12:34 12:45 13:00 Pulse 70 61 59 B/P (MAP) 144/76 149/79 (102) 140/74 (96) Pulse Ox 100 100 100 O2 Delivery Nasal Cannula Nasal Cannula Nasal Cannula O2 Flow Rate 4.0 4.0 4.0 07/03/17 07/03/17 07/03/17 07/03/17 13:30 13:34 14:44 15:00 Temp 97.0 97.0 Pulse 59 61 65 Resp 20 B/P (MAP) 123/79 (94) 148/68 127/66 (86) Pulse Ox 98 100 98 O2 Delivery Nasal Cannula Nasal Cannula Nasal Cannula O2 Flow Rate 4.0 4.0 4.0 07/03/17 07/03/17 07/03/17 07/03/17 19:40 20:00 20:31 20:32 Temp 97.5 97.5 Pulse 59 59 59 Resp 18 B/P (MAP) 144/73 (96) 144/73 144/73 Pulse Ox 98 O2 Delivery Nasal Cannula Nasal Cannula O2 Flow Rate 5.0 3.0 07/03/17 07/04/17 07/04/17 07/04/17 23:40 03:35 07:15 07:32 Temp 97.5 98.1 97.4 97.5 98.1 97.4 Pulse 61 60 61 Resp 17 18 18 B/P (MAP) 142/69 (93) 146/75 (98) 145/44 (77) Pulse Ox 97 97 96 O2 Delivery Nasal Cannula Nasal Cannula Nasal Cannula Room Air O2 Flow Rate 5.0 5.0 5.0 07/04/17 07/04/17 07/04/17 08:16 08:17 08:18 Pulse 61 61 61 B/P (MAP) 145/44 145/44 145/44 Intake and Output 07/03/17 07/03/17 07/04/17 15:00 23:00 07:00 Intake Total 120 ml 100 ml Output Total 0 ml Balance 120 ml 100 ml ESTEFANÍA MANZO MD Jul 04, 2017 12:31
[2017-07-04] MEDS ORDERED: HEPARIN PF 500 UNIT/5 ML DISP.SYRIN. IV ONE (14:45)
[2017-07-04 15:00] VITALS: BP 157/59
--- NOTE | 2017-07-05 06:29 | EKG ---
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
== END 2017-07-04 15:20 | disposition home or self-care (01) | DRG 205 ==
LOC: ER 21:32 → 1 WEST ICU 22:40 → 2 NORTH 07-02 08:15
PROVIDERS: ADMIT Internal Medicine; ATTEND Internal Medicine
PROC: 5A1D60Z (ICD-10-PCS; 2017-07-02)
PROC: B41F1ZZ Fluoroscopy of Right Lower Extremity Arteries using Low Osmolar Contrast (ICD-10-PCS; principal; 2017-07-03)
DX: M94.0 Chondrocostal junction syndrome [Tietze] (principal); K85.90 Acute pancreatitis without necrosis or infection, unspecified; I13.2 Hypertensive heart and chronic kidney disease with heart failure and with stage 5 chronic kidney disease, or end stage renal disease; E11.51 Type 2 diabetes mellitus with diabetic peripheral angiopathy without gangrene; E11.22 Type 2 diabetes mellitus with diabetic chronic kidney disease; N18.6 End stage renal disease; I50.30 Unspecified diastolic (congestive) heart failure; I48.91 Unspecified atrial fibrillation; E21.3 Hyperparathyroidism, unspecified; E78.00 Pure hypercholesterolemia, unspecified; F32.9 Major depressive disorder, single episode, unspecified; F41.9 Anxiety disorder, unspecified; I70.211 Atherosclerosis of native arteries of extremities with intermittent claudication, right leg; Z96.1 Presence of intraocular lens; I25.10 Atherosclerotic heart disease of native coronary artery without angina pectoris; K21.9 Gastro-esophageal reflux disease without esophagitis; Z82.3 Family history of stroke; Z83.3 Family history of diabetes mellitus; Z85.51 Personal history of malignant neoplasm of bladder; Z90.49 Acquired absence of other specified parts of digestive tract; Z91.11 Patient's noncompliance with dietary regimen; Z95.5 Presence of coronary angioplasty implant and graft; Z99.2 Dependence on renal dialysis; I25.2 Old myocardial infarction; Z80.9 Family history of malignant neoplasm, unspecified; Z95.1 Presence of aortocoronary bypass graft; Z88.6 Allergy status to analgesic agent
CPT/HCPCS: 36246; 36415; 71010; 75625; 75710; 76937; 80048; 80053; 80069; 83690; 83735; 83880; 84100; 84484; 85018; 85025; 85610; 85730; 87641; 93005; 96374; 99152; 99153; 99155; C1760; C1769; C1892; C1894; G0269; J0881; J1200; J1644; J2250; J2270; J2405; J3010; 99285-25

== ENCOUNTER 2017-07-09 02:09 | Inpatient (IN) | payer MEDICARE ==
[~2017-07-09] VITALS: Ht 170.2 cm; Wt 75.0 kg
[2017-07-09 04:00] VITALS: BP 93/60
[2017-07-09] MEDS ORDERED: METO100T2 PO (05:33)
[2017-07-09] MEDS: ALPRAZolam 0.5 MG TABLET PO PRN ×2 (06:01→11:53)
[2017-07-09] MEDS: HYDROcodone/APAP 5/325MG 1 TAB TABLET PO PRN ×2 (06:06→11:53)
[2017-07-09] MEDS ORDERED: DIALYSIS PATIENT. MC PRN ×3 (06:15→14:45)
[2017-07-09 07:00] VITALS: BP 98/66
[2017-07-09] MEDS: CALCIUM CARBONATE 500 MG TAB.CHEW PO SCH ×3 (08:26→15:32)
[2017-07-09] MEDS: PANTOPRAZOLE 40 MG TABLET.DR. PO SCH ×2 (08:27→15:32)
[2017-07-09] MEDS: FUROSEMIDE 80 MG TABLET. PO SCH ×2 (08:27→15:32)
[2017-07-09] MEDS ORDERED: LOSARTAN POTASSIUM 50 MG TABLET. PO SCH (09:00)
[2017-07-09] MEDS ORDERED: METOPROLOL TART IMMED RELEASE 50 MG TABLET. PO SCH (09:00)
[2017-07-09] MEDS ORDERED: OMEPRAZOLE MAGNESIUM 20 MG PO SCH (09:00)
[2017-07-09] MEDS ORDERED: PARoxetine 20 MG TABLET PO SCH (09:00)
[2017-07-09] MEDS ORDERED: FOLIC/VIT B COMP W-C (RENAL) TABLET. PO SCH (09:00)
[2017-07-09] MEDS ORDERED: CLOPIDOGREL BISULFATE 75 MG TABLET PO SCH (09:00)
[2017-07-09 11:00] VITALS: BP 99/67
--- NOTE | 2017-07-09 11:18 | PDOC2 ---
CONSULT Date of Consult Date of Consult DATE: 07/09/17 TIME: 11:15 Reason for Consult Reason for Consult: HIGH K, ESRD Referring Physician Referring Physician: ROBINA Identification/Chief Complaint Chief Complaint SOB Problems: Source Source: Chart review, Patient History of Present Illness Reason for Visit: THIS IS A 57 YR OLD ADMITTED WITH SOB. PRESENTED TO [facility] LATE LAST NIGHT EARLY THIS AM WITH SOB. HE HAS ESRD AND IS ON OP HD ON TTS. HE HAS EPISODIC SOB MOSTLY DUE TO ANXIETY. LABS SHOWED HYPERKALEMIA AND LABS OTHERWISE C/W HIS ESRD Past Medical History Cardiovascular: CAD, HTN, [place] Pulmonary: Other GI: Constipation, GERD, Other Heme/Onc: Anemia NOS Psych: Depression Renal/: Chronic renal failure, Other Endocrine: Diabetes, Hyperparathyroidism Past Surgical History Past Surgical History: Appendectomy, Cholecystectomy, Other Family History Family History: Cancer, Diabetes, Kidney Disease, Stroke Social History ALCOHOL: none Drugs: None Lives: with Family Domestic Violence: Neg Current Medications Current Medications Current Medications Alprazolam (Xanax) 0.5 mg PRN TID PRN PO ANXIETY / AGITATION Last administered on 07/09/17 06:01; Start 07/09/17 at 05:30 Calcium Carbonate/ Glycine (Tums) 500 mg TIDAC PO Last administered on 08:26; Start 07/09/17 at 07:30 Clopidogrel Bisulfate (Plavix) 75 mg DAILY PO Last administered on 07/09/17 08 :27; Start 07/09/17 at 09:00 Vitamin B Complex/ Vitamin C (Frances-Chilo) 1 tab DAILY PO Last administered on 08:27; Start 07/09/17 at 09:00 Furosemide (Lasix) 80 mg BID94 PO ; Start 07/09/17 at 09:00 Hydralazine HCl (Apresoline) 50 mg TID PO ; Start 07/09/17 at 09:00 Acetaminophen/ Hydrocodone Bitart (Lortab 5/325) 1 tab PRN Q6HRS PRN PO MODERATE PAIN Last administered on 07/09/17 06:06; Start 07/09/17 at 05:30 Metoprolol Tartrate (Lopressor) 100 mg BID PO ; Start 07/09/17 at 09:00 Pantoprazole Sodium (Protonix) 40 mg BIDAC PO Last administered on 07/09/17 08 :27; Start 07/09/17 at 07:30 Paroxetine HCl (Paxil) 40 mg DAILY PO Last administered on 07/09/17 08:27; Start 07/09/17 at 09:00 Tamsulosin HCl (Flomax) 0.4 mg QHS PO ; Start 07/09/17 at 21:00 Losartan Potassium (Cozaar) 100 mg DAILY PO ; Start 07/09/17 at 09:00 Non-Formulary Medication 20 mg DAILY PO ; Start 07/09/17 at 09:00; Status UNV Info (PHARMACY MONITORING -- do not chart) 1 each PRN DAILY PRN MC SEE COMMENTS ; Start 07/09/17 at 06:15 Active Scripts Active Xanax (Alprazolam) 0.5 Mg Tablet 0.5 Mg PO TID PRN LAST DOSE: 02/23/16 BEDTIME NEXT DOSE: 02/24/16 BEDTIME Flomax (Tamsulosin Hcl) 0.4 Mg Cap.er.24h 0.4 Mg PO QHS Reported Metoprolol Tartrate 100 Mg Tablet 1 Tab PO BID Pantoprazole Sodium 40 Mg Tablet.dr 40 BID Plavix (Clopidogrel Bisulfate) 75 Mg Tablet 75 DAILY Losartan Potassium 100 Mg Tablet 100 DAILY Furosemide 80 Mg Tablet 80 BID Hydralazine Hcl 50 Mg Tablet 50 TID Hydrocodone-Apap 5-325 (Hydrocodone Bit/Acetaminophen) 1 Each Tablet 1 Tab PO PRN Q6HRS PRN Nephro-Chilo Tablet (Folic Acid/Vitamin B Comp W-C) 0.8 Mg Tablet 1 Tab PO DAILY Paroxetine Hcl 20 Mg Tablet 40 Mg PO DAILY Tums (Calcium Carbonate) 200 Mg Tab.chew 800 Mg PO TIDAC Omeprazole Magnesium 20 Mg Capsule.dr 20 Mg PO DAILY Allergies Allergies: Coded Allergies: aspirin (Verified Allergy, Intermediate, 04/16/17) ROS General: YES: Fatigue, Malaise, Appetite PSYCHOLOGICAL ROS: YES: Anxiety Eyes: Yes Decreased vision HEENT: YES: Heacaches Respiratory: YES: Cough, Shortness of breath Cardiovascular: yes Orthopnea, yes Paroxysmal Noc. Dyspnea Gastrointestinal: Yes Constipation Genitourinary: YES Other (ANURIA) Musculoskeletal: Yes Muscular Weakness Skin: Yes Dry Skin Physical Exam General: Alert, Oriented X3, Cooperative, No acute distress HEENT: Atraumatic, PERRLA, EOMI, Mucous membr. moist/pink Lungs: Clear to auscultation, Normal air movement Heart: Regular rate, Normal S1, Normal S2 Abdomen: Normal bowel sounds, Soft, No tenderness Extremities: No clubbing Neuro: Normal speech, Sensation intact Psych/Mental Status: Mental status NL, Mood NL MUSCULOSKELETAL: No joint tenderness, No deformity, No swelling Vitals VITALS Vital Signs Date Time Temp Pulse Resp B/P (MAP) Pulse Ox O2 Delivery O2 Flow Rate FiO2 07/09/17 08:28 73 93/60 07/09/17 07:58 Nasal Cannula 2.0 07/09/17 07:11 18 96 07/09/17 07:00 97.3 97.3 Assessment/Plan Assessment/Plan IMP HYPERKALEMIA ANXIETY ESRD ANEMIA DM II HTN PLAN HD TODAY UF TO DW JAYDE CONTRERAS MD Jul 09, 2017 11:18
[2017-07-09 11:54] VITALS: BP 99/67
--- NOTE | 2017-07-09 12:07 | PDOC ---
PROGRESS NOTES Chief Complaint Chief Complaint ESRD Elevated K+ History of Present Illness History of Present Illness Feels unwell. C/O dizziness. C/O hyperkalemia Vitals Vitals Vital Signs Date Time Temp Pulse Resp B/P (MAP) Pulse Ox O2 Delivery O2 Flow Rate FiO2 07/09/17 11:54 68 99/67 07/09/17 11:53 20 95 Nasal Cannula 2.0 07/09/17 11:00 97.5 97.5 Physical Exam General: Alert, Oriented X3, Cooperative, No acute distress Heart: Regular rate, No murmurs Lungs: Clear, Other (No acute respiratory distress) Abdomen: Normal bowel sounds, Soft, No tenderness Extremities: No clubbing, No edema Skin: No rashes, No significant lesion Review of Systems Review of Systems C/O hunger C/O weakness Assessment and Plan Assessmemt and Plan ESRD Hyperkalemia: dialysis Anxiety: reassure pt. Continue to follow Anemia: monitor blood levels DMII: continue to monitor HTN: monitor Problems: Comment Review of Relevant I have reviewed the following items dionte (where applicable) has been applied. Medications Current Medications Alprazolam (Xanax) 0.5 mg PRN TID PRN PO ANXIETY / AGITATION Last administered on 07/09/17 11:53; Start 07/09/17 at 05:30 Calcium Carbonate/ Glycine (Tums) 500 mg TIDAC PO Last administered on 11:54; Start 07/09/17 at 07:30 Clopidogrel Bisulfate (Plavix) 75 mg DAILY PO Last administered on 07/09/17 08 :27; Start 07/09/17 at 09:00 Vitamin B Complex/ Vitamin C (Frances-Chilo) 1 tab DAILY PO Last administered on 08:27; Start 07/09/17 at 09:00 Furosemide (Lasix) 80 mg BID94 PO ; Start 07/09/17 at 09:00 Hydralazine HCl (Apresoline) 50 mg TID PO ; Start 07/09/17 at 09:00 Acetaminophen/ Hydrocodone Bitart (Lortab 5/325) 1 tab PRN Q6HRS PRN PO MODERATE PAIN Last administered on 07/09/17 11:53; Start 07/09/17 at 05:30 Metoprolol Tartrate (Lopressor) 100 mg BID PO ; Start 07/09/17 at 09:00 Pantoprazole Sodium (Protonix) 40 mg BIDAC PO Last administered on 07/09/17 08 :27; Start 07/09/17 at 07:30 Paroxetine HCl (Paxil) 40 mg DAILY PO Last administered on 07/09/17 08:27; Start 07/09/17 at 09:00 Tamsulosin HCl (Flomax) 0.4 mg QHS PO ; Start 07/09/17 at 21:00 Losartan Potassium (Cozaar) 100 mg DAILY PO ; Start 07/09/17 at 09:00 Non-Formulary Medication 20 mg DAILY PO ; Start 07/09/17 at 09:00; Status UNV Info (PHARMACY MONITORING -- do not chart) 1 each PRN DAILY PRN MC SEE COMMENTS ; Start 07/09/17 at 06:15 Darbepoetin Percy (Aranesp) 60 mcg WEEKLYHS SQ ; Start 07/09/17 at 21:00 Active Scripts Active Xanax (Alprazolam) 0.5 Mg Tablet 0.5 Mg PO TID PRN LAST DOSE: 02/23/16 BEDTIME NEXT DOSE: 02/24/16 BEDTIME Flomax (Tamsulosin Hcl) 0.4 Mg Cap.er.24h 0.4 Mg PO QHS Reported Metoprolol Tartrate 100 Mg Tablet 1 Tab PO BID Pantoprazole Sodium 40 Mg Tablet.dr 40 BID Plavix (Clopidogrel Bisulfate) 75 Mg Tablet 75 DAILY Losartan Potassium 100 Mg Tablet 100 DAILY Furosemide 80 Mg Tablet 80 BID Hydralazine Hcl 50 Mg Tablet 50 TID Hydrocodone-Apap 5-325 (Hydrocodone Bit/Acetaminophen) 1 Each Tablet 1 Tab PO PRN Q6HRS PRN Nephro-Chilo Tablet (Folic Acid/Vitamin B Comp W-C) 0.8 Mg Tablet 1 Tab PO DAILY Paroxetine Hcl 20 Mg Tablet 40 Mg PO DAILY Tums (Calcium Carbonate) 200 Mg Tab.chew 800 Mg PO TIDAC Omeprazole Magnesium 20 Mg Capsule.dr 20 Mg PO DAILY Vitals/I & O Vital Sign - Last 24 Hours 07/09/17 07/09/17 07/09/17 07/09/17 04:00 04:00 06:06 07:00 Temp 97.6 97.3 97.6 97.3 Pulse 73 68 Resp 21 20 18 B/P (MAP) 93/60 (71) 98/66 (77) Pulse Ox 96 97 O2 Delivery Nasal Cannula Nasal Cannula Nasal Cannula Room Air O2 Flow Rate 2.0 2.0 07/09/17 07/09/17 07/09/17 07/09/17 07:11 07:58 08:27 08:28 Pulse 73 73 Resp 18 B/P (MAP) 93/60 93/60 Pulse Ox 96 O2 Delivery Nasal Cannula Nasal Cannula O2 Flow Rate 2.0 2.0 07/09/17 07/09/17 07/09/17 07/09/17 08:28 11:00 11:53 11:54 Temp 97.5 97.5 Pulse 73 68 68 Resp 18 20 B/P (MAP) 93/60 99/67 (78) 99/67 Pulse Ox 95 95 O2 Delivery Nasal Cannula Nasal Cannula O2 Flow Rate 2.0 2.0 Intake and Output 07/08/17 07/08/17 07/09/17 15:00 23:00 07:00 Intake Total 0 ml Balance 0 ml YIN QUARLES III DO Jul 09, 2017 12:07
[2017-07-09] MEDS ORDERED: IV NORMAL SALINE 1000ML BAG 1,000 ML IV PRN (14:41)
[2017-07-09] MEDS ORDERED: diphenhydrAMINE 50 MG/ML VIAL IV PRN ×2 (14:45)
--- NOTE | 2017-07-09 20:23 | SSS ---
ADMIT DATE: 07/09/2017 CHIEF COMPLAINT: ____ hyperkalemia. HISTORY OF PRESENT ILLNESS: The patient is a pleasant middle-aged male well known to our service. He has end-stage renal disease, basically he became volume overloaded, he also with critical hyperkalemia. We admitted the patient overnight for observation. We dialyzed him today with plan to discharge. PAST MEDICAL HISTORY: CHF. ALLERGIES: None. FAMILY HISTORY: Diabetes. SOCIAL HISTORY: Does not drink, smoke or take drugs. MEDICATIONS: Reviewed, please refer to the MRAD. REVIEW OF SYSTEMS: GENERAL: No history of weight change, weakness or fevers. SKIN: No bruising, hair changes or rashes. EYES: No blurred, double or loss of vision. NOSE AND THROAT: No history of nosebleeds, hoarseness or sore throat. HEART: No history of palpitations, chest pain or shortness of breath on exertion. LUNGS: Denies cough, hemoptysis, wheezing or shortness of breath. GASTROINTESTINAL: Denies changes in appetite, nausea, vomiting, diarrhea or constipation. GENITOURINARY: No history of frequency, urgency, hesitancy or nocturia. NEUROLOGIC: Denies history of numbness, tingling, tremor or weakness. PSYCHIATRIC: No history of panic, anxiety or depression. ENDOCRINE: No history of heat or cold intolerance, polyuria or polydipsia. EXTREMITIES: Denies muscle weakness, joint pain, pain on walking or stiffness. PHYSICAL EXAMINATION: VITAL SIGNS: Stable. GENERAL: He is alert, cooperative. HEART: Normal S1, S2. LUNGS: Clear. ABDOMEN: Soft. EXTREMITIES: No edema. SKIN: No rashes. PSYCHIATRIC: He is stable. VASCULAR: Good capillary refill. ENDOCRINE: No thyromegaly. LYMPHATICS: No cervical nodes. HEMATOPOIETIC: No bruising. ASSESSMENT AND PLAN: Resolving volume overload with hyperkalemia. The patient will be discharged, follow up closely with his primary care doctor. DISPOSITION: Home. ACTIVITY: As tolerated. DIET: Low sodium. MEDICATIONS: Please see the MRAD. TOTAL TIME: 32 minutes. YIN QUARLES DO DR: EVELIN/alyson JOB#: [id number] / [id number]
[2017-07-09] MEDS ORDERED: TAMSULOSIN 0.4 MG CAP.ER.24H. PO SCH (21:00)
[2017-07-09] MEDS ORDERED: DARBEPOETIN ALFA 60 MCG/0.3 ML DISP.SYRIN. SQ SCH (21:00)
== END 2017-07-09 18:55 | disposition home or self-care (01) | DRG 640 ==
LOC: 5 SOUTH 04:12
PROVIDERS: ADMIT Internal Medicine; ATTEND Internal Medicine
PROC: 5A1D00Z (ICD-10-PCS; principal; 2017-07-09)
DX: E87.70 Fluid overload, unspecified (principal); N18.6 End stage renal disease; I13.2 Hypertensive heart and chronic kidney disease with heart failure and with stage 5 chronic kidney disease, or end stage renal disease; E11.22 Type 2 diabetes mellitus with diabetic chronic kidney disease; E87.5 Hyperkalemia; D64.9 Anemia, unspecified; F41.9 Anxiety disorder, unspecified; I25.10 Atherosclerotic heart disease of native coronary artery without angina pectoris; I50.9 Heart failure, unspecified; K21.9 Gastro-esophageal reflux disease without esophagitis; E21.3 Hyperparathyroidism, unspecified; F32.9 Major depressive disorder, single episode, unspecified; K59.00 Constipation, unspecified; I25.2 Old myocardial infarction; Z90.49 Acquired absence of other specified parts of digestive tract; Z90.89 Acquired absence of other organs; Z88.6 Allergy status to analgesic agent; Z82.3 Family history of stroke; Z83.3 Family history of diabetes mellitus; Z80.9 Family history of malignant neoplasm, unspecified; Z84.1 Family history of disorders of kidney and ureter
CPT/HCPCS: J1200

== ENCOUNTER 2017-09-02 19:53 | Inpatient (IN) | payer MEDICARE ==
[~2017-09-02] VITALS: Ht 170.2 cm; Wt 71.4 kg
[~2017-09-02 19:53] MED LIST changes: +METO-247; -METO100T11; -METO100T2 PO; +METO100T7 PO
[2017-09-02 20:43] LABS: BASO # 0.1 x10^3/uL (0.0-0.2); BASO % 1 % (0-3); EOS % 2 % (0-3); HEMATOCRIT 30.7 % (39.0-53.0); HEMOGLOBIN 10.7 g/dL (13.0-17.5); LYMPH % 12 % (24-48); MEAN CORPUSCULAR HEMOGLOBIN 31 pg (25-35); MEAN CORPUSCULAR HGB CONC 35 g/dL (31-37); MEAN CORPUSCULAR VOLUME 89 fL (79-100); MONO % 10 % (0-9); NEUT % 75 % (31-73); PLATELET COUNT 225 x10^3/uL (140-400); RED BLOOD COUNT 3.43 x10^6/uL (4.30-5.70); RED CELL DISTRIBUTION WIDTH 13.5 % (11.5-14.5); WHITE BLOOD COUNT 8.1 x10^3/uL (4.0-11.0)
[2017-09-02 20:51] LABS: PROTHROMBIN TIME PATIENT 12.8 SEC (11.7-14.0)
--- NOTE | 2017-09-02 20:56 | PHYS DOC ---
Past Medical History Past Medical History: A-Fib, Anxiety, Cancer, CHF, High Cholesterol, Hypertension, [place], Pancreatitis, Renal Disease, Renal Failure Additional Past Medical Histor: Ulcers, Cardiac Stent, polycystic disease, dialysis Past Surgical History: Appendectomy, Cholecystectomy, Coronary Bypass Surgery, Other Additional Past Surgical Histo: Dialysis shunt L) arm. cardiac stent, lens implants Smoking: Quit Greater Than 1 Year Alcohol Use: Sober Drug Use: None Adult General Chief Complaint Chief Complaint: CHEST PAIN HPI HPI Patient is a 61 year old male who presents with chest pain. He has end-stage renal disease and is on chronic hemodialysis. He is due for dialysis tomorrow on Saturday. He lives alone and is well known to our department at [facility]. He presents today directly here to [facility] [place] because "I know I need to be admitted to the Hospital". He states his chest pain started today at 1600 p.m. Left-sided sharp goes into his shoulder. Also has some heartburn. He states he's had cramping in all of his muscles. Has not missed his dialysis. He was here in June for hyperkalemia requiring emergent dialysis. His last travel was to [place] where his mother had and he returned from there in May 2017. Review of Systems Review of Systems Constitutional: Denies fever or chills Eyes: Denies change in visual acuity, redness, or eye pain HENT: Denies nasal congestion or sore throat Respiratory: Denies cough or shortness of breath Cardiovascular: POS chest pain GI: Denies abdominal pain, POS nausea, Denies vomiting, bloody stools or diarrhea Musculoskeletal: Denies back pain or joint pain; POS diffuse muscle cramping. Integument: Denies rash or skin lesions Neurologic: Denies headache, focal weakness or sensory changes Current Medications Current Medications Current Medications Medications (Trade) Dose Ordered Sig/Cirilo Start Time Stop Time Status Last Admin Dose Admin Albuterol Sulfate (Ventolin Neb Soln) 2.5 mg 1X ONCE 09/02/17 22:00 09/02/17 22:01 DC 09/02/17 21:35 2.5 MG Dextrose (Dextrose 50%-Water Syringe) 25 gm 1X ONCE 09/02/17 23:00 09/02/17 23:01 DC 09/02/17 22:29 25 GM Fentanyl Citrate (Fentanyl 2ml Vial) 50 mcg PRN Q1HR PRN 09/02/17 22:00 09/03/17 21:59 Insulin Human Regular (NovoLIN R VIAL) 10 unit 1X ONCE 09/02/17 22:00 09/02/17 22:01 DC 09/02/17 21:34 10 UNIT Ondansetron HCl (Zofran) 4 mg PRN Q8HRS PRN 09/02/17 22:00 09/03/17 21:59 Sodium Polystyrene Sulfonate (Kayexalate) 60 gm 1X ONCE 09/02/17 22:00 09/02/17 22:01 DC 09/02/17 23:07 60 GM Allergies Allergies Allergies Coded Allergies Type Severity Reaction Last Updated Verified aspirin Allergy Intermediate 04/16/17 Yes Physical Exam Physical Exam Constitutional: Well developed, well nourished, no acute distress, non-toxic appearance. HENT: Normocephalic, atraumatic, bilateral external ears normal, oropharynx moist, no oral exudates, nose normal. Eyes: PERRLA, EOMI, conjunctiva normal, no discharge. Neck: Normal range of motion, no tenderness, supple, no stridor. Cardiovascular:Heart rate regular rhythm, no murmur Lungs & Thorax: Bilateral breath sounds clear to auscultation; no rales. Abdomen: Bowel sounds normal, soft, no tenderness, no masses, no pulsatile masses. Skin: Warm, dry, no erythema, no rash. Back: No tenderness, no CVA tenderness. Extremities: No tenderness, no cyanosis, no clubbing, ROM intact, no edema. Left forearm shunt with good thrill. Neurologic: Alert and oriented X 3, normal motor function, normal sensory function, no focal deficits noted. Psychologic: Affect normal, judgement normal, mood normal. Current Patient Data Vital Signs Vital Signs Date Time Temp Pulse Resp B/P (MAP) Pulse Ox O2 Delivery O2 Flow Rate FiO2 09/02/17 22:00 80 20 172/79 (110) 98 Room Air 09/02/17 20:12 97.8 97.8 Lab Values Laboratory Tests Test 09/02/17 20:30 09/02/17 22:20 White Blood Count 8.1 x10^3/uL (4.0-11.0) Red Blood Count 3.43 x10^6/uL (4.30-5.70) L Hemoglobin 10.7 g/dL (13.0-17.5) L Hematocrit 30.7 % (39.0-53.0) L Mean Corpuscular Volume 89 fL (79-100) Mean Corpuscular Hemoglobin 31 pg (25-35) Mean Corpuscular Hemoglobin Concent 35 g/dL (31-37) Red Cell Distribution Width 13.5 % (11.5-14.5) Platelet Count 225 x10^3/uL (140-400) Neutrophils (%) (Auto) 75 % (31-73) H Lymphocytes (%) (Auto) 12 % (24-48) L Monocytes (%) (Auto) 10 % (0-9) H Eosinophils (%) (Auto) 2 % (0-3) Basophils (%) (Auto) 1 % (0-3) Neutrophils # (Auto) 6.0 x10^3uL (1.8-7.7) Lymphocytes # (Auto) 1.0 x10^3/uL (1.0-4.8) Monocytes # (Auto) 0.8 x10^3/uL (0.0-1.1) Eosinophils # (Auto) 0.2 x10^3/uL (0.0-0.7) Basophils # (Auto) 0.1 x10^3/uL (0.0-0.2) Prothrombin Time 12.8 SEC (11.7-14.0) Prothrombin Time INR 1.0 (0.8-1.1) Sodium Level 134 mmol/L (136-145) L Potassium Level 6.8 mmol/L (3.5-5.1) *H Chloride Level 93 mmol/L (98-107) L Carbon Dioxide Level 23 mmol/L (21-32) Anion Gap 18 (6-14) H Blood Urea Nitrogen 104 mg/dL (8-26) H Creatinine 12.0 mg/dL (0.7-1.3) H Estimated GFR (Cockcroft-Gault) 4.3 BUN/Creatinine Ratio 9 (6-20) Glucose Level 93 mg/dL (70-99) Calcium Level 7.0 mg/dL (8.5-10.1) L Magnesium Level 2.4 mg/dL (1.8-2.4) Total Bilirubin 0.4 mg/dL (0.2-1.0) Aspartate Amino Transferase (AST) 20 U/L (15-37) Alanine Aminotransferase (ALT) 16 U/L (16-63) Alkaline Phosphatase 78 U/L (46-116) Creatine Kinase 225 U/L (39-308) Creatine Kinase MB (Mass) 2.2 ng/mL (0.0-3.6) Creatine Kinase MB Relative Index 1.0 % (0-4) Troponin I Quantitative 0.038 ng/mL (0.000-0.055) ED-Ugl-O-Type Natriuretic Peptide 63795 pg/mL (0-124) H Total Protein 7.6 g/dL (6.4-8.2) Albumin 3.7 g/dL (3.4-5.0) Albumin/Globulin Ratio 0.9 (1.0-1.7) L Lipase 570 U/L (73-393) H Glucose (Fingerstick) 23 mg/dL (70-99) *L Laboratory Tests 09/02/17 20:30 Laboratory Tests 09/02/17 20:30 EKG EKG EKG interpreted by myself at 2006 p.m. shows sinus rhythm, rate of 71, nonspecific ST changes. Increased T's in the anterior leads. Compared to prior the T waves are more pronounced. Radiology/Procedures Radiology/Procedures Has x-ray interpreted by myself at 2054 PM shows port in place. Enlarged cardiac silhouette. Sternal wires noted. No pleural effusion, minimal increase in vascularity. Course & Med Decision Making Course & Med Decision Making Differential diagnosis for chest pain includes but is not limited to: Pericarditis, myocarditis, endocarditis, pneumothorax, pneumonia, aortic dissection, esophageal spasm, esophagitis, peptic ulcer disease, acute coronary syndrome, mediastinitis, Boerhaave syndrome, musculoskeletal chest wall pain, costochondritis, intercostal strain, rib fracture, pulmonary contusion, pneumonitis, pleural effusion, pericardial effusion, pericardial tamponode, and pleurisy. Lab called at 2114 PM with K 6.8. Albuterol treatment dose, insulin with D50 dosed for emergent management. I called Dr. Gonzalez, nephrology at 20 1:15 PM he returned the phone call at 21:30 PM at this point he states a week and given 60 g of Kayexalate and he will be dialyzed in the morning. I will repeat the potassium level. Will be admitted to internal medicine in ICU tonight was closely.Dr Angel contacted for admission. NOTE: glucose did drop despite initial IV glucose; repeated and patient given food (he missed dinner). I spent approximately 30 minutes working and engaged directly in the patient care providing critical care evaluation this includes but not limited to time spent engaged in work directly related to the individual patients care. I spent time at the bedside, reviewing test results, discussing the case with staff, documenting the medical record and time spent with EMS discussing specific treatment issues when the patient presented and during his evaluation. This includes any discussion and updates with family members and/or patient. I have spoken with the patient and/or caregivers. I have explained the patient' s condition, diagnosis and treatment plan based on the information available to me at this time. I have answered the patient's and/or caregiver's questions and addressed any concerns. The patient and/or caregivers have as good an understanding of the patient's diagnosis, condition and treatment plan as can be expected at this point. The patient has been stabilized within the capability of the emergency department. The patient will be transported for further care and management or will be moved to an observation or inpatient service. I have communicated with the staff or medical practitioner taking over this patient's care. I have assessed this patient clinically and believe that their condition requires admission to the hospital. After consulting the admitting physician about this case, they have asked that I admit this patient to their service as an inpatient based on the clinical presentation and my impression. Dragon Disclaimer Dragon Disclaimer This electronic medical record was generated, in whole or in part, using a voice recognition dictation system. Departure Departure Impression: Primary Impression: Hyperkalemia Additional Impressions: End stage renal disease Chest pain Disposition: 09 ADMITTED INPATIENT Admitting Physician: Nevin Angel Condition: CRITICAL Referrals: NO PCP (PCP) Problem Qualifiers Additional Impressions: Chest pain Chest pain type: unspecified Qualified Codes: R07.9 - Chest pain, unspecified JAIR WHITING MD Sep 02, 2017 20:56
[2017-09-02 20:59] LABS: MAGNESIUM 2.4 mg/dL (1.8-2.4)
[2017-09-02 21:00] LABS: ALBUMIN 3.7 g/dL (3.4-5.0); ALBUMIN/GLOBULIN RATIO 0.9 (1.0-1.7); GFR 4.3; TOTAL BILIRUBIN 0.4 mg/dL (0.2-1.0); TOTAL PROTEIN 7.6 g/dL (6.4-8.2)
[2017-09-02 21:08] LABS: CKMB MASS 2.2 ng/mL (0.0-3.6); POTASSIUM 6.8 mmol/L (3.5-5.1)
[2017-09-02] MEDS ORDERED: DEXTROSE 50% 25 GM / 50ML DISP.SYRIN. IV ONE ×2 (22:00→23:00)
[2017-09-02] MEDS ORDERED: fentaNYL PF VIAL 100 MCG/2 ML VIAL IV ONE (22:00)
[2017-09-02] MEDS ORDERED: ONDANSETRON PF 4 MG/2 ML VIAL. IV ONE (22:00)
[2017-09-02] MEDS ORDERED: fentaNYL PF VIAL 100 MCG/2 ML VIAL IV PRN (22:00)
[2017-09-02] MEDS ORDERED: ONDANSETRON PF 4 MG/2 ML VIAL. IV PRN (22:00)
[2017-09-02] MEDS ORDERED: ALBUTEROL SULFATE 2.5 MG/3 ML NEBU. NEB ONE (22:00)
[2017-09-02] MEDS ORDERED: SODIUM POLYSTYRENE SULFONATE 15 GM/60 ML ORAL.SUSP. PO ONE (22:00)
[2017-09-02] MEDS ORDERED: INSULIN REGULAR 100 UNIT/ML 10ML VIAL. IV ONE (22:00)
--- NOTE | 2017-09-02 23:13 | PDOC1 ---
History and Physical Date of Admission Date of Admission DATE: 09/02/17 TIME: 23:12 Identification/Chief Complaint Chief Complaint chest pain Problems: Source Source: Chart review, Patient History of Present Illness History of Present Illness Jamar is a 61 year old male who presents with chest pain. ESRD, sched for HD [facility] outpatient He lives alone and is well known to this team acute chest pain today 4pm pain improved, was 8/10, now 4 pain to shoulder, not worse with movement mult prior admits he reports complaince with HD Past Medical History Cardiovascular: CAD, HTN, [place] Pulmonary: Other GI: Constipation, GERD, Other Heme/Onc: Anemia NOS Psych: Depression Renal/: Chronic renal failure, Other Endocrine: Diabetes, Hyperparathyroidism Past Surgical History Past Surgical History: Appendectomy, Cholecystectomy, Other Family History Family History: Cancer, Diabetes, Kidney Disease, Stroke Social History Smoke: No ALCOHOL: none Drugs: None Current Problem List Problem List Problems Medical Problems: (1) Chest pain Status: Acute (2) End stage renal disease Status: Acute (3) Hyperkalemia Status: Acute Problems: Current Medications Current Medications Current Medications Albuterol Sulfate (Ventolin Neb Soln) 2.5 mg 1X ONCE NEB Last administered on 09/02/17 21:35; Start 09/02/17 at 22:00; Stop 09/02/17 at 22:01; Status DC Insulin Human Regular (NovoLIN R VIAL) 10 unit 1X ONCE IV Last administered on 09/02/17 21:34; Start 09/02/17 at 22:00; Stop 09/02/17 at 22:01; Status DC Dextrose (Dextrose 50%-Water Syringe) 12.5 gm 1X ONCE IV Last administered on 09/02/17 21:35; Start 09/02/17 at 22:00; Stop 09/02/17 at 22:01; Status DC Fentanyl Citrate (Fentanyl 2ml Vial) 50 mcg 1X ONCE IV Last administered on 21:39; Start 09/02/17 at 22:00; Stop 09/02/17 at 22:01; Status DC Sodium Polystyrene Sulfonate (Kayexalate) 60 gm 1X ONCE PO Last administered on 09/02/17 23:07; Start 09/02/17 at 22:00; Stop 09/02/17 at 22:01; Status DC Ondansetron HCl (Zofran) 4 mg 1X ONCE IV ; Start 09/02/17 at 22:00; Stop at 22:01; Status DC Ondansetron HCl (Zofran) 4 mg PRN Q8HRS PRN IV NAUSEA/VOMITING; Start at 22:00; Stop 09/03/17 at 21:59 Fentanyl Citrate (Fentanyl 2ml Vial) 50 mcg PRN Q1HR PRN IV SEVERE PAIN; Start 09/02/17 at 22:00; Stop 09/03/17 at 21:59 Dextrose (Dextrose 50%-Water Syringe) 25 gm 1X ONCE IV Last administered on t 22:29; Start 09/02/17 at 23:00; Stop 09/02/17 at 23:01; Status DC Active Scripts Active Xanax (Alprazolam) 0.5 Mg Tablet 0.5 Mg PO TID PRN LAST DOSE: 02/23/16 BEDTIME NEXT DOSE: 02/24/16 BEDTIME Flomax (Tamsulosin Hcl) 0.4 Mg Cap.er.24h 0.4 Mg PO QHS Reported Metoprolol Tartrate 100 Mg Tablet 1 Tab PO BID Pantoprazole Sodium 40 Mg Tablet.dr 40 BID Plavix (Clopidogrel Bisulfate) 75 Mg Tablet 75 DAILY Losartan Potassium 100 Mg Tablet 100 DAILY Furosemide 80 Mg Tablet 80 BID Hydralazine Hcl 50 Mg Tablet 50 TID Hydrocodone-Apap 5-325 (Hydrocodone Bit/Acetaminophen) 1 Each Tablet 1 Tab PO PRN Q6HRS PRN Nephro-Chilo Tablet (Folic Acid/Vitamin B Comp W-C) 0.8 Mg Tablet 1 Tab PO DAILY Paroxetine Hcl 20 Mg Tablet 40 Mg PO DAILY Tums (Calcium Carbonate) 200 Mg Tab.chew 800 Mg PO TIDAC Omeprazole Magnesium 20 Mg Capsule.dr 20 Mg PO DAILY Allergies Allergies: Coded Allergies: aspirin (Verified Allergy, Intermediate, 04/16/17) ROS General: YES: Fatigue, Malaise PSYCHOLOGICAL ROS: No: Anxiety, Behavioral Disorder, Concentration difficultie , Decreased libido, Depression, Disorientation, Hallucinations, Hostility, Irritablity, Memory difficulties, Mood Swings, Obsessive thoughts, Physical abuse, Sexual abuse, Sleep disturbances, Suicidal ideation, Other Eyes: Yes Other, No Blurry vision, No Decreased vision, No Double vision, No Dry eyes, No Excessive tearing, No Eye Pain, No Itchy Eyes, No Loss of vision, No Photophobia , No Scotomata, No Uses contacts, No Uses glasses HEENT: YES: Heacaches, No: Visual Changes, Hearing change, Nasal congestion, Nasal discharge, Oral lesions, Sinus pain, Sore Throat, Epistaxis, Sneezing, Snoring, Tinnitus, Vertigo, Vocal changes, Other Respiratory: No: Cough, Hemoptysis, Orthopnea, Pleuritic Pain, Shortness of breath, SOB with excertion, Sputum Changes, Stridor, Tachypnea, Wheezing, Other Cardiovascular: yes Chest Pain Gastrointestinal: No Nausea, No Vomiting, No Abdominal Pain, No Diarrhea, No Constipation, No Melena, No Hematochezia, No Other Genitourinary: No Dysuria, No Frequency, No Incontinence, No Hematuria, No Retention, No Discharge, No Urgency, No Pain, No Flank Pain, No Other, No , No , No , No , No , No , No Musculoskeletal: No Gait Disturbance, No Joint Pain, No Joint Stiffness, No Joint Swelling, No Muscle Pain, No Muscular Weakness, No Pain In:, No Swelling In:, No Other Neurological: No Behavorial Changes, No Bowel/Bladder ControlChng, No Confusion , No Dizziness, No Gait Disturbance, No Headaches, No Impaired Coord/balance, No Memory Loss, No Numbness/Tingling, No Seizures, No Speech Problems, No Tremors, No Visual Changes, No Weakness, No Other Skin: No Dry Skin, No Eczema, No Hair Changes, No Lumps, No Mole Changes, No Mottling, No Nail Changes, No Pruritus, No Rash, No Skin Lesion Changes, No Other, No Acne Physical Exam General: Oriented X3, Cooperative, No acute distress HEENT: Atraumatic, EOMI, Mucous membr. moist/pink Lungs: Clear to auscultation, Normal air movement Abdomen: Normal bowel sounds, Soft Extremities: No cyanosis, No edema Neuro: Normal speech, Normal tone, Sensation intact, Cranial nerves 3-12 NL Psych/Mental Status: Mood NL Vitals Vitals Vital Signs Date Time Temp Pulse Resp B/P (MAP) Pulse Ox O2 Delivery O2 Flow Rate FiO2 09/02/17 22:00 80 20 172/79 (110) 98 Room Air 09/02/17 20:12 97.8 97.8 Labs Labs Laboratory Tests Test 09/02/17 20:30 09/02/17 22:20 White Blood Count 8.1 x10^3/uL (4.0-11.0) Red Blood Count 3.43 x10^6/uL (4.30-5.70) Hemoglobin 10.7 g/dL (13.0-17.5) Hematocrit 30.7 % (39.0-53.0) Mean Corpuscular Volume 89 fL (79-100) Mean Corpuscular Hemoglobin 31 pg (25-35) Mean Corpuscular Hemoglobin Concent 35 g/dL (31-37) Red Cell Distribution Width 13.5 % (11.5-14.5) Platelet Count 225 x10^3/uL (140-400) Neutrophils (%) (Auto) 75 % (31-73) Lymphocytes (%) (Auto) 12 % (24-48) Monocytes (%) (Auto) 10 % (0-9) Eosinophils (%) (Auto) 2 % (0-3) Basophils (%) (Auto) 1 % (0-3) Neutrophils # (Auto) 6.0 x10^3uL (1.8-7.7) Lymphocytes # (Auto) 1.0 x10^3/uL (1.0-4.8) Monocytes # (Auto) 0.8 x10^3/uL (0.0-1.1) Eosinophils # (Auto) 0.2 x10^3/uL (0.0-0.7) Basophils # (Auto) 0.1 x10^3/uL (0.0-0.2) Prothrombin Time 12.8 SEC (11.7-14.0) Prothromb Time International Ratio 1.0 (0.8-1.1) Sodium Level 134 mmol/L (136-145) Potassium Level 6.8 mmol/L (3.5-5.1) Chloride Level 93 mmol/L (98-107) Carbon Dioxide Level 23 mmol/L (21-32) Anion Gap 18 (6-14) Blood Urea Nitrogen 104 mg/dL (8-26) Creatinine 12.0 mg/dL (0.7-1.3) Estimated GFR (Cockcroft-Gault) 4.3 BUN/Creatinine Ratio 9 (6-20) Glucose Level 93 mg/dL (70-99) Calcium Level 7.0 mg/dL (8.5-10.1) Magnesium Level 2.4 mg/dL (1.8-2.4) Total Bilirubin 0.4 mg/dL (0.2-1.0) Aspartate Amino Transf (AST/SGOT) 20 U/L (15-37) Alanine Aminotransferase (ALT/SGPT) 16 U/L (16-63) Alkaline Phosphatase 78 U/L (46-116) Creatine Kinase 225 U/L (39-308) Creatine Kinase MB (Mass) 2.2 ng/mL (0.0-3.6) Creatine Kinase MB Relative Index 1.0 % (0-4) Troponin I Quantitative 0.038 ng/mL (0.000-0.055) DA-Xoo-O-Type Natriuretic Peptide 96783 pg/mL (0-124) Total Protein 7.6 g/dL (6.4-8.2) Albumin 3.7 g/dL (3.4-5.0) Albumin/Globulin Ratio 0.9 (1.0-1.7) Lipase 570 U/L (73-393) Glucose (Fingerstick) 23 mg/dL (70-99) Laboratory Tests Test 09/02/17 20:30 09/02/17 22:20 White Blood Count 8.1 x10^3/uL (4.0-11.0) Red Blood Count 3.43 x10^6/uL (4.30-5.70) Hemoglobin 10.7 g/dL (13.0-17.5) Hematocrit 30.7 % (39.0-53.0) Mean Corpuscular Volume 89 fL (79-100) Mean Corpuscular Hemoglobin 31 pg (25-35) Mean Corpuscular Hemoglobin Concent 35 g/dL (31-37) Red Cell Distribution Width 13.5 % (11.5-14.5) Platelet Count 225 x10^3/uL (140-400) Neutrophils (%) (Auto) 75 % (31-73) Lymphocytes (%) (Auto) 12 % (24-48) Monocytes (%) (Auto) 10 % (0-9) Eosinophils (%) (Auto) 2 % (0-3) Basophils (%) (Auto) 1 % (0-3) Neutrophils # (Auto) 6.0 x10^3uL (1.8-7.7) Lymphocytes # (Auto) 1.0 x10^3/uL (1.0-4.8) Monocytes # (Auto) 0.8 x10^3/uL (0.0-1.1) Eosinophils # (Auto) 0.2 x10^3/uL (0.0-0.7) Basophils # (Auto) 0.1 x10^3/uL (0.0-0.2) Prothrombin Time 12.8 SEC (11.7-14.0) Prothromb Time International Ratio 1.0 (0.8-1.1) Sodium Level 134 mmol/L (136-145) Potassium Level 6.8 mmol/L (3.5-5.1) Chloride Level 93 mmol/L (98-107) Carbon Dioxide Level 23 mmol/L (21-32) Anion Gap 18 (6-14) Blood Urea Nitrogen 104 mg/dL (8-26) Creatinine 12.0 mg/dL (0.7-1.3) Estimated GFR (Cockcroft-Gault) 4.3 BUN/Creatinine Ratio 9 (6-20) Glucose Level 93 mg/dL (70-99) Calcium Level 7.0 mg/dL (8.5-10.1) Magnesium Level 2.4 mg/dL (1.8-2.4) Total Bilirubin 0.4 mg/dL (0.2-1.0) Aspartate Amino Transf (AST/SGOT) 20 U/L (15-37) Alanine Aminotransferase (ALT/SGPT) 16 U/L (16-63) Alkaline Phosphatase 78 U/L (46-116) Creatine Kinase 225 U/L (39-308) Creatine Kinase MB (Mass) 2.2 ng/mL (0.0-3.6) Creatine Kinase MB Relative Index 1.0 % (0-4) Troponin I Quantitative 0.038 ng/mL (0.000-0.055) PR-Lgr-Q-Type Natriuretic Peptide 69186 pg/mL (0-124) Total Protein 7.6 g/dL (6.4-8.2) Albumin 3.7 g/dL (3.4-5.0) Albumin/Globulin Ratio 0.9 (1.0-1.7) Lipase 570 U/L (73-393) Glucose (Fingerstick) 23 mg/dL (70-99) VTE Prophylaxis Ordered VTE Prophylaxis Devices: Yes VTE Pharmacological Prophylaxi: Yes Assessment/Plan Assessment/Plan hyperkalemia in ESRD ESRD on HD hypoglycemia from hyperK tretment protocol anxiety d.o at baseline CAD dm2, very responsive to insulin, hypoglycemia JANNA STALLWORTH MD Sep 02, 2017 23:13
[2017-09-03] VITALS (17 sets, daily range): BP systolic 122–171; BP diastolic 56–83
[2017-09-03] MEDS ORDERED: HYDROcodone/APAP 5/325MG 1 TAB TABLET PO PRN (01:15)
[2017-09-03] MEDS ORDERED: DEXTROSE 50% 25 GM / 50ML DISP.SYRIN. IV PRN (01:15)
[2017-09-03] MEDS: ALPRAZolam 0.5 MG TABLET PO PRN ×3 (01:27→23:24)
[2017-09-03 05:25] LABS: BASO # 0.1 x10^3/uL (0.0-0.2); BASO % 1 % (0-3); EOS % 2 % (0-3); HEMATOCRIT 28.4 % (39.0-53.0); LYMPH # 0.9 x10^3/uL (1.0-4.8); LYMPH % 12 % (24-48); MEAN CORPUSCULAR HEMOGLOBIN 31 pg (25-35); MEAN CORPUSCULAR HGB CONC 35 g/dL (31-37); MEAN CORPUSCULAR VOLUME 89 fL (79-100); MONO % 9 % (0-9); NEUT % 76 % (31-73); PLATELET COUNT 210 x10^3/uL (140-400); RED BLOOD COUNT 3.18 x10^6/uL (4.30-5.70); RED CELL DISTRIBUTION WIDTH 13.5 % (11.5-14.5); WHITE BLOOD COUNT 7.4 x10^3/uL (4.0-11.0)
[2017-09-03] MEDS ORDERED: IV NORMAL SALINE 1000ML BAG 1,000 ML IV PRN ×2 (06:10)
[2017-09-03] MEDS ORDERED: DIALYSIS PATIENT. MC PRN (06:15)
[2017-09-03 06:21] LABS: ALBUMIN 3.6 g/dL (3.4-5.0); CALCIUM 6.7 mg/dL (8.5-10.1); CREATININE 12.7 mg/dL (0.7-1.3); TOTAL BILIRUBIN 0.4 mg/dL (0.2-1.0); TOTAL PROTEIN 7.3 g/dL (6.4-8.2)
[2017-09-03 06:23] LABS: POTASSIUM 6.1 mmol/L (3.5-5.1)
[2017-09-03] MEDS ORDERED: diphenhydrAMINE 50 MG/ML VIAL IVP ONE (07:30)
--- NOTE | 2017-09-03 07:53 | RAD ---
Indication: Atraumatic chest pain. Technique: Upright portable chest radiograph was obtained. Comparison is from July 01, 2017. Findings: The lungs are clear. The heart is not enlarged. There is no heart failure. There is atheromatous disease in the thoracic aorta. Median sternotomy wires are noted. Port is noted. Leads overlie the patient. Impression: No acute thoracic findings.
--- NOTE | 2017-09-03 08:06 | PDOC2 ---
CONSULT Date of Consult Date of Consult DATE: 09/03/17 TIME: 08:01 Reason for Consult Reason for Consult: ESRD and ^K Referring Physician Referring Physician: Dr Angel Identification/Chief Complaint Chief Complaint CP and SOB Problems: Source Source: Chart review, Patient History of Present Illness Reason for Visit: as dictated Past Medical History Cardiovascular: CAD, HTN, [place] Pulmonary: Other GI: Constipation, GERD, Other Heme/Onc: Anemia NOS Psych: Depression Renal/: Chronic renal failure, Other Endocrine: Diabetes, Hyperparathyroidism Past Surgical History Past Surgical History: Appendectomy, Cholecystectomy, Other Family History Family History: Cancer, Diabetes, Kidney Disease, Stroke Social History No ALCOHOL: none Drugs: None Lives: with Family Domestic Violence: Neg Current Problem List Problem List Problems Medical Problems: (1) Chest pain Status: Acute (2) End stage renal disease Status: Acute (3) Hyperkalemia Status: Acute Current Medications Current Medications Current Medications Albuterol Sulfate (Ventolin Neb Soln) 2.5 mg 1X ONCE NEB Last administered on 09/02/17 21:35; Start 09/02/17 at 22:00; Stop 09/02/17 at 22:01; Status DC Insulin Human Regular (NovoLIN R VIAL) 10 unit 1X ONCE IV Last administered on 09/02/17 21:34; Start 09/02/17 at 22:00; Stop 09/02/17 at 22:01; Status DC Dextrose (Dextrose 50%-Water Syringe) 12.5 gm 1X ONCE IV Last administered on 09/02/17 21:35; Start 09/02/17 at 22:00; Stop 09/02/17 at 22:01; Status DC Fentanyl Citrate (Fentanyl 2ml Vial) 50 mcg 1X ONCE IV Last administered on 21:39; Start 09/02/17 at 22:00; Stop 09/02/17 at 22:01; Status DC Sodium Polystyrene Sulfonate (Kayexalate) 60 gm 1X ONCE PO Last administered on 09/02/17 23:07; Start 09/02/17 at 22:00; Stop 09/02/17 at 22:01; Status DC Ondansetron HCl (Zofran) 4 mg 1X ONCE IV Last administered on 09/03/17 00:12 ; Start 09/02/17 at 22:00; Stop 09/02/17 at 22:01; Status DC Ondansetron HCl (Zofran) 4 mg PRN Q8HRS PRN IV NAUSEA/VOMITING; Start at 22:00; Stop 09/03/17 at 21:59 Fentanyl Citrate (Fentanyl 2ml Vial) 50 mcg PRN Q1HR PRN IV SEVERE PAIN Last administered on 09/03/17 01:31; Start 09/02/17 at 22:00; Stop 09/03/17 at 21 :59 Dextrose (Dextrose 50%-Water Syringe) 25 gm 1X ONCE IV Last administered on 22:29; Start 09/02/17 at 23:00; Stop 09/02/17 at 23:01; Status DC Alprazolam (Xanax) 0.5 mg PRN TID PRN PO ANXIETY / AGITATION Last administered on 09/03/17 01:27; Start 09/03/17 at 01:15 Calcium Carbonate/ Glycine (Tums) 500 mg TIDAC PO ; Start 09/03/17 at 07:30 Clopidogrel Bisulfate (Plavix) 75 mg DAILY PO ; Start 09/03/17 at 09:00 Vitamin B Complex/ Vitamin C (Frances-Chilo) 1 tab DAILY PO ; Start 09/03/17 at 09: 00 Furosemide (Lasix) 80 mg BID94 PO ; Start 09/03/17 at 09:00 Hydralazine HCl (Apresoline) 50 mg TID PO ; Start 09/03/17 at 09:00 Acetaminophen/ Hydrocodone Bitart (Lortab 5/325) 1 tab PRN Q6HRS PRN PO SEVERE PAIN; Start 09/03/17 at 01:15 Pantoprazole Sodium (Protonix) 40 mg BIDAC PO ; Start 09/03/17 at 07:30 Paroxetine HCl (Paxil) 40 mg DAILY PO ; Start 09/03/17 at 09:00 Tamsulosin HCl (Flomax) 0.4 mg QHS PO ; Start 09/03/17 at 21:00 Metoprolol Tartrate (Lopressor) 100 mg BID PO ; Start 09/03/17 at 09:00 Non-Formulary Medication 20 mg DAILY PO ; Start 09/03/17 at 09:00; Status UNV Dextrose (Dextrose 50%-Water Syringe) 12.5 gm PRN Q15MIN PRN IV SEE COMMENTS; Start 09/03/17 at 01:15 Sodium Chloride 1,000 ml @ 1,000 mls/hr Q1H PRN IV hypotension; Start at 06:10; Stop 09/03/17 at 12:09 Sodium Chloride 1,000 ml @ 400 mls/hr Q2H30M PRN IV PATENCY; Start 09/03/17 at 06:10; Stop 09/03/17 at 18:09 Info (PHARMACY MONITORING -- do not chart) 1 each PRN DAILY PRN MC SEE COMMENTS ; Start 09/03/17 at 06:15 Diphenhydramine HCl (Benadryl) 50 mg 1X ONCE IVP Last administered on t 07:32; Start 09/03/17 at 07:30; Stop 09/03/17 at 07:31; Status DC Active Scripts Active Xanax (Alprazolam) 0.5 Mg Tablet 0.5 Mg PO TID PRN LAST DOSE: 02/23/16 BEDTIME NEXT DOSE: 02/24/16 BEDTIME Flomax (Tamsulosin Hcl) 0.4 Mg Cap.er.24h 0.4 Mg PO QHS Reported Metoprolol Tartrate 100 Mg Tablet 1 Tab PO BID Pantoprazole Sodium 40 Mg Tablet.dr 40 BID Plavix (Clopidogrel Bisulfate) 75 Mg Tablet 75 DAILY Losartan Potassium 100 Mg Tablet 100 DAILY Furosemide 80 Mg Tablet 80 BID Hydralazine Hcl 50 Mg Tablet 50 TID Hydrocodone-Apap 5-325 (Hydrocodone Bit/Acetaminophen) 1 Each Tablet 1 Tab PO PRN Q6HRS PRN Nephro-Chilo Tablet (Folic Acid/Vitamin B Comp W-C) 0.8 Mg Tablet 1 Tab PO DAILY Paroxetine Hcl 20 Mg Tablet 40 Mg PO DAILY Tums (Calcium Carbonate) 200 Mg Tab.chew 800 Mg PO TIDAC Omeprazole Magnesium 20 Mg Capsule.dr 20 Mg PO DAILY Allergies Allergies: Coded Allergies: aspirin (Verified Allergy, Intermediate, 04/16/17) ROS Review of System GEN: no Fevers no Chills EYES: no new Visual Complaints ENT: no EN Drainage no Hearing deficiets CVS: no Orthopnea + CP RESP: + SOB no FERNANDEZ GI: no Nausea no Vomiting : no Dysuria no Urgency HEME: no easy bruising no Palp Ly Nodes NEURO no Focal Weakness no Sz PSYCH: no Suicidal Ideation no Depression + Anxiety SKIN: no Rashes ENDO: no Polyuria or Polydipsia no Hot/Cold Intolerance MU SK: no Arthralgia no Myalgia Physical Exam Physical Exam General Appearance: Awake Alert Oriented x 3 In no Distress Eyes: VIsion Unchanged Conjunctiva Normal EN: No EN Drainage Mucous Memb. moist Neck: no JVD no JVP Supple no Thyromegaly CVS: S1 S2 + Murmur No Gallop No Rub no Edema Resp: no Rales no Rhonchi no Acc. Muscle use GI: BS +ve NO Bruit ? min epigastric Tender Non Distended : no CVA tenderness; no Suprapubic Tenderness SKIN: no Rashes Breast Exam deferred Mu.Sk: Adequate ROM no Muscle Atrophy Heme: Unable to palpate Obvious LAD no Splenomegaly NEURO: Good Strength and Tone Cranial Nerves II - XII grossly intact Psych: not obviously Depressed no Active hallucination Assessment & Plan ESRD: Seen on HD: sally well: Vitals: 121/65 83 93% RA RR: 22 Dialysis as below F 180 NR 3.5 Hrs 2 K 3.5 Ca 140 Na 35 HC03 Qb 350 + Qd 500+ Heparin 0 Units Uf to dry weight as tolerated May give 25-50 gms of 25% Albumin if needed to maintain Hemodynamic stability Treatment plan reviewed and discussed with service station equipment mechanic HypoCal - suspect due to sev ^^ed PHos - will check Phos, mag etc. ^ Ignacio with HD ^ed K - due to dietary non-compliance - anticipate improvement with HD Anemia: Epogen as ordered Transfuse with next HD as needed. HTN: Current BP meds reviewed. See orders for changes. Bone & Mineral: Follow phos and alter binder regimen as needed hypoglycemia after IV insulin for ^ed K - now better dietary non-compliance - pt has been educated on a renal diet on numerous occasions here and as OP but remains stubbornly unwilling to change his ways Discussed Plan of Care and prognosis etc. at length with pt - Compliance with diet, fluid and OP HD re-emphasized with pt Vital Signs Vital Signs Date Time Temp Pulse Resp B/P (MAP) Pulse Ox O2 Delivery O2 Flow Rate FiO2 09/03/17 06:00 69 12 147/56 (86) 96 Room Air 09/03/17 04:00 98.1 98.1 09/03/17 02:13 96.0 Labs Labs Laboratory Tests Test 09/02/17 20:30 09/02/17 22:20 09/03/17 03:30 White Blood Count 8.1 x10^3/uL (4.0-11.0) 7.4 x10^3/uL (4.0-11.0) Red Blood Count 3.43 x10^6/uL (4.30-5.70) 3.18 x10^6/uL (4.30-5.70) Hemoglobin 10.7 g/dL (13.0-17.5) 10.0 g/dL (13.0-17.5) Hematocrit 30.7 % (39.0-53.0) 28.4 % (39.0-53.0) Mean Corpuscular Volume 89 fL (79-100) 89 fL (79-100) Mean Corpuscular Hemoglobin 31 pg (25-35) 31 pg (25-35) Mean Corpuscular Hemoglobin Concent 35 g/dL (31-37) 35 g/dL (31-37) Red Cell Distribution Width 13.5 % (11.5-14.5) 13.5 % (11.5-14.5) Platelet Count 225 x10^3/uL (140-400) 210 x10^3/uL (140-400) Neutrophils (%) (Auto) 75 % (31-73) 76 % (31-73) Lymphocytes (%) (Auto) 12 % (24-48) 12 % (24-48) Monocytes (%) (Auto) 10 % (0-9) 9 % (0-9) Eosinophils (%) (Auto) 2 % (0-3) 2 % (0-3) Basophils (%) (Auto) 1 % (0-3) 1 % (0-3) Neutrophils # (Auto) 6.0 x10^3uL (1.8-7.7) 5.7 x10^3uL (1.8-7.7) Lymphocytes # (Auto) 1.0 x10^3/uL (1.0-4.8) 0.9 x10^3/uL (1.0-4.8) Monocytes # (Auto) 0.8 x10^3/uL (0.0-1.1) 0.7 x10^3/uL (0.0-1.1) Eosinophils # (Auto) 0.2 x10^3/uL (0.0-0.7) 0.2 x10^3/uL (0.0-0.7) Basophils # (Auto) 0.1 x10^3/uL (0.0-0.2) 0.1 x10^3/uL (0.0-0.2) Prothrombin Time 12.8 SEC (11.7-14.0) Prothromb Time International Ratio 1.0 (0.8-1.1) Sodium Level 134 mmol/L (136-145) 137 mmol/L (136-145) Potassium Level 6.8 mmol/L (3.5-5.1) 6.1 mmol/L (3.5-5.1) Chloride Level 93 mmol/L (98-107) 94 mmol/L (98-107) Carbon Dioxide Level 23 mmol/L (21-32) 24 mmol/L (21-32) Anion Gap 18 (6-14) 19 (6-14) Blood Urea Nitrogen 104 mg/dL (8-26) 110 mg/dL (8-26) Creatinine 12.0 mg/dL (0.7-1.3) 12.7 mg/dL (0.7-1.3) Estimated GFR (Cockcroft-Gault) 4.3 4.0 BUN/Creatinine Ratio 9 (6-20) 9 (6-20) Glucose Level 93 mg/dL (70-99) 123 mg/dL (70-99) Calcium Level 7.0 mg/dL (8.5-10.1) 6.7 mg/dL (8.5-10.1) Magnesium Level 2.4 mg/dL (1.8-2.4) Total Bilirubin 0.4 mg/dL (0.2-1.0) 0.4 mg/dL (0.2-1.0) Aspartate Amino Transf (AST/SGOT) 20 U/L (15-37) 19 U/L (15-37) Alanine Aminotransferase (ALT/SGPT) 16 U/L (16-63) 19 U/L (16-63) Alkaline Phosphatase 78 U/L (46-116) 71 U/L (46-116) Creatine Kinase 225 U/L (39-308) Creatine Kinase MB (Mass) 2.2 ng/mL (0.0-3.6) Creatine Kinase MB Relative Index 1.0 % (0-4) Troponin I Quantitative 0.038 ng/mL (0.000-0.055) 0.041 ng/mL (0.000-0.055) UF-Yjl-[id number]-Type Natriuretic Peptide 15826 pg/mL (0-124) Total Protein 7.6 g/dL (6.4-8.2) 7.3 g/dL (6.4-8.2) Albumin 3.7 g/dL (3.4-5.0) 3.6 g/dL (3.4-5.0) Albumin/Globulin Ratio 0.9 (1.0-1.7) 1.0 (1.0-1.7) Lipase 570 U/L (73-393) Glucose (Fingerstick) 23 mg/dL (70-99) Laboratory Tests Test 09/02/17 20:30 09/02/17 22:20 09/03/17 03:30 White Blood Count 8.1 x10^3/uL (4.0-11.0) 7.4 x10^3/uL (4.0-11.0) Red Blood Count 3.43 x10^6/uL (4.30-5.70) 3.18 x10^6/uL (4.30-5.70) Hemoglobin 10.7 g/dL (13.0-17.5) 10.0 g/dL (13.0-17.5) Hematocrit 30.7 % (39.0-53.0) 28.4 % (39.0-53.0) Mean Corpuscular Volume 89 fL (79-100) 89 fL (79-100) Mean Corpuscular Hemoglobin 31 pg (25-35) 31 pg (25-35) Mean Corpuscular Hemoglobin Concent 35 g/dL (31-37) 35 g/dL (31-37) Red Cell Distribution Width 13.5 % (11.5-14.5) 13.5 % (11.5-14.5) Platelet Count 225 x10^3/uL (140-400) 210 x10^3/uL (140-400) Neutrophils (%) (Auto) 75 % (31-73) 76 % (31-73) Lymphocytes (%) (Auto) 12 % (24-48) 12 % (24-48) Monocytes (%) (Auto) 10 % (0-9) 9 % (0-9) Eosinophils (%) (Auto) 2 % (0-3) 2 % (0-3) Basophils (%) (Auto) 1 % (0-3) 1 % (0-3) Neutrophils # (Auto) 6.0 x10^3uL (1.8-7.7) 5.7 x10^3uL (1.8-7.7) Lymphocytes # (Auto) 1.0 x10^3/uL (1.0-4.8) 0.9 x10^3/uL (1.0-4.8) Monocytes # (Auto) 0.8 x10^3/uL (0.0-1.1) 0.7 x10^3/uL (0.0-1.1) Eosinophils # (Auto) 0.2 x10^3/uL (0.0-0.7) 0.2 x10^3/uL (0.0-0.7) Basophils # (Auto) 0.1 x10^3/uL (0.0-0.2) 0.1 x10^3/uL (0.0-0.2) Prothrombin Time 12.8 SEC (11.7-14.0) Prothromb Time International Ratio 1.0 (0.8-1.1) Sodium Level 134 mmol/L (136-145) 137 mmol/L (136-145) Potassium Level 6.8 mmol/L (3.5-5.1) 6.1 mmol/L (3.5-5.1) Chloride Level 93 mmol/L (98-107) 94 mmol/L (98-107) Carbon Dioxide Level 23 mmol/L (21-32) 24 mmol/L (21-32) Anion Gap 18 (6-14) 19 (6-14) Blood Urea Nitrogen 104 mg/dL (8-26) 110 mg/dL (8-26) Creatinine 12.0 mg/dL (0.7-1.3) 12.7 mg/dL (0.7-1.3) Estimated GFR (Cockcroft-Gault) 4.3 4.0 BUN/Creatinine Ratio 9 (6-20) 9 (6-20) Glucose Level 93 mg/dL (70-99) 123 mg/dL (70-99) Calcium Level 7.0 mg/dL (8.5-10.1) 6.7 mg/dL (8.5-10.1) Magnesium Level 2.4 mg/dL (1.8-2.4) Total Bilirubin 0.4 mg/dL (0.2-1.0) 0.4 mg/dL (0.2-1.0) Aspartate Amino Transf (AST/SGOT) 20 U/L (15-37) 19 U/L (15-37) Alanine Aminotransferase (ALT/SGPT) 16 U/L (16-63) 19 U/L (16-63) Alkaline Phosphatase 78 U/L (46-116) 71 U/L (46-116) Creatine Kinase 225 U/L (39-308) Creatine Kinase MB (Mass) 2.2 ng/mL (0.0-3.6) Creatine Kinase MB Relative Index 1.0 % (0-4) Troponin I Quantitative 0.038 ng/mL (0.000-0.055) 0.041 ng/mL (0.000-0.055) GC-Rkm-H-Type Natriuretic Peptide 78146 pg/mL (0-124) Total Protein 7.6 g/dL (6.4-8.2) 7.3 g/dL (6.4-8.2) Albumin 3.7 g/dL (3.4-5.0) 3.6 g/dL (3.4-5.0) Albumin/Globulin Ratio 0.9 (1.0-1.7) 1.0 (1.0-1.7) Lipase 570 U/L (73-393) Glucose (Fingerstick) 23 mg/dL (70-99) TING GARDUNO MD Sep 03, 2017 08:06
--- NOTE | 2017-09-03 08:13 | EKG ---
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
[2017-09-03] MEDS ORDERED: MAGNESIUM SULFATE 2GM 50 ML IV PRN (08:15)
[2017-09-03] MEDS ORDERED: OMEPRAZOLE MAGNESIUM 20 MG PO SCH (09:00)
--- NOTE | 2017-09-03 11:19 | CONS ---
DATE OF CONSULTATION: 09/03/2017 PRIMARY PHYSICIAN: Nevin Angel MD CONSULTING PHYSICIAN: Dr. Pop, ER. HISTORY OF PRESENT ILLNESS: The patient is a 62-year-old gentleman who presented 1 day prior to his 62st birthday to [facility] with complaints of chest pain. 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 He dialyzes at [facility] on a Saturday, , Saturday's schedule. Chest pain started at 4:00 yesterday, was noted to be hyperkalemic also at 6.8; however, given his active chest pain, it was felt that he would need to be managed conservatively until he was ruled out for ongoing angina. He is currently chest pain free and is seen on dialysis. His chest x-ray was not suggestive of CHF despite subjective shortness of breath. He admits to using Ketchup in his food over the weekend. He is known to have noncompliance with his renal diet also. He is noted to be hypocalcemic, presumably associated with high phosphorus, which has been a chronic problem of his. His phosphorus tends to correct nicely when he is in the hospital and receives his binders on a scheduled basis. For rest of details, see electronic records. TING GARDUNO MD DR: MACARIO/alyson JOB#: [id number] / [id number]
[2017-09-03] MEDS: CALCIUM CARBONATE 500 MG TAB.CHEW PO SCH ×3 (11:53→16:30)
[2017-09-03] MEDS: FOLIC/VIT B COMP W-C (RENAL) TABLET. PO SCH (11:53)
[2017-09-03] MEDS: FUROSEMIDE 80 MG TABLET. PO SCH ×2 (11:53→16:00)
[2017-09-03] MEDS: PARoxetine 20 MG TABLET PO SCH (11:53)
[2017-09-03] MEDS: CLOPIDOGREL BISULFATE 75 MG TABLET PO SCH (11:54)
[2017-09-03] MEDS: METOPROLOL TART IMMED RELEASE 50 MG TABLET. PO SCH ×2 (11:54→20:29)
[2017-09-03] MEDS: PANTOPRAZOLE 40 MG TABLET.DR. PO SCH ×2 (11:56→16:30)
--- NOTE | 2017-09-03 12:57 | PDOC ---
PROGRESS NOTES Chief Complaint Chief Complaint Chest pain, radiates to shoulder ESRD Hyperkalemia Lung cancer Diabetes Stroke Bladder cancer Appendectomy Cholecystectomy History of Present Illness History of Present Illness Pt seen at bedside in ICU. Pt in no acute distress. Pt presents with ESRD and hyperkalemia at 6.1. Scheduled for dialysis today 09/03. Pt is being seen by nephrology. Creatinine level is 12.7 and BUN is 110. Will continue monitor in ICU. Vitals Vitals Vital Signs Date Time Temp Pulse Resp B/P (MAP) Pulse Ox O2 Delivery O2 Flow Rate FiO2 09/03/17 12:00 Room Air 09/03/17 12:00 98.0 70 20 166/80 (108) 100 98.0 09/03/17 02:13 96.0 Physical Exam General: Alert, Oriented X3, Cooperative, No acute distress Heart: Regular rate, Normal S1, Normal S2, No murmurs Lungs: Clear, Other Abdomen: Normal bowel sounds, Soft Extremities: No cyanosis, No edema Skin: No rashes, No significant lesion Labs LABS Laboratory Tests Test 09/02/17 20:30 09/02/17 22:20 09/03/17 03:30 09/03/17 08:40 White Blood Count 8.1 x10^3/uL (4.0-11.0) 7.4 x10^3/uL (4.0-11.0) Red Blood Count 3.43 x10^6/uL (4.30-5.70) 3.18 x10^6/uL (4.30-5.70) Hemoglobin 10.7 g/dL (13.0-17.5) 10.0 g/dL (13.0-17.5) Hematocrit 30.7 % (39.0-53.0) 28.4 % (39.0-53.0) Mean Corpuscular Volume 89 fL (79-100) 89 fL (79-100) Mean Corpuscular Hemoglobin 31 pg (25-35) 31 pg (25-35) Mean Corpuscular Hemoglobin Concent 35 g/dL (31-37) 35 g/dL (31-37) Red Cell Distribution Width 13.5 % (11.5-14.5) 13.5 % (11.5-14.5) Platelet Count 225 x10^3/uL (140-400) 210 x10^3/uL (140-400) Neutrophils (%) (Auto) 75 % (31-73) 76 % (31-73) Lymphocytes (%) (Auto) 12 % (24-48) 12 % (24-48) Monocytes (%) (Auto) 10 % (0-9) 9 % (0-9) Eosinophils (%) (Auto) 2 % (0-3) 2 % (0-3) Basophils (%) (Auto) 1 % (0-3) 1 % (0-3) Neutrophils # (Auto) 6.0 x10^3uL (1.8-7.7) 5.7 x10^3uL (1.8-7.7) Lymphocytes # (Auto) 1.0 x10^3/uL (1.0-4.8) 0.9 x10^3/uL (1.0-4.8) Monocytes # (Auto) 0.8 x10^3/uL (0.0-1.1) 0.7 x10^3/uL (0.0-1.1) Eosinophils # (Auto) 0.2 x10^3/uL (0.0-0.7) 0.2 x10^3/uL (0.0-0.7) Basophils # (Auto) 0.1 x10^3/uL (0.0-0.2) 0.1 x10^3/uL (0.0-0.2) Prothrombin Time 12.8 SEC (11.7-14.0) Prothromb Time International Ratio 1.0 (0.8-1.1) Sodium Level 134 mmol/L (136-145) 137 mmol/L (136-145) Potassium Level 6.8 mmol/L (3.5-5.1) 6.1 mmol/L (3.5-5.1) Chloride Level 93 mmol/L (98-107) 94 mmol/L (98-107) Carbon Dioxide Level 23 mmol/L (21-32) 24 mmol/L (21-32) Anion Gap 18 (6-14) 19 (6-14) Blood Urea Nitrogen 104 mg/dL (8-26) 110 mg/dL (8-26) Creatinine 12.0 mg/dL (0.7-1.3) 12.7 mg/dL (0.7-1.3) Estimated GFR (Cockcroft-Gault) 4.3 4.0 BUN/Creatinine Ratio 9 (6-20) 9 (6-20) Glucose Level 93 mg/dL (70-99) 123 mg/dL (70-99) Calcium Level 7.0 mg/dL (8.5-10.1) 6.7 mg/dL (8.5-10.1) Magnesium Level 2.4 mg/dL (1.8-2.4) Total Bilirubin 0.4 mg/dL (0.2-1.0) 0.4 mg/dL (0.2-1.0) Aspartate Amino Transf (AST/SGOT) 20 U/L (15-37) 19 U/L (15-37) Alanine Aminotransferase (ALT/SGPT) 16 U/L (16-63) 19 U/L (16-63) Alkaline Phosphatase 78 U/L (46-116) 71 U/L (46-116) Creatine Kinase 225 U/L (39-308) Creatine Kinase MB (Mass) 2.2 ng/mL (0.0-3.6) Creatine Kinase MB Relative Index 1.0 % (0-4) Troponin I Quantitative 0.038 ng/mL (0.000-0.055) 0.041 ng/mL (0.000-0.055) 0.060 ng/mL (0.000-0.055) RC-Lat-C-Type Natriuretic Peptide 65217 pg/mL (0-124) Total Protein 7.6 g/dL (6.4-8.2) 7.3 g/dL (6.4-8.2) Albumin 3.7 g/dL (3.4-5.0) 3.6 g/dL (3.4-5.0) Albumin/Globulin Ratio 0.9 (1.0-1.7) 1.0 (1.0-1.7) Lipase 570 U/L (73-393) Glucose (Fingerstick) 23 mg/dL (70-99) Test 09/03/17 08:44 Glucose (Fingerstick) 93 mg/dL (70-99) Review of Systems Review of Systems Pt complains of weakness, fatigue, and hunger. Assessment and Plan Assessmemt and Plan Problems Medical Problems: (1) Chest pain Status: Acute (2) End stage renal disease Status: Acute (3) Hyperkalemia Status: Acute Assessment: Chest pain, radiates to shoulder ESRD Hyperkalemia Lung cancer Diabetes Stroke Bladder cancer Appendectomy Cholecystectomy Plan: Continue ICU monitoring Continue dialysis Appreciate subspeciality input Continue at home meds Order labs Order PT/OT Problems: Comment Review of Relevant I have reviewed the following items dionte (where applicable) has been applied. Labs Laboratory Tests Test 09/02/17 20:30 09/02/17 22:20 09/03/17 03:30 09/03/17 08:40 White Blood Count 8.1 x10^3/uL (4.0-11.0) 7.4 x10^3/uL (4.0-11.0) Red Blood Count 3.43 x10^6/uL (4.30-5.70) 3.18 x10^6/uL (4.30-5.70) Hemoglobin 10.7 g/dL (13.0-17.5) 10.0 g/dL (13.0-17.5) Hematocrit 30.7 % (39.0-53.0) 28.4 % (39.0-53.0) Mean Corpuscular Volume 89 fL (79-100) 89 fL (79-100) Mean Corpuscular Hemoglobin 31 pg (25-35) 31 pg (25-35) Mean Corpuscular Hemoglobin Concent 35 g/dL (31-37) 35 g/dL (31-37) Red Cell Distribution Width 13.5 % (11.5-14.5) 13.5 % (11.5-14.5) Platelet Count 225 x10^3/uL (140-400) 210 x10^3/uL (140-400) Neutrophils (%) (Auto) 75 % (31-73) 76 % (31-73) Lymphocytes (%) (Auto) 12 % (24-48) 12 % (24-48) Monocytes (%) (Auto) 10 % (0-9) 9 % (0-9) Eosinophils (%) (Auto) 2 % (0-3) 2 % (0-3) Basophils (%) (Auto) 1 % (0-3) 1 % (0-3) Neutrophils # (Auto) 6.0 x10^3uL (1.8-7.7) 5.7 x10^3uL (1.8-7.7) Lymphocytes # (Auto) 1.0 x10^3/uL (1.0-4.8) 0.9 x10^3/uL (1.0-4.8) Monocytes # (Auto) 0.8 x10^3/uL (0.0-1.1) 0.7 x10^3/uL (0.0-1.1) Eosinophils # (Auto) 0.2 x10^3/uL (0.0-0.7) 0.2 x10^3/uL (0.0-0.7) Basophils # (Auto) 0.1 x10^3/uL (0.0-0.2) 0.1 x10^3/uL (0.0-0.2) Prothrombin Time 12.8 SEC (11.7-14.0) Prothromb Time International Ratio 1.0 (0.8-1.1) Sodium Level 134 mmol/L (136-145) 137 mmol/L (136-145) Potassium Level 6.8 mmol/L (3.5-5.1) 6.1 mmol/L (3.5-5.1) Chloride Level 93 mmol/L (98-107) 94 mmol/L (98-107) Carbon Dioxide Level 23 mmol/L (21-32) 24 mmol/L (21-32) Anion Gap 18 (6-14) 19 (6-14) Blood Urea Nitrogen 104 mg/dL (8-26) 110 mg/dL (8-26) Creatinine 12.0 mg/dL (0.7-1.3) 12.7 mg/dL (0.7-1.3) Estimated GFR (Cockcroft-Gault) 4.3 4.0 BUN/Creatinine Ratio 9 (6-20) 9 (6-20) Glucose Level 93 mg/dL (70-99) 123 mg/dL (70-99) Calcium Level 7.0 mg/dL (8.5-10.1) 6.7 mg/dL (8.5-10.1) Magnesium Level 2.4 mg/dL (1.8-2.4) Total Bilirubin 0.4 mg/dL (0.2-1.0) 0.4 mg/dL (0.2-1.0) Aspartate Amino Transf (AST/SGOT) 20 U/L (15-37) 19 U/L (15-37) Alanine Aminotransferase (ALT/SGPT) 16 U/L (16-63) 19 U/L (16-63) Alkaline Phosphatase 78 U/L (46-116) 71 U/L (46-116) Creatine Kinase 225 U/L (39-308) Creatine Kinase MB (Mass) 2.2 ng/mL (0.0-3.6) Creatine Kinase MB Relative Index 1.0 % (0-4) Troponin I Quantitative 0.038 ng/mL (0.000-0.055) 0.041 ng/mL (0.000-0.055) 0.060 ng/mL (0.000-0.055) XO-Gxx-K-Type Natriuretic Peptide 68158 pg/mL (0-124) Total Protein 7.6 g/dL (6.4-8.2) 7.3 g/dL (6.4-8.2) Albumin 3.7 g/dL (3.4-5.0) 3.6 g/dL (3.4-5.0) Albumin/Globulin Ratio 0.9 (1.0-1.7) 1.0 (1.0-1.7) Lipase 570 U/L (73-393) Glucose (Fingerstick) 23 mg/dL (70-99) Test 09/03/17 08:44 Glucose (Fingerstick) 93 mg/dL (70-99) Laboratory Tests Test 09/02/17 20:30 09/02/17 22:20 09/03/17 03:30 09/03/17 08:40 White Blood Count 8.1 x10^3/uL (4.0-11.0) 7.4 x10^3/uL (4.0-11.0) Red Blood Count 3.43 x10^6/uL (4.30-5.70) 3.18 x10^6/uL (4.30-5.70) Hemoglobin 10.7 g/dL (13.0-17.5) 10.0 g/dL (13.0-17.5) Hematocrit 30.7 % (39.0-53.0) 28.4 % (39.0-53.0) Mean Corpuscular Volume 89 fL (79-100) 89 fL (79-100) Mean Corpuscular Hemoglobin 31 pg (25-35) 31 pg (25-35) Mean Corpuscular Hemoglobin Concent 35 g/dL (31-37) 35 g/dL (31-37) Red Cell Distribution Width 13.5 % (11.5-14.5) 13.5 % (11.5-14.5) Platelet Count 225 x10^3/uL (140-400) 210 x10^3/uL (140-400) Neutrophils (%) (Auto) 75 % (31-73) 76 % (31-73) Lymphocytes (%) (Auto) 12 % (24-48) 12 % (24-48) Monocytes (%) (Auto) 10 % (0-9) 9 % (0-9) Eosinophils (%) (Auto) 2 % (0-3) 2 % (0-3) Basophils (%) (Auto) 1 % (0-3) 1 % (0-3) Neutrophils # (Auto) 6.0 x10^3uL (1.8-7.7) 5.7 x10^3uL (1.8-7.7) Lymphocytes # (Auto) 1.0 x10^3/uL (1.0-4.8) 0.9 x10^3/uL (1.0-4.8) Monocytes # (Auto) 0.8 x10^3/uL (0.0-1.1) 0.7 x10^3/uL (0.0-1.1) Eosinophils # (Auto) 0.2 x10^3/uL (0.0-0.7) 0.2 x10^3/uL (0.0-0.7) Basophils # (Auto) 0.1 x10^3/uL (0.0-0.2) 0.1 x10^3/uL (0.0-0.2) Prothrombin Time 12.8 SEC (11.7-14.0) Prothromb Time International Ratio 1.0 (0.8-1.1) Sodium Level 134 mmol/L (136-145) 137 mmol/L (136-145) Potassium Level 6.8 mmol/L (3.5-5.1) 6.1 mmol/L (3.5-5.1) Chloride Level 93 mmol/L (98-107) 94 mmol/L (98-107) Carbon Dioxide Level 23 mmol/L (21-32) 24 mmol/L (21-32) Anion Gap 18 (6-14) 19 (6-14) Blood Urea Nitrogen 104 mg/dL (8-26) 110 mg/dL (8-26) Creatinine 12.0 mg/dL (0.7-1.3) 12.7 mg/dL (0.7-1.3) Estimated GFR (Cockcroft-Gault) 4.3 4.0 BUN/Creatinine Ratio 9 (6-20) 9 (6-20) Glucose Level 93 mg/dL (70-99) 123 mg/dL (70-99) Calcium Level 7.0 mg/dL (8.5-10.1) 6.7 mg/dL (8.5-10.1) Magnesium Level 2.4 mg/dL (1.8-2.4) Total Bilirubin 0.4 mg/dL (0.2-1.0) 0.4 mg/dL (0.2-1.0) Aspartate Amino Transf (AST/SGOT) 20 U/L (15-37) 19 U/L (15-37) Alanine Aminotransferase (ALT/SGPT) 16 U/L (16-63) 19 U/L (16-63) Alkaline Phosphatase 78 U/L (46-116) 71 U/L (46-116) Creatine Kinase 225 U/L (39-308) Creatine Kinase MB (Mass) 2.2 ng/mL (0.0-3.6) Creatine Kinase MB Relative Index 1.0 % (0-4) Troponin I Quantitative 0.038 ng/mL (0.000-0.055) 0.041 ng/mL (0.000-0.055) 0.060 ng/mL (0.000-0.055) GU-Czn-F-Type Natriuretic Peptide 21123 pg/mL (0-124) Total Protein 7.6 g/dL (6.4-8.2) 7.3 g/dL (6.4-8.2) Albumin 3.7 g/dL (3.4-5.0) 3.6 g/dL (3.4-5.0) Albumin/Globulin Ratio 0.9 (1.0-1.7) 1.0 (1.0-1.7) Lipase 570 U/L (73-393) Glucose (Fingerstick) 23 mg/dL (70-99) Test 09/03/17 08:44 Glucose (Fingerstick) 93 mg/dL (70-99) Medications Current Medications Albuterol Sulfate (Ventolin Neb Soln) 2.5 mg 1X ONCE NEB Last administered on 09/02/17 21:35; Start 09/02/17 at 22:00; Stop 09/02/17 at 22:01; Status DC Insulin Human Regular (NovoLIN R VIAL) 10 unit 1X ONCE IV Last administered on 09/02/17 21:34; Start 09/02/17 at 22:00; Stop 09/02/17 at 22:01; Status DC Dextrose (Dextrose 50%-Water Syringe) 12.5 gm 1X ONCE IV Last administered on 09/02/17 21:35; Start 09/02/17 at 22:00; Stop 09/02/17 at 22:01; Status DC Fentanyl Citrate (Fentanyl 2ml Vial) 50 mcg 1X ONCE IV Last administered on 21:39; Start 09/02/17 at 22:00; Stop 09/02/17 at 22:01; Status DC Sodium Polystyrene Sulfonate (Kayexalate) 60 gm 1X ONCE PO Last administered on 09/02/17 23:07; Start 09/02/17 at 22:00; Stop 09/02/17 at 22:01; Status DC Ondansetron HCl (Zofran) 4 mg 1X ONCE IV Last administered on 09/03/17 00:12 ; Start 09/02/17 at 22:00; Stop 09/02/17 at 22:01; Status DC Ondansetron HCl (Zofran) 4 mg PRN Q8HRS PRN IV NAUSEA/VOMITING; Start at 22:00; Stop 09/03/17 at 21:59 Fentanyl Citrate (Fentanyl 2ml Vial) 50 mcg PRN Q1HR PRN IV SEVERE PAIN Last administered on 09/03/17 01:31; Start 09/02/17 at 22:00; Stop 09/03/17 at 21 :59 Dextrose (Dextrose 50%-Water Syringe) 25 gm 1X ONCE IV Last administered on 22:29; Start 09/02/17 at 23:00; Stop 09/02/17 at 23:01; Status DC Alprazolam (Xanax) 0.5 mg PRN TID PRN PO ANXIETY / AGITATION Last administered on 09/03/17 11:53; Start 09/03/17 at 01:15 Calcium Carbonate/ Glycine (Tums) 500 mg TIDAC PO Last administered on 11:56; Start 09/03/17 at 07:30 Clopidogrel Bisulfate (Plavix) 75 mg DAILY PO Last administered on 09/03/17 11:54; Start 09/03/17 at 09:00 Vitamin B Complex/ Vitamin C (Frances-Chilo) 1 tab DAILY PO Last administered on 11:53; Start 09/03/17 at 09:00 Furosemide (Lasix) 80 mg BID94 PO Last administered on 09/03/17 11:53; Start 09/03/17 at 09:00 Hydralazine HCl (Apresoline) 50 mg TID PO Last administered on 09/03/17 11:55 ; Start 09/03/17 at 09:00 Acetaminophen/ Hydrocodone Bitart (Lortab 5/325) 1 tab PRN Q6HRS PRN PO SEVERE PAIN; Start 09/03/17 at 01:15 Pantoprazole Sodium (Protonix) 40 mg BIDAC PO Last administered on 09/03/17 11:56; Start 09/03/17 at 07:30 Paroxetine HCl (Paxil) 40 mg DAILY PO Last administered on 09/03/17 11:53; Start 09/03/17 at 09:00 Tamsulosin HCl (Flomax) 0.4 mg QHS PO ; Start 09/03/17 at 21:00 Metoprolol Tartrate (Lopressor) 100 mg BID PO Last administered on 09/03/17 11:54; Start 09/03/17 at 09:00 Non-Formulary Medication 20 mg DAILY PO ; Start 09/03/17 at 09:00; Status UNV Dextrose (Dextrose 50%-Water Syringe) 12.5 gm PRN Q15MIN PRN IV SEE COMMENTS; Start 09/03/17 at 01:15 Sodium Chloride 1,000 ml @ 1,000 mls/hr Q1H PRN IV hypotension; Start at 06:10; Stop 09/03/17 at 12:09; Status DC Sodium Chloride 1,000 ml @ 400 mls/hr Q2H30M PRN IV PATENCY; Start 09/03/17 at 06:10; Stop 09/03/17 at 18:09 Info (PHARMACY MONITORING -- do not chart) 1 each PRN DAILY PRN MC SEE COMMENTS ; Start 09/03/17 at 06:15 Diphenhydramine HCl (Benadryl) 50 mg 1X ONCE IVP Last administered on t 07:32; Start 09/03/17 at 07:30; Stop 09/03/17 at 07:31; Status DC Magnesium Sulfate/ Dextrose 50 ml @ 25 mls/hr PRN DAILY PRN IV for Mag < 1.7 on am labs; Start 09/03/17 at 08:15 Active Scripts Active Xanax (Alprazolam) 0.5 Mg Tablet 0.5 Mg PO TID PRN LAST DOSE: 02/23/16 BEDTIME NEXT DOSE: 02/24/16 BEDTIME Flomax (Tamsulosin Hcl) 0.4 Mg Cap.er.24h 0.4 Mg PO QHS Reported Metoprolol Tartrate 100 Mg Tablet 1 Tab PO BID Pantoprazole Sodium 40 Mg Tablet.dr 40 BID Plavix (Clopidogrel Bisulfate) 75 Mg Tablet 75 DAILY Losartan Potassium 100 Mg Tablet 100 DAILY Furosemide 80 Mg Tablet 80 BID Hydralazine Hcl 50 Mg Tablet 50 TID Hydrocodone-Apap 5-325 (Hydrocodone Bit/Acetaminophen) 1 Each Tablet 1 Tab PO PRN Q6HRS PRN Nephro-Chilo Tablet (Folic Acid/Vitamin B Comp W-C) 0.8 Mg Tablet 1 Tab PO DAILY Paroxetine Hcl 20 Mg Tablet 40 Mg PO DAILY Tums (Calcium Carbonate) 200 Mg Tab.chew 800 Mg PO TIDAC Omeprazole Magnesium 20 Mg Capsule.dr 20 Mg PO DAILY Vitals/I & O Vital Sign - Last 24 Hours 09/02/17 09/02/17 09/02/1716/17 20:12 20:30 21:00 21:30 Temp 97.8 97.8 Pulse 71 70 72 72 Resp 20 B/P (MAP) 180/81 (114) 190/81 (117) 182/82 (115) 184/87 (119) Pulse Ox 99 99 98 98 O2 Delivery Room Air Room Air Room Air Room Air 09/02/17 09/02/17 09/02/17 09/02/17 21:35 22:00 22:30 23:00 Pulse 80 90 80 Resp 20 20 20 B/P (MAP) 172/79 (110) 182/82 (115) 174/83 (113) Pulse Ox 99 98 99 100 O2 Delivery Room Air Room Air Room Air Room Air 09/02/17 09/03/17 09/03/17 09/03/17 23:30 00:01 00:45 00:45 Pulse 76 80 86 Resp 20 20 20 B/P (MAP) 184/81 (115) 175/80 (111) 163/80 (107) Pulse Ox 99 99 99 O2 Delivery Room Air Room Air Room Air Room Air 09/03/17 09/03/17 09/03/17 09/03/17 01:00 01:30 01:31 01:45 Temp 97.6 97.6 Pulse 86 78 78 Resp 24 14 13 17 B/P (MAP) 171/83 (112) 161/75 (103) 169/64 (99) Pulse Ox 99 98 98 98 O2 Delivery Room Air Room Air Room Air Room Air 09/03/17 09/03/17 09/03/17 09/03/17 02:00 02:13 03:00 03:57 Pulse 76 80 Resp 16 13 25 B/P (MAP) 151/68 (95) 152/67 (95) Pulse Ox 97 97 O2 Delivery Room Air Room Air Room Air Room Air O2 Flow Rate 96.0 09/03/17 09/03/17 09/03/17 09/03/17 04:00 05:00 06:00 07:00 Temp 98.1 98.1 Pulse 72 68 69 70 Resp 14 17 12 14 B/P (MAP) 148/64 (92) 142/62 (88) 147/56 (86) 156/60 (92) Pulse Ox 100 93 96 99 O2 Delivery Room Air Room Air Room Air Room Air 09/03/17 09/03/17 09/03/17 09/03/17 08:00 08:00 09:04 10:00 Temp 98.3 98.3 Pulse 80 82 80 Resp 12 21 18 B/P (MAP) 157/76 (103) 122/65 (84) 145/77 (99) Pulse Ox 99 95 89 O2 Delivery Room Air Room Air Room Air Room Air 09/03/17 09/03/17 09/03/17 09/03/17 11:00 11:54 11:55 12:00 Temp 98.0 98.0 Pulse 78 80 79 70 Resp 13 20 B/P (MAP) 147/78 (101) 162/81 162/81 166/80 (108) Pulse Ox 98 100 O2 Delivery Room Air Room Air 09/03/17 12:00 O2 Delivery Room Air Intake and Output 09/03/17 09/03/17 09/04/17 15:00 23:00 07:00 Intake Total 350 ml Output Total 0 ml Balance 350 ml YIN QUARLES III DO Sep 03, 2017 12:57
[2017-09-03] MEDS ORDERED: TAMSULOSIN 0.4 MG CAP.ER.24H. PO SCH (21:00)
[2017-09-04 00:06] VITALS: BP 148/62
[2017-09-04 07:46] LABS: BASO # 0.1 x10^3/uL (0.0-0.2); BASO % 1 % (0-3); EOS % 3 % (0-3); HEMOGLOBIN 12.3 g/dL (13.0-17.5); LYMPH # 1.2 x10^3/uL (1.0-4.8); LYMPH % 14 % (24-48); MEAN CORPUSCULAR HEMOGLOBIN 31 pg (25-35); MEAN CORPUSCULAR HGB CONC 34 g/dL (31-37); MEAN CORPUSCULAR VOLUME 91 fL (79-100); MONO % 10 % (0-9); NEUT % 72 % (31-73); PLATELET COUNT 257 x10^3/uL (140-400); RED BLOOD COUNT 3.95 x10^6/uL (4.30-5.70); RED CELL DISTRIBUTION WIDTH 13.6 % (11.5-14.5); WHITE BLOOD COUNT 8.9 x10^3/uL (4.0-11.0)
[2017-09-04 08:00] VITALS: BP 154/73
[2017-09-04 08:01] LABS: ALBUMIN/GLOBULIN RATIO 0.9 (1.0-1.7); CALCIUM 8.4 mg/dL (8.5-10.1); CREATININE 8.8 mg/dL (0.7-1.3); GFR 6.2; MAGNESIUM 2.3 mg/dL (1.8-2.4); PHOSPHORUS 7.1 mg/dL (2.6-4.7); POTASSIUM 5.3 mmol/L (3.5-5.1); TOTAL BILIRUBIN 0.5 mg/dL (0.2-1.0); TOTAL PROTEIN 8.4 g/dL (6.4-8.2)
[2017-09-04] MEDS: PANTOPRAZOLE 40 MG TABLET.DR. PO SCH (08:03)
[2017-09-04] MEDS: CALCIUM CARBONATE 500 MG TAB.CHEW PO SCH (08:03)
[2017-09-04] MEDS: FOLIC/VIT B COMP W-C (RENAL) TABLET. PO SCH (08:04)
[2017-09-04] MEDS: PARoxetine 20 MG TABLET PO SCH (08:04)
[2017-09-04] MEDS: CLOPIDOGREL BISULFATE 75 MG TABLET PO SCH (08:07)
[2017-09-04] MEDS: ALPRAZolam 0.5 MG TABLET PO PRN (08:08)
[2017-09-04] MEDS: FUROSEMIDE 80 MG TABLET. PO SCH (08:08)
[2017-09-04] MEDS: METOPROLOL TART IMMED RELEASE 50 MG TABLET. PO SCH (08:08)
[2017-09-04] MEDS ORDERED: IV NORMAL SALINE 1000ML BAG 1,000 ML IV PRN ×2 (10:08)
[2017-09-04] MEDS ORDERED: DIALYSIS PATIENT. MC PRN (10:15)
[2017-09-04] MEDS ORDERED: diphenhydrAMINE 50 MG/ML VIAL IV ONE (10:15)
--- NOTE | 2017-09-04 12:17 | PDOC ---
Dialysis Progress Note Dialysis Note Dialysis Note Seen on Hemodialysis, tolerating treatment Well Vitals on Hemodialysis: 149/60 55 afeb General Appearance: Awake: Alert Oriented x 3 Neck: No JVD or JVP Chest: CTA Oliver Heart: S1 S2 Abdomen - Soft NTND Extremities - No Edema ESRD: Dialysis as below F 180 NR 3.0 Hrs 2 K 3.0 Ca 140 Na 30 HC03 Qb 350 + Qd 500+ Heparin 0 Units Uf 1-2 Kgs or to dry weight as tolerated May give 25-50 gms of 25% Albumin if needed to maintain Hemodynamic stability Treatment plan reviewed and discussed with digital marketing intern Vitals Vital Signs Vital Signs Date Time Temp Pulse Resp B/P (MAP) Pulse Ox O2 Delivery O2 Flow Rate FiO2 09/04/17 08:08 154/73 09/04/17 08:00 Room Air 09/04/17 08:00 98.1 60 14 99 98.1 09/03/17 02:13 96.0 Labs Last Labs Laboratory Tests Test 09/02/17 20:30 09/02/17 22:20 09/03/17 01:00 09/03/17 03:30 White Blood Count 8.1 x10^3/uL (4.0-11.0) 7.4 x10^3/uL (4.0-11.0) Red Blood Count 3.43 x10^6/uL (4.30-5.70) 3.18 x10^6/uL (4.30-5.70) Hemoglobin 10.7 g/dL (13.0-17.5) 10.0 g/dL (13.0-17.5) Hematocrit 30.7 % (39.0-53.0) 28.4 % (39.0-53.0) Mean Corpuscular Volume 89 fL (79-100) 89 fL (79-100) Mean Corpuscular Hemoglobin 31 pg (25-35) 31 pg (25-35) Mean Corpuscular Hemoglobin Concent 35 g/dL (31-37) 35 g/dL (31-37) Red Cell Distribution Width 13.5 % (11.5-14.5) 13.5 % (11.5-14.5) Platelet Count 225 x10^3/uL (140-400) 210 x10^3/uL (140-400) Neutrophils (%) (Auto) 75 % (31-73) 76 % (31-73) Lymphocytes (%) (Auto) 12 % (24-48) 12 % (24-48) Monocytes (%) (Auto) 10 % (0-9) 9 % (0-9) Eosinophils (%) (Auto) 2 % (0-3) 2 % (0-3) Basophils (%) (Auto) 1 % (0-3) 1 % (0-3) Neutrophils # (Auto) 6.0 x10^3uL (1.8-7.7) 5.7 x10^3uL (1.8-7.7) Lymphocytes # (Auto) 1.0 x10^3/uL (1.0-4.8) 0.9 x10^3/uL (1.0-4.8) Monocytes # (Auto) 0.8 x10^3/uL (0.0-1.1) 0.7 x10^3/uL (0.0-1.1) Eosinophils # (Auto) 0.2 x10^3/uL (0.0-0.7) 0.2 x10^3/uL (0.0-0.7) Basophils # (Auto) 0.1 x10^3/uL (0.0-0.2) 0.1 x10^3/uL (0.0-0.2) Prothrombin Time 12.8 SEC (11.7-14.0) Prothromb Time International Ratio 1.0 (0.8-1.1) Sodium Level 134 mmol/L (136-145) 137 mmol/L (136-145) Potassium Level 6.8 mmol/L (3.5-5.1) 6.1 mmol/L (3.5-5.1) Chloride Level 93 mmol/L (98-107) 94 mmol/L (98-107) Carbon Dioxide Level 23 mmol/L (21-32) 24 mmol/L (21-32) Anion Gap 18 (6-14) 19 (6-14) Blood Urea Nitrogen 104 mg/dL (8-26) 110 mg/dL (8-26) Creatinine 12.0 mg/dL (0.7-1.3) 12.7 mg/dL (0.7-1.3) Estimated GFR (Cockcroft-Gault) 4.3 4.0 BUN/Creatinine Ratio 9 (6-20) 9 (6-20) Glucose Level 93 mg/dL (70-99) 123 mg/dL (70-99) Calcium Level 7.0 mg/dL (8.5-10.1) 6.7 mg/dL (8.5-10.1) Magnesium Level 2.4 mg/dL (1.8-2.4) Total Bilirubin 0.4 mg/dL (0.2-1.0) 0.4 mg/dL (0.2-1.0) Aspartate Amino Transf (AST/SGOT) 20 U/L (15-37) 19 U/L (15-37) Alanine Aminotransferase (ALT/SGPT) 16 U/L (16-63) 19 U/L (16-63) Alkaline Phosphatase 78 U/L (46-116) 71 U/L (46-116) Creatine Kinase 225 U/L (39-308) Creatine Kinase MB (Mass) 2.2 ng/mL (0.0-3.6) Creatine Kinase MB Relative Index 1.0 % (0-4) Troponin I Quantitative 0.038 ng/mL (0.000-0.055) 0.041 ng/mL (0.000-0.055) PY-Lva-I-Type Natriuretic Peptide 67540 pg/mL (0-124) Total Protein 7.6 g/dL (6.4-8.2) 7.3 g/dL (6.4-8.2) Albumin 3.7 g/dL (3.4-5.0) 3.6 g/dL (3.4-5.0) Albumin/Globulin Ratio 0.9 (1.0-1.7) 1.0 (1.0-1.7) Lipase 570 U/L (73-393) Glucose (Fingerstick) 23 mg/dL (70-99) Nasal Screen MRSA (PCR) Negative (Negative) Test 09/03/17 08:40 09/03/17 08:44 09/04/17 07:30 Troponin I Quantitative 0.060 ng/mL (0.000-0.055) Glucose (Fingerstick) 93 mg/dL (70-99) White Blood Count 8.9 x10^3/uL (4.0-11.0) Red Blood Count 3.95 x10^6/uL (4.30-5.70) Hemoglobin 12.3 g/dL (13.0-17.5) Hematocrit 36.0 % (39.0-53.0) Mean Corpuscular Volume 91 fL (79-100) Mean Corpuscular Hemoglobin 31 pg (25-35) Mean Corpuscular Hemoglobin Concent 34 g/dL (31-37) Red Cell Distribution Width 13.6 % (11.5-14.5) Platelet Count 257 x10^3/uL (140-400) Neutrophils (%) (Auto) 72 % (31-73) Lymphocytes (%) (Auto) 14 % (24-48) Monocytes (%) (Auto) 10 % (0-9) Eosinophils (%) (Auto) 3 % (0-3) Basophils (%) (Auto) 1 % (0-3) Neutrophils # (Auto) 6.4 x10^3uL (1.8-7.7) Lymphocytes # (Auto) 1.2 x10^3/uL (1.0-4.8) Monocytes # (Auto) 0.9 x10^3/uL (0.0-1.1) Eosinophils # (Auto) 0.3 x10^3/uL (0.0-0.7) Basophils # (Auto) 0.1 x10^3/uL (0.0-0.2) Sodium Level 140 mmol/L (136-145) Potassium Level 5.3 mmol/L (3.5-5.1) Chloride Level 98 mmol/L (98-107) Carbon Dioxide Level 31 mmol/L (21-32) Anion Gap 11 (6-14) Blood Urea Nitrogen 53 mg/dL (8-26) Creatinine 8.8 mg/dL (0.7-1.3) Estimated GFR (Cockcroft-Gault) 6.2 BUN/Creatinine Ratio 6 (6-20) Glucose Level 98 mg/dL (70-99) Calcium Level 8.4 mg/dL (8.5-10.1) Phosphorus Level 7.1 mg/dL (2.6-4.7) Magnesium Level 2.3 mg/dL (1.8-2.4) Total Bilirubin 0.5 mg/dL (0.2-1.0) Aspartate Amino Transf (AST/SGOT) 22 U/L (15-37) Alanine Aminotransferase (ALT/SGPT) 20 U/L (16-63) Alkaline Phosphatase 82 U/L (46-116) Total Protein 8.4 g/dL (6.4-8.2) Albumin 4.0 g/dL (3.4-5.0) Albumin/Globulin Ratio 0.9 (1.0-1.7) Laboratory Tests Test 09/04/17 07:30 White Blood Count 8.9 x10^3/uL (4.0-11.0) Red Blood Count 3.95 x10^6/uL (4.30-5.70) Hemoglobin 12.3 g/dL (13.0-17.5) Hematocrit 36.0 % (39.0-53.0) Mean Corpuscular Volume 91 fL (79-100) Mean Corpuscular Hemoglobin 31 pg (25-35) Mean Corpuscular Hemoglobin Concent 34 g/dL (31-37) Red Cell Distribution Width 13.6 % (11.5-14.5) Platelet Count 257 x10^3/uL (140-400) Neutrophils (%) (Auto) 72 % (31-73) Lymphocytes (%) (Auto) 14 % (24-48) Monocytes (%) (Auto) 10 % (0-9) Eosinophils (%) (Auto) 3 % (0-3) Basophils (%) (Auto) 1 % (0-3) Neutrophils # (Auto) 6.4 x10^3uL (1.8-7.7) Lymphocytes # (Auto) 1.2 x10^3/uL (1.0-4.8) Monocytes # (Auto) 0.9 x10^3/uL (0.0-1.1) Eosinophils # (Auto) 0.3 x10^3/uL (0.0-0.7) Basophils # (Auto) 0.1 x10^3/uL (0.0-0.2) Sodium Level 140 mmol/L (136-145) Potassium Level 5.3 mmol/L (3.5-5.1) Chloride Level 98 mmol/L (98-107) Carbon Dioxide Level 31 mmol/L (21-32) Anion Gap 11 (6-14) Blood Urea Nitrogen 53 mg/dL (8-26) Creatinine 8.8 mg/dL (0.7-1.3) Estimated GFR (Cockcroft-Gault) 6.2 BUN/Creatinine Ratio 6 (6-20) Glucose Level 98 mg/dL (70-99) Calcium Level 8.4 mg/dL (8.5-10.1) Phosphorus Level 7.1 mg/dL (2.6-4.7) Magnesium Level 2.3 mg/dL (1.8-2.4) Total Bilirubin 0.5 mg/dL (0.2-1.0) Aspartate Amino Transf (AST/SGOT) 22 U/L (15-37) Alanine Aminotransferase (ALT/SGPT) 20 U/L (16-63) Alkaline Phosphatase 82 U/L (46-116) Total Protein 8.4 g/dL (6.4-8.2) Albumin 4.0 g/dL (3.4-5.0) Albumin/Globulin Ratio 0.9 (1.0-1.7) Assessment Assessment Problems Medical Problems: (1) Chest pain Status: Acute (2) End stage renal disease Status: Acute (3) Hyperkalemia Status: Acute Problems: Plan Plan of Care Problems Medical Problems: (1) Chest pain Status: Acute (2) End stage renal disease Status: Acute (3) Hyperkalemia Status: Acute TING GARDUNO MD Sep 04, 2017 12:17
--- NOTE | 2017-09-04 13:44 | PDOC ---
PROGRESS NOTES Chief Complaint Chief Complaint Chest pain, radiates to shoulder ESRD Hyperkalemia Lung cancer Diabetes Stroke Bladder cancer Appendectomy Cholecystectomy History of Present Illness History of Present Illness Pt seen at bedside in dialysis unit. Pt in no acute distress. Pt presents with ESRD and hyperkalemia at 6.1. Scheduled for dialysis today 09/04. Pt is being seen by nephrology. Labs indicate elevated creatine and BUN. Pt indicated he also has stage 1 lung cancer. Possible discharge today. Will continue to be monitored in ICU. Vitals Vitals Vital Signs Date Time Temp Pulse Resp B/P (MAP) Pulse Ox O2 Delivery O2 Flow Rate FiO2 09/04/17 08:08 154/73 09/04/17 08:00 Room Air 09/04/17 08:00 98.1 60 14 99 98.1 Physical Exam General: Alert, Oriented X3, Cooperative, No acute distress Heart: Regular rate, Normal S1, Normal S2, No murmurs Lungs: Clear, Other Abdomen: Normal bowel sounds, Soft Extremities: No cyanosis, No edema Skin: No rashes, No significant lesion Labs LABS Laboratory Tests Test 09/04/17 07:30 White Blood Count 8.9 x10^3/uL (4.0-11.0) Red Blood Count 3.95 x10^6/uL (4.30-5.70) Hemoglobin 12.3 g/dL (13.0-17.5) Hematocrit 36.0 % (39.0-53.0) Mean Corpuscular Volume 91 fL (79-100) Mean Corpuscular Hemoglobin 31 pg (25-35) Mean Corpuscular Hemoglobin Concent 34 g/dL (31-37) Red Cell Distribution Width 13.6 % (11.5-14.5) Platelet Count 257 x10^3/uL (140-400) Neutrophils (%) (Auto) 72 % (31-73) Lymphocytes (%) (Auto) 14 % (24-48) Monocytes (%) (Auto) 10 % (0-9) Eosinophils (%) (Auto) 3 % (0-3) Basophils (%) (Auto) 1 % (0-3) Neutrophils # (Auto) 6.4 x10^3uL (1.8-7.7) Lymphocytes # (Auto) 1.2 x10^3/uL (1.0-4.8) Monocytes # (Auto) 0.9 x10^3/uL (0.0-1.1) Eosinophils # (Auto) 0.3 x10^3/uL (0.0-0.7) Basophils # (Auto) 0.1 x10^3/uL (0.0-0.2) Sodium Level 140 mmol/L (136-145) Potassium Level 5.3 mmol/L (3.5-5.1) Chloride Level 98 mmol/L (98-107) Carbon Dioxide Level 31 mmol/L (21-32) Anion Gap 11 (6-14) Blood Urea Nitrogen 53 mg/dL (8-26) Creatinine 8.8 mg/dL (0.7-1.3) Estimated GFR (Cockcroft-Gault) 6.2 BUN/Creatinine Ratio 6 (6-20) Glucose Level 98 mg/dL (70-99) Calcium Level 8.4 mg/dL (8.5-10.1) Phosphorus Level 7.1 mg/dL (2.6-4.7) Magnesium Level 2.3 mg/dL (1.8-2.4) Total Bilirubin 0.5 mg/dL (0.2-1.0) Aspartate Amino Transf (AST/SGOT) 22 U/L (15-37) Alanine Aminotransferase (ALT/SGPT) 20 U/L (16-63) Alkaline Phosphatase 82 U/L (46-116) Total Protein 8.4 g/dL (6.4-8.2) Albumin 4.0 g/dL (3.4-5.0) Albumin/Globulin Ratio 0.9 (1.0-1.7) Review of Systems Review of Systems Pt seen at bedside. Pt complains of fatigue and hunger. Assessment and Plan Assessmemt and Plan Problems Medical Problems: (1) Chest pain Status: Acute (2) End stage renal disease Status: Acute (3) Hyperkalemia Status: Acute Assessment: Chest pain, radiates to shoulder ESRD Hyperkalemia Lung cancer Diabetes Stroke Bladder cancer Appendectomy Cholecystectomy Plan: Continue ICU monitoring Continue dialysis Recheck labs Continue PT/OT Appreciate subspecialty input Possible discharge today Problems: Comment Review of Relevant I have reviewed the following items dionte (where applicable) has been applied. Labs Laboratory Tests Test 09/02/17 20:30 09/02/17 22:20 09/03/17 01:00 09/03/17 03:30 White Blood Count 8.1 x10^3/uL (4.0-11.0) 7.4 x10^3/uL (4.0-11.0) Red Blood Count 3.43 x10^6/uL (4.30-5.70) 3.18 x10^6/uL (4.30-5.70) Hemoglobin 10.7 g/dL (13.0-17.5) 10.0 g/dL (13.0-17.5) Hematocrit 30.7 % (39.0-53.0) 28.4 % (39.0-53.0) Mean Corpuscular Volume 89 fL (79-100) 89 fL (79-100) Mean Corpuscular Hemoglobin 31 pg (25-35) 31 pg (25-35) Mean Corpuscular Hemoglobin Concent 35 g/dL (31-37) 35 g/dL (31-37) Red Cell Distribution Width 13.5 % (11.5-14.5) 13.5 % (11.5-14.5) Platelet Count 225 x10^3/uL (140-400) 210 x10^3/uL (140-400) Neutrophils (%) (Auto) 75 % (31-73) 76 % (31-73) Lymphocytes (%) (Auto) 12 % (24-48) 12 % (24-48) Monocytes (%) (Auto) 10 % (0-9) 9 % (0-9) Eosinophils (%) (Auto) 2 % (0-3) 2 % (0-3) Basophils (%) (Auto) 1 % (0-3) 1 % (0-3) Neutrophils # (Auto) 6.0 x10^3uL (1.8-7.7) 5.7 x10^3uL (1.8-7.7) Lymphocytes # (Auto) 1.0 x10^3/uL (1.0-4.8) 0.9 x10^3/uL (1.0-4.8) Monocytes # (Auto) 0.8 x10^3/uL (0.0-1.1) 0.7 x10^3/uL (0.0-1.1) Eosinophils # (Auto) 0.2 x10^3/uL (0.0-0.7) 0.2 x10^3/uL (0.0-0.7) Basophils # (Auto) 0.1 x10^3/uL (0.0-0.2) 0.1 x10^3/uL (0.0-0.2) Prothrombin Time 12.8 SEC (11.7-14.0) Prothromb Time International Ratio 1.0 (0.8-1.1) Sodium Level 134 mmol/L (136-145) 137 mmol/L (136-145) Potassium Level 6.8 mmol/L (3.5-5.1) 6.1 mmol/L (3.5-5.1) Chloride Level 93 mmol/L (98-107) 94 mmol/L (98-107) Carbon Dioxide Level 23 mmol/L (21-32) 24 mmol/L (21-32) Anion Gap 18 (6-14) 19 (6-14) Blood Urea Nitrogen 104 mg/dL (8-26) 110 mg/dL (8-26) Creatinine 12.0 mg/dL (0.7-1.3) 12.7 mg/dL (0.7-1.3) Estimated GFR (Cockcroft-Gault) 4.3 4.0 BUN/Creatinine Ratio 9 (6-20) 9 (6-20) Glucose Level 93 mg/dL (70-99) 123 mg/dL (70-99) Calcium Level 7.0 mg/dL (8.5-10.1) 6.7 mg/dL (8.5-10.1) Magnesium Level 2.4 mg/dL (1.8-2.4) Total Bilirubin 0.4 mg/dL (0.2-1.0) 0.4 mg/dL (0.2-1.0) Aspartate Amino Transf (AST/SGOT) 20 U/L (15-37) 19 U/L (15-37) Alanine Aminotransferase (ALT/SGPT) 16 U/L (16-63) 19 U/L (16-63) Alkaline Phosphatase 78 U/L (46-116) 71 U/L (46-116) Creatine Kinase 225 U/L (39-308) Creatine Kinase MB (Mass) 2.2 ng/mL (0.0-3.6) Creatine Kinase MB Relative Index 1.0 % (0-4) Troponin I Quantitative 0.038 ng/mL (0.000-0.055) 0.041 ng/mL (0.000-0.055) DU-Wrv-G-Type Natriuretic Peptide 95856 pg/mL (0-124) Total Protein 7.6 g/dL (6.4-8.2) 7.3 g/dL (6.4-8.2) Albumin 3.7 g/dL (3.4-5.0) 3.6 g/dL (3.4-5.0) Albumin/Globulin Ratio 0.9 (1.0-1.7) 1.0 (1.0-1.7) Lipase 570 U/L (73-393) Glucose (Fingerstick) 23 mg/dL (70-99) Nasal Screen MRSA (PCR) Negative (Negative) Test 09/03/17 08:40 09/03/17 08:44 09/04/17 07:30 Troponin I Quantitative 0.060 ng/mL (0.000-0.055) Glucose (Fingerstick) 93 mg/dL (70-99) White Blood Count 8.9 x10^3/uL (4.0-11.0) Red Blood Count 3.95 x10^6/uL (4.30-5.70) Hemoglobin 12.3 g/dL (13.0-17.5) Hematocrit 36.0 % (39.0-53.0) Mean Corpuscular Volume 91 fL (79-100) Mean Corpuscular Hemoglobin 31 pg (25-35) Mean Corpuscular Hemoglobin Concent 34 g/dL (31-37) Red Cell Distribution Width 13.6 % (11.5-14.5) Platelet Count 257 x10^3/uL (140-400) Neutrophils (%) (Auto) 72 % (31-73) Lymphocytes (%) (Auto) 14 % (24-48) Monocytes (%) (Auto) 10 % (0-9) Eosinophils (%) (Auto) 3 % (0-3) Basophils (%) (Auto) 1 % (0-3) Neutrophils # (Auto) 6.4 x10^3uL (1.8-7.7) Lymphocytes # (Auto) 1.2 x10^3/uL (1.0-4.8) Monocytes # (Auto) 0.9 x10^3/uL (0.0-1.1) Eosinophils # (Auto) 0.3 x10^3/uL (0.0-0.7) Basophils # (Auto) 0.1 x10^3/uL (0.0-0.2) Sodium Level 140 mmol/L (136-145) Potassium Level 5.3 mmol/L (3.5-5.1) Chloride Level 98 mmol/L (98-107) Carbon Dioxide Level 31 mmol/L (21-32) Anion Gap 11 (6-14) Blood Urea Nitrogen 53 mg/dL (8-26) Creatinine 8.8 mg/dL (0.7-1.3) Estimated GFR (Cockcroft-Gault) 6.2 BUN/Creatinine Ratio 6 (6-20) Glucose Level 98 mg/dL (70-99) Calcium Level 8.4 mg/dL (8.5-10.1) Phosphorus Level 7.1 mg/dL (2.6-4.7) Magnesium Level 2.3 mg/dL (1.8-2.4) Total Bilirubin 0.5 mg/dL (0.2-1.0) Aspartate Amino Transf (AST/SGOT) 22 U/L (15-37) Alanine Aminotransferase (ALT/SGPT) 20 U/L (16-63) Alkaline Phosphatase 82 U/L (46-116) Total Protein 8.4 g/dL (6.4-8.2) Albumin 4.0 g/dL (3.4-5.0) Albumin/Globulin Ratio 0.9 (1.0-1.7) Laboratory Tests Test 09/04/17 07:30 White Blood Count 8.9 x10^3/uL (4.0-11.0) Red Blood Count 3.95 x10^6/uL (4.30-5.70) Hemoglobin 12.3 g/dL (13.0-17.5) Hematocrit 36.0 % (39.0-53.0) Mean Corpuscular Volume 91 fL (79-100) Mean Corpuscular Hemoglobin 31 pg (25-35) Mean Corpuscular Hemoglobin Concent 34 g/dL (31-37) Red Cell Distribution Width 13.6 % (11.5-14.5) Platelet Count 257 x10^3/uL (140-400) Neutrophils (%) (Auto) 72 % (31-73) Lymphocytes (%) (Auto) 14 % (24-48) Monocytes (%) (Auto) 10 % (0-9) Eosinophils (%) (Auto) 3 % (0-3) Basophils (%) (Auto) 1 % (0-3) Neutrophils # (Auto) 6.4 x10^3uL (1.8-7.7) Lymphocytes # (Auto) 1.2 x10^3/uL (1.0-4.8) Monocytes # (Auto) 0.9 x10^3/uL (0.0-1.1) Eosinophils # (Auto) 0.3 x10^3/uL (0.0-0.7) Basophils # (Auto) 0.1 x10^3/uL (0.0-0.2) Sodium Level 140 mmol/L (136-145) Potassium Level 5.3 mmol/L (3.5-5.1) Chloride Level 98 mmol/L (98-107) Carbon Dioxide Level 31 mmol/L (21-32) Anion Gap 11 (6-14) Blood Urea Nitrogen 53 mg/dL (8-26) Creatinine 8.8 mg/dL (0.7-1.3) Estimated GFR (Cockcroft-Gault) 6.2 BUN/Creatinine Ratio 6 (6-20) Glucose Level 98 mg/dL (70-99) Calcium Level 8.4 mg/dL (8.5-10.1) Phosphorus Level 7.1 mg/dL (2.6-4.7) Magnesium Level 2.3 mg/dL (1.8-2.4) Total Bilirubin 0.5 mg/dL (0.2-1.0) Aspartate Amino Transf (AST/SGOT) 22 U/L (15-37) Alanine Aminotransferase (ALT/SGPT) 20 U/L (16-63) Alkaline Phosphatase 82 U/L (46-116) Total Protein 8.4 g/dL (6.4-8.2) Albumin 4.0 g/dL (3.4-5.0) Albumin/Globulin Ratio 0.9 (1.0-1.7) Medications Current Medications Albuterol Sulfate (Ventolin Neb Soln) 2.5 mg 1X ONCE NEB Last administered on 09/02/17 21:35; Start 09/02/17 at 22:00; Stop 09/02/17 at 22:01; Status DC Insulin Human Regular (NovoLIN R VIAL) 10 unit 1X ONCE IV Last administered on 09/02/17 21:34; Start 09/02/17 at 22:00; Stop 09/02/17 at 22:01; Status DC Dextrose (Dextrose 50%-Water Syringe) 12.5 gm 1X ONCE IV Last administered on 09/02/17 21:35; Start 09/02/17 at 22:00; Stop 09/02/17 at 22:01; Status DC Fentanyl Citrate (Fentanyl 2ml Vial) 50 mcg 1X ONCE IV Last administered on 21:39; Start 09/02/17 at 22:00; Stop 09/02/17 at 22:01; Status DC Sodium Polystyrene Sulfonate (Kayexalate) 60 gm 1X ONCE PO Last administered on 09/02/17 23:07; Start 09/02/17 at 22:00; Stop 09/02/17 at 22:01; Status DC Ondansetron HCl (Zofran) 4 mg 1X ONCE IV Last administered on 09/03/17 00:12 ; Start 09/02/17 at 22:00; Stop 09/02/17 at 22:01; Status DC Ondansetron HCl (Zofran) 4 mg PRN Q8HRS PRN IV NAUSEA/VOMITING; Start at 22:00; Stop 09/03/17 at 21:59; Status DC Fentanyl Citrate (Fentanyl 2ml Vial) 50 mcg PRN Q1HR PRN IV SEVERE PAIN Last administered on 09/03/17 01:31; Start 09/02/17 at 22:00; Stop 09/03/17 at 21 :59; Status DC Dextrose (Dextrose 50%-Water Syringe) 25 gm 1X ONCE IV Last administered on 22:29; Start 09/02/17 at 23:00; Stop 09/02/17 at 23:01; Status DC Alprazolam (Xanax) 0.5 mg PRN TID PRN PO ANXIETY / AGITATION Last administered on 09/04/17 08:08; Start 09/03/17 at 01:15 Calcium Carbonate/ Glycine (Tums) 500 mg TIDAC PO Last administered on 08:03; Start 09/03/17 at 07:30 Clopidogrel Bisulfate (Plavix) 75 mg DAILY PO Last administered on 09/04/17 08:07; Start 09/03/17 at 09:00 Vitamin B Complex/ Vitamin C (Frances-Chilo) 1 tab DAILY PO Last administered on 08:04; Start 09/03/17 at 09:00 Furosemide (Lasix) 80 mg BID94 PO Last administered on 09/04/17 08:08; Start 09/03/17 at 09:00 Hydralazine HCl (Apresoline) 50 mg TID PO Last administered on 09/04/17 08:07 ; Start 09/03/17 at 09:00 Acetaminophen/ Hydrocodone Bitart (Lortab 5/325) 1 tab PRN Q6HRS PRN PO SEVERE PAIN; Start 09/03/17 at 01:15 Pantoprazole Sodium (Protonix) 40 mg BIDAC PO Last administered on 09/04/17 08:03; Start 09/03/17 at 07:30 Paroxetine HCl (Paxil) 40 mg DAILY PO Last administered on 09/04/17 08:04; Start 09/03/17 at 09:00 Tamsulosin HCl (Flomax) 0.4 mg QHS PO Last administered on 09/03/17 20:28; Start 09/03/17 at 21:00 Metoprolol Tartrate (Lopressor) 100 mg BID PO Last administered on 09/04/17 08:08; Start 09/03/17 at 09:00 Non-Formulary Medication 20 mg DAILY PO ; Start 09/03/17 at 09:00; Status UNV Dextrose (Dextrose 50%-Water Syringe) 12.5 gm PRN Q15MIN PRN IV SEE COMMENTS; Start 09/03/17 at 01:15 Sodium Chloride 1,000 ml @ 1,000 mls/hr Q1H PRN IV hypotension; Start at 06:10; Stop 09/03/17 at 12:09; Status DC Sodium Chloride 1,000 ml @ 400 mls/hr Q2H30M PRN IV PATENCY; Start 09/03/17 at 06:10; Stop 09/03/17 at 18:09; Status DC Info (PHARMACY MONITORING -- do not chart) 1 each PRN DAILY PRN MC SEE COMMENTS ; Start 09/03/17 at 06:15 Diphenhydramine HCl (Benadryl) 50 mg 1X ONCE IVP Last administered on t 07:32; Start 09/03/17 at 07:30; Stop 09/03/17 at 07:31; Status DC Magnesium Sulfate/ Dextrose 50 ml @ 25 mls/hr PRN DAILY PRN IV for Mag < 1.7 on am labs; Start 09/03/17 at 08:15 Sodium Chloride 1,000 ml @ 1,000 mls/hr Q1H PRN IV hypotension; Start at 10:08; Stop 09/04/17 at 16:07 Diphenhydramine HCl (Benadryl) 50 mg 1X ONCE IV Last administered on t 11:01; Start 09/04/17 at 10:15; Stop 09/04/17 at 10:16; Status DC Sodium Chloride 1,000 ml @ 400 mls/hr Q2H30M PRN IV PATENCY; Start 09/04/17 at 10:08; Stop 09/04/17 at 22:07 Info (PHARMACY MONITORING -- do not chart) 1 each PRN DAILY PRN MC SEE COMMENTS ; Start 09/04/17 at 10:15; Status UNV Active Scripts Active Xanax (Alprazolam) 0.5 Mg Tablet 0.5 Mg PO TID PRN LAST DOSE: 02/23/16 BEDTIME NEXT DOSE: 02/24/16 BEDTIME Flomax (Tamsulosin Hcl) 0.4 Mg Cap.er.24h 0.4 Mg PO QHS Reported Metoprolol Tartrate 100 Mg Tablet 1 Tab PO BID Pantoprazole Sodium 40 Mg Tablet.dr 40 BID Plavix (Clopidogrel Bisulfate) 75 Mg Tablet 75 DAILY Losartan Potassium 100 Mg Tablet 100 DAILY Furosemide 80 Mg Tablet 80 BID Hydralazine Hcl 50 Mg Tablet 50 TID Hydrocodone-Apap 5-325 (Hydrocodone Bit/Acetaminophen) 1 Each Tablet 1 Tab PO PRN Q6HRS PRN Nephro-Chilo Tablet (Folic Acid/Vitamin B Comp W-C) 0.8 Mg Tablet 1 Tab PO DAILY Paroxetine Hcl 20 Mg Tablet 40 Mg PO DAILY Tums (Calcium Carbonate) 200 Mg Tab.chew 800 Mg PO TIDAC Omeprazole Magnesium 20 Mg Capsule.dr 20 Mg PO DAILY Vitals/I & O Vital Sign - Last 24 Hours 09/03/17 09/03/17 09/03/17 09/03/17 16:00 16:00 19:55 20:00 Temp 98.0 98.3 98.0 98.3 Pulse 69 69 Resp 11 17 B/P (MAP) 145/75 (98) 141/69 (93) Pulse Ox 99 O2 Delivery Room Air Room Air Room Air Room Air 09/03/17 09/03/17 09/04/17 09/04/17 20:28 20:29 00:00 00:06 Temp 98.3 98.3 Pulse 69 69 64 Resp 20 B/P (MAP) 141/69 141/69 148/62 (90) Pulse Ox 99 O2 Delivery Room Air Room Air 09/04/17 09/04/17 09/04/17 09/04/17 04:00 04:00 08:00 08:00 Temp 98.1 98.1 Pulse 62 60 Resp 12 14 B/P (MAP) 154/73 (100) Pulse Ox 99 O2 Delivery Room Air Room Air Room Air Room Air 09/04/17 09/04/17 08:07 08:08 B/P (MAP) 154/73 154/73 YIN QUARLES III DO Sep 04, 2017 13:44
[2017-09-04 15:00] VITALS: BP 148/54
--- NOTE | 2017-09-05 11:58 | DS ---
DATE OF DISCHARGE: 09/04/2017 DATE OF ADMISSION: 09/02/2017 DATE OF DISCHARGE: 09/04/2017 ADMISSION DIAGNOSES: Hypercalcemia and hyperkalemia, end-stage renal disease, volume overload. DISCHARGE DIAGNOSES: Resolving electrolyte disturbances, end-stage renal disease, a new diagnosis of lung cancer. He apparently has a small nodule that is being treated at . HOSPITAL COURSE: The patient is a pleasant 62-year-old male well known to our service, basically he presented with electrolyte disturbances. He is on dialysis. We admitted him. We dialyzed him a couple of days. Now, he is back to his baseline. He wants to go. We are discharging this afternoon. DISPOSITION: Home. ACTIVITY: As tolerated. DIET: Low sodium. MEDICATIONS: Please see the MRAD. TOTAL TIME ON DISCHARGE: 38 minutes. YIN QUARLES DO DR: EVELIN/alyson JOB#: [id number] / [id number]
[2017-09-30] MEDS ORDERED: HYDR-2758 PO (11:58)
[2017-09-30] MEDS ORDERED: LOSA50TA2 PO (11:58)
== END 2017-09-04 15:05 | disposition home or self-care (01) | DRG 640 ==
LOC: ER 19:53 → 1 WEST ICU 22:30
PROVIDERS: ADMIT Internal Medicine; ATTEND Internal Medicine
PROC: 5A1D70Z Performance of Urinary Filtration, Intermittent, Less than 6 Hours Per Day (ICD-10-PCS; 2017-09-03)
PROC: 5A1D70Z Performance of Urinary Filtration, Intermittent, Less than 6 Hours Per Day (ICD-10-PCS; principal; 2017-09-04)
DX: E87.5 Hyperkalemia (principal); N18.6 End stage renal disease; I63.9 Cerebral infarction, unspecified; I13.2 Hypertensive heart and chronic kidney disease with heart failure and with stage 5 chronic kidney disease, or end stage renal disease; E11.22 Type 2 diabetes mellitus with diabetic chronic kidney disease; I48.91 Unspecified atrial fibrillation; C34.90 Malignant neoplasm of unspecified part of unspecified bronchus or lung; E87.70 Fluid overload, unspecified; E11.649 Type 2 diabetes mellitus with hypoglycemia without coma; I25.10 Atherosclerotic heart disease of native coronary artery without angina pectoris; I50.9 Heart failure, unspecified; C67.9 Malignant neoplasm of bladder, unspecified; F41.9 Anxiety disorder, unspecified; K21.9 Gastro-esophageal reflux disease without esophagitis; Z96.1 Presence of intraocular lens; E21.3 Hyperparathyroidism, unspecified; F32.9 Major depressive disorder, single episode, unspecified; Z82.3 Family history of stroke; Z83.3 Family history of diabetes mellitus; Z87.891 Personal history of nicotine dependence; Z90.49 Acquired absence of other specified parts of digestive tract; Z91.19 Patient's noncompliance with other medical treatment and regimen; Z95.5 Presence of coronary angioplasty implant and graft; Z99.2 Dependence on renal dialysis
CPT/HCPCS: 36415; 71010; 80053; 82550; 82553; 82962; 83690; 83735; 83880; 84100; 84484; 85025; 85610; 87641; 93005; 94640; 96374; 96375; J1200; J1815; J2405; J3010; J7042; J7613; 99291-25

== ENCOUNTER 2017-10-12 21:17 | Inpatient (IN) | payer MEDICARE ==
[~2017-10-12] VITALS: Ht 170.2 cm; Wt 73.9 kg
[~2017-10-12 21:17] MED LIST changes: +LOSA50TA2 PO
--- NOTE | 2017-10-12 21:24 | PHYS DOC ---
Past Medical History Past Medical History: A-Fib, Anxiety, Cancer, CHF, High Cholesterol, Hypertension, [place], Pancreatitis, Renal Disease, Renal Failure Additional Past Medical Histor: Ulcers, Cardiac Stent, polycystic disease, dialysis Past Surgical History: Appendectomy, Cholecystectomy, Coronary Bypass Surgery, Other Additional Past Surgical Histo: Dialysis shunt L) arm. cardiac stent, lens implants Alcohol Use: Sober Drug Use: None Adult General Chief Complaint Chief Complaint: MULTIPLE COMPLAINTS HPI HPI Patient is a 62 year old male well known to this emergency department hospital presenting to the emergency department for evaluation of multiple areas of pain and cramps that has been going on since his dialysis finished this morning. Patient is Saturday dialysis and received his dialysis this morning and says that his entire body is cramping including his chest abdomen back and extremities. He says the worst cramping is in his hands and his feet bilaterally. He is in no obvious distress with normal vital signs. Review of Systems Review of Systems Constitutional: Denies fever or chills [] Eyes: Denies change in visual acuity, redness, or eye pain [] HENT: Denies nasal congestion or sore throat [] Respiratory: Denies cough or shortness of breath [] Cardiovascular: + CP GI: + abdominal pain. No nausea, vomiting, bloody stools or diarrhea [] : Denies dysuria or hematuria [] Musculoskeletal: Denies back pain or joint pain [] Integument: Denies rash or skin lesions [] Neurologic: Denies headache, focal weakness or sensory changes [] All other systems were reviewed and found to be within normal limits, except as documented in this note. Current Medications Current Medications Current Medications Medications (Trade) Dose Ordered Sig/Cirilo Start Time Stop Time Status Last Admin Dose Admin Acetaminophen/ Hydrocodone Bitart (Lortab 5/325) 2 tab 1X ONCE 10/12/17 22:00 10/12/17 22:01 DC 10/12/17 21:48 2 TAB Albuterol Sulfate (Ventolin Neb Soln) 2.5 mg 1X ONCE 10/12/17 23:00 10/12/17 23:01 Calcium/Vitamin D (Oscal D 500mg/ 200uts) 1 tab 1X ONCE 10/12/17 23:00 10/12/17 23:01 Famotidine (Pepcid) 20 mg 1X ONCE 10/12/17 22:00 10/12/17 22:01 DC 10/12/17 21:50 20 MG Lorazepam (Ativan) 1 mg 1X ONCE 10/12/17 22:00 10/12/17 22:01 DC 10/12/17 21:48 1 MG Multi-Ingredient Mouthwash/Gargle (Gi Cocktail Single Dose) 15 ml 1X ONCE 10/12/17 22:00 10/12/17 22:01 DC 10/12/17 21:49 15 ML Ondansetron HCl (Zofran) 4 mg PRN Q8HRS PRN 10/12/17 22:30 10/13/17 22:29 Sodium Polystyrene Sulfonate (Kayexalate) 30 gm 1X ONCE 10/12/17 23:00 10/12/17 23:01 Sodium Chloride 250 ml @ 250 mls/hr 1X ONCE 10/12/17 23:00 10/12/17 23:59 Allergies Allergies Allergies Coded Allergies Type Severity Reaction Last Updated Verified aspirin Allergy Intermediate 04/16/17 Yes Physical Exam Physical Exam Constitutional: Well developed, well nourished, no acute distress, non-toxic appearance. [] HENT: Normocephalic, atraumatic, bilateral external ears normal, oropharynx moist, no oral exudates, nose normal. [] Eyes: PERRLA, EOMI, conjunctiva normal, no discharge. [] Neck: Normal range of motion, no tenderness, supple, no stridor. [] Cardiovascular:Heart rate regular rhythm, no murmur [] Lungs & Thorax: Bilateral breath sounds clear to auscultation [] Abdomen: Bowel sounds normal, soft, no tenderness, no masses, no pulsatile masses. [] Skin: Warm, dry, no erythema, no rash. [] Back: No tenderness, no CVA tenderness. [] Extremities: No tenderness, no cyanosis, no clubbing, ROM intact, no edema. [] Neurologic: Alert and oriented X 3, normal motor function, normal sensory function, no focal deficits noted. [] Current Patient Data Vital Signs Vital Signs Date Time Temp Pulse Resp B/P (MAP) Pulse Ox O2 Delivery O2 Flow Rate FiO2 10/12/17 21:54 85 20 178/87 (117) 98 Room Air 10/12/17 21:20 98.1 98.1 Lab Values Laboratory Tests Test 10/12/17 21:45 White Blood Count 7.3 x10^3/uL (4.0-11.0) Red Blood Count 3.60 x10^6/uL (4.30-5.70) L Hemoglobin 11.3 g/dL (13.0-17.5) L Hematocrit 33.3 % (39.0-53.0) L Mean Corpuscular Volume 92 fL (79-100) Mean Corpuscular Hemoglobin 32 pg (25-35) Mean Corpuscular Hemoglobin Concent 34 g/dL (31-37) Red Cell Distribution Width 14.2 % (11.5-14.5) Platelet Count 185 x10^3/uL (140-400) Neutrophils (%) (Auto) 70 % (31-73) Lymphocytes (%) (Auto) 13 % (24-48) L Monocytes (%) (Auto) 13 % (0-9) H Eosinophils (%) (Auto) 3 % (0-3) Basophils (%) (Auto) 1 % (0-3) Neutrophils # (Auto) 5.1 x10^3uL (1.8-7.7) Lymphocytes # (Auto) 0.9 x10^3/uL (1.0-4.8) L Monocytes # (Auto) 1.0 x10^3/uL (0.0-1.1) Eosinophils # (Auto) 0.2 x10^3/uL (0.0-0.7) Basophils # (Auto) 0.1 x10^3/uL (0.0-0.2) Sodium Level 140 mmol/L (136-145) Potassium Level 6.2 mmol/L (3.5-5.1) *H Chloride Level 102 mmol/L (98-107) Carbon Dioxide Level 26 mmol/L (21-32) Anion Gap 12 (6-14) Blood Urea Nitrogen 51 mg/dL (8-26) H Creatinine 10.6 mg/dL (0.7-1.3) H Estimated GFR (Cockcroft-Gault) 5.0 BUN/Creatinine Ratio 5 (6-20) L Glucose Level 98 mg/dL (70-99) Calcium Level 6.8 mg/dL (8.5-10.1) L Magnesium Level 2.2 mg/dL (1.8-2.4) Total Bilirubin 0.3 mg/dL (0.2-1.0) Aspartate Amino Transferase (AST) 19 U/L (15-37) Alanine Aminotransferase (ALT) 14 U/L (16-63) L Alkaline Phosphatase 84 U/L (46-116) Troponin I Quantitative 0.101 ng/mL (0.000-0.055) Total Protein 7.2 g/dL (6.4-8.2) Albumin 3.8 g/dL (3.4-5.0) Albumin/Globulin Ratio 1.1 (1.0-1.7) Laboratory Tests 10/12/17 21:45 Laboratory Tests 10/12/17 21:45 EKG EKG NSR at 84 bpm with normal axis, no obvious CHARLI or depression with inverted T waves in lateral leads. Radiology/Procedures Radiology/Procedures [] Course & Med Decision Making Course & Med Decision Making Patient has low calcium which is likely causing the cramps. Potassium is elevated and there is no signs of hemolysis. I spoke to Dr. Chery and he asked me to give 30 g of Kayexalate and admit him overnight and then repeat potassium in the morning. He has no obvious peaked T waves with a normal QRS length so he'll be admitted in guarded condition to the CVC unit. Dragon Disclaimer Dragon Disclaimer This electronic medical record was generated, in whole or in part, using a voice recognition dictation system. Departure Departure Impression: Primary Impression: Hyperkalemia Additional Impressions: End stage renal disease Hypocalcemia Cramp and spasm Elevated troponin I level Disposition: ADMITTED INPATIENT Admitting Physician: Catie Chowdary Condition: GUARDED Referrals: NO PCP (PCP) Problem Qualifiers JUDY THOMPSON DO Oct 12, 2017 21:24
[2017-10-12 21:55] LABS: BASO # 0.1 x10^3/uL (0.0-0.2); BASO % 1 % (0-3); EOS % 3 % (0-3); HEMATOCRIT 33.3 % (39.0-53.0); HEMOGLOBIN 11.3 g/dL (13.0-17.5); LYMPH # 0.9 x10^3/uL (1.0-4.8); LYMPH % 13 % (24-48); MEAN CORPUSCULAR HEMOGLOBIN 32 pg (25-35); MEAN CORPUSCULAR HGB CONC 34 g/dL (31-37); MEAN CORPUSCULAR VOLUME 92 fL (79-100); MONO % 13 % (0-9); NEUT % 70 % (31-73); PLATELET COUNT 185 x10^3/uL (140-400); RED CELL DISTRIBUTION WIDTH 14.2 % (11.5-14.5); WHITE BLOOD COUNT 7.3 x10^3/uL (4.0-11.0)
[2017-10-12] MEDS ORDERED: FAMOTIDINE 20 MG TABLET. PO ONE (22:00)
[2017-10-12] MEDS ORDERED: LIDO:MAALOX:DONNATAL 1:1:1 15 ML SINGLE DOSE SWSW ONE (22:00)
[2017-10-12] MEDS ORDERED: ONDANSETRON PF 4 MG/2 ML VIAL. IV ONE (22:00)
[2017-10-12] MEDS ORDERED: HYDROcodone/APAP 5/325MG 1 TAB TABLET PO ONE (22:00)
[2017-10-12 22:09] LABS: ALBUMIN 3.8 g/dL (3.4-5.0); ALBUMIN/GLOBULIN RATIO 1.1 (1.0-1.7); CALCIUM 6.8 mg/dL (8.5-10.1); CREATININE 10.6 mg/dL (0.7-1.3); MAGNESIUM 2.2 mg/dL (1.8-2.4); TOTAL BILIRUBIN 0.3 mg/dL (0.2-1.0); TOTAL PROTEIN 7.2 g/dL (6.4-8.2)
[2017-10-12 22:12] LABS: POTASSIUM 6.2 mmol/L (3.5-5.1)
[2017-10-12] MEDS ORDERED: ONDANSETRON PF 4 MG/2 ML VIAL. IV PRN (22:30)
[2017-10-12] MEDS ORDERED: CALCIUM CARB/VIT D3 500/200 TABLET. PO ONE (23:00)
[2017-10-12] MEDS ORDERED: ALBUTEROL SULFATE 2.5 MG/3 ML NEBU. NEB ONE (23:00)
[2017-10-12] MEDS ORDERED: IV NORMAL SALINE 250ML 250 ML IV ONE (23:00)
[2017-10-12] MEDS ORDERED: SODIUM POLYSTYRENE SULFONATE 15 GM/60 ML ORAL.SUSP. PO ONE (23:00)
[2017-10-12 23:45] VITALS: BP 136/74
[2017-10-13] MEDS: ALPRAZolam 0.5 MG TABLET PO PRN ×2 (00:02→09:56)
[2017-10-13 03:15] VITALS: BP 127/69
[2017-10-13 07:00] VITALS: BP 132/68
--- NOTE | 2017-10-13 07:32 | EKG ---
[facility] [address] [place] [address] Test Date: 2017-10-12 Test Time: 21:24:55 Pat Name: IVORY OCONNOR Department: Room: 248 1 Gender: M [employer] Furn[employer]: : [id number] Requested By: JUDY THOMPSON Order Number: [id number] Reading MD: Enio Robison Measurements Intervals [place] Rate: 84 P: 52 AK: 152 QRS: -12 QRSD: 104 T: 156 QT: 404 QTc: 481 Interpretive Statements SINUS RHYTHM LEFTWARD AXIS T ABNORMALITY IN ANTEROLATERAL LEADS INFEROLATERAL LEADS PROLONGED QT ABNORMAL ECG Electronically Signed On 10-21-2017 14:21:39 [employer] DEPUTY DIRECT[employer] by Enio Robison
[2017-10-13 08:43] LABS: CALCIUM 6.9 mg/dL (8.5-10.1); CREATININE 11.4 mg/dL (0.7-1.3); GFR 4.6; POTASSIUM 4.9 mmol/L (3.5-5.1)
[2017-10-13] MEDS ORDERED: HYDROcodone/APAP 5/325MG 1 TAB TABLET PO PRN (10:15)
[2017-10-13 11:00] VITALS: BP 136/64
[2017-10-13] MEDS ORDERED: LOSARTAN POTASSIUM 50 MG TABLET. PO SCH (11:00)
[2017-10-13] MEDS ORDERED: FOLIC/VIT B COMP W-C (RENAL) TABLET. PO SCH (11:00)
[2017-10-13] MEDS ORDERED: CLOPIDOGREL BISULFATE 75 MG TABLET PO SCH (11:00)
[2017-10-13] MEDS ORDERED: PARoxetine 20 MG TABLET PO SCH (11:00)
[2017-10-13] MEDS ORDERED: CALCIUM CARBONATE 500 MG TAB.CHEW PO SCH (11:30)
[2017-10-13 11:46] VITALS: BP 136/64
[2017-10-13] MEDS ORDERED: FUROSEMIDE 80 MG TABLET. PO SCH (14:00)
[2017-10-13] MEDS ORDERED: HEPARIN PF 500 UNIT/5 ML DISP.SYRIN. IV ONE (14:30)
[2017-10-13] MEDS ORDERED: TAMSULOSIN 0.4 MG CAP.ER.24H. PO SCH (21:00)
--- NOTE | 2017-10-14 00:39 | CONS ---
DATE OF CONSULTATION: 10/13/2017 REQUESTING PHYSICIAN: Hospitalist. REASON FOR CONSULTATION: Renal failure. HISTORY OF PRESENT ILLNESS: The patient is a 62-year-old gentleman admitted to the Emergency Department with cramping following dialysis. The patient has had no nausea, vomiting or diarrhea. PAST MEDICAL HISTORY: 1. Polycystic kidney disease, end-stage renal disease secondary to his polycystic kidney disease, hemodialysis dependent. 2. Anemia of chronic kidney disease. 3. Secondary hyperparathyroidism in renal disease. 4. Congestive cardiomyopathy. 5. Hypertension. 6. Hyperlipidemia. 7. Pancreatitis. 8. Anxiety. 9. Atrial fibrillation. 10. Appendectomy. 11. Cholecystectomy. 12. Coronary bypass grafting. 13. Dialysis AV fistula, left upper extremity. 14. Cataract lens implants. ALLERGIES: ASPIRIN. MEDICATIONS: Per med list. FAMILY HISTORY: Noncontributory. SOCIAL HISTORY: The patient resides with family. REVIEW OF SYSTEMS: No headaches, sinus problem, nasal drainage, epistaxis, change in vision or hearing. No difficulty swallowing. No fever, chills, cough, sputum production or hemoptysis. No chest pain, shortness of breath, PND, orthopnea or dyspnea on exertion. No abdominal pain or upper or lower gastrointestinal blood loss. No nausea, vomiting, diarrhea or seizures. No further cramping. PHYSICAL EXAMINATION: APPEARANCE: The patient is awake, conversant, appropriate. HEENT: Clear. NECK: No increased JVD. No thyromegaly, mass or adenopathy. LUNGS: Clear in all chaudhary. CARDIAC: Without S3 or rub. ABDOMEN: Soft, nontender, no bruits. EXTREMITIES: Without edema. NEUROLOGIC: Nonfocal localizing. PSYCHIATRIC: Good attention to detail, appropriate affect. LABORATORY DATA: Hemoglobin 11.3, hematocrit 33%. Potassium 4.9, CO2 of 27, creatinine 11.4. IMPRESSION: Renal failure with cramping following dialysis, likely due to fluid removal. His potassium was initially elevated on presentation at 6.2, but has normalized at 4.9 with Kayexalate. RECOMMENDATIONS: He would like to go home and is currently appropriate from renal standpoint for discharge to home. He will follow up for his next dialysis per routine, which is Saturday, and Saturday. ZUHAIR IBRAHIM MD DR: LUNA/alyson JOB#: [id number] / [id number]
--- NOTE | 2017-10-18 10:24 | DS ---
DATE OF DISCHARGE: 10/13/2017 ADMISSION DIAGNOSES: Hyperkalemia, weakness and cramping. DISCHARGE DIAGNOSIS: Resolving hyperkalemia. End-stage renal disease, on dialysis. HOSPITAL COURSE: The patient is a pleasant 62-year-old male, well known to our service. We admit him quite often with complications of his kidney disease. He is on dialysis. At this time, he had cramps. He has hyperkalemia. We admitted him. We consulted Nephrology, went for dialysis. He did well. We discharged to home. DISPOSITION: Home. ACTIVITY: As tolerated. DIET: Low sodium. MEDICATIONS: Please see the MRAD. TOTAL TIME: 32 minutes. YIN QUARLES DO DR: EVELIN/alyson JOB#: [id number] / [id number]
--- NOTE | 2017-10-22 22:55 | HP ---
ADMIT DATE: 10/12/2017 CHIEF COMPLAINT: Cramping. HISTORY OF PRESENT ILLNESS: The patient is a pleasant 62-year-old male well known to our service. He has end-stage renal disease. He is on dialysis. He periodically comes in with heart failure and/or electrolyte disturbances. This time, he has got hyperkalemia. His legs are cramping. He rates his symptoms at 9/10. He has associated weakness and shortness of breath. I have discussed the case with ER physician. We are going to admit the patient and consult Nephrology and deemed dialyzed. PAST MEDICAL HISTORY: End-stage renal disease on dialysis, CHF, recent diagnosis of lung cancer and now he is getting chemotherapy, bladder cancer, a-fib, anxiety, hyperlipidemia, hypertension, myocardial infarction, pancreatitis, peptic ulcer disease, cardiac stents, polycystic kidney disease, appendectomy, cholecystectomy, left arm shunt and lens implants. ALLERGIES: ASPIRIN. FAMILY HISTORY: Diabetes. SOCIAL HISTORY: Does not drink, smoke or take drugs. MEDICATIONS: Reviewed. REVIEW OF SYSTEMS: GENERAL: No history of weight change, weakness or fevers. SKIN: No bruising, hair changes or rashes. EYES: No blurred, double or loss of vision. NOSE AND THROAT: No history of nosebleeds, hoarseness or sore throat. HEART: No history of palpitations, chest pain or shortness of breath on exertion. LUNGS: Denies cough, hemoptysis, wheezing or shortness of breath. GASTROINTESTINAL: Denies changes in appetite, nausea, vomiting, diarrhea or constipation. GENITOURINARY: No history of frequency, urgency, hesitancy or nocturia. NEUROLOGIC: Denies history of numbness, tingling, tremor or weakness. PSYCHIATRIC: No history of panic, anxiety or depression. ENDOCRINE: No history of heat or cold intolerance, polyuria or polydipsia. EXTREMITIES: He complains of cramping. PHYSICAL EXAMINATION: VITAL SIGNS: Stable. GENERAL: He is alert, cooperative. HEART: S1, S2. LUNGS: Clear. ABDOMEN: Soft. EXTREMITIES: Trace edema. SKIN: No rashes. ENDOCRINE: No thyromegaly. LYMPHATICS: No cervical nodes. HEMATOPOIETIC: No bruising. LABORATORY DATA: Electrolytes: Sodium is 140, potassium 6.2, chloride 102, bicarbonate 26, BUN 51, creatinine 10.6, glucose 98. ASSESSMENT AND PLAN: Hyperkalemia with musculoskeletal cramping. The patient is being admitted, we will consult nephrology. We will get him dialyzed, p.r.n. narcotics. Continue his home meds. Gentle IV diuresis. We will give him 15 grams of Kayexalate. We will give him one DuoNeb, one amp of calcium carbonate, p.r.n. Zofran and frequent labs. PROGNOSIS: Guarded. YIN QUARLES DO DR: EVELIN/alyson JOB#: [id number] / [id number]
== END 2017-10-13 16:56 | disposition home or self-care (01) | DRG 640 ==
LOC: ER 21:17 → 2 SOUTH 22:15
PROVIDERS: ADMIT Internal Medicine; ATTEND Internal Medicine
DX: E87.5 Hyperkalemia (principal); N18.6 End stage renal disease; I13.2 Hypertensive heart and chronic kidney disease with heart failure and with stage 5 chronic kidney disease, or end stage renal disease; I42.0 Dilated cardiomyopathy; E83.51 Hypocalcemia; I48.91 Unspecified atrial fibrillation; N25.81 Secondary hyperparathyroidism of renal origin; Q61.3 Polycystic kidney, unspecified; R25.2 Cramp and spasm; D63.1 Anemia in chronic kidney disease; E78.5 Hyperlipidemia, unspecified; R74.8 Abnormal levels of other serum enzymes; F41.9 Anxiety disorder, unspecified; Z96.1 Presence of intraocular lens; I50.9 Heart failure, unspecified; E78.00 Pure hypercholesterolemia, unspecified; Z90.49 Acquired absence of other specified parts of digestive tract; Z95.5 Presence of coronary angioplasty implant and graft; Z99.2 Dependence on renal dialysis; Z95.1 Presence of aortocoronary bypass graft; Z88.6 Allergy status to analgesic agent; Z85.9 Personal history of malignant neoplasm, unspecified; I25.2 Old myocardial infarction
CPT/HCPCS: 36415; 80048; 80053; 83735; 84484; 85025; 93005; 96374; 96375; J2060; J2405; J7050; 99285-25; J7030

== ENCOUNTER 2017-12-28 18:54 | Emergency (ER) | payer MEDICARE ==
[2017-12-28 19:44] LABS: ADD MAN DIFF? YES; BASO # 0.1 x10^3/uL (0.0-0.2); BASO % 1 % (0-3); EOS # 0.1 x10^3/uL (0.0-0.7); EOS % 2 % (0-3); HEMATOCRIT 40.6 % (39.0-53.0); HEMOGLOBIN 14.1 g/dL (13.0-17.5); LYMPH # 0.3 x10^3/uL (1.0-4.8); LYMPH % 5 % (24-48); MEAN CORPUSCULAR HEMOGLOBIN 32 pg (25-35); MEAN CORPUSCULAR HGB CONC 35 g/dL (31-37); MEAN CORPUSCULAR VOLUME 92 fL (79-100); MONO # 0.7 x10^3/uL (0.0-1.1); MONO % 12 % (0-9); NEUT # 4.8 x10^3uL (1.8-7.7); NEUT % 79 % (31-73); PLATELET COUNT 163 x10^3/uL (140-400); RED BLOOD COUNT 4.42 x10^6/uL (4.30-5.70); RED CELL DISTRIBUTION WIDTH 13.9 % (11.5-14.5)
[2017-12-28 19:53] LABS: ANION GAP 13 (6-14); BLOOD UREA NITROGEN 31 mg/dL (8-26); BUN/CREATININE RATIO 4 (6-20); CARBON DIOXIDE 31 mmol/L (21-32); CHLORIDE 90 mmol/L (98-107); CREATININE 7.6 mg/dL (0.7-1.3); GFR 7.3; GLUCOSE 197 mg/dL (70-99); POTASSIUM 4.5 mmol/L (3.5-5.1); SODIUM 134 mmol/L (136-145)
[2017-12-28 19:59] LABS: ALBUMIN 3.4 g/dL (3.4-5.0); ALBUMIN/GLOBULIN RATIO 0.7 (1.0-1.7); ALK PHOS 75 U/L (46-116); ALT (SGPT) 15 U/L (16-63); AST (SGOT) 23 U/L (15-37); LIPASE 152 U/L (73-393); TOTAL BILIRUBIN 0.5 mg/dL (0.2-1.0); TOTAL PROTEIN 8.1 g/dL (6.4-8.2)
[2017-12-28 20:37] LABS: % BANDS 5 % (0-9); % EOS 2 % (0-5); % LYMPHS 5 % (24-48); % MONOS 7 % (0-10); % SEGS 81 % (35-66); PLT ESTIMATE ADEQUATE (ADEQUATE)
[2017-12-28] MEDS: MORPHINE SULFATE 4 MG/ML DISP.SYRIN. IV ×2 (21:21)
[2017-12-28] MEDS: ONDANSETRON PF 4 MG/2 ML VIAL. IV ×2 (21:21)
== END 2017-12-28 21:45 | disposition home or self-care (01) ==
LOC: ER 18:54
DX: T82.898A Other specified complication of vascular prosthetic devices, implants and grafts, initial encounter (principal); F32.9 Major depressive disorder, single episode, unspecified; R10.84 Generalized abdominal pain; R11.2 Nausea with vomiting, unspecified; R19.7 Diarrhea, unspecified; E78.00 Pure hypercholesterolemia, unspecified; I11.0 Hypertensive heart disease with heart failure; I50.9 Heart failure, unspecified; I48.91 Unspecified atrial fibrillation; I25.2 Old myocardial infarction; Z95.5 Presence of coronary angioplasty implant and graft; Z95.1 Presence of aortocoronary bypass graft; Z90.49 Acquired absence of other specified parts of digestive tract; Z99.2 Dependence on renal dialysis; Z88.6 Allergy status to analgesic agent; Y92.89 Other specified places as the place of occurrence of the external cause
CPT/HCPCS: 36415; 80053; 83690; 85007; 85025; 93005; 96374; 96375; 99285-25; J2270; J2405

== ENCOUNTER 2018-02-24 15:53 | Inpatient (IN) | payer MEDICARE ==
[2018-02-24 16:52] LABS: ADD MAN DIFF? NO
[2018-02-24 16:55] LABS: BASO # 0.1 x10^3/uL (0.0-0.2); BASO % 1 % (0-3); EOS # 0.3 x10^3/uL (0.0-0.7); EOS % 3 % (0-3); HEMATOCRIT 42.4 % (39.0-53.0); HEMOGLOBIN 13.9 g/dL (13.0-17.5); LYMPH % 11 % (24-48); MEAN CORPUSCULAR HEMOGLOBIN 31 pg (25-35); MEAN CORPUSCULAR HGB CONC 33 g/dL (31-37); MEAN CORPUSCULAR VOLUME 94 fL (79-100); MONO % 11 % (0-9); NEUT # 6.8 x10^3uL (1.8-7.7); NEUT % 75 % (31-73); PLATELET COUNT 191 x10^3/uL (140-400); RED BLOOD COUNT 4.51 x10^6/uL (4.30-5.70); WHITE BLOOD COUNT 9.1 x10^3/uL (4.0-11.0)
[2018-02-24 17:13] LABS: ALBUMIN 3.5 g/dL (3.4-5.0); ALBUMIN/GLOBULIN RATIO 0.9 (1.0-1.7); ALK PHOS 72 U/L (46-116); ALT (SGPT) 20 U/L (16-63); ANION GAP 14 (6-14); AST (SGOT) 17 U/L (15-37); BLOOD UREA NITROGEN 70 mg/dL (8-26); BUN/CREATININE RATIO 6 (6-20); CALCIUM 7.8 mg/dL (8.5-10.1); CARBON DIOXIDE 26 mmol/L (21-32); CHLORIDE 100 mmol/L (98-107); CREATININE 11.8 mg/dL (0.7-1.3); GFR 4.4; GLUCOSE 87 mg/dL (70-99); LIPASE 328 U/L (73-393); MAGNESIUM 2.6 mg/dL (1.8-2.4); SODIUM 140 mmol/L (136-145); TOTAL BILIRUBIN 0.7 mg/dL (0.2-1.0); TOTAL PROTEIN 7.6 g/dL (6.4-8.2)
[2018-02-24 17:17] LABS: POTASSIUM 6.3 mmol/L (3.5-5.1)
[2018-02-24] MEDS ORDERED: ONDANSETRON PF 4 MG/2 ML VIAL. IV (18:15)
[2018-02-24] MEDS: SODIUM POLYSTYRENE SULFONATE 15 GM/60 ML ORAL.SUSP. PO (18:38)
[2018-02-24] MEDS: DEXTROSE 50% 25 GM / 50ML DISP.SYRIN. IV (18:38)
[2018-02-24] MEDS: INSULIN REGULAR 100 UNIT/ML 10ML VIAL. IV (18:39)
[2018-02-24] MEDS ORDERED: ONDANSETRON ODT 4 MG TAB.RAPDIS. PO (20:30)
[2018-02-24] MEDS: TAMSULOSIN 0.4 MG CAP.ER.24H. PO (22:05)
[2018-02-24] MEDS: ALPRAZolam 1 MG TABLET PO (22:05)
[2018-02-24] MEDS: METOPROLOL TART IMMED RELEASE 50 MG TABLET. PO (22:07)
[2018-02-24] MEDS: MORPHINE SULFATE 4 MG/ML DISP.SYRIN. IV (22:15)
[2018-02-25 06:15] LABS: ADD MAN DIFF? NO
[2018-02-25 06:22] LABS: BASO # 0.1 x10^3/uL (0.0-0.2); BASO % 1 % (0-3); EOS # 0.3 x10^3/uL (0.0-0.7); EOS % 3 % (0-3); HEMATOCRIT 43.3 % (39.0-53.0); HEMOGLOBIN 14.5 g/dL (13.0-17.5); LYMPH # 1.1 x10^3/uL (1.0-4.8); LYMPH % 11 % (24-48); MEAN CORPUSCULAR HEMOGLOBIN 31 pg (25-35); MEAN CORPUSCULAR HGB CONC 33 g/dL (31-37); MEAN CORPUSCULAR VOLUME 94 fL (79-100); MONO % 10 % (0-9); NEUT # 7.4 x10^3uL (1.8-7.7); NEUT % 74 % (31-73); PLATELET COUNT 220 x10^3/uL (140-400); RED BLOOD COUNT 4.62 x10^6/uL (4.30-5.70); RED CELL DISTRIBUTION WIDTH 15.1 % (11.5-14.5)
[2018-02-25 06:36] LABS: ANION GAP 16 (6-14); BLOOD UREA NITROGEN 73 mg/dL (8-26); CALCIUM 7.8 mg/dL (8.5-10.1); CARBON DIOXIDE 26 mmol/L (21-32); CHLORIDE 99 mmol/L (98-107); CREATININE 12.6 mg/dL (0.7-1.3); GFR 4.1; GLUCOSE 142 mg/dL (70-99); SODIUM 141 mmol/L (136-145)
[2018-02-25 06:39] LABS: POTASSIUM 6.1 mmol/L (3.5-5.1)
[2018-02-25] MEDS: CALCIUM CARBONATE 500 MG TAB.CHEW PO ×3 (07:57→18:32)
[2018-02-25] MEDS: ALPRAZolam 1 MG TABLET PO ×2 (07:57→15:26)
[2018-02-25] MEDS: PANTOPRAZOLE 40 MG TABLET.DR. PO (07:57)
[2018-02-25] MEDS ORDERED: DIALYSIS PATIENT. MC ×2 (08:00)
[2018-02-25] MEDS ORDERED: IV NORMAL SALINE 1000ML BAG 1,000 ML IV ×2 (08:00)
[2018-02-25] MEDS: diphenhydrAMINE 50 MG/ML VIAL IVP (08:55)
[2018-02-25] MEDS: PARoxetine 20 MG TABLET PO (13:06)
[2018-02-25] MEDS: METOPROLOL TART IMMED RELEASE 50 MG TABLET. PO (13:07)
[2018-02-25] MEDS: FOLIC/VIT B COMP W-C (RENAL) TABLET. PO (13:07)
[2018-02-25] MEDS: LOSARTAN POTASSIUM 50 MG TABLET. PO (13:08)
[2018-02-25] MEDS: ASPIRIN CHEWABLE 81 MG TABLET. PO (13:09)
[2018-02-25] MEDS: CLOPIDOGREL BISULFATE 75 MG TABLET PO (15:26)
[2018-02-25] MEDS: HEPARIN PF 500 UNIT/5 ML DISP.SYRIN. IV (18:35)
== END 2018-02-25 19:50 | disposition home or self-care (01) | DRG 391 ==
LOC: ER 15:53 → 5 SOUTH 18:00
DX: K52.9 Noninfective gastroenteritis and colitis, unspecified (principal); N18.6 End stage renal disease; I13.2 Hypertensive heart and chronic kidney disease with heart failure and with stage 5 chronic kidney disease, or end stage renal disease; E11.22 Type 2 diabetes mellitus with diabetic chronic kidney disease; E87.5 Hyperkalemia; I48.91 Unspecified atrial fibrillation; D64.9 Anemia, unspecified; E78.00 Pure hypercholesterolemia, unspecified; E78.5 Hyperlipidemia, unspecified; F41.9 Anxiety disorder, unspecified; I25.10 Atherosclerotic heart disease of native coronary artery without angina pectoris; I50.9 Heart failure, unspecified; K21.9 Gastro-esophageal reflux disease without esophagitis; Z82.3 Family history of stroke; Z83.3 Family history of diabetes mellitus; Z85.118 Personal history of other malignant neoplasm of bronchus and lung; Z85.51 Personal history of malignant neoplasm of bladder; Z90.49 Acquired absence of other specified parts of digestive tract; Z95.5 Presence of coronary angioplasty implant and graft; Z99.2 Dependence on renal dialysis; E21.3 Hyperparathyroidism, unspecified; K59.00 Constipation, unspecified; I25.2 Old myocardial infarction; Z88.6 Allergy status to analgesic agent; E87.70 Fluid overload, unspecified; Z84.1 Family history of disorders of kidney and ureter
CPT/HCPCS: 36415; 80048; 80053; 83690; 83735; 84132; 85025; 93005; 96374; 96375; 99285-25; J1200; J1815; J2270; J7042

== ENCOUNTER 2018-06-26 08:26 | Emergency (ER) | payer MEDICARE ==
[~2018-06-26] VITALS: Ht 170.2 cm; Wt 70.3 kg
[~2018-06-26 08:26] MED LIST changes: +ALPR1TAB2 PO; +AMOX1TAB58 PO; +ASPI-630 PO; +HYDR-2869 PO; +ONDA4TAB12 PO; +PRED-220 PO
--- NOTE | 2018-06-26 08:40 | EKG ---
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
[2018-06-26] MEDS ORDERED: ALPRAZolam 0.5 MG TABLET PO ONE (08:45)
[2018-06-26] MEDS ORDERED: ONDANSETRON PF 4 MG/2 ML VIAL. IV ONE (08:45)
--- NOTE | 2018-06-26 08:47 | PHYS DOC ---
Past Medical History Past Medical History: Cancer, Hypertension, Pancreatitis, Renal Disease, Other Additional Past Medical Histor: BLADDER CANCER, LUNG CANCER Past Surgical History: Appendectomy Additional Past Surgical Histo: Dialysis shunt L) arm. cardiac stent, lens implants Alcohol Use: Occasionally Drug Use: None Adult General Chief Complaint Chief Complaint: ABDOMINAL PAIN HPI HPI Patient is a 62 year old male who presents with abdominal pain that started today while the patient was at dialysis. The patient states that he got about half way through dialysis when it began. He was brought to this facility via EMS. The patient does state that he has nausea but denies vomiting or diarrhea. The patient has extreme anxiety and states that he is out of his Xanax at home. Review of Systems Review of Systems Constitutional: Denies fever or chills [] Eyes: Denies change in visual acuity, redness, or eye pain [] HENT: Denies nasal congestion or sore throat [] Respiratory: Denies cough or shortness of breath [] Cardiovascular: No additional information not addressed in HPI [] GI: See history of present illness : Denies dysuria or hematuria [] Musculoskeletal: Denies back pain or joint pain [] Integument: Denies rash or skin lesions [] Neurologic: Denies headache, focal weakness or sensory changes [] Endocrine: Denies polyuria or polydipsia [] All other systems were reviewed and found to be within normal limits, except as documented in this note. Current Medications Current Medications Current Medications Medications (Trade) Dose Ordered Sig/Cirilo Start Time Stop Time Status Last Admin Dose Admin Alprazolam (Xanax) 0.5 mg 1X ONCE 06/26/18 08:45 06/26/18 08:57 DC Lorazepam (Ativan) 2 mg STK-MED ONCE 06/26/18 08:56 06/26/18 08:57 DC Metoprolol Tartrate (Lopressor Vial) 5 mg 1X ONCE 06/26/18 09:15 06/26/18 09:16 DC 06/26/18 09:16 5 MG Ondansetron HCl (Zofran) 4 mg 1X ONCE 06/26/18 08:45 06/26/18 08:46 DC 06/26/18 08:58 4 MG Allergies Allergies Allergies Coded Allergies Type Severity Reaction Last Updated Verified aspirin Allergy Intermediate 06/10/18 Yes Physical Exam Physical Exam Constitutional: Well developed, well nourished, no acute distress, non-toxic appearance. [] HENT: Normocephalic, atraumatic, bilateral external ears normal, oropharynx moist, no oral exudates, nose normal. [] Eyes: PERRLA, EOMI, conjunctiva normal, no discharge. [] Neck: Normal range of motion, no tenderness, supple, no stridor. [] Cardiovascular:Heart rate regular rhythm, no murmur [] Lungs & Thorax: Bilateral breath sounds clear to auscultation [] Abdomen: Bowel sounds normal, soft, mild epigastric tenderness, no masses, no pulsatile masses. [] Skin: Warm, dry, no erythema, no rash. [] Back: No tenderness, no CVA tenderness. [] Extremities: No tenderness, no cyanosis, no clubbing, ROM intact, no edema. [] Neurologic: Alert and oriented X 3, normal motor function, normal sensory function, no focal deficits noted. [] Psychologic: Affect normal, judgement normal, mood anxious. [] Current Patient Data Vital Signs Vital Signs Date Time Temp Pulse Resp B/P (MAP) Pulse Ox O2 Delivery O2 Flow Rate FiO2 06/26/18 10:25 76 14 189/86 (120) 98 Room Air 06/26/18 08:26 98.0 98.0 Lab Values Laboratory Tests Test 06/26/18 08:50 White Blood Count 9.3 x10^3/uL (4.0-11.0) Red Blood Count 3.33 x10^6/uL (4.30-5.70) L Hemoglobin 10.6 g/dL (13.0-17.5) L Hematocrit 29.7 % (39.0-53.0) L Mean Corpuscular Volume 89 fL (79-100) Mean Corpuscular Hemoglobin 32 pg (25-35) Mean Corpuscular Hemoglobin Concent 36 g/dL (31-37) Red Cell Distribution Width 14.9 % (11.5-14.5) H Platelet Count 204 x10^3/uL (140-400) Neutrophils (%) (Auto) 76 % (31-73) H Lymphocytes (%) (Auto) 10 % (24-48) L Monocytes (%) (Auto) 11 % (0-9) H Eosinophils (%) (Auto) 2 % (0-3) Basophils (%) (Auto) 2 % (0-3) Neutrophils # (Auto) 7.0 x10^3uL (1.8-7.7) Lymphocytes # (Auto) 0.9 x10^3/uL (1.0-4.8) L Monocytes # (Auto) 1.1 x10^3/uL (0.0-1.1) Eosinophils # (Auto) 0.2 x10^3/uL (0.0-0.7) Basophils # (Auto) 0.1 x10^3/uL (0.0-0.2) Sodium Level 140 mmol/L (136-145) Potassium Level 3.6 mmol/L (3.5-5.1) Chloride Level 98 mmol/L (98-107) Carbon Dioxide Level 33 mmol/L (21-32) H Anion Gap 9 (6-14) Blood Urea Nitrogen 32 mg/dL (8-26) H Creatinine 6.0 mg/dL (0.7-1.3) H Estimated GFR (Cockcroft-Gault) 9.6 BUN/Creatinine Ratio 5 (6-20) L Glucose Level 89 mg/dL (70-99) Calcium Level 8.8 mg/dL (8.5-10.1) Total Bilirubin 1.0 mg/dL (0.2-1.0) Aspartate Amino Transferase (AST) 19 U/L (15-37) Alanine Aminotransferase (ALT) 14 U/L (16-63) L Alkaline Phosphatase 77 U/L (46-116) Creatine Kinase 88 U/L (39-308) Creatine Kinase MB (Mass) 0.7 ng/mL (0.0-3.6) Creatine Kinase MB Relative Index 0.8 % (0-4) Troponin I Quantitative 0.165 ng/mL (0.000-0.055) Total Protein 7.8 g/dL (6.4-8.2) Albumin 3.3 g/dL (3.4-5.0) L Albumin/Globulin Ratio 0.7 (1.0-1.7) L Laboratory Tests 06/26/18 08:50 Laboratory Tests 06/26/18 08:50 EKG EKG [] Radiology/Procedures Radiology/Procedures []PATIENT: ROSEY OCONNORCHAVOOUNT: [id number]#: [id number] : 1955 LOCATION: ER AGE: 62 SEX: M EXAM STATUS: REG ER ORD. PHYSICIAN: HARPAL CASTANO APRN REASON: abdominal pain, recent pneumonia PROCEDURE: CHEST AP ONLY Portable chest, 06/26/2018: HISTORY: Abdominal pain, ascites, recent pneumonia Comparison is made to a study from 06/11/2018. There has been a previous median sternotomy. A left Port-A-Cath extends into the superior vena cava. The heart size and pulmonary vascularity are within normal limits. There is a persistent right lower lobe parenchymal opacity which appears to have improved slightly. The left chest remains clear. The previously seen small right pleural effusion is no longer evident. No new abnormality is detected. IMPRESSION: Persistent right lower lobe infiltrate, only slightly improved since 06/11/2018. Electronically signed by: Wade Smith MD (06/26/2018 9:04 AM) [facility] DICTATED and SIGNED BY: WADE SMITH MD DATE: 06/26/18 0900 Course & Med Decision Making Course & Med Decision Making Pertinent Labs and Imaging studies reviewed. (See chart for details) []The patient was given IV Lopressor and Ativan in the emergency department with resolution of symptoms. Dr. Kiran was consulted in the care of this patient. The patient does have a mildly elevated troponin, but Dr. Kiran assured me that this is where the patient lives on a normal basis. Dragon Disclaimer Dragon Disclaimer This electronic medical record was generated, in whole or in part, using a voice recognition dictation system. Departure Departure Impression: Primary Impression: Anxiety Additional Impression: Abdominal pain Disposition: 01 HOME, SELF-CARE Condition: STABLE Referrals: RED DOMINGO (PCP) Patient Instructions: Abdominal Pain, Anxiety and Panic Attacks Additional Instructions: Take the Xanax as needed for your anxiety. Follow-up with your primary care provider at your currently scheduled appointment. If worsening feel free to return to the emergency department. Scripts Alprazolam (XANAX) 1 Mg Tablet 1 MG PO PRN Q6HRS PRN for ANXIETY / AGITATION, #10 TAB 0 Refills Prov: HARPAL CASTANO APRN 06/26/18 Problem Qualifiers HARPAL CASTANO APRN Jun 26, 2018 08:47
[2018-06-26 08:59] LABS: BASO # 0.1 x10^3/uL (0.0-0.2); BASO % 2 % (0-3); EOS # 0.2 x10^3/uL (0.0-0.7); EOS % 2 % (0-3); HEMATOCRIT 29.7 % (39.0-53.0); HEMOGLOBIN 10.6 g/dL (13.0-17.5); LYMPH # 0.9 x10^3/uL (1.0-4.8); LYMPH % 10 % (24-48); MEAN CORPUSCULAR HEMOGLOBIN 32 pg (25-35); MEAN CORPUSCULAR HGB CONC 36 g/dL (31-37); MEAN CORPUSCULAR VOLUME 89 fL (79-100); MONO # 1.1 x10^3/uL (0.0-1.1); MONO % 11 % (0-9); NEUT % 76 % (31-73); PLATELET COUNT 204 x10^3/uL (140-400); RED BLOOD COUNT 3.33 x10^6/uL (4.30-5.70); RED CELL DISTRIBUTION WIDTH 14.9 % (11.5-14.5); WHITE BLOOD COUNT 9.3 x10^3/uL (4.0-11.0)
--- NOTE | 2018-06-26 09:08 | RAD ---
Portable chest, 06/26/2018: HISTORY: Abdominal pain, ascites, recent pneumonia Comparison is made to a study from 06/11/2018. There has been a previous median sternotomy. A left Port-A-Cath extends into the superior vena cava. The heart size and pulmonary vascularity are within normal limits. There is a persistent right lower lobe parenchymal opacity which appears to have improved slightly. The left chest remains clear. The previously seen small right pleural effusion is no longer evident. No new abnormality is detected. IMPRESSION: Persistent right lower lobe infiltrate, only slightly improved since 06/11/2018. Electronically signed by: Wade Smith MD (06/26/2018 9:04 AM) [facility]
[2018-06-26 09:12] LABS: CALCIUM 8.8 mg/dL (8.5-10.1); GFR 9.6; POTASSIUM 3.6 mmol/L (3.5-5.1)
[2018-06-26] MEDS ORDERED: METOPROLOL TARTRATE 5 MG/5 ML VIAL. IVP ONE (09:15)
[2018-06-26 09:18] LABS: ALBUMIN 3.3 g/dL (3.4-5.0); ALBUMIN/GLOBULIN RATIO 0.7 (1.0-1.7); TOTAL PROTEIN 7.8 g/dL (6.4-8.2)
[2018-06-26 10:25] VITALS: BP 189/86
[2018-06-26] MEDS ORDERED: ALPR1TAB2 PO (10:49)
== END 2018-06-26 10:59 | disposition home or self-care (01) ==
LOC: ER 08:26
DX: R10.13 Epigastric pain (principal); F41.9 Anxiety disorder, unspecified; R11.0 Nausea; I12.0 Hypertensive chronic kidney disease with stage 5 chronic kidney disease or end stage renal disease; N18.6 End stage renal disease; Z99.2 Dependence on renal dialysis; Z95.5 Presence of coronary angioplasty implant and graft; Z90.49 Acquired absence of other specified parts of digestive tract; Z85.51 Personal history of malignant neoplasm of bladder; Z88.6 Allergy status to analgesic agent
CPT/HCPCS: 36415; 71045; 80053; 82553; 84484; 85025; 93005; 96374; 96375; 99285; J2060; J2405; J3490

== ENCOUNTER 2018-09-22 12:38 | Inpatient (IN) | payer MEDICARE ==
[~2018-09-22] VITALS: Ht 170.2 cm; Wt 69.6 kg
[~2018-09-22 12:38] MED LIST changes: -AMLO10TA2 PO; +AMLO10TA6 PO; -CLOP75TA57; +CLOP75TA57 PO; +DOXY100C14 PO; -LOSA100T6; -LOSA100T6 PO; +LOSA100T7; +LOSA100T7 PO
[2018-09-22 15:53] VITALS: BP 179/94
[2018-09-22] MEDS ORDERED: LOPERAMIDE 2 MG CAPSULE PO PRN (16:00)
[2018-09-22] MEDS ORDERED: diphenhydrAMINE HCL 25 MG CAPSULE PO PRN (16:00)
[2018-09-22] MEDS ORDERED: PROCHLORPERAZINE 10 MG/2 ML VIAL. IV PRN (16:00)
[2018-09-22] MEDS ORDERED: CALCIUM CARBONATE 500 MG TAB.CHEW PO PRN (16:00)
[2018-09-22] MEDS ORDERED: oxyCODONE IR 5 MG TABLET PO PRN (16:00)
[2018-09-22] MEDS ORDERED: ACETAMINOPHEN 325 MG TABLET. PO PRN (16:00)
[2018-09-22] MEDS ORDERED: LABETALOL 20 MG/4 ML DISP.SYRIN. IVP PRN (16:00)
[2018-09-22] MEDS ORDERED: ONDANSETRON PF 4 MG/2 ML VIAL. IV PRN (16:00)
[2018-09-22] MEDS ORDERED: IBUPROFEN 400 MG TABLET. PO PRN (16:00)
--- NOTE | 2018-09-22 16:24 | PDOC1 ---
History and Physical Date of Admission Date of Admission DATE: 09/22/18 TIME: 16:17 Identification/Chief Complaint Chief Complaint abd pain, chest pain, diarrhea Source Source: Caregiver, Chart review, Patient History of Present Illness History of Present Illness 63-year-old male, known to us, was a transfer from [place] for further management here at [facility]. He drove himself to [place] for the complaints of abdominal pain, recurrent diarrhea, chest pain, and some anxiety what sounds like. I'm unsure if he took his medications today. He did not miss any dialysis sessions. He blames his symptoms from a big bowl of soup that he took today. His last dialysis was Saturday for polycystic kidney disease. His creatinine is 10 with normal potassium. HIs bP tends to run high.. He looks okay but looks uncomfortable and is watching TV. Leukocytosis mild 11, the rest of the labs okay. BNP chronically elevated 35,000, troponin chronic elevation in a dialysis patient TRop 0.[address] Kiran. He complains of nonspecific abdominal pain, chest pain. He is known to have chronic diarrhea known to our GI service. I forget the name of the medication he was on but he is not taking that anymore. He claims he just takes over-the- counter Imodium. He requests certain medications like some Xanax, Pepcid, Bentyl - the latter was started by his PCP - that he thought was helping somewhat. Admitted for dialysis, renal consult, GI follow-up/known to the service. And other supportive treatment. There was some reports of cellulitis-? But I do not see that Past Medical History Cardiovascular: CAD, CHF, HTN, ND Pulmonary: No pertinent hx, Other GI: Constipation, GERD, Other Heme/Onc: Anemia NOS, Cancer Hepatobiliary: No pertinent hx Psych: No pertinent hx, Anxiety, Depression Rheumatologic: No pertinent hx Infectious disease: No pertinent hx Renal/: Chronic renal failure, Other Endocrine: Diabetes, Hyperparathyroidism Past Surgical History Past Surgical History: Appendectomy, Cholecystectomy, CABG, Other Family History Family History: Cancer, Diabetes, Kidney Disease, Stroke Social History Smoke: No ALCOHOL: none Drugs: None Current Medications Current Medications Current Medications Ondansetron HCl (Zofran) 4 mg PRN Q6HRS PRN IV NAUSEA/VOMITING; Start 09/22/18 at 16:00 Prochlorperazine Edisylate (Compazine) 10 mg PRN Q6HRS PRN IV NAUSEA/VOMITING; Start 09/22/18 at 16:00 Calcium Carbonate/ Glycine (Tums) 500 mg PRN Q3HRS PRN PO UPSET STOMACH; Start 09/22/18 at 16:00 Oxycodone HCl (Roxicodone) 5 mg PRN Q3HRS PRN PO BREAKTHROUGH PAIN; Start 09/22 at 16:00 Morphine Sulfate (Morphine Sulfate) 2 mg PRN Q2HR PRN IV PAIN; Start 09/22/18 at 16:00 Acetaminophen (Tylenol) 650 mg PRN Q6HRS PRN PO Headaches, Temp > 101.5F; Start 09/22/18 at 16:00 Ibuprofen (Motrin) 400 mg PRN Q6HRS PRN PO MILD PAIN; Start 09/22/18 at 16:00; Stop 09/22/18 at 16:15; Status DC Labetalol HCl (Normodyne Iv Push) 20 mg PRN Q2HR PRN IVP HYPERTENSION, SEE COMMENTS; Start 09/22/18 at 16:00 Alprazolam (Xanax) 1 mg PRN Q6HRS PRN PO ANXIETY / AGITATION; Start 09/22/18 at 16:00 Alprazolam (Xanax) 1 mg TID PO ; Start 09/22/18 at 16:30 Aspirin (Children'S Aspirin) 81 mg DAILYWBKFT PO ; Start 09/23/18 at 08:00 Calcium Carbonate/ Glycine (Tums) 1,000 mg TIDAC PO ; Start 09/22/18 at 16:30 Clopidogrel Bisulfate (Plavix) 75 mg DAILY PO ; Start 09/23/18 at 09:00 Vitamin B Complex/ Vitamin C (Frances-Chilo) 1 tab DAILY PO ; Start 09/23/18 at 09: 00 Losartan Potassium (Cozaar) 50 mg DAILY PO ; Start 09/23/18 at 09:00 Tamsulosin HCl (Flomax) 0.4 mg QHS PO ; Start 09/22/18 at 21:00 Hydralazine HCl (Apresoline) 50 mg TID PO ; Start 09/22/18 at 16:30 Metoprolol Tartrate (Lopressor) 100 mg BID PO ; Start 09/22/18 at 21:00 Pantoprazole Sodium (Protonix) 40 mg DAILYAC PO ; Start 09/23/18 at 07:30 Paroxetine HCl (Paxil) 40 mg DAILY PO ; Start 09/23/18 at 09:00 Diphenhydramine HCl (Benadryl) 25 mg PRN QHS PRN PO INSOMNIA; Start 09/22/18 at 16:00 Loperamide HCl (Imodium) 2 mg PRN Q15MIN PRN PO DIARRHEA; Start 09/22/18 at 16: 00 Active Scripts Active Xanax (Alprazolam) 1 Mg Tablet 1 Mg PO PRN Q6HRS PRN Cozaar (Losartan Potassium) 50 Mg Tablet 50 Mg PO DAILY Flomax (Tamsulosin Hcl) 0.4 Mg Cap.er.24h 0.4 Mg PO QHS Reported Xanax (Alprazolam) 1 Mg Tablet 1 Tab PO TID Aspirin 81 Mg Tab.chew 81 Tab PO DAILY Metoprolol Tartrate 100 Mg Tablet 1 Tab PO BID Plavix (Clopidogrel Bisulfate) 75 Mg Tablet 75 PO DAILY Hydralazine Hcl 50 Mg Tablet 50 TID Nephro-Chilo Tablet (Folic Acid/Vitamin B Comp W-C) 0.8 Mg Tablet 1 Tab PO DAILY Paroxetine Hcl 20 Mg Tablet 40 Mg PO DAILY Tums (Calcium Carbonate) 200 Mg Tab.chew 800 Mg PO TIDAC Omeprazole Magnesium 20 Mg Capsule.dr 20 Mg PO DAILY Allergies Allergies: Coded Allergies: aspirin (Verified Allergy, Intermediate, 06/10/18) takes 81mg daily at home ROS Review of System As per history of present illness, the rest of ROS 14 point negative Physical Exam General: Alert, Oriented X3, Cooperative, No acute distress HEENT: Atraumatic, PERRLA, EOMI Lungs: Clear to auscultation, Normal air movement Heart: S1S2, RRR, no thrills, no rubs, no gallops, no murmurs Cardiovascular: S1 Abdomen: Soft, Other (hyperactive bowel sounds, no guarding, some tenderness epigastric area) Rectal Exam: not examined PELVIC: Nml ext genitalia Extremities: No clubbing, No cyanosis, No edema, Normal pulses, No tenderness/ swelling Skin: No rashes, No breakdown, No significant lesion Neuro: Normal gait, Normal speech, Strength at 5/5 X4 ext, Normal tone, Sensation intact, Cranial nerves 3-12 NL, Reflexes 2+ Psych/Mental Status: Mental status NL, Mood NL Vitals Vitals Vital Signs Date Time Temp Pulse Resp B/P (MAP) Pulse Ox O2 Delivery O2 Flow Rate FiO2 09/22/18 16:11 Nasal Cannula 2.0 09/22/18 15:53 95.7 79 20 179/94 (122) 91 95.7 VTE Prophylaxis Ordered VTE Prophylaxis Devices: Yes VTE Pharmacological Prophylaxi: Yes Assessment/Plan Assessment/Plan Chest pain/abdominal pain/acute on chronic diarrhea-off GI medications Anxiety NOS ESRD secondary to polycystic kidney disease on dialysis Anemia of chronic dialysis Leukocytosis Troponin elevation, demand ischemia, in the background of CK D Elevated BNP-chronic Chronic lumbago Insomnia PLAN: Admit 2 midnights Consult cardiology-known patient Consult GI-regarding this diarrhea, I forget the name of medication prescribed for him that help with the diarrhea before - I held off stool studies for now COnsult renal re HD I have resumed home meds including Bentyl, Pepcid, some pain medicines, Imodium , Xanax No PT OT needs-he still drives Labs tomorrow Discussed with patient and RN ARSALAN ESCAMILLA MD Sep 22, 2018 16:24
[2018-09-22] MEDS: CALCIUM CARBONATE 500 MG TAB.CHEW PO SCH (16:25)
[2018-09-22] MEDS: ALPRAZolam 1 MG TABLET PO SCH ×2 (16:26→20:15)
[2018-09-22] MEDS: MORPHINE SULFATE 2 MG/ML VIAL. IV PRN ×3 (16:29→23:03)
[2018-09-22 19:20] VITALS: BP 175/87
[2018-09-22] MEDS: METOPROLOL TART IMMED RELEASE 50 MG TABLET. PO SCH (20:16)
[2018-09-22] MEDS: TAMSULOSIN 0.4 MG CAP.ER.24H. PO SCH (20:17)
[2018-09-22] MEDS: DICYCLOMINE HCL 10 MG CAPSULE PO SCH (20:17)
[2018-09-22] MEDS ORDERED: FAMOTIDINE 20 MG TABLET. PO SCH (21:00)
[2018-09-22] MEDS: ALPRAZolam 1 MG TABLET PO PRN (23:02)
[2018-09-22 23:20] VITALS: BP 167/80
[2018-09-23 03:20] VITALS: BP 162/75
[2018-09-23 05:18] LABS: BASO # 0.1 x10^3/uL (0.0-0.2); BASO % 1 % (0-3); EOS # 0.2 x10^3/uL (0.0-0.7); EOS % 2 % (0-3); HEMATOCRIT 37.8 % (39.0-53.0); HEMOGLOBIN 12.8 g/dL (13.0-17.5); LYMPH # 0.5 x10^3/uL (1.0-4.8); LYMPH % 5 % (24-48); MEAN CORPUSCULAR HEMOGLOBIN 32 pg (25-35); MEAN CORPUSCULAR HGB CONC 34 g/dL (31-37); MEAN CORPUSCULAR VOLUME 95 fL (79-100); MONO % 9 % (0-9); NEUT # 9.2 x10^3uL (1.8-7.7); NEUT % 84 % (31-73); PLATELET COUNT 185 x10^3/uL (140-400); RED BLOOD COUNT 3.99 x10^6/uL (4.30-5.70); RED CELL DISTRIBUTION WIDTH 13.8 % (11.5-14.5); WHITE BLOOD COUNT 10.9 x10^3/uL (4.0-11.0)
[2018-09-23 05:44] LABS: CALCIUM 8.9 mg/dL (8.5-10.1); GFR 4.3
[2018-09-23 06:01] LABS: POTASSIUM 6.1 mmol/L (3.5-5.1)
[2018-09-23 07:00] VITALS: BP 167/80
[2018-09-23] MEDS: CALCIUM CARBONATE 500 MG TAB.CHEW PO SCH ×3 (07:30→15:18)
[2018-09-23] MEDS: PANTOPRAZOLE 40 MG TABLET.DR. PO SCH (07:30)
--- NOTE | 2018-09-23 07:36 | EKG ---
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
[2018-09-23] MEDS: ASPIRIN CHEWABLE 81 MG TABLET. PO SCH (08:00)
[2018-09-23] MEDS: LOSARTAN POTASSIUM 50 MG TABLET. PO SCH (08:08)
[2018-09-23] MEDS: DICYCLOMINE HCL 10 MG CAPSULE PO SCH ×3 (08:08→20:00)
[2018-09-23] MEDS: PARoxetine 20 MG TABLET PO SCH (08:08)
[2018-09-23] MEDS: METOPROLOL TART IMMED RELEASE 50 MG TABLET. PO SCH ×2 (08:08→20:00)
[2018-09-23] MEDS: FOLIC/VIT B COMP W-C (RENAL) TABLET. PO SCH (08:08)
[2018-09-23] MEDS: CLOPIDOGREL BISULFATE 75 MG TABLET PO SCH (08:08)
[2018-09-23] MEDS: ALPRAZolam 1 MG TABLET PO SCH ×3 (08:30→23:08)
--- NOTE | 2018-09-23 08:35 | PDOC2 ---
CONSULT Date of Consult Date of Consult DATE: 09/23/18 TIME: 08:24 Reason for Consult Reason for Consult: ESRD Referring Physician Referring Physician: Catie Chowdary Identification/Chief Complaint Chief Complaint Shortness of breath, anxiety Source Source: Chart review, Patient History of Present Illness Reason for Visit: Patient is a 63-year-old gentleman with known noncompliance with dietary and fluid intake in the setting of ESRD secondary to polycystic kidney disease. He is currently under the care of Dr. Koroma and dialyzes at [facility] on a Saturday schedule. His last dialysis was on Saturday. He claims he completed his full treatment. He thinks he was brought down to his estimated dry weight. He did consume a big bowl of seafood soup over the weekend. Limbs he got pretty thirsty and may have drank extra fluid. He drove himself to [facility] with complaints of abdominal pain nausea vomiting diarrhea and anxiety. I was called by the [facility] ER provider regarding his hypoxemia. Patient was initially noted to have room air hypoxemia and remained oxygen dependent while in the ER and was unable to be weaned off of the same. Arrangements were made for patient to have outpatient dialysis later in the day yesterday, however given his hypoxemia it was felt that he may not be able to make it to outpatient dialysis and was transferred here for further management and dialysis which was arranged for the patient this morning. He is feeling much better already just with supplemental oxygen and his walking in the hallways without oxygen.. Past Medical History Cardiovascular: CAD, CHF, HTN, [place] Pulmonary: No pertinent hx, Other GI: Constipation, GERD, Other Heme/Onc: Anemia NOS, Cancer Psych: Anxiety, Depression Renal/: Chronic renal failure, Bladder Ca., Other Endocrine: Diabetes, Hyperparathyroidism Past Surgical History Past Surgical History: Appendectomy, Cholecystectomy, CABG, Other Family History Family History: Cancer, Diabetes, Kidney Disease, Stroke Social History No ALCOHOL: none Drugs: None Lives: with Family Domestic Violence: Neg Current Medications Current Medications Current Medications Ondansetron HCl (Zofran) 4 mg PRN Q6HRS PRN IV NAUSEA/VOMITING; Start 09/22/18 at 16:00 Prochlorperazine Edisylate (Compazine) 10 mg PRN Q6HRS PRN IV NAUSEA/VOMITING; Start 09/22/18 at 16:00 Calcium Carbonate/ Glycine (Tums) 500 mg PRN Q3HRS PRN PO UPSET STOMACH; Start 09/22/18 at 16:00 Oxycodone HCl (Roxicodone) 5 mg PRN Q3HRS PRN PO BREAKTHROUGH PAIN; Start 09/22 at 16:00 Morphine Sulfate (Morphine Sulfate) 2 mg PRN Q2HR PRN IV PAIN Last administered on 09/22/18at 23:03; Start 09/22/18 at 16:00 Acetaminophen (Tylenol) 650 mg PRN Q6HRS PRN PO Headaches, Temp > 101.5F; Start 09/22/18 at 16:00 Ibuprofen (Motrin) 400 mg PRN Q6HRS PRN PO MILD PAIN; Start 09/22/18 at 16:00; Stop 09/22/18 at 16:15; Status DC Labetalol HCl (Normodyne Iv Push) 20 mg PRN Q2HR PRN IVP HYPERTENSION, SEE COMMENTS; Start 09/22/18 at 16:00 Alprazolam (Xanax) 1 mg PRN Q6HRS PRN PO ANXIETY / AGITATION Last administered on 09/22/18at 23:02; Start 09/22/18 at 16:00 Alprazolam (Xanax) 1 mg TID PO Last administered on 09/22/18at 20:15; Start 09/22/18 at 16:30 Aspirin (Children'S Aspirin) 81 mg DAILYWBKFT PO ; Start 09/23/18 at 08:00 Calcium Carbonate/ Glycine (Tums) 1,000 mg TIDAC PO Last administered on at 16:25; Start 09/22/18 at 16:30 Clopidogrel Bisulfate (Plavix) 75 mg DAILY PO ; Start 09/23/18 at 09:00 Vitamin B Complex/ Vitamin C (Frances-Chilo) 1 tab DAILY PO ; Start 09/23/18 at 09: 00 Losartan Potassium (Cozaar) 50 mg DAILY PO ; Start 09/23/18 at 09:00 Tamsulosin HCl (Flomax) 0.4 mg QHS PO Last administered on 09/22/18at 20:17; Start 09/22/18 at 21:00 Hydralazine HCl (Apresoline) 50 mg TID PO Last administered on 09/22/18at 20:17 ; Start 09/22/18 at 16:30 Metoprolol Tartrate (Lopressor) 100 mg BID PO Last administered on 09/22/18at 20 :16; Start 09/22/18 at 21:00 Pantoprazole Sodium (Protonix) 40 mg DAILYAC PO ; Start 09/23/18 at 07:30 Paroxetine HCl (Paxil) 40 mg DAILY PO ; Start 09/23/18 at 09:00 Diphenhydramine HCl (Benadryl) 25 mg PRN QHS PRN PO INSOMNIA; Start 09/22/18 at 16:00 Loperamide HCl (Imodium) 2 mg PRN Q15MIN PRN PO DIARRHEA; Start 09/22/18 at 16: 00 Famotidine (Pepcid) 20 mg Q48H PO Last administered on 09/22/18at 20:17; Start 09/22/18 at 21:00 Dicyclomine HCl (Bentyl) 10 mg TID PO Last administered on 09/22/18at 20:17; Start 09/22/18 at 21:00 Active Scripts Active Xanax (Alprazolam) 1 Mg Tablet 1 Mg PO PRN Q6HRS PRN Cozaar (Losartan Potassium) 50 Mg Tablet 50 Mg PO DAILY Flomax (Tamsulosin Hcl) 0.4 Mg Cap.er.24h 0.4 Mg PO QHS Reported Xanax (Alprazolam) 1 Mg Tablet 1 Tab PO TID Aspirin 81 Mg Tab.chew 81 Tab PO DAILY Metoprolol Tartrate 100 Mg Tablet 1 Tab PO BID Plavix (Clopidogrel Bisulfate) 75 Mg Tablet 75 PO DAILY Hydralazine Hcl 50 Mg Tablet 50 TID Nephro-Chilo Tablet (Folic Acid/Vitamin B Comp W-C) 0.8 Mg Tablet 1 Tab PO DAILY Paroxetine Hcl 20 Mg Tablet 40 Mg PO DAILY Tums (Calcium Carbonate) 200 Mg Tab.chew 800 Mg PO TIDAC Omeprazole Magnesium 20 Mg Capsule.dr 20 Mg PO DAILY Allergies Allergies: Coded Allergies: aspirin (Verified Allergy, Intermediate, 06/10/18) takes 81mg daily at home ROS Review of System 14 point review of systems was undertaken with the patient. Most of the positives have been as outlined in history of present illness. Physical Exam Physical Exam General Appearance: Awake Alert Oriented x 3 In no Distress Eyes: VIsion Unchanged Conjunctiva Normal EN: No EN Drainage Mucous Memb. moist Neck: no JVD no JVP Supple no Thyromegaly, double chin thick neck CVS: S1 S2 + Murmur No Gallop No Rub no Edema Resp: Few bilateral basal Rales no Rhonchi no Acc. Muscle use GI: BAS +ve NO Bruit Non Tender Non Distended : no CVA tenderness; no Suprapubic Tenderness SKIN: no Rashes Breast Exam deferred Mu.Sk: Adequate ROM no Muscle Atrophy Heme: Unable to palpate Obvious LAD no Splenomegaly NEURO: Good Strength and Tone Cranial Nerves II - XII grossly intact Psych: not Depressed no Active hallucination Vital Signs Vital Signs Date Time Temp Pulse Resp B/P (MAP) Pulse Ox O2 Delivery O2 Flow Rate FiO2 09/23/18 07:25 Nasal Cannula 2.0 09/23/18 07:00 97.7 71 18 167/80 (109) 94 97.7 Assessment & Plan ESRD: Dialysis as below F 180 NR 3.5 Hrs 1K for 1 hr then 2 K 2.5 Ca 140 Na 35 HC03 Qb 350 + Qd 500+ Heparin 0 Units Uf to dry weight or 1-2 kg below if tolerated May give 25-50 gms of 25% Albumin if needed to maintain Hemodynamic stability Treatment plan reviewed and discussed with personal protection specialist Hyperkalemia : This is despite a renal diet. Stat recheck at beginning of dialysis will be ordered. If truly elevated then 1K bath will be ordered otherwise he may be able to run on a 2K bath Anemia: Current hemoglobin above 11 hence no erythropoietin was ordered HTN: Current BP meds reviewed. See orders for changes. Subjective shortness of breath: This appears to have improved without significant intervention. Unclear to me if this is anxiety related or to hypoxemia. Chest x-ray did show pulmonary edema as communicated to me by ER provider at [facility]. Pulmonary edema: Suspect this has improved by now. ? Contribution from history of coronary artery disease and diastolic dysfunction. No recent echocardiogram in our system except as reviewed below Fluid overload with room air hypoxemia: Recheck chest x-ray to resolution after dialysis today Room air hypoxemia: Now approved. Patient remains 92-94% on 2 L nasal cannula oxygen as documented Discussed Plan of Care and prognosis etc. at length with patient at bedside Labs Labs Laboratory Tests Test 09/22/18 20:30 11/6/18 05:00 09/23/18 07:41 Glucose (Fingerstick) 108 mg/dL (70-99) 88 mg/dL (70-99) White Blood Count 10.9 x10^3/uL (4.0-11.0) Red Blood Count 3.99 x10^6/uL (4.30-5.70) Hemoglobin 12.8 g/dL (13.0-17.5) Hematocrit 37.8 % (39.0-53.0) Mean Corpuscular Volume 95 fL (79-100) Mean Corpuscular Hemoglobin 32 pg (25-35) Mean Corpuscular Hemoglobin Concent 34 g/dL (31-37) Red Cell Distribution Width 13.8 % (11.5-14.5) Platelet Count 185 x10^3/uL (140-400) Neutrophils (%) (Auto) 84 % (31-73) Lymphocytes (%) (Auto) 5 % (24-48) Monocytes (%) (Auto) 9 % (0-9) Eosinophils (%) (Auto) 2 % (0-3) Basophils (%) (Auto) 1 % (0-3) Neutrophils # (Auto) 9.2 x10^3uL (1.8-7.7) Lymphocytes # (Auto) 0.5 x10^3/uL (1.0-4.8) Monocytes # (Auto) 1.0 x10^3/uL (0.0-1.1) Eosinophils # (Auto) 0.2 x10^3/uL (0.0-0.7) Basophils # (Auto) 0.1 x10^3/uL (0.0-0.2) Sodium Level 140 mmol/L (136-145) Potassium Level 6.1 mmol/L (3.5-5.1) Chloride Level 100 mmol/L (98-107) Carbon Dioxide Level 28 mmol/L (21-32) Anion Gap 12 (6-14) Blood Urea Nitrogen 67 mg/dL (8-26) Creatinine 12.0 mg/dL (0.7-1.3) Estimated GFR (Cockcroft-Gault) 4.3 Glucose Level 99 mg/dL (70-99) Calcium Level 8.9 mg/dL (8.5-10.1) Laboratory Tests Test 09/22/18 20:30 09/23/18 05:00 09/23/18 07:41 Glucose (Fingerstick) 108 mg/dL (70-99) 88 mg/dL (70-99) White Blood Count 10.9 x10^3/uL (4.0-11.0) Red Blood Count 3.99 x10^6/uL (4.30-5.70) Hemoglobin 12.8 g/dL (13.0-17.5) Hematocrit 37.8 % (39.0-53.0) Mean Corpuscular Volume 95 fL (79-100) Mean Corpuscular Hemoglobin 32 pg (25-35) Mean Corpuscular Hemoglobin Concent 34 g/dL (31-37) Red Cell Distribution Width 13.8 % (11.5-14.5) Platelet Count 185 x10^3/uL (140-400) Neutrophils (%) (Auto) 84 % (31-73) Lymphocytes (%) (Auto) 5 % (24-48) Monocytes (%) (Auto) 9 % (0-9) Eosinophils (%) (Auto) 2 % (0-3) Basophils (%) (Auto) 1 % (0-3) Neutrophils # (Auto) 9.2 x10^3uL (1.8-7.7) Lymphocytes # (Auto) 0.5 x10^3/uL (1.0-4.8) Monocytes # (Auto) 1.0 x10^3/uL (0.0-1.1) Eosinophils # (Auto) 0.2 x10^3/uL (0.0-0.7) Basophils # (Auto) 0.1 x10^3/uL (0.0-0.2) Sodium Level 140 mmol/L (136-145) Potassium Level 6.1 mmol/L (3.5-5.1) Chloride Level 100 mmol/L (98-107) Carbon Dioxide Level 28 mmol/L (21-32) Anion Gap 12 (6-14) Blood Urea Nitrogen 67 mg/dL (8-26) Creatinine 12.0 mg/dL (0.7-1.3) Estimated GFR (Cockcroft-Gault) 4.3 Glucose Level 99 mg/dL (70-99) Calcium Level 8.9 mg/dL (8.5-10.1) Review All relevant outside records, renal labs, imaging studies, telemetry/EKG's were reviewed. Images Images Echocardiogram DATE: 01/30/17 The left ventricular systolic function is normal and the ejection fraction is within normal range. The Ejection Fraction is 60%. There is concentric left ventricular hypertrophy. Transmitral Doppler flow pattern is Grade I-abnormal relaxation pattern. The left atrium size is normal. The right atrium size is normal. The aortic valve is mildly The aortic valve is trileaflet. Doppler and Color Flow revealed mild mitral regurgitation. Mitral annular calcification is mild. The mitral valve leaflets are thickened. The tricuspid valve is normal in structure and function. Doppler and Color Flow revealed trace pulmonic valvular regurgitation. There is no evidence of significant pericardial effusion. TING GARDUNO MD Sep 23, 2018 08:35
[2018-09-23 08:38] LABS: % EOS 1 % (0-5); % LYMPHS 4 % (24-48); % MONOS 7 % (0-10); % SEGS 88 % (35-66); PLT ESTIMATE ADEQUATE (ADEQUATE)
[2018-09-23] MEDS ORDERED: MAGNESIUM SULFATE 2GM 50 ML IV PRN (08:45)
[2018-09-23] MEDS ORDERED: IV NORMAL SALINE 1000ML BAG 1,000 ML IV PRN ×2 (08:50)
[2018-09-23] MEDS ORDERED: DIALYSIS PATIENT. MC PRN ×2 (09:00)
--- NOTE | 2018-09-23 09:09 | PDOC ---
PROGRESS NOTES History of Present Illness History of Present Illness Assessment/Plan Assessment/Plan Chest pain/abdominal pain/acute on chronic diarrhea-off GI medications Anxiety NOS ESRD secondary to polycystic kidney disease on dialysis Anemia of chronic dialysis Leukocytosis Troponin elevation, demand ischemia, in the background of CK D Elevated BNP-chronic Chronic lumbago Insomnia PLAN: Admit 2 midnights Consult cardiology-known patient Consult GI- COnsult renal re HD home meds including Bentyl, Pepcid, some pain medicines, Imodium, Xanax No PT OT needs-he still drives Labs tomorrow Discussed with patient and RN Vitals Vitals Vital Signs Date Time Temp Pulse Resp B/P (MAP) Pulse Ox O2 Delivery O2 Flow Rate FiO2 09/23/18 07:25 Nasal Cannula 2.0 09/23/18 07:00 97.7 71 18 167/80 (109) 94 97.7 Physical Exam General: Alert, Oriented X3, Cooperative, No acute distress Lungs: Crackles Abdomen: Soft, Other (hyperactive bowel sounds, no guarding, some tenderness epigastric area) Extremities: No clubbing, No cyanosis, No edema, Normal pulses, No tenderness/ swelling Skin: No rashes, No breakdown, No significant lesion Labs LABS Laboratory Tests Test 09/22/18 20:30 09/23/18 05:00 09/23/18 07:41 Glucose (Fingerstick) 108 mg/dL (70-99) 88 mg/dL (70-99) White Blood Count 10.9 x10^3/uL (4.0-11.0) Red Blood Count 3.99 x10^6/uL (4.30-5.70) Hemoglobin 12.8 g/dL (13.0-17.5) Hematocrit 37.8 % (39.0-53.0) Mean Corpuscular Volume 95 fL (79-100) Mean Corpuscular Hemoglobin 32 pg (25-35) Mean Corpuscular Hemoglobin Concent 34 g/dL (31-37) Red Cell Distribution Width 13.8 % (11.5-14.5) Platelet Count 185 x10^3/uL (140-400) Neutrophils (%) (Auto) 84 % (31-73) Lymphocytes (%) (Auto) 5 % (24-48) Monocytes (%) (Auto) 9 % (0-9) Eosinophils (%) (Auto) 2 % (0-3) Basophils (%) (Auto) 1 % (0-3) Neutrophils # (Auto) 9.2 x10^3uL (1.8-7.7) Lymphocytes # (Auto) 0.5 x10^3/uL (1.0-4.8) Monocytes # (Auto) 1.0 x10^3/uL (0.0-1.1) Eosinophils # (Auto) 0.2 x10^3/uL (0.0-0.7) Basophils # (Auto) 0.1 x10^3/uL (0.0-0.2) Segmented Neutrophils % 88 % (35-66) Lymphocytes % 4 % (24-48) Monocytes % 7 % (0-10) Eosinophils % 1 % (0-5) Platelet Estimate Adequate (ADEQUATE) Large Platelets Occ Sodium Level 140 mmol/L (136-145) Potassium Level 6.1 mmol/L (3.5-5.1) Chloride Level 100 mmol/L (98-107) Carbon Dioxide Level 28 mmol/L (21-32) Anion Gap 12 (6-14) Blood Urea Nitrogen 67 mg/dL (8-26) Creatinine 12.0 mg/dL (0.7-1.3) Estimated GFR (Cockcroft-Gault) 4.3 Glucose Level 99 mg/dL (70-99) Calcium Level 8.9 mg/dL (8.5-10.1) Comment Review of Relevant I have reviewed the following items dionte (where applicable) has been applied. Labs Laboratory Tests Test 09/22/18 20:30 09/23/18 05:00 09/23/18 07:41 Glucose (Fingerstick) 108 mg/dL (70-99) 88 mg/dL (70-99) White Blood Count 10.9 x10^3/uL (4.0-11.0) Red Blood Count 3.99 x10^6/uL (4.30-5.70) Hemoglobin 12.8 g/dL (13.0-17.5) Hematocrit 37.8 % (39.0-53.0) Mean Corpuscular Volume 95 fL (79-100) Mean Corpuscular Hemoglobin 32 pg (25-35) Mean Corpuscular Hemoglobin Concent 34 g/dL (31-37) Red Cell Distribution Width 13.8 % (11.5-14.5) Platelet Count 185 x10^3/uL (140-400) Neutrophils (%) (Auto) 84 % (31-73) Lymphocytes (%) (Auto) 5 % (24-48) Monocytes (%) (Auto) 9 % (0-9) Eosinophils (%) (Auto) 2 % (0-3) Basophils (%) (Auto) 1 % (0-3) Neutrophils # (Auto) 9.2 x10^3uL (1.8-7.7) Lymphocytes # (Auto) 0.5 x10^3/uL (1.0-4.8) Monocytes # (Auto) 1.0 x10^3/uL (0.0-1.1) Eosinophils # (Auto) 0.2 x10^3/uL (0.0-0.7) Basophils # (Auto) 0.1 x10^3/uL (0.0-0.2) Segmented Neutrophils % 88 % (35-66) Lymphocytes % 4 % (24-48) Monocytes % 7 % (0-10) Eosinophils % 1 % (0-5) Platelet Estimate Adequate (ADEQUATE) Large Platelets Occ Sodium Level 140 mmol/L (136-145) Potassium Level 6.1 mmol/L (3.5-5.1) Chloride Level 100 mmol/L (98-107) Carbon Dioxide Level 28 mmol/L (21-32) Anion Gap 12 (6-14) Blood Urea Nitrogen 67 mg/dL (8-26) Creatinine 12.0 mg/dL (0.7-1.3) Estimated GFR (Cockcroft-Gault) 4.3 Glucose Level 99 mg/dL (70-99) Calcium Level 8.9 mg/dL (8.5-10.1) Laboratory Tests Test 09/22/18 20:30 09/23/18 05:00 09/23/18 07:41 Glucose (Fingerstick) 108 mg/dL (70-99) 88 mg/dL (70-99) White Blood Count 10.9 x10^3/uL (4.0-11.0) Red Blood Count 3.99 x10^6/uL (4.30-5.70) Hemoglobin 12.8 g/dL (13.0-17.5) Hematocrit 37.8 % (39.0-53.0) Mean Corpuscular Volume 95 fL (79-100) Mean Corpuscular Hemoglobin 32 pg (25-35) Mean Corpuscular Hemoglobin Concent 34 g/dL (31-37) Red Cell Distribution Width 13.8 % (11.5-14.5) Platelet Count 185 x10^3/uL (140-400) Neutrophils (%) (Auto) 84 % (31-73) Lymphocytes (%) (Auto) 5 % (24-48) Monocytes (%) (Auto) 9 % (0-9) Eosinophils (%) (Auto) 2 % (0-3) Basophils (%) (Auto) 1 % (0-3) Neutrophils # (Auto) 9.2 x10^3uL (1.8-7.7) Lymphocytes # (Auto) 0.5 x10^3/uL (1.0-4.8) Monocytes # (Auto) 1.0 x10^3/uL (0.0-1.1) Eosinophils # (Auto) 0.2 x10^3/uL (0.0-0.7) Basophils # (Auto) 0.1 x10^3/uL (0.0-0.2) Segmented Neutrophils % 88 % (35-66) Lymphocytes % 4 % (24-48) Monocytes % 7 % (0-10) Eosinophils % 1 % (0-5) Platelet Estimate Adequate (ADEQUATE) Large Platelets Occ Sodium Level 140 mmol/L (136-145) Potassium Level 6.1 mmol/L (3.5-5.1) Chloride Level 100 mmol/L (98-107) Carbon Dioxide Level 28 mmol/L (21-32) Anion Gap 12 (6-14) Blood Urea Nitrogen 67 mg/dL (8-26) Creatinine 12.0 mg/dL (0.7-1.3) Estimated GFR (Cockcroft-Gault) 4.3 Glucose Level 99 mg/dL (70-99) Calcium Level 8.9 mg/dL (8.5-10.1) Medications Current Medications Ondansetron HCl (Zofran) 4 mg PRN Q6HRS PRN IV NAUSEA/VOMITING; Start 09/22/18 at 16:00 Prochlorperazine Edisylate (Compazine) 10 mg PRN Q6HRS PRN IV NAUSEA/VOMITING; Start 09/22/18 at 16:00 Calcium Carbonate/ Glycine (Tums) 500 mg PRN Q3HRS PRN PO UPSET STOMACH; Start 09/22/18 at 16:00 Oxycodone HCl (Roxicodone) 5 mg PRN Q3HRS PRN PO BREAKTHROUGH PAIN; Start 09/22 at 16:00 Morphine Sulfate (Morphine Sulfate) 2 mg PRN Q2HR PRN IV PAIN Last administered on 09/22/18at 23:03; Start 09/22/18 at 16:00 Acetaminophen (Tylenol) 650 mg PRN Q6HRS PRN PO Headaches, Temp > 101.5F; Start 09/22/18 at 16:00 Ibuprofen (Motrin) 400 mg PRN Q6HRS PRN PO MILD PAIN; Start 09/22/18 at 16:00; Stop 09/22/18 at 16:15; Status DC Labetalol HCl (Normodyne Iv Push) 20 mg PRN Q2HR PRN IVP HYPERTENSION, SEE COMMENTS; Start 09/22/18 at 16:00 Alprazolam (Xanax) 1 mg PRN Q6HRS PRN PO ANXIETY / AGITATION Last administered on 09/22/18at 23:02; Start 09/22/18 at 16:00 Alprazolam (Xanax) 1 mg TID PO Last administered on 09/23/18at 08:30; Start 09/22/18 at 16:30 Aspirin (Children'S Aspirin) 81 mg DAILYWBKFT PO ; Start 09/23/18 at 08:00 Calcium Carbonate/ Glycine (Tums) 1,000 mg TIDAC PO Last administered on at 16:25; Start 09/22/18 at 16:30 Clopidogrel Bisulfate (Plavix) 75 mg DAILY PO ; Start 09/23/18 at 09:00 Vitamin B Complex/ Vitamin C (Frances-Chilo) 1 tab DAILY PO ; Start 09/23/18 at 09: 00 Losartan Potassium (Cozaar) 50 mg DAILY PO ; Start 09/23/18 at 09:00 Tamsulosin HCl (Flomax) 0.4 mg QHS PO Last administered on 09/22/18at 20:17; Start 09/22/18 at 21:00 Hydralazine HCl (Apresoline) 50 mg TID PO Last administered on 09/22/18at 20:17 ; Start 09/22/18 at 16:30 Metoprolol Tartrate (Lopressor) 100 mg BID PO Last administered on 09/22/18at 20 :16; Start 09/22/18 at 21:00 Pantoprazole Sodium (Protonix) 40 mg DAILYAC PO ; Start 09/23/18 at 07:30 Paroxetine HCl (Paxil) 40 mg DAILY PO ; Start 09/23/18 at 09:00 Diphenhydramine HCl (Benadryl) 25 mg PRN QHS PRN PO INSOMNIA; Start 09/22/18 at 16:00 Loperamide HCl (Imodium) 2 mg PRN Q15MIN PRN PO DIARRHEA; Start 09/22/18 at 16: 00 Famotidine (Pepcid) 20 mg Q48H PO Last administered on 09/22/18at 20:17; Start 09/22/18 at 21:00 Dicyclomine HCl (Bentyl) 10 mg TID PO Last administered on 09/22/18at 20:17; Start 09/22/18 at 21:00 Magnesium Sulfate 50 ml @ 25 mls/hr PRN DAILY PRN IV for Mag < 1.7 on am labs; Start 09/23/18 at 08:45 Sodium Chloride 1,000 ml @ 1,000 mls/hr Q1H PRN IV hypotension; Start 09/23/18 at 08:50; Stop 09/23/18 at 14:49; Status UNV Sodium Chloride 1,000 ml @ 400 mls/hr Q2H30M PRN IV PATENCY; Start 09/23/18 at 08:50; Stop 09/23/18 at 20:49; Status UNV Info (PHARMACY MONITORING -- do not chart) 1 each PRN DAILY PRN MC SEE COMMENTS ; Start 09/23/18 at 09:00; Status UNV Info (PHARMACY MONITORING -- do not chart) 1 each PRN DAILY PRN MC SEE COMMENTS ; Start 09/23/18 at 09:00; Status UNV Active Scripts Active Xanax (Alprazolam) 1 Mg Tablet 1 Mg PO PRN Q6HRS PRN Cozaar (Losartan Potassium) 50 Mg Tablet 50 Mg PO DAILY Flomax (Tamsulosin Hcl) 0.4 Mg Cap.er.24h 0.4 Mg PO QHS Reported Xanax (Alprazolam) 1 Mg Tablet 1 Tab PO TID Aspirin 81 Mg Tab.chew 81 Tab PO DAILY Metoprolol Tartrate 100 Mg Tablet 1 Tab PO BID Plavix (Clopidogrel Bisulfate) 75 Mg Tablet 75 PO DAILY Hydralazine Hcl 50 Mg Tablet 50 TID Nephro-Chilo Tablet (Folic Acid/Vitamin B Comp W-C) 0.8 Mg Tablet 1 Tab PO DAILY Paroxetine Hcl 20 Mg Tablet 40 Mg PO DAILY Tums (Calcium Carbonate) 200 Mg Tab.chew 800 Mg PO TIDAC Omeprazole Magnesium 20 Mg Capsule.dr 20 Mg PO DAILY Vitals/I & O Vital Sign - Last 24 Hours 09/22/18 09/22/18 09/22/18 09/22/18 15:53 16:11 16:26 16:29 Temp 95.7 95.7 Pulse 79 79 Resp 20 B/P (MAP) 179/94 (122) 179/94 Pulse Ox 91 91 O2 Delivery Nasal Cannula Nasal Cannula Nasal Cannula O2 Flow Rate 2.0 2.0 2.0 09/22/18 09/22/18 09/22/18 09/22/18 19:20 20:00 20:15 20:16 Temp 97.4 97.4 Pulse 67 67 Resp 18 B/P (MAP) 175/87 (116) 175/87 Pulse Ox 94 O2 Delivery Nasal Cannula Nasal Cannula Nasal Cannula O2 Flow Rate 2.0 2.0 2.0 09/22/18 09/22/18 09/22/18 09/22/18 20:17 23:03 23:20 23:33 Temp 97.5 97.5 Pulse 67 65 Resp 18 B/P (MAP) 175/87 167/80 (109) Pulse Ox 93 O2 Delivery Nasal Cannula Nasal Cannula Nasal Cannula O2 Flow Rate 2.0 2.0 2.0 09/23/18 09/23/18 09/23/18 03:20 07:00 07:25 Temp 97.7 97.7 97.7 97.7 Pulse 70 71 Resp 22 18 B/P (MAP) 162/75 (104) 167/80 (109) Pulse Ox 92 94 O2 Delivery Nasal Cannula Nasal Cannula Nasal Cannula O2 Flow Rate 3.0 3.0 2.0 Intake and Output 09/22/18 09/22/18 09/23/18 15:00 23:00 07:00 Intake Total 50 ml 200 ml Output Total 0 ml Balance 50 ml 200 ml TEAGAN FERRARI MD Sep 23, 2018 09:09
--- NOTE | 2018-09-23 09:33 | PDOC2 ---
GI CONSULT Reason For Consult: Abd pain, diarrhea again HPI: HPI: 63 y/o male pamho we have seen many times, transferred from [facility] yesterday. Yesterday after eating soup and maybe having a couple beers, felt short of breath (which he calls "choking"). Associated w/ HTN, anxiety, neck swelling, abd pain, nausea, and diarrhea. [place] better w/ morphine and Ativan. Denies GI complaints this morning - ate breakfast without issue, has no abdominal pain, and has not had recurrent diarrhea. Thinks all symptoms are related to his heart and would like to have O2 at home for PRN use. Diarrhea isn't unusual for him, takes an OTc medication (says not Imodium) PRN w / good response. H/o GERD on Tums PRN. H/o bleeding DU s/p endotherapy. EGD 2014: mild gastritis and duodenitis. Colonoscopy 2016: internal hemorrhoids, random biopsies w/ microscopic/ lymphocytic colitis. Previously took sulfasalazine. S/p cholecystectomy. H/o pancreatitis - MRCP 2015: unremarkable. CA19-9 and IgG4 WNL in 2016. Denies NSAIDs. Is on Plavix. PMH: PMH: ESRD on HD, ASHD post CABG, PVD w/ stents, HTN, HLP, RIC< BPH, A Fib, OA, peripheral neuropathy, anxiety/depression, COPD, lung cancer w/ chemo-rad, prior bladder cancer (no resection), secondary hyperparathyroidism, positive TB test remotely, cholecystectomy, AV fistula, ECCE, cystoscopy FH: Family History: Cancer, CAD, CVA, DM Social History: Smoke: Quit ALCOHOL: occassional Drugs: None ROS: GEN: Denies fevers, chills, sweats HEENT: Denies blurred vision, sore throat CV: Denies chest pain RESP: +shortness of air GI: Per HPI : Denies hematuria, dysuria ENDO: Denies weight changes NEURO: Denies confusion, dizziness MSK: Denies weakness, joint pain/swelling SKIN: Denies jaundice, pruritus Vitals: Vitals: Vital Signs Date Time Temp Pulse Resp B/P (MAP) Pulse Ox O2 Delivery O2 Flow Rate FiO2 09/23/18 07:25 Nasal Cannula 2.0 09/23/18 07:00 97.7 71 18 167/80 (109) 94 97.7 Labs: Labs: Laboratory Tests Test 09/22/18 20:30 09/23/18 05:00 09/23/18 07:41 Glucose (Fingerstick) 108 mg/dL (70-99) 88 mg/dL (70-99) White Blood Count 10.9 x10^3/uL (4.0-11.0) Red Blood Count 3.99 x10^6/uL (4.30-5.70) Hemoglobin 12.8 g/dL (13.0-17.5) Hematocrit 37.8 % (39.0-53.0) Mean Corpuscular Volume 95 fL (79-100) Mean Corpuscular Hemoglobin 32 pg (25-35) Mean Corpuscular Hemoglobin Concent 34 g/dL (31-37) Red Cell Distribution Width 13.8 % (11.5-14.5) Platelet Count 185 x10^3/uL (140-400) Neutrophils (%) (Auto) 84 % (31-73) Lymphocytes (%) (Auto) 5 % (24-48) Monocytes (%) (Auto) 9 % (0-9) Eosinophils (%) (Auto) 2 % (0-3) Basophils (%) (Auto) 1 % (0-3) Neutrophils # (Auto) 9.2 x10^3uL (1.8-7.7) Lymphocytes # (Auto) 0.5 x10^3/uL (1.0-4.8) Monocytes # (Auto) 1.0 x10^3/uL (0.0-1.1) Eosinophils # (Auto) 0.2 x10^3/uL (0.0-0.7) Basophils # (Auto) 0.1 x10^3/uL (0.0-0.2) Segmented Neutrophils % 88 % (35-66) Lymphocytes % 4 % (24-48) Monocytes % 7 % (0-10) Eosinophils % 1 % (0-5) Platelet Estimate Adequate (ADEQUATE) Large Platelets Occ Sodium Level 140 mmol/L (136-145) Potassium Level 6.1 mmol/L (3.5-5.1) Chloride Level 100 mmol/L (98-107) Carbon Dioxide Level 28 mmol/L (21-32) Anion Gap 12 (6-14) Blood Urea Nitrogen 67 mg/dL (8-26) Creatinine 12.0 mg/dL (0.7-1.3) Estimated GFR (Cockcroft-Gault) 4.3 Glucose Level 99 mg/dL (70-99) Calcium Level 8.9 mg/dL (8.5-10.1) Allergies: Coded Allergies: aspirin (Verified Allergy, Intermediate, 06/10/18) takes 81mg daily at home Medications: Current Medications Medications (Trade) Dose Ordered Sig/Cirilo Route PRN Reason Start Time Stop Time Status Last Admin Dose Admin Morphine Sulfate (Morphine Sulfate) 2 mg PRN Q2HR PRN IV PAIN 09/22/18 16:00 09/22/18 23:03 Alprazolam (Xanax) 1 mg PRN Q6HRS PRN PO ANXIETY / AGITATION 09/22/18 16:00 09/22/18 23:02 Alprazolam (Xanax) 1 mg TID PO 09/22/18 16:30 09/23/18 08:30 Calcium Carbonate/ Glycine (Tums) 1,000 mg TIDAC PO 09/22/18 16:30 09/22/18 16:25 Tamsulosin HCl (Flomax) 0.4 mg QHS PO 09/22/18 21:00 09/22/18 20:17 Hydralazine HCl (Apresoline) 50 mg TID PO 09/22/18 16:30 09/22/18 20:17 Metoprolol Tartrate (Lopressor) 100 mg BID PO 09/22/18 21:00 09/22/18 20:16 Famotidine (Pepcid) 20 mg Q48H PO 09/22/18 21:00 09/22/18 20:17 Dicyclomine HCl (Bentyl) 10 mg TID PO 09/22/18 21:00 09/22/18 20:17 Imaging: Imaging: Extensive - reviewed in [facility]. PE: GEN: NAD, was walking the halls LUNGS: diminished, NC HEART: RRR ABD: NABS, S/ND/NT EXTREMITY: No edema SKIN: No rashes, no jaundice NEURO/PSYCH: A & O 3, talkative and friendly A/P: A/P: Shortness of breath - extensive cardiopulm history as above HTN ESRD, hyperkalemia Anxiety Abd pain, nausea, diarrhea - resolved, past GI history as above -- GI symptoms improved/resolving. Continue per other services. Continue PPI. Okay to try Bentyl. Has Imodium PRN. TOMMY SALVADOR Sep 23, 2018 09:33
[2018-09-23] MEDS ORDERED: diphenhydrAMINE 50 MG/ML VIAL ONE (10:00)
[2018-09-23] MEDS ORDERED: diphenhydrAMINE 50 MG/ML VIAL IM ONE (10:15)
[2018-09-23] MEDS ORDERED: DICYCLOMINE HCL 10 MG CAPSULE PO PRN (10:30)
--- NOTE | 2018-09-23 11:29 | PDOC2 ---
CONSULT Date of Consult Date of Consult DATE: 09/23/18 TIME: 11:15 Reason for Consult Reason for Consult: Chest pain, dyspnea Referring Physician Referring Physician: Dr. Johnson Identification/Chief Complaint Chief Complaint Abd pain, chest pain, diarrhea Source Source: Patient History of Present Illness Reason for Visit: Jamar Long is a 63 yo male transferred here from [place] with complaints of abdominal pain, nausea, vomiting, diarrhea, chest pain, and anxiety. He was complaining of heartburn like chest pain that resolved with tums, and progressively worsening dyspnea yesterday morning that has since resolved with oxygen. His cardiac history includes CAD, CHF, HTN, DE. He has ESRD 2/2 PCKD and is on dialysis. He currently denies any chest pain or dyspnea. Past Medical History Cardiovascular: CAD, CHF, HTN, DE Pulmonary: No pertinent hx, Other GI: Constipation, GERD, Other Heme/Onc: Anemia NOS, Cancer Psych: Anxiety, Depression Renal/: Chronic renal failure, Bladder Ca., Other Endocrine: Diabetes, Hyperparathyroidism Past Surgical History Past Surgical History: Appendectomy, Cholecystectomy, CABG, Other Family History Family History: Cancer, Diabetes, Kidney Disease, Stroke Social History Quit ALCOHOL: occassional Drugs: None Lives: with Family Domestic Violence: Neg Current Medications Current Medications Current Medications Ondansetron HCl (Zofran) 4 mg PRN Q6HRS PRN IV NAUSEA/VOMITING; Start 09/22/18 at 16:00 Prochlorperazine Edisylate (Compazine) 10 mg PRN Q6HRS PRN IV NAUSEA/VOMITING; Start 09/22/18 at 16:00 Calcium Carbonate/ Glycine (Tums) 500 mg PRN Q3HRS PRN PO UPSET STOMACH; Start 09/22/18 at 16:00 Oxycodone HCl (Roxicodone) 5 mg PRN Q3HRS PRN PO BREAKTHROUGH PAIN; Start 09/22 at 16:00 Morphine Sulfate (Morphine Sulfate) 2 mg PRN Q2HR PRN IV PAIN Last administered on 09/22/18at 23:03; Start 09/22/18 at 16:00 Acetaminophen (Tylenol) 650 mg PRN Q6HRS PRN PO Headaches, Temp > 101.5F; Start 09/22/18 at 16:00 Ibuprofen (Motrin) 400 mg PRN Q6HRS PRN PO MILD PAIN; Start 09/22/18 at 16:00; Stop 09/22/18 at 16:15; Status DC Labetalol HCl (Normodyne Iv Push) 20 mg PRN Q2HR PRN IVP HYPERTENSION, SEE COMMENTS; Start 09/22/18 at 16:00 Alprazolam (Xanax) 1 mg PRN Q6HRS PRN PO ANXIETY / AGITATION Last administered on 09/22/18at 23:02; Start 09/22/18 at 16:00 Alprazolam (Xanax) 1 mg TID PO Last administered on 09/23/18at 08:30; Start 09/22/18 at 16:30 Aspirin (Children'S Aspirin) 81 mg DAILYWBKFT PO ; Start 09/23/18 at 08:00 Calcium Carbonate/ Glycine (Tums) 1,000 mg TIDAC PO Last administered on at 16:25; Start 09/22/18 at 16:30 Clopidogrel Bisulfate (Plavix) 75 mg DAILY PO ; Start 09/23/18 at 09:00 Vitamin B Complex/ Vitamin C (Frances-Chilo) 1 tab DAILY PO ; Start 09/23/18 at 09: 00 Losartan Potassium (Cozaar) 50 mg DAILY PO ; Start 09/23/18 at 09:00 Tamsulosin HCl (Flomax) 0.4 mg QHS PO Last administered on 09/22/18at 20:17; Start 09/22/18 at 21:00 Hydralazine HCl (Apresoline) 50 mg TID PO Last administered on 09/22/18at 20:17 ; Start 09/22/18 at 16:30 Metoprolol Tartrate (Lopressor) 100 mg BID PO Last administered on 09/22/18at 20 :16; Start 09/22/18 at 21:00 Pantoprazole Sodium (Protonix) 40 mg DAILYAC PO ; Start 09/23/18 at 07:30 Paroxetine HCl (Paxil) 40 mg DAILY PO ; Start 09/23/18 at 09:00 Diphenhydramine HCl (Benadryl) 25 mg PRN QHS PRN PO INSOMNIA; Start 09/22/18 at 16:00 Loperamide HCl (Imodium) 2 mg PRN Q15MIN PRN PO DIARRHEA; Start 09/22/18 at 16: 00 Famotidine (Pepcid) 20 mg Q48H PO Last administered on 09/22/18at 20:17; Start 09/22/18 at 21:00; Stop 09/23/18 at 10:27; Status DC Dicyclomine HCl (Bentyl) 10 mg TID PO Last administered on 09/22/18at 20:17; Start 09/22/18 at 21:00 Magnesium Sulfate 50 ml @ 25 mls/hr PRN DAILY PRN IV for Mag < 1.7 on am labs; Start 09/23/18 at 08:45 Sodium Chloride 1,000 ml @ 1,000 mls/hr Q1H PRN IV hypotension; Start 09/23/18 at 08:50; Stop 09/23/18 at 14:49 Sodium Chloride 1,000 ml @ 400 mls/hr Q2H30M PRN IV PATENCY; Start 09/23/18 at 08:50; Stop 09/23/18 at 20:49 Info (PHARMACY MONITORING -- do not chart) 1 each PRN DAILY PRN MC SEE COMMENTS ; Start 09/23/18 at 09:00; Status UNV Info (PHARMACY MONITORING -- do not chart) 1 each PRN DAILY PRN MC SEE COMMENTS ; Start 09/23/18 at 09:00 Diphenhydramine HCl (Benadryl) 50 mg 1X ONCE IM ; Start 09/23/18 at 10:15; Stop 09/23/18 at 10:20; Status DC Dicyclomine HCl (Bentyl) 10 mg PRN QID PRN PO ABDOMINAL PAIN; Start 09/23/18 at 10:30 Active Scripts Active Xanax (Alprazolam) 1 Mg Tablet 1 Mg PO PRN Q6HRS PRN Cozaar (Losartan Potassium) 50 Mg Tablet 50 Mg PO DAILY Flomax (Tamsulosin Hcl) 0.4 Mg Cap.er.24h 0.4 Mg PO QHS Reported Xanax (Alprazolam) 1 Mg Tablet 1 Tab PO TID Aspirin 81 Mg Tab.chew 81 Tab PO DAILY Metoprolol Tartrate 100 Mg Tablet 1 Tab PO BID Plavix (Clopidogrel Bisulfate) 75 Mg Tablet 75 PO DAILY Hydralazine Hcl 50 Mg Tablet 50 TID Nephro-Chilo Tablet (Folic Acid/Vitamin B Comp W-C) 0.8 Mg Tablet 1 Tab PO DAILY Paroxetine Hcl 20 Mg Tablet 40 Mg PO DAILY Tums (Calcium Carbonate) 200 Mg Tab.chew 800 Mg PO TIDAC Omeprazole Magnesium 20 Mg Capsule.dr 20 Mg PO DAILY Allergies Allergies: Coded Allergies: aspirin (Verified Allergy, Intermediate, 06/10/18) takes 81mg daily at home Physical Exam Lungs: Clear to auscultation Heart: Regular rate, Normal S1, Normal S2 Vitals VITALS Vital Signs Date Time Temp Pulse Resp B/P (MAP) Pulse Ox O2 Delivery O2 Flow Rate FiO2 09/23/18 07:25 Nasal Cannula 2.0 09/23/18 07:00 97.7 71 18 167/80 (109) 94 97.7 Labs Labs Laboratory Tests Test 09/22/18 20:30 09/23/18 05:00 09/23/18 07:41 09/23/18 09:50 Glucose (Fingerstick) 108 mg/dL (70-99) 88 mg/dL (70-99) White Blood Count 10.9 x10^3/uL (4.0-11.0) Red Blood Count 3.99 x10^6/uL (4.30-5.70) Hemoglobin 12.8 g/dL (13.0-17.5) Hematocrit 37.8 % (39.0-53.0) Mean Corpuscular Volume 95 fL (79-100) Mean Corpuscular Hemoglobin 32 pg (25-35) Mean Corpuscular Hemoglobin Concent 34 g/dL (31-37) Red Cell Distribution Width 13.8 % (11.5-14.5) Platelet Count 185 x10^3/uL (140-400) Neutrophils (%) (Auto) 84 % (31-73) Lymphocytes (%) (Auto) 5 % (24-48) Monocytes (%) (Auto) 9 % (0-9) Eosinophils (%) (Auto) 2 % (0-3) Basophils (%) (Auto) 1 % (0-3) Neutrophils # (Auto) 9.2 x10^3uL (1.8-7.7) Lymphocytes # (Auto) 0.5 x10^3/uL (1.0-4.8) Monocytes # (Auto) 1.0 x10^3/uL (0.0-1.1) Eosinophils # (Auto) 0.2 x10^3/uL (0.0-0.7) Basophils # (Auto) 0.1 x10^3/uL (0.0-0.2) Segmented Neutrophils % 88 % (35-66) Lymphocytes % 4 % (24-48) Monocytes % 7 % (0-10) Eosinophils % 1 % (0-5) Platelet Estimate Adequate (ADEQUATE) Large Platelets Occ Sodium Level 140 mmol/L (136-145) Potassium Level 6.1 mmol/L (3.5-5.1) 5.2 mmol/L (3.5-5.1) Chloride Level 100 mmol/L (98-107) Carbon Dioxide Level 28 mmol/L (21-32) Anion Gap 12 (6-14) Blood Urea Nitrogen 67 mg/dL (8-26) Creatinine 12.0 mg/dL (0.7-1.3) Estimated GFR (Cockcroft-Gault) 4.3 Glucose Level 99 mg/dL (70-99) Calcium Level 8.9 mg/dL (8.5-10.1) Laboratory Tests Test 09/22/18 20:30 09/23/18 05:00 09/23/18 07:41 09/23/18 09:50 Glucose (Fingerstick) 108 mg/dL (70-99) 88 mg/dL (70-99) White Blood Count 10.9 x10^3/uL (4.0-11.0) Red Blood Count 3.99 x10^6/uL (4.30-5.70) Hemoglobin 12.8 g/dL (13.0-17.5) Hematocrit 37.8 % (39.0-53.0) Mean Corpuscular Volume 95 fL (79-100) Mean Corpuscular Hemoglobin 32 pg (25-35) Mean Corpuscular Hemoglobin Concent 34 g/dL (31-37) Red Cell Distribution Width 13.8 % (11.5-14.5) Platelet Count 185 x10^3/uL (140-400) Neutrophils (%) (Auto) 84 % (31-73) Lymphocytes (%) (Auto) 5 % (24-48) Monocytes (%) (Auto) 9 % (0-9) Eosinophils (%) (Auto) 2 % (0-3) Basophils (%) (Auto) 1 % (0-3) Neutrophils # (Auto) 9.2 x10^3uL (1.8-7.7) Lymphocytes # (Auto) 0.5 x10^3/uL (1.0-4.8) Monocytes # (Auto) 1.0 x10^3/uL (0.0-1.1) Eosinophils # (Auto) 0.2 x10^3/uL (0.0-0.7) Basophils # (Auto) 0.1 x10^3/uL (0.0-0.2) Segmented Neutrophils % 88 % (35-66) Lymphocytes % 4 % (24-48) Monocytes % 7 % (0-10) Eosinophils % 1 % (0-5) Platelet Estimate Adequate (ADEQUATE) Large Platelets Occ Sodium Level 140 mmol/L (136-145) Potassium Level 6.1 mmol/L (3.5-5.1) 5.2 mmol/L (3.5-5.1) Chloride Level 100 mmol/L (98-107) Carbon Dioxide Level 28 mmol/L (21-32) Anion Gap 12 (6-14) Blood Urea Nitrogen 67 mg/dL (8-26) Creatinine 12.0 mg/dL (0.7-1.3) Estimated GFR (Cockcroft-Gault) 4.3 Glucose Level 99 mg/dL (70-99) Calcium Level 8.9 mg/dL (8.5-10.1) Assessment/Plan Assessment/Plan CHF exacerbation 2/2 fluid overload/ESRD - pt will be receiving dialysis today. Will continue to follow. Thank you for asking me to participate in the care of this patient. ESTEFANÍA MANZO MD Sep 23, 2018 11:29
[2018-09-23 15:00] VITALS: BP 113/67
--- NOTE | 2018-09-23 15:22 | RAD ---
AP and Lateral Views of the Chest 09/23/2018 3:07 PM Indication: reval CHF/ DIALYSIS, HX OF RIGHT LUNG CANCER, HX OF LAYTEN TB, Comparison: Single view of the chest July 17, 2018. CT of the chest July 18, 2018 Findings: Prior median sternotomy noted. The left internal jugular PowerPort is normal in position. No pneumothorax is identified. Mild central vascular congestion appears to be present. Small bilateral pleural effusions are seen. Previously seen masslike consolidation in the right lung base is slightly less prominent than on prior study. Heart size remains normal. No acute osseous changes are noted in the interim. IMPRESSION: 1. Mild central vascular congestion and small bilateral pleural effusions 2. Decreased prominence of right lower lobe opacity in the interim, as described Electronically signed by: Bassem Tay MD (09/23/2018 3:19 PM) [facility]
--- NOTE | 2018-09-23 19:13 | CARD ---
MR#: [id number] Date of Study: 09/23/2018 Ordering Physician: TING GARDUNO, Referring Physician: HARRIET GARCIA Tech: Gaby French RDCS APPROVED REPORT EXAM: Two-dimensional and M-mode echocardiogram with Doppler and color Doppler. Other Information Quality : GoodHR: 115bpm Rhythm : TachycardiaTechnically limited study due to irregular heart rate. INDICATION Hypertension/HCVD Congestive Heart Failure Edema 2D DIMENSIONS RVDd2.3 (2.9-3.5cm)Left Atrium(2D)3.4 (1.6-4.0cm) IVSd1.9 (0.7-1.1cm)Aortic Root(2D)3.8 (2.0-3.7cm) LVDd4.3 (3.9-5.9cm)LVOT Diameter2.1 (1.8-2.4cm) PWd1.6 (0.7-1.1cm)LVDs3.8 (2.5-4.0cm) FS (%) 10.2 %SV18.6 ml LVEF(%)30.0 (>50%) M-Mode DIMENSIONS Left Atrium(MM)3.80 (2.5-4.0cm)IVSd1.80 (0.7-1.1cm) Aortic Root3.80 (2.2-3.7cm)LVDd4.91 (4.0-5.6cm) PWd1.11 (0.7-1.1cm)FS (%) 58 % LVDs2.08 (2.0-3.8cm)ESV(Teich)14.1 ml LVEF(%)88 (>50%) Aortic Valve AoV Peak Nathanael.173.3cm/sAoV VTI39.7cm AO Peak GR.12.0mmHgLVOT Peak Nathanael.99.6cm/s AO Mean GR.7mmHgAVA (VMAX)1.97cm2 BETTIE (VTI)2.00cm2 Mitral Valve MV E Wccjoyqo46.6cm/sMV E Peak Gr.3mmHg MV DECEL [id number] A Ttvpzqll18.2cm/s MV E Mean Gr.0mmHgE/A Ratio0.7 MV A [id number] Pulmonary Valve PV Peak Tfeaofce841.8cm/s LEFT VENTRICLE The left ventricle chamber is small. There is severe concentric left ventricular hypertrophy. The LV systolic function is moderately to severely impaired. The Ejection Fraction is 30%. There is global h ypokinesis of the left ventricle. Transmitral Doppler flow pattern is Grade IV-fixed restrictive hutchins tolic dysfunction. RIGHT VENTRICLE The right ventricle is normal size. There is normal right ventricular wall thickness. RV Systolic fun ction is mildly reduced. ATRIA The left atrium is borderline dilated. The right atrium size is normal. The interatrial septum is int act with no evidence for an atrial septal defect or patent foramen ovale as noted on 2-D or Doppler i maging. AORTIC VALVE The aortic valve is trileaflet. The aortic valve is normal in structure and function. Doppler and Col or Flow revealed no significant aortic regurgitation. There is no significant aortic valvular stenosi s. MITRAL VALVE The mitral valve is normal in structure and function. There is no evidence of mitral valve prolapse. There is no mitral valve stenosis. Doppler and Color Flow revealed no mitral valve regurgitation note d. TRICUSPID VALVE The tricuspid valve is normal in structure and function. Doppler and Color Flow revealed no tricuspid valve regurgitation noted. There is no tricuspid valve prolapse or vegetation. There is no tricuspid valve stenosis. PULMONIC VALVE The pulmonary valve is normal in structure and function. Doppler and Color Flow revealed trace pulmon ic valvular regurgitation. There is no pulmonic valvular stenosis. GREAT VESSELS The aortic root is mildly enlarged. The ascending aorta is normal in size. PERICARDIAL EFFUSION There is no evidence of significant pericardial effusion. Critical Notification Critical Value: No <Conclusion> There is severe concentric left ventricular hypertrophy. The LV systolic function is moderately to severely impaired. The Ejection Fraction is 30%. Transmitral Doppler flow pattern is Grade IV-fixed restrictive diastolic dysfunction. RV Systolic function is mildly reduced. The left atrium is borderline dilated. The right atrium size is normal. The aortic valve is trileaflet. The aortic valve is normal in structure and function. The mitral valve is normal in structure and function. The tricuspid valve is normal in structure and function. Doppler and Color Flow revealed trace pulmonic valvular regurgitation. The aortic root is mildly enlarged. There is no evidence of significant pericardial effusion. This pt has severe systolic and diastolic dysfunction Signed by : Leighton Kiran MD Electronically Approved : 09/23/2018 19:12:45
[2018-09-23 19:15] VITALS: BP 132/65
[2018-09-23] MEDS: TAMSULOSIN 0.4 MG CAP.ER.24H. PO SCH (20:00)
[2018-09-23] MEDS: MORPHINE SULFATE 2 MG/ML VIAL. IV PRN ×2 (20:02→23:09)
[2018-09-23 23:15] VITALS: BP 117/64
[2018-09-24 03:15] VITALS: BP 123/60
[2018-09-24] MEDS: ALPRAZolam 1 MG TABLET PO PRN (04:17)
[2018-09-24] MEDS: MORPHINE SULFATE 2 MG/ML VIAL. IV PRN ×2 (05:44→08:54)
[2018-09-24 07:00] VITALS: BP 131/69
[2018-09-24 08:12] LABS: ALBUMIN 3.5 g/dL (3.4-5.0); CREATININE 9.3 mg/dL (0.7-1.3); GFR 5.8; MAGNESIUM 2.3 mg/dL (1.8-2.4); POTASSIUM 4.7 mmol/L (3.5-5.1)
[2018-09-24] MEDS: CLOPIDOGREL BISULFATE 75 MG TABLET PO SCH (08:45)
[2018-09-24] MEDS: FOLIC/VIT B COMP W-C (RENAL) TABLET. PO SCH (08:45)
[2018-09-24] MEDS: CALCIUM CARBONATE 500 MG TAB.CHEW PO SCH ×2 (08:46→12:41)
[2018-09-24] MEDS: ALPRAZolam 1 MG TABLET PO SCH (08:46)
[2018-09-24] MEDS: ASPIRIN CHEWABLE 81 MG TABLET. PO SCH (08:46)
[2018-09-24] MEDS: PARoxetine 20 MG TABLET PO SCH (08:47)
[2018-09-24] MEDS: METOPROLOL TART IMMED RELEASE 50 MG TABLET. PO SCH (08:47)
[2018-09-24] MEDS: LOSARTAN POTASSIUM 50 MG TABLET. PO SCH (08:47)
[2018-09-24] MEDS: DICYCLOMINE HCL 10 MG CAPSULE PO SCH (08:48)
[2018-09-24] MEDS: PANTOPRAZOLE 40 MG TABLET.DR. PO SCH (08:48)
[2018-09-24] MEDS ORDERED: HYDROCORTISONE 1% TOPICAL OINTMENT 30GM TUBE. TP SCH (09:00)
--- NOTE | 2018-09-24 10:56 | PDOC ---
PROGRESS NOTES History of Present Illness History of Present Illness Assessment/Plan Assessment/Plan Chest pain/abdominal pain/acute on chronic diarrhea-off GI medications Anxiety NOS ESRD secondary to polycystic kidney disease on dialysis Anemia of chronic dialysis Leukocytosis Troponin elevation, demand ischemia, in the background of CK D Elevated BNP-chronic Chronic lumbago Insomnia PLAN: HOME TODAY, FEELS BETTER Consult cardiology-known patient Consult GI- COnsult renal re HD home meds including Bentyl, Pepcid, some pain medicines, Imodium, Xanax No PT OT needs-he still drives Labs tomorrow Discussed with patient and RN Vitals Vitals Vital Signs Date Time Temp Pulse Resp B/P (MAP) Pulse Ox O2 Delivery O2 Flow Rate FiO2 09/24/18 08:54 Room Air 09/24/18 08:48 59 131/69 09/24/18 07:00 96.6 20 95 96.6 09/24/18 05:44 2.0 Physical Exam General: Alert, Oriented X3, Cooperative, No acute distress Heart: Regular rate, Normal S1, Normal S2 Lungs: Clear, Crackles Abdomen: Soft, Other (hyperactive bowel sounds, no guarding, some tenderness epigastric area) Extremities: No clubbing, No cyanosis, No edema, Normal pulses, No tenderness/ swelling Skin: No rashes, No breakdown, No significant lesion Labs LABS Echo <Conclusion> There is severe concentric left ventricular hypertrophy. The LV systolic function is moderately to severely impaired. The Ejection Fraction is 30%. Transmitral Doppler flow pattern is Grade IV-fixed restrictive diastolic dysfunction. RV Systolic function is mildly reduced. The left atrium is borderline dilated. The right atrium size is normal. The aortic valve is trileaflet. The aortic valve is normal in structure and function. The mitral valve is normal in structure and function. The tricuspid valve is normal in structure and function. Doppler and Color Flow revealed trace pulmonic valvular regurgitation. The aortic root is mildly enlarged. There is no evidence of significant pericardial effusion. This pt has severe systolic and diastolic dysfunction. Laboratory Tests Test 09/23/18 16:45 09/24/18 07:30 09/24/18 07:46 Glucose (Fingerstick) 128 mg/dL (70-99) 145 mg/dL (70-99) Hemoglobin 13.3 g/dL (13.0-17.5) Sodium Level 139 mmol/L (136-145) Potassium Level 4.7 mmol/L (3.5-5.1) Chloride Level 97 mmol/L (98-107) Carbon Dioxide Level 32 mmol/L (21-32) Anion Gap 10 (6-14) Blood Urea Nitrogen 44 mg/dL (8-26) Creatinine 9.3 mg/dL (0.7-1.3) Estimated GFR (Cockcroft-Gault) 5.8 Glucose Level 118 mg/dL (70-99) Calcium Level 9.0 mg/dL (8.5-10.1) Phosphorus Level 7.0 mg/dL (2.6-4.7) Magnesium Level 2.3 mg/dL (1.8-2.4) Albumin 3.5 g/dL (3.4-5.0) Comment Review of Relevant I have reviewed the following items dionte (where applicable) has been applied. Labs Laboratory Tests Test 09/22/18 20:30 09/23/18 05:00 09/23/18 07:41 09/23/18 09:50 Glucose (Fingerstick) 108 mg/dL (70-99) 88 mg/dL (70-99) White Blood Count 10.9 x10^3/uL (4.0-11.0) Red Blood Count 3.99 x10^6/uL (4.30-5.70) Hemoglobin 12.8 g/dL (13.0-17.5) Hematocrit 37.8 % (39.0-53.0) Mean Corpuscular Volume 95 fL (79-100) Mean Corpuscular Hemoglobin 32 pg (25-35) Mean Corpuscular Hemoglobin Concent 34 g/dL (31-37) Red Cell Distribution Width 13.8 % (11.5-14.5) Platelet Count 185 x10^3/uL (140-400) Neutrophils (%) (Auto) 84 % (31-73) Lymphocytes (%) (Auto) 5 % (24-48) Monocytes (%) (Auto) 9 % (0-9) Eosinophils (%) (Auto) 2 % (0-3) Basophils (%) (Auto) 1 % (0-3) Neutrophils # (Auto) 9.2 x10^3uL (1.8-7.7) Lymphocytes # (Auto) 0.5 x10^3/uL (1.0-4.8) Monocytes # (Auto) 1.0 x10^3/uL (0.0-1.1) Eosinophils # (Auto) 0.2 x10^3/uL (0.0-0.7) Basophils # (Auto) 0.1 x10^3/uL (0.0-0.2) Segmented Neutrophils % 88 % (35-66) Lymphocytes % 4 % (24-48) Monocytes % 7 % (0-10) Eosinophils % 1 % (0-5) Platelet Estimate Adequate (ADEQUATE) Large Platelets Occ Sodium Level 140 mmol/L (136-145) Potassium Level 6.1 mmol/L (3.5-5.1) 5.2 mmol/L (3.5-5.1) Chloride Level 100 mmol/L (98-107) Carbon Dioxide Level 28 mmol/L (21-32) Anion Gap 12 (6-14) Blood Urea Nitrogen 67 mg/dL (8-26) Creatinine 12.0 mg/dL (0.7-1.3) Estimated GFR (Cockcroft-Gault) 4.3 Glucose Level 99 mg/dL (70-99) Calcium Level 8.9 mg/dL (8.5-10.1) Test 09/23/18 16:45 09/24/18 07:30 09/24/18 07:46 Glucose (Fingerstick) 128 mg/dL (70-99) 145 mg/dL (70-99) Hemoglobin 13.3 g/dL (13.0-17.5) Sodium Level 139 mmol/L (136-145) Potassium Level 4.7 mmol/L (3.5-5.1) Chloride Level 97 mmol/L (98-107) Carbon Dioxide Level 32 mmol/L (21-32) Anion Gap 10 (6-14) Blood Urea Nitrogen 44 mg/dL (8-26) Creatinine 9.3 mg/dL (0.7-1.3) Estimated GFR (Cockcroft-Gault) 5.8 Glucose Level 118 mg/dL (70-99) Calcium Level 9.0 mg/dL (8.5-10.1) Phosphorus Level 7.0 mg/dL (2.6-4.7) Magnesium Level 2.3 mg/dL (1.8-2.4) Albumin 3.5 g/dL (3.4-5.0) Laboratory Tests Test 09/23/18 16:45 09/24/18 07:30 09/24/18 07:46 Glucose (Fingerstick) 128 mg/dL (70-99) 145 mg/dL (70-99) Hemoglobin 13.3 g/dL (13.0-17.5) Sodium Level 139 mmol/L (136-145) Potassium Level 4.7 mmol/L (3.5-5.1) Chloride Level 97 mmol/L (98-107) Carbon Dioxide Level 32 mmol/L (21-32) Anion Gap 10 (6-14) Blood Urea Nitrogen 44 mg/dL (8-26) Creatinine 9.3 mg/dL (0.7-1.3) Estimated GFR (Cockcroft-Gault) 5.8 Glucose Level 118 mg/dL (70-99) Calcium Level 9.0 mg/dL (8.5-10.1) Phosphorus Level 7.0 mg/dL (2.6-4.7) Magnesium Level 2.3 mg/dL (1.8-2.4) Albumin 3.5 g/dL (3.4-5.0) Medications Current Medications Ondansetron HCl (Zofran) 4 mg PRN Q6HRS PRN IV NAUSEA/VOMITING 1st Choice; Start 09/22/18 at 16:00 Prochlorperazine Edisylate (Compazine) 10 mg PRN Q6HRS PRN IV NAUSEA/VOMITING 2nd Choice; Start 09/22/18 at 16:00 Calcium Carbonate/ Glycine (Tums) 500 mg PRN Q3HRS PRN PO UPSET STOMACH; Start 09/22/18 at 16:00 Oxycodone HCl (Roxicodone) 5 mg PRN Q3HRS PRN PO BREAKTHROUGH PAIN; Start 09/22 at 16:00 Morphine Sulfate (Morphine Sulfate) 2 mg PRN Q2HR PRN IV PAIN Last administered on 09/24/18at 08:54; Start 09/22/18 at 16:00 Acetaminophen (Tylenol) 650 mg PRN Q6HRS PRN PO Headaches, Temp > 101.5F; Start 09/22/18 at 16:00 Ibuprofen (Motrin) 400 mg PRN Q6HRS PRN PO MILD PAIN; Start 09/22/18 at 16:00; Stop 09/22/18 at 16:15; Status DC Labetalol HCl (Normodyne Iv Push) 20 mg PRN Q2HR PRN IVP HYPERTENSION, SEE COMMENTS; Start 09/22/18 at 16:00 Alprazolam (Xanax) 1 mg PRN Q6HRS PRN PO ANXIETY / AGITATION Last administered on 09/24/18 04:17; Start 09/22/18 at 16:00 Alprazolam (Xanax) 1 mg TID PO Last administered on 09/24/18 08:46; Start 09/22/18 at 16:30 Aspirin (Children'S Aspirin) 81 mg DAILYWBKFT PO Last administered on 08:46; Start 09/23/18 at 08:00 Calcium Carbonate/ Glycine (Tums) 1,000 mg TIDAC PO Last administered on 08:46; Start 09/22/18 at 16:30 Clopidogrel Bisulfate (Plavix) 75 mg DAILY PO Last administered on 09/24/18 08 :45; Start 09/23/18 at 09:00 Vitamin B Complex/ Vitamin C (Frances-Chilo) 1 tab DAILY PO Last administered on 08:45; Start 09/23/18 at 09:00 Losartan Potassium (Cozaar) 50 mg DAILY PO Last administered on 09/24/18 08:47 ; Start 09/23/18 at 09:00 Tamsulosin HCl (Flomax) 0.4 mg QHS PO Last administered on 09/23/18at 20:00; Start 09/22/18 at 21:00 Hydralazine HCl (Apresoline) 50 mg TID PO Last administered on 09/24/18 08:48 ; Start 09/22/18 at 16:30 Metoprolol Tartrate (Lopressor) 100 mg BID PO Last administered on 09/24/18 08 :47; Start 09/22/18 at 21:00 Pantoprazole Sodium (Protonix) 40 mg DAILYAC PO Last administered on 09/24/18 08:48; Start 09/23/18 at 07:30 Paroxetine HCl (Paxil) 40 mg DAILY PO Last administered on 09/24/18 08:47; Start 09/23/18 at 09:00 Diphenhydramine HCl (Benadryl) 25 mg PRN QHS PRN PO INSOMNIA; Start 09/22/18 at 16:00 Loperamide HCl (Imodium) 2 mg PRN Q15MIN PRN PO DIARRHEA; Start 09/22/18 at 16: 00 Famotidine (Pepcid) 20 mg Q48H PO Last administered on 09/22/18at 20:17; Start 09/22/18 at 21:00; Stop 09/23/18 at 10:27; Status DC Dicyclomine HCl (Bentyl) 10 mg TID PO Last administered on 09/24/18at 08:48; Start 09/22/18 at 21:00 Magnesium Sulfate 50 ml @ 25 mls/hr PRN DAILY PRN IV for Mag < 1.7 on am labs; Start 09/23/18 at 08:45 Sodium Chloride 1,000 ml @ 1,000 mls/hr Q1H PRN IV hypotension; Start 09/23/18 at 08:50; Stop 09/23/18 at 14:49; Status DC Sodium Chloride 1,000 ml @ 400 mls/hr Q2H30M PRN IV PATENCY; Start 09/23/18 at 08:50; Stop 09/23/18 at 20:49; Status DC Info (PHARMACY MONITORING -- do not chart) 1 each PRN DAILY PRN MC SEE COMMENTS ; Start 09/23/18 at 09:00; Status UNV Info (PHARMACY MONITORING -- do not chart) 1 each PRN DAILY PRN MC SEE COMMENTS ; Start 09/23/18 at 09:00 Diphenhydramine HCl (Benadryl) 50 mg 1X ONCE IM ; Start 09/23/18 at 10:15; Stop 09/23/18 at 10:20; Status DC Dicyclomine HCl (Bentyl) 10 mg PRN QID PRN PO ABDOMINAL PAIN; Start 09/23/18 at 10:30 Hydrocortisone (Cortaid) 1 amnisha BID TP Last administered on 09/24/18at 08:54; Start 09/24/18 at 09:00 Diphenhydramine HCl (Benadryl) 50 mg STK-MED ONCE .ROUTE ; Start 09/23/18 at 10: 00; Stop 09/24/18 at 09:10; Status DC Active Scripts Active Xanax (Alprazolam) 1 Mg Tablet 1 Mg PO PRN Q6HRS PRN Cozaar (Losartan Potassium) 50 Mg Tablet 50 Mg PO DAILY Flomax (Tamsulosin Hcl) 0.4 Mg Cap.er.24h 0.4 Mg PO QHS Reported Xanax (Alprazolam) 1 Mg Tablet 1 Tab PO TID Aspirin 81 Mg Tab.chew 81 Tab PO DAILY Metoprolol Tartrate 100 Mg Tablet 1 Tab PO BID Plavix (Clopidogrel Bisulfate) 75 Mg Tablet 75 PO DAILY Hydralazine Hcl 50 Mg Tablet 50 TID Nephro-Chilo Tablet (Folic Acid/Vitamin B Comp W-C) 0.8 Mg Tablet 1 Tab PO DAILY Paroxetine Hcl 20 Mg Tablet 40 Mg PO DAILY Tums (Calcium Carbonate) 200 Mg Tab.chew 800 Mg PO TIDAC Omeprazole Magnesium 20 Mg Capsule.dr 20 Mg PO DAILY Vitals/I & O Vital Sign - Last 24 Hours 09/23/18 09/23/18 09/23/18 09/23/18 15:00 15:20 19:15 20:00 Temp 97.7 97.7 97.7 97.7 Pulse 100 100 68 64 Resp 18 20 B/P (MAP) 113/67 (82) 113/67 132/65 (87) 119/68 Pulse Ox 97 96 O2 Delivery Nasal Cannula Nasal Cannula O2 Flow Rate 1.0 3.0 09/23/18 09/23/18 09/23/18 09/23/18 20:00 20:01 20:02 23:09 Pulse 68 B/P (MAP) 132/65 O2 Delivery Nasal Cannula Nasal Cannula Nasal Cannula O2 Flow Rate 2.0 2.0 2.0 09/23/18 09/23/18 09/24/18 09/24/18 23:15 23:39 03:15 05:44 Temp 97.7 97.8 97.7 97.8 Pulse 62 63 Resp 20 20 B/P (MAP) 117/64 (81) 123/60 (81) Pulse Ox 97 97 O2 Delivery Nasal Cannula Nasal Cannula Nasal Cannula O2 Flow Rate 2.0 2.0 2.0 2.0 09/24/18 09/24/18 09/24/18 09/24/18 06:14 07:00 08:00 08:47 Temp 96.6 96.6 Pulse 59 59 Resp 20 B/P (MAP) 131/69 (89) 131/69 Pulse Ox 95 O2 Delivery Room Air Room Air Room Air 09/24/18 09/24/18 09/24/18 08:47 08:48 08:54 Pulse 59 59 B/P (MAP) 131/69 131/69 O2 Delivery Room Air Intake and Output 09/23/18 09/23/18 09/24/18 15:00 23:00 07:00 Intake Total 50 ml 200 ml 200 ml Balance 50 ml 200 ml 200 ml TEAGAN FERRARI MD Sep 24, 2018 10:56
[2018-09-24 11:00] VITALS: BP 101/79
--- NOTE | 2018-09-24 12:38 | PDOC ---
Subjective: Subjective: Feeling better, no GI complaints - denies n/v, abd pain, and diarrhea. Breathing better. Objective: Objective: RN indicates possible DC today. Vital Signs: Vital Signs Date Time Temp Pulse Resp B/P (MAP) Pulse Ox O2 Delivery O2 Flow Rate FiO2 09/24/18 11:00 97.7 52 16 101/79 (86) 99 Nasal Cannula 2.0 97.7 Labs: Laboratory Tests Test 09/23/18 16:45 09/24/18 07:30 09/24/18 07:46 09/24/18 11:22 Glucose (Fingerstick) 128 mg/dL 145 mg/dL 107 mg/dL Hemoglobin 13.3 g/dL Sodium Level 139 mmol/L Potassium Level 4.7 mmol/L Chloride Level 97 mmol/L Carbon Dioxide Level 32 mmol/L Anion Gap 10 Blood Urea Nitrogen 44 mg/dL Creatinine 9.3 mg/dL Estimated GFR (Cockcroft-Gault) 5.8 Glucose Level 118 mg/dL Calcium Level 9.0 mg/dL Phosphorus Level 7.0 mg/dL Magnesium Level 2.3 mg/dL Albumin 3.5 g/dL Imaging: CXR 09/23 IMPRESSION: 1. Mild central vascular congestion and small bilateral pleural effusions 2. Decreased prominence of right lower lobe opacity in the interim, as described. Echo <Conclusion> There is severe concentric left ventricular hypertrophy. The LV systolic function is moderately to severely impaired. The Ejection Fraction is 30%. Transmitral Doppler flow pattern is Grade IV-fixed restrictive diastolic dysfunction. RV Systolic function is mildly reduced. The left atrium is borderline dilated. The right atrium size is normal. The aortic valve is trileaflet. The aortic valve is normal in structure and function. The mitral valve is normal in structure and function. The tricuspid valve is normal in structure and function. Doppler and Color Flow revealed trace pulmonic valvular regurgitation. The aortic root is mildly enlarged. There is no evidence of significant pericardial effusion. This pt has severe systolic and diastolic dysfunction. PE: GEN: NAD LUNGS: NC, clear HEART: RRR ABD: S/ND/NT NEURO/PSYCH: A & O 3, cheerful A/P: CHF, ESRD, anxiety Abd pain, nausea, diarrhea - resolved -- Better GI-amado, continue per cardiology and nephrology. TOMMY SALVADOR Sep 24, 2018 12:38
--- NOTE | 2018-09-24 13:04 | PDOC3 ---
Discharge Summary Date of Admission: Sep 22, 2018 Date of Discharge: Sep 24, 2018 Follow-Up: 1-2 days Admitting Diagnosis comment: DISCHARGE DX History of Present Illness Assessment/Plan Assessment/Plan Chest pain/abdominal pain/acute on chronic diarrhea-off GI medications Anxiety NOS ESRD secondary to polycystic kidney disease on dialysis Anemia of chronic dialysis Leukocytosis Troponin elevation, demand ischemia, in the background of CK D Elevated BNP-chronic Chronic lumbago Insomnia PLAN: HOME TODAY, FEELS BETTER Consult cardiology-known patient Consult GI- COnsult renal re HD home meds including Bentyl, Pepcid, some pain medicines, Imodium, Xanax No PT OT needs-he still drives Discussed with patient and RN Vitals Vitals Vital Signs Date Time Temp Pulse Resp B/P (MAP) Pulse Ox O2 Delivery O2 Flow Rate FiO2 09/24/18 08:54 Room Air 09/24/18 08:48 59 131/69 09/24/18 07:00 96.6 20 95 96.6 09/24/18 05:44 2.0 Physical Exam General: Alert, Oriented X3, Cooperative, No acute distress Heart: Regular rate, Normal S1, Normal S2 Lungs: Clear, Crackles Abdomen: Soft, Extremities: No clubbing, No cyanosis, No edema, Normal pulses, No tenderness/ swelling Skin: No rashes, No breakdown, No significant lesion Labs LABS Echo <Conclusion> There is severe concentric left ventricular hypertrophy. The LV systolic function is moderately to severely impaired. The Ejection Fraction is 30%. Transmitral Doppler flow pattern is Grade IV-fixed restrictive diastolic dysfunction. RV Systolic function is mildly reduced. The left atrium is borderline dilated. The right atrium size is normal. The aortic valve is trileaflet. The aortic valve is normal in structure and function. The mitral valve is normal in structure and function. The tricuspid valve is normal in structure and function. Doppler and Color Flow revealed trace pulmonic valvular regurgitation. The aortic root is mildly enlarged. There is no evidence of significant pericardial effusion. This pt has severe systolic and diastolic dysfunction. Brief Hospital Course Mr. Long is a 63 old [sex] who presented with [ ] CONDITION AT DISCHARGE: Improved Discharge Medications Current Medications Ondansetron HCl (Zofran) 4 mg PRN Q6HRS PRN IV NAUSEA/VOMITING 1st Choice; Start 09/22/18 at 16:00 Prochlorperazine Edisylate (Compazine) 10 mg PRN Q6HRS PRN IV NAUSEA/VOMITING 2nd Choice; Start 09/22/18 at 16:00 Calcium Carbonate/ Glycine (Tums) 500 mg PRN Q3HRS PRN PO UPSET STOMACH; Start 09/22/18 at 16:00 Oxycodone HCl (Roxicodone) 5 mg PRN Q3HRS PRN PO BREAKTHROUGH PAIN; Start 09/22 at 16:00 Morphine Sulfate (Morphine Sulfate) 2 mg PRN Q2HR PRN IV PAIN Last administered on 09/24/18at 08:54; Start 09/22/18 at 16:00 Acetaminophen (Tylenol) 650 mg PRN Q6HRS PRN PO Headaches, Temp > 101.5F; Start 09/22/18 at 16:00 Ibuprofen (Motrin) 400 mg PRN Q6HRS PRN PO MILD PAIN; Start 09/22/18 at 16:00; Stop 09/22/18 at 16:15; Status DC Labetalol HCl (Normodyne Iv Push) 20 mg PRN Q2HR PRN IVP HYPERTENSION, SEE COMMENTS; Start 09/22/18 at 16:00 Alprazolam (Xanax) 1 mg PRN Q6HRS PRN PO ANXIETY / AGITATION Last administered on 09/24/18at 04:17; Start 09/22/18 at 16:00 Alprazolam (Xanax) 1 mg TID PO Last administered on 09/24/18at 08:46; Start 09/22/18 at 16:30 Aspirin (Children'S Aspirin) 81 mg DAILYWBKFT PO Last administered on at 08:46; Start 09/23/18 at 08:00 Calcium Carbonate/ Glycine (Tums) 1,000 mg TIDAC PO Last administered on at 12:41; Start 09/22/18 at 16:30 Clopidogrel Bisulfate (Plavix) 75 mg DAILY PO Last administered on 09/24/18at 08 :45; Start 09/23/18 at 09:00 Vitamin B Complex/ Vitamin C (Frances-Chilo) 1 tab DAILY PO Last administered on at 08:45; Start 09/23/18 at 09:00 Losartan Potassium (Cozaar) 50 mg DAILY PO Last administered on 09/24/18 08:47 ; Start 09/23/18 at 09:00 Tamsulosin HCl (Flomax) 0.4 mg QHS PO Last administered on 09/23/18at 20:00; Start 09/22/18 at 21:00 Hydralazine HCl (Apresoline) 50 mg TID PO Last administered on 09/24/18 08:48 ; Start 09/22/18 at 16:30 Metoprolol Tartrate (Lopressor) 100 mg BID PO Last administered on 09/24/18 08 :47; Start 09/22/18 at 21:00 Pantoprazole Sodium (Protonix) 40 mg DAILYAC PO Last administered on 09/24/18 08:48; Start 09/23/18 at 07:30 Paroxetine HCl (Paxil) 40 mg DAILY PO Last administered on 09/24/18at 08:47; Start 09/23/18 at 09:00 Diphenhydramine HCl (Benadryl) 25 mg PRN QHS PRN PO INSOMNIA; Start 09/22/18 at 16:00 Loperamide HCl (Imodium) 2 mg PRN Q15MIN PRN PO DIARRHEA; Start 09/22/18 at 16: 00 Famotidine (Pepcid) 20 mg Q48H PO Last administered on 09/22/18at 20:17; Start 09/22/18 at 21:00; Stop 09/23/18 at 10:27; Status DC Dicyclomine HCl (Bentyl) 10 mg TID PO Last administered on 09/24/18at 08:48; Start 09/22/18 at 21:00 Magnesium Sulfate 50 ml @ 25 mls/hr PRN DAILY PRN IV for Mag < 1.7 on am labs; Start 09/23/18 at 08:45 Sodium Chloride 1,000 ml @ 1,000 mls/hr Q1H PRN IV hypotension; Start 09/23/18 at 08:50; Stop 09/23/18 at 14:49; Status DC Sodium Chloride 1,000 ml @ 400 mls/hr Q2H30M PRN IV PATENCY; Start 09/23/18 at 08:50; Stop 09/23/18 at 20:49; Status DC Info (PHARMACY MONITORING -- do not chart) 1 each PRN DAILY PRN MC SEE COMMENTS ; Start 09/23/18 at 09:00; Status UNV Info (PHARMACY MONITORING -- do not chart) 1 each PRN DAILY PRN MC SEE COMMENTS ; Start 09/23/18 at 09:00 Diphenhydramine HCl (Benadryl) 50 mg 1X ONCE IM ; Start 09/23/18 at 10:15; Stop 09/23/18 at 10:20; Status DC Dicyclomine HCl (Bentyl) 10 mg PRN QID PRN PO ABDOMINAL PAIN; Start 09/23/18 at 10:30 Hydrocortisone (Cortaid) 1 manisha BID TP Last administered on 09/24/18at 08:54; Start 09/24/18 at 09:00 Diphenhydramine HCl (Benadryl) 50 mg STK-MED ONCE .ROUTE ; Start 09/23/18 at 10: 00; Stop 09/24/18 at 09:10; Status DC Active Scripts Active Xanax (Alprazolam) 1 Mg Tablet 1 Mg PO PRN Q6HRS PRN Cozaar (Losartan Potassium) 50 Mg Tablet 50 Mg PO DAILY Flomax (Tamsulosin Hcl) 0.4 Mg Cap.er.24h 0.4 Mg PO QHS Reported Xanax (Alprazolam) 1 Mg Tablet 1 Tab PO TID Aspirin 81 Mg Tab.chew 81 Tab PO DAILY Metoprolol Tartrate 100 Mg Tablet 1 Tab PO BID Plavix (Clopidogrel Bisulfate) 75 Mg Tablet 75 PO DAILY Hydralazine Hcl 50 Mg Tablet 50 TID Nephro-Chilo Tablet (Folic Acid/Vitamin B Comp W-C) 0.8 Mg Tablet 1 Tab PO DAILY Paroxetine Hcl 20 Mg Tablet 40 Mg PO DAILY Tums (Calcium Carbonate) 200 Mg Tab.chew 800 Mg PO TIDAC Omeprazole Magnesium 20 Mg Capsule.dr 20 Mg PO DAILY Vital Signs Vital Signs Date Time Temp Pulse Resp B/P (MAP) Pulse Ox O2 Delivery O2 Flow Rate FiO2 09/24/18 11:00 97.7 52 16 101/79 (86) 99 Nasal Cannula 2.0 97.7 Labs Laboratory Tests Test 09/22/18 20:30 09/23/18 05:00 09/23/18 07:41 09/23/18 09:50 Glucose (Fingerstick) 108 mg/dL (70-99) 88 mg/dL (70-99) White Blood Count 10.9 x10^3/uL (4.0-11.0) Red Blood Count 3.99 x10^6/uL (4.30-5.70) Hemoglobin 12.8 g/dL (13.0-17.5) Hematocrit 37.8 % (39.0-53.0) Mean Corpuscular Volume 95 fL (79-100) Mean Corpuscular Hemoglobin 32 pg (25-35) Mean Corpuscular Hemoglobin Concent 34 g/dL (31-37) Red Cell Distribution Width 13.8 % (11.5-14.5) Platelet Count 185 x10^3/uL (140-400) Neutrophils (%) (Auto) 84 % (31-73) Lymphocytes (%) (Auto) 5 % (24-48) Monocytes (%) (Auto) 9 % (0-9) Eosinophils (%) (Auto) 2 % (0-3) Basophils (%) (Auto) 1 % (0-3) Neutrophils # (Auto) 9.2 x10^3uL (1.8-7.7) Lymphocytes # (Auto) 0.5 x10^3/uL (1.0-4.8) Monocytes # (Auto) 1.0 x10^3/uL (0.0-1.1) Eosinophils # (Auto) 0.2 x10^3/uL (0.0-0.7) Basophils # (Auto) 0.1 x10^3/uL (0.0-0.2) Segmented Neutrophils % 88 % (35-66) Lymphocytes % 4 % (24-48) Monocytes % 7 % (0-10) Eosinophils % 1 % (0-5) Platelet Estimate Adequate (ADEQUATE) Large Platelets Occ Sodium Level 140 mmol/L (136-145) Potassium Level 6.1 mmol/L (3.5-5.1) 5.2 mmol/L (3.5-5.1) Chloride Level 100 mmol/L (98-107) Carbon Dioxide Level 28 mmol/L (21-32) Anion Gap 12 (6-14) Blood Urea Nitrogen 67 mg/dL (8-26) Creatinine 12.0 mg/dL (0.7-1.3) Estimated GFR (Cockcroft-Gault) 4.3 Glucose Level 99 mg/dL (70-99) Calcium Level 8.9 mg/dL (8.5-10.1) Test 09/23/18 16:45 09/24/18 07:30 09/24/18 07:46 09/24/18 11:22 Glucose (Fingerstick) 128 mg/dL (70-99) 145 mg/dL (70-99) 107 mg/dL (70-99) Hemoglobin 13.3 g/dL (13.0-17.5) Sodium Level 139 mmol/L (136-145) Potassium Level 4.7 mmol/L (3.5-5.1) Chloride Level 97 mmol/L (98-107) Carbon Dioxide Level 32 mmol/L (21-32) Anion Gap 10 (6-14) Blood Urea Nitrogen 44 mg/dL (8-26) Creatinine 9.3 mg/dL (0.7-1.3) Estimated GFR (Cockcroft-Gault) 5.8 Glucose Level 118 mg/dL (70-99) Calcium Level 9.0 mg/dL (8.5-10.1) Phosphorus Level 7.0 mg/dL (2.6-4.7) Magnesium Level 2.3 mg/dL (1.8-2.4) Albumin 3.5 g/dL (3.4-5.0) Laboratory Tests Test 09/23/18 16:45 09/24/18 07:30 09/24/18 07:46 09/24/18 11:22 Glucose (Fingerstick) 128 mg/dL (70-99) 145 mg/dL (70-99) 107 mg/dL (70-99) Hemoglobin 13.3 g/dL (13.0-17.5) Sodium Level 139 mmol/L (136-145) Potassium Level 4.7 mmol/L (3.5-5.1) Chloride Level 97 mmol/L (98-107) Carbon Dioxide Level 32 mmol/L (21-32) Anion Gap 10 (6-14) Blood Urea Nitrogen 44 mg/dL (8-26) Creatinine 9.3 mg/dL (0.7-1.3) Estimated GFR (Cockcroft-Gault) 5.8 Glucose Level 118 mg/dL (70-99) Calcium Level 9.0 mg/dL (8.5-10.1) Phosphorus Level 7.0 mg/dL (2.6-4.7) Magnesium Level 2.3 mg/dL (1.8-2.4) Albumin 3.5 g/dL (3.4-5.0) Allergies Allergies Coded Allergies Type Severity Reaction Last Updated Verified aspirin Allergy Intermediate 06/10/18 Yes Disposition/Orders: D/C to Home Patient Instructions D/C PLANNING 31 MIN TEAGAN FERRARI MD Sep 24, 2018 13:04
--- NOTE | 2018-09-24 13:05 | DISCH ---
DISCHARGE INSTRUCTIONS Condition on Discharge Condition on Discharge: Stable Activity After Discharge Activity Instructions for Disc: Activity as tolerated Bathing Instructions: Shower-keep dressing dry Lifting Instructions after Dis: No heavy lifting Exercise Instruction after Dis: Progress as tolerated Driving Instructions after Dis: Do not drive today Weight Bearing Status after Di: As tolerated Diet after Discharge Diet after Discharge: Renal Dialysis, Regular Diet Texture: Regular Liquid Texture: Thin Liquid Swallowing Supervision: None needed Wound Incision Care Wound/Incision Care: No wound care needed Wound Care Equipment: Dressings Checks after Discharge Checks after discharge: Check blood press - daily Contacting the DR. after DC Call your doctor for: If your condition worsens Treatment/Equipment after DC Adaptive Equipment Issued: None TEAGAN FERRARI MD Sep 24, 2018 13:05
--- NOTE | 2018-09-24 14:50 | PDOC ---
SUBJECTIVE ROS No complaints wants to go home OBJECTIVE Vital Signs Vital Signs Date Time Temp Pulse Resp B/P (MAP) Pulse Ox O2 Delivery O2 Flow Rate FiO2 09/24/18 11:00 97.7 52 16 101/79 (86) 99 Nasal Cannula 2.0 97.7 I & 0 Intake and Output 09/24/18 07:00 Intake Total 450 ml Balance 450 ml Intake Oral 450 ml PHYSICAL EXAM Physical Exam GEN: Awake, Oriented x [], In [] distress EYES: Vision Unchanged, Conjunctiva Normal EN: No EN Drainage, Mucous Membranes [] NECK: [] JVD, [] JVP, Supple, [] Thyromegaly CVS: S1S2, [] Murmur, No Gallop, No Rub,[] Edema RESP: [] Rales, [] Rhonchi,[] Acc. Muscle Use GI: BS + ve, NO Bruit, Non Tender, Non Distended : [] CVA tenderness, [] Suprapubic Tenderness DIAGNOSIS/ASSESSMENT Assessment & Plan ESRD:TTS at [facility] No indication for HD today If Dced will go to his OP unit Hyperkalemia : Normal K today Anemia: Current hemoglobin above 11 hence no JOSÉ MIGUEL indicated HTN:Current BP meds reviewed. See orders for changes. shortness of breath: Chest x-ray with pulmonary edema as per ER provider at [facility], Multiple ER visits and Hospitalization for same compliant. Non compliant with Low salt/Na diet and fluid restriction DW Plan with Pt, he wants to go home. Can be dced from Renal standpoint Dialysis Tomorrow at his Unit DW RN at bedside COMMENT/RELEVANT DATA Meds Current Medications Medications (Trade) Dose Ordered Sig/Cirilo Start Time Stop Time Status Last Admin Dose Admin Acetaminophen (Tylenol) 650 mg PRN Q6HRS PRN 09/22/18 16:00 09/24/18 14:04 DC Alprazolam (Xanax) 1 mg TID 09/22/18 16:30 09/24/18 14:04 DC 09/24/18 08:46 1 MG Aspirin (Children'S Aspirin) 81 mg DAILYWBKFT 09/23/18 08:00 09/24/18 14:04 DC 09/24/18 08:46 81 MG Calcium Carbonate/ Glycine (Tums) 1,000 mg TIDAC 09/22/18 16:30 09/24/18 14:04 DC 09/24/18 12:41 1,000 MG Clopidogrel Bisulfate (Plavix) 75 mg DAILY 09/23/18 09:00 09/24/18 14:04 DC 09/24/18 08:45 75 MG Dicyclomine HCl (Bentyl) 10 mg PRN QID PRN 09/23/18 10:30 09/24/18 14:04 DC Diphenhydramine HCl (Benadryl) 50 mg STK-MED ONCE 09/23/18 10:00 09/24/18 09:10 DC Famotidine (Pepcid) 20 mg Q48H 09/22/18 21:00 09/23/18 10:27 DC 09/22/18 20:17 20 MG Hydralazine HCl (Apresoline) 50 mg TID 09/22/18 16:30 09/24/18 14:04 DC 09/24/18 08:48 50 MG Hydrocortisone (Cortaid) 1 manisha BID 09/24/18 09:00 09/24/18 14:04 DC 09/24/18 08:54 1 MANISHA Ibuprofen (Motrin) 400 mg PRN Q6HRS PRN 09/22/18 16:00 09/22/18 16:15 DC Info (PHARMACY MONITORING -- do not chart) 1 each PRN DAILY PRN 09/23/18 09:00 09/24/18 14:04 DC Labetalol HCl (Normodyne Iv Push) 20 mg PRN Q2HR PRN 09/22/18 16:00 09/24/18 14:04 DC Loperamide HCl (Imodium) 2 mg PRN Q15MIN PRN 09/22/18 16:00 09/24/18 14:04 DC Losartan Potassium (Cozaar) 50 mg DAILY 09/23/18 09:00 09/24/18 14:04 DC 09/24/18 08:47 50 MG Magnesium Sulfate 50 ml @ 25 mls/hr PRN DAILY PRN 09/23/18 08:45 09/24/18 14:04 DC Metoprolol Tartrate (Lopressor) 100 mg BID 09/22/18 21:00 09/24/18 14:04 DC 09/24/18 08:47 100 MG Morphine Sulfate (Morphine Sulfate) 2 mg PRN Q2HR PRN 09/22/18 16:00 09/24/18 14:04 DC 09/24/18 08:54 2 MG Ondansetron HCl (Zofran) 4 mg PRN Q6HRS PRN 09/22/18 16:00 09/24/18 14:04 DC Oxycodone HCl (Roxicodone) 5 mg PRN Q3HRS PRN 09/22/18 16:00 09/24/18 14:04 DC Pantoprazole Sodium (Protonix) 40 mg DAILYAC 09/23/18 07:30 09/24/18 14:04 DC 09/24/18 08:48 40 MG Paroxetine HCl (Paxil) 40 mg DAILY 09/23/18 09:00 09/24/18 14:04 DC 09/24/18 08:47 40 MG Prochlorperazine Edisylate (Compazine) 10 mg PRN Q6HRS PRN 09/22/18 16:00 09/24/18 14:04 DC Sodium Chloride 1,000 ml @ 400 mls/hr Q2H30M PRN 09/23/18 08:50 09/23/18 20:49 DC Tamsulosin HCl (Flomax) 0.4 mg QHS 09/22/18 21:00 09/24/18 14:04 DC 09/23/18 20:00 0.4 MG Vitamin B Complex/ Vitamin C (Frances-Chilo) 1 tab DAILY 09/23/18 09:00 09/24/18 14:04 DC 09/24/18 08:45 1 TAB Lab Laboratory Tests Test 09/23/18 16:45 09/24/18 07:30 09/24/18 07:46 09/24/18 11:22 Glucose (Fingerstick) 128 mg/dL (70-99) 145 mg/dL (70-99) 107 mg/dL (70-99) Hemoglobin 13.3 g/dL (13.0-17.5) Sodium Level 139 mmol/L (136-145) Potassium Level 4.7 mmol/L (3.5-5.1) Chloride Level 97 mmol/L (98-107) Carbon Dioxide Level 32 mmol/L (21-32) Anion Gap 10 (6-14) Blood Urea Nitrogen 44 mg/dL (8-26) Creatinine 9.3 mg/dL (0.7-1.3) Estimated GFR (Cockcroft-Gault) 5.8 Glucose Level 118 mg/dL (70-99) Calcium Level 9.0 mg/dL (8.5-10.1) Phosphorus Level 7.0 mg/dL (2.6-4.7) Magnesium Level 2.3 mg/dL (1.8-2.4) Albumin 3.5 g/dL (3.4-5.0) Results All relevant outside records, renal labs, imaging studies, telemetry/EKG's were reviewed. PLACIDO MENDOZA MD Sep 24, 2018 14:49
--- NOTE | 2018-09-24 15:49 | PDOC ---
PROGRESS NOTES Subjective Subjective Patient feeling well this am without complaints and would like to go home. Objective Objective Vital Signs Date Time Temp Pulse Resp B/P (MAP) Pulse Ox O2 Delivery O2 Flow Rate FiO2 09/24/18 11:00 97.7 52 16 101/79 (86) 99 Nasal Cannula 2.0 97.7 Intake and Output 09/24/18 07:00 Intake Total 450 ml Balance 450 ml Intake Oral 450 ml Physical Exam Physical Exam No significant change on cardiac exam. Plan Plan of Care Patient received dialysis yesterday and is feeling better today Ok to dc from cardiac standpoint Comment Review of Relevant I have reviewed the following items dionte (where applicable) has been applied. Labs Laboratory Tests Test 09/22/18 20:30 09/23/18 05:00 09/23/18 07:41 09/23/18 09:50 Glucose (Fingerstick) 108 mg/dL (70-99) 88 mg/dL (70-99) White Blood Count 10.9 x10^3/uL (4.0-11.0) Red Blood Count 3.99 x10^6/uL (4.30-5.70) Hemoglobin 12.8 g/dL (13.0-17.5) Hematocrit 37.8 % (39.0-53.0) Mean Corpuscular Volume 95 fL (79-100) Mean Corpuscular Hemoglobin 32 pg (25-35) Mean Corpuscular Hemoglobin Concent 34 g/dL (31-37) Red Cell Distribution Width 13.8 % (11.5-14.5) Platelet Count 185 x10^3/uL (140-400) Neutrophils (%) (Auto) 84 % (31-73) Lymphocytes (%) (Auto) 5 % (24-48) Monocytes (%) (Auto) 9 % (0-9) Eosinophils (%) (Auto) 2 % (0-3) Basophils (%) (Auto) 1 % (0-3) Neutrophils # (Auto) 9.2 x10^3uL (1.8-7.7) Lymphocytes # (Auto) 0.5 x10^3/uL (1.0-4.8) Monocytes # (Auto) 1.0 x10^3/uL (0.0-1.1) Eosinophils # (Auto) 0.2 x10^3/uL (0.0-0.7) Basophils # (Auto) 0.1 x10^3/uL (0.0-0.2) Segmented Neutrophils % 88 % (35-66) Lymphocytes % 4 % (24-48) Monocytes % 7 % (0-10) Eosinophils % 1 % (0-5) Platelet Estimate Adequate (ADEQUATE) Large Platelets Occ Sodium Level 140 mmol/L (136-145) Potassium Level 6.1 mmol/L (3.5-5.1) 5.2 mmol/L (3.5-5.1) Chloride Level 100 mmol/L (98-107) Carbon Dioxide Level 28 mmol/L (21-32) Anion Gap 12 (6-14) Blood Urea Nitrogen 67 mg/dL (8-26) Creatinine 12.0 mg/dL (0.7-1.3) Estimated GFR (Cockcroft-Gault) 4.3 Glucose Level 99 mg/dL (70-99) Calcium Level 8.9 mg/dL (8.5-10.1) Test 09/23/18 16:45 09/24/18 07:30 09/24/18 07:46 09/24/18 11:22 Glucose (Fingerstick) 128 mg/dL (70-99) 145 mg/dL (70-99) 107 mg/dL (70-99) Hemoglobin 13.3 g/dL (13.0-17.5) Sodium Level 139 mmol/L (136-145) Potassium Level 4.7 mmol/L (3.5-5.1) Chloride Level 97 mmol/L (98-107) Carbon Dioxide Level 32 mmol/L (21-32) Anion Gap 10 (6-14) Blood Urea Nitrogen 44 mg/dL (8-26) Creatinine 9.3 mg/dL (0.7-1.3) Estimated GFR (Cockcroft-Gault) 5.8 Glucose Level 118 mg/dL (70-99) Calcium Level 9.0 mg/dL (8.5-10.1) Phosphorus Level 7.0 mg/dL (2.6-4.7) Magnesium Level 2.3 mg/dL (1.8-2.4) Albumin 3.5 g/dL (3.4-5.0) Laboratory Tests Test 09/23/18 16:45 09/24/18 07:30 09/24/18 07:46 09/24/18 11:22 Glucose (Fingerstick) 128 mg/dL (70-99) 145 mg/dL (70-99) 107 mg/dL (70-99) Hemoglobin 13.3 g/dL (13.0-17.5) Sodium Level 139 mmol/L (136-145) Potassium Level 4.7 mmol/L (3.5-5.1) Chloride Level 97 mmol/L (98-107) Carbon Dioxide Level 32 mmol/L (21-32) Anion Gap 10 (6-14) Blood Urea Nitrogen 44 mg/dL (8-26) Creatinine 9.3 mg/dL (0.7-1.3) Estimated GFR (Cockcroft-Gault) 5.8 Glucose Level 118 mg/dL (70-99) Calcium Level 9.0 mg/dL (8.5-10.1) Phosphorus Level 7.0 mg/dL (2.6-4.7) Magnesium Level 2.3 mg/dL (1.8-2.4) Albumin 3.5 g/dL (3.4-5.0) Medications Current Medications Ondansetron HCl (Zofran) 4 mg PRN Q6HRS PRN IV NAUSEA/VOMITING 1st Choice; Start 09/22/18 at 16:00; Stop 09/24/18 at 14:04; Status DC Prochlorperazine Edisylate (Compazine) 10 mg PRN Q6HRS PRN IV NAUSEA/VOMITING 2nd Choice; Start 09/22/18 at 16:00; Stop 09/24/18 at 14:04; Status DC Calcium Carbonate/ Glycine (Tums) 500 mg PRN Q3HRS PRN PO UPSET STOMACH; Start 09/22/18 at 16:00; Stop 09/24/18 at 14:04; Status DC Oxycodone HCl (Roxicodone) 5 mg PRN Q3HRS PRN PO BREAKTHROUGH PAIN; Start 09/22 at 16:00; Stop 09/24/18 at 14:04; Status DC Morphine Sulfate (Morphine Sulfate) 2 mg PRN Q2HR PRN IV PAIN Last administered on 09/24/18at 08:54; Start 09/22/18 at 16:00; Stop 09/24/18 at 14:04 ; Status DC Acetaminophen (Tylenol) 650 mg PRN Q6HRS PRN PO Headaches, Temp > 101.5F; Start 09/22/18 at 16:00; Stop 09/24/18 at 14:04; Status DC Ibuprofen (Motrin) 400 mg PRN Q6HRS PRN PO MILD PAIN; Start 09/22/18 at 16:00; Stop 09/22/18 at 16:15; Status DC Labetalol HCl (Normodyne Iv Push) 20 mg PRN Q2HR PRN IVP HYPERTENSION, SEE COMMENTS; Start 09/22/18 at 16:00; Stop 09/24/18 at 14:04; Status DC Alprazolam (Xanax) 1 mg PRN Q6HRS PRN PO ANXIETY / AGITATION Last administered on 09/24/18at 04:17; Start 09/22/18 at 16:00; Stop 09/24/18 at 14:04; Status DC Alprazolam (Xanax) 1 mg TID PO Last administered on 09/24/18at 08:46; Start 09/22/18 at 16:30; Stop 09/24/18 at 14:04; Status DC Aspirin (Children'S Aspirin) 81 mg DAILYWBKFT PO Last administered on at 08:46; Start 09/23/18 at 08:00; Stop 09/24/18 at 14:04; Status DC Calcium Carbonate/ Glycine (Tums) 1,000 mg TIDAC PO Last administered on at 12:41; Start 09/22/18 at 16:30; Stop 09/24/18 at 14:04; Status DC Clopidogrel Bisulfate (Plavix) 75 mg DAILY PO Last administered on 09/24/18at 08 :45; Start 09/23/18 at 09:00; Stop 09/24/18 at 14:04; Status DC Vitamin B Complex/ Vitamin C (Frances-Chilo) 1 tab DAILY PO Last administered on at 08:45; Start 09/23/18 at 09:00; Stop 09/24/18 at 14:04; Status DC Losartan Potassium (Cozaar) 50 mg DAILY PO Last administered on 09/24/18at 08:47 ; Start 09/23/18 at 09:00; Stop 09/24/18 at 14:04; Status DC Tamsulosin HCl (Flomax) 0.4 mg QHS PO Last administered on 09/23/18at 20:00; Start 09/22/18 at 21:00; Stop 09/24/18 at 14:04; Status DC Hydralazine HCl (Apresoline) 50 mg TID PO Last administered on 09/24/18at 08:48 ; Start 09/22/18 at 16:30; Stop 09/24/18 at 14:04; Status DC Metoprolol Tartrate (Lopressor) 100 mg BID PO Last administered on 09/24/18at 08 :47; Start 09/22/18 at 21:00; Stop 09/24/18 at 14:04; Status DC Pantoprazole Sodium (Protonix) 40 mg DAILYAC PO Last administered on 09/24/18at 08:48; Start 09/23/18 at 07:30; Stop 09/24/18 at 14:04; Status DC Paroxetine HCl (Paxil) 40 mg DAILY PO Last administered on 09/24/18at 08:47; Start 09/23/18 at 09:00; Stop 09/24/18 at 14:04; Status DC Diphenhydramine HCl (Benadryl) 25 mg PRN QHS PRN PO INSOMNIA; Start 09/22/18 at 16:00; Stop 09/24/18 at 14:04; Status DC Loperamide HCl (Imodium) 2 mg PRN Q15MIN PRN PO DIARRHEA; Start 09/22/18 at 16: 00; Stop 09/24/18 at 14:04; Status DC Famotidine (Pepcid) 20 mg Q48H PO Last administered on 09/22/18at 20:17; Start 09/22/18 at 21:00; Stop 09/23/18 at 10:27; Status DC Dicyclomine HCl (Bentyl) 10 mg TID PO Last administered on 09/24/18at 08:48; Start 09/22/18 at 21:00; Stop 09/24/18 at 14:04; Status DC Magnesium Sulfate 50 ml @ 25 mls/hr PRN DAILY PRN IV for Mag < 1.7 on am labs; Start 09/23/18 at 08:45; Stop 09/24/18 at 14:04; Status DC Sodium Chloride 1,000 ml @ 1,000 mls/hr Q1H PRN IV hypotension; Start 09/23/18 at 08:50; Stop 09/23/18 at 14:49; Status DC Sodium Chloride 1,000 ml @ 400 mls/hr Q2H30M PRN IV PATENCY; Start 09/23/18 at 08:50; Stop 09/23/18 at 20:49; Status DC Info (PHARMACY MONITORING -- do not chart) 1 each PRN DAILY PRN MC SEE COMMENTS ; Start 09/23/18 at 09:00; Status UNV Info (PHARMACY MONITORING -- do not chart) 1 each PRN DAILY PRN MC SEE COMMENTS ; Start 09/23/18 at 09:00; Stop 09/24/18 at 14:04; Status DC Diphenhydramine HCl (Benadryl) 50 mg 1X ONCE IM ; Start 09/23/18 at 10:15; Stop 09/23/18 at 10:20; Status DC Dicyclomine HCl (Bentyl) 10 mg PRN QID PRN PO ABDOMINAL PAIN; Start 09/23/18 at 10:30; Stop 09/24/18 at 14:04; Status DC Hydrocortisone (Cortaid) 1 manisha BID TP Last administered on 09/24/18at 08:54; Start 09/24/18 at 09:00; Stop 09/24/18 at 14:04; Status DC Diphenhydramine HCl (Benadryl) 50 mg STK-MED ONCE .ROUTE ; Start 09/23/18 at 10: 00; Stop 09/24/18 at 09:10; Status DC Active Scripts Active Cozaar (Losartan Potassium) 50 Mg Tablet 50 Mg PO DAILY Flomax (Tamsulosin Hcl) 0.4 Mg Cap.er.24h 0.4 Mg PO QHS Reported Xanax (Alprazolam) 1 Mg Tablet 1 Tab PO TID Aspirin 81 Mg Tab.chew 81 Tab PO DAILY Metoprolol Tartrate 100 Mg Tablet 1 Tab PO BID Plavix (Clopidogrel Bisulfate) 75 Mg Tablet 75 PO DAILY Hydralazine Hcl 50 Mg Tablet 50 TID Nephro-Chilo Tablet (Folic Acid/Vitamin B Comp W-C) 0.8 Mg Tablet 1 Tab PO DAILY Paroxetine Hcl 20 Mg Tablet 40 Mg PO DAILY Tums (Calcium Carbonate) 200 Mg Tab.chew 800 Mg PO TIDAC Omeprazole Magnesium 20 Mg Capsule.dr 20 Mg PO DAILY Vitals/I & O Vital Sign - Last 24 Hours 09/23/18 09/23/18 09/23/18 09/23/18 19:15 20:00 20:00 20:01 Temp 97.7 97.7 Pulse 68 64 68 Resp 20 B/P (MAP) 132/65 (87) 119/68 132/65 Pulse Ox 96 O2 Delivery Nasal Cannula Nasal Cannula O2 Flow Rate 3.0 2.0 09/23/18 09/23/18 09/23/18 09/23/18 20:02 23:09 23:15 23:39 Temp 97.7 97.7 Pulse 62 Resp 20 B/P (MAP) 117/64 (81) Pulse Ox 97 O2 Delivery Nasal Cannula Nasal Cannula Nasal Cannula O2 Flow Rate 2.0 2.0 2.0 2.0 09/24/18 09/24/18 09/24/18 09/24/18 03:15 05:44 06:14 07:00 Temp 97.8 96.6 97.8 96.6 Pulse 63 59 Resp 20 20 B/P (MAP) 123/60 (81) 131/69 (89) Pulse Ox 97 95 O2 Delivery Nasal Cannula Nasal Cannula Room Air Room Air O2 Flow Rate 2.0 2.0 09/24/18 09/24/18 09/24/18 09/24/18 08:00 08:47 08:47 08:48 Pulse 59 59 59 B/P (MAP) 131/69 131/69 131/69 O2 Delivery Room Air 09/24/18 09/24/18 08:54 11:00 Temp 97.7 97.7 Pulse 52 Resp 16 B/P (MAP) 101/79 (86) Pulse Ox 99 O2 Delivery Room Air Nasal Cannula O2 Flow Rate 2.0 Intake and Output 09/23/18 09/23/18 09/24/18 15:00 23:00 07:00 Intake Total 50 ml 200 ml 200 ml Balance 50 ml 200 ml 200 ml ESTEFANÍA MANZO MD Sep 24, 2018 15:49
== END 2018-09-24 12:18 | disposition home or self-care (01) | DRG 291 ==
LOC: 6 SOUTH 15:31
PROVIDERS: ADMIT Internal Medicine; ATTEND Internal Medicine
PROC: 5A1D70Z Performance of Urinary Filtration, Intermittent, Less than 6 Hours Per Day (ICD-10-PCS; principal; 2018-09-23)
DX: I13.2 Hypertensive heart and chronic kidney disease with heart failure and with stage 5 chronic kidney disease, or end stage renal disease (principal); N18.6 End stage renal disease; I50.33 Acute on chronic diastolic (congestive) heart failure; I24.8 Other forms of acute ischemic heart disease; Q61.3 Polycystic kidney, unspecified; K52.9 Noninfective gastroenteritis and colitis, unspecified; I50.9 Heart failure, unspecified; I25.10 Atherosclerotic heart disease of native coronary artery without angina pectoris; K21.9 Gastro-esophageal reflux disease without esophagitis; E11.22 Type 2 diabetes mellitus with diabetic chronic kidney disease; E11.51 Type 2 diabetes mellitus with diabetic peripheral angiopathy without gangrene; E21.3 Hyperparathyroidism, unspecified; F41.9 Anxiety disorder, unspecified; G89.29 Other chronic pain; M54.5 Low back pain; G47.00 Insomnia, unspecified; F32.9 Major depressive disorder, single episode, unspecified; E87.5 Hyperkalemia; E78.5 Hyperlipidemia, unspecified; G47.33 Obstructive sleep apnea (adult) (pediatric); E11.42 Type 2 diabetes mellitus with diabetic polyneuropathy; I48.91 Unspecified atrial fibrillation; N40.0 Benign prostatic hyperplasia without lower urinary tract symptoms; J44.9 Chronic obstructive pulmonary disease, unspecified; D64.9 Anemia, unspecified; Z79.02 Long term (current) use of antithrombotics/antiplatelets; Z82.49 Family history of ischemic heart disease and other diseases of the circulatory system; Z99.2 Dependence on renal dialysis; Z90.49 Acquired absence of other specified parts of digestive tract; Z95.1 Presence of aortocoronary bypass graft; Z83.3 Family history of diabetes mellitus; Z82.3 Family history of stroke; Z80.9 Family history of malignant neoplasm, unspecified; Z84.1 Family history of disorders of kidney and ureter; Z91.19 Patient's noncompliance with other medical treatment and regimen; Z85.51 Personal history of malignant neoplasm of bladder; Z95.820 Peripheral vascular angioplasty status with implants and grafts; Z99.81 Dependence on supplemental oxygen
CPT/HCPCS: 36415; 71046; 80048; 80069; 82962; 83735; 84132; 85007; 85018; 85025; 93005; 93306; J1200; J2270

== ENCOUNTER 2018-09-28 23:58 | Emergency (ER) | payer MEDICARE ==
[~2018-09-28] VITALS: Ht 170.2 cm; Wt 70.3 kg
--- NOTE | 2018-09-29 00:28 | PHYS DOC ---
Past Medical History Past Medical History: Cancer, Hypertension, Pancreatitis, Renal Disease, Other Additional Past Medical Histor: BLADDER CANCER, LUNG CANCER Past Surgical History: Appendectomy, Coronary Bypass Surgery Additional Past Surgical Histo: Dialysis shunt L) arm. cardiac stent, lens implants Alcohol Use: Occasionally Drug Use: None Adult General Chief Complaint Chief Complaint: NAUSEA/VOMITING/DIARRHA HPI HPI Patient is a 63 year old [male] who presents with chest and abdominal pain. This is been present all day. Causing patient's some anxiety. Patient does have a history of previous CABG. Also previous cholecystectomy. Notes these had diarrhea during the course of the day. Had similar symptoms when he was hyperkalemic approximately a month ago. Patient does undergo dialysis, with his last dialysis being yesterday. Denies any worsening of the discomfort with ambulation. Patient has taken no medication to help with the pains. He has stopped eating which has improved his diarrhea. No blood in the stool.[] Review of Systems Review of Systems Constitutional: Denies fever or chills [] Eyes: Denies change in visual acuity, redness, or eye pain [] HENT: Denies nasal congestion or sore throat [] Respiratory: Denies cough or shortness of breath [] Cardiovascular: No additional information not addressed in HPI [] GI: See history of present illness[] : Denies dysuria or hematuria [] Musculoskeletal: Denies back pain or joint pain [] Integument: Denies rash or skin lesions [] Neurologic: Denies headache, focal weakness or sensory changes [] Endocrine: Denies polyuria or polydipsia [] All other systems were reviewed and found to be within normal limits, except as documented in this note. Current Medications Current Medications Current Medications Medications (Trade) Dose Ordered Sig/Cirilo Start Time Stop Time Status Last Admin Dose Admin Clonazepam (KlonoPIN) 0.5 mg ONCE ONCE 09/29/18 04:15 09/29/18 04:16 DC 09/29/18 03:59 0.5 MG Clonidine HCl (Catapres) 0.2 mg 1X ONCE 09/29/18 04:15 09/29/18 04:16 DC 09/29/18 03:59 0.2 MG Heparin Sodium (Porcine) (Hep Lock Adult) 500 unit STK-MED ONCE 09/29/18 03:54 09/29/18 03:55 DC Hyoscyamine (Anaspaz) 0.125 mg ONCE ONCE 09/29/18 01:00 09/29/18 01:01 DC 09/29/18 01:39 0.125 MG Metoclopramide HCl (Reglan Vial) 5 mg 1X ONCE 09/29/18 01:00 09/29/18 01:01 DC 09/29/18 01:39 5 MG Allergies Allergies Allergies Coded Allergies Type Severity Reaction Last Updated Verified aspirin Allergy Intermediate 06/10/18 Yes Physical Exam Physical Exam Constitutional: Well developed, well nourished, no acute distress, non-toxic appearance. [] HENT: Normocephalic, atraumatic, bilateral external ears normal, oropharynx moist, no oral exudates, nose normal. [] Eyes: PERRLA, EOMI, conjunctiva normal, no discharge. [] Neck: Normal range of motion, no tenderness, supple, no stridor. [] Cardiovascular:Heart rate regular rhythm, no murmur [] Lungs & Thorax: Bilateral breath sounds clear to auscultation [] Abdomen: Bowel sounds normal, soft, no tenderness, no masses, no pulsatile masses. [] Skin: Warm, dry, no erythema, no rash. [] Back: No tenderness, no CVA tenderness. [] Extremities: No tenderness, no cyanosis, no clubbing, ROM intact, no edema. [] Neurologic: Alert and oriented X 3, normal motor function, normal sensory function, no focal deficits noted. [] Psychologic: Affect normal, judgement normal, mood normal. [] Current Patient Data Vital Signs Vital Signs Date Time Temp Pulse Resp B/P (MAP) Pulse Ox O2 Delivery O2 Flow Rate FiO2 09/29/18 04:00 73 220/98 (138) 97 Room Air 09/29/18 03:30 19 09/29/18 00:00 97.5 97.5 Lab Values Laboratory Tests Test 09/29/18 01:10 09/29/18 04:01 09/29/18 04:04 White Blood Count 10.4 x10^3/uL (4.0-11.0) Red Blood Count 4.16 x10^6/uL (4.30-5.70) L Hemoglobin 13.3 g/dL (13.0-17.5) Hematocrit 39.1 % (39.0-53.0) Mean Corpuscular Volume 94 fL (79-100) Mean Corpuscular Hemoglobin 32 pg (25-35) Mean Corpuscular Hemoglobin Concent 34 g/dL (31-37) Red Cell Distribution Width 14.2 % (11.5-14.5) Platelet Count 233 x10^3/uL (140-400) Neutrophils (%) (Auto) 73 % (31-73) Lymphocytes (%) (Auto) 11 % (24-48) L Monocytes (%) (Auto) 11 % (0-9) H Eosinophils (%) (Auto) 3 % (0-3) Basophils (%) (Auto) 1 % (0-3) Neutrophils # (Auto) 7.6 x10^3uL (1.8-7.7) Lymphocytes # (Auto) 1.2 x10^3/uL (1.0-4.8) Monocytes # (Auto) 1.2 x10^3/uL (0.0-1.1) H Eosinophils # (Auto) 0.3 x10^3/uL (0.0-0.7) Basophils # (Auto) 0.1 x10^3/uL (0.0-0.2) Prothrombin Time 12.5 SEC (11.7-14.0) Prothrombin Time INR 1.0 (0.8-1.1) Sodium Level 142 mmol/L (136-145) Potassium Level 4.5 mmol/L (3.5-5.1) Chloride Level 100 mmol/L (98-107) Carbon Dioxide Level 26 mmol/L (21-32) Anion Gap 16 (6-14) H Blood Urea Nitrogen 46 mg/dL (8-26) H Creatinine 9.1 mg/dL (0.7-1.3) H Estimated GFR (Cockcroft-Gault) 5.9 BUN/Creatinine Ratio 5 (6-20) L Glucose Level 101 mg/dL (70-99) H Calcium Level 8.8 mg/dL (8.5-10.1) Total Bilirubin 0.5 mg/dL (0.2-1.0) Aspartate Amino Transferase (AST) 22 U/L (15-37) Alanine Aminotransferase (ALT) 15 U/L (16-63) L Alkaline Phosphatase 67 U/L (46-116) Troponin I Quantitative 0.054 ng/mL (0.000-0.055) 0.060 ng/mL (0.000-0.055) Total Protein 7.8 g/dL (6.4-8.2) Albumin 3.7 g/dL (3.4-5.0) Albumin/Globulin Ratio 0.9 (1.0-1.7) L Lipase 302 U/L (73-393) POC Troponin I 0.00 ng/ml (<0.08) Laboratory Tests 09/29/18 01:10 Laboratory Tests 09/29/18 01:10 EKG EKG EKG shows sinus rhythm, no ST elevation, lateral flipped T waves that were present on previous EKG of 09/23/2018.[] Radiology/Procedures Radiology/Procedures CT scan of the abdomen shows a partially visualized right lung base repeat demonstration of dense masslike opacity identified. Could be infectious or inflammatory in nature follow-up will be needed to ensure that this decreased to ensure that this is not neoplastic in nature. Severe atherosclerosis. Innumerable cystic lesions in bilateral kidneys with higher density lesions as well which could be from complex cystic lesions but solid lesions are also within the differential nonemergent CT, MRI, or ultrasound renal protocol could further evaluate. Chest x-ray shows right lower lobe increased density.[] Course & Med Decision Making Course & Med Decision Making Pertinent Labs and Imaging studies reviewed. (See chart for details) ED course: Patient arrived, was placed in bed, in tolerate exam well. Patient's initial elevated blood pressure improved without intervention to the 160s systolic. Patient was transported to and from CT scan without any complications. On reevaluation patient his blood pressure was noted to be elevated as well as he was more anxious which was potentially contributing to this elevated blood pressure. As the medication was being written for and obtained by the nursing staff, patient came out [facility] threatening to leave and go to . Patient was directed back to his room and offered the medication. Additionally given his cardiac history and additional set of cardiac enzymes were being obtained. 0 4:30 patient again wanted to leave AM. He was warned of the risks to include or permanent disability. He voiced understanding of the risks and was able to state them in his own words. He appears able to make an informed decision. Patient signed ELEELE paperwork. Medical decision making: Given that the patient was recently admitted and discharged within the past week for similar complaints, obtaining repeat cardiac enzymes at this point. There is no evidence of an urgent surgical process such as cholecystitis, appendicitis, nor a pancreatitis present. Patient 's cardiac enzymes are slightly trending up reports and was not available at the time of his decision to leave AMA.[] Dragon Disclaimer Dragon Disclaimer This electronic medical record was generated, in whole or in part, using a voice recognition dictation system. Departure Departure Impression: Primary Impression: Abdominal pain Additional Impressions: End stage renal disease Anxiety Disposition: 07 AGAINST MEDICAL ADVICE Condition: IMPROVED Referrals: RED DOMINGO (PCP) Follow-up in 2 days Problem Qualifiers Primary Impression: Abdominal pain Abdominal location: generalized Qualified Codes: R10.84 - Generalized abdominal pain DOE LUCERO DO Sep 29, 2018 00:28
[2018-09-29] MEDS ORDERED: METOCLOPRAMIDE HCL 10 MG/2 ML VIAL. IV ONE (01:00)
[2018-09-29] MEDS ORDERED: HYOSCYAMINE 0.125 MG TAB.RAPDIS PO ONE (01:00)
[2018-09-29 01:32] LABS: BASO # 0.1 x10^3/uL (0.0-0.2); BASO % 1 % (0-3); EOS # 0.3 x10^3/uL (0.0-0.7); EOS % 3 % (0-3); HEMATOCRIT 39.1 % (39.0-53.0); HEMOGLOBIN 13.3 g/dL (13.0-17.5); LYMPH # 1.2 x10^3/uL (1.0-4.8); LYMPH % 11 % (24-48); MEAN CORPUSCULAR HEMOGLOBIN 32 pg (25-35); MEAN CORPUSCULAR HGB CONC 34 g/dL (31-37); MEAN CORPUSCULAR VOLUME 94 fL (79-100); MONO # 1.2 x10^3/uL (0.0-1.1); MONO % 11 % (0-9); NEUT # 7.6 x10^3uL (1.8-7.7); NEUT % 73 % (31-73); PLATELET COUNT 233 x10^3/uL (140-400); RED BLOOD COUNT 4.16 x10^6/uL (4.30-5.70); RED CELL DISTRIBUTION WIDTH 14.2 % (11.5-14.5); WHITE BLOOD COUNT 10.4 x10^3/uL (4.0-11.0)
[2018-09-29 01:41] LABS: PROTHROMBIN TIME PATIENT 12.5 SEC (11.7-14.0)
--- NOTE | 2018-09-29 01:42 | RAD ---
INDICATION: ABDOMEN PAIN COMPARISON: May 2018 TECHNIQUE: Axial CT images obtained through the abdomen and pelvis without contrast. Limited assessment of solid organ structures and vasculature secondary to lack of intravenous contrast. One or more of the following individualized dose reduction techniques were utilized for this examination: 1. Automated exposure control; 2. Adjustment of the mA and/or kV according to patient size; 3. Use of iterative reconstruction technique. FINDINGS: Partial opacification of masslike opacity right lower lung which measures at least 53 mm. Right greater than left small pleural effusion. Interstitial thickening at right greater than left lung base. Coronary artery calcific atherosclerosis. Severe calcific atherosclerosis throughout the vasculature. Postcholecystectomy changes. No peripancreatic fluid collection. Spleen unremarkable. Innumerable bilateral cystic lesions of the kidneys with some of these appearing higher density. Calcifications at bilateral kidneys. Nodular thickening of left adrenal gland. Urinary bladder is decompressed. Appendix not well seen. No dilated loops of bowel to suggest obstruction. Degenerative changes the spine with central canal and neural foraminal stenosis. Degenerative changes left hip. IMPRESSION: 1. At partially visualized right lung base there is repeat demonstration of a dense masslike opacity identified. Could be infectious or inflammatory in nature but a follow-up will be needed to ensure that this decreases to ensure that this is not neoplastic in nature. 2. Severe atherosclerosis. 3. Innumerable cystic lesions the bilateral kidneys with higher density lesions as well which could be from complex cystic lesions but solid lesions are also within the differential. Nonemergent CT, MRI or ultrasound renal protocol could further evaluate. Electronically signed by: Mazin Hinkle MD (09/29/2018 1:39 AM) [id number]
[2018-09-29 01:43] LABS: CALCIUM 8.8 mg/dL (8.5-10.1); CREATININE 9.1 mg/dL (0.7-1.3); GFR 5.9; POTASSIUM 4.5 mmol/L (3.5-5.1)
[2018-09-29 01:50] LABS: ALBUMIN 3.7 g/dL (3.4-5.0); ALBUMIN/GLOBULIN RATIO 0.9 (1.0-1.7); TOTAL BILIRUBIN 0.5 mg/dL (0.2-1.0); TOTAL PROTEIN 7.8 g/dL (6.4-8.2)
[2018-09-29] MEDS ORDERED: HEPARIN PF 500 UNIT/5 ML DISP.SYRIN. IV ONE (03:54)
[2018-09-29 04:00] VITALS: BP 220/98
[2018-09-29] MEDS ORDERED: cloNIDine HCL 0.1 MG TABLET PO ONE (04:15)
[2018-09-29] MEDS ORDERED: clonazePAM 0.5 MG TABLET PO ONE (04:15)
--- NOTE | 2018-09-29 07:12 | EKG ---
[facility] [address] [place] [address] Test Date: 2018-09-29 Test Time: 00:49:51 Pat Name: IVORY OCONNOR Department: Room: Gender: Male Chief Of Service: : 1955 Requested By: DOE LUCERO Order Number: [id number] Reading MD: Ever Eli MD Measurements Intervals [place] Rate: 65 P: 90 WI: 126 QRS: 44 QRSD: 102 T: 109 QT: 494 QTc: 520 Interpretive Statements SINUS RHYTHM BASELINE ARTIFACT NON-SPECIFIC ST/T CHANGES Electronically Signed On 09-30-2018 10:28:10 [employer] DEL[employer] by Ever Eli MD
--- NOTE | 2018-09-29 09:57 | RAD ---
CHEST PA LATERAL History: CHEST PAIN Comparison: September 23, 2018 Findings: 2 views of the chest are submitted. There again has been a median sternotomy. There is again left port catheter. There is persistent, somewhat increased right infrahilar infiltrate. There are persistent small pleural effusions, right greater than left although decreased. Impression: 1. There is increased right infrahilar infiltrate. There are persistent pleural effusions greater on the right although decreased. Electronically signed by: Aj Montalvo MD (09/29/2018 9:54 AM) [id number]
== END 2018-09-29 04:30 | disposition left against medical advice (07) ==
LOC: ER 23:58
DX: R10.84 Generalized abdominal pain (principal); I12.0 Hypertensive chronic kidney disease with stage 5 chronic kidney disease or end stage renal disease; N18.6 End stage renal disease; R07.89 Other chest pain; R19.7 Diarrhea, unspecified; F41.9 Anxiety disorder, unspecified; Z99.2 Dependence on renal dialysis; Z90.89 Acquired absence of other organs; Z95.1 Presence of aortocoronary bypass graft; Z90.49 Acquired absence of other specified parts of digestive tract
CPT/HCPCS: 36415; 71046; 74176; 80053; 83690; 84484; 85025; 85610; 93005; 96374; 99285; J2765

== ENCOUNTER 2018-12-13 06:13 | Inpatient (IN) | payer MEDICARE ==
[~2018-12-13] VITALS: Ht 170.2 cm; Wt 67.1 kg
[~2018-12-13 06:13] MED LIST changes: +AMOX1TAB10 PO; +DOXY100T PO; -HYDR-2758 PO; +HYDR-2761 PO; +LOSA-73 PO; +LOSA100T14; +LOSA100T14 PO; -LOSA100T7; -LOSA100T7 PO; -LOSA50TA2 PO
[2018-12-13] MEDS ORDERED: NITROGLYCERIN SUBLINGUAL 0.4 MG BOTTLE OF 25. SL PRN (06:30)
--- NOTE | 2018-12-13 06:36 | PHYS DOC ---
Past Medical History Past Medical History: Cancer, Hypertension, Pancreatitis, Renal Disease, Other Additional Past Medical Histor: BLADDER CANCER, LUNG CANCER Past Surgical History: Appendectomy, Coronary Bypass Surgery Additional Past Surgical Histo: Dialysis shunt L) arm. cardiac stent, lens implants Alcohol Use: Occasionally Drug Use: None Adult General Chief Complaint Chief Complaint: CHEST PAIN HPI HPI Patient is a 63-year-old male who presents via EMS with report of chest pain that started at about 4:30 this morning. Patient had presented to dialysis and patient was given a dose of nitroglycerin with some improvement and chest pain returned. At this point, EMS was contacted for transport of the patient to this facility. Patient did not receive his dialysis. EMS reports that pain had returned and they had given him another nitroglycerin with transient complete relief of symptoms. At that time his pain was an 8 out of 10. Currently patient states that his pain is between 4-5 out of 10. He does report a little nausea but no diaphoresis. He describes pain as a dull ache. He denies any radiation of the pain. He denies any fever, shortness breath, abdominal pain, vomiting or diarrhea. Patient states nitroglycerin improves pain and exertion worsens pain. Review of Systems Review of Systems Constitutional: Denies fever or chills [] Respiratory: Denies cough or shortness of breath [] Cardiovascular: No additional information not addressed in HPI [] GI: Denies abdominal pain, vomiting or diarrhea [] Integument: Denies rash or skin lesions [] Neurologic: Denies headache, focal weakness or sensory changes [] All other systems were reviewed and found to be within normal limits, except as documented in this note. Current Medications Current Medications Current Medications Medications (Trade) Dose Ordered Sig/Cirilo Start Time Stop Time Status Last Admin Dose Admin Lorazepam (Ativan) 1 mg 1X ONCE 12/13/18 09:15 12/13/18 09:16 DC Morphine Sulfate (Morphine Sulfate) 2 mg PRN Q15MIN PRN 12/13/18 06:30 12/14/18 06:29 12/13/18 09:17 2 MG Nitroglycerin (Nitrostat) 0.4 mg PRN Q5MIN PRN 12/13/18 06:30 12/14/18 06:29 12/13/18 07:08 0.4 MG Allergies Allergies Allergies Coded Allergies Type Severity Reaction Last Updated Verified aspirin Allergy Intermediate 06/10/18 Yes Physical Exam Physical Exam Constitutional: Well developed, well nourished, no acute distress, non-toxic appearance. [] HENT: Normocephalic, atraumatic, bilateral external ears normal, oropharynx moist, no oral exudates, nose normal. [] Eyes: PERRLA, EOMI, conjunctiva normal, no discharge. [] Neck: Normal range of motion, no tenderness, supple, no stridor. [] Cardiovascular: Regular rate and rhythm [] Lungs & Thorax: Bilateral breath sounds clear to auscultation [] Abdomen: Bowel sounds normal, soft, no tenderness. [] Skin: Warm, dry, no erythema, no rash. [] Extremities: No tenderness, no cyanosis, no clubbing, ROM intact. [] Neurologic: Alert and oriented X 3, no focal deficits noted. [] Current Patient Data Vital Signs Vital Signs Date Time Temp Pulse Resp B/P (MAP) Pulse Ox O2 Delivery O2 Flow Rate FiO2 12/13/18 09:17 20 100 Room Air 2.0 12/13/18 07:08 83 133/83 12/13/18 06:13 98.8 98.8 Lab Values Laboratory Tests Test 12/13/18 06:28 White Blood Count 7.5 x10^3/uL (4.0-11.0) Red Blood Count 3.70 x10^6/uL (4.30-5.70) L Hemoglobin 11.9 g/dL (13.0-17.5) L Hematocrit 35.0 % (39.0-53.0) L Mean Corpuscular Volume 95 fL (79-100) Mean Corpuscular Hemoglobin 32 pg (25-35) Mean Corpuscular Hemoglobin Concent 34 g/dL (31-37) Red Cell Distribution Width 14.8 % (11.5-14.5) H Platelet Count 189 x10^3/uL (140-400) Neutrophils (%) (Auto) 76 % (31-73) H Lymphocytes (%) (Auto) 10 % (24-48) L Monocytes (%) (Auto) 12 % (0-9) H Eosinophils (%) (Auto) 2 % (0-3) Basophils (%) (Auto) 1 % (0-3) Neutrophils # (Auto) 5.6 x10^3uL (1.8-7.7) Lymphocytes # (Auto) 0.8 x10^3/uL (1.0-4.8) L Monocytes # (Auto) 0.9 x10^3/uL (0.0-1.1) Eosinophils # (Auto) 0.1 x10^3/uL (0.0-0.7) Basophils # (Auto) 0.1 x10^3/uL (0.0-0.2) Prothrombin Time 12.7 SEC (11.7-14.0) Prothrombin Time INR 1.0 (0.8-1.1) Sodium Level 138 mmol/L (136-145) Potassium Level 4.9 mmol/L (3.5-5.1) Chloride Level 99 mmol/L (98-107) Carbon Dioxide Level 22 mmol/L (21-32) Anion Gap 17 (6-14) H Blood Urea Nitrogen 61 mg/dL (8-26) H Creatinine 9.7 mg/dL (0.7-1.3) H Estimated GFR (Cockcroft-Gault) 5.5 BUN/Creatinine Ratio 6 (6-20) Glucose Level 89 mg/dL (70-99) Calcium Level 8.7 mg/dL (8.5-10.1) Magnesium Level 2.6 mg/dL (1.8-2.4) H Total Bilirubin 0.7 mg/dL (0.2-1.0) Aspartate Amino Transferase (AST) 18 U/L (15-37) Alanine Aminotransferase (ALT) 16 U/L (16-63) Alkaline Phosphatase 68 U/L (46-116) Troponin I Quantitative 0.073 ng/mL (0.000-0.055) OC-Gqn-Q-Type Natriuretic Peptide > 43171 pg/mL (0-124) H Total Protein 7.1 g/dL (6.4-8.2) Albumin 3.4 g/dL (3.4-5.0) Albumin/Globulin Ratio 0.9 (1.0-1.7) L Laboratory Tests 12/13/18 06:28 Laboratory Tests 12/13/18 06:28 EKG EKG [] Interpretation Time: EKG demonstrates normal sinus rhythm with rate of 79. There are nonspecific T- wave ST-T wave abnormalities Radiology/Procedures Radiology/Procedures [] Impressions: PORTABLE CHEST 1V Clinical indications: CHEST PAIN, shortness of air X1 DAY COMPARISON: November 17, 2018. Findings: No acute lung infiltrate or pleural effusion or pulmonary edema or lung mass or pneumothorax is seen. A sternotomy is evident. The heart size, pulmonary vasculature, mediastinum and both khushbu are otherwise unremarkable. Left subclavian Port-A-Cath is unchanged in position. Impression: No acute radiographic abnormality is seen. Electronically signed by: Kendrick Lima MD (12/13/2018 8:19 AM) [facility] Course & Med Decision Making Course & Med Decision Making Pertinent Labs and Imaging studies reviewed. (See chart for details) [] Dragon Disclaimer Dragon Disclaimer This electronic medical record was generated, in whole or in part, using a voice recognition dictation system. Departure Departure Impression: Primary Impression: Chest pain Disposition: 09 ADMITTED INPATIENT Admitting Physician: Catie Chowdary Condition: IMPROVED Referrals: RED DOMINGO (PCP) Problem Qualifiers Primary Impression: Chest pain Chest pain type: unspecified Qualified Codes: R07.9 - Chest pain, unspecified GRETEL LEDBETTER Jr. DO Dec 13, 2018 06:36
[2018-12-13 06:57] LABS: CALCIUM 8.7 mg/dL (8.5-10.1); CREATININE 9.7 mg/dL (0.7-1.3); GFR 5.5; POTASSIUM 4.9 mmol/L (3.5-5.1)
[2018-12-13 07:00] LABS: BASO # 0.1 x10^3/uL (0.0-0.2); BASO % 1 % (0-3); EOS # 0.1 x10^3/uL (0.0-0.7); EOS % 2 % (0-3); HEMOGLOBIN 11.9 g/dL (13.0-17.5); LYMPH # 0.8 x10^3/uL (1.0-4.8); LYMPH % 10 % (24-48); MEAN CORPUSCULAR HEMOGLOBIN 32 pg (25-35); MEAN CORPUSCULAR HGB CONC 34 g/dL (31-37); MEAN CORPUSCULAR VOLUME 95 fL (79-100); MONO # 0.9 x10^3/uL (0.0-1.1); MONO % 12 % (0-9); NEUT # 5.6 x10^3uL (1.8-7.7); NEUT % 76 % (31-73); PLATELET COUNT 189 x10^3/uL (140-400); RED CELL DISTRIBUTION WIDTH 14.8 % (11.5-14.5); WHITE BLOOD COUNT 7.5 x10^3/uL (4.0-11.0)
[2018-12-13 07:01] LABS: ALBUMIN 3.4 g/dL (3.4-5.0); ALBUMIN/GLOBULIN RATIO 0.9 (1.0-1.7); MAGNESIUM 2.6 mg/dL (1.8-2.4); TOTAL BILIRUBIN 0.7 mg/dL (0.2-1.0); TOTAL PROTEIN 7.1 g/dL (6.4-8.2)
[2018-12-13] MEDS: MORPHINE SULFATE 4 MG/ML VIAL. IV/SQ PRN ×3 (07:07→12:57)
[2018-12-13 07:09] LABS: PROTHROMBIN TIME PATIENT 12.7 SEC (11.7-14.0)
--- NOTE | 2018-12-13 08:23 | RAD ---
PORTABLE CHEST 1V Clinical indications: CHEST PAIN, shortness of air X1 DAY COMPARISON: November 17, 2018. Findings: No acute lung infiltrate or pleural effusion or pulmonary edema or lung mass or pneumothorax is seen. A sternotomy is evident. The heart size, pulmonary vasculature, mediastinum and both khushbu are otherwise unremarkable. Left subclavian Port-A-Cath is unchanged in position. Impression: No acute radiographic abnormality is seen. Electronically signed by: Kendrick Lima MD (12/13/2018 8:19 AM) [facility]
[2018-12-13] MEDS ORDERED: MORPHINE SULFATE 4 MG/ML VIAL. IV PRN (09:30)
[2018-12-13] MEDS ORDERED: ONDANSETRON PF 4 MG/2 ML VIAL. IV PRN (09:30)
--- NOTE | 2018-12-13 10:34 | PDOC1 ---
History and Physical Date of Admission Date of Admission DATE: 12/13/18 TIME: 10:28 Identification/Chief Complaint Chief Complaint chest pains Source Source: Caregiver, Chart review, Patient History of Present Illness History of Present Illness 63-year-old male known to our service, comes in because of chest pain while showering. He was actually on his way to dialysis at 4:30 or 5 AM the morning and had some midsternal sharp chest pain 10 out of 10 radiating to the left. No diaphoresis, no presyncopal symptoms. Known to Dr. Kiran but is not transfer service to our cardiology group. EKG and troponins negative. Got nitroglycerin 3 with relief and morphine and is currently chest pain-free. Vital signs: Blood pressure 10 to be on the high side. Admitted with cards consult. He thought it was initially reflux-took some Tums but no relief. He's concerned about blockage in his AV fistula area access. There is palpable bruit with good distal pulses. He did not get his dialysis today because of the chest pains. His HD days are Saturday Past Medical History Cardiovascular: CAD, CHF, HTN, [place] Pulmonary: No pertinent hx, Bronchitis, Other GI: Constipation, GERD, Other Heme/Onc: Anemia NOS, Cancer Psych: Anxiety, Depression Renal/: Chronic renal failure, Bladder Ca., Other Endocrine: Diabetes, Hyperparathyroidism Past Surgical History Past Surgical History: Appendectomy, Cholecystectomy, CABG, Other Family History Family History: Cancer, Diabetes, Kidney Disease, Stroke Social History ALCOHOL: none Drugs: None Current Problem List Problem List Problems Medical Problems: (1) Chest pain Status: Acute Current Medications Current Medications Current Medications Nitroglycerin (Nitrostat) 0.4 mg PRN Q5MIN PRN SL CP RATING > 1/10 Last administered on 12/13/18at 07:08; Start 12/13/18 at 06:30; Stop 12/14/18 at 06:29 Morphine Sulfate (Morphine Sulfate) 2 mg PRN Q15MIN PRN IV/SQ PAIN GREATER THAN 3/10 Last administered on 12/13/18at 09:17; Start 12/13/18 at 06:30; Stop at 06:29 Lorazepam (Ativan) 1 mg 1X ONCE IV Last administered on 12/13/18at 09:27; Start 12/13/18 at 09:15; Stop 12/13/18 at 09:16; Status DC Ondansetron HCl (Zofran) 4 mg PRN Q8HRS PRN IV NAUSEA/VOMITING; Start 12/13/18 at 09:30; Stop 12/14/18 at 09:29 Morphine Sulfate (Morphine Sulfate) 2 mg PRN Q2HR PRN IV PAIN; Start 12/13/18 at 09:30; Stop 12/14/18 at 09:29 Active Scripts Active Doxycycline Hyclate 100 Mg Tablet 100 Mg PO BID 7 Days Amox Tr-K Clv 500-125 Mg Tab (Amoxicillin/Potassium Clav) 1 Each Tablet 1 Tab PO QHS 7 Days Cozaar (Losartan Potassium) 50 Mg Tablet 50 Mg PO DAILY Flomax (Tamsulosin Hcl) 0.4 Mg Cap.er.24h 0.4 Mg PO QHS Reported Xanax (Alprazolam) 1 Mg Tablet 1 Tab PO TID Aspirin 81 Mg Tab.chew 81 Tab PO DAILY Metoprolol Tartrate 100 Mg Tablet 1 Tab PO BID Plavix (Clopidogrel Bisulfate) 75 Mg Tablet 75 PO DAILY Hydralazine Hcl 50 Mg Tablet 50 TID Nephro-Chilo Tablet (Folic Acid/Vitamin B Comp W-C) 0.8 Mg Tablet 1 Tab PO DAILY Paroxetine Hcl 20 Mg Tablet 40 Mg PO DAILY Tums (Calcium Carbonate) 200 Mg Tab.chew 800 Mg PO TIDAC Omeprazole Magnesium 20 Mg Capsule.dr 20 Mg PO DAILY Allergies Allergies: Coded Allergies: aspirin (Verified Allergy, Intermediate, 06/10/18) takes 81mg daily at home ROS Review of System As per history of present illness, the rest of ROS 14 point negative Physical Exam General: Alert, Oriented X3, Cooperative, No acute distress HEENT: Atraumatic, PERRLA, EOMI Lungs: Clear to auscultation, Normal air movement Heart: S1S2, RRR, no thrills, no rubs, no gallops, no murmurs Cardiovascular: S1, S2 Abdomen: Normal bowel sounds, Soft, No tenderness, No hepatosplenomegaly, No masses Male Genitals Exam: normal genitalia, normal prostate Rectal Exam: not examined Extremities: Other (left AV fistula with palpable bruit and good distal pulses) Skin: No rashes, No breakdown, No significant lesion Neuro: Normal gait, Normal speech, Strength at 5/5 X4 ext, Normal tone, Sensation intact, Cranial nerves 3-12 NL, Reflexes 2+ Psych/Mental Status: Mental status NL, Mood NL Vitals Vitals Vital Signs Date Time Temp Pulse Resp B/P (MAP) Pulse Ox O2 Delivery O2 Flow Rate FiO2 12/13/18 09:17 20 100 Room Air 2.0 12/13/18 07:08 83 133/83 12/13/18 06:13 98.8 98.8 Labs Labs Laboratory Tests Test 12/13/18 06:28 White Blood Count 7.5 x10^3/uL (4.0-11.0) Red Blood Count 3.70 x10^6/uL (4.30-5.70) Hemoglobin 11.9 g/dL (13.0-17.5) Hematocrit 35.0 % (39.0-53.0) Mean Corpuscular Volume 95 fL (79-100) Mean Corpuscular Hemoglobin 32 pg (25-35) Mean Corpuscular Hemoglobin Concent 34 g/dL (31-37) Red Cell Distribution Width 14.8 % (11.5-14.5) Platelet Count 189 x10^3/uL (140-400) Neutrophils (%) (Auto) 76 % (31-73) Lymphocytes (%) (Auto) 10 % (24-48) Monocytes (%) (Auto) 12 % (0-9) Eosinophils (%) (Auto) 2 % (0-3) Basophils (%) (Auto) 1 % (0-3) Neutrophils # (Auto) 5.6 x10^3uL (1.8-7.7) Lymphocytes # (Auto) 0.8 x10^3/uL (1.0-4.8) Monocytes # (Auto) 0.9 x10^3/uL (0.0-1.1) Eosinophils # (Auto) 0.1 x10^3/uL (0.0-0.7) Basophils # (Auto) 0.1 x10^3/uL (0.0-0.2) Prothrombin Time 12.7 SEC (11.7-14.0) Prothromb Time International Ratio 1.0 (0.8-1.1) Sodium Level 138 mmol/L (136-145) Potassium Level 4.9 mmol/L (3.5-5.1) Chloride Level 99 mmol/L (98-107) Carbon Dioxide Level 22 mmol/L (21-32) Anion Gap 17 (6-14) Blood Urea Nitrogen 61 mg/dL (8-26) Creatinine 9.7 mg/dL (0.7-1.3) Estimated GFR (Cockcroft-Gault) 5.5 BUN/Creatinine Ratio 6 (6-20) Glucose Level 89 mg/dL (70-99) Calcium Level 8.7 mg/dL (8.5-10.1) Magnesium Level 2.6 mg/dL (1.8-2.4) Total Bilirubin 0.7 mg/dL (0.2-1.0) Aspartate Amino Transf (AST/SGOT) 18 U/L (15-37) Alanine Aminotransferase (ALT/SGPT) 16 U/L (16-63) Alkaline Phosphatase 68 U/L (46-116) Troponin I Quantitative 0.073 ng/mL (0.000-0.055) NC-Uem-A-Type Natriuretic Peptide > 60524 pg/mL (0-124) Total Protein 7.1 g/dL (6.4-8.2) Albumin 3.4 g/dL (3.4-5.0) Albumin/Globulin Ratio 0.9 (1.0-1.7) Laboratory Tests Test 12/13/18 06:28 White Blood Count 7.5 x10^3/uL (4.0-11.0) Red Blood Count 3.70 x10^6/uL (4.30-5.70) Hemoglobin 11.9 g/dL (13.0-17.5) Hematocrit 35.0 % (39.0-53.0) Mean Corpuscular Volume 95 fL (79-100) Mean Corpuscular Hemoglobin 32 pg (25-35) Mean Corpuscular Hemoglobin Concent 34 g/dL (31-37) Red Cell Distribution Width 14.8 % (11.5-14.5) Platelet Count 189 x10^3/uL (140-400) Neutrophils (%) (Auto) 76 % (31-73) Lymphocytes (%) (Auto) 10 % (24-48) Monocytes (%) (Auto) 12 % (0-9) Eosinophils (%) (Auto) 2 % (0-3) Basophils (%) (Auto) 1 % (0-3) Neutrophils # (Auto) 5.6 x10^3uL (1.8-7.7) Lymphocytes # (Auto) 0.8 x10^3/uL (1.0-4.8) Monocytes # (Auto) 0.9 x10^3/uL (0.0-1.1) Eosinophils # (Auto) 0.1 x10^3/uL (0.0-0.7) Basophils # (Auto) 0.1 x10^3/uL (0.0-0.2) Prothrombin Time 12.7 SEC (11.7-14.0) Prothromb Time International Ratio 1.0 (0.8-1.1) Sodium Level 138 mmol/L (136-145) Potassium Level 4.9 mmol/L (3.5-5.1) Chloride Level 99 mmol/L (98-107) Carbon Dioxide Level 22 mmol/L (21-32) Anion Gap 17 (6-14) Blood Urea Nitrogen 61 mg/dL (8-26) Creatinine 9.7 mg/dL (0.7-1.3) Estimated GFR (Cockcroft-Gault) 5.5 BUN/Creatinine Ratio 6 (6-20) Glucose Level 89 mg/dL (70-99) Calcium Level 8.7 mg/dL (8.5-10.1) Magnesium Level 2.6 mg/dL (1.8-2.4) Total Bilirubin 0.7 mg/dL (0.2-1.0) Aspartate Amino Transf (AST/SGOT) 18 U/L (15-37) Alanine Aminotransferase (ALT/SGPT) 16 U/L (16-63) Alkaline Phosphatase 68 U/L (46-116) Troponin I Quantitative 0.073 ng/mL (0.000-0.055) TP-Exz-A-Type Natriuretic Peptide > 87663 pg/mL (0-124) Total Protein 7.1 g/dL (6.4-8.2) Albumin 3.4 g/dL (3.4-5.0) Albumin/Globulin Ratio 0.9 (1.0-1.7) VTE Prophylaxis Ordered VTE Prophylaxis Devices: Yes VTE Pharmacological Prophylaxi: Yes Assessment/Plan Assessment/Plan Chest pain, history of CAD, CHF/ vasculopath ESRD TTH S dialysis Anemia of ESRD anxiety NOS Accel HTN POA History of chronic pancreatitis History of diarrhea but that is resolved PLAN: Hook to telemetry Admit Cards consult He wishes to have cardiac workup this admission Dialysis today per renal (TT) Home meds I will reconciled Seen at ER ARSALAN Calderon MD Dec 13, 2018 10:34
[2018-12-13] MEDS: METOPROLOL TART IMMED RELEASE 50 MG TABLET. PO SCH ×2 (11:00→21:17)
[2018-12-13] MEDS: FOLIC/VIT B COMP W-C (RENAL) TABLET. PO SCH (11:00)
[2018-12-13] MEDS: PANTOPRAZOLE 40 MG TABLET.DR. PO SCH (11:00)
[2018-12-13] MEDS: LOSARTAN POTASSIUM 50 MG TABLET. PO SCH (11:00)
[2018-12-13] MEDS: ASPIRIN CHEWABLE 81 MG TABLET. PO SCH (11:00)
[2018-12-13] MEDS: PARoxetine 20 MG TABLET PO SCH (11:00)
[2018-12-13 11:10] VITALS: BP 197/83
[2018-12-13] MEDS: CALCIUM CARBONATE 500 MG TAB.CHEW PO SCH ×2 (11:30→16:30)
[2018-12-13] MEDS ORDERED: IV NORMAL SALINE 1000ML BAG 1,000 ML IV PRN ×2 (11:52)
[2018-12-13] MEDS ORDERED: LABETALOL 20 MG/4 ML DISP.SYRIN. IVP PRN (12:00)
[2018-12-13] MEDS ORDERED: DIALYSIS PATIENT. MC PRN ×2 (12:00)
--- NOTE | 2018-12-13 12:00 | NUR ---
PO MEDS INCLUDING BLOOD PRESSURE MEDS HELD DUE TO PT BEING DIALYZED TODAY.
[2018-12-13] MEDS: ALPRAZolam 1 MG TABLET PO SCH ×2 (13:05→21:18)
--- NOTE | 2018-12-13 14:36 | PDOC2 ---
CONSULT Date of Consult Date of Consult DATE: 12/13/18 TIME: 14:27 Reason for Consult Reason for Consult: Chest pain Referring Physician Referring Physician: Dr. Chowdary Identification/Chief Complaint Chief Complaint Chest pain Source Source: Chart review, Patient History of Present Illness Reason for Visit: The patient is a 63-year-old male who developed chest discomfort earlier today prior to hemodialysis run. The pain was improved with sublingual nitroglycerin and he was brought to the emergency room. In the emergency room the patient's initial troponin was not significantly elevated at 0.073. His EKG showed no acute ischemia. BNP was 35,000. Chest x-ray showed no acute changes. Patient was admitted for further treatment and evaluation. He now is relatively comfortable at bed. His chest pain has resolved. He does have a history of coronary disease and had bypass surgery on [id number] receiving an WHITEHEAD graft to the LAD, and a saphenous vein graft to the first diagonal and obtuse marginal branches. He received a second saphenous vein graft to the PDA and the posterior lateral branch. His most recent echocardiogram was from [id number] that showed an ejection fraction of 30% with severe left ventricular hypertrophy. Past Medical History Cardiovascular: CAD, CHF, HTN, [place] Pulmonary: No pertinent hx, Bronchitis, Other GI: Constipation, GERD, Other Heme/Onc: Anemia NOS, Cancer Psych: Anxiety, Depression Renal/: Chronic renal failure, Bladder Ca., Other Endocrine: Diabetes, Hyperparathyroidism Past Surgical History Past Surgical History: Appendectomy, Cholecystectomy, CABG, Other Family History Family History: Cancer, Diabetes, Kidney Disease, Stroke Social History No ALCOHOL: none Drugs: None Lives: with Family Domestic Violence: Neg Current Problem List Problem List Problems Medical Problems: (1) Chest pain Status: Acute Current Medications Current Medications Current Medications Nitroglycerin (Nitrostat) 0.4 mg PRN Q5MIN PRN SL CP RATING > 1/10 Last administered on 12/13/18at 07:08; Start 12/13/18 at 06:30; Stop 12/14/18 at 06:29 Morphine Sulfate (Morphine Sulfate) 2 mg PRN Q15MIN PRN IV/SQ PAIN GREATER THAN 3/10 Last administered on 12/13/18at 12:57; Start 12/13/18 at 06:30; Stop at 06:29 Lorazepam (Ativan) 1 mg 1X ONCE IV Last administered on 12/13/18at 09:27; Start 12/13/18 at 09:15; Stop 12/13/18 at 09:16; Status DC Ondansetron HCl (Zofran) 4 mg PRN Q8HRS PRN IV NAUSEA/VOMITING; Start 12/13/18 at 09:30; Stop 12/14/18 at 09:29 Morphine Sulfate (Morphine Sulfate) 2 mg PRN Q2HR PRN IV PAIN; Start 12/13/18 at 09:30; Stop 12/14/18 at 09:29 Alprazolam (Xanax) 1 mg TID PO Last administered on 12/13/18at 13:05; Start at 14:00 Aspirin (Children'S Aspirin) 81 mg DAILY PO ; Start 12/13/18 at 11:00 Calcium Carbonate/ Glycine (Tums) 1,000 mg TIDAC PO ; Start 12/13/18 at 11:30 Clopidogrel Bisulfate (Plavix) 75 mg DAILY PO ; Start 12/13/18 at 11:00 Vitamin B Complex/ Vitamin C (Frances-Chilo) 1 tab DAILY PO ; Start 12/13/18 at 11: 00 Losartan Potassium (Cozaar) 50 mg DAILY PO ; Start 12/13/18 at 11:00 Tamsulosin HCl (Flomax) 0.4 mg QHS PO ; Start 12/13/18 at 21:00 Hydralazine HCl (Apresoline) 50 mg TID PO ; Start 12/13/18 at 14:00 Metoprolol Tartrate (Lopressor) 100 mg BID PO ; Start 12/13/18 at 11:00 Pantoprazole Sodium (Protonix) 40 mg DAILYAC PO ; Start 12/13/18 at 11:00 Paroxetine HCl (Paxil) 40 mg DAILY PO ; Start 12/13/18 at 11:00 Sodium Chloride 1,000 ml @ 1,000 mls/hr Q1H PRN IV hypotension; Start 12/13/18 at 11:52; Stop 12/13/18 at 17:51 Labetalol HCl (Normodyne Iv Push) 10 mg PRN Q1HR PRN IVP SBP > 180; Start 12/13 at 12:00; Stop 12/14/18 at 11:59 Sodium Chloride 1,000 ml @ 400 mls/hr Q2H30M PRN IV PATENCY; Start 12/13/18 at 11:52; Stop 12/13/18 at 23:51 Info (PHARMACY MONITORING -- do not chart) 1 each PRN DAILY PRN MC SEE COMMENTS ; Start 12/13/18 at 12:00 Info (PHARMACY MONITORING -- do not chart) 1 each PRN DAILY PRN MC SEE COMMENTS ; Start 12/13/18 at 12:00; Stop 12/13/18 at 12:00; Status DC Active Scripts Active Doxycycline Hyclate 100 Mg Tablet 100 Mg PO BID 7 Days Amox Tr-K Clv 500-125 Mg Tab (Amoxicillin/Potassium Clav) 1 Each Tablet 1 Tab PO QHS 7 Days Cozaar (Losartan Potassium) 50 Mg Tablet 50 Mg PO DAILY Flomax (Tamsulosin Hcl) 0.4 Mg Cap.er.24h 0.4 Mg PO QHS Reported Xanax (Alprazolam) 1 Mg Tablet 1 Tab PO TID Aspirin 81 Mg Tab.chew 81 Tab PO DAILY Metoprolol Tartrate 100 Mg Tablet 1 Tab PO BID Plavix (Clopidogrel Bisulfate) 75 Mg Tablet 75 PO DAILY Hydralazine Hcl 50 Mg Tablet 50 TID Nephro-Chilo Tablet (Folic Acid/Vitamin B Comp W-C) 0.8 Mg Tablet 1 Tab PO DAILY Paroxetine Hcl 20 Mg Tablet 40 Mg PO DAILY Tums (Calcium Carbonate) 200 Mg Tab.chew 800 Mg PO TIDAC Omeprazole Magnesium 20 Mg Capsule.dr 20 Mg PO DAILY Allergies Allergies: Coded Allergies: aspirin (Verified Allergy, Intermediate, 06/10/18) takes 81mg daily at home ROS General: YES: Fatigue Respiratory: YES: SOB with excertion Cardiovascular: yes Chest Pain Physical Exam General: mild distress HEENT: Atraumatic Lungs: Other (slightly decreased breath sounds) Heart: Regular rate Abdomen: Normal bowel sounds Vitals VITALS Vital Signs Date Time Temp Pulse Resp B/P (MAP) Pulse Ox O2 Delivery O2 Flow Rate FiO2 12/13/18 12:57 18 Nasal Cannula 2.0 12/13/18 10:30 72 183/84 (117) 100 12/13/18 06:13 98.8 98.8 Labs Labs Laboratory Tests Test 12/13/18 06:28 12/13/18 11:49 12/13/18 12:24 1/26/19 12:35 White Blood Count 7.5 x10^3/uL (4.0-11.0) Red Blood Count 3.70 x10^6/uL (4.30-5.70) Hemoglobin 11.9 g/dL (13.0-17.5) Hematocrit 35.0 % (39.0-53.0) Mean Corpuscular Volume 95 fL (79-100) Mean Corpuscular Hemoglobin 32 pg (25-35) Mean Corpuscular Hemoglobin Concent 34 g/dL (31-37) Red Cell Distribution Width 14.8 % (11.5-14.5) Platelet Count 189 x10^3/uL (140-400) Neutrophils (%) (Auto) 76 % (31-73) Lymphocytes (%) (Auto) 10 % (24-48) Monocytes (%) (Auto) 12 % (0-9) Eosinophils (%) (Auto) 2 % (0-3) Basophils (%) (Auto) 1 % (0-3) Neutrophils # (Auto) 5.6 x10^3uL (1.8-7.7) Lymphocytes # (Auto) 0.8 x10^3/uL (1.0-4.8) Monocytes # (Auto) 0.9 x10^3/uL (0.0-1.1) Eosinophils # (Auto) 0.1 x10^3/uL (0.0-0.7) Basophils # (Auto) 0.1 x10^3/uL (0.0-0.2) Prothrombin Time 12.7 SEC (11.7-14.0) Prothromb Time International Ratio 1.0 (0.8-1.1) Sodium Level 138 mmol/L (136-145) Potassium Level 4.9 mmol/L (3.5-5.1) Chloride Level 99 mmol/L (98-107) Carbon Dioxide Level 22 mmol/L (21-32) Anion Gap 17 (6-14) Blood Urea Nitrogen 61 mg/dL (8-26) Creatinine 9.7 mg/dL (0.7-1.3) Estimated GFR (Cockcroft-Gault) 5.5 BUN/Creatinine Ratio 6 (6-20) Glucose Level 89 mg/dL (70-99) Calcium Level 8.7 mg/dL (8.5-10.1) Magnesium Level 2.6 mg/dL (1.8-2.4) Total Bilirubin 0.7 mg/dL (0.2-1.0) Aspartate Amino Transf (AST/SGOT) 18 U/L (15-37) Alanine Aminotransferase (ALT/SGPT) 16 U/L (16-63) Alkaline Phosphatase 68 U/L (46-116) Troponin I Quantitative 0.073 ng/mL (0.000-0.055) 0.098 ng/mL (0.000-0.055) XV-Jnh-H-Type Natriuretic Peptide > 95611 pg/mL (0-124) Total Protein 7.1 g/dL (6.4-8.2) Albumin 3.4 g/dL (3.4-5.0) Albumin/Globulin Ratio 0.9 (1.0-1.7) Glucose (Fingerstick) 63 mg/dL (70-99) 86 mg/dL (70-99) Laboratory Tests Test 12/13/18 06:28 12/13/18 11:49 12/13/18 12:24 12/13/18 12:35 White Blood Count 7.5 x10^3/uL (4.0-11.0) Red Blood Count 3.70 x10^6/uL (4.30-5.70) Hemoglobin 11.9 g/dL (13.0-17.5) Hematocrit 35.0 % (39.0-53.0) Mean Corpuscular Volume 95 fL (79-100) Mean Corpuscular Hemoglobin 32 pg (25-35) Mean Corpuscular Hemoglobin Concent 34 g/dL (31-37) Red Cell Distribution Width 14.8 % (11.5-14.5) Platelet Count 189 x10^3/uL (140-400) Neutrophils (%) (Auto) 76 % (31-73) Lymphocytes (%) (Auto) 10 % (24-48) Monocytes (%) (Auto) 12 % (0-9) Eosinophils (%) (Auto) 2 % (0-3) Basophils (%) (Auto) 1 % (0-3) Neutrophils # (Auto) 5.6 x10^3uL (1.8-7.7) Lymphocytes # (Auto) 0.8 x10^3/uL (1.0-4.8) Monocytes # (Auto) 0.9 x10^3/uL (0.0-1.1) Eosinophils # (Auto) 0.1 x10^3/uL (0.0-0.7) Basophils # (Auto) 0.1 x10^3/uL (0.0-0.2) Prothrombin Time 12.7 SEC (11.7-14.0) Prothromb Time International Ratio 1.0 (0.8-1.1) Sodium Level 138 mmol/L (136-145) Potassium Level 4.9 mmol/L (3.5-5.1) Chloride Level 99 mmol/L (98-107) Carbon Dioxide Level 22 mmol/L (21-32) Anion Gap 17 (6-14) Blood Urea Nitrogen 61 mg/dL (8-26) Creatinine 9.7 mg/dL (0.7-1.3) Estimated GFR (Cockcroft-Gault) 5.5 BUN/Creatinine Ratio 6 (6-20) Glucose Level 89 mg/dL (70-99) Calcium Level 8.7 mg/dL (8.5-10.1) Magnesium Level 2.6 mg/dL (1.8-2.4) Total Bilirubin 0.7 mg/dL (0.2-1.0) Aspartate Amino Transf (AST/SGOT) 18 U/L (15-37) Alanine Aminotransferase (ALT/SGPT) 16 U/L (16-63) Alkaline Phosphatase 68 U/L (46-116) Troponin I Quantitative 0.073 ng/mL (0.000-0.055) 0.098 ng/mL (0.000-0.055) QO-Odh-E-Type Natriuretic Peptide > 07864 pg/mL (0-124) Total Protein 7.1 g/dL (6.4-8.2) Albumin 3.4 g/dL (3.4-5.0) Albumin/Globulin Ratio 0.9 (1.0-1.7) Glucose (Fingerstick) 63 mg/dL (70-99) 86 mg/dL (70-99) Images Images Chest x-ray with no acute changes. Assessment/Plan Assessment/Plan 1. Chest pain. History of bypass surgery as noted above. Pain has largely resolved. Initial troponin not significantly elevated but will trend troponins. EKG also without acute ischemic changes but will rule out for myocardial infarction. We'll monitor over night and determine the appropriate method of follow-up ischemic testing for the patient. 2. Acute diastolic heart failure. BNP significantly elevated. Continue baseline medications. Ejection fraction of 30% on echocardiogram and will recheck echocardiogram. Also severe left ventricular hypertrophy. Fluid management primarily through dialysis. 3. End-stage renal disease. Hemodialysis as per the renal service. 4. Hypertension. Reasonably controlled. We'll adjust medications as needed. Thank you for allowing us to participate in the care of your patient. NIHARIKA VENTURA MD Dec 13, 2018 14:35
--- NOTE | 2018-12-13 14:38 | PDOC2 ---
CONSULT Date of Consult Date of Consult DATE: 12/13/18 TIME: 14:32 Reason for Consult Reason for Consult: ESRD Referring Physician Referring Physician: FRANCINE Identification/Chief Complaint Chief Complaint CHEST PAIN Source Source: Chart review, Patient History of Present Illness Reason for Visit: THIS IS A 63 YR OLD WITH ESRD DUE TO DM II AND HTN. HE HAS OP HD ON TTS. TODAY IS HIS DAY FOR DIALYSIS. HE HAD CHEST PAIN THIS AM WHILE AT THE HD CENTER. HE WAS GIVEN SL NTG AND SENT TO THE ER. CARDIOLOGY EVALUATION IS ONGOING AT THIS TIME. LABS ARE C/W ESRD Past Medical History Cardiovascular: CAD, CHF, HTN, [place] Pulmonary: No pertinent hx, Bronchitis, Other GI: Constipation, GERD, Other Heme/Onc: Anemia NOS, Cancer Psych: Anxiety, Depression Renal/: Chronic renal failure, Bladder Ca., Other Endocrine: Diabetes, Hyperparathyroidism Past Surgical History Past Surgical History: Appendectomy, Cholecystectomy, CABG, Other Family History Family History: Cancer, Diabetes, Kidney Disease, Stroke Social History ALCOHOL: none Drugs: None Lives: with Family Domestic Violence: Neg Current Problem List Problem List Problems Medical Problems: (1) Chest pain Status: Acute Current Medications Current Medications Current Medications Nitroglycerin (Nitrostat) 0.4 mg PRN Q5MIN PRN SL CP RATING > 1/10 Last administered on 12/13/18at 07:08; Start 12/13/18 at 06:30; Stop 12/14/18 at 06:29 Morphine Sulfate (Morphine Sulfate) 2 mg PRN Q15MIN PRN IV/SQ PAIN GREATER THAN 3/10 Last administered on 12/13/18at 12:57; Start 12/13/18 at 06:30; Stop at 06:29 Lorazepam (Ativan) 1 mg 1X ONCE IV Last administered on 12/13/18at 09:27; Start 12/13/18 at 09:15; Stop 12/13/18 at 09:16; Status DC Ondansetron HCl (Zofran) 4 mg PRN Q8HRS PRN IV NAUSEA/VOMITING; Start 12/13/18 at 09:30; Stop 12/14/18 at 09:29 Morphine Sulfate (Morphine Sulfate) 2 mg PRN Q2HR PRN IV PAIN; Start 12/13/18 at 09:30; Stop 12/14/18 at 09:29 Alprazolam (Xanax) 1 mg TID PO Last administered on 12/13/18at 13:05; Start at 14:00 Aspirin (Children'S Aspirin) 81 mg DAILY PO ; Start 12/13/18 at 11:00 Calcium Carbonate/ Glycine (Tums) 1,000 mg TIDAC PO ; Start 12/13/18 at 11:30 Clopidogrel Bisulfate (Plavix) 75 mg DAILY PO ; Start 12/13/18 at 11:00 Vitamin B Complex/ Vitamin C (Frances-Chilo) 1 tab DAILY PO ; Start 12/13/18 at 11: 00 Losartan Potassium (Cozaar) 50 mg DAILY PO ; Start 12/13/18 at 11:00 Tamsulosin HCl (Flomax) 0.4 mg QHS PO ; Start 12/13/18 at 21:00 Hydralazine HCl (Apresoline) 50 mg TID PO ; Start 12/13/18 at 14:00 Metoprolol Tartrate (Lopressor) 100 mg BID PO ; Start 12/13/18 at 11:00 Pantoprazole Sodium (Protonix) 40 mg DAILYAC PO ; Start 12/13/18 at 11:00 Paroxetine HCl (Paxil) 40 mg DAILY PO ; Start 12/13/18 at 11:00 Sodium Chloride 1,000 ml @ 1,000 mls/hr Q1H PRN IV hypotension; Start 12/13/18 at 11:52; Stop 12/13/18 at 17:51 Labetalol HCl (Normodyne Iv Push) 10 mg PRN Q1HR PRN IVP SBP > 180; Start 12/13 at 12:00; Stop 12/14/18 at 11:59 Sodium Chloride 1,000 ml @ 400 mls/hr Q2H30M PRN IV PATENCY; Start 12/13/18 at 11:52; Stop 12/13/18 at 23:51 Info (PHARMACY MONITORING -- do not chart) 1 each PRN DAILY PRN MC SEE COMMENTS ; Start 12/13/18 at 12:00 Info (PHARMACY MONITORING -- do not chart) 1 each PRN DAILY PRN MC SEE COMMENTS ; Start 12/13/18 at 12:00; Stop 12/13/18 at 12:00; Status DC Active Scripts Active Doxycycline Hyclate 100 Mg Tablet 100 Mg PO BID 7 Days Amox Tr-K Clv 500-125 Mg Tab (Amoxicillin/Potassium Clav) 1 Each Tablet 1 Tab PO QHS 7 Days Cozaar (Losartan Potassium) 50 Mg Tablet 50 Mg PO DAILY Flomax (Tamsulosin Hcl) 0.4 Mg Cap.er.24h 0.4 Mg PO QHS Reported Xanax (Alprazolam) 1 Mg Tablet 1 Tab PO TID Aspirin 81 Mg Tab.chew 81 Tab PO DAILY Metoprolol Tartrate 100 Mg Tablet 1 Tab PO BID Plavix (Clopidogrel Bisulfate) 75 Mg Tablet 75 PO DAILY Hydralazine Hcl 50 Mg Tablet 50 TID Nephro-Chilo Tablet (Folic Acid/Vitamin B Comp W-C) 0.8 Mg Tablet 1 Tab PO DAILY Paroxetine Hcl 20 Mg Tablet 40 Mg PO DAILY Tums (Calcium Carbonate) 200 Mg Tab.chew 800 Mg PO TIDAC Omeprazole Magnesium 20 Mg Capsule.dr 20 Mg PO DAILY Allergies Allergies: Coded Allergies: aspirin (Verified Allergy, Intermediate, 06/10/18) takes 81mg daily at home ROS General: YES: Fatigue, Other (LEFT FA AVF FEELS VERY TIGHT) PSYCHOLOGICAL ROS: YES: Anxiety, Depression Eyes: Yes Decreased vision HEENT: YES: [place] ALLERGY AND IMMUNOLOGY: YES: Seasonal Allergies Respiratory: YES: Cough Cardiovascular: yes Chest Pain Gastrointestinal: Yes Constipation Genitourinary: YES Other (ANURIA) Musculoskeletal: Yes Muscular Weakness Neurological: Yes Weakness Skin: Yes Dry Skin Physical Exam General: Alert, Oriented X3, Cooperative, No acute distress, Other (LEFT FA AVF WITH A DIMINISHED THRILL AND BRUIT. IT IS ALSO PULSATILE AND DOES NOT COLLAPSE) HEENT: Atraumatic, PERRLA, EOMI, Mucous membr. moist/pink Lungs: Clear to auscultation Heart: Regular rate, Normal S1, Normal S2 Abdomen: Normal bowel sounds, Soft, No tenderness Skin: No breakdown Neuro: Normal speech, Sensation intact Psych/Mental Status: Mental status NL, Mood NL MUSCULOSKELETAL: No joint tenderness, No deformity, No swelling Vitals VITALS Vital Signs Date Time Temp Pulse Resp B/P (MAP) Pulse Ox O2 Delivery O2 Flow Rate FiO2 12/13/18 12:57 18 Nasal Cannula 2.0 12/13/18 10:30 72 183/84 (117) 100 12/13/18 06:13 98.8 98.8 Labs Labs Laboratory Tests Test 12/13/18 06:28 12/13/18 11:49 12/13/18 12:24 12/13/18 12:35 White Blood Count 7.5 x10^3/uL (4.0-11.0) Red Blood Count 3.70 x10^6/uL (4.30-5.70) Hemoglobin 11.9 g/dL (13.0-17.5) Hematocrit 35.0 % (39.0-53.0) Mean Corpuscular Volume 95 fL (79-100) Mean Corpuscular Hemoglobin 32 pg (25-35) Mean Corpuscular Hemoglobin Concent 34 g/dL (31-37) Red Cell Distribution Width 14.8 % (11.5-14.5) Platelet Count 189 x10^3/uL (140-400) Neutrophils (%) (Auto) 76 % (31-73) Lymphocytes (%) (Auto) 10 % (24-48) Monocytes (%) (Auto) 12 % (0-9) Eosinophils (%) (Auto) 2 % (0-3) Basophils (%) (Auto) 1 % (0-3) Neutrophils # (Auto) 5.6 x10^3uL (1.8-7.7) Lymphocytes # (Auto) 0.8 x10^3/uL (1.0-4.8) Monocytes # (Auto) 0.9 x10^3/uL (0.0-1.1) Eosinophils # (Auto) 0.1 x10^3/uL (0.0-0.7) Basophils # (Auto) 0.1 x10^3/uL (0.0-0.2) Prothrombin Time 12.7 SEC (11.7-14.0) Prothromb Time International Ratio 1.0 (0.8-1.1) Sodium Level 138 mmol/L (136-145) Potassium Level 4.9 mmol/L (3.5-5.1) Chloride Level 99 mmol/L (98-107) Carbon Dioxide Level 22 mmol/L (21-32) Anion Gap 17 (6-14) Blood Urea Nitrogen 61 mg/dL (8-26) Creatinine 9.7 mg/dL (0.7-1.3) Estimated GFR (Cockcroft-Gault) 5.5 BUN/Creatinine Ratio 6 (6-20) Glucose Level 89 mg/dL (70-99) Calcium Level 8.7 mg/dL (8.5-10.1) Magnesium Level 2.6 mg/dL (1.8-2.4) Total Bilirubin 0.7 mg/dL (0.2-1.0) Aspartate Amino Transf (AST/SGOT) 18 U/L (15-37) Alanine Aminotransferase (ALT/SGPT) 16 U/L (16-63) Alkaline Phosphatase 68 U/L (46-116) Troponin I Quantitative 0.073 ng/mL (0.000-0.055) 0.098 ng/mL (0.000-0.055) BD-Ruh-E-Type Natriuretic Peptide > 79175 pg/mL (0-124) Total Protein 7.1 g/dL (6.4-8.2) Albumin 3.4 g/dL (3.4-5.0) Albumin/Globulin Ratio 0.9 (1.0-1.7) Glucose (Fingerstick) 63 mg/dL (70-99) 86 mg/dL (70-99) Laboratory Tests Test 12/13/18 06:28 12/13/18 11:49 12/13/18 12:24 12/13/18 12:35 White Blood Count 7.5 x10^3/uL (4.0-11.0) Red Blood Count 3.70 x10^6/uL (4.30-5.70) Hemoglobin 11.9 g/dL (13.0-17.5) Hematocrit 35.0 % (39.0-53.0) Mean Corpuscular Volume 95 fL (79-100) Mean Corpuscular Hemoglobin 32 pg (25-35) Mean Corpuscular Hemoglobin Concent 34 g/dL (31-37) Red Cell Distribution Width 14.8 % (11.5-14.5) Platelet Count 189 x10^3/uL (140-400) Neutrophils (%) (Auto) 76 % (31-73) Lymphocytes (%) (Auto) 10 % (24-48) Monocytes (%) (Auto) 12 % (0-9) Eosinophils (%) (Auto) 2 % (0-3) Basophils (%) (Auto) 1 % (0-3) Neutrophils # (Auto) 5.6 x10^3uL (1.8-7.7) Lymphocytes # (Auto) 0.8 x10^3/uL (1.0-4.8) Monocytes # (Auto) 0.9 x10^3/uL (0.0-1.1) Eosinophils # (Auto) 0.1 x10^3/uL (0.0-0.7) Basophils # (Auto) 0.1 x10^3/uL (0.0-0.2) Prothrombin Time 12.7 SEC (11.7-14.0) Prothromb Time International Ratio 1.0 (0.8-1.1) Sodium Level 138 mmol/L (136-145) Potassium Level 4.9 mmol/L (3.5-5.1) Chloride Level 99 mmol/L (98-107) Carbon Dioxide Level 22 mmol/L (21-32) Anion Gap 17 (6-14) Blood Urea Nitrogen 61 mg/dL (8-26) Creatinine 9.7 mg/dL (0.7-1.3) Estimated GFR (Cockcroft-Gault) 5.5 BUN/Creatinine Ratio 6 (6-20) Glucose Level 89 mg/dL (70-99) Calcium Level 8.7 mg/dL (8.5-10.1) Magnesium Level 2.6 mg/dL (1.8-2.4) Total Bilirubin 0.7 mg/dL (0.2-1.0) Aspartate Amino Transf (AST/SGOT) 18 U/L (15-37) Alanine Aminotransferase (ALT/SGPT) 16 U/L (16-63) Alkaline Phosphatase 68 U/L (46-116) Troponin I Quantitative 0.073 ng/mL (0.000-0.055) 0.098 ng/mL (0.000-0.055) RC-Rth-I-Type Natriuretic Peptide > 97951 pg/mL (0-124) Total Protein 7.1 g/dL (6.4-8.2) Albumin 3.4 g/dL (3.4-5.0) Albumin/Globulin Ratio 0.9 (1.0-1.7) Glucose (Fingerstick) 63 mg/dL (70-99) 86 mg/dL (70-99) Assessment/Plan Assessment/Plan IMP ESRD DM II HTN ANEMIA CHEST PAIN AV ACCESS WITH HIGH Wool Classer SEVERE ANXIETY PLAN CHEST PAIN W/U HD TODAY UF TO DW OP ACCESS EVALUATION JAYDE NGUYEN MD Dec 13, 2018 14:38
--- NOTE | 2018-12-13 15:55 | NUR ---
PT TRANSPORTED TO DIALYSIS BY BED.
[2018-12-13] MEDS ORDERED: diphenhydrAMINE 50 MG/ML VIAL IVP ONE (16:00)
[2018-12-13] MEDS: TAMSULOSIN 0.4 MG CAP.ER.24H. PO SCH (21:17)
[2018-12-13] MEDS: CLOPIDOGREL BISULFATE 75 MG TABLET PO SCH (21:18)
[2018-12-13 22:45] VITALS: BP 112/55
[2018-12-14 07:55] VITALS: BP 131/74
--- NOTE | 2018-12-14 08:42 | PDOC ---
PROGRESS NOTES Chief Complaint Chief Complaint Chest pain, history of CAD, CHF/ vasculopath ESRD TT S dialysis Anemia of ESRD anxiety NOS Accel HTN POA History of chronic pancreatitis History of diarrhea but that is resolved History of Present Illness History of Present Illness 63-year-old male known to our service, comes in because of chest pain while showering. He was actually on his way to dialysis at 4:30 or 5 AM the morning and had some midsternal sharp chest pain 10 out of 10 radiating to the left. No diaphoresis, no presyncopal symptoms. Known to Dr. Kiran but is not transfer service to our cardiology group. EKG and troponins negative. Got nitroglycerin 3 with relief and morphine and is currently chest pain-free. Vital signs: Blood pressure 10 to be on the high side. Admitted with cards consult. He thought it was initially reflux-took some Tums but no relief. He's concerned about blockage in his AV fistula area access. There is palpable bruit with good distal pulses. He did not get his dialysis 12/13/18 because of the chest pains. His HD days are Saturday Overnight BP came down. He is c/o LBP and would like morphine. I have advised him we can use topical, fentanyl, hydrocodone, dilaudid safely in dialysis patients, so will change to fentanyl, hydrocodone today. Has some CP still, mild SOB, no GI complaints Assessment/Plan Chest pain, history of CAD, CHF/ vasculopath - cards to see, cont meds. Tele, [facility] floor ESRD TT S dialysis - nephrology to see Anemia of ESRD - monitor anxiety NOS - has chronic xanax, advised to downtitrate Accel HTN - better today History of chronic pancreatitis - back pain, meds as above History of diarrhea - resolved Hyperglycemia - monitor as he had a low blood sugar FEN - Cardiac PPX - heparin FULL CODE Cont CVC, needs another night of inpatient care Vitals Vitals Vital Signs Date Time Temp Pulse Resp B/P (MAP) Pulse Ox O2 Delivery O2 Flow Rate FiO2 12/14/18 07:55 98.2 57 16 131/74 (93) 100 Room Air 98.2 12/13/18 13:27 2.0 Physical Exam General: Alert, Oriented X3, Cooperative, No acute distress, Other (LEFT FA AVF WITH A DIMINISHED THRILL AND BRUIT. IT IS ALSO PULSATILE AND DOES NOT COLLAPSE) Heart: Regular rate, Normal S1, Normal S2 Lungs: Crackles Abdomen: Normal bowel sounds, Soft, No tenderness Extremities: Other (left AV fistula with palpable bruit and good distal pulses) Skin: No breakdown Labs LABS Laboratory Tests Test 12/13/18 11:49 12/13/18 12:24 12/13/18 12:35 12/13/18 15:30 Glucose (Fingerstick) 63 mg/dL (70-99) 86 mg/dL (70-99) Troponin I Quantitative 0.098 ng/mL (0.000-0.055) 0.097 ng/mL (0.000-0.055) Test 12/13/18 21:13 12/14/18 05:00 12/14/18 08:02 Glucose (Fingerstick) 143 mg/dL (70-99) 86 mg/dL (70-99) Troponin I Quantitative 0.077 ng/mL (0.000-0.055) Assessment and Plan Assessmemt and Plan Problems Medical Problems: (1) Chest pain Status: Acute Comment Review of Relevant I have reviewed the following items dionte (where applicable) has been applied. Labs Laboratory Tests Test 12/13/18 06:28 12/13/18 11:49 12/13/18 12:24 12/13/18 12:35 White Blood Count 7.5 x10^3/uL (4.0-11.0) Red Blood Count 3.70 x10^6/uL (4.30-5.70) Hemoglobin 11.9 g/dL (13.0-17.5) Hematocrit 35.0 % (39.0-53.0) Mean Corpuscular Volume 95 fL (79-100) Mean Corpuscular Hemoglobin 32 pg (25-35) Mean Corpuscular Hemoglobin Concent 34 g/dL (31-37) Red Cell Distribution Width 14.8 % (11.5-14.5) Platelet Count 189 x10^3/uL (140-400) Neutrophils (%) (Auto) 76 % (31-73) Lymphocytes (%) (Auto) 10 % (24-48) Monocytes (%) (Auto) 12 % (0-9) Eosinophils (%) (Auto) 2 % (0-3) Basophils (%) (Auto) 1 % (0-3) Neutrophils # (Auto) 5.6 x10^3uL (1.8-7.7) Lymphocytes # (Auto) 0.8 x10^3/uL (1.0-4.8) Monocytes # (Auto) 0.9 x10^3/uL (0.0-1.1) Eosinophils # (Auto) 0.1 x10^3/uL (0.0-0.7) Basophils # (Auto) 0.1 x10^3/uL (0.0-0.2) Prothrombin Time 12.7 SEC (11.7-14.0) Prothromb Time International Ratio 1.0 (0.8-1.1) Sodium Level 138 mmol/L (136-145) Potassium Level 4.9 mmol/L (3.5-5.1) Chloride Level 99 mmol/L (98-107) Carbon Dioxide Level 22 mmol/L (21-32) Anion Gap 17 (6-14) Blood Urea Nitrogen 61 mg/dL (8-26) Creatinine 9.7 mg/dL (0.7-1.3) Estimated GFR (Cockcroft-Gault) 5.5 BUN/Creatinine Ratio 6 (6-20) Glucose Level 89 mg/dL (70-99) Calcium Level 8.7 mg/dL (8.5-10.1) Magnesium Level 2.6 mg/dL (1.8-2.4) Total Bilirubin 0.7 mg/dL (0.2-1.0) Aspartate Amino Transf (AST/SGOT) 18 U/L (15-37) Alanine Aminotransferase (ALT/SGPT) 16 U/L (16-63) Alkaline Phosphatase 68 U/L (46-116) Troponin I Quantitative 0.073 ng/mL (0.000-0.055) 0.098 ng/mL (0.000-0.055) JN-Zpg-H-Type Natriuretic Peptide > 57333 pg/mL (0-124) Total Protein 7.1 g/dL (6.4-8.2) Albumin 3.4 g/dL (3.4-5.0) Albumin/Globulin Ratio 0.9 (1.0-1.7) Glucose (Fingerstick) 63 mg/dL (70-99) 86 mg/dL (70-99) Test 12/13/18 15:30 12/13/18 21:13 12/14/18 05:00 12/14/18 08:02 Troponin I Quantitative 0.097 ng/mL (0.000-0.055) 0.077 ng/mL (0.000-0.055) Glucose (Fingerstick) 143 mg/dL (70-99) 86 mg/dL (70-99) Laboratory Tests Test 12/13/18 11:49 12/13/18 12:24 12/13/18 12:35 12/13/18 15:30 Glucose (Fingerstick) 63 mg/dL (70-99) 86 mg/dL (70-99) Troponin I Quantitative 0.098 ng/mL (0.000-0.055) 0.097 ng/mL (0.000-0.055) Test 12/13/18 21:13 12/14/18 05:00 12/14/18 08:02 Glucose (Fingerstick) 143 mg/dL (70-99) 86 mg/dL (70-99) Troponin I Quantitative 0.077 ng/mL (0.000-0.055) Medications Current Medications Nitroglycerin (Nitrostat) 0.4 mg PRN Q5MIN PRN SL CP RATING > 1/10 Last administered on 12/13/18at 07:08; Start 12/13/18 at 06:30; Stop 12/14/18 at 06:29 ; Status DC Morphine Sulfate (Morphine Sulfate) 2 mg PRN Q15MIN PRN IV/SQ PAIN GREATER THAN 3/10 Last administered on 12/13/18at 12:57; Start 12/13/18 at 06:30; Stop at 06:29; Status DC Lorazepam (Ativan) 1 mg 1X ONCE IV Last administered on 12/13/18at 09:27; Start 12/13/18 at 09:15; Stop 12/13/18 at 09:16; Status DC Ondansetron HCl (Zofran) 4 mg PRN Q8HRS PRN IV NAUSEA/VOMITING; Start 12/13/18 at 09:30; Stop 12/14/18 at 09:29 Morphine Sulfate (Morphine Sulfate) 2 mg PRN Q2HR PRN IV PAIN; Start 12/13/18 at 09:30; Stop 12/14/18 at 09:29 Alprazolam (Xanax) 1 mg TID PO Last administered on 12/13/18at 21:18; Start at 14:00 Aspirin (Children'S Aspirin) 81 mg DAILY PO ; Start 12/13/18 at 11:00 Calcium Carbonate/ Glycine (Tums) 1,000 mg TIDAC PO ; Start 12/13/18 at 11:30 Clopidogrel Bisulfate (Plavix) 75 mg DAILY PO Last administered on 12/13/18at 21 :18; Start 12/13/18 at 11:00 Vitamin B Complex/ Vitamin C (Frances-Chilo) 1 tab DAILY PO ; Start 12/13/18 at 11: 00 Losartan Potassium (Cozaar) 50 mg DAILY PO ; Start 12/13/18 at 11:00 Tamsulosin HCl (Flomax) 0.4 mg QHS PO Last administered on 12/13/18at 21:17; Start 12/13/18 at 21:00 Hydralazine HCl (Apresoline) 50 mg TID PO Last administered on 12/13/18at 21:18 ; Start 12/13/18 at 14:00 Metoprolol Tartrate (Lopressor) 100 mg BID PO Last administered on 12/13/18at 21 :17; Start 12/13/18 at 11:00 Pantoprazole Sodium (Protonix) 40 mg DAILYAC PO ; Start 12/13/18 at 11:00 Paroxetine HCl (Paxil) 40 mg DAILY PO ; Start 12/13/18 at 11:00 Sodium Chloride 1,000 ml @ 1,000 mls/hr Q1H PRN IV hypotension; Start 12/13/18 at 11:52; Stop 12/13/18 at 17:51; Status DC Labetalol HCl (Normodyne Iv Push) 10 mg PRN Q1HR PRN IVP SBP > 180; Start 12/13 at 12:00; Stop 12/14/18 at 11:59 Sodium Chloride 1,000 ml @ 400 mls/hr Q2H30M PRN IV PATENCY; Start 12/13/18 at 11:52; Stop 12/13/18 at 23:51; Status DC Info (PHARMACY MONITORING -- do not chart) 1 each PRN DAILY PRN MC SEE COMMENTS ; Start 12/13/18 at 12:00 Info (PHARMACY MONITORING -- do not chart) 1 each PRN DAILY PRN MC SEE COMMENTS ; Start 12/13/18 at 12:00; Stop 12/13/18 at 12:00; Status DC Diphenhydramine HCl (Benadryl) 50 mg 1X ONCE IVP ; Start 12/13/18 at 16:00; Stop 12/13/18 at 16:01; Status DC Active Scripts Active Doxycycline Hyclate 100 Mg Tablet 100 Mg PO BID 7 Days Amox Tr-K Clv 500-125 Mg Tab (Amoxicillin/Potassium Clav) 1 Each Tablet 1 Tab PO QHS 7 Days Cozaar (Losartan Potassium) 50 Mg Tablet 50 Mg PO DAILY Flomax (Tamsulosin Hcl) 0.4 Mg Cap.er.24h 0.4 Mg PO QHS Reported Xanax (Alprazolam) 1 Mg Tablet 1 Tab PO TID Aspirin 81 Mg Tab.chew 81 Tab PO DAILY Metoprolol Tartrate 100 Mg Tablet 1 Tab PO BID Plavix (Clopidogrel Bisulfate) 75 Mg Tablet 75 PO DAILY Hydralazine Hcl 50 Mg Tablet 50 TID Nephro-Chilo Tablet (Folic Acid/Vitamin B Comp W-C) 0.8 Mg Tablet 1 Tab PO DAILY Paroxetine Hcl 20 Mg Tablet 40 Mg PO DAILY Tums (Calcium Carbonate) 200 Mg Tab.chew 800 Mg PO TIDAC Omeprazole Magnesium 20 Mg Capsule.dr 20 Mg PO DAILY Vitals/I & O Vital Sign - Last 24 Hours 12/13/18 12/13/18 12/13/18 12/13/18 09:00 09:17 09:30 10:00 Pulse 72 74 71 Resp 16 20 16 18 B/P (MAP) 168/77 (107) 188/79 (115) 179/81 (113) Pulse Ox 100 100 100 100 O2 Delivery Nasal Cannula Room Air Nasal Cannula Nasal Cannula O2 Flow Rate 2.0 2.0 2.0 2.0 12/13/18 12/13/18 12/13/18 12/13/18 10:30 11:10 12:00 12:57 Pulse 72 78 Resp 18 20 18 B/P (MAP) 183/84 (117) 197/83 (121) Pulse Ox 100 100 O2 Delivery Nasal Cannula Nasal Cannula Nasal Cannula Nasal Cannula O2 Flow Rate 2.0 2.0 2.0 2.0 12/13/18 12/13/18 12/13/18 12/13/18 13:27 20:45 21:17 21:18 Pulse 78 78 Resp 18 B/P (MAP) 197/83 197/83 O2 Delivery Nasal Cannula Room Air O2 Flow Rate 2.0 12/13/18 12/14/18 22:45 07:55 Temp 98.2 98.2 98.2 98.2 Pulse 64 57 Resp 16 16 B/P (MAP) 112/55 (74) 131/74 (93) Pulse Ox 99 100 O2 Delivery Room Air Room Air Intake and Output 12/13/18 12/13/18 12/14/18 15:01 23:01 07:01 Intake Total 500 ml 680 ml Balance 500 ml 680 ml MAMADOU VARELA MD Dec 14, 2018 08:42
[2018-12-14] MEDS: PANTOPRAZOLE 40 MG TABLET.DR. PO SCH (09:28)
[2018-12-14] MEDS: LOSARTAN POTASSIUM 50 MG TABLET. PO SCH (09:30)
[2018-12-14] MEDS: METOPROLOL TART IMMED RELEASE 50 MG TABLET. PO SCH ×2 (09:30→21:31)
[2018-12-14] MEDS: ASPIRIN CHEWABLE 81 MG TABLET. PO SCH (09:30)
[2018-12-14] MEDS: PARoxetine 20 MG TABLET PO SCH (09:31)
[2018-12-14] MEDS: CLOPIDOGREL BISULFATE 75 MG TABLET PO SCH (09:31)
[2018-12-14] MEDS: FOLIC/VIT B COMP W-C (RENAL) TABLET. PO SCH (09:31)
[2018-12-14] MEDS: ALPRAZolam 1 MG TABLET PO SCH (09:32)
[2018-12-14] MEDS: CALCIUM CARBONATE 500 MG TAB.CHEW PO SCH ×3 (09:32→16:49)
[2018-12-14 09:59] LABS: ALBUMIN 3.4 g/dL (3.4-5.0); CREATININE 6.4 mg/dL (0.7-1.3); GFR 8.9; PHOSPHORUS 5.7 mg/dL (2.6-4.7); POTASSIUM 4.8 mmol/L (3.5-5.1)
[2018-12-14 10:14] LABS: BASO # 0.1 x10^3/uL (0.0-0.2); BASO % 1 % (0-3); EOS # 0.1 x10^3/uL (0.0-0.7); EOS % 1 % (0-3); HEMATOCRIT 38.9 % (39.0-53.0); LYMPH # 0.6 x10^3/uL (1.0-4.8); LYMPH % 9 % (24-48); MEAN CORPUSCULAR HEMOGLOBIN 32 pg (25-35); MEAN CORPUSCULAR HGB CONC 33 g/dL (31-37); MEAN CORPUSCULAR VOLUME 96 fL (79-100); MONO # 0.9 x10^3/uL (0.0-1.1); MONO % 13 % (0-9); NEUT # 5.1 x10^3uL (1.8-7.7); NEUT % 76 % (31-73); PLATELET COUNT 184 x10^3/uL (140-400); RED BLOOD COUNT 4.04 x10^6/uL (4.30-5.70); RED CELL DISTRIBUTION WIDTH 15.1 % (11.5-14.5); WHITE BLOOD COUNT 6.8 x10^3/uL (4.0-11.0)
--- NOTE | 2018-12-14 10:41 | EKG ---
[facility] [address] [place] [address] Test Date: 2018-12-13 Test Time: 06:17:57 Pat Name: NGUYỄN OCONNOR Department: Room: 211 1 Gender: M Writing Manager: : [id number] Requested By: GRETEL LEDBETTER Order Number: [id number] Reading MD: Enio Robison Measurements Intervals [place] Rate: 79 P: -35 IL: 110 QRS: 34 QRSD: 102 T: -169 QT: 408 QTc: 474 Interpretive Statements SINUS RHYTHM ST & T ABNORMALITY, CONSIDER INFERIOR ISCHEMIA OR LEFT VENTRICULAR STRAIN T ABNORMALITY IN ANTEROLATERAL LEADS ABNORMAL ECG Electronically Signed On 12-18-2018 9:41:56 PROJECT ASSOCIATE by Enio Robison
--- NOTE | 2018-12-14 11:14 | PDOC ---
Renal-Progress Notes Subjective Notes Notes OCC BACK PAIN History of Present Illness Hx of present illness STABLE Vitals Vitals Vital Signs Date Time Temp Pulse Resp B/P (MAP) Pulse Ox O2 Delivery O2 Flow Rate FiO2 12/14/18 09:32 66 131/74 12/14/18 07:55 98.2 16 100 Room Air 98.2 12/13/18 13:27 2.0 Weight Weight [ ] I.O. Intake and Output Intake and Output 12/14/18 07:01 Intake Total 1180 ml Balance 1180 ml Intake Oral 1180 ml # Voids 1 Labs Labs Laboratory Tests Test 12/13/18 11:49 12/13/18 12:24 12/13/18 12:35 12/13/18 15:30 Glucose (Fingerstick) 63 mg/dL (70-99) 86 mg/dL (70-99) Troponin I Quantitative 0.098 ng/mL (0.000-0.055) 0.097 ng/mL (0.000-0.055) Test 12/13/18 21:13 12/14/18 05:00 12/14/18 08:02 Glucose (Fingerstick) 143 mg/dL (70-99) 86 mg/dL (70-99) White Blood Count 6.8 x10^3/uL (4.0-11.0) Red Blood Count 4.04 x10^6/uL (4.30-5.70) Hemoglobin 13.0 g/dL (13.0-17.5) Hematocrit 38.9 % (39.0-53.0) Mean Corpuscular Volume 96 fL (79-100) Mean Corpuscular Hemoglobin 32 pg (25-35) Mean Corpuscular Hemoglobin Concent 33 g/dL (31-37) Red Cell Distribution Width 15.1 % (11.5-14.5) Platelet Count 184 x10^3/uL (140-400) Neutrophils (%) (Auto) 76 % (31-73) Lymphocytes (%) (Auto) 9 % (24-48) Monocytes (%) (Auto) 13 % (0-9) Eosinophils (%) (Auto) 1 % (0-3) Basophils (%) (Auto) 1 % (0-3) Neutrophils # (Auto) 5.1 x10^3uL (1.8-7.7) Lymphocytes # (Auto) 0.6 x10^3/uL (1.0-4.8) Monocytes # (Auto) 0.9 x10^3/uL (0.0-1.1) Eosinophils # (Auto) 0.1 x10^3/uL (0.0-0.7) Basophils # (Auto) 0.1 x10^3/uL (0.0-0.2) Sodium Level 141 mmol/L (136-145) Potassium Level 4.8 mmol/L (3.5-5.1) Chloride Level 100 mmol/L (98-107) Carbon Dioxide Level 30 mmol/L (21-32) Anion Gap 11 (6-14) Blood Urea Nitrogen 37 mg/dL (8-26) Creatinine 6.4 mg/dL (0.7-1.3) Estimated GFR (Cockcroft-Gault) 8.9 Glucose Level 68 mg/dL (70-99) Calcium Level 9.0 mg/dL (8.5-10.1) Phosphorus Level 5.7 mg/dL (2.6-4.7) Troponin I Quantitative 0.077 ng/mL (0.000-0.055) Albumin 3.4 g/dL (3.4-5.0) Review of Systems Constitutional: yes: weakness, alert, oriented Ears/Nose/Throat: Yes: no symptom reported Eyes: Yes: no symptom reported Pulmonary: Yes no symptom reported Cardiovascular: Yes chest pain Gastrointestional: Yes: constipation Genitourinary: Yes: no symptom reported Musculoskeletal: Yes: back pain Skin: Yes no symptom reported Psychiatric/Neurological: Yes: no symptom reported Endocrine: Yes: no symptom reported Physical Exam General Appearance: no apparent distress Skin: warm Respiratory: bilateral CTA Heart: S1S2, RRR Abdomen: soft, bowel sounds present Genitourinary: bladder flat Extremities: pulses present Neurology: alert, oriented Assessment Assessment IMP CHEST PAIN DM II HTN ESRD ANEMIA PLAN CHEST PAIN W/U HD SATURDAY JAYDE CONTRERAS MD Dec 14, 2018 11:14
[2018-12-14 11:45] VITALS: BP 102/59
[2018-12-14] MEDS: HYDROcodone/APAP 5/325MG 1 TAB TABLET PO PRN ×2 (14:24→23:27)
--- NOTE | 2018-12-14 14:59 | PDOC ---
PROGRESS NOTES Subjective Subjective Patient seen and examined Objective Objective Vital Signs Date Time Temp Pulse Resp B/P (MAP) Pulse Ox O2 Delivery O2 Flow Rate FiO2 12/14/18 14:25 53 129/59 12/14/18 14:24 Room Air 12/14/18 11:45 98.2 18 100 98.2 12/13/18 13:27 2.0 Intake and Output 12/14/18 07:01 Intake Total 1180 ml Balance 1180 ml Intake Oral 1180 ml # Voids 1 Physical Exam Abdomen: Normal bowel sounds Heart: Regular rate General: No acute distress Lungs: Other (slightly decreased breath sounds) Assessment Assessment Problems Medical Problems: (1) Chest pain Status: Acute 1. Chest pain. History of bypass surgery. Pain has largely resolved. Peak troponin of 0.098 not consistent with an infarct. No acute ischemic EKG changes on EKG. We'll continue medications. Proceed with MPI testing tomorrow. 2. Acute diastolic heart failure. BNP significantly elevated. Continue baseline medications. Ejection fraction of 30% on echocardiogram and recheck pending. Fluid management primarily through dialysis. 3. End-stage renal disease. Hemodialysis as per the renal service. 4. Hypertension. Reasonably controlled. We'll adjust medications as needed. Comment Review of Relevant I have reviewed the following items dionte (where applicable) has been applied. Labs Laboratory Tests Test 12/13/18 06:28 12/13/18 11:49 12/13/18 12:24 12/13/18 12:35 White Blood Count 7.5 x10^3/uL (4.0-11.0) Red Blood Count 3.70 x10^6/uL (4.30-5.70) Hemoglobin 11.9 g/dL (13.0-17.5) Hematocrit 35.0 % (39.0-53.0) Mean Corpuscular Volume 95 fL (79-100) Mean Corpuscular Hemoglobin 32 pg (25-35) Mean Corpuscular Hemoglobin Concent 34 g/dL (31-37) Red Cell Distribution Width 14.8 % (11.5-14.5) Platelet Count 189 x10^3/uL (140-400) Neutrophils (%) (Auto) 76 % (31-73) Lymphocytes (%) (Auto) 10 % (24-48) Monocytes (%) (Auto) 12 % (0-9) Eosinophils (%) (Auto) 2 % (0-3) Basophils (%) (Auto) 1 % (0-3) Neutrophils # (Auto) 5.6 x10^3uL (1.8-7.7) Lymphocytes # (Auto) 0.8 x10^3/uL (1.0-4.8) Monocytes # (Auto) 0.9 x10^3/uL (0.0-1.1) Eosinophils # (Auto) 0.1 x10^3/uL (0.0-0.7) Basophils # (Auto) 0.1 x10^3/uL (0.0-0.2) Prothrombin Time 12.7 SEC (11.7-14.0) Prothromb Time International Ratio 1.0 (0.8-1.1) Sodium Level 138 mmol/L (136-145) Potassium Level 4.9 mmol/L (3.5-5.1) Chloride Level 99 mmol/L (98-107) Carbon Dioxide Level 22 mmol/L (21-32) Anion Gap 17 (6-14) Blood Urea Nitrogen 61 mg/dL (8-26) Creatinine 9.7 mg/dL (0.7-1.3) Estimated GFR (Cockcroft-Gault) 5.5 BUN/Creatinine Ratio 6 (6-20) Glucose Level 89 mg/dL (70-99) Calcium Level 8.7 mg/dL (8.5-10.1) Magnesium Level 2.6 mg/dL (1.8-2.4) Total Bilirubin 0.7 mg/dL (0.2-1.0) Aspartate Amino Transf (AST/SGOT) 18 U/L (15-37) Alanine Aminotransferase (ALT/SGPT) 16 U/L (16-63) Alkaline Phosphatase 68 U/L (46-116) Troponin I Quantitative 0.073 ng/mL (0.000-0.055) 0.098 ng/mL (0.000-0.055) EX-Qhd-O-Type Natriuretic Peptide > 58257 pg/mL (0-124) Total Protein 7.1 g/dL (6.4-8.2) Albumin 3.4 g/dL (3.4-5.0) Albumin/Globulin Ratio 0.9 (1.0-1.7) Glucose (Fingerstick) 63 mg/dL (70-99) 86 mg/dL (70-99) Test 12/13/18 15:30 12/13/18 21:13 12/14/18 05:00 12/14/18 08:02 Troponin I Quantitative 0.097 ng/mL (0.000-0.055) 0.077 ng/mL (0.000-0.055) Glucose (Fingerstick) 143 mg/dL (70-99) 86 mg/dL (70-99) White Blood Count 6.8 x10^3/uL (4.0-11.0) Red Blood Count 4.04 x10^6/uL (4.30-5.70) Hemoglobin 13.0 g/dL (13.0-17.5) Hematocrit 38.9 % (39.0-53.0) Mean Corpuscular Volume 96 fL (79-100) Mean Corpuscular Hemoglobin 32 pg (25-35) Mean Corpuscular Hemoglobin Concent 33 g/dL (31-37) Red Cell Distribution Width 15.1 % (11.5-14.5) Platelet Count 184 x10^3/uL (140-400) Neutrophils (%) (Auto) 76 % (31-73) Lymphocytes (%) (Auto) 9 % (24-48) Monocytes (%) (Auto) 13 % (0-9) Eosinophils (%) (Auto) 1 % (0-3) Basophils (%) (Auto) 1 % (0-3) Neutrophils # (Auto) 5.1 x10^3uL (1.8-7.7) Lymphocytes # (Auto) 0.6 x10^3/uL (1.0-4.8) Monocytes # (Auto) 0.9 x10^3/uL (0.0-1.1) Eosinophils # (Auto) 0.1 x10^3/uL (0.0-0.7) Basophils # (Auto) 0.1 x10^3/uL (0.0-0.2) Sodium Level 141 mmol/L (136-145) Potassium Level 4.8 mmol/L (3.5-5.1) Chloride Level 100 mmol/L (98-107) Carbon Dioxide Level 30 mmol/L (21-32) Anion Gap 11 (6-14) Blood Urea Nitrogen 37 mg/dL (8-26) Creatinine 6.4 mg/dL (0.7-1.3) Estimated GFR (Cockcroft-Gault) 8.9 Glucose Level 68 mg/dL (70-99) Calcium Level 9.0 mg/dL (8.5-10.1) Phosphorus Level 5.7 mg/dL (2.6-4.7) Albumin 3.4 g/dL (3.4-5.0) Test 12/14/18 11:46 12/14/18 12:08 Glucose (Fingerstick) 66 mg/dL (70-99) 84 mg/dL (70-99) Laboratory Tests Test 12/13/18 15:30 12/13/18 21:13 12/14/18 05:00 12/14/18 08:02 Troponin I Quantitative 0.097 ng/mL (0.000-0.055) 0.077 ng/mL (0.000-0.055) Glucose (Fingerstick) 143 mg/dL (70-99) 86 mg/dL (70-99) White Blood Count 6.8 x10^3/uL (4.0-11.0) Red Blood Count 4.04 x10^6/uL (4.30-5.70) Hemoglobin 13.0 g/dL (13.0-17.5) Hematocrit 38.9 % (39.0-53.0) Mean Corpuscular Volume 96 fL (79-100) Mean Corpuscular Hemoglobin 32 pg (25-35) Mean Corpuscular Hemoglobin Concent 33 g/dL (31-37) Red Cell Distribution Width 15.1 % (11.5-14.5) Platelet Count 184 x10^3/uL (140-400) Neutrophils (%) (Auto) 76 % (31-73) Lymphocytes (%) (Auto) 9 % (24-48) Monocytes (%) (Auto) 13 % (0-9) Eosinophils (%) (Auto) 1 % (0-3) Basophils (%) (Auto) 1 % (0-3) Neutrophils # (Auto) 5.1 x10^3uL (1.8-7.7) Lymphocytes # (Auto) 0.6 x10^3/uL (1.0-4.8) Monocytes # (Auto) 0.9 x10^3/uL (0.0-1.1) Eosinophils # (Auto) 0.1 x10^3/uL (0.0-0.7) Basophils # (Auto) 0.1 x10^3/uL (0.0-0.2) Sodium Level 141 mmol/L (136-145) Potassium Level 4.8 mmol/L (3.5-5.1) Chloride Level 100 mmol/L (98-107) Carbon Dioxide Level 30 mmol/L (21-32) Anion Gap 11 (6-14) Blood Urea Nitrogen 37 mg/dL (8-26) Creatinine 6.4 mg/dL (0.7-1.3) Estimated GFR (Cockcroft-Gault) 8.9 Glucose Level 68 mg/dL (70-99) Calcium Level 9.0 mg/dL (8.5-10.1) Phosphorus Level 5.7 mg/dL (2.6-4.7) Albumin 3.4 g/dL (3.4-5.0) Test 12/14/18 11:46 12/14/18 12:08 Glucose (Fingerstick) 66 mg/dL (70-99) 84 mg/dL (70-99) Medications Current Medications Nitroglycerin (Nitrostat) 0.4 mg PRN Q5MIN PRN SL CP RATING > 1/10 Last administered on 12/13/18at 07:08; Start 12/13/18 at 06:30; Stop 12/14/18 at 06:29 ; Status DC Morphine Sulfate (Morphine Sulfate) 2 mg PRN Q15MIN PRN IV/SQ PAIN GREATER THAN 3/10 Last administered on 12/13/18at 12:57; Start 12/13/18 at 06:30; Stop at 06:29; Status DC Lorazepam (Ativan) 1 mg 1X ONCE IV Last administered on 12/13/18at 09:27; Start 12/13/18 at 09:15; Stop 12/13/18 at 09:16; Status DC Ondansetron HCl (Zofran) 4 mg PRN Q8HRS PRN IV NAUSEA/VOMITING; Start 12/13/18 at 09:30; Stop 12/14/18 at 09:29; Status DC Morphine Sulfate (Morphine Sulfate) 2 mg PRN Q2HR PRN IV PAIN; Start 12/13/18 at 09:30; Stop 12/14/18 at 09:29; Status DC Alprazolam (Xanax) 1 mg TID PO Last administered on 12/14/18 09:32; Start at 14:00; Stop 12/14/18 at 13:50; Status DC Aspirin (Children'S Aspirin) 81 mg DAILY PO Last administered on 12/14/18 09: 30; Start 12/13/18 at 11:00 Calcium Carbonate/ Glycine (Tums) 1,000 mg TIDAC PO Last administered on 12:10; Start 12/13/18 at 11:30 Clopidogrel Bisulfate (Plavix) 75 mg DAILY PO Last administered on 12/14/18 09 :31; Start 12/13/18 at 11:00 Vitamin B Complex/ Vitamin C (Frances-Chilo) 1 tab DAILY PO Last administered on 09:31; Start 12/13/18 at 11:00 Losartan Potassium (Cozaar) 50 mg DAILY PO Last administered on 12/14/18 09:30 ; Start 12/13/18 at 11:00 Tamsulosin HCl (Flomax) 0.4 mg QHS PO Last administered on 12/13/18 21:17; Start 12/13/18 at 21:00 Hydralazine HCl (Apresoline) 50 mg TID PO Last administered on 12/14/18 14:25 ; Start 12/13/18 at 14:00 Metoprolol Tartrate (Lopressor) 100 mg BID PO Last administered on 12/14/18 09 :30; Start 12/13/18 at 11:00 Pantoprazole Sodium (Protonix) 40 mg DAILYAC PO Last administered on 12/14/18 09:28; Start 12/13/18 at 11:00 Paroxetine HCl (Paxil) 40 mg DAILY PO Last administered on 12/14/18 09:31; Start 12/13/18 at 11:00 Sodium Chloride 1,000 ml @ 1,000 mls/hr Q1H PRN IV hypotension; Start 12/13/18 at 11:52; Stop 12/13/18 at 17:51; Status DC Labetalol HCl (Normodyne Iv Push) 10 mg PRN Q1HR PRN IVP SBP > 180; Start 12/13 at 12:00; Stop 12/14/18 at 11:59; Status DC Sodium Chloride 1,000 ml @ 400 mls/hr Q2H30M PRN IV PATENCY; Start 12/13/18 at 11:52; Stop 12/13/18 at 23:51; Status DC Info (PHARMACY MONITORING -- do not chart) 1 each PRN DAILY PRN MC SEE COMMENTS ; Start 12/13/18 at 12:00 Info (PHARMACY MONITORING -- do not chart) 1 each PRN DAILY PRN MC SEE COMMENTS ; Start 12/13/18 at 12:00; Stop 12/13/18 at 12:00; Status DC Diphenhydramine HCl (Benadryl) 50 mg 1X ONCE IVP ; Start 12/13/18 at 16:00; Stop 12/13/18 at 16:01; Status DC Darbepoetin Percy (Aranesp) 60 mcg [id number] SQ ; Start 12/21/18 at 21:00 Alprazolam (Xanax) 0.5 mg PRN TID PRN PO anxiety; Start 12/14/18 at 14:00 Fentanyl Citrate (Fentanyl 2ml Vial) 25 mcg PRN Q4HRS PRN IV PAIN; Start at 14:00 Acetaminophen/ Hydrocodone Bitart (Lortab 5/325) 1 tab PRN Q6HRS PRN PO PAIN Last administered on 12/14/18at 14:24; Start 12/14/18 at 14:00 Active Scripts Active Doxycycline Hyclate 100 Mg Tablet 100 Mg PO BID 7 Days Amox Tr-K Clv 500-125 Mg Tab (Amoxicillin/Potassium Clav) 1 Each Tablet 1 Tab PO QHS 7 Days Cozaar (Losartan Potassium) 50 Mg Tablet 50 Mg PO DAILY Flomax (Tamsulosin Hcl) 0.4 Mg Cap.er.24h 0.4 Mg PO QHS Reported Xanax (Alprazolam) 1 Mg Tablet 1 Tab PO TID Aspirin 81 Mg Tab.chew 81 Tab PO DAILY Metoprolol Tartrate 100 Mg Tablet 1 Tab PO BID Plavix (Clopidogrel Bisulfate) 75 Mg Tablet 75 PO DAILY Hydralazine Hcl 50 Mg Tablet 50 TID Nephro-Chilo Tablet (Folic Acid/Vitamin B Comp W-C) 0.8 Mg Tablet 1 Tab PO DAILY Paroxetine Hcl 20 Mg Tablet 40 Mg PO DAILY Tums (Calcium Carbonate) 200 Mg Tab.chew 800 Mg PO TIDAC Omeprazole Magnesium 20 Mg Capsule.dr 20 Mg PO DAILY Vitals/I & O Vital Sign - Last 24 Hours 12/13/18 12/13/18 12/13/18 12/13/18 20:45 21:17 21:18 22:45 Temp 98.2 98.2 Pulse 78 78 64 Resp 16 B/P (MAP) 197/83 197/83 112/55 (74) Pulse Ox 99 O2 Delivery Room Air Room Air 12/14/18 12/14/18 12/14/18 12/14/18 07:55 09:30 09:30 09:32 Temp 98.2 98.2 Pulse 57 66 66 66 Resp 16 B/P (MAP) 131/74 (93) 131/74 131/74 131/74 Pulse Ox 100 O2 Delivery Room Air 12/14/18 12/14/18 12/14/18 11:45 14:24 14:25 Temp 98.2 98.2 Pulse 53 53 Resp 18 B/P (MAP) 102/59 (73) 129/59 Pulse Ox 100 O2 Delivery Room Air Room Air Intake and Output 12/13/18 12/13/18 12/14/18 15:01 23:01 07:01 Intake Total 500 ml 680 ml Balance 500 ml 680 ml NIHARIKA VENTURA MD Dec 14, 2018 14:59
[2018-12-14 15:40] VITALS: BP 129/59
[2018-12-14] MEDS: fentaNYL PF VIAL 100 MCG/2 ML VIAL IV PRN ×2 (16:52→21:32)
[2018-12-14] MEDS: ALPRAZolam 0.5 MG TABLET PO PRN ×2 (17:37→23:27)
--- NOTE | 2018-12-14 17:48 | CARD ---
MR#: [id number] Date of Study: 12/14/2018 Ordering Physician: NIHARIKA VIRGEN, Referring Physician: ARSALAN ESCAMILLA Tech: Annita Flores [facility] APPROVED REPORT EXAM: Two-dimensional and M-mode echocardiogram with Doppler and color Doppler. Other Information Quality : Good INDICATION Congestive Heart Failure Surgery/Intervention CABG: Date: 2016 2D DIMENSIONS RVDd2.3 (2.9-3.5cm)Left Atrium(2D)3.9 (1.6-4.0cm) IVSd1.2 (0.7-1.1cm)Aortic Root(2D)3.4 (2.0-3.7cm) LVDd5.3 (3.9-5.9cm)LVOT Diameter2.2 (1.8-2.4cm) PWd1.2 (0.7-1.1cm)LVDs4.0 (2.5-4.0cm) FS (%) 24.8 %SV65.8 ml Aortic Valve AoV Peak Nathanael.133.6cm/sAoV VTI27.2cm AO Peak GR.7.1mmHgLVOT VTI 14.87cm AO Mean GR.4mmHgAVA (VTI)2.00cm2 Mitral Valve MV E Bkwstuhk93.8cm/sMV DECEL ITIO096pn MV A Joylaqqr90.7cm/sE/A Ratio0.8 TDI Lateral E' P. V5.15cm/sMedial E' P. V4.18cm/s E/Lateral E'11.2E/Medial E'13.8 Pulmonary Vein S1 Osnacmrw85.8cm/sS2 Zjqlmmwx14.11cm/s D2 Alhfvwdy69.1cm/s LEFT VENTRICLE The left ventricle is normal size. There is mild concentric left ventricular hypertrophy. Left ventri teresa systolic function is mildly impaired. The Ejection Fraction is estimated at 40%. There is mild gl obal hypokinesis of the left ventricle. Transmitral Doppler flow pattern is Grade I-abnormal relaxati on pattern. RIGHT VENTRICLE The right ventricle is normal size. The right ventricular systolic function is normal. ATRIA The left atrium size is normal. The right atrium size is normal. The interatrial septum is intact wit h no evidence for an atrial septal defect or patent foramen ovale as noted on 2-D or Doppler imaging. AORTIC VALVE The aortic valve is calcified but opens well. Doppler and Color Flow revealed no significant aortic r egurgitation. There is no significant aortic valvular stenosis. MITRAL VALVE The mitral valve is calcified but opens well. Mitral annular calcification is mild to moderate. There is no evidence of mitral valve prolapse. There is no mitral valve stenosis. Doppler and Color-flow r evealed trace mitral regurgitation. TRICUSPID VALVE The tricuspid valve is normal in structure and function. Doppler and Color Flow revealed trace tricus pid regurgitation. There is no tricuspid valve stenosis. PULMONIC VALVE The pulmonic valve is not well visualized. Doppler and Color Flow revealed trace pulmonic valvular re gurgitation. There is no pulmonic valvular stenosis. GREAT VESSELS The aortic root is normal in size. The ascending aorta is not well seen. The IVC is normal in size an d collapses >50% with inspiration. PERICARDIAL EFFUSION There is no evidence of significant pericardial effusion. Critical Notification Critical Value: No <Conclusion> The left ventricle is normal size. Left ventricle systolic function is mildly impaired. The Ejection Fraction is estimated at 40%. There is mild global hypokinesis of the left ventricle. There is mild concentric left ventricular hypertrophy. There is no significant aortic valvular stenosis. Doppler and Color Flow revealed no significant aortic regurgitation. Doppler and Color-flow revealed trace mitral regurgitation. Doppler and Color Flow revealed trace tricuspid regurgitation. Signed by : Niharika Virgen MD Electronically Approved : 12/14/2018 17:47:03
[2018-12-14 19:00] VITALS: BP 144/64
[2018-12-14] MEDS: TAMSULOSIN 0.4 MG CAP.ER.24H. PO SCH (21:29)
[2018-12-14 22:29] VITALS: BP 158/82
[2018-12-15 06:32] LABS: BASO # 0.1 x10^3/uL (0.0-0.2); BASO % 2 % (0-3); EOS # 0.2 x10^3/uL (0.0-0.7); EOS % 3 % (0-3); HEMATOCRIT 38.9 % (39.0-53.0); HEMOGLOBIN 12.9 g/dL (13.0-17.5); MEAN CORPUSCULAR HEMOGLOBIN 32 pg (25-35); MEAN CORPUSCULAR HGB CONC 33 g/dL (31-37); MEAN CORPUSCULAR VOLUME 96 fL (79-100); NEUT # 5.4 x10^3uL (1.8-7.7); NEUT % 70 % (31-73); PLATELET COUNT 173 x10^3/uL (140-400); RED BLOOD COUNT 4.07 x10^6/uL (4.30-5.70); RED CELL DISTRIBUTION WIDTH 14.8 % (11.5-14.5); WHITE BLOOD COUNT 7.8 x10^3/uL (4.0-11.0)
[2018-12-15 06:38] LABS: LYMPH % 13 % (24-48); MONO % 13 % (0-9)
[2018-12-15 06:52] LABS: ALBUMIN 3.2 g/dL (3.4-5.0); CALCIUM 8.8 mg/dL (8.5-10.1); CREATININE 8.6 mg/dL (0.7-1.3); GFR 6.3; PHOSPHORUS 6.8 mg/dL (2.6-4.7); POTASSIUM 5.8 mmol/L (3.5-5.1)
[2018-12-15 07:00] VITALS: BP 139/62
[2018-12-15] MEDS ORDERED: REGADENOSON 0.4 MG/5 ML DISP.SYRIN. IV ONE (07:45)
[2018-12-15] MEDS: ASPIRIN CHEWABLE 81 MG TABLET. PO SCH (10:35)
[2018-12-15] MEDS: CLOPIDOGREL BISULFATE 75 MG TABLET PO SCH (10:35)
[2018-12-15] MEDS: PARoxetine 20 MG TABLET PO SCH (10:35)
[2018-12-15] MEDS: PANTOPRAZOLE 40 MG TABLET.DR. PO SCH (10:35)
[2018-12-15] MEDS: CALCIUM CARBONATE 500 MG TAB.CHEW PO SCH ×3 (10:35→16:46)
[2018-12-15] MEDS: LOSARTAN POTASSIUM 50 MG TABLET. PO SCH (10:37)
[2018-12-15] MEDS: FOLIC/VIT B COMP W-C (RENAL) TABLET. PO SCH (10:37)
[2018-12-15] MEDS: METOPROLOL TART IMMED RELEASE 50 MG TABLET. PO SCH ×2 (10:39→21:04)
[2018-12-15] MEDS: HYDROcodone/APAP 5/325MG 1 TAB TABLET PO PRN ×3 (10:40→23:03)
[2018-12-15 11:01] VITALS: BP 137/64
--- NOTE | 2018-12-15 11:27 | PDOC ---
PROGRESS NOTES Chief Complaint Chief Complaint Chest pain, history of CAD, CHF/vasculopath ESRD TTH S dialysis Anemia of ESRD anxiety NOS Accel HTN POA History of chronic pancreatitis History of diarrhea but that is resolved History of Present Illness History of Present Illness 63-year-old male known to our service, comes in because of chest pain while showering. He was actually on his way to dialysis at 4:30 or 5 AM the morning and had some midsternal sharp chest pain 10 out of 10 radiating to the left. No diaphoresis, no presyncopal symptoms. Known to Dr. Kiran but is not transfer service to our cardiology group. EKG and troponins negative. Got nitroglycerin 3 with relief and morphine and is currently chest pain-free. Vital signs: Blood pressure 10 to be on the high side. Admitted with cards consult. He thought it was initially reflux-took some Tums but no relief. He's concerned about blockage in his AV fistula area access. There is palpable bruit with good distal pulses. He did not get his dialysis 12/13/18 because of the chest pains. His HD days are 12/14: Overnight BP came down. He is c/o LBP and would like morphine. I have advised him we can use topical, fentanyl, hydrocodone, dilaudid safely in dialysis patients, so will change to fentanyl, hydrocodone today. Has some CP still, mild SOB, no GI complaints Overnight no events. Had stress test this mornin. Abnormal EKG with baseline septal infarct and alon-lateral TWI 2. Probable multivessel ischemia with lateral wall reversibility noted. 3. Severe LV dysfunction. EF 37% 4. High risk study His back pain is a bit improved with fentanyl prn, heat. Assessment/Plan Chest pain, history of CAD, CHF/ vasculopath - cards to see. Plan for Cath tomorrow ESRD TTH S dialysis - nephrology to see Anemia of ESRD - monitor Anxiety NOS - has chronic xanax, advised to downtitrate Accel HTN - better today History of chronic pancreatitis - back pain, meds as above History of diarrhea - resolved Hyperglycemia - monitor as he had a low blood sugar Back pain - improved with treatment FEN - Cardiac PPX - heparin FULL CODE Cont CVC, needs another night of inpatient care Vitals Vitals Vital Signs Date Time Temp Pulse Resp B/P (MAP) Pulse Ox O2 Delivery O2 Flow Rate FiO2 12/15/18 11:01 97.2 67 18 137/64 (88) 98 Room Air 97.2 Physical Exam General: Alert, No acute distress Heart: Regular rate Lungs: Crackles Abdomen: Normal bowel sounds Extremities: Other (left AV fistula with palpable bruit and good distal pulses) Skin: No breakdown Labs LABS Laboratory Tests Test 12/14/18 11:46 12/14/18 12:08 12/14/18 16:47 12/14/18 20:13 Glucose (Fingerstick) 66 mg/dL (70-99) 84 mg/dL (70-99) 91 mg/dL (70-99) 133 mg/dL (70-99) Test 12/15/18 06:28 12/15/18 07:37 White Blood Count 7.8 x10^3/uL (4.0-11.0) Red Blood Count 4.07 x10^6/uL (4.30-5.70) Hemoglobin 12.9 g/dL (13.0-17.5) Hematocrit 38.9 % (39.0-53.0) Mean Corpuscular Volume 96 fL (79-100) Mean Corpuscular Hemoglobin 32 pg (25-35) Mean Corpuscular Hemoglobin Concent 33 g/dL (31-37) Red Cell Distribution Width 14.8 % (11.5-14.5) Platelet Count 173 x10^3/uL (140-400) Neutrophils (%) (Auto) 70 % (31-73) Lymphocytes (%) (Auto) 13 % (24-48) Monocytes (%) (Auto) 13 % (0-9) Eosinophils (%) (Auto) 3 % (0-3) Basophils (%) (Auto) 2 % (0-3) Neutrophils # (Auto) 5.4 x10^3uL (1.8-7.7) Lymphocytes # (Auto) 1.0 x10^3/uL (1.0-4.8) Monocytes # (Auto) 1.0 x10^3/uL (0.0-1.1) Eosinophils # (Auto) 0.2 x10^3/uL (0.0-0.7) Basophils # (Auto) 0.1 x10^3/uL (0.0-0.2) Sodium Level 137 mmol/L (136-145) Potassium Level 5.8 mmol/L (3.5-5.1) Chloride Level 100 mmol/L (98-107) Carbon Dioxide Level 28 mmol/L (21-32) Anion Gap 9 (6-14) Blood Urea Nitrogen 50 mg/dL (8-26) Creatinine 8.6 mg/dL (0.7-1.3) Estimated GFR (Cockcroft-Gault) 6.3 Glucose Level 102 mg/dL (70-99) Calcium Level 8.8 mg/dL (8.5-10.1) Phosphorus Level 6.8 mg/dL (2.6-4.7) Albumin 3.2 g/dL (3.4-5.0) Glucose (Fingerstick) 97 mg/dL (70-99) Assessment and Plan Assessmemt and Plan Problems Medical Problems: (1) Chest pain Status: Acute Comment Review of Relevant I have reviewed the following items dionte (where applicable) has been applied. Labs Laboratory Tests Test 12/13/18 11:49 12/13/18 12:24 12/13/18 12:35 12/13/18 15:30 Glucose (Fingerstick) 63 mg/dL (70-99) 86 mg/dL (70-99) Troponin I Quantitative 0.098 ng/mL (0.000-0.055) 0.097 ng/mL (0.000-0.055) Test 12/13/18 21:13 12/14/18 05:00 12/14/18 08:02 12/14/18 11:46 Glucose (Fingerstick) 143 mg/dL (70-99) 86 mg/dL (70-99) 66 mg/dL (70-99) White Blood Count 6.8 x10^3/uL (4.0-11.0) Red Blood Count 4.04 x10^6/uL (4.30-5.70) Hemoglobin 13.0 g/dL (13.0-17.5) Hematocrit 38.9 % (39.0-53.0) Mean Corpuscular Volume 96 fL (79-100) Mean Corpuscular Hemoglobin 32 pg (25-35) Mean Corpuscular Hemoglobin Concent 33 g/dL (31-37) Red Cell Distribution Width 15.1 % (11.5-14.5) Platelet Count 184 x10^3/uL (140-400) Neutrophils (%) (Auto) 76 % (31-73) Lymphocytes (%) (Auto) 9 % (24-48) Monocytes (%) (Auto) 13 % (0-9) Eosinophils (%) (Auto) 1 % (0-3) Basophils (%) (Auto) 1 % (0-3) Neutrophils # (Auto) 5.1 x10^3uL (1.8-7.7) Lymphocytes # (Auto) 0.6 x10^3/uL (1.0-4.8) Monocytes # (Auto) 0.9 x10^3/uL (0.0-1.1) Eosinophils # (Auto) 0.1 x10^3/uL (0.0-0.7) Basophils # (Auto) 0.1 x10^3/uL (0.0-0.2) Sodium Level 141 mmol/L (136-145) Potassium Level 4.8 mmol/L (3.5-5.1) Chloride Level 100 mmol/L (98-107) Carbon Dioxide Level 30 mmol/L (21-32) Anion Gap 11 (6-14) Blood Urea Nitrogen 37 mg/dL (8-26) Creatinine 6.4 mg/dL (0.7-1.3) Estimated GFR (Cockcroft-Gault) 8.9 Glucose Level 68 mg/dL (70-99) Calcium Level 9.0 mg/dL (8.5-10.1) Phosphorus Level 5.7 mg/dL (2.6-4.7) Troponin I Quantitative 0.077 ng/mL (0.000-0.055) Albumin 3.4 g/dL (3.4-5.0) Test 12/14/18 12:08 12/14/18 16:47 12/14/18 20:13 12/15/18 06:28 Glucose (Fingerstick) 84 mg/dL (70-99) 91 mg/dL (70-99) 133 mg/dL (70-99) White Blood Count 7.8 x10^3/uL (4.0-11.0) Red Blood Count 4.07 x10^6/uL (4.30-5.70) Hemoglobin 12.9 g/dL (13.0-17.5) Hematocrit 38.9 % (39.0-53.0) Mean Corpuscular Volume 96 fL (79-100) Mean Corpuscular Hemoglobin 32 pg (25-35) Mean Corpuscular Hemoglobin Concent 33 g/dL (31-37) Red Cell Distribution Width 14.8 % (11.5-14.5) Platelet Count 173 x10^3/uL (140-400) Neutrophils (%) (Auto) 70 % (31-73) Lymphocytes (%) (Auto) 13 % (24-48) Monocytes (%) (Auto) 13 % (0-9) Eosinophils (%) (Auto) 3 % (0-3) Basophils (%) (Auto) 2 % (0-3) Neutrophils # (Auto) 5.4 x10^3uL (1.8-7.7) Lymphocytes # (Auto) 1.0 x10^3/uL (1.0-4.8) Monocytes # (Auto) 1.0 x10^3/uL (0.0-1.1) Eosinophils # (Auto) 0.2 x10^3/uL (0.0-0.7) Basophils # (Auto) 0.1 x10^3/uL (0.0-0.2) Sodium Level 137 mmol/L (136-145) Potassium Level 5.8 mmol/L (3.5-5.1) Chloride Level 100 mmol/L (98-107) Carbon Dioxide Level 28 mmol/L (21-32) Anion Gap 9 (6-14) Blood Urea Nitrogen 50 mg/dL (8-26) Creatinine 8.6 mg/dL (0.7-1.3) Estimated GFR (Cockcroft-Gault) 6.3 Glucose Level 102 mg/dL (70-99) Calcium Level 8.8 mg/dL (8.5-10.1) Phosphorus Level 6.8 mg/dL (2.6-4.7) Albumin 3.2 g/dL (3.4-5.0) Test 12/15/18 07:37 Glucose (Fingerstick) 97 mg/dL (70-99) Laboratory Tests Test 12/14/18 11:46 12/14/18 12:08 12/14/18 16:47 12/14/18 20:13 Glucose (Fingerstick) 66 mg/dL (70-99) 84 mg/dL (70-99) 91 mg/dL (70-99) 133 mg/dL (70-99) Test 12/15/18 06:28 12/15/18 07:37 White Blood Count 7.8 x10^3/uL (4.0-11.0) Red Blood Count 4.07 x10^6/uL (4.30-5.70) Hemoglobin 12.9 g/dL (13.0-17.5) Hematocrit 38.9 % (39.0-53.0) Mean Corpuscular Volume 96 fL (79-100) Mean Corpuscular Hemoglobin 32 pg (25-35) Mean Corpuscular Hemoglobin Concent 33 g/dL (31-37) Red Cell Distribution Width 14.8 % (11.5-14.5) Platelet Count 173 x10^3/uL (140-400) Neutrophils (%) (Auto) 70 % (31-73) Lymphocytes (%) (Auto) 13 % (24-48) Monocytes (%) (Auto) 13 % (0-9) Eosinophils (%) (Auto) 3 % (0-3) Basophils (%) (Auto) 2 % (0-3) Neutrophils # (Auto) 5.4 x10^3uL (1.8-7.7) Lymphocytes # (Auto) 1.0 x10^3/uL (1.0-4.8) Monocytes # (Auto) 1.0 x10^3/uL (0.0-1.1) Eosinophils # (Auto) 0.2 x10^3/uL (0.0-0.7) Basophils # (Auto) 0.1 x10^3/uL (0.0-0.2) Sodium Level 137 mmol/L (136-145) Potassium Level 5.8 mmol/L (3.5-5.1) Chloride Level 100 mmol/L (98-107) Carbon Dioxide Level 28 mmol/L (21-32) Anion Gap 9 (6-14) Blood Urea Nitrogen 50 mg/dL (8-26) Creatinine 8.6 mg/dL (0.7-1.3) Estimated GFR (Cockcroft-Gault) 6.3 Glucose Level 102 mg/dL (70-99) Calcium Level 8.8 mg/dL (8.5-10.1) Phosphorus Level 6.8 mg/dL (2.6-4.7) Albumin 3.2 g/dL (3.4-5.0) Glucose (Fingerstick) 97 mg/dL (70-99) Medications Current Medications Nitroglycerin (Nitrostat) 0.4 mg PRN Q5MIN PRN SL CP RATING > 1/10 Last administered on 12/13/18at 07:08; Start 12/13/18 at 06:30; Stop 12/14/18 at 06:29 ; Status DC Morphine Sulfate (Morphine Sulfate) 2 mg PRN Q15MIN PRN IV/SQ PAIN GREATER THAN 3/10 Last administered on 12/13/18at 12:57; Start 12/13/18 at 06:30; Stop at 06:29; Status DC Lorazepam (Ativan) 1 mg 1X ONCE IV Last administered on 12/13/18at 09:27; Start 12/13/18 at 09:15; Stop 12/13/18 at 09:16; Status DC Ondansetron HCl (Zofran) 4 mg PRN Q8HRS PRN IV NAUSEA/VOMITING; Start 12/13/18 at 09:30; Stop 12/14/18 at 09:29; Status DC Morphine Sulfate (Morphine Sulfate) 2 mg PRN Q2HR PRN IV PAIN; Start 12/13/18 at 09:30; Stop 12/14/18 at 09:29; Status DC Alprazolam (Xanax) 1 mg TID PO Last administered on 12/14/18at 09:32; Start at 14:00; Stop 12/14/18 at 13:50; Status DC Aspirin (Children'S Aspirin) 81 mg DAILY PO Last administered on 12/15/18at 10: 35; Start 12/13/18 at 11:00 Calcium Carbonate/ Glycine (Tums) 1,000 mg TIDAC PO Last administered on at 10:35; Start 12/13/18 at 11:30 Clopidogrel Bisulfate (Plavix) 75 mg DAILY PO Last administered on 12/15/18at 10 :35; Start 12/13/18 at 11:00 Vitamin B Complex/ Vitamin C (Frances-Chilo) 1 tab DAILY PO Last administered on at 10:37; Start 12/13/18 at 11:00 Losartan Potassium (Cozaar) 50 mg DAILY PO Last administered on 12/15/18at 10:37 ; Start 12/13/18 at 11:00 Tamsulosin HCl (Flomax) 0.4 mg QHS PO Last administered on 12/14/18at 21:29; Start 12/13/18 at 21:00 Hydralazine HCl (Apresoline) 50 mg TID PO Last administered on 12/15/18at 10:38 ; Start 12/13/18 at 14:00 Metoprolol Tartrate (Lopressor) 100 mg BID PO Last administered on 12/15/18at 10 :39; Start 12/13/18 at 11:00 Pantoprazole Sodium (Protonix) 40 mg DAILYAC PO Last administered on 12/15/18at 10:35; Start 12/13/18 at 11:00 Paroxetine HCl (Paxil) 40 mg DAILY PO Last administered on 12/15/18at 10:35; Start 12/13/18 at 11:00 Sodium Chloride 1,000 ml @ 1,000 mls/hr Q1H PRN IV hypotension; Start 12/13/18 at 11:52; Stop 12/13/18 at 17:51; Status DC Labetalol HCl (Normodyne Iv Push) 10 mg PRN Q1HR PRN IVP SBP > 180; Start 12/13 at 12:00; Stop 12/14/18 at 11:59; Status DC Sodium Chloride 1,000 ml @ 400 mls/hr Q2H30M PRN IV PATENCY; Start 12/13/18 at 11:52; Stop 12/13/18 at 23:51; Status DC Info (PHARMACY MONITORING -- do not chart) 1 each PRN DAILY PRN MC SEE COMMENTS ; Start 12/13/18 at 12:00 Info (PHARMACY MONITORING -- do not chart) 1 each PRN DAILY PRN MC SEE COMMENTS ; Start 12/13/18 at 12:00; Stop 12/13/18 at 12:00; Status DC Diphenhydramine HCl (Benadryl) 50 mg 1X ONCE IVP ; Start 12/13/18 at 16:00; Stop 12/13/18 at 16:01; Status DC Darbepoetin Percy (Aranesp) 60 mcg WEEKLYHS SQ ; Start 12/21/18 at 21:00 Alprazolam (Xanax) 0.5 mg PRN TID PRN PO anxiety Last administered on at 23:27; Start 12/14/18 at 14:00 Fentanyl Citrate (Fentanyl 2ml Vial) 25 mcg PRN Q4HRS PRN IV PAIN Last administered on 12/14/18at 21:32; Start 12/14/18 at 14:00 Acetaminophen/ Hydrocodone Bitart (Lortab 5/325) 1 tab PRN Q6HRS PRN PO PAIN Last administered on 12/15/18at 10:40; Start 12/14/18 at 14:00 Regadenoson (Lexiscan) 0.4 mg 1X ONCE IV Last administered on 12/15/18at 09:08 ; Start 12/15/18 at 07:45; Stop 12/15/18 at 07:46; Status DC Active Scripts Active Doxycycline Hyclate 100 Mg Tablet 100 Mg PO BID 7 Days Amox Tr-K Clv 500-125 Mg Tab (Amoxicillin/Potassium Clav) 1 Each Tablet 1 Tab PO QHS 7 Days Cozaar (Losartan Potassium) 50 Mg Tablet 50 Mg PO DAILY Flomax (Tamsulosin Hcl) 0.4 Mg Cap.er.24h 0.4 Mg PO QHS Reported Xanax (Alprazolam) 1 Mg Tablet 1 Tab PO TID Aspirin 81 Mg Tab.chew 81 Tab PO DAILY Metoprolol Tartrate 100 Mg Tablet 1 Tab PO BID Plavix (Clopidogrel Bisulfate) 75 Mg Tablet 75 PO DAILY Hydralazine Hcl 50 Mg Tablet 50 TID Nephro-Chilo Tablet (Folic Acid/Vitamin B Comp W-C) 0.8 Mg Tablet 1 Tab PO DAILY Paroxetine Hcl 20 Mg Tablet 40 Mg PO DAILY Tums (Calcium Carbonate) 200 Mg Tab.chew 800 Mg PO TIDAC Omeprazole Magnesium 20 Mg Capsule.dr 20 Mg PO DAILY Vitals/I & O Vital Sign - Last 24 Hours 12/14/18 12/14/18 12/14/18 12/14/18 11:45 14:24 14:25 15:40 Temp 98.2 98.0 98.2 98.0 Pulse 53 53 57 Resp 18 16 B/P (MAP) 102/59 (73) 129/59 129/59 (82) Pulse Ox 100 100 O2 Delivery Room Air Room Air Room Air 12/14/18 12/14/18 12/14/18 12/14/18 16:52 19:00 20:00 21:30 Temp 98.0 98.0 Pulse 54 58 Resp 17 B/P (MAP) 144/64 (90) 144/64 Pulse Ox 100 O2 Delivery Room Air Room Air Room Air 12/14/18 12/14/18 12/14/18 12/14/18 21:31 21:32 22:02 22:29 Temp 98.2 98.2 Pulse 58 58 Resp 20 18 17 B/P (MAP) 144/64 158/82 (107) Pulse Ox 100 96 96 O2 Delivery Room Air Room Air Room Air 12/14/18 12/15/18 12/15/18 12/15/18 23:27 00:27 07:00 07:45 Temp 97.2 97.2 Pulse 52 Resp 18 18 18 B/P (MAP) 139/62 (87) Pulse Ox 96 96 97 O2 Delivery Room Air Room Air Room Air Room Air 12/15/18 12/15/18 12/15/18 12/15/18 10:37 10:38 10:39 10:40 Pulse 55 55 55 B/P (MAP) 137/64 137/64 137/64 O2 Delivery Room Air 12/15/18 11:01 Temp 97.2 97.2 Pulse 67 Resp 18 B/P (MAP) 137/64 (88) Pulse Ox 98 O2 Delivery Room Air Intake and Output 12/14/18 12/14/18 12/15/18 15:01 23:01 07:01 Intake Total 120 ml 300 ml Output Total 200 ml Balance 120 ml 100 ml MAMADOU VARELA MD Dec 15, 2018 11:27
--- NOTE | 2018-12-15 11:48 | RAD ---
MR#: [id number] Date of Study: 12/15/2018 Ordering Physician: NIHARIKA VENTURA, Referring Physician: MELO HUERTA Tech: RT Jaylon Fowler) (N) APPROVED REPORT Test Type: Pharmacological Stress Nurse/Tech: Becky Santiago RN Test Indications: Chest pain 2 days ago Cardiac History: Hypertension,dialysis, CABG x5 Medications: See Electronic Medical Record Medical History: See Electronic Medical Record Resting ECG: SB with BBB Resting Heart Rate: 53 bpm Resting Blood Pressure: 145/69mmHg Pretest Chest Pain: No chest pain Nurse/Tech Notes S1,S2 and lungs are clear to ascultation. Consent: The procedure was explained to the patient in lay terms. Informed consent was witnessed. Dante eout was entered into [employer]. History and Stress Test performed by RT Jaylon Fowler) (N) Pharm. Details Pharmacologic stress testing was performed using 0.4mg per 5ml of regadenoson given intravenously ove r 7-10 seconds. Stress Symptoms Dyspnea POST EXERCISE Reason for Termination: Infusion complete Target HR: No Max HR: 66 bpm Max Blood Pressure: 127/54mmHg Blood Pressure response to exercise: Normal blood pressure response during stress. Heart Rate response to exercise: WNL Chest Pain: No. Arrhythmia: No. ST Change: No. INTERPRETATION Stress EKG Conclusion: SR with prior septal infarct, diffuse anterolateral TWI suggestive of ischemia . Imaging Protocol IMAGE PROTOCOL: Rest Tc-99m/stress Tc-99m 1 day Rest: Stress: Viability: Radiopharm.Tc99m TsvvcerctFo29k Sestamibi Heyy81vZa 33mCi Duration 13min. 13min. Img Date 12/15/2018 12/15/2018 Inj-Img Evtr65azp. 60min. Rest Admin Site:IV - Right WristAdministrator:RT Janeth (Alberto)(N) Stress Admin Site: IV - Right WristAdministrator: RT Jaylon Fowler)(N) STRESS DATA End Diast. Vol.184.0mlLVEDV index YHI303.0ml End Syst. Vol.116.0mlLVESV index BSA66.0ml Myocardial Lzbr523.0gEject. Nflybsit02.0% Stress Scores Regional WT3.00Summed WT41.00 Regional WM0.00Summed WM23.00 LV Perfusion There is a large sized, mild to moderate severity FULLY REVERSIBLE lateral wall defect suggestive of impaired perfusion reserve in the LCx territory There is a moderate sized, severe in intensity, FIXED defect involving the basal to mid inferior wall suggestive of prior infarct. Wall Motion Severe LV dysfunction with TID of 1.32. LV Perf. Quant 17 Seg. SSS10.00 17 Seg. SRS4.00 17 Seg. SDS10.00 Stress Defect Extent (% LAD)1.90Rest Defect Extent (% LAD)0.00Rev. Defect Extent (% LAD)0.00 Stress Defect Extent (% LCX) 83.80Rest Defect Extent (% LCX)0.00Rev. Defect Extent (% LCX)82.50 Stress Defect Extent (% RCA)0.00Rest Defect Extent (% RCA)27.80Rev. Defect Extent (% RCA)0.00 Stress Defect Extent (% MERCY)20.00Rest Defect Extent (% MERCY)7.80Rev. Defect Extent (% MERCY)18.30 Other Information Quality:Good Risk Assessment: High Risk Conclusion 1. Abnormal EKG with baseline septal infarct and alon-lateral TWI 2. Probable multivessel ischemia with lateral wall reversibility noted. 3. Severe LV dysfunction. EF 37% 4. High risk study Recommendations Consider coronary angiography Signed by : Ever Eli, Electronically Approved : 12/15/2018 11:46:48
--- NOTE | 2018-12-15 12:38 | NUR ---
SS following for with discharge planning. SS reviewed pt chart and met with pt's RN. Pt is from home with spouse and currently on room air. No PT/OT evaluations at this time. No discharge needs noted at this time. SS will continue to follow for pending discharge needs.
[2018-12-15] MEDS: ALPRAZolam 0.5 MG TABLET PO PRN ×2 (14:23→23:02)
[2018-12-15 15:17] VITALS: BP 150/64
--- NOTE | 2018-12-15 16:34 | PDOC ---
CARDIO Progress Notes Date and Time Date of Service 12/15/18 Time of Evaluation 1420 Subjective Subjective: No Chest Pain, No shortness of breath Vitals Vitals Vital Signs Date Time Temp Pulse Resp B/P (MAP) Pulse Ox O2 Delivery O2 Flow Rate FiO2 12/15/18 15:17 97.5 50 18 150/64 (92) 99 Room Air 97.5 Weight Weight [ ] Input and Output Intake and Output Intake and Output 12/15/18 07:01 Intake Total 420 ml Output Total 200 ml Balance 220 ml Intake Oral 420 ml Output Urine Total 200 ml # Voids 3 Laboratory Labs Laboratory Tests Test 12/14/18 16:47 12/14/18 20:13 12/15/18 06:28 12/15/18 07:37 Glucose (Fingerstick) 91 mg/dL (70-99) 133 mg/dL (70-99) 97 mg/dL (70-99) White Blood Count 7.8 x10^3/uL (4.0-11.0) Red Blood Count 4.07 x10^6/uL (4.30-5.70) Hemoglobin 12.9 g/dL (13.0-17.5) Hematocrit 38.9 % (39.0-53.0) Mean Corpuscular Volume 96 fL (79-100) Mean Corpuscular Hemoglobin 32 pg (25-35) Mean Corpuscular Hemoglobin Concent 33 g/dL (31-37) Red Cell Distribution Width 14.8 % (11.5-14.5) Platelet Count 173 x10^3/uL (140-400) Neutrophils (%) (Auto) 70 % (31-73) Lymphocytes (%) (Auto) 13 % (24-48) Monocytes (%) (Auto) 13 % (0-9) Eosinophils (%) (Auto) 3 % (0-3) Basophils (%) (Auto) 2 % (0-3) Neutrophils # (Auto) 5.4 x10^3uL (1.8-7.7) Lymphocytes # (Auto) 1.0 x10^3/uL (1.0-4.8) Monocytes # (Auto) 1.0 x10^3/uL (0.0-1.1) Eosinophils # (Auto) 0.2 x10^3/uL (0.0-0.7) Basophils # (Auto) 0.1 x10^3/uL (0.0-0.2) Sodium Level 137 mmol/L (136-145) Potassium Level 5.8 mmol/L (3.5-5.1) Chloride Level 100 mmol/L (98-107) Carbon Dioxide Level 28 mmol/L (21-32) Anion Gap 9 (6-14) Blood Urea Nitrogen 50 mg/dL (8-26) Creatinine 8.6 mg/dL (0.7-1.3) Estimated GFR (Cockcroft-Gault) 6.3 Glucose Level 102 mg/dL (70-99) Calcium Level 8.8 mg/dL (8.5-10.1) Phosphorus Level 6.8 mg/dL (2.6-4.7) Albumin 3.2 g/dL (3.4-5.0) Test 12/15/18 11:41 Glucose (Fingerstick) 148 mg/dL (70-99) Review of Systems Constitutional: yes: weakness, alert, oriented Ears/Nose/Throat: Yes: no symptom reported Eyes: Yes: no symptom reported Pulmonary: Yes no symptom reported Cardiovascular: Yes chest pain Gastrointestional: Yes: constipation Genitourinary: Yes: no symptom reported Musculoskeletal: Yes: back pain Skin: Yes no symptom reported Psychiatric/Neurological: Yes: no symptom reported Endocrine: Yes: no symptom reported Physical Exam HEENT: Neck Supple W Full Motion Chest: Symmetric LUNGS: Clear to Auscultation Heart: S1S2, RRR, no murmurs Abdomen: Soft N/T Extremities: No Edema Neurology: alert, oriented, follow commands Assessment Assessment 1. Chest pain, mixed features. MPI notable for probable multivessel ischemia with lateral wall reversibility noted 2. Mild troponin elevation; peak 0.098 3. CAD s/p previous CABG 4. Acute on chronic systolic HF. Fluid management primarily through dialysis. 5. ICM; LVEF 40% per echo 6. Hypertension 7. ESRD on HD Recommendations check lipids, add statin Continue antiplatelet, BB, and ARB. Fluid offloading/management via HD as per nephrology. Given presentation, h/o CAD, and abnormal MPI, will plan for cardiac cath with possible PCI in am NELLIEO ALIYAH Fuentes APRN Dec 15, 2018 16:34
[2018-12-15] MEDS: CALCIUM ACETATE 667 MG CAPSULE PO SCH (16:46)
[2018-12-15 19:45] VITALS: BP 143/65
[2018-12-15] MEDS: ATORVASTATIN CALCIUM 40 MG TABLET. PO SCH (21:03)
[2018-12-15] MEDS: TAMSULOSIN 0.4 MG CAP.ER.24H. PO SCH (21:03)
[2018-12-15] MEDS: fentaNYL PF VIAL 100 MCG/2 ML VIAL IV PRN (21:04)
[2018-12-15 23:01] VITALS: BP 161/69
[2018-12-16] VITALS (7 sets, daily range): BP systolic 106–158; BP diastolic 52–72
[2018-12-16 04:53] LABS: BASO # 0.1 x10^3/uL (0.0-0.2); BASO % 1 % (0-3); EOS # 0.2 x10^3/uL (0.0-0.7); EOS % 3 % (0-3); HEMATOCRIT 35.9 % (39.0-53.0); HEMOGLOBIN 12.1 g/dL (13.0-17.5); LYMPH # 0.8 x10^3/uL (1.0-4.8); LYMPH % 11 % (24-48); MEAN CORPUSCULAR HEMOGLOBIN 32 pg (25-35); MEAN CORPUSCULAR HGB CONC 34 g/dL (31-37); MEAN CORPUSCULAR VOLUME 96 fL (79-100); MONO % 14 % (0-9); NEUT # 5.2 x10^3uL (1.8-7.7); NEUT % 72 % (31-73); PLATELET COUNT 175 x10^3/uL (140-400); RED BLOOD COUNT 3.74 x10^6/uL (4.30-5.70); RED CELL DISTRIBUTION WIDTH 14.8 % (11.5-14.5); WHITE BLOOD COUNT 7.3 x10^3/uL (4.0-11.0)
[2018-12-16 05:19] LABS: ALBUMIN 3.2 g/dL (3.4-5.0); CALCIUM 8.8 mg/dL (8.5-10.1); CREATININE 10.7 mg/dL (0.7-1.3); GFR 4.9; PHOSPHORUS 8.8 mg/dL (2.6-4.7)
[2018-12-16 05:20] LABS: CHOLESTEROL/HDL RATIO 1.9
[2018-12-16] MEDS: CALCIUM CARBONATE 500 MG TAB.CHEW PO SCH ×3 (07:30→16:30)
[2018-12-16] MEDS: PANTOPRAZOLE 40 MG TABLET.DR. PO SCH (07:30)
[2018-12-16] MEDS: CALCIUM ACETATE 667 MG CAPSULE PO SCH ×3 (08:00→17:00)
[2018-12-16] MEDS: ASPIRIN CHEWABLE 81 MG TABLET. PO SCH (09:00)
[2018-12-16] MEDS: CLOPIDOGREL BISULFATE 75 MG TABLET PO SCH (09:00)
[2018-12-16] MEDS: ALPRAZolam 0.5 MG TABLET PO PRN ×3 (09:00→23:57)
[2018-12-16] MEDS: PARoxetine 20 MG TABLET PO SCH (09:00)
[2018-12-16] MEDS: FOLIC/VIT B COMP W-C (RENAL) TABLET. PO SCH (09:00)
[2018-12-16] MEDS: METOPROLOL TART IMMED RELEASE 50 MG TABLET. PO SCH ×3 (09:00→23:57)
[2018-12-16] MEDS: LOSARTAN POTASSIUM 50 MG TABLET. PO SCH (09:00)
[2018-12-16] MEDS ORDERED: diphenhydrAMINE 50 MG/ML VIAL IVP ONE ×2 (09:45→16:30)
--- NOTE | 2018-12-16 10:06 | PDOC ---
SUBJECTIVE ROS States feeling better. Denies CP/sob currently. 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, 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- 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 today Anemia- Hgb at goal, Aranesp as per protocol Chest pain s/p MPI - scheduled for Cardiac cath today CAD s/p previous CABG Acute on chronic systolic HF ICM; LVEF 40% per echo COMMENT/RELEVANT DATA Meds Current Medications Medications (Trade) Dose Ordered Sig/Cirilo Start Time Stop Time Status Last Admin Dose Admin Acetaminophen/ Hydrocodone Bitart (Lortab 5/325) 1 tab PRN Q6HRS PRN 12/14/18 14:00 12/15/18 23:03 1 TAB Alprazolam (Xanax) 0.5 mg PRN TID PRN 12/14/18 14:00 12/16/18 09:00 0.5 MG Aspirin (Children'S Aspirin) 81 mg DAILY 12/13/18 11:00 12/15/18 10:35 81 MG Atorvastatin Calcium (Lipitor) 40 mg QHS 12/15/18 21:00 12/15/18 21:03 40 MG Calcium Acetate (Phoslo) 1,334 mg TIDWMEALS 12/15/18 17:00 12/15/18 16:46 1,334 MG Calcium Carbonate/ Glycine (Tums) 1,000 mg TIDAC 12/13/18 11:30 12/15/18 16:46 1,000 MG Clopidogrel Bisulfate (Plavix) 75 mg DAILY 12/13/18 11:00 12/15/18 10:35 75 MG Darbepoetin Percy (Aranesp) 60 mcg WEEKLYHS 12/21/18 21:00 Diphenhydramine HCl (Benadryl) 25 mg 1X ONCE 12/16/18 09:45 12/16/18 09:46 DC Fentanyl Citrate (Fentanyl 2ml Vial) 25 mcg PRN Q4HRS PRN 12/14/18 14:00 12/15/18 21:04 25 MCG Hydralazine HCl (Apresoline) 50 mg TID 12/13/18 14:00 12/15/18 21:03 50 MG Info (PHARMACY MONITORING -- do not chart) 1 each PRN DAILY PRN 12/13/18 12:00 12/13/18 12:00 DC Labetalol HCl (Normodyne Iv Push) 10 mg PRN Q1HR PRN 12/13/18 12:00 12/14/18 11:59 DC Lorazepam (Ativan) 1 mg 1X ONCE 12/13/18 09:15 12/13/18 09:16 DC 12/13/18 09:27 1 MG Losartan Potassium (Cozaar) 50 mg DAILY 12/13/18 11:00 12/15/18 10:37 50 MG Metoprolol Tartrate (Lopressor) 100 mg BID 12/13/18 11:00 12/15/18 21:04 100 MG Morphine Sulfate (Morphine Sulfate) 2 mg PRN Q2HR PRN 12/13/18 09:30 12/14/18 09:29 DC Nitroglycerin (Nitrostat) 0.4 mg PRN Q5MIN PRN 12/13/18 06:30 12/14/18 06:29 DC 12/13/18 07:08 0.4 MG Ondansetron HCl (Zofran) 4 mg PRN Q8HRS PRN 12/13/18 09:30 12/14/18 09:29 DC Pantoprazole Sodium (Protonix) 40 mg DAILYAC 12/13/18 11:00 12/15/18 10:35 40 MG Paroxetine HCl (Paxil) 40 mg DAILY 12/13/18 11:00 12/15/18 10:35 40 MG Regadenoson (Lexiscan) 0.4 mg 1X ONCE 12/15/18 07:45 12/15/18 07:46 DC 12/15/18 09:08 0.4 MG Sodium Chloride 1,000 ml @ 400 mls/hr Q2H30M PRN 12/13/18 11:52 12/13/18 23:51 DC Tamsulosin HCl (Flomax) 0.4 mg QHS 12/13/18 21:00 12/15/18 21:03 0.4 MG Vitamin B Complex/ Vitamin C (Frances-Chilo) 1 tab DAILY 12/13/18 11:00 12/15/18 10:37 1 TAB Lab Laboratory Tests Test 12/15/18 11:41 12/15/18 16:32 12/15/18 21:00 12/16/18 04:20 Glucose (Fingerstick) 148 mg/dL (70-99) 114 mg/dL (70-99) 112 mg/dL (70-99) White Blood Count 7.3 x10^3/uL (4.0-11.0) Red Blood Count 3.74 x10^6/uL (4.30-5.70) Hemoglobin 12.1 g/dL (13.0-17.5) Hematocrit 35.9 % (39.0-53.0) Mean Corpuscular Volume 96 fL (79-100) Mean Corpuscular Hemoglobin 32 pg (25-35) Mean Corpuscular Hemoglobin Concent 34 g/dL (31-37) Red Cell Distribution Width 14.8 % (11.5-14.5) Platelet Count 175 x10^3/uL (140-400) Neutrophils (%) (Auto) 72 % (31-73) Lymphocytes (%) (Auto) 11 % (24-48) Monocytes (%) (Auto) 14 % (0-9) Eosinophils (%) (Auto) 3 % (0-3) Basophils (%) (Auto) 1 % (0-3) Neutrophils # (Auto) 5.2 x10^3uL (1.8-7.7) Lymphocytes # (Auto) 0.8 x10^3/uL (1.0-4.8) Monocytes # (Auto) 1.0 x10^3/uL (0.0-1.1) Eosinophils # (Auto) 0.2 x10^3/uL (0.0-0.7) Basophils # (Auto) 0.1 x10^3/uL (0.0-0.2) Sodium Level 140 mmol/L (136-145) Potassium Level 6.0 mmol/L (3.5-5.1) Chloride Level 100 mmol/L (98-107) Carbon Dioxide Level 28 mmol/L (21-32) Anion Gap 12 (6-14) Blood Urea Nitrogen 62 mg/dL (8-26) Creatinine 10.7 mg/dL (0.7-1.3) Estimated GFR (Cockcroft-Gault) 4.9 Glucose Level 82 mg/dL (70-99) Calcium Level 8.8 mg/dL (8.5-10.1) Phosphorus Level 8.8 mg/dL (2.6-4.7) Albumin 3.2 g/dL (3.4-5.0) Triglycerides Level 70 mg/dL (0-150) Cholesterol Level 136 mg/dL (0-200) LDL Cholesterol, Calculated 52 mg/dL (0-100) VLDL Cholesterol, Calculated 14 mg/dL (0-40) Non-HDL Cholesterol Calculated 66 mg/dL (0-129) HDL Cholesterol 70 mg/dL (40-60) Cholesterol/HDL Ratio 1.9 Test 12/16/18 07:50 Glucose (Fingerstick) 98 mg/dL (70-99) Results All relevant outside records, renal labs, imaging studies, telemetry/EKG's were reviewed. PLACIDO MENDOZA MD Dec 16, 2018 10:06
[2018-12-16] MEDS ORDERED: IV NORMAL SALINE 1000ML BAG 1,000 ML IV PRN (10:08)
[2018-12-16] MEDS ORDERED: DIALYSIS PATIENT. MC PRN ×2 (10:15)
[2018-12-16] MEDS ORDERED: IODIXANOL 320 MG/ML 100 ML VIAL. ONE ×3 (11:03→15:28)
[2018-12-16] MEDS ORDERED: LIDOCAINE 1% PF 2 ML VIAL. ONE (11:03)
[2018-12-16] MEDS ORDERED: fentaNYL PF VIAL 100 MCG/2 ML VIAL ONE (13:34)
[2018-12-16] MEDS ORDERED: MIDAZOLAM HCL/PF 2 MG/2 ML VIAL. ONE (13:34)
[2018-12-16] MEDS ORDERED: LIDOCAINE 1% Multi-Dose 20 ML VIAL. ONE (13:37)
--- NOTE | 2018-12-16 13:59 | PDOC ---
PROGRESS NOTES Chief Complaint Chief Complaint Chest pain, history of CAD, CHF/vasculopath ESRD TTH S dialysis Anemia of ESRD anxiety NOS Accel HTN POA History of chronic pancreatitis History of diarrhea but that is resolved History of Present Illness History of Present Illness 63-year-old male known to our service, comes in because of chest pain while showering. He was actually on his way to dialysis at 4:30 or 5 AM the morning and had some midsternal sharp chest pain 10 out of 10 radiating to the left. No diaphoresis, no presyncopal symptoms. Known to Dr. Kiran but is not transfer service to our cardiology group. EKG and troponins negative. Got nitroglycerin 3 with relief and morphine and is currently chest pain-free. Vital signs: Blood pressure 10 to be on the high side. Admitted with cards consult. He thought it was initially reflux-took some Tums but no relief. He's concerned about blockage in his AV fistula area access. There is palpable bruit with good distal pulses. He did not get his dialysis 12/13/18 because of the chest pains. His HD days are 12/14: Overnight BP came down. He is c/o LBP and would like morphine. I have advised him we can use topical, fentanyl, hydrocodone, dilaudid safely in dialysis patients, so will change to fentanyl, hydrocodone today. Has some CP still, mild SOB, no GI complaints 12/15: Stress test:1. Abnormal EKG with baseline septal infarct and alon- lateral TWI, 2. Probable multivessel ischemia with lateral wall reversibility noted. 3. Severe LV dysfunction. EF 37% 4. High risk study. His back pain is a bit improved with fentanyl prn, heat. 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 Post cath care ESRD TT S dialysis - nephrology to see Anemia of ESRD - monitor Anxiety NOS - has chronic xanax, advised to downtitrate Accel HTN - better today History of chronic pancreatitis - back pain, meds as above History of diarrhea - resolved Hyperglycemia - monitor as he had a low blood sugar Back pain - improved with treatment FEN - Cardiac PPX - heparin FULL CODE Cont CVC, needs another night of inpatient care Vitals Vitals Vital Signs Date Time Temp Pulse Resp B/P (MAP) Pulse Ox O2 Delivery O2 Flow Rate FiO2 12/16/18 07:45 Room Air 12/16/18 07:45 97.8 50 16 140/64 (89) 96 97.8 Physical Exam General: Alert, No acute distress Heart: Regular rate Lungs: Crackles Abdomen: Normal bowel sounds Extremities: Other (left AV fistula with palpable bruit and good distal pulses) Skin: No breakdown Labs LABS Laboratory Tests Test 12/15/18 16:32 12/15/18 21:00 12/16/18 04:20 12/16/18 07:50 Glucose (Fingerstick) 114 mg/dL (70-99) 112 mg/dL (70-99) 98 mg/dL (70-99) White Blood Count 7.3 x10^3/uL (4.0-11.0) Red Blood Count 3.74 x10^6/uL (4.30-5.70) Hemoglobin 12.1 g/dL (13.0-17.5) Hematocrit 35.9 % (39.0-53.0) Mean Corpuscular Volume 96 fL (79-100) Mean Corpuscular Hemoglobin 32 pg (25-35) Mean Corpuscular Hemoglobin Concent 34 g/dL (31-37) Red Cell Distribution Width 14.8 % (11.5-14.5) Platelet Count 175 x10^3/uL (140-400) Neutrophils (%) (Auto) 72 % (31-73) Lymphocytes (%) (Auto) 11 % (24-48) Monocytes (%) (Auto) 14 % (0-9) Eosinophils (%) (Auto) 3 % (0-3) Basophils (%) (Auto) 1 % (0-3) Neutrophils # (Auto) 5.2 x10^3uL (1.8-7.7) Lymphocytes # (Auto) 0.8 x10^3/uL (1.0-4.8) Monocytes # (Auto) 1.0 x10^3/uL (0.0-1.1) Eosinophils # (Auto) 0.2 x10^3/uL (0.0-0.7) Basophils # (Auto) 0.1 x10^3/uL (0.0-0.2) Sodium Level 140 mmol/L (136-145) Potassium Level 6.0 mmol/L (3.5-5.1) Chloride Level 100 mmol/L (98-107) Carbon Dioxide Level 28 mmol/L (21-32) Anion Gap 12 (6-14) Blood Urea Nitrogen 62 mg/dL (8-26) Creatinine 10.7 mg/dL (0.7-1.3) Estimated GFR (Cockcroft-Gault) 4.9 Glucose Level 82 mg/dL (70-99) Calcium Level 8.8 mg/dL (8.5-10.1) Phosphorus Level 8.8 mg/dL (2.6-4.7) Albumin 3.2 g/dL (3.4-5.0) Triglycerides Level 70 mg/dL (0-150) Cholesterol Level 136 mg/dL (0-200) LDL Cholesterol, Calculated 52 mg/dL (0-100) VLDL Cholesterol, Calculated 14 mg/dL (0-40) Non-HDL Cholesterol Calculated 66 mg/dL (0-129) HDL Cholesterol 70 mg/dL (40-60) Cholesterol/HDL Ratio 1.9 Assessment and Plan Assessmemt and Plan Problems Medical Problems: (1) Chest pain Status: Acute Comment Review of Relevant I have reviewed the following items dionte (where applicable) has been applied. Labs Laboratory Tests Test 12/14/18 16:47 12/14/18 20:13 12/15/18 06:28 12/15/18 07:37 Glucose (Fingerstick) 91 mg/dL (70-99) 133 mg/dL (70-99) 97 mg/dL (70-99) White Blood Count 7.8 x10^3/uL (4.0-11.0) Red Blood Count 4.07 x10^6/uL (4.30-5.70) Hemoglobin 12.9 g/dL (13.0-17.5) Hematocrit 38.9 % (39.0-53.0) Mean Corpuscular Volume 96 fL (79-100) Mean Corpuscular Hemoglobin 32 pg (25-35) Mean Corpuscular Hemoglobin Concent 33 g/dL (31-37) Red Cell Distribution Width 14.8 % (11.5-14.5) Platelet Count 173 x10^3/uL (140-400) Neutrophils (%) (Auto) 70 % (31-73) Lymphocytes (%) (Auto) 13 % (24-48) Monocytes (%) (Auto) 13 % (0-9) Eosinophils (%) (Auto) 3 % (0-3) Basophils (%) (Auto) 2 % (0-3) Neutrophils # (Auto) 5.4 x10^3uL (1.8-7.7) Lymphocytes # (Auto) 1.0 x10^3/uL (1.0-4.8) Monocytes # (Auto) 1.0 x10^3/uL (0.0-1.1) Eosinophils # (Auto) 0.2 x10^3/uL (0.0-0.7) Basophils # (Auto) 0.1 x10^3/uL (0.0-0.2) Sodium Level 137 mmol/L (136-145) Potassium Level 5.8 mmol/L (3.5-5.1) Chloride Level 100 mmol/L (98-107) Carbon Dioxide Level 28 mmol/L (21-32) Anion Gap 9 (6-14) Blood Urea Nitrogen 50 mg/dL (8-26) Creatinine 8.6 mg/dL (0.7-1.3) Estimated GFR (Cockcroft-Gault) 6.3 Glucose Level 102 mg/dL (70-99) Calcium Level 8.8 mg/dL (8.5-10.1) Phosphorus Level 6.8 mg/dL (2.6-4.7) Albumin 3.2 g/dL (3.4-5.0) Test 12/15/18 11:41 12/15/18 16:32 12/15/18 21:00 12/16/18 04:20 Glucose (Fingerstick) 148 mg/dL (70-99) 114 mg/dL (70-99) 112 mg/dL (70-99) White Blood Count 7.3 x10^3/uL (4.0-11.0) Red Blood Count 3.74 x10^6/uL (4.30-5.70) Hemoglobin 12.1 g/dL (13.0-17.5) Hematocrit 35.9 % (39.0-53.0) Mean Corpuscular Volume 96 fL (79-100) Mean Corpuscular Hemoglobin 32 pg (25-35) Mean Corpuscular Hemoglobin Concent 34 g/dL (31-37) Red Cell Distribution Width 14.8 % (11.5-14.5) Platelet Count 175 x10^3/uL (140-400) Neutrophils (%) (Auto) 72 % (31-73) Lymphocytes (%) (Auto) 11 % (24-48) Monocytes (%) (Auto) 14 % (0-9) Eosinophils (%) (Auto) 3 % (0-3) Basophils (%) (Auto) 1 % (0-3) Neutrophils # (Auto) 5.2 x10^3uL (1.8-7.7) Lymphocytes # (Auto) 0.8 x10^3/uL (1.0-4.8) Monocytes # (Auto) 1.0 x10^3/uL (0.0-1.1) Eosinophils # (Auto) 0.2 x10^3/uL (0.0-0.7) Basophils # (Auto) 0.1 x10^3/uL (0.0-0.2) Sodium Level 140 mmol/L (136-145) Potassium Level 6.0 mmol/L (3.5-5.1) Chloride Level 100 mmol/L (98-107) Carbon Dioxide Level 28 mmol/L (21-32) Anion Gap 12 (6-14) Blood Urea Nitrogen 62 mg/dL (8-26) Creatinine 10.7 mg/dL (0.7-1.3) Estimated GFR (Cockcroft-Gault) 4.9 Glucose Level 82 mg/dL (70-99) Calcium Level 8.8 mg/dL (8.5-10.1) Phosphorus Level 8.8 mg/dL (2.6-4.7) Albumin 3.2 g/dL (3.4-5.0) Triglycerides Level 70 mg/dL (0-150) Cholesterol Level 136 mg/dL (0-200) LDL Cholesterol, Calculated 52 mg/dL (0-100) VLDL Cholesterol, Calculated 14 mg/dL (0-40) Non-HDL Cholesterol Calculated 66 mg/dL (0-129) HDL Cholesterol 70 mg/dL (40-60) Cholesterol/HDL Ratio 1.9 Test 12/16/18 07:50 Glucose (Fingerstick) 98 mg/dL (70-99) Laboratory Tests Test 12/15/18 16:32 12/15/18 21:00 12/16/18 04:20 12/16/18 07:50 Glucose (Fingerstick) 114 mg/dL (70-99) 112 mg/dL (70-99) 98 mg/dL (70-99) White Blood Count 7.3 x10^3/uL (4.0-11.0) Red Blood Count 3.74 x10^6/uL (4.30-5.70) Hemoglobin 12.1 g/dL (13.0-17.5) Hematocrit 35.9 % (39.0-53.0) Mean Corpuscular Volume 96 fL (79-100) Mean Corpuscular Hemoglobin 32 pg (25-35) Mean Corpuscular Hemoglobin Concent 34 g/dL (31-37) Red Cell Distribution Width 14.8 % (11.5-14.5) Platelet Count 175 x10^3/uL (140-400) Neutrophils (%) (Auto) 72 % (31-73) Lymphocytes (%) (Auto) 11 % (24-48) Monocytes (%) (Auto) 14 % (0-9) Eosinophils (%) (Auto) 3 % (0-3) Basophils (%) (Auto) 1 % (0-3) Neutrophils # (Auto) 5.2 x10^3uL (1.8-7.7) Lymphocytes # (Auto) 0.8 x10^3/uL (1.0-4.8) Monocytes # (Auto) 1.0 x10^3/uL (0.0-1.1) Eosinophils # (Auto) 0.2 x10^3/uL (0.0-0.7) Basophils # (Auto) 0.1 x10^3/uL (0.0-0.2) Sodium Level 140 mmol/L (136-145) Potassium Level 6.0 mmol/L (3.5-5.1) Chloride Level 100 mmol/L (98-107) Carbon Dioxide Level 28 mmol/L (21-32) Anion Gap 12 (6-14) Blood Urea Nitrogen 62 mg/dL (8-26) Creatinine 10.7 mg/dL (0.7-1.3) Estimated GFR (Cockcroft-Gault) 4.9 Glucose Level 82 mg/dL (70-99) Calcium Level 8.8 mg/dL (8.5-10.1) Phosphorus Level 8.8 mg/dL (2.6-4.7) Albumin 3.2 g/dL (3.4-5.0) Triglycerides Level 70 mg/dL (0-150) Cholesterol Level 136 mg/dL (0-200) LDL Cholesterol, Calculated 52 mg/dL (0-100) VLDL Cholesterol, Calculated 14 mg/dL (0-40) Non-HDL Cholesterol Calculated 66 mg/dL (0-129) HDL Cholesterol 70 mg/dL (40-60) Cholesterol/HDL Ratio 1.9 Medications Current Medications Nitroglycerin (Nitrostat) 0.4 mg PRN Q5MIN PRN SL CP RATING > 1/10 Last administered on 12/13/18at 07:08; Start 12/13/18 at 06:30; Stop 12/14/18 at 06:29 ; Status DC Morphine Sulfate (Morphine Sulfate) 2 mg PRN Q15MIN PRN IV/SQ PAIN GREATER THAN 3/10 Last administered on 12/13/18at 12:57; Start 12/13/18 at 06:30; Stop at 06:29; Status DC Lorazepam (Ativan) 1 mg 1X ONCE IV Last administered on 12/13/18at 09:27; Start 12/13/18 at 09:15; Stop 12/13/18 at 09:16; Status DC Ondansetron HCl (Zofran) 4 mg PRN Q8HRS PRN IV NAUSEA/VOMITING; Start 12/13/18 at 09:30; Stop 12/14/18 at 09:29; Status DC Morphine Sulfate (Morphine Sulfate) 2 mg PRN Q2HR PRN IV PAIN; Start 12/13/18 at 09:30; Stop 12/14/18 at 09:29; Status DC Alprazolam (Xanax) 1 mg TID PO Last administered on 12/14/18at 09:32; Start at 14:00; Stop 12/14/18 at 13:50; Status DC Aspirin (Children'S Aspirin) 81 mg DAILY PO Last administered on 12/15/18at 10: 35; Start 12/13/18 at 11:00 Calcium Carbonate/ Glycine (Tums) 1,000 mg TIDAC PO Last administered on at 16:46; Start 12/13/18 at 11:30 Clopidogrel Bisulfate (Plavix) 75 mg DAILY PO Last administered on 12/15/18 10 :35; Start 12/13/18 at 11:00 Vitamin B Complex/ Vitamin C (Frances-Chilo) 1 tab DAILY PO Last administered on 10:37; Start 12/13/18 at 11:00 Losartan Potassium (Cozaar) 50 mg DAILY PO Last administered on 12/15/18 10:37 ; Start 12/13/18 at 11:00 Tamsulosin HCl (Flomax) 0.4 mg QHS PO Last administered on 12/15/18 21:03; Start 12/13/18 at 21:00 Hydralazine HCl (Apresoline) 50 mg TID PO Last administered on 12/15/18 21:03 ; Start 12/13/18 at 14:00 Metoprolol Tartrate (Lopressor) 100 mg BID PO Last administered on 12/15/18 21 :04; Start 12/13/18 at 11:00 Pantoprazole Sodium (Protonix) 40 mg DAILYAC PO Last administered on 12/15/18 10:35; Start 12/13/18 at 11:00 Paroxetine HCl (Paxil) 40 mg DAILY PO Last administered on 12/15/18 10:35; Start 12/13/18 at 11:00 Sodium Chloride 1,000 ml @ 1,000 mls/hr Q1H PRN IV hypotension; Start 12/13/18 at 11:52; Stop 12/13/18 at 17:51; Status DC Labetalol HCl (Normodyne Iv Push) 10 mg PRN Q1HR PRN IVP SBP > 180; Start 12/13 at 12:00; Stop 12/14/18 at 11:59; Status DC Sodium Chloride 1,000 ml @ 400 mls/hr Q2H30M PRN IV PATENCY; Start 12/13/18 at 11:52; Stop 12/13/18 at 23:51; Status DC Info (PHARMACY MONITORING -- do not chart) 1 each PRN DAILY PRN MC SEE COMMENTS ; Start 12/13/18 at 12:00 Info (PHARMACY MONITORING -- do not chart) 1 each PRN DAILY PRN MC SEE COMMENTS ; Start 12/13/18 at 12:00; Stop 12/13/18 at 12:00; Status DC Diphenhydramine HCl (Benadryl) 50 mg 1X ONCE IVP ; Start 12/13/18 at 16:00; Stop 12/13/18 at 16:01; Status DC Darbepoetin Percy (Aranesp) 60 mcg WEEKLYHS SQ ; Start 12/21/18 at 21:00 Alprazolam (Xanax) 0.5 mg PRN TID PRN PO anxiety Last administered on at 09:00; Start 12/14/18 at 14:00 Fentanyl Citrate (Fentanyl 2ml Vial) 25 mcg PRN Q4HRS PRN IV PAIN Last administered on 12/15/18at 21:04; Start 12/14/18 at 14:00 Acetaminophen/ Hydrocodone Bitart (Lortab 5/325) 1 tab PRN Q6HRS PRN PO PAIN Last administered on 12/15/18at 23:03; Start 12/14/18 at 14:00 Regadenoson (Lexiscan) 0.4 mg 1X ONCE IV Last administered on 12/15/18at 09:08 ; Start 12/15/18 at 07:45; Stop 12/15/18 at 07:46; Status DC Calcium Acetate (Phoslo) 1,334 mg TIDWMEALS PO Last administered on 12/15/18at 16:46; Start 12/15/18 at 17:00 Atorvastatin Calcium (Lipitor) 40 mg QHS PO Last administered on 12/15/18at 21: 03; Start 12/15/18 at 21:00 Diphenhydramine HCl (Benadryl) 25 mg 1X ONCE IVP ; Start 12/16/18 at 09:45; Stop 12/16/18 at 09:46; Status DC Sodium Chloride 1,000 ml @ 1,000 mls/hr Q1H PRN IV hypotension; Start 12/16/18 at 10:08; Stop 12/16/18 at 16:07 Info (PHARMACY MONITORING -- do not chart) 1 each PRN DAILY PRN MC SEE COMMENTS ; Start 12/16/18 at 10:15; Status UNV Info (PHARMACY MONITORING -- do not chart) 1 each PRN DAILY PRN MC SEE COMMENTS ; Start 12/16/18 at 10:15; Status UNV Iodixanol (Visipaque 320) 100 ml STK-MED ONCE .ROUTE ; Start 12/16/18 at 11:03; Stop 12/16/18 at 11:05; Status DC Lidocaine HCl (Xylocaine-Mpf 1% 2ml Vial) 2 ml STK-MED ONCE .ROUTE ; Start 12/16 at 11:03; Stop 12/16/18 at 11:05; Status DC Heparin Sodium/ Sodium Chloride 500 ml @ As Directed STK-MED ONCE .ROUTE ; Start 12/16/18 at 11:03; Stop 12/16/18 at 11:05; Status DC Fentanyl Citrate (Fentanyl 2ml Vial) 100 mcg STK-MED ONCE .ROUTE ; Start at 13:34; Stop 12/16/18 at 13:36; Status DC Midazolam HCl (Versed) 2 mg STK-MED ONCE .ROUTE ; Start 12/16/18 at 13:34; Stop 12/16/18 at 13:37; Status DC Lidocaine HCl (Lidocaine 1% 20ml Vial) 20 ml STK-MED ONCE .ROUTE ; Start at 13:37; Stop 12/16/18 at 13:39; Status DC Active Scripts Active Doxycycline Hyclate 100 Mg Tablet 100 Mg PO BID 7 Days Amox Tr-K Clv 500-125 Mg Tab (Amoxicillin/Potassium Clav) 1 Each Tablet 1 Tab PO QHS 7 Days Cozaar (Losartan Potassium) 50 Mg Tablet 50 Mg PO DAILY Flomax (Tamsulosin Hcl) 0.4 Mg Cap.er.24h 0.4 Mg PO QHS Reported Xanax (Alprazolam) 1 Mg Tablet 1 Tab PO TID Aspirin 81 Mg Tab.chew 81 Tab PO DAILY Metoprolol Tartrate 100 Mg Tablet 1 Tab PO BID Plavix (Clopidogrel Bisulfate) 75 Mg Tablet 75 PO DAILY Hydralazine Hcl 50 Mg Tablet 50 TID Nephro-Chilo Tablet (Folic Acid/Vitamin B Comp W-C) 0.8 Mg Tablet 1 Tab PO DAILY Paroxetine Hcl 20 Mg Tablet 40 Mg PO DAILY Tums (Calcium Carbonate) 200 Mg Tab.chew 800 Mg PO TIDAC Omeprazole Magnesium 20 Mg Capsule.dr 20 Mg PO DAILY Vitals/I & O Vital Sign - Last 24 Hours 12/15/18 12/15/18 12/15/18 12/15/18 14:24 15:17 16:46 19:45 Temp 97.5 97.5 Pulse 50 50 Resp 18 B/P (MAP) 157/61 150/64 (92) Pulse Ox 99 O2 Delivery Room Air Room Air Room Air 12/15/18 12/15/18 12/15/18 12/15/18 19:45 21:03 21:04 21:04 Temp 97.4 97.4 Pulse 53 55 55 Resp 18 16 B/P (MAP) 143/65 (91) 143/65 143/65 Pulse Ox 96 96 O2 Delivery Room Air Room Air 12/15/18 12/15/18 12/15/18 12/16/18 21:35 23:01 23:03 00:03 Temp 97.3 97.3 Pulse 55 Resp 16 18 18 16 B/P (MAP) 161/69 (99) Pulse Ox 97 97 O2 Delivery Room Air Room Air Room Air Room Air 12/16/18 12/16/18 12/16/18 03:52 07:45 07:45 Temp 97.5 97.8 97.5 97.8 Pulse 56 50 Resp 18 16 B/P (MAP) 147/68 (94) 140/64 (89) Pulse Ox 96 96 O2 Delivery Room Air Room Air Room Air Intake and Output 12/15/18 12/15/18 12/16/18 15:01 23:01 07:01 Intake Total 180 ml 580 ml 320 ml Balance 180 ml 580 ml 320 ml MAMADOU VARELA MD Dec 16, 2018 13:59
[2018-12-16] MEDS ORDERED: IODIXANOL 320 MG/ML 100 ML VIAL. IART ONE (14:15)
[2018-12-16] MEDS ORDERED: MIDAZOLAM HCL/PF 2 MG/2 ML VIAL. IV ONE (14:15)
[2018-12-16] MEDS ORDERED: fentaNYL PF VIAL 100 MCG/2 ML VIAL IV ONE (14:15)
[2018-12-16] MEDS ORDERED: LIDOCAINE 1% Multi-Dose 20 ML VIAL. INJ ONE (14:15)
[2018-12-16] MEDS ORDERED: CONTRAST GIVEN. MC PRN (14:30)
[2018-12-16] MEDS ORDERED: BIVALIRUDIN 250 MG VIAL. IV ONE ×2 (14:32→14:45)
[2018-12-16] MEDS ORDERED: diphenhydrAMINE 50 MG/ML VIAL ONE (14:50)
[2018-12-16] MEDS ORDERED: NITROGLYCERIN 200 MCG/2 ML SYRINGE FOR CATH/VASC LAB. ONE (15:21)
[2018-12-16] MEDS ORDERED: NITROGLYCERIN 200 MCG/2 ML SYRINGE FOR CATH/VASC LAB. IART ONE (15:30)
[2018-12-16] MEDS ORDERED: IV NORMAL SALINE 250ML 250 ML IV ONE (15:45)
[2018-12-16] MEDS ORDERED: ASPIRIN 325 MG TABLET ONE (15:52)
[2018-12-16] MEDS ORDERED: CLOPIDOGREL BISULFATE 75 MG TABLET ONE (15:52)
[2018-12-16] MEDS ORDERED: CLOPIDOGREL BISULFATE 75 MG TABLET PO ONE (16:00)
[2018-12-16] MEDS ORDERED: ASPIRIN 325 MG TABLET PO ONE (16:00)
--- NOTE | 2018-12-16 16:08 | PDOC ---
MODERATE SEDATION ASSESSMENT RISKS/ALTERNATIVES Risks/Alternatives Risks and alternatives of this type of sedation and procedure discussed with: RISK/ALTERNATIVES: Patient H & P ON CHART H & P H & P on chart and reviewed for co-morbid conditions and appropriate labs. H&P ON CHART: Yes STATUS PREG STATUS ASSESSED: N/A MEDS/ALLERGIES REVIEWED Meds/Allergies Reviewed Medications and Allergies including time and route of recently administered narcotics and sedatives. MEDS/ALLERGIES REVIEWED: Yes ASA RATING ASA RATING: II AIRWAY ASSESSMENT Airway Assessment Airway patency, oral function limitations, presence of caps, crowns, dentures, partials, and ability to extend neck assessed. AIRWAY ASSESSMENT: Yes MALLAMPATI SCORE MALLAMPATI SCORE: II PRE-SEDATION ASSESSMENT PRE-SEDATION ASSESSMENT: Yes CASTRO AMOR MD Dec 16, 2018 16:08
[2018-12-16] MEDS ORDERED: ACETAMINOPHEN 325 MG TABLET. PO PRN (16:15)
--- NOTE | 2018-12-16 17:19 | CARD ---
MR#: [id number] Date of Study: 12/16/2018 Ordering Physician: ALIYAH MORAN, Referring Physician: ARSALAN ESCAMILLA Tech: RT Emmanuel (R) APPROVED REPORT Technologist: RT Emmanuel (R) Nurse: Procedure(s) performed: 1. Left heart catheterization, selective angiography, selective angiography of the bypass grafts 2. Successful complex PCI/drug eluting stents placement to the left main coronary artery, left anter ior descending and left circumflex arteries (Culotte technique) Moderate sedation: 120 minutes INDICATION The indication(s) include : Unstable angina, positive stress test. PROCEDURE NARRATIVE After explaining the risks, benefits and alternative options, informed consent was obtained from giovanni ent. Patient was brought to the cardiac Uc Architect and his right groin was prepped and draped in the us ual fashion. 20 mL of 2% lidocaine was infiltrated into the skin and subcutaneous tissues for local a nesthesia. Arterial access was obtained the right common femoral artery and 6 Congolese was inserted. 6 Congolese JL4 and 6 Congolese JR4 catheters were used to perform selective angiography of the left and righ t coronary arteries. The 6 Congolese JR4 catheter was used to perform selective angiography of the seque ntial saphenous vein graft to the diagonal/obtuse marginal branches and also the left internal mammar y artery graft to the left anterior descending artery. 6 Congolese multipurpose catheter was used to per form selective angiography of the sequential saphenous vein graft to the posterior descending/postero lateral branch. The following findings were noted. FINDINGS 1. The left main coronary artery arose from the left sinus of Valsalva, gave rise to the left anteri or descending and left circumflex arteries and showed 70-80% stenosis in the distal segment. 2. The left anterior descending artery showed 70% stenosis involving the diagonal branch. 3. The left circumflex artery showed 90-95% stenosis involving the ostial and proximal segments. 4. The right coronary artery arose from the right sinus of Valsalva and showed 70% in-stent restenos is in the midsegment followed by 100% occlusion in the mid to distal segment. 5. The left internal mammary artery graft to the left anterior descending artery was a medium calibe r vessel with slow flow. There were 70-80% stenosis noted at the anastomosis with the tulalip left ant erior descending artery. 6. The sequential saphenous vein graft to the diagonal branch/obtuse marginal branch was completely occluded. The segment between the diagonal and the obtuse marginal branches was widely patent. 7. The sequential saphenous vein graft to the posterior descending and posterior lateral branches of the right coronary artery was widely patent. Distal to the anastomosis the posterolateral branch angelic wed moderate diffuse disease. INTERVENTION The sheath in right groin was exchanged to a 8 Congolese sheath. The left main coronary artery was engag ed with 8 Congolese XB 3.5 guide catheter. The stenoses in the left main coronary artery and left circum flex artery were crossed with a 0.014 inch Stellarcasa SA Pro water guidewire. Another Pro water guidewire was used to cross the left main coronary artery stenosis into the left anterior descending artery. The s tenosis in the left circumflex artery was then dilated with a 3.0 x 15 mm trek balloon. Subsequently, this was treated with a 3.0 x 15 mm Xience Alpine drug-eluting stent. The stent struts recrossed int o the left anterior descending artery with the same Pro water guidewire and a struts dilated with a 3 .0 x 8 mm NC euphora noncompliant balloon. Subsequently, a 4.0 x 15 mm Xience alpine drug-eluting lisa nt was deployed across the left main coronary artery stenosis into the left anterior descending arter y. The stent struts recrossed into the left circumflex artery with the Pro water guidewire and the st ruts dilated with another 3.0 x 8 mm NC euphora noncompliant balloon. Finally, kissing balloon angiop lasty was performed within LMCA/LCx/LAD using two 3.0 x 15 mm balloons. Final angiography showed reso lution of the stenoses to 0% with TOBY-3 distal flow. Patient tolerated the procedure well. Hemostasi s was achieved using Angio-Seal. There were no immediate complications. Conclusion 1. Severe tulalip vessel coronary artery disease s/p coronary artery bypass surgery with 90% anastomo tic lesion involving WHITEHEAD to LAD, occluded sequential SVG to diagonal/obtuse marginal branch with pat ent segment between the diagonal and obtuse marginal branch, patent sequential saphenous vein graft t o posterior descending/posterolateral branches of right coronary artery. The tulalip left anterior mitchell cending artery and the left circumflex artery showed significant lesions as described above. 2. Successful complex PCI/MITCHELL to LMCA/LCx/LAD (culotte technique) Signed by : Enio Robison, Electronically Approved : 12/16/2018 17:17:36
[2018-12-16] MEDS: fentaNYL PF VIAL 100 MCG/2 ML VIAL IV PRN (18:28)
--- NOTE | 2018-12-16 18:33 | NUR ---
RN NOTE during frequent vitals and site check patients angiocel was saturated with blood dr ascencio was on the floor and notified and went to assess patients site. patient site is soft and pressure was held for 15 minutes this RN will continue to monitor and report given to night nurse.
[2018-12-16] MEDS: HYDROcodone/APAP 5/325MG 1 TAB TABLET PO PRN (18:57)
[2018-12-16] MEDS: TAMSULOSIN 0.4 MG CAP.ER.24H. PO SCH (20:23)
[2018-12-16] MEDS: ATORVASTATIN CALCIUM 40 MG TABLET. PO SCH (20:23)
[2018-12-16] MEDS ORDERED: diphenhydrAMINE HCL 25 MG CAPSULE PO ONE (20:45)
[2018-12-17 03:40] VITALS: BP 129/58
[2018-12-17] MEDS: HYDROcodone/APAP 5/325MG 1 TAB TABLET PO PRN ×2 (04:57→11:54)
[2018-12-17 06:05] LABS: BASO % 1 % (0-3); EOS # 0.1 x10^3/uL (0.0-0.7); EOS % 1 % (0-3); HEMATOCRIT 36.9 % (39.0-53.0); HEMOGLOBIN 12.3 g/dL (13.0-17.5); LYMPH # 0.7 x10^3/uL (1.0-4.8); LYMPH % 7 % (24-48); MEAN CORPUSCULAR HEMOGLOBIN 32 pg (25-35); MEAN CORPUSCULAR HGB CONC 33 g/dL (31-37); MEAN CORPUSCULAR VOLUME 96 fL (79-100); MONO # 1.1 x10^3/uL (0.0-1.1); MONO % 12 % (0-9); NEUT # 7.5 x10^3uL (1.8-7.7); NEUT % 79 % (31-73); PLATELET COUNT 177 x10^3/uL (140-400); RED BLOOD COUNT 3.83 x10^6/uL (4.30-5.70); WHITE BLOOD COUNT 9.4 x10^3/uL (4.0-11.0)
[2018-12-17 06:47] LABS: ALBUMIN 3.1 g/dL (3.4-5.0); CALCIUM 8.5 mg/dL (8.5-10.1); CREATININE 7.3 mg/dL (0.7-1.3); GFR 7.6; PHOSPHORUS 5.9 mg/dL (2.6-4.7); POTASSIUM 5.3 mmol/L (3.5-5.1)
[2018-12-17] MEDS: PANTOPRAZOLE 40 MG TABLET.DR. PO SCH (07:29)
[2018-12-17 07:43] VITALS: BP 140/56
[2018-12-17] MEDS ORDERED: CLOPIDOGREL BISULFATE 75 MG TABLET PO SCH (08:00)
[2018-12-17] MEDS: CALCIUM ACETATE 667 MG CAPSULE PO SCH ×2 (09:03→11:55)
[2018-12-17] MEDS: CALCIUM CARBONATE 500 MG TAB.CHEW PO SCH ×2 (09:03→11:30)
[2018-12-17] MEDS: CLOPIDOGREL BISULFATE 75 MG TABLET PO SCH (09:03)
[2018-12-17] MEDS: FOLIC/VIT B COMP W-C (RENAL) TABLET. PO SCH (09:04)
[2018-12-17] MEDS: ASPIRIN CHEWABLE 81 MG TABLET. PO SCH (09:04)
[2018-12-17] MEDS: PARoxetine 20 MG TABLET PO SCH (09:04)
[2018-12-17] MEDS: ALPRAZolam 0.5 MG TABLET PO PRN (09:33)
[2018-12-17] MEDS: LOSARTAN POTASSIUM 50 MG TABLET. PO SCH (09:33)
[2018-12-17] MEDS: METOPROLOL TART IMMED RELEASE 50 MG TABLET. PO SCH (09:33)
[2018-12-17 11:30] VITALS: BP 132/63
[2018-12-17] MEDS ORDERED: ATOR40TA59 PO (11:57)
--- NOTE | 2018-12-17 12:02 | PDOC3 ---
Discharge Summary Visit Information Date of Admission: Dec 13, 2018 Date of Discharge: Dec 17, 2018 Admitting Diagnosis: chest pain Final Diagnosis unstable angina pectoris of Coronary bypass graft Chest pain, history of CAD, CHF/vasculopath chronic systolic CHF of CAD ESRD TTH S dialysis Anemia of ESRD anxiety NOS with depression in remission Accel HTN POA History of chronic pancreatitis Problems Medical Problems: (1) Chest pain Status: Acute Brief Hospital Course Allergies Allergies Coded Allergies Type Severity Reaction Last Updated Verified aspirin Allergy Intermediate 06/10/18 Yes Vital Signs Vital Signs Date Time Temp Pulse Resp B/P (MAP) Pulse Ox O2 Delivery O2 Flow Rate FiO2 12/17/18 11:54 Room Air 12/17/18 11:30 97.6 54 18 132/63 (86) 99 97.6 12/16/18 16:01 2.0 Lab Results Laboratory Tests Test 12/15/18 16:32 12/15/18 21:00 12/16/18 04:20 12/16/18 07:50 Glucose (Fingerstick) 114 mg/dL (70-99) 112 mg/dL (70-99) 98 mg/dL (70-99) White Blood Count 7.3 x10^3/uL (4.0-11.0) Red Blood Count 3.74 x10^6/uL (4.30-5.70) Hemoglobin 12.1 g/dL (13.0-17.5) Hematocrit 35.9 % (39.0-53.0) Mean Corpuscular Volume 96 fL (79-100) Mean Corpuscular Hemoglobin 32 pg (25-35) Mean Corpuscular Hemoglobin Concent 34 g/dL (31-37) Red Cell Distribution Width 14.8 % (11.5-14.5) Platelet Count 175 x10^3/uL (140-400) Neutrophils (%) (Auto) 72 % (31-73) Lymphocytes (%) (Auto) 11 % (24-48) Monocytes (%) (Auto) 14 % (0-9) Eosinophils (%) (Auto) 3 % (0-3) Basophils (%) (Auto) 1 % (0-3) Neutrophils # (Auto) 5.2 x10^3uL (1.8-7.7) Lymphocytes # (Auto) 0.8 x10^3/uL (1.0-4.8) Monocytes # (Auto) 1.0 x10^3/uL (0.0-1.1) Eosinophils # (Auto) 0.2 x10^3/uL (0.0-0.7) Basophils # (Auto) 0.1 x10^3/uL (0.0-0.2) Sodium Level 140 mmol/L (136-145) Potassium Level 6.0 mmol/L (3.5-5.1) Chloride Level 100 mmol/L (98-107) Carbon Dioxide Level 28 mmol/L (21-32) Anion Gap 12 (6-14) Blood Urea Nitrogen 62 mg/dL (8-26) Creatinine 10.7 mg/dL (0.7-1.3) Estimated GFR (Cockcroft-Gault) 4.9 Glucose Level 82 mg/dL (70-99) Calcium Level 8.8 mg/dL (8.5-10.1) Phosphorus Level 8.8 mg/dL (2.6-4.7) Albumin 3.2 g/dL (3.4-5.0) Triglycerides Level 70 mg/dL (0-150) Cholesterol Level 136 mg/dL (0-200) LDL Cholesterol, Calculated 52 mg/dL (0-100) VLDL Cholesterol, Calculated 14 mg/dL (0-40) Non-HDL Cholesterol Calculated 66 mg/dL (0-129) HDL Cholesterol 70 mg/dL (40-60) Cholesterol/HDL Ratio 1.9 Test 12/16/18 17:12 12/16/18 21:07 12/17/18 04:40 12/17/18 07:05 Glucose (Fingerstick) 87 mg/dL (70-99) 141 mg/dL (70-99) 90 mg/dL (70-99) White Blood Count 9.4 x10^3/uL (4.0-11.0) Red Blood Count 3.83 x10^6/uL (4.30-5.70) Hemoglobin 12.3 g/dL (13.0-17.5) Hematocrit 36.9 % (39.0-53.0) Mean Corpuscular Volume 96 fL (79-100) Mean Corpuscular Hemoglobin 32 pg (25-35) Mean Corpuscular Hemoglobin Concent 33 g/dL (31-37) Red Cell Distribution Width 15.0 % (11.5-14.5) Platelet Count 177 x10^3/uL (140-400) Neutrophils (%) (Auto) 79 % (31-73) Lymphocytes (%) (Auto) 7 % (24-48) Monocytes (%) (Auto) 12 % (0-9) Eosinophils (%) (Auto) 1 % (0-3) Basophils (%) (Auto) 1 % (0-3) Neutrophils # (Auto) 7.5 x10^3uL (1.8-7.7) Lymphocytes # (Auto) 0.7 x10^3/uL (1.0-4.8) Monocytes # (Auto) 1.1 x10^3/uL (0.0-1.1) Eosinophils # (Auto) 0.1 x10^3/uL (0.0-0.7) Basophils # (Auto) 0.0 x10^3/uL (0.0-0.2) Sodium Level 137 mmol/L (136-145) Potassium Level 5.3 mmol/L (3.5-5.1) Chloride Level 98 mmol/L (98-107) Carbon Dioxide Level 29 mmol/L (21-32) Anion Gap 10 (6-14) Blood Urea Nitrogen 34 mg/dL (8-26) Creatinine 7.3 mg/dL (0.7-1.3) Estimated GFR (Cockcroft-Gault) 7.6 Glucose Level 101 mg/dL (70-99) Calcium Level 8.5 mg/dL (8.5-10.1) Phosphorus Level 5.9 mg/dL (2.6-4.7) Albumin 3.1 g/dL (3.4-5.0) Test 12/17/18 10:58 Glucose (Fingerstick) 112 mg/dL (70-99) Laboratory Tests Test 12/16/18 17:12 12/16/18 21:07 12/17/18 04:40 12/17/18 07:05 Glucose (Fingerstick) 87 mg/dL (70-99) 141 mg/dL (70-99) 90 mg/dL (70-99) White Blood Count 9.4 x10^3/uL (4.0-11.0) Red Blood Count 3.83 x10^6/uL (4.30-5.70) Hemoglobin 12.3 g/dL (13.0-17.5) Hematocrit 36.9 % (39.0-53.0) Mean Corpuscular Volume 96 fL (79-100) Mean Corpuscular Hemoglobin 32 pg (25-35) Mean Corpuscular Hemoglobin Concent 33 g/dL (31-37) Red Cell Distribution Width 15.0 % (11.5-14.5) Platelet Count 177 x10^3/uL (140-400) Neutrophils (%) (Auto) 79 % (31-73) Lymphocytes (%) (Auto) 7 % (24-48) Monocytes (%) (Auto) 12 % (0-9) Eosinophils (%) (Auto) 1 % (0-3) Basophils (%) (Auto) 1 % (0-3) Neutrophils # (Auto) 7.5 x10^3uL (1.8-7.7) Lymphocytes # (Auto) 0.7 x10^3/uL (1.0-4.8) Monocytes # (Auto) 1.1 x10^3/uL (0.0-1.1) Eosinophils # (Auto) 0.1 x10^3/uL (0.0-0.7) Basophils # (Auto) 0.0 x10^3/uL (0.0-0.2) Sodium Level 137 mmol/L (136-145) Potassium Level 5.3 mmol/L (3.5-5.1) Chloride Level 98 mmol/L (98-107) Carbon Dioxide Level 29 mmol/L (21-32) Anion Gap 10 (6-14) Blood Urea Nitrogen 34 mg/dL (8-26) Creatinine 7.3 mg/dL (0.7-1.3) Estimated GFR (Cockcroft-Gault) 7.6 Glucose Level 101 mg/dL (70-99) Calcium Level 8.5 mg/dL (8.5-10.1) Phosphorus Level 5.9 mg/dL (2.6-4.7) Albumin 3.1 g/dL (3.4-5.0) Test 12/17/18 10:58 Glucose (Fingerstick) 112 mg/dL (70-99) Brief Hospital Course Mr. Long is a 63 old male, well known here, admit with chest pain, angina, ACS ruled out, pain persisted, HD done cardiac cath on 12/16, compromise of 4/5 bypass vessels reported. 2 stents placed. chest pain much better for DC felt well, will f./u outpatient atorvastatin script for DC, i thought he was on a statin before. ECHO The left ventricle is normal size. Left ventricle systolic function is mildly impaired. The Ejection Fraction is estimated at 40%. There is mild global hypokinesis of the left ventricle. There is mild concentric left ventricular hypertrophy. Discharge Information Condition at Discharge: Improved Follow Up: Weeks Disposition/Orders: D/C to Home Scheduled Alprazolam (Xanax) 1 Mg Tablet, 1 TAB PO TID, #90 (Reported) Entered as Reported by: KRISTEN CASTILLO on 02/24/182022 Last Action: Continued on 12/13/18 1035 by ARSALAN ESCAMILLA Amoxicillin/Potassium Clav (Amox Tr-K Clv 500-125 Mg Tab) 1 Each Tablet, 1 TAB PO QHS for pna for 7 Days, #7 Prescribed by: HARRIET GARCIA MD on 11/18/18 1608 Last Action: HELD on 12/13/18 1035 by ARSALAN ESCAMILLA Aspirin (Aspirin) 81 Mg Tab.chew, 81 TAB PO DAILY, #30 Ref 3 (Reported) Entered as Reported by: MATT DUMAS on 02/07/18 1232 Last Action: Continued on 12/13/18 1035 by ARSALAN ESCAMILLA Atorvastatin Calcium (Atorvastatin Calcium) 40 Mg Tablet, 40 MG PO QHS for cholesterol, #30 Ref 1 Prescribed by: JANNA STALLWORTH on 12/17/18 1157 Calcium Carbonate (Tums) 200 Mg Tab.chew, 800 MG PO TIDAC, (Reported) Entered as Reported by: Ever Crum on 12/15/162014 Last Action: Continued on 12/13/18 1035 by ARSALAN ESCAMILLA Clopidogrel Bisulfate (Plavix) 75 Mg Tablet, 75 PO DAILY, #90 (Reported) Entered as Reported by: MERVAT BRINK on 04/16/17 0622 Last Action: Continued on 12/13/18 1035 by ARSALAN ESCAMILLA Doxycycline Hyclate (Doxycycline Hyclate) 100 Mg Tablet, 100 MG PO BID for pna for 7 Days, #14 Prescribed by: HARRIET GARCIA MD on 11/18/18 1608 Last Action: HELD on 12/13/18 1035 by ARSALAN ESCAMILLA Folic Acid/Vitamin B Comp W-C (Nephro-Chilo Tablet) 0.8 Mg Tablet, 1 TAB PO DAILY , #30 Ref 5 (Reported) Entered as Reported by: DARNELL ROSAS on 01/02/17 0836 Last Action: Continued on 12/13/18 1035 by ARSALAN ESCAMILLA Hydralazine Hcl (Hydralazine Hcl) 50 Mg Tablet, 50 TID, #90 (Reported) Entered as Reported by: MERVAT BRINK on 04/16/17 0622 Last Action: Converted on 12/13/18 103 by ARSALAN ESCAMILLA Losartan Potassium (Cozaar ) 50 Mg Tablet, 50 MG PO DAILY, #30 Prescribed by: WENDI GUTIERREZ MD on 09/30/17 1158 Last Action: Continued on 12/13/18 1035 by ARSALAN ESCAMILLA Metoprolol Tartrate (Metoprolol Tartrate) 100 Mg Tablet, 1 TAB PO BID, #60 Ref 5 (Reported) Entered as Reported by: DEBBIE GALLAGHER [facility] on 07/09/17 0533 Last Action: Converted on 12/13/18 103 by ARSALAN ESCAMILLA Omeprazole Magnesium (Omeprazole Magnesium) 20 Mg Capsule.dr, 20 MG PO DAILY, ( Reported) Entered as Reported by: KATHLEEN BERNAL on 10/16/16 0142 Last Action: Converted on 12/13/18 1035 by ARSALAN ESCAMILLA Paroxetine Hcl (Paroxetine Hcl) 20 Mg Tablet, 40 MG PO DAILY, #30 Ref 5 ( Reported) Entered as Reported by: Ever Crum on 12/15/167 Last Action: Converted on 12/13/18 1035 by ARSALAN ESCAMILLA Tamsulosin Hcl (Flomax) 0.4 Mg Cap.er.24h, 0.4 MG PO QHS, #30 Ref 1 Prescribed by: JANNA STALLWORTH on 06/23/14 1033 Last Action: Continued on 12/13/18 1035 by ARSALAN ESCAMILLA Patient Instructions Patient Instructions > 30 min face to face JANNA STALLWORTH MD Dec 17, 2018 12:02
--- NOTE | 2018-12-17 14:34 | PDOC ---
SUBJECTIVE ROS States feeling better. s/p cardiac cath yest OBJECTIVE Vital Signs Vital Signs Date Time Temp Pulse Resp B/P (MAP) Pulse Ox O2 Delivery O2 Flow Rate FiO2 12/17/18 14:08 52 141/62 12/17/18 11:54 Room Air 12/17/18 11:30 97.6 18 99 97.6 12/16/18 16:01 2.0 I & 0 Intake and Output 12/17/18 07:01 Intake Total 300 ml Balance 300 ml Intake Oral 300 ml PHYSICAL EXAM Physical Exam Gen- NAD HEENT: OM moist Neck Supple LUNGS: Clear to Auscultation Heart: S1S2, RRR, no murmurs Abdomen: Soft N/T Extremities: No Edema Neurology: alert, oriented, Gu No rod DIAGNOSIS/ASSESSMENT Assessment & Plan ESRD- TTS- LE davita no indication currently if dced- will go back to op unit tomorrow Anemia- Hgb at goal, Aranesp as per protocol Chest pain s/p MPI - Cardiac cath yesterday as per Pt stent placed CAD s/p previous CABG Acute on chronic systolic HF ICM; LVEF 40% per echo COMMENT/RELEVANT DATA Meds Current Medications Medications (Trade) Dose Ordered Sig/Cirilo Start Time Stop Time Status Last Admin Dose Admin Acetaminophen (Tylenol) 650 mg PRN Q6HRS PRN 12/16/18 16:15 Acetaminophen/ Hydrocodone Bitart (Lortab 5/325) 1 tab PRN Q6HRS PRN 12/14/18 14:00 12/17/18 11:54 1 TAB Alprazolam (Xanax) 0.5 mg PRN TID PRN 12/14/18 14:00 12/17/18 09:33 0.5 MG Aspirin (Lillian Aspirin) 325 mg 1X ONCE 12/16/18 16:00 12/16/18 16:02 DC 12/16/18 16:00 325 MG Aspirin (Children'S Aspirin) 81 mg DAILY 12/13/18 11:00 12/17/18 09:04 81 MG Atorvastatin Calcium (Lipitor) 40 mg QHS 12/15/18 21:00 12/16/18 20:23 40 MG Bivalirudin (Angiomax) 250 mg 1X ONCE 12/16/18 14:45 12/16/18 14:46 DC 12/16/18 14:45 250 MG Calcium Acetate (Phoslo) 1,334 mg TIDWMEALS 12/15/18 17:00 12/17/18 11:55 1,334 MG Calcium Carbonate/ Glycine (Tums) 1,000 mg TIDAC 12/13/18 11:30 12/17/18 09:03 1,000 MG Clopidogrel Bisulfate (Plavix) 75 mg DAILYWBKFT 12/17/18 08:00 UNV Darbepoetin Percy (Aranesp) 60 mcg WEEKLYHS 12/21/18 21:00 Diphenhydramine HCl (Benadryl) 25 mg 1X ONCE 12/16/18 20:45 12/16/18 20:52 DC 12/16/18 20:45 25 MG Fentanyl Citrate (Fentanyl 2ml Vial) 100 mcg 1X ONCE 12/16/18 14:15 12/16/18 14:24 DC 12/16/18 14:15 25 MCG Heparin Sodium/ Sodium Chloride 500 ml @ As Directed STK-MED ONCE 12/16/18 14:37 12/16/18 14:39 DC Heparin Sodium/ Sodium Chloride (HEPARIN for ARTERIAL LINE FLUSH) 1,000 unit 1X ONCE 12/16/18 14:15 12/16/18 14:24 DC 12/16/18 14:15 1,000 UNIT Hydralazine HCl (Apresoline) 50 mg TID 12/13/18 14:00 12/17/18 14:08 50 MG Info (CONTRAST GIVEN -- Rx MONITORING) 1 each PRN DAILY PRN 12/16/18 14:30 12/18/18 14:29 Info (PHARMACY MONITORING -- do not chart) 1 each PRN DAILY PRN 12/16/18 10:15 UNV Iodixanol (Visipaque 320) 100 ml STK-MED ONCE 12/16/18 15:28 12/16/18 15:30 DC Labetalol HCl (Normodyne Iv Push) 10 mg PRN Q1HR PRN 12/13/18 12:00 12/14/18 11:59 DC Lidocaine HCl (Lidocaine 1% 20ml Vial) 20 ml 1X ONCE 12/16/18 14:15 12/16/18 14:24 DC 12/16/18 14:15 18 ML Lidocaine HCl (Xylocaine-Mpf 1% 2ml Vial) 2 ml STK-MED ONCE 12/16/18 11:03 12/16/18 11:05 DC Lorazepam (Ativan) 1 mg 1X ONCE 12/13/18 09:15 12/13/18 09:16 DC 12/13/18 09:27 1 MG Losartan Potassium (Cozaar) 50 mg DAILY 12/13/18 11:00 12/17/18 09:33 50 MG Metoprolol Tartrate (Lopressor) 100 mg BID 12/13/18 11:00 12/17/18 09:33 100 MG Midazolam HCl (Versed) 2 mg 1X ONCE 12/16/18 14:15 12/16/18 14:24 DC 12/16/18 14:15 1 MG Morphine Sulfate (Morphine Sulfate) 2 mg PRN Q2HR PRN 12/13/18 09:30 12/14/18 09:29 DC Nitroglycerin (Nitroglycerin) 200 mcg 1X ONCE 12/16/18 15:30 12/16/18 15:32 DC 12/16/18 15:30 200 MCG Nitroglycerin (Nitrostat) 0.4 mg PRN Q5MIN PRN 12/13/18 06:30 12/14/18 06:29 DC 12/13/18 07:08 0.4 MG Ondansetron HCl (Zofran) 4 mg PRN Q8HRS PRN 12/13/18 09:30 12/14/18 09:29 DC Pantoprazole Sodium (Protonix) 40 mg DAILYAC 12/13/18 11:00 12/17/18 07:29 40 MG Paroxetine HCl (Paxil) 40 mg DAILY 12/13/18 11:00 12/17/18 09:04 40 MG Regadenoson (Lexiscan) 0.4 mg 1X ONCE 12/15/18 07:45 12/15/18 07:46 DC 12/15/18 09:08 0.4 MG Sodium Chloride 250 ml @ 250 mls/hr 1X ONCE 12/16/18 15:45 12/16/18 16:44 DC 12/16/18 15:45 250 MLS/HR Tamsulosin HCl (Flomax) 0.4 mg QHS 12/13/18 21:00 12/16/18 20:23 0.4 MG Vitamin B Complex/ Vitamin C (Frances-Chilo) 1 tab DAILY 12/13/18 11:00 12/17/18 09:04 1 TAB Lab Laboratory Tests Test 12/16/18 17:12 12/16/18 21:07 12/17/18 04:40 12/17/18 07:05 Glucose (Fingerstick) 87 mg/dL (70-99) 141 mg/dL (70-99) 90 mg/dL (70-99) White Blood Count 9.4 x10^3/uL (4.0-11.0) Red Blood Count 3.83 x10^6/uL (4.30-5.70) Hemoglobin 12.3 g/dL (13.0-17.5) Hematocrit 36.9 % (39.0-53.0) Mean Corpuscular Volume 96 fL (79-100) Mean Corpuscular Hemoglobin 32 pg (25-35) Mean Corpuscular Hemoglobin Concent 33 g/dL (31-37) Red Cell Distribution Width 15.0 % (11.5-14.5) Platelet Count 177 x10^3/uL (140-400) Neutrophils (%) (Auto) 79 % (31-73) Lymphocytes (%) (Auto) 7 % (24-48) Monocytes (%) (Auto) 12 % (0-9) Eosinophils (%) (Auto) 1 % (0-3) Basophils (%) (Auto) 1 % (0-3) Neutrophils # (Auto) 7.5 x10^3uL (1.8-7.7) Lymphocytes # (Auto) 0.7 x10^3/uL (1.0-4.8) Monocytes # (Auto) 1.1 x10^3/uL (0.0-1.1) Eosinophils # (Auto) 0.1 x10^3/uL (0.0-0.7) Basophils # (Auto) 0.0 x10^3/uL (0.0-0.2) Sodium Level 137 mmol/L (136-145) Potassium Level 5.3 mmol/L (3.5-5.1) Chloride Level 98 mmol/L (98-107) Carbon Dioxide Level 29 mmol/L (21-32) Anion Gap 10 (6-14) Blood Urea Nitrogen 34 mg/dL (8-26) Creatinine 7.3 mg/dL (0.7-1.3) Estimated GFR (Cockcroft-Gault) 7.6 Glucose Level 101 mg/dL (70-99) Calcium Level 8.5 mg/dL (8.5-10.1) Phosphorus Level 5.9 mg/dL (2.6-4.7) Albumin 3.1 g/dL (3.4-5.0) Test 12/17/18 10:58 Glucose (Fingerstick) 112 mg/dL (70-99) Results All relevant outside records, renal labs, imaging studies, telemetry/EKG's were reviewed. PLACIDO MENDOZA MD Dec 17, 2018 14:34
--- NOTE | 2018-12-17 15:06 | PDOC ---
CARDIO Progress Notes Date and Time Date of Service 12/17/2018 Time of Evaluation 1430 Subjective Subjective: No Chest Pain, No shortness of breath, No Palpitations Vitals Vitals Vital Signs Date Time Temp Pulse Resp B/P (MAP) Pulse Ox O2 Delivery O2 Flow Rate FiO2 12/17/18 14:08 52 141/62 12/17/18 11:54 Room Air 12/17/18 11:30 97.6 18 99 97.6 12/16/18 16:01 2.0 Weight Weight [ ] Input and Output Intake and Output Intake and Output 12/17/18 07:01 Intake Total 300 ml Balance 300 ml Intake Oral 300 ml Laboratory Labs Laboratory Tests Test 12/16/18 17:12 12/16/18 21:07 12/17/18 04:40 12/17/18 07:05 Glucose (Fingerstick) 87 mg/dL (70-99) 141 mg/dL (70-99) 90 mg/dL (70-99) White Blood Count 9.4 x10^3/uL (4.0-11.0) Red Blood Count 3.83 x10^6/uL (4.30-5.70) Hemoglobin 12.3 g/dL (13.0-17.5) Hematocrit 36.9 % (39.0-53.0) Mean Corpuscular Volume 96 fL (79-100) Mean Corpuscular Hemoglobin 32 pg (25-35) Mean Corpuscular Hemoglobin Concent 33 g/dL (31-37) Red Cell Distribution Width 15.0 % (11.5-14.5) Platelet Count 177 x10^3/uL (140-400) Neutrophils (%) (Auto) 79 % (31-73) Lymphocytes (%) (Auto) 7 % (24-48) Monocytes (%) (Auto) 12 % (0-9) Eosinophils (%) (Auto) 1 % (0-3) Basophils (%) (Auto) 1 % (0-3) Neutrophils # (Auto) 7.5 x10^3uL (1.8-7.7) Lymphocytes # (Auto) 0.7 x10^3/uL (1.0-4.8) Monocytes # (Auto) 1.1 x10^3/uL (0.0-1.1) Eosinophils # (Auto) 0.1 x10^3/uL (0.0-0.7) Basophils # (Auto) 0.0 x10^3/uL (0.0-0.2) Sodium Level 137 mmol/L (136-145) Potassium Level 5.3 mmol/L (3.5-5.1) Chloride Level 98 mmol/L (98-107) Carbon Dioxide Level 29 mmol/L (21-32) Anion Gap 10 (6-14) Blood Urea Nitrogen 34 mg/dL (8-26) Creatinine 7.3 mg/dL (0.7-1.3) Estimated GFR (Cockcroft-Gault) 7.6 Glucose Level 101 mg/dL (70-99) Calcium Level 8.5 mg/dL (8.5-10.1) Phosphorus Level 5.9 mg/dL (2.6-4.7) Albumin 3.1 g/dL (3.4-5.0) Test 12/17/18 10:58 Glucose (Fingerstick) 112 mg/dL (70-99) Review of Systems Constitutional: yes: weakness, alert, oriented Ears/Nose/Throat: Yes: no symptom reported Eyes: Yes: no symptom reported Pulmonary: Yes no symptom reported Cardiovascular: Yes chest pain Gastrointestional: Yes: constipation Genitourinary: Yes: no symptom reported Musculoskeletal: Yes: back pain Skin: Yes no symptom reported Psychiatric/Neurological: Yes: no symptom reported Endocrine: Yes: no symptom reported Physical Exam HEENT: Neck Supple W Full Motion Chest: Symmetric LUNGS: Clear to Auscultation Heart: S1S2, RRR (SR/SB), no murmurs Abdomen: Soft N/T Extremities: No Edema Neurology: alert, oriented, follow commands Other Exams right groin arteriotomy site intact, no erythema, swelling, neurovascular status to bilateral LE intact. Assessment Assessment 1. NSTEMI: presented with UA features. stress test+. S/P complex PCI/MARILIA to LMCA/LCx/LAD 2. CAD s/p previous CABG 3. Acute on chronic systolic CHF; compensated 4. ICM; LVEF 40% 5. HTN 6. ESRD 7. Suspect PAFIB: isolated episodes with narrow and aberrant complexes with post revascularization with metabolic issues. . Recommendations 1. Cardiac rehab. Fluid off loading per HD. Follow up in office in 4 weeks. 2. ASA/plavix, lipitor/metoprolol and losartan. No blocks nor pauses with lowest HR in the 40s. Continue current metoprolol and will arrange for MCT. MAGNUS CONWAY APRN Dec 17, 2018 15:06
[2018-12-17 15:30] VITALS: BP 131/62
--- NOTE | 2018-12-17 16:22 | NUR ---
Discharge Note: ROSANGELA OCONNOR [place] Discharge instructions and discharge home medications reviewed with Patient and a copy given. All questions have been answered and understanding verbalized. The following instructions and handouts were given: Lipitor, CP, cardiac rehab Discontinued lines and drains: Peripheral IV intact. Patient discharged to Home or Self Care with Self via Ambulated
[2018-12-21] MEDS ORDERED: DARBEPOETIN ALFA 60 MCG/0.3 ML DISP.SYRIN. SQ SCH (21:00)
== END 2018-12-17 16:05 | disposition home or self-care (01) | DRG 246 ==
LOC: ER 06:13 → 2 NORTH 09:27
PROVIDERS: ADMIT Internal Medicine; ATTEND Internal Medicine
PROC: 5A1D70Z Performance of Urinary Filtration, Intermittent, Less than 6 Hours Per Day (ICD-10-PCS; principal; 2018-12-13)
PROC: 027135Z Dilation of Coronary Artery, Two Arteries with Two Drug-eluting Intraluminal Devices, Percutaneous Approach (ICD-10-PCS; 2018-12-16)
PROC: 02703ZZ Dilation of Coronary Artery, One Artery, Percutaneous Approach (ICD-10-PCS; 2018-12-16)
PROC: 5A1D70Z Performance of Urinary Filtration, Intermittent, Less than 6 Hours Per Day (ICD-10-PCS; 2018-12-16)
PROC: 4A023N7 Measurement of Cardiac Sampling and Pressure, Left Heart, Percutaneous Approach (ICD-10-PCS; 2018-12-16)
PROC: B2111ZZ Fluoroscopy of Multiple Coronary Arteries using Low Osmolar Contrast (ICD-10-PCS; 2018-12-16)
PROC: B2181ZZ Fluoroscopy of Left Internal Mammary Bypass Graft using Low Osmolar Contrast (ICD-10-PCS; 2018-12-16)
PROC: B2131ZZ Fluoroscopy of Multiple Coronary Artery Bypass Grafts using Low Osmolar Contrast (ICD-10-PCS; 2018-12-16)
DX: T82.898A Other specified complication of vascular prosthetic devices, implants and grafts, initial encounter (principal); I21.4 Non-ST elevation (NSTEMI) myocardial infarction; N18.6 End stage renal disease; I50.43 Acute on chronic combined systolic (congestive) and diastolic (congestive) heart failure; I13.2 Hypertensive heart and chronic kidney disease with heart failure and with stage 5 chronic kidney disease, or end stage renal disease; K86.1 Other chronic pancreatitis; I25.110 Atherosclerotic heart disease of native coronary artery with unstable angina pectoris; T82.855A Stenosis of coronary artery stent, initial encounter; D63.1 Anemia in chronic kidney disease; E11.22 Type 2 diabetes mellitus with diabetic chronic kidney disease; E11.65 Type 2 diabetes mellitus with hyperglycemia; F32.9 Major depressive disorder, single episode, unspecified; F41.9 Anxiety disorder, unspecified; E21.3 Hyperparathyroidism, unspecified; I25.5 Ischemic cardiomyopathy; K21.9 Gastro-esophageal reflux disease without esophagitis; Z79.899 Other long term (current) drug therapy; Z96.1 Presence of intraocular lens; Z82.3 Family history of stroke; Z83.3 Family history of diabetes mellitus; Z85.118 Personal history of other malignant neoplasm of bronchus and lung; Z85.51 Personal history of malignant neoplasm of bladder; Z90.49 Acquired absence of other specified parts of digestive tract; Z95.1 Presence of aortocoronary bypass graft; Z95.5 Presence of coronary angioplasty implant and graft; Z99.2 Dependence on renal dialysis
CPT/HCPCS: 36415; 71045; 78452; 80053; 80061; 80069; 82962; 83735; 83880; 84484; 85025; 85610; 92920; 92928; 93005; 93017; 93306; 93455; 96374; 99152; 99153; A9500; C1713; C1725; C1769; C1771; C1887; C1892; G0269; J0583; J1200; J1644; J2060; J2250; J2270; J2785; J3010; J3490; J7050; Q0163; 99285-25; J7030

== ENCOUNTER 2019-01-12 12:17 | Inpatient (IN) | payer MEDICARE ==
[~2019-01-12] VITALS: Ht 170.2 cm; Wt 60.0 kg
[~2019-01-12 12:17] MED LIST changes: -AMLO10TA6 PO; +AMLO10TA8 PO; +ATOR40TA59 PO; -CALC500T PO; +CALC500T31 PO
[2019-01-12] MEDS ORDERED: ONDANSETRON PF 4 MG/2 ML VIAL. IV PRN (14:30)
[2019-01-12 14:43] LABS: BASO # 0.1 x10^3/uL (0.0-0.2); BASO % 1 % (0-3); EOS # 0.3 x10^3/uL (0.0-0.7); EOS % 2 % (0-3); HEMATOCRIT 38.6 % (39.0-53.0); HEMOGLOBIN 13.2 g/dL (13.0-17.5); LYMPH # 0.9 x10^3/uL (1.0-4.8); LYMPH % 8 % (24-48); MEAN CORPUSCULAR HEMOGLOBIN 32 pg (25-35); MEAN CORPUSCULAR HGB CONC 34 g/dL (31-37); MEAN CORPUSCULAR VOLUME 94 fL (79-100); MONO # 1.2 x10^3/uL (0.0-1.1); MONO % 10 % (0-9); NEUT % 79 % (31-73); PLATELET COUNT 233 x10^3/uL (140-400); RED CELL DISTRIBUTION WIDTH 14.5 % (11.5-14.5); WHITE BLOOD COUNT 11.4 x10^3/uL (4.0-11.0)
[2019-01-12] MEDS ORDERED: ALPRAZolam 0.5 MG TABLET PO ONE (14:45)
--- NOTE | 2019-01-12 14:49 | PHYS DOC ---
Past Medical History Past Medical History: Anxiety, CAD, Cancer, Hypertension, Pancreatitis, Renal Disease, Other Additional Past Medical Histor: BLADDER CANCER, LUNG CANCER Past Surgical History: Appendectomy, Coronary Bypass Surgery Additional Past Surgical Histo: Dialysis shunt L) arm. cardiac stent, lens implants, POWER PORT LEFT CHEST Alcohol Use: Occasionally Drug Use: None Adult General Chief Complaint Chief Complaint: LOWER EXT PAIN [facility] HPI Patient is a 63 year old male who presents with pain and difficulty walking on his right lower extremity. The patient has a documented history of claudication to the right leg. He was going to have this repaired last week but needed his fistula repaired instead. He has a scheduled follow-up with Dr. Arreola for January 22 but states that the pain is too great and he will not be make it to that appointment. The patient states that he is not able to walk at home and is unable to climb stairs. He states that it is also interfering with his ability to drive himself to dialysis. Review of Systems Review of Systems Constitutional: Denies fever or chills [] Respiratory: Denies cough or shortness of breath [] Cardiovascular: No additional information not addressed in HPI [] GI: Denies abdominal pain, nausea, vomiting, bloody stools or diarrhea [] : Denies dysuria or hematuria [] Musculoskeletal: See history of present illness Integument: Denies rash or skin lesions [] Neurologic: Denies headache, focal weakness or sensory changes [] Endocrine: Denies polyuria or polydipsia [] All other systems were reviewed and found to be within normal limits, except as documented in this note. Allergies Allergies Allergies Coded Allergies Type Severity Reaction Last Updated Verified aspirin Allergy Intermediate 06/10/18 Yes Physical Exam Physical Exam Constitutional: Well developed, well nourished, no acute distress, non-toxic appearance. [] Neck: Normal range of motion, no tenderness, supple, no stridor. [] Cardiovascular:Heart rate regular rhythm, no murmur [] Lungs & Thorax: Bilateral breath sounds clear to auscultation [] Abdomen: Bowel sounds normal, soft, no tenderness, no masses, no pulsatile masses. [] Skin: Warm, dry, no erythema, no rash. [] Back: No tenderness, no CVA tenderness. [] Extremities: right lower extremity tenderness, ROM intact, no edema or erythema noted, pulses are decreased. [] Neurologic: Alert and oriented X 3, normal motor function, normal sensory function, no focal deficits noted. [] Psychologic: Affect normal, judgement normal, mood normal. [] Current Patient Data Vital Signs Vital Signs Date Time Temp Pulse Resp B/P (MAP) Pulse Ox O2 Delivery O2 Flow Rate FiO2 01/12/19 12:36 98.0 61 20 135/62 (86) 98 Room Air 98.0 EKG EKG [] Radiology/Procedures Radiology/Procedures [] Course & Med Decision Making Course & Med Decision Making Pertinent Labs and Imaging studies reviewed. (See chart for details) []The patient will be admitted to Dr. Gonsalves's service. Dr. Arreola has been consulted in the care of this patient. Dragon Disclaimer Dragon Disclaimer This electronic medical record was generated, in whole or in part, using a voice recognition dictation system. Departure Departure Impression: Primary Impression: Claudication Disposition: ADMITTED INPATIENT Admitting Physician: Jose Daniel Gonsalves Condition: GOOD Referrals: RED DOMINGO (PCP) HARPAL CASTANO APRN Jan 12, 2019 14:49
[2019-01-12 15:01] LABS: PROTHROMBIN TIME PATIENT 13.3 SEC (11.7-14.0)
[2019-01-12 15:04] LABS: CALCIUM 8.3 mg/dL (8.5-10.1); CREATININE 9.4 mg/dL (0.7-1.3); GFR 5.7; POTASSIUM 5.5 mmol/L (3.5-5.1)
[2019-01-12 15:09] LABS: ALBUMIN 3.8 g/dL (3.4-5.0); TOTAL BILIRUBIN 0.8 mg/dL (0.2-1.0); TOTAL PROTEIN 7.6 g/dL (6.4-8.2)
[2019-01-12] MEDS: fentaNYL PF VIAL 100 MCG/2 ML VIAL IV PRN (15:25)
--- NOTE | 2019-01-12 16:19 | PDOC ---
Provider Note Provider Note (please see full dictation) 63 yo male with PVD presents with severely limiting right leg claudication and occasional rest pain. Denies any open ulcers. Recent angiogram showed high grade stenosis of the proximal right common femoral artery with right SFA occlusion. There is reconstitution of the mid right popliteal artery with runoff via the right AT and peroneal arteries. He would likely benefit from right femoral endarterectomy with femoral-popliteal bypass. Risks and benefits discussed with him. He acknowledged and elected to proceed. Will plan on surgery on Sat if we can get it on the schedule. He is to have dialysis tomorrow. LOLIS FATIMA MD Jan 12, 2019 16:19
[2019-01-12 19:00] VITALS: BP 125/47
[2019-01-12] MEDS: HYDROcodone/APAP 5/325MG 1 TAB TABLET PO PRN (19:02)
[2019-01-12] MEDS: METOPROLOL TART IMMED RELEASE 50 MG TABLET. PO SCH ×2 (21:00→22:11)
[2019-01-12] MEDS: ATORVASTATIN CALCIUM 40 MG TABLET. PO SCH (22:10)
[2019-01-12] MEDS: ALPRAZolam 1 MG TABLET PO SCH (22:10)
[2019-01-12] MEDS: TAMSULOSIN 0.4 MG CAP.ER.24H. PO SCH (22:10)
[2019-01-12 22:59] VITALS: BP 113/54
[2019-01-13 03:00] VITALS: BP 109/55
--- NOTE | 2019-01-13 05:46 | CONS ---
DATE OF CONSULTATION: 01/12/2019 CHIEF COMPLAINT: Right leg pain. HISTORY OF PRESENT ILLNESS: The patient is a 63-year-old male with long history of atherosclerotic vascular disease and diabetes and renal failure. He is on hemodialysis. He presents for worsening right leg pain. He describes pain in his calf with minimal activity. He is barely able to walk a few steps prior to the onset of the pain. He is not able to walk stairs significantly. He notes occasional pain at rest in his right foot without walking. He denies any history of ulcers. He has had previous percutaneous interventions on his right leg. He was in the hospital a week ago at which time an angiogram demonstrated a severe eccentric plaquing at the proximal right common femoral artery resulting in greater than 80% diameter narrowing. The right superficial femoral artery is also occluded. There is previous stents within the superficial femoral artery and proximal popliteal artery. There is collateral reconstitution of the mid popliteal artery below the level of the stents. There is 2-vessel runoff via the anterior tibial artery and peroneal artery in the right lower leg. He was originally scheduled to see Dr. Arreola to discuss reconstruction options in 2 weeks. His pain became too severe and he was subsequently admitted through the Emergency Room. PAST MEDICAL HISTORY: 1. Coronary artery disease, status post coronary artery bypass graft. 2. Chronic renal failure, on hemodialysis. 3. Essential hypertension. 4. Gastroesophageal reflux disease. 5. Peripheral arterial disease as noted above. PAST SURGICAL HISTORY: 1. Appendectomy. 2. Cholecystectomy. 3. Coronary artery bypass surgery. 4. Bilateral lower extremity stent placement. SOCIAL HISTORY: He lives with his family. He denies any smoking or alcohol use. FAMILY HISTORY: Significant for cancer, diabetes and kidney disease. CURRENT MEDICATIONS: Please see the detailed medication administration record for dosing details. He is on aspirin, metoprolol, Plavix, hydralazine, Nephro-Chilo, paroxetine, omeprazole, Flomax and Cozaar. ALLERGIES: He has adverse reaction listed for ASPIRIN but is currently on aspirin. REVIEW OF SYSTEMS: No recent fevers, chills, chest pain or shortness of breath. No unilateral weakness, numbness, visual loss, speech, any other TIA or stroke symptoms. No nausea, vomiting, diarrhea, constipation, hematochezia, melena or other GI symptoms. He has some chronic right leg pain as detailed above. Denies any left leg pain at this time. He previously had leg pain prior to percutaneous interventions. PHYSICAL EXAMINATION: GENERAL: This is a well-developed male, in no acute distress. VITAL SIGNS: Temperature 98.0, pulse 64, blood pressure 124/59 and respirations 16. NECK: Supple. No lymphadenopathy or carotid bruits. CARDIOVASCULAR: Regular rhythm. Well-healed median sternotomy incision. ABDOMEN: Soft, nontender and nondistended. No palpable masses. EXTREMITIES: He has a left radiocephalic fistula. 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 He has a superficial area of ulceration over the distal aneurysm. He denies any recent episodes of bleeding. No erythema or signs of infection. He has a palpable stent graft within the fistula crossing the antecubital fossa. He has some prominent veins on his left shoulder consistent with more central venous obstruction. He has a weak right femoral pulse, much stronger in left femoral pulse. He has some mild ecchymosis consistent with a recent access. His popliteal and pedal pulses are nonpalpable. No significant areas of skin breakdown on either lower extremity at this time. No significant peripheral edema. He has surgical scar on his medial left leg from previous saphenous vein retrieval incision. LABORATORY DATA: Significant for white blood cell 11.4, hemoglobin 13.2 and platelet count of 233. INR 1.0. Sodium 133, potassium 5.5, BUN 47, creatinine 9.4 and glucose 78. RADIOLOGICAL DATA: Angiogram as detailed above. Carotid ultrasound showed some external carotid artery stenosis, but no significant internal carotid artery narrowing. Lower extremity duplex showed very marginal to small diameter great saphenous vein on the right. It is unlikely this will be adequate for bypass conduit. IMPRESSION: 1. Severe peripheral vascular disease with severe limiting right leg claudication and occasional rest pain. 2. Coronary artery disease, status post coronary reconstruction. 3. End-stage renal disease, on hemodialysis. 4. Hypertension. RECOMMENDATION: 1. I discussed the angiogram findings with him in detail including options for revascularization. His best option for revascularization would be a right femoral endarterectomy with femoral to popliteal bypass (above versus below knee). I outlined risks and potential benefits of bypass. Risks include but not limited to bleeding, infection, nerve injury, edema, cardiac/pulmonary complications and . He acknowledged and requested to proceed. His renal failure and coronary artery disease significantly increase his risk of perioperative complications but he elects to proceed with surgical revascularization. 2. We will plan right femoral endarterectomy with femoral popliteal bypass graft later this week, most likely will be scheduled on Saturday with Dr. Arreola pending or scheduling. 3. He is to have dialysis tomorrow on his regular day. LOLIS FATIMA MD DR: ROBERT/alyson JOB#: [id number] / [id number] SUHAS Naqvi MD, ANGELA PA
[2019-01-13 07:00] VITALS: BP 105/53
[2019-01-13] MEDS: METOPROLOL TART IMMED RELEASE 50 MG TABLET. PO SCH ×2 (09:00→21:52)
[2019-01-13] MEDS: LOSARTAN POTASSIUM 50 MG TABLET. PO SCH (09:00)
[2019-01-13] MEDS: fentaNYL PF VIAL 100 MCG/2 ML VIAL IV PRN (09:04)
[2019-01-13] MEDS: PANTOPRAZOLE 40 MG TABLET.DR. PO SCH (09:05)
[2019-01-13] MEDS: CALCIUM CARBONATE 500 MG TAB.CHEW PO SCH ×3 (09:05→16:30)
[2019-01-13] MEDS: HYDROcodone/APAP 5/325MG 1 TAB TABLET PO PRN ×3 (09:05→21:50)
[2019-01-13] MEDS: PARoxetine 20 MG TABLET PO SCH (09:05)
[2019-01-13] MEDS: FOLIC/VIT B COMP W-C (RENAL) TABLET. PO SCH (09:05)
[2019-01-13] MEDS: ALPRAZolam 1 MG TABLET PO SCH ×3 (09:06→21:49)
--- NOTE | 2019-01-13 09:34 | HP ---
ADMIT DATE: 01/12/2019 HISTORY OF PRESENT ILLNESS: The patient is a 63-year-old male patient with a long-standing history of atherosclerotic vascular disease, type 2 diabetes and end-stage renal failure, on hemodialysis, who came yet again complaining of right leg pain. His pain is mostly in his calf area, precipitated by minimal activity. He is barely able to walk a few steps prior to the onset of his pain. He stated that he is unable to climb stairs to get into his house and occasional pain at rest in his right foot without walking. He has had previous percutaneous intervention in his right leg. He was in the hospital and he was discharged only recently. At that time, he had an angiogram demonstrating severe eccentric plaquing at the proximal right common femoral artery, resulting greater than 80% of diameter narrowing. The right superficial femoral artery is also occluded. There are previous stents within the superficial femoral artery and proximal popliteal artery and apparently, he has collateral reconstitution of the mid popliteal artery below the level of the stents. He was originally scheduled to see Dr. Arreola to discuss reconstruction option in 2 weeks' time. However, the pain became more severe that he presented to the Emergency Room sooner and was admitted to consult the vascular surgeon and the service operations manager to continue his hemodialysis. PAST MEDICAL HISTORY: His past medical history is significant for coronary artery disease, status post coronary artery bypass graft surgery; chronic end-stage renal disease, on hemodialysis; essential hypertension; gastroesophageal reflux disease and peripheral vascular disease. He has also hyperparathyroidism, anemia of chronic kidney disease and congestive heart failure. PAST SURGICAL HISTORY: Significant for appendectomy, cholecystectomy and coronary artery bypass graft surgery. FAMILY HISTORY: Positive for cancer, diabetes, kidney disease and stroke. SOCIAL HISTORY: He apparently lives with his family. He does not smoke, drink alcohol or use any recreational drugs. REVIEW OF SYSTEMS: As per history of present illness. ALLERGIES: HE IS ALLERGIC TO ASPIRIN. MEDICATIONS: He is currently on the following medications: He is on Flomax 0.4 mg at bedtime, Plavix 75 mg once a day, atorvastatin calcium 40 mg at bedtime, hydralazine 50 mg 3 times a day, metoprolol tartrate 100 mg twice a day, losartan potassium 50 mg p.o. daily, aspirin 320 mg daily, hydrocodone/APAP 5/325 one tablet every 4 hours, paroxetine 40 mg daily, alprazolam 1 mg p.o. t.i.d., calcium carbonate for Tums 600 mg 3 times a day, omeprazole 20 mg daily and folic acid with vitamin B and C for Nephro-Chilo 1 tablet once a day. PHYSICAL EXAMINATION: GENERAL: On arrival to the Emergency Room, the patient looked well and was clearly in no apparent respiratory distress. He was well developed, well nourished and he was pale, but not jaundiced or cyanosed from thyromegaly. No jugular venous distention. No lower limb edema. VITAL SIGNS: His heart rate was 61, blood pressure was 135/62, temperature was 98, respiratory rate was 20 and oxygen saturation was 98%. HEENT: Examination of the head, eyes, ears, nose and throat showed normocephalic, atraumatic. NECK: Supple. HEART: Showed normal first and second heart sounds. No gallop, rub or murmur. CHEST: Clear to auscultation. No crepitation or rhonchi. ABDOMEN: Distended, soft and nontender. No guarding or rigidity. No organomegaly. All hernial orifices intact. Bowel sounds normal. NEUROLOGIC: He was awake, alert, responding appropriately. He had no focal neurological deficits. LABORATORY DATA: His lab work showed a white cell count of 11,400, hemoglobin 13, hematocrit 39, MCV 94 and platelet count 233,000 with normal manual differential. His chemistry is variable as he is on hemodialysis. His prothrombin time was 15.3, INR 1 and aPTT was 34. IMPRESSION: In summary, this is a 63-year-old male patient who was admitted with severe peripheral vascular disease and severe limiting right lower extremity claudication with occasional rest pain. PLAN: The plan is to consult the vascular surgeon, the service operations manager to continue hemodialysis, continue with all his medications and continue with pain management. SUHAS FORD MD DR: TAMAR/alyson JOB#: [id number] / [id number]
--- NOTE | 2019-01-13 10:25 | PDOC2 ---
CARDIAC CONSULT DATE OF CONSULT Date of Consult DATE: 01/13/19 TIME: 10:22 REASON FOR CONSULT Reason for Consult: preopeval REFERRING PHYSICIAN Referring Physician: Maxwell SOURCE Source: Chart review, Patient HISTORY OF PRESENT ILLNESS HISTORY OF PRESENT ILLNESS This is a pleasant 63 yo male admitted for planned open revascularization to his RLE due to severe PAD with claudication. He is known for ESRD with HD and CAD with past CABG and I last saw him about 2 weeks ago and I was asked at that time in regards to clearance for his RLE surgery and cardiac amado he has had recent workup and doing well from a cardiac standpoint. No CP, SOA. PAST MEDICAL HISTORY Past Medical History Cardiovascular: CAD, CHF, HTN, ME, PAD Pulmonary: No pertinent hx, Bronchitis, Other GI: Constipation, GERD, Other Heme/Onc: Anemia NOS, Cancer Psych: Anxiety, Depression Renal/: Chronic renal failure, Bladder Ca., Other Endocrine: Diabetes, Hyperparathyroidism PAST SURGICAL HISTORY Past Surgical History Appendectomy, Cholecystectomy, CABG x5 01/2017, PCI/stents FAMILY HISTORY Family History: Diabetes, Stroke SOCIAL HISTORY Smoke: No ALCOHOL: none Drugs: None CURRENT MEDICATIONS CURRENT MEDICATIONS Current Medications Medications (Trade) Dose Ordered Sig/Cirilo Route PRN Reason Start Time Stop Time Status Last Admin Dose Admin Fentanyl Citrate (Fentanyl 2ml Vial) 50 mcg PRN Q1HR PRN IV PAIN 01/12/19 14:30 01/13/19 14:29 01/13/19 09:04 Alprazolam (Xanax) 1 mg TID PO 01/12/19 21:00 01/13/19 09:06 Atorvastatin Calcium (Lipitor) 40 mg QHS PO 01/12/19 21:00 01/12/19 22:10 Calcium Carbonate/ Glycine (Tums) 500 mg TIDAC PO 01/13/19 07:30 01/13/19 09:05 Vitamin B Complex/ Vitamin C (Frances-Chilo) 1 tab DAILY PO 01/13/19 09:00 01/13/19 09:05 Acetaminophen/ Hydrocodone Bitart (Lortab 5/325) 1 tab PRN Q4HRS PRN PO PAIN 01/12/19 17:30 01/13/19 09:05 Tamsulosin HCl (Flomax) 0.4 mg QHS PO 01/12/19 21:00 01/12/19 22:10 Pantoprazole Sodium (Protonix) 40 mg DAILYAC PO 01/13/19 07:30 01/13/19 09:05 Paroxetine HCl (Paxil) 40 mg DAILY PO 01/13/19 09:00 01/13/19 09:05 ALLERGIES ALLERGIES: Coded Allergies: aspirin (Verified Allergy, Intermediate, 06/10/18) takes 81mg daily at home ROS Review of System 14 point ROS evaluated with pertinent positives noted per HPI PHYSICAL EXAM General: Alert, Oriented X3, Cooperative, No acute distress HEENT: Atraumatic, Mucous membr. moist/pink Lungs: Clear to auscultation, Normal air movement Heart: Regular rate (SR), Normal S1, Normal S2 Abdomen: Soft, No tenderness Extremities: No cyanosis, No edema Skin: No breakdown, No significant lesion Neuro: Normal speech, Sensation intact Psych/Mental Status: Mood NL MUSCULOSKELETAL: Osteoarthritic changes both hands VITALS VITALS Vital Signs Date Time Temp Pulse Resp B/P (MAP) Pulse Ox O2 Delivery O2 Flow Rate FiO2 01/13/19 09:04 Room Air 01/13/19 07:00 98.3 64 18 105/53 (70) 100 98.3 LABS Lab: Laboratory Tests Test 01/12/19 14:30 White Blood Count 11.4 x10^3/uL (4.0-11.0) Red Blood Count 4.10 x10^6/uL (4.30-5.70) Hemoglobin 13.2 g/dL (13.0-17.5) Hematocrit 38.6 % (39.0-53.0) Mean Corpuscular Volume 94 fL (79-100) Mean Corpuscular Hemoglobin 32 pg (25-35) Mean Corpuscular Hemoglobin Concent 34 g/dL (31-37) Red Cell Distribution Width 14.5 % (11.5-14.5) Platelet Count 233 x10^3/uL (140-400) Neutrophils (%) (Auto) 79 % (31-73) Lymphocytes (%) (Auto) 8 % (24-48) Monocytes (%) (Auto) 10 % (0-9) Eosinophils (%) (Auto) 2 % (0-3) Basophils (%) (Auto) 1 % (0-3) Neutrophils # (Auto) 9.0 x10^3uL (1.8-7.7) Lymphocytes # (Auto) 0.9 x10^3/uL (1.0-4.8) Monocytes # (Auto) 1.2 x10^3/uL (0.0-1.1) Eosinophils # (Auto) 0.3 x10^3/uL (0.0-0.7) Basophils # (Auto) 0.1 x10^3/uL (0.0-0.2) Prothrombin Time 13.3 SEC (11.7-14.0) Prothromb Time International Ratio 1.0 (0.8-1.1) Activated Partial Thromboplast Time 34 SEC (24-38) Sodium Level 133 mmol/L (136-145) Potassium Level 5.5 mmol/L (3.5-5.1) Chloride Level 92 mmol/L (98-107) Carbon Dioxide Level 24 mmol/L (21-32) Anion Gap 17 (6-14) Blood Urea Nitrogen 47 mg/dL (8-26) Creatinine 9.4 mg/dL (0.7-1.3) Estimated GFR (Cockcroft-Gault) 5.7 BUN/Creatinine Ratio 5 (6-20) Glucose Level 78 mg/dL (70-99) Calcium Level 8.3 mg/dL (8.5-10.1) Total Bilirubin 0.8 mg/dL (0.2-1.0) Aspartate Amino Transf (AST/SGOT) 32 U/L (15-37) Alanine Aminotransferase (ALT/SGPT) 28 U/L (16-63) Alkaline Phosphatase 77 U/L (46-116) Total Protein 7.6 g/dL (6.4-8.2) Albumin 3.8 g/dL (3.4-5.0) Albumin/Globulin Ratio 1.0 (1.0-1.7) ECHOCARDIOGRAM ECHOCARDIOGRAM <Conclusion> The left ventricle is normal size. Left ventricle systolic function is mildly impaired. The Ejection Fraction is estimated at 40%. There is mild global hypokinesis of the left ventricle. There is mild concentric left ventricular hypertrophy. There is no significant aortic valvular stenosis. Doppler and Color Flow revealed no significant aortic regurgitation. Doppler and Color-flow revealed trace mitral regurgitation. Doppler and Color Flow revealed trace tricuspid regurgitation. DATE: 12/14/181746 HEART CATH HEART CATH Conclusion 1. Severe [place] vessel coronary artery disease s/p coronary artery bypass surgery with 90% anastomotic lesion involving WHITEHEAD to LAD, occluded sequential SVG to diagonal/obtuse marginal branch with patent segment between the diagonal and obtuse marginal branch, patent sequential saphenous vein graft to posterior descending/posterolateral branches of right coronary artery. [place] left anterior descending artery and the left circumflex artery showed significant lesions as described above. 2. Successful complex PCI/MARILIA to LMCA/LCx/LAD (culotte technique) DATE: 12/16/18 1787 ASSESSMENT/PLAN ASSESSMENT/PLAN 1. Severe PAD with claudication: RLE revascularization per vascular surgery in AM 2. CAD s/p previous CABG x5 01/2017--- 12/16/2018 S/P complex PCI/MARILIA to LMCA/LCx /LAD. Clinically stable. No cardiac symptoms. 3. Chronic systolic CHF: multifactorial, currently compensated 4. ICM; LVEF 40% 5. HTN: controlled 6. ESRD Recommendations 1. Continue secondary prevention 2. Fluid off loading per HD. 3. CAD stable for planned femoral endarterectomy seen in 01/02/2019 as discussed with primary gas and oil checker. Continue with DAPT. 4. Continue BB preop MAGNUS CONWAY APRN Jan 13, 2019 10:25
[2019-01-13] MEDS: ASPIRIN CHEWABLE 81 MG TABLET. PO SCH (11:40)
[2019-01-13] MEDS: CLOPIDOGREL BISULFATE 75 MG TABLET PO SCH (11:40)
--- NOTE | 2019-01-13 11:50 | PDOC ---
Provider Note Provider Note AF VSS awake and alert right leg with no tissue breakdown, no swelling A/P 63 year old male with right leg severe peripheral artery disease and rest pain/claudication - plan right leg bypass tomorrow - continue aspirin and plavix - will need a left arm venogram during this admission to evaluate his fistula and possible outflow stenosis, not urgent AUDREY BELTRAN MD Jan 13, 2019 11:50
[2019-01-13] MEDS ORDERED: IV NORMAL SALINE 1000ML BAG 1,000 ML IV PRN ×2 (12:39)
[2019-01-13] MEDS ORDERED: DIALYSIS PATIENT. MC PRN ×2 (12:45)
[2019-01-13] MEDS ORDERED: diphenhydrAMINE 50 MG/ML VIAL IVP ONE (13:45)
[2019-01-13 14:03] VITALS: BP 103/57
--- NOTE | 2019-01-13 14:55 | PDOC2 ---
CONSULT Date of Consult Date of Consult DATE: 01/13/19 TIME: 14:52 Reason for Consult Reason for Consult: ESRD AND HIGH K Referring Physician Referring Physician: LOGAN Identification/Chief Complaint Chief Complaint R LE PAIN Source Source: Chart review, Patient History of Present Illness Reason for Visit: THIS IS A 63 YR OLD ESRD PT WITH R LE PAIN AND CLAUDICATION. HE HAS PAD AND IS HER FOR EVALUATION AND W/U FOR THAT. HE ALSO HAS ESRD AND IS ON OP HD ON TTS. LABS SHOWED MILD DECREASE IN HIS NA AND K IS UP, OTHERWISE LABS C/W ESRD Past Medical History Cardiovascular: CAD, CHF, HTN, NC Pulmonary: No pertinent hx, Bronchitis, Other GI: Constipation, GERD, Other Heme/Onc: Anemia NOS, Cancer Psych: Anxiety, Depression Renal/: Chronic renal failure, Bladder Ca., Other Endocrine: Diabetes, Hyperparathyroidism Past Surgical History Past Surgical History: Appendectomy, Cholecystectomy, CABG, Other Family History Family History: Cancer, Diabetes, Kidney Disease, Stroke Social History ALCOHOL: none Drugs: None Lives: with Family Domestic Violence: Neg Current Medications Current Medications Current Medications Ondansetron HCl (Zofran) 4 mg PRN Q8HRS PRN IV NAUSEA/VOMITING; Start 01/12/19 at 14:30; Stop 01/13/19 at 14:29; Status DC Fentanyl Citrate (Fentanyl 2ml Vial) 50 mcg PRN Q1HR PRN IV PAIN Last administered on 01/13/19at 09:04; Start 01/12/19 at 14:30; Stop 01/13/19 at 14:29 ; Status DC Alprazolam (Xanax) 0.5 mg 1X ONCE PO ; Start 01/12/19 at 14:45; Stop 01/12/19 at 14:46; Status DC Alprazolam (Xanax) 1 mg TID PO Last administered on 01/13/19at 14:15; Start at 21:00 Aspirin (Children'S Aspirin) 81 mg DAILY PO Last administered on 01/13/19at 11: 40; Start 01/13/19 at 09:00 Atorvastatin Calcium (Lipitor) 40 mg QHS PO Last administered on 01/12/19at 22: 10; Start 01/12/19 at 21:00 Calcium Carbonate/ Glycine (Tums) 500 mg TIDAC PO Last administered on at 09:05; Start 01/13/19 at 07:30 Clopidogrel Bisulfate (Plavix) 75 mg DAILY PO Last administered on 01/13/19at 11 :40; Start 01/13/19 at 09:00 Vitamin B Complex/ Vitamin C (Frances-Chilo) 1 tab DAILY PO Last administered on at 09:05; Start 01/13/19 at 09:00 Acetaminophen/ Hydrocodone Bitart (Lortab 5/325) 1 tab PRN Q4HRS PRN PO PAIN Last administered on 01/13/19at 14:16; Start 01/12/19 at 17:30 Losartan Potassium (Cozaar) 50 mg DAILY PO ; Start 01/13/19 at 09:00 Tamsulosin HCl (Flomax) 0.4 mg QHS PO Last administered on 01/12/19at 22:10; Start 01/12/19 at 21:00 Hydralazine HCl (Apresoline) 50 mg TID PO ; Start 01/12/19 at 21:00 Metoprolol Tartrate (Lopressor) 100 mg BID PO ; Start 01/12/19 at 21:00 Pantoprazole Sodium (Protonix) 40 mg DAILYAC PO Last administered on 01/13/19at 09:05; Start 01/13/19 at 07:30 Paroxetine HCl (Paxil) 40 mg DAILY PO Last administered on 01/13/19at 09:05; Start 01/13/19 at 09:00 Heparin Sodium (Porcine) 5000 unit/Sodium Chloride 505 ml @ 505 mls/hr 1X ONCE IRR ; Start 01/14/19 at 06:00; Stop 01/14/19 at 06:59 Cefazolin Sodium 1 gm/Sodium Chloride 500 ml @ 500 mls/hr 1X ONCE IRR ; Start 01/14/19 at 06:00; Stop 01/14/19 at 06:59 Sodium Chloride 1,000 ml @ 1,000 mls/hr Q1H PRN IV hypotension; Start 01/13/19 at 12:39; Stop 01/13/19 at 18:38 Sodium Chloride 1,000 ml @ 400 mls/hr Q2H30M PRN IV PATENCY; Start 01/13/19 at 12:39; Stop 01/14/19 at 00:38 Info (PHARMACY MONITORING -- do not chart) 1 each PRN DAILY PRN MC SEE COMMENTS ; Start 01/13/19 at 12:45; Stop 01/13/19 at 12:45; Status DC Info (PHARMACY MONITORING -- do not chart) 1 each PRN DAILY PRN MC SEE COMMENTS ; Start 01/13/19 at 12:45 Diphenhydramine HCl (Benadryl) 50 mg 1X ONCE IVP Last administered on at 13:45; Start 01/13/19 at 13:45; Stop 01/13/19 at 13:46; Status DC Ondansetron HCl (Zofran) 4 mg PRN Q6HRS PRN IV NAUSEA/VOMITING; Start 01/14/19 at 07:00; Stop 01/15/19 at 06:59 Fentanyl Citrate (Fentanyl 2ml Vial) 25 mcg PRN Q5MIN PRN IV MILD PAIN; Start 01/14/19 at 07:00; Stop 01/15/19 at 06:59 Fentanyl Citrate (Fentanyl 2ml Vial) 50 mcg PRN Q5MIN PRN IV MODERATE TO SEVERE PAIN; Start 01/14/19 at 07:00; Stop 01/15/19 at 06:59 Morphine Sulfate (Morphine Sulfate) 1 mg PRN Q10MIN PRN IV SEVERE PAIN; Start 01/14/19 at 07:00; Stop 01/15/19 at 06:59 Hydromorphone HCl (Dilaudid) 0.5 mg PRN Q10MIN PRN IV SEV PAIN, Second choice; Start 01/14/19 at 07:00; Stop 01/15/19 at 06:59 Prochlorperazine Edisylate (Compazine) 5 mg PACU PRN PRN IV NAUSEA, MRX1; Start 01/14/19 at 07:00; Stop 01/15/19 at 06:59 Sodium Chloride 1,000 ml @ 0 mls/hr Q0M IV ; Start 01/14/19 at 07:00 Active Scripts Active Hydrocodone-Apap 5-325 (Hydrocodone Bit/Acetaminophen) 1 Tab Tablet 1 Tab PO Q4H PRN 14 Days Atorvastatin Calcium 40 Mg Tablet 40 Mg PO QHS Cozaar (Losartan Potassium) 50 Mg Tablet 50 Mg PO DAILY Flomax (Tamsulosin Hcl) 0.4 Mg Cap.er.24h 0.4 Mg PO QHS Reported Aspirin 81 Mg Tab.chew 320 Mg PO DAILY Metoprolol Tartrate 100 Mg Tablet 1 Tab PO BID Plavix (Clopidogrel Bisulfate) 75 Mg Tablet 75 PO DAILY Hydralazine Hcl 50 Mg Tablet 50 TID Nephro-Chilo Tablet (Folic Acid/Vitamin B Comp W-C) 0.8 Mg Tablet 1 Tab PO DAILY Paroxetine Hcl 20 Mg Tablet 40 Mg PO DAILY Tums (Calcium Carbonate) 200 Mg Tab.chew 800 Mg PO TIDAC Omeprazole Magnesium 20 Mg Capsule.dr 20 Mg PO DAILY Allergies Allergies: Coded Allergies: aspirin (Verified Allergy, Intermediate, 06/10/18) takes 81mg daily at home ROS General: YES: Fatigue, Appetite PSYCHOLOGICAL ROS: YES: Anxiety, Depression Eyes: Yes Decreased vision HEENT: YES: [place] ALLERGY AND IMMUNOLOGY: YES: Seasonal Allergies Respiratory: YES: Cough, Shortness of breath Cardiovascular: yes Lt Headedness Gastrointestinal: Yes Constipation Genitourinary: YES Other (ANURIA) Musculoskeletal: Yes Pain In: (RLE) Neurological: Yes Weakness Skin: Yes Dry Skin Physical Exam General: Alert, Oriented X3, Cooperative, No acute distress HEENT: Atraumatic, PERRLA, EOMI, Mucous membr. moist/pink Lungs: Clear to auscultation, Normal air movement Heart: Regular rate, Normal S1, Normal S2 Abdomen: Normal bowel sounds, Soft, No tenderness Extremities: No cyanosis Skin: No breakdown Neuro: Normal speech, Sensation intact, Cranial nerves 3-12 NL Psych/Mental Status: Mental status NL, Mood NL MUSCULOSKELETAL: No joint tenderness, No deformity, No swelling Vitals VITALS Vital Signs Date Time Temp Pulse Resp B/P (MAP) Pulse Ox O2 Delivery O2 Flow Rate FiO2 01/13/19 14:16 Room Air 01/13/19 14:03 67 103/57 (72) 01/13/19 07:00 98.3 18 100 98.3 Labs Labs Laboratory Tests Test 01/12/19 14:30 White Blood Count 11.4 x10^3/uL (4.0-11.0) Red Blood Count 4.10 x10^6/uL (4.30-5.70) Hemoglobin 13.2 g/dL (13.0-17.5) Hematocrit 38.6 % (39.0-53.0) Mean Corpuscular Volume 94 fL (79-100) Mean Corpuscular Hemoglobin 32 pg (25-35) Mean Corpuscular Hemoglobin Concent 34 g/dL (31-37) Red Cell Distribution Width 14.5 % (11.5-14.5) Platelet Count 233 x10^3/uL (140-400) Neutrophils (%) (Auto) 79 % (31-73) Lymphocytes (%) (Auto) 8 % (24-48) Monocytes (%) (Auto) 10 % (0-9) Eosinophils (%) (Auto) 2 % (0-3) Basophils (%) (Auto) 1 % (0-3) Neutrophils # (Auto) 9.0 x10^3uL (1.8-7.7) Lymphocytes # (Auto) 0.9 x10^3/uL (1.0-4.8) Monocytes # (Auto) 1.2 x10^3/uL (0.0-1.1) Eosinophils # (Auto) 0.3 x10^3/uL (0.0-0.7) Basophils # (Auto) 0.1 x10^3/uL (0.0-0.2) Prothrombin Time 13.3 SEC (11.7-14.0) Prothromb Time International Ratio 1.0 (0.8-1.1) Activated Partial Thromboplast Time 34 SEC (24-38) Sodium Level 133 mmol/L (136-145) Potassium Level 5.5 mmol/L (3.5-5.1) Chloride Level 92 mmol/L (98-107) Carbon Dioxide Level 24 mmol/L (21-32) Anion Gap 17 (6-14) Blood Urea Nitrogen 47 mg/dL (8-26) Creatinine 9.4 mg/dL (0.7-1.3) Estimated GFR (Cockcroft-Gault) 5.7 BUN/Creatinine Ratio 5 (6-20) Glucose Level 78 mg/dL (70-99) Calcium Level 8.3 mg/dL (8.5-10.1) Total Bilirubin 0.8 mg/dL (0.2-1.0) Aspartate Amino Transf (AST/SGOT) 32 U/L (15-37) Alanine Aminotransferase (ALT/SGPT) 28 U/L (16-63) Alkaline Phosphatase 77 U/L (46-116) Total Protein 7.6 g/dL (6.4-8.2) Albumin 3.8 g/dL (3.4-5.0) Albumin/Globulin Ratio 1.0 (1.0-1.7) Assessment/Plan Assessment/Plan IMP PAD WITH CLAUDICATION DM II HTN ANEMIA ESRD HYPERKALEMIA PLAN HD TODAY UF TO DW TX PAD WILL FOLLOW JAYDE NGUYEN MD Jan 13, 2019 14:55
[2019-01-13 15:00] VITALS: BP 116/52
[2019-01-13 19:00] VITALS: BP 122/58
--- NOTE | 2019-01-13 21:33 | PN ---
DATE: 01/13/2019 SUBJECTIVE: The patient is resting, sitting on the edge of the bed, eating his breakfast comfortably. He stated that he has a good night sleep yesterday and denied any pain in his right foot at rest, but he did complain of pain on exertion. Apparently, he was seen by the vascular surgeon, and he is scheduled to undergo a right femoral endarterectomy and femoral popliteal bypass graft tomorrow by Dr. Arreola. Meanwhile, we will continue with hemodialysis as well as continued all his medication and pain management. SUHAS FORD MD DR: TAMAR/alyson JOB#: [id number] / [id number]
[2019-01-13] MEDS: ATORVASTATIN CALCIUM 40 MG TABLET. PO SCH (21:49)
[2019-01-13] MEDS: TAMSULOSIN 0.4 MG CAP.ER.24H. PO SCH (21:50)
[2019-01-13 23:00] VITALS: BP 120/50
[2019-01-14] VITALS (11 sets, daily range): BP systolic 97–158; BP diastolic 50–90
[2019-01-14] MEDS: HYDROcodone/APAP 5/325MG 1 TAB TABLET PO PRN (03:52)
[2019-01-14] MEDS ORDERED: HEPARIN SODIUM 5,000 UNIT in IV NORMAL SALINE 500ML BAG 500 ML IRR ONE (06:00)
[2019-01-14 06:59] LABS: HEMOGLOBIN 11.7 g/dL (13.0-17.5); RED BLOOD COUNT 3.68 x10^6/uL (4.30-5.70); WHITE BLOOD COUNT 5.5 x10^3/uL (4.0-11.0)
[2019-01-14] MEDS ORDERED: IV NORMAL SALINE 1000ML BAG 1,000 ML IV SCH (07:00)
[2019-01-14] MEDS ORDERED: fentaNYL PF VIAL 100 MCG/2 ML VIAL IV PRN (07:00)
[2019-01-14] MEDS ORDERED: MORPHINE SULFATE 4 MG/ML VIAL. IV PRN ×2 (07:00→14:20)
[2019-01-14] MEDS ORDERED: ONDANSETRON PF 4 MG/2 ML VIAL. IV PRN ×2 (07:00→09:15)
[2019-01-14 07:27] LABS: CALCIUM 7.9 mg/dL (8.5-10.1); CREATININE 6.9 mg/dL (0.7-1.3); GFR 8.2; POTASSIUM 4.4 mmol/L (3.5-5.1)
[2019-01-14] MEDS: CALCIUM CARBONATE 500 MG TAB.CHEW PO SCH ×3 (07:30→17:00)
[2019-01-14] MEDS: PANTOPRAZOLE 40 MG TABLET.DR. PO SCH (07:30)
[2019-01-14] MEDS ORDERED: fentaNYL PF VIAL 100 MCG/2 ML VIAL ONE (07:54)
[2019-01-14] MEDS ORDERED: ROCURONIUM 50 MG/5 ML VIAL. ONE (07:54)
[2019-01-14] MEDS ORDERED: DESFLURANE > 120 MINUTES IH ONE (07:55)
[2019-01-14] MEDS ORDERED: ONDANSETRON PF 4 MG/2 ML VIAL. ONE (07:55)
[2019-01-14] MEDS ORDERED: LIDOCAINE 2% PF 5 ML VIAL. ONE (07:55)
[2019-01-14] MEDS ORDERED: PROPOFOL 20 ML IV ONE (07:55)
[2019-01-14] MEDS ORDERED: PHENYLEPHRINE 10 MG/ML VIAL. ONE (07:55)
[2019-01-14] MEDS ORDERED: DEXAMETHASONE SOD PHOS 20 MG/5 ML VIAL. ONE (07:56)
[2019-01-14] MEDS: ASPIRIN CHEWABLE 81 MG TABLET. PO SCH (08:10)
[2019-01-14] MEDS: CLOPIDOGREL BISULFATE 75 MG TABLET PO SCH (08:11)
[2019-01-14] MEDS: LOSARTAN POTASSIUM 50 MG TABLET. PO SCH (08:11)
[2019-01-14] MEDS: PARoxetine 20 MG TABLET PO SCH (08:11)
[2019-01-14] MEDS: FOLIC/VIT B COMP W-C (RENAL) TABLET. PO SCH (08:11)
[2019-01-14] MEDS: METOPROLOL TART IMMED RELEASE 50 MG TABLET. PO SCH ×2 (08:11→20:48)
[2019-01-14] MEDS: ALPRAZolam 1 MG TABLET PO SCH ×3 (08:12→20:48)
[2019-01-14] MEDS ORDERED: ALTEPLASE 2 MG VIAL INT CAT ONE (08:45)
[2019-01-14] MEDS ORDERED: LIDOCAINE 1% 20 ML VIAL. ONE (08:46)
[2019-01-14] MEDS ORDERED: PAPAVERINE 60 MG/2 ML VIAL FOR OR ONLY. ONE (08:47)
[2019-01-14] MEDS ORDERED: BUPIVACAINE MPF 0.5% 30 ML VIAL. ONE (08:47)
[2019-01-14] MEDS ORDERED: THROMBIN TOPICAL 20,000 UNIT SPRAY.SYRN KIT TP ONE (08:47)
[2019-01-14] MEDS ORDERED: SURGICEL FIBRILLAR 1X2 EACH. ONE ×2 (08:47→11:38)
[2019-01-14] MEDS ORDERED: IOHEXOL 300 MG/ML 100ML VIAL. ONE (08:47)
[2019-01-14] MEDS ORDERED: KETAMINE HCL IN NACL, ISO-OSM 50 MG/5 ML SYRINGE ONE (08:59)
[2019-01-14] MEDS ORDERED: PROCHLORPERAZINE 10 MG/2 ML VIAL. IV PRN (09:15)
[2019-01-14] MEDS ORDERED: 0.9 % SODIUM CHLORIDE 10 ML DISP.SYRIN. IV PRN (09:15)
[2019-01-14] MEDS ORDERED: hydrALAZINE 20 MG/ML VIAL. IVP PRN (09:15)
[2019-01-14] MEDS ORDERED: oxyCODONE/APAP 5/325 1 TAB TABLET PO PRN ×2 (09:15)
[2019-01-14] MEDS ORDERED: LABETALOL 20 MG/4 ML DISP.SYRIN. IVP PRN (09:15)
[2019-01-14] MEDS ORDERED: DOCUSATE SODIUM 100 MG CAPSULE. PO PRN (09:15)
[2019-01-14] MEDS ORDERED: MAG HYDROX/ALUMINUM HYD/SIMETH 30 ML ORAL.SUSP PO PRN (09:15)
[2019-01-14] MEDS ORDERED: NALOXONE 0.4 MG/ML VIAL. IV PRN (09:15)
[2019-01-14] MEDS ORDERED: CALCIUM CARBONATE 500 MG TAB.CHEW PO PRN (09:15)
[2019-01-14] MEDS ORDERED: MORPHINE SULFATE 2 MG/ML VIAL. IV PRN (09:15)
[2019-01-14] MEDS ORDERED: HEPARIN for IV BOLUS 10,000 UNIT/10 ML VIAL. ONE (10:06)
[2019-01-14] MEDS ORDERED: ROCURONIUM 100 MG/10 ML VIAL. ONE (10:08)
[2019-01-14] MEDS ORDERED: VECURONIUM BOLUS 10 MG VIAL. IV ONE (10:36)
[2019-01-14] MEDS ORDERED: NEOSTIGMINE 10 MG/10 ML VIAL. ONE (10:48)
[2019-01-14] MEDS ORDERED: GLYCOPYRROLATE 1 MG/5 ML VIAL. ONE (10:49)
[2019-01-14] MEDS ORDERED: PROTAMINE 50 MG/5 ML VIAL. IV ONE (11:36)
[2019-01-14] MEDS: fentaNYL PF VIAL 100 MCG/2 ML VIAL IV PRN ×2 (12:27→12:54)
--- NOTE | 2019-01-14 13:29 | OP ---
DATE OF SURGERY: 01/14/2019 SURGEON: Rimma Arreola MD. ANESTHESIA USED: General anesthesia. PROFESSIONAL TUTOR: Loulou Ward APRN. PREOPERATIVE DIAGNOSES: Right lower extremity severe peripheral arterial disease, symptomatic with disabling claudication and intermittent rest pain in his foot. POSTOPERATIVE DIAGNOSES: Right lower extremity severe peripheral arterial disease, symptomatic with disabling claudication and intermittent rest pain in his foot. OPERATION PERFORMED: 1. Right common femoral artery and profunda artery endarterectomy. 2. Right common femoral artery to above knee popliteal artery using PTFE prosthetic graft. BLOOD LOSS: 300 mL. INDICATIONS: The patient is a 63-year-old male with a long history of end-stage renal disease, on chronic hemodialysis and peripheral arterial disease. He has been symptomatic with claudication in his right leg, which has progressed and now disabling his activities and causing intermittent rest pain Angiogram of his right lower extremity shows severe atherosclerotic disease and stenosis within the common femoral artery and complete occlusion of the right superficial femoral artery along with superficial femoral artery stents. There is reconstitution of the distal above-knee popliteal artery and runoff through his below knee popliteal and tibial vessels. I made recommendations along with Dr. Guy for right common femoral and profunda endarterectomy and right femoral to popliteal, hopefully above the knee bypass graft. Vein mapping of his right leg showed his great saphenous vein was very small and inadequate for bypass conduit. We planned on using a prosthetic graft for his bypass. Informed consent was obtained including the risks of bleeding, infection, wound healing difficulties, possible open wounds, the need for debridement, bypass graft failure or need for revision in the future and possible worsening of his ischemia. DETAILS OF THE OPERATION: The patient was brought to the operating room and placed on table in supine position. He received general anesthesia and monitored throughout the case by the anesthesiologist. His right groin and right leg circumferentially were prepped and draped by normal sterile fashion. We began by making a longitudinal incision through the right groin, dissecting down to the subcutaneous tissue to the femoral vessels. The common femoral artery was dissected out proximally within the wound and this was dissected out underneath the inguinal ligament to the distal external iliac artery where it was soft. Distally, we dissected out the common femoral artery, the superficial femoral artery and the profunda artery. Vessel loops were placed around all vessels. The common femoral artery throughout the vessel was heavily calcified and firm. There was a good proximal pulse, but there was no good distal pulse in the vessel. The profunda artery was circled with a vessel loop and it was soft more distal in the vessel. We then made a medial longitudinal incision in the distal thigh at the level of the distal popliteal vessel. The subcutaneous tissue was dissected down. Crossing venous branches were clipped and divided. We dissected down to the fascial layer down to the popliteal vessels. The popliteal artery and vein was identified. The popliteal artery was dissected out in the wound. Proximally, it was very firm and calcified. I dissected out very distal in the wound to just above the knee where it was softer and minimal calcification. We placed a vessel loop around it at this location. The vessels were all exposed. We heparinized with 7000 units of heparin. After 3 minutes, I started by clamping the distal popliteal artery. I opened the vessel. There was a dense plaque proximally, but distally, the vessel was opened. It was difficult to visualize the lumen; therefore, I felt it best to transect the artery and get a good evaluation of it before determining whether this will be a good outflow vessel. Therefore, I transected the popliteal artery distally within the wound. It was widely patent. There was mild plaque within the wall and there was backbleeding. We also ran a #3 Donna catheter down the vessel and pulled back. The balloon pulled back easily confirming the vessel was wide open. Proximally, there was just a small trickle of blood flow through the proximal open superficial femoral artery was nearly occluded; therefore, I oversewed it with a 5-0 Prolene suture in 2 layers. We then went back to the groin. We clamped the distal external iliac artery and the superficial femoral artery and profunda artery along with all the branches. We then opened the common femoral artery longitudinally at the profunda level extending it proximally and distally. There was dense plaque within the vessel with near occlusion of the mid common femoral artery. I performed an endarterectomy of the common femoral artery up to the external iliac clamp. I pulled out a large dense cord of plaque from the vessel. I irrigated with heparinized saline, removed all pieces of debris. We then moved the clamp down more distally. There was a strong pulse within the vessel. I then performed an endarterectomy of the profunda vessel. It was difficult to see the endpoint; therefore, I transected the superficial femoral artery to get better visualization and was able to take out a nice dense cord of plaque from the proximal profunda artery distally. It was wide open with no significant plaque. There was very good backbleeding from the profunda artery. We reclamped it. We removed pieces of debris off the endarterectomized vessel. The stump of the superficial femoral artery had no bleeding. I did oversew with two layers of 5-0 Prolene to ensure no bleeding. We then chose an 8 mm Propaten PTFE graft to use for our bypass conduit. We cut the proximal end to nice walsh and performed an anastomosis between the open common femoral artery and the PTFE graft with running HS-7 Prolene suture. After finishing this anastomosis, we removed our clamps and restored blood flow. There was good dopplerable flow in the distal profunda artery. There was pulsatile blood flow through the end of the graft, it was clamped. We then used a Man tunneler. We made a tunnel in the deep, deep to the muscle layer just above the lytton superficial femoral artery. With the tunneler, we pulled the PTFE graft down through this down to the distal thigh incision. The graft was unclamped. There was good pulsatile blood flow through the end of the graft. We irrigated with heparinized saline and reclamped. We cut the graft to length. We then performed an end-to-end anastomosis between the distal popliteal artery and the PTFE graft with running HS-7 Prolene suture. After finishing this anastomosis, we restored blood flow. There was good dopplerable flow in the distal popliteal artery and at the tibial vessels location good dopplerable flow of the foot. We irrigated both wounds with copious amounts of antibiotic solution. Protamine was given to reverse the heparin. Fibrillar was left over the arteries in the anastomosis. We had good hemostasis at the end of the case. We explored all the wounds, used electrocautery and clips to ensure good hemostasis. We closed the groin with two layers of 2-0 Vicryl suture in the subcutaneous tissue level and closed the skin with running 4-0 Vicryl suture. I closed the muscle over the graft with running 2-0 Vicryl suture, closed the subcutaneous tissue with 2 layers of 2-0 Vicryl suture and the thigh and then closed the skin with running 4-0 Vicryl suture. Dermabond was left on the distal thigh incision and a Prevena VAC over the groin incision. He tolerated the surgery with no immediate complications. RIMMA ARREOLA MD DR: MANUEL/alyson JOB#: [id number] / [id number]
[2019-01-14] MEDS: HYDROmorphone 2 MG/ML VIAL IV PRN ×4 (13:30→14:10)
[2019-01-14] MEDS: PROCHLORPERAZINE 10 MG/2 ML VIAL. IV PRN ×2 (13:50→14:00)
[2019-01-14] MEDS: IV NORMAL SALINE 1000ML BAG 1,000 ML IV SCH (14:00)
--- NOTE | 2019-01-14 14:54 | NUR ---
PT transferred to [facility] 211. Pt belongings taken to new room. Report called to accepting nurse.
--- NOTE | 2019-01-14 14:58 | NUR ---
SW following for anticipated dc needs. Chart reviewed. Pt is from home. No SW needs noted at this time. Will continue to follow.
[2019-01-14] MEDS: ACETAMINOPHEN 325 MG TABLET. PO SCH ×2 (17:00→20:49)
[2019-01-14] MEDS: ceFAZolin SODIUM 1 GM in IV DEXTROSE 5% 50 ML IV SCH ×2 (17:02→20:44)
[2019-01-14] MEDS: MORPHINE SULFATE 4 MG/ML VIAL. IV PRN ×2 (17:40→20:35)
[2019-01-14] MEDS: TAMSULOSIN 0.4 MG CAP.ER.24H. PO SCH (20:47)
[2019-01-14] MEDS: ATORVASTATIN CALCIUM 40 MG TABLET. PO SCH (20:48)
--- NOTE | 2019-01-14 21:00 | NUR ---
surgery today, not out of bed today per pt. raissa Addendum: 01/14/19 at 2225 by Susi Malave RN Amended: Links added.
--- NOTE | 2019-01-14 21:31 | PN ---
DATE: 01/14/2019 SUBJECTIVE: The patient is resting slightly propped up in bed, no apparent distress. He is scheduled today for his surgery. Apparently, he was seen by the vascular surgeon and he is scheduled to undergo a right femoral endarterectomy and femoral popliteal bypass graft. PHYSICAL EXAMINATION: GENERAL: When I saw him this morning, he looked well and was clearly in no apparent respiratory distress, pale, but no jaundice, cyanosis, or thyromegaly. No jugular venous distension. No lower limb edema. VITAL SIGNS: His heart rate was 58, blood pressure was 126/90, temperature was 97, respiratory rate was 20, and oxygen saturation was 97%. The rest of clinical exam is stable, has not really changed. LABORATORY DATA: His lab work this morning showed a white cell count of 5500, hemoglobin 11.7, hematocrit 35, MCV 95, and platelet count 269,000. His chemistry showed a serum sodium 142, potassium 4.4, chloride 101, bicarbonate 31, anion gap of 10, BUN 29, creatinine 6.9, estimated GFR was 88.2, glucose 95, calcium was 7.9. ASSESSMENT: 1. Severe peripheral vascular disease, severe limiting right leg claudication and occasional wrist pain. 2. Coronary artery disease, status post coronary artery bypass graft surgery. 3. End-stage renal disease, on hemodialysis. 4. Hypertension. PLAN: The patient is scheduled today for right femoral endarterectomy with femoral popliteal bypass graft. SUHAS FORD MD DR: TAMAR/alyson JOB#: [id number] / [id number]
[2019-01-15] MEDS: MORPHINE SULFATE 4 MG/ML VIAL. IV PRN ×4 (00:31→21:20)
[2019-01-15 02:35] VITALS: BP 99/38
[2019-01-15] MEDS: ceFAZolin SODIUM 1 GM in IV DEXTROSE 5% 50 ML IV SCH (03:54)
[2019-01-15 05:33] LABS: CALCIUM 7.7 mg/dL (8.5-10.1); CREATININE 8.9 mg/dL (0.7-1.3); GFR 6.1; MAGNESIUM 2.1 mg/dL (1.8-2.4); PHOSPHORUS 4.6 mg/dL (2.6-4.7); POTASSIUM 5.4 mmol/L (3.5-5.1)
[2019-01-15 05:57] LABS: BASO % 0 % (0-3); EOS % 0 % (0-3); HEMATOCRIT 31.3 % (39.0-53.0); HEMOGLOBIN 10.3 g/dL (13.0-17.5); LYMPH # 0.3 x10^3/uL (1.0-4.8); LYMPH % 4 % (24-48); MEAN CORPUSCULAR HEMOGLOBIN 32 pg (25-35); MEAN CORPUSCULAR HGB CONC 33 g/dL (31-37); MEAN CORPUSCULAR VOLUME 96 fL (79-100); MONO # 0.7 x10^3/uL (0.0-1.1); MONO % 8 % (0-9); NEUT # 8.5 x10^3uL (1.8-7.7); NEUT % 89 % (31-73); PLATELET COUNT 179 x10^3/uL (140-400); RED BLOOD COUNT 3.25 x10^6/uL (4.30-5.70); RED CELL DISTRIBUTION WIDTH 14.4 % (11.5-14.5); WHITE BLOOD COUNT 9.6 x10^3/uL (4.0-11.0)
[2019-01-15] MEDS: ACETAMINOPHEN 325 MG TABLET. PO SCH ×3 (06:00→21:21)
[2019-01-15 07:00] VITALS: BP 130/61
[2019-01-15] MEDS: IV NORMAL SALINE 1000ML BAG 1,000 ML IV SCH (07:16)
[2019-01-15] MEDS: ALPRAZolam 1 MG TABLET PO SCH ×3 (07:16→21:20)
[2019-01-15] MEDS ORDERED: IV NORMAL SALINE 1000ML BAG 1,000 ML IV PRN ×2 (07:26)
[2019-01-15] MEDS ORDERED: DIALYSIS PATIENT. MC PRN (07:30)
[2019-01-15] MEDS ORDERED: ALBUMIN HUMAN 25% 200 ML IV PRN (07:30)
[2019-01-15] MEDS ORDERED: diphenhydrAMINE 50 MG/ML VIAL IV PRN (07:30)
[2019-01-15] MEDS ORDERED: ACETAMINOPHEN 500 MG TABLET PO PRN (07:30)
[2019-01-15 07:32] LABS: % LYMPHS 6 % (24-48); % MONOS 5 % (0-10); % SEGS 89 % (35-66); PLT ESTIMATE ADEQUATE (ADEQUATE)
[2019-01-15] MEDS ORDERED: diphenhydrAMINE 50 MG/ML VIAL ONE (07:34)
--- NOTE | 2019-01-15 07:43 | NUR ---
Called Dr. Gonsalves and received orders to give pt Xanax early prior to dialysis. Pt left the floor at approx 0740.
[2019-01-15] MEDS: diphenhydrAMINE 50 MG/ML VIAL IV PRN ×3 (08:00→08:47)
[2019-01-15] MEDS: ELECTROLYTE (NON-ICU) PROTOCOL MC SCH (09:00)
--- NOTE | 2019-01-15 10:49 | PDOC ---
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 and right fem-pop bypass by Dr Arreola he has no new c/o -- specifically denies any pain / paresthesias / weakness left foot ROS ROS No nausea No vomiting No pain No rash Vital Sign Vital Signs Vital Signs Date Time Temp Pulse Resp B/P (MAP) Pulse Ox O2 Delivery O2 Flow Rate FiO2 01/15/19 08:00 Room Air 01/15/19 07:00 97.3 63 18 130/61 (84) 98 97.3 01/14/19 23:23 2.0 Physical Exam PHYSICAL EXAM GENERAL: NAD, Alert HEENT: PERRL, OC/OP NECK: Supple, no JVD LUNGS: Clear HEART: S1S2, no gallop, no murmur ABD: Soft, NT, no organomegaly, no rebound EXT: incisions c/d/i no hematoma, no bleed-through at bandages --> left DP pulse is palpable at the ankle BICYCLE REPAIRER: Alert, oriented x 3, no focal neurologic deficit SKIN: No rash Labs Lab Laboratory Tests Test 01/14/19 13:23 01/14/19 20:36 01/15/19 05:00 01/15/19 07:10 Glucose (Fingerstick) 139 mg/dL (70-99) 191 mg/dL (70-99) 147 mg/dL (70-99) White Blood Count 9.6 x10^3/uL (4.0-11.0) Red Blood Count 3.25 x10^6/uL (4.30-5.70) Hemoglobin 10.3 g/dL (13.0-17.5) Hematocrit 31.3 % (39.0-53.0) Mean Corpuscular Volume 96 fL (79-100) Mean Corpuscular Hemoglobin 32 pg (25-35) Mean Corpuscular Hemoglobin Concent 33 g/dL (31-37) Red Cell Distribution Width 14.4 % (11.5-14.5) Platelet Count 179 x10^3/uL (140-400) Neutrophils (%) (Auto) 89 % (31-73) Lymphocytes (%) (Auto) 4 % (24-48) Monocytes (%) (Auto) 8 % (0-9) Eosinophils (%) (Auto) 0 % (0-3) Basophils (%) (Auto) 0 % (0-3) Neutrophils # (Auto) 8.5 x10^3uL (1.8-7.7) Lymphocytes # (Auto) 0.3 x10^3/uL (1.0-4.8) Monocytes # (Auto) 0.7 x10^3/uL (0.0-1.1) Eosinophils # (Auto) 0.0 x10^3/uL (0.0-0.7) Basophils # (Auto) 0.0 x10^3/uL (0.0-0.2) Segmented Neutrophils % 89 % (35-66) Lymphocytes % 6 % (24-48) Monocytes % 5 % (0-10) Platelet Estimate Adequate (ADEQUATE) Sodium Level 142 mmol/L (136-145) Potassium Level 5.4 mmol/L (3.5-5.1) Chloride Level 103 mmol/L (98-107) Carbon Dioxide Level 28 mmol/L (21-32) Anion Gap 11 (6-14) Blood Urea Nitrogen 40 mg/dL (8-26) Creatinine 8.9 mg/dL (0.7-1.3) Estimated GFR (Cockcroft-Gault) 6.1 Glucose Level 139 mg/dL (70-99) Calcium Level 7.7 mg/dL (8.5-10.1) Phosphorus Level 4.6 mg/dL (2.6-4.7) Magnesium Level 2.1 mg/dL (1.8-2.4) Objective Assessment doing well POD #1 s/p right EMPLOYEE COMMUNICATIONS COORDINATOR endart / fem-pop bypass Hg 10.3 mild drop from 13 (likely dilutional combined with some natali-op blood loss) Plan Plan of Care out of bed and ambulate today once done with HD Likely home by this weekend VAC right groin for 5 to 7 days dressing off pop incision tomorrow ASA and Plavix for life CATRACHITO SINGLETON MD Jan 15, 2019 10:49
--- NOTE | 2019-01-15 11:05 | PDOC ---
Renal-Progress Notes Subjective Notes Notes NONE History of Present Illness Hx of present illness STABLE Vitals Vitals Vital Signs Date Time Temp Pulse Resp B/P (MAP) Pulse Ox O2 Delivery O2 Flow Rate FiO2 01/15/19 08:00 Room Air 01/15/19 07:00 97.3 63 18 130/61 (84) 98 97.3 01/14/19 23:23 2.0 Weight Weight [ ] I.O. Intake and Output Intake and Output 01/15/19 06:59 Intake Total 1730 ml Output Total 300 ml Balance 1430 ml Intake Oral 540 ml IV Total 1190 ml Estimated Blood Loss 300 ml # Voids 1 Labs Labs Laboratory Tests Test 01/14/19 13:23 01/14/19 20:36 01/15/19 05:00 01/15/19 07:10 Glucose (Fingerstick) 139 mg/dL (70-99) 191 mg/dL (70-99) 147 mg/dL (70-99) White Blood Count 9.6 x10^3/uL (4.0-11.0) Red Blood Count 3.25 x10^6/uL (4.30-5.70) Hemoglobin 10.3 g/dL (13.0-17.5) Hematocrit 31.3 % (39.0-53.0) Mean Corpuscular Volume 96 fL (79-100) Mean Corpuscular Hemoglobin 32 pg (25-35) Mean Corpuscular Hemoglobin Concent 33 g/dL (31-37) Red Cell Distribution Width 14.4 % (11.5-14.5) Platelet Count 179 x10^3/uL (140-400) Neutrophils (%) (Auto) 89 % (31-73) Lymphocytes (%) (Auto) 4 % (24-48) Monocytes (%) (Auto) 8 % (0-9) Eosinophils (%) (Auto) 0 % (0-3) Basophils (%) (Auto) 0 % (0-3) Neutrophils # (Auto) 8.5 x10^3uL (1.8-7.7) Lymphocytes # (Auto) 0.3 x10^3/uL (1.0-4.8) Monocytes # (Auto) 0.7 x10^3/uL (0.0-1.1) Eosinophils # (Auto) 0.0 x10^3/uL (0.0-0.7) Basophils # (Auto) 0.0 x10^3/uL (0.0-0.2) Segmented Neutrophils % 89 % (35-66) Lymphocytes % 6 % (24-48) Monocytes % 5 % (0-10) Platelet Estimate Adequate (ADEQUATE) Sodium Level 142 mmol/L (136-145) Potassium Level 5.4 mmol/L (3.5-5.1) Chloride Level 103 mmol/L (98-107) Carbon Dioxide Level 28 mmol/L (21-32) Anion Gap 11 (6-14) Blood Urea Nitrogen 40 mg/dL (8-26) Creatinine 8.9 mg/dL (0.7-1.3) Estimated GFR (Cockcroft-Gault) 6.1 Glucose Level 139 mg/dL (70-99) Calcium Level 7.7 mg/dL (8.5-10.1) Phosphorus Level 4.6 mg/dL (2.6-4.7) Magnesium Level 2.1 mg/dL (1.8-2.4) Review of Systems Constitutional: yes: weakness, alert, oriented Ears/Nose/Throat: Yes: no symptom reported Eyes: Yes: no symptom reported Pulmonary: Yes no symptom reported Gastrointestional: Yes: no symptom reported Genitourinary: Yes: no symptom reported Musculoskeletal: Yes: leg pain Skin: Yes no symptom reported Psychiatric/Neurological: Yes: no symptom reported Endocrine: Yes: no symptom reported Physical Exam General Appearance: no apparent distress Skin: warm Respiratory: bilateral CTA Heart: S1S2 Abdomen: soft, bowel sounds present Genitourinary: bladder flat Extremities: pulses present Neurology: alert, oriented Assessment Assessment IMP PAD ESRD DM II HTN ANEMIA S/P RLE REVASCULARIZATION PLAN HD TODAY UF TO [facility] PAIN MANAGEMENT WILL FOLLOW JAYDE NGUYEN MD Jan 15, 2019 11:05
[2019-01-15] MEDS: CALCIUM CARBONATE 500 MG TAB.CHEW PO SCH ×3 (11:30→16:30)
[2019-01-15] MEDS: PANTOPRAZOLE 40 MG TABLET.DR. PO SCH (12:09)
[2019-01-15 12:10] VITALS: BP 130/60
[2019-01-15] MEDS: CLOPIDOGREL BISULFATE 75 MG TABLET PO SCH (12:10)
[2019-01-15] MEDS: FOLIC/VIT B COMP W-C (RENAL) TABLET. PO SCH (12:10)
[2019-01-15] MEDS: PARoxetine 20 MG TABLET PO SCH (12:10)
[2019-01-15] MEDS: ASPIRIN CHEWABLE 81 MG TABLET. PO SCH (12:10)
[2019-01-15] MEDS: LOSARTAN POTASSIUM 50 MG TABLET. PO SCH (12:11)
[2019-01-15] MEDS: METOPROLOL TART IMMED RELEASE 50 MG TABLET. PO SCH ×2 (12:12→21:21)
--- NOTE | 2019-01-15 12:15 | NUR ---
pt returned from dialysis at approx 1210
--- NOTE | 2019-01-15 14:17 | PDOC ---
CARDIO Progress Notes Date and Time Date of Service 01/15/2019 Time of Evaluation 1110 Subjective Subjective: No Chest Pain, No shortness of breath, No Palpitations Vitals Vitals Vital Signs Date Time Temp Pulse Resp B/P (MAP) Pulse Ox O2 Delivery O2 Flow Rate FiO2 01/15/19 12:42 97 Room Air 2.0 01/15/19 12:12 69 130/60 01/15/19 12:10 97.8 18 97.8 Weight Weight [ ] Input and Output Intake and Output Intake and Output 01/15/19 06:59 Intake Total 1730 ml Output Total 300 ml Balance 1430 ml Intake Oral 540 ml IV Total 1190 ml Estimated Blood Loss 300 ml # Voids 1 Laboratory Labs Laboratory Tests Test 01/14/19 20:36 01/15/19 05:00 01/15/19 07:10 01/15/19 12:06 Glucose (Fingerstick) 191 mg/dL (70-99) 147 mg/dL (70-99) 153 mg/dL (70-99) White Blood Count 9.6 x10^3/uL (4.0-11.0) Red Blood Count 3.25 x10^6/uL (4.30-5.70) Hemoglobin 10.3 g/dL (13.0-17.5) Hematocrit 31.3 % (39.0-53.0) Mean Corpuscular Volume 96 fL (79-100) Mean Corpuscular Hemoglobin 32 pg (25-35) Mean Corpuscular Hemoglobin Concent 33 g/dL (31-37) Red Cell Distribution Width 14.4 % (11.5-14.5) Platelet Count 179 x10^3/uL (140-400) Neutrophils (%) (Auto) 89 % (31-73) Lymphocytes (%) (Auto) 4 % (24-48) Monocytes (%) (Auto) 8 % (0-9) Eosinophils (%) (Auto) 0 % (0-3) Basophils (%) (Auto) 0 % (0-3) Neutrophils # (Auto) 8.5 x10^3uL (1.8-7.7) Lymphocytes # (Auto) 0.3 x10^3/uL (1.0-4.8) Monocytes # (Auto) 0.7 x10^3/uL (0.0-1.1) Eosinophils # (Auto) 0.0 x10^3/uL (0.0-0.7) Basophils # (Auto) 0.0 x10^3/uL (0.0-0.2) Segmented Neutrophils % 89 % (35-66) Lymphocytes % 6 % (24-48) Monocytes % 5 % (0-10) Platelet Estimate Adequate (ADEQUATE) Sodium Level 142 mmol/L (136-145) Potassium Level 5.4 mmol/L (3.5-5.1) Chloride Level 103 mmol/L (98-107) Carbon Dioxide Level 28 mmol/L (21-32) Anion Gap 11 (6-14) Blood Urea Nitrogen 40 mg/dL (8-26) Creatinine 8.9 mg/dL (0.7-1.3) Estimated GFR (Cockcroft-Gault) 6.1 Glucose Level 139 mg/dL (70-99) Calcium Level 7.7 mg/dL (8.5-10.1) Phosphorus Level 4.6 mg/dL (2.6-4.7) Magnesium Level 2.1 mg/dL (1.8-2.4) Review of Systems Constitutional: yes: weakness, alert, oriented Ears/Nose/Throat: Yes: no symptom reported Eyes: Yes: no symptom reported Pulmonary: Yes no symptom reported Gastrointestional: Yes: no symptom reported Genitourinary: Yes: no symptom reported Musculoskeletal: Yes: leg pain Skin: Yes no symptom reported Psychiatric/Neurological: Yes: no symptom reported Endocrine: Yes: no symptom reported Physical Exam HEENT: Neck Supple W Full Motion Chest: Symmetric LUNGS: Clear to Auscultation Heart: S1S2, RRR (SR) Abdomen: Soft N/T Extremities: No Edema, Other (Right thigh surgical incision D/I) Neurology: alert, oriented, follow commands Assessment Assessment 1. Severe PAD with claudication: POD#1 doing well. s/p right FIRE [employer] BATTALION CHIEF endarterectomy /right fem-pop bypass 2. CAD s/p previous CABG x5 01/2017--- 12/16/2018 S/P complex PCI/MARILIA to LMCA/LCx /LAD. Clinically stable. 3. Chronic systolic CHF: multifactorial, currently compensated 4. ICM; LVEF 40% 5. HTN: controlled 6. ESRD Recommendations 1. Continue secondary prevention. Continue with DAPT. 2. Fluid off loading per HD. 3. Follow up with cardiology on February 19 at 9AM MAGNUS CONWAY APRN Jan 15, 2019 14:17
[2019-01-15] MEDS: oxyCODONE IR 5 MG TABLET PO PRN ×2 (14:31→19:17)
[2019-01-15 15:13] VITALS: BP 119/52
[2019-01-15 19:03] VITALS: BP 110/64
--- NOTE | 2019-01-15 20:16 | PN ---
DATE: 01/15/2019 SUBJECTIVE: The patient is resting, slightly propped up, having his scheduled hemodialysis. He underwent right common femoral artery and profunda artery endarterectomy and right common femoral artery to above knee popliteal artery using PTFE prosthetic graft successfully. PHYSICAL EXAMINATION: GENERAL: When I saw him this morning, he looked well and was clearly in no apparent respiratory distress, slightly pale, but no jaundice, cyanosis, or thyromegaly. No jugular venous distension. No lower limb edema. VITAL SIGNS: Heart rate was 63, blood pressure was 130/61, temperature was 97.3, respiratory rate was 18 and oxygen saturation was 98% on room air. HEAD, EYES, EARS, NOSE AND THROAT: Normocephalic, atraumatic. NECK: Supple. HEART: Showed normal first and second heart sounds. No gallop, rub or murmur. CHEST: Clear to auscultation. No crepitation or rhonchi. ABDOMEN: Scaphoid, soft, nontender. NEUROLOGIC: He is awake, alert, responding appropriately. All cranial nerves intact. He moves extremities without difficulty. I can feel the dorsalis pedis and tibialis posterior right foot. The wound on the medial aspect of the right thigh is covered with dressing with no surrounding erythema or tenderness. LABORATORY DATA: His lab work this morning showed a white cell count of 9000, hemoglobin 10, hematocrit 31, MCV 96, and platelet count of 179,000. His chemistry is variable as he is hemodialysis dependent. ASSESSMENT: Right lower extremity severe peripheral arterial disease, symptomatic with disability claudication, intermittent rest pain in his right foot. He is status post right common femoral artery and profunda artery endarterectomy, right common femoral artery to the above knee popliteal artery, graft using PTFE prosthesis. The patient has multiple other medical problems including end-stage renal disease, on hemodialysis; hypertension; hyperlipidemia; coronary artery disease; chronic obstructive pulmonary disease. Plan is to see how he does tomorrow morning and if he has no more pain and is able to ambulate, he can be discharged home. SUHAS FORD MD DR: TAMAR/alyson JOB#: [id number] / [id number]
[2019-01-15] MEDS: ATORVASTATIN CALCIUM 40 MG TABLET. PO SCH (21:21)
[2019-01-15] MEDS: TAMSULOSIN 0.4 MG CAP.ER.24H. PO SCH (21:22)
[2019-01-15 22:57] VITALS: BP 107/42
[2019-01-16] VITALS (7 sets, daily range): BP systolic 98–141; BP diastolic 46–63
[2019-01-16] MEDS: IV NORMAL SALINE 1000ML BAG 1,000 ML IV SCH ×2 (01:03→21:03)
[2019-01-16] MEDS: ACETAMINOPHEN 325 MG TABLET. PO SCH ×3 (01:19→23:25)
[2019-01-16] MEDS: MORPHINE SULFATE 2 MG/ML VIAL. IV PRN (06:56)
[2019-01-16] MEDS: CLOPIDOGREL BISULFATE 75 MG TABLET PO SCH (08:11)
[2019-01-16] MEDS: PARoxetine 20 MG TABLET PO SCH (08:12)
[2019-01-16] MEDS: ALPRAZolam 1 MG TABLET PO SCH ×3 (08:12→23:24)
[2019-01-16] MEDS: PANTOPRAZOLE 40 MG TABLET.DR. PO SCH (08:13)
[2019-01-16] MEDS: FOLIC/VIT B COMP W-C (RENAL) TABLET. PO SCH (08:13)
[2019-01-16] MEDS: CALCIUM CARBONATE 500 MG TAB.CHEW PO SCH ×3 (08:13→16:30)
[2019-01-16] MEDS: ASPIRIN CHEWABLE 81 MG TABLET. PO SCH (08:13)
[2019-01-16] MEDS: LOSARTAN POTASSIUM 50 MG TABLET. PO SCH (08:14)
[2019-01-16] MEDS: METOPROLOL TART IMMED RELEASE 50 MG TABLET. PO SCH ×2 (08:18→23:25)
[2019-01-16] MEDS: ELECTROLYTE (NON-ICU) PROTOCOL MC SCH (09:00)
--- NOTE | 2019-01-16 09:33 | PDOC ---
Provider Note Provider Note Vascular S: Patient seen and examined in room. Patient c/o right medial thigh incisional pain. O: Awake and alert VSS, afebrile H/H stable Right groin Prevena vac in place and functioning, dressing removed medial thigh incision, dry and intact. Foot warm, no swelling biphasic Doppler PT and DP. A/P: POD #2 right femoral endarterectomy with fem-pop bypass Adjusted pain medications and discussed pain management with patient Continue dual antiplatelet therapy Remove Prevena vac in 5 days, then may shower Discussed with Primary Care, will monitor patient's pain with possible d/c tomorrow Encouraged activity TAMMI PRATER APRN Jan 16, 2019 09:33
[2019-01-16] MEDS: oxyCODONE/APAP 7.5/325 1 TAB TABLET PO PRN ×2 (10:07→20:06)
--- NOTE | 2019-01-16 11:00 | PDOC ---
Renal-Progress Notes Subjective Notes Notes HAS LE PAIN FROM INCISIONS History of Present Illness Hx of present illness STABLE Vitals Vitals Vital Signs Date Time Temp Pulse Resp B/P (MAP) Pulse Ox O2 Delivery O2 Flow Rate FiO2 01/16/19 10:07 97 Room Air 2.0 01/16/19 08:18 61 115/56 01/16/19 07:00 97.9 16 97.9 Weight Weight [ ] I.O. Intake and Output Intake and Output 01/16/19 07:00 Intake Total 1400 ml Balance 1400 ml Intake Oral 1400 ml Labs Labs Laboratory Tests Test 01/15/19 12:06 01/15/19 16:38 01/15/19 21:00 01/16/19 08:33 Glucose (Fingerstick) 153 mg/dL (70-99) 93 mg/dL (70-99) 109 mg/dL (70-99) 81 mg/dL (70-99) Review of Systems Constitutional: yes: weakness, alert, oriented Ears/Nose/Throat: Yes: no symptom reported Eyes: Yes: no symptom reported Pulmonary: Yes no symptom reported Gastrointestional: Yes: no symptom reported Genitourinary: Yes: no symptom reported Musculoskeletal: Yes: leg pain Skin: Yes no symptom reported Psychiatric/Neurological: Yes: no symptom reported Endocrine: Yes: no symptom reported Physical Exam General Appearance: no apparent distress Skin: warm Respiratory: bilateral CTA Heart: S1S2 Abdomen: soft, bowel sounds present Genitourinary: bladder flat Extremities: pulses present Neurology: alert, oriented, follow commands Assessment Assessment IMP PAD ESRD DM II HTN ANEMIA S/P RLE REVASCULARIZATION PLAN HD TOMORROW PAIN MANAGEMENT WILL FOLLOW JAYDE NGUYEN MD Jan 16, 2019 11:00
--- NOTE | 2019-01-16 11:03 | NUR ---
SS following up with discharge planning. No discharge needs noted at this time. Pt is from home and currently on room air. SS will continue to follow for pending discharge needs.
[2019-01-16] MEDS: TAMSULOSIN 0.4 MG CAP.ER.24H. PO SCH (20:03)
[2019-01-16] MEDS: ATORVASTATIN CALCIUM 40 MG TABLET. PO SCH (20:04)
--- NOTE | 2019-01-16 21:59 | PN ---
DATE: 01/16/2019 SUBJECTIVE: The patient is resting, almost flat in bed, in no apparent respiratory distress. He is awake, alert, complaining of pain around the site of the surgery on the medial aspect of the right thigh. Denied any pain in his right foot which is warm. Both dorsalis pedis and tibialis posterior easily audible with handheld ultrasound. PHYSICAL EXAMINATION: GENERAL: When I examined him, he looked well. He was pale, but no jaundice, cyanosis or thyromegaly. No jugular venous distension. No lower limb edema. VITAL SIGNS: His heart rate this morning was 58, blood pressure was 98/46, temperature was 97.9, respiratory rate was 18 and oxygen saturation was 97%. HEAD, EYES, EARS, NOSE AND THROAT: Showed normocephalic, atraumatic. NECK: Supple. HEART: Showed normal first and second heart sounds. No gallop, rub or murmur. CHEST: Clear to auscultation. No crepitation or rhonchi. ABDOMEN: Scaphoid, soft, nontender. NEUROLOGIC: He was awake, alert, responding appropriately. All cranial nerves intact. He moves extremities without difficulty, though he continued to have severe pain in the medial aspect of the right thigh. His intake over the last 24 hours was 1730, output was 300. LABORATORY DATA: As of yesterday showed a white cell count 9600, hemoglobin 10, hematocrit 31, MCV 96, and platelet count 179,000. His chemistry is variable. He is hemodialysis dependent. His blood sugar seems to be reasonably controlled. ASSESSMENT: 1. Severe peripheral arterial disease with claudication, postoperative day 2, complaining of pain mostly in the medial aspect of the right thigh, status post common femoral artery endarterectomy and right femoral popliteal bypass. 2. Coronary artery disease, status post coronary artery bypass graft x 5 as well as PCI with stent deployment. The patient is chest pain free. Denied any shortness of breath, orthopnea, paroxysmal nocturnal dyspnea. 3. Chronic systolic congestive heart failure, currently well compensated. 4. Ischemic cardiomyopathy, left ventricular ejection fraction is 40%. 5. Hypertension is well controlled. 6. End-stage renal disease, hemodialysis on Saturday, , and Saturday. He also has anemia of chronic kidney disease. 7. Benign prostatic hypertrophy for which he is on Flomax. 8. Hyperlipidemia for which he is on atorvastatin. PLAN: To continue with current plan of management. The patient seems still in pain. Once the patient is able to ambulate and his pain is well controlled, he can be discharged home. SUHAS FORD MD DR: TAMAR/alyson JOB#: [id number] / [id number]
[2019-01-17 03:00] VITALS: BP 148/53
[2019-01-17] MEDS: oxyCODONE/APAP 7.5/325 1 TAB TABLET PO PRN ×5 (03:07→21:49)
[2019-01-17] MEDS: ACETAMINOPHEN 325 MG TABLET. PO SCH ×3 (06:12→21:44)
[2019-01-17 06:58] LABS: CALCIUM 8.2 mg/dL (8.5-10.1); CREATININE 9.3 mg/dL (0.7-1.3); GFR 5.8; POTASSIUM 4.9 mmol/L (3.5-5.1)
[2019-01-17] MEDS ORDERED: IV NORMAL SALINE 1000ML BAG 1,000 ML IV PRN ×2 (07:27)
[2019-01-17] MEDS: CALCIUM CARBONATE 500 MG TAB.CHEW PO SCH ×3 (07:30→14:15)
[2019-01-17] MEDS ORDERED: DIALYSIS PATIENT. MC PRN ×2 (07:30)
[2019-01-17 07:45] VITALS: BP 125/62
[2019-01-17] MEDS: ALPRAZolam 1 MG TABLET PO SCH ×3 (08:14→21:44)
[2019-01-17] MEDS ORDERED: diphenhydrAMINE 50 MG/ML VIAL IVP ONE (08:45)
[2019-01-17] MEDS: METOPROLOL TART IMMED RELEASE 50 MG TABLET. PO SCH ×2 (09:00→21:45)
[2019-01-17] MEDS: ELECTROLYTE (NON-ICU) PROTOCOL MC SCH (09:00)
--- NOTE | 2019-01-17 12:25 | DS ---
DATE OF DISCHARGE: 01/17/2019 HOSPITAL COURSE: The patient was admitted with severe peripheral vascular disease with severe limiting right leg claudication and occasional rest pain. He underwent right common femoral artery and profunda artery endarterectomy and right common femoral artery to above knee popliteal artery graft using PTFE prosthetic. He did very well. His foot is warm to touch. Both tibialis posterior and dorsalis pedis arteries are easily audible with handheld ultrasound. The patient continued to complain of pain in his surgical site, although the wound has healed nicely. There is no redness, tenderness or discharge. He apparently fell this morning, landing on his knees, but there was no evidence of any bruises or lacerations. He moves his extremities without difficulty. He did not hit his head. PHYSICAL EXAMINATION: GENERAL: When I saw him this morning, he was having his hemodialysis catheter. He was awake, alert. When I examined him, he looked pale, but no jaundice, cyanosis, or thyromegaly. No jugular venous distension. No lower limb edema. VITAL SIGNS: His heart rate was 60, blood pressure 148/53, temperature was 97.5, respiratory rate was 17 and oxygen saturation was 99%. HEAD, EYES, EARS, NOSE AND THROAT: Showed normocephalic, atraumatic. NECK: Supple. CARDIAC: Normal first and second heart sounds. No gallop, rub or murmur. CHEST: Clear to auscultation. No crepitation or rhonchi. ABDOMEN: Scaphoid, soft, nontender. NEUROLOGIC: He was awake, alert, responding appropriately. All cranial nerves intact. He moves extremities without difficulty. His right foot is warm to touch. The surgical incision on the medial aspect of the right thigh is healing nicely with no redness, tenderness or discharge. LABORATORY DATA: As of this morning showed a serum sodium 141, potassium 4.9, chloride 98, bicarbonate 32, anion gap of 11, BUN 40, creatinine 9.3, estimated GFR was 5.8 mL per minute, his glucose 100, calcium was 8.2. His most recent hemoglobin was 10, hematocrit 31 with normal white cell count and platelets. DISCHARGE MEDICATIONS: The patient was discharged home to continue on following medication: Alprazolam for Xanax 1 mg 3 times a day, aspirin 81 mg once a day, atorvastatin calcium 40 mg at bedtime, calcium carbonate 800 mg 3 times a day, Plavix 75 mg once a day, folic acid, Nephro-Chilo 1 tablet once a day, hydralazine 50 mg 3 times a day, losartan potassium for Cozaar 50 mg daily, metoprolol tartrate 100 mg twice a day, omeprazole 20 mg once a day, paroxetine 40 mg daily and tamsulosin for Flomax 0.4 mg once a day. He was also discharged on Percocet 7.5/325 one tablet every 6 hours as needed, he was given 30 tablets. FINAL DISCHARGE DIAGNOSES: 1. Severe peripheral arterial disease with claudication and rest pain status post common femoral artery endarterectomy and right femoral to popliteal bypass graft surgery. 2. Coronary artery disease, status post coronary artery bypass graft x 5 as well as PCI with stent deployment. The patient is chest pain free. Denied any shortness of breath, orthopnea or paroxysmal nocturnal dyspnea. 3. Chronic systolic congestive heart failure, currently well compensated. 4. Ischemic cardiomyopathy with left ventricular ejection fraction of 40%. 5. Hypertension is well controlled. 6. End-stage renal disease, on hemodialysis Saturday, and Saturday. 7. Anemia of chronic kidney disease. 8. Benign prostatic hypertrophy for which he is on Flomax. 9. Hyperlipidemia for which he is on atorvastatin. PLAN: The patient will be discharged home to follow with his primary care physician. Continue hemodialysis as an outpatient and follow up with vascular surgeon as needed. SUHAS FORD MD DR: TAMAR/alyson JOB#: [id number] / [id number]
[2019-01-17 12:35] VITALS: BP 140/77
--- NOTE | 2019-01-17 13:09 | PDOC ---
Provider Note Provider Note AF VSS awake and alert right groin prevena vac in place with no hematoma, right thigh incision intact with no erythema/drainage doppler graft pulse in thigh and doppler PT/DP pulse in the right foot, no swelling A/P s/p right femoral to popliteal artery bypass for rest pain/claudication - aspirin and plavix daily - pt does not feel strong enough to go home, wants to look into rehab placement , consult social work - if still in the hospital saturday will plan a left arm fistulogram/venogram to evaluate for outflow obstruction AUDREY BELTRAN MD Jan 17, 2019 13:09
--- NOTE | 2019-01-17 13:28 | NUR ---
New orders from Dr Arreola for PT/OT eval for discharge rehab. Also new orders for fistulogram. Discharge may possibly be delayed.
--- NOTE | 2019-01-17 13:57 | PDOC ---
PROGRESS NOTES Subjective Subjective SEEN IN FOLLOW UP OF ESRD Objective Objective Vital Signs Date Time Temp Pulse Resp B/P (MAP) Pulse Ox O2 Delivery O2 Flow Rate FiO2 01/17/19 12:35 97.8 57 12 140/77 (98) 100 Room Air 97.8 01/16/19 11:07 2.0 Intake and Output 01/17/19 06:59 Intake Total 420 ml Output Total 0 ml Balance 420 ml Intake Oral 420 ml Output Urine Total 0 ml Physical Exam Abdomen: Normal bowel sounds, Soft, No tenderness, No hepatosplenomegaly, No masses Heart: Regular rate, Normal S1, Normal S2, No murmurs, Gallops Extremities: No clubbing, No cyanosis, No edema, Normal pulses, No tenderness/ swelling Lungs: Clear to auscultation, Normal air movement Neuro: Normal gait, Normal speech, Normal tone, Sensation intact, Reflexes 2+ Psych/Mental Status: Mental status NL, Mood NL Diagnosis RENAL FAILURE: ESRD Plan Plan of Care DIALYSIS TODAY AND TOLERATED WELL. FOR REHAB ANYTIME. CONT EPOGEN FOR ANEMIA Comment Review of Relevant I have reviewed the following items dionte (where applicable) has been applied. Labs Laboratory Tests Test 01/15/19 16:38 01/15/19 21:00 01/16/19 08:33 01/16/19 12:09 Glucose (Fingerstick) 93 mg/dL (70-99) 109 mg/dL (70-99) 81 mg/dL (70-99) 88 mg/dL (70-99) Test 01/16/19 17:04 01/16/19 20:54 01/17/19 06:20 01/17/19 07:57 Glucose (Fingerstick) 86 mg/dL (70-99) 110 mg/dL (70-99) 130 mg/dL (70-99) Sodium Level 141 mmol/L (136-145) Potassium Level 4.9 mmol/L (3.5-5.1) Chloride Level 98 mmol/L (98-107) Carbon Dioxide Level 32 mmol/L (21-32) Anion Gap 11 (6-14) Blood Urea Nitrogen 40 mg/dL (8-26) Creatinine 9.3 mg/dL (0.7-1.3) Estimated GFR (Cockcroft-Gault) 5.8 Glucose Level 100 mg/dL (70-99) Calcium Level 8.2 mg/dL (8.5-10.1) Test 01/17/19 11:59 01/17/19 12:50 Glucose (Fingerstick) 84 mg/dL (70-99) 81 mg/dL (70-99) Laboratory Tests Test 01/16/19 17:04 01/16/19 20:54 01/17/19 06:20 01/17/19 07:57 Glucose (Fingerstick) 86 mg/dL (70-99) 110 mg/dL (70-99) 130 mg/dL (70-99) Sodium Level 141 mmol/L (136-145) Potassium Level 4.9 mmol/L (3.5-5.1) Chloride Level 98 mmol/L (98-107) Carbon Dioxide Level 32 mmol/L (21-32) Anion Gap 11 (6-14) Blood Urea Nitrogen 40 mg/dL (8-26) Creatinine 9.3 mg/dL (0.7-1.3) Estimated GFR (Cockcroft-Gault) 5.8 Glucose Level 100 mg/dL (70-99) Calcium Level 8.2 mg/dL (8.5-10.1) Test 01/17/19 11:59 01/17/19 12:50 Glucose (Fingerstick) 84 mg/dL (70-99) 81 mg/dL (70-99) Medications Current Medications Ondansetron HCl (Zofran) 4 mg PRN Q8HRS PRN IV NAUSEA/VOMITING; Start 01/12/19 at 14:30; Stop 01/13/19 at 14:29; Status DC Fentanyl Citrate (Fentanyl 2ml Vial) 50 mcg PRN Q1HR PRN IV PAIN Last administered on 01/13/19at 09:04; Start 01/12/19 at 14:30; Stop 01/13/19 at 14:29 ; Status DC Alprazolam (Xanax) 0.5 mg 1X ONCE PO ; Start 01/12/19 at 14:45; Stop 01/12/19 at 14:46; Status DC Alprazolam (Xanax) 1 mg TID PO Last administered on 01/17/19at 08:14; Start 01/12 at 21:00 Aspirin (Children'S Aspirin) 81 mg DAILY PO Last administered on 01/16/19at 08:13 ; Start 01/13/19 at 09:00 Atorvastatin Calcium (Lipitor) 40 mg QHS PO Last administered on 01/16/19 20:04 ; Start 01/12/19 at 21:00 Calcium Carbonate/ Glycine (Tums) 500 mg TIDAC PO Last administered on 15:41; Start 01/13/19 at 07:30 Clopidogrel Bisulfate (Plavix) 75 mg DAILY PO Last administered on 01/16/19 08: 11; Start 01/13/19 at 09:00 Vitamin B Complex/ Vitamin C (Frances-Chilo) 1 tab DAILY PO Last administered on 08:13; Start 01/13/19 at 09:00 Acetaminophen/ Hydrocodone Bitart (Lortab 5/325) 1 tab PRN Q4HRS PRN PO MODERATE PAIN Last administered on 01/14/19 03:52; Start 01/12/19 at 17:30; Stop 01/16/19 at 09:28; Status DC Losartan Potassium (Cozaar) 50 mg DAILY PO Last administered on 01/16/19 08:14 ; Start 01/13/19 at 09:00 Tamsulosin HCl (Flomax) 0.4 mg QHS PO Last administered on 01/16/19 20:03; Start 01/12/19 at 21:00 Hydralazine HCl (Apresoline) 50 mg TID PO Last administered on 01/16/19 20:04; Start 01/12/19 at 21:00 Metoprolol Tartrate (Lopressor) 100 mg BID PO Last administered on 01/16/19 23: 25; Start 01/12/19 at 21:00 Pantoprazole Sodium (Protonix) 40 mg DAILYAC PO Last administered on 01/16/19 08:13; Start 01/13/19 at 07:30 Paroxetine HCl (Paxil) 40 mg DAILY PO Last administered on 01/16/19 08:12; Start 01/13/19 at 09:00 Heparin Sodium (Porcine) 5000 unit/Sodium Chloride 505 ml @ 505 mls/hr 1X ONCE IRR Last administered on 01/14/19 09:55; Start 01/14/19 at 06:00; Stop at 06:59; Status DC Cefazolin Sodium 1 gm/Sodium Chloride 500 ml @ 500 mls/hr 1X ONCE IRR Last administered on 01/14/19at 09:24; Start 01/14/19 at 06:00; Stop 01/14/19 at 06:59 ; Status DC Sodium Chloride 1,000 ml @ 1,000 mls/hr Q1H PRN IV hypotension; Start 01/13/19 at 12:39; Stop 01/13/19 at 18:38; Status DC Sodium Chloride 1,000 ml @ 400 mls/hr Q2H30M PRN IV PATENCY; Start 01/13/19 at 12:39; Stop 01/14/19 at 00:38; Status DC Info (PHARMACY MONITORING -- do not chart) 1 each PRN DAILY PRN MC SEE COMMENTS ; Start 01/13/19 at 12:45; Stop 01/13/19 at 12:45; Status DC Info (PHARMACY MONITORING -- do not chart) 1 each PRN DAILY PRN MC SEE COMMENTS ; Start 01/13/19 at 12:45 Diphenhydramine HCl (Benadryl) 50 mg 1X ONCE IVP Last administered on at 13:45; Start 01/13/19 at 13:45; Stop 01/13/19 at 13:46; Status DC Ondansetron HCl (Zofran) 4 mg PRN Q6HRS PRN IV NAUSEA/VOMITING; Start 01/14/19 at 07:00; Stop 01/15/19 at 06:59; Status DC Fentanyl Citrate (Fentanyl 2ml Vial) 25 mcg PRN Q5MIN PRN IV MILD PAIN; Start 01/14/19 at 07:00; Stop 01/15/19 at 06:59; Status DC Fentanyl Citrate (Fentanyl 2ml Vial) 50 mcg PRN Q5MIN PRN IV MODERATE TO SEVERE PAIN Last administered on 01/14/19at 12:54; Start 01/14/19 at 07:00; Stop 01/15/19 at 06:59; Status DC Morphine Sulfate (Morphine Sulfate) 1 mg PRN Q10MIN PRN IV SEVERE PAIN; Start 01/14/19 at 07:00; Stop 01/15/19 at 06:59; Status DC Hydromorphone HCl (Dilaudid) 0.5 mg PRN Q10MIN PRN IV SEV PAIN, Second choice Last administered on 01/14/19at 14:10; Start 01/14/19 at 07:00; Stop 01/15/19 at 06:59; Status DC Prochlorperazine Edisylate (Compazine) 5 mg PACU PRN PRN IV NAUSEA, MRX1 Last administered on 01/14/19at 14:00; Start 01/14/19 at 07:00; Stop 01/15/19 at 06:59 ; Status DC Sodium Chloride 1,000 ml @ 0 mls/hr Q0M IV ; Start 01/14/19 at 07:00 Fentanyl Citrate (Fentanyl 2ml Vial) 100 mcg STK-MED ONCE .ROUTE ; Start at 07:54; Stop 01/14/19 at 07:55; Status DC Rocuronium Kelayres (Zemuron) 50 mg STK-MED ONCE .ROUTE ; Start 01/14/19 at 07:54 ; Stop 01/14/19 at 07:55; Status DC Desflurane (Suprane) 90 ml STK-MED ONCE IH ; Start 01/14/19 at 07:55; Stop 01/14 at 07:56; Status DC Phenylephrine HCl (Alexis-Synephrine Inj) 10 mg STK-MED ONCE .ROUTE ; Start at 07:55; Stop 01/14/19 at 07:56; Status DC Propofol 20 ml @ As Directed STK-MED ONCE IV ; Start 01/14/19 at 07:55; Stop at 07:56; Status DC Lidocaine HCl (Lidocaine Pf 2% Vial) 5 ml STK-MED ONCE .ROUTE ; Start 01/14/19 at 07:55; Stop 01/14/19 at 07:56; Status DC Ondansetron HCl (Zofran) 4 mg STK-MED ONCE .ROUTE ; Start 01/14/19 at 07:55; Stop 01/14/19 at 07:56; Status DC Dexamethasone Sodium Phosphate (Decadron) 20 mg STK-MED ONCE .ROUTE ; Start at 07:56; Stop 01/14/19 at 07:57; Status DC Alteplase, Recombinant (Cathflo) 4 mg 1X ONCE INT CAT ; Start 01/14/19 at 08:45 ; Stop 01/14/19 at 08:46; Status DC Cefazolin Sodium/ Dextrose 50 ml @ As Directed STK-MED ONCE IV ; Start 01/14/19 at 08:46; Stop 01/14/19 at 08:47; Status DC Lidocaine HCl 20 ml STK-MED ONCE .ROUTE ; Start 01/14/19 at 08:46; Stop at 08:47; Status DC Iohexol (Omnipaque 300 Mg/ml) 100 ml STK-MED ONCE .ROUTE ; Start 01/14/19 at 08: 47; Stop 01/14/19 at 08:48; Status DC Cellulose (Surgicel Fibrillar 1x2) 1 each STK-MED ONCE .ROUTE Last administered on 01/14/19at 11:07; Start 01/14/19 at 08:47; Stop 01/14/19 at 08:48 ; Status DC Papaverine HCl 60 mg STK-MED ONCE .ROUTE ; Start 01/14/19 at 08:47; Stop at 08:48; Status DC Bupivacaine HCl (Sensorcaine Mpf 0.5%) 30 ml STK-MED ONCE .ROUTE ; Start at 08:47; Stop 01/14/19 at 08:48; Status DC Thrombin 20,000 unit STK-MED ONCE TP ; Start 01/14/19 at 08:47; Stop 01/14/19 at 08:48; Status DC Ketamine HCl (Ketamine) 50 mg STK-MED ONCE .ROUTE ; Start 01/14/19 at 08:59; Stop 01/14/19 at 09:00; Status DC Cefazolin Sodium/ Dextrose 50 ml @ 100 mls/hr 1X ONCE IV Last administered on 01/14/19at 09:24; Start 01/14/19 at 09:15; Stop 01/14/19 at 09:44; Status DC Oxycodone HCl (Roxicodone) 5 mg PRN Q3HRS PRN PO BREAKTHROUGH PAIN Last administered on 01/15/19at 19:17; Start 01/14/19 at 09:15; Stop 01/16/19 at 09:28 ; Status DC Al Hydroxide/Mg Hydroxide (Mylanta Plus Xs) 30 ml PRN Q3HRS PRN PO HEARTBURN / GAS; Start 01/14/19 at 09:15 Calcium Carbonate/ Glycine (Tums) 500 mg PRN Q3HRS PRN PO INDIGESTION; Start at 09:15 Info (Non-Icu Electrolyte Protocol) 1 ea DAILY MC ; Start 01/15/19 at 09:00 Naloxone HCl (Narcan) 0.1 mg PRN Q2MIN PRN IV ADMIN; Start 01/14/19 at 09:15 Sodium Chloride (Normal Saline Flush) 3 ml QSHIFT PRN IV AFTER MEDS AND BLOOD DRAWS; Start 01/14/19 at 09:15 Sodium Chloride 1,000 ml @ 50 mls/hr Q20H IV Last administered on 01/15/19at 07 :16; Start 01/14/19 at 09:03 Oxycodone/ Acetaminophen (Percocet 5/325) 1 tab PRN Q4HRS PRN PO MILD PAIN, 1ST CHOICE; Start 01/14/19 at 09:15; Stop 01/16/19 at 09:28; Status DC Oxycodone/ Acetaminophen (Percocet 5/325) 2 tab PRN Q4HRS PRN PO SEVERE PAIN; Start 01/14/19 at 09:15; Stop 01/16/19 at 09:28; Status DC Acetaminophen (Tylenol) 650 mg Q8HRS PO Last administered on 01/17/19at 06:12; Start 01/14/19 at 14:00 Morphine Sulfate (Morphine Sulfate) 2 mg PRN Q1HR PRN IV PAIN; Start 01/14/19 at 09:15; Stop 01/14/19 at 17:31; Status DC Docusate Sodium (Colace) 100 mg PRN BID PRN PO constipation; Start 01/14/19 at 09:15 Ondansetron HCl (Zofran) 4 mg PRN Q6HRS PRN IV NAUESA, 1ST CHOICE; Start at 09:15 Prochlorperazine Edisylate (Compazine) 5 mg PRN Q6HRS PRN IV N/V, 2nd Choice, MR X1; Start 01/14/19 at 09:15 Cefazolin Sodium 1 gm/Dextrose 50 ml @ 100 mls/hr Q6H IV Last administered on 01/15/19at 03:54; Start 01/14/19 at 15:00; Stop 01/15/19 at 03:29; Status DC Hydralazine HCl (Apresoline Inj) 5 mg PRN Q4HRS PRN IVP ELEVATED BP, SEE COMMENTS; Start 01/14/19 at 09:15 Labetalol HCl (Normodyne Iv Push) 10 mg PRN Q2HR PRN IVP HYPERTENSION, SEE COMMENTS; Start 01/14/19 at 09:15 Ephedrine Sulfate (Akovaz) 50 mg STK-MED ONCE .ROUTE ; Start 01/14/19 at 09:46; Stop 01/14/19 at 09:47; Status DC Heparin Sodium (Porcine) (Heparin Sodium) 10,000 unit STK-MED ONCE .ROUTE ; Start 01/14/19 at 10:06; Stop 01/14/19 at 10:07; Status DC Rocuronium Kelayres (Zemuron) 100 mg STK-MED ONCE .ROUTE ; Start 01/14/19 at 10: 08; Stop 01/14/19 at 10:09; Status DC Vecuronium Kelayres (Norcuron Bolus) 10 mg STK-MED ONCE IV ; Start 01/14/19 at 10 :36; Stop 01/14/19 at 10:37; Status DC Neostigmine Methylsulfate (Bloxiverz) 10 mg STK-MED ONCE .ROUTE ; Start at 10:48; Stop 01/14/19 at 10:49; Status DC Glycopyrrolate (Robinul) 1 mg STK-MED ONCE .ROUTE ; Start 01/14/19 at 10:49; Stop 01/14/19 at 10:50; Status DC Protamine Sulfate (Protamine) 50 mg STK-MED ONCE IV ; Start 01/14/19 at 11:36; Stop 01/14/19 at 11:37; Status DC Cellulose (Surgicel Fibrillar 1x2) 1 each STK-MED ONCE .ROUTE Last administered on 01/14/19at 11:43; Start 01/14/19 at 11:38; Stop 01/14/19 at 11:39 ; Status DC Morphine Sulfate (Morphine Sulfate) 4 mg PRN Q10MIN PRN IV pain Last administered on 01/14/19at 14:25; Start 01/14/19 at 14:20; Stop 01/15/19 at 09:12 ; Status DC Morphine Sulfate (Morphine Sulfate) 2 mg PRN Q1HR PRN IV PAIN Last administered on 01/15/19at 21:20; Start 01/14/19 at 17:45; Stop 01/16/19 at 06:38 ; Status DC Sodium Chloride 1,000 ml @ 1,000 mls/hr Q1H PRN IV hypotension; Start 01/15/19 at 07:26; Stop 01/15/19 at 13:25; Status DC Albumin Human 200 ml @ 200 mls/hr 1X PRN PRN IV Hypotension; Start 01/15/19 at 07:30; Stop 01/15/19 at 13:29; Status DC Acetaminophen (Tylenol) 500 mg 1X PRN PRN PO MILD PAIN / TEMP; Start 01/15/19 at 07:30; Stop 01/16/19 at 07:29; Status DC Diphenhydramine HCl (Benadryl) 25 mg 1X PRN PRN IV ITCHING Last administered on 01/15/19at 08:00; Start 01/15/19 at 07:30; Stop 01/16/19 at 07:29; Status DC Diphenhydramine HCl (Benadryl) 25 mg 1X PRN PRN IV ITCHING; Start 01/15/19 at 07:30; Stop 01/16/19 at 07:29; Status DC Sodium Chloride 1,000 ml @ 400 mls/hr Q2H30M PRN IV PATENCY; Start 01/15/19 at 07:26; Stop 01/15/19 at 19:25; Status DC Info (PHARMACY MONITORING -- do not chart) 1 each PRN DAILY PRN MC SEE COMMENTS ; Start 01/15/19 at 07:30; Status Cancel Diphenhydramine HCl (Benadryl) 50 mg STK-MED ONCE .ROUTE ; Start 01/15/19 at 07: 34; Stop 01/15/19 at 07:35; Status DC Morphine Sulfate (Morphine Sulfate) 2 mg PRN Q1HR PRN IV SEVERE PAIN Last administered on 01/16/19at 06:56; Start 01/16/19 at 06:38 Oxycodone/ Acetaminophen (Percocet 7.5/ 325) 1 tab PRN Q4HRS PRN PO PAIN Last administered on 01/17/19at 08:14; Start 01/16/19 at 09:30 Sodium Chloride 1,000 ml @ 1,000 mls/hr Q1H PRN IV hypotension; Start 01/17/19 at 07:27; Stop 01/17/19 at 13:26; Status DC Sodium Chloride 1,000 ml @ 400 mls/hr Q2H30M PRN IV PATENCY; Start 01/17/19 at 07:27; Stop 01/17/19 at 19:26 Info (PHARMACY MONITORING -- do not chart) 1 each PRN DAILY PRN MC SEE COMMENTS ; Start 01/17/19 at 07:30; Status UNV Info (PHARMACY MONITORING -- do not chart) 1 each PRN DAILY PRN MC SEE COMMENTS ; Start 01/17/19 at 07:30; Status UNV Diphenhydramine HCl (Benadryl) 50 mg 1X ONCE IVP Last administered on at 08:45; Start 01/17/19 at 08:45; Stop 01/17/19 at 08:46; Status DC Active Scripts Active Hydrocodone-Apap 5-325 (Hydrocodone Bit/Acetaminophen) 1 Tab Tablet 1 Tab PO Q4H PRN 14 Days Atorvastatin Calcium 40 Mg Tablet 40 Mg PO QHS Cozaar (Losartan Potassium) 50 Mg Tablet 50 Mg PO DAILY Flomax (Tamsulosin Hcl) 0.4 Mg Cap.er.24h 0.4 Mg PO QHS Reported Aspirin 81 Mg Tab.chew 320 Mg PO DAILY Metoprolol Tartrate 100 Mg Tablet 1 Tab PO BID Plavix (Clopidogrel Bisulfate) 75 Mg Tablet 75 PO DAILY Hydralazine Hcl 50 Mg Tablet 50 TID Nephro-Chilo Tablet (Folic Acid/Vitamin B Comp W-C) 0.8 Mg Tablet 1 Tab PO DAILY Paroxetine Hcl 20 Mg Tablet 40 Mg PO DAILY Tums (Calcium Carbonate) 200 Mg Tab.chew 800 Mg PO TIDAC Omeprazole Magnesium 20 Mg Capsule.dr 20 Mg PO DAILY Vitals/I & O Vital Sign - Last 24 Hours 01/16/19 01/16/19 01/16/19 01/16/19 15:00 15:47 16:05 19:40 Temp 97.4 97.4 97.9 97.4 97.4 97.9 Pulse 57 57 57 60 Resp 18 B/P (MAP) 116/57 (76) 116/52 116/57 (76) 131/48 (75) Pulse Ox 100 100 100 O2 Delivery Room Air Room Air Room Air 01/16/19 01/16/19 01/16/19 01/16/19 20:00 20:04 20:06 23:20 Temp 97.7 97.7 Pulse 58 59 Resp 18 B/P (MAP) 131/48 141/63 (89) Pulse Ox 94 O2 Delivery Room Air Room Air Room Air 01/16/19 01/17/19 01/17/19 01/17/19 23:25 03:00 03:07 04:07 Temp 97.5 97.5 Pulse 63 60 Resp 17 B/P (MAP) 140/63 148/53 (84) Pulse Ox 99 O2 Delivery Room Air Room Air Room Air 01/17/19 01/17/19 01/17/19 07:45 08:14 12:35 Temp 97.8 97.8 Pulse 52 57 Resp 20 20 12 B/P (MAP) 125/62 (83) 140/77 (98) Pulse Ox 100 100 O2 Delivery Room Air Room Air Room Air Intake and Output 01/16/19 01/16/19 01/17/19 14:59 22:59 06:59 Intake Total 220 ml 100 ml 100 ml Output Total 0 ml Balance 220 ml 100 ml 100 ml ZUHAIR IBRAHIM MD Jan 17, 2019 13:56
[2019-01-17] MEDS: CLOPIDOGREL BISULFATE 75 MG TABLET PO SCH (14:17)
[2019-01-17] MEDS: PANTOPRAZOLE 40 MG TABLET.DR. PO SCH (14:17)
[2019-01-17] MEDS: FOLIC/VIT B COMP W-C (RENAL) TABLET. PO SCH (14:17)
[2019-01-17] MEDS: LOSARTAN POTASSIUM 50 MG TABLET. PO SCH (14:18)
[2019-01-17] MEDS: PARoxetine 20 MG TABLET PO SCH (14:18)
[2019-01-17] MEDS: ASPIRIN CHEWABLE 81 MG TABLET. PO SCH (14:18)
[2019-01-17 15:11] VITALS: BP 117/51
[2019-01-17] MEDS: IV NORMAL SALINE 1000ML BAG 1,000 ML IV SCH (15:54)
[2019-01-17 18:34] VITALS: BP 114/63
[2019-01-17] MEDS: ATORVASTATIN CALCIUM 40 MG TABLET. PO SCH (21:44)
[2019-01-17] MEDS: TAMSULOSIN 0.4 MG CAP.ER.24H. PO SCH (21:44)
[2019-01-17 22:53] VITALS: BP 122/57
[2019-01-18] MEDS: oxyCODONE/APAP 7.5/325 1 TAB TABLET PO PRN ×3 (03:09→16:43)
[2019-01-18 03:10] VITALS: BP 121/59
[2019-01-18] MEDS: ACETAMINOPHEN 325 MG TABLET. PO SCH (06:27)
[2019-01-18 07:30] VITALS: BP 122/61
[2019-01-18] MEDS: LOSARTAN POTASSIUM 50 MG TABLET. PO SCH (08:04)
[2019-01-18] MEDS: CALCIUM CARBONATE 500 MG TAB.CHEW PO SCH ×3 (08:04→15:24)
[2019-01-18] MEDS: FOLIC/VIT B COMP W-C (RENAL) TABLET. PO SCH (08:05)
[2019-01-18] MEDS: PANTOPRAZOLE 40 MG TABLET.DR. PO SCH (08:05)
[2019-01-18] MEDS: PARoxetine 20 MG TABLET PO SCH (08:05)
[2019-01-18] MEDS: CLOPIDOGREL BISULFATE 75 MG TABLET PO SCH (08:05)
[2019-01-18] MEDS: ASPIRIN CHEWABLE 81 MG TABLET. PO SCH (08:06)
[2019-01-18] MEDS: ALPRAZolam 1 MG TABLET PO SCH ×3 (08:06→20:22)
[2019-01-18] MEDS: ELECTROLYTE (NON-ICU) PROTOCOL MC SCH (09:00)
[2019-01-18] MEDS: MORPHINE SULFATE 2 MG/ML VIAL. IV PRN (09:31)
[2019-01-18] MEDS: IV NORMAL SALINE 1000ML BAG 1,000 ML IV SCH (10:59)
[2019-01-18 11:00] VITALS: BP 90/52
--- NOTE | 2019-01-18 11:48 | PDOC ---
Provider Note Provider Note AF VSS awake and alert right groin prevena vac in place with no hematoma, right thigh incision intact with no erythema/drainage doppler graft pulse in thigh and doppler PT/DP pulse in the right foot, no swelling A/P s/p right femoral to popliteal artery bypass for rest pain/claudication - aspirin and plavix daily - pending rehab placement - plan a left arm fistulogram/venogram to evaluate for outflow obstruction tomorrow with IR AUDREY BELTRAN MD Jan 18, 2019 11:48
[2019-01-18] MEDS: MORPHINE SULFATE 4 MG/ML VIAL. IV PRN ×3 (11:53→20:24)
[2019-01-18] MEDS: METOPROLOL TART IMMED RELEASE 50 MG TABLET. PO SCH ×2 (11:55→20:23)
[2019-01-18] MEDS ORDERED: ACETAMINOPHEN 325 MG TABLET. PO PRN (13:15)
[2019-01-18 15:00] VITALS: BP 121/59
[2019-01-18 19:15] VITALS: BP 120/58
[2019-01-18] MEDS: ATORVASTATIN CALCIUM 40 MG TABLET. PO SCH (20:22)
[2019-01-18] MEDS: TAMSULOSIN 0.4 MG CAP.ER.24H. PO SCH (20:23)
--- NOTE | 2019-01-18 21:55 | PN ---
DATE: 01/18/2019 SUBJECTIVE: The patient is resting, slightly propped up in bed, in no apparent distress. Apparently, there are plans for a fistulogram and for him to be discharged to a shelter facility for rehabilitation. The patient continued to complain of severe pain out of proportion. The blood supply to his right foot is much improved now, insisting on IV morphine. PHYSICAL EXAMINATION: GENERAL: When I examined him this morning, he looked well and was clearly in no apparent respiratory distress, pale, but no jaundice, cyanosis, or thyromegaly. No jugular venous distention. No lower limb edema. VITAL SIGNS: His heart rate was 58, blood pressure was 122/61, temperature was 97, respiratory rate was 18 and oxygen saturation was 97% on 2 liters of oxygen. The rest of the exam has not really changed. He is completely anuric and hemodialysis-dependent. His intake was 420, no output was recorded. His blood sugar seems to be well controlled. His right thigh incision is intact with no redness, drainage or tenderness. Posterior tibial and dorsalis pedis pulses are easily audible. ASSESSMENT: Severe claudication or rest pain for which he underwent right femoral to popliteal artery bypass graft surgery. 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 SUHAS FORD MD DR: TAMAR/alyson JOB#: [id number] / [id number]
[2019-01-18 23:20] VITALS: BP 125/57
[2019-01-19] VITALS (10 sets, daily range): BP systolic 105–120; BP diastolic 43–62
[2019-01-19] MEDS: MORPHINE SULFATE 4 MG/ML VIAL. IV PRN ×3 (03:20→11:28)
[2019-01-19] MEDS: ASPIRIN CHEWABLE 81 MG TABLET. PO SCH (08:38)
[2019-01-19] MEDS: CALCIUM CARBONATE 500 MG TAB.CHEW PO SCH ×3 (08:38→16:30)
[2019-01-19] MEDS: PANTOPRAZOLE 40 MG TABLET.DR. PO SCH (08:38)
[2019-01-19] MEDS: CLOPIDOGREL BISULFATE 75 MG TABLET PO SCH (08:39)
[2019-01-19] MEDS: LOSARTAN POTASSIUM 50 MG TABLET. PO SCH (08:39)
[2019-01-19] MEDS: ALPRAZolam 1 MG TABLET PO SCH ×2 (08:39→14:00)
[2019-01-19] MEDS: METOPROLOL TART IMMED RELEASE 50 MG TABLET. PO SCH (08:39)
[2019-01-19] MEDS: FOLIC/VIT B COMP W-C (RENAL) TABLET. PO SCH (08:39)
[2019-01-19] MEDS: PARoxetine 20 MG TABLET PO SCH (08:39)
--- NOTE | 2019-01-19 08:54 | PDOC ---
Provider Note Provider Note Vascular Patient seen and examined in room. AF VSS awake and alert right groin prevena vac in place with no hematoma, right thigh incision intact with no erythema/drainage doppler graft pulse in thigh and doppler PT/DP pulse in the right foot, no swelling A/P s/p right femoral to popliteal artery bypass for rest pain/claudication - aspirin and plavix daily - pending rehab placement - plan a left arm fistulogram/venogram to evaluate for outflow obstruction tomorrow with IR - Follow up in as scheduled, appointment card in chart TAMMI PRATER APRN Jan 19, 2019 08:54
[2019-01-19] MEDS: ELECTROLYTE (NON-ICU) PROTOCOL MC SCH (09:00)
[2019-01-19] MEDS: IV NORMAL SALINE 1000ML BAG 1,000 ML IV SCH (09:03)
--- NOTE | 2019-01-19 09:47 | NUR ---
SS following up with discharge planning. PT recommended acute rehab at discharge. SS met with pt to discuss acute rehabilitation. Pt reported that he was from [place] and acute rehabilitation was too far away. Pt reported that he would prefer to go to [facility] unit in [place] and was agreeable to [facility], [id number]; fax [phone]. SS phoned and faxed referral to [facility]. SS will await acceptance decision and will proceed accordingly with discharge planning. Pt's RN notified.
--- NOTE | 2019-01-19 10:29 | NUR ---
SS following up with discharge planning. SS received notification from [facility], [id number], stating that they would not be able to provide transport to and from dialysis for pt. SS met with pt and discussed. Pt reported that his cannot drive him and requested that SS phone and fax referral to [facility], ; fax [phone]. SS phoned and faxed referral to [facility]. SS will await acceptance decision and will proceed accordingly. Pt's RN notified.
--- NOTE | 2019-01-19 11:56 | PDOC ---
SUBJECTIVE ROS Sitting in chair, No complaints OBJECTIVE Vital Signs Vital Signs Date Time Temp Pulse Resp B/P (MAP) Pulse Ox O2 Delivery O2 Flow Rate FiO2 01/19/19 11:28 20 97 Room Air 01/19/19 11:10 97.4 51 118/43 (68) 97.4 01/18/19 15:57 2.0 I & 0 Intake and Output 01/19/19 06:59 Intake Total 200 ml Output Total 0 ml Balance 200 ml Intake Oral 200 ml Output Urine Total 0 ml PHYSICAL EXAM Physical Exam GEN: Awake, Oriented x [], In [] distress EYES: Vision Unchanged, Conjunctiva Normal EN: No EN Drainage, Mucous Membranes [] NECK: [] JVD, [] JVP, Supple, [] Thyromegaly CVS: S1S2, [] Murmur, No Gallop, No Rub,[] Edema RESP: [] Rales, [] Rhonchi,[] Acc. Muscle Use GI: BS + ve, NO Bruit, Non Tender, Non Distended : [] CVA tenderness, [] Suprapubic Tenderness DIAGNOSIS/ASSESSMENT Assessment & Plan ESRD - On HD TTS Currently No indication today HD tomorrow as per his schedule s/p right femoral to popliteal artery bypass for rest pain/claudication Pending rehab placement HD access- scheduled for left arm fistulogram/venogram to evaluate for outflow obstruction Anemia- FROM 13 TO 10.3 No hematoma , vascular following HTN- BP stable COMMENT/RELEVANT DATA Meds Current Medications Medications (Trade) Dose Ordered Sig/Cirilo Start Time Stop Time Status Last Admin Dose Admin Acetaminophen (Tylenol) 650 mg PRN Q8HRS PRN 01/18/19 13:15 Acetaminophen/ Hydrocodone Bitart (Lortab 5/325) 1 tab PRN Q4HRS PRN 01/12/19 17:30 01/16/19 09:28 DC 01/14/19 03:52 1 TAB Al Hydroxide/Mg Hydroxide (Mylanta Plus Xs) 30 ml PRN Q3HRS PRN 01/14/19 09:15 Albumin Human 200 ml @ 200 mls/hr 1X PRN PRN 01/15/19 07:30 01/15/19 13:29 DC Alprazolam (Xanax) 1 mg TID 01/12/19 21:00 01/19/19 08:39 1 MG Alteplase, Recombinant (Cathflo) 4 mg 1X ONCE 01/14/19 08:45 01/14/19 08:46 DC Aspirin (Children'S Aspirin) 81 mg DAILY 01/13/19 09:00 01/19/19 08:38 81 MG Atorvastatin Calcium (Lipitor) 40 mg QHS 01/12/19 21:00 01/18/19 20:22 40 MG Bupivacaine HCl (Sensorcaine Mpf 0.5%) 30 ml STK-MED ONCE 01/14/19 08:47 01/14/19 08:48 DC Calcium Carbonate/ Glycine (Tums) 500 mg PRN Q3HRS PRN 01/14/19 09:15 Cefazolin Sodium 1 gm/Dextrose 50 ml @ 100 mls/hr Q6H 01/14/19 15:00 01/15/19 03:29 DC 01/15/19 03:54 100 MLS/HR Cefazolin Sodium 1 gm/Sodium Chloride 500 ml @ 500 mls/hr 1X ONCE 01/14/19 06:00 01/14/19 06:59 DC 01/14/19 09:24 500 MLS/HR Cefazolin Sodium/ Dextrose 50 ml @ 100 mls/hr 1X ONCE 01/14/19 09:15 01/14/19 09:44 DC 01/14/19 09:24 100 MLS/HR Cellulose (Surgicel Fibrillar 1x2) 1 each STK-MED ONCE 01/14/19 11:38 01/14/19 11:39 DC 01/14/19 11:43 1 EACH Clopidogrel Bisulfate (Plavix) 75 mg DAILY 01/13/19 09:00 01/19/19 08:39 75 MG Desflurane (Suprane) 90 ml STK-MED ONCE 01/14/19 07:55 01/14/19 07:56 DC Dexamethasone Sodium Phosphate (Decadron) 20 mg STK-MED ONCE 01/14/19 07:56 01/14/19 07:57 DC Diphenhydramine HCl (Benadryl) 50 mg 1X ONCE 01/17/19 08:45 01/17/19 08:46 DC 01/17/19 08:45 50 MG Docusate Sodium (Colace) 100 mg PRN BID PRN 01/14/19 09:15 Ephedrine Sulfate (Akovaz) 50 mg STK-MED ONCE 01/14/19 09:46 01/14/19 09:47 DC Fentanyl Citrate (Fentanyl 2ml Vial) 100 mcg STK-MED ONCE 01/14/19 07:54 01/14/19 07:55 DC Glycopyrrolate (Robinul) 1 mg STK-MED ONCE 01/14/19 10:49 01/14/19 10:50 DC Heparin Sodium (Porcine) (Heparin Sodium) 10,000 unit STK-MED ONCE 01/14/19 10:06 01/14/19 10:07 DC Heparin Sodium (Porcine) 5000 unit/Sodium Chloride 505 ml @ 505 mls/hr 1X ONCE 01/14/19 06:00 01/14/19 06:59 DC 01/14/19 09:55 Hydralazine HCl (Apresoline Inj) 5 mg PRN Q4HRS PRN 01/14/19 09:15 Hydralazine HCl (Apresoline) 50 mg TID 01/12/19 21:00 01/19/19 08:38 50 MG Hydromorphone HCl (Dilaudid) 0.5 mg PRN Q10MIN PRN 01/14/19 07:00 01/15/19 06:59 DC 01/14/19 14:10 0.5 MG Info (Non-Icu Electrolyte Protocol) 1 ea DAILY 01/15/19 09:00 01/17/19 09:00 1 EA Info (PHARMACY MONITORING -- do not chart) 1 each PRN DAILY PRN 01/17/19 07:30 UNV Iohexol (Omnipaque 300 Mg/ml) 100 ml STK-MED ONCE 01/14/19 08:47 01/14/19 08:48 DC Ketamine HCl (Ketamine) 50 mg STK-MED ONCE 01/14/19 08:59 01/14/19 09:00 DC Labetalol HCl (Normodyne Iv Push) 10 mg PRN Q2HR PRN 01/14/19 09:15 Lidocaine HCl 20 ml STK-MED ONCE 01/14/19 08:46 01/14/19 08:47 DC Lidocaine HCl (Lidocaine Pf 2% Vial) 5 ml STK-MED ONCE 01/14/19 07:55 01/14/19 07:56 DC Losartan Potassium (Cozaar) 50 mg DAILY 01/13/19 09:00 01/19/19 08:39 50 MG Metoprolol Tartrate (Lopressor) 100 mg BID 01/12/19 21:00 01/19/19 08:39 100 MG Morphine Sulfate (Morphine Sulfate) 4 mg PRN Q2HR PRN 01/18/19 11:30 01/19/19 11:28 4 MG Naloxone HCl (Narcan) 0.1 mg PRN Q2MIN PRN 01/14/19 09:15 Neostigmine Methylsulfate (Bloxiverz) 10 mg STK-MED ONCE 01/14/19 10:48 01/14/19 10:49 DC Ondansetron HCl (Zofran) 4 mg PRN Q6HRS PRN 01/14/19 09:15 Oxycodone HCl (Roxicodone) 5 mg PRN Q3HRS PRN 01/14/19 09:15 01/16/19 09:28 DC 01/15/19 19:17 5 MG Oxycodone/ Acetaminophen (Percocet 5/325) 2 tab PRN Q4HRS PRN 01/14/19 09:15 01/16/19 09:28 DC Oxycodone/ Acetaminophen (Percocet 7.5/ 325) 1 tab PRN Q4HRS PRN 01/16/19 09:30 01/18/19 16:43 1 TAB Pantoprazole Sodium (Protonix) 40 mg DAILYAC 01/13/19 07:30 01/19/19 08:38 40 MG Papaverine HCl 60 mg STK-MED ONCE 01/14/19 08:47 01/14/19 08:48 DC Paroxetine HCl (Paxil) 40 mg DAILY 01/13/19 09:00 01/19/19 08:39 40 MG Phenylephrine HCl (Alexis-Synephrine Inj) 10 mg STK-MED ONCE 01/14/19 07:55 01/14/19 07:56 DC Prochlorperazine Edisylate (Compazine) 5 mg PRN Q6HRS PRN 01/14/19 09:15 Propofol 20 ml @ As Directed STK-MED ONCE 01/14/19 07:55 01/14/19 07:56 DC Protamine Sulfate (Protamine) 50 mg STK-MED ONCE 01/14/19 11:36 01/14/19 11:37 DC Rocuronium [place] (Zemuron) 100 mg STK-MED ONCE 01/14/19 10:08 01/14/19 10:09 DC Sodium Chloride 1,000 ml @ 400 mls/hr Q2H30M PRN 01/17/19 07:27 01/17/19 19:26 DC Sodium Chloride (Normal Saline Flush) 3 ml QSHIFT PRN 01/14/19 09:15 Tamsulosin HCl (Flomax) 0.4 mg QHS 01/12/19 21:00 01/18/19 20:23 0.4 MG Thrombin 20,000 unit STK-MED ONCE 01/14/19 08:47 01/14/19 08:48 DC Vecuronium [place] (Norcuron Bolus) 10 mg STK-MED ONCE 01/14/19 10:36 01/14/19 10:37 DC Vitamin B Complex/ Vitamin C (Frances-Chilo) 1 tab DAILY 01/13/19 09:00 01/19/19 08:39 1 TAB Lab Laboratory Tests Test 01/18/19 16:52 01/18/19 20:45 01/19/19 07:35 01/19/19 11:28 Glucose (Fingerstick) 91 mg/dL (70-99) 92 mg/dL (70-99) 82 mg/dL (70-99) 90 mg/dL (70-99) Results All relevant outside records, renal labs, imaging studies, telemetry/EKG's were reviewed. PLACIDO MENDOZA MD Jan 19, 2019 11:56
[2019-01-19] MEDS ORDERED: LIDOCAINE WITH 8.4% SOD BICARB 3 ML DISP.SYRIN. ONE (12:38)
[2019-01-19] MEDS ORDERED: IODIXANOL 320 MG/ML 100 ML VIAL. ONE (12:38)
[2019-01-19] MEDS ORDERED: IODIXANOL 320 MG/ML 50ML VIAL. ONE (12:39)
[2019-01-19] MEDS ORDERED: fentaNYL PF VIAL 100 MCG/2 ML VIAL ONE (12:50)
[2019-01-19] MEDS ORDERED: MIDAZOLAM HCL/PF 2 MG/2 ML VIAL. ONE (12:50)
[2019-01-19] MEDS ORDERED: HEPARIN for IV BOLUS 10,000 UNIT/10 ML VIAL. ONE (12:50)
[2019-01-19] MEDS ORDERED: HEPARIN for IV BOLUS 10,000 UNIT/10 ML VIAL. IV ONE (13:15)
[2019-01-19] MEDS ORDERED: IODIXANOL 320 MG/ML 100 ML VIAL. IV ONE (13:15)
[2019-01-19] MEDS ORDERED: fentaNYL PF VIAL 100 MCG/2 ML VIAL IV ONE (13:15)
[2019-01-19] MEDS ORDERED: LIDOCAINE WITH 8.4% SOD BICARB 3 ML DISP.SYRIN. IJ ONE (13:15)
[2019-01-19] MEDS ORDERED: IODIXANOL 320 MG/ML 50ML VIAL. IV ONE (13:15)
[2019-01-19] MEDS ORDERED: MIDAZOLAM HCL/PF 2 MG/2 ML VIAL. IV ONE (13:15)
--- NOTE | 2019-01-19 13:43 | NUR ---
SS following for discharge planning. SS received notification from [facility] stating that pt has been clinically denied. SS phoned and faxed referral to [facility], ; fax [phone]. SS will await acceptance decision and will proceed accordingly with discharge planning. Pt's RN notified.
[2019-01-19] MEDS ORDERED: CONTRAST GIVEN. MC PRN (14:00)
[2019-01-19] MEDS ORDERED: OXYC1TAB19 PO (14:12)
--- NOTE | 2019-01-19 14:13 | DISCH ---
DISCHARGE DISCHARGE INFORMATION: CONDITION ON DISCHARGE: Stable CODE STATUS: Code Status: Full HALF-WAY: SNF STAY <30 DAYS: Yes POST DISCHARGE ORDERS: ACTIVITY ORDERS: Activity as tolerated WEIGHT BEARING STATUS: As tolerated BATHING ORDERS: Shower-keep dressing dry DIET AFTER DISCHARGE: Renal WOUND/INCISION CARE: Do not change dressing CHECKS AFTER DISCHARGE: CHECKS AFTER DISCHARGE: Check blood press - daily, Check your Temp as needed, Weigh Yourself Daily TREATMENT/EQUIPMENT ORDERS: ADAPTIVE EQUIPMENT NEEDED: None Physical Therapy For: Evalulation/Treatment Occupational Therapy For: Evaluation/Treatment DISCHARGE MEDICATIONS: Home Meds Active Scripts Oxycodone/Apap 7.5-325 (PERCOCET 7.5-325 MG TABLET ) 1 Each Tablet, 1 TAB PO Q4H PRN for PAIN for 30 Days, #180 TAB 0 Refills Prov:SUHAS FORD MD 01/19/19 Atorvastatin Calcium (ATORVASTATIN CALCIUM) 40 Mg Tablet, 40 MG PO QHS for cholesterol, #30 TAB 1 Refill Prov:JANNA STALLWORTH MD 12/17/18 Losartan Potassium (COZAAR ) 50 Mg Tablet, 50 MG PO DAILY, #30 TAB Prov:WENDI GUTIERREZ MD 09/30/17 Tamsulosin Hcl (FLOMAX) 0.4 Mg Cap.er.24h, 0.4 MG PO QHS, #30 1 Refill Prov:JANNA STALLWORTH MD 06/23/14 Reported Medications Alprazolam (XANAX) 1 Mg Tablet, 1 TAB PO TID, #90 TAB 02/24/18 Aspirin (ASPIRIN) 81 Mg Tab.chew, 320 MG PO DAILY for heart health , #30 TAB 3 Refills 02/07/18 Metoprolol Tartrate (METOPROLOL TARTRATE) 100 Mg Tablet, 1 TAB PO BID, #60 TAB 5 Refills 07/09/17 Clopidogrel Bisulfate (PLAVIX) 75 Mg Tablet, 75 PO DAILY, #90 04/16/17 Hydralazine Hcl (HYDRALAZINE HCL) 50 Mg Tablet, 50 TID, #90 04/16/17 Folic Acid/Vitamin B Comp W-C (NEPHRO-CARISSA TABLET) 0.8 Mg Tablet, 1 TAB PO DAILY , #30 TAB 5 Refills 01/02/17 Paroxetine Hcl (PAROXETINE HCL) 20 Mg Tablet, 40 MG PO DAILY, #30 TAB 5 Refills 12/15/16 Calcium Carbonate (TUMS) 200 Mg Tab.chew, 800 MG PO TIDAC, TAB.CHEW 12/15/16 Omeprazole Magnesium (OMEPRAZOLE MAGNESIUM) 20 Mg Capsule.dr, 20 MG PO DAILY 10/16/16 Discontinued Scripts Hydrocodone Bit/Acetaminophen (HYDROCODONE-APAP 5-325 ) 1 Tab Tablet, 1 TAB PO Q4H PRN for PAIN for 14 Days, #84 TAB 0 Refills Prov:SUHAS FORD MD 01/03/19 SUHAS FORD MD Jan 19, 2019 14:13
--- NOTE | 2019-01-19 16:14 | NUR ---
SS following up with discharge planning. Pt accepted at [facility]. SS phoned and faxed discharge orders to [facility], ; fax [phone]. Pt will discharge today and go to [facility] between 1700 and 1730. [facility] and [facility] to provide transportation. Pt, pt's RN, and pt's spouse notified.
[2019-01-19] MEDS ORDERED: HEPARIN PF 500 UNIT/5 ML DISP.SYRIN. IV ONE (16:45)
--- NOTE | 2019-01-20 00:47 | PN ---
DATE: 01/19/2019 SUBJECTIVE: The patient is sitting comfortably in his recliner and in no apparent distress. On questioning him, he denied any complaint. The nursing staff stated that he continued to ask for IV morphine and stated that the oral medication does not control his pain. He is apparently scheduled for a fistulogram and with the plan to transfer him to swing bed at [facility] if he qualifies to continue rehabilitation there and also to continue hemodialysis as an outpatient. PHYSICAL EXAMINATION: GENERAL: When I examined him this afternoon, he looked well and was clearly in no apparent respiratory distress, pale, but no jaundice, cyanosis or thyromegaly. No jugular venous distention. No lower limb edema. VITAL SIGNS: His heart rate was 62, blood pressure was 120/56, temperature was 98.3, respiratory rate was 20 and oxygen saturation was 97%. HEAD, EYES, EARS, NOSE AND THROAT: Shows normocephalic and atraumatic. NECK: Supple. HEART: Showed normal first and second heart sounds with no gallop, rub or murmur. CHEST: Clear to auscultation. No crepitation or rhonchi. ABDOMEN: Scaphoid, soft and nontender. NEUROLOGIC: He was awake, alert and responding appropriately. All cranial nerves are intact. He moves extremities without difficulty. The surgical incision, the medial aspect of the right thigh is healing nicely with no redness, tenderness or discharge. He has an arteriovenous fistula in the left forearm. He is completely anuric and hemodialysis dependent. Intake and output are incompletely recorded. Blood sugar seems to be well controlled. ASSESSMENT: Severe claudication and rest pain for which he underwent right femoropopliteal bypass graft surgery. Apparently, he is scheduled for a fistulogram and venogram to evaluate outflow obstruction of his arteriovenous fistula and if all is well, he will be transferred or discharged to swing bed at [facility] if he is accepted. SUHAS FORD MD DR: TAMAR/alyson JOB#: [id number] / [id number]
--- NOTE | 2019-01-21 13:22 | RAD ---
Left upper extremity AV fistulogram3.4.19 Indication: Possible central stenosis as indicated by poor flows on dialysis. Some upper extremity edema Discussion: The risks and benefits of the procedure were discussed the patient. Informed consent was obtained. Timeout procedure was performed. The left upper extremity was prepped and draped using sterile barrier technique. The fistula was evaluated by ultrasound and found to be grossly patent. The fistula was accessed using direct ultrasound guidance and micropuncture technique. Reference ultrasound images were saved the medical record. A 7 Turkmen short vascular sheath was placed. Venograms were obtained demonstrating significant stenosis in the left subclavian region, and the left brachiocephalic vein. Multiple large collateral vessels are noted in the left shoulder. These were treated with balloon angioplasty. Subclavian was treated up to 8 mm. The brachycephalic was treated with 10 mm. This improved morphology and flow through the treated lesions with absence of previously seen filling collaterals. Sheath was removed over per string suture. Sterile dressings were applied total fluoroscopy time: 6.7 Minutes Dose area product: 58 Gycm2 The procedures performed under conscious sedation including continuous cardiopulmonary monitoring via dedicated sedation nurse. [id number] sedation time: 30 minutes Impression: 1. Left subclavian vein stenosis treated with balloon angioplasty 2. 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
== END 2019-01-19 17:09 | disposition swing bed (61) | DRG 252 ==
LOC: ER 12:38 → 5 NORTH 13:32 → 2 NORTH 01-14 14:30
PROVIDERS: ADMIT Internal Medicine; ATTEND Internal Medicine
PROC: 5A1D70Z Performance of Urinary Filtration, Intermittent, Less than 6 Hours Per Day (ICD-10-PCS; 2019-01-13)
PROC: 041K0JL Bypass Right Femoral Artery to Popliteal Artery with Synthetic Substitute, Open Approach (ICD-10-PCS; 2019-01-14)
PROC: 04CK0ZZ Extirpation of Matter from Right Femoral Artery, Open Approach (ICD-10-PCS; principal; 2019-01-14 09:30)
PROC: 04CM0ZZ Extirpation of Matter from Right Popliteal Artery, Open Approach (ICD-10-PCS; 2019-01-14 09:30)
PROC: 5A1D70Z Performance of Urinary Filtration, Intermittent, Less than 6 Hours Per Day (ICD-10-PCS; 2019-01-15)
PROC: 5A1D70Z Performance of Urinary Filtration, Intermittent, Less than 6 Hours Per Day (ICD-10-PCS; 2019-01-17)
PROC: 05763ZZ Dilation of Left Subclavian Vein, Percutaneous Approach (ICD-10-PCS; 2019-01-19)
PROC: 05743ZZ Dilation of Left Innominate Vein, Percutaneous Approach (ICD-10-PCS; 2019-01-19)
DX: E11.51 Type 2 diabetes mellitus with diabetic peripheral angiopathy without gangrene (principal); N18.6 End stage renal disease; I13.2 Hypertensive heart and chronic kidney disease with heart failure and with stage 5 chronic kidney disease, or end stage renal disease; I50.22 Chronic systolic (congestive) heart failure; I70.211 Atherosclerosis of native arteries of extremities with intermittent claudication, right leg; E87.5 Hyperkalemia; E11.22 Type 2 diabetes mellitus with diabetic chronic kidney disease; I70.221 Atherosclerosis of native arteries of extremities with rest pain, right leg; E21.3 Hyperparathyroidism, unspecified; F32.9 Major depressive disorder, single episode, unspecified; F41.9 Anxiety disorder, unspecified; D63.1 Anemia in chronic kidney disease; E78.5 Hyperlipidemia, unspecified; I25.10 Atherosclerotic heart disease of native coronary artery without angina pectoris; I25.5 Ischemic cardiomyopathy; J44.9 Chronic obstructive pulmonary disease, unspecified; K21.9 Gastro-esophageal reflux disease without esophagitis; N40.0 Benign prostatic hyperplasia without lower urinary tract symptoms; Z96.1 Presence of intraocular lens; W18.39XA Other fall on same level, initial encounter; Y93.89 Activity, other specified; Z79.899 Other long term (current) drug therapy; Y92.89 Other specified places as the place of occurrence of the external cause; Y99.8 Other external cause status; Z82.3 Family history of stroke; Z83.3 Family history of diabetes mellitus; Z85.118 Personal history of other malignant neoplasm of bronchus and lung; Z85.51 Personal history of malignant neoplasm of bladder; Z90.49 Acquired absence of other specified parts of digestive tract; Z95.1 Presence of aortocoronary bypass graft; Z95.5 Presence of coronary angioplasty implant and graft; Z99.2 Dependence on renal dialysis; Z88.6 Allergy status to analgesic agent; Z80.9 Family history of malignant neoplasm, unspecified; Z84.1 Family history of disorders of kidney and ureter
CPT/HCPCS: 36415; 36902; 36907; 76937; 80048; 80053; 82962; 83735; 84100; 85007; 85025; 85027; 85610; 85730; 86850; 86900; 86901; 99152; 99153; A7015; C1725; C1757; C1769; C1892; C1894; J0690; J0696; J0780; J1100; J1170; J1200; J1644; J2001; J2250; J2270; J2405; J2440; J2704; J2710; J3010; J3490; J7030; J7040; Q9967; 97110; 97116; 99285-25

== ENCOUNTER 2019-01-23 22:13 | Observation (INO) | payer MEDICARE ==
[~2019-01-23] VITALS: Ht 172.7 cm; Wt 66.3 kg
[~2019-01-23 22:13] MED LIST changes: +OXYC1TAB19 PO
--- NOTE | 2019-01-24 00:35 | PHYS DOC ---
Past Medical History Past Medical History: Anxiety, CAD, Cancer, Hypertension, Pancreatitis, Renal Disease, Other Additional Past Medical Histor: BLADDER CANCER, LUNG CANCER Past Surgical History: Appendectomy, Coronary Bypass Surgery Additional Past Surgical Histo: Dialysis shunt L) arm. cardiac stent, lens implants, POWER PORT LEFT CHEST Alcohol Use: Occasionally Drug Use: None Adult General Chief Complaint Chief Complaint: DIZZY/LIGHT HEADED HPI HPI Patient is a 63 year old male who presents with dizziness and lightheadedness. He reports feeling lightheaded earlier today as he was walking and felt "like he was going to pass out" and then his "legs gave out" making him fall. Apparently he was at rehabilitation facility yesterday he got discharged this morning when he went home he took a pain pill and some Xanax and that he felt the symptoms apparently he was a little out of it for about 10 minutes no actually true loss of consciousness according to the He denies LOC, head trauma, or visual changes. He reports an extensive medical history - including but not limited to - lung and bladder cancer, polycystic kidney dz, 5 CABG's - and he is a TTS dialysis patient. Earlier today he finished his dailysis and was given pain pills and xanax, both of which the pt attributes his dizziness to. He denies CP, SOA, n/v, or changes in medications recently. Review of Systems Review of Systems Constitutional: Denies fever or chills Eyes: Denies change in visual acuity, redness, or eye pain HENT: Denies nasal congestion or sore throat Respiratory: Denies cough or shortness of breath Cardiovascular: No additional information not addressed in HPI [] GI: Denies abdominal pain, nausea, vomiting, bloody stools or diarrhea. Admits constipation Neurologic: Denies headache, focal weakness or sensory changes. All other systems were reviewed and found to be within normal limits, except as documented in this note. Current Medications Current Medications Current Medications Medications (Trade) Dose Ordered Sig/Cirilo Start Time Stop Time Status Last Admin Dose Admin Acetaminophen (Tylenol) 1,000 mg 1X ONCE 01/24/19 03:15 01/24/19 03:16 UNV Docusate Sodium (Colace) 100 mg 1X STAT 01/24/19 03:09 01/24/19 03:10 UNV Allergies Allergies Allergies Coded Allergies Type Severity Reaction Last Updated Verified aspirin Allergy Intermediate 06/10/18 Yes Physical Exam Physical Exam Constitutional: no acute distress, ill, toxic appearance. HENT: Normocephalic, atraumatic, bilateral external ears normal, oropharynx moist, no oral exudates, nose normal. Neck: Normal range of motion, no tenderness, supple, no stridor. Cardiovascular:Heart rate regular rhythm, 3/6 systoilc murmur Lungs & Thorax: Bilateral breath sounds clear to auscultation Abdomen: Bowel sounds normal, no tenderness Skin:se below no signs of cellulitis Extremities: No tenderness, no cyanosis, no clubbing, ROM intact, no edema. Neurologic: Alert and oriented X 3, normal motor function, normal sensory function, no focal deficits noted. Muscle strength +5/5 in LE's b/l, dorsalis pedis and tibialis anterior PULSES INTACT IN AFFECTED LWOER extermity surghical incisions look good no signs of infection in the thigh. Psychologic: Affect normal, judgement normal, mood normal. Current Patient Data Vital Signs Vital Signs Date Time Temp Pulse Resp B/P (MAP) Pulse Ox O2 Delivery O2 Flow Rate FiO2 01/24/19 00:30 66 20 100 01/23/19 22:26 98.9 141/62 (88) 98.9 Lab Values Laboratory Tests Test 01/24/19 01:00 White Blood Count 11.9 x10^3/uL (4.0-11.0) H Red Blood Count 3.39 x10^6/uL (4.30-5.70) L Hemoglobin 10.6 g/dL (13.0-17.5) L Hematocrit 31.8 % (39.0-53.0) L Mean Corpuscular Volume 94 fL (79-100) Mean Corpuscular Hemoglobin 31 pg (25-35) Mean Corpuscular Hemoglobin Concent 33 g/dL (31-37) Red Cell Distribution Width 14.2 % (11.5-14.5) Platelet Count 249 x10^3/uL (140-400) Neutrophils (%) (Auto) 88 % (31-73) H Lymphocytes (%) (Auto) 1 % (24-48) L Monocytes (%) (Auto) 8 % (0-9) Eosinophils (%) (Auto) 3 % (0-3) Basophils (%) (Auto) 1 % (0-3) Neutrophils # (Auto) 10.4 x10^3uL (1.8-7.7) H Lymphocytes # (Auto) 0.2 x10^3/uL (1.0-4.8) L Monocytes # (Auto) 0.9 x10^3/uL (0.0-1.1) Eosinophils # (Auto) 0.3 x10^3/uL (0.0-0.7) Basophils # (Auto) 0.1 x10^3/uL (0.0-0.2) Platelet Estimate Pending Prothrombin Time 14.7 SEC (11.7-14.0) H Prothrombin Time INR 1.2 (0.8-1.1) H Sodium Level 134 mmol/L (136-145) L Potassium Level 5.0 mmol/L (3.5-5.1) Chloride Level 97 mmol/L (98-107) L Carbon Dioxide Level 26 mmol/L (21-32) Anion Gap 11 (6-14) Blood Urea Nitrogen 43 mg/dL (8-26) H Creatinine 8.9 mg/dL (0.7-1.3) H Estimated GFR (Cockcroft-Gault) 6.1 BUN/Creatinine Ratio 5 (6-20) L Glucose Level 107 mg/dL (70-99) H Calcium Level 9.2 mg/dL (8.5-10.1) Magnesium Level 2.7 mg/dL (1.8-2.4) H Total Bilirubin 0.6 mg/dL (0.2-1.0) Aspartate Amino Transferase (AST) 25 U/L (15-37) Alanine Aminotransferase (ALT) 9 U/L (16-63) L Alkaline Phosphatase 112 U/L (46-116) Troponin I Quantitative 0.033 ng/mL (0.000-0.055) NR-Uhi-H-Type Natriuretic Peptide 99564 pg/mL (0-124) H Total Protein 6.6 g/dL (6.4-8.2) Albumin 3.1 g/dL (3.4-5.0) L Albumin/Globulin Ratio 0.9 (1.0-1.7) L Laboratory Tests 01/24/19 01:00 Laboratory Tests 01/24/19 01:00 EKG EKG EKG shows a normal sinus rhythm rate of 69 there are some T-wave inversions laterally and inferiorly looks similar to December 13, 2018[] Radiology/Procedures Radiology/Procedures [] Impressions: Chest x-ray and head CT were negative acute Course & Med Decision Making Course & Med Decision Making Mr. Long is a 63 yo M with an extensive medical history of heart disease (w/ 5 CABG's), lung and bladder cancer, dialysis (TTS schedule) for polycystic kidney disease, and claudication on multiple medications and narcotics, presents with dizziness and lightheadedness. recent pad surgery rle. Ddx: Polypharmacy probably most likely. Dehydration/orthostasis stable Anemia no signs of lateralizing neuro effects MD trop neg in ER, admit to obs for serial trops given hx and report of acute onset generalized weakness no evidence of sepsis. considered repeat trop in er but prefers admit and this way can do dialysis under observation admit to hospitalist service per usual local protocol Dragon Disclaimer Dragon Disclaimer This electronic medical record was generated, in whole or in part, using a voice recognition dictation system. Departure Departure Impression: Primary Impression: ESRD on hemodialysis Disposition: ADMITTED INPATIENT Admitting Physician: Other Condition: STABLE Referrals: RED DOMINGO (PCP) JOHN RICHARDS MD Jan 24, 2019 00:35
[2019-01-24 01:14] LABS: BASO # 0.1 x10^3/uL (0.0-0.2); BASO % 1 % (0-3); EOS # 0.3 x10^3/uL (0.0-0.7); EOS % 3 % (0-3); HEMATOCRIT 31.8 % (39.0-53.0); HEMOGLOBIN 10.6 g/dL (13.0-17.5); LYMPH # 0.2 x10^3/uL (1.0-4.8); LYMPH % 1 % (24-48); MEAN CORPUSCULAR HEMOGLOBIN 31 pg (25-35); MEAN CORPUSCULAR HGB CONC 33 g/dL (31-37); MEAN CORPUSCULAR VOLUME 94 fL (79-100); MONO # 0.9 x10^3/uL (0.0-1.1); MONO % 8 % (0-9); NEUT # 10.4 x10^3uL (1.8-7.7); NEUT % 88 % (31-73); PLATELET COUNT 249 x10^3/uL (140-400); RED BLOOD COUNT 3.39 x10^6/uL (4.30-5.70); RED CELL DISTRIBUTION WIDTH 14.2 % (11.5-14.5); WHITE BLOOD COUNT 11.9 x10^3/uL (4.0-11.0)
[2019-01-24 01:17] LABS: PROTHROMBIN TIME PATIENT 14.7 SEC (11.7-14.0)
[2019-01-24 01:28] LABS: CALCIUM 9.2 mg/dL (8.5-10.1); CREATININE 8.9 mg/dL (0.7-1.3); GFR 6.1
[2019-01-24 01:33] LABS: ALBUMIN 3.1 g/dL (3.4-5.0); ALBUMIN/GLOBULIN RATIO 0.9 (1.0-1.7); MAGNESIUM 2.7 mg/dL (1.8-2.4); TOTAL BILIRUBIN 0.6 mg/dL (0.2-1.0); TOTAL PROTEIN 6.6 g/dL (6.4-8.2)
--- NOTE | 2019-01-24 01:58 | RAD ---
CT head without contrast dated 01/24/2019. No comparison available. Clinical data indication: Weakness and trouble ambulating. Syncopal event. TECHNIQUE: Contiguous axial imaging of the head performed from skull base to vertex. No contrast administered. One or more of the following individualized dose reduction techniques were utilized for this examination: 1. Automated exposure control 2. Adjustment of the mA and/or kV according to patient size 3. Use of iterative reconstruction technique. FINDINGS: Ventricles and sulci are moderately prominent for age, bifrontal predominant. No midline shift or mass effect. Brain parenchyma is of normal attenuation. No hemorrhage or extra-axial collection. Posterior fossa and brainstem unremarkable. Visualized paranasal sinuses and mastoid air cells are clear. No apparent calvarial abnormality. IMPRESSION: 1. No evidence of acute intracranial hemorrhage or mass. 2. Bifrontal atrophy. Electronically signed by: Héctor Wong MD (01/24/2019 1:55 AM) [facility]
--- NOTE | 2019-01-24 01:59 | RAD ---
Single view chest dated 01/24/2019. Comparison made to 12/13/2018. Clinical data indication: Weakness. FINDINGS: Single upright portable exam performed. Heart and mediastinal contours are stable. Patient is status post median sternotomy. Left-sided port in place, unchanged. Lungs are somewhat hyperinflated but otherwise clear. No consolidation or pleural effusion. There is a prominent linear markings at the infrahilar regions, likely scar or atelectasis, unchanged. IMPRESSION: No acute radiographic abnormality. Stable findings compared to 12/13/2018. Electronically signed by: Héctor Wong MD (01/24/2019 1:56 AM) [id number]
[2019-01-24] MEDS ORDERED: DOCUSATE SODIUM 100 MG CAPSULE. PO ONE (03:30)
[2019-01-24] MEDS ORDERED: ACETAMINOPHEN 500 MG TABLET PO ONE (03:30)
[2019-01-24 04:00] VITALS: BP 102/63
[2019-01-24 04:02] LABS: % BANDS 1 % (0-9); % MONOS 4 % (0-10); % SEGS 95 % (35-66)
[2019-01-24 04:03] LABS: PLT ESTIMATE ADEQUATE (ADEQUATE)
[2019-01-24 07:00] VITALS: BP 143/47
--- NOTE | 2019-01-24 08:24 | PDOC2 ---
CONSULT Date of Consult Date of Consult DATE: 01/24/19 TIME: 08:15 Reason for Consult Reason for Consult: ESRD Source Source: Chart review, Patient History of Present Illness Reason for Visit: Patient is a 63 year old male ESRD TTS dialysis frequent hospitalizations( every 1-2 weeks mostly) who presented to ED with dizziness and lightheadedness. He reports he felt "like he was going to pass out" and then his "legs gave out" making him fall. Apparently he was at rehabilitation facility and got discharged yesterday when he went home he took a pain pill and some Xanax and that he felt the symptoms apparently he was a little out of it for about 10 minutes no actually true loss of consciousness according to the . He denies LOC, head trauma, or visual changes. He has extensive medical history - lung and bladder cancer, polycystic kidney dz, 5 CABG's Past Medical History Cardiovascular: CAD, CHF, HTN, [place] Pulmonary: No pertinent hx, Bronchitis, Other GI: Constipation, GERD, Other Heme/Onc: Anemia NOS, Cancer Psych: Anxiety, Depression Renal/: Chronic renal failure, Bladder Ca., Other Endocrine: Diabetes, Hyperparathyroidism Past Surgical History Past Surgical History: Appendectomy, Cholecystectomy, CABG, Other Family History Family History: Diabetes, Stroke Social History ALCOHOL: none Drugs: None Lives: with Family Domestic Violence: Neg Current Medications Current Medications Current Medications Acetaminophen (Tylenol) 1,000 mg 1X ONCE PO Last administered on 01/24/19at 03: 31; Start 01/24/19 at 03:30; Stop 01/24/19 at 03:31; Status DC Docusate Sodium (Colace) 100 mg 1X ONCE PO Last administered on 01/24/19at 03:32 ; Start 01/24/19 at 03:30; Stop 01/24/19 at 03:31; Status DC Active Scripts Active Percocet 7.5-325 Mg Tablet (Oxycodone/Acetaminophen) 1 Each Tablet 1 Tab PO Q4H PRN 30 Days Atorvastatin Calcium 40 Mg Tablet 40 Mg PO QHS Cozaar (Losartan Potassium) 50 Mg Tablet 50 Mg PO DAILY Flomax (Tamsulosin Hcl) 0.4 Mg Cap.er.24h 0.4 Mg PO QHS Reported Xanax (Alprazolam) 1 Mg Tablet 1 Tab PO TID Aspirin 81 Mg Tab.chew 320 Mg PO DAILY Metoprolol Tartrate 100 Mg Tablet 1 Tab PO BID Plavix (Clopidogrel Bisulfate) 75 Mg Tablet 75 PO DAILY Hydralazine Hcl 50 Mg Tablet 50 TID Nephro-Chilo Tablet (Folic Acid/Vitamin B Comp W-C) 0.8 Mg Tablet 1 Tab PO DAILY Paroxetine Hcl 20 Mg Tablet 40 Mg PO DAILY Tums (Calcium Carbonate) 200 Mg Tab.chew 800 Mg PO TIDAC Omeprazole Magnesium 20 Mg Capsule.dr 20 Mg PO DAILY Allergies Allergies: Coded Allergies: aspirin (Verified Allergy, Intermediate, 06/10/18) takes 81mg daily at home ROS Review of System As per HPI Physical Exam Physical Exam GEN: NAD HEEN: Mucous Membranes moist NECK Supple, CVS: S1S2, RESP: CTA bilat, No Acc. Muscle Use GI: BS + ve, NO Bruit, Non Tender : No CVA tenderness, nO Suprapubic Tenderness, No rod Neuro- AXO Skin No rash Vital Signs Vital Signs Date Time Temp Pulse Resp B/P (MAP) Pulse Ox O2 Delivery O2 Flow Rate FiO2 01/24/19 07:00 97.8 66 20 143/47 (79) 98 Room Air 97.8 Assessment & Plan ESRD- On HD TTS Seen on HD tolerating well Continue as ordered HD access- s/p left arm fistulogram/venogram to evaluate for outflow obstruction Post balloon angioplasty CAD s/p previous CABG x5 01/2017--- 12/16/2018 S/P complex PCI/MARILIA to LMCA/LCx/ LAD. Chronic systolic CHF: currently compensated ICM; LVEF 40% HTN: controlled DM- as per primary s/p recent right femoral to popliteal artery bypass for rest pain/claudication Anemia- FROM 13 TO 10.3 No hematoma , vascular following HTN- BP stable Labs Labs Laboratory Tests Test 01/24/19 01:00 01/24/19 06:15 White Blood Count 11.9 x10^3/uL (4.0-11.0) Red Blood Count 3.39 x10^6/uL (4.30-5.70) Hemoglobin 10.6 g/dL (13.0-17.5) Hematocrit 31.8 % (39.0-53.0) Mean Corpuscular Volume 94 fL (79-100) Mean Corpuscular Hemoglobin 31 pg (25-35) Mean Corpuscular Hemoglobin Concent 33 g/dL (31-37) Red Cell Distribution Width 14.2 % (11.5-14.5) Platelet Count 249 x10^3/uL (140-400) Neutrophils (%) (Auto) 88 % (31-73) Lymphocytes (%) (Auto) 1 % (24-48) Monocytes (%) (Auto) 8 % (0-9) Eosinophils (%) (Auto) 3 % (0-3) Basophils (%) (Auto) 1 % (0-3) Neutrophils # (Auto) 10.4 x10^3uL (1.8-7.7) Lymphocytes # (Auto) 0.2 x10^3/uL (1.0-4.8) Monocytes # (Auto) 0.9 x10^3/uL (0.0-1.1) Eosinophils # (Auto) 0.3 x10^3/uL (0.0-0.7) Basophils # (Auto) 0.1 x10^3/uL (0.0-0.2) Segmented Neutrophils % 95 % (35-66) Band Neutrophils % 1 % (0-9) Monocytes % 4 % (0-10) Platelet Estimate Adequate (ADEQUATE) Prothrombin Time 14.7 SEC (11.7-14.0) Prothromb Time International Ratio 1.2 (0.8-1.1) Sodium Level 134 mmol/L (136-145) Potassium Level 5.0 mmol/L (3.5-5.1) Chloride Level 97 mmol/L (98-107) Carbon Dioxide Level 26 mmol/L (21-32) Anion Gap 11 (6-14) Blood Urea Nitrogen 43 mg/dL (8-26) Creatinine 8.9 mg/dL (0.7-1.3) Estimated GFR (Cockcroft-Gault) 6.1 BUN/Creatinine Ratio 5 (6-20) Glucose Level 107 mg/dL (70-99) Calcium Level 9.2 mg/dL (8.5-10.1) Magnesium Level 2.7 mg/dL (1.8-2.4) Total Bilirubin 0.6 mg/dL (0.2-1.0) Aspartate Amino Transf (AST/SGOT) 25 U/L (15-37) Alanine Aminotransferase (ALT/SGPT) 9 U/L (16-63) Alkaline Phosphatase 112 U/L (46-116) Troponin I Quantitative 0.033 ng/mL (0.000-0.055) 0.049 ng/mL (0.000-0.055) JT-Hlo-D-Type Natriuretic Peptide 91099 pg/mL (0-124) Total Protein 6.6 g/dL (6.4-8.2) Albumin 3.1 g/dL (3.4-5.0) Albumin/Globulin Ratio 0.9 (1.0-1.7) Laboratory Tests Test 01/24/19 01:00 01/24/19 06:15 White Blood Count 11.9 x10^3/uL (4.0-11.0) Red Blood Count 3.39 x10^6/uL (4.30-5.70) Hemoglobin 10.6 g/dL (13.0-17.5) Hematocrit 31.8 % (39.0-53.0) Mean Corpuscular Volume 94 fL (79-100) Mean Corpuscular Hemoglobin 31 pg (25-35) Mean Corpuscular Hemoglobin Concent 33 g/dL (31-37) Red Cell Distribution Width 14.2 % (11.5-14.5) Platelet Count 249 x10^3/uL (140-400) Neutrophils (%) (Auto) 88 % (31-73) Lymphocytes (%) (Auto) 1 % (24-48) Monocytes (%) (Auto) 8 % (0-9) Eosinophils (%) (Auto) 3 % (0-3) Basophils (%) (Auto) 1 % (0-3) Neutrophils # (Auto) 10.4 x10^3uL (1.8-7.7) Lymphocytes # (Auto) 0.2 x10^3/uL (1.0-4.8) Monocytes # (Auto) 0.9 x10^3/uL (0.0-1.1) Eosinophils # (Auto) 0.3 x10^3/uL (0.0-0.7) Basophils # (Auto) 0.1 x10^3/uL (0.0-0.2) Segmented Neutrophils % 95 % (35-66) Band Neutrophils % 1 % (0-9) Monocytes % 4 % (0-10) Platelet Estimate Adequate (ADEQUATE) Prothrombin Time 14.7 SEC (11.7-14.0) Prothromb Time International Ratio 1.2 (0.8-1.1) Sodium Level 134 mmol/L (136-145) Potassium Level 5.0 mmol/L (3.5-5.1) Chloride Level 97 mmol/L (98-107) Carbon Dioxide Level 26 mmol/L (21-32) Anion Gap 11 (6-14) Blood Urea Nitrogen 43 mg/dL (8-26) Creatinine 8.9 mg/dL (0.7-1.3) Estimated GFR (Cockcroft-Gault) 6.1 BUN/Creatinine Ratio 5 (6-20) Glucose Level 107 mg/dL (70-99) Calcium Level 9.2 mg/dL (8.5-10.1) Magnesium Level 2.7 mg/dL (1.8-2.4) Total Bilirubin 0.6 mg/dL (0.2-1.0) Aspartate Amino Transf (AST/SGOT) 25 U/L (15-37) Alanine Aminotransferase (ALT/SGPT) 9 U/L (16-63) Alkaline Phosphatase 112 U/L (46-116) Troponin I Quantitative 0.033 ng/mL (0.000-0.055) 0.049 ng/mL (0.000-0.055) RV-Isk-J-Type Natriuretic Peptide 09080 pg/mL (0-124) Total Protein 6.6 g/dL (6.4-8.2) Albumin 3.1 g/dL (3.4-5.0) Albumin/Globulin Ratio 0.9 (1.0-1.7) Review All relevant outside records, renal labs, imaging studies, telemetry/EKG's were reviewed. Images Images 1. Left subclavian vein stenosis treated with balloon angioplasty 2. Left brachiocephalic stenosis treated with balloon angioplasty PLACIDO MENDOZA MD Jan 24, 2019 08:24
--- NOTE | 2019-01-24 08:26 | EKG ---
[facility] [address] [place] [address] Test Date: 2019-01-24 Test Time: 00:19:07 Pat Name: NGUYỄN OCONNOR Department: Room: 673 1 Gender: M Sort Line: : 1955 Requested By: JOHN RICHARDS Order Number: [id number] Reading MD: Ever Eli MD Measurements Intervals [place] Rate: 69 P: 58 OK: 146 QRS: 15 QRSD: 102 T: -144 QT: 414 QTc: 445 Interpretive Statements SINUS RHYTHM LATERAL TWI, PROBABLE LVH VERSUS ISCHEMIA Electronically Signed On 02-03-2019 21:52:36 CDT by Ever Eli MD
[2019-01-24] MEDS ORDERED: IV NORMAL SALINE 1000ML BAG 1,000 ML IV PRN ×2 (08:49)
[2019-01-24] MEDS ORDERED: DIALYSIS PATIENT. MC PRN ×2 (09:00)
[2019-01-24] MEDS ORDERED: ALPRAZolam 1 MG TABLET PO SCH (09:00)
[2019-01-24] MEDS ORDERED: diphenhydrAMINE 50 MG/ML VIAL IVP ONE (09:00)
--- NOTE | 2019-01-24 12:01 | PDOC1 ---
History and Physical Date of Admission Date of Admission 01/24/2019 Identification/Chief Complaint Chief Complaint I was lightheaded Source Source: Chart review, Patient History of Present Illness History of Present Illness Patient is a 63-year-old gentleman with past medical history of end-stage renal disease on hemodialysis and peripheral vascular disease was recently admitted with severe right leg claudication that required a right common femoral artery and profunda artery endarterectomy and right common femoral artery to above- knee popliteal artery graft using PTFE prosthetic as per review of records. As per the patient he has been multiple institutions over the last 6 months and they history of his legs giving out could be multifactorial but on this occasion the patient is getting history of receiving narcotic medication on top of benzodiazepines and sedating agents that may have reduced the symptoms that he experienced yesterday evening. At the time my evaluation patient is receiving hemodialysis he denies lightheadedness no slurred speech no hemiparesis no hemiplegia was reported. The patient denies chest pain no diaphoresis no shortness of breath, no abdominal discomfort. Patient is not presenting neurological deficits and his surgical wounds are well healed with no evidence of infection. ER progress: Patient is a 63 year old male who presents with dizziness and lightheadedness. He reports feeling lightheaded earlier today as he was walking and felt "like he was going to pass out" and then his "legs gave out" making him fall. Apparently he was at rehabilitation facility yesterday he got discharged this morning when he went home he took a pain pill and some Xanax and that he felt the symptoms apparently he was a little out of it for about 10 minutes no actually true loss of consciousness according to the He denies LOC, head trauma, or visual changes. He reports an extensive medical history - including but not limited to - lung and bladder cancer, polycystic kidney dz, 5 CABG's - and he is a TTS dialysis patient. Earlier today he finished his dailysis and was given pain pills and xanax, both of which the pt attributes his dizziness to. He denies CP, SOA, n/v, or changes in medications recently. Past Medical History Cardiovascular: CAD, CHF, HTN, [place] Pulmonary: No pertinent hx, Bronchitis, Other GI: Constipation, GERD, Other Heme/Onc: Anemia NOS, Cancer Psych: Anxiety, Depression Renal/: Chronic renal failure, Bladder Ca., Other Endocrine: Diabetes, Hyperparathyroidism Past Surgical History Past Surgical History: Appendectomy, Cholecystectomy, CABG, Other Family History Family History: Diabetes, Stroke Social History ALCOHOL: none Drugs: None Current Medications Current Medications Current Medications Medications (Trade) Dose Ordered Sig/Cirilo Start Time Stop Time Status Last Admin Dose Admin Acetaminophen (Tylenol) 1,000 mg 1X ONCE 01/24/19 03:30 01/24/19 03:31 DC 01/24/19 03:31 1,000 MG Alprazolam (Xanax) 1 mg TID 01/24/19 09:00 01/24/19 08:38 1 MG Diphenhydramine HCl (Benadryl) 50 mg 1X ONCE 01/24/19 09:00 01/24/19 09:01 DC 01/24/19 09:04 50 MG Docusate Sodium (Colace) 100 mg 1X ONCE 01/24/19 03:30 01/24/19 03:31 DC 01/24/19 03:32 100 MG Info (PHARMACY MONITORING -- do not chart) 1 each PRN DAILY PRN 01/24/19 09:00 Sodium Chloride 1,000 ml @ 400 mls/hr Q2H30M PRN 01/24/19 08:49 01/24/19 20:48 Allergies Allergies Allergies Coded Allergies Type Severity Reaction Last Updated Verified aspirin Allergy Intermediate 06/10/18 Yes ROS Review of System CONSTITUTIONAL: No fever or chills EYES: No recent changes SKIN: No rash or itching CARDIOVASCULAR: No chest pain, syncope, palpitations, or edema RESPIRATORY: No SOB or cough GASTROINTESTINAL: No nausea, vomiting or abdominal pain NEUROLOGICAL: No headaches or weakness ENDOCRINE: No cold or heat intolerance GENITOURINARY: No urgency or frequency of urination MUSCULOSKELETAL: No back pain or joint pain LYMPHATICS: No enlarged lymph nodes PSYCHIATRIC: No anxiety or depression Physical Exam Physical Exam GEN.: No apparent distress. Alert and oriented. HEENT: Head is normocephalic, atraumatic NECK: Supple. LUNGS: Clear to auscultation. HEART: RRR, S1, S2 present. Peripheral pulses intact ABDOMEN: Soft, nontender. Positive bowel sounds. EXTREMITIES: Without any cyanosis. NEUROLOGIC: Normal speech, normal tone PSYCHIATRIC: Normal affect, normal mood. SKIN: No ulcerations Vitals Vitals Vital Signs Date Time Temp Pulse Resp B/P (MAP) Pulse Ox O2 Delivery O2 Flow Rate FiO2 3/9/19 08:00 Room Air 01/24/19 07:00 97.8 66 20 143/47 (79) 98 97.8 Labs Labs Laboratory Tests Test 01/24/19 01:00 01/24/19 06:15 White Blood Count 11.9 x10^3/uL (4.0-11.0) Red Blood Count 3.39 x10^6/uL (4.30-5.70) Hemoglobin 10.6 g/dL (13.0-17.5) Hematocrit 31.8 % (39.0-53.0) Mean Corpuscular Volume 94 fL (79-100) Mean Corpuscular Hemoglobin 31 pg (25-35) Mean Corpuscular Hemoglobin Concent 33 g/dL (31-37) Red Cell Distribution Width 14.2 % (11.5-14.5) Platelet Count 249 x10^3/uL (140-400) Neutrophils (%) (Auto) 88 % (31-73) Lymphocytes (%) (Auto) 1 % (24-48) Monocytes (%) (Auto) 8 % (0-9) Eosinophils (%) (Auto) 3 % (0-3) Basophils (%) (Auto) 1 % (0-3) Neutrophils # (Auto) 10.4 x10^3uL (1.8-7.7) Lymphocytes # (Auto) 0.2 x10^3/uL (1.0-4.8) Monocytes # (Auto) 0.9 x10^3/uL (0.0-1.1) Eosinophils # (Auto) 0.3 x10^3/uL (0.0-0.7) Basophils # (Auto) 0.1 x10^3/uL (0.0-0.2) Segmented Neutrophils % 95 % (35-66) Band Neutrophils % 1 % (0-9) Monocytes % 4 % (0-10) Platelet Estimate Adequate (ADEQUATE) Prothrombin Time 14.7 SEC (11.7-14.0) Prothromb Time International Ratio 1.2 (0.8-1.1) Sodium Level 134 mmol/L (136-145) Potassium Level 5.0 mmol/L (3.5-5.1) Chloride Level 97 mmol/L (98-107) Carbon Dioxide Level 26 mmol/L (21-32) Anion Gap 11 (6-14) Blood Urea Nitrogen 43 mg/dL (8-26) Creatinine 8.9 mg/dL (0.7-1.3) Estimated GFR (Cockcroft-Gault) 6.1 BUN/Creatinine Ratio 5 (6-20) Glucose Level 107 mg/dL (70-99) Calcium Level 9.2 mg/dL (8.5-10.1) Magnesium Level 2.7 mg/dL (1.8-2.4) Total Bilirubin 0.6 mg/dL (0.2-1.0) Aspartate Amino Transf (AST/SGOT) 25 U/L (15-37) Alanine Aminotransferase (ALT/SGPT) 9 U/L (16-63) Alkaline Phosphatase 112 U/L (46-116) Troponin I Quantitative 0.033 ng/mL (0.000-0.055) 0.049 ng/mL (0.000-0.055) BJ-Eis-L-Type Natriuretic Peptide 24204 pg/mL (0-124) Total Protein 6.6 g/dL (6.4-8.2) Albumin 3.1 g/dL (3.4-5.0) Albumin/Globulin Ratio 0.9 (1.0-1.7) Laboratory Tests Test 01/24/19 01:00 01/24/19 06:15 White Blood Count 11.9 x10^3/uL (4.0-11.0) Red Blood Count 3.39 x10^6/uL (4.30-5.70) Hemoglobin 10.6 g/dL (13.0-17.5) Hematocrit 31.8 % (39.0-53.0) Mean Corpuscular Volume 94 fL (79-100) Mean Corpuscular Hemoglobin 31 pg (25-35) Mean Corpuscular Hemoglobin Concent 33 g/dL (31-37) Red Cell Distribution Width 14.2 % (11.5-14.5) Platelet Count 249 x10^3/uL (140-400) Neutrophils (%) (Auto) 88 % (31-73) Lymphocytes (%) (Auto) 1 % (24-48) Monocytes (%) (Auto) 8 % (0-9) Eosinophils (%) (Auto) 3 % (0-3) Basophils (%) (Auto) 1 % (0-3) Neutrophils # (Auto) 10.4 x10^3uL (1.8-7.7) Lymphocytes # (Auto) 0.2 x10^3/uL (1.0-4.8) Monocytes # (Auto) 0.9 x10^3/uL (0.0-1.1) Eosinophils # (Auto) 0.3 x10^3/uL (0.0-0.7) Basophils # (Auto) 0.1 x10^3/uL (0.0-0.2) Segmented Neutrophils % 95 % (35-66) Band Neutrophils % 1 % (0-9) Monocytes % 4 % (0-10) Platelet Estimate Adequate (ADEQUATE) Prothrombin Time 14.7 SEC (11.7-14.0) Prothromb Time International Ratio 1.2 (0.8-1.1) Sodium Level 134 mmol/L (136-145) Potassium Level 5.0 mmol/L (3.5-5.1) Chloride Level 97 mmol/L (98-107) Carbon Dioxide Level 26 mmol/L (21-32) Anion Gap 11 (6-14) Blood Urea Nitrogen 43 mg/dL (8-26) Creatinine 8.9 mg/dL (0.7-1.3) Estimated GFR (Cockcroft-Gault) 6.1 BUN/Creatinine Ratio 5 (6-20) Glucose Level 107 mg/dL (70-99) Calcium Level 9.2 mg/dL (8.5-10.1) Magnesium Level 2.7 mg/dL (1.8-2.4) Total Bilirubin 0.6 mg/dL (0.2-1.0) Aspartate Amino Transf (AST/SGOT) 25 U/L (15-37) Alanine Aminotransferase (ALT/SGPT) 9 U/L (16-63) Alkaline Phosphatase 112 U/L (46-116) Troponin I Quantitative 0.033 ng/mL (0.000-0.055) 0.049 ng/mL (0.000-0.055) EP-Kbu-M-Type Natriuretic Peptide 74741 pg/mL (0-124) Total Protein 6.6 g/dL (6.4-8.2) Albumin 3.1 g/dL (3.4-5.0) Albumin/Globulin Ratio 0.9 (1.0-1.7) VTE Prophylaxis Ordered VTE Prophylaxis Devices: Yes VTE Pharmacological Prophylaxi: Yes Assessment/Plan Assessment/Plan Near syncope episode, most likely etiolgy is polypharmacy End-stage renal disease on hemodialysis Essential hypertension History of hyper parathyroidism Severe peripheral vascular disease status post endarterectomy History of claudication improved Plan: Do orthostatics after dialysis Progress resume home medications and adjust dosing as necessary Patient is negative for orthostasis he may be discharged from hospital with follow-up with his primary care physician Further recommendations based on the clinical course ESTEFANÍA SOSA MD Jan 24, 2019 12:01
[2019-01-24 12:48] VITALS: BP 127/60
[2019-01-24 12:51] VITALS: BP_SYST 108; BP_SYST 116; BP_DIAS 56; BP_DIAS 60
--- NOTE | 2019-01-24 14:15 | PDOC3 ---
Discharge Summary Visit Information Date of Admission: Jan 24, 2019 Date of Discharge: Jan 24, 2019 Admitting Diagnosis: pre syncope Final Diagnosis Near syncope episode, most likely etiology is polypharmacy End-stage renal disease on hemodialysis Essential hypertension History of hyperparathyroidism Severe peripheral vascular disease status post endarterectomy History of claudication improved Brief Hospital Course Allergies Allergies Coded Allergies Type Severity Reaction Last Updated Verified aspirin Allergy Intermediate 06/10/18 Yes Vital Signs Vital Signs Date Time Temp Pulse Resp B/P (MAP) Pulse Ox O2 Delivery O2 Flow Rate FiO2 01/24/19 12:51 95 108/56 (73) 01/24/19 12:48 18 Room Air 01/24/19 07:00 97.8 98 97.8 Lab Results Laboratory Tests Test 01/24/19 01:00 01/24/19 06:15 01/24/19 12:30 White Blood Count 11.9 x10^3/uL (4.0-11.0) Red Blood Count 3.39 x10^6/uL (4.30-5.70) Hemoglobin 10.6 g/dL (13.0-17.5) Hematocrit 31.8 % (39.0-53.0) Mean Corpuscular Volume 94 fL (79-100) Mean Corpuscular Hemoglobin 31 pg (25-35) Mean Corpuscular Hemoglobin Concent 33 g/dL (31-37) Red Cell Distribution Width 14.2 % (11.5-14.5) Platelet Count 249 x10^3/uL (140-400) Neutrophils (%) (Auto) 88 % (31-73) Lymphocytes (%) (Auto) 1 % (24-48) Monocytes (%) (Auto) 8 % (0-9) Eosinophils (%) (Auto) 3 % (0-3) Basophils (%) (Auto) 1 % (0-3) Neutrophils # (Auto) 10.4 x10^3uL (1.8-7.7) Lymphocytes # (Auto) 0.2 x10^3/uL (1.0-4.8) Monocytes # (Auto) 0.9 x10^3/uL (0.0-1.1) Eosinophils # (Auto) 0.3 x10^3/uL (0.0-0.7) Basophils # (Auto) 0.1 x10^3/uL (0.0-0.2) Segmented Neutrophils % 95 % (35-66) Band Neutrophils % 1 % (0-9) Monocytes % 4 % (0-10) Platelet Estimate Adequate (ADEQUATE) Prothrombin Time 14.7 SEC (11.7-14.0) Prothromb Time International Ratio 1.2 (0.8-1.1) Sodium Level 134 mmol/L (136-145) Potassium Level 5.0 mmol/L (3.5-5.1) Chloride Level 97 mmol/L (98-107) Carbon Dioxide Level 26 mmol/L (21-32) Anion Gap 11 (6-14) Blood Urea Nitrogen 43 mg/dL (8-26) Creatinine 8.9 mg/dL (0.7-1.3) Estimated GFR (Cockcroft-Gault) 6.1 BUN/Creatinine Ratio 5 (6-20) Glucose Level 107 mg/dL (70-99) Calcium Level 9.2 mg/dL (8.5-10.1) Magnesium Level 2.7 mg/dL (1.8-2.4) Total Bilirubin 0.6 mg/dL (0.2-1.0) Aspartate Amino Transf (AST/SGOT) 25 U/L (15-37) Alanine Aminotransferase (ALT/SGPT) 9 U/L (16-63) Alkaline Phosphatase 112 U/L (46-116) Troponin I Quantitative 0.033 ng/mL (0.000-0.055) 0.049 ng/mL (0.000-0.055) 0.045 ng/mL (0.000-0.055) IE-Vmo-R-Type Natriuretic Peptide 68326 pg/mL (0-124) Total Protein 6.6 g/dL (6.4-8.2) Albumin 3.1 g/dL (3.4-5.0) Albumin/Globulin Ratio 0.9 (1.0-1.7) Laboratory Tests Test 01/24/19 01:00 01/24/19 06:15 01/24/19 12:30 White Blood Count 11.9 x10^3/uL (4.0-11.0) Red Blood Count 3.39 x10^6/uL (4.30-5.70) Hemoglobin 10.6 g/dL (13.0-17.5) Hematocrit 31.8 % (39.0-53.0) Mean Corpuscular Volume 94 fL (79-100) Mean Corpuscular Hemoglobin 31 pg (25-35) Mean Corpuscular Hemoglobin Concent 33 g/dL (31-37) Red Cell Distribution Width 14.2 % (11.5-14.5) Platelet Count 249 x10^3/uL (140-400) Neutrophils (%) (Auto) 88 % (31-73) Lymphocytes (%) (Auto) 1 % (24-48) Monocytes (%) (Auto) 8 % (0-9) Eosinophils (%) (Auto) 3 % (0-3) Basophils (%) (Auto) 1 % (0-3) Neutrophils # (Auto) 10.4 x10^3uL (1.8-7.7) Lymphocytes # (Auto) 0.2 x10^3/uL (1.0-4.8) Monocytes # (Auto) 0.9 x10^3/uL (0.0-1.1) Eosinophils # (Auto) 0.3 x10^3/uL (0.0-0.7) Basophils # (Auto) 0.1 x10^3/uL (0.0-0.2) Segmented Neutrophils % 95 % (35-66) Band Neutrophils % 1 % (0-9) Monocytes % 4 % (0-10) Platelet Estimate Adequate (ADEQUATE) Prothrombin Time 14.7 SEC (11.7-14.0) Prothromb Time International Ratio 1.2 (0.8-1.1) Sodium Level 134 mmol/L (136-145) Potassium Level 5.0 mmol/L (3.5-5.1) Chloride Level 97 mmol/L (98-107) Carbon Dioxide Level 26 mmol/L (21-32) Anion Gap 11 (6-14) Blood Urea Nitrogen 43 mg/dL (8-26) Creatinine 8.9 mg/dL (0.7-1.3) Estimated GFR (Cockcroft-Gault) 6.1 BUN/Creatinine Ratio 5 (6-20) Glucose Level 107 mg/dL (70-99) Calcium Level 9.2 mg/dL (8.5-10.1) Magnesium Level 2.7 mg/dL (1.8-2.4) Total Bilirubin 0.6 mg/dL (0.2-1.0) Aspartate Amino Transf (AST/SGOT) 25 U/L (15-37) Alanine Aminotransferase (ALT/SGPT) 9 U/L (16-63) Alkaline Phosphatase 112 U/L (46-116) Troponin I Quantitative 0.033 ng/mL (0.000-0.055) 0.049 ng/mL (0.000-0.055) 0.045 ng/mL (0.000-0.055) GG-Rua-Y-Type Natriuretic Peptide 98077 pg/mL (0-124) Total Protein 6.6 g/dL (6.4-8.2) Albumin 3.1 g/dL (3.4-5.0) Albumin/Globulin Ratio 0.9 (1.0-1.7) Brief Hospital Course Mr. Long is a 63 old male who presented with with almost losing consciousness after being discharged from a rehabilitation facility after having had vascular surgery for his severe peripheral vascular disease and claudication. The patient was prescribed hydrocodone and Xanax and the patient is also on a mood stabilizer. In conjunction the patient feels that this was the culprit since all 3 medications were given at the same time and not long after he started experiencing this lightheadedness sensation. He did not percent loss of consciousness no seizure-like activity no chest pain palpitations or any other concerning symptoms were reported by the patient. He received dialysis and orthostatics were done with negative results. The patient did not percent lightheadedness during orthostatic vital signs checkup and he was deemed appropriate for discharge. I have advised patient to stop hydrocodone and Xanax into the only recourse to these medications in cases of needed. He will be following up with his primary care physician and resume dialysis during his normal to see if there is a Saturday schedule. All of his concerns were addressed to the best of my abilities for physical exam see previous note with H&P done earlier in the day Discharge Information Condition at Discharge: Improved Follow Up: Weeks Disposition/Orders: D/C to Home Scheduled Aspirin (Aspirin) 81 Mg Tab.chew, 320 MG PO DAILY for heart health , #30 Ref 3 ( Reported) Entered as Reported by: MATT DUMAS on 02/07/18 1232 Last Action: Reviewed on 01/24/19527 by Candice Willis Atorvastatin Calcium (Atorvastatin Calcium) 40 Mg Tablet, 40 MG PO QHS for cholesterol, #30 Ref 1 Prescribed by: JANNA STALLWORTH on 12/17/181156 Last Action: Reviewed on 01/24/19527 by Candice Willis Calcium Carbonate (Tums) 200 Mg Tab.chew, 800 MG PO TIDAC, (Reported) Entered as Reported by: Ever Crum on 12/15/162014 Last Action: Reviewed on 01/24/19527 by Candice Willis Clopidogrel Bisulfate (Plavix) 75 Mg Tablet, 75 PO DAILY, #90 (Reported) Entered as Reported by: MERVAT BRINK on 04/16/17621 Last Action: Reviewed on 01/24/19527 by Candice Willis Folic Acid/Vitamin B Comp W-C (Nephro-Chilo Tablet) 0.8 Mg Tablet, 1 TAB PO DAILY , #30 Ref 5 (Reported) Entered as Reported by: DARNELL ROSAS on 01/02/17 0836 Last Action: Reviewed on 01/24/19527 by Candice Willis Hydralazine Hcl (Hydralazine Hcl) 50 Mg Tablet, 50 TID, #90 (Reported) Entered as Reported by: MERVAT BRINK on 04/16/17621 Last Action: Reviewed on 01/24/19527 by Candice Willis Losartan Potassium (Cozaar ) 50 Mg Tablet, 50 MG PO DAILY, #30 Prescribed by: WENDI GUTIERREZ MD on 09/30/17 1158 Last Action: Reviewed on 01/24/19527 by Candice Willis Metoprolol Tartrate (Metoprolol Tartrate) 100 Mg Tablet, 1 TAB PO BID, #60 Ref 5 (Reported) Entered as Reported by: DEBBIE GALLAGHER RPH on 07/09/17 0533 Last Action: Reviewed on 01/24/19527 by Candice Willis Omeprazole Magnesium (Omeprazole Magnesium) 20 Mg Capsule.dr, 20 MG PO DAILY, ( Reported) Entered as Reported by: KATHLEEN BERNAL on 10/16/16 0142 Last Action: Reviewed on 01/24/19527 by Candice Willis Paroxetine Hcl (Paroxetine Hcl) 20 Mg Tablet, 40 MG PO DAILY, #30 Ref 5 ( Reported) Entered as Reported by: Ever Crum on 12/15/162126 Last Action: Reviewed on 01/24/19527 by Candice Willis Tamsulosin Hcl (Flomax) 0.4 Mg Cap.er.24h, 0.4 MG PO QHS, #30 Ref 1 Prescribed by: JANNA STALLWORTH on 06/23/14 1033 Last Action: Reviewed on 01/24/19527 by Candice Willis Discontinued Medications Alprazolam (Xanax) 1 Mg Tablet, 1 TAB PO TID, #90 (Reported) Entered as Reported by: KRISTEN CASTILLO on 02/24/182022 Last Action: Continued on 01/24/19822 by Adama Sullivan Hydrocodone Bit/Acetaminophen (Hydrocodone-Apap 5-325 ) 1 Tab Tablet, 1 TAB PO Q4H PRN for PAIN for 14 Days, #84 Ref 0 Prescribed by: LOGAN DAI on 01/03/19 0949 Oxycodone/Apap 7.5-325 (Percocet 7.5-325 Mg Tablet ) 1 Each Tablet, 1 TAB PO Q4H PRN for PAIN for 30 Days, #180 Ref 0 Prescribed by: LOGAN DAI on 01/19/19 1412 Last Action: Reviewed on 01/24/19527 by ESTEFANÍA Castro MD Jan 24, 2019 14:15
[2019-01-24 15:15] VITALS: BP 114/51
--- NOTE | 2019-01-24 16:13 | NUR ---
Patient discharged to home. Discharge instructions, medications, and follow up appointments discussed with patient and spouse. Both verbalized understanding. Discharge papers and prescription given to patient. Port deaccessed. Patient assisted out in wheelchair with staff and spouse at this time.
== END 2019-01-24 16:02 | disposition home or self-care (01) ==
LOC: ER 22:13 → 6 SOUTH 01-24 02:52
PROVIDERS: ADMIT Internal Medicine; ATTEND Internal Medicine
DX: R42 Dizziness and giddiness (principal); R55 Syncope and collapse; F41.9 Anxiety disorder, unspecified; I25.10 Atherosclerotic heart disease of native coronary artery without angina pectoris; K85.90 Acute pancreatitis without necrosis or infection, unspecified; Q61.3 Polycystic kidney, unspecified; K21.9 Gastro-esophageal reflux disease without esophagitis; E21.3 Hyperparathyroidism, unspecified; K59.00 Constipation, unspecified; E11.22 Type 2 diabetes mellitus with diabetic chronic kidney disease; I13.2 Hypertensive heart and chronic kidney disease with heart failure and with stage 5 chronic kidney disease, or end stage renal disease; N18.6 End stage renal disease; I50.9 Heart failure, unspecified; D63.1 Anemia in chronic kidney disease; Z99.2 Dependence on renal dialysis; E11.51 Type 2 diabetes mellitus with diabetic peripheral angiopathy without gangrene; N28.9 Disorder of kidney and ureter, unspecified; Z96.1 Presence of intraocular lens; Z95.5 Presence of coronary angioplasty implant and graft; Z90.49 Acquired absence of other specified parts of digestive tract; Z95.1 Presence of aortocoronary bypass graft; Z98.890 Other specified postprocedural states; Z85.118 Personal history of other malignant neoplasm of bronchus and lung; Z85.51 Personal history of malignant neoplasm of bladder; Z82.3 Family history of stroke; Z83.3 Family history of diabetes mellitus
CPT/HCPCS: 36415; 70450; 71045; 80053; 83735; 83880; 84484; 85007; 85025; 85610; 93005; 96374; 99284; G0378; J1200; G0379

== ENCOUNTER 2019-02-16 20:45 | Inpatient (IN) | payer MEDICARE ==
[~2019-02-16] VITALS: Ht 170.2 cm; Wt 73.7 kg
[2019-02-16 22:56] LABS: BASO # 0.1 x10^3/uL (0.0-0.2); BASO % 1 % (0-3); EOS # 0.6 x10^3/uL (0.0-0.7); EOS % 7 % (0-3); HEMATOCRIT 30.2 % (39.0-53.0); HEMOGLOBIN 10.1 g/dL (13.0-17.5); LYMPH # 0.7 x10^3/uL (1.0-4.8); LYMPH % 8 % (24-48); MEAN CORPUSCULAR HEMOGLOBIN 32 pg (25-35); MEAN CORPUSCULAR HGB CONC 33 g/dL (31-37); MEAN CORPUSCULAR VOLUME 96 fL (79-100); MONO # 0.7 x10^3/uL (0.0-1.1); MONO % 9 % (0-9); NEUT # 6.3 x10^3uL (1.8-7.7); NEUT % 76 % (31-73); PLATELET COUNT 196 x10^3/uL (140-400); RED BLOOD COUNT 3.15 x10^6/uL (4.30-5.70); RED CELL DISTRIBUTION WIDTH 16.7 % (11.5-14.5); WHITE BLOOD COUNT 8.3 x10^3/uL (4.0-11.0)
[2019-02-16 23:07] LABS: CALCIUM 6.7 mg/dL (8.5-10.1); CREATININE 9.2 mg/dL (0.7-1.3); GFR 5.8; POTASSIUM 5.8 mmol/L (3.5-5.1)
[2019-02-16 23:13] LABS: ALBUMIN 3.3 g/dL (3.4-5.0); ALBUMIN/GLOBULIN RATIO 0.9 (1.0-1.7); MAGNESIUM 2.3 mg/dL (1.8-2.4); TOTAL BILIRUBIN 0.4 mg/dL (0.2-1.0)
--- NOTE | 2019-02-16 23:32 | RAD ---
Indication:WEAKNESS, HBP, ANXIETY. HX. OF CARDIAC 5X BYPASS TECHNIQUE:Portable AP chest X-ray COMPARISON:01/24/2019 FINDINGS: Stable position of left chest wall Chemo-Port. CABG changes noted. Patchy opacities seen in the right lower lung zone and in the lingula. Diffuse bilateral prominent bronchial markings are seen. No pneumothorax or pleural effusion. Visualized bony thorax within normal limits. IMPRESSION: 1. Patchy opacities in the right lower lobe and lingula likely pneumonia. 2. Prominent bilateral bronchovascular markings may be secondary to atypical/viral infection/bronchitis. Electronically signed by: Zaid Garcia DO (02/16/2019 11:29 PM) [facility]
[2019-02-16] MEDS ORDERED: FAMOTIDINE 20 MG/2 ML VIAL IVP ONE (23:45)
[2019-02-16] MEDS ORDERED: ONDANSETRON PF 4 MG/2 ML VIAL. IV ONE (23:45)
--- NOTE | 2019-02-16 23:52 | RAD ---
Abdominal and Pelvis CT, Without Contrast: History: Upper abdominal pain. Comparison: November 12, 2018. Procedure: Axial images are obtained of the abdomen and pelvis, without IV or oral contrast. CT Abdomen without Contrast: Findings: Evaluation of solid organs is limited without contrast. Evaluation of stomach and bowel is limited without oral contrast. Liver: Normal. Spleen: Normal. Pancreas: Normal. Adrenal Glands: Normal. Kidneys: There are numerous cysts scattered throughout the kidneys bilaterally. Some are hyperdense. There is no free air or free fluid. There is no lymphadenopathy. Impression: Please see CT Pelvis without Contrast. There has been prior cholecystectomy. End Impression. CT Pelvis without Contrast: Findings: The urinary bladder is mostly collapsed. There is no free fluid. There is no lymphadenopathy. There is no pericolonic inflammation identified. There is a cyst in the right groin which could be from prior procedure. There is significant atheromatous disease with calcification of the aorta and great vessels. There is no aneurysm. The appendix is not seen. Impression: Adult polycystic renal disease. No acute findings. End impression PQRS Compliance Statement: One or more of the following individualized dose reduction techniques were utilized for this examination: 1. Automated exposure control 2. Adjustment of the mA and/or kV according to patient size 3. Use of iterative reconstruction technique Electronically signed by: William Sheets III, MD (02/16/2019 11:50 PM) [facility]
--- NOTE | 2019-02-17 00:01 | PHYS DOC ---
Past Medical History Past Medical History: Anxiety, CAD, Cancer, Hypertension, Pancreatitis, Renal Disease, Other Additional Past Medical Histor: BLADDER CANCER, LUNG CANCER Past Surgical History: Appendectomy, Cholecystectomy, Coronary Bypass Surgery Additional Past Surgical Histo: Dialysis shunt L) arm. cardiac stent, lens implants, POWER PORT LEFT CHEST Alcohol Use: Occasionally Drug Use: None Adult General Chief Complaint Chief Complaint: MULTIPLE COMPLAINTS HPI HPI Patient is a 63 year old male who presents complaining of right leg pain, abdominal pain, diarrhea, nausea, extremity cramping, and anxiety. Patient states that he has a history of anxiety for which he is prescribed Xanax every 6 hours. Patient states that he has been having watery, nonbloody diarrhea nausea, and abdominal pain since this morning. Patient reports 7 total episodes of diarrhea today. Patient states that he was unable to take his Xanax this evening due to his upset stomach. Patient reports pain located in his right upper abdomen and epigastric area. Patient rates the pain to be 7/10. Patient reports cramping in all four of his extremities. Patient states that he has a history of renal failure secondary to polycystic kidney disease for which he undergoes dialysis on . Patient denies missing any days of dialysis. Patient notes that that his extremity cramping feels similar to the cramping he has experienced with hyperkalemia in the past. Patient states that he has been experiencing right lower extremity pain since he underwent a vascular surgery one month ago. Patient states that he is out of Hydrocodone and has been taking Tylenol without relief of his leg pain. Denies vomiting, chest pain, and shortness of breath. Review of Systems Review of Systems Constitutional: Denies fever or chills. Eyes: Denies change in visual acuity or eye pain. HENT: Denies nasal congestion or sore throat. Respiratory: Denies cough or shortness of breath. Cardiovascular: Denies chest pain or palpitations. GI: Denies bloody stools or vomiting. : Denies dysuria or hematuria. Musculoskeletal: Denies back pain or joint pain. Integument: Denies rash or skin lesions. Neurologic: Denies headache and focal weakness. Complete systems were reviewed and found to be within normal limits, except as documented in this note. Current Medications Current Medications Current Medications Medications (Trade) Dose Ordered Sig/Cirilo Start Time Stop Time Status Last Admin Dose Admin Aspirin (Lillian Aspirin) 325 mg 1X ONCE 02/17/19 01:00 02/17/19 01:01 DC 02/17/19 01:30 325 MG Dextrose (Dextrose 50%-Water Syringe) 25 gm 1X ONCE 02/17/19 01:00 02/17/19 01:01 DC 02/17/19 00:42 25 GM Famotidine (Pepcid Vial) 20 mg 1X ONCE 02/16/19 23:45 02/16/19 23:46 DC 02/17/19 00:01 20 MG Fentanyl Citrate (Fentanyl 2ml Vial) 50 mcg 1X ONCE 02/17/19 01:00 02/17/19 01:01 DC 02/17/19 00:50 50 MCG Insulin Human Regular (HumuLIN R VIAL) 10 unit 1X ONCE 02/17/19 01:00 02/17/19 01:01 DC 02/17/19 00:43 10 UNIT Lorazepam (Ativan) 0.5 mg 1X ONCE 02/16/19 23:45 02/16/19 23:46 DC 02/17/19 00:00 0.5 MG Ondansetron HCl (Zofran) 4 mg 1X ONCE 02/16/19 23:45 02/16/19 23:46 DC 02/17/19 00:00 4 MG Allergies Allergies Allergies Coded Allergies Type Severity Reaction Last Updated Verified No Known Drug Allergies 02/17/19 No Physical Exam Physical Exam Constitutional: Well developed, well nourished, non-toxic appearance. HENT: Normocephalic, atraumatic, oropharynx moist. Eyes: PERRL, EOMI, conjunctiva without erythema. Neck: Normal range of motion, no tenderness, supple. Cardiovascular:Heart rate regular rhythm, no murmur. Lungs & Thorax: Bilateral breath sounds clear to auscultation. No wheezing or rhonchi. Abdomen: Soft. Tenderness in epigastric region and right upper quadrant on palpation. Positive Hutchins's sign. Skin: Warm, dry, no rash. Back: No tenderness on palpation. No CVA tenderness. Extremities: No tenderness, ROM intact, no edema. Well healing scars noted on right inner thigh and right groin area. Fistula noted in right forearm with palpable thrill. Right lower extremity swelling noted. Neurologic: Alert and oriented X 3, Decreased sensation in right lower extremity. Strength 3/5 in right lower extremity and 5/5 in left lower extremity. Psychologic: Tearful and anxious. Current Patient Data Vital Signs Vital Signs Date Time Temp Pulse Resp B/P (MAP) Pulse Ox O2 Delivery O2 Flow Rate FiO2 02/17/19 00:50 73 172/74 (106) 94 Room Air 02/17/19 00:50 18 02/16/19 21:30 97.8 97.8 Lab Values Laboratory Tests Test 02/16/19 21:55 White Blood Count 8.3 x10^3/uL (4.0-11.0) Red Blood Count 3.15 x10^6/uL (4.30-5.70) L Hemoglobin 10.1 g/dL (13.0-17.5) L Hematocrit 30.2 % (39.0-53.0) L Mean Corpuscular Volume 96 fL (79-100) Mean Corpuscular Hemoglobin 32 pg (25-35) Mean Corpuscular Hemoglobin Concent 33 g/dL (31-37) Red Cell Distribution Width 16.7 % (11.5-14.5) H Platelet Count 196 x10^3/uL (140-400) Neutrophils (%) (Auto) 76 % (31-73) H Lymphocytes (%) (Auto) 8 % (24-48) L Monocytes (%) (Auto) 9 % (0-9) Eosinophils (%) (Auto) 7 % (0-3) H Basophils (%) (Auto) 1 % (0-3) Neutrophils # (Auto) 6.3 x10^3uL (1.8-7.7) Lymphocytes # (Auto) 0.7 x10^3/uL (1.0-4.8) L Monocytes # (Auto) 0.7 x10^3/uL (0.0-1.1) Eosinophils # (Auto) 0.6 x10^3/uL (0.0-0.7) Basophils # (Auto) 0.1 x10^3/uL (0.0-0.2) Sodium Level 141 mmol/L (136-145) Potassium Level 5.8 mmol/L (3.5-5.1) H Chloride Level 102 mmol/L (98-107) Carbon Dioxide Level 23 mmol/L (21-32) Anion Gap 16 (6-14) H Blood Urea Nitrogen 75 mg/dL (8-26) H Creatinine 9.2 mg/dL (0.7-1.3) H Estimated GFR (Cockcroft-Gault) 5.8 BUN/Creatinine Ratio 8 (6-20) Glucose Level 86 mg/dL (70-99) Calcium Level 6.7 mg/dL (8.5-10.1) L Magnesium Level 2.3 mg/dL (1.8-2.4) Total Bilirubin 0.4 mg/dL (0.2-1.0) Aspartate Amino Transferase (AST) 20 U/L (15-37) Alanine Aminotransferase (ALT) 14 U/L (16-63) L Alkaline Phosphatase 96 U/L (46-116) Creatine Kinase 245 U/L (39-308) Creatine Kinase MB (Mass) 1.8 ng/mL (0.0-3.6) Creatine Kinase MB Relative Index 0.7 % (0-4) Troponin I Quantitative 0.059 ng/mL (0.000-0.055) Total Protein 7.0 g/dL (6.4-8.2) Albumin 3.3 g/dL (3.4-5.0) L Albumin/Globulin Ratio 0.9 (1.0-1.7) L Lipase 610 U/L (73-393) H Laboratory Tests 02/16/19 21:55 Laboratory Tests 02/16/19 21:55 EKG EKG @2225 NSR at 77bpm, NO ST elevation, Q wave in III, nonspecific t wave inversion I and aVL Radiology/Procedures Radiology/Procedures [] Impressions: PROCEDURE: CT ABDOMEN PELVIS WO CONTRAST Abdominal and Pelvis CT, Without Contrast: History: Upper abdominal pain. Comparison: November 12, 2018. Procedure: Axial images are obtained of the abdomen and pelvis, without IV or oral contrast. CT Abdomen without Contrast: Findings: Evaluation of solid organs is limited without contrast. Evaluation of stomach and bowel is limited without oral contrast. Liver: Normal. Spleen: Normal. Pancreas: Normal. Adrenal Glands: Normal. Kidneys: There are numerous cysts scattered throughout the kidneys bilaterally. Some are hyperdense. There is no free air or free fluid. There is no lymphadenopathy. Impression: Please see CT Pelvis without Contrast. There has been prior cholecystectomy. End Impression. CT Pelvis without Contrast: Findings: The urinary bladder is mostly collapsed. There is no free fluid. There is no lymphadenopathy. There is no pericolonic inflammation identified. There is a cyst in the right groin which could be from prior procedure. There is significant atheromatous disease with calcification of the aorta and great vessels. There is no aneurysm. The appendix is not seen. Impression: Adult polycystic renal disease. No acute findings. End impression PQRS Compliance Statement: One or more of the following individualized dose reduction techniques were utilized for this examination: 1. Automated exposure control 2. Adjustment of the mA and/or kV according to patient size 3. Use of iterative reconstruction technique PROCEDURE: PORTABLE CHEST 1V Indication:WEAKNESS, HBP, ANXIETY. HX. OF CARDIAC 5X BYPASS TECHNIQUE:Portable AP chest X-ray COMPARISON:01/24/2019 FINDINGS: Stable position of left chest wall Chemo-Port. CABG changes noted. Patchy opacities seen in the right lower lung zone and in the lingula. Diffuse bilateral prominent bronchial markings are seen. No pneumothorax or pleural effusion. Visualized bony thorax within normal limits. IMPRESSION: 1. Patchy opacities in the right lower lobe and lingula likely pneumonia. 2. Prominent bilateral bronchovascular markings may be secondary to atypical/viral infection/bronchitis. Course & Med Decision Making Course & Med Decision Making Pertinent Labs and Imaging studies reviewed. (See chart for details) Patient presented with multiple complaints including anxiety, right leg pain, extremity cramping, nausea, diarrhea, epigastric pain, and right upper quadrant abdominal pain. Dragon Disclaimer Dragon Disclaimer This electronic medical record was generated, in whole or in part, using a voice recognition dictation system. Departure Departure Impression: Primary Impression: Hyperkalemia Additional Impressions: ESRD on hemodialysis Elevated troponin Elevated lipase Disposition: ADMITTED INPATIENT Admitting Physician: Other (Riffel) Condition: GUARDED Referrals: RED DOMINGO (PCP) Critical Care Time Critical care time was 30 minutes which includes time at bedside, spent in discussion of patient's care with specialists and/or family members, with interpretation of laboratory and/or radiological studies and is exclusive of procedures. Problem Qualifiers ZUHAIR CASEY DO Feb 17, 2019 00:01
[2019-02-17] MEDS ORDERED: INSULIN REGULAR 100 UNIT/ML 3ML VIAL. IV ONE (01:00)
[2019-02-17] MEDS ORDERED: DEXTROSE 50% 25 GM / 50ML DISP.SYRIN. IV ONE (01:00)
[2019-02-17] MEDS ORDERED: fentaNYL PF VIAL 100 MCG/2 ML VIAL IV ONE (01:00)
[2019-02-17] MEDS ORDERED: ASPIRIN 325 MG TABLET PO ONE (01:00)
[2019-02-17] MEDS ORDERED: ONDANSETRON PF 4 MG/2 ML VIAL. IV PRN (01:15)
--- NOTE | 2019-02-17 01:53 | RAD ---
Right Lower Extremity Venous Doppler Ultrasound History: Swelling Comparison: None Procedure: Color flow, duplex, spectral analysis and 2D images are obtained with and without compression in the area of the common femoral vein, superficial femoral vein - femoral vein junction, main femoral vein (superficial femoral vein) and popliteal vein. Veins of the proximal calf are also imaged. Findings: There is normal duplex flow, color flow and compressibility of all visualized vein segments. No evidence of deep venous thrombus is present. There is diffuse soft tissue edema. Impression: No evidence of DVT. Electronically signed by: William Sheets III, MD (02/17/2019 1:50 AM) [facility]
[2019-02-17] MEDS ORDERED: IV NORMAL SALINE 1000ML BAG 1,000 ML IV ONE (02:00)
[2019-02-17] MEDS ORDERED: DEXTROSE 50% 25 GM / 50ML DISP.SYRIN. IV PRN (02:30)
--- NOTE | 2019-02-17 02:59 | NUR ---
Patient was given Humulin R 10 Units and Dextrose 50% 25 grams in ER for Hyperkalemia. Patient arrived to floor at 0150 and during his admitting assessment he stated that he felt his sugar was low. Finger stick was obtained and glucose was 35. Dextrose 50 % 25 grams was given at that time. Re-checked and glucose was 134. Dr. Gimenez notified. Will continue to monitor.
[2019-02-17 03:01] VITALS: BP 175/69
--- NOTE | 2019-02-17 05:56 | EKG ---
[facility] [address] [place] [address] Test Date: 2019-02-16 Test Time: 22:25:10 Pat Name: NGUYỄN OCONNOR Department: Room: [facility] Gender: M [employer]: : [id number] Requested By: ZUHAIR CASEY Order Number: [id number] Reading MD: Ever Eli MD Measurements Intervals [place] Rate: 77 P: 55 ND: 150 QRS: 30 QRSD: 100 T: 139 QT: 458 QTc: 520 Interpretive Statements SINUS RHYTHM CONSISTENT WITH ANTEROSEPTAL INFARCT PROBABLY OLD Electronically Signed On 02-17-2019 8:44:43 CDT by Ever Eli MD
[2019-02-17 07:00] VITALS: BP 137/61
[2019-02-17] MEDS ORDERED: IV NORMAL SALINE 1000ML BAG 1,000 ML IV PRN (08:58)
[2019-02-17] MEDS ORDERED: DIALYSIS PATIENT. MC PRN ×2 (09:00)
[2019-02-17] MEDS ORDERED: diphenhydrAMINE 50 MG/ML VIAL IVP ONE (10:15)
--- NOTE | 2019-02-17 11:15 | HP ---
ADMIT DATE: 02/17/2019 CHIEF COMPLAINT: Right leg pain, abdominal pain, diarrhea, nausea, extremity cramping, anxiety and facial swelling. HISTORY OF PRESENT ILLNESS: The patient is a pleasant 63-year-old male who is well known to our service. We admit him a couple of times a month. He has end-stage renal disease and multiple medical issues. At this time, he is complaining of some abdominal pain, diarrhea and severe anxiety. While he was in the ER, he was noted to have hyperkalemia, with a potassium of 5.8. He rated his symptoms at 10/10, had associated depression, tried increasing his home meds and that did not work, describes it as agonizing. I discussed the case with the ER physician. We have admitted the patient. We are going to get him dialyzed and see if we can get his symptoms under control. PAST MEDICAL HISTORY: End-stage renal disease, on dialysis; CAD; bladder cancer; lung cancer; hypertension; pancreatitis; cholecystectomy; coronary artery bypass surgery; dialysis shunt in the left arm; cardiac stents; PowerPort in the left chest and lens implants. ALLERGIES: None. FAMILY HISTORY: Diabetes. SOCIAL HISTORY: He is . He does not drink, smoke or take drugs. He is retired. MEDICATIONS: Reviewed. Please refer to the MRAD. He is on 11, including Flomax, Plavix, atorvastatin, hydralazine, metoprolol, Cozaar, aspirin, paroxetine, calcium, omeprazole and folic acid. REVIEW OF SYSTEMS: GENERAL: No history of weight change, weakness or fevers. SKIN: No bruising, hair changes or rashes. EYES: No blurred, double or loss of vision. NOSE AND THROAT: No history of nosebleeds, hoarseness or sore throat. HEART: No history of palpitations, chest pain or shortness of breath on exertion. LUNGS: Denies cough, hemoptysis, wheezing or shortness of breath. GASTROINTESTINAL: Denies changes in appetite, nausea, vomiting or constipation. He complains of abdominal pain and diarrhea. GENITOURINARY: No history of frequency, urgency, hesitancy or nocturia. NEUROLOGIC: Denies history of numbness, tingling, tremor or weakness. PSYCHIATRIC: No history of panic or depression. He complains of severe anxiety. ENDOCRINE: No history of heat or cold intolerance, polyuria or polydipsia. EXTREMITIES: Denies muscle weakness, joint pain, pain on walking or stiffness. He complains of leg pain. PHYSICAL EXAMINATION: VITAL SIGNS: Temperature 98, pulse 84, respirations 18 and blood pressure 175/90. GENERAL: He is alert, crying, very anxious. HEART: Normal S1, S2. LUNGS: Clear with slight crackles in the lower chaudhary. ABDOMEN: Soft, a little distended. EXTREMITIES: Trace edema. SKIN: No rashes. ENDOCRINE: No thyromegaly. HEENT: His face is quite swollen, which is his baseline. LYMPHATICS: No cervical nodes. HEMATOPOIETIC: No bruising. PSYCHIATRIC: He is depressed and anxious. LABORATORY DATA: Troponin is 0.07. Potassium 5.7, anion gap is a little high at 16 and glucose 114. White count 8, hemoglobin 10 and platelets 196,000. Chest x-ray, likely pneumonia and/or bronchitis. Abdominal CT, no acute disease. Lower extremity ultrasound negative for DVT. ASSESSMENT AND PLAN: Abdominal pain, diarrhea, anxiety, leg cramps and hyperkalemia. The patient has been admitted. We are consulting Nephrology and GI. We also have an incidental finding of pneumonia. We will consult Pulmonary. Continue home meds. DVT prophylaxis. Full code. Frequent labs. Dialysis Saturday, Saturday and Saturday and p.r.n. Zofran. LONG-TERM PROGNOSIS: Guarded. YIN QUARLES DO DR: EVELIN/alyson JOB#: [id number] / [id number]
--- NOTE | 2019-02-17 12:32 | PDOC2 ---
GI CONSULT Reason For Consult: Abd pain HPI: HPI: 63 y/o male evaluated in the ER for a variety of complaints - PMH as below - he is hospitalized frequently and we have seen him many times. Had RLE surgery in 12/2018, then an issue w/ narcotics while in rehab, says was given 20 hydrocodone pills for home use but ran out and Tylenol was not helping his pain. Additionally, he had hand and shoulder cramping. Also had some vague "sharp" upper abdominal pain - says he has had this in the past and it has always been improved w/ alprazolam. Abd pain has resolved. He'd like to eat after dialysis and go home. Denies n/v, reflux/heartburn, dysphagia, diarrhea, constipation, hematochezia, and melena. Decreased appetite after surgery w/ weight loss - appetite better now. Does have h/o diarrhea improved in the past w/ OTC meds. H/o GERD previously on Tums. H/o bleeding DU s/p endotherapy. EGD 2015: mild gastritis and duodenitis. Colonoscopy 2016: internal hemorrhoids, random biopsies w/ microscopic/ lymphocytic colitis. Previously took sulfasalazine. S/p cholecystectomy. H/o pancreatitis - MRCP 2015: unremarkable. CA19-9 and IgG4 WNL in 2016. Lipase intermittently elevated. LFTs always normal. Denies NSAIDs. Is on Plavix and ASA. 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, cholecystectomy, AV fistula, ECCE, cystoscopy, right common femoral artery and profunda artery endarterectomy, thoracentesis FH: Family History: Cancer, CAD, CVA, DM Social History: Smoke: Quit ALCOHOL: none Drugs: None ROS: GEN: Denies fevers, chills, sweats HEENT: Denies blurred vision, sore throat CV: Denies chest pain RESP: Denies shortness of air, cough GI: Per HPI : Denies hematuria, dysuria ENDO: +weight loss NEURO: Denies confusion, dizziness MSK: RLE pain and numbness SKIN: Denies jaundice, pruritus Vitals: Vitals: Vital Signs Date Time Temp Pulse Resp B/P (MAP) Pulse Ox O2 Delivery O2 Flow Rate FiO2 02/17/19 08:00 Room Air 02/17/19 07:00 97.7 80 18 137/61 (86) 93 97.7 Labs: Labs: Laboratory Tests Test 02/16/19 21:55 02/17/19 02:01 02/17/19 02:21 02/17/19 05:00 White Blood Count 8.3 x10^3/uL (4.0-11.0) Red Blood Count 3.15 x10^6/uL (4.30-5.70) Hemoglobin 10.1 g/dL (13.0-17.5) Hematocrit 30.2 % (39.0-53.0) Mean Corpuscular Volume 96 fL (79-100) Mean Corpuscular Hemoglobin 32 pg (25-35) Mean Corpuscular Hemoglobin Concent 33 g/dL (31-37) Red Cell Distribution Width 16.7 % (11.5-14.5) Platelet Count 196 x10^3/uL (140-400) Neutrophils (%) (Auto) 76 % (31-73) Lymphocytes (%) (Auto) 8 % (24-48) Monocytes (%) (Auto) 9 % (0-9) Eosinophils (%) (Auto) 7 % (0-3) Basophils (%) (Auto) 1 % (0-3) Neutrophils # (Auto) 6.3 x10^3uL (1.8-7.7) Lymphocytes # (Auto) 0.7 x10^3/uL (1.0-4.8) Monocytes # (Auto) 0.7 x10^3/uL (0.0-1.1) Eosinophils # (Auto) 0.6 x10^3/uL (0.0-0.7) Basophils # (Auto) 0.1 x10^3/uL (0.0-0.2) Sodium Level 141 mmol/L (136-145) Potassium Level 5.8 mmol/L (3.5-5.1) Chloride Level 102 mmol/L (98-107) Carbon Dioxide Level 23 mmol/L (21-32) Anion Gap 16 (6-14) Blood Urea Nitrogen 75 mg/dL (8-26) Creatinine 9.2 mg/dL (0.7-1.3) Estimated GFR (Cockcroft-Gault) 5.8 BUN/Creatinine Ratio 8 (6-20) Glucose Level 86 mg/dL (70-99) Calcium Level 6.7 mg/dL (8.5-10.1) Magnesium Level 2.3 mg/dL (1.8-2.4) Total Bilirubin 0.4 mg/dL (0.2-1.0) Aspartate Amino Transf (AST/SGOT) 20 U/L (15-37) Alanine Aminotransferase (ALT/SGPT) 14 U/L (16-63) Alkaline Phosphatase 96 U/L (46-116) Creatine Kinase 245 U/L (39-308) Creatine Kinase MB (Mass) 1.8 ng/mL (0.0-3.6) Creatine Kinase MB Relative Index 0.7 % (0-4) Troponin I Quantitative 0.059 ng/mL (0.000-0.055) 0.070 ng/mL (0.000-0.055) Total Protein 7.0 g/dL (6.4-8.2) Albumin 3.3 g/dL (3.4-5.0) Albumin/Globulin Ratio 0.9 (1.0-1.7) Lipase 610 U/L (73-393) Glucose (Fingerstick) 35 mg/dL (70-99) 134 mg/dL (70-99) Test 02/17/19 05:59 02/17/19 06:57 02/17/19 07:34 Glucose (Fingerstick) 67 mg/dL (70-99) 79 mg/dL (70-99) Troponin I Quantitative 0.068 ng/mL (0.000-0.055) Allergies: Coded Allergies: No Known Drug Allergies (Unverified , 02/17/19) Medications: Current Medications Medications (Trade) Dose Ordered Sig/Cirilo Route PRN Reason Start Time Stop Time Status Last Admin Dose Admin Lorazepam (Ativan) 0.5 mg 1X ONCE IV 02/16/19 23:45 02/16/19 23:46 DC 02/17/19 00:00 Famotidine (Pepcid Vial) 20 mg 1X ONCE IVP 02/16/19 23:45 02/16/19 23:46 DC 02/17/19 00:01 Ondansetron HCl (Zofran) 4 mg 1X ONCE IV 02/16/19 23:45 02/16/19 23:46 DC 02/17/19 00:00 Insulin Human Regular (HumuLIN R VIAL) 10 unit 1X ONCE IV 02/17/19 01:00 02/17/19 01:01 DC 02/17/19 00:43 Dextrose (Dextrose 50%-Water Syringe) 25 gm 1X ONCE IV 02/17/19 01:00 02/17/19 01:01 DC 02/17/19 00:42 Fentanyl Citrate (Fentanyl 2ml Vial) 50 mcg 1X ONCE IV 02/17/19 01:00 02/17/19 01:01 DC 02/17/19 00:50 Aspirin (Lillian Aspirin) 325 mg 1X ONCE PO 02/17/19 01:00 02/17/19 01:01 DC 02/17/19 01:30 Sodium Chloride 1,000 ml @ 20 mls/hr 1X ONCE IV 02/17/19 02:00 02/19/19 03:59 02/17/19 01:32 Dextrose (Dextrose 50%-Water Syringe) 25 gm PRN Q15MIN PRN IV hypoglycemia 02/17/19 02:30 02/17/19 02:15 Imaging: Imaging: CXR IMPRESSION: 1. Patchy opacities in the right lower lobe and lingula likely pneumonia. 2. Prominent bilateral bronchovascular markings may be secondary to atypical/ viral infection/bronchitis. CT A/P Impression: Adult polycystic renal disease. No acute findings. LEUS Impression: No evidence of DVT. PE: GEN: dialyzing HEENT: Atraumatic, PERRL LUNGS: CTAB HEART: RRR ABD: NABS, S/ND/NT EXTREMITY: No edema SKIN: No rashes, no jaundice NEURO/PSYCH: A & O 3 A/P: A/P: RLE pain - h/o PAD s/p right common femoral artery and profunda artery endarterectomy 12/2018 - has follow-up w/ Dr. Arreola on 02/19/19 Hand and shoulder cramping - resolved Upper abd pain - attributes to anxiety - has resolved Mildly elevated lipase - unclear significance, does have h/o pancreatitis w/ workup as above CAD, mildly elevated troponin, ESRD on HD, hyperkalemia, chronic anemia - Hgb slightly below baseline -- Okay for PO per GI. Will restart PPI as always. DC per primary, follow-up w/ Dr. Arreola as planned. TOMMY SALVADOR Feb 17, 2019 12:32
--- NOTE | 2019-02-17 13:50 | PDOC2 ---
CONSULT Date of Consult Date of Consult DATE: 02/17/19 TIME: 13:45 Reason for Consult Reason for Consult: HIGH K AND ESRD Referring Physician Referring Physician: AVERY Identification/Chief Complaint Chief Complaint ABD PAIN Source Source: Chart review, Patient History of Present Illness Reason for Visit: THIS IS A 63 YR OLD ESRD PT WITH OP HD ON OP HD ON TTS. CAME IN WITH ANXIETY, ABD PAIN, OCC RLE PAIN FOR WHICH HE HAS UNDERGONE RLE BYPASS SURGERY. NOTED TO HAVE HYPERKALEMIA. LABS OTHERWISE C/W ESRD. GI EVAL ONGOING AT THIS TIME Past Medical History Cardiovascular: CAD, CHF, HTN, CA Pulmonary: No pertinent hx, Bronchitis, Other GI: Constipation, GERD, Other Heme/Onc: Anemia NOS, Cancer Psych: Anxiety, Depression Renal/: Chronic renal failure, Bladder Ca., Other Endocrine: Diabetes, Hyperparathyroidism Past Surgical History Past Surgical History: Appendectomy, Cholecystectomy, CABG, Other Family History Family History: Diabetes, Stroke Social History Quit ALCOHOL: none Drugs: None Lives: with Family Domestic Violence: Neg Current Problem List Problem List Problems Medical Problems: (1) Elevated lipase Status: Acute (2) Elevated troponin Status: Acute Current Medications Current Medications Current Medications Lorazepam (Ativan) 0.5 mg 1X ONCE IV Last administered on 02/17/19at 00:00; Start 02/16/19 at 23:45; Stop 02/16/19 at 23:46; Status DC Famotidine (Pepcid Vial) 20 mg 1X ONCE IVP Last administered on 02/17/19at 00:01 ; Start 02/16/19 at 23:45; Stop 02/16/19 at 23:46; Status DC Ondansetron HCl (Zofran) 4 mg 1X ONCE IV Last administered on 02/17/19at 00:00; Start 02/16/19 at 23:45; Stop 02/16/19 at 23:46; Status DC Insulin Human Regular (HumuLIN R VIAL) 10 unit 1X ONCE IV Last administered on 02/17/19at 00:43; Start 02/17/19 at 01:00; Stop 02/17/19 at 01:01; Status DC Dextrose (Dextrose 50%-Water Syringe) 25 gm 1X ONCE IV Last administered on 02/17/19at 00:42; Start 02/17/19 at 01:00; Stop 02/17/19 at 01:01; Status DC Fentanyl Citrate (Fentanyl 2ml Vial) 50 mcg 1X ONCE IV Last administered on 02/17/19at 00:50; Start 02/17/19 at 01:00; Stop 02/17/19 at 01:01; Status DC Aspirin (Lillian Aspirin) 325 mg 1X ONCE PO Last administered on 02/17/19at 01:30 ; Start 02/17/19 at 01:00; Stop 02/17/19 at 01:01; Status DC Ondansetron HCl (Zofran) 4 mg PRN Q8HRS PRN IV NAUSEA/VOMITING 1ST CHOICE; Start 02/17/19 at 01:15; Stop 02/18/19 at 01:14 Fentanyl Citrate (Fentanyl 2ml Vial) 50 mcg PRN Q2HRS PRN IV SEVERE PAIN; Start 02/17/19 at 01:15 Sodium Chloride 1,000 ml @ 20 mls/hr 1X ONCE IV Last administered on at 01:32; Start 02/17/19 at 02:00; Stop 02/19/19 at 03:59 Dextrose (Dextrose 50%-Water Syringe) 25 gm PRN Q15MIN PRN IV hypoglycemia Last administered on 02/17/19at 02:15; Start 02/17/19 at 02:30 Sodium Chloride 1,000 ml @ 1,000 mls/hr Q1H PRN IV hypotension; Start 02/17/19 at 08:58; Stop 02/17/19 at 14:57 Info (PHARMACY MONITORING -- do not chart) 1 each PRN DAILY PRN MC SEE COMMENTS ; Start 02/17/19 at 09:00; Status UNV Info (PHARMACY MONITORING -- do not chart) 1 each PRN DAILY PRN MC SEE COMMENTS ; Start 02/17/19 at 09:00 Diphenhydramine HCl (Benadryl) 50 mg 1X ONCE IVP ; Start 02/17/19 at 10:15; Stop 02/17/19 at 10:16; Status DC Aripiprazole (Abilify) 2 mg DAILY PO ; Start 02/17/19 at 11:00 Pantoprazole Sodium (Protonix) 40 mg DAILYAC PO ; Start 02/17/19 at 16:30 Active Scripts Active Atorvastatin Calcium 40 Mg Tablet 40 Mg PO QHS Cozaar (Losartan Potassium) 50 Mg Tablet 50 Mg PO DAILY Flomax (Tamsulosin Hcl) 0.4 Mg Cap.er.24h 0.4 Mg PO QHS Reported Aspirin 81 Mg Tab.chew 320 Mg PO DAILY Metoprolol Tartrate 100 Mg Tablet 1 Tab PO BID Plavix (Clopidogrel Bisulfate) 75 Mg Tablet 75 PO DAILY Hydralazine Hcl 50 Mg Tablet 50 TID Nephro-Chilo Tablet (Folic Acid/Vitamin B Comp W-C) 0.8 Mg Tablet 1 Tab PO DAILY Paroxetine Hcl 20 Mg Tablet 40 Mg PO DAILY Tums (Calcium Carbonate) 200 Mg Tab.chew 800 Mg PO TIDAC Omeprazole Magnesium 20 Mg Capsule.dr 20 Mg PO DAILY Allergies Allergies: Coded Allergies: No Known Drug Allergies (Unverified , 02/17/19) ROS General: YES: Fatigue, Appetite PSYCHOLOGICAL ROS: YES: Anxiety, Depression Eyes: Yes Decreased vision HEENT: YES: Heacaches ALLERGY AND IMMUNOLOGY: YES: Seasonal Allergies Respiratory: YES: Cough, Shortness of breath Cardiovascular: yes Palpitations Gastrointestinal: Yes Abdominal Pain Genitourinary: YES Other (ANURIA) Musculoskeletal: Yes Muscular Weakness, Yes Other (RLE PAIN) Neurological: Yes Weakness Skin: Yes Dry Skin Physical Exam General: Alert, Oriented X3, Cooperative, No acute distress HEENT: Atraumatic, PERRLA, EOMI, Mucous membr. moist/pink Lungs: Clear to auscultation, Normal air movement Heart: Regular rate, Normal S2 Abdomen: Normal bowel sounds, Soft Extremities: No clubbing, No cyanosis Skin: No breakdown Neuro: Normal speech, Sensation intact Psych/Mental Status: Mental status NL, Mood NL MUSCULOSKELETAL: No joint tenderness, No deformity, No swelling Vitals VITALS Vital Signs Date Time Temp Pulse Resp B/P (MAP) Pulse Ox O2 Delivery O2 Flow Rate FiO2 02/17/19 08:00 Room Air 02/17/19 07:00 97.7 80 18 137/61 (86) 93 97.7 Labs Labs Laboratory Tests Test 02/16/19 21:55 02/17/19 02:01 02/17/19 02:21 02/17/19 05:00 White Blood Count 8.3 x10^3/uL (4.0-11.0) Red Blood Count 3.15 x10^6/uL (4.30-5.70) Hemoglobin 10.1 g/dL (13.0-17.5) Hematocrit 30.2 % (39.0-53.0) Mean Corpuscular Volume 96 fL (79-100) Mean Corpuscular Hemoglobin 32 pg (25-35) Mean Corpuscular Hemoglobin Concent 33 g/dL (31-37) Red Cell Distribution Width 16.7 % (11.5-14.5) Platelet Count 196 x10^3/uL (140-400) Neutrophils (%) (Auto) 76 % (31-73) Lymphocytes (%) (Auto) 8 % (24-48) Monocytes (%) (Auto) 9 % (0-9) Eosinophils (%) (Auto) 7 % (0-3) Basophils (%) (Auto) 1 % (0-3) Neutrophils # (Auto) 6.3 x10^3uL (1.8-7.7) Lymphocytes # (Auto) 0.7 x10^3/uL (1.0-4.8) Monocytes # (Auto) 0.7 x10^3/uL (0.0-1.1) Eosinophils # (Auto) 0.6 x10^3/uL (0.0-0.7) Basophils # (Auto) 0.1 x10^3/uL (0.0-0.2) Sodium Level 141 mmol/L (136-145) Potassium Level 5.8 mmol/L (3.5-5.1) Chloride Level 102 mmol/L (98-107) Carbon Dioxide Level 23 mmol/L (21-32) Anion Gap 16 (6-14) Blood Urea Nitrogen 75 mg/dL (8-26) Creatinine 9.2 mg/dL (0.7-1.3) Estimated GFR (Cockcroft-Gault) 5.8 BUN/Creatinine Ratio 8 (6-20) Glucose Level 86 mg/dL (70-99) Calcium Level 6.7 mg/dL (8.5-10.1) Magnesium Level 2.3 mg/dL (1.8-2.4) Total Bilirubin 0.4 mg/dL (0.2-1.0) Aspartate Amino Transf (AST/SGOT) 20 U/L (15-37) Alanine Aminotransferase (ALT/SGPT) 14 U/L (16-63) Alkaline Phosphatase 96 U/L (46-116) Creatine Kinase 245 U/L (39-308) Creatine Kinase MB (Mass) 1.8 ng/mL (0.0-3.6) Creatine Kinase MB Relative Index 0.7 % (0-4) Troponin I Quantitative 0.059 ng/mL (0.000-0.055) 0.070 ng/mL (0.000-0.055) Total Protein 7.0 g/dL (6.4-8.2) Albumin 3.3 g/dL (3.4-5.0) Albumin/Globulin Ratio 0.9 (1.0-1.7) Lipase 610 U/L (73-393) Glucose (Fingerstick) 35 mg/dL (70-99) 134 mg/dL (70-99) Reticulocyte Count (auto) 1.7 % (0.5-2.5) Test 02/17/19 05:59 02/17/19 06:57 02/17/19 07:34 Glucose (Fingerstick) 67 mg/dL (70-99) 79 mg/dL (70-99) Troponin I Quantitative 0.068 ng/mL (0.000-0.055) Laboratory Tests Test 02/16/19 21:55 02/17/19 02:01 02/17/19 02:21 02/17/19 05:00 White Blood Count 8.3 x10^3/uL (4.0-11.0) Red Blood Count 3.15 x10^6/uL (4.30-5.70) Hemoglobin 10.1 g/dL (13.0-17.5) Hematocrit 30.2 % (39.0-53.0) Mean Corpuscular Volume 96 fL (79-100) Mean Corpuscular Hemoglobin 32 pg (25-35) Mean Corpuscular Hemoglobin Concent 33 g/dL (31-37) Red Cell Distribution Width 16.7 % (11.5-14.5) Platelet Count 196 x10^3/uL (140-400) Neutrophils (%) (Auto) 76 % (31-73) Lymphocytes (%) (Auto) 8 % (24-48) Monocytes (%) (Auto) 9 % (0-9) Eosinophils (%) (Auto) 7 % (0-3) Basophils (%) (Auto) 1 % (0-3) Neutrophils # (Auto) 6.3 x10^3uL (1.8-7.7) Lymphocytes # (Auto) 0.7 x10^3/uL (1.0-4.8) Monocytes # (Auto) 0.7 x10^3/uL (0.0-1.1) Eosinophils # (Auto) 0.6 x10^3/uL (0.0-0.7) Basophils # (Auto) 0.1 x10^3/uL (0.0-0.2) Sodium Level 141 mmol/L (136-145) Potassium Level 5.8 mmol/L (3.5-5.1) Chloride Level 102 mmol/L (98-107) Carbon Dioxide Level 23 mmol/L (21-32) Anion Gap 16 (6-14) Blood Urea Nitrogen 75 mg/dL (8-26) Creatinine 9.2 mg/dL (0.7-1.3) Estimated GFR (Cockcroft-Gault) 5.8 BUN/Creatinine Ratio 8 (6-20) Glucose Level 86 mg/dL (70-99) Calcium Level 6.7 mg/dL (8.5-10.1) Magnesium Level 2.3 mg/dL (1.8-2.4) Total Bilirubin 0.4 mg/dL (0.2-1.0) Aspartate Amino Transf (AST/SGOT) 20 U/L (15-37) Alanine Aminotransferase (ALT/SGPT) 14 U/L (16-63) Alkaline Phosphatase 96 U/L (46-116) Creatine Kinase 245 U/L (39-308) Creatine Kinase MB (Mass) 1.8 ng/mL (0.0-3.6) Creatine Kinase MB Relative Index 0.7 % (0-4) Troponin I Quantitative 0.059 ng/mL (0.000-0.055) 0.070 ng/mL (0.000-0.055) Total Protein 7.0 g/dL (6.4-8.2) Albumin 3.3 g/dL (3.4-5.0) Albumin/Globulin Ratio 0.9 (1.0-1.7) Lipase 610 U/L (73-393) Glucose (Fingerstick) 35 mg/dL (70-99) 134 mg/dL (70-99) Reticulocyte Count (auto) 1.7 % (0.5-2.5) Test 02/17/19 05:59 02/17/19 06:57 02/17/19 07:34 Glucose (Fingerstick) 67 mg/dL (70-99) 79 mg/dL (70-99) Troponin I Quantitative 0.068 ng/mL (0.000-0.055) Assessment/Plan Assessment/Plan IMP HYPERKALEMIA DM II HTN ANEMIA ESRD ABDOMINAL PAIN PAD ANXIETY PLAN HD TODAY UF TO [facility] GI EVALUATION WILL FOLLOW JAYDE NGUYEN MD Feb 17, 2019 13:50
--- NOTE | 2019-02-17 14:31 | NUR ---
Patient arrived back to [facility] at 1430. While down in dialysis, patient was noted to be tachy. community service officer coordinator notified Dr. Escobar, who requested we consult cardiology. Patient jumping to 170's, and maintaining around 120's.
[2019-02-17] MEDS: fentaNYL PF VIAL 100 MCG/2 ML VIAL IV PRN ×2 (14:49→21:37)
[2019-02-17] MEDS: METOPROLOL TART IMMED RELEASE 50 MG TABLET. PO SCH ×2 (14:50→21:43)
[2019-02-17] MEDS: ARIPiprazole 2 MG TABLET PO SCH (14:50)
[2019-02-17] MEDS: ASPIRIN CHEWABLE 81 MG TABLET. PO SCH (14:51)
[2019-02-17] MEDS: LOSARTAN POTASSIUM 50 MG TABLET. PO SCH (14:52)
[2019-02-17] MEDS: FOLIC/VIT B COMP W-C (RENAL) TABLET. PO SCH (14:52)
[2019-02-17] MEDS: CLOPIDOGREL BISULFATE 75 MG TABLET PO SCH (14:52)
[2019-02-17] MEDS: PARoxetine 20 MG TABLET PO SCH (14:52)
--- NOTE | 2019-02-17 14:56 | PDOC2 ---
CARDIAC CONSULT DATE OF CONSULT Date of Consult DATE: 02/17/19 TIME: 14:46 REASON FOR CONSULT Reason for Consult: Tachycardia REFERRING PHYSICIAN Referring Physician: Luz SOURCE Source: Chart review, Patient HISTORY OF PRESENT ILLNESS HISTORY OF PRESENT ILLNESS This is a pleasant 63 yo male admitted for complains of abdominal pain. Also reports of right leg swelling but his abd has been bothering him more. GI is following this and so far no DVT per sono on his right leg. Denies any chest pain, palpitations, SOA. He was noted with tachycardia per staff especially during dialysis. He has not taken his BB this morning. The consult is for his tachycardia. No CP no dizziness. No prior nausea vomiting diarrhea and no recent fever or chills. PAST MEDICAL HISTORY Past Medical History Cardiovascular: CAD, CHF, HTN, [place], PAD Pulmonary: No pertinent hx, Bronchitis, Other GI: Constipation, GERD, Other Heme/Onc: Anemia NOS, Cancer Psych: Anxiety, Depression Renal/: Chronic renal failure, Bladder Ca., Other Endocrine: Diabetes, Hyperparathyroidism PAST SURGICAL HISTORY Past Surgical History Appendectomy, Cholecystectomy, CABG x5 01/2017, PCI/stents, left chest portacath FAMILY HISTORY Family History: Diabetes, Stroke SOCIAL HISTORY Smoke: No ALCOHOL: none Drugs: None Lives: Alone CURRENT MEDICATIONS CURRENT MEDICATIONS Current Medications Medications (Trade) Dose Ordered Sig/Cirilo Route PRN Reason Start Time Stop Time Status Last Admin Dose Admin Lorazepam (Ativan) 0.5 mg 1X ONCE IV 02/16/19 23:45 02/16/19 23:46 DC 02/17/19 00:00 Famotidine (Pepcid Vial) 20 mg 1X ONCE IVP 02/16/19 23:45 02/16/19 23:46 DC 02/17/19 00:01 Ondansetron HCl (Zofran) 4 mg 1X ONCE IV 02/16/19 23:45 02/16/19 23:46 DC 02/17/19 00:00 Insulin Human Regular (HumuLIN R VIAL) 10 unit 1X ONCE IV 02/17/19 01:00 02/17/19 01:01 DC 02/17/19 00:43 Dextrose (Dextrose 50%-Water Syringe) 25 gm 1X ONCE IV 02/17/19 01:00 02/17/19 01:01 DC 02/17/19 00:42 Fentanyl Citrate (Fentanyl 2ml Vial) 50 mcg 1X ONCE IV 02/17/19 01:00 02/17/19 01:01 DC 02/17/19 00:50 Aspirin (Lillian Aspirin) 325 mg 1X ONCE PO 02/17/19 01:00 02/17/19 01:01 DC 02/17/19 01:30 Sodium Chloride 1,000 ml @ 20 mls/hr 1X ONCE IV 02/17/19 02:00 02/19/19 03:59 02/17/19 01:32 Dextrose (Dextrose 50%-Water Syringe) 25 gm PRN Q15MIN PRN IV hypoglycemia 02/17/19 02:30 02/17/19 02:15 Diphenhydramine HCl (Benadryl) 50 mg 1X ONCE IVP 02/17/19 10:15 02/17/19 10:16 DC 02/17/19 12:40 ALLERGIES ALLERGIES: Coded Allergies: No Known Drug Allergies (Unverified , 02/17/19) ROS Review of System 14 point ROS evaluated with pertinent positives noted per HPI PHYSICAL EXAM General: Alert, Oriented X3, Cooperative, No acute distress HEENT: Atraumatic, Mucous membr. moist/pink Lungs: Clear to auscultation, Normal air movement Heart: Regular rate (SR with intermittent PACs and burst of possible PAFIB vs MAT) Abdomen: Soft, Other (diffuse tenderness particualrly to epigastric region) Extremities: Other (2+ RLE pitting edema) Skin: No breakdown, No significant lesion Neuro: Normal speech, Sensation intact Psych/Mental Status: Mental status NL, Mood NL MUSCULOSKELETAL: Osteoarthritic changes both hands VITALS VITALS Vital Signs Date Time Temp Pulse Resp B/P (MAP) Pulse Ox O2 Delivery O2 Flow Rate FiO2 02/17/19 08:00 Room Air 02/17/19 07:00 97.7 80 18 137/61 (86) 93 97.7 LABS Lab: Laboratory Tests Test 02/16/19 21:55 02/17/19 02:01 02/17/19 02:21 02/17/19 05:00 White Blood Count 8.3 x10^3/uL (4.0-11.0) Red Blood Count 3.15 x10^6/uL (4.30-5.70) Hemoglobin 10.1 g/dL (13.0-17.5) Hematocrit 30.2 % (39.0-53.0) Mean Corpuscular Volume 96 fL (79-100) Mean Corpuscular Hemoglobin 32 pg (25-35) Mean Corpuscular Hemoglobin Concent 33 g/dL (31-37) Red Cell Distribution Width 16.7 % (11.5-14.5) Platelet Count 196 x10^3/uL (140-400) Neutrophils (%) (Auto) 76 % (31-73) Lymphocytes (%) (Auto) 8 % (24-48) Monocytes (%) (Auto) 9 % (0-9) Eosinophils (%) (Auto) 7 % (0-3) Basophils (%) (Auto) 1 % (0-3) Neutrophils # (Auto) 6.3 x10^3uL (1.8-7.7) Lymphocytes # (Auto) 0.7 x10^3/uL (1.0-4.8) Monocytes # (Auto) 0.7 x10^3/uL (0.0-1.1) Eosinophils # (Auto) 0.6 x10^3/uL (0.0-0.7) Basophils # (Auto) 0.1 x10^3/uL (0.0-0.2) Sodium Level 141 mmol/L (136-145) Potassium Level 5.8 mmol/L (3.5-5.1) Chloride Level 102 mmol/L (98-107) Carbon Dioxide Level 23 mmol/L (21-32) Anion Gap 16 (6-14) Blood Urea Nitrogen 75 mg/dL (8-26) Creatinine 9.2 mg/dL (0.7-1.3) Estimated GFR (Cockcroft-Gault) 5.8 BUN/Creatinine Ratio 8 (6-20) Glucose Level 86 mg/dL (70-99) Calcium Level 6.7 mg/dL (8.5-10.1) Magnesium Level 2.3 mg/dL (1.8-2.4) Total Bilirubin 0.4 mg/dL (0.2-1.0) Aspartate Amino Transf (AST/SGOT) 20 U/L (15-37) Alanine Aminotransferase (ALT/SGPT) 14 U/L (16-63) Alkaline Phosphatase 96 U/L (46-116) Creatine Kinase 245 U/L (39-308) Creatine Kinase MB (Mass) 1.8 ng/mL (0.0-3.6) Creatine Kinase MB Relative Index 0.7 % (0-4) Troponin I Quantitative 0.059 ng/mL (0.000-0.055) 0.070 ng/mL (0.000-0.055) Total Protein 7.0 g/dL (6.4-8.2) Albumin 3.3 g/dL (3.4-5.0) Albumin/Globulin Ratio 0.9 (1.0-1.7) Lipase 610 U/L (73-393) Glucose (Fingerstick) 35 mg/dL (70-99) 134 mg/dL (70-99) Reticulocyte Count (auto) 1.7 % (0.5-2.5) Test 02/17/19 05:59 02/17/19 06:57 02/17/19 07:34 Glucose (Fingerstick) 67 mg/dL (70-99) 79 mg/dL (70-99) Troponin I Quantitative 0.068 ng/mL (0.000-0.055) ECHOCARDIOGRAM ECHOCARDIOGRAM <Conclusion> The left ventricle is normal size. Left ventricle systolic function is mildly impaired. The Ejection Fraction is estimated at 40%. There is mild global hypokinesis of the left ventricle. There is mild concentric left ventricular hypertrophy. There is no significant aortic valvular stenosis. Doppler and Color Flow revealed no significant aortic regurgitation. Doppler and Color-flow revealed trace mitral regurgitation. Doppler and Color Flow revealed trace tricuspid regurgitation. DATE: 12/14/18 174 HEART CATH HEART CATH Conclusion 1. Severe [place] vessel coronary artery disease s/p coronary artery bypass surgery with 90% anastomotic lesion involving WHITEHEAD to LAD, occluded sequential SVG to diagonal/obtuse marginal branch with patent segment between the diagonal and obtuse marginal branch, patent sequential saphenous vein graft to posterior descending/posterolateral branches of right coronary artery. The [place] left anterior descending artery and the left circumflex artery showed significant lesions as described above. 2. Successful complex PCI/MARILIA to LMCA/LCx/LAD (culotte technique) DATE: 12/16/18 1717 ASSESSMENT/PLAN ASSESSMENT/PLAN 1. Tachyarrhythmia: asymptomatic. MAT vs PAFIB. Intermittent episodes otherwise SR. 2. Elevated top: minimal at at 0.07, demand mediated, type 2 3. Chronic systolic CHF: multifactorial, currently compensated 4. ICM; LVEF 40% 5. Accelerated HTN: improved 6. ESRD 7. 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 8. Anemia of chronic disease: Hgb 10.1 within his baseline 9. DM2 with hypoglycemic episode. 10. CAD s/p previous CABG x5 01/2017--- 12/16/2018 S/P complex PCI/MARILIA to LMCA/LCx /LAD. Clinically stable. 11. Abdominal pain: GI following Recommendations 1. Continue secondary prevention. Continue with DAPT. 2. Fluid off loading per HD. 3. Discussed with staff. Provide metoprolol. Check EKG. BMP and Mg. 4. Supportive care. MAGNUS CONWAY ROUNDING MACHINE OPERATOR Feb 17, 2019 14:56
--- NOTE | 2019-02-17 14:58 | NUR ---
SW following pt for anticipated dc needs. Chart reviewed and discussed with RN. [facility] Sat, and Sat first shift. Pt also has been to SNF last month. No SW needs noted at this time. Will continue to assess needs.
[2019-02-17 15:00] VITALS: BP 117/76
--- NOTE | 2019-02-17 15:01 | CONS ---
DATE OF CONSULTATION: PULMONARY CONSULTATION REASON FOR CONSULTATION: Pneumonia, abnormal chest x-ray. ATTENDING PHYSICIAN: Dr. Giles. HISTORY OF PRESENT ILLNESS: The patient is a 63-year-old obese male who has no significant history of tobacco use. He has history of end-stage renal disease. He was hospitalized with complaint of abdominal pain, diarrhea, some nausea as well and cramping. He denies any cough, fever or chills. Denies any chest pains. He is not on home oxygen. The patient underwent imaging study and lower extremity Dopplers did not reveal any evidence of DVT. His chest x-ray was reviewed by me and it shows opacity in the right middle lobe and atelectasis versus pneumonia. There were some mildly prominent interstitial markings. CT abdomen and pelvis was also performed. The lower lung sections did not reveal any definite consolidation. He had adult polycystic renal disease. He is currently undergoing dialysis and I have been asked to see him for further evaluation. I noticed that he was in atrial fibrillation as well. PAST MEDICAL HISTORY: History of end-stage renal disease, on dialysis; history of CAD, history of bladder cancer, history of lung cancer, history of hypertension and pancreatitis, cholecystectomy, coronary artery bypass grafting, dialysis shunt in the left arm, cardiac stents and lens implants. SURGERIES: As above. ALLERGIES: None. FAMILY HISTORY: Diabetes. SOCIAL HISTORY: Nonsmoker. MEDICATIONS: Reviewed as listed in the MRAD. REVIEW OF SYSTEMS: Twelve-point systems obtained. Pertinent positives discussed in my history of present illness, otherwise noncontributory. PHYSICAL EXAMINATION: VITAL SIGNS: Reviewed. Blood pressure on the high side. Pulse ox 93% on room air, afebrile. HEENT: Sclerae nonicteric. NECK: Supple. LUNGS: With diminished breath sounds. No crackles, no wheezes. CARDIOVASCULAR: Regular. ABDOMEN: Soft, obese. EXTREMITIES: With trace pitting edema. LABORATORY DATA: Reviewed. White cell count 8.3, hemoglobin 10.1, platelets are 196. IMPRESSION: 1. Abnormal chest x-ray with right middle lobe opacity. Clinically, he denies any symptoms of pneumonia. Could be rounded atelectasis. We will obtain noncontrast CT chest for further evaluation. 2. Abdominal pain with diarrhea and nausea. Follow GI and PCP recommendation. 3. End-stage renal disease, on hemodialysis. RECOMMENDATIONS: 1. We will do a noncontrast CT chest for further evaluation of abnormal chest x-ray. 2. At this point, okay to hold antibiotics. 3. Hemodialysis. 4. Follow Cardiology recommendations regarding atrial fibrillation, which could be new. 5. Discussed with RN. We will follow along with you. BRAYDEN HALE MD DR: KATE/alyson JOB#: [id number] / [id number]
[2019-02-17 16:03] LABS: CALCIUM 7.6 mg/dL (8.5-10.1); CREATININE 5.8 mg/dL (0.7-1.3); MAGNESIUM 1.9 mg/dL (1.8-2.4); POTASSIUM 4.2 mmol/L (3.5-5.1)
--- NOTE | 2019-02-17 16:36 | EKG ---
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
--- NOTE | 2019-02-17 16:41 | RAD ---
CT CHEST WO CONTRAST Indication: Pneumonia versus atelectasis, weakness Technique: Noncontrast CT imaging was performed of the chest, multiplanar reconstruction images submitted. One or more of the following individualized dose reduction techniques were utilized for this examination: 1. Automated exposure control 2. Adjustment of the mA and/or kV according to patient size 3. Use of iterative reconstruction technique. Comparison: November 14, 2018 Findings: There are again small right greater than left dependent pleural effusions, somewhat decreased on the right in interval. There again has been a median sternotomy. There is coronary calcification. There is no pneumothorax. There is persistent focus of abnormal parenchymal density of the right lower lobe. This measures about 6 cm transverse by 3 cm AP by about 2.1 cm CC. This is somewhat smaller in CC dimension. Previously there was other infiltrate of the right upper lobe which has resolved. There is persistent focus of more linear-appearing density of the left upper lobe likely fibrotic change and/or atelectasis. Small focus of density along the left major fissure about 0.84 cm is stable to somewhat smaller. There is again coronary calcification. Subcarinal node is smaller about 0.9 cm short axis dimension versus previously about 1.3 cm. Right precarinal node about 1.3 cm short axis dimension axial image previously about 1.9 cm. Largest AP window node measures about 0.8 cm, previously about 1.1 cm short axis dimensions. There is left port catheter present. There is again evidence of polycystic kidney disease. 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 IMPRESSION: 1. There is a persistent focus of abnormal right lower lobe parenchymal density slightly decrease. However given persistence, mass is not excluded. PET CT could be beneficial. Lymphadenopathy has decreased. 2. There is again evidence of polycystic kidney disease. 3. There are again small right greater than left pleural effusions, somewhat decreased on the right. 4. There has been be sternotomy. There is coronary calcification. Electronically signed by: Aj Montalvo MD (02/17/2019 4:38 PM) [id number]
[2019-02-17] MEDS: CALCIUM CARBONATE 500 MG TAB.CHEW PO SCH (16:54)
[2019-02-17] MEDS: PANTOPRAZOLE 40 MG TABLET.DR. PO SCH (16:54)
[2019-02-17 19:38] VITALS: BP 149/45
[2019-02-17] MEDS ORDERED: DARBEPOETIN ALFA 60 MCG/0.3 ML DISP.SYRIN. SQ SCH (21:00)
[2019-02-17] MEDS ORDERED: ATORVASTATIN CALCIUM 40 MG TABLET. PO SCH (21:00)
[2019-02-17] MEDS ORDERED: TAMSULOSIN 0.4 MG CAP.ER.24H. PO SCH (21:00)
[2019-02-17] MEDS: ALPRAZolam 0.5 MG TABLET PO PRN (21:37)
[2019-02-17 23:23] VITALS: BP 139/69
[2019-02-18 03:30] VITALS: BP 157/65
[2019-02-18 05:26] LABS: BASO % 1 % (0-3); EOS # 0.3 x10^3/uL (0.0-0.7); EOS % 4 % (0-3); HEMATOCRIT 27.5 % (39.0-53.0); HEMOGLOBIN 9.4 g/dL (13.0-17.5); LYMPH # 0.4 x10^3/uL (1.0-4.8); LYMPH % 4 % (24-48); MEAN CORPUSCULAR HEMOGLOBIN 33 pg (25-35); MEAN CORPUSCULAR HGB CONC 34 g/dL (31-37); MEAN CORPUSCULAR VOLUME 95 fL (79-100); MONO # 0.8 x10^3/uL (0.0-1.1); MONO % 10 % (0-9); NEUT # 6.6 x10^3uL (1.8-7.7); NEUT % 81 % (31-73); PLATELET COUNT 162 x10^3/uL (140-400); RED BLOOD COUNT 2.89 x10^6/uL (4.30-5.70); RED CELL DISTRIBUTION WIDTH 16.5 % (11.5-14.5); WHITE BLOOD COUNT 8.2 x10^3/uL (4.0-11.0)
[2019-02-18 05:56] LABS: CALCIUM 7.6 mg/dL (8.5-10.1); CREATININE 7.1 mg/dL (0.7-1.3); GFR 7.9; POTASSIUM 5.1 mmol/L (3.5-5.1)
[2019-02-18 07:00] VITALS: BP 156/64
[2019-02-18] MEDS: ALPRAZolam 0.5 MG TABLET PO PRN (07:05)
[2019-02-18 08:37] LABS: % BANDS 1 % (0-9); % EOS 4 % (0-5); % LYMPHS 3 % (24-48); % MONOS 7 % (0-10); % SEGS 85 % (35-66); PLT ESTIMATE ADEQUATE (ADEQUATE)
[2019-02-18 08:38] LABS: ANISOCYTOSIS SLIGHT
[2019-02-18] MEDS: METOPROLOL TART IMMED RELEASE 50 MG TABLET. PO SCH (08:59)
[2019-02-18] MEDS: CLOPIDOGREL BISULFATE 75 MG TABLET PO SCH (08:59)
[2019-02-18] MEDS: CALCIUM CARBONATE 500 MG TAB.CHEW PO SCH ×2 (09:00→11:30)
[2019-02-18] MEDS ORDERED: OMEPRAZOLE MAGNESIUM 20 MG PO SCH (09:00)
[2019-02-18] MEDS: PANTOPRAZOLE 40 MG TABLET.DR. PO SCH (09:00)
[2019-02-18] MEDS: ARIPiprazole 2 MG TABLET PO SCH (09:01)
[2019-02-18] MEDS: FOLIC/VIT B COMP W-C (RENAL) TABLET. PO SCH (09:01)
[2019-02-18] MEDS: LOSARTAN POTASSIUM 50 MG TABLET. PO SCH (09:01)
[2019-02-18] MEDS: PARoxetine 20 MG TABLET PO SCH (09:01)
[2019-02-18] MEDS: ASPIRIN CHEWABLE 81 MG TABLET. PO SCH (09:01)
--- NOTE | 2019-02-18 09:26 | PDOC ---
CARDIO Progress Notes Date and Time Date of Service 02/18/2019 Time of Evaluation 0910 Subjective Subjective: No Chest Pain, No shortness of breath, No Palpitations Vitals Vitals Vital Signs Date Time Temp Pulse Resp B/P (MAP) Pulse Ox O2 Delivery O2 Flow Rate FiO2 02/18/19 09:01 70 156/64 02/18/19 07:00 98.0 18 95 Room Air 98.0 Weight Weight [ ] Input and Output Intake and Output Intake and Output 02/18/19 07:00 Intake Total 1090 ml Balance 1090 ml Intake Oral 1090 ml Laboratory Labs Laboratory Tests Test 02/17/19 15:40 02/17/19 17:00 02/17/19 20:04 02/18/19 05:05 Sodium Level 140 mmol/L (136-145) 140 mmol/L (136-145) Potassium Level 4.2 mmol/L (3.5-5.1) 5.1 mmol/L (3.5-5.1) Chloride Level 100 mmol/L (98-107) 101 mmol/L (98-107) Carbon Dioxide Level 26 mmol/L (21-32) 25 mmol/L (21-32) Anion Gap 14 (6-14) 14 (6-14) Blood Urea Nitrogen 35 mg/dL (8-26) 43 mg/dL (8-26) Creatinine 5.8 mg/dL (0.7-1.3) 7.1 mg/dL (0.7-1.3) Estimated GFR (Cockcroft-Gault) 10.0 7.9 Glucose Level 132 mg/dL (70-99) 115 mg/dL (70-99) Calcium Level 7.6 mg/dL (8.5-10.1) 7.6 mg/dL (8.5-10.1) Magnesium Level 1.9 mg/dL (1.8-2.4) Iron Level 26 ug/dL (65-175) Total Iron Binding Capacity 200 ug/dL (250-450) Iron Saturation 13 % (15-34) Vitamin B12 Level 436 pg/mL (247-911) Glucose (Fingerstick) 86 mg/dL (70-99) 113 mg/dL (70-99) White Blood Count 8.2 x10^3/uL (4.0-11.0) Red Blood Count 2.89 x10^6/uL (4.30-5.70) Hemoglobin 9.4 g/dL (13.0-17.5) Hematocrit 27.5 % (39.0-53.0) Mean Corpuscular Volume 95 fL (79-100) Mean Corpuscular Hemoglobin 33 pg (25-35) Mean Corpuscular Hemoglobin Concent 34 g/dL (31-37) Red Cell Distribution Width 16.5 % (11.5-14.5) Platelet Count 162 x10^3/uL (140-400) Neutrophils (%) (Auto) 81 % (31-73) Lymphocytes (%) (Auto) 4 % (24-48) Monocytes (%) (Auto) 10 % (0-9) Eosinophils (%) (Auto) 4 % (0-3) Basophils (%) (Auto) 1 % (0-3) Neutrophils # (Auto) 6.6 x10^3uL (1.8-7.7) Lymphocytes # (Auto) 0.4 x10^3/uL (1.0-4.8) Monocytes # (Auto) 0.8 x10^3/uL (0.0-1.1) Eosinophils # (Auto) 0.3 x10^3/uL (0.0-0.7) Basophils # (Auto) 0.0 x10^3/uL (0.0-0.2) Segmented Neutrophils % 85 % (35-66) Band Neutrophils % 1 % (0-9) Lymphocytes % 3 % (24-48) Monocytes % 7 % (0-10) Eosinophils % 4 % (0-5) Platelet Estimate Adequate (ADEQUATE) Anisocytosis Slight Test 02/18/19 07:29 Glucose (Fingerstick) 97 mg/dL (70-99) Physical Exam HEENT: Neck Supple W Full Motion Chest: Symmetric LUNGS: Clear to Auscultation Heart: S1S2, RRR (SR) Abdomen: Soft N/T Extremities: No Calf Tenderness, Other (trace to 1+ to RLE pitting) Neurology: alert, oriented, follow commands Assessment Assessment 1. Tachyarrhythmia: asymptomatic. leaning more to MAT rather than PAFIB. Much better after lopressor started 2. Elevated top: minimal at at 0.07, demand mediated, type 2 3. Chronic systolic CHF: multifactorial, currently compensated 4. ICM; LVEF 40% 5. Accelerated HTN: improved 6. ESRD 7. 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 8. Anemia of chronic disease: Hgb 10.1 within his baseline 9. DM2 with hypoglycemic episode. 10. CAD s/p previous CABG x5 01/2017--- 12/16/2018 S/P complex PCI/MARILIA to LMCA/LCx /LAD. Clinically stable. 11. Abdominal pain: GI following, better Recommendations 1. Continue secondary prevention. Continue with DAPT. 2. Fluid off loading per HD. 3. Continue lopressor. Add imdur 4. Follow up as scheduled. 5. will arrange for MAGNUS BURNS APRN Feb 18, 2019 09:26
[2019-02-18] MEDS ORDERED: oxyCODONE/APAP 7.5/325 1 TAB TABLET PO PRN (09:30)
--- NOTE | 2019-02-18 09:38 | PDOC ---
PULMONARY PROGRESS NOTES Subjective no soa Vitals Vital Signs Date Time Temp Pulse Resp B/P (MAP) Pulse Ox O2 Delivery O2 Flow Rate FiO2 02/18/19 09:01 70 156/64 02/18/19 07:00 98.0 18 95 Room Air 98.0 General: Alert, No acute distress Lungs: Clear Cardiovascular: S1, S2 Abdomen: Soft Neuro Exam: Alert Extremities: No Edema Skin: Warm Labs Laboratory Tests Test 02/16/19 21:55 02/17/19 02:01 02/17/19 02:21 02/17/19 05:00 White Blood Count 8.3 x10^3/uL (4.0-11.0) Red Blood Count 3.15 x10^6/uL (4.30-5.70) Hemoglobin 10.1 g/dL (13.0-17.5) Hematocrit 30.2 % (39.0-53.0) Mean Corpuscular Volume 96 fL (79-100) Mean Corpuscular Hemoglobin 32 pg (25-35) Mean Corpuscular Hemoglobin Concent 33 g/dL (31-37) Red Cell Distribution Width 16.7 % (11.5-14.5) Platelet Count 196 x10^3/uL (140-400) Neutrophils (%) (Auto) 76 % (31-73) Lymphocytes (%) (Auto) 8 % (24-48) Monocytes (%) (Auto) 9 % (0-9) Eosinophils (%) (Auto) 7 % (0-3) Basophils (%) (Auto) 1 % (0-3) Neutrophils # (Auto) 6.3 x10^3uL (1.8-7.7) Lymphocytes # (Auto) 0.7 x10^3/uL (1.0-4.8) Monocytes # (Auto) 0.7 x10^3/uL (0.0-1.1) Eosinophils # (Auto) 0.6 x10^3/uL (0.0-0.7) Basophils # (Auto) 0.1 x10^3/uL (0.0-0.2) Sodium Level 141 mmol/L (136-145) Potassium Level 5.8 mmol/L (3.5-5.1) Chloride Level 102 mmol/L (98-107) Carbon Dioxide Level 23 mmol/L (21-32) Anion Gap 16 (6-14) Blood Urea Nitrogen 75 mg/dL (8-26) Creatinine 9.2 mg/dL (0.7-1.3) Estimated GFR (Cockcroft-Gault) 5.8 BUN/Creatinine Ratio 8 (6-20) Glucose Level 86 mg/dL (70-99) Calcium Level 6.7 mg/dL (8.5-10.1) Magnesium Level 2.3 mg/dL (1.8-2.4) Total Bilirubin 0.4 mg/dL (0.2-1.0) Aspartate Amino Transf (AST/SGOT) 20 U/L (15-37) Alanine Aminotransferase (ALT/SGPT) 14 U/L (16-63) Alkaline Phosphatase 96 U/L (46-116) Creatine Kinase 245 U/L (39-308) Creatine Kinase MB (Mass) 1.8 ng/mL (0.0-3.6) Creatine Kinase MB Relative Index 0.7 % (0-4) Troponin I Quantitative 0.059 ng/mL (0.000-0.055) 0.070 ng/mL (0.000-0.055) Total Protein 7.0 g/dL (6.4-8.2) Albumin 3.3 g/dL (3.4-5.0) Albumin/Globulin Ratio 0.9 (1.0-1.7) Lipase 610 U/L (73-393) Glucose (Fingerstick) 35 mg/dL (70-99) 134 mg/dL (70-99) Reticulocyte Count (auto) 1.7 % (0.5-2.5) Test 02/17/19 05:59 02/17/19 06:57 02/17/19 07:34 02/17/19 15:40 Glucose (Fingerstick) 67 mg/dL (70-99) 79 mg/dL (70-99) Troponin I Quantitative 0.068 ng/mL (0.000-0.055) Sodium Level 140 mmol/L (136-145) Potassium Level 4.2 mmol/L (3.5-5.1) Chloride Level 100 mmol/L (98-107) Carbon Dioxide Level 26 mmol/L (21-32) Anion Gap 14 (6-14) Blood Urea Nitrogen 35 mg/dL (8-26) Creatinine 5.8 mg/dL (0.7-1.3) Estimated GFR (Cockcroft-Gault) 10.0 Glucose Level 132 mg/dL (70-99) Calcium Level 7.6 mg/dL (8.5-10.1) Magnesium Level 1.9 mg/dL (1.8-2.4) Iron Level 26 ug/dL (65-175) Total Iron Binding Capacity 200 ug/dL (250-450) Iron Saturation 13 % (15-34) Vitamin B12 Level 436 pg/mL (247-911) Test 02/17/19 17:00 02/17/19 20:04 02/18/19 05:05 02/18/19 07:29 Glucose (Fingerstick) 86 mg/dL (70-99) 113 mg/dL (70-99) 97 mg/dL (70-99) White Blood Count 8.2 x10^3/uL (4.0-11.0) Red Blood Count 2.89 x10^6/uL (4.30-5.70) Hemoglobin 9.4 g/dL (13.0-17.5) Hematocrit 27.5 % (39.0-53.0) Mean Corpuscular Volume 95 fL (79-100) Mean Corpuscular Hemoglobin 33 pg (25-35) Mean Corpuscular Hemoglobin Concent 34 g/dL (31-37) Red Cell Distribution Width 16.5 % (11.5-14.5) Platelet Count 162 x10^3/uL (140-400) Neutrophils (%) (Auto) 81 % (31-73) Lymphocytes (%) (Auto) 4 % (24-48) Monocytes (%) (Auto) 10 % (0-9) Eosinophils (%) (Auto) 4 % (0-3) Basophils (%) (Auto) 1 % (0-3) Neutrophils # (Auto) 6.6 x10^3uL (1.8-7.7) Lymphocytes # (Auto) 0.4 x10^3/uL (1.0-4.8) Monocytes # (Auto) 0.8 x10^3/uL (0.0-1.1) Eosinophils # (Auto) 0.3 x10^3/uL (0.0-0.7) Basophils # (Auto) 0.0 x10^3/uL (0.0-0.2) Segmented Neutrophils % 85 % (35-66) Band Neutrophils % 1 % (0-9) Lymphocytes % 3 % (24-48) Monocytes % 7 % (0-10) Eosinophils % 4 % (0-5) Platelet Estimate Adequate (ADEQUATE) Anisocytosis Slight Sodium Level 140 mmol/L (136-145) Potassium Level 5.1 mmol/L (3.5-5.1) Chloride Level 101 mmol/L (98-107) Carbon Dioxide Level 25 mmol/L (21-32) Anion Gap 14 (6-14) Blood Urea Nitrogen 43 mg/dL (8-26) Creatinine 7.1 mg/dL (0.7-1.3) Estimated GFR (Cockcroft-Gault) 7.9 Glucose Level 115 mg/dL (70-99) Calcium Level 7.6 mg/dL (8.5-10.1) Laboratory Tests Test 02/17/19 15:40 02/17/19 17:00 02/17/19 20:04 02/18/19 05:05 Sodium Level 140 mmol/L (136-145) 140 mmol/L (136-145) Potassium Level 4.2 mmol/L (3.5-5.1) 5.1 mmol/L (3.5-5.1) Chloride Level 100 mmol/L (98-107) 101 mmol/L (98-107) Carbon Dioxide Level 26 mmol/L (21-32) 25 mmol/L (21-32) Anion Gap 14 (6-14) 14 (6-14) Blood Urea Nitrogen 35 mg/dL (8-26) 43 mg/dL (8-26) Creatinine 5.8 mg/dL (0.7-1.3) 7.1 mg/dL (0.7-1.3) Estimated GFR (Cockcroft-Gault) 10.0 7.9 Glucose Level 132 mg/dL (70-99) 115 mg/dL (70-99) Calcium Level 7.6 mg/dL (8.5-10.1) 7.6 mg/dL (8.5-10.1) Magnesium Level 1.9 mg/dL (1.8-2.4) Iron Level 26 ug/dL (65-175) Total Iron Binding Capacity 200 ug/dL (250-450) Iron Saturation 13 % (15-34) Vitamin B12 Level 436 pg/mL (247-911) Glucose (Fingerstick) 86 mg/dL (70-99) 113 mg/dL (70-99) White Blood Count 8.2 x10^3/uL (4.0-11.0) Red Blood Count 2.89 x10^6/uL (4.30-5.70) Hemoglobin 9.4 g/dL (13.0-17.5) Hematocrit 27.5 % (39.0-53.0) Mean Corpuscular Volume 95 fL (79-100) Mean Corpuscular Hemoglobin 33 pg (25-35) Mean Corpuscular Hemoglobin Concent 34 g/dL (31-37) Red Cell Distribution Width 16.5 % (11.5-14.5) Platelet Count 162 x10^3/uL (140-400) Neutrophils (%) (Auto) 81 % (31-73) Lymphocytes (%) (Auto) 4 % (24-48) Monocytes (%) (Auto) 10 % (0-9) Eosinophils (%) (Auto) 4 % (0-3) Basophils (%) (Auto) 1 % (0-3) Neutrophils # (Auto) 6.6 x10^3uL (1.8-7.7) Lymphocytes # (Auto) 0.4 x10^3/uL (1.0-4.8) Monocytes # (Auto) 0.8 x10^3/uL (0.0-1.1) Eosinophils # (Auto) 0.3 x10^3/uL (0.0-0.7) Basophils # (Auto) 0.0 x10^3/uL (0.0-0.2) Segmented Neutrophils % 85 % (35-66) Band Neutrophils % 1 % (0-9) Lymphocytes % 3 % (24-48) Monocytes % 7 % (0-10) Eosinophils % 4 % (0-5) Platelet Estimate Adequate (ADEQUATE) Anisocytosis Slight Test 02/18/19 07:29 Glucose (Fingerstick) 97 mg/dL (70-99) Medications Active Scripts Medications Dose Route/Sig Max Daily Dose Days Date Category Atorvastatin Calcium 40 Mg Tablet 40 Mg PO QHS 12/17/18 Rx Aspirin 81 Mg Tab.chew 320 Mg PO DAILY 02/07/18 Reported Cozaar (Losartan Potassium) 50 Mg Tablet 50 Mg PO DAILY 09/30/17 Rx Metoprolol Tartrate 100 Mg Tablet 1 Tab PO BID 07/09/17 Reported Plavix (Clopidogrel Bisulfate) 75 Mg Tablet 75 PO DAILY 04/16/17 Reported Hydralazine Hcl 50 Mg Tablet 50 TID 04/16/17 Reported Nephro-Chilo Tablet (Folic Acid/Vitamin B Comp W-C) 0.8 Mg Tablet 1 Tab PO DAILY 01/02/17 Reported Paroxetine Hcl 20 Mg Tablet 40 Mg PO DAILY 12/15/16 Reported Tums (Calcium Carbonate) 200 Mg Tab.chew 800 Mg PO TIDAC 12/15/16 Reported Omeprazole Magnesium 20 Mg Capsule.dr 20 Mg PO DAILY 10/16/16 Reported Flomax (Tamsulosin Hcl) 0.4 Mg Cap.er.24h 0.4 Mg PO QHS 06/23/14 Rx Impression . 1. Abnormal chest x-ray with right middle lobe opacity. Clinically, he denies any symptoms of pneumonia. CT chest reviewed. Likely related to known mass/ radiation changes 2. Abdominal pain with diarrhea and nausea. Follow GI and PCP recommendation. 3. End-stage renal disease, on hemodialysis. 4. h/o lung cancer right, s/p XRT, followed at Plan . 1. F/U AY REGARDING LUNG CANCER. 2. At this point, okay to hold antibiotics. 3. Hemodialysis. 4. Follow Cardiology recommendations regarding atrial fibrillation, 5. Discussed with RN. PATEL WITH [facility] BRAYDEN HALE MD Feb 18, 2019 09:38
[2019-02-18] MEDS ORDERED: ISOSORBIDE MONONITRATE ER 30 MG TAB.ER.24H PO SCH (10:00)
[2019-02-18] MEDS ORDERED: HEPARIN PF 500 UNIT/5 ML DISP.SYRIN. IV ONE (10:45)
[2019-02-18 10:55] VITALS: BP 143/61
--- NOTE | 2019-02-18 11:18 | PDOC ---
PROGRESS NOTES Chief Complaint Chief Complaint Hyperkalemia ESRD on HD History of Present Illness History of Present Illness Patient resting comfortably in bed, no complaints today, mood is better today. Feels well enough to go home. Vitals Vitals Vital Signs Date Time Temp Pulse Resp B/P (MAP) Pulse Ox O2 Delivery O2 Flow Rate FiO2 02/18/19 10:55 98.3 65 18 143/61 (88) 96 Room Air 98.3 Physical Exam General: Alert, Oriented X3, Cooperative, No acute distress Heart: Regular rate (SR with intermittent PACs and burst of possible PAFIB vs MAT) Lungs: Clear, Other (good inspiratory effort, symmetric chest expansion) Abdomen: Soft, Other (diffuse tenderness particualrly to epigastric region) Extremities: No clubbing, No cyanosis, No edema, Other (2+ RLE pitting edema) Skin: No breakdown, No significant lesion Labs LABS Laboratory Tests Test 02/17/19 15:40 02/17/19 17:00 02/17/19 20:04 02/18/19 05:05 Sodium Level 140 mmol/L (136-145) 140 mmol/L (136-145) Potassium Level 4.2 mmol/L (3.5-5.1) 5.1 mmol/L (3.5-5.1) Chloride Level 100 mmol/L (98-107) 101 mmol/L (98-107) Carbon Dioxide Level 26 mmol/L (21-32) 25 mmol/L (21-32) Anion Gap 14 (6-14) 14 (6-14) Blood Urea Nitrogen 35 mg/dL (8-26) 43 mg/dL (8-26) Creatinine 5.8 mg/dL (0.7-1.3) 7.1 mg/dL (0.7-1.3) Estimated GFR (Cockcroft-Gault) 10.0 7.9 Glucose Level 132 mg/dL (70-99) 115 mg/dL (70-99) Calcium Level 7.6 mg/dL (8.5-10.1) 7.6 mg/dL (8.5-10.1) Magnesium Level 1.9 mg/dL (1.8-2.4) Iron Level 26 ug/dL (65-175) Total Iron Binding Capacity 200 ug/dL (250-450) Iron Saturation 13 % (15-34) Vitamin B12 Level 436 pg/mL (247-911) Glucose (Fingerstick) 86 mg/dL (70-99) 113 mg/dL (70-99) White Blood Count 8.2 x10^3/uL (4.0-11.0) Red Blood Count 2.89 x10^6/uL (4.30-5.70) Hemoglobin 9.4 g/dL (13.0-17.5) Hematocrit 27.5 % (39.0-53.0) Mean Corpuscular Volume 95 fL (79-100) Mean Corpuscular Hemoglobin 33 pg (25-35) Mean Corpuscular Hemoglobin Concent 34 g/dL (31-37) Red Cell Distribution Width 16.5 % (11.5-14.5) Platelet Count 162 x10^3/uL (140-400) Neutrophils (%) (Auto) 81 % (31-73) Lymphocytes (%) (Auto) 4 % (24-48) Monocytes (%) (Auto) 10 % (0-9) Eosinophils (%) (Auto) 4 % (0-3) Basophils (%) (Auto) 1 % (0-3) Neutrophils # (Auto) 6.6 x10^3uL (1.8-7.7) Lymphocytes # (Auto) 0.4 x10^3/uL (1.0-4.8) Monocytes # (Auto) 0.8 x10^3/uL (0.0-1.1) Eosinophils # (Auto) 0.3 x10^3/uL (0.0-0.7) Basophils # (Auto) 0.0 x10^3/uL (0.0-0.2) Segmented Neutrophils % 85 % (35-66) Band Neutrophils % 1 % (0-9) Lymphocytes % 3 % (24-48) Monocytes % 7 % (0-10) Eosinophils % 4 % (0-5) Platelet Estimate Adequate (ADEQUATE) Anisocytosis Slight Test 02/18/19 07:29 Glucose (Fingerstick) 97 mg/dL (70-99) Review of Systems Review of Systems as per above Assessment and Plan Assessmemt and Plan Problems Medical Problems: (1) Elevated lipase Status: Acute (2) Elevated troponin Status: Acute Assessment: Hyperkalemia - resolved ESRD - on HD MWF Abdominal pain - resolved Peptic ulcer disease Abnormal CXR Afib vs MAT Elevated troponin Accelerated HTN - improved Chronic systolic CHF, history of Ischemic cardiomyopathy with LVEF 40%, history of Anemia of chronic disease Diabetes mellitus, type 2, history of Plan: Cardiology: metoprolol, ECG - appreciate recs GI: start H2 beryl - appreciate recs Nephrology: HD yesterday, continue aranesp - appreciate recs Discussed abnormal CXR and Chest CT with Pulmonology - patient has history of lung cancer and radiation, residual mass, patient to follow up with [facility] as outpatient - appreciate recs Follow up with PCP within 2 weeks Hydrocodone 7.5/325 #30 written and in chart Disposition: hope to discharge later today if ok with subspecialities Comment Review of Relevant I have reviewed the following items dionte (where applicable) has been applied. Labs Laboratory Tests Test 02/16/19 21:55 02/17/19 02:01 02/17/19 02:21 02/17/19 05:00 White Blood Count 8.3 x10^3/uL (4.0-11.0) Red Blood Count 3.15 x10^6/uL (4.30-5.70) Hemoglobin 10.1 g/dL (13.0-17.5) Hematocrit 30.2 % (39.0-53.0) Mean Corpuscular Volume 96 fL (79-100) Mean Corpuscular Hemoglobin 32 pg (25-35) Mean Corpuscular Hemoglobin Concent 33 g/dL (31-37) Red Cell Distribution Width 16.7 % (11.5-14.5) Platelet Count 196 x10^3/uL (140-400) Neutrophils (%) (Auto) 76 % (31-73) Lymphocytes (%) (Auto) 8 % (24-48) Monocytes (%) (Auto) 9 % (0-9) Eosinophils (%) (Auto) 7 % (0-3) Basophils (%) (Auto) 1 % (0-3) Neutrophils # (Auto) 6.3 x10^3uL (1.8-7.7) Lymphocytes # (Auto) 0.7 x10^3/uL (1.0-4.8) Monocytes # (Auto) 0.7 x10^3/uL (0.0-1.1) Eosinophils # (Auto) 0.6 x10^3/uL (0.0-0.7) Basophils # (Auto) 0.1 x10^3/uL (0.0-0.2) Sodium Level 141 mmol/L (136-145) Potassium Level 5.8 mmol/L (3.5-5.1) Chloride Level 102 mmol/L (98-107) Carbon Dioxide Level 23 mmol/L (21-32) Anion Gap 16 (6-14) Blood Urea Nitrogen 75 mg/dL (8-26) Creatinine 9.2 mg/dL (0.7-1.3) Estimated GFR (Cockcroft-Gault) 5.8 BUN/Creatinine Ratio 8 (6-20) Glucose Level 86 mg/dL (70-99) Calcium Level 6.7 mg/dL (8.5-10.1) Magnesium Level 2.3 mg/dL (1.8-2.4) Total Bilirubin 0.4 mg/dL (0.2-1.0) Aspartate Amino Transf (AST/SGOT) 20 U/L (15-37) Alanine Aminotransferase (ALT/SGPT) 14 U/L (16-63) Alkaline Phosphatase 96 U/L (46-116) Creatine Kinase 245 U/L (39-308) Creatine Kinase MB (Mass) 1.8 ng/mL (0.0-3.6) Creatine Kinase MB Relative Index 0.7 % (0-4) Troponin I Quantitative 0.059 ng/mL (0.000-0.055) 0.070 ng/mL (0.000-0.055) Total Protein 7.0 g/dL (6.4-8.2) Albumin 3.3 g/dL (3.4-5.0) Albumin/Globulin Ratio 0.9 (1.0-1.7) Lipase 610 U/L (73-393) Glucose (Fingerstick) 35 mg/dL (70-99) 134 mg/dL (70-99) Reticulocyte Count (auto) 1.7 % (0.5-2.5) Test 02/17/19 05:59 02/17/19 06:57 02/17/19 07:34 02/17/19 15:40 Glucose (Fingerstick) 67 mg/dL (70-99) 79 mg/dL (70-99) Troponin I Quantitative 0.068 ng/mL (0.000-0.055) Sodium Level 140 mmol/L (136-145) Potassium Level 4.2 mmol/L (3.5-5.1) Chloride Level 100 mmol/L (98-107) Carbon Dioxide Level 26 mmol/L (21-32) Anion Gap 14 (6-14) Blood Urea Nitrogen 35 mg/dL (8-26) Creatinine 5.8 mg/dL (0.7-1.3) Estimated GFR (Cockcroft-Gault) 10.0 Glucose Level 132 mg/dL (70-99) Calcium Level 7.6 mg/dL (8.5-10.1) Magnesium Level 1.9 mg/dL (1.8-2.4) Iron Level 26 ug/dL (65-175) Total Iron Binding Capacity 200 ug/dL (250-450) Iron Saturation 13 % (15-34) Vitamin B12 Level 436 pg/mL (247-911) Test 02/17/19 17:00 02/17/19 20:04 02/18/19 05:05 02/18/19 07:29 Glucose (Fingerstick) 86 mg/dL (70-99) 113 mg/dL (70-99) 97 mg/dL (70-99) White Blood Count 8.2 x10^3/uL (4.0-11.0) Red Blood Count 2.89 x10^6/uL (4.30-5.70) Hemoglobin 9.4 g/dL (13.0-17.5) Hematocrit 27.5 % (39.0-53.0) Mean Corpuscular Volume 95 fL (79-100) Mean Corpuscular Hemoglobin 33 pg (25-35) Mean Corpuscular Hemoglobin Concent 34 g/dL (31-37) Red Cell Distribution Width 16.5 % (11.5-14.5) Platelet Count 162 x10^3/uL (140-400) Neutrophils (%) (Auto) 81 % (31-73) Lymphocytes (%) (Auto) 4 % (24-48) Monocytes (%) (Auto) 10 % (0-9) Eosinophils (%) (Auto) 4 % (0-3) Basophils (%) (Auto) 1 % (0-3) Neutrophils # (Auto) 6.6 x10^3uL (1.8-7.7) Lymphocytes # (Auto) 0.4 x10^3/uL (1.0-4.8) Monocytes # (Auto) 0.8 x10^3/uL (0.0-1.1) Eosinophils # (Auto) 0.3 x10^3/uL (0.0-0.7) Basophils # (Auto) 0.0 x10^3/uL (0.0-0.2) Segmented Neutrophils % 85 % (35-66) Band Neutrophils % 1 % (0-9) Lymphocytes % 3 % (24-48) Monocytes % 7 % (0-10) Eosinophils % 4 % (0-5) Platelet Estimate Adequate (ADEQUATE) Anisocytosis Slight Sodium Level 140 mmol/L (136-145) Potassium Level 5.1 mmol/L (3.5-5.1) Chloride Level 101 mmol/L (98-107) Carbon Dioxide Level 25 mmol/L (21-32) Anion Gap 14 (6-14) Blood Urea Nitrogen 43 mg/dL (8-26) Creatinine 7.1 mg/dL (0.7-1.3) Estimated GFR (Cockcroft-Gault) 7.9 Glucose Level 115 mg/dL (70-99) Calcium Level 7.6 mg/dL (8.5-10.1) Laboratory Tests Test 02/17/19 15:40 02/17/19 17:00 02/17/19 20:04 02/18/19 05:05 Sodium Level 140 mmol/L (136-145) 140 mmol/L (136-145) Potassium Level 4.2 mmol/L (3.5-5.1) 5.1 mmol/L (3.5-5.1) Chloride Level 100 mmol/L (98-107) 101 mmol/L (98-107) Carbon Dioxide Level 26 mmol/L (21-32) 25 mmol/L (21-32) Anion Gap 14 (6-14) 14 (6-14) Blood Urea Nitrogen 35 mg/dL (8-26) 43 mg/dL (8-26) Creatinine 5.8 mg/dL (0.7-1.3) 7.1 mg/dL (0.7-1.3) Estimated GFR (Cockcroft-Gault) 10.0 7.9 Glucose Level 132 mg/dL (70-99) 115 mg/dL (70-99) Calcium Level 7.6 mg/dL (8.5-10.1) 7.6 mg/dL (8.5-10.1) Magnesium Level 1.9 mg/dL (1.8-2.4) Iron Level 26 ug/dL (65-175) Total Iron Binding Capacity 200 ug/dL (250-450) Iron Saturation 13 % (15-34) Vitamin B12 Level 436 pg/mL (247-911) Glucose (Fingerstick) 86 mg/dL (70-99) 113 mg/dL (70-99) White Blood Count 8.2 x10^3/uL (4.0-11.0) Red Blood Count 2.89 x10^6/uL (4.30-5.70) Hemoglobin 9.4 g/dL (13.0-17.5) Hematocrit 27.5 % (39.0-53.0) Mean Corpuscular Volume 95 fL (79-100) Mean Corpuscular Hemoglobin 33 pg (25-35) Mean Corpuscular Hemoglobin Concent 34 g/dL (31-37) Red Cell Distribution Width 16.5 % (11.5-14.5) Platelet Count 162 x10^3/uL (140-400) Neutrophils (%) (Auto) 81 % (31-73) Lymphocytes (%) (Auto) 4 % (24-48) Monocytes (%) (Auto) 10 % (0-9) Eosinophils (%) (Auto) 4 % (0-3) Basophils (%) (Auto) 1 % (0-3) Neutrophils # (Auto) 6.6 x10^3uL (1.8-7.7) Lymphocytes # (Auto) 0.4 x10^3/uL (1.0-4.8) Monocytes # (Auto) 0.8 x10^3/uL (0.0-1.1) Eosinophils # (Auto) 0.3 x10^3/uL (0.0-0.7) Basophils # (Auto) 0.0 x10^3/uL (0.0-0.2) Segmented Neutrophils % 85 % (35-66) Band Neutrophils % 1 % (0-9) Lymphocytes % 3 % (24-48) Monocytes % 7 % (0-10) Eosinophils % 4 % (0-5) Platelet Estimate Adequate (ADEQUATE) Anisocytosis Slight Test 02/18/19 07:29 Glucose (Fingerstick) 97 mg/dL (70-99) Medications Current Medications Lorazepam (Ativan) 0.5 mg 1X ONCE IV Last administered on 02/17/19 00:00; Start 02/16/19 at 23:45; Stop 02/16/19 at 23:46; Status DC Famotidine (Pepcid Vial) 20 mg 1X ONCE IVP Last administered on 02/17/19at 00:01 ; Start 02/16/19 at 23:45; Stop 02/16/19 at 23:46; Status DC Ondansetron HCl (Zofran) 4 mg 1X ONCE IV Last administered on 02/17/19at 00:00; Start 02/16/19 at 23:45; Stop 02/16/19 at 23:46; Status DC Insulin Human Regular (HumuLIN R VIAL) 10 unit 1X ONCE IV Last administered on 02/17/19at 00:43; Start 02/17/19 at 01:00; Stop 02/17/19 at 01:01; Status DC Dextrose (Dextrose 50%-Water Syringe) 25 gm 1X ONCE IV Last administered on 02/17/19at 00:42; Start 02/17/19 at 01:00; Stop 02/17/19 at 01:01; Status DC Fentanyl Citrate (Fentanyl 2ml Vial) 50 mcg 1X ONCE IV Last administered on 02/17/19at 00:50; Start 02/17/19 at 01:00; Stop 02/17/19 at 01:01; Status DC Aspirin (Lillian Aspirin) 325 mg 1X ONCE PO Last administered on 02/17/19 01:30 ; Start 02/17/19 at 01:00; Stop 02/17/19 at 01:01; Status DC Ondansetron HCl (Zofran) 4 mg PRN Q8HRS PRN IV NAUSEA/VOMITING 1ST CHOICE; Start 02/17/19 at 01:15; Stop 02/18/19 at 01:14; Status DC Fentanyl Citrate (Fentanyl 2ml Vial) 50 mcg PRN Q2HRS PRN IV SEVERE PAIN Last administered on 02/17/19at 21:37; Start 02/17/19 at 01:15 Sodium Chloride 1,000 ml @ 20 mls/hr 1X ONCE IV Last administered on at 01:32; Start 02/17/19 at 02:00; Stop 02/19/19 at 03:59 Dextrose (Dextrose 50%-Water Syringe) 25 gm PRN Q15MIN PRN IV hypoglycemia Last administered on 02/17/19at 02:15; Start 02/17/19 at 02:30 Sodium Chloride 1,000 ml @ 1,000 mls/hr Q1H PRN IV hypotension; Start 02/17/19 at 08:58; Stop 02/17/19 at 14:57; Status DC Info (PHARMACY MONITORING -- do not chart) 1 each PRN DAILY PRN MC SEE COMMENTS ; Start 02/17/19 at 09:00; Status UNV Info (PHARMACY MONITORING -- do not chart) 1 each PRN DAILY PRN MC SEE COMMENTS ; Start 02/17/19 at 09:00 Diphenhydramine HCl (Benadryl) 50 mg 1X ONCE IVP Last administered on at 12:40; Start 02/17/19 at 10:15; Stop 02/17/19 at 10:16; Status DC Aripiprazole (Abilify) 2 mg DAILY PO Last administered on 02/18/19 09:01; Start 02/17/19 at 11:00 Pantoprazole Sodium (Protonix) 40 mg DAILYAC PO Last administered on 02/18/19 09:00; Start 02/17/19 at 16:30 Darbepoetin Percy (Aranesp) 60 mcg Tu SQ ; Start 02/17/19 at 21:00 Aspirin (Children'S Aspirin) 320 mg DAILY PO Last administered on 02/18/19 09: 01; Start 02/17/19 at 15:00 Atorvastatin Calcium (Lipitor) 40 mg QHS PO Last administered on 02/17/19at 21:37 ; Start 02/17/19 at 21:00 Calcium Carbonate/ Glycine (Tums) 800 mg TIDAC PO Last administered on 09:00; Start 02/17/19 at 16:30 Clopidogrel Bisulfate (Plavix) 75 mg DAILY PO Last administered on 02/18/19 08: 59; Start 02/17/19 at 14:30 Vitamin B Complex/ Vitamin C (Frances-Chilo) 1 tab DAILY PO Last administered on 09:01; Start 02/17/19 at 15:00 Losartan Potassium (Cozaar) 50 mg DAILY PO Last administered on 02/18/19 09:01 ; Start 02/17/19 at 15:00 Tamsulosin HCl (Flomax) 0.4 mg QHS PO Last administered on 02/17/19 21:36; Start 02/17/19 at 21:00 Metoprolol Tartrate (Lopressor) 100 mg BID PO Last administered on 02/18/19 08: 59; Start 02/17/19 at 14:30 Non-Formulary Medication (Omeprazole Magnesium ) 20 mg DAILY PO ; Start 02/18/19 at 09:00; Status UNV Paroxetine HCl (Paxil) 40 mg DAILY PO Last administered on 02/18/19 09:01; Start 02/17/19 at 15:00 Hydralazine HCl (Apresoline) 50 mg TID PO Last administered on 02/18/19at 09:00; Start 02/17/19 at 15:00 Alprazolam (Xanax) 0.5 mg PRN TID PRN PO ANXIETY / AGITATION Last administered on 02/18/19 07:05; Start 02/17/19 at 20:45 Oxycodone/ Acetaminophen (Percocet 7.5/ 325) 1 tab PRN Q6HRS PRN PO SEVERE PAIN Last administered on 02/18/19at 10:51; Start 02/18/19 at 09:30 Isosorbide Mononitrate (Imdur) 30 mg DAILY PO Last administered on 02/18/19at 10: 50; Start 02/18/19 at 10:00 Heparin Sodium (Porcine) (Hep Lock Adult) 500 unit 1X ONCE IV ; Start 02/18/19 at 10:45; Stop 02/18/19 at 10:53; Status DC Active Scripts Active Atorvastatin Calcium 40 Mg Tablet 40 Mg PO QHS Cozaar (Losartan Potassium) 50 Mg Tablet 50 Mg PO DAILY Flomax (Tamsulosin Hcl) 0.4 Mg Cap.er.24h 0.4 Mg PO QHS Reported Aspirin 81 Mg Tab.chew 320 Mg PO DAILY Metoprolol Tartrate 100 Mg Tablet 1 Tab PO BID Plavix (Clopidogrel Bisulfate) 75 Mg Tablet 75 PO DAILY Hydralazine Hcl 50 Mg Tablet 50 TID Nephro-Chilo Tablet (Folic Acid/Vitamin B Comp W-C) 0.8 Mg Tablet 1 Tab PO DAILY Paroxetine Hcl 20 Mg Tablet 40 Mg PO DAILY Tums (Calcium Carbonate) 200 Mg Tab.chew 800 Mg PO TIDAC Omeprazole Magnesium 20 Mg Capsule.dr 20 Mg PO DAILY Vitals/I & O Vital Sign - Last 24 Hours 02/17/19 02/17/19 02/17/19 02/17/19 14:50 14:52 14:56 15:00 Temp 97.9 97.9 Pulse 80 80 80 118 Resp 18 B/P (MAP) 137/61 137/61 137/61 117/76 (90) Pulse Ox 95 O2 Delivery Room Air 02/17/19 02/17/19 02/17/19 02/17/19 19:38 20:00 21:37 21:37 Temp 98.1 98.1 Pulse 68 68 Resp 20 B/P (MAP) 149/45 (79) 149/45 Pulse Ox 93 93 O2 Delivery Room Air Room Air Room Air 02/17/19 02/17/19 02/17/19 02/18/19 21:43 22:07 23:23 03:30 Temp 98.2 98.2 98.2 98.2 Pulse 68 68 69 Resp 18 18 B/P (MAP) 149/45 139/69 (92) 157/65 (95) Pulse Ox 93 95 94 O2 Delivery Room Air Room Air Room Air 02/18/19 02/18/19 02/18/19 02/18/19 07:00 08:59 09:00 09:01 Temp 98.0 98.0 Pulse 70 70 70 70 Resp 18 B/P (MAP) 156/64 (94) 156/64 156/64 156/64 Pulse Ox 95 O2 Delivery Room Air 02/18/19 02/18/19 02/18/19 10:50 10:51 10:55 Temp 98.3 98.3 Pulse 70 65 Resp 18 B/P (MAP) 156/64 143/61 (88) Pulse Ox 96 O2 Delivery Room Air Room Air Intake and Output 02/17/19 02/17/19 02/18/19 14:59 22:59 06:59 Intake Total 890 ml 200 ml Balance 890 ml 200 ml YIN QUARLES III DO Feb 18, 2019 11:18
--- NOTE | 2019-02-18 12:29 | PDOC ---
Subjective: Subjective: Going home today. Feeling better - has occasional epigastric pain, improved w/ eating. Describes some occasional nocturnal reflux after eating late. Talks about how he'd like to move to [place]. Objective: Vital Signs: Vital Signs Date Time Temp Pulse Resp B/P (MAP) Pulse Ox O2 Delivery O2 Flow Rate FiO2 02/18/19 10:55 98.3 65 18 143/61 (88) 96 Room Air 98.3 Labs: Laboratory Tests Test 02/17/19 15:40 02/17/19 17:00 02/17/19 20:04 02/18/19 05:05 Sodium Level 140 mmol/L 140 mmol/L Potassium Level 4.2 mmol/L 5.1 mmol/L Chloride Level 100 mmol/L 101 mmol/L Carbon Dioxide Level 26 mmol/L 25 mmol/L Anion Gap 14 14 Blood Urea Nitrogen 35 mg/dL 43 mg/dL Creatinine 5.8 mg/dL 7.1 mg/dL Estimated GFR (Cockcroft-Gault) 10.0 7.9 Glucose Level 132 mg/dL 115 mg/dL Calcium Level 7.6 mg/dL 7.6 mg/dL Magnesium Level 1.9 mg/dL Iron Level 26 ug/dL Total Iron Binding Capacity 200 ug/dL Iron Saturation 13 % Vitamin B12 Level 436 pg/mL Glucose (Fingerstick) 86 mg/dL 113 mg/dL White Blood Count 8.2 x10^3/uL Red Blood Count 2.89 x10^6/uL Hemoglobin 9.4 g/dL Hematocrit 27.5 % Mean Corpuscular Volume 95 fL Mean Corpuscular Hemoglobin 33 pg Mean Corpuscular Hemoglobin Concent 34 g/dL Red Cell Distribution Width 16.5 % Platelet Count 162 x10^3/uL Neutrophils (%) (Auto) 81 % Lymphocytes (%) (Auto) 4 % Monocytes (%) (Auto) 10 % Eosinophils (%) (Auto) 4 % Basophils (%) (Auto) 1 % Neutrophils # (Auto) 6.6 x10^3uL Lymphocytes # (Auto) 0.4 x10^3/uL Monocytes # (Auto) 0.8 x10^3/uL Eosinophils # (Auto) 0.3 x10^3/uL Basophils # (Auto) 0.0 x10^3/uL Segmented Neutrophils % 85 % Band Neutrophils % 1 % Lymphocytes % 3 % Monocytes % 7 % Eosinophils % 4 % Platelet Estimate Adequate Anisocytosis Slight Test 02/18/19 07:29 02/18/19 12:10 Glucose (Fingerstick) 97 mg/dL 112 mg/dL Imaging: Chest CT IMPRESSION: 1. There is a persistent focus of abnormal right lower lobe parenchymal density slightly decrease. However given persistence, mass is not excluded. PET CT could be beneficial. Lymphadenopathy has decreased. 2. There is again evidence of polycystic kidney disease. 3. There are again small right greater than left pleural effusions, somewhat decreased on the right. 4. There has been be sternotomy. There is coronary calcification. PE: GEN: NAD LUNGS: CTAB HEART: RRR ABD: S/ND/NT NEURO/PSYCH: A & O 3 A/P: Upper abd pain - better Intermittent tachyarrhythmia, cardiomyopathy, CAD, ESRD on HD, PAD w/ recent RLE endarterectomy/bypass, lung cancer Anxiety -- DC per primary. Discussed use of H2 beryl or PPI considering h/o DU - he says he will buy one or the other OTC and would like to follow-up w/ Dr. Nair for outpt EGD later on. TOMMY SALVADOR Feb 18, 2019 12:29
--- NOTE | 2019-02-18 12:47 | PDOC ---
Renal-Progress Notes Subjective Notes Notes FEELING BETTER History of Present Illness Hx of present illness IMPROVED Vitals Vitals Vital Signs Date Time Temp Pulse Resp B/P (MAP) Pulse Ox O2 Delivery O2 Flow Rate FiO2 02/18/19 10:55 98.3 65 18 143/61 (88) 96 Room Air 98.3 Weight Weight [ ] I.O. Intake and Output Intake and Output 02/18/19 07:00 Intake Total 1090 ml Balance 1090 ml Intake Oral 1090 ml Labs Labs Laboratory Tests Test 02/17/19 15:40 02/17/19 17:00 02/17/19 20:04 02/18/19 05:05 Sodium Level 140 mmol/L (136-145) 140 mmol/L (136-145) Potassium Level 4.2 mmol/L (3.5-5.1) 5.1 mmol/L (3.5-5.1) Chloride Level 100 mmol/L (98-107) 101 mmol/L (98-107) Carbon Dioxide Level 26 mmol/L (21-32) 25 mmol/L (21-32) Anion Gap 14 (6-14) 14 (6-14) Blood Urea Nitrogen 35 mg/dL (8-26) 43 mg/dL (8-26) Creatinine 5.8 mg/dL (0.7-1.3) 7.1 mg/dL (0.7-1.3) Estimated GFR (Cockcroft-Gault) 10.0 7.9 Glucose Level 132 mg/dL (70-99) 115 mg/dL (70-99) Calcium Level 7.6 mg/dL (8.5-10.1) 7.6 mg/dL (8.5-10.1) Magnesium Level 1.9 mg/dL (1.8-2.4) Iron Level 26 ug/dL (65-175) Total Iron Binding Capacity 200 ug/dL (250-450) Iron Saturation 13 % (15-34) Vitamin B12 Level 436 pg/mL (247-911) Glucose (Fingerstick) 86 mg/dL (70-99) 113 mg/dL (70-99) White Blood Count 8.2 x10^3/uL (4.0-11.0) Red Blood Count 2.89 x10^6/uL (4.30-5.70) Hemoglobin 9.4 g/dL (13.0-17.5) Hematocrit 27.5 % (39.0-53.0) Mean Corpuscular Volume 95 fL (79-100) Mean Corpuscular Hemoglobin 33 pg (25-35) Mean Corpuscular Hemoglobin Concent 34 g/dL (31-37) Red Cell Distribution Width 16.5 % (11.5-14.5) Platelet Count 162 x10^3/uL (140-400) Neutrophils (%) (Auto) 81 % (31-73) Lymphocytes (%) (Auto) 4 % (24-48) Monocytes (%) (Auto) 10 % (0-9) Eosinophils (%) (Auto) 4 % (0-3) Basophils (%) (Auto) 1 % (0-3) Neutrophils # (Auto) 6.6 x10^3uL (1.8-7.7) Lymphocytes # (Auto) 0.4 x10^3/uL (1.0-4.8) Monocytes # (Auto) 0.8 x10^3/uL (0.0-1.1) Eosinophils # (Auto) 0.3 x10^3/uL (0.0-0.7) Basophils # (Auto) 0.0 x10^3/uL (0.0-0.2) Segmented Neutrophils % 85 % (35-66) Band Neutrophils % 1 % (0-9) Lymphocytes % 3 % (24-48) Monocytes % 7 % (0-10) Eosinophils % 4 % (0-5) Platelet Estimate Adequate (ADEQUATE) Anisocytosis Slight Test 02/18/19 07:29 02/18/19 12:10 Glucose (Fingerstick) 97 mg/dL (70-99) 112 mg/dL (70-99) Review of Systems Constitutional: yes: weakness, alert, oriented Ears/Nose/Throat: Yes: no symptom reported Eyes: Yes: no symptom reported Pulmonary: Yes no symptom reported Cardiovascular: Yes no symptom reported Gastrointestional: Yes: no symptom reported Genitourinary: Yes: no symptom reported Musculoskeletal: Yes: no symptom reported Skin: Yes no symptom reported Psychiatric/Neurological: Yes: no symptom reported Endocrine: Yes: no symptom reported Physical Exam General Appearance: no apparent distress Skin: warm Respiratory: bilateral CTA Heart: S1S2, RRR Abdomen: soft, bowel sounds present Genitourinary: bladder flat Extremities: pulses present Neurology: alert, oriented Assessment Assessment IMP HYPERKALEMIA-RESOLVED DM II HTN ANEMIA ESRD ABDOMINAL PAIN PAD ANXIETY PLAN HD TOMORROW D/C PLANS NOTED PT WILL HD OP WILL FOLLOW JAYDE NGUYEN MD Feb 18, 2019 12:47
--- NOTE | 2019-02-18 13:40 | NUR ---
Discharge Note: [facility] Discharge instructions and discharge home medications reviewed with Patient and a copy given. All questions have been answered and understanding verbalized. The following instructions and handouts were given: F/U with PCP within one week. Continue dialysis as scheduled. Port-a-cath de-accessed. Per protocol, heparin flush used before intervention. Pt tolerated without complaints. Patient discharged to Home or Self Care with Self via Ambulated.
--- NOTE | 2019-02-18 18:23 | DS ---
DATE OF DISCHARGE: 02/18/2019 ADMISSION DIAGNOSIS: Hyperkalemia. DISCHARGE DIAGNOSES: Resolving hyperkalemia, end-stage renal disease, anxiety, diabetes, hypertension, history of bladder cancer, history of lung cancer. CONSULTS: Dr. Arenas and Dr. Escobar. PROCEDURES: Dialysis. HOSPITAL COURSE: The patient is a pleasant middle-aged male, well known to our service. Basically, we are admitting him at this time because of hyperkalemia. He was admitted. We got him dialyzed. His potassium has normalized. He also had an abnormality on his chest x-ray, but he has had a history of lung cancer. We suspect that is perhaps a scar or perhaps a small recurrence. I did consult Dr. Arenas. He is comfortable with the patient going home. The patient was seen and examined this morning. Heart tones were normal. His lungs were clear. We plan to discharge. DISPOSITION: Home. ACTIVITY: As tolerated. DIET: Low sodium. MEDICATIONS: Please see the MRAD. TOTAL TIME: 32 minutes. YIN QUARLES DO DR: EVELIN/alyson JOB#: [id number] / [id number]
== END 2019-02-18 13:40 | disposition home or self-care (01) | DRG 640 ==
LOC: ER 20:45 → 6 SOUTH 02-17 01:05
PROVIDERS: ADMIT Internal Medicine; ATTEND Internal Medicine
PROC: 5A1D70Z Performance of Urinary Filtration, Intermittent, Less than 6 Hours Per Day (ICD-10-PCS; principal; 2019-02-17)
DX: E87.5 Hyperkalemia (principal); N18.6 End stage renal disease; I13.2 Hypertensive heart and chronic kidney disease with heart failure and with stage 5 chronic kidney disease, or end stage renal disease; I50.22 Chronic systolic (congestive) heart failure; I24.8 Other forms of acute ischemic heart disease; E11.22 Type 2 diabetes mellitus with diabetic chronic kidney disease; F41.9 Anxiety disorder, unspecified; Z96.1 Presence of intraocular lens; Z95.1 Presence of aortocoronary bypass graft; E11.51 Type 2 diabetes mellitus with diabetic peripheral angiopathy without gangrene; E11.649 Type 2 diabetes mellitus with hypoglycemia without coma; K21.9 Gastro-esophageal reflux disease without esophagitis; I25.5 Ischemic cardiomyopathy; D63.8 Anemia in other chronic diseases classified elsewhere; E66.9 Obesity, unspecified; N40.0 Benign prostatic hyperplasia without lower urinary tract symptoms; E78.5 Hyperlipidemia, unspecified; F32.9 Major depressive disorder, single episode, unspecified; G47.33 Obstructive sleep apnea (adult) (pediatric); J44.9 Chronic obstructive pulmonary disease, unspecified; I48.91 Unspecified atrial fibrillation; Z85.51 Personal history of malignant neoplasm of bladder; Z85.118 Personal history of other malignant neoplasm of bronchus and lung; Z90.49 Acquired absence of other specified parts of digestive tract; Z95.5 Presence of coronary angioplasty implant and graft; Z99.2 Dependence on renal dialysis; Z83.3 Family history of diabetes mellitus; Z87.11 Personal history of peptic ulcer disease; Z82.3 Family history of stroke; Z92.3 Personal history of irradiation; Z79.02 Long term (current) use of antithrombotics/antiplatelets; Z79.82 Long term (current) use of aspirin; Z82.49 Family history of ischemic heart disease and other diseases of the circulatory system; Z95.820 Peripheral vascular angioplasty status with implants and grafts
CPT/HCPCS: 36415; 71045; 71250; 74176; 80048; 80053; 82553; 82607; 82962; 83540; 83550; 83690; 83735; 84484; 85007; 85025; 85045; 93005; 93971; 96361; 96374; 96375; J1200; J1815; J2060; J2405; J3010; J3490; J7030; J7042; 99285-25

== ENCOUNTER 2019-02-26 04:18 | Inpatient (IN) | payer MEDICARE ==
[~2019-02-26] VITALS: Ht 170.2 cm; Wt 66.7 kg
[2019-02-26 09:25] VITALS: BP 156/61
[2019-02-26] MEDS ORDERED: HYDR-2761 PO (09:26)
[2019-02-26] MEDS ORDERED: ALPR0.25 PO (09:27)
[2019-02-26] MEDS ORDERED: ALPRAZolam 1 MG TABLET PO PRN (11:00)
[2019-02-26 11:05] VITALS: BP 201/83
[2019-02-26] MEDS ORDERED: diphenhydrAMINE 50 MG/ML VIAL ONE (11:40)
[2019-02-26] MEDS ORDERED: ACETAMINOPHEN 500 MG TABLET PO PRN (11:45)
[2019-02-26] MEDS ORDERED: ALBUMIN HUMAN 25% 200 ML IV PRN (11:45)
[2019-02-26] MEDS ORDERED: DIALYSIS PATIENT. MC PRN (11:45)
[2019-02-26] MEDS ORDERED: diphenhydrAMINE 50 MG/ML VIAL IV PRN ×2 (11:45)
[2019-02-26 11:46] VITALS: BP 167/74
[2019-02-26] MEDS ORDERED: IV NORMAL SALINE 1000ML BAG 1,000 ML IV PRN ×2 (12:00)
--- NOTE | 2019-02-26 12:34 | PDOC2 ---
CONSULT Date of Consult Date of Consult DATE: 02/26/19 TIME: 12:31 Reason for Consult Reason for Consult: ESRD Identification/Chief Complaint Chief Complaint " I was Choking , I went to [place] at 2 am" Source Source: Chart review, Patient History of Present Illness Reason for Visit: The patient is a 63-year-old male patient who presented to the Emergency Room of , complaining of shortness of breath. He is known to have end-stage renal disease, on hemodialysis on Saturday, , Saturday with dietary noncompliance and intake of salty foods, has been known to have frequent exacerbation on admission with pulmonary edema. He has a prior history of COPD and history of tobacco use. He was evaluated in the Emergency Room of [facility] and was found to have elevated troponin. Chest x-ray showed increased cephalization consistent with congestive heart failure/pulmonary edema, cardiomegaly and bypass surgery wires. His lab work showed that he has also elevated troponin and therefore, the patient was transferred to [facility] Past Medical History Cardiovascular: CAD, CHF, HTN, [place] Pulmonary: No pertinent hx, Bronchitis, Other GI: Constipation, GERD, Other Heme/Onc: Anemia NOS, Cancer Psych: Anxiety, Depression Renal/: Chronic renal failure, Bladder Ca., Other Endocrine: Diabetes, Hyperparathyroidism Past Surgical History Past Surgical History: Appendectomy, Cholecystectomy, CABG, Other Family History Family History: Diabetes, Stroke Social History ALCOHOL: none Drugs: None Lives: with Family Domestic Violence: Neg Current Medications Current Medications Current Medications Alprazolam (Xanax) 1 mg PRN Q8HRS PRN PO ANXIETY / AGITATION Last administered on 02/26/19at 11:08; Start 02/26/19 at 11:00 Diphenhydramine HCl (Benadryl) 50 mg STK-MED ONCE .ROUTE ; Start 02/26/19 at 11: 40; Stop 02/26/19 at 11:41; Status DC Sodium Chloride 1,000 ml @ 1,000 mls/hr Q1H PRN IV hypotension; Start 02/26/19 at 12:00; Stop 02/26/19 at 19:00 Albumin Human 200 ml @ 200 mls/hr 1X PRN PRN IV Hypotension; Start 02/26/19 at 11:45; Stop 02/26/19 at 17:44 Acetaminophen (Tylenol) 500 mg 1X PRN PRN PO MILD PAIN / TEMP; Start 02/26/19 at 11:45; Stop 02/26/19 at 19:00 Diphenhydramine HCl (Benadryl) 25 mg 1X PRN PRN IV ITCHING; Start 02/26/19 at 11:45; Stop 02/26/19 at 19:00 Diphenhydramine HCl (Benadryl) 25 mg 1X PRN PRN IV ITCHING; Start 02/26/19 at 11:45; Stop 02/26/19 at 19:00 Sodium Chloride 1,000 ml @ 400 mls/hr Q2H30M PRN IV PATENCY; Start 02/26/19 at 12:00; Stop 02/26/19 at 19:00 Info (PHARMACY MONITORING -- do not chart) 1 each PRN DAILY PRN MC SEE COMMENTS ; Start 02/26/19 at 11:45 Active Scripts Active Atorvastatin Calcium 40 Mg Tablet 40 Mg PO QHS Cozaar (Losartan Potassium) 50 Mg Tablet 50 Mg PO DAILY Flomax (Tamsulosin Hcl) 0.4 Mg Cap.er.24h 0.4 Mg PO QHS Reported Xanax (Alprazolam) 0.25 Mg Tablet 0.25 Mg PO PRN Q6HRS PRN Hydrocodone-Apap 5-325 (Hydrocodone Bit/Acetaminophen) 1 Tab Tablet 1 Tab PO PRN Q6HRS PRN Aspirin 81 Mg Tab.chew 320 Mg PO DAILY Metoprolol Tartrate 100 Mg Tablet 1 Tab PO BID Plavix (Clopidogrel Bisulfate) 75 Mg Tablet 75 PO DAILY Hydralazine Hcl 50 Mg Tablet 50 TID Nephro-Chilo Tablet (Folic Acid/Vitamin B Comp W-C) 0.8 Mg Tablet 1 Tab PO DAILY Paroxetine Hcl 20 Mg Tablet 40 Mg PO DAILY Tums (Calcium Carbonate) 200 Mg Tab.chew 800 Mg PO TIDAC Omeprazole Magnesium 20 Mg Capsule.dr 20 Mg PO DAILY Allergies Allergies: Coded Allergies: No Known Drug Allergies (Unverified , 02/17/19) ROS Review of System As per HPI Physical Exam Physical Exam GEN: NAD HEEN: OM moist NECK: supple CVS: RRR RESP:CTA, No Acc. Muscle Use GI: BS + ve, NO Bruit, Non Tender, Non Distended : No ] CVA tenderness, No Suprapubic Tenderness NEUR0- AXOX3 \\ Skin No rash Vital Signs Vital Signs Date Time Temp Pulse Resp B/P (MAP) Pulse Ox O2 Delivery O2 Flow Rate FiO2 02/26/19 11:46 97.6 72 167/74 (105) 94 Room Air 97.6 02/26/19 09:25 18 Assessment & Plan ESRD -On HD TTS Dialysis Today as Ordered Discussed with filer metal patterns Hyperkalemia- Labs at [place] with K of 5.7 HD Today as Ordered CAD - stable Cardiology following Anemia- On JOSÉ MIGUEL and Fe as per protocol as OP on HD HTN- Antihypertensives Discussed A/P with Pt and RN Labs Labs Laboratory Tests Test 02/26/19 10:48 Glucose (Fingerstick) 127 mg/dL (70-99) Laboratory Tests Test 02/26/19 10:48 Glucose (Fingerstick) 127 mg/dL (70-99) Review All relevant outside records, renal labs, imaging studies, telemetry/EKG's were reviewed. PLACIDO MENDOZA MD Feb 26, 2019 12:34
[2019-02-26 19:11] VITALS: BP 165/69
[2019-02-26] MEDS ORDERED: ATORVASTATIN CALCIUM 40 MG TABLET. PO SCH (22:00)
[2019-02-26] MEDS ORDERED: TAMSULOSIN 0.4 MG CAP.ER.24H. PO SCH (22:00)
[2019-02-26] MEDS: METOPROLOL TART IMMED RELEASE 50 MG TABLET. PO SCH (22:05)
[2019-02-26 22:51] VITALS: BP 155/69
[2019-02-26] MEDS: ALPRAZolam 0.25 MG TABLET PO PRN (23:06)
[2019-02-27 03:34] VITALS: BP 138/62
[2019-02-27] MEDS: ALPRAZolam 0.25 MG TABLET PO PRN ×2 (06:11→11:54)
[2019-02-27] MEDS: HYDROcodone/APAP 5/325MG 1 TAB TABLET PO PRN ×2 (06:16→11:55)
[2019-02-27 07:00] VITALS: BP 141/65
[2019-02-27] MEDS ORDERED: PANTOPRAZOLE 40 MG TABLET.DR. PO SCH (07:30)
[2019-02-27] MEDS: CALCIUM CARBONATE 500 MG TAB.CHEW PO SCH ×3 (08:50→16:54)
[2019-02-27] MEDS: METOPROLOL TART IMMED RELEASE 50 MG TABLET. PO SCH (08:51)
[2019-02-27] MEDS ORDERED: CLOPIDOGREL BISULFATE 75 MG TABLET PO SCH (09:00)
[2019-02-27] MEDS ORDERED: ASPIRIN CHEWABLE 81 MG TABLET. PO SCH (09:00)
[2019-02-27] MEDS ORDERED: LOSARTAN POTASSIUM 50 MG TABLET. PO SCH (09:00)
[2019-02-27] MEDS ORDERED: PARoxetine 20 MG TABLET PO SCH (09:00)
[2019-02-27] MEDS ORDERED: FOLIC/VIT B COMP W-C (RENAL) TABLET. PO SCH (09:00)
--- NOTE | 2019-02-27 10:12 | PDOC2 ---
CARDIAC CONSULT DATE OF CONSULT Date of Consult DATE: 02/27/19 TIME: 09:59 REASON FOR CONSULT Reason for Consult: Elevated troponin REFERRING PHYSICIAN Referring Physician: Major SOURCE Source: Chart review, Patient HISTORY OF PRESENT ILLNESS HISTORY OF PRESENT ILLNESS This is a pleasant 63 yo male admitted for complains of SOA. Reports this just occured and upon admission at [facility] his BP was significantly elevated. He then got transferred to [facility] for further treatment and dialysis. Verbalized compliance with his medications. Denies any chest pain and he has been walking around in the second floor without difficulty begging if he could go home. No SOA, no exertional CP or palpitations. No ectopies in tele monitor. He is laying flat in bed without SOA. Denies any discomfort at all. No recent fever or chills. Denies any falls or any recent injury. No nausea, vomiting, or any HAs. PAST MEDICAL HISTORY Past Medical History Cardiovascular: CAD, CHF, HTN, [place], PAD, [place] Pulmonary: No pertinent hx, Bronchitis, Other GI: Constipation, GERD, Other Heme/Onc: Anemia NOS, Cancer Psych: Anxiety, Depression Renal/: Chronic renal failure, Bladder Ca., Other Endocrine: Diabetes, Hyperparathyroidism PAST SURGICAL HISTORY Past Surgical History Appendectomy, Cholecystectomy, CABG x5 01/2017, PCI/stents, left chest portacath FAMILY HISTORY Family History: Diabetes, Hypertension SOCIAL HISTORY Smoke: No ALCOHOL: none Drugs: None Lives: with Family (spouse) CURRENT MEDICATIONS CURRENT MEDICATIONS Current Medications Medications (Trade) Dose Ordered Sig/Cirilo Route PRN Reason Start Time Stop Time Status Last Admin Dose Admin Alprazolam (Xanax) 1 mg PRN Q8HRS PRN PO ANXIETY / AGITATION 02/26/19 11:00 02/26/19 21:15 DC 02/26/19 11:08 Diphenhydramine HCl (Benadryl) 25 mg 1X PRN PRN IV ITCHING 02/26/19 11:45 02/26/19 19:00 DC 02/26/19 14:30 Diphenhydramine HCl (Benadryl) 25 mg 1X PRN PRN IV ITCHING 02/26/19 11:45 02/26/19 19:00 DC 02/26/19 15:00 Alprazolam (Xanax) 0.25 mg PRN Q6HRS PRN PO ANXIETY / AGITATION 02/26/19 21:15 02/27/19 06:11 Aspirin (Children'S Aspirin) 324 mg DAILY PO 02/27/19 09:00 02/27/19 08:51 Atorvastatin Calcium (Lipitor) 40 mg QHS PO 02/26/19 22:00 02/26/19 22:03 Calcium Carbonate/ Glycine (Tums) 1,000 mg TIDAC PO 02/27/19 07:30 02/27/19 08:50 Clopidogrel Bisulfate (Plavix) 75 mg DAILY PO 02/27/19 09:00 02/27/19 08:50 Vitamin B Complex/ Vitamin C (Frances-Chilo) 1 tab DAILY PO 02/27/19 09:00 02/27/19 08:50 Acetaminophen/ Hydrocodone Bitart (Lortab 5/325) 1 tab PRN Q6HRS PRN PO MODERATE PAIN 02/26/19 21:15 02/27/19 06:16 Losartan Potassium (Cozaar) 50 mg DAILY PO 02/27/19 09:00 02/27/19 08:51 Tamsulosin HCl (Flomax) 0.4 mg QHS PO 02/26/19 22:00 02/26/19 22:03 Hydralazine HCl (Apresoline) 50 mg TID PO 02/26/19 22:00 02/27/19 08:50 Metoprolol Tartrate (Lopressor) 100 mg BID PO 02/26/19 22:00 02/27/19 08:51 Pantoprazole Sodium (Protonix) 40 mg DAILYAC PO 02/27/19 07:30 02/27/19 08:50 Paroxetine HCl (Paxil) 40 mg DAILY PO 02/27/19 09:00 02/27/19 08:51 ALLERGIES ALLERGIES: Coded Allergies: No Known Drug Allergies (Unverified , 02/17/19) ROS Review of System 14 point ROS evaluated with pertinent positives noted per HPI PHYSICAL EXAM General: Alert, Oriented X3, Cooperative, No acute distress HEENT: Atraumatic, Mucous membr. moist/pink Lungs: Clear to auscultation, Normal air movement Heart: Regular rate (SR), Normal S1, Normal S2, Other (2/6 systolic murmur to LLS border) Extremities: No cyanosis, Other (2+ bilateral LE pitting edema) Skin: No breakdown, No significant lesion Neuro: Normal speech, Sensation intact Psych/Mental Status: Mental status NL, Mood NL MUSCULOSKELETAL: Osteoarthritic changes both hands VITALS VITALS Vital Signs Date Time Temp Pulse Resp B/P (MAP) Pulse Ox O2 Delivery O2 Flow Rate FiO2 02/27/19 08:51 62 141/65 02/27/19 08:00 Room Air 02/27/19 07:16 94 02/27/19 07:00 98.4 20 98.4 LABS Lab: Laboratory Tests Test 02/26/19 10:48 Glucose (Fingerstick) 127 mg/dL (70-99) ECHOCARDIOGRAM ECHOCARDIOGRAM <Conclusion> The left ventricle is normal size. Left ventricle systolic function is mildly impaired. The Ejection Fraction is estimated at 40%. There is mild global hypokinesis of the left ventricle. There is mild concentric left ventricular hypertrophy. There is no significant aortic valvular stenosis. Doppler and Color Flow revealed no significant aortic regurgitation. Doppler and Color-flow revealed trace mitral regurgitation. Doppler and Color Flow revealed trace tricuspid regurgitation. DATE: 12/14/18 1747 HEART CATH HEART CATH Conclusion 1. Severe point lay ira vessel coronary artery disease s/p coronary artery bypass surgery with 90% anastomotic lesion involving WHITEHEAD to LAD, occluded sequential SVG to diagonal/obtuse marginal branch with patent segment between the diagonal and obtuse marginal branch, patent sequential saphenous vein graft to posterior descending/posterolateral branches of right coronary artery. The point lay ira left anterior descending artery and the left circumflex artery showed significant lesions as described above. 2. Successful complex PCI/MARILIA to LMCA/LCx/LAD (culotte technique) DATE: 12/16/18 1717 ASSESSMENT/PLAN ASSESSMENT/PLAN 1. Elevated troponin: x1 at 0.06, demand mediated, type 2 with ESRD and uncontrolled HTN,CHF. CP free 2. Malignant HTN; better controlled after HD with initially noted SBP at 212 at [facility] 3. Acute on Chronic systolic CHF: compensated 4. ICM; LVEF 40% 5. ESRD 6. hx of PAD with recent right [employer] endarterectomy/right fem-pop bypass per vascular.Sono neg for DVT and no erythema. 7. DM2 8. CAD s/p previous CABG x5 01/2017--- 12/16/2018 S/P complex PCI/MARILIA to LMCA/LCx/ LAD. Clinically stable. Recommendations 1. Continue secondary prevention. Continue with DAPT. 2. Fluid off loading per HD. 3. Continue lopressor. No imdur was not on his list as this was added before. Will add. uptitrate BP meds per trend 4. Check 1 more trop if no significant changes then may DC from cardiac standpoint 5. Suspected compliance issue likely from language barrier. Discussed with staff for further [place] interpretation and relay appointments and meds to spouse as well 6. follow next week March [address] Virgen at [facility]. MAGNUS CONWAY APRN Feb 27, 2019 10:12
--- NOTE | 2019-02-27 10:34 | HP ---
ADMIT DATE: 02/26/2019 HISTORY OF PRESENT ILLNESS: The patient is a 63-year-old male patient who presented to the Emergency Room of [facility], complaining of shortness of breath. He is known to have end-stage renal disease, on hemodialysis on Saturday, , Saturday and he apparently admits to dietary noncompliance and intake of salty foods, has been known to have frequent exacerbation on admission with pulmonary edema. He has a prior history of COPD and history of tobacco use. The patient said he has not smoked for the past year. He was evaluated in the Emergency Room of [facility] and was found to have elevated troponin. His EKG showed he was in sinus rhythm at 66 beats per minute, has nonspecific abnormalities in the anteroseptal changes, has a prolonged QT interval which was about 504 and corrected was 531 milliseconds. Chest x-ray showed increased cephalization consistent with congestive heart failure/pulmonary edema, cardiomegaly and bypass surgery wires. His lab work showed that he has also elevated troponin and therefore, the patient was transferred to [facility] for hemodialysis and obviously to consult Nephrology and Cardiology, repeat his lipase, his serum lipase was high at 839 although the patient did not complain of any abdominal pain. PAST MEDICAL HISTORY: Significant for coronary artery disease, congestive heart failure, hypertension, myocardial infarction. He is known to have gastroesophageal reflux disease, anemia of chronic kidney disease, anxiety, depression, cancer, chronic renal failure, he has also history of bladder cancer, type 2 diabetes, and hyperparathyroidism. PAST SURGICAL HISTORY: Significant for appendectomy, cholecystectomy, coronary artery bypass graft surgery and recent revascularization of his right lower extremity for severe claudication. He underwent right common femoral artery and profunda artery endarterectomy and right common femoral artery to above knee popliteal artery graft using PTFE. FAMILY HISTORY: Positive for diabetes and stroke. SOCIAL HISTORY: He is , lives with his . He does not smoke, drink alcohol or use any recreational drugs. MEDICATIONS: He is currently on following medications: He is on Flomax 0.4 mg p.o. at bedtime, Plavix 75 mg once a day, atorvastatin 40 mg at bedtime, hydralazine 50 mg 3 times a day, metoprolol tartrate 100 mg twice a day, losartan potassium 50 mg once a day, aspirin 81 mg once a day, hydrocodone/APAP one tablet every 6 hours as needed, paroxetine 40 mg daily, alprazolam 0.5 mg every 6 hours, calcium carbonate 800 mg 3 times a day before meals, omeprazole 20 mg daily, Nephro-Chilo 1 tablet once a day. REVIEW OF SYSTEMS: As per history of present illness. PHYSICAL EXAMINATION: GENERAL: On arrival to the Emergency Room yesterday, he was slightly tachypneic, but no jaundice, cyanosis, or thyromegaly. No jugular venous distension. No limb edema. VITAL SIGNS: His heart rate was 75, blood pressure was 140/70, temperature was 98.2, respiratory rate 24, and oxygen saturation was 93% on room air. HEAD, EYES, EARS, NOSE AND THROAT: Showed normocephalic, atraumatic. NECK: Supple. HEART: Showed regular rate and rhythm. LUNGS: Showed that he has bilateral equal chest expansion, air entry, vesicular breath sounds, with crepitation mostly on both sides, and very few scattered wheezing. ABDOMEN: Soft, nontender. No guarding or rigidity. No organomegaly. All hernial orifices intact. Bowel sounds normal. NEUROLOGIC: He was awake, alert, oriented x 3 with no obvious motor or sensory deficit. LABORATORY DATA: On arrival there showed a white cell count of 10,800; hemoglobin 10.5; hematocrit 31; MCV was 95; and platelet count of 272,000 with normal manual differential. His prothrombin time was 10.1, INR of 1, aPTT was 37. D-dimer was 3.6. Serum sodium 141, potassium 5.2, chloride 100, bicarbonate 30, anion gap of 11, BUN 56, creatinine was 8.2, estimated GFR was 6.7, glucose was , calcium was 7.5, magnesium was 2.1. His total bilirubin, AST, ALT, alkaline phosphatase were normal. His troponin was slightly elevated at 0.069. Beta natriuretic peptide was 92,133. Total protein was 6.9, albumin 3.3. Lipase was high at 839 and glucose was low at . His EKG showed that he was in sinus rhythm at a rate of 66, has nonspecific anteroseptal changes, had a prolonged QT interval of 504 milliseconds, corrected QT interval of 531. Chest x-ray showed increased cephalization consistent with congestive heart failure and pulmonary edema. ASSESSMENT AND PLAN: 1. The patient was transferred to [facility]. We will consult the Nephrology team as well as the Cardiology for elevated troponin. He has also had elevated lipase at 839, so admitted with acute pulmonary edema. 2. End-stage renal disease, on hemodialysis Saturday, and Saturday. 3. Anemia. 4. Coronary artery disease, elevated troponin. 5. Mild hyperkalemia. 6. Anxiety disorder. SUHAS FORD MD DR: TAMAR/alyson JOB#: [id number] / [id number]
[2019-02-27 11:00] VITALS: BP 139/55
[2019-02-27] MEDS ORDERED: ISOSORBIDE MONONITRATE ER 30 MG TAB.ER.24H PO SCH (11:00)
[2019-02-27 15:00] VITALS: BP 149/61
[2019-02-27 15:28] VITALS: BP 149/61
--- NOTE | 2019-02-27 15:30 | RAD ---
Preliminary Report Examination: LUNG VENT/PERFUSION SCAN(VQ) History: short of breath for 2 days, elevated d dimer, surgery on right leg for revascularization 8 weeks ago. 33mCi Xe133 and 5.5mCi Tc99m MAA injected into left upper chest port-a-cath Comparison/Correlation: Findings: 30 mCi xenon-133 gas was administered for ventilation imaging. Delayed washout radiotracer compatible COPD is present. No suspicious ventilation defect. Graft 5.5 mCi technetium 99m MAA was intravenously administered for perfusion imaging. Imaging was performed in a total of 8 projections. No mismatch defect. No suspicious matched defect. Impression: Low probability for pulmonary embolism. MTDD
[2019-02-27] MEDS ORDERED: ISOS30TA4 PO (16:41)
[2019-02-27] MEDS ORDERED: HEPARIN PF 500 UNIT/5 ML DISP.SYRIN. IV ONE (16:45)
== END 2019-02-27 17:25 | disposition home or self-care (01) | DRG 291 ==
LOC: 2 SOUTH 08:45
PROVIDERS: ADMIT Internal Medicine; ATTEND Internal Medicine
PROC: 5A1D70Z Performance of Urinary Filtration, Intermittent, Less than 6 Hours Per Day (ICD-10-PCS; principal; 2019-02-26)
DX: I13.2 Hypertensive heart and chronic kidney disease with heart failure and with stage 5 chronic kidney disease, or end stage renal disease (principal); N18.6 End stage renal disease; I50.43 Acute on chronic combined systolic (congestive) and diastolic (congestive) heart failure; Z99.2 Dependence on renal dialysis; J44.9 Chronic obstructive pulmonary disease, unspecified; I25.10 Atherosclerotic heart disease of native coronary artery without angina pectoris; I25.2 Old myocardial infarction; K21.9 Gastro-esophageal reflux disease without esophagitis; F41.9 Anxiety disorder, unspecified; F32.9 Major depressive disorder, single episode, unspecified; E11.22 Type 2 diabetes mellitus with diabetic chronic kidney disease; E87.5 Hyperkalemia; D63.1 Anemia in chronic kidney disease; K59.00 Constipation, unspecified; E11.51 Type 2 diabetes mellitus with diabetic peripheral angiopathy without gangrene; Z91.11 Patient's noncompliance with dietary regimen; Z87.891 Personal history of nicotine dependence; Z85.51 Personal history of malignant neoplasm of bladder; Z98.61 Coronary angioplasty status; Z95.1 Presence of aortocoronary bypass graft; Z83.3 Family history of diabetes mellitus; Z82.49 Family history of ischemic heart disease and other diseases of the circulatory system; Z82.3 Family history of stroke
CPT/HCPCS: 36415; 78582; 82962; 83690; 84484; 96374; A9540; A9558; J1200

== ENCOUNTER 2019-06-04 11:22 | Emergency (ER) | payer MEDICARE ==
[~2019-06-04] VITALS: Ht 165.1 cm; Wt 59.9 kg
[~2019-06-04 11:22] MED LIST changes: +ALPR0.25 PO; +ALPR1TAB6 PO; +APIX2.5T PO; -PANT40TA3 PO; -PANT40TA5; +PANT40TA77; +PANT40TA77 PO
[2019-06-04] MEDS ORDERED: 0.9 % SOD CHL for STERILE FIELD 10 ML DISP.SYRIN. ONE (11:28)
[2019-06-04 12:19] LABS: BASO # 0.1 x10^3/uL (0.0-0.2); BASO % 1 % (0-3); EOS # 0.2 x10^3/uL (0.0-0.7); EOS % 3 % (0-3); HEMATOCRIT 29.5 % (39.0-53.0); HEMOGLOBIN 10.1 g/dL (13.0-17.5); LYMPH % 14 % (24-48); MEAN CORPUSCULAR HEMOGLOBIN 31 pg (25-35); MEAN CORPUSCULAR HGB CONC 34 g/dL (31-37); MEAN CORPUSCULAR VOLUME 92 fL (79-100); MONO % 13 % (0-9); NEUT % 68 % (31-73); PLATELET COUNT 331 x10^3/uL (140-400); RED BLOOD COUNT 3.23 x10^6/uL (4.30-5.70); RED CELL DISTRIBUTION WIDTH 14.6 % (11.5-14.5); WHITE BLOOD COUNT 7.3 x10^3/uL (4.0-11.0)
[2019-06-04] MEDS ORDERED: GELATIN SPONGE SIZE 12-7MM SPONGE. ONE ×2 (12:24→12:25)
[2019-06-04 12:30] LABS: CALCIUM 9.2 mg/dL (8.5-10.1); CREATININE 4.4 mg/dL (0.7-1.3); GFR 13.7; POTASSIUM 3.6 mmol/L (3.5-5.1)
[2019-06-04 14:00] LABS: PROTHROMBIN TIME PATIENT 13.6 SEC (11.7-14.0)
--- NOTE | 2019-06-04 14:17 | EKG ---
[facility] [address] [place] [address] Test Date: 2019-06-04 Test Time: 11:28:01 Pat Name: IVORY OCONNOR Department: Room: Gender: M Cold Patcher: : 1955 Requested By: GARETT SMITH Order Number: [id number] Reading MD: Measurements Intervals [place] Rate: 87 P: -28 NC: 94 QRS: 146 QRSD: 100 T: 155 QT: 406 QTc: 495 Interpretive Statements SINUS RHYTHM ABNORMAL RIGHT AXIS DEVIATION QRS(T) CONTOUR ABNORMALITY CONSIDER ANTEROSEPTAL MYOCARDIAL DAMAGE CONSISTENT WITH INFERIOR INFARCT PROBABLY OLD T ABNORMALITY IN HIGH LATERAL LEADS ABNORMAL ECG RI6.01 Unconfirmed report No previous ECG available for comparison
[2019-06-04 15:09] VITALS: BP 156/71
--- NOTE | 2019-06-04 15:21 | RAD ---
Duplex ultrasound evaluation of the left upper extremity AV fistula 06/04/2019 INDICATION: Patient is a 63-year-old male with a left upper extremity radiocephalic fistula. Multiple prior interventions noted. Patient was driving home from dialysis and had an episode of bleeding from prior access site was then progressively emergency room. Manual pressure was held. Bleeding has stopped. Ultrasound was ordered. Discussion: Ultrasound evaluation of the left upper extremity fistula including color Doppler imaging with spectral analysis was performed. Overall the left upper extremity fistula appears to be grossly patent. The radiocephalic anastomosis appears to remain grossly patent. 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 The known stent spanning the antecubital fossa within the outflow vein is seen. Grossly patent. The basilic, axillary, and subclavian veins are visualized appear to be patent. Cephalic vein appears to be grossly patent. Provided images demonstrate no definitive high-grade stenosis. Multiple areas of aliasing are seen making evaluation of velocity measurements possibly inaccurate. IMPRESSION: 1. Grossly patent appearance of left upper extremity AV fistula. 2. Patient has been known to have central stenosis, most recently treated by balloon angioplasty May 20, 2019. If there is left upper extremity edema, or persistent prominent venous collaterals in the left upper chest and left upper extremity, persistent bleeding appears to be recurrent issue an fistulogram could be considered in follow-up. Electronically signed by: Bassem Tay MD (06/04/2019 3:18 PM) [id number]
--- NOTE | 2019-06-04 15:32 | PHYS DOC ---
Past Medical History Past Medical History: Anxiety, CAD, Cancer, Hypertension, Pancreatitis, Renal Disease, Other Additional Past Medical Histor: BLADDER CANCER, LUNG CANCER Past Surgical History: Appendectomy, Coronary Bypass Surgery Additional Past Surgical Histo: Dialysis shunt L) arm. cardiac stent, lens implants, POWER PORT LEFT CHEST Alcohol Use: Occasionally Drug Use: None Adult General Chief Complaint Chief Complaint: DIALYSIS PROBLEM HPI HPI 63-year-old male with multiple medical problems not the least of which is end- stage renal disease on dialysis. He has a left upper extremity AV fistula. Today, after dialysis, he got home and developed significant bleeding from the fistula site. EMS was called and when they got there they stated that they thought he lost at least a liter of blood. They placed very tight tourniquet on the left upper arm. This did control bleeding however caused a significant amount of pain. He was given 200 �g of fentanyl in route.] Review of Systems Review of Systems Constitutional: Denies fever or chills [] Eyes: Denies change in visual acuity, redness, or eye pain [] HENT: Denies nasal congestion or sore throat [] Respiratory: Denies cough or shortness of breath [] Cardiovascular: No additional information not addressed in HPI [] GI: Denies abdominal pain, nausea, vomiting, bloody stools or diarrhea [] : Denies dysuria or hematuria [] Musculoskeletal: Denies back pain or joint pain [] Integument: Bleeding from left AV fistula[] Neurologic: Denies headache, focal weakness or sensory changes [] Endocrine: Denies polyuria or polydipsia [] All other systems were reviewed and found to be within normal limits, except as documented in this note. Current Medications Current Medications Current Medications Medications (Trade) Dose Ordered Sig/Cirilo Start Time Stop Time Status Last Admin Dose Admin Gelatin (Gelfoam Size 12-7mm) 1 each STK-MED ONCE 06/04/19 12:25 06/04/19 12:26 DC Sodium Chloride (NORMAL SALINE FLUSH for STERILE FIELD) 10 ml STK-MED ONCE 06/04/19 11:28 06/04/19 11:29 DC Allergies Allergies Allergies Coded Allergies Type Severity Reaction Last Updated Verified No Known Drug Allergies 02/17/19 No Physical Exam Physical Exam Constitutional: Well developed, well nourished, no acute distress, non-toxic appearance. [] HENT: Normocephalic, atraumatic, bilateral external ears normal, oropharynx moist, no oral exudates, nose normal. [] Eyes: PERRLA, EOMI, conjunctiva normal, no discharge. [] Neck: Normal range of motion, no tenderness, supple, no stridor. [] Cardiovascular:Heart rate regular rhythm, no murmur [] Lungs & Thorax: Bilateral breath sounds clear to auscultation [] Abdomen: Bowel sounds normal, soft, no tenderness, no masses, no pulsatile masses. [] Skin: Warm, dry, no erythema, no rash. [] Back: No tenderness, no CVA tenderness. [] Extremities: Left upper Lee the AV fistula tourniquet in place which was r emoved after removal there was a slow ooze from a puncture site in the fistula. There initially was a thrill in the fistula. Surgicel was placed in a pressure was held directly over the puncture site which did ultimately controlled bleeding.. [] Neurologic: Alert and oriented X 3, normal motor function, normal sensory function, no focal deficits noted. [] Psychologic: Affect normal, judgement normal, mood normal. [] Current Patient Data Vital Signs Vital Signs Date Time Temp Pulse Resp B/P (MAP) Pulse Ox O2 Delivery O2 Flow Rate FiO2 06/04/19 14:09 78 12 145/67 (93) 100 Room Air 06/04/19 11:22 97.7 97.7 Lab Values Laboratory Tests Test 06/04/19 11:40 White Blood Count 7.3 x10^3/uL (4.0-11.0) Red Blood Count 3.23 x10^6/uL (4.30-5.70) L Hemoglobin 10.1 g/dL (13.0-17.5) L Hematocrit 29.5 % (39.0-53.0) L Mean Corpuscular Volume 92 fL (79-100) Mean Corpuscular Hemoglobin 31 pg (25-35) Mean Corpuscular Hemoglobin Concent 34 g/dL (31-37) Red Cell Distribution Width 14.6 % (11.5-14.5) H Platelet Count 331 x10^3/uL (140-400) Neutrophils (%) (Auto) 68 % (31-73) Lymphocytes (%) (Auto) 14 % (24-48) L Monocytes (%) (Auto) 13 % (0-9) H Eosinophils (%) (Auto) 3 % (0-3) Basophils (%) (Auto) 1 % (0-3) Neutrophils # (Auto) 5.0 x10^3/uL (1.8-7.7) Lymphocytes # (Auto) 1.0 x10^3/uL (1.0-4.8) Monocytes # (Auto) 1.0 x10^3/uL (0.0-1.1) Eosinophils # (Auto) 0.2 x10^3/uL (0.0-0.7) Basophils # (Auto) 0.1 x10^3/uL (0.0-0.2) Prothrombin Time 13.6 SEC (11.7-14.0) Prothrombin Time INR 1.1 (0.8-1.1) PTT 43 SEC (24-38) H Sodium Level 141 mmol/L (136-145) Potassium Level 3.6 mmol/L (3.5-5.1) Chloride Level 95 mmol/L (98-107) L Carbon Dioxide Level 34 mmol/L (21-32) H Anion Gap 12 (6-14) Blood Urea Nitrogen 15 mg/dL (8-26) Creatinine 4.4 mg/dL (0.7-1.3) H Estimated GFR (Cockcroft-Gault) 13.7 Glucose Level 174 mg/dL (70-99) H Calcium Level 9.2 mg/dL (8.5-10.1) Laboratory Tests 06/04/19 11:40 Laboratory Tests 06/04/19 11:40 EKG EKG [] Radiology/Procedures Radiology/Procedures [] Impressions: STATUS: REG ERORD. PHYSICIAN: GARETT SMITH DO REASON: dialysis fistula evaluation PROCEDURE: VENOUS UPPER EXTREMITY LEFT Duplex ultrasound evaluation of the left upper extremity AV fistula 06/04/2019 INDICATION: Patient is a 63-year-old male with a left upper extremity radiocephalic fistula. Multiple prior interventions noted. Patient was driving home from dialysis and had an episode of bleeding from prior access site was then progressively emergency room. Manual pressure was held. Bleeding has stopped. Ultrasound was ordered. Discussion: Ultrasound evaluation of the left upper extremity fistula including color Doppler imaging with spectral analysis was performed. Overall the left upper extremity fistula appears to be grossly patent. The radiocephalic anastomosis appears to remain grossly patent. 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 The known stent spanning the antecubital fossa within the outflow vein is seen. Grossly patent. The basilic, axillary, and subclavian veins are visualized appear to be patent. Cephalic vein appears to be grossly patent. Provided images demonstrate no definitive high-grade stenosis. Multiple areas of aliasing are seen making evaluation of velocity measurements possibly inaccurate. IMPRESSION: 1. Grossly patent appearance of left upper extremity AV fistula. 2. Patient has been known to have central stenosis, most recently treated by balloon angioplasty May 20, 2019. If there is left upper extremity edema, or persistent prominent venous collaterals in the left upper chest and left upper extremity, persistent bleeding appears to be recurrent issue an fistulogram could be considered in follow-up. Course & Med Decision Making Course & Med Decision Making Pertinent Labs and Imaging studies reviewed. (See chart for details) [ED course: After the tourniquets were removed the pain was immediately improved. There was a thrill in the AV fistula the ultrasound did show patent graft. Patient is safe for discharge home at this time.] Dragon Disclaimer Dragon Disclaimer This electronic medical record was generated, in whole or in part, using a voice recognition dictation system. Departure Departure Impression: Primary Impression: Dialysis AV fistula malfunction Additional Impression: Puncture wound Disposition: 01 HOME, SELF-CARE Condition: IMPROVED Referrals: RED DOMINGO (PCP) Patient Instructions: Puncture Wound Additional Instructions: Follow with dialysis as scheduled. Return to the emergency department with any new or concerning symptoms Problem Qualifiers Primary Impression: Dialysis AV fistula malfunction Encounter type: initial encounter Qualified Codes: T82.590A - Other mechanical complication of surgically created arteriovenous fistula, initial encounter GARETT SMITH DO Jun 04, 2019 15:32
[2019-06-04] MEDS ORDERED: HEPARIN PF 500 UNIT/5 ML DISP.SYRIN. IV ONE (15:48)
== END 2019-06-04 16:04 | disposition home or self-care (01) ==
LOC: ER 11:22
DX: T82.590A Other mechanical complication of surgically created arteriovenous fistula, initial encounter (principal); S41.132A Puncture wound without foreign body of left upper arm, initial encounter; I12.0 Hypertensive chronic kidney disease with stage 5 chronic kidney disease or end stage renal disease; N18.6 End stage renal disease; Z99.2 Dependence on renal dialysis; I25.10 Atherosclerotic heart disease of native coronary artery without angina pectoris; Z90.89 Acquired absence of other organs; Z95.1 Presence of aortocoronary bypass graft; Z95.5 Presence of coronary angioplasty implant and graft; Z85.51 Personal history of malignant neoplasm of bladder; Y84.1 Kidney dialysis as the cause of abnormal reaction of the patient, or of later complication, without mention of misadventure at the time of the procedure; Y92.89 Other specified places as the place of occurrence of the external cause
CPT/HCPCS: 36415; 80048; 85025; 85610; 85730; 93005; 93971; 99285-25